=== PATIENT | female | born 1955 | race Caucasian/White ===

== ENCOUNTER → 2016-11-04 | Outpatient (CLI) | payer OTHER ==
[~2016-11-04] MED LIST: CYCL5TAB PO; FLV1 PO; GLC500 PO; HYDR-5688 PO; LEVO100T84 PO; LISI-461 PO; MTH25 PO; PRED-301 PO; PRM/625 PO; SPIR1TAB72 PO
[2016-11-04 08:42] LABS: INR 0.9 (0.9-1.1); PARTIAL THROMBOPLASTIN RATIO 0.8
[2016-11-04 08:58] LABS: BLOOD UREA NITROGEN 26 mg/dl (7-18); BUN/CREATININE RATIO 23.2 (10-20); CALCIUM 8.7 mg/dl (8.5-10.1); CARBON DIOXIDE 23 mmol/L (21-32); CHLORIDE 106 mmol/L (98-107); CHOLESTEROL 299 mg/dl (0-200); GLUCOSE 109 mg/dl (70-99); POTASSIUM 3.7 mmol/L (3.5-5.1); SODIUM 143 mmol/L (136-145)
[2016-11-04 09:08] LABS: HDL CHOLESTEROL 43 mg/dl; LDL CHOLESTEROL CALCULATED 192 mg/dl; TRIGLYCERIDES 322 mg/dl (0-150); VERY LOW DENSITY LIPOPROT CALC 64 mg/dl
== END | disposition home or self-care (01) ==
LOC: C.LAB 07:55
PROVIDERS: ATTEND Internal Medicine
DX: I10 Essential (primary) hypertension (principal); D64.9 Anemia, unspecified; R23.3 Spontaneous ecchymoses; E03.9 Hypothyroidism, unspecified; E11.9 Type 2 diabetes mellitus without complications; R60.0 Localized edema

== ENCOUNTER → 2017-07-10 | Outpatient (CLI) | payer OTHER ==
[~2017-07-10] MED LIST changes: +FLX10 PO; +GABA1CAP4 PO; -HYDR-5688 PO; +LEFL10TA PO; +LEVO100T7 PO; +LEVO1TAB35 PO; +LEVO88TA3 PO; +LSN20 PO; +MELO7.5T5 PO; +NRN600 PO; +SPR25 PO; +TPRSR/50 PO
[2017-07-10 14:30] LABS: HEMATOCRIT 40.3 % (37-47); MEAN CELL VOLUME 96.4 fL (80-100); MEAN CORPUSCULAR HEMOGLOBIN 31.3 pg (25-34); MEAN CORPUSCULAR HGB CONC 32.5 g/dl (32-36); MEAN PLATELET VOLUME 11.4 fL (7.4-10.4); PLATELET COUNT 276 K/uL (130-400); RED BLOOD COUNT 4.18 M/uL (4.2-5.4); WHITE BLOOD COUNT 16.68 K/uL (4.8-10.8)
[2017-07-10 15:00] LABS: BLOOD UREA NITROGEN 22 mg/dl (7-18); CALCIUM 8.9 mg/dl (8.5-10.1); CARBON DIOXIDE 24 mmol/L (21-32); CHLORIDE 106 mmol/L (98-107); CREATININE 0.92 mg/dl (0.60-1.20); GLUCOSE 125 mg/dl (70-99); POTASSIUM 3.5 mmol/L (3.5-5.1); SODIUM 140 mmol/L (136-145)
[2017-07-10 15:11] LABS: THYROID STIMULATING HORMONE 0.567 uIu/ml (0.300-4.500)
[2017-07-10 15:12] LABS: BASO % 0.2 %; BASO ABS # 0.04 K/uL (0-0.2); COMPLETE YES; EOS % 0.8 %; IG% 1.1 %; LYMPH % 11.7 %; LYMPH ABS # 1.95 K/uL (1.2-3.4); MONO % 3.8 %; NEUT % 82.4 %
== END | disposition home or self-care (01) ==
LOC: C.LAB1850 13:10
PROVIDERS: ATTEND Nurse Practitioner Adult Health
DX: D64.9 Anemia, unspecified (principal); R31.9 Hematuria, unspecified; R00.0 Tachycardia, unspecified; R30.0 Dysuria

== ENCOUNTER → 2017-07-15 | Outpatient (CLI) | payer OTHER ==
[2017-07-15 13:37] LABS: URINE APPEARANCE TURBID (CLEAR); URINE BILIRUBIN NEG (NEG); URINE COLOR YELLOW; URINE NITRITE POS (NEG); URINE PH 5.5 (4.5-7.5); URINE SPECIFIC GRAVITY 1.021 (1.000-1.030); UROBILINOGEN NEG (NEG)
[2017-07-15 13:39] LABS: MANUAL MICROSCOPIC REQUIRED? NO; REVIEW REQ? NO
[2017-07-15 15:11] LABS: ALB/GLOB RATIO 0.5 (0.9-2); ALKALINE PHOSPHATASE 111 U/L (45-117); ALT/SGPT 40 U/L (12-78); AST/SGOT 21 U/L (15-37); BLOOD UREA NITROGEN 29 mg/dl (7-18); BUN/CREATININE RATIO 15.5 (10-20); CALCIUM 9.2 mg/dl (8.5-10.1); CARBON DIOXIDE 20 mmol/L (21-32); CHLORIDE 103 mmol/L (98-107); GLUCOSE 363 mg/dl (70-99); POTASSIUM 3.7 mmol/L (3.5-5.1); SODIUM 135 mmol/L (136-145)
[2017-07-15 15:22] LABS: BETA-HYDROXYBUTYRATE 0.65 mg/dL (0.2-2.81)
== END | disposition home or self-care (01) ==
LOC: C.LABBC 12:04
PROVIDERS: ATTEND Internal Medicine
DX: Z51.81 Encounter for therapeutic drug level monitoring (principal); E11.9 Type 2 diabetes mellitus without complications; Z79.52 Long term (current) use of systemic steroids; R30.0 Dysuria

== ENCOUNTER 2017-07-16 19:10 | Inpatient (IN) | payer OTHER ==
[~2017-07-16] VITALS: Ht 170.2 cm; Wt 88.8 kg
[~2017-07-16 19:10] MED LIST changes: -FLX10 PO; -GABA1CAP4 PO; -LEFL10TA PO; -LEVO100T7 PO; -LEVO1TAB35 PO; -LEVO88TA3 PO; -LSN20 PO; -MELO7.5T5 PO; -NRN600 PO; -SPR25 PO; -TPRSR/50 PO
[2017-07-16] MEDS ORDERED: SODIUM CHLORIDE 0.9% 1000ML 1,000 ML IV STA ×3 (19:45→21:40)
[2017-07-16] MEDS ORDERED: PIPERACILLIN/TAZOBACTAM 3.375 GM/100ML D5W IV STA (19:49)
[2017-07-16] MEDS ORDERED: ACETAMINOPHEN 500 MG TAB PO STA (19:56)
[2017-07-16] MEDS ORDERED: PIPERACILL/TAZOBAC IV 3.375 GM in DEXTROSE 5% 100ML IV ONE (20:00)
--- NOTE | 2017-07-16 20:30 | DIAGNOSTIC IMAGING REPORT ---
CHEST ONE VIEW PORTABLE HISTORY: 62 years-old Female sepsis acute fever and sepsis COMPARISON: Chest radiograph 08/22/2015 TECHNIQUE: Portable upright AP view of the chest FINDINGS: Cardiac silhouette is within normal limits. There is no pneumothorax or pleural effusion. Subsegmental linear opacities of the left lung base appear unchanged. No lobar airspace consolidation. No overt pulmonary edema. The bones appear grossly intact. IMPRESSION: Subsegmental atelectasis or scarring of the left lung base is unchanged. No acute cardiopulmonary process. The above report was generated using voice recognition software. It may contain grammatical, syntax or spelling errors. Electronically signed by: Girish Cohen M.D. 07/16/2017 8:29 PM Dictated Date/Time: 07/16/2017 8:28 PM
[2017-07-16 20:45] LABS: HEMATOCRIT 33.9 % (37-47); MEAN CELL VOLUME 93.1 fL (80-100); MEAN CORPUSCULAR HEMOGLOBIN 29.4 pg (25-34); MEAN CORPUSCULAR HGB CONC 31.6 g/dl (32-36); MEAN PLATELET VOLUME 10.1 fL (7.4-10.4); PLATELET COUNT 143 K/uL (130-400); RED BLOOD COUNT 3.64 M/uL (4.2-5.4); WHITE BLOOD COUNT 11.11 K/uL (4.8-10.8)
[2017-07-16] MEDS ORDERED: LEVO88TA3 PO (20:53)
[2017-07-16] MEDS ORDERED: FLX10 PO (20:53)
[2017-07-16] MEDS ORDERED: LSN20 PO (20:53)
[2017-07-16] MEDS ORDERED: NRN600 PO (20:53)
[2017-07-16] MEDS ORDERED: SPR25 PO (20:53)
[2017-07-16] MEDS ORDERED: GABA1CAP4 PO (20:53)
[2017-07-16] MEDS ORDERED: LEVO100T7 PO (20:53)
[2017-07-16] MEDS ORDERED: MTH25 PO (20:53)
[2017-07-16] MEDS ORDERED: LEFL10TA PO (20:53)
[2017-07-16] MEDS ORDERED: MELO7.5T5 PO (20:53)
[2017-07-16] MEDS ORDERED: TPRSR/50 PO (20:53)
[2017-07-16] MEDS ORDERED: PRED-301 PO (20:53)
[2017-07-16 20:55] LABS: URINE APPEARANCE TURBID (CLEAR); URINE BILIRUBIN NEG (NEG); URINE COLOR YELLOW; URINE EPITHELIAL CELL AUTO 20-30 /lpf (0-5); URINE NITRITE POS (NEG); URINE PH 5.5 (4.5-7.5); URINE SPECIFIC GRAVITY 1.014 (1.000-1.030); UROBILINOGEN NEG (NEG)
[2017-07-16 21:00] LABS: PROTHROMBIN TIME (PATIENT) 10.6 SECONDS (9.0-12.0)
[2017-07-16 21:02] LABS: MANUAL MICROSCOPIC REQUIRED? NO; REVIEW REQ? NO
--- NOTE | 2017-07-16 21:06 | DIAGNOSTIC IMAGING REPORT ---
HEAD WITHOUT CONTRAST (CT) CLINICAL HISTORY: 62 years-old Female with headache. Acute headache. TECHNIQUE: Multiple axial CT images of the head were obtained without contrast. A dose lowering technique was utilized adhering to the principles of ALARA. CT DOSE: 537.48 mGy.cm COMPARISON: None. FINDINGS: No acute intracranial hemorrhage, midline shift, mass, large territorial ischemia or abnormal extra-axial collection. Senescent calcifications of the lentiform nuclei noted. The calvarium is intact. The mastoid air cells, and middle ear cavities are clear. Moderate mucoperiosteal thickening of the right maxillary sinus with mild ethmoid sinus disease is partially imaged. Soft tissues are unremarkable. IMPRESSION: 1. No acute intracranial abnormality identified. 2. Moderate mucoperiosteal thickening of the right maxillary sinus and mild ethmoid sinus disease. The above report was generated using voice recognition software. It may contain grammatical, syntax or spelling errors. Electronically signed by: Girish Cohen M.D. 07/16/2017 9:05 PM Dictated Date/Time: 07/16/2017 9:02 PM
[2017-07-16 21:09] LABS: ALT/SGPT 40 U/L (12-78); BLOOD UREA NITROGEN 30 mg/dl (7-18); BUN/CREATININE RATIO 14.8 (10-20); CALCIUM 8.7 mg/dl (8.5-10.1); CARBON DIOXIDE 22 mmol/L (21-32); CHLORIDE 104 mmol/L (98-107); GLUCOSE 213 mg/dl (70-99); POTASSIUM 3.7 mmol/L (3.5-5.1); SODIUM 135 mmol/L (136-145)
[2017-07-16 21:20] LABS: ALKALINE PHOSPHATASE 112 U/L (45-117); AST/SGOT 25 U/L (15-37)
--- NOTE | 2017-07-16 21:21 | DIAGNOSTIC IMAGING REPORT ---
ABD/PELVIS NO IV OR ORAL CONT HISTORY: 62 years-old Female recent uti, weakness acute weakness with recent urinary tract infection. COMPARISON: None available TECHNIQUE: Multiple axial CT images of the abdomen and pelvis were obtained without contrast. A dose lowering technique was used consistent with the principals of NICHOL. FINDINGS: Linear subsegmental bibasilar opacities suggest atelectasis/scarring. No pneumoperitoneum. Imaged inferior cardiac chambers are mildly enlarged with coronary arterial calcifications noted. Hepatomegaly with hepatic steatosis noted. The spleen, gallbladder and left adrenal gland are within normal limits. Punctate calcification of the lateral limb right adrenal gland suggests prior infection or hemorrhage. There is moderate diffuse pancreatic atrophy. Moderate nonspecific stranding surrounds the bilateral kidneys appears symmetric. Mild cortical thinning is seen to the left kidney. No renal calculi or hydronephrosis identified. There are phleboliths present within the pelvis. Urinary bladder is unremarkable. Prior hysterectomy. Moderate atherosclerotic plaquing of the abdominal aorta. No bulky retroperitoneal adenopathy. There is no bowel obstruction or focal bowel wall thickening. Colonic diverticulosis without diverticulitis. The appendix appears normal. Soft tissues are unremarkable. Severe multilevel facet arthropathy of the lower lumbar spine. The bones are osteopenic. IMPRESSION: 1. Moderate nonspecific perinephric inflammatory stranding without renal calculi or hydronephrosis. 2. No bowel obstruction or pneumoperitoneum. Normal appearance of the appendix. 3. Colonic diverticulosis without diverticulitis. 4. Hepatomegaly with hepatic steatosis. The above report was generated using voice recognition software. It may contain grammatical, syntax or spelling errors. Electronically signed by: Girish Cohen M.D. 07/16/2017 9:20 PM Dictated Date/Time: 07/16/2017 9:15 PM
[2017-07-16 21:53] LABS: BASO % 0.1 %; BASO ABS # 0.01 K/uL (0-0.2); COMPLETE YES; DOHLE BODIES 1+; EOS % 0.7 %; IG% 0.6 %; LYMPH % 5.4 %; MONO % 2.4 %; NEUT % 90.8 %; TOXIC GRANULATION 1+
--- NOTE | 2017-07-16 22:12 | EMERGENCY ROOM VISIT NOTE ---
History Report prepared by Stephany: Ulises Helm Under the Supervision of: Dr. Rosetta Kang D.O. First contact with patient: 19:21 Chief Complaint: OTHER COMPLAINT Stated Complaint: ILLNESS/POSS SEPSIS History of Present Illness The patient is a 62 year old female who presents to the Emergency Room by EMS with complaints of waxing and waning disorientation beginning six days ago. She was recently diagnosed with a UTI and was started on Macrobid six days ago. She states that she began feeling confused and weak a few days after starting the antibiotic. The patient states that she was seen by her PCP yesterday and was switched to Cipro. She states that her electrolytes were very abnormal yesterday , her blood sugar was in the 300's, and she was very hypertensive at this time. The patient's family notes that the patient was confused again when she saw her PCP yesterday. The patient notes that she has a history of rheumatoid arthritis for which she is chronically on Prednisone. She currently complains of headaches , chills and finger numbness. She states that her headaches began three days ago. The patient denies any nausea, abdominal pain, or back pain. Source of History: patient Onset: Six days ago Quality: other (disorientation) Timing: waxes/wanes Associated Symptoms: + chills, + headache, + numbness (fingers), No chest pain, No nausea, No abdominal pain Review of Systems See HPI for pertinent positives & negatives. A total of 10 systems reviewed and were otherwise negative. Past Medical & Surgical Medical Problems: (1) Left knee DJD (2) Rheumatoid arthritis Family History Cancer Hypertension Social History Smoking Status: Never Smoker Alcohol Use: none Drug Use: none Marital Status: Occupation Status: employed Current/Historical Medications Scheduled Cyclobenzaprine HCl (Cyclobenzaprine HCl), 1 TAB PO DAILY Folic Acid (Folic Acid), 1 MG PO 6XWK Gabapentin (Gabapentin), 1 CAP PO DAILY Gabapentin (Gabapentin), 1 TAB PO DAILY Leflunomide (Arava), 1 TAB PO DAILY Levothyroxine Sodium (Levothyroxine Sodium), 1 TAB PO Q2D Levothyroxine Sodium (Levothyroxine Sodium), 1 TAB PO Q2D Lisinopril (Lisinopril), 1 TAB PO DAILY Meloxicam (Mobic), 1 TAB PO DAILY Metformin HCl (Metformin HCl), 500 MG PO BID Methotrexate (Methotrexate), 1 DOSE PO UD Metoprolol Succinate (Metoprolol Succinate ER), 1 DOSE PO UD Prednisone (Prednisone), 1 TAB PO BID Spironolactone (Spironolactone), 1 TAB PO DAILY Allergies Coded Allergies: Tetracycline (Unverified Allergy, Severe, RASH ON FACE, 07/16/17) Statins (Verified Adverse Reaction, Intermediate, LE edema, 07/16/17) Physical Exam Vital Signs Date Time Temp Pulse Resp B/P (MAP) Pulse Ox O2 Delivery O2 Flow Rate FiO2 07/16/17 22:16 37.4 123 20 119/56 97 Room Air 07/16/17 21:18 38.4 126 20 136/73 Room Air 07/16/17 19:43 137 07/16/17 19:21 39.4 136 22 173/95 93 Room Air Physical Exam GENERAL: alert, ill-appearing, well nourished, no distress, non-toxic EYE EXAM: normal conjunctiva, PERRL and EOM's grossly intact OROPHARYNX: no exudate, no erythema, lips, buccal mucosa, and tongue normal and mucous membranes are dry. NECK: supple, no nuchal rigidity, no adenopathy, non-tender LUNGS: Clear to auscultation. Normal chest wall mechanics HEART: no murmurs, S1 normal and S2 normal ABDOMEN: abdomen soft, non-tender, normo-active bowel sounds, no masses, no rebound or guarding. BACK: Back is symmetrical on inspection and there is no deformity, no midline tenderness, no CVA tenderness. SKIN: no rashes and no bruising UPPER EXTREMITIES: upper extremities are grossly normal. LOWER EXTREMITIES: No pitting edema. NEURO EXAM: Normal sensorium, cranial nerves II-XII grossly intact, normal speech, no gross weakness of arms, no gross weakness of legs. Medical Decision & Procedures ER Provider Diagnostic Interpretation: Radiology results have been interpreted by the radiologist and reviewed by me. HEAD WITHOUT CONTRAST (CT) FINDINGS: No acute intracranial hemorrhage, midline shift, mass, large territorial ischemia or abnormal extra-axial collection. Senescent calcifications of the lentiform nuclei noted. The calvarium is intact. The mastoid air cells, and middle ear cavities are clear. Moderate mucoperiosteal thickening of the right maxillary sinus with mild ethmoid sinus disease is partially imaged. Soft tissues are unremarkable. IMPRESSION: 1. No acute intracranial abnormality identified. 2. Moderate mucoperiosteal thickening of the right maxillary sinus and mild ethmoid sinus disease. The above report was generated using voice recognition software. It may contain grammatical, syntax or spelling errors. Electronically signed by: Girish Cohen M.D. 07/16/2017 9:05 PM ABD/PELVIS NO IV OR ORAL CONT FINDINGS: Linear subsegmental bibasilar opacities suggest atelectasis/scarring. No pneumoperitoneum. Imaged inferior cardiac chambers are mildly enlarged with coronary arterial calcifications noted. Hepatomegaly with hepatic steatosis noted. The spleen, gallbladder and left adrenal gland are within normal limits. Punctate calcification of the lateral limb right adrenal gland suggests prior infection or hemorrhage. There is moderate diffuse pancreatic atrophy. Moderate nonspecific stranding surrounds the bilateral kidneys appears symmetric. Mild cortical thinning is seen to the left kidney. No renal calculi or hydronephrosis identified. There are phleboliths present within the pelvis. Urinary bladder is unremarkable. Prior hysterectomy. Moderate atherosclerotic plaquing of the abdominal aorta. No bulky retroperitoneal adenopathy. There is no bowel obstruction or focal bowel wall thickening. Colonic diverticulosis without diverticulitis. The appendix appears normal. Soft tissues are unremarkable. Severe multilevel facet arthropathy of the lower lumbar spine. The bones are osteopenic. IMPRESSION: 1. Moderate nonspecific perinephric inflammatory stranding without renal calculi or hydronephrosis. 2. No bowel obstruction or pneumoperitoneum. Normal appearance of the appendix. 3. Colonic diverticulosis without diverticulitis. 4. Hepatomegaly with hepatic steatosis. The above report was generated using voice recognition software. It may contain grammatical, syntax or spelling errors. Electronically signed by: Girish Cohen M.D. 07/16/2017 9:20 PM CHEST ONE VIEW PORTABLE FINDINGS: Cardiac silhouette is within normal limits. There is no pneumothorax or pleural effusion. Subsegmental linear opacities of the left lung base appear unchanged. No lobar airspace consolidation. No overt pulmonary edema. The bones appear grossly intact. IMPRESSION: Subsegmental atelectasis or scarring of the left lung base is unchanged. No acute cardiopulmonary process. The above report was generated using voice recognition software. It may contain grammatical, syntax or spelling errors. Electronically signed by: Girish Cohen M.D. 07/16/2017 8:29 PM Laboratory Results Test 07/16/17 20:11 07/16/17 20:34 07/16/17 20:35 Dohle Bodies 1+ Prothrombin Time 10.6 SECONDS (9.0-12.0) Prothromb Time International Ratio 1.0 (0.9-1.1) Total Bilirubin 0.5 mg/dl (0.2-1) Direct Bilirubin 0.3 mg/dl (0-0.2) Aspartate Amino Transf (AST/SGOT) 25 U/L (15-37) Alanine Aminotransferase (ALT/SGPT) 40 U/L (12-78) Alkaline Phosphatase 112 U/L (45-117) Troponin I < 0.015 ng/ml (0-0.045) Total Protein 6.6 gm/dl (6.4-8.2) Albumin 2.2 gm/dl (3.4-5.0) Thyroid Stimulating Hormone (TSH) 2.030 uIu/ml (0.300-4.500) Urine Color YELLOW Urine Appearance TURBID (CLEAR) Urine pH 5.5 (4.5-7.5) Urine Specific [place] 1.014 (1.000-1.030) Urine Protein 2+ (NEG) Urine Glucose (UA) NEG (NEG) Urine Ketones NEG (NEG) Urine Occult Blood 3+ (NEG) Urine Nitrite POS (NEG) Urine Bilirubin NEG (NEG) Urine Urobilinogen NEG (NEG) Urine Leukocyte Esterase LARGE (NEG) Urine WBC (Auto) >30 /hpf (0-5) Urine RBC (Auto) 10-30 /hpf (0-4) Urine Hyaline Casts (Auto) 0 /lpf (0-5) Urine Epithelial Cells (Auto) 20-30 /lpf (0-5) Urine Bacteria (Auto) 4+ (NEG) Bedside Lactic Acid Venous 1.56 mmol/L (0.90-1.70) Laboratory results per my review. Medications Administered Medications (Trade) Dose Ordered Sig/Melissa Route Start Time Stop Time Status Last Admin Dose Admin Sodium Chloride 1,000 ml @ 999 mls/hr Q1H1M STAT IV 07/16/17 19:45 07/16/17 20:45 DC 07/16/17 19:45 999 MLS/HR Sodium Chloride 1,000 ml @ 999 mls/hr Q1H1M STAT IV 07/16/17 19:49 07/16/17 20:49 DC 07/16/17 21:08 999 MLS/HR Piperacillin Sod/ Tazobactam Sod 3.375 gm/Dextrose 115 ml @ 230 mls/hr NOW ONCE IV 07/16/17 20:00 07/16/17 20:29 DC 07/16/17 21:08 230 MLS/HR Acetaminophen (Tylenol Tab) 1,000 mg NOW STAT PO 07/16/17 19:56 07/16/17 19:57 DC 07/16/17 20:42 1,000 MG Sodium Chloride 1,000 ml @ 999 mls/hr Q1H1M STAT IV 07/16/17 21:40 07/16/17 22:40 DC 07/16/17 21:40 999 MLS/HR ECG Indication: altered mental status Rate (beats per minute): 138 Rhythm: sinus tachycardia Findings: PAC (occasional), no acute ischemic change, no ectopy, other (Normal axis. Normal intervals. ) ED Course 1934: The patient was evaluated in room B7. A complete history and physical exam was performed. 1944: Ordered Sodium Chloride 1000 ml @ 999 mls/hr IV, Sodium Chloride 1000 ml @ 999 mls/hr IV. 1955: Ordered Tylenol Tab 1000 mg PO. 1999: Ordered Piperacillin Sod/Tazobactam Sod 3.375 gm/Dextrose 115 mL @ 230 mL/ hr IV. 2139: Ordered Sodium Chloride 1000 ml @ 999 mls/hr IV. 2205: Upon reevaluation, the patient is resting comfortably. I discussed the findings and the treatment plan with the patient. She expresses agreement and understanding. I spoke with Dr. Jane of the [facility] Hospitalist Service. The patient will be evaluated for further management. Medical Decision Differential diagnosis: Etiologies such as sepsis, UTI, pneumonia, metabolic, electrolyte abnormalities , cardiac sources, intracerebral event, toxicologic, neurologic, as well as others were entertained. Review of EMR shows urine culture from 07/15/2017 grew out E. Coli. No sensitivities yet. Pt likely with partially or inadequately treated outpt UTI which progressed leading to presentation of likely sepsis. Pt cultured and started on IV antibiotics. Lactate and WBC reassuring. Pt felt improved and HR improved with IVF. Pt not hypotensive. Hyperglycemia likely secondary to stress of infection, no DKA. ARF likely from UTI and sepsis, no evidence of obstructive process on CT. No evidence of fulminant pyelonephritis. Pt aware of all results. No other source of infection found on CXR and no other GI symptoms. Medication Reconcilliation Current Medication List: was personally reviewed by me Blood Pressure Screening Patient's blood pressure: Elevated blood pressure Blood pressure disposition: Referred to PCP Consults Time Called: 2204 Consulting Physician: Dr. Lucinda GRANADOS Returned Call: [phone] I reviewed the patient's case with Lucinda Holbrook. DWAYNE will evaluate the patient for further management. Impression Primary Impression: Sepsis Additional Impressions: UTI (urinary tract infection) Acute renal failure Hyperglycemia Critical Care I have personally spent 35 minutes of critical care time in the direct management of this patient. This includes bedside care, interpretation of diagnostic studies, and testing, discussion with consultants, patient, and family members, and other required patient management activities. This 35 minutes is in excess of all separately billable procedures. Scribe Attestation The scribe's documentation has been prepared under my direction and personally reviewed by me in its entirety. I confirm that the note above accurately reflects all work, treatment, procedures, and medical decision making performed by me. Departure Information Dispostion Being Evaluated By Hospitalist Referrals Corby Arzola M.D. (PCP) Patient Instructions My [facility] Problem Qualifiers Primary Impression: Sepsis Sepsis type: sepsis due to unspecified organism Qualified Codes: A41.9 - Sepsis, unspecified organism Additional Impressions: UTI (urinary tract infection) Urinary tract infection type: acute cystitis Hematuria presence: with hematuria Qualified Codes: N30.01 - Acute cystitis with hematuria Acute renal failure Acute renal failure type: unspecified Qualified Codes: N17.9 - Acute kidney failure, unspecified
[2017-07-16] MEDS ORDERED: POLYETHYLENE (MIRALAX) 17 GM PACK PO PRN (22:45)
[2017-07-16] MEDS ORDERED: ONDANSETRON INJ 2 MG/ML 2 ML VIAL IV PRN (22:45)
[2017-07-16] MEDS ORDERED: ALUMINUM/MAGNESIUM/SIMETH (MAALOX MAX) 30 ML UDC PO PRN (22:45)
[2017-07-16] MEDS ORDERED: MAGNESIUM HYDROXIDE SUSP 30 ML UDC PO PRN (22:45)
--- NOTE | 2017-07-16 22:54 | Family Medicine Progress Note ---
Progress Note Date of Service Jul 16, 2017.
--- NOTE | 2017-07-16 22:54 | History and Physical ---
History & Physical Date & Time of Service: Jul 16, 2017 at 22:54 Chief Complaint: Illness/Poss Sepsis Primary Care Physician: Corby Arzola M.D. History of Present Illness Source: patient The patient is a 62-year-old lady who has a previous history of rheumatoid arthritis, type 2 diabetes, hypertension, hypothyroidism and peripheral neuropathy who presents to the emergency department for worsening urinary symptoms. The patient states that she was diagnosed with urinary tract infection one week ago. She was prescribed Macrobid. However she states that she did not take it as directed because she states that she felt "loopy" and reported getting a headache with the Macrobid. She did go back to see her PCP 2 days for follow- up and had an alternative antibiotic prescribed, but she states that she never went to pick it up. Since then she's had increasing headaches, dizziness, lightheadedness. She does note urinary frequency and small flecks of blood in the urine, but denies any overt dysuria. She does report a very mild suprapubic pressure type sensation, that does not radiate to the back of the flanks. She denies any GI symptoms including nausea, vomiting, diarrhea or constipation. Her appetite has been significantly lower for the past 1-2 days. She does report chills and rigors, but has not measured a temperature. On arrival in the ED, she was found to be both tachycardic as well as febrile. She was given 2 L normal saline bolus, and has a third liter running currently. She was given a dose of IV Zosyn, with blood cultures being drawn prior to administration of the antibiotic. She states that this time that she is feeling slightly better. She is being admitted for evaluation management of sepsis secondary to urinary tract infection. Past Medical/Surgical History Rheumatoid arthritis Hypertension Diabetes Hypothyroidism Peripheral neuropathy Surgery History of left knee replacement Family History Cancer Hypertension Type 2 diabetes Lymphoma Social History Smoking Status: Never Smoker Smokeless Tobacco Use: No Alcohol Use: none Drug Use: none Marital Status: Housing status: lives with significant other Occupational Status: employed Immunizations History of Influenza Vaccine: Unknown History of Tetanus Vaccine?: Unknown History of Pneumococcal: Unknown History of Hepatitis B Vaccine: Unknown Multi-Drug Resistant Organisms History of MDRO: No Allergies Coded Allergies: Tetracycline (Unverified Allergy, Severe, RASH ON FACE, 07/16/17) Statins (Verified Adverse Reaction, Intermediate, LE edema, 07/16/17) Home Medications Scheduled Cyclobenzaprine HCl (Cyclobenzaprine HCl), 1 TAB PO DAILY Folic Acid (Folic Acid), 1 MG PO 6XWK Gabapentin (Gabapentin), 1 CAP PO DAILY Gabapentin (Gabapentin), 1 TAB PO DAILY Leflunomide (Arava), 1 TAB PO DAILY Levothyroxine Sodium (Levothyroxine Sodium), 1 TAB PO Q2D Levothyroxine Sodium (Levothyroxine Sodium), 1 TAB PO Q2D Lisinopril (Lisinopril), 1 TAB PO DAILY Meloxicam (Mobic), 1 TAB PO DAILY Metformin HCl (Metformin HCl), 500 MG PO BID Methotrexate (Methotrexate), 1 DOSE PO UD Metoprolol Succinate (Metoprolol Succinate ER), 1 DOSE PO UD Prednisone (Prednisone), 1 TAB PO BID Spironolactone (Spironolactone), 1 TAB PO DAILY Review of Systems A 10 point review of systems was negative unless stated above. Physical Exam Vital Signs Date Time Temp Pulse Resp B/P (MAP) Pulse Ox O2 Delivery O2 Flow Rate FiO2 07/16/17 22:16 37.4 123 20 119/56 97 Room Air 07/16/17 21:18 38.4 126 20 136/73 Room Air 07/16/17 19:43 137 07/16/17 19:21 39.4 136 22 173/95 93 Room Air General Appearance: WD/WN, no apparent distress, + mild distress Eyes: normal inspection, EOMI ENT: hearing grossly normal, pharynx normal Neck: supple, no adenopathy, no JVD Respiratory/Chest: lungs clear, no respiratory distress Cardiovascular: regular rate, rhythm, no gallop, no murmur Abdomen/GI: normal bowel sounds, non tender, soft, + pertinent finding (mild pressure to suprapubic palpation) Back: no CVA tenderness, no muscle spasm Extremities/Musculoskelatal: no calf tenderness, no pedal edema Neurologic/Psych: alert, normal mood/affect, oriented x 3 Skin: normal color, warm/dry, no rash Lymphatic: no adenopathy Diagnostics Laboratory Results Results Past 24 Hours Test 07/16/17 19:20 07/16/17 20:11 07/16/17 20:34 07/16/17 20:35 Range/Units Bedside Glucose 204 70-90 mg/dl White Blood Count 11.11 4.8-10.8 K/uL Red Blood Count 3.64 4.2-5.4 M/uL Hemoglobin 10.7 12.0-16.0 g/dL Hematocrit 33.9 37-47 % Mean Corpuscular Volume 93.1 80-100 fL Mean Corpuscular Hemoglobin 29.4 25-34 pg Mean Corpuscular Hemoglobin Concent 31.6 32-36 g/dl Platelet Count 143 130-400 K/uL Mean Platelet Volume 10.1 7.4-10.4 fL Neutrophils (%) (Auto) 90.8 % Lymphocytes (%) (Auto) 5.4 % Monocytes (%) (Auto) 2.4 % Eosinophils (%) (Auto) 0.7 % Basophils (%) (Auto) 0.1 % Neutrophils # (Auto) 10.08 1.4-6.5 K/uL Lymphocytes # (Auto) 0.60 1.2-3.4 K/uL Monocytes # (Auto) 0.27 0.11-0.59 K/uL Eosinophils # (Auto) 0.08 0-0.5 K/uL Basophils # (Auto) 0.01 0-0.2 K/uL RDW Standard Deviation 51.2 36.4-46.3 fL RDW Coefficient of Variation 15.2 11.5-14.5 % Immature Granulocyte % (Auto) 0.6 % Immature Granulocyte # (Auto) 0.07 0.00-0.02 K/uL Toxic Granulation 1+ Dohle Bodies 1+ Prothrombin Time 10.6 9.0-12.0 SECONDS Prothromb Time International Ratio 1.0 0.9-1.1 Sodium Level 135 136-145 mmol/L Potassium Level 3.7 3.5-5.1 mmol/L Chloride Level 104 98-107 mmol/L Carbon Dioxide Level 22 21-32 mmol/L Anion Gap 9.0 3-11 mmol/L Blood Urea Nitrogen 30 7-18 mg/dl Creatinine 2.00 0.60-1.20 mg/dl Est Creatinine Clear Calc Drug Dose 33.1 ml/min Estimated GFR () 30.2 Estimated GFR (Non- 26.1 BUN/Creatinine Ratio 14.8 10-20 Random Glucose 213 70-99 mg/dl Calcium Level 8.7 8.5-10.1 mg/dl Total Bilirubin 0.5 0.2-1 mg/dl Direct Bilirubin 0.3 0-0.2 mg/dl Aspartate Amino Transf (AST/SGOT) 25 15-37 U/L Alanine Aminotransferase (ALT/SGPT) 40 12-78 U/L Alkaline Phosphatase 112 45-117 U/L Troponin I < 0.015 0-0.045 ng/ml Total Protein 6.6 6.4-8.2 gm/dl Albumin 2.2 3.4-5.0 gm/dl Thyroid Stimulating Hormone (TSH) 2.030 0.300-4.500 uIu/ml Urine Color YELLOW Urine Appearance TURBID CLEAR Urine pH 5.5 4.5-7.5 Urine Specific [place] 1.014 1.000-1.030 Urine Protein 2+ NEG Urine Glucose (UA) NEG NEG Urine Ketones NEG NEG Urine Occult Blood 3+ NEG Urine Nitrite POS NEG Urine Bilirubin NEG NEG Urine Urobilinogen NEG NEG Urine Leukocyte Esterase LARGE NEG Urine WBC (Auto) >30 0-5 /hpf Urine RBC (Auto) 10-30 0-4 /hpf Urine Hyaline Casts (Auto) 0 0-5 /lpf Urine Epithelial Cells (Auto) 20-30 0-5 /lpf Urine Bacteria (Auto) 4+ NEG Bedside Lactic Acid Venous 1.56 0.90-1.70 mmol/L Microbiology Results 07/16/17 Blood Culture, Received Pending 07/16/17 Blood Culture, Received Pending 07/16/17 Urine Culture, Received Pending Diagnostic Radiology ABD/PELVIS NO IV OR ORAL CONT HISTORY: 62 years-old Female recent uti, weakness acute weakness with recent urinary tract infection. COMPARISON: None available TECHNIQUE: Multiple axial CT images of the abdomen and pelvis were obtained without contrast. A dose lowering technique was used consistent with the principals of ALARA. FINDINGS: Linear subsegmental bibasilar opacities suggest atelectasis/scarring. No pneumoperitoneum. Imaged inferior cardiac chambers are mildly enlarged with coronary arterial calcifications noted. Hepatomegaly with hepatic steatosis noted. The spleen, gallbladder and left adrenal gland are within normal limits. Punctate calcification of the lateral limb right adrenal gland suggests prior infection or hemorrhage. There is moderate diffuse pancreatic atrophy. Moderate nonspecific stranding surrounds the bilateral kidneys appears symmetric. Mild cortical thinning is seen to the left kidney. No renal calculi or hydronephrosis identified. There are phleboliths present within the pelvis. Urinary bladder is unremarkable. Prior hysterectomy. Moderate atherosclerotic plaquing of the abdominal aorta. No bulky retroperitoneal adenopathy. There is no bowel obstruction or focal bowel wall thickening. Colonic diverticulosis without diverticulitis. The appendix appears normal. Soft tissues are unremarkable. Severe multilevel facet arthropathy of the lower lumbar spine. The bones are osteopenic. IMPRESSION: 1. Moderate nonspecific perinephric inflammatory stranding without renal calculi or hydronephrosis. 2. No bowel obstruction or pneumoperitoneum. Normal appearance of the appendix. 3. Colonic diverticulosis without diverticulitis. 4. Hepatomegaly with hepatic steatosis. The above report was generated using voice recognition software. It may contain grammatical, syntax or spelling errors. Electronically signed by: Girish Cohen M.D. 07/16/2017 9:20 PM Dictated Date/Time: 07/16/2017 9:15 PM Impression Assessment and Plan 62-year-old female, with sepsis secondary to a UTI this failed outpatient therapy. In addition to that she has an AISHWARYA, for both urinary tract infection as well as dehydration. She'll be admitted for intravenous IV antibiotics, fluid resuscitation until blood cultures and urine cultures are available Sepsis 2/2 UTI with failed outpatient therapy. Our plan for her is as follows Sepsis in the setting of urinary tract infection - Lactate 1.5 on arrival; repeat in 6 hours - 3 L NSS given in the ED - Continue with NSS + 20 KCl at 150 ml/hr overnight - Blood and cultures pending - Vancomycin + Zosyn overnight, pending cultures Rheumatoid Arthritis - Continue Methotrexate q Saturdays - Continue Leflunomide - Prednisone 5 mg chronically: this has been held Stress dose steroids given: Hydrocortisone 50 mg TID x 3 days Hypertension - Patient apparently started on Toprol XL 50 mg daily 1 day ago for blood pressure; this was in 2 days ago at her PCPs office - Will hold in acute setting of sepsis and monitor BP overnight; can be added in as needed if blood pressure is not controlled - Hold Lisinopril due to AISHWARYA - Hold Spironolactone due to AISHWARYA Hypothyroidism - Continue Levothyroxine Type 2 Diabetes Mellitus - Hold Metformin - Insulin SSI with AC/HS checks - Type 2 diabetic diet DVT Prophylaxis - SCD Knee, SHANNON Hose - Heparin 5000 U s.c. TID Code Status - Level I Full Code Disposition - Telemetry Attending Addendum: I have physically seen and examined this patient, have directed the resident's medical activities, and agree with the H&P as noted above with the following exceptions as noted. The patient is awake, alert and oriented 3, well-developed and well-nourished , normocephalic and atraumatic, lying in bed and in no acute distress. HEENT--PERRL, EOMI, mucous membranes and oropharynx dry. Neck--supple, no JVD or bruits, thyroid normal, trachea midline, no adenopathy. Heart--normal S1 and S2, no extra beats, no murmurs, rubs or gallops. Lungs--clear bilaterally with good air movement, no respiratory distress, no accessory muscle use. Abdomen--normal bowel sounds and soft, mild suprapubic tenderness, nondistended , no hernias or masses, no organomegaly. Extremities--no cyanosis, clubbing or edema. There are good distal pulses b/l. Dermatologic--normal skin turgor, normal color, warm and dry, no abnormal lymph nodes, no rash. Neurologic--cranial nerves II through XII grossly intact. Rheumatologic--normal range of motion, nontender, muscles and joints. Psychiatric--normal affect. Assessment and Plan: Sepsis secondary to urinary tract infection-- Vancomycin IV and Zosyn IV. Follow urine culture and sensitivities. Received 3 L normal saline in the ED. NSS with KCl 20 mEq at 150 ML's per hour. Rheumatoid arthritis-- Patient is told to hold methotrexate which she is due for this Friday, and discuss with her board runner today to resume. Continue leflunomide. Hold prednisone. Hydrocortisone 50 mg IV 3 times a day for stress dose. Hypertension-- hold metoprolol succinate, lisinopril and spironolactone. Diabetes mellitus-- Hold metformin Place on Accu-Cheks before meals and at bedtime with NovoLog coverage per scale. Level of Care Telemetry Advanced Directives Existing Advance Directive: No Existing Living Will: No Existing Power of Mitering Machine Operator: No Resuscitation Status FULL RESUSCITATION VTE Prophylaxis VTE Risk Assessment Done? Y/N: Yes Risk Level: Moderate Given or contraindicated: Unfractionated heparin SQ Social Service Consult None Apply
[2017-07-17] VITALS (10 sets, daily range): BP systolic 133–169; BP diastolic 68–97; PULSE 88–102; TEMP 36.5–37.5; O2SAT 92–97; Ht 170.2 cm; Wt 88.8 kg
[2017-07-17] MEDS ORDERED: VANCOMYCIN INJ 2,000 MG in SODIUM CHLORIDE 0.9% 500ML 500 ML IV SCH ×2
[2017-07-17] MEDS: NSS + 20MEQ KCL 1000ML 1,000 ML IV SCH ×4 (00:07→20:09)
[2017-07-17] MEDS: HYDROCORTISONE IV 50 MG in SYRINGE 0 ML IV SCH ×2 (00:08→09:06)
[2017-07-17] MEDS ORDERED: VANCOMYCIN CONSULT ACTIVE PRN (01:15)
[2017-07-17] MEDS ORDERED: PIPERACILL/TAZOBAC CONSULT ACTIVE PRN (01:15)
[2017-07-17] MEDS ORDERED: PIPERACILL/TAZOBAC IV 3.375 GM in DEXTROSE 5% 100ML 100 ML IV SCH (02:00)
[2017-07-17] MEDS: HEPARIN SOD 5000 UNIT/0.5 ML CARP SQ SCH ×3 (06:00→20:13)
[2017-07-17] MEDS ORDERED: LEVOTHYROXINE 88 MCG TAB PO SCH (06:30)
[2017-07-17 07:36] LABS: HEMATOCRIT 31.1 % (37-47); MEAN CORPUSCULAR HEMOGLOBIN 30.2 pg (25-34); MEAN CORPUSCULAR HGB CONC 32.2 g/dl (32-36); MEAN PLATELET VOLUME 9.9 fL (7.4-10.4); PLATELET COUNT 105 K/uL (130-400); RED BLOOD COUNT 3.31 M/uL (4.2-5.4); WHITE BLOOD COUNT 11.05 K/uL (4.8-10.8)
[2017-07-17] MEDS: CYCLOBENZAPRINE HCL 10 MG TAB PO SCH (07:51)
[2017-07-17] MEDS: GABAPENTIN 300 MG CAP PO SCH ×2 (07:52→08:10)
[2017-07-17 08:11] LABS: BUN/CREATININE RATIO 14.6 (10-20); CREATININE 1.9 mg/dl (0.60-1.20); POTASSIUM 4.6 mmol/L (3.5-5.1)
[2017-07-17 08:22] LABS: BETA-HYDROXYBUTYRATE 4.74 mg/dL (0.2-2.81)
--- NOTE | 2017-07-17 08:28 | Family Medicine Progress Note ---
Progress Note Date of Service Jul 17, 2017. Subjective Pt evaluation today including: conversation w/ patient, physical exam, chart review, review of studies, review of inpatient medication list Pain: No pain reported PO Intake: Tolerating PO intake Voiding: no voiding problems Ms. Champagne reports that she is feeling well today. She denies any abdominal or flank pain, dysuria, or urgency. She stated that she had what she describes as abdominal pressure, blood in her urine, and chills at home, which is why she came in to the hospital. She states she does not have a history of UTIs. Constitutional: No fever, No chills, No sweats, No weight loss Respiratory: No cough, No sputum, No wheezing, No shortness of breath, No dyspnea on exertion Cardiovascular: No chest pain, No orthopnea, No PND, No claudication Abdomen: No pain, No nausea, No vomiting, No diarrhea Female : + hematuria, No dysuria, No urinary frequency All Other Systems: Reviewed and Negative Medications Current Inpatient Medications Medications (Trade) Dose Ordered Sig/Melissa Route Start Time Stop Time Status Last Admin Dose Admin Heparin Sodium (Porcine) (Heparin Sq 5000 Unit/0.5ml) 5,000 unit Q8H SQ 07/17/17 06:00 08/16/17 05:59 07/17/17 14:06 5,000 UNIT Acetaminophen (Tylenol Tab) 650 mg Q4H PRN PO 07/16/17 22:45 08/15/17 22:44 Al Hydrox/Mg Hydrox/Simethicone (Maalox Max Susp) 15 ml Q4H PRN PO 07/16/17 22:45 08/15/17 22:44 Magnesium Hydroxide (Milk Of Magnesia Susp) 30 ml Q6H PRN PO 07/16/17 22:45 08/15/17 22:44 Polyethylene (Miralax Powder Packet) 17 gm DAILY PRN PO 07/16/17 22:45 08/15/17 22:44 Ondansetron HCl (Zofran Inj) 4 mg Q6H PRN IV 07/16/17 22:45 08/15/17 22:44 Potassium Chloride/Sodium Chloride 1,000 ml @ 150 mls/hr Q6H40M IV 07/16/17 23:45 08/15/17 23:44 07/17/17 13:00 150 MLS/HR Cyclobenzaprine HCl (Flexeril Tab) 10 mg DAILY PO 07/17/17 09:00 08/16/17 08:59 07/17/17 07:51 10 MG Folic Acid (Folvite Tab) 1 mg DAILY PO 07/17/17 09:00 08/16/17 08:59 07/17/17 07:51 1 MG Levothyroxine Sodium (Synthroid Tab) 88 mcg Q2D@0630 PO 07/17/17 06:30 08/16/17 06:29 07/17/17 06:00 88 MCG Levothyroxine Sodium (Synthroid Tab) 100 mcg Q2D@0630 PO 07/18/17 06:30 08/17/17 06:29 Miscellaneous Information (Order Awaiting Action) 1 ea QS N/A 07/17/17 08:00 08/16/17 07:59 Miscellaneous Information (Order Awaiting Action) 1 ea QS N/A 07/17/17 08:00 08/16/17 07:59 Gabapentin (Neurontin Tab) 600 mg HS PO 07/17/17 21:00 08/16/17 08:59 Insulin Glargine (Lantus Solostar Pen) 10 units Q12 SC 07/17/17 09:00 08/16/17 08:59 07/17/17 09:23 10 UNITS Insulin Aspart (novoLOG ASPART) SLIDING SCALE If C... ACHS SC 07/17/17 11:00 08/16/17 10:59 07/17/17 12:32 7 UNITS Glucose (Glucose 40% Gel) 15-30 GRAMS 15 GRAMS... UD PRN PO 07/17/17 08:30 08/16/17 08:29 Glucose (Glucose Chew Tab) 4-8 Tablets 4 Tabl... UD PRN PO 07/17/17 08:30 08/16/17 08:29 Dextrose (Dextrose 50% 50ML Syringe) 25-50ML OF 50% DW IV FOR... UD PRN IV 07/17/17 08:30 08/16/17 08:29 Glucagon (Glucagon Inj) 1 mg UD PRN SQ 07/17/17 08:30 08/16/17 08:29 Ceftriaxone Sodium 1 gm/ Dextrose 50 ml @ 100 mls/hr Q24H IV 07/17/17 09:00 07/27/17 08:44 07/17/17 09:22 100 MLS/HR Prednisone (PredniSONE TAB) 5 mg BID PO 07/17/17 21:00 08/16/17 20:59 Metoprolol Succinate (Toprol Xl Tab) 25 mg QAM PO 07/18/17 09:00 08/17/17 08:59 Objective Vital Signs Date Time Temp Pulse Resp B/P (MAP) Pulse Ox O2 Delivery O2 Flow Rate FiO2 07/17/17 15:11 36.6 88 22 144/83 (103) 95 Room Air 07/17/17 12:00 96 Room Air 07/17/17 11:11 36.8 92 20 149/91 (110) 96 Room Air 07/17/17 09:49 95 Room Air 07/17/17 08:00 96 Room Air 07/17/17 07:23 Room Air 07/17/17 07:09 37.0 95 16 133/92 (106) 96 Nasal Cannula 07/17/17 04:00 36.5 99 20 138/86 (103) 95 2.0 07/17/17 04:00 Nasal Cannula 2.0 07/17/17 01:09 37.5 97 18 137/68 97 Nasal Cannula 2.0 07/16/17 22:16 37.4 123 20 119/56 97 Room Air 07/16/17 21:18 38.4 126 20 136/73 Room Air 07/16/17 19:43 137 07/16/17 19:21 39.4 136 22 173/95 93 Room Air Physical Exam General Appearance: WD/WN, no apparent distress Respiratory/Chest: chest non-tender, lungs clear, normal breath sounds, no respiratory distress, no accessory muscle use Cardiovascular: regular rate, rhythm, no edema, no gallop, no JVD, no murmur Abdomen: normal bowel sounds, non tender, soft, no organomegaly, no pulsatile mass, + pertinent finding (no flank tenderness) Laboratory Results Last 24 Hours Test 07/16/17 19:20 07/16/17 20:11 07/16/17 20:34 07/16/17 20:35 Bedside Glucose 204 mg/dl White Blood Count 11.11 K/uL Red Blood Count 3.64 M/uL Hemoglobin 10.7 g/dL Hematocrit 33.9 % Mean Corpuscular Volume 93.1 fL Mean Corpuscular Hemoglobin 29.4 pg Mean Corpuscular Hemoglobin Concent 31.6 g/dl Platelet Count 143 K/uL Mean Platelet Volume 10.1 fL Neutrophils (%) (Auto) 90.8 % Lymphocytes (%) (Auto) 5.4 % Monocytes (%) (Auto) 2.4 % Eosinophils (%) (Auto) 0.7 % Basophils (%) (Auto) 0.1 % Neutrophils # (Auto) 10.08 K/uL Lymphocytes # (Auto) 0.60 K/uL Monocytes # (Auto) 0.27 K/uL Eosinophils # (Auto) 0.08 K/uL Basophils # (Auto) 0.01 K/uL RDW Standard Deviation 51.2 fL RDW Coefficient of Variation 15.2 % Immature Granulocyte % (Auto) 0.6 % Immature Granulocyte # (Auto) 0.07 K/uL Toxic Granulation 1+ Dohle Bodies 1+ Prothrombin Time 10.6 SECONDS Prothromb Time International Ratio 1.0 Sodium Level 135 mmol/L Potassium Level 3.7 mmol/L Chloride Level 104 mmol/L Carbon Dioxide Level 22 mmol/L Anion Gap 9.0 mmol/L Blood Urea Nitrogen 30 mg/dl Creatinine 2.00 mg/dl Est Creatinine Clear Calc Drug Dose 33.1 ml/min Estimated GFR () 30.2 Estimated GFR (Non- 26.1 BUN/Creatinine Ratio 14.8 Random Glucose 213 mg/dl Calcium Level 8.7 mg/dl Total Bilirubin 0.5 mg/dl Direct Bilirubin 0.3 mg/dl Aspartate Amino Transf (AST/SGOT) 25 U/L Alanine Aminotransferase (ALT/SGPT) 40 U/L Alkaline Phosphatase 112 U/L Troponin I < 0.015 ng/ml Total Protein 6.6 gm/dl Albumin 2.2 gm/dl Thyroid Stimulating Hormone (TSH) 2.030 uIu/ml Urine Color YELLOW Urine Appearance TURBID Urine pH 5.5 Urine Specific [place] 1.014 Urine Protein 2+ Urine Glucose (UA) NEG Urine Ketones NEG Urine Occult Blood 3+ Urine Nitrite POS Urine Bilirubin NEG Urine Urobilinogen NEG Urine Leukocyte Esterase LARGE Urine WBC (Auto) >30 /hpf Urine RBC (Auto) 10-30 /hpf Urine Hyaline Casts (Auto) 0 /lpf Urine Epithelial Cells (Auto) 20-30 /lpf Urine Bacteria (Auto) 4+ Bedside Lactic Acid Venous 1.56 mmol/L Test 07/17/17 00:15 07/17/17 07:16 07/17/17 08:51 07/17/17 11:30 Lactic Acid Level 0.7 mmol/L White Blood Count 11.05 K/uL Red Blood Count 3.31 M/uL Hemoglobin 10.0 g/dL Hematocrit 31.1 % Mean Corpuscular Volume 94.0 fL Mean Corpuscular Hemoglobin 30.2 pg Mean Corpuscular Hemoglobin Concent 32.2 g/dl Platelet Count 105 K/uL Mean Platelet Volume 9.9 fL Neutrophils (%) (Auto) 92.6 % Lymphocytes (%) (Auto) 4.0 % Monocytes (%) (Auto) 2.1 % Eosinophils (%) (Auto) 0.1 % Basophils (%) (Auto) 0.2 % Neutrophils # (Auto) 10.24 K/uL Lymphocytes # (Auto) 0.44 K/uL Monocytes # (Auto) 0.23 K/uL Eosinophils # (Auto) 0.01 K/uL Basophils # (Auto) 0.02 K/uL RDW Standard Deviation 51.6 fL RDW Coefficient of Variation 15.1 % Immature Granulocyte % (Auto) 1.0 % Immature Granulocyte # (Auto) 0.11 K/uL Toxic Granulation 1+ Sodium Level 138 mmol/L Potassium Level 4.6 mmol/L Chloride Level 110 mmol/L Carbon Dioxide Level 17 mmol/L Anion Gap 11.0 mmol/L Blood Urea Nitrogen 28 mg/dl Creatinine 1.90 mg/dl Est Creatinine Clear Calc Drug Dose 34.8 ml/min Estimated GFR () 32.2 Estimated GFR (Non- 27.8 BUN/Creatinine Ratio 14.6 Random Glucose 331 mg/dl Calcium Level 8.0 mg/dl Beta-Hydroxybutyric Acid 4.74 mg/dL Bedside Glucose 288 mg/dl 234 mg/dl Assessment and Plan 62-year-old female, with sepsis secondary to a UTI this failed outpatient therapy. In addition to that she has an AISHWARYA, due to a combination of urinary tract infection as well as dehydration. Sepsis in the setting of urinary tract infection - Lactate 1.5 on arrival; now 0.7 - Continue with NSS + 20 KCl at 150 ml/hr - vitals have normalized - Blood cultures pending - d/c zosyn and vanc, start ceftriaxone 1g daily given cultures grew pansensitive e.coli AISHWARYA - creatinine 1.9 (baseline 0.9) - BUN 28 - likely due to sepsis causing prerenal azotemia - Hold Lisinopril due to AISHWARYA - Hold Spironolactone due to AISHWARYA Rheumatoid Arthritis - Continue Methotrexate q Saturdays - Continue Leflunomide - resume Prednisone 5 mg BID - her home dose - Stress dose steroids no longer needed - d/c Hypertension - Patient apparently started on Toprol XL 50 mg daily 1 day ago for blood pressure; this was in 2 days ago at her PCPs office - restarted 25mg toprol given her pressures were running high Hypothyroidism - Continue Levothyroxine Type 2 Diabetes Mellitus - Hold Metformin - Insulin SSI with AC/HS checks - Lantus 10 units q12h added to regimen given sugars were running high - Type 2 diabetic diet pt's daughter expressed concerns about how stressed the patient has been recently, and her and her father were concerned that Ms. Champagne may have taken medication from her 's medication cupboard which contain antidepressants and narcotics. Spoke with patient at length about her mood/stress - she reports she has been more stressed at work lately as her boss has a demeaning attitude towards her and her coworkers - she is currently interviewing for other jobs. She stated that she felt safe at home, and that she had no thoughts of self- harm or suicide. She states she took half a pill from her 's cupboard as she was experiencing a severe headache whilst septic and dehydrated from her uti , but did not take any other medication. She reports good support at home. Urine toxicology not warranted. DVT Prophylaxis - SCD Knee, SHANNON Hose - Heparin 5000 U s.c. TID Code Status - Level I Full Code Disposition - stepped down to med/surg, likely d/c tomorrow Resident Physician Supervision Note: I interviewed and examined the patient. Discussed with Dr. Robertson and agree with findings and plan as documented in the note. Any exceptions or clarifications are listed here: None Documented By: Jason Lopez feeling better discussed UTI/pyelo/sepsis vitals noted nad breathing unlabored no pallor or icterus UTI/pyelonephritis w sepsis on admission - abx, supportive care ARF - due to above, IVF Resident Tracking Resident Involvement: Resident Care Provided Care Provided: Adult [facility] Medicine
[2017-07-17] MEDS ORDERED: GLUCAGON FOR INJ 1 MG VIAL SQ PRN (08:30)
[2017-07-17] MEDS ORDERED: DEXTROSE 50% 50 ML SYR IV PRN (08:30)
[2017-07-17] MEDS ORDERED: INSULIN ASPART 100 UNITS/ML 3 ML PEN SC ONE (08:30)
[2017-07-17] MEDS ORDERED: GLUCOSE 10 TABS/TUBE PO PRN (08:30)
[2017-07-17] MEDS ORDERED: GLUCOSE 40% GEL 15 GM TUBE PO PRN (08:30)
[2017-07-17] MEDS ORDERED: GABAPENTIN 600 MG TAB PO SCH ×2 (09:00→21:00)
[2017-07-17] MEDS ORDERED: VANCOMYCIN INJ 1,000 MG in SODIUM CHLORIDE 0.9% 250ML 250 ML IV SCH (09:00)
[2017-07-17] MEDS: CEFTRIAXONE SOD INJ 1 GM in DEXTROSE 5% ADD-VANTAGE 50ML 50 ML IV SCH (09:22)
[2017-07-17] MEDS: INSULIN GLARGINE SOLOSTAR 100 UNITS/ML 3 ML PEN SC SCH ×2 (09:23→20:13)
[2017-07-17 09:45] LABS: BASO % 0.2 %; BASO ABS # 0.02 K/uL (0-0.2); COMPLETE YES; EOS % 0.1 %; LYMPH ABS # 0.44 K/uL (1.2-3.4); MONO % 2.1 %; NEUT % 92.6 %; TOXIC GRANULATION 1+
[2017-07-17] MEDS ORDERED: METOPROLOL SUCC 25MG EXT REL TAB PO ONE (12:00)
[2017-07-17] MEDS: INSULIN ASPART 100 UNITS/ML 3 ML PEN SC SCH ×3 (12:32→20:08)
[2017-07-17] MEDS: ACETAMINOPHEN 325 MG TAB PO PRN (18:44)
[2017-07-17] MEDS ORDERED: NURSING VERBAL MED ORDER ONE (20:30)
[2017-07-17] MEDS ORDERED: CYCLOBENZAPRINE HCL 10 MG TAB PO ONE (20:45)
[2017-07-18] VITALS (7 sets, daily range): BP systolic 138–194; BP diastolic 86–117; PULSE 87–105; TEMP 37.1–37.3; O2SAT 91–96
[2017-07-18] MEDS: NSS + 20MEQ KCL 1000ML 1,000 ML IV SCH ×2 (01:57→08:49)
[2017-07-18] MEDS: ACETAMINOPHEN 325 MG TAB PO PRN ×2 (01:57→10:59)
[2017-07-18] MEDS: HEPARIN SOD 5000 UNIT/0.5 ML CARP SQ SCH ×2 (05:47→13:48)
[2017-07-18] MEDS ORDERED: LEVOTHYROXINE 100 MCG TAB PO SCH (06:30)
[2017-07-18 07:05] LABS: HEMATOCRIT 28.9 % (37-47); MEAN CELL VOLUME 92.6 fL (80-100); MEAN CORPUSCULAR HEMOGLOBIN 30.8 pg (25-34); MEAN CORPUSCULAR HGB CONC 33.2 g/dl (32-36); RED BLOOD COUNT 3.12 M/uL (4.2-5.4); WHITE BLOOD COUNT 13.56 K/uL (4.8-10.8)
[2017-07-18 07:35] LABS: CALCIUM 8.2 mg/dl (8.5-10.1); CREATININE 1.7 mg/dl (0.60-1.20); POTASSIUM 4.2 mmol/L (3.5-5.1)
[2017-07-18 07:45] LABS: MEAN PLATELET VOLUME 9.8 fL (7.4-10.4); PLATELET COUNT 92 K/uL (130-400); PLT ESTIMATE DECREASED
[2017-07-18] MEDS: INSULIN GLARGINE SOLOSTAR 100 UNITS/ML 3 ML PEN SC SCH (08:15)
[2017-07-18] MEDS: INSULIN ASPART 100 UNITS/ML 3 ML PEN SC SCH ×3 (08:15→17:24)
--- NOTE | 2017-07-18 08:23 | Family Medicine Progress Note ---
Progress Note Date of Service Jul 18, 2017. Subjective Pt evaluation today including: conversation w/ patient, physical exam, chart review, lab review, review of inpatient medication list Pain: No pain reported PO Intake: Tolerating PO intake Voiding: no voiding problems Assessment and Plan 62-year-old female, with sepsis secondary to a UTI this failed outpatient therapy. In addition to that she has an AISHWARYA, due to a combination of urinary tract infection as well as dehydration. Sepsis in the setting of urinary tract infection - Continue with NSS + 20 KCl at 150 ml/hr - Blood cultures grew pansensitive e.coli - continue ceftriaxone 1g daily given cultures grew pansensitive e.coli - WCC increased to 13 from 11 - platelets dropped from 142 to 92 AISHWARYA - creatinine dropped from 1.9 to 1.7 (baseline 0.9) - BUN 29 - likely due to sepsis causing prerenal azotemia - Hold Lisinopril due to AISHWARYA - Hold Spironolactone due to AISHWARYA Rheumatoid Arthritis - Continue Methotrexate q Saturdays - Continue Leflunomide - resume Prednisone 5 mg BID - her home dose Hypertension - Patient apparently started on Toprol XL 50 mg daily 1 day ago for blood pressure; this was in 2 days ago at her PCPs office - restarted 25mg toprol given her pressures were running high Hypothyroidism - Continue Levothyroxine Type 2 Diabetes Mellitus - Hold Metformin - Insulin SSI with AC/HS checks - Lantus 10 units q12h added to regimen given sugars were running high - Type 2 diabetic diet DVT Prophylaxis - SCD Knee, SHANNON Hose - Heparin 5000 U s.c. TID Code Status - Level I Full Code Disposition - remains on med/surg Resident Tracking Resident Involvement: Resident Care Provided Care Provided: Adult Hospital Medicine
[2017-07-18] MEDS: CYCLOBENZAPRINE HCL 10 MG TAB PO SCH (08:49)
[2017-07-18] MEDS: CEFTRIAXONE SOD INJ 1 GM in DEXTROSE 5% ADD-VANTAGE 50ML 50 ML IV SCH (08:50)
[2017-07-18] MEDS ORDERED: METOPROLOL SUCC 25MG EXT REL TAB PO SCH (09:00)
[2017-07-18] MEDS ORDERED: METOPROLOL TARTRATE 25 MG TAB PO ONE (10:30)
--- NOTE | 2017-07-18 11:54 | Discharge Instructions ---
Discharge Instructions Date of Service Jul 18, 2017. Admission Reason for Admission: Sepsis, Uti Discharge Discharge Diagnosis / Problem: Sepsis secondary to urinary tract infection Discharge Goals Goal(s): Decrease discomfort Activity Recommendations Activity Limitations: resume your previous activity . Instructions / Follow-Up Instructions / Follow-Up You were admitted to [facility] due to a severe urinary tract infection that resulted in the bacteria travelling to your bloodstream and causing you to become septic. You were treated in the hospital with an IV antibiotic called Rocephin. There is no oral equivalent of this antibiotic, and so we are discharging you home on a 14 day course of an antibiotic called Levaquin. Because of the severity of your UTI, your kidney numbers increased slightly, and have decreased since your admission, but have not returned to baseline. Because of this, we would like for you to return to the hospital lab tomorrow so that we can do some bloodwork to recheck your white cell count and kidney numbers to ensure that they are improving. At this time, we will let you know if you need further follow up with the hospital, or if you can follow up with your primary care provider. We will also let you know whether you should take tomorrow's dose of levaquin or take it the next day. The reason for this is that we expect your kidney numbers to decrease, and therefore it would be fine to take the levaquin every day, but in case they do not, we would rather keep you on a dose that you took every other day. Lastly, we would like for you to hold your lisinopril, spironolactone, meloxicam and metformin until tomorrow until we see improvement in your kidney numbers. On your medication list, it will stay "stop" but this is just for tomorrow, as we would like you to continue these medications once we receive your blood results tomorrow. Given that your blood pressure was running high in the hospital, we also recommend that you take your increase home dose of the metoprolol, and follow up with your primary care provider about blood pressure control. Your sugar levels were also on the higher side, and we recommend increasing your home dose of metformin to 1000mg BID (once we give you the go-ahead that it is ok to restart it) as your HbA1c, which is a measure of your continuous churn buttermaker glucose control was 8.5 and we would prefer it to be below 7. You can take your other medications as prescribed. Current Hospital Diet Patient's current hospital diet: Diabetes Type 2 Diet Discharge Diet Recommended Diet: Diabetes Type 2 Diet Pending Studies Studies pending at discharge: no Laboratory Results Hemoglobin A1c Test 07/15/17 12:10 Range/Units Estimated Average Glucose 200 mg/dl Hemoglobin A1c 8.6 H 4.5-5.6 % Medical Emergencies . Who to Call and When: Medical Emergencies: If at any time you feel your situation is an emergency, please call 911 immediately. . Non-Emergent Contact Non-Emergency issues call your: Primary Care Provider . . "Provider Documentation" section prepared by Matthew Robertson. . VTE Core Measure Inpt VTE Proph given/why not?: Unfractionated heparin SQ
[2017-07-18] MEDS ORDERED: LEVOFLOXACIN 500 MG TAB PO ONE (12:00)
[2017-07-18] MEDS ORDERED: LEVOFLOXACIN 750 MG TAB PO ONE (12:00)
[2017-07-18] MEDS ORDERED: LEVO1TAB35 PO (12:06)
--- NOTE | 2017-07-18 13:21 | Discharge Summary ---
Discharge Summary Date of Service Jul 18, 2017. (Matthew Robertson M.D.) Discharge Summary Admission Date: Jul 16, 2017 at 22:40 Discharge Date: Jul 18, 2017 Discharge Disposition: Home Principal Diagnosis: Sepsis secondary to UTI Immunizations: Have You Had Influenza Vaccine: Unknown History of Tetanus Vaccine?: Unknown History of Pneumococcal: Unknown History of Hepatitis B Vaccine: Unknown (Matthew Robertson M.D.) Medication Reconciliation New Medications: Levofloxacin (Levaquin) 750 Mg Tab 750 MG PO DAILY for 14 Days, #14 TAB Continued Medications: Cyclobenzaprine HCl (Cyclobenzaprine HCl) 10 Mg Tab 1 TAB PO DAILY Folic Acid (Folic Acid) 1 Mg Tab 1 MG PO 6XWK Gabapentin (Gabapentin) 600 Mg Tab 1 TAB PO DAILY PT HAS NOT STARTED MEDICATION YET OF 07-16-17 Leflunomide (Arava) 10 Mg Tab 1 TAB PO DAILY Levothyroxine Sodium (Levothyroxine Sodium) 88 Mcg Tab 1 TAB PO Q2D ALTERNATING WITH 100MCG TAB Levothyroxine Sodium (Levothyroxine Sodium) 100 Mcg Tab 1 TAB PO Q2D ALTERNATING WITH 88MCG TAB Methotrexate (Methotrexate) 2.5 Mg Tab 1 DOSE PO UD Metoprolol Succinate (Metoprolol Succinate ER) 50 Mg Tabcr 1 DOSE PO UD PT HAD NOT STARTED MEDICATION YET OF 07-16-17 Prednisone (Prednisone) 5 Mg Tab 1 TAB PO BID Discontinued Medications: Gabapentin (Gabapentin) 300 Mg Cap 1 CAP PO DAILY Lisinopril (Lisinopril) 20 Mg Tab 1 TAB PO DAILY Meloxicam (Mobic) 7.5 Mg Tab 1 TAB PO DAILY Metformin HCl (Metformin HCl) 500 Mg Tab 500 MG PO BID Spironolactone (Spironolactone) 25 Mg Tab 1 TAB PO DAILY Discharge Exam Ms. Champagne reports that she feels well today. She denies abdominal pain, flank pain, n/v, shortness of breath. She is eager to be discharged home and states that she will follow up with blood work in the lab at [facility] tomorrow. Review of Systems: Constitutional: No fever, No chills, No sweats Respiratory: No cough, No sputum, No wheezing, No shortness of breath Abdomen: No pain, No nausea, No vomiting, No diarrhea Physical Exam: General Appearance: WD/WN, no apparent distress Respiratory/Chest: chest non-tender, lungs clear, normal breath sounds, no respiratory distress, no accessory muscle use Cardiovascular: regular rate, rhythm, no edema, no gallop, no JVD, no murmur Abdomen / GI: normal bowel sounds, non tender, soft, no organomegaly, no pulsatile mass (Matthew Robertson M.D.) Hospital Course Ms. Champagne was admitted to [facility] with sepsis secondary to a UTI. She was treated with IV Rocephin and will be discharged home on a 14 day course of Levaquin. Her creatinine increased from her baseline of 0.9. and came down slightly today to 1.7. Her WCC remains high at 13 and we are discharging her with the understanding that she will return tomorrow morning to have a repeat CBC and BMP done, so that we can ensure her kidney function is improving. We also told her to hold her lisinopril, metformin, meloxicam and spironolactone until we receive her BMP results, which will likely show a further decrease in her creatinine. She was given a dose of levaquin today, and was told to hold it tomorrow unless we call and tell her that her creatinine has improved. When she does restart her metformin, we have advised that she increase the dose to 1000mg BID, given that her HbA1c level was 8.6. We recommended she take her new increased home dose of metoprolol and follow up with her PCP regarding management of her sugar and blood pressure. Total Time Spent: Less than 30 minutes This includes examination of the patient, discharge planning, medication reconciliation, and communication with other providers. (Matthew Robertson M.D.) Resident Physician Supervision Note: I interviewed and examined the patient. Discussed with Dr. Robertson and agree with findings and plan as documented in the note. Any exceptions or clarifications are listed here: None Documented By: Jason Jessica feeling better and wants to go home outlined "loose ends" -- blood cultures likely to be same as urine but pending, creatinine improving but needs f/u, needs CBC, BMP tomorrow, and outlined possible changes that might need to be made (including return to hospital) if surprises were found - although d/w pt highly doubt this she expressed understanding and willingness for these f/u measures in order to be safe to go home today vitals noted nad breathing unlabored no pallor or icterus UTI/pyelonephritis w sepsis and bacteremia ARF present on admission - improving. levaquin x 14 days (d/w pt and she is going to have f/u labs in AM, we'll call to update) safe/stable for home -- otherwise as above (Jason Lopez D.O.) Discharge Instructions Please refer to the electronic Patient Visit Report (Discharge Instructions) for additional information. (Matthew Robertson M.D.) Additional Copies To Corby Arzola M.D.
[2017-07-19] MEDS ORDERED: METOPROLOL SUCC 50MG EXT REL TAB PO SCH (09:00)
== END 2017-07-18 17:37 | disposition home or self-care (01) | DRG 872 ==
LOC: EDBD 19:10 → C.EDB 19:11 → C.MED 22:40 → ENRESERV 23:03
PROVIDERS: ADMIT Student in an Organized Health Care Education/Training Program; ATTEND Family Medicine
DX: A41.9 Sepsis, unspecified organism (principal); N39.0 Urinary tract infection, site not specified; N17.9 Acute kidney failure, unspecified; M06.9 Rheumatoid arthritis, unspecified; I10 Essential (primary) hypertension; E11.65 Type 2 diabetes mellitus with hyperglycemia; E03.9 Hypothyroidism, unspecified; Z96.652 Presence of left artificial knee joint; Z80.9 Family history of malignant neoplasm, unspecified; Z82.49 Family history of ischemic heart disease and other diseases of the circulatory system

== ENCOUNTER → 2017-07-19 | Outpatient (CLI) | payer OTHER ==
[~2017-07-19] MED LIST changes: -CYCL5TAB PO; +FLX10 PO; -GLC500 PO; +LEFL10TA PO; +LEVO100T7 PO; -LEVO100T84 PO; +LEVO1TAB35 PO; +LEVO88TA3 PO; -LISI-461 PO; +NRN600 PO; -PRM/625 PO; -SPIR1TAB72 PO; +TPRSR/50 PO
[2017-07-19 10:56] LABS: BASO % 0.3 %; BASO ABS # 0.03 K/uL (0-0.2); COMPLETE YES; EOS % 2.9 %; HEMATOCRIT 34.8 % (37-47); IG% 0.6 %; LYMPH % 6.6 %; LYMPH ABS # 0.59 K/uL (1.2-3.4); MEAN CORPUSCULAR HEMOGLOBIN 30.7 pg (25-34); MEAN PLATELET VOLUME 10.4 fL (7.4-10.4); MONO % 3.7 %; NEUT % 85.9 %; PLATELET COUNT 108 K/uL (130-400); RED BLOOD COUNT 3.74 M/uL (4.2-5.4); WHITE BLOOD COUNT 8.89 K/uL (4.8-10.8)
[2017-07-19 11:22] LABS: BLOOD UREA NITROGEN 29 mg/dl (7-18); BUN/CREATININE RATIO 15.2 (10-20); CALCIUM 9.1 mg/dl (8.5-10.1); CARBON DIOXIDE 18 mmol/L (21-32); CHLORIDE 110 mmol/L (98-107); GLUCOSE 106 mg/dl (70-99); POTASSIUM 3.8 mmol/L (3.5-5.1); SODIUM 139 mmol/L (136-145)
== END | disposition home or self-care (01) ==
LOC: C.LAB 10:01
PROVIDERS: ATTEND Student in an Organized Health Care Education/Training Program
DX: N17.9 Acute kidney failure, unspecified (principal)

== ENCOUNTER 2017-07-20 20:11 | Emergency (ER) | payer OTHER ==
[~2017-07-20] VITALS: Ht 170.2 cm; Wt 86.3 kg
[2017-07-20 20:12] VITALS: TEMP 37.4; Ht 170.2 cm; Wt 86.3 kg
[2017-07-20] MEDS ORDERED: SODIUM CHLORIDE 0.9% 1000ML 1,000 ML IV STA ×2 (21:24)
[2017-07-20 21:41] VITALS: O2SAT 94
[2017-07-20] MEDS ORDERED: LEVO88TA3 PO (22:25)
--- NOTE | 2017-07-20 22:27 | DIAGNOSTIC IMAGING REPORT ---
CHEST ONE VIEW PORTABLE CLINICAL HISTORY: 62 years-old Female presenting with EVALUATE WEAKNESS. TECHNIQUE: Portable upright AP view of the chest was obtained. COMPARISON: 07/16/2017. FINDINGS: Cardiomediastinal silhouette normal. Interval decrease in left basilar bandlike opacity. No new focal infiltrate. No large effusion or pneumothorax. Osseous structures normal. Upper abdomen normal. IMPRESSION: 1. No acute cardiopulmonary disease. Electronically signed by: Corby Day M.D. 07/20/2017 10:25 PM Dictated Date/Time: 07/20/2017 10:24 PM
[2017-07-20 22:53] LABS: PARTIAL THROMBOPLASTIN RATIO 1.1; PROTHROMBIN TIME (PATIENT) 11.2 SECONDS (9.0-12.0)
[2017-07-20 23:05] LABS: ALT/SGPT 36 U/L (12-78); AST/SGOT 25 U/L (15-37); BLOOD UREA NITROGEN 24 mg/dl (7-18); BUN/CREATININE RATIO 14.1 (10-20); CALCIUM 8.4 mg/dl (8.5-10.1); CARBON DIOXIDE 21 mmol/L (21-32); CHLORIDE 107 mmol/L (98-107); GLUCOSE 181 mg/dl (70-99); MAGNESIUM 1.8 mg/dl (1.8-2.4); POTASSIUM 3.6 mmol/L (3.5-5.1); SODIUM 138 mmol/L (136-145)
[2017-07-20 23:12] LABS: BASO % 0.5 %; BASO ABS # 0.04 K/uL (0-0.2); COMPLETE YES; EOS % 2.5 %; IG% 0.7 %; LYMPH % 9.6 %; MEAN CELL VOLUME 92.6 fL (80-100); MEAN CORPUSCULAR HEMOGLOBIN 29.3 pg (25-34); MEAN CORPUSCULAR HGB CONC 31.7 g/dl (32-36); MEAN PLATELET VOLUME 10.1 fL (7.4-10.4); MONO % 7.1 %; NEUT % 79.6 %; PLATELET COUNT 162 K/uL (130-400); RED BLOOD COUNT 3.24 M/uL (4.2-5.4); WHITE BLOOD COUNT 7.28 K/uL (4.8-10.8)
[2017-07-20 23:16] LABS: ALKALINE PHOSPHATASE 117 U/L (45-117)
--- NOTE | 2017-07-20 23:32 | DIAGNOSTIC IMAGING REPORT ---
ABD/PELVIS NO IV OR ORAL CONT CLINICAL HISTORY: 62 years-old Female presenting with AISHWARYA, UTI, fever. TECHNIQUE: Multidetector CT of the abdomen and pelvis was performed without the use of intravenous contrast. IV contrast: None. A dose lowering technique was used consistent with the principles of ALARA (as low as reasonably achievable). COMPARISON: 07/16/2017. CT DOSE (mGy.cm): The estimated cumulative dose is 582.68 mGy.cm. 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 Lung bases: Increased dependent consolidation with new small bilateral pleural effusions, likely passive atelectasis. Top normal heart size. Mitral annular calcification. Liver: Normal morphology. Density consistent with hepatic steatosis. Biliary: No gross biliary ductal dilatation allowing for noncontrast technique. Normal gallbladder. Pancreas: Severe parenchymal atrophy. Spleen: Normal noncontrast appearance. Adrenal glands: Normal noncontrast appearance. Kidneys and ureters: Normal noncontrast appearance. No nephrolithiasis. No hydronephrosis. Nonspecific perinephric stranding. Mild urothelial thickening of the mid right ureter suggested. Mild right periureteral fat stranding may be present, although the appearance is not significantly changed from prior. No hydroureter. No ureteral calculi. Bladder: Normal. Pelvic organs: Uterus surgically absent. No adnexal masses. Bowel: Diverticulosis of the sigmoid colon. No bowel obstruction. Peritoneal cavity: No free fluid or intraperitoneal gas. Lymph nodes: No enlarged lymph nodes in the abdomen or pelvis. Vasculature: Atherosclerosis of the normal caliber abdominal aorta. Abdominal wall: Mild anasarca. Musculoskeletal: Degenerative changes of the spine. No paraspinal inflammatory changes. IMPRESSION: 1. Suggestion of mild urothelial thickening of the mid right ureter with mild periureteral fat stranding. This could suggest upper tract involvement of urinary tract infection. Correlate with urinalysis. The presence of perinephric stranding is nonspecific and does not imply pyelonephritis, which would better evaluated with intravenous contrast. 2. Increased basilar atelectasis and new small pleural effusions. Electronically signed by: Corby Day M.D. 07/20/2017 11:30 PM Dictated Date/Time: 07/20/2017 11:21 PM
[2017-07-20 23:51] LABS: URINE APPEARANCE CLOUDY (CLEAR); URINE BILIRUBIN NEG (NEG); URINE COLOR YELLOW; URINE NITRITE NEG (NEG); URINE PH 5.5 (4.5-7.5); URINE SPECIFIC GRAVITY 1.015 (1.000-1.030); UROBILINOGEN NEG (NEG)
[2017-07-21] LABS: MANUAL MICROSCOPIC REQUIRED? NO; REVIEW REQ? NO
[2017-07-21] MEDS ORDERED: SODIUM CHLORIDE 0.9% 500ML 500 ML IV STA (00:42)
[2017-07-21] MEDS ORDERED: CEFTRIAXONE SOD INJ 1 GM ADDVIAL IV STA (00:42)
[2017-07-21 01:55] VITALS: PULSE 98; O2SAT 93
[2017-07-21 02:05] VITALS: BP 154/58
--- NOTE | 2017-07-21 03:42 | EMERGENCY ROOM VISIT NOTE ---
History Report prepared by Stephany: Tae Anderson Under the Supervision of: Dr. Darrel Dodge M.D. First contact with patient: 21:24 Chief Complaint: REFERRED BY DOCTOR Stated Complaint: REFERRED BY DOCTOR, FEVER History of Present Illness The patient is a 62 year old female who presents to the Emergency Room with complaints of a fever starting earlier today. The patient states that she was recently here for a UTI and sepsis. She was discharged two days ago, and yesterday she had blood work done, and she was having an elevated kidney function. She states that she called her PCP, and they told her to come in for evaluation. She states that she is currently on 750mg of Levaquin for her UTI. The patient additionally is complaining of a headache. Pt denies flank pain, kidney pain, LOC, chills, diaphoresis, visual changes, neck pain, chest pain, breathing difficulties, nausea, vomiting, abdominal pain, back pain, melena, hematochezia, urinary symptoms, numbness, weakness, lymphadenopathy, rash, or other complaints. Source of History: patient Onset: earlier today Position: other (global) Quality: other (fever) Timing: constant Associated Symptoms: + headache Review of Systems See HPI for pertinent positives and negatives. A total of ten systems were reviewed and were otherwise negative. Past Medical & Surgical Medical Problems: (1) Left knee DJD (2) Rheumatoid arthritis Family History Cancer Hypertension Social History Smoking Status: Never Smoker Alcohol Use: none Drug Use: none Marital Status: Occupation Status: employed Current/Historical Medications Scheduled Cyclobenzaprine HCl (Cyclobenzaprine HCl), 1 TAB PO DAILY Folic Acid (Folic Acid), 1 MG PO 6XWK Gabapentin (Gabapentin), 1 TAB PO DAILY Leflunomide (Arava), 1 TAB PO DAILY Levofloxacin (Levaquin), 750 MG PO DAILY Levothyroxine Sodium (Levothyroxine Sodium), 1 TAB PO Q2D Levothyroxine Sodium (Levothyroxine Sodium), 1 TAB PO Q2D Methotrexate (Methotrexate), 1 DOSE PO UD Metoprolol Succinate (Metoprolol Succinate ER), 1 DOSE PO UD Prednisone (Prednisone), 1 TAB PO BID Allergies Coded Allergies: Tetracycline (Unverified Allergy, Severe, RASH ON FACE, 07/20/17) Statins (Verified Adverse Reaction, Intermediate, LE edema, 07/20/17) Physical Exam Vital Signs Date Time Temp Pulse Resp B/P (MAP) Pulse Ox O2 Delivery O2 Flow Rate FiO2 07/21/17 02:05 154/58 07/21/17 01:55 98 16 164/95 93 07/21/17 01:50 99 19 97 Room Air 07/21/17 01:20 98 14 95 Room Air 07/21/17 01:20 98 07/21/17 01:02 148/88 Room Air 07/21/17 00:50 102 14 94 Room Air 07/21/17 00:45 102 15 91 Room Air 07/21/17 00:02 140/61 07/20/17 23:45 97 17 90 Room Air 07/20/17 23:31 98 17 144/75 92 Room Air 07/20/17 22:30 163/108 07/20/17 22:11 106 19 07/20/17 21:59 103 07/20/17 21:50 109 20 161/84 96 Room Air 07/20/17 21:41 94 Room Air 07/20/17 20:14 161/84 07/20/17 20:12 37.4 117 161/84 94 Room Air Physical Exam GENERAL: Awake, alert, well-appearing, in no distress HENT: Normocephalic, atraumatic. Oropharynx unremarkable. EYES: Normal conjunctiva. Sclera non-icteric. NECK: Supple. No nuchal rigidity. FROM. No JVD. No meningeal signs. RESPIRATORY: Clear to auscultation. CARDIAC: Borderline Tachycardic rate, normal rhythm. Extremities warm and well perfused. Pulses equal. ABDOMEN: Soft, non-distended. No tenderness to palpation. No rebound or guarding. No masses. RECTAL: Deferred. MUSCULOSKELETAL: Chest examination reveals no tenderness. The back is symmetrical on inspection without obvious abnormality. There is no CVA tenderness to palpation. No joint edema. LOWER EXTREMITIES: Calves are equal size bilaterally and non-tender. No edema. No discoloration. NEURO: Normal sensorium. No sensory or motor deficits noted. SKIN: No rash or jaundice noted. Medical Decision & Procedures ER Provider Diagnostic Interpretation: Radiology results as stated below per my review and radiologist interpretation: CHEST ONE VIEW PORTABLE CLINICAL HISTORY: 62 years-old Female presenting with EVALUATE WEAKNESS. TECHNIQUE: Portable upright AP view of the chest was obtained. COMPARISON: 07/16/2017. FINDINGS: Cardiomediastinal silhouette normal. Interval decrease in left basilar bandlike opacity. No new focal infiltrate. No large effusion or pneumothorax. Osseous structures normal. Upper abdomen normal. IMPRESSION: 1. No acute cardiopulmonary disease. Electronically signed by: Corby Day M.D. 07/20/2017 10:25 PM Dictated Date/Time: 07/20/2017 10:24 PM ABD/PELVIS NO IV OR ORAL CONT CLINICAL HISTORY: 62 years-old Female presenting with AISHWARYA, UTI, fever. TECHNIQUE: Multidetector CT of the abdomen and pelvis was performed without the use of intravenous contrast. IV contrast: None. A dose lowering technique was used consistent with the principles of ALARA (as low as reasonably achievable). COMPARISON: 07/16/2017. CT DOSE (mGy.cm): The estimated cumulative dose is 582.68 mGy.cm. FINDINGS: Copy Clerk topogram: Unremarkable. Lung bases: Increased dependent consolidation with new small bilateral pleural effusions, likely passive atelectasis. Top normal heart size. Mitral annular calcification. Liver: Normal morphology. Density consistent with hepatic steatosis. Biliary: No gross biliary ductal dilatation allowing for noncontrast technique. Normal gallbladder. Pancreas: Severe parenchymal atrophy. Spleen: Normal noncontrast appearance. Adrenal glands: Normal noncontrast appearance. Kidneys and ureters: Normal noncontrast appearance. No nephrolithiasis. No hydronephrosis. Nonspecific perinephric stranding. Mild urothelial thickening of the mid right ureter suggested. Mild right periureteral fat stranding may be present, although the appearance is not significantly changed from prior. No hydroureter. No ureteral calculi. Bladder: Normal. Pelvic organs: Uterus surgically absent. No adnexal masses. Bowel: Diverticulosis of the sigmoid colon. No bowel obstruction. Peritoneal cavity: No free fluid or intraperitoneal gas. Lymph nodes: No enlarged lymph nodes in the abdomen or pelvis. Vasculature: Atherosclerosis of the normal caliber abdominal aorta. Abdominal wall: Mild anasarca. Musculoskeletal: Degenerative changes of the spine. No paraspinal inflammatory changes. IMPRESSION: 1. Suggestion of mild urothelial thickening of the mid right ureter with mild periureteral fat stranding. This could suggest upper tract involvement of urinary tract infection. Correlate with urinalysis. The presence of perinephric stranding is nonspecific and does not imply pyelonephritis, which would better evaluated with intravenous contrast. 2. Increased basilar atelectasis and new small pleural effusions. Electronically signed by: Corby Day M.D. 07/20/2017 11:30 PM Dictated Date/Time: 07/20/2017 11:21 PM Laboratory Results 07/20/17 22:29 Red Blood Count 3.24, Mean Corpuscular Volume 92.6, Mean Corpuscular Hemoglobin 29.3, Mean Corpuscular Hemoglobin Concent 31.7, Mean Platelet Volume 10.1, Neutrophils (%) (Auto) 79.6, Lymphocytes (%) (Auto) 9.6, Monocytes (%) (Auto) 7.1, Eosinophils (%) (Auto) 2.5, Basophils (%) (Auto) 0.5, Neutrophils # (Auto) 5.79, Lymphocytes # (Auto) 0.70, Monocytes # (Auto) 0.52, Eosinophils # (Auto) 0.18, Basophils # (Auto) 0.04 07/20/17 22:29 Test 07/20/17 20:56 07/20/17 22:29 07/20/17 23:30 Bedside Glucose 189 mg/dl (70-90) White Blood Count 7.28 K/uL (4.8-10.8) Red Blood Count 3.24 M/uL (4.2-5.4) Hemoglobin 9.5 g/dL (12.0-16.0) Hematocrit 30.0 % (37-47) Mean Corpuscular Volume 92.6 fL (80-100) Mean Corpuscular Hemoglobin 29.3 pg (25-34) Mean Corpuscular Hemoglobin Concent 31.7 g/dl (32-36) Platelet Count 162 K/uL (130-400) Mean Platelet Volume 10.1 fL (7.4-10.4) Neutrophils (%) (Auto) 79.6 % Lymphocytes (%) (Auto) 9.6 % Monocytes (%) (Auto) 7.1 % Eosinophils (%) (Auto) 2.5 % Basophils (%) (Auto) 0.5 % Neutrophils # (Auto) 5.79 K/uL (1.4-6.5) Lymphocytes # (Auto) 0.70 K/uL (1.2-3.4) Monocytes # (Auto) 0.52 K/uL (0.11-0.59) Eosinophils # (Auto) 0.18 K/uL (0-0.5) Basophils # (Auto) 0.04 K/uL (0-0.2) RDW Standard Deviation 52.0 fL (36.4-46.3) RDW Coefficient of Variation 15.4 % (11.5-14.5) Immature Granulocyte % (Auto) 0.7 % Immature Granulocyte # (Auto) 0.05 K/uL (0.00-0.02) Prothrombin Time 11.2 SECONDS (9.0-12.0) Prothromb Time International Ratio 1.0 (0.9-1.1) Activated Partial Thromboplast Time 27.3 SECONDS (21.0-31.0) Partial Thromboplastin Ratio 1.1 Anion Gap 10.0 mmol/L (3-11) Est Creatinine Clear Calc Drug Dose 38.7 ml/min Estimated GFR () 36.8 Estimated GFR (Non- 31.8 BUN/Creatinine Ratio 14.1 (10-20) Calcium Level 8.4 mg/dl (8.5-10.1) Magnesium Level 1.8 mg/dl (1.8-2.4) Total Bilirubin 0.4 mg/dl (0.2-1) Direct Bilirubin 0.1 mg/dl (0-0.2) Aspartate Amino Transf (AST/SGOT) 25 U/L (15-37) Alanine Aminotransferase (ALT/SGPT) 36 U/L (12-78) Alkaline Phosphatase 117 U/L (45-117) Troponin I < 0.015 ng/ml (0-0.045) Total Protein 5.6 gm/dl (6.4-8.2) Albumin 1.9 gm/dl (3.4-5.0) Lipase 365 U/L (73-393) Thyroid Stimulating Hormone (TSH) 6.780 uIu/ml (0.300-4.500) Urine Color YELLOW Urine Appearance CLOUDY (CLEAR) Urine pH 5.5 (4.5-7.5) Urine Specific [place] 1.015 (1.000-1.030) Urine Protein 1+ (NEG) Urine Glucose (UA) NEG (NEG) Urine Ketones NEG (NEG) Urine Occult Blood 2+ (NEG) Urine Nitrite NEG (NEG) Urine Bilirubin NEG (NEG) Urine Urobilinogen NEG (NEG) Urine Leukocyte Esterase MODERATE (NEG) Urine WBC (Auto) >30 /hpf (0-5) Urine RBC (Auto) 0-4 /hpf (0-4) Urine Hyaline Casts (Auto) 1-5 /lpf (0-5) Urine Epithelial Cells (Auto) 5-10 /lpf (0-5) Urine Bacteria (Auto) NEG (NEG) Laboratory results reviewed by me Medications Administered Medications (Trade) Dose Ordered Sig/Melissa Route Start Time Stop Time Status Last Admin Dose Admin Sodium Chloride 1,000 ml @ 125 mls/hr Q8H STAT IV 07/20/17 21:24 07/21/17 02:57 DC 07/20/17 23:42 125 MLS/HR Sodium Chloride 1,000 ml @ 999 mls/hr Q1H1M STAT IV 07/20/17 21:24 07/20/17 22:24 DC 07/20/17 22:31 999 MLS/HR Ceftriaxone Sodium (Rocephin Inj) 1 gm NOW STAT IV 07/21/17 00:42 07/21/17 00:43 DC 07/21/17 00:59 1 GM Sodium Chloride 500 ml @ 999 mls/hr Q31M STAT IV 07/21/17 00:42 07/21/17 01:12 DC 07/21/17 00:59 999 MLS/HR ECG Indication: other (fever) Rate (beats per minute): 108 Rhythm: sinus tachycardia Findings: PAC, no acute ischemic change ED Course 2124: Sodium Chloride 1000 ml @ 999 mls/hr IV, Sodium Chloride 1000 ml @ 125 mls /hr IV 2213: The patient was evaluated in room C1. A complete history and physical exam was performed. 2348: I reevaluated the patient, and she was doing well. 0042: Sodium Chloride 500 ml @ 999 mls/hr IV, Rocephin Inj 1gm IV 0149: I reevaluated the patient, and she was doing better. Discussed results and discharge instructions: She verbalized understanding and agreement. The patient is ready for discharge. Medical Decision Triage Nursing notes reviewed. The patient's presentation and history were concerning for recent UTI and impaired kidney function. Etiologies such as renal abscess, bacteremia, acute kidney injury, metabolic, infection, hypo/hyperglycemia, electrolyte abnormalities, cardiac sources, intracerebral event, toxicologic, neurologic, as well as others were entertained. The patient clinically looks well. Her physical examination was relatively benign. She had no CVA tenderness. She had no abdominal tenderness. She did have a slight tachycardia. She had blood work, urinalysis and imaging ordered. She had an unremarkable CBC except for mild anemia. The patient was found to have an improving creatinine. She was admitted with a creatinine of 2 and it dropped to 1.7. Her outpatient testing revealed 1.9. It is currently 1.7. She was hydrated. Her urinalysis shows some pyuria, but it looks much better than prior. Record review indicates that she had a pansensitive Escherichia coli. The patient was given a dose of IV Rocephin in case there is anything unusual with her repeat culture. She had hydration performed. She is doing relatively well at this point time. I discussed conservative management with close outpatient follow-up. She will call her primary office tomorrow. I believe that she will need a repeat creatinine check. Cultures are pending. If she worsens in any way she will come back to the emergency department and be reevaluated for consideration and likely admission. I gave my usual and customary discussion regarding this issue. The patient will continue her oral Levaquin. By the evaluation outlined above other emergent etiologies such as those listed in the differential, as well as others, were deemed relatively unlikely. The patient was educated about the findings as listed above. All questions were answered and the patient was pleased with the treatment. Return instructions were outlined and the patient was discharged in stable condition. The patient was referred to her PCP tomorrow for follow-up for a recheck of the current condition. Medication Reconcilliation Current Medication List: was personally reviewed by me Blood Pressure Screening Patient's blood pressure: Elevated blood pressure Blood pressure disposition: Referred to PCP Impression Primary Impression: UTI (urinary tract infection) Additional Impression: Renal insufficiency Scribe Attestation The scribe's documentation has been prepared under my direction and personally reviewed by me in its entirety. I confirm that the note above accurately reflects all work, treatment, procedures, and medical decision making performed by me. Departure Information Dispostion Home / Self-Care Referrals Corby Arzola M.D. (PCP) Forms HOME CARE DOCUMENTATION FORM, IMPORTANT VISIT INFORMATION, WORK / SCHOOL INSTRUCTIONS Patient Instructions My [facility] Additional Instructions Continue current medications especially the Levaquin. Tylenol: Take 1000 mg every 6 hours as needed for pain. Do not take more than 3000 mg in a 24 hour period. Rest and drink plenty of fluids. Follow-up with Dr. Arzola's office tomorrow. Return to the emergency department for fevers, worsening pains, vomiting, weakness, lightheadedness or passing out, or as needed. Problem Qualifiers
== END 2017-07-21 02:05 | disposition home or self-care (01) ==
LOC: EDBD 20:11 → C.EDC 20:12
DX: N39.0 Urinary tract infection, site not specified (principal); N28.9 Disorder of kidney and ureter, unspecified; M06.9 Rheumatoid arthritis, unspecified; Z80.9 Family history of malignant neoplasm, unspecified; Z82.49 Family history of ischemic heart disease and other diseases of the circulatory system; Z79.899 Other long term (current) drug therapy

== ENCOUNTER → 2017-07-22 | Outpatient (CLI) | payer OTHER ==
[2017-07-22 17:40] LABS: ALT/SGPT 31 U/L (12-78); AST/SGOT 20 U/L (15-37); BLOOD UREA NITROGEN 17 mg/dl (7-18); BUN/CREATININE RATIO 9.7 (10-20); CALCIUM 8.8 mg/dl (8.5-10.1); CARBON DIOXIDE 21 mmol/L (21-32); CHLORIDE 108 mmol/L (98-107); GLUCOSE 114 mg/dl (70-99); POTASSIUM 3.8 mmol/L (3.5-5.1); SODIUM 138 mmol/L (136-145)
[2017-07-22 17:43] LABS: ALB/GLOB RATIO 0.5 (0.9-2); ALKALINE PHOSPHATASE 120 U/L (45-117)
--- NOTE | 2017-07-23 11:11 | CODING QUERY NO DIAGNOSIS ---
TREATMENT RENDERED WITHOUT A DIAGNOSIS : 1955 To promote full compliance with coding requirements relating to patient care, physician participation is requested in all cases of pedodontist uncertainty. Please assist us with providing a diagnosis/symptom for the test(s) below: A diagnosis/symptom was not documented on your Order. A valid diagnosis/symptom is required to bill all insurances. Please remember that we are unable to code a diagnosis of rule out, probable, possible, questionable, or suspected. Tests that require a diagnosis: DOS: 07/22/17 * CDIFF TOXIN B GENE DIAGNOSIS: * COMPREHENSIVE METABO DIAGNOSIS: Provider Signature: Date: Thank you Nancie Briones Health Information Management Once completed, please kindly fax back to [phone] For questions please call [phone]
== END | disposition home or self-care (01) ==
LOC: C.LABBC 13:57
PROVIDERS: ATTEND Internal Medicine
DX: A41.9 Sepsis, unspecified organism (principal); R19.7 Diarrhea, unspecified

== ENCOUNTER → 2017-07-29 | Outpatient (CLI) | payer OTHER ==
[2017-07-29 16:59] LABS: URINE APPEARANCE CLEAR (CLEAR); URINE BILIRUBIN NEG (NEG); URINE COLOR YELLOW; URINE EPITHELIAL CELL AUTO >30 /lpf (0-5); URINE NITRITE NEG (NEG); URINE SPECIFIC GRAVITY 1.018 (1.000-1.030); UROBILINOGEN NEG (NEG)
[2017-07-29 17:01] LABS: BLOOD UREA NITROGEN 27 mg/dl (7-18); BUN/CREATININE RATIO 15.7 (10-20); CALCIUM 9.2 mg/dl (8.5-10.1); CARBON DIOXIDE 26 mmol/L (21-32); CHLORIDE 102 mmol/L (98-107); CREATININE 1.73 mg/dl (0.60-1.20); GLUCOSE 104 mg/dl (70-99); POTASSIUM 3.8 mmol/L (3.5-5.1); SODIUM 136 mmol/L (136-145)
[2017-07-29 17:13] LABS: MANUAL MICROSCOPIC REQUIRED? NO; REVIEW REQ? NO
== END | disposition home or self-care (01) ==
LOC: C.LABBC 13:59
PROVIDERS: ATTEND Internal Medicine Nephrology
DX: N17.9 Acute kidney failure, unspecified (principal)

== ENCOUNTER → 2017-10-24 | Outpatient (CLI) | payer OTHER ==
[~2017-10-24] MED LIST changes: -LEVO1TAB35 PO
--- NOTE | 2017-10-24 15:41 | DIAGNOSTIC IMAGING REPORT ---
CHEST 2 VIEWS ROUTINE CLINICAL HISTORY: COUGH dyspnea COMPARISON STUDY: 07/20/2017 FINDINGS: Chronic fibrotic scarring left base laterally. Lungs appear clear. Diaphragms smooth. No focal infiltrate. IMPRESSION: No acute process. The above report was generated using voice recognition software. It may contain grammatical, syntax or spelling errors. Electronically signed by: Cortez Rebolledo M.D. 10/24/2017 3:40 PM Dictated Date/Time: 10/24/2017 3:40 PM
[2017-10-24 16:54] LABS: BASO % 0.3 %; BASO ABS # 0.02 K/uL (0-0.2); EOS % 2.4 %; EOS ABS # 0.18 K/uL (0-0.5); HEMATOCRIT 31.7 % (37-47); HEMOGLOBIN 10.1 g/dL (12.0-16.0); IG# 0.08 K/uL (0.00-0.02); LYMPH % 20.8 %; LYMPH ABS # 1.55 K/uL (1.2-3.4); MEAN CELL VOLUME 96.4 fL (80-100); MEAN CORPUSCULAR HEMOGLOBIN 30.7 pg (25-34); MEAN CORPUSCULAR HGB CONC 31.9 g/dl (32-36); MEAN PLATELET VOLUME 9.2 fL (7.4-10.4); MONO % 1.6 %; MONO ABS # 0.12 K/uL (0.11-0.59); NEUT % 73.8 %; NUCLEATED RED BLOOD CELL ABS 0.02 K/uL (0-0); PLATELET COUNT 459 K/uL (130-400); RED CELL DISTRIBUTION WIDTH CV 18.6 % (11.5-14.5); RED CELL DISTRIBUTION WIDTH SD 65.3 fL (36.4-46.3); WHITE BLOOD COUNT 7.45 K/uL (4.8-10.8)
[2017-10-24 17:04] LABS: ALBUMIN 3.3 gm/dl (3.4-5.0); ALT/SGPT 24 U/L (12-78); BLOOD UREA NITROGEN 39 mg/dl (7-18); CALCIUM 10.8 mg/dl (8.5-10.1); CARBON DIOXIDE 26 mmol/L (21-32); CREATININE 1.58 mg/dl (0.60-1.20); GLUCOSE 109 mg/dl (70-99); POTASSIUM 3.7 mmol/L (3.5-5.1); SODIUM 135 mmol/L (136-145)
[2017-10-24 17:14] LABS: ALKALINE PHOSPHATASE 78 U/L (45-117); AST/SGOT 9 U/L (15-37); TOTAL PROTEIN 7.7 gm/dl (6.4-8.2)
== END | disposition home or self-care (01) ==
LOC: C.LABBC 15:06
PROVIDERS: ATTEND Physician Assistant Medical
DX: R05 Cough (principal); R10.13 Epigastric pain; N39.0 Urinary tract infection, site not specified; E11.9 Type 2 diabetes mellitus without complications; R53.83 Other fatigue; E55.9 Vitamin D deficiency, unspecified; R00.0 Tachycardia, unspecified

== ENCOUNTER → 2017-11-12 | Outpatient (CLI) | payer OTHER ==
[2017-11-12 13:35] LABS: HEMATOCRIT 31.8 % (37-47); HEMOGLOBIN 10.2 g/dL (12.0-16.0); MEAN CORPUSCULAR HEMOGLOBIN 32.4 pg (25-34); MEAN CORPUSCULAR HGB CONC 32.1 g/dl (32-36); MEAN PLATELET VOLUME 10.1 fL (7.4-10.4); PLATELET COUNT 549 K/uL (130-400); RED CELL DISTRIBUTION WIDTH CV 19.8 % (11.5-14.5); RED CELL DISTRIBUTION WIDTH SD 71.7 fL (36.4-46.3); WHITE BLOOD COUNT 7.11 K/uL (4.8-10.8)
[2017-11-12 14:01] LABS: BLOOD UREA NITROGEN 34 mg/dl (7-18); CALCIUM 8.8 mg/dl (8.5-10.1); CARBON DIOXIDE 24 mmol/L (21-32); CREATININE 1.45 mg/dl (0.60-1.20); GLUCOSE 95 mg/dl (70-99); POTASSIUM 4.2 mmol/L (3.5-5.1); SODIUM 134 mmol/L (136-145)
[2017-11-12 14:06] LABS: TRANSFERRIN 255 mg/dl (200-360)
== END | disposition home or self-care (01) ==
LOC: C.LABBC 10:45
PROVIDERS: ATTEND Physician Assistant Medical
DX: N39.0 Urinary tract infection, site not specified (principal); D64.9 Anemia, unspecified; N18.3 Chronic kidney disease, stage 3 (moderate); R31.9 Hematuria, unspecified

== ENCOUNTER → 2017-11-24 | Outpatient (CLI) | payer OTHER | END | disposition home or self-care (01) | LOC: C.LABSPEC 17:04 | PROVIDERS: ATTEND Physician Assistant Medical | DX: R30.0 Dysuria (principal) ==

== ENCOUNTER → 2017-12-12 | Outpatient (CLI) | payer OTHER | END | disposition home or self-care (01) | LOC: C.LABBC 09:27 | PROVIDERS: ATTEND Physician Assistant Medical | DX: N39.0 Urinary tract infection, site not specified (principal) ==

== ENCOUNTER → 2018-02-19 | Outpatient (CLI) | payer OTHER | END | disposition home or self-care (01) | LOC: C.LABBC 09:29 | PROVIDERS: ATTEND Internal Medicine | DX: E11.65 Type 2 diabetes mellitus with hyperglycemia (principal) ==

== ENCOUNTER 2018-12-24 07:42 | Inpatient (IN) ==
--- NOTE | 2018-12-08 08:58 | Anesthesiology Consultation ---
Date of Service December 08, 2018 Assessment & Plan (1) Encounter for pre-operative examination: Chart Review Chart Review: Acceptable Risk for Surgery and Patient seen in Pre Admission Testing Consults Requested none Teaching & Discussion Pre-Anesthesia Teaching/Discussion Notes: Instructed NPO after midnight before surgery, except medications with 15 cc of water. Medication instructions provided according to the PAT guidelines. History Surgery Operation Date: 12/24/18 07:30 Proposed Procedures p Laminectomy and Fusion L2-L5 - Darrel Mane DO Height/Weight Height: 5 ft 7 in Weight: 82.5 kg Allergies Allergy/AdvReac Type Severity Reaction Status Date / Time nitrofurantoin Allergy Severe HEADACHE Verified 12/01/18 15:11 tetracycline Allergy Severe RASH ON Verified 12/01/18 15:11 FACE [id number] Reductase AdvReac Intermediate LE edema Verified 12/01/18 15:11 Inhibitor Medications Home Medications Medication Instructions Recorded Confirmed Last Taken cholecalciferol (vitamin D3) 1,000 unit PO QAM 10/26/18 12/01/18 Unknown [Vitamin D3] cyclobenzaprine 10 mg PO DAILY PRN 10/26/18 12/01/18 Unknown ferrous sulfate [Feosol] 325 mg PO QAM 10/26/18 12/01/18 Unknown folic acid 1 mg PO QAM 10/26/18 12/01/18 Unknown gabapentin 100 mg PO BID 10/26/18 12/01/18 Unknown gabapentin 600 mg PO HS 10/26/18 12/01/18 Unknown insulin glargine 16 unit SUBCUT QPM 10/26/18 12/01/18 Unknown levothyroxine 100 mcg PO QAM 10/26/18 12/01/18 Unknown lisinopril 20 mg PO QAM 10/26/18 12/01/18 Unknown magnesium 250 mg PO QAM 10/26/18 12/01/18 Unknown metformin 500 mg PO BID 10/26/18 12/01/18 Unknown metoprolol succinate 100 mg PO QAM 10/26/18 12/01/18 Unknown omeprazole 20 mg PO QAM 10/26/18 12/01/18 Unknown prednisone 5 mg PO QAM 10/26/18 12/01/18 Unknown rosuvastatin 40 mg PO HS 10/26/18 12/01/18 Unknown trimethoprim 100 mg PO HS #1 tab 10/30/18 12/01/18 Unknown amlodipine 5 mg PO QAM 12/08/18 12/08/18 Unknown Past Medical History Medical History Rheumatoid arthritis Lumbar radiculopathy, acute (Acute) Chronic kidney disease, stage IV (severe) Diabetes mellitus History of pneumonia recent hospitalization october 2018 [facility] Hyperlipidemia Hypertension Hypothyroidism On prednisone therapy Past Surgical History Surgical History History of x2 History of hysterectomy total History of total left knee replacement Past Anesthesia History No Hx of Anesthesia Complications and No Family Hx of Anesthesia Complications History of PONV Yes (40+ years ago with hysterectomy) Motion Sickness Screening History of Motion Sickness: No Social History Smoking Status: Never smoker Do You Dip or Chew Tobacco: No Hx Alcohol Use: Yes Alcohol type: beer and wine alcohol intake frequency: holidays/special occasions only Hx Substance Use: No substance use type: does not use Exercise / Class Metabolic Activity II 4-5 Yardwork/Stairs/Walk up hill (For last 3 years, has had decreased mobility. Able to climb FOS. Denies CP or SOB. ) Review of Systems Patient denies chest pain, shortness of breath, dyspnea on exertion, cough, wheezing, palpitations. +joint pain (Hands, back) +acid reflux (controlled with medication) Physical Exam Vital Signs BP: 131/85 P: 92 R: 16 T: 98.0 SPO2: 96% on RA ENMT Thyromental Distance: < 3.5 Finger Breadths (3) Mallampati Class: I Neck normal visual inspection, trachea midline and + limited neck extension Respiratory normal respiratory effort Auscultation: lungs clear to auscultation bilaterally Cardiovascular Rate/Rhythm: regular rate and regular rhythm Heart Sounds: no murmur Vessels: no carotid bruit Neurologic moves all extremities Psychiatric Orientation: alert and oriented x 3 Testing Electrocardiogram Date: 12/08/18 Findings: + NSR @ (95) and + no change from (10/26/18) Chest X-Ray Date: 12/08/18 Findings: + NAD FINDINGS: The cardiomediastinal and hilar silhouettes are within normal limits. There is no pneumothorax, pleural effusion, lobar airspace consolidation or overt pulmonary edema. Minimal left lung base atelectasis/scarring. Mild degenerative changes about the spine and shoulders. IMPRESSION: No acute process. Echocardiogram Date: 10/31/17 EF: 60-65% LV Function: normal RWMA: + none Other Findings: + LVH (Moderate, concentric) and + diastolic dysfunction (Type I) Valvular Disease: + no significant valvular disease No significant change from prior study on 05/10/16. Cervical Spine Date: 12/08/18 XR cervical spine 2 or 3V HISTORY: 63 years-old Female PAT, Rheumatoid Arthritis preoperative exam in a patient with rheumatoid arthritis. COMPARISON: Cervical spine radiographs 08/22/2015 TECHNIQUE: 3 views of the cervical spine FINDINGS: Mild to moderate intervertebral disc space narrowing at C4-C5, C5-C6 and C6-C7. Mild to moderate multilevel spondylitic spurring and facet arthrosis. There is no acute fracture or subluxation. C1-C2 interval appears normal. No prevertebral soft tissue swelling. IMPRESSION: 1. Alignment is preserved with both flexion and extension. 2. Degenerative changes as above. Laboratory Results 12/08/18 09:43 12/08/18 09:43 Blood Type A Positive 12/08/18 09:43 Antibody Screen NEGATIVE 12/08/18 09:43 PT 10.0 Seconds (9.0-12.0) 12/08/18 09:43 INR 1.0 (0.9-1.1) 12/08/18 09:43 APTT 20.8 Seconds (21.0-31.0) L 12/08/18 09:43 Hemoglobin A1c 6.2 % (4.5-5.6) H 12/08/18 09:43 Patient has known CKD, stage IV. Per PCP note "She has anemia which is multifactorial including the acute pneumonia, chronic disease state (rheumatoid arthritis and CKD). We have been following this with routine laboratory work."
--- NOTE | 2018-12-08 09:23 | PAT Medication Instructions ---
Medication Instructions Date of Service December 08, 2018 Home Medications Medication Instructions Recorded trimethoprim 100 mg PO HS #1 tab 10/30/18 cholecalciferol (vitamin D3) 1,000 unit PO QAM cyclobenzaprine 10 mg PO DAILY NEEDED ferrous sulfate [Feosol] 325 mg PO QAM folic acid 1 mg PO QAM gabapentin 100 mg PO BID gabapentin 600 mg PO HS insulin glargine 16 unit SUBCUT QPM levothyroxine 100 mcg PO QAM lisinopril 20 mg PO QAM magnesium 250 mg PO QAM metformin 500 mg PO BID metoprolol succinate 100 mg PO QAM omeprazole 20 mg PO QAM prednisone 5 mg PO QAM rosuvastatin 40 mg PO HS trimethoprim 100 mg PO HS amlodipine 5 mg PO QAM DO NOT take the morning of surgery cholecalciferol (vitamin D3) 1,000 unit PO QAM cyclobenzaprine 10 mg PO DAILY NEEDED ferrous sulfate [Feosol] 325 mg PO QAM folic acid 1 mg PO QAM lisinopril 20 mg PO QAM magnesium 250 mg PO QAM metformin 500 mg PO BID Take morning of surgery With a small sip of water, OTHERWISE NOTHING TO EAT OR DRINK AFTER MIDNIGHT: gabapentin 100 mg PO BID levothyroxine 100 mcg PO QAM metoprolol succinate 100 mg PO QAM omeprazole 20 mg PO QAM prednisone 5 mg PO QAM amlodipine 5 mg PO QAM Take evening before surgery gabapentin 600 mg PO HS insulin glargine 16 unit SUBCUT QPM metformin 500 mg PO BID rosuvastatin 40 mg PO HS trimethoprim 100 mg PO HS Other Notes If you have any questions please call us at [phone] or [phone] or [phone] or [phone]
[2018-12-08 10:25] LABS: Basophils # (auto) 0.07 K/uL (0-0.2); Basophils % (auto) 0.9 %; Eosinophils # (auto) 0.33 K/uL (0-0.5); Eosinophils % (auto) 4.4 %; Hematocrit (blood only) 31.3 % (37-47); Hemoglobin 9.7 g/dL (12.0-16.0); Immature Granulocytes # (auto) 0.03 K/uL (0.00-0.02); Immature Granulocytes % (auto) 0.4 %; Lymphocytes # (auto) 2.45 K/uL (1.2-3.4); Lymphocytes % (auto) 32.7 %; Mean Corpuscular Volume 100.3 fL (80-100); Mean Platelet Volume 9.1 fL (7.4-10.4); Monocytes # (auto) 0.27 K/uL (0.11-0.59); Monocytes % (auto) 3.6 %; Neutrophils # (auto) 4.35 K/uL (1.4-6.5); Platelet Count 417 K/uL (130-400); RDW Coefficient of Variation 18.2 % (11.5-14.5); RDW Standard Deviation 65.3 fL (36.4-46.3); Red Blood Count 3.12 M/uL (4.2-5.4)
--- NOTE | 2018-12-08 10:28 | XRay Report ---
XR chest Pre-admission PA/Lat HISTORY: 63 years-old Female pat preoperative exam. No acute chest complaints COMPARISON: CTA of the chest and chest radiographs 10/29/2018 TECHNIQUE: PA and lateral views of the chest FINDINGS: The cardiomediastinal and hilar silhouettes are within normal limits. There is no pneumothorax, pleur al effusion, lobar airspace consolidation or overt pulmonary edema. Minimal left lung base atelectasi s/scarring. Mild degenerative changes about the spine and shoulders. IMPRESSION: No acute process. The above report was generated using voice recognition software. It may contain grammatical, syntax o r spelling errors. Electronically signed by: Girish Cohen M.D. 12/08/2018 10:27 AM
--- NOTE | 2018-12-08 10:31 | XRay Report ---
XR cervical spine 2 or 3V HISTORY: 63 years-old Female PAT, Rheumatoid Arthritis preoperative exam in a patient with rheumatoi d arthritis. COMPARISON: Cervical spine radiographs 08/22/2015 TECHNIQUE: 3 views of the cervical spine FINDINGS: Mild to moderate intervertebral disc space narrowing at C4-C5, C5-C6 and C6-C7. Mild to moderate mult ilevel spondylitic spurring and facet arthrosis. There is no acute fracture or subluxation. C1-C2 int erval appears normal. No prevertebral soft tissue swelling. IMPRESSION: 1. Alignment is preserved with both flexion and extension. 2. Degenerative changes as above. The above report was generated using voice recognition software. It may contain grammatical, syntax o r spelling errors. Electronically signed by: Girish Cohen M.D. 12/08/2018 10:30 AM
[2018-12-08 10:34] LABS: Alanine Aminotransferase 52 U/L (12-78); Albumin Level 3.5 gm/dl (3.4-5.0); Aspartate Aminotransferase 36 U/L (15-37); BUN Creatinine Ratio 16.6 (10-20); Bilirubin Direct < 0.1 mg/dl (0-0.2); Blood Urea Nitrogen 25 mg/dl (7-18); Calcium 8.8 mg/dl (8.5-10.1); Carbon Dioxide 25 mmol/L (21-32); Chloride 106 mmol/L (98-107); Creatinine Clr Calc Pharmacy 42.7 ml/min; Est GFR (African American) 42.9; Glucose 106 mg/dl (70-99); Potassium 4.1 mmol/L (3.5-5.1); Sodium 139 mmol/L (136-145)
[2018-12-08 10:36] LABS: Partial Thromboplastin Ratio 0.8; Partial Thromboplastin Time 20.8 Seconds (21.0-31.0)
[2018-12-08 10:37] LABS: Alkaline Phosphatase 50 U/L (45-117); Bilirubin,Total 0.2 mg/dl (0.2-1); Total Protein 6.9 gm/dl (6.4-8.2)
[2018-12-08 11:26] LABS: Estimated Average Glucose 131 mg/dl; Hemoglobin A1C 6.2 % (4.5-5.6)
--- NOTE | 2018-12-23 12:20 | History and Physical Report ---
DATE OF ADMISSION: 12/24/2018 CHIEF COMPLAINT: Back pain, lower extremity difficulty, paresthesias, numbness and tingling, progressive pain, progressive neurological deficit. HISTORY OF PRESENT ILLNESS: Daniela is delightful. She is compromised. She is 63. She has a progressive neurogenic claudication of her spine along with other medical issues. She has failed conservative care. PAST MEDICAL HISTORY: Positive for diabetes, rheumatoid, high cholesterol, hypertension. PAST SURGICAL HISTORY: , hysterectomy, knee replacement. ALLERGIES: Listed. MEDICATIONS: Vitamin D, folic acid, gabapentin, lisinopril, magnesium, metoprolol, prednisone, iron, insulin and metformin. FAMILY HISTORY: Diabetes, brain tumor, lung disease. SOCIAL HISTORY: She is , 2 children. REVIEW OF SYSTEMS: No fever, sweats, chills, weight loss, gain. Denies any chest pain, palpitations. Denies any asthma, wheezing. No nausea, vomiting. No urgency, frequency. She admits to numbness and tingling and immune deficiency because of her rheumatoid arthritis. PHYSICAL EXAMINATION: GENERAL: She is 5 feet 7 inches, 172 pounds. She is in no terrible distress. VITAL SIGNS: In the sitting position, blood pressure 130/40, pulse 80, respirations 16. HEENT: Pupils react to light and accommodation. Ear, nose and throat clear. ABDOMEN: Soft, nontender. NEUROLOGICAL: She has weakness of dorsiflexion, plantarflexion, slight gait abnormality. No signs of upper motor neuron issues, blunted knee jerk reflexes. Skin is intact. ASSESSMENT: Includes that of severe stenosis, lumbar spine. PLAN: Includes laminectomy and fusion, L2-L3, L3-L4 and L4-L5 lumbar spine.
[~2018-12-24 07:42] MED LIST changes: +CEFAZOLIN 2000MG 2,000 MG/15 ML SYR IV SCH; -FLV1 PO; -FLX10 PO; -LEFL10TA PO; -LEVO100T7 PO; -LEVO88TA3 PO; +LR 15ML/HR IV SCH; +LR 60ML/HR IV SCH; -MTH25 PO; -NRN600 PO; -PRED-301 PO; -TPRSR/50 PO
[2018-12-24] MEDS ORDERED: fentaNYL citrate 100 MCG/2 ML VIAL ONE (08:16)
[2018-12-24] MEDS ORDERED: PROPOFOL IV EMULSION 10 MG/ML 20 ML VIAL IV ONE (08:16)
[2018-12-24] MEDS ORDERED: ONDANSETRON INJ 2 MG/ML 2 ML VIAL ONE (08:16)
[2018-12-24] MEDS ORDERED: LIDOCAINE HCL 2% 2 ML VIAL/AMP(20MG/ML) INFIL ONE (08:16)
[2018-12-24] MEDS ORDERED: MIDAZOLAM HCL 1 MG/ML 2ML VIAL ONE (08:16)
[2018-12-24] MEDS ORDERED: ROCURONIUM BROMIDE 10 MG/ML 5 ML VIAL ONE (08:16)
[2018-12-24] MEDS: SODIUM CHLORIDE 0.9% 1,000 ML IV SCH ×2 (08:55→08:56)
[2018-12-24] MEDS ORDERED: GELATIN SPONGE SZ 100 ONE (09:42)
[2018-12-24] MEDS ORDERED: THROMBIN FOR SOLN 20000 UNIT KIT ONE (09:42)
[2018-12-24] MEDS ORDERED: VANCOMYCIN HCL 1000MG/20ML VIAL ONE (09:42)
[2018-12-24] MEDS ORDERED: BACITRACIN INJ 50,000 UNIT VIAL ONE (09:42)
[2018-12-24] MEDS ORDERED: BUPIVACAINE/EPINEPHRINE 0.5% MPF 1:200,000 30 ML VIAL ONE (09:42)
--- NOTE | 2018-12-24 09:43 | History & Physical Bridge Note ---
Date of Service December 24, 2018 History & Physical Bridge Note I have examined the patient, reviewed the History & Physical and in the interval since the performance of the History & Physical I have noted the following changes of clinical significance: no changes noted
[2018-12-24] MEDS ORDERED: ONDANSETRON INJ 2 MG/ML 2 ML VIAL IV PRN (10:07)
[2018-12-24] MEDS ORDERED: ATROPINE SULFATE 0.1 MG/ML 10ML SYR IV PRN (10:07)
[2018-12-24] MEDS ORDERED: MoRPHine SULFATE 10 MG/ML CARP/VIAL IV PRN (10:07)
[2018-12-24] MEDS ORDERED: ePHEDrine sulfate 50 MG/ML AMP IV PRN (10:07)
[2018-12-24] MEDS ORDERED: fentaNYL citrate 100 MCG/2 ML VIAL IV PRN (10:07)
[2018-12-24] MEDS ORDERED: PHENYLEPHRINE HCL 10 MG/ML VIAL ONE (11:55)
[2018-12-24] MEDS ORDERED: ePHEDrine sulfate 50 MG/ML SYR ONE (11:55)
[2018-12-24] MEDS ORDERED: NEOSTIGMINE METHYLSULFATE 5 MG/5 ML SYR ONE (12:33)
[2018-12-24] MEDS ORDERED: GLYCOPYRROLATE 0.2 MG/ML VIAL ONE (12:33)
--- NOTE | 2018-12-24 13:02 | Post Operative Brief Note ---
Immediate Post Op Note v1 Date of Surgery December 24, 2018 Pre & Post Diagnosis Operation Date: 12/24/18 09:50 Pre-Op Diagnosis: Disc Herniation Post-Op Diagnosis: Disc Herniation Procedure Operation Date: 12/24/18 09:50 Actual Procedures p L3-L4, L4-L5 Laminectomy and Fusion(Not Applicable) - Darrel Mane DO Surgeon Darrel Mane DO Mixer Machine Feeder milad Estimated Blood Loss 350 Findings Consistent with Post-Op Diagnosis Drains Zamorano Catheter and Hemovac Drain Complications none Overlapping Procedure I was immediately available: during the entire case.
--- NOTE | 2018-12-24 13:11 | Fluoroscopy Report ---
LUMBAR SPINE, INTRAOPERATIVE FLUOROSCOPY HISTORY: L3 L5 decompression and fusion. FLUOROSCOPY TIME: 10 seconds. FINDINGS: Intraoperative fluoroscopy was provided for the lumbar spine. A single fluoroscopic spot im age of the lower lumbar spine demonstrates posterior decompression and fusion from L3 through L5 with pedicle screws and rods. The hardware appears intact. IMPRESSION: Fluoroscopy provided for a L3-L5 posterior decompression and fusion. Electronically signed by: Sonny Moody M.D. 12/24/2018 1:10 PM
[2018-12-24] MEDS ORDERED: ICU PROTOCOL FOR HYPERGLYCEMIA PRN (13:18)
[2018-12-24] MEDS ORDERED: HYDROmorphone INJ 1 MG/ML SYRINGE IV PRN (13:31)
[2018-12-24] MEDS ORDERED: ACETAMINOPHEN 1,000 MG/100 ML VIAL IV STA (13:32)
[2018-12-24] MEDS ORDERED: ACETAMINOPHEN 1000 MG/100 ML IV IV ONE (13:35)
[2018-12-24] MEDS ORDERED: HYDROmorphone INJ 1 MG/ML SYRINGE ONE (13:36)
--- NOTE | 2018-12-24 13:52 | Operative Report ---
DATE OF OPERATION: 12/24/2018 PREOPERATIVE DIAGNOSIS: Severe spinal stenosis, L3, L4, L5. POSTOPERATIVE DIAGNOSIS: Severe spinal stenosis, L3, L4, L5. PROCEDURE: Included: 1. Decompression laminectomy at L3, L4 and L5, a 3-level laminectomy, decompression foraminotomy, partial facetectomy. 2. Pedicle screw instrumentation, L3, L4 and L5 lumbar spine. 3. Posterolateral fusion, L3, L4 and L5 SURGEON: Darrel Mane DO SMOG TECHNICIAN: Ki Byrd PA-C COMPLICATIONS: Zero. BLOOD LOSS: 350 mL. ANESTHETIC: General. Of note is the fact that the patient did have bradycardia a few little episodes during the surgical procedure, always responding appropriately and not prolonged bradycardia. DESCRIPTION OF PROCEDURE: The patient was taken to the operating room and placed prone, prepped and draped sterilely. We made a skin incision, fascial incision. We dissected down to the lamina, facet joints out over the transverse processes, put in deep self-retaining retractor. We had great visualization. I carefully and meticulously decompressed the lamina, L5, L4 and L3 lumbar spine. Foraminotomies, partial facetectomies. We then instrumented the spine and correcting slightly the flat back deformity, getting pedicle screws in at L3, L4, L5 lumbar spine. I made an attempt at an interbody fusion at L3-L4 on the left hand side, I felt that the foraminal opening in the disk level was too small, too tight. I was putting the patient in neurological danger. I then locked down the construct, irrigated thoroughly with a half liter of saline with bacitracin. We bone grafted out over the transverse processes at L3, L4, L5, lumbar spine. We closed fascia to fascia with 1 Vicryl suture over a Hemovac drain over vancomycin powder. 2-0 in the subcuticular layer, 3-0 nylon on the skin, sterile dressing applied. The patient returned to PACU stable. There were no apparent interoperative complications as stated. Sponge and needle count correct. IMPLANTS USED: By the [facility]. I attest to the content of the Intraoperative Record and any orders documented therein. Any exception s are noted below.
--- NOTE | 2018-12-24 14:30 | Anesthesiology Progress Note ---
Date of Service December 24, 2018 Anesthesia Post Procedure Vital Signs Vital Signs: Temp Pulse Pulse Resp BP BP Pulse Ox 12/24/18 14:20 85 22 93/57 L 97 12/24/18 14:10 86 18 100/53 L 99 12/24/18 14:00 85 20 100/59 L 99 12/24/18 13:50 87 17 84/52 L 98 12/24/18 13:40 80 21 88/56 L 100 12/24/18 13:30 80 16 94/59 L 100 12/24/18 13:20 81 15 105/60 100 12/24/18 13:11 97.5 F L 84 15 89/47 L 100 12/24/18 08:43 98.4 F 93 H 20 165/95 H 98 Pain Intensity Lower Back: Pain Intensity: 10 Notes Mental Status: alert / awake / arousable and participated in evaluation Patient Amnestic to Procedure: Yes Nausea / Vomiting: adequately controlled Pain: adequately controlled Airway Patency, RR, SpO2: stable & adequate BP & HR: stable & adequate Hydration State: stable & adequate Anesthetic Complications: no major complications apparent and Pt Satisfied with anesthetic care
[2018-12-24 15:22] LABS: Hematocrit (blood only) 28.3 % (37-47); Hemoglobin 8.5 g/dL (12.0-16.0)
[2018-12-24] MEDS ORDERED: GLUCOSE 10 TABS/TUBE PO PRN (16:00)
[2018-12-24] MEDS ORDERED: GLUCAGON FOR INJ 1 MG VIAL IM PRN (16:00)
[2018-12-24] MEDS ORDERED: DEXTROSE 50% 50 ML SYRINGE IV PRN (16:00)
[2018-12-24] MEDS ORDERED: GLUCOSE 40% GEL 15 GM TUBE PO PRN (16:00)
[2018-12-24] MEDS ORDERED: CARBOHYDRATES FOR HYPOGLYCEMIA PO PRN (16:00)
--- NOTE | 2018-12-24 16:43 | Critical Care Consultation ---
Date of Consultation December 24, 2018 Assessment & Plan (1) Spinal stenosis: Reason Critically Ill: 63-year-old female past medical history significant for spinal stenosis presents postop L 3 to L5 laminectomy. Transferred to ICU for hypotension. Not requiring pressors, will observe and likely transfer from ICU soon. Neuro - [facility] ICU: Negative Spinal stenosis/neuropathystatus post L3-L5 laminectomy today, EBL 350 -Patient became hypotensive postop, not requiring vasopressors at this time -We will cautiously give narcotics for pain due to soft pressures -We will monitor in ICU until pressure stabilizes -Neuro exam at baseline, monitor frequently -Continue gabapentin when appropriate Cardiac - Hypotensionpatient has history of hypertension but hypotensive postop, likely due to anesthesia -Holding home blood pressure medications for now -Caution with narcotics postprocedure -Not currently requiring vasopressors, blood pressures improving -Received 1200 LR intraprocedure, EBL 350, will recollect CBC Hyperlipidemiacontinue home statin Respiratory - Currently on room air GI - No nausea or vomiting, restart carb diet RENAL/LYTES CKDcreatinine and BUN stable -Monitor with routine BMPs Foleystrict I's and O's ENDO DM type IIholding metformin -ICU hyperglycemic protocol Rheumatoid arthritiscontinue methotrexate and prednisone Hypothyroidismcontinue Synthroid HEME - Chronic anemiacontinue ferrous sulfate -EBL 350, H&H stable -Monitor routine CBCs ID - No indication for antibiotic therapy at this time LINES/IV ACCESS - Peripheral IVs DVT PROPHYLAXIS - SCDs, anticoagulation be started by surgeon when appropriate (2) Hypertension: (3) Diabetes mellitus type II, controlled: (4) Neuropathy: (5) Chronic kidney disease, stage IV (severe): Supervising Physician Co-Signing Physician Notes I have personally evaluated and examined this patient. I agree with assessment and plan of Noemy DORSEY. Patient has anemia chronic disease at baseline. She is on fairly mental prednisone however with the relative hypotension I will give her a single dose of stress dose Solu-Cortef 50 mg IV x1. I discussed the case with Dr. Brito with regards to blood transfusion. We will hold blood products at this time. History of Present Illness Attending Physician: Darrel Mane DO History of Present Illness 63-year-old female with past medical history of CKD, hypertension, rheumatoid arthritis, DM type II, and severe spinal stenosis who presents postop for L3 to L5 laminectomy. Patient transferred to ICU from PACU due to hypotension. EBL 350 during procedure, patient received 1200 LR. Currently pressures are soft but within normal limits with systolics in 90s map greater than 65 without vasopressor. Patient is alert and oriented, only complains of back pain. Will give IV fentanyl and monitor closely for hemodynamic effects. Currently patient is alert X 3, she denies nausea, chest pain, syncope, shortness of breath, dizziness. She does have weakness in lower extremities bilaterally. She is able to wiggle toes and push and pull down with feet bilaterally, and displays full sensation bilaterally in the lower extremities. However she is unable to lift heels off of bed, but the patient states this is baseline for her. Will monitor in ICU for now, likely able to downgrade when pressures improve. Allergies Allergy/AdvReac Type Severity Reaction Status Date / Time nitrofurantoin Allergy Severe HEADACHE Verified 12/24/18 08:28 tetracycline Allergy Severe RASH ON Verified 12/24/18 08:28 FACE Kvppvxk-[id number]-Mon Reductase AdvReac Intermediate LE edema Verified 12/24/18 08:28 Inhibitor Home Medications Home Medications Medication Instructions Recorded Confirmed Type cholecalciferol (vitamin D3) 1,000 unit PO QAM 10/26/18 12/24/18 History [Vitamin D3] cyclobenzaprine 10 mg PO DAILY PRN 10/26/18 12/24/18 History ferrous sulfate [Feosol] 325 mg PO QAM 10/26/18 12/24/18 History folic acid 1 mg PO QAM 10/26/18 12/24/18 History gabapentin 100 mg PO BID 10/26/18 12/24/18 History gabapentin 600 mg PO HS 10/26/18 12/24/18 History insulin glargine 16 unit SUBCUT QPM 10/26/18 12/24/18 History levothyroxine 100 mcg PO QAM 10/26/18 12/24/18 History lisinopril 20 mg PO QAM 10/26/18 12/24/18 History magnesium 250 mg PO QAM 10/26/18 12/24/18 History metformin 500 mg PO BID 10/26/18 12/24/18 History metoprolol succinate 100 mg PO QAM 10/26/18 12/24/18 History omeprazole 20 mg PO QAM 10/26/18 12/24/18 History prednisone 5 mg PO QAM 10/26/18 12/24/18 History rosuvastatin 40 mg PO HS 10/26/18 12/24/18 History trimethoprim 100 mg PO HS #1 tab 10/30/18 12/24/18 Rx amlodipine 5 mg PO QAM 12/08/18 12/24/18 History acetaminophen [Tylenol Extra 1,000 mg PO Q6H PRN 12/24/18 12/24/18 History Strength] adalimumab [Humira] 40 units SUBCUT DIRECTED 12/24/18 12/24/18 History methotrexate sodium 20 mg PO WK 12/24/18 12/24/18 History Patient History Medical History Rheumatoid arthritis Lumbar radiculopathy, acute (Acute) Chronic kidney disease, stage IV (severe) Diabetes mellitus History of pneumonia recent hospitalization october 2018 [facility] Hyperlipidemia Hypertension Hypothyroidism On prednisone therapy Surgical History Hx of tonsillectomy (Acute) History of x2 History of hysterectomy total History of total left knee replacement Social History Preferred Language: Latvian Communication Ability: Effective Beliefs That Will Affect Care: None marital status: Current Living Situation: Spouse current occupational status: retired Other Information That Helps Us Care for You: No 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 Feels Safe at Home: Yes Safety Concerns: Feels Safe At This Time Smoking Status: Never smoker Hx Alcohol Use: Yes Hx Substance Use: No Review of Systems 12 system ROS reviewed and negative except for HPI. See above Physical Exam Vital Signs (Past 24 Hours): Last Vital Signs Temp 36.9 C 12/24/18 14:40 Pulse 85 12/24/18 15:10 Resp 14 12/24/18 15:10 BP 100/63 12/24/18 15:10 Pulse Ox 98 12/24/18 15:10
[2018-12-24] MEDS ORDERED: OXYCODONE HCL IR 5 MG TAB (IMMEDIATE RELEASE) PO PRN (16:46)
[2018-12-24] MEDS ORDERED: ACETAMINOPHEN 325 MG TAB PO PRN (16:46)
[2018-12-24] MEDS ORDERED: SODIUM CHLORIDE 0.9% 250 ML IV PRN (16:50)
[2018-12-24] MEDS: METFORMIN HCL 500 MG TAB PO SCH (17:13)
[2018-12-24] MEDS: OXYCODONE HCL IR 5 MG TAB (IMMEDIATE RELEASE) PO PRN ×2 (17:14→23:04)
[2018-12-24] MEDS ORDERED: HYDROCORTISONE SOD SUCCINATE 100 MG/2 ML VIAL IV STA (18:41)
[2018-12-24 19:15] LABS: Hematocrit (blood only) 27.9 % (37-47); Hemoglobin 8.6 g/dL (12.0-16.0)
[2018-12-24] MEDS: INSULIN GLARGINE SOLOSTAR 100 UNITS/ML 3 ML PEN SQ SCH (21:14)
[2018-12-24] MEDS: ROSUVASTATIN CALCIUM 20 MG TAB PO SCH (21:14)
[2018-12-24] MEDS: GABAPENTIN 600 MG TAB PO SCH (21:14)
[2018-12-25 04:58] LABS: Hemoglobin 8.8 g/dL (12.0-16.0)
[2018-12-25] MEDS: LEVOTHYROXINE SODIUM 100 MCG TABLET PO SCH (05:04)
[2018-12-25] MEDS: OXYCODONE HCL IR 5 MG TAB (IMMEDIATE RELEASE) PO PRN ×3 (05:04→16:57)
[2018-12-25 05:15] LABS: Creatinine Clr Calc Pharmacy 43.7 ml/min; Est GFR (African American) 44.7; Est GFR (Non-African American) 38.6; Potassium 4.4 mmol/L (3.5-5.1)
--- NOTE | 2018-12-25 06:49 | Critical Care Progress Note ---
Date of Service December 25, 2018 Physical Exam Vital Signs (Past 24 Hours): Last Vital Signs Temp 36.8 C 12/25/18 04:00 Pulse 92 H 12/25/18 06:00 Resp 18 12/25/18 06:00 BP 82/53 L 12/25/18 06:00 Pulse Ox 97 12/25/18 06:00
--- NOTE | 2018-12-25 06:57 | Critical Care Progress Note ---
Date of Service December 25, 2018 Assessment & Plan (1) Spinal stenosis: Reason Critically Ill: 63-year-old female past medical history significant for spinal stenosis presents postop L 3 to L5 laminectomy. Transferred to ICU for hypotension. Not requiring pressors, will observe and likely transfer from ICU soon. Neuro - [facility]: Negative Spinal stenosis/neuropathystatus post L3-L5 laminectomy today, EBL 350 -Tylenol and oxycodone as needed Cardiac - Hypotensionimproved Hypertension: Patient does have a history of chronic kidney disease which could contribute to renal vascular hypertension -I also believe the patient likely had a component of adrenergic drive secondary to pain response which is now resolved -Patient is on chronic steroid therapy she was given a single dose of 50 mg of Solu-Cortef as a stress dose -We will check EKG. -Holding amlodipine today -Will restart lisinopril for renal vascular protection -Will restart metoprolol Hyperlipidemiacontinue home statin Respiratory - Currently on room air GI - No nausea or vomiting, restart carb diet -Stool softener given iron and narcotic use RENAL/LYTES CKDcreatinine and BUN stable -Monitor with routine BMPs Discontinue Zamorano ENDO DM type II - Blood sugars within acceptable range Rheumatoid arthritiscontinue methotrexate and prednisone Hypothyroidismcontinue Synthroid HEME - Chronic anemiacontinue ferrous sulfate -EBL 350, H&H stable -H&H stable -Will start iron and vitamin C in the morning ID - No indication for antibiotic therapy at this time LINES/IV ACCESS - Peripheral IVs DVT PROPHYLAXIS - SCDs, anticoagulation be started by surgeon when appropriate Patient stable for downgrade out of ICU today. (2) Hypertension: (3) Diabetes mellitus type II, controlled: (4) Neuropathy: (5) Chronic kidney disease, stage IV (severe): Subjective Pain is significantly improved currently 5 out of 10 her baseline was normally 10 out of 10. She is obviously puzzled by her low blood pressure she admits that she was in significant pain for last several months and one possibility she proposed was that she was having so much pain that was the cause of her elevated blood pressure. Her primary doc was attempting to wean her steroids and she had decreased to 2.5 mg of prednisone daily she unfortunately suffered a episode of pneumonia and they increased her steroids to 5 daily and then have remained at that dose and were to continue that dose through surgery and will reattempt weaning later. Patient denies chest pain, dizziness, lightheadedness Physical Exam Vital Signs (Past 24 Hours): Last Vital Signs Temp 36.8 C 12/25/18 04:00 Pulse 92 H 12/25/18 06:00 Resp 18 12/25/18 06:00 BP 82/53 L 12/25/18 06:00 Pulse Ox 97 12/25/18 06:00 General: Alert. nontoxic. Skin: Warm, dry, Head: Atraumatic Ears, nose, mouth and throat: airway patent Cardiovascular: Normal peripheral perfusion Respiratory: no respiratory distress Gastrointestinal: Non distended Musculoskeletal: No deformity patient is able to dorsiflex and plantarflex without difficulty she is also able to bend the knee. Her paresthesias preoperatively have resolved. Results & Data Laboratory Results 12/25/18 12/25/18 12/25/18 Range/Units 04:18 04:18 03:45 Hgb 8.8 L (12.0-16.0) g/dL Hct 29.0 L (37-47) % Sodium 136 (136-145) mmol/L Potassium 4.4 (3.5-5.1) mmol/L Chloride 103 (98-107) mmol/L Carbon Dioxide 28 (21-32) mmol/L Anion Gap 5.0 (3-11) BUN 20 H (7-18) mg/dl Creatinine 1.44 H (0.6-1.2) mg/dl Est Cr Clr Drug Dosing 43.7 ml/min Est GFR ( Amer) 44.7 Est GFR (Non-Af Amer) 38.6 BUN/Creatinine Ratio 14.0 (10-20) Glucose 107 H (70-99) mg/dl POC Glucose 107 H (70-99) Calcium 8.0 L (8.5-10.1) mg/dl Ionized Calcium (1.12-1.32) mmol/L Nasal Screen MRSA (PCR) (Negative) Blood Type Antibody Screen Crossmatch 12/24/18 12/24/18 12/24/18 Range/Units 21:13 18:54 18:54 Hgb 8.6 L (12.0-16.0) g/dL Hct 27.9 L (37-47) % Sodium (136-145) mmol/L Potassium (3.5-5.1) mmol/L Chloride (98-107) mmol/L Carbon Dioxide (21-32) mmol/L Anion Gap (3-11) BUN (7-18) mg/dl Creatinine (0.6-1.2) mg/dl Est Cr Clr Drug Dosing ml/min Est GFR ( Amer) Est GFR (Non-Af Amer) BUN/Creatinine Ratio (10-20) Glucose (70-99) mg/dl POC Glucose 99 (70-99) Calcium (8.5-10.1) mg/dl Ionized Calcium 1.12 (1.12-1.32) mmol/L Nasal Screen MRSA (PCR) (Negative) Blood Type Antibody Screen Crossmatch 12/24/18 12/24/18 12/24/18 Range/Units 16:21 15:25 13:50 Hgb 8.5 L (12.0-16.0) g/dL Hct 28.3 L (37-47) % Sodium (136-145) mmol/L Potassium (3.5-5.1) mmol/L Chloride (98-107) mmol/L Carbon Dioxide (21-32) mmol/L Anion Gap (3-11) BUN (7-18) mg/dl Creatinine (0.6-1.2) mg/dl Est Cr Clr Drug Dosing ml/min Est GFR ( Amer) Est GFR (Non-Af Amer) BUN/Creatinine Ratio (10-20) Glucose (70-99) mg/dl POC Glucose 100 H (70-99) Calcium (8.5-10.1) mg/dl Ionized Calcium (1.12-1.32) mmol/L Nasal Screen MRSA (PCR) Positive A (Negative) Blood Type Antibody Screen Crossmatch 12/24/18 12/24/18 12/24/18 Range/Units 13:11 08:17 08:07 Hgb (12.0-16.0) g/dL Hct (37-47) % Sodium (136-145) mmol/L Potassium (3.5-5.1) mmol/L Chloride (98-107) mmol/L Carbon Dioxide (21-32) mmol/L Anion Gap (3-11) BUN (7-18) mg/dl Creatinine (0.6-1.2) mg/dl Est Cr Clr Drug Dosing ml/min Est GFR ( Amer) Est GFR (Non-Af Amer) BUN/Creatinine Ratio (10-20) Glucose (70-99) mg/dl POC Glucose 121 H 90 (70-99) Calcium (8.5-10.1) mg/dl Ionized Calcium (1.12-1.32) mmol/L Nasal Screen MRSA (PCR) (Negative) Blood Type A Positive Antibody Screen NEGATIVE Crossmatch See Detail
[2018-12-25] MEDS: FERROUS SULFATE 325 MG TAB PO SCH (07:43)
[2018-12-25] MEDS: predniSONE 5 MG TAB PO SCH (07:43)
[2018-12-25] MEDS: METOPROLOL SUCC 50MG EXT REL TAB PO SCH (07:43)
[2018-12-25] MEDS: METFORMIN HCL 500 MG TAB PO SCH ×2 (07:43→17:37)
[2018-12-25] MEDS: LISINOPRIL 20 MG TAB PO SCH (07:43)
[2018-12-25] MEDS: GABAPENTIN 100 MG CAP PO SCH ×2 (07:43→11:05)
[2018-12-25] MEDS: MAGNESIUM OXIDE 400 MG TAB PO SCH (07:43)
[2018-12-25] MEDS: FOLIC ACID 1 MG TAB PO SCH (07:44)
[2018-12-25] MEDS: CHOLECALCIFEROL 1,000 UNITS TAB PO SCH (07:44)
[2018-12-25] MEDS: ASCORBIC ACID 500 MG TAB PO SCH (07:44)
[2018-12-25] MEDS: PANTOprazole 40 MG TAB PO SCH (07:44)
[2018-12-25] MEDS ORDERED: ALBUMIN 5% 250 ML IV SCH (07:45)
[2018-12-25] MEDS: ALBUMIN 5% 250 ML IV SCH ×2 (08:25→08:52)
--- NOTE | 2018-12-25 10:30 | Progress Note ---
DATE: 12/25/2018 SUBJECTIVE: She is alert, oriented, pain control today. She had very extensive lumbar spine surgery performed yesterday. We sent her to the intensive care unit because of her low blood pressure, low pulse. She has responded nicely. Hemoglobin is stabilizing, still low. She is still anemic from blood loss and actually preop blood loss. She actually came into the hospital with hemoglobin of 9.7. OBJECTIVE: Moves all 4 extremities. Alert, oriented. No chest pain, shortness of breath. ASSESSMENT: 1. Status post lumbar spine reconstructive surgery. 2. Acute blood loss anemia, even though the EBL was only 350 mL. 3. Anemia of chronic disease. 4. Chronic kidney disease. 5. Hypertension. 6. Diabetes, controlled. PLAN: We will send her out to a regular floor today. I think she should be stabilized either on the regular med/surg floor or a monitored bed such on the second floor. I think we should keep continued all orders, get her up with physical therapy. Hopefully, we can get her discharged home, I would think by Friday, probably not by Friday.
[2018-12-25] MEDS: INSULIN GLARGINE SOLOSTAR 100 UNITS/ML 3 ML PEN SQ SCH (20:43)
[2018-12-25] MEDS: GABAPENTIN 600 MG TAB PO SCH (21:40)
[2018-12-25] MEDS: ROSUVASTATIN CALCIUM 20 MG TAB PO SCH (21:40)
[2018-12-26] MEDS: OXYCODONE HCL IR 5 MG TAB (IMMEDIATE RELEASE) PO PRN ×3 (00:03→12:30)
[2018-12-26] MEDS: LEVOTHYROXINE SODIUM 100 MCG TABLET PO SCH (05:54)
[2018-12-26] MEDS ORDERED: metHOTREXate sodium 2.5 MG TAB PO SCH (09:00)
[2018-12-26] MEDS: FERROUS SULFATE 325 MG TAB PO SCH (09:20)
[2018-12-26] MEDS: GABAPENTIN 100 MG CAP PO SCH ×2 (09:21→12:31)
[2018-12-26] MEDS: CHOLECALCIFEROL 1,000 UNITS TAB PO SCH (09:21)
[2018-12-26] MEDS: LISINOPRIL 20 MG TAB PO SCH (09:22)
[2018-12-26] MEDS: FOLIC ACID 1 MG TAB PO SCH (09:23)
[2018-12-26] MEDS: MAGNESIUM OXIDE 400 MG TAB PO SCH (09:23)
[2018-12-26] MEDS: METOPROLOL SUCC 50MG EXT REL TAB PO SCH (09:26)
--- NOTE | 2018-12-26 10:36 | Progress Note ---
DATE: 12/26/2018 SUBJECTIVE: She is alert, oriented this morning. Minimal complaints of pain. She has basically no pain in the sitting position. She has pain in the upright position. No neurological deficits. OBJECTIVE: Moves all extremities. Taking p.o. Hemoglobin 8.8, which is satisfactory. Hematocrit 29.0. Wound protected. ASSESSMENT: Status post major reconstructive spine surgery. Other comorbidities that are well documented. PLAN: Try to get up and ambulatory today and hopefully discharge to her own home tomorrow.
[2018-12-26] MEDS: ASCORBIC ACID 500 MG TAB PO SCH (10:59)
[2018-12-26] MEDS: predniSONE 5 MG TAB PO SCH (11:00)
[2018-12-26] MEDS: METFORMIN HCL 500 MG TAB PO SCH ×2 (11:00→18:16)
[2018-12-26] MEDS: PANTOprazole 40 MG TAB PO SCH (11:01)
[2018-12-26] MEDS: GABAPENTIN 600 MG TAB PO SCH (21:57)
[2018-12-26] MEDS: ROSUVASTATIN CALCIUM 20 MG TAB PO SCH (21:57)
[2018-12-26] MEDS: INSULIN GLARGINE SOLOSTAR 100 UNITS/ML 3 ML PEN SQ SCH (21:58)
[2018-12-27] MEDS: OXYCODONE HCL IR 5 MG TAB (IMMEDIATE RELEASE) PO PRN (05:40)
[2018-12-27] MEDS: LEVOTHYROXINE SODIUM 100 MCG TABLET PO SCH (05:40)
[2018-12-27] MEDS: predniSONE 5 MG TAB PO SCH (08:55)
[2018-12-27] MEDS: MAGNESIUM OXIDE 400 MG TAB PO SCH (08:55)
[2018-12-27] MEDS: METOPROLOL SUCC 50MG EXT REL TAB PO SCH (08:55)
[2018-12-27] MEDS: GABAPENTIN 100 MG CAP PO SCH ×2 (08:55→11:45)
[2018-12-27] MEDS: CHOLECALCIFEROL 1,000 UNITS TAB PO SCH (08:55)
[2018-12-27] MEDS: FOLIC ACID 1 MG TAB PO SCH (08:55)
[2018-12-27] MEDS: LISINOPRIL 20 MG TAB PO SCH (08:55)
[2018-12-27] MEDS: METFORMIN HCL 500 MG TAB PO SCH ×2 (08:55→18:52)
[2018-12-27] MEDS: FERROUS SULFATE 325 MG TAB PO SCH (08:55)
[2018-12-27] MEDS: PANTOprazole 40 MG TAB PO SCH (08:55)
[2018-12-27] MEDS: ASCORBIC ACID 500 MG TAB PO SCH (08:55)
--- NOTE | 2018-12-27 09:52 | Discharge Summary ---
SUBJECTIVE: She is alert, oriented. Minimal complaints of pain. Sleeping comfortably on rounds here this morning, easily arousable. OBJECTIVE: Blood pressure stable, pulse stable. Temperature afebrile. Wound clean. PLAN: We will discharge Daniela home later on today around lunchtime. She has a walker at home. She has a prescription on her chart. She has instructions and precautions and she has appropriate home environment.
[2018-12-27] MEDS ORDERED: CEFEPIME 1,000 MG in SYRINGE 0 ML IV STA (16:51)
[2018-12-27] MEDS ORDERED: VANCOMYCIN CONSULT ACTIVE PRN (16:51)
[2018-12-27] MEDS ORDERED: NALOXONE HCL 0.4 MG/1 ML VIAL/CARP IV STA (17:10)
--- NOTE | 2018-12-27 17:25 | Consultation ---
Date of Consultation December 27, 2018 Assessment & Plan (1) Lethargy: (2) Acute encephalopathy: - Transfer to tele for closer monitoring - Pt febrile with tmax = 38.8, tachycardic, other VSS. - Checking cbc, prp, mag, phos, as labs have not been followed since prior to surgery - Infectious workup with BCx x 2, urine culture, CXR, lactic acid. - Start empiric cefepime/vanco once cultures obtained. - Pt c/o chest pressure to nursing will trend troponins - pt denies chest pain and pressure during my visit. - check EKG - appears to be in sinus tach, PACs but no other acute findings, no ST wave inversions or signs of ischemia. - Check CXR portable now with increased lethargy and falling asleep during exam- Possible that this is narcotic induced, will administerd naloxone 0.2 mg now and see if this improves pt status. Hold further narcotics. (3) Diabetes mellitus type II, controlled: - Follow glucose with accuchecks achs - Continue insulin glargine 16 U subq QPM, metformin 500 mg BID (4) Neuropathy: - Continue gabapentin, pt has been taking this for years for lumbar stenosis and neuropathy with referred pain into her legs. (5) Anemia: - Follow cbc. Continue iron supplementation daily (6) Hyperlipidemia: - Cont rosuvastatin (7) Hypertension: - Continue amlodipine QAM, lisinopril 20 mg PO QAM, metoprolol succinate 100 mg QAM for now. - BP stable at 116/62 at beside. If worsening BP then will initiate fluid resuscitation in the event of possible sepsis and hold all antihypertensives. - (8) Hypothyroidism: - Continue levotyroxine 100 mcg QAM (9) Chronic kidney disease, stage IV (severe): (10) Rheumatoid arthritis: - Continue on methotrexate 20 mg per wk, prednisone 5 mg QAM, Humira. (11) Spinal stenosis: - S/p elective laminectomy by Dr. Mane - Holding narcotics with increased lethargy - Continue gabapentin (12) Lumbar radiculopathy, acute: - As above. Supervising Physician Co-Signing Physician Notes see my other PN today History of Present Illness Reason for Consultation: Increased lethargy, fever, tachycardia Requesting Physician: Dr. Mane Attending Physician: Darrel Mane, DO History of Present Illness This is a 63 yo F with PMhx of HTN, HLD, DM II, anemia, CKD stage IV, neuropathy, rheumatoid arthritis on methotrexate and Humira, lumbar radiculopathy, spinal stenosis who underwent elective L3-L4, L4-L5 laminectomy and fusion by Dr. Mane on 12/24/18. Pt was seen and examined for worsening lethergy, increased tachycardia and fever of 38.8 by request. Per nursing the patient had been awake and doing well with PT yesterday, however today she has been asleep and lethargic for the majority of the day. Pt ate some breakfast and slept the rest of the morning after working with PT/OT around 930 per her . She does answer some of my questions but is falling asleep in between q&a at bedside. She admits to feeling like she has a fever but denies chills. She denies any acute pain, chest pain, chest pressure, shortness of breath, abdominal pain, n/v/d. Pt denies any other acute complaints. Allergies Allergy/AdvReac Type Severity Reaction Status Date / Time nitrofurantoin Allergy Severe HEADACHE Verified 12/24/18 08:28 tetracycline Allergy Severe RASH ON Verified 12/24/18 08:28 FACE Wuygvuz-Bgh-Dxh Reductase AdvReac Intermediate LE edema Verified 12/24/18 08:28 Inhibitor Home Medications Home Medications Medication Instructions Recorded Confirmed Type cholecalciferol (vitamin D3) 1,000 unit PO QAM 10/26/18 12/24/18 History [Vitamin D3] cyclobenzaprine 10 mg PO DAILY PRN 10/26/18 12/24/18 History ferrous sulfate [Feosol] 325 mg PO QAM 10/26/18 12/24/18 History folic acid 1 mg PO QAM 10/26/18 12/24/18 History gabapentin 100 mg PO BID 10/26/18 12/24/18 History gabapentin 600 mg PO HS 10/26/18 12/24/18 History insulin glargine 16 unit SUBCUT QPM 10/26/18 12/24/18 History levothyroxine 100 mcg PO QAM 10/26/18 12/24/18 History lisinopril 20 mg PO QAM 10/26/18 12/24/18 History magnesium 250 mg PO QAM 10/26/18 12/24/18 History metformin 500 mg PO BID 10/26/18 12/24/18 History metoprolol succinate 100 mg PO QAM 10/26/18 12/24/18 History omeprazole 20 mg PO QAM 10/26/18 12/24/18 History prednisone 5 mg PO QAM 10/26/18 12/24/18 History rosuvastatin 40 mg PO HS 10/26/18 12/24/18 History trimethoprim 100 mg PO HS #1 tab 10/30/18 12/24/18 Rx amlodipine 5 mg PO QAM 12/08/18 12/24/18 History acetaminophen [Tylenol Extra 1,000 mg PO Q6H PRN 12/24/18 12/24/18 History Strength] adalimumab [Humira] 40 units SUBCUT DIRECTED 12/24/18 12/24/18 History methotrexate sodium 20 mg PO WK 12/24/18 12/24/18 History oxycodone 10 mg PO Q6H PRN #40 tab 12/26/18 Rx Patient History Medical History Rheumatoid arthritis Lumbar radiculopathy, acute (Acute) Chronic kidney disease, stage IV (severe) Diabetes mellitus History of pneumonia recent hospitalization october 2018 [facility] Hyperlipidemia Hypertension Hypothyroidism On prednisone therapy Surgical History Hx of tonsillectomy (Acute) History of x2 History of hysterectomy total History of total left knee replacement Social History Communication Ability: Effective Beliefs That Will Affect Care: None marital status: Current Living Situation: Spouse current occupational status: retired Other Information That Helps Us Care for You: No other: 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 Feels Safe at Home: Yes Safety Concerns: Feels Safe At This Time Smoking Status: Never smoker Hx Alcohol Use: Yes Hx Substance Use: No Review of Systems Constitutional: No fever, sweats or chills Eyes: No diplopia, no worsening or blurred vision ENT: normal hearing, no trouble swallowing Respiratory: No cough, sputum, dyspnea at rest or on exertion Cardiovascular: No chest pain, tightness or palpitations Abdomen: No pain, nausea, vomiting, diarrhea. Last BM prior to surgery Musculoskeletal: No joint pain, calf pain, swelling Neurologic: No weakness, numbness/tingling, or balance problems Psychiatric: No anxiety or depression Skin: No rash or itch Physical Exam Vital Signs (Past 24 Hours): Last Vital Signs Temp 38.8 C H 12/27/18 16:08 Pulse 101 H 12/27/18 16:08 Resp 14 12/27/18 16:08 BP 116/62 12/27/18 16:08 Pulse Ox 97 12/27/18 16:08 Physical Exam: General: awaken to verbal stimuli bu requires , alert, no apparent distress Head: Normocephalic, atraumatic ENT: PERRL, EOMI, no pharyngeal exudate, mucous membranes moist Chest: Clear to auscultation, on room air, no adventitious breath sounds Cardiac: +tachycardic, no murmur, no JVD, normal peripheral pulses, good capillary refill Abdominal: NABS x 4 quadrants, soft, nontender to palpation, no rebound, guarding or tenderness Extremities: Normal inspection, no peripheral edema or erythema, calfs nontender to palpation Back: dressing c/d/i. No surrounding erythema around surgical site. Psych: Normal mood and affect Neuro: AAO x 3, strength intact bilaterally and related 5/5, no motor deficits, speech is clear, no peripheral sensory deficits
[2018-12-27] MEDS ORDERED: CEFEPIME 1,000 MG in SYRINGE 0 ML IV ONE (17:30)
--- NOTE | 2018-12-27 17:30 | XRay Report ---
XR chest 2V routine CLINICAL HISTORY: Atypical chest pain COMPARISON STUDY: 12/08/2018 FINDINGS: The heart is normal in size. There is no lobar consolidation. There are linear opacities on the left, likely atelectatic. There is mild prominence of central vessels and mild pulmonary vascula r congestion is suspected.[ There are no large effusions. IMPRESSION: Mild central vascular prominence without evidence of overt edema. Left basilar atelectasi s. No evidence of lobar consolidation. Electronically signed by: Jose Miguel Kulkarni M.D. 12/27/2018 5:29 PM
--- NOTE | 2018-12-27 17:42 | Hospitalist Progress Note ---
Date of Service December 27, 2018 Assessment & Plan (1) Spinal stenosis: (2) Hypertension: (3) Diabetes mellitus type II, controlled: (4) Neuropathy: (5) Chronic kidney disease, stage IV (severe): Patient seen and examined, discussed with physician library technical assistant about patient condition and care plan, agree current care plan, 63-year-old white female admitted to orthopedic service had a recent procedure, develop spiking fever associated with lethargic, possible complaining about chest tight past medical history significant for spinal stenosis presents postop L 3 to L5 laminectomy on December 24, 2018, which was 4 days ago. she needed transferred to ICU on december 24 whcih was on the day of procedure because of hypotension. When I see her she was drowsy, but awake able, conversational, follow-up commands, Reporting burning feelings in the incision area otherwise no pain reported no chest pain, denies cough sputum, denies dysuria urgency and frequency's, denies facial droop or slurry speeches, EKG was already done, there was no ST-T phase changes, Objective: Temperature 38.1 pulse 101, nurse rate 14 blood pressure 116/62, pulse ox 97% on 2 L/min General Appearance: Mild pale and lethargic, WD/WN, no apparent distress, Eyes: normal inspection, PERRL, EOMI, sclerae normal ENT: normal ENT inspection, hearing grossly normal, pharynx normal Neck: supple, no adenopathy, thyroid normal, no JVD, no carotid bruits, trachea midline Respiratory/Chest: chest non-tender, normal breath sounds, no respiratory distress, no accessory muscle use, breath sounds, rales, wheezing Cardiovascular: regular rate, rhythm, no JVD, no murmur Abdomen: normal bowel sounds, non tender, soft, no organomegaly, Extremities: normal range of motion, non-tender, normal inspection, no pedal edema, no calf tenderness, normal capillary refill, pelvis stable, Neurologic/Psychiatric: 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 nml as tested, no motor/sensory deficits, alert, normal mood/affect, oriented x 3 Skin: normal color, warm/dry, no rash Lymphatic: no adenopathy Assessment and plan: 63-year-old white female postop day 3 spiking fever, lethargic , Spinal stenosis/neuropathystatus post L3-L5 laminectomy Spiking fever possible sepsis associated with mild mental status changes lethargic, mild tachycardic With history of rheumatoid arthritis on immunosuppressant,, start broad-spectrum antibiotic, after send blood culture Lane patient required narcotic pain medicine around the clock, she is mild lethargic, want to watch the respiratory rate and pulse ox, Narcan in bedside as needed I also transfer her to family consumer science fcs teacher and nocturnal pulse ox monitor If any sign of sepsis or blood pressure drop, which was started steroid IV Physical Exam Vital Signs (Past 24 Hours): Last Vital Signs Temp 38.8 C H 12/27/18 16:08 Pulse 101 H 12/27/18 16:08 Resp 14 12/27/18 16:08 BP 116/62 12/27/18 16:08 Pulse Ox 97 12/27/18 16:08
[2018-12-27] MEDS ORDERED: VANCOMYCIN HCL 1,750 MG in SODIUM CHLORIDE 0.9% 500 ML IV ONE (18:00)
[2018-12-27] MEDS ORDERED: CEFEPIME CONSULT ACTIVE PRN (18:11)
[2018-12-27 18:39] LABS: Appearance Urine Clear (Clear); Bacteria Urine Automated Negative (Negative); Bilirubin Urine Negative (Negative); Blood Urine Negative (Negative); Color Urine Yellow; Epithelial Cell Urine Auto >30 /lpf (0-5); Glucose Urine UA Negative (Negative); Ketones Urine Trace (Negative); Leukocyte Esterase Urine 1+ (Negative); Nitrite Urine Negative (Negative); Protein Urine 1+ (Negative); RBC Urine Automated 0-4 /hpf (0-4); Specific Gravity Urine 1.015 (1.000-1.030); Urobilinogen Urine Negative (Negative); pH Urine 5.5 (4.5-7.5)
[2018-12-27 18:39] LABS: Basophils # (auto) 0.07 K/uL (0-0.2); Basophils % (auto) 0.5 %; Eosinophils # (auto) 0.18 K/uL (0-0.5); Eosinophils % (auto) 1.2 %; Hemoglobin 7.9 g/dL (12.0-16.0); Immature Granulocytes % (auto) 0.7 %; Lymphocytes # (auto) 2.04 K/uL (1.2-3.4); Lymphocytes % (auto) 13.5 %; Mean Corpuscular Volume 100.8 fL (80-100); Mean Platelet Volume 9.4 fL (7.4-10.4); Monocytes # (auto) 1.98 K/uL (0.11-0.59); Monocytes % (auto) 13.1 %; Neutrophils # (auto) 10.75 K/uL (1.4-6.5); Platelet Count 281 K/uL (130-400); RDW Coefficient of Variation 17.2 % (11.5-14.5); Red Blood Count 2.58 M/uL (4.2-5.4); White Blood Count 15.12 K/uL (4.8-10.8)
[2018-12-27 18:41] LABS: Mean Corpuscular Hgb Conc 30.4 g/dL (32-36)
[2018-12-27 18:57] LABS: BUN Creatinine Ratio 13.5 (10-20); Blood Urea Nitrogen 22 mg/dl (7-18); Calcium 8.8 mg/dl (8.5-10.1); Carbon Dioxide 29 mmol/L (21-32); Chloride 95 mmol/L (98-107); Creatinine Clr Calc Pharmacy 38.3 ml/min; Est GFR (African American) 38.2; Est GFR (Non-African American) 32.9; Glucose 119 mg/dl (70-99); Magnesium 2.2 mg/dl (1.8-2.4); Phosphorus 3.3 mg/dl (2.5-4.9); Potassium 4.6 mmol/L (3.5-5.1); Sodium 132 mmol/L (136-145)
[2018-12-27 18:58] LABS: Renal Epithelial Cells Urine 0-5 /lpf (0-5)
[2018-12-27 18:59] LABS: Amorphous Sediment Urine Present (None Prsent)
[2018-12-27 19:02] LABS: NT Pro B Type Natriuretic Pept 642 pg/ml (0-900); Troponin I < 0.015 ng/ml (0-0.045)
[2018-12-27 19:09] LABS: Polychromasia 1+; Stomatocytes 2+
[2018-12-27] MEDS: SODIUM CHLORIDE 0.9% 1000ML 1,000 ML IV SCH (19:36)
[2018-12-27] MEDS: ACETAMINOPHEN 500 MG TAB PO SCH (20:58)
[2018-12-27] MEDS: ROSUVASTATIN CALCIUM 20 MG TAB PO SCH (20:59)
[2018-12-27] MEDS: GABAPENTIN 600 MG TAB PO SCH (21:00)
[2018-12-27] MEDS: INSULIN GLARGINE SOLOSTAR 100 UNITS/ML 3 ML PEN SQ SCH (21:00)
[2018-12-27] MEDS: CEFEPIME 2,000 MG in SYRINGE 7.5 ML IV SCH (23:47)
[2018-12-28] MEDS: ACETAMINOPHEN 500 MG TAB PO SCH ×3 (04:43→19:54)
[2018-12-28] MEDS: SODIUM CHLORIDE 0.9% 1000ML 1,000 ML IV SCH (04:45)
[2018-12-28] MEDS: LEVOTHYROXINE SODIUM 100 MCG TABLET PO SCH (05:43)
[2018-12-28] MEDS: AMLODIPINE BESYLATE 5 MG TAB PO SCH (08:00)
[2018-12-28] MEDS: PANTOprazole 40 MG TAB PO SCH (08:00)
[2018-12-28] MEDS: METOPROLOL SUCC 50MG EXT REL TAB PO SCH (08:00)
[2018-12-28] MEDS: LISINOPRIL 20 MG TAB PO SCH (08:00)
[2018-12-28] MEDS: METFORMIN HCL 500 MG TAB PO SCH ×2 (08:00→17:18)
[2018-12-28] MEDS: MAGNESIUM OXIDE 400 MG TAB PO SCH (08:01)
[2018-12-28] MEDS: FOLIC ACID 1 MG TAB PO SCH (08:01)
[2018-12-28] MEDS: ASCORBIC ACID 500 MG TAB PO SCH (08:01)
[2018-12-28] MEDS: predniSONE 5 MG TAB PO SCH (08:01)
[2018-12-28] MEDS: CHOLECALCIFEROL 1,000 UNITS TAB PO SCH (08:01)
[2018-12-28] MEDS: FERROUS SULFATE 325 MG TAB PO SCH (08:01)
[2018-12-28] MEDS: GABAPENTIN 100 MG CAP PO SCH ×2 (08:01→12:42)
--- NOTE | 2018-12-28 09:14 | Hospitalist Progress Note ---
Date of Service December 28, 2018 Assessment & Plan (1) Lethargy: spinal stenosis presents postop L 3 to L5 laminectomy on December 24, 2018, (2) Acute encephalopathy: fever and lehtargy post op, cutlured and started empiric cefepime/vanco - Pt c/o chest pressure to nursing will trend troponins, EKG - appears to be in sinus tach, . (3) Diabetes mellitus type II, controlled: - Follow glucose with accuchecks achs - Continue insulin glargine QPM, metformin 500 mg BID (4) Neuropathy: - Continue gabapentin, pt has been taking this for years for lumbar stenosis and neuropathy with referred pain into her legs. (5) Anemia: -No some acute blood loss anemia orthopedics has chosen to proceed with transfusions on 12/28 2 units packed cells (6) Hyperlipidemia: - Cont rosuvastatin (7) Hypertension: - Continue amlodipine QAM, lisinopril 20 mg PO QAM, metoprolol succinate 100 mg QAM - (8) Hypothyroidism: - Continue levotyroxine 100 mcg QAM (9) Chronic kidney disease, stage IV (severe): (10) Rheumatoid arthritis: - Continue on methotrexate 20 mg per wk, prednisone 5 mg QAM, Humira. Watch for signs of steroid withdrawal (11) Spinal stenosis: - S/p elective laminectomy by Dr. Mane - Holding narcotics with increased lethargy over the weekend - Continue gabapentin (12) Lumbar radiculopathy, acute: - As above. Subjective Patient states is much better than yesterday she still slightly lethargic her hemoglobin remains at 7.9 orthopedics has ordered 2 units packed red blood cells. Initial urine cultures unremarkable blood cultures are pending she said no recurrence of her fever Review of Systems ROS: She remains weak and tired no focal complaints No double vision blurry vision No problems with speech or swallowing No palpitations, chest pain or pressure No Wheezing or breathing issues No abdominal pain nausea vomiting diarrhea changes in appetite or weight No burning urine urine frequency or changes in color No focal joint pain or muscle pain No skin rashes or oral lesions No unusual bruising or bleeding She has surgical site back pain and improvement of the numbness of her feet over her prehospital condition No changes in memory or confusion Physical Exam Vital Signs (Past 24 Hours): Last Vital Signs Temp 36.5 C 12/28/18 07:07 Pulse 97 H 12/28/18 07:20 Resp 20 12/28/18 07:07 BP 115/75 12/28/18 07:07 Pulse Ox 95 12/28/18 07:07 ROS: well nourished well developed. The patient appeared well nourished and normally developed. Vital signs as documented. Head exam is unremarkable. normocephalic, atraumatic Neck is without jugular venous distension, thyromegaly, or lymphademopathy Lungs are clear to auscultation and percussion. Cardiac exam reveals Rhythm is regular. First and second heart sounds normal. Abdominal exam reveals normal bowel sounds, no masses, no organomegaly Extremities are nonedematous and both pedal pulses are present Neurologic exam is A&Ox3, she is gross sensation to her feet and can spontaneously dorsiflex plantarflex and lift her legs off the bed Psychologically seems neither anxious or depressed Skin is warm Dry without bruises or lesions
[2018-12-28 09:25] LABS: Creatinine Clr Calc Pharmacy 37.6 ml/min; Est GFR (African American) 42.9
[2018-12-28] MEDS ORDERED: VANCOMYCIN HCL 1,000 MG in SODIUM CHLORIDE 0.9% 250 ML IV STA (09:44)
--- NOTE | 2018-12-28 10:49 | Pharmacy Report ---
Pharmacy Abx Dose Short Note - Date of Service December 28, 2018 - Assessment & Plan Assessment * 63 year old F admitted 12/24 for lumbar laminectomy with brief ICU stay post-op for hypotension * Cefepime/vancomycin started 12/27 for fever spike, AMS. WBC elevated to 15.12 * SCr with slight improvement today, and nearing baseline Vancomycin * Goal vancomycin trough 15-20 mcg/mL * Random vancomycin level obtained 15 hours after 21 mg/kg load was therapeutic at 16.5 mcg/mL * OK to schedule vancomycin (despite renal dysfunction) as SCr is nearing baseline. * Will use maintenance dose of 15 mg/kg dosed near estimated vancomycin t1/2 of 19 hours * Trough prior to the 4th overall dose Plan * Vancomycin 1000 mg IV q18h * Trough 12/29 @ 2130 Pharmacy will continue to follow and will adjust dose/frequency as necessary. Thank you.
[2018-12-28] MEDS: CEFEPIME 2,000 MG in SYRINGE 7.5 ML IV SCH ×2 (12:42→23:23)
[2018-12-28] MEDS ORDERED: SODIUM CHLORIDE 0.9% 250 ML IV PRN ×2 (13:32→13:53)
--- NOTE | 2018-12-28 15:03 | Progress Note ---
DATE: 12/28/2018 SUBJECTIVE: She is alert, oriented today. Pain controlled. Does seem a little lethargic. OBJECTIVE: Vital signs stable. Pulse slightly elevated. Pressure slightly decreased. Afebrile. Wound not inspected. Hemoglobin from yesterday was 7.9. ASSESSMENT: Acute blood loss anemia, lethargy and excessive narcotics. PLAN: Includes hopefully prepared to get her discharged tomorrow. We will give her some blood today. Get her up and ambulate. We will see her, hopefully get her discharged again tomorrow.
[2018-12-28] MEDS: ONDANSETRON INJ 2 MG/ML 2 ML VIAL IV PRN (15:39)
[2018-12-28] MEDS ORDERED: FUROSEMIDE 20 MG in SYRINGE 0 ML IV ONE (17:27)
[2018-12-28] MEDS: INSULIN GLARGINE SOLOSTAR 100 UNITS/ML 3 ML PEN SQ SCH (20:45)
[2018-12-28] MEDS: ROSUVASTATIN CALCIUM 20 MG TAB PO SCH (20:45)
[2018-12-28] MEDS: GABAPENTIN 600 MG TAB PO SCH (21:16)
[2018-12-29] MEDS: ONDANSETRON INJ 2 MG/ML 2 ML VIAL IV PRN ×2 (01:16→11:00)
[2018-12-29] MEDS: ACETAMINOPHEN 500 MG TAB PO SCH ×3 (03:44→20:47)
[2018-12-29] MEDS: VANCOMYCIN HCL 1,000 MG in SODIUM CHLORIDE 0.9% 250 ML IV SCH ×2 (04:04→22:03)
[2018-12-29] MEDS: LEVOTHYROXINE SODIUM 100 MCG TABLET PO SCH (06:41)
[2018-12-29] MEDS ORDERED: BISACODYL 10 MG SUPP PR STA (08:09)
[2018-12-29] MEDS ORDERED: BISACODYL 5 MG TABEC PO ONE (08:36)
[2018-12-29] MEDS: METFORMIN HCL 500 MG TAB PO SCH ×2 (08:43→16:40)
[2018-12-29] MEDS: FOLIC ACID 1 MG TAB PO SCH (08:43)
[2018-12-29] MEDS: AMLODIPINE BESYLATE 5 MG TAB PO SCH (08:43)
[2018-12-29] MEDS: FERROUS SULFATE 325 MG TAB PO SCH (08:43)
[2018-12-29] MEDS: LISINOPRIL 20 MG TAB PO SCH (08:43)
[2018-12-29] MEDS: MAGNESIUM OXIDE 400 MG TAB PO SCH (08:43)
[2018-12-29] MEDS: ASCORBIC ACID 500 MG TAB PO SCH (08:43)
[2018-12-29] MEDS: GABAPENTIN 100 MG CAP PO SCH ×2 (08:43→12:03)
[2018-12-29] MEDS: CHOLECALCIFEROL 1,000 UNITS TAB PO SCH (08:43)
[2018-12-29] MEDS: predniSONE 5 MG TAB PO SCH (08:45)
[2018-12-29 08:58] LABS: Basophils # (auto) 0.07 K/uL (0-0.2); Basophils % (auto) 0.7 %; Eosinophils # (auto) 0.53 K/uL (0-0.5); Hematocrit (blood only) 33.2 % (37-47); Hemoglobin 10.8 g/dL (12.0-16.0); Immature Granulocytes # (auto) 0.07 K/uL (0.00-0.02); Immature Granulocytes % (auto) 0.7 %; Lymphocytes % (auto) 13.2 %; Mean Corpuscular Hgb Conc 32.5 g/dL (32-36); Mean Corpuscular Volume 96.2 fL (80-100); Mean Platelet Volume 9.1 fL (7.4-10.4); Monocytes # (auto) 1.27 K/uL (0.11-0.59); Neutrophils # (auto) 7.25 K/uL (1.4-6.5); Neutrophils % (auto) 68.4 %; Platelet Count 266 K/uL (130-400); RDW Coefficient of Variation 17.2 % (11.5-14.5); RDW Standard Deviation 60.4 fL (36.4-46.3); Red Blood Count 3.45 M/uL (4.2-5.4); White Blood Count 10.59 K/uL (4.8-10.8)
--- NOTE | 2018-12-29 09:00 | XRay Report ---
XR chest 1V portable CLINICAL HISTORY: eval for chf/pneumonia, pt is hypoxic dyspnea COMPARISON STUDY: 12/27/2018 FINDINGS: Lungs are considered clear. Minimal platelike atelectasis left base. Diaphragms are smooth. No focal infiltrate. IMPRESSION: Improved exam with minimal residual platelike atelectasis left base. The above report was generated using voice recognition software. It may contain grammatical, syntax or spelling errors. Electronically signed by: Cortez Rebolledo M.D. 12/29/2018 8:59 AM
[2018-12-29 09:26] LABS: Creatinine Clr Calc Pharmacy 45.1 ml/min; Est GFR (African American) 46.6; Est GFR (Non-African American) 40.2
[2018-12-29] MEDS: METOPROLOL SUCC 50MG EXT REL TAB PO SCH (09:31)
[2018-12-29] MEDS: PANTOprazole 40 MG TAB PO SCH (09:32)
--- NOTE | 2018-12-29 10:52 | Progress Note ---
DATE: 12/29/2018 SUBJECTIVE: Daniela is having difficulty this morning. She has significant difficulty with constipation, slight elevation in fever. Still has a feeling of malaise. She did get 2 units of packed RBCs last evening. ASSESSMENT: Status post reconstructive spine surgery, constipation, postop anemia. PLAN: Includes Dulcolax suppository, Dulcolax tablets. Hopefully, we can get her squared away today, up with physical therapy. Tentative discharge tomorrow.
[2018-12-29] MEDS ORDERED: KETOROLAC 30 MG/ML VIAL IV ONE (10:53)
[2018-12-29] MEDS ORDERED: KETOROLAC 30 MG/ML VIAL ONE (10:58)
[2018-12-29] MEDS: CEFEPIME 2,000 MG in SYRINGE 7.5 ML IV SCH (11:01)
[2018-12-29] MEDS: LACTOBACILLUS ACIDOPHILUS (FLORANEX) TAB PO SCH ×2 (12:03→16:40)
[2018-12-29] MEDS: DICLOFENAC SOD 1% GEL 100 GM TUBE EXT SCH ×2 (14:00→21:48)
--- NOTE | 2018-12-29 18:12 | Hospitalist Progress Note ---
Date of Service December 29, 2018 Assessment & Plan (1) Lethargy: spinal stenosis presents postop L 3 to L5 laminectomy on December 24, 2018, (2) Acute encephalopathy: fever and lethargy post op, cultured and started empiric cefepime/vanco cultures are negative to date - Pt c/o chest pressure not felt to be acute coronary syndrome . (3) Diabetes mellitus type II, controlled: - Diabetes control with insulin glargine QPM, metformin 500 mg BID (4) Neuropathy: - Continue gabapentin, pt has been taking this for years for lumbar stenosis and neuropathy with referred pain into her legs. Her head pain will use Toradol and Voltaren gel topically (5) Anemia: acute blood loss anemia orthopedics has chosen to proceed with t ransfusions on 12/28 2 units packed cells (6) Hyperlipidemia: - Cont rosuvastatin (7) Hypertension: - Continue amlodipine QAM, lisinopril 20 mg PO QAM, metoprolol succinate 100 mg QAM - (8) Hypothyroidism: - Continue levotyroxine 100 mcg QAM (9) Chronic kidney disease, stage IV (severe): (10) Rheumatoid arthritis: - Continue on methotrexate 20 mg per wk, prednisone 5 mg QAM, Humira. Watch for signs of steroid withdrawal (11) Spinal stenosis: - S/p elective laminectomy by Dr. Mane - Holding narcotics with increased lethargy - Continue gabapentin (12) Lumbar radiculopathy, acute: - As above. Subjective Patient feels slightly lethargic today she did receive 2 units of blood yester day her hemoglobin augmented appropriately if not slightly more so she does have some posterior neck pain and headache which are attempting to remedy with anti- inflammatories Review of Systems ROS: well nourished well developed. No double vision blurry vision planes of right posterior occipital headache which is reproducible by touch it is not positional headaches which would be expected with a spinal headache No problems with speech or swallowing No palpitations, chest pain or pressure No Wheezing or breathing issues No abdominal pain nausea vomiting diarrhea changes in appetite or weight No burning urine urine frequency or changes in color No focal joint pain or muscle pain No skin rashes or oral lesions No unusual bruising or bleeding She has improving lower back pain improving foot numbness and improving lower extremity strength No changes in memory or confusion Physical Exam Vital Signs (Past 24 Hours): Last Vital Signs Temp 36.6 C 12/29/18 15:06 Pulse 98 H 12/29/18 15:06 Resp 17 12/29/18 15:06 BP 138/88 12/29/18 15:06 Pulse Ox 91 12/29/18 15:06 The patient appeared well nourished and normally developed. Vital signs as documented. Head exam is unremarkable. normocephalic, atraumatic she has some tenderness to insertion of her cervical musculature on the occipital knob in the back of her skull is not red hot or tender and feels more like a inflammatory issue than an infectious issue Neck is without jugular venous distension, thyromegaly, or lymphademopathy Lungs are clear to auscultation and percussion. Cardiac exam reveals Rhythm is regular. First and second heart sounds normal. Abdominal exam reveals normal bowel sounds, no masses, no organomegaly Extremities are nonedematous and both pedal pulses are present Neurologic exam is A&Ox3, no focal deficits, strength is equal bilateral slightly diminished to the lower extremities Skin is warm Dry without bruises or lesions
[2018-12-29] MEDS: GABAPENTIN 600 MG TAB PO SCH (20:47)
[2018-12-29] MEDS: ROSUVASTATIN CALCIUM 20 MG TAB PO SCH (20:48)
[2018-12-29] MEDS: INSULIN GLARGINE SOLOSTAR 100 UNITS/ML 3 ML PEN SQ SCH (20:49)
[2018-12-29] MEDS ORDERED: VANCOMYCIN TROUGH ONE (21:30)
[2018-12-29] MEDS: BISACODYL 5 MG TABEC PO SCH (21:48)
[2018-12-30] MEDS: CEFEPIME 2,000 MG in SYRINGE 7.5 ML IV SCH (00:18)
[2018-12-30] MEDS: ACETAMINOPHEN 500 MG TAB PO SCH (02:43)
[2018-12-30] MEDS: LEVOTHYROXINE SODIUM 100 MCG TABLET PO SCH (05:56)
[2018-12-30 08:23] VITALS: TEMP 99; O2SAT 98
[2018-12-30] MEDS: LACTOBACILLUS ACIDOPHILUS (FLORANEX) TAB PO SCH (08:27)
[2018-12-30] MEDS: GABAPENTIN 100 MG CAP PO SCH (08:27)
[2018-12-30] MEDS: AMLODIPINE BESYLATE 5 MG TAB PO SCH (08:27)
[2018-12-30] MEDS: MAGNESIUM OXIDE 400 MG TAB PO SCH (08:27)
[2018-12-30] MEDS: FERROUS SULFATE 325 MG TAB PO SCH (08:27)
[2018-12-30] MEDS: FOLIC ACID 1 MG TAB PO SCH (08:27)
[2018-12-30] MEDS: METFORMIN HCL 500 MG TAB PO SCH (08:27)
[2018-12-30] MEDS: predniSONE 5 MG TAB PO SCH (08:28)
[2018-12-30] MEDS: PANTOprazole 40 MG TAB PO SCH (08:28)
[2018-12-30] MEDS: ASCORBIC ACID 500 MG TAB PO SCH (08:28)
[2018-12-30] MEDS: CHOLECALCIFEROL 1,000 UNITS TAB PO SCH (08:28)
[2018-12-30] MEDS: METOPROLOL SUCC 50MG EXT REL TAB PO SCH (08:28)
[2018-12-30] MEDS: DICLOFENAC SOD 1% GEL 100 GM TUBE EXT SCH (08:30)
[2018-12-30] MEDS: BISACODYL 5 MG TABEC PO SCH (08:30)
[2018-12-30] MEDS: LISINOPRIL 20 MG TAB PO SCH (08:30)
[2018-12-30 08:41] VITALS: BP 119/68; PULSE 100
[2018-12-30 09:00] LABS: Est GFR (African American) 34.3; Est GFR (Non-African American) 29.6
--- NOTE | 2018-12-31 00:33 | Discharge Summary ---
SUBJECTIVE: Daniela is doing well today. Alert, oriented, no chest pain, shortness of breath. No abdominal discomfort, moves all extremities. Afebrile. Wound clean. ASSESSMENT: Status post laminectomy and fusion. Postop anemia, postop ileus, hypertension. PLAN: We will discharge home later today with home care. She has oxycodone her chart. Brace is to be worn at all times. She needs to be in upright posture with the walker. We will see her back in the office in 10 days.
--- NOTE | 2019-01-03 17:24 | Coding Query ---
CODING QUERY To promote full compliance with coding requirements relating to patient care, provider participation is requested in all cases of sharepoint admin uncertainty. Please assist us with the question(s) below: Coding Question(s): Please specify below, the type of bone graft used in the procedure on 12/24/18. ( ) Autologous Tissue Substitute ( ) Nonautologous Tissue Substitute ( ) Synthetic Substitute ( ) Both Autologous and Nonautologous Tissue Substitute ( ) Other: Please Specify Physician's Response(s): Thank you Pat Conroy Principal Diagnosis: "that condition established after study, to be chiefly responsible for occasioning the admission of the patient to the hospital for care." Co-Existing Principal Diagnosis: "when two or more diagnoses equally meet the criteria for principal diagnosis as determined by the circumstances of admission, diagnostic work up, and/or therapy provided, and the Alphabetic Index, Tabular List, or another coding guideline does not provide sequencing direction, any one of the diagnoses may be sequenced first." "When the physician has documented what appears to be a current diagnosis in the body of the record, but has not included the diagnosis in the final diagnostic statement, the physician should be asked whether the diagnosis should be added." (Source [facility]oding [facility] 2 QTR90. p3-4) JAMI
--- NOTE | 2019-01-03 17:41 | Coding Query ---
Your help is needed for correct coding of this account; please clarify if the patients Post-operative Ileus (documented on Discharge Summary) was: ( ) expected out of the surgery ( ) unexpected complication from the surgery ( )other please specify Thank you Pat FARRELL
--- NOTE | 2019-01-03 18:04 | Coding Query ---
CODING QUERY To promote full compliance with coding requirements relating to patient care, provider participation is requested in all cases of company laundry worker uncertainty. Please assist us with the question(s) below: Coding Question(s): Please clarify below, in your clinical opinion, regarding the Acute Encephalopathy documented on the 12/27 Consultation with documentation of increased lethargy and falling asleep during exam - possible that this is narcotic induced, will administerd naloxone 0.2 mg now and see if this improves pt status. ( x ) Acute Encephalopathy likely narcotic induced ( ) Acute Encephalopathy likely due to other: Please specify ( ) Acute Encephalopathy with unknown likely source Physician's Response(s): Thank you Pat Conroy Principal Diagnosis: "that condition established after study, to be chiefly responsible for occasioning the admission of the patient to the hospital for care." Co-Existing Principal Diagnosis: "when two or more diagnoses equally meet the criteria for principal diagnosis as determined by the circumstances of admission, diagnostic work up, and/or therapy provided, and the Alphabetic Index, Tabular List, or another coding guideline does not provide sequencing direction, any one of the diagnoses may be sequenced first." "When the physician has documented what appears to be a current diagnosis in the body of the record, but has not included the diagnosis in the final diagnostic statement, the physician should be asked whether the diagnosis should be added." ([facility] 2 QTR90. p3-4) JAMI
--- NOTE | 2019-01-05 10:11 | Operative Report ---
DATE OF OPERATION: 12/24/2018 CODING QUERY First coding query was the bone graft used, we used a demineralized bone matrix called DBM, also some autograft from the patient. It was not structural autograft. The other question was on the ileus postoperatively. It is a potential expected complication from narcotics and the rigorous spinal surgery, so it is not completely unexpected, but not completely surprising. I do not know that completely answers the question, but that is my opinion. I attest to the content of the Intraoperative Record and any orders documented therein. Any exception s are noted below.
== END 2018-12-30 09:37 | disposition home health service (06) | DRG 459 ==
LOC: ASU 07:42 → 1E 13:18 → 3W 12-25 13:18 → 2W 12-27 17:29

== ENCOUNTER 2019-04-15 08:01 | Inpatient (IN) ==
[2019-04-15] MEDS ORDERED: SODIUM CHLORIDE 0.9% 1000ML 1,000 ML IV ONE (08:45)
[2019-04-15] MEDS ORDERED: SODIUM CHLORIDE 0.9% 1000ML 500 ML IV ONE (08:45)
[2019-04-15] MEDS ORDERED: ACETAMINOPHEN 1,000 MG/100 ML VIAL IV ONE (08:45)
--- NOTE | 2019-04-15 09:00 | XRay Report ---
XR chest 1V portable HISTORY: 64 years-old Female Fever acute fever with headache COMPARISON: Chest radiograph 12/29/2018 TECHNIQUE: Portable AP view of the chest FINDINGS: Cardiomediastinal and hilar silhouettes are within normal limits. No pneumothorax, pleural effusion, focal airspace consolidation or overt pulmonary edema. Degenerative changes of the shoulders and spin e. IMPRESSION: No acute process. The above report was generated using voice recognition software. It may contain grammatical, syntax o r spelling errors. Electronically signed by: Girish Cohen M.D. 04/15/2019 8:59 AM
--- NOTE | 2019-04-15 09:15 | Emergency Department Note ---
History of Present Illness General Chief complaint: Fever Stated complaint: FEVER,VOMITTING, Time Seen by Provider: 04/15/19 08:22 History of Present Illness Maximum Pain Intensity: 4 64-year-old female who presents the emergency department for evaluation of a headache, fever, nausea, vomiting and diarrhea. The patient reports that her symptoms started 4 days ago, and have progressively worsened. She is concerned that she may be developing sepsis as she has had prior history of sepsis in 2017 as a result of a urinary tract infection. The patient denies any recent urinary symptoms. She also has a persistent draining wound from her back after undergoing surgery with Dr. Mane on 12/24/2018. She reports that the wound never healed, and has had persistent clear drainage. The patient has followed closely with Dr. Mane, who does not feel that the patient has developed any in fection in the back. The patient has not noticed any pain in the upper back, but reports pain radiating across the top of her head to the neck. She denies any photophobia. She had an explosive episode of watery diarrhea this morning. She denies any recent antibiotic use or exposure to anyone with C. difficile colitis. She currently rates her headache a 4 out of 10. The patient did take Tylenol without any relief of her headache. Her fever last night was 102.7 F. Home Medications Home Medications Medication Instructions Recorded Confirmed Type cholecalciferol (vitamin D3) 1,000 unit PO QAM 10/26/18 04/15/19 History [Vitamin D3] cyclobenzaprine 10 mg PO DAILY PRN 10/26/18 04/15/19 History ferrous sulfate [Feosol] 325 mg PO QAM 10/26/18 04/15/19 History folic acid 1 mg PO QAM 10/26/18 04/15/19 History gabapentin 600 mg PO HS 10/26/18 04/15/19 History insulin glargine 16 unit SUBCUT QPM 10/26/18 04/15/19 History levothyroxine 100 mcg PO QAM 10/26/18 04/15/19 History lisinopril 40 mg PO QAM 10/26/18 04/15/19 History magnesium 250 mg PO QAM 10/26/18 04/15/19 History metformin 500 mg PO BID 10/26/18 04/15/19 History metoprolol succinate 100 mg PO QAM 10/26/18 04/15/19 History omeprazole 20 mg PO QAM 10/26/18 04/15/19 History rosuvastatin 40 mg PO HS 10/26/18 04/15/19 History trimethoprim 100 mg PO HS #1 tab 10/30/18 04/15/19 Rx Humira 40 units SUBCUT DIRECTED 12/24/18 04/15/19 History acetaminophen [Tylenol Extra 1,000 mg PO Q6H PRN 12/24/18 04/15/19 History Strength] methotrexate sodium 20 mg PO WK 12/24/18 04/15/19 History Allergies Allergy/AdvReac Type Severity Reaction Status Date / Time nitrofurantoin Allergy Severe HEADACHE Verified 04/15/19 10:26 tetracycline Allergy Severe RASH ON Verified 04/15/19 10:26 FACE Ixssboa-Gdq-[id number] Reductase AdvReac Intermediate LE edema Verified 04/15/19 10:26 Inhibitor oxycodone AdvReac Drowsy Verified 04/15/19 10:26 Past Med/Surg History Medical History Rheumatoid arthritis (Acute) Lumbar radiculopathy, acute (Acute) Chronic kidney disease, stage IV (severe) Diabetes mellitus History of pneumonia recent hospitalization october 2018 [facility] Hyperlipidemia Hypertension Hypothyroidism On prednisone therapy Surgical History History of back surgery Hx of tonsillectomy (Acute) History of x2 History of hysterectomy total History of total left knee replacement Family History Father Diabetes Lung cancer Mother Diabetes Brain tumor Social History Preferred Language: Lebanese Communication Ability: Effective Visual Impairment: No Limitations Hearing Ability: Normal Manager Non Profit Required: No Beliefs That Will Affect Care: None marital status: Current Living Situation: Spouse current occupational status: retired Other Information That Helps Us Care for You: No other: 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 Feels Safe at Home: Yes Safety Concerns: Feels Safe At This Time Smoking Status: Never smoker Second Hand Exposure: No Hx Alcohol Use: No Hx Substance Use: No Review of Systems HEENT: Denies dizziness, visual problems, hearing loss, tinnitus. Denies difficulty swallowing or oral lesions. PULMONARY: Denies cough, shortness of breath, sputum production or hemoptysis. CARDIOVASCULAR: Denies chest pain, palpitations, dyspnea on exertion, orthopnea or peripheral edema. GASTROINTESTINAL: Reports diarrhea, constipation, nausea and vomiting without any significant abdominal pain. GENITOURINARY: Denies dysuria, frequency, urgency or nocturia. NEUROLOGIC: Denies history of epilepsy, CVA, TIA or chronic headaches. MUSCULOSKELETAL: Denies history of joint tenderness/swelling. SKIN: Denies rashes or lesions. PSYCHIATRIC: Denies history of depression or mental illness. ENDOCRINE: History of diabetes. Physical Exam Vital Signs Vital Signs - 24 hr 04/15/19 08:09 04/15/19 08:26 04/15/19 09:19 Temperature 37.9 C H Temperature Source Oral Sepsis Recent Fever Within 48 Hours Yes Sepsis Action Taken by Nursing No Action Required Pulse Rate Pulse Rate [Apical] 117 H Pulse Rate from SpO2 Sensor Respiratory Rate 20 20 Respiratory Effort / Characteristics Non-Labored Spontaneous Respiratory Depth Blood Pressure 150/87 H Blood Pressure [Left Arm] 157/94 H Blood Pressure Mean 108 Blood Pressure Mean [Left Arm] 115 Blood Pressure Position Sitting Pulse Oximetry 98 94 93 Oxygen Delivery Method Room Air Room Air Room Air 04/15/19 09:33 04/15/19 10:34 04/15/19 11:37 Temperature 38.2 C H Temperature Source Oral Sepsis Recent Fever Within 48 Hours Sepsis Action Taken by Nursing Pulse Rate Pulse Rate [Apical] 118 H 111 H 110 H Pulse Rate from SpO2 Sensor Respiratory Rate 20 18 18 Respiratory Effort / Characteristics Non-Labored Spontaneous Respiratory Depth Normal Normal Blood Pressure Blood Pressure [Left Arm] 141/99 H 128/79 129/77 Blood Pressure Mean Blood Pressure Mean [Left Arm] 113 95 94 Blood Pressure Position Pulse Oximetry 95 94 93 Oxygen Delivery Method Room Air Room Air Room Air 04/15/19 12:44 04/15/19 13:39 04/15/19 13:40 Temperature 37.1 C Temperature Source Oral Sepsis Recent Fever Within 48 Hours Sepsis Action Taken by Nursing Pulse Rate 114 H Pulse Rate [Apical] 107 H Pulse Rate from SpO2 Sensor 115 H Respiratory Rate 18 20 Respiratory Effort / Characteristics Respiratory Depth Normal Blood Pressure 132/80 Blood Pressure [Left Arm] 120/76 Blood Pressure Mean 97 Blood Pressure Mean [Left Arm] 90 Blood Pressure Position Pulse Oximetry 96 94 Oxygen Delivery Method Room Air Room Air 04/15/19 14:00 04/15/19 14:30 04/15/19 15:00 Temperature Temperature Source Sepsis Recent Fever Within 48 Hours Sepsis Action Taken by Nursing Pulse Rate 104 H 107 H 104 H Pulse Rate [Apical] Pulse Rate from SpO2 Sensor Respiratory Rate 20 18 13 Respiratory Effort / Characteristics Respiratory Depth Blood Pressure 125/71 117/65 119/66 Blood Pressure [Left Arm] Blood Pressure Mean 89 82 83 Blood Pressure Mean [Left Arm] Blood Pressure Position Pulse Oximetry 95 95 Oxygen Delivery Method Room Air Room Air 04/15/19 15:01 04/15/19 15:30 Temperature Temperature Source Sepsis Recent Fever Within 48 Hours Sepsis Action Taken by Nursing Pulse Rate 105 H 105 H Pulse Rate [Apical] Pulse Rate from SpO2 Sensor Respiratory Rate 18 14 Respiratory Effort / Characteristics Respiratory Depth Blood Pressure 106/68 Blood Pressure [Left Arm] Blood Pressure Mean 80 Blood Pressure Mean [Left Arm] Blood Pressure Position Pulse Oximetry Oxygen Delivery Method CONSTITUTIONAL: Healthy and well nourished. Alert and oriented X 3. Patient appears in mild discomfort. HEENT: Normocephalic, atraumatic. Pupils equal, round and reactive. Patient is not photophobic. Ears and nares are clear. No rhinorrhea. No posterior p haryngeal erythema or tonsillar hypertrophy/exudates. NECK: Full active range of motion without discomfort. LYMPHATICS: No cervical chain adenopathy. RESPIRATORY: Clear to auscultation bilaterally with no wheezing, crackles, rhonchi or stridor. CARDIOVASCULAR: Regular rate and rhythm with no murmurs, rubs or gallops. GASTROINTESTINAL: Bowel sounds present in all quadrants. No significant or focal tenderness to palpation of the abdomen. Negative CVA tenderness. MUSCULOSKELETAL: Full range of motion of all joints without discomfort. INTEGUMENTARY: No rash or other significant dermatologic conditions noted. HEMATOLOGIC: No ecchymosis or petechiae. PSYCHIATRIC: Positive affect. NEUROLOGIC: Cranial nerves II-XII grossly intact. No focal neurologic deficits noted. Course Patient history and physical exam were performed. Nurse's notes were reviewed. Vital signs were reviewed, showing an oral temperature of 37.9 C. BP is elevat ed at 150/87. Pulse rate was not measured in triage, but was 117 bpm on exam. Because of concern for possible sepsis and wound in the back, I did recommend extensive lab work-up. IV access was established, and labs were drawn, including blood cultures x2. Review of labs shows a normal white count with left shift and 4% bands. Sed rate is elevated at 67, and CRP is 16.2. Creatinine is 1.69, which is mostly baseline for the patient. Influenza screen was negative. [id number] lactate was also normal. A portable chest x-ray did not show any consolidations or other concerning findings. Noncontrast CT of the head was performed with complaint of worsening headache, and did not show any intracranial bleed, midline shift or mass-effect. CT of the lumbar spine shows stranding with ill-defined fluid collection about the deep subcutaneous tissues at the area of the patient's prior surgery, and extending a total length of 12 cm within this distribution. Seroma versus abscess was suggested. CT of the abdomen and pelvis does show some wall thickening of the colon, consistent with a mild colitis. No diverticulitis or appendicitis was noted. At this point, the case was further discussed with Dr. Green, ED attending physician, who recommended IV antibiotics and hospitalist consultation. The case was also discussed with our ED pharmacist with recommendation for administration of IV Zosyn and vancomycin. Consultation was placed with Dr. Willard, [facility] hospitalist. In the interim, MRI of the lumbar spine with IV contrast was performed, further characterizing the fluid collection. I also contacted and spoke with Dr. Mane, the patient spine surge on, and advised him of the patient's visit and MRI findings. He will be consulted as well for further management. Administered Medications Discontinued Medications Gadobutrol (Gadavist 30ml) 7.5 ml IV ONCE PRN PRN Reason: Interaction Checking Stop: 04/19/19 13:16 Last Admin: 04/15/19 13:18 Dose: 7.5 ml Documented by: [id number] Sodium Chloride (Nss 1000ml) 1,000 mls @ 999 mls/hr IV .Q1H1M ONE Stop: 04/15/19 09:45 Last Infusion: 04/15/19 10:35 Dose: 0 mls/hr Documented by: [id number] Admin: 04/15/19 09:32 Dose: 999 mls/hr Documented by: [id number] Sodium Chloride (Nss 1000ml) 500 mls @ 999 mls/hr IV .Q31M ONE Stop: 04/15/19 09:15 Last Infusion: 04/15/19 10:13 Dose: 0 mls/hr Documented by: [id number] Admin: 04/15/19 09:32 Dose: 999 mls/hr Documented by: [id number] Acetaminophen (Ofirmev) 1,000 mg in 100 mls @ 400 mls/hr IV NOW ONE Stop: 04/15/19 08:59 Last Infusion: 04/15/19 09:50 Dose: 0 mls/hr Documented by: [id number] Admin: 04/15/19 09:29 Dose: 400 mls/hr Documented by: [id number] Piperacillin Sod/Tazobactam Sod (Zosyn) 4.5 gm in 120 mls @ 240 mls/hr IV NOW ONE Stop: 04/15/19 11:42 Last Infusion: 04/15/19 12:09 Dose: 0 mls/hr Documented by: [id number] Admin: 04/15/19 11:37 Dose: 240 mls/hr Documented by: [id number] Vancomycin HCl 2,000 mg/ (Sodium Chloride) 540 mls @ 200 mls/hr IV NOW STA Stop: 04/15/19 13:54 Last Infusion: 04/15/19 16:16 Dose: 0 mls/hr Documented by: [id number] Admin: 04/15/19 12:36 Dose: 200 mls/hr Documented by: [id number] Medical Decision Making Medical Records Attestation: I reviewed the patient's medical records. Home Medications Current Medication List: was personally reviewed by me Laboratory Data Attestation: I reviewed the patient's lab results. Result diagrams: 04/15/19 08:54 04/15/19 09:24 Lab Results 04/15/19 04/15/19 04/15/19 Range/Units 08:50 08:54 09:23 WBC 8.41 (4.8-10.8) K/uL RBC 3.05 L (4.2-5.4) M/uL Hgb 9.5 L (12.0-16.0) g/dL Hct 29.3 L (37-47) % MCV 96.1 (80-100) fL MCH 31.1 (25-34) pg MCHC 32.4 (32-36) g/dL RDW Std Deviation 55.0 H (36.4-46.3) fL RDW Coeff of Sumaya 16.2 H (11.5-14.5) % Plt Count 295 (130-400) K/uL MPV 9.3 (7.4-10.4) fL Immature Gran % (Auto) 0.5 % Neut % (Auto) 87.3 % Lymph % (Auto) 7.7 % [place] % (Auto) 3.8 % Eos % (Auto) 0.5 % Baso % (Auto) 0.2 % Immature Gran # (Auto) 0.04 H (0.00-0.02) K/uL Neut # (Auto) 7.34 H (1.4-6.5) K/uL Lymph # (Auto) 0.65 L (1.2-3.4) K/uL [place] # (Auto) 0.32 (0.11-0.59) K/uL Eos # (Auto) 0.04 (0-0.5) K/uL Baso # (Auto) 0.02 (0-0.2) K/uL ESR 67 H (0-21) mm/hr Sodium (136-145) mmol/L Potassium (3.5-5.1) mmol/L Chloride (98-107) mmol/L Carbon Dioxide (21-32) mmol/L Anion Gap (3-11) BUN (7-18) mg/dl Creatinine (0.6-1.2) mg/dl Est Cr Clr Drug Dosing ml/min Est GFR ( Amer) Est GFR (Non-Af Amer) BUN/Creatinine Ratio (10-20) Glucose (70-99) mg/dl POC Lactic Acid Dung (0.90-1.70) mmol/L Calcium (8.5-10.1) mg/dl Total Bilirubin (0.2-1) mg/dl AST (15-37) U/L ALT (12-78) U/L Alkaline Phosphatase (45-117) U/L C-Reactive Protein (0-0.29) mg/dl Total Protein (6.4-8.2) gm/dl Albumin (3.4-5.0) gm/dl Globulin (2.5-4.0) gm/dl Albumin/Globulin Ratio (0.9-2) Procalcitonin (0-0.5) ng/ml Influenza Type A (PCR) Neg for Influ A (Neg) Influenza Type B (PCR) Neg for Influ B (Neg) 04/15/19 04/15/19 04/15/19 Range/Units 09:23 09:24 09:25 WBC (4.8-10.8) K/uL RBC (4.2-5.4) M/uL Hgb (12.0-16.0) g/dL Hct (37-47) % MCV (80-100) fL MCH (25-34) pg MCHC (32-36) g/dL RDW Std Deviation (36.4-46.3) fL RDW Coeff of Sumaya (11.5-14.5) % Plt Count (130-400) K/uL MPV (7.4-10.4) fL Immature Gran % (Auto) % Neut % (Auto) % Lymph % (Auto) % [place] % (Auto) % Eos % (Auto) % Baso % (Auto) % Immature Gran # (Auto) (0.00-0.02) K/uL Neut # (Auto) (1.4-6.5) K/uL Lymph # (Auto) (1.2-3.4) K/uL [place] # (Auto) (0.11-0.59) K/uL Eos # (Auto) (0-0.5) K/uL Baso # (Auto) (0-0.2) K/uL ESR (0-21) mm/hr Sodium 135 L (136-145) mmol/L Potassium 3.8 (3.5-5.1) mmol/L Chloride 104 (98-107) mmol/L Carbon Dioxide 24 (21-32) mmol/L Anion Gap 7.0 (3-11) BUN 20 H (7-18) mg/dl Creatinine 1.69 H (0.6-1.2) mg/dl Est Cr Clr Drug Dosing 36.1 ml/min Est GFR ( Amer) 36.6 Est GFR (Non-Af Amer) 31.5 BUN/Creatinine Ratio 11.7 (10-20) Glucose 112 H (70-99) mg/dl POC Lactic Acid Dung 1.14 (0.90-1.70) mmol/L Calcium 9.1 (8.5-10.1) mg/dl Total Bilirubin 0.5 (0.2-1) mg/dl AST 26 (15-37) U/L ALT 49 (12-78) U/L Alkaline Phosphatase 87 (45-117) U/L C-Reactive Protein 16.20 H (0-0.29) mg/dl Total Protein 7.3 (6.4-8.2) gm/dl Albumin 3.1 L (3.4-5.0) gm/dl Globulin 4.2 H (2.5-4.0) gm/dl Albumin/Globulin Ratio 0.7 L (0.9-2) Procalcitonin 0.43 (0-0.5) ng/ml Influenza Type A (PCR) (Neg) Influenza Type B (PCR) (Neg) Imaging Data Attestation: I personally reviewed and interpreted this imaging study as follows: My Impression: My interpretation of a portable chest x-ray does not show any consolidations, pneumothorax or obvious cardiac prominence. Noncontrast CT of the head did not show any acute intracranial bleed, midline shift or mass-effect. CT of the lumbar spine with IV contrast shows a fluid collection concerning for seroma versus abscess formation. CT of the abdomen and pelvis with IV contrast showed possible mild colitis without evidence for obstruction, diverticulitis, free air or appendicitis. MRI of the lumbar spine with IV contrast was also performed to further charac terize the fluid collection. Radiologist's Impression: HISTORY: 64 years-old Female Fever acute fever with headache COMPARISON: Chest radiograph 12/29/2018 TECHNIQUE: Portable AP view of the chest FINDINGS: Cardiomediastinal and hilar silhouettes are within normal limits. No pneumothorax, pleural effusion, focal airspace consolidation or overt pulmonary edema. Degenerative changes of the shoulders and spine. IMPRESSION: No acute process. === CT head/brain wo con CLINICAL HISTORY: 64 years-old Female with RAMÍREZ, fever. Acute headache with fever TECHNIQUE: Multiple axial CT images of the head were obtained without contrast. A dose lowering technique was utilized adhering to the principles of ALARA. CT DOSE: 537.48 mGy.cm COMPARISON: Head CT 07/16/2017. FINDINGS: No acute intracranial hemorrhage, midline shift, intracranial mass, hydro cephalus, territorial ischemia or abnormal extra-axial collection. Mild degree of patchy ill-defined white matter hypodensities suggest chronic microvascular ischemic disease. Senescent calcifications noted about the lentiform nuclei. Cerebral vascular calcifications noted. The calvarium is intact. Mucoperiosteal thickening of the right maxillary sinus redemonstrated. Mastoid air cells are clear. The soft tissues and orbits are unremarkable IMPRESSION: No acute intracranial abnormality. === ABDOMEN AND PELVIS CT WITHOUT CONTRAST HISTORY: Acute fever with nausea, vomiting and diarrhea. Recent spine surgery Fever, N/V/D TECHNIQUE: Multiaxial CT images of the abdomen and pelvis were performed without contrast. A dose lowering technique was utilized adhering to the principles of ALARA. COMPARISON STUDY: Lumbar spine CT of same day, CT abdomen and pelvis 07/20/2017. FINDINGS: Mild subsegmental dependent bibasilar atelectasis. No pneumatosis or pneumoperitoneum. Imaged inferior cardiac chambers are upper limits of normal in size. Hepatomegaly with hepatic steatosis. No evidence of cirrhosis or ascites. No focal hepatic mass lesion or biliary ductal dilation. Gallbladder, spleen, and adrenal glands are unremarkable. Moderate generalized parenchymal atrophy of the pancreas. Nonspecific bilateral perinephric stranding. No renal or ureteral calculi or obstructive uropathy identified. Ureters and urinary bladder are within normal limits. Prior hysterectomy. No adnexal mass lesions. Calcification of the aorta without aneurysm. No adenopathy. There is no bowel obstruction. Colonic diverticulosis without acute diverticulitis. Mild wall thickening about the ascending, transverse and descending colon with mild inflammation surrounding the splenic flexure and descending colon. Noninflamed appendix. Please refer to separately dictated CT lumbar spine for discussion of the associated bony and soft tissue findings within this distribution. IMPRESSION: 1. No bowel obstruction or pneumoperitoneum. 2. Wall thickening of the colon involving ascending, transverse and descending components is noted with areas of mild associated inflammatory stranding. Correlate clinically to exclude a mild nonspecific colitis. 3. Normal appendix. 4. Hepatomegaly with hepatic steatosis. 5. Colonic diverticulosis without acute diverticulitis. 6. Please see separately dictated CT lumbar spine study of same day for discussion of the associated bony and soft tissue findings. CT lumbar spine wo con HISTORY: 64 years-old Female Draining post-op wound x 4 mo, fever acute fever with draining wound of the lower back for approximately 4 months. Status post laminectomy and fusion 12/24/2018 COMPARISON: Fluoroscopic images of the lumbar spine 12/24/2018 TECHNIQUE: Multiple axial CT images of the lumbar spine were obtained without the use of IV contrast. A dose lowering technique was used consistent with the principals of ALARA. FINDINGS: Laminectomy with posterior interbody bianca and screw fusion at L2-L5. The hardware appears to be intact and alignment is satisfactory. Streak artifact from the hardware limits evaluation of the adjacent tissues. There is stranding with ill- defined fluid collection about the subcutaneous tissues at the incision site which measures up to approximately 2.2 x 3.0 cm in AP and transverse dimension at the level of L2 and extends inferiorly to the level of L5, decreasing in size as it progresses to the lower lumbar levels. Overall this measures up to appro ximately 12 cm in length. Adjacent deep tissue air noted superficial to the collection on image 134 series 302. Additionally, there are least 3 radiodensities noted measuring up to 5 mm within the distribution of the incision at L3-L4 and also at the L2 level. Healing subacute fracture about the L2 spinous process with mild displacement. No acute vertebral body fracture. Severe multilevel disc space narrowing with spondylitic spurring redemonstrated. Severe multilevel facet arthrosis. Mild levoscoliosis. Epidural tissues are difficult to evaluate on this exam secondary to the streak artifact and lack of IV contrast. IMPRESSION: 1. Postoperative changes from laminectomy with posterior interbody bianca and screw fusion at L3-L5. Alignment is satisfactory and the hardware appears intact. 2. Healing subacute mildly displaced fracture about the L2 spinous process. 3. Stranding with ill-defined fluid collection about the deep subcutaneous tissues at the area of prior incision measures up to approximately 2.2 x 3.0 cm in AP and transverse dimension at the level of L3 where there is adjacent wound tract and two subcentimeter radiodense foreign bodies. Overall, the fluid collection extends for a length of 12 cm within this distribution. These findings would suggest a seroma or abscess. Correlate clinically. MR lumbar spine wo/w con CLINICAL HISTORY: 64 years-old Female with Eval spinal abscess. Subacute low back pain with recent spinal surgery obtained 3 months prior. COMPARISON: CT lumbar spine of same day, MRI lumbar spine 10/23/2018 TECHNIQUE: Multiplanar, multi sequence MRI of the lumbar spine was performed both with and without the use of 7.5 mL Gadavist FINDINGS: The in classroom tutor localizer images demonstrate no gross abnormality of the abdomen or pelvis. Postoperative changes from laminectomy with posterior interbody bianca and screw fusion at L3-L5. Satisfactory alignment. There is moderate bone marrow edema along the anteroinferior endplate of L2 which is likely on a degenerative basis. No acute fracture, subluxation or additional bone marrow edema. No definite evidence of acute discitis/osteomyelitis. Conus medullaris terminates at the L1 level. Posterior annular disc bulge with spondylitic spurring, mild facet arthrosis mild disc space narrowing at T10-T11 causes moderate central canal stenosis seen only on the sagittal images. There are 2 fluid collections noted about the incision site, the first of which involves the subcutaneous tissues extending to level the spinous processes and also extends superficially to the skin surface measuring up to approximately 2.6 x 2.0 cm in AP and transverse dimension for a craniocaudal length of 12 cm. This appears prominently unilocular with adjacent micrometallic artifact and peripheral enhancement. The second larger collection also demonstrates peripheral metallic artifact and enhancement and is noted within the deep tissues at the surgical bed abutting the posterior epidural distribution measuring approximately 1.9 x 3.2 x 7.1 cm in AP, transverse and craniocaudal dimensions. This appears to cause mild central canal stenosis at L3-L4 and L4- L5. No collection noted about the anterior epidural tissues. No additional abnormal enhancement identified. There is diffuse increased enhancement of the paraspinal musculature at L5-S1. T12-L1: No central canal or neural foraminal stenosis. L1-L2: Mild disc space narrowing with mild spondylitic spurring, mild facet arthrosis and small posterior annular disc bulge. No central canal or foraminal narrowing. L2-L3: Moderate disc space narrowing with spondylitic spurring, circumferential annular disc bulge with large central disc protrusion, ligamentum flavum thickening with severe facet arthrosis. Findings cause mild to moderate central canal stenosis with mild to moderate right and mild left foraminal narrowing. L3-L4: Postoperative changes as above. Severe disc space narrowing with spondylitic spurring and posterior annular disc bulge. Mild central canal stenosis with moderate bilateral foraminal narrowing. L4-L5: Postoperative changes as above. Moderate disc space narrowing with spondylitic spurring, posterior annular disc bulge with left paracentral disc protrusion. Mild central canal stenosis with moderate right and severe left foraminal narrowing. L5-S1: 5 mm anterolisthesis. Moderate disc space narrowing with mild spondylitic spurring and small posterior annular disc bulge with moderate facet arthrosis. Central canal is patent. Mild to moderate right with mild left foraminal narrowing. IMPRESSION: 1. Postoperative changes from laminectomy with posterior interbody bianca and screw fusion at L3-L5. There are two fluid collections noted about the operative bed, the more superficial and smaller collection extends to the skin surface while the larger collection is noted within the deep tissues within the posterior epidural distribution as above. Both of these collections demonstrate peripheral enhancement. Seroma versus abscess are the primary differential considerations. 2. Enhancement of the paraspinal musculature at L5-S1 may reflect associated myositis. 3. Multilevel disc space narrowing with central canal and foraminal stenosis as above. Blood Pressure Blood Pressure Findings: Elevated blood pressure MDM Narrative Exact source of infection at this time is uncertain. Worse case scenario would be an abscess from the postoperative site. Clinical exam, however, is more consistent with a seroma versus abscess. The patient has also complained of nausea, vomiting and diarrhea which is more consistent with colitis. The patient has other significant comorbidities, including diabetes and stage IV chronic kidney disease, therefore I do feel that admission for further antibiotic treatment until blood cultures and wound cultures can be completed. Impression & Plan Post-operative wound abscess, Colitis, Chronic kidney disease, stage IV (severe), Rheumatoid arthritis, Diabetes mellitus type II, controlled Discharge Plan Visit Data *Final* Discharge Date/Time: 04/15/19 16:19 Chief Complaint: Fever Stated Complaint: FEVER,VOMITTING, ED Provider: Naresh Green ED Midlevel Provider: Gordo Streeter Discharge Problem: Post-operative wound abscess, Colitis, Chronic kidney disease, stage IV (severe), Rheumatoid arthritis, Diabetes mellitus type II, controlled Patient Disposition: Admitted As Inpatient Discharge Instructions Interventions: ED Discharge Assessment Last Done: 04/15/19 16:19
[2019-04-15 09:34] LABS: Basophils # (auto) 0.02 K/uL (0-0.2); Basophils % (auto) 0.2 %; Eosinophils # (auto) 0.04 K/uL (0-0.5); Eosinophils % (auto) 0.5 %; Hematocrit (blood only) 29.3 % (37-47); Hemoglobin 9.5 g/dL (12.0-16.0); Immature Granulocytes # (auto) 0.04 K/uL (0.00-0.02); Immature Granulocytes % (auto) 0.5 %; Lymphocytes # (auto) 0.65 K/uL (1.2-3.4); Lymphocytes % (auto) 7.7 %; Mean Corpuscular Hgb Conc 32.4 g/dL (32-36); Mean Corpuscular Volume 96.1 fL (80-100); Mean Platelet Volume 9.3 fL (7.4-10.4); Monocytes # (auto) 0.32 K/uL (0.11-0.59); Monocytes % (auto) 3.8 %; Neutrophils # (auto) 7.34 K/uL (1.4-6.5); Neutrophils % (auto) 87.3 %; Platelet Count 295 K/uL (130-400); RDW Coefficient of Variation 16.2 % (11.5-14.5); Red Blood Count 3.05 M/uL (4.2-5.4); White Blood Count 8.41 K/uL (4.8-10.8)
[2019-04-15 09:40] LABS: Influenza A virus by PCR Neg for Influ A (Neg); Influenza B virus by PCR Neg for Influ B (Neg)
[2019-04-15 09:50] LABS: Albumin Level 3.1 gm/dl (3.4-5.0); BUN Creatinine Ratio 11.7 (10-20); C Reactive Protein 16.2 mg/dl (0-0.29); Calcium 9.1 mg/dl (8.5-10.1); Creatinine Clr Calc Pharmacy 36.1 ml/min; Est GFR (African American) 36.6; Est GFR (Non-African American) 31.5; Potassium 3.8 mmol/L (3.5-5.1)
[2019-04-15 09:53] LABS: Albumin Globulin Ratio 0.7 (0.9-2); Bilirubin,Total 0.5 mg/dl (0.2-1); Globulin 4.2 gm/dl (2.5-4.0); Total Protein 7.3 gm/dl (6.4-8.2)
--- NOTE | 2019-04-15 10:47 | CT Scan Report ---
CT head/brain wo con CLINICAL HISTORY: 64 years-old Female with RAMÍREZ, fever. Acute headache with fever TECHNIQUE: Multiple axial CT images of the head were obtained without contrast. A dose lowering tech nique was utilized adhering to the principles of ALARA. CT DOSE: 537.48 mGy.cm COMPARISON: Head CT 07/16/2017. FINDINGS: No acute intracranial hemorrhage, midline shift, intracranial mass, hydrocephalus, territorial ischem ia or abnormal extra-axial collection. Mild degree of patchy ill-defined white matter hypodensities s uggest chronic microvascular ischemic disease. Senescent calcifications noted about the lentiform nuc lei. Cerebral vascular calcifications noted. The calvarium is intact. Mucoperiosteal thickening of the right maxillary sinus redemonstrated. Mast oid air cells are clear. The soft tissues and orbits are unremarkable IMPRESSION: No acute intracranial abnormality. The above report was generated using voice recognition software. It may contain grammatical, syntax o r spelling errors. Electronically signed by: Girish Cohen M.D. 04/15/2019 10:46 AM
--- NOTE | 2019-04-15 11:09 | CT Scan Report ---
CT lumbar spine wo con HISTORY: 64 years-old Female Draining post-op wound x 4 mo, fever acute fever with draining wound of the lower back for approximately 4 months. Status post laminectomy and fusion 12/24/2018 COMPARISON: Fluoroscopic images of the lumbar spine 12/24/2018 TECHNIQUE: Multiple axial CT images of the lumbar spine were obtained without the use of IV contrast. A dose lowering technique was used consistent with the principals of ALARA. FINDINGS: Laminectomy with posterior interbody bianca and screw fusion at L2-L5. The hardware appears to be intact and alignment is satisfactory. Streak artifact from the hardware limits evaluation of the adjacent t issues. There is stranding with ill-defined fluid collection about the subcutaneous tissues at the in cision site which measures up to approximately 2.2 x 3.0 cm in AP and transverse dimension at the lev el of L2 and extends inferiorly to the level of L5, decreasing in size as it progresses to the lower lumbar levels. Overall this measures up to approximately 12 cm in length. Adjacent deep tissue air no cornelius superficial to the collection on image 134 series 302. Additionally, there are least 3 radiodensi ties noted measuring up to 5 mm within the distribution of the incision at L3-L4 and also at the L2 l evel. Healing subacute fracture about the L2 spinous process with mild displacement. No acute vertebr al body fracture. Severe multilevel disc space narrowing with spondylitic spurring redemonstrated. Se jacoby multilevel facet arthrosis. Mild levoscoliosis. Epidural tissues are difficult to evaluate on th is exam secondary to the streak artifact and lack of IV contrast. IMPRESSION: 1. Postoperative changes from laminectomy with posterior interbody bianca and screw fusion at L3-L5. Ali gnment is satisfactory and the hardware appears intact. 2. Healing subacute mildly displaced fracture about the L2 spinous process. 3. Stranding with ill-defined fluid collection about the deep subcutaneous tissues at the area of grace or incision measures up to approximately 2.2 x 3.0 cm in AP and transverse dimension at the level of L3 where there is adjacent wound tract and two subcentimeter radiodense foreign bodies. Overall, the fluid collection extends for a length of 12 cm within this distribution. These findings would suggest a seroma or abscess. Correlate clinically. The above report was generated using voice recognition software. It may contain grammatical, syntax o r spelling errors. Electronically signed by: Girish Cohen M.D. 04/15/2019 11:08 AM
[2019-04-15] MEDS ORDERED: VANCOMYCIN HCL 2,000 MG in SODIUM CHLORIDE 0.9% 500 ML IV STA (11:13)
[2019-04-15] MEDS ORDERED: VANCOMYCIN CONSULT ACTIVE PRN ×2 (11:13→16:38)
[2019-04-15] MEDS ORDERED: PIPERACILL/TAZOBAC CONSULT ACTIVE PRN ×2 (11:13→16:38)
[2019-04-15] MEDS ORDERED: PIPERACILLIN/TAZOBACTAM 4.5 GM/120 ML BAG IV ONE (11:13)
--- NOTE | 2019-04-15 11:23 | CT Scan Report ---
ABDOMEN AND PELVIS CT WITHOUT CONTRAST HISTORY: Acute fever with nausea, vomiting and diarrhea. Recent spine surgery Fever, N/V/D TECHNIQUE: Multiaxial CT images of the abdomen and pelvis were performed without contrast. A dose lo wering technique was utilized adhering to the principles of ALARA. COMPARISON STUDY: Lumbar spine CT of same day, CT abdomen and pelvis 07/20/2017. FINDINGS: Mild subsegmental dependent bibasilar atelectasis. No pneumatosis or pneumoperitoneum. Imaged inferio r cardiac chambers are upper limits of normal in size. Hepatomegaly with hepatic steatosis. No eviden ce of cirrhosis or ascites. No focal hepatic mass lesion or biliary ductal dilation. Gallbladder, spl een, and adrenal glands are unremarkable. Moderate generalized parenchymal atrophy of the pancreas. N onspecific bilateral perinephric stranding. No renal or ureteral calculi or obstructive uropathy iden tified. Ureters and urinary bladder are within normal limits. Prior hysterectomy. No adnexal mass les ions. Calcification of the aorta without aneurysm. No adenopathy. There is no bowel obstruction. Colonic diverticulosis without acute diverticulitis. Mild wall thicken ing about the ascending, transverse and descending colon with mild inflammation surrounding the splen ic flexure and descending colon. Noninflamed appendix. Please refer to separately dictated CT lumbar spine for discussion of the associated bony and soft tissue findings within this distribution. IMPRESSION: 1. No bowel obstruction or pneumoperitoneum. 2. Wall thickening of the colon involving ascending, transverse and descending components is noted wi th areas of mild associated inflammatory stranding. Correlate clinically to exclude a mild nonspecifi c colitis. 3. Normal appendix. 4. Hepatomegaly with hepatic steatosis. 5. Colonic diverticulosis without acute diverticulitis. 6. Please see separately dictated CT lumbar spine study of same day for discussion of the associated bony and soft tissue findings. Electronically signed by: Girish Cohen M.D. 04/15/2019 11:22 AM
[2019-04-15] MEDS ORDERED: GADOBUTROL 30ML VIAL IV PRN (13:17)
--- NOTE | 2019-04-15 14:14 | Magnetic Resonance Report ---
MR lumbar spine wo/w con CLINICAL HISTORY: 64 years-old Female with Eval spinal abscess. Subacute low back pain with recent s art surgery obtained 3 months prior. COMPARISON: CT lumbar spine of same day, MRI lumbar spine 10/23/2018 TECHNIQUE: Multiplanar, multi sequence MRI of the lumbar spine was performed both with and without th e use of 7.5 mL Gadavist FINDINGS: The ecological economist localizer images demonstrate no gross abnormality of the abdomen or pelvis. Postoperative c hanges from laminectomy with posterior interbody bianca and screw fusion at L3-L5. Satisfactory alignmen t. There is moderate bone marrow edema along the anteroinferior endplate of L2 which is likely on a d egenerative basis. No acute fracture, subluxation or additional bone marrow edema. No definite eviden ce of acute discitis/osteomyelitis. Conus medullaris terminates at the L1 level. Posterior annular di sc bulge with spondylitic spurring, mild facet arthrosis mild disc space narrowing at T10-T11 causes moderate central canal stenosis seen only on the sagittal images. There are 2 fluid collections noted about the incision site, the first of which involves the subcutan eous tissues extending to level the spinous processes and also extends superficially to the skin surf anna marie measuring up to approximately 2.6 x 2.0 cm in AP and transverse dimension for a craniocaudal shamar th of 12 cm. This appears prominently unilocular with adjacent micrometallic artifact and peripheral enhancement. The second larger collection also demonstrates peripheral metallic artifact and enhancem ent and is noted within the deep tissues at the surgical bed abutting the posterior epidural distribu tion measuring approximately 1.9 x 3.2 x 7.1 cm in AP, transverse and craniocaudal dimensions. This a ppears to cause mild central canal stenosis at L3-L4 and L4-L5. No collection noted about the anterio r epidural tissues. No additional abnormal enhancement identified. There is diffuse increased enhance ment of the paraspinal musculature at L5-S1. T12-L1: No central canal or neural foraminal stenosis. L1-L2: Mild disc space narrowing with mild spondylitic spurring, mild facet arthrosis and small post erior annular disc bulge. No central canal or foraminal narrowing. L2-L3: Moderate disc space narrowing with spondylitic spurring, circumferential annular disc bulge w ith large central disc protrusion, ligamentum flavum thickening with severe facet arthrosis. Findings cause mild to moderate central canal stenosis with mild to moderate right and mild left foraminal na rrowing. L3-L4: Postoperative changes as above. Severe disc space narrowing with spondylitic spurring and pos terior annular disc bulge. Mild central canal stenosis with moderate bilateral foraminal narrowing. L4-L5: Postoperative changes as above. Moderate disc space narrowing with spondylitic spurring, post erior annular disc bulge with left paracentral disc protrusion. Mild central canal stenosis with mode rate right and severe left foraminal narrowing. L5-S1: 5 mm anterolisthesis. Moderate disc space narrowing with mild spondylitic spurring and small posterior annular disc bulge with moderate facet arthrosis. Central canal is patent. Mild to moderate right with mild left foraminal narrowing. IMPRESSION: 1. Postoperative changes from laminectomy with posterior interbody bianca and screw fusion at L3-L5. The re are two fluid collections noted about the operative bed, the more superficial and smaller collecti on extends to the skin surface while the larger collection is noted within the deep tissues within th e posterior epidural distribution as above. Both of these collections demonstrate peripheral enhancem ent. Seroma versus abscess are the primary differential considerations. 2. Enhancement of the paraspinal musculature at L5-S1 may reflect associated myositis. 3. Multilevel disc space narrowing with central canal and foraminal stenosis as above. The above report was generated using voice recognition software. It may contain grammatical, syntax o r spelling errors. Electronically signed by: Girish Cohen M.D. 04/15/2019 2:12 PM
--- NOTE | 2019-04-15 15:17 | History & Physical Report ---
Date of Service April 15, 2019 Assessment & Plan (1) Post-operative wound abscess: 63 y/o F with Hx HTN, HLD, DM II, chronic anemia, hypothyroid, CKD IV, RA treated with Mtx and Humira, lumbar stenosis - had L2 - L5 laminectomy and fusion 12/24/18. She has a surgical wound in the area which has not fully healed and reports increasing drainage recently, although she denies any pain. Over the past two days, she has developed a headache, weakness, am episode of diarrhea and a fever of over 102. She thought this might be a viral illness and presented to the hospital when her fever persisted over the course of the last 2 days. An MRI of the lumbar spine was obtained and demonstrated two enhancing fluid collections representing either seromas or abscesses. Clinically, however, there is no pain to palpation of the wound area. 1) Persistent fever with headache, weakness. This may be viral and entirely unrelated to her lumbar wound. Considering the MRI result and her immunocompromised status, we will start her on Vanc/Cefepime pending culture results and an ortho eval. Fluid from the wound was cultured. 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 She has a surgical wound in the area which has not fully healed and reports increasing drainage recently, although she denies any pain. Over the past two days, she has developed a headache, weakness, am episode of diarrhea and a fever of over 102. She thought this might be a viral illness and presented to the hospital when her fever persisted over the course of the last 2 days. An MRI of the lumbar spine was obtained and demonstrated two enhancing fluid collections representing either seromas or abscesses. Clinically, however, there is no pain to palpation of the wound area. PMH: 1) RA - the pt is immunocompromised owing to treatment with Humira and Mtx 2) Lumbar stenosis 3) CKD III 4) Anemia of chronic disease 5) DM II 6) HTN 7) HLD 8) Hypothyroidism Surgical: 1) Lumbar fusion - 12/2018 2) TKA 3) C sxn 4) Hysterectomy Social: Does not drink or smoke Family: Both parents owing to brain cancer Allergies Allergy/AdvReac Type Severity Reaction Status Date / Time nitrofurantoin Allergy Severe HEADACHE Verified 04/15/19 10:26 tetracycline Allergy Severe RASH ON Verified 04/15/19 10:26 FACE Fzwufbo-Xwl-Xpi Reductase AdvReac Intermediate LE edema Verified 04/15/19 10:26 Inhibitor oxycodone AdvReac Drowsy Verified 04/15/19 10:26 Home Medications Home Medications Medication Instructions Recorded Confirmed Type cholecalciferol (vitamin D3) 1,000 unit PO QAM 10/26/18 04/15/19 History [Vitamin D3] cyclobenzaprine 10 mg PO DAILY PRN 10/26/18 04/15/19 History ferrous sulfate [Feosol] 325 mg PO QAM 10/26/18 04/15/19 History folic acid 1 mg PO QAM 10/26/18 04/15/19 History gabapentin 600 mg PO HS 10/26/18 04/15/19 History insulin glargine 16 unit SUBCUT QPM 10/26/18 04/15/19 History levothyroxine 100 mcg PO QAM 10/26/18 04/15/19 History lisinopril 40 mg PO QAM 10/26/18 04/15/19 History magnesium 250 mg PO QAM 10/26/18 04/15/19 History metformin 500 mg PO BID 10/26/18 04/15/19 History metoprolol succinate 100 mg PO QAM 10/26/18 04/15/19 History omeprazole 20 mg PO QAM 10/26/18 04/15/19 History rosuvastatin 40 mg PO HS 10/26/18 04/15/19 History trimethoprim 100 mg PO HS #1 tab 10/30/18 04/15/19 Rx Humira 40 units SUBCUT DIRECTED 12/24/18 04/15/19 History acetaminophen [Tylenol Extra 1,000 mg PO Q6H PRN 12/24/18 04/15/19 History Strength] methotrexate sodium 20 mg PO WK 12/24/18 04/15/19 History Past Med/Surg History Medical History Rheumatoid arthritis Lumbar radiculopathy, acute (Acute) Chronic kidney disease, stage IV (severe) Diabetes mellitus History of pneumonia recent hospitalization october 2018 [facility] Hyperlipidemia Hypertension Hypothyroidism On prednisone therapy Surgical History Hx of tonsillectomy (Acute) History of x2 History of hysterectomy total History of total left knee replacement Family History Father Diabetes Lung cancer Mother Diabetes Brain tumor Social History Preferred Language: Greenlandic Communication Ability: Effective Visual Impairment: No Limitations Hearing Ability: Normal Beliefs That Will Affect Care: None marital status: Current Living Situation: Spouse 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 Feels Safe at Home: Yes Smoking Status: Never smoker Second Hand Exposure: No Hx Alcohol Use: Yes Alcohol type: beer and wine Hx Substance Use: No Review of Systems Review of Systems: Gen: Denies fevers, night sweats, rigors, fatigue, malaise, weight loss/gain ENT: Denies congestion, throat pain, hearing loss Eyes: Denies acute visual changes CV: Denies CP, palpitations Pulmonary: Denies SOB, cough, wheezing GI: Denies N/V, diarrhea, constipation Neuro: Denies acute or unilateral weakness, acute gait impairment, headache or acute visual changes Musculoskeletal: Lower back pain Endocrine: Denies polydipsia, polyuria Skin: Denies acute rashes - wound on lumbar area which is not fully healed Physical Exam Physical Exam: General: Pleasant, middle-aged F, AAO x 3, no distress ENT: No erythema or exudates, no thrush Eyes: CECILIA, EOMI Head and neck: Normocephalic, atraumatic, No JVD, neck is supple. Chest/heart: Nontender, S1,2, RRR, no murmurs, no gallops Lungs: CTAB, no wheezing or crackles Abdomen: Nontender, nondistended, BS+ Neuro: AAO x 3, speech is clear, no unilateral weakness or loss of sensation, coordination intact Musculoskeletal: There is a small scabbed area over the lumbar sline with minimal erythema and no tenderness to firm palpation Extremities: No clubbing, cyanosis, edema Results & Data Vital Signs (Past 12 Hours) Vital Signs Temp Pulse Pulse Resp BP BP Pulse Ox 04/15/19 14:30 107 H 18 117/65 95 04/15/19 14:00 104 H 20 125/71 95 04/15/19 13:40 98.8 F 04/15/19 13:39 114 H 20 132/80 94 04/15/19 12:44 107 H 18 120/76 96 04/15/19 11:37 110 H 18 129/77 93 04/15/19 10:34 100.8 F H 111 H 18 128/79 94 04/15/19 09:33 118 H 20 141/99 H 95 04/15/19 09:19 117 H 20 157/94 H 93 04/15/19 08:26 94 04/15/19 08:09 100.2 F H 20 150/87 H 98 Diagnostic Findings MRI lumbar: 1. Postoperative changes from laminectomy with posterior interbody bianca and screw fusion at L3-L5. There are two fluid collections noted about the operative bed, the more superficial and smaller collection extends to the skin surface while the larger collection is noted within the deep tissues within the posterior epidural distribution as above. Both of these collections demonstrate peripheral enhancement. Seroma versus abscess are the primary differential considerations. 2. Enhancement of the paraspinal musculature at L5-S1 may reflect associated myositis. 3. Multilevel disc space narrowing with central canal and foraminal stenosis as above. PG Care Time/CCT Total # of Minutes Spent Total Time Spent with Patient: Total time spent is greater than 50% in coordination of care (as documented) at patient's floor/unit and/or counseling patient:
[2019-04-15] MEDS ORDERED: ALUMINUM/MAGNESIUM SUSP 30 ML UDC PO PRN (16:38)
[2019-04-15] MEDS ORDERED: CYCLOBENZAPRINE HCL 10 MG TAB PO PRN (16:38)
[2019-04-15] MEDS ORDERED: ACETAMINOPHEN 500 MG TAB PO PRN (16:38)
[2019-04-15] MEDS ORDERED: HYDROmorphone INJ 0.5 MG/0.5 ML SYR IV PRN (16:38)
[2019-04-15] MEDS ORDERED: POLYETHYLENE (MIRALAX) 17 GM PACK PO PRN (16:38)
[2019-04-15] MEDS ORDERED: ONDANSETRON INJ 2 MG/ML 2 ML VIAL IV PRN (16:38)
[2019-04-15] MEDS ORDERED: MAGNESIUM HYDROXIDE SUSP 30 ML UDC PO PRN (16:38)
[2019-04-15] MEDS ORDERED: DEXTROSE 50% 50 ML SYRINGE IV PRN (17:45)
[2019-04-15] MEDS ORDERED: GLUCAGON FOR INJ 1 MG VIAL IM PRN (17:45)
[2019-04-15] MEDS ORDERED: GLUCOSE 40% GEL 15 GM TUBE PO PRN (17:45)
[2019-04-15] MEDS ORDERED: GLUCOSE 10 TABS/TUBE PO PRN (17:45)
[2019-04-15] MEDS ORDERED: CARBOHYDRATES FOR HYPOGLYCEMIA PO PRN (17:45)
[2019-04-15] MEDS: LACTATED RINGER'S 1,000 ML IV SCH (18:37)
[2019-04-15] MEDS: PIPERACILLIN/TAZOBACTAM 3.375 GM in DEXTROSE 5% 100 ML IV SCH (18:37)
[2019-04-15] MEDS: INSULIN ASPART 100 UNITS/ML 3 ML PEN SC SCH (20:40)
[2019-04-15] MEDS ORDERED: INSULIN GLARGINE SOLOSTAR 100 UNITS/ML 3 ML PEN SQ SCH (21:00)
[2019-04-15] MEDS ORDERED: ROSUVASTATIN CALCIUM 20 MG TAB PO SCH (21:00)
[2019-04-15] MEDS ORDERED: GABAPENTIN 600 MG TAB PO SCH (21:00)
[2019-04-16] MEDS: PIPERACILLIN/TAZOBACTAM 3.375 GM in DEXTROSE 5% 100 ML IV SCH ×2 (00:21→09:38)
[2019-04-16 05:41] LABS: Basophils # (auto) 0.02 K/uL (0-0.2); Basophils % (auto) 0.4 %; Eosinophils # (auto) 0.17 K/uL (0-0.5); Eosinophils % (auto) 3.1 %; Hemoglobin 8.8 g/dL (12.0-16.0); Immature Granulocytes # (auto) 0.04 K/uL (0.00-0.02); Immature Granulocytes % (auto) 0.7 %; Lymphocytes # (auto) 1.16 K/uL (1.2-3.4); Lymphocytes % (auto) 20.9 %; Mean Corpuscular Hgb Conc 31.4 g/dL (32-36); Mean Corpuscular Volume 97.6 fL (80-100); Monocytes # (auto) 0.36 K/uL (0.11-0.59); Monocytes % (auto) 6.5 %; Neutrophils # (auto) 3.81 K/uL (1.4-6.5); Neutrophils % (auto) 68.4 %; Platelet Count 259 K/uL (130-400); RDW Coefficient of Variation 16.2 % (11.5-14.5); RDW Standard Deviation 56.2 fL (36.4-46.3); Red Blood Count 2.87 M/uL (4.2-5.4); White Blood Count 5.56 K/uL (4.8-10.8)
[2019-04-16 06:11] LABS: BUN Creatinine Ratio 9.8 (10-20); Calcium 8.6 mg/dl (8.5-10.1); Creatinine Clr Calc Pharmacy 42.1 ml/min; Magnesium 2.2 mg/dl (1.8-2.4); Potassium 3.3 mmol/L (3.5-5.1)
[2019-04-16] MEDS: LACTATED RINGER'S 1,000 ML IV SCH (06:23)
[2019-04-16] MEDS ORDERED: LEVOTHYROXINE SODIUM 100 MCG TABLET PO SCH (06:30)
[2019-04-16] MEDS: INSULIN ASPART 100 UNITS/ML 3 ML PEN SC SCH (08:25)
--- NOTE | 2019-04-16 08:35 | Pharmacy Report ---
Pharmacy Abx Initial Consult - Date of Service April 16, 2019 - Pharmacy Dosing Scope Date of Consult: [] Consultation requested by: [] Pharmacy is consulted to initiate [] IV/PO dosing therapy, order appropriate labs and adjust drug dose/frequency. - Subjective The patient is a 64 year old F admitted on 04/15/19 15:43. - Objective Height: 5 ft 7 in Weight: 77.7 kg Vital Signs (Past 12hrs): Vital Signs Temp Pulse Resp BP Pulse Ox 04/16/19 07:27 36.9 C 102 H 18 137/89 93 04/15/19 23:35 36.9 C 102 H 14 137/79 95 Lab Results (24hrs): Laboratory Tests (24 Hours) 04/16/19 04/16/19 04/15/19 05:08 05:08 09:24 WBC 5.56 Neut # (Auto) 3.81 ESR Creatinine 1.45 H 1.69 H Est Cr Clr Drug Dosing 42.1 36.1 C-Reactive Protein 16.20 H Procalcitonin 04/15/19 04/15/19 04/15/19 09:23 09:23 08:54 WBC 8.41 Neut # (Auto) 7.34 H ESR 67 H Creatinine Est Cr Clr Drug Dosing C-Reactive Protein Procalcitonin 0.43 Micro Results: 04/15/19 09:05 Gram Stain - Final Back 04/15/19 22:17 WBC Smear - Final Stool Shiga Toxin Test - Pending Stool Culture - Pending 04/15/19 09:26 Aerobic Blood Culture - Pending Blood Anaerobic Blood Culture - Pending - Risk Factors for Resistance * Immunocompromised (on methotrexate and Humira) - Assessment & Plan Assessment 64 year old F admitted for headache, fever and drainage from lumbar wound. Patient is s/p lumbar surgery in December 2018. Vancomycin and Zosyn were initiated yesterday for postop lumbar abscess. Back wound culture just resulted as S. aureus this AM - will await sensitivities to determine if antibiotics can be de-escalated SCr has improved, which warrants an adjustment to vancomycin dose. I do not anticipate much further improvement in SCr as this appears to be close to her baseline. Plan Vancomycin and Zosyn for treatment of lumbar abscess Vancomycin IV * Estimated PK Parameters: Vd 0.7 L/kg, Neal 0.039 hr-1, t1/2 17.7 hr * Change maintenance dose to 1250 mg IV (16 mg/kg) every 22 hours * Goal trough level : 15 to 20 mcg/mL * Trough level ordered for 04/18/19 prior to the 4th dose Piperacillin/tazobactam * Continue 3.375 g IV extended infusion every 8 hours for CrCl greater than 20 mL/min Await S. aureus sensitivities to determine if vancomycin is still warranted Pharmacy will continue to follow and will adjust dose/frequency as necessary. Thank you.
[2019-04-16] MEDS ORDERED: LISINOPRIL 40 MG TAB PO SCH (09:00)
[2019-04-16] MEDS ORDERED: FERROUS SULFATE 325 MG TAB PO SCH (09:00)
[2019-04-16] MEDS ORDERED: FOLIC ACID 1 MG TAB PO SCH (09:00)
[2019-04-16] MEDS ORDERED: MAGNESIUM OXIDE 400 MG TAB PO SCH (09:00)
[2019-04-16] MEDS ORDERED: PANTOprazole 40 MG TAB PO SCH (09:00)
[2019-04-16] MEDS ORDERED: METOPROLOL SUCC 50MG EXT REL TAB PO SCH (09:00)
--- NOTE | 2019-04-16 09:54 | Consultation Report ---
DATE OF CONSULTATION: 04/16/2019 HISTORY OF PRESENT ILLNESS: Daniela is delightful, I have known her for years, operated on lumbar spine December of this year. She has a nice recovery. She had one area of the superior aspect of her wound, it looked like either a stitch irritation, but did not quite heal and this area was truly 4 mm in length. Today, she looks fine. Minimal complaints of pain. I do not really think she has a surgical epidural abscess at all even that was reported, questionable on the MRI scan. I think the vancomycin antibiotics were appropriate pathway. PAST MEDICAL HISTORY: Significant for diabetes mellitus, severe anemia, hypertension, hypothyroid and I believe she has fairly significant kidney disease. PAST SURGICAL HISTORY: Listed. SOCIAL HISTORY: Nonsmoker, nonalcohol user. PHYSICAL EXAMINATION: GENERAL: She is alert, oriented, pleasant as she always is. Afebrile. MUSCULOSKELETAL: Her wound looks clean to me, it is dry. There is no warmth, erythema. No fullness, no pain with pressure. No evidence clinically of an epidural abscess or myositis or spinal infection. IMPRESSION: Actually, think possibly that the reason for her trip to the Emergency Room was other, maybe some GI distress, maybe some pulmonary issues. I do not think, it is from the spine. PLAN: I would discharge her home today, which is the 16 of April. I want to place her on some outpatient antibiotics for 7 days. She has an appointment to see me back in about 2 weeks and is to call if any problems.
[2019-04-16] MEDS ORDERED: VANCOMYCIN HCL 1,250 MG in SODIUM CHLORIDE 0.9% 250 ML IV SCH (10:00)
[2019-04-16] MEDS ORDERED: VANCOMYCIN HCL 1,000 MG in SODIUM CHLORIDE 0.9% 250 ML IV SCH (13:00)
--- NOTE | 2019-04-16 16:30 | Discharge Summary ---
Date of Service April 16, 2019 Admission HPI Per Admitting Provider 63 y/o F with Hx HTN, HLD, DM II, chronic anemia, hypothyroid, CKD IV, RA treated with Mtx and Humira, lumbar stenosis - had L2 - L5 laminectomy and fusion 12/24/18. She has a surgical wound in the area which has not fully healed and reports increasing drainage recently, although she denies any pain. Over the past two days, she has developed a headache, weakness, am episode of diarrhea and a fever of over 102. She thought this might be a viral illness and presented to the hospital when her fever persisted over the course of the last 2 days. An MRI of the lumbar spine was obtained and demonstrated two enhancing fluid collections representing either seromas or abscesses. Clinically, however, there is no pain to palpation of the wound area. PMH: 1) RA - the pt is immunocompromised owing to treatment with Humira and Mtx 2) Lumbar stenosis 3) CKD III 4) Anemia of chronic disease 5) DM II 6) HTN 7) HLD 8) Hypothyroidism Surgical: 1) Lumbar fusion - 12/2018 2) TKA 3) C sxn 4) Hysterectomy Social: Does not drink or smoke Family: Both parents owing to brain cancer Admission Exam Per Admitting Provider General: Pleasant, middle-aged F, AAO x 3, no distress ENT: No erythema or exudates, no thrush Eyes: CECILIA, EOMI Head and neck: Normocephalic, atraumatic, No JVD, neck is supple. Chest/heart: Nontender, S1,2, RRR, no murmurs, no gallops Lungs: CTAB, no wheezing or crackles Abdomen: Nontender, nondistended, BS+ Neuro: AAO x 3, speech is clear, no unilateral weakness or loss of sensation, coordination intact Musculoskeletal: There is a small scabbed area over the lumbar sline with minimal erythema and no tenderness to firm palpation Extremities: No clubbing, cyanosis, edema Principal Diagnosis Seroma, draining Discharge Exam Constitutional well developed, well nourished, cooperative and comfortable; no acute distress Respiratory normal respiratory effort, lungs clear to auscultation Cardiovascular RRR, no murmur, no edema Gastrointestinal (Abdomen) normal bowel sounds, soft, nontender, no hepatosplenomegaly Skin Small weaping wound on back, no tenderness over broader area to firm palpation Discharge Data Allergies Allergy/AdvReac Type Severity Reaction Status Date / Time nitrofurantoin Allergy Severe HEADACHE Verified 04/15/19 10:26 tetracycline Allergy Severe RASH ON Verified 04/15/19 10:26 FACE [id number]-Whp Reductase AdvReac Intermediate LE edema Verified 04/15/19 10:26 Inhibitor oxycodone AdvReac Drowsy Verified 04/15/19 10:26 Consultations 04/15/19 11:26 ED Decision to Admit Stat 04/15/19 19:00 Consult Orthopedic Surgery Routine Ordered Studies 04/15/19 08:45 CT head/brain wo con Stat 04/15/19 09:56 CT abd pelvis wo con Stat CT lumbar spine wo con Stat 04/15/19 11:13 MR lumbar spine wo/w con Stat Hospital Course (1) Post-operative wound abscess: Patient admitted due to concern for wound abscess due to fever and fluid collections visualized on CT scan. MRI confirmed two fluid collections likely seromas or abscesses. Patient admitted and started on vanc and cefepime on examination today patient did have a small non healing wound on her back but no evidence of abscess and patient no longer having fever or GI symptoms. Seen by Dr. Mane her surgeon who felt she could safely be followed up as an outpatient on the regularly scheduled appointment on the 04 of May. Antibiotics discontinued and patient discharged to home with self care. Total Time Total Time Spent Total Time Spent (In Minutes): 40 Discharge Plan Discharge Items Patient Disposition: Home - Self-Care Reason For Visit: NOHEALING LUMBAR WOUND Discharge Diagnosis: No abscess, draining seromas Condition: Good Discharge Goals: Specific goals Activity: Resume your previous activity Non-emergency contact: Primary Care Provider and Surgeon Call non-emergency contact if: you have any medication questions, your pain is concerning for you and your temperature is above 100.5 Follow-up/Referrals: Corby Arzola MD [Primary Care Provider] - Diet: Carb Consistent or DM2 Addtl Provider Instructions: It was a pleasure to evaluate you here at [facility] for your fever and fluid collection on your spine. After imaging, physical exam and monitoring it appears that you do not have any evidence of an abscess at this time. You most likely caught a viral illness which caused your fever and GI symptoms which have now passed. You can return to your normal activity and home medications on discharge. Prescriptions: Continued cyclobenzaprine 10 mg tablet 10 mg PO DAILY PRN (Reason: Muscle Spasm) RF: 0 metformin 500 mg Tablet 500 mg PO BID RF: 0 gabapentin 600 mg tablet 600 mg PO HS RF: 0 metoprolol succinate 50 mg Tablet Extended Release 24 Hr 100 mg PO QAM RF: 0 lisinopril 20 mg tablet 40 mg PO QAM RF: 0 levothyroxine 100 mcg Tablet 100 mcg PO QAM RF: 0 ferrous sulfate [Feosol] 325 mg (65 mg iron) Tablet 325 mg PO QAM RF: 0 omeprazole 20 mg Capsule,Delayed Release(Dr/Ec) 20 mg PO QAM RF: 0 folic acid 1 mg tablet 1 mg PO QAM RF: 0 magnesium 250 mg Tablet 250 mg PO QAM RF: 0 cholecalciferol (vitamin D3) [Vitamin D3] 1,000 unit Capsule 1,000 unit PO QAM RF: 0 rosuvastatin 40 mg tablet 40 mg PO HS RF: 0 insulin glargine 100 unit/mL (3 mL) insulin pen 16 unit subcut QPM RF: 0 trimethoprim 100 mg tablet 100 mg PO HS Qty: 1 RF: 0 acetaminophen [Tylenol Extra Strength] 500 mg Tablet 1,000 mg PO Q6H PRN (Reason: Pain) RF: 0 methotrexate sodium 2.5 mg Tablet 20 mg PO WK RF: 0 Humira 40 mg/0.8 mL Syringe Kit 40 units SUBCUT DIRECTED RF: 0 Stand-Alone Forms: [facility]/Other Patient Handouts: Infec MRSA Discharge Orders: Discharge Order (Routine); Ordered 04/16/19 Ordered By: Louis Cruz Admission Data Admit Date/Time: 04/15/19 15:43 Attending Provider: Yohana Garcia Admit Provider: Corky Willard Primary Care Provider: Corby Arzola Other Providers: Corky Willard ; Darrel Mane Service: Medical Other Interventions: Discharge Summary Assessment (RN) Last Done: 04/16/19 10:23 DC Date/Time DO NOT enter until pt leaves facility: 04/16/19 11:26 Supervising Physician Co-Signing Physician Notes Resident Physician Supervision Note: I independently interviewed and examined the patient and verified the geronimo history and physical, reviewed labs and image studies, discussed the case with the resident Dr. Cruz and agree with the findings and care plan. I was called the day after discharge with report of his wound culture growing MRSA and stool growing campylobacter. Stool tested for diarrhea. Called bactrim and cipro rx to pharmacy and patient notified. Advised to hold methotrexate while on antibiotics. Resident Activity Tracking Resident Involvement: Resident Care Provided Care Provided: Adult Hospital Medicine
[2019-04-17] MEDS ORDERED: METFORMIN HCL 500 MG TAB PO SCH (09:00)
--- NOTE | 2019-04-17 09:28 | Family Medicine Progress Note ---
Date of Service April 17, 2019 Subjective Got called from ER for wound culture results growing MRSA. Spoke to Dr. Mane - agrees with 10 days of Bactrim DS. Spoke to Daniela about treating with bactrim. Advised to hold trimethoprim she takes for UTI prevention while on bactrim. Called prescription to the [facility] [place] pharmacy.
[2019-04-18] MEDS ORDERED: VANCOMYCIN TROUGH ONE (05:30)
== END 2019-04-16 11:26 | disposition home or self-care (01) | DRG 863 ==
LOC: ED 08:01 → SUATTDRO 15:43 → 3E 15:43

== ENCOUNTER 2019-04-26 11:35 | Inpatient (IN) ==
[2019-04-26] MEDS ORDERED: SODIUM CHLORIDE 0.9% 1000ML 1,000 ML IV ONE ×2 (11:56→13:39)
--- NOTE | 2019-04-26 12:10 | XRay Report ---
XR chest 1V portable CLINICAL HISTORY: Sepsis COMPARISON STUDY: 04/15/2019 FINDINGS: The cardiac and mediastinal contours are normal. There is no evidence of focal pulmonary co nsolidation. There is no evidence of failure. No pleural effusions are visualized.[There is a stable linear band of subsegmental atelectasis/scarring at the left lung base. IMPRESSION: No active disease in the chest. Electronically signed by: Jose Miguel Kulkarni M.D. 04/26/2019 12:09 PM
--- NOTE | 2019-04-26 12:18 | XRay Report ---
XR KUB/Abdomen 1 view CLINICAL HISTORY: diarrhea bowel change COMPARISON STUDY: No previous studies for comparison. FINDINGS: The soft tissues, psoas shadows, renal outlines and intestinal gas pattern appear normal. T here is no evidence for bowel obstruction. No abnormal abdominal calcifications are seen. Unremarkabl e postoperative changes consistent with laminectomy and fusion of the low lumbar spine. IMPRESSION:: Normal study. The above report was generated using voice recognition software. It may contain grammatical, syntax or spelling errors. Electronically signed by: Cortez Rebolledo M.D. 04/26/2019 12:17 PM
[2019-04-26 12:38] LABS: Partial Thromboplastin Ratio 1.2; Partial Thromboplastin Time 31.3 Seconds (21.0-31.0); Prothrombin Time 10.3 Seconds (9.0-12.0)
[2019-04-26 12:40] LABS: Basophils # (auto) 0.04 K/uL (0-0.2); Basophils % (auto) 0.3 %; Eosinophils # (auto) 0.09 K/uL (0-0.5); Eosinophils % (auto) 0.7 %; Hematocrit (blood only) 29.9 % (37-47); Hemoglobin 9.5 g/dL (12.0-16.0); Immature Granulocytes # (auto) 0.03 K/uL (0.00-0.02); Immature Granulocytes % (auto) 0.2 %; Lymphocytes # (auto) 2.21 K/uL (1.2-3.4); Lymphocytes % (auto) 17.9 %; Mean Corpuscular Hgb Conc 31.8 g/dL (32-36); Mean Corpuscular Volume 95.8 fL (80-100); Mean Platelet Volume 9.6 fL (7.4-10.4); Monocytes # (auto) 0.19 K/uL (0.11-0.59); Monocytes % (auto) 1.5 %; Neutrophils # (auto) 9.81 K/uL (1.4-6.5); Neutrophils % (auto) 79.4 %; Platelet Count 480 K/uL (130-400); RDW Coefficient of Variation 16.4 % (11.5-14.5); RDW Standard Deviation 55.9 fL (36.4-46.3); Red Blood Count 3.12 M/uL (4.2-5.4); White Blood Count 12.37 K/uL (4.8-10.8)
[2019-04-26 12:49] LABS: iSTAT Creatinine 2.9 mg/dl (0.6-1.3); iSTAT Hemoglobin 9.9 g/dl (12.0-16.0); iSTAT Ionized Calcium 1.24 mmol/l (1.12-1.32); iSTAT Potassium 3.5 mEq/L (3.3-5.0)
[2019-04-26 12:58] LABS: Alanine Aminotransferase 24 U/L (12-78); Albumin Level 3.2 gm/dl (3.4-5.0); Aspartate Aminotransferase 20 U/L (15-37); BUN Creatinine Ratio 15.6 (10-20); Blood Urea Nitrogen 43 mg/dl (7-18); Carbon Dioxide 21 mmol/L (21-32); Chloride 102 mmol/L (98-107); Creatinine Clr Calc Pharmacy 20.1 ml/min; Est GFR (African American) 20.3; Est GFR (Non-African American) 17.5; Glucose 157 mg/dl (70-99); Potassium 3.5 mmol/L (3.5-5.1); Sodium 135 mmol/L (136-145)
[2019-04-26 13:02] LABS: Albumin Globulin Ratio 0.7 (0.9-2); Alkaline Phosphatase 78 U/L (45-117); Bilirubin,Total 0.4 mg/dl (0.2-1); Globulin 4.4 gm/dl (2.5-4.0); Total Protein 7.6 gm/dl (6.4-8.2); Troponin I < 0.015 ng/ml (0-0.045)
[2019-04-26] MEDS ORDERED: CIPROFLOXACIN 400 MG/200 ML BAG IV STA (13:39)
[2019-04-26 15:28] LABS: Appearance Urine Clear (Clear); Bilirubin Urine Negative (Negative); Blood Urine Negative (Negative); Color Urine Yellow; Glucose Urine UA Negative (Negative); Ketones Urine Negative (Negative); Leukocyte Esterase Urine Negative (Negative); Nitrite Urine Negative (Negative); Protein Urine Negative (Negative); Specific Gravity Urine 1.013 (1.000-1.030); Urobilinogen Urine Negative (Negative)
--- NOTE | 2019-04-26 16:54 | History & Physical Report ---
Date of Service April 26, 2019 Assessment & Plan (1) Lower GI bleed: Patient with acute onset of mucoid, bloody diarrhea. Most likely secondary to colitis, infection/inflammation. Recently diagnosed with Campylobacter jejuni which was treated with Cipro x 3 days. Patient reports resolution of symptoms after treatment. Uncertain if this represents recurrence of C. jejuni and treatment failure or a new infectious process, concern for c. diff given patient's immunocompromised status, recent hospital stay and exposure to multiple antibiotics -Admit to medical floor -Check stool cultures, giardia (patient states she was initially treated for this), stool FOBT and WBC -Check C. diff -Check CT abdomen with PO contrast -Consider GI consult Present on Admission?: Yes (2) Diabetes mellitus type II, controlled: Blood sugar presently 157 -Continue Lantus 16u qPM -ISS -CC diet as tolerated -Continue gabapentin qHS for neuropathy Present on Admission?: Yes (3) Fever: Patient with report of fever at home. Afebrile at present. Hemodynamically stable. CXR with NAD. UA with no infection. Most likely secondary to GI source, ?colitis -Follow culture results -Follow c. diff results -Will hold off on empiric antibiotics at this time (4) Hypothyroidism: Chronic/ TSH=2.06 in October -Continue Synthroid Present on Admission?: Yes (5) Hypertension: Blood pressure was low on arrival, presently 133/73 -Hold home antihypertensives, Metoprolol and Lisinopril in setting of AISHWARYA and borderline low BP -Continue to monitor Present on Admission?: Yes (6) Acute kidney injury: BUN=43, Cr=2.75 which is increased from prior 1.45. Most likely secondary to acute volume loss in setting of diarrhea -IVF as above -Monitor BUN,Cr, electrolytes and UOP daily (7) Rheumatoid arthritis: Hold MTX and Humira for now in setting of possible infection. Hold prophylactic Bactrim for now. F/E/N - NSS at 125mLhr 2 liters, monitor electrolytes and replete as needed, CC/AHA diet as tolerated Ppx - SCDs, continue home Protonix Code -Full Dispo - Med/Tele History of Present Illness Chief Complaint: bloody diarrhea Primary Care Provider: Corby Arzola MD Daniela Champagne is a 64yo C female with history of RA on Humira and MTX presenting with bloody diarrhea. Patient was first seen with this complaint on 04/15/19 - at that time she was complaining of multiple episodes of diarrhea as well as nausea and vomiting. She had a workup performed which came back positive for Campylobacter. Patient was prescribed Cipro 750mg po daily x 3 days She was advised to hold her MTX x 10 days while on antibiotics. No definitive source of the Campylobacter was identified. Patient has been in contact with the Dept of Health re: source of infection. Additionally patient with recent lumbar surgery and had an unhealed portion of her surgical incision with some drainage which cultured positive for MRSA. She was initially treated with Vancomycin and Ceftriaxone and was prescribed Bactrim DS x 10 days on discharge per Dr. Mane. She is to be reevaluated for possible surgical washout at the end of this month. She reports that her symptoms initially improved, however presents today with recurrence of diarrhea. Last evening she had 10 episodes of diarrhea - small volume, mucoid with dark red blood. She also had severe abdominal cramping which was relieved with BM. She has had poor appetite and decreased oral intake. Also with fever of 102.7 this AM and chills. Also had a brief episode of confusion yesterday. Last BM was this AM around 06:00. ER Course: Cipro, NSS Allergies Allergy/AdvReac Type Severity Reaction Status Date / Time nitrofurantoin Allergy Severe HEADACHE Verified 04/26/19 12:48 tetracycline Allergy Severe RASH ON Verified 04/26/19 12:48 FACE sulfamethoxazole Allergy Swelling Unverified 04/26/19 12:48 [From Bactrim] of Lip/Tongue/Throat trimethoprim [From Bactrim] Allergy Swelling Unverified 04/26/19 12:48 of Lip/Tongue/Throat Uujgfxg-Vry-Wle Reductase AdvReac Intermediate LE edema Verified 04/26/19 12:48 Inhibitor oxycodone AdvReac Drowsy Verified 04/26/19 12:48 Home Medications Home Medications Medication Instructions Recorded Confirmed Type cholecalciferol (vitamin D3) 1,000 unit PO QAM 10/26/18 04/26/19 History [Vitamin D3] cyclobenzaprine 10 mg PO DAILY PRN 10/26/18 04/26/19 History ferrous sulfate [Feosol] 325 mg PO QAM 10/26/18 04/26/19 History folic acid 1 mg PO QAM 10/26/18 04/26/19 History gabapentin 600 mg PO HS 10/26/18 04/26/19 History insulin glargine 16 unit SUBCUT QPM 10/26/18 04/26/19 History levothyroxine 100 mcg PO QAM 10/26/18 04/26/19 History lisinopril 40 mg PO QAM 10/26/18 04/26/19 History magnesium 250 mg PO QAM 10/26/18 04/26/19 History metformin 500 mg PO BID 10/26/18 04/26/19 History metoprolol succinate 100 mg PO QAM 10/26/18 04/26/19 History omeprazole 20 mg PO QAM 10/26/18 04/26/19 History rosuvastatin 40 mg PO HS 10/26/18 04/26/19 History trimethoprim 100 mg PO HS #1 tab 10/30/18 04/26/19 Rx Humira 40 units SUBCUT DIRECTED 12/24/18 04/26/19 History acetaminophen [Tylenol Extra 1,000 mg PO Q6H PRN 12/24/18 04/26/19 History Strength] methotrexate sodium 20 mg PO WK 12/24/18 04/26/19 History Past Med/Surg History Medical History Rheumatoid arthritis (Acute) Lumbar radiculopathy, acute (Acute) Chronic kidney disease, stage IV (severe) Diabetes mellitus History of pneumonia recent hospitalization october 2018 [facility] Hyperlipidemia Hypertension Hypothyroidism On prednisone therapy Surgical History Hx of tonsillectomy (Acute) History of x2 History of back surgery History of hysterectomy total History of total left knee replacement Family History Father Diabetes Lung cancer Cancer Hypertension Mother Diabetes Brain tumor Cancer Hypertension Malignant neoplasm of brain Aunt Breast cancer Social History Preferred Language: Azerbaijani Communication Ability: Effective Visual Impairment: No Limitations Hearing Ability: Normal 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 Feels Safe at Home: Yes Safety Concerns: Feels Safe At This Time Smoking Status: Never smoker Do You Dip or Chew Tobacco: No Second Hand Exposure: No Hx Alcohol Use: No Hx Substance Use: No Review of Systems Review of Systems: All systems reviewed & are unremarkable except as noted in HPI & below Physical Exam Physical Exam: General: patient resting comfortably, NAD, non-toxic in appearance, AA&O x 4 Skin: warm, dry, intact, no rashes or lesions HEENT: NC/AT, PERRL, EOMI, anicteric sclera, conjunctiva without injection, external ear normal to inspection and nontender, nares patent, moist mucus membranes, dentition intact, no oropharyngeal lesions, neck supple, trachea midline, no LAD, no thyromegaly, no JVD Heart: +S1/S2, regular, no m/r/g Lungs: equal air entry bilaterally, no rales/rhonchi/wheezes Abd: +BS, soft, NT/ND, no masses/organomegaly/ascites Ext: warm, 2+ pulses in UE/LE bilaterally, no clubbing/cyanosis or edema Neuro: nonfocal, patient AA&O x 4, speech intact, no facial droop, moving all extremities on command with equal strength 5/5 Results & Data Vital Signs (Past 12 Hours) Vital Signs Temp Pulse Pulse Resp BP BP Pulse Ox 04/26/19 16:01 92 H 15 93 04/26/19 16:00 95 H 14 105/65 94 04/26/19 15:50 94 H 14 94 04/26/19 15:45 93 H 16 118/70 93 04/26/19 15:40 92 H 16 94 04/26/19 15:31 92 H 19 04/26/19 15:30 93 H 15 125/77 04/26/19 15:20 104 H 17 04/26/19 15:15 94 H 19 103/74 04/26/19 15:10 93 H 15 04/26/19 15:01 93 H 20 98 04/26/19 15:00 93 H 19 133/73 98 04/26/19 14:50 94 H 16 04/26/19 14:45 91 H 18 110/76 04/26/19 14:40 90 17 04/26/19 14:31 92 H 18 04/26/19 14:30 92 H 17 102/74 04/26/19 14:20 92 H 18 04/26/19 14:15 92 H 16 95/69 L 04/26/19 14:10 92 H 19 04/26/19 14:01 91 H 16 04/26/19 14:00 92 H 18 103/65 04/26/19 13:50 93 H 17 99 04/26/19 13:48 92 H 19 113/62 97 04/26/19 13:47 92 H 19 113/62 93 04/26/19 13:40 94 H 19 04/26/19 13:30 94 H 16 04/26/19 13:20 93 H 16 04/26/19 13:10 94 H 15 04/26/19 13:03 93 H 21 109/60 97 04/26/19 13:01 93 H 13 04/26/19 13:00 92 H 14 109/60 04/26/19 12:50 94 H 17 04/26/19 12:45 94 H 16 110/59 L 04/26/19 12:40 95 H 14 04/26/19 12:31 94 H 21 04/26/19 12:30 95 H 17 95/58 L 04/26/19 12:20 97 H 16 04/26/19 12:15 99 H 15 101/65 04/26/19 12:12 98 H 16 04/26/19 12:00 103 H 19 109/64 04/26/19 11:43 36.9 C 108 H 20 76/47 L 95 Laboratory Results Lab Results 04/26/19 04/26/19 04/26/19 Range/Units 12:03 12:23 12:23 WBC (4.8-10.8) K/uL RBC (4.2-5.4) M/uL Hgb (12.0-16.0) g/dL POC Hgb (12.0-16.0) g/dl Hct (37-47) % POC Hct (37-47) % MCV (80-100) fL MCH (25-34) pg MCHC (32-36) g/dL RDW Std Deviation (36.4-46.3) fL RDW Coeff of Sumaya (11.5-14.5) % Plt Count (130-400) K/uL MPV (7.4-10.4) fL Immature Gran % (Auto) % Neut % (Auto) % Lymph % (Auto) % Donley % (Auto) % Eos % (Auto) % Baso % (Auto) % Immature Gran # (Auto) (0.00-0.02) K/uL Neut # (Auto) (1.4-6.5) K/uL Lymph # (Auto) (1.2-3.4) K/uL Donley # (Auto) (0.11-0.59) K/uL Eos # (Auto) (0-0.5) K/uL Baso # (Auto) (0-0.2) K/uL ESR (0-21) mm/hr PT 10.3 (9.0-12.0) Seconds INR 1.0 (0.9-1.1) APTT 31.3 H (21.0-31.0) Seconds PTT Ratio 1.2 POC Sodium (135-144) mEq/L Sodium (136-145) mmol/L POC Potassium (3.3-5.0) mEq/L Potassium (3.5-5.1) mmol/L POC Chloride (101-112) mEq/L Chloride (98-107) mmol/L Carbon Dioxide (21-32) mmol/L POC Total CO2 (24-31) mEq/l Anion Gap (3-11) POC Anion Gap (16-25) mmol/L POC BUN (7-18) mg/dl BUN (7-18) mg/dl Creatinine (0.6-1.2) mg/dl POC Creatinine (0.6-1.3) mg/dl Est Cr Clr Drug Dosing ml/min Est GFR ( Amer) Est GFR (Non-Af Amer) BUN/Creatinine Ratio (10-20) Glucose (70-99) mg/dl POC Glucose (70-99) POC Glucose (other) (70-99) mg/dl Lactate (0.4-2.0) mmol/L Calcium (8.5-10.1) mg/dl POC Ioniz Calcium Mor (1.12-1.32) mmol/l Total Bilirubin (0.2-1) mg/dl AST (15-37) U/L ALT (12-78) U/L Alkaline Phosphatase (45-117) U/L Total Creatine Kinase (26-192) U/L Troponin I (0-0.045) ng/ml C-Reactive Protein (0-0.29) mg/dl Total Protein (6.4-8.2) gm/dl Albumin (3.4-5.0) gm/dl Globulin (2.5-4.0) gm/dl Albumin/Globulin Ratio (0.9-2) Procalcitonin 0.49 (0-0.5) ng/ml Urine Color Urine Appearance (Clear) Urine pH (4.5-7.5) Ur Specific Crook (1.000-1.030) Urine Protein (Negative) Urine Glucose (UA) (Negative) Urine Ketones (Negative) Urine Blood (Negative) Urine Nitrite (Negative) Urine Bilirubin (Negative) Urine Urobilinogen (Negative) Ur Leukocyte Esterase (Negative) Ur Random Creatinine mg/dl Ur Random Sodium mmol/L Stool Occult Bld Scrn (Negative) Blood Type A Positive Antibody Screen NEGATIVE 04/26/19 04/26/19 04/26/19 Range/Units 12:23 12:23 12:23 WBC 12.37 H (4.8-10.8) K/uL RBC 3.12 L (4.2-5.4) M/uL Hgb 9.5 L (12.0-16.0) g/dL POC Hgb (12.0-16.0) g/dl Hct 29.9 L (37-47) % POC Hct (37-47) % MCV 95.8 (80-100) fL MCH 30.4 (25-34) pg MCHC 31.8 L (32-36) g/dL RDW Std Deviation 55.9 H (36.4-46.3) fL RDW Coeff of Sumaya 16.4 H (11.5-14.5) % Plt Count 480 H (130-400) K/uL MPV 9.6 (7.4-10.4) fL Immature Gran % (Auto) 0.2 % Neut % (Auto) 79.4 % Lymph % (Auto) 17.9 % Donley % (Auto) 1.5 % Eos % (Auto) 0.7 % Baso % (Auto) 0.3 % Immature Gran # (Auto) 0.03 H (0.00-0.02) K/uL Neut # (Auto) 9.81 H (1.4-6.5) K/uL Lymph # (Auto) 2.21 (1.2-3.4) K/uL Donley # (Auto) 0.19 (0.11-0.59) K/uL Eos # (Auto) 0.09 (0-0.5) K/uL Baso # (Auto) 0.04 (0-0.2) K/uL ESR 51 H (0-21) mm/hr PT (9.0-12.0) Seconds INR (0.9-1.1) APTT (21.0-31.0) Seconds PTT Ratio POC Sodium (135-144) mEq/L Sodium 135 L (136-145) mmol/L POC Potassium (3.3-5.0) mEq/L Potassium 3.5 (3.5-5.1) mmol/L POC Chloride (101-112) mEq/L Chloride 102 (98-107) mmol/L Carbon Dioxide 21 (21-32) mmol/L POC Total CO2 (24-31) mEq/l Anion Gap 12.0 H (3-11) POC Anion Gap (16-25) mmol/L POC BUN (7-18) mg/dl BUN 43 H (7-18) mg/dl Creatinine 2.75 H (0.6-1.2) mg/dl POC Creatinine (0.6-1.3) mg/dl Est Cr Clr Drug Dosing 20.1 ml/min Est GFR ( Amer) 20.3 Est GFR (Non-Af Amer) 17.5 BUN/Creatinine Ratio 15.6 (10-20) Glucose 157 H (70-99) mg/dl POC Glucose (70-99) POC Glucose (other) (70-99) mg/dl Lactate (0.4-2.0) mmol/L Calcium 9.0 (8.5-10.1) mg/dl POC Ioniz Calcium Mor (1.12-1.32) mmol/l Total Bilirubin 0.4 (0.2-1) mg/dl AST 20 (15-37) U/L ALT 24 (12-78) U/L Alkaline Phosphatase 78 (45-117) U/L Total Creatine Kinase (26-192) U/L Troponin I < 0.015 (0-0.045) ng/ml C-Reactive Protein 15.90 H (0-0.29) mg/dl Total Protein 7.6 (6.4-8.2) gm/dl Albumin 3.2 L (3.4-5.0) gm/dl Globulin 4.4 H (2.5-4.0) gm/dl Albumin/Globulin Ratio 0.7 L (0.9-2) Procalcitonin (0-0.5) ng/ml Urine Color Urine Appearance (Clear) Urine pH (4.5-7.5) Ur Specific Crook (1.000-1.030) Urine Protein (Negative) Urine Glucose (UA) (Negative) Urine Ketones (Negative) Urine Blood (Negative) Urine Nitrite (Negative) Urine Bilirubin (Negative) Urine Urobilinogen (Negative) Ur Leukocyte Esterase (Negative) Ur Random Creatinine mg/dl Ur Random Sodium mmol/L Stool Occult Bld Scrn (Negative) Blood Type Antibody Screen 04/26/19 04/26/19 04/26/19 Range/Units 12:23 12:23 12:36 WBC (4.8-10.8) K/uL RBC (4.2-5.4) M/uL Hgb (12.0-16.0) g/dL POC Hgb 9.9 L (12.0-16.0) g/dl Hct (37-47) % POC Hct 29 L (37-47) % MCV (80-100) fL MCH (25-34) pg MCHC (32-36) g/dL RDW Std Deviation (36.4-46.3) fL RDW Coeff of Sumaya (11.5-14.5) % Plt Count (130-400) K/uL MPV (7.4-10.4) fL Immature Gran % (Auto) % Neut % (Auto) % Lymph % (Auto) % Donley % (Auto) % Eos % (Auto) % Baso % (Auto) % Immature Gran # (Auto) (0.00-0.02) K/uL Neut # (Auto) (1.4-6.5) K/uL Lymph # (Auto) (1.2-3.4) K/uL Donley # (Auto) (0.11-0.59) K/uL Eos # (Auto) (0-0.5) K/uL Baso # (Auto) (0-0.2) K/uL ESR (0-21) mm/hr PT (9.0-12.0) Seconds INR (0.9-1.1) APTT (21.0-31.0) Seconds PTT Ratio POC Sodium 135 (135-144) mEq/L Sodium (136-145) mmol/L POC Potassium 3.5 (3.3-5.0) mEq/L Potassium (3.5-5.1) mmol/L POC Chloride 103 (101-112) mEq/L Chloride (98-107) mmol/L Carbon Dioxide (21-32) mmol/L POC Total CO2 21 L (24-31) mEq/l Anion Gap (3-11) POC Anion Gap 17.0 (16-25) mmol/L POC BUN 42 H (7-18) mg/dl BUN (7-18) mg/dl Creatinine (0.6-1.2) mg/dl POC Creatinine 2.9 H (0.6-1.3) mg/dl Est Cr Clr Drug Dosing ml/min Est GFR ( Amer) Est GFR (Non-Af Amer) BUN/Creatinine Ratio (10-20) Glucose (70-99) mg/dl POC Glucose (70-99) POC Glucose (other) 161 H (70-99) mg/dl Lactate 1.3 (0.4-2.0) mmol/L Calcium (8.5-10.1) mg/dl POC Ioniz Calcium Mor 1.24 (1.12-1.32) mmol/l Total Bilirubin (0.2-1) mg/dl AST (15-37) U/L ALT (12-78) U/L Alkaline Phosphatase (45-117) U/L Total Creatine Kinase 66 (26-192) U/L Troponin I (0-0.045) ng/ml C-Reactive Protein (0-0.29) mg/dl Total Protein (6.4-8.2) gm/dl Albumin (3.4-5.0) gm/dl Globulin (2.5-4.0) gm/dl Albumin/Globulin Ratio (0.9-2) Procalcitonin (0-0.5) ng/ml Urine Color Urine Appearance (Clear) Urine pH (4.5-7.5) Ur Specific Crook (1.000-1.030) Urine Protein (Negative) Urine Glucose (UA) (Negative) Urine Ketones (Negative) Urine Blood (Negative) Urine Nitrite (Negative) Urine Bilirubin (Negative) Urine Urobilinogen (Negative) Ur Leukocyte Esterase (Negative) Ur Random Creatinine mg/dl Ur Random Sodium mmol/L Stool Occult Bld Scrn (Negative) Blood Type Antibody Screen 04/26/19 04/26/19 04/26/19 Range/Units 15:00 18:00 18:44 WBC (4.8-10.8) K/uL RBC (4.2-5.4) M/uL Hgb (12.0-16.0) g/dL POC Hgb (12.0-16.0) g/dl Hct (37-47) % POC Hct (37-47) % MCV (80-100) fL MCH (25-34) pg MCHC (32-36) g/dL RDW Std Deviation (36.4-46.3) fL RDW Coeff of Sumaya (11.5-14.5) % Plt Count (130-400) K/uL MPV (7.4-10.4) fL Immature Gran % (Auto) % Neut % (Auto) % Lymph % (Auto) % Donley % (Auto) % Eos % (Auto) % Baso % (Auto) % Immature Gran # (Auto) (0.00-0.02) K/uL Neut # (Auto) (1.4-6.5) K/uL Lymph # (Auto) (1.2-3.4) K/uL Donley # (Auto) (0.11-0.59) K/uL Eos # (Auto) (0-0.5) K/uL Baso # (Auto) (0-0.2) K/uL ESR (0-21) mm/hr PT (9.0-12.0) Seconds INR (0.9-1.1) APTT (21.0-31.0) Seconds PTT Ratio POC Sodium (135-144) mEq/L Sodium (136-145) mmol/L POC Potassium (3.3-5.0) mEq/L Potassium (3.5-5.1) mmol/L POC Chloride (101-112) mEq/L Chloride (98-107) mmol/L Carbon Dioxide (21-32) mmol/L POC Total CO2 (24-31) mEq/l Anion Gap (3-11) POC Anion Gap (16-25) mmol/L POC BUN (7-18) mg/dl BUN (7-18) mg/dl Creatinine (0.6-1.2) mg/dl POC Creatinine (0.6-1.3) mg/dl Est Cr Clr Drug Dosing ml/min Est GFR ( Amer) Est GFR (Non-Af Amer) BUN/Creatinine Ratio (10-20) Glucose (70-99) mg/dl POC Glucose 103 H (70-99) POC Glucose (other) (70-99) mg/dl Lactate (0.4-2.0) mmol/L Calcium (8.5-10.1) mg/dl POC Ioniz Calcium Mor (1.12-1.32) mmol/l Total Bilirubin (0.2-1) mg/dl AST (15-37) U/L ALT (12-78) U/L Alkaline Phosphatase (45-117) U/L Total Creatine Kinase (26-192) U/L Troponin I (0-0.045) ng/ml C-Reactive Protein (0-0.29) mg/dl Total Protein (6.4-8.2) gm/dl Albumin (3.4-5.0) gm/dl Globulin (2.5-4.0) gm/dl Albumin/Globulin Ratio (0.9-2) Procalcitonin (0-0.5) ng/ml Urine Color Yellow Urine Appearance Clear (Clear) Urine pH 5.0 (4.5-7.5) Ur Specific Crook 1.013 (1.000-1.030) Urine Protein Negative (Negative) Urine Glucose (UA) Negative (Negative) Urine Ketones Negative (Negative) Urine Blood Negative (Negative) Urine Nitrite Negative (Negative) Urine Bilirubin Negative (Negative) Urine Urobilinogen Negative (Negative) Ur Leukocyte Esterase Negative (Negative) Ur Random Creatinine 22.3 mg/dl Ur Random Sodium mmol/L Stool Occult Bld Scrn (Negative) Blood Type Antibody Screen 04/26/19 04/26/19 Range/Units 21:00 21:00 WBC (4.8-10.8) K/uL RBC (4.2-5.4) M/uL Hgb (12.0-16.0) g/dL POC Hgb (12.0-16.0) g/dl Hct (37-47) % POC Hct (37-47) % MCV (80-100) fL MCH (25-34) pg MCHC (32-36) g/dL RDW Std Deviation (36.4-46.3) fL RDW Coeff of Sumaya (11.5-14.5) % Plt Count (130-400) K/uL MPV (7.4-10.4) fL Immature Gran % (Auto) % Neut % (Auto) % Lymph % (Auto) % Donley % (Auto) % Eos % (Auto) % Baso % (Auto) % Immature Gran # (Auto) (0.00-0.02) K/uL Neut # (Auto) (1.4-6.5) K/uL Lymph # (Auto) (1.2-3.4) K/uL Donley # (Auto) (0.11-0.59) K/uL Eos # (Auto) (0-0.5) K/uL Baso # (Auto) (0-0.2) K/uL ESR (0-21) mm/hr PT (9.0-12.0) Seconds INR (0.9-1.1) APTT (21.0-31.0) Seconds PTT Ratio POC Sodium (135-144) mEq/L Sodium (136-145) mmol/L POC Potassium (3.3-5.0) mEq/L Potassium (3.5-5.1) mmol/L POC Chloride (101-112) mEq/L Chloride (98-107) mmol/L Carbon Dioxide (21-32) mmol/L POC Total CO2 (24-31) mEq/l Anion Gap (3-11) POC Anion Gap (16-25) mmol/L POC BUN (7-18) mg/dl BUN (7-18) mg/dl Creatinine (0.6-1.2) mg/dl POC Creatinine (0.6-1.3) mg/dl Est Cr Clr Drug Dosing ml/min Est GFR ( Amer) Est GFR (Non-Af Amer) BUN/Creatinine Ratio (10-20) Glucose (70-99) mg/dl POC Glucose (70-99) POC Glucose (other) (70-99) mg/dl Lactate (0.4-2.0) mmol/L Calcium (8.5-10.1) mg/dl POC Ioniz Calcium Mor (1.12-1.32) mmol/l Total Bilirubin (0.2-1) mg/dl AST (15-37) U/L ALT (12-78) U/L Alkaline Phosphatase (45-117) U/L Total Creatine Kinase (26-192) U/L Troponin I (0-0.045) ng/ml C-Reactive Protein (0-0.29) mg/dl Total Protein (6.4-8.2) gm/dl Albumin (3.4-5.0) gm/dl Globulin (2.5-4.0) gm/dl Albumin/Globulin Ratio (0.9-2) Procalcitonin (0-0.5) ng/ml Urine Color Urine Appearance (Clear) Urine pH (4.5-7.5) Ur Specific Crook (1.000-1.030) Urine Protein (Negative) Urine Glucose (UA) (Negative) Urine Ketones (Negative) Urine Blood (Negative) Urine Nitrite (Negative) Urine Bilirubin (Negative) Urine Urobilinogen (Negative) Ur Leukocyte Esterase (Negative) Ur Random Creatinine mg/dl Ur Random Sodium 66 mmol/L Stool Occult Bld Scrn Positive A (Negative) Blood Type Antibody Screen Diagnostic Findings XR KUB/Abdomen 1 view CLINICAL HISTORY: diarrhea bowel change COMPARISON STUDY: No previous studies for comparison. FINDINGS: The soft tissues, psoas shadows, renal outlines and intestinal gas pattern appear normal. There is no evidence for bowel obstruction. No abnormal abdominal calcifications are seen. Unremarkable postoperative changes consistent with laminectomy and fusion of the low lumbar spine. IMPRESSION:: Normal study. The above report was generated using voice recognition software. It may contain grammatical, syntax or spelling errors. Electronically signed by: Cortez Rebolledo M.D. 04/26/2019 12:17 PM Dictated: 04/26/19 1216 Transcribed: 04/26/19 1216 XR chest 1V portable CLINICAL HISTORY: Sepsis COMPARISON STUDY: 04/15/2019 FINDINGS: The cardiac and mediastinal contours are normal. There is no evidence of focal pulmonary consolidation. There is no evidence of failure. No pleural effusions are visualized.[There is a stable linear band of subsegmental atelectasis/scarring at the left lung base. IMPRESSION: No active disease in the chest. Electronically signed by: Jose Miguel Kulkarni M.D. 04/26/2019 12:09 PM Dictated: 04/26/19 1209 Transcribed: 04/26/19 1209 ECG Additional Comments: ST at 107, normal axis, OQ=187, QRS=72, OLi=336, no acute ischemic changes present Code Status & VTE Plan Code Status full VTE Prophylaxis Plan VTE Prophylaxis will be ordered: Yes PG Care Time/CCT Total # of Minutes Spent Total Time Spent with Patient: Total time spent is greater than 50% in coordination of care (as documented) at patient's floor/unit and/or counseling patient: (1) Diabetes mellitus type II, controlled Diabetes mellitus intermediate insulin use: with intermediate use Diabetes mellitus complication status: without complication Qualified Code(s): E11.9 - Type 2 diabetes mellitus without complications; Z79.4 - roasterman (current) use of insulin (2) Hypothyroidism Hypothyroidism type: unspecified Qualified Code(s): E03.9 - Hypothyroidism, unspecified (3) Hypertension Hypertension type: essential hypertension Qualified Code(s): I10 - Essential (primary) hypertension (4) Rheumatoid arthritis Rheumatoid arthritis location: unspecified site Rheumatoid factor presence: unspecified presence Qualified Code(s): M06.9 - Rheumatoid arthritis, unspecified
--- NOTE | 2019-04-26 17:59 | Emergency Department Note ---
Entered by Jocelynn Burnett acting as a scribe for History of Present Illness General Chief complaint: Hypotension Stated complaint: BLOOD IN STOOL Source: patient History of Present Illness Provider complaint: blood in stool Onset (ago): day(s) 2 Location: buttocks Maximum Pain Intensity: 8 Quality: + other (blood in stool) Associated symptoms: + denies other symptoms (back pain), + fever/chills (febrile at 100.7) and + other (dizzy); no chest pain and no nausea/vomiting The patient is a 64 year old female who presents to the Emergency Department with complaints of bloody stools over the last 2 days. She also reports having severe abdominal cramps since last night. She denies having nausea, vomiting, chest pain, back pain, and shortness of breath. She states that she was febrile at 100.7 last night and also reports that she has been dizzy. The patient states that she was seen in the ED on April 15 for vomiting and was admitted and was told she had Campylobacter. She states that she went out to eat 3 days ago and was feeling fine. She denies alcohol and tobacco use and states that she is not on any blood thinners. The patient states that she has a history of a blood transfusion in December when she had her back surgery. Home Medications Home Medications Medication Instructions Recorded Confirmed Type cholecalciferol (vitamin D3) 1,000 unit PO QAM 10/26/18 04/26/19 History [Vitamin D3] cyclobenzaprine 10 mg PO DAILY PRN 10/26/18 04/26/19 History ferrous sulfate [Feosol] 325 mg PO QAM 10/26/18 04/26/19 History folic acid 1 mg PO QAM 10/26/18 04/26/19 History gabapentin 600 mg PO HS 10/26/18 04/26/19 History insulin glargine 16 unit SUBCUT QPM 10/26/18 04/26/19 History levothyroxine 100 mcg PO QAM 10/26/18 04/26/19 History lisinopril 40 mg PO QAM 10/26/18 04/26/19 History magnesium 250 mg PO QAM 10/26/18 04/26/19 History metformin 500 mg PO BID 10/26/18 04/26/19 History metoprolol succinate 100 mg PO QAM 10/26/18 04/26/19 History omeprazole 20 mg PO QAM 10/26/18 04/26/19 History rosuvastatin 40 mg PO HS 10/26/18 04/26/19 History trimethoprim 100 mg PO HS #1 tab 10/30/18 04/26/19 Rx Humira 40 units SUBCUT DIRECTED 12/24/18 04/26/19 History acetaminophen [Tylenol Extra 1,000 mg PO Q6H PRN 12/24/18 04/26/19 History Strength] methotrexate sodium 20 mg PO WK 12/24/18 04/26/19 History Allergies Allergy/AdvReac Type Severity Reaction Status Date / Time nitrofurantoin Allergy Severe HEADACHE Verified 04/26/19 12:48 tetracycline Allergy Severe RASH ON Verified 04/26/19 12:48 FACE sulfamethoxazole Allergy Swelling Unverified 04/26/19 12:48 [From Bactrim] of Lip/Tongue/Throat trimethoprim [From Bactrim] Allergy Swelling Unverified 04/26/19 12:48 of Lip/Tongue/Throat Ohnyxqu-Eao-Rgw Reductase AdvReac Intermediate LE edema Verified 04/26/19 12:48 Inhibitor oxycodone AdvReac Drowsy Verified 04/26/19 12:48 Past Med/Surg History Medical History Rheumatoid arthritis (Acute) Lumbar radiculopathy, acute (Acute) Chronic kidney disease, stage IV (severe) Diabetes mellitus History of pneumonia recent hospitalization october 2018 [facility] Hyperlipidemia Hypertension Hypothyroidism On prednisone therapy Surgical History Hx of tonsillectomy (Acute) History of x2 History of back surgery History of hysterectomy total History of total left knee replacement Family History Father Diabetes Lung cancer Cancer Hypertension Mother Diabetes Brain tumor Cancer Hypertension Malignant neoplasm of brain Aunt Breast cancer Social History Preferred Language: Lithuanian Communication Ability: Effective Visual Impairment: No Limitations Hearing Ability: Normal Beliefs That Will Affect Care: None marital status: Current Living Situation: Spouse current occupational status: 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 Feels Safe at Home: Yes Smoking Status: Never smoker Second Hand Exposure: No Hx Alcohol Use: No Hx Substance Use: No Review of Systems See HPI for pertinent positives & negatives. and A total of 10 systems reviewed and were otherwise negative Physical Exam Vital Signs Vital Signs - 24 hr 04/26/19 11:43 04/26/19 11:52 04/26/19 12:00 Temperature 36.9 C Temperature Source Oral Sepsis Recent Fever Within 48 Hours No Sepsis New/Unexplained Change in Mental Status No Sepsis Action Taken by Nursing No Action Required Pulse Rate 108 H 103 H Pulse Rate [Finger] Pulse Rate from SpO2 Sensor Respiratory Rate 20 19 Respiratory Effort / Characteristics Non-Labored Spontaneous Respiratory Depth Normal Respiratory Pattern Regular Blood Pressure 76/47 L 109/64 Blood Pressure [Right Arm] Blood Pressure Mean 56 79 Blood Pressure Mean [Right Arm] Blood Pressure Position Sitting Pulse Oximetry 95 Oxygen Delivery Method Room Air Nasal Cannula Room Air 04/26/19 12:12 04/26/19 12:15 04/26/19 12:20 Temperature Temperature Source Sepsis Recent Fever Within 48 Hours Sepsis New/Unexplained Change in Mental Status Sepsis Action Taken by Nursing Pulse Rate 98 H 99 H 97 H Pulse Rate [Finger] Pulse Rate from SpO2 Sensor Respiratory Rate 16 15 16 Respiratory Effort / Characteristics Respiratory Depth Respiratory Pattern Blood Pressure 101/65 Blood Pressure [Right Arm] Blood Pressure Mean 77 Blood Pressure Mean [Right Arm] Blood Pressure Position Pulse Oximetry Oxygen Delivery Method Room Air Room Air Room Air 04/26/19 12:30 04/26/19 12:31 04/26/19 12:40 Temperature Temperature Source Sepsis Recent Fever Within 48 Hours Sepsis New/Unexplained Change in Mental Status Sepsis Action Taken by Nursing Pulse Rate 95 H 94 H 95 H Pulse Rate [Finger] Pulse Rate from SpO2 Sensor Respiratory Rate 17 21 14 Respiratory Effort / Characteristics Respiratory Depth Respiratory Pattern Blood Pressure 95/58 L Blood Pressure [Right Arm] Blood Pressure Mean 70 Blood Pressure Mean [Right Arm] Blood Pressure Position Pulse Oximetry Oxygen Delivery Method Room Air Room Air Room Air 04/26/19 12:45 04/26/19 12:50 04/26/19 13:00 Temperature Temperature Source Sepsis Recent Fever Within 48 Hours Sepsis New/Unexplained Change in Mental Status Sepsis Action Taken by Nursing Pulse Rate 94 H 94 H 92 H Pulse Rate [Finger] Pulse Rate from SpO2 Sensor Respiratory Rate 16 17 14 Respiratory Effort / Characteristics Respiratory Depth Respiratory Pattern Blood Pressure 110/59 L 109/60 Blood Pressure [Right Arm] Blood Pressure Mean 76 76 Blood Pressure Mean [Right Arm] Blood Pressure Position Pulse Oximetry Oxygen Delivery Method Room Air Room Air Room Air 04/26/19 13:01 04/26/19 13:03 04/26/19 13:10 Temperature Temperature Source Sepsis Recent Fever Within 48 Hours Sepsis New/Unexplained Change in Mental Status Sepsis Action Taken by Nursing Pulse Rate 93 H 94 H Pulse Rate [Finger] 93 H Pulse Rate from SpO2 Sensor Respiratory Rate 13 21 15 Respiratory Effort / Characteristics Respiratory Depth Respiratory Pattern Blood Pressure Blood Pressure [Right Arm] 109/60 Blood Pressure Mean Blood Pressure Mean [Right Arm] 76 Blood Pressure Position Pulse Oximetry 97 Oxygen Delivery Method Room Air Room Air Room Air 04/26/19 13:20 04/26/19 13:30 04/26/19 13:40 Temperature Temperature Source Sepsis Recent Fever Within 48 Hours Sepsis New/Unexplained Change in Mental Status Sepsis Action Taken by Nursing Pulse Rate 93 H 94 H 94 H Pulse Rate [Finger] Pulse Rate from SpO2 Sensor Respiratory Rate 16 16 19 Respiratory Effort / Characteristics Respiratory Depth Respiratory Pattern Blood Pressure Blood Pressure [Right Arm] Blood Pressure Mean Blood Pressure Mean [Right Arm] Blood Pressure Position Pulse Oximetry Oxygen Delivery Method Room Air Room Air Room Air 04/26/19 13:47 04/26/19 13:48 04/26/19 13:50 Temperature Temperature Source Sepsis Recent Fever Within 48 Hours Sepsis New/Unexplained Change in Mental Status Sepsis Action Taken by Nursing Pulse Rate 92 H 93 H Pulse Rate [Finger] 92 H Pulse Rate from SpO2 Sensor 91 H 92 H Respiratory Rate 19 19 17 Respiratory Effort / Characteristics Respiratory Depth Respiratory Pattern Blood Pressure 113/62 Blood Pressure [Right Arm] 113/62 Blood Pressure Mean 79 Blood Pressure Mean [Right Arm] 79 Blood Pressure Position Pulse Oximetry 93 97 99 Oxygen Delivery Method Room Air Room Air Room Air 04/26/19 14:00 04/26/19 14:01 04/26/19 14:10 Temperature Temperature Source Sepsis Recent Fever Within 48 Hours Sepsis New/Unexplained Change in Mental Status Sepsis Action Taken by Nursing Pulse Rate 92 H 91 H 92 H Pulse Rate [Finger] Pulse Rate from SpO2 Sensor Respiratory Rate 18 16 19 Respiratory Effort / Characteristics Respiratory Depth Respiratory Pattern Blood Pressure 103/65 Blood Pressure [Right Arm] Blood Pressure Mean 77 Blood Pressure Mean [Right Arm] Blood Pressure Position Pulse Oximetry Oxygen Delivery Method Room Air Room Air Room Air 04/26/19 14:15 04/26/19 14:20 04/26/19 14:30 Temperature Temperature Source Sepsis Recent Fever Within 48 Hours Sepsis New/Unexplained Change in Mental Status Sepsis Action Taken by Nursing Pulse Rate 92 H 92 H 92 H Pulse Rate [Finger] Pulse Rate from SpO2 Sensor Respiratory Rate 16 18 17 Respiratory Effort / Characteristics Respiratory Depth Respiratory Pattern Blood Pressure 95/69 L 102/74 Blood Pressure [Right Arm] Blood Pressure Mean 77 83 Blood Pressure Mean [Right Arm] Blood Pressure Position Pulse Oximetry Oxygen Delivery Method Room Air Room Air Room Air 04/26/19 14:31 04/26/19 14:40 04/26/19 14:45 Temperature Temperature Source Sepsis Recent Fever Within 48 Hours Sepsis New/Unexplained Change in Mental Status Sepsis Action Taken by Nursing Pulse Rate 92 H 90 91 H Pulse Rate [Finger] Pulse Rate from SpO2 Sensor Respiratory Rate 18 17 18 Respiratory Effort / Characteristics Respiratory Depth Respiratory Pattern Blood Pressure 110/76 Blood Pressure [Right Arm] Blood Pressure Mean 87 Blood Pressure Mean [Right Arm] Blood Pressure Position Pulse Oximetry Oxygen Delivery Method Room Air Room Air Room Air 04/26/19 14:50 04/26/19 15:00 04/26/19 15:01 Temperature Temperature Source Sepsis Recent Fever Within 48 Hours Sepsis New/Unexplained Change in Mental Status Sepsis Action Taken by Nursing Pulse Rate 94 H 93 H 93 H Pulse Rate [Finger] Pulse Rate from SpO2 Sensor 95 H 94 H Respiratory Rate 16 19 20 Respiratory Effort / Characteristics Respiratory Depth Respiratory Pattern Blood Pressure 133/73 Blood Pressure [Right Arm] Blood Pressure Mean 93 Blood Pressure Mean [Right Arm] Blood Pressure Position Pulse Oximetry 98 98 Oxygen Delivery Method Room Air Room Air Room Air 04/26/19 15:10 04/26/19 15:15 04/26/19 15:20 Temperature Temperature Source Sepsis Recent Fever Within 48 Hours Sepsis New/Unexplained Change in Mental Status Sepsis Action Taken by Nursing Pulse Rate 93 H 94 H 104 H Pulse Rate [Finger] Pulse Rate from SpO2 Sensor 87 Respiratory Rate 15 19 17 Respiratory Effort / Characteristics Respiratory Depth Respiratory Pattern Blood Pressure 103/74 Blood Pressure [Right Arm] Blood Pressure Mean 83 Blood Pressure Mean [Right Arm] Blood Pressure Position Pulse Oximetry Oxygen Delivery Method Room Air Room Air Room Air 04/26/19 15:30 04/26/19 15:31 04/26/19 15:40 Temperature Temperature Source Sepsis Recent Fever Within 48 Hours Sepsis New/Unexplained Change in Mental Status Sepsis Action Taken by Nursing Pulse Rate 93 H 92 H 92 H Pulse Rate [Finger] Pulse Rate from SpO2 Sensor 92 H Respiratory Rate 15 19 16 Respiratory Effort / Characteristics Respiratory Depth Respiratory Pattern Blood Pressure 125/77 Blood Pressure [Right Arm] Blood Pressure Mean 93 Blood Pressure Mean [Right Arm] Blood Pressure Position Pulse Oximetry 94 Oxygen Delivery Method Room Air Room Air Room Air 04/26/19 15:45 04/26/19 15:50 04/26/19 16:00 Temperature Temperature Source Sepsis Recent Fever Within 48 Hours Sepsis New/Unexplained Change in Mental Status Sepsis Action Taken by Nursing Pulse Rate 93 H 94 H 95 H Pulse Rate [Finger] Pulse Rate from SpO2 Sensor 92 H 93 H 92 H Respiratory Rate 16 14 14 Respiratory Effort / Characteristics Respiratory Depth Respiratory Pattern Blood Pressure 118/70 105/65 Blood Pressure [Right Arm] Blood Pressure Mean 86 78 Blood Pressure Mean [Right Arm] Blood Pressure Position Pulse Oximetry 93 94 94 Oxygen Delivery Method Room Air Room Air Room Air 04/26/19 16:01 Temperature Temperature Source Sepsis Recent Fever Within 48 Hours Sepsis New/Unexplained Change in Mental Status Sepsis Action Taken by Nursing Pulse Rate 92 H Pulse Rate [Finger] Pulse Rate from SpO2 Sensor 93 H Respiratory Rate 15 Respiratory Effort / Characteristics Respiratory Depth Respiratory Pattern Blood Pressure Blood Pressure [Right Arm] Blood Pressure Mean Blood Pressure Mean [Right Arm] Blood Pressure Position Pulse Oximetry 93 Oxygen Delivery Method Room Air GENERAL: Patient is awake, alert, and in no acute distress.Patient is resting comfortably and showing no signs of anxiety EYES: The conjunctivae are clear. The pupils are round and reactive. EARS, NOSE, MOUTH AND THROAT: The nose is without any evidence of any deformity. Mucous membranes are dry.Tongue is midline NECK: The neck is nontender and supple. RESPIRATORY: Normal respiratory effort is noted. There is no evidence of wheezing rhonchi or rales to auscultation. CARDIOVASCULAR: Tachycardic rate and regular rhythm noted. There no murmurs rubs or gallops normal S1 normal S2 GASTROINTESTINAL: The abdomen is soft. Bowel sounds are present in all quadrants. Abdomen is nontender. MUSCULOSKELETAL/EXTREMITIES: There is no evidence of gross deformity. Full range of motion is noted in the hips and shoulders. SKIN: There is no obvious evidence of any rash. There are no petechiae, pallor or cyanosis noted. Pedal edema bilaterally. NEUROLOGIC: Patient is awake alert and oriented x3. Course 1154: The patient was evaluated in room C4. A history and physical were performed. 1423: I updated the patient who verbalized agreement and understanding of the treatment plan. 1424: I discussed the patient's case with Dr. Ginette Polk who will evaluate the patient for further management. Consultations Consultation #1: Dr. Ginette Polk Time: 14:24 Administered Medications Discontinued Medications Sodium Chloride (Nss 1000ml) 1,000 mls @ 999 mls/hr IV .Q1H1M ONE Stop: 04/26/19 12:56 Last Infusion: 04/26/19 13:13 Dose: 0 mls/hr Documented by: [id number] Admin: 04/26/19 12:08 Dose: 999 mls/hr Documented by: [id number] Sodium Chloride (Nss 1000ml) 1,000 mls @ 999 mls/hr IV .Q1H1M ONE Stop: 04/26/19 14:39 Last Infusion: 04/26/19 15:07 Dose: 0 mls/hr Documented by: [id number] Admin: 04/26/19 13:45 Dose: 999 mls/hr Documented by: [id number] Ciprofloxacin (Cipro) 400 mg in 200 mls @ 200 mls/hr IV NOW STA Stop: 04/26/19 14:38 Last Infusion: 04/26/19 15:07 Dose: 0 mls/hr Documented by: [id number] Admin: 04/26/19 13:45 Dose: 200 mls/hr Documented by: [id number] Medical Decision Making Differential Diagnosis Differential diagnosis: Etiologies such as esophagitis, variceal bleed, [place], [place] tear, gastritis, peptic ulcer disease, AVM, inflammatory bowel disease, ischemia, diverticulosis, colitis, malignancy, coagulopathy, thrombocytopenia, fissure, hemorrhoid, epistaxis , as well as others were entertained. Medical Records Attestation: I reviewed the patient's medical records. Home Medications Current Medication List: was personally reviewed by me Laboratory Data Attestation: I reviewed the patient's lab results. Result diagrams: 04/26/19 12:23 04/26/19 12:23 Lab Results 04/26/19 04/26/19 04/26/19 Range/Units 12:03 12:23 12:23 WBC (4.8-10.8) K/uL RBC (4.2-5.4) M/uL Hgb (12.0-16.0) g/dL POC Hgb (12.0-16.0) g/dl Hct (37-47) % POC Hct (37-47) % MCV (80-100) fL MCH (25-34) pg MCHC (32-36) g/dL RDW Std Deviation (36.4-46.3) fL RDW Coeff of [place] (11.5-14.5) % Plt Count (130-400) K/uL MPV (7.4-10.4) fL Immature Gran % (Auto) % Neut % (Auto) % Lymph % (Auto) % [place] % (Auto) % Eos % (Auto) % Baso % (Auto) % Immature Gran # (Auto) (0.00-0.02) K/uL Neut # (Auto) (1.4-6.5) K/uL Lymph # (Auto) (1.2-3.4) K/uL [place] # (Auto) (0.11-0.59) K/uL Eos # (Auto) (0-0.5) K/uL Baso # (Auto) (0-0.2) K/uL ESR (0-21) mm/hr PT 10.3 (9.0-12.0) Seconds INR 1.0 (0.9-1.1) APTT 31.3 H (21.0-31.0) Seconds PTT Ratio 1.2 POC Sodium (135-144) mEq/L Sodium (136-145) mmol/L POC Potassium (3.3-5.0) mEq/L Potassium (3.5-5.1) mmol/L POC Chloride (101-112) mEq/L Chloride (98-107) mmol/L Carbon Dioxide (21-32) mmol/L POC Total CO2 (24-31) mEq/l Anion Gap (3-11) POC Anion Gap (16-25) mmol/L POC BUN (7-18) mg/dl BUN (7-18) mg/dl Creatinine (0.6-1.2) mg/dl POC Creatinine (0.6-1.3) mg/dl Est Cr Clr Drug Dosing ml/min Est GFR ( Amer) Est GFR (Non-Af Amer) BUN/Creatinine Ratio (10-20) Glucose (70-99) mg/dl POC Glucose (other) (70-99) mg/dl Lactate (0.4-2.0) mmol/L Calcium (8.5-10.1) mg/dl POC Ioniz Calcium Mor (1.12-1.32) mmol/l Total Bilirubin (0.2-1) mg/dl AST (15-37) U/L ALT (12-78) U/L Alkaline Phosphatase (45-117) U/L Troponin I (0-0.045) ng/ml C-Reactive Protein (0-0.29) mg/dl Total Protein (6.4-8.2) gm/dl Albumin (3.4-5.0) gm/dl Globulin (2.5-4.0) gm/dl Albumin/Globulin Ratio (0.9-2) Procalcitonin 0.49 (0-0.5) ng/ml Urine Color Urine Appearance (Clear) Urine pH (4.5-7.5) Ur Specific [place] (1.000-1.030) Urine Protein (Negative) Urine Glucose (UA) (Negative) Urine Ketones (Negative) Urine Blood (Negative) Urine Nitrite (Negative) Urine Bilirubin (Negative) Urine Urobilinogen (Negative) Ur Leukocyte Esterase (Negative) Blood Type A Positive Antibody Screen NEGATIVE 04/26/19 04/26/19 04/26/19 Range/Units 12:23 12:23 12:23 WBC 12.37 H (4.8-10.8) K/uL RBC 3.12 L (4.2-5.4) M/uL Hgb 9.5 L (12.0-16.0) g/dL POC Hgb (12.0-16.0) g/dl Hct 29.9 L (37-47) % POC Hct (37-47) % MCV 95.8 (80-100) fL MCH 30.4 (25-34) pg MCHC 31.8 L (32-36) g/dL RDW Std Deviation 55.9 H (36.4-46.3) fL RDW Coeff of [place] 16.4 H (11.5-14.5) % Plt Count 480 H (130-400) K/uL MPV 9.6 (7.4-10.4) fL Immature Gran % (Auto) 0.2 % Neut % (Auto) 79.4 % Lymph % (Auto) 17.9 % [place] % (Auto) 1.5 % Eos % (Auto) 0.7 % Baso % (Auto) 0.3 % Immature Gran # (Auto) 0.03 H (0.00-0.02) K/uL Neut # (Auto) 9.81 H (1.4-6.5) K/uL Lymph # (Auto) 2.21 (1.2-3.4) K/uL [place] # (Auto) 0.19 (0.11-0.59) K/uL Eos # (Auto) 0.09 (0-0.5) K/uL Baso # (Auto) 0.04 (0-0.2) K/uL ESR 51 H (0-21) mm/hr PT (9.0-12.0) Seconds INR (0.9-1.1) APTT (21.0-31.0) Seconds PTT Ratio POC Sodium (135-144) mEq/L Sodium 135 L (136-145) mmol/L POC Potassium (3.3-5.0) mEq/L Potassium 3.5 (3.5-5.1) mmol/L POC Chloride (101-112) mEq/L Chloride 102 (98-107) mmol/L Carbon Dioxide 21 (21-32) mmol/L POC Total CO2 (24-31) mEq/l Anion Gap 12.0 H (3-11) POC Anion Gap (16-25) mmol/L POC BUN (7-18) mg/dl BUN 43 H (7-18) mg/dl Creatinine 2.75 H (0.6-1.2) mg/dl POC Creatinine (0.6-1.3) mg/dl Est Cr Clr Drug Dosing 20.1 ml/min Est GFR ( Amer) 20.3 Est GFR (Non-Af Amer) 17.5 BUN/Creatinine Ratio 15.6 (10-20) Glucose 157 H (70-99) mg/dl POC Glucose (other) (70-99) mg/dl Lactate (0.4-2.0) mmol/L Calcium 9.0 (8.5-10.1) mg/dl POC Ioniz Calcium Mor (1.12-1.32) mmol/l Total Bilirubin 0.4 (0.2-1) mg/dl AST 20 (15-37) U/L ALT 24 (12-78) U/L Alkaline Phosphatase 78 (45-117) U/L Troponin I < 0.015 (0-0.045) ng/ml C-Reactive Protein 15.90 H (0-0.29) mg/dl Total Protein 7.6 (6.4-8.2) gm/dl Albumin 3.2 L (3.4-5.0) gm/dl Globulin 4.4 H (2.5-4.0) gm/dl Albumin/Globulin Ratio 0.7 L (0.9-2) Procalcitonin (0-0.5) ng/ml Urine Color Urine Appearance (Clear) Urine pH (4.5-7.5) Ur Specific [place] (1.000-1.030) Urine Protein (Negative) Urine Glucose (UA) (Negative) Urine Ketones (Negative) Urine Blood (Negative) Urine Nitrite (Negative) Urine Bilirubin (Negative) Urine Urobilinogen (Negative) Ur Leukocyte Esterase (Negative) Blood Type Antibody Screen 04/26/19 04/26/19 04/26/19 Range/Units 12:23 12:36 15:00 WBC (4.8-10.8) K/uL RBC (4.2-5.4) M/uL Hgb (12.0-16.0) g/dL POC Hgb 9.9 L (12.0-16.0) g/dl Hct (37-47) % POC Hct 29 L (37-47) % MCV (80-100) fL MCH (25-34) pg MCHC (32-36) g/dL RDW Std Deviation (36.4-46.3) fL RDW Coeff of [place] (11.5-14.5) % Plt Count (130-400) K/uL MPV (7.4-10.4) fL Immature Gran % (Auto) % Neut % (Auto) % Lymph % (Auto) % [place] % (Auto) % Eos % (Auto) % Baso % (Auto) % Immature Gran # (Auto) (0.00-0.02) K/uL Neut # (Auto) (1.4-6.5) K/uL Lymph # (Auto) (1.2-3.4) K/uL [place] # (Auto) (0.11-0.59) K/uL Eos # (Auto) (0-0.5) K/uL Baso # (Auto) (0-0.2) K/uL ESR (0-21) mm/hr PT (9.0-12.0) Seconds INR (0.9-1.1) APTT (21.0-31.0) Seconds PTT Ratio POC Sodium 135 (135-144) mEq/L Sodium (136-145) mmol/L POC Potassium 3.5 (3.3-5.0) mEq/L Potassium (3.5-5.1) mmol/L POC Chloride 103 (101-112) mEq/L Chloride (98-107) mmol/L Carbon Dioxide (21-32) mmol/L POC Total CO2 21 L (24-31) mEq/l Anion Gap (3-11) POC Anion Gap 17.0 (16-25) mmol/L POC BUN 42 H (7-18) mg/dl BUN (7-18) mg/dl Creatinine (0.6-1.2) mg/dl POC Creatinine 2.9 H (0.6-1.3) mg/dl Est Cr Clr Drug Dosing ml/min Est GFR ( Amer) Est GFR (Non-Af Amer) BUN/Creatinine Ratio (10-20) Glucose (70-99) mg/dl POC Glucose (other) 161 H (70-99) mg/dl Lactate 1.3 (0.4-2.0) mmol/L Calcium (8.5-10.1) mg/dl POC Ioniz Calcium Mor 1.24 (1.12-1.32) mmol/l Total Bilirubin (0.2-1) mg/dl AST (15-37) U/L ALT (12-78) U/L Alkaline Phosphatase (45-117) U/L Troponin I (0-0.045) ng/ml C-Reactive Protein (0-0.29) mg/dl Total Protein (6.4-8.2) gm/dl Albumin (3.4-5.0) gm/dl Globulin (2.5-4.0) gm/dl Albumin/Globulin Ratio (0.9-2) Procalcitonin (0-0.5) ng/ml Urine Color Yellow Urine Appearance Clear (Clear) Urine pH 5.0 (4.5-7.5) Ur Specific [place] 1.013 (1.000-1.030) Urine Protein Negative (Negative) Urine Glucose (UA) Negative (Negative) Urine Ketones Negative (Negative) Urine Blood Negative (Negative) Urine Nitrite Negative (Negative) Urine Bilirubin Negative (Negative) Urine Urobilinogen Negative (Negative) Ur Leukocyte Esterase Negative (Negative) Blood Type Antibody Screen Imaging Data Radiologist's Impression: Radiology results as stated below per my review and the radiologist's interpretation: XR KUB/Abdomen 1 view CLINICAL HISTORY: diarrhea bowel change COMPARISON STUDY: No previous studies for comparison. FINDINGS: The soft tissues, psoas shadows, renal outlines and intestinal gas pattern appear normal. There is no evidence for bowel obstruction. No abnormal abdominal calcifications are seen. Unremarkable postoperative changes consistent with laminectomy and fusion of the low lumbar spine. IMPRESSION:: Normal study. The above report was generated using voice recognition software. It may contain grammatical, syntax or spelling errors. Electronically signed by: Cortez Rebolledo M.D. 04/26/2019 12:17 PM XR chest 1V portable CLINICAL HISTORY: Sepsis COMPARISON STUDY: 04/15/2019 FINDINGS: The cardiac and mediastinal contours are normal. There is no evidence of focal pulmonary consolidation. There is no evidence of failure. No pleural effusions are visualized.[There is a stable linear band of subsegmental atelectasis/scarring at the left lung base. IMPRESSION: No active disease in the chest. Electronically signed by: Jose Miguel Kulkarni M.D. 04/26/2019 12:09 PM ECG Data Attestation: I personally reviewed and interpreted this ECG as follows: Indication: tachycardia Rate (beats per minute): 107 Rhythm: sinus tachycardia Findings: no PAC, no PVC, no ST depression, no ST elevation, no acute ischemic change and no ectopy Comparison ECG Date: from (12/27/18) Change: no significant change Blood Pressure Blood Pressure Findings: Low blood pressure Blood Pressure Disposition: further management by hospitalist [facility] Narrative The patient is a 64-year-old female who presented to the emergency department for an evaluation of rectal bleeding and dizziness. The patient was found to have hypotension. She was treated with IV fluids in the emergency department. She was also treated with IV antibiotics. The patient recently had a stool specimen which was positive for Campylobacter. Given her elevated creatinine as well as her GI bleeding she was started on Cipro. I discussed patient's laboratory and radiographic studies with her. I also discussed her case with the on-call [facility] hospitalist group. They have agreed to evaluate the patient in the emergency department for further management and disposition. The patient was feeling much better on subsequent reevaluation. Impression & Plan Dysentery, Hypotension, Lower GI bleed Discharge Plan Visit Data Chief Complaint: Hypotension Stated Complaint: BLOOD IN STOOL Other Complaint: Diarrhea ED Provider: Lance Sheldon Discharge Problem: Dysentery, Hypotension, Lower GI bleed Patient Disposition: Being Evaluated by Hospitalist Forms Stand Alone Forms: My [facility] Prescriptions Prescriptions: No Action cyclobenzaprine 10 mg tablet 10 mg PO DAILY PRN (Reason: Muscle Spasm) RF: 0 metformin 500 mg Tablet 500 mg PO BID RF: 0 gabapentin 600 mg tablet 600 mg PO HS RF: 0 metoprolol succinate 50 mg Tablet Extended Release 24 Hr 100 mg PO QAM RF: 0 lisinopril 20 mg tablet 40 mg PO QAM RF: 0 levothyroxine 100 mcg Tablet 100 mcg PO QAM RF: 0 ferrous sulfate [Feosol] 325 mg (65 mg iron) Tablet 325 mg PO QAM RF: 0 omeprazole 20 mg Capsule,Delayed Release(Dr/Ec) 20 mg PO QAM RF: 0 folic acid 1 mg tablet 1 mg PO QAM RF: 0 magnesium 250 mg Tablet 250 mg PO QAM RF: 0 cholecalciferol (vitamin D3) [Vitamin D3] 1,000 unit Capsule 1,000 unit PO QAM RF: 0 rosuvastatin 40 mg tablet 40 mg PO HS RF: 0 insulin glargine 100 unit/mL (3 mL) insulin pen 16 unit subcut QPM RF: 0 trimethoprim 100 mg tablet 100 mg PO HS Qty: 1 RF: 0 acetaminophen [Tylenol Extra Strength] 500 mg Tablet 1,000 mg PO Q6H PRN (Reason: Pain) RF: 0 methotrexate sodium 2.5 mg Tablet 20 mg PO WK RF: 0 Humira 40 mg/0.8 mL Syringe Kit 40 units SUBCUT DIRECTED RF: 0 Referrals Referrals: Corby Arzola MD [Primary Care Provider] - Discharge Problem: Hypotension Qualifiers: Hypotension type: unspecified hypotension type Qualified Code(s): I95.9 - Hypotension, unspecified The scribe's documentation has been prepared under my direction and personally reviewed by me in its entirety. I confirm that the note above accurately reflects all work, treatment, procedures, and medical decision making performed by me.
[2019-04-26] MEDS ORDERED: CARBOHYDRATES FOR HYPOGLYCEMIA PO PRN (18:48)
[2019-04-26] MEDS ORDERED: GLUCAGON FOR INJ 1 MG VIAL SQ PRN (18:48)
[2019-04-26] MEDS ORDERED: GLUCOSE 40% GEL 15 GM TUBE PO PRN (18:48)
[2019-04-26] MEDS ORDERED: DEXTROSE 50% 50 ML SYRINGE IV PRN (18:48)
[2019-04-26] MEDS ORDERED: ACETAMINOPHEN 500 MG TAB PO PRN (18:48)
[2019-04-26] MEDS ORDERED: GLUCOSE 10 TABS/TUBE PO PRN (18:48)
[2019-04-26] MEDS: SODIUM CHLORIDE 0.9% 1000ML 1,000 ML IV SCH (19:40)
[2019-04-26] MEDS: INSULIN ASPART 100 UNITS/ML 3 ML PEN SC SCH (19:49)
[2019-04-26] MEDS: GABAPENTIN 300 MG CAP PO SCH (19:50)
[2019-04-26] MEDS: INSULIN GLARGINE SOLOSTAR 100 UNITS/ML 3 ML PEN SQ SCH (19:51)
[2019-04-27] MEDS: SODIUM CHLORIDE 0.9% 1000ML 1,000 ML IV SCH (02:39)
[2019-04-27] MEDS: ACETAMINOPHEN 325 MG TAB PO PRN ×2 (03:47→17:09)
[2019-04-27] MEDS: LEVOTHYROXINE SODIUM 100 MCG TABLET PO SCH (06:07)
[2019-04-27 07:08] LABS: Basophils # (auto) 0.04 K/uL (0-0.2); Basophils % (auto) 0.4 %; Eosinophils # (auto) 0.15 K/uL (0-0.5); Eosinophils % (auto) 1.6 %; Hematocrit (blood only) 25.7 % (37-47); Hemoglobin 8.1 g/dL (12.0-16.0); Immature Granulocytes # (auto) 0.04 K/uL (0.00-0.02); Immature Granulocytes % (auto) 0.4 %; Lymphocytes # (auto) 1.93 K/uL (1.2-3.4); Mean Corpuscular Hgb Conc 31.5 g/dL (32-36); Mean Corpuscular Volume 97.7 fL (80-100); Mean Platelet Volume 9.2 fL (7.4-10.4); Monocytes % (auto) 1.1 %; Neutrophils # (auto) 6.91 K/uL (1.4-6.5); Neutrophils % (auto) 75.5 %; Platelet Count 365 K/uL (130-400); RDW Coefficient of Variation 15.9 % (11.5-14.5); RDW Standard Deviation 56.4 fL (36.4-46.3); Red Blood Count 2.63 M/uL (4.2-5.4); White Blood Count 9.17 K/uL (4.8-10.8)
[2019-04-27 07:41] LABS: BUN Creatinine Ratio 16.8 (10-20); Calcium 8.7 mg/dl (8.5-10.1); Est GFR (African American) 29.3; Est GFR (Non-African American) 25.3; Potassium 3.6 mmol/L (3.5-5.1)
[2019-04-27] MEDS: MAGNESIUM OXIDE 400 MG TAB PO SCH (08:40)
[2019-04-27] MEDS: FOLIC ACID 1 MG TAB PO SCH (08:41)
[2019-04-27] MEDS: PANTOprazole 40 MG TAB PO SCH (08:41)
[2019-04-27] MEDS: FERROUS SULFATE 325 MG TAB PO SCH (08:41)
[2019-04-27] MEDS: INSULIN ASPART 100 UNITS/ML 3 ML PEN SC SCH ×4 (08:44→21:47)
[2019-04-27] MEDS ORDERED: CIPROFLOXACIN 400 MG/200 ML BAG IV SCH (09:00)
--- NOTE | 2019-04-27 10:10 | Hospitalist Progress Note ---
Date of Service April 27, 2019 Assessment & Plan (1) Lower GI bleed: Patient with acute onset of mucoid, bloody diarrhea. Most likely secondary to colitis, infection/inflammation. Recently diagnosed with Campylobacter jejuni which was treated with Cipro x 3 days. Patient reports resolution of symptoms after treatment. Uncertain if this represents recurrence of C. jejuni and treatment failure or a new infectious process, concern for c. diff given patient's immunocompromised status, recent hospital stay and exposure to multiple antibiotics -Admit to medical floor It appears this is a recurrence of her C. jejuni. Patient is on treatment for rheumatoid arthritis and likely will need 7 day course of medication. Given that she has improved with antibiotics, will hold off further imaging. (2) Acute blood loss anemia: will monitor CBC and hemoglobin q4-6h. If hemoglobin is below 7, will then transfuse. will monitor. (3) Diabetes mellitus type II, controlled: Will continue to monitor. -CC diet as tolerated -Continue gabapentin qHS for neuropathy (4) Fever: Temps have been controlled. (5) Hypothyroidism: Chronic/ TSH=2.06 in October -Continue Synthroid (6) Hypertension: Blood pressure was low on arrival, presently 133/73 -Hold home antihypertensives, Metoprolol and Lisinopril in setting of AISHWARYA and borderline low BP -Continue to monitor (7) Acute kidney injury: Creatinine has improved. will monitor. (8) Rheumatoid arthritis: Hold MTX and Humira for now in setting of possible infection. Hold prophylactic Bactrim for now. F/E/N - NSS at 125mLhr 2 liters, monitor electrolytes and replete as needed, CC/AHA diet as tolerated Ppx - SCDs, continue home Protonix Code -Full Spent 35 minutes in management of patient. Subjective Patient reports having mucous discharge from rectum on day of admission. She had 5 BM with blood since Friday evening accompanied by abdominal cramps. No fever chills. Last bm was last night. Feels better today, patient denies any new complaints today. Review of Systems Review of Systems: All systems reviewed & are unremarkable except as noted in HPI & below Physical Exam Physical Exam: General: patient resting comfortably, NAD, non-toxic in appearance, AA&O x 4 Skin: warm, dry, intact, no rashes or lesions HEENT: NC/AT, PERRL, EOMI, anicteric sclera, conjunctiva without injection, external ear normal to inspection and nontender, nares patent, moist mucus membranes, dentition intact, no oropharyngeal lesions, neck supple, trachea midline, no LAD, no thyromegaly, no JVD Heart: +S1/S2, regular, no m/r/g Lungs: equal air entry bilaterally, no rales/rhonchi/wheezes Abd: +BS, soft, NT/ND, no masses/organomegaly/ascites Ext: warm, 2+ pulses in UE/LE bilaterally, no clubbing/cyanosis or edema Neuro: nonfocal, patient AA&O x 4, speech intact, no facial droop, moving all extremities on command with equal strength 5/5 Results & Data Vital Signs (Past 12 Hours) Vital Signs Temp Pulse Resp BP Pulse Ox 04/27/19 07:32 36.8 C 107 H 18 106/66 95 04/26/19 23:45 37.1 C 101 H 20 106/66 94 PG Care Time/CCT Total # of Minutes Spent Total Time Spent with Patient: Total time spent is greater than 50% in coordination of care (as documented) at patient's floor/unit and/or counseling patient: (1) Rheumatoid arthritis Rheumatoid arthritis location: unspecified site Rheumatoid factor presence: unspecified presence Qualified Code(s): M06.9 - Rheumatoid arthritis, unspecified (2) Hypothyroidism Hypothyroidism type: unspecified Qualified Code(s): E03.9 - Hypothyroidism, unspecified (3) Diabetes mellitus type II, controlled Diabetes mellitus complication status: without complication Diabetes mellitus correction insulin use: with correction use Qualified Code(s): E11.9 - Type 2 diabetes mellitus without complications; Z79.4 - terminal clerk (current) use of insulin (4) Hypertension Hypertension type: essential hypertension Qualified Code(s): I10 - Essential (primary) hypertension
[2019-04-27 11:14] LABS: Hematocrit (blood only) 24.7 % (37-47); Hemoglobin 7.8 g/dL (12.0-16.0)
[2019-04-27 15:16] LABS: Hematocrit (blood only) 24.1 % (37-47); Hemoglobin 7.7 g/dL (12.0-16.0)
[2019-04-27 15:51] LABS: BUN Creatinine Ratio 15.2 (10-20); Calcium 8.8 mg/dl (8.5-10.1); Creatinine Clr Calc Pharmacy 36.1 ml/min; Est GFR (African American) 36.6; Est GFR (Non-African American) 31.5; Potassium 3.4 mmol/L (3.5-5.1)
[2019-04-27] MEDS ORDERED: POTASSIUM CHLORIDE 20 MEQ TABCR PO STA (17:31)
[2019-04-27] MEDS: CIPROFLOXACIN 400 MG/200 ML BAG IV SCH (21:49)
[2019-04-27] MEDS: INSULIN GLARGINE SOLOSTAR 100 UNITS/ML 3 ML PEN SQ SCH (21:50)
[2019-04-27] MEDS: GABAPENTIN 300 MG CAP PO SCH (21:51)
[2019-04-27 23:05] LABS: Hematocrit (blood only) 24.2 % (37-47); Hemoglobin 7.7 g/dL (12.0-16.0)
[2019-04-28] MEDS: ACETAMINOPHEN 325 MG TAB PO PRN (04:22)
[2019-04-28] MEDS: LEVOTHYROXINE SODIUM 100 MCG TABLET PO SCH (06:10)
[2019-04-28] MEDS: FERROUS SULFATE 325 MG TAB PO SCH (08:30)
[2019-04-28] MEDS: MAGNESIUM OXIDE 400 MG TAB PO SCH (08:30)
[2019-04-28] MEDS: FOLIC ACID 1 MG TAB PO SCH (08:30)
[2019-04-28] MEDS: PANTOprazole 40 MG TAB PO SCH (08:30)
[2019-04-28] MEDS: INSULIN ASPART 100 UNITS/ML 3 ML PEN SC SCH ×2 (08:32→12:48)
[2019-04-28] MEDS: CIPROFLOXACIN 400 MG/200 ML BAG IV SCH (08:35)
[2019-04-28 09:34] LABS: Hematocrit (blood only) 28.2 % (37-47); Mean Corpuscular Hgb Conc 31.9 g/dL (32-36); Mean Corpuscular Volume 96.6 fL (80-100); Platelet Count 322 K/uL (130-400); RDW Coefficient of Variation 15.5 % (11.5-14.5); RDW Standard Deviation 53.8 fL (36.4-46.3); Red Blood Count 2.92 M/uL (4.2-5.4); White Blood Count 5.63 K/uL (4.8-10.8)
[2019-04-28 10:11] LABS: BUN Creatinine Ratio 10.8 (10-20); Creatinine Clr Calc Pharmacy 43.8 ml/min; Est GFR (African American) 46.3; Potassium 3.6 mmol/L (3.5-5.1)
[2019-04-28] MEDS: METOPROLOL SUCC 50MG EXT REL TAB PO SCH ×2 (13:29→13:32)
--- NOTE | 2019-05-06 11:58 | Discharge Summary ---
Date of Service April 28, 2019 Admission HPI Per Admitting Provider Daniela Champagne is a 64yo C female with history of RA on Humira and MTX presenting with bloody diarrhea. Patient was first seen with this complaint on 04/15/19 - at that time she was complaining of multiple episodes of diarrhea as well as nausea and vomiting. She had a workup performed which came back positive for Campylobacter. Patient was prescribed Cipro 750mg po daily x 3 days She was advised to hold her MTX x 10 days while on antibiotics. No definitive source of the Campylobacter was identified. Patient has been in contact with the Dept of Health re: source of infection. Additionally patient with recent lumbar surgery and had an unhealed portion of her surgical incision with some drainage which cultured positive for MRSA. She was initially treated with Vancomycin and Ceftriaxone and was prescribed Bactrim DS x 10 days on discharge per Dr. Mane. She is to be reevaluated for possible surgical washout at the end of this month. She reports that her symptoms initially improved, however presents today with recurrence of diarrhea. Last evening she had 10 episodes of diarrhea - small volume, mucoid with dark red blood. She also had severe abdominal cramping which was relieved with BM. She has had poor appetite and decreased oral intake. Also with fever of 102.7 this AM and chills. Also had a brief episode of confusion yesterday. Last BM was this AM around 06:00. ER Course: ROMY Alvarez Principal Diagnosis Infectious diarrhea by C. jejuni Discharge Exam General: patient resting comfortably, NAD, non-toxic in appearance, AA&O x 4 Skin: warm, dry, intact, no rashes or lesions HEENT: NC/AT, PERRL, EOMI, anicteric sclera, conjunctiva without injection, external ear normal to inspection and nontender, nares patent, moist mucus membranes, dentition intact, no oropharyngeal lesions, neck supple, trachea midline, no LAD, no thyromegaly, no JVD Heart: +S1/S2, regular, no m/r/g Lungs: equal air entry bilaterally, no rales/rhonchi/wheezes Abd: +BS, soft, NT/ND, no masses/organomegaly/ascites Ext: warm, 2+ pulses in UE/LE bilaterally, no clubbing/cyanosis or edema Neuro: nonfocal, patient AA&O x 4, speech intact, no facial droop, moving all extremities on command with equal strength 5/5 Discharge Data Allergies Allergy/AdvReac Type Severity Reaction Status Date / Time nitrofurantoin Allergy Severe HEADACHE Verified 04/26/19 12:48 tetracycline Allergy Severe RASH ON Verified 04/26/19 12:48 FACE sulfamethoxazole Allergy Swelling Unverified 04/26/19 12:48 [From Bactrim] of Lip/Tongue/Throat trimethoprim [From Bactrim] Allergy Swelling Unverified 04/26/19 12:48 of Lip/Tongue/Throat Rllnnsc-Hbp-Rls Reductase AdvReac Intermediate LE edema Verified 04/26/19 12:48 Inhibitor oxycodone AdvReac Drowsy Verified 04/26/19 12:48 Consultations 04/26/19 14:29 ED Decision to Admit Stat Hospital Course (1) Lower GI bleed: Patient with acute onset of mucoid, bloody diarrhea. Most likely secondary to colitis, infection/inflammation. Recently diagnosed with Campylobacter jejuni which was treated with Cipro x 3 days. Patient reports resolution of symptoms after treatment. Uncertain if this represents recurrence of C. jejuni and treatment failure or a new infectious process, concern for c. diff given patient's immunocompromised status, recent hospital stay and exposure to multiple antibiotics -Admit to medical floor It appears this is a recurrence of her C. jejuni. Patient is on treatment for rheumatoid arthritis and likely will need 7 day course of medication. Given that she has improved with antibiotics, will hold off further imaging. On day of discharge, patient continued to improve. Will continue antibiotics for 7 days total. (2) Acute blood loss anemia: Patient did not require transfusion, during hospital stay (3) Diabetes mellitus type II, controlled: Will continue to monitor. -CC diet as tolerated -Continue gabapentin qHS for neuropathy (4) Fever: Temps have been controlled. (5) Hypothyroidism: Chronic/ TSH=2.06 in October -Continue Synthroid (6) Hypertension: Blood pressure was low on arrival, presently 133/73 -Hold home antihypertensives, Metoprolol and Lisinopril in setting of AISHWARYA and borderline low BP -Continue to monitor (7) Acute kidney injury: Creatinine has improved. will monitor. (8) Rheumatoid arthritis: Hold MTX and Humira for now in setting of possible infection. Hold prophylactic Bactrim for now. F/E/N - NSS at 125mLhr 2 liters, monitor electrolytes and replete as needed, CC/AHA diet as tolerated Ppx - SCDs, continue home Protonix Code -Full Total Time Total Time Spent Total Time Spent (In Minutes): 32 Total Time Includes: Examination of the Patient, Discharge Planning and Medication Reconciliation Discharge Plan Discharge Items Patient Disposition: Home - Self-Care Reason For Visit: BLOODY DIARRHEA Discharge Diagnosis: Bloody diarrhea Discharge Goals: Decrease discomfort Activity: Resume your previous activity Non-emergency contact: Primary Care Provider Call non-emergency contact if: you have any medication questions Follow-up/Referrals: Corby Arzola MD [Primary Care Provider] - 05/03/19 3:00 pm (Please, follow up at Dr.Paul Arzola's office with his associate, Dr. Mcdaniels, on FridayMay 03 at 3:00 pm. *If you need to hange this appointment, call the office at [phone].) Diet: Carb Consistent or DM2 and Low Fiber Addtl Provider Instructions: Followup with PCP in 1-2 weeks Prescriptions: Continued cyclobenzaprine 10 mg tablet 10 mg PO DAILY PRN (Reason: Muscle Spasm) RF: 0 metformin 500 mg Tablet 500 mg PO BID RF: 0 gabapentin 600 mg tablet 600 mg PO HS RF: 0 metoprolol succinate 50 mg Tablet Extended Release 24 Hr 100 mg PO QAM RF: 0 lisinopril 20 mg tablet 40 mg PO QAM RF: 0 levothyroxine 100 mcg Tablet 100 mcg PO QAM RF: 0 ferrous sulfate [Feosol] 325 mg (65 mg iron) Tablet 325 mg PO QAM RF: 0 omeprazole 20 mg Capsule,Delayed Release(Dr/Ec) 20 mg PO QAM RF: 0 folic acid 1 mg tablet 1 mg PO QAM RF: 0 magnesium 250 mg Tablet 250 mg PO QAM RF: 0 cholecalciferol (vitamin D3) [Vitamin D3] 1,000 unit Capsule 1,000 unit PO QAM RF: 0 rosuvastatin 40 mg tablet 40 mg PO HS RF: 0 insulin glargine 100 unit/mL (3 mL) insulin pen 16 unit subcut QPM RF: 0 trimethoprim 100 mg tablet 100 mg PO HS Qty: 1 RF: 0 acetaminophen [Tylenol Extra Strength] 500 mg Tablet 1,000 mg PO Q6H PRN (Reason: Pain) RF: 0 methotrexate sodium 2.5 mg Tablet 20 mg PO WK RF: 0 Humira 40 mg/0.8 mL Syringe Kit 40 units SUBCUT DIRECTED RF: 0 Stand-Alone Forms: [facility] Discharge Orders: Discharge Order (Routine); Ordered 04/28/19 Ordered By: Gilberto Hernadez Admission Data Admit Date/Time: 04/26/19 16:53 Attending Provider: Gilberto Hernadez Admit Provider: Ghada Reina Primary Care Provider: Corby Arzola Other Providers: Ghada Reina Service: Medical Other Interventions: Discharge Summary Assessment (RN) Last Done: 04/28/19 14:35 DC Date/Time DO NOT enter until pt leaves facility: 04/28/19 16:59
== END 2019-04-28 16:59 | disposition home or self-care (01) | DRG 378 ==
LOC: ED 11:35 → 4W 16:53 → SUATTDRO 16:53 → 4W 18:06
DX: N18.4 Chronic kidney disease, stage 4 (severe); Z88.2 Allergy status to sulfonamides; Z88.5 Allergy status to narcotic agent; I12.9 Hypertensive chronic kidney disease with stage 1 through stage 4 chronic kidney disease, or unspecified chronic kidney disease; N17.9 Acute kidney failure, unspecified; I95.9 Hypotension, unspecified; Z87.01 Personal history of pneumonia (recurrent); K92.2 Gastrointestinal hemorrhage, unspecified; M06.9 Rheumatoid arthritis, unspecified; E03.9 Hypothyroidism, unspecified; Z83.3 Family history of diabetes mellitus; Z96.653 Presence of artificial knee joint, bilateral; E78.5 Hyperlipidemia, unspecified; Z79.84 Long term (current) use of oral hypoglycemic drugs; D62 Acute posthemorrhagic anemia; E11.9 Type 2 diabetes mellitus without complications; Z90.710 Acquired absence of both cervix and uterus

== ENCOUNTER 2019-05-27 09:45 | Observation (INO) ==
--- NOTE | 2019-05-14 09:21 | Anesthesiology Consultation ---
Date of Service May 14, 2019 Assessment & Plan (1) Encounter for pre-operative examination: Chart Review Chart Review: Acceptable Risk for Surgery (pending evaluation of clinical status AM DOS) and Patient NOT seen in Pre Admission Testing History Surgery Operation Date: 05/27/19 11:40 Proposed Procedures p Wound Revision Lumbar Spine - Darrel Mane DO Height/Weight Height: 5 ft 7 in Weight: 73.482 kg Allergies Allergy/AdvReac Type Severity Reaction Status Date / Time nitrofurantoin Allergy Severe HEADACHE Verified 05/13/19 15:31 tetracycline Allergy Severe RASH ON Verified 05/13/19 15:31 FACE sulfamethoxazole Allergy Swelling Unverified 05/13/19 15:31 [From Bactrim] of Lip/Tongue/Throat trimethoprim [From Bactrim] Allergy Swelling Unverified 05/13/19 15:31 of Lip/Tongue/Throat Iekubng-Tcj-Yih Reductase AdvReac Intermediate LE edema Verified 05/13/19 15:31 Inhibitor oxycodone AdvReac Drowsy Verified 05/13/19 15:31 Medications Home Medications Medication Instructions Recorded Confirmed Last Taken cholecalciferol (vitamin D3) 1,000 unit PO QAM 10/26/18 05/13/19 12/23/18 18:00 [Vitamin D3] cyclobenzaprine 10 mg PO DAILY PRN 10/26/18 05/13/19 12/23/18 08:00 ferrous sulfate [Feosol] 325 mg PO QAM 10/26/18 05/13/19 12/23/18 08:00 folic acid 1 mg PO QAM 10/26/18 05/13/19 12/23/18 08:00 gabapentin 600 mg PO HS 10/26/18 05/13/19 12/23/18 21:00 insulin glargine 16 unit SUBCUT QPM 10/26/18 05/13/19 12/23/18 21:00 levothyroxine 100 mcg PO QAM 10/26/18 05/13/19 12/24/18 06:30 lisinopril 40 mg PO QAM 10/26/18 05/13/19 12/23/18 08:30 magnesium 250 mg PO QAM 10/26/18 05/13/19 12/23/18 08:00 metformin 500 mg PO BID 10/26/18 05/13/19 12/23/18 18:00 metoprolol succinate 100 mg PO QAM 10/26/18 05/13/19 12/24/18 06:30 omeprazole 20 mg PO QAM 10/26/18 05/13/19 12/24/18 06:30 rosuvastatin 40 mg PO HS 10/26/18 05/13/19 12/23/18 21:00 trimethoprim 100 mg PO HS #1 tab 10/30/18 05/13/19 12/23/18 21:00 Humira 40 units SUBCUT DIRECTED 12/24/18 05/13/19 12/12/18 08:00 acetaminophen [Tylenol Extra 1,000 mg PO Q6H PRN 12/24/18 05/13/19 12/23/18 21:00 Strength] methotrexate sodium 20 mg PO WK 12/24/18 05/13/19 12/12/18 08:00 furosemide 20 mg tablet 20 mg PO DAILY #30 tab 05/13/19 05/13/19 Unknown Past Medical History Medical History Anemia acute on chronic; patient s/p recent c. jejuni infection with bloody diarrhea (s/p antibiotics) with hgb now stable in the 9 range per most recent labs (no blood transfusion required during recent hospitalization) Rheumatoid arthritis CKD (chronic kidney disease) Diabetes mellitus IDDM History of MRSA infection lumbar surgical incision s/p vanco/ceftriaxone/bactrim per 04/2019 [facility] discharge summary History of campylobacteriosis 04/2019 ([facility]) s/p antibiotics treatment Hyperlipidemia Hypertension Hypothyroidism Lumbar radiculopathy Past Family History Family History Father Diabetes Lung cancer Cancer Hypertension Mother Diabetes Brain tumor Cancer Hypertension Malignant neoplasm of brain Aunt Breast cancer Past Surgical History Surgical History History of x2 History of back surgery History of hysterectomy total History of total left knee replacement Hx of tonsillectomy Status post laminectomy with spinal fusion L2-L5 laminectomy/fusion: 12/24/18: Grade view 1, MAC#3, ETT 7.0 Social History Smoking Status: Never smoker Hx Alcohol Use: No Alcohol type: beer and wine alcohol intake frequency: holidays/special occasions only Hx Substance Use: No substance use type: does not use Testing Laboratory Results 05/11/19 WBC 6.60 H/H 9.3/29.8 PLATELETS 639 SODIUM 132 POTASSIUM 4.3 CHLORIDE 99 CO2 24 BUN 13 CREATININE 1.44 (significantly improved s/p recent AISHWARYA 04/2019*) GLUCOSE 96 PT 10.3 PTT 31.3 INR 1.0 UA negative bacteria Electrocardiogram Date: 04/26/19 ST at 107bpm. Otherwise "normal" EKG. Chest X-Ray Date: 04/26/19 Findings: + NAD Echocardiogram Date: 10/31/17 EF: 60-65% LV Function: normal RWMA: + none Other Findings: + LVH (Moderate, concentric) and + diastolic dysfunction (Type I) Valvular Disease: + no significant valvular disease No significant change from prior study on 05/10/16. Cervical Spine Date: 12/08/18 Mild to moderate intervertebral disc space narrowing at C4-C5, C5-C6 and C6-C7. Mild to moderate multilevel spondylitic spurring and facet arthrosis. There is no acute fracture or subluxation. C1-C2 interval appears normal. No prevertebral soft tissue swelling. Alignment is preserved with both flexion and extension.
--- NOTE | 2019-05-26 12:51 | History and Physical Report ---
DATE OF ADMISSION: 05/27/2019 CHIEF COMPLAINT: Incisional pain. HISTORY OF PRESENT ILLNESS: Daniela is delightful. She is 64, slightly compromised with some medical problems. She has a small wound dehiscence. Dehiscence and ulceration would not quite heal for her. It is more granulation tissue. We are taking here for elective surgery for revision of her spinal wound, at least about 1 inch of it. PAST MEDICAL HISTORY: Positive for diabetes, rheumatoid arthritis, high cholesterol, hypertension. PAST SURGICAL HISTORY: Knee replacement, hysterectomy, . ALLERGIES: MULTIPLE. SOCIAL HISTORY: . No alcohol or tobacco. Active lifestyle, surgery several months ago. REVIEW OF SYSTEMS: Denies any fevers, sweats, chills. Ear, nose and throat negative. Denies chest pain, palpitations. No asthma or wheezing. No nausea or vomiting. She has musculoskeletal pain, although minimal and really has no significant complaints. She does have immune deficiency. MEDICATIONS: Listed. PHYSICAL EXAMINATION: GENERAL: She is alert and oriented. She is 5 feet 7 inches. She is 160 pounds. She is in no terrible distress. VITAL SIGNS: Blood pressure 130/80, pulse 80, respiratory rate 16. HEENT: Pupils react to light and accommodation. Ear, nose, and throat clear. ABDOMEN: Soft, nontender, bowel sounds present. ASSESSMENT: Her incision demonstrates slight dehiscence, a small ulceration, it is about 1 cm in size. PLAN: Includes wound revision, lumbar spine, under general anesthetic.
[~2019-05-27 09:45] MED LIST changes: -LR 60ML/HR IV SCH; +SODIUM CHLORIDE 0.9% 1000ML IV SCH
[2019-05-27] MEDS ORDERED: fentaNYL citrate 100 MCG/2 ML VIAL ONE ×2 (11:34)
[2019-05-27] MEDS ORDERED: MIDAZOLAM HCL 1 MG/ML 2ML VIAL ONE (11:34)
[2019-05-27] MEDS ORDERED: VANCOMYCIN HCL 1000MG/20ML VIAL ONE (12:23)
[2019-05-27] MEDS ORDERED: THROMBIN FOR SOLN 20000 UNIT KIT ONE (12:24)
[2019-05-27] MEDS ORDERED: BUPIVACAINE/EPINEPHRINE 0.5% MPF 1:200,000 30 ML VIAL ONE (12:24)
[2019-05-27] MEDS ORDERED: GELATIN SPONGE SZ 100 ONE (12:24)
[2019-05-27] MEDS ORDERED: BACITRACIN INJ 50,000 UNIT VIAL ONE (12:24)
--- NOTE | 2019-05-27 12:40 | History & Physical Bridge Note ---
Date of Service May 27, 2019 History & Physical Bridge Note I have examined the patient, reviewed the History & Physical and in the interval since the performance of the History & Physical I have noted the following changes of clinical significance: no changes noted
[2019-05-27] MEDS ORDERED: LIDOCAINE HCL 2% 2 ML VIAL/AMP(20MG/ML) INFIL ONE (13:13)
[2019-05-27] MEDS ORDERED: PROPOFOL IV EMULSION 10 MG/ML 20 ML VIAL IV ONE (13:13)
[2019-05-27] MEDS ORDERED: SUCCINYLCHOLINE CHLORIDE 20 MG/ML 10 ML VIAL ONE (13:13)
[2019-05-27] MEDS ORDERED: ONDANSETRON INJ 2 MG/ML 2 ML VIAL ONE (13:13)
--- NOTE | 2019-05-27 13:32 | Post Operative Brief Note ---
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
[2019-05-27] MEDS ORDERED: fentaNYL citrate 100 MCG/2 ML VIAL IV PRN (13:51)
[2019-05-27] MEDS ORDERED: PROMETHAZINE HCL 12.5 MG in SODIUM CHLORIDE 0.9% 50 ML IV PRN (13:51)
[2019-05-27] MEDS ORDERED: NALOXONE HCL 0.4 MG/1 ML VIAL/CARP IV PRN (13:51)
[2019-05-27] MEDS ORDERED: LABETALOL HCL IV 5 MG/ML 20ML IV PRN (13:51)
[2019-05-27] MEDS ORDERED: ATROPINE SULFATE 0.1 MG/ML 10ML SYR IV PRN (13:51)
[2019-05-27] MEDS ORDERED: FLUMAZENIL 0.1 MG/1 ML 10 ML VIAL IV PRN (13:51)
[2019-05-27] MEDS ORDERED: ONDANSETRON INJ 2 MG/ML 2 ML VIAL IV PRN ×2 (13:51→14:37)
[2019-05-27] MEDS ORDERED: ePHEDrine sulfate 50 MG/ML AMP IV PRN (13:51)
--- NOTE | 2019-05-27 14:27 | Anesthesiology Progress Note ---
Date of Service May 27, 2019 Anesthesia Post Procedure Vital Signs Vital Signs: Temp Pulse Pulse Resp BP Pulse Ox 05/27/19 14:20 96 H 12 136/65 100 05/27/19 14:10 36.7 C 98 H 15 148/77 H 100 05/27/19 14:00 98 H 12 154/79 H 100 05/27/19 13:50 101 H 12 149/83 H 97 05/27/19 13:40 36.7 C 104 H 16 158/81 H 99 05/27/19 10:24 36.7 C 82 20 150/89 H 99 Transfer of Care Handoff Completed per policy Notes Mental Status: alert / awake / arousable Patient Amnestic to Procedure: Yes Nausea / Vomiting: adequately controlled Pain: adequately controlled Airway Patency, RR, SpO2: stable & adequate BP & HR: stable & adequate Hydration State: stable & adequate Anesthetic Complications: no major complications apparent
[2019-05-27] MEDS ORDERED: SODIUM CHLORIDE 0.9% 1000ML 1,000 ML IV SCH (14:37)
[2019-05-27] MEDS ORDERED: OXYCODONE/ACETAMINOPHEN 5mg/325mg TAB PO PRN (14:37)
[2019-05-27] MEDS ORDERED: MAGNESIUM HYDROXIDE SUSP 30 ML UDC PO PRN (14:37)
[2019-05-27] MEDS ORDERED: PHARMACY GLYCEMIC MGMT CONSULT SCH (14:56)
--- NOTE | 2019-05-27 15:11 | Pharmacy Report ---
Glycemic Control Consultation - Date of Service May 27, 2019 - Scope Scope: Glycemic Pharmacist consulted by Ki Byrd PA-C on 05/27/19 for glycemic control and to write orders per [facility] inpatient glycemic control protocol - Objective Weight: 73 kg Accuchecks BSG (last 24hrs): 05/27/19 05/27/19 10:21 13:43 POC Glucose 83 94 - Recent Pertinent Medications Outpatient Anti-diabetic Regimen: * Lantus 16 units HS * Metformin 500mg PO BID * A1c = 6.2 % 12/08/18 Risk Factors for Insulin Resistance: * Steroids: Prednisone 10mg PO daily- home medication * Infection: ancef pre and postop * Recent Surgery: s/p wound revision, lumbar spine * Diet: Type 2 DM - Assessment & Plan Assessment & Plan: ASSESSMENT: * 64 year old female s/p wound revision of lumbar spine. Type 2 diabetic well controlled per A1c in November, updated A1c ordered. * Euglycemic at this time, will give patient's home dose of Lantus, and place on scale to give lower dose for lower blood sugar to prevent hypoglycemia. * Pt is also maintained on oral antidiabetic agents as an outpatient * Oral agents are not recommended for inpatient use d/t drug interactions, changing PO intake, and difficulty titrating for acute hyper/hypoglycemia. ADA recommends re-initiating outpatient oral agents 1-2 days prior to discharge if/when appropriate if they were held on admission. Will wait to start Metformin until tomorrow with dinner. * Use bolus insulin to cover carbohydrates and any correctional insulin needed at this time. * ADA & AACE recommend a goal blood sugar range 140-180 mg/dl for the majority of critically ill & non-critically ill patients. However, more stringent targets may be selected in individual cases. Will utilize more stringent goal of 110-140mg/dl based on patient age & comorbidities. Additionally, tighter glycemic control is warranted to facilitate wound/infection healing. PLAN FOR INPATIENT GLYCEMIC CONTROL: * Holding outpatient oral diabetes medications * Metformin 500mg PO BID with meals starting with dinner tomorrow evening * Basal insulin * Lantus SQ HS * 10 units for BSG < 140mg/dl * 16 units for BSG 140mg/dl or greater * Bolus insulin * NovoLog per scale ACHS or Q6hrs while NPO * Goal Range: Low 110 mg/dL - High 140 mg/dL * Correction Factor: 40 mg/dL/unit * Nutritional / Prandial insulin per carb ratio of 1 unit per 15 grams CHO consumed * Please note that the plan above was derived based on current level of insulin resistance and hospital stress. These recommendations are appropriate for inpatient admission only. Plan of care upon discharge will need to be reassessed to avoid potential outpatient hypo/hyperglycemia. Thank you.
[2019-05-27] MEDS ORDERED: GLUCAGON FOR INJ 1 MG VIAL IM PRN (15:15)
[2019-05-27] MEDS ORDERED: GLUCOSE 10 TABS/TUBE PO PRN (15:15)
[2019-05-27] MEDS ORDERED: GLUCOSE 40% GEL 15 GM TUBE PO PRN (15:15)
[2019-05-27] MEDS ORDERED: CARBOHYDRATES FOR HYPOGLYCEMIA PO PRN (15:15)
[2019-05-27] MEDS ORDERED: DEXTROSE 50% 50 ML SYRINGE IV PRN (15:15)
[2019-05-27] MEDS: INSULIN ASPART 100 UNITS/ML 3 ML PEN SC SCH ×2 (18:36→21:23)
[2019-05-27] MEDS: ACETAMINOPHEN 1,000 MG/100 ML VIAL IV PRN (19:48)
--- NOTE | 2019-05-27 20:58 | Operative Report ---
DATE OF OPERATION: 05/27/2019 PREOPERATIVE DIAGNOSIS: Wound ulceration of lumbar spine wound. POSTOPERATIVE DIAGNOSES: Wound ulceration and small soft tissue abscess. SURGEON: Darrel Mane DO. DIRECTOR OF RELIGIOUS ACTIVITIES: Ki Byrd PA-C. COMPLICATIONS: Zero. PROCEDURE: I and D wound revision and evacuation of the walled off abscess. ESTIMATED BLOOD LOSS: 40 mL. COMPLICATIONS: Zero. DESCRIPTION OF PROCEDURE: The patient was marked in the preop holding area. A bridge note obtained, brought back to the operating room. A formal timeout taken. She was placed prone, prepped and draped sterile. We made a skin incision. She had a small ulceration, quickly we were able to evacuate some walled off abscess. I went up down and it was all really in the subcuticular area relatively superficial. It was not deep. We cleaned out any of the pus, we irrigated with about half liter of fluid. We also debrided the area. I placed a drain deep to the wound. I placed vancomycin powder as well, closed with 2-0 Vicryl and 3-0 nylon, activated the drain. Sterile dressings applied. The patient returned to PACU stable. No apparent complications. Sponge and needle count correct. I attest to the content of the Intraoperative Record and any orders documented therein. Any exception s are noted below.
[2019-05-27] MEDS ORDERED: GABAPENTIN 600 MG TAB PO SCH (21:00)
[2019-05-27] MEDS ORDERED: INSULIN GLARGINE SOLOSTAR 100 UNITS/ML 3 ML PEN SC SCH (21:00)
[2019-05-27] MEDS: CEFAZOLIN 2000MG 2,000 MG/15 ML SYR IV SCH (21:24)
[2019-05-27] MEDS: DOCUSATE SODIUM 100 MG CAP PO SCH (21:25)
[2019-05-28] MEDS: CEFAZOLIN 2000MG 2,000 MG/15 ML SYR IV SCH (04:04)
[2019-05-28] MEDS: ACETAMINOPHEN 1,000 MG/100 ML VIAL IV PRN (04:10)
[2019-05-28] MEDS ORDERED: LEVOTHYROXINE SODIUM 100 MCG TABLET PO SCH (06:30)
[2019-05-28 07:24] LABS: Estimated Average Glucose 146 mg/dl; Hemoglobin A1C 6.7 % (4.5-5.6)
[2019-05-28] MEDS: DOCUSATE SODIUM 100 MG CAP PO SCH (08:31)
[2019-05-28] MEDS: INSULIN ASPART 100 UNITS/ML 3 ML PEN SC SCH (08:36)
[2019-05-28] MEDS ORDERED: CHOLECALCIFEROL 1,000 UNITS TAB PO SCH (09:00)
[2019-05-28] MEDS ORDERED: MAGNESIUM OXIDE 400 MG TAB PO SCH (09:00)
[2019-05-28] MEDS ORDERED: FERROUS SULFATE 325 MG TAB PO SCH (09:00)
[2019-05-28] MEDS ORDERED: PANTOprazole 40 MG TAB PO SCH (09:00)
[2019-05-28] MEDS ORDERED: predniSONE 10 MG TABLET PO SCH (09:00)
[2019-05-28] MEDS ORDERED: LISINOPRIL 40 MG TAB PO SCH (09:00)
[2019-05-28] MEDS ORDERED: FOLIC ACID 1 MG TAB PO SCH (09:00)
[2019-05-28] MEDS ORDERED: METOPROLOL SUCC 50MG EXT REL TAB PO SCH (09:00)
[2019-05-28] MEDS ORDERED: FUROSEMIDE 20 MG TAB PO SCH (09:00)
--- NOTE | 2019-05-28 10:57 | Anesthesiology Progress Note ---
Date of Service May 28, 2019 Anesthesia Post Procedure Vital Signs Vital Signs: Temp Pulse Pulse Resp BP Pulse Ox 05/28/19 09:54 36.4 C L 96 H 16 173/91 H 97 05/28/19 07:56 36.4 C L 96 H 16 173/91 H 97 05/28/19 04:00 37.0 C 93 H 16 159/89 H 95 05/27/19 22:24 36.8 C 83 16 152/81 H 95 05/27/19 19:49 36.6 C 81 16 156/80 H 97 05/27/19 17:30 36.4 C L 81 16 141/89 H 99 05/27/19 16:30 36.8 C 85 16 130/76 96 05/27/19 15:30 36.4 C L 90 16 142/80 H 98 05/27/19 15:00 36.3 C L 89 16 133/76 100 05/27/19 14:30 36.5 C 95 H 16 145/78 H 98 05/27/19 14:20 96 H 12 136/65 100 05/27/19 14:10 36.7 C 98 H 15 148/77 H 100 05/27/19 14:00 98 H 12 154/79 H 100 05/27/19 13:50 101 H 12 149/83 H 97 05/27/19 13:40 36.7 C 104 H 16 158/81 H 99 Notes Mental Status: alert / awake / arousable and participated in evaluation Patient Amnestic to Procedure: Yes Pain: adequately controlled Airway Patency, RR, SpO2: stable & adequate BP & HR: stable & adequate Anesthetic Complications: no major complications apparent
--- NOTE | 2019-05-28 12:28 | Anesthesiology Progress Note ---
Date of Service May 28, 2019 Anesthesia Post Procedure Vital Signs Vital Signs: Temp Pulse Pulse Resp BP Pulse Ox 05/28/19 09:54 36.4 C L 96 H 16 173/91 H 97 05/28/19 07:56 36.4 C L 96 H 16 173/91 H 97 05/28/19 04:00 37.0 C 93 H 16 159/89 H 95 05/27/19 22:24 36.8 C 83 16 152/81 H 95 05/27/19 19:49 36.6 C 81 16 156/80 H 97 05/27/19 17:30 36.4 C L 81 16 141/89 H 99 05/27/19 16:30 36.8 C 85 16 130/76 96 05/27/19 15:30 36.4 C L 90 16 142/80 H 98 05/27/19 15:00 36.3 C L 89 16 133/76 100 05/27/19 14:30 36.5 C 95 H 16 145/78 H 98 05/27/19 14:20 96 H 12 136/65 100 05/27/19 14:10 36.7 C 98 H 15 148/77 H 100 05/27/19 14:00 98 H 12 154/79 H 100 05/27/19 13:50 101 H 12 149/83 H 97 05/27/19 13:40 36.7 C 104 H 16 158/81 H 99 Notes Mental Status: alert / awake / arousable Patient Amnestic to Procedure: Yes Nausea / Vomiting: adequately controlled Pain: adequately controlled Airway Patency, RR, SpO2: stable & adequate BP & HR: stable & adequate Hydration State: stable & adequate Anesthetic Complications: no major complications apparent and Pt Satisfied with anesthetic care
[2019-05-28] MEDS ORDERED: METFORMIN HCL 500 MG TAB PO SCH (17:00)
[2019-05-29] MEDS ORDERED: BISACODYL 5 MG TABEC PO PRN (06:00)
--- NOTE | 2019-06-03 12:52 | Coding Query ---
CODING CLARIFICATION Please provide further clarification regarding the abscess evacuation and debridement performed on this patient: ABSCESS: ( ) Incision was made for abscess evacuation ( ) Incision was not made for abscess evacuation ( ) Other, please clarify: DEBRIDEMENT: Instrument Used: ( ) Scissors ( ) Scalpel ( ) Curette ( ) Other (please specify): Depth of Debridement: ( ) Skin ( ) Skin and Subcutaneous Tissue ( ) Skin, Subcutaneous Tissue and Muscle ( ) Skin, Subcutaneous Tissue, Muscle and Bone ( ) Other (please specify): Please Specify the Size of Debridement in cm2: Thank you for your assistance, Merissa Johnson - Geographic Information Systems Analyst [facility]ij[facility]
--- NOTE | 2019-06-04 10:12 | Discharge Summary ---
Daniela was admitted to my service 24-hour observation, discharged home the next day. She had an uneventful 23-hour course. The wound was clean, dry, drain pulled and discharged home in improved stable condition.
--- NOTE | 2019-06-04 10:42 | Operative Report ---
DATE OF OPERATION: 05/27/2019 CODING QUERY The incision was not made for an abscess evacuation. It was actually made for a wound and incision scar revision. She had a little area of her skin that would not heal. Without draining, we did not know there was an abscess. The instruments used were scalpel, scissors primarily. It was skin and subcutaneous tissue. There was no muscle used, no bone used and as far as centimeters are concerned approximately 10 cm. I attest to the content of the Intraoperative Record and any orders documented therein. Any exception s are noted below.
== END 2019-05-28 10:29 | disposition home or self-care (01) ==
LOC: ASU 09:45 → 3E 09:45

== ENCOUNTER 2021-04-21 12:31 | Inpatient (IN) ==
[2021-04-21] MEDS ORDERED: OPTIRAY 320 125ml IV ONE (12:43)
[2021-04-21 13:01] LABS: Basophils # (auto) 0.05 K/uL (0-0.2); Basophils % (auto) 0.4 %; Eosinophils # (auto) 0.14 K/uL (0-0.5); Hematocrit (blood only) 39.2 % (37-47); Hemoglobin 12.4 g/dL (12.0-16.0); Immature Granulocytes # (auto) 0.13 K/uL (0.00-0.02); Lymphocytes # (auto) 1.11 K/uL (1.2-3.4); Lymphocytes % (auto) 8.3 %; Mean Corpuscular Hemoglobin 29.5 pg (25-34); Mean Corpuscular Hgb Conc 31.6 g/dL (32-36); Mean Corpuscular Volume 93.3 fL (80-100); Mean Platelet Volume 10.5 fL (7.4-10.4); Monocytes # (auto) 0.82 K/uL (0.11-0.59); Monocytes % (auto) 6.1 %; Neutrophils # (auto) 11.12 K/uL (1.4-6.5); Neutrophils % (auto) 83.2 %; Platelet Count 269 K/uL (130-400); RDW Coefficient of Variation 14.2 % (11.5-14.5); RDW Standard Deviation 48.3 fL (36.4-46.3); White Blood Count 13.37 K/uL (4.8-10.8)
--- NOTE | 2021-04-21 13:08 | CT Scan Report ---
CT head/brain wo con CLINICAL HISTORY: Stroke Like Symptoms COMPARISON STUDY: April 15, 2019. TECHNIQUE: Axial CT of the brain is performed from the vertex to the skull base. IV contrast was not administered for this examination. A dose lowering technique was utilized adhering to the principles of ALARA. CT DOSE: FINDINGS: No intra or extra-axial mass lesions are visualized. There is no CT evidence of acute cortical infarc tion. There is no evidence of midline shift. There is no acute hemorrhage. No acute depressed calvar ial fractures are visualized. There are patchy white matter hypodensities likely on a small vessel basis. Mild diffuse atrophic changes of brain parenchyma are seen and associated with ex vacuo dilatation of ventricles. There is no evidence of acute sinusitis IMPRESSION: No acute intracranial hemorrhage, no midline shift or space occupying lesions. ACT 112: Negative or not required by law. The above report was generated using voice recognition software. It may contain grammatical, syntax o r spelling errors. Electronically signed by: Mini Lynne DO 04/21/2021 1:07 PM
[2021-04-21 13:12] LABS: INR 0.9 (0.9-1.1); Partial Thromboplastin Ratio 0.8; Partial Thromboplastin Time 21.4 Seconds (21.0-31.0); Prothrombin Time 9.4 Seconds (9.0-12.0)
[2021-04-21 13:21] LABS: Alanine Aminotransferase 43 U/L (12-78); Albumin Level 4.2 gm/dl (3.4-5.0); Aspartate Aminotransferase 19 U/L (15-37); BUN Creatinine Ratio 18.9 (10-20); Blood Urea Nitrogen 26 mg/dl (7-18); Calcium 9.4 mg/dl (8.5-10.1); Carbon Dioxide 30 mmol/L (21-32); Chloride 102 mmol/L (98-107); Creatinine Clr Calc Pharmacy 40.9 ml/min; Est GFR (African American) 45.3 ml/min; Est GFR (Non-African American) 39.1 ml/min; Glucose 189 mg/dl (70-99); Magnesium 2.3 mg/dl (1.8-2.4); Potassium 3.6 mmol/L (3.5-5.1); Sodium 137 mmol/L (136-145)
[2021-04-21 13:26] LABS: Alkaline Phosphatase 79 U/L (45-117); Bilirubin,Total 0.3 mg/dl (0.2-1); Globulin 4.3 gm/dl (2.5-4.0); Total Protein 8.5 gm/dl (6.4-8.2); Troponin I < 0.015 ng/ml (0-0.045)
[2021-04-21] MEDS ORDERED: LABETALOL HCL IV 5 MG/ML 20ML IV ONE ×2 (13:30)
[2021-04-21] MEDS ORDERED: TPA for Stroke IV STA (13:31)
[2021-04-21] MEDS ORDERED: LABETALOL HCL IV 5 MG/ML 20ML IV STA ×2 (13:32→15:26)
[2021-04-21 13:42] LABS: iSTAT Creatinine 1.4 mg/dl (0.6-1.3); iSTAT Hemoglobin 13.6 g/dl (12.0-16.0); iSTAT Ionized Calcium 1.19 mmol/l (1.12-1.32); iSTAT Potassium 3.8 mmol/L (3.3-5.0)
[2021-04-21] MEDS ORDERED: Alteplase Bolus 7.4 MG in SYRINGE 0 ML IV ONE (13:42)
[2021-04-21] MEDS ORDERED: PRIMARY PLUMSET, PE LINED TUBING, 113 IN, NON-DEHP (2260-0500) IV ONE (13:43)
[2021-04-21] MEDS ORDERED: ALTEPLASE, RECOMBINANT 66 MG in EMPTY BAG 0 ML IV ONE (13:43)
--- NOTE | 2021-04-21 13:44 | CT Scan Report ---
CT angio neck with con CLINICAL HISTORY: Stroke Like Symptoms COMPARISON STUDY: No previous studies for comparison. TECHNIQUE: CT angiography was performed from the aortic arch to the skull base. MIP imaging was perfo rmed. The patient was scanned in a dynamic helical fashion during intravenous administration of 118 c c of Optiray. A dose lowering technique was utilized adhering to the principles of ALARA. CT DOSE: 1085.54 mGy.cm Technique: CT angiogram of the carotid and vertebral arteries was obtained using intravenous contrast and 3-D reconstruction. NASCET criteria was utilized. Findings: Mild atherosclerotic involvement of bilateral carotid involvement. Heavily calcified plaque s are seen within proximal aspect of the left internal carotid artery and associated with 50-69% sten osis (6/239). Right ICA is patent throughout its course. Distal aspect of the left ICA is patent. Proximal and midportion of the right and left vertebral arteries are normally opacified and patent. E ccentric calcified plaque is seen within V4 segment of the right vertebral artery and shows no eviden ce of hemodynamically significant stenosis. Heavily calcified plaque is seen within V4 segment of the left vertebral artery associated with appro ximately 90% stenosis however evaluation is limited due to blooming artifact from heavily calcified p laque (6/303) There is no evidence of vertebral dissection. Partial opacification of the right maxillary sinus with osseous remodeling of its wall is seen and mo st likely represent chronic sinusitis. IMPRESSION: 1. Atherosclerotic involvement of bilateral carotid and vertebral arteries. Approximately 90% stenos is within V4 segment of the left vertebral artery. Results will be called to emergency Department. 2. 50-69% stenosis within proximal aspect of the left internal carotid artery. 3. Sinusitis. ACT 112: Negative or not required by law. The above report was generated using voice recognition software. It may contain grammatical, syntax o r spelling errors. Electronically signed by: Mini Lynne DO 04/21/2021 1:43 PM
[2021-04-21] MEDS ORDERED: No Aspirin within 24 hrs of TPA for Stroke PO SCH (13:45)
--- NOTE | 2021-04-21 13:49 | CT Scan Report ---
CT angio head w con CLINICAL HISTORY: Stroke Like Symptoms TECHNIQUE: CT angiography of the head was performed in a dynamic helical fashion during intravenous a dministration of 118 cc of Optiray. MIP imaging was performed. A dose lowering technique was utilized adhering to the principles of ALARA. CT DOSE: COMPARISON STUDY: No previous studies for comparison. FINDINGS: Minimal atherosclerotic involvement of distal portion of bilateral ICA seen without hemodynamically s ignificant stenosis. Bilateral MCA and RU are patent as well as right and left anterior communicating arteries. Basilar artery is normal in caliber and patent. Right posterior cerebral artery is normally opacified throughout its course. There is partial origin of the left posterior cerebral artery which is normally opacified thro ughout its course. IMPRESSION: No evidence of focal occlusion, significant stenosis or aneurysmal dilatation of intracranial arterie s as detailed above. ACT 112: Negative or not required by law. The above report was generated using voice recognition software. It may contain grammatical, syntax o r spelling errors. Electronically signed by: Mini Lynne DO 04/21/2021 1:48 PM
--- NOTE | 2021-04-21 13:49 | Emergency Department Note ---
History of Present Illness General Chief complaint: Weakness Stated complaint: R SIDED WEAKNESS Time Seen by Provider: 04/21/21 12:39 History of Present Illness Provider complaint: Difficulties walking face numbness changes in vision Onset (ago): minute(s) (99; symptoms began at 1100) Location: eyes Current Pain Intensity: 0 Associated symptoms: + weakness; no confusion, no chest pain, no cough, no diaphoresis, no fever/chills, no headaches, no nausea/vomiting, no rash, no seizure and no shortness of breath 66-year-old female presents emergency department for numbness in the face, changes in vision and difficulties walking. Patient reports her symptoms began at 1100 when she was cleaning her bathroom. She also reports some difficulty speaking. Patient reports she is having difficulty seeing things out of her eyes. She denies any recent falls or traumas. She denies any exposure to any toxic chemicals or fumes. Patient denies any fevers. No blood thinners. Home Medications Medication Instructions Recorded Confirmed Type cholecalciferol (vitamin D3) 1,000 unit PO QAM 10/26/18 03/28/21 History [Vitamin D3] ferrous sulfate [Feosol] 325 mg PO QAM 10/26/18 03/28/21 History magnesium 250 mg PO QAM 10/26/18 03/28/21 History acetaminophen [Tylenol Extra 1,000 mg PO Q6H PRN 12/24/18 03/28/21 History Strength] blood-glucose meter #1 ea 12/03/19 03/28/21 Rx blood sugar diagnostic #200 ea 12/08/19 03/28/21 Rx lisinopril 40 mg tablet 40 mg PO QAM #90 tab 05/16/20 04/21/21 Rx omeprazole 20 mg capsule,delayed 20 mg PO QAM #90 cap 06/08/20 04/21/21 Rx release levothyroxine 100 mcg tablet 100 mcg PO QAM #90 tab 08/23/20 04/21/21 Rx metoprolol succinate 50 mg 100 mg PO QAM #60 tab 11/15/20 04/21/21 Rx tablet,extended release 24 hr cyclobenzaprine 10 mg PO DAILY 04/21/21 04/21/21 History prednisone 5 mg PO DAILY 04/21/21 04/21/21 History Allergies Allergy/AdvReac Type Severity Reaction Status Date / Time nitrofurantoin Allergy Severe HEADACHE Verified 04/21/21 13:00 tetracycline Allergy Severe RASH ON Verified 04/21/21 13:00 FACE Xzegfue-Jqi-Btm Reductase AdvReac Intermediate LE edema Verified 04/21/21 13:00 Inhibitor oxycodone AdvReac Drowsy Verified 04/21/21 13:00 Past Med/Surg History Medical History (Updated 04/21/21 @ 17:36 by Jenni Henry MD) Bilateral leg edema Colitis History of campylobacteriosis 04/2019 ([facility]) s/p antibiotics treatment History of MRSA infection lumbar surgical incision s/p vanco/ceftriaxone/bactrim per 04/2019 [facility] discharge summary Lower GI bleed Lumbar radiculopathy Nonhealing surgical wound Spinal stenosis Stage 3b chronic kidney disease Tachycardia Surgical History History of back surgery History of x2 History of hysterectomy total History of total left knee replacement Hx of tonsillectomy Status post laminectomy with spinal fusion L2-L5 laminectomy/fusion: 12/24/18: Grade view 1, MAC#3, ETT 7.0 Family History Father Diabetes Lung cancer Cancer Hypertension Mother Diabetes Brain tumor Cancer Hypertension Malignant neoplasm of brain Aunt Breast cancer Denies family history of Ovarian cancer Prostate cancer Myocardial infarction Colorectal cancer Social History Smoking Status: Never smoker Second Hand Exposure: No; Hx Alcohol Use: Yes Alcohol type: beer and wine Alcohol Intake Frequency: 2-4 x/Month Hx Substance Use: No Preferred Language: Danish Communication Ability: Effective Visual Impairment: Limited Hearing Ability: Normal Electrical Electronics Technician Required: No Beliefs That Will Affect Care: None marital status: Current Living Situation: Spouse current occupational status: retired How many Children do You have: 2 other: 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 Feels Safe at Home: Yes Childhood Exposure to Second-Hand Smoke: Yes caffeine: Yes Dental Care, Regularly: Yes Physical Activity Frequency: 5-6 Times per Week Physical Activity Frequency Comment: gym Seatbelt Use: always Sunscreen Use: Yes Do you think of yourself as: straight/heterosexual Assistive Devices: Glasses Review of Systems A total of 10 systems reviewed and were otherwise negative Physical Exam Vital Signs Vital Signs - 24 hr 04/21/21 12:33 04/21/21 12:45 04/21/21 13:07 Temperature 36.4 C L Temperature Source Oral Pulse Rate 80 81 96 H Pulse Rate [Apical] Pulse Rate from SpO2 Sensor 94 H Respiratory Rate 14 17 Respiratory Effort / Characteristics Non-Labored Spontaneous Respiratory Depth Normal Blood Pressure 176/100 H Blood Pressure [Right Arm] Blood Pressure Mean 125 Blood Pressure Mean [Right Arm] Pulse Oximetry 98 95 Oxygen Delivery Method Room Air Sepsis New/Unexplained Change in Mental Status No Sepsis Action Taken by Nursing No Action Required 04/21/21 13:30 04/21/21 13:47 04/21/21 13:53 Temperature Temperature Source Pulse Rate 87 81 Pulse Rate [Apical] 83 Pulse Rate from SpO2 Sensor 82 Respiratory Rate 18 Respiratory Effort / Characteristics Respiratory Depth Blood Pressure 180/103 H Blood Pressure [Right Arm] 158/91 H Blood Pressure Mean 128 Blood Pressure Mean [Right Arm] 113 Pulse Oximetry 95 98 Oxygen Delivery Method Room Air Sepsis New/Unexplained Change in Mental Status Sepsis Action Taken by Nursing 04/21/21 14:08 04/21/21 14:24 04/21/21 14:39 Temperature 36.9 C Temperature Source Oral Pulse Rate Pulse Rate [Apical] 90 86 80 Pulse Rate from SpO2 Sensor Respiratory Rate 18 18 18 Respiratory Effort / Characteristics Respiratory Depth Blood Pressure Blood Pressure [Right Arm] 168/97 H 174/96 H 152/83 H Blood Pressure Mean Blood Pressure Mean [Right Arm] 120 122 106 Pulse Oximetry 98 99 99 Oxygen Delivery Method Room Air Room Air Room Air Sepsis New/Unexplained Change in Mental Status Sepsis Action Taken by Nursing Physical Exam GENERAL: She is oriented to person, place, and time. She appears well-developed and well-nourished. She does not appear distressed. HENT: Exam performed. -Head: Normocephalic and atraumatic. -Right Ear: External ear normal. No mastoid tenderness. -Left Ear: External ear normal. No mastoid tenderness. -Mouth/Throat: The oropharynx is clear and moist. No trismus in the jaw. No dental abscesses or uvula swelling. No oropharyngeal exudate or tonsillar abscesses. EYES: Patient's right eye is deviated to the right. Patient is unable to move her eyes horizontally. Pupils are 2 mm and reactive. NECK: Normal range of motion. Neck supple. No JVD present. No spinous process tenderness present. No carotid bruit present. No rigidity. No tracheal deviation and normal range of motion present. No Brudzinski's sign and no Kernig's sign noted. CV: Normal rate, regular rhythm, normal heart sounds and intact distal pulses. There is no peripheral edema. Palpable radial pulses bue. PULM/CHEST: Effort normal and breath sounds normal. No respiratory distress. No stridor. She has no wheezes. She has no rales. -Chest Wall: She exhibits no tenderness. ABD: The abdomen is soft. Bowel sounds are normal. She has no distension. No mass is present. There is no tenderness. There is no rebound, no guarding, no Caraballo's sign and no tenderness at McBurney's point. Rovsig negative MUSC/SKEL: Normal range of motion. There is no peripheral edema, tenderness or deformity. LYMPH: No cervical adenopathy. NEURO: NIHSS: 5 (2:2, 3:3, 10:1) SKIN: Skin is warm and dry. She is not diaphoretic. Course Course 1239: The patient was evaluated in room B7. A complete history and physical exam was performed Cardiac monitoring: An order was placed for continuous cardiac monitoring. The monitor shows a rate of 80 with sinus rhythm Code stroke was called. Patient will be moved to the resuscitation bay in B1. 1254: Discussed case with Dr. Linares on-call [facility] who states that she will evaluate the patient. Patient's fcgab-wy-brdy creatinine is 1.4. Dr. Linares states it is okay to get the CT angios. 1338: There was some delay in administration due to the telestroke cart video capabilities. We were able to obtain the not working and the neurologist unable to visualize the patient's eyes back up telestroke cart and the neurologist was able to evaluate the patient with video and audio. She did recommend giving TPA. Risks and benefits were discussed about TPA with the patient and at bedside by myself and the neurologist. tPA bolus was given. [facility]: Discussed the angios with Dr. Zachary Mathew teleneurologjadiel. She states there is no intervention needed. 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 Discussed with Dr. Lucy viera any hospitalist will admit the patient to the ICU. 1420:Dr. Henry ICU notified of the patient. Administered Medications Potassium Chloride/Sodium Chloride (Normal Saline W/20 Meq Kcl) 20 meq in 1,000 mls @ 60 mls/hr IV .[id number] NASRA Stop: 05/21/21 17:29 Last Admin: 04/21/21 17:56 Dose: 60 mls/hr Documented by: [id number] Discontinued Medications Alteplase, Recombinant (Tpa For Stroke) 1 ea IV NOW STA; Protocol Stop: 04/21/21 13:32 Last Admin: 04/21/21 13:44 Dose: 1 ea Documented by: [id number] Alteplase, Recombinant 7.4 mg/ (Syringe) 7.4 mls @ 7.4 mls/min IV ONCE ONE Stop: 04/21/21 13:43 Last Admin: 04/21/21 13:37 Dose: 7.4 mls/min Documented by: [id number] Cosigned by: [id number] Alteplase, Recombinant 66 mg/ (EMPTY BAG) 66 mls @ 66 mls/hr IV ONCE ONE Stop: 04/21/21 13:44 Last Infusion: 04/21/21 14:42 Dose: 0 mls/hr Documented by: [id number] Cosigned by: [id number] Admin: 04/21/21 13:42 Dose: 66 mls/hr Documented by: [id number] Cosigned by: [id number] Ioversol (Optiray 320 125ml) 118 ml IV ONCE ONE Stop: 04/21/21 12:44 Last Admin: 04/21/21 12:43 Dose: 118 ml Documented by: [id number] Labetalol HCl (Labetalol Hcl Iv 5 Mg/Ml 20ml) Confirm Administered Dose 5 mg IV .STK-MED ONE Stop: 04/21/21 13:31 Last Admin: 04/21/21 13:44 Dose: Not Given Documented by: [id number] Labetalol HCl (Labetalol Hcl Iv 5 Mg/Ml 20ml) Confirm Administered Dose 5 mg IV .STK-MED ONE Stop: 04/21/21 13:31 Last Admin: 04/21/21 13:44 Dose: Not Given Documented by: [id number] Labetalol HCl (Labetalol Hcl Iv 5 Mg/Ml 20ml) 10 mg IV NOW STA Stop: 04/21/21 13:33 Last Admin: 04/21/21 13:42 Dose: 10 mg Documented by: [id number] Cosigned by: [id number] Labetalol HCl (Labetalol Hcl Iv 5 Mg/Ml 20ml) 10 mg IV NOW STA Stop: 04/21/21 15:27 Last Admin: 04/21/21 15:41 Dose: 10 mg Documented by: [id number] Cosigned by: [id number] Critical Care Time Critical Care Time: Yes Total Critical Care Time: 86 I have personally spent greater than 86 minutes of critical care time in the direct management of this patient. This includes bedside care, interpretation of diagnostic studies, and testing, discussion with consultants, patient, and family members, and other required patient management activities. This 86 minutes is in excess of all separately billable procedures. Medical Decision Making Laboratory Data Result diagrams: 04/21/21 11:46 04/21/21 17:35 Lab Results 04/21/21 04/21/21 04/21/21 Range/Units 11:46 11:46 11:46 WBC 13.37 H (4.8-10.8) K/uL RBC 4.20 (4.2-5.4) M/uL Hgb 12.4 (12.0-16.0) g/dL POC Hgb (12.0-16.0) g/dl Hct 39.2 (37-47) % POC Hct (37-47) % MCV 93.3 (80-100) fL MCH 29.5 (25-34) pg MCHC 31.6 L (32-36) g/dL RDW Std Deviation 48.3 H (36.4-46.3) fL RDW Coeff of [place]aya 14.2 (11.5-14.5) % Plt Count 269 (130-400) K/uL MPV 10.5 H (7.4-10.4) fL Immature Gran % (Auto) 1.0 % Neut % (Auto) 83.2 % Lymph % (Auto) 8.3 % [place] % (Auto) 6.1 % Eos % (Auto) 1.0 % Baso % (Auto) 0.4 % Neut # (Auto) 11.12 H (1.4-6.5) K/uL Lymph # (Auto) 1.11 L (1.2-3.4) K/uL [place] # (Auto) 0.82 H (0.11-0.59) K/uL Eos # (Auto) 0.14 (0-0.5) K/uL Baso # (Auto) 0.05 (0-0.2) K/uL Immature Gran # (Auto) 0.13 H (0.00-0.02) K/uL PT 9.4 (9.0-12.0) Seconds INR 0.9 (0.9-1.1) APTT 21.4 (21.0-31.0) Seconds PTT Ratio 0.8 POC Sodium (135-144) mmol/L Sodium 137 (136-145) mmol/L POC Potassium (3.3-5.0) mmol/L Potassium 3.6 (3.5-5.1) mmol/L POC Chloride (101-112) mmol/L Chloride 102 (98-107) mmol/L Carbon Dioxide 30 (21-32) mmol/L POC Total CO2 (24-31) mmol/L Anion Gap 5.0 (3-11) POC Anion Gap (16-25) mmol/L POC BUN (7-18) mg/dl BUN 26 H (7-18) mg/dl Creatinine 1.40 H (0.6-1.2) mg/dl POC Creatinine (0.6-1.3) mg/dl Est Cr Clr Drug Dosing 40.9 ml/min Est GFR ( Amer) 45.3 ml/min Est GFR (Non-Af Amer) 39.1 ml/min BUN/Creatinine Ratio 18.9 (10-20) Glucose 189 H (70-99) mg/dl POC Glucose (70-99) mg/dl POC Glucose (other) (70-99) mg/dl Calcium 9.4 (8.5-10.1) mg/dl POC Ioniz Calcium Mor (1.12-1.32) mmol/l Magnesium 2.3 (1.8-2.4) mg/dl Total Bilirubin 0.3 (0.2-1) mg/dl AST 19 (15-37) U/L ALT 43 (12-78) U/L Alkaline Phosphatase 79 (45-117) U/L Troponin I < 0.015 (0-0.045) ng/ml Total Protein 8.5 H (6.4-8.2) gm/dl Albumin 4.2 (3.4-5.0) gm/dl Globulin 4.3 H (2.5-4.0) gm/dl Albumin/Globulin Ratio 1.0 (0.9-2) COVID-19 Eval Order SARS-CoV-2 (PCR) (Negative) Blood Type Antibody Screen 04/21/21 04/21/21 04/21/21 Range/Units 12:52 12:54 12:54 WBC (4.8-10.8) K/uL RBC (4.2-5.4) M/uL Hgb (12.0-16.0) g/dL POC Hgb 13.6 (12.0-16.0) g/dl Hct (37-47) % POC Hct 40 (37-47) % MCV (80-100) fL MCH (25-34) pg MCHC (32-36) g/dL RDW Std Deviation (36.4-46.3) fL RDW Coeff of [place]aya (11.5-14.5) % Plt Count (130-400) K/uL MPV (7.4-10.4) fL Immature Gran % (Auto) % Neut % (Auto) % Lymph % (Auto) % [place] % (Auto) % Eos % (Auto) % Baso % (Auto) % Neut # (Auto) (1.4-6.5) K/uL Lymph # (Auto) (1.2-3.4) K/uL [place] # (Auto) (0.11-0.59) K/uL Eos # (Auto) (0-0.5) K/uL Baso # (Auto) (0-0.2) K/uL Immature Gran # (Auto) (0.00-0.02) K/uL PT (9.0-12.0) Seconds INR (0.9-1.1) APTT (21.0-31.0) Seconds PTT Ratio POC Sodium 139 (135-144) mmol/L Sodium (136-145) mmol/L POC Potassium 3.8 (3.3-5.0) mmol/L Potassium (3.5-5.1) mmol/L POC Chloride 99 L (101-112) mmol/L Chloride (98-107) mmol/L Carbon Dioxide (21-32) mmol/L POC Total CO2 26 (24-31) mmol/L Anion Gap (3-11) POC Anion Gap 19.0 (16-25) mmol/L POC BUN 28 H (7-18) mg/dl BUN (7-18) mg/dl Creatinine (0.6-1.2) mg/dl POC Creatinine 1.4 H (0.6-1.3) mg/dl Est Cr Clr Drug Dosing ml/min Est GFR ( Amer) ml/min Est GFR (Non-Af Amer) ml/min BUN/Creatinine Ratio (10-20) Glucose (70-99) mg/dl POC Glucose 221 H (70-99) mg/dl POC Glucose (other) 197 H (70-99) mg/dl Calcium (8.5-10.1) mg/dl POC Ioniz Calcium Mor 1.19 (1.12-1.32) mmol/l Magnesium (1.8-2.4) mg/dl Total Bilirubin (0.2-1) mg/dl AST (15-37) U/L ALT (12-78) U/L Alkaline Phosphatase (45-117) U/L Troponin I (0-0.045) ng/ml Total Protein (6.4-8.2) gm/dl Albumin (3.4-5.0) gm/dl Globulin (2.5-4.0) gm/dl Albumin/Globulin Ratio (0.9-2) COVID-19 Eval Order SARS-CoV-2 (PCR) (Negative) Blood Type A Positive Antibody Screen NEGATIVE 04/21/21 04/21/21 Range/Units 14:20 14:20 WBC (4.8-10.8) K/uL RBC (4.2-5.4) M/uL Hgb (12.0-16.0) g/dL POC Hgb (12.0-16.0) g/dl Hct (37-47) % POC Hct (37-47) % MCV (80-100) fL MCH (25-34) pg MCHC (32-36) g/dL RDW Std Deviation (36.4-46.3) fL RDW Coeff of [place]aya (11.5-14.5) % Plt Count (130-400) K/uL MPV (7.4-10.4) fL Immature Gran % (Auto) % Neut % (Auto) % Lymph % (Auto) % [place] % (Auto) % Eos % (Auto) % Baso % (Auto) % Neut # (Auto) (1.4-6.5) K/uL Lymph # (Auto) (1.2-3.4) K/uL [place] # (Auto) (0.11-0.59) K/uL Eos # (Auto) (0-0.5) K/uL Baso # (Auto) (0-0.2) K/uL Immature Gran # (Auto) (0.00-0.02) K/uL PT (9.0-12.0) Seconds INR (0.9-1.1) APTT (21.0-31.0) Seconds PTT Ratio POC Sodium (135-144) mmol/L Sodium (136-145) mmol/L POC Potassium (3.3-5.0) mmol/L Potassium (3.5-5.1) mmol/L POC Chloride (101-112) mmol/L Chloride (98-107) mmol/L Carbon Dioxide (21-32) mmol/L POC Total CO2 (24-31) mmol/L Anion Gap (3-11) POC Anion Gap (16-25) mmol/L POC BUN (7-18) mg/dl BUN (7-18) mg/dl Creatinine (0.6-1.2) mg/dl POC Creatinine (0.6-1.3) mg/dl Est Cr Clr Drug Dosing ml/min Est GFR ( Amer) ml/min Est GFR (Non-Af Amer) ml/min BUN/Creatinine Ratio (10-20) Glucose (70-99) mg/dl POC Glucose (70-99) mg/dl POC Glucose (other) (70-99) mg/dl Calcium (8.5-10.1) mg/dl POC Ioniz Calcium Mor (1.12-1.32) mmol/l Magnesium (1.8-2.4) mg/dl Total Bilirubin (0.2-1) mg/dl AST (15-37) U/L ALT (12-78) U/L Alkaline Phosphatase (45-117) U/L Troponin I (0-0.045) ng/ml Total Protein (6.4-8.2) gm/dl Albumin (3.4-5.0) gm/dl Globulin (2.5-4.0) gm/dl Albumin/Globulin Ratio (0.9-2) COVID-19 Eval Order Covid19 at [facility] SARS-CoV-2 (PCR) NEGATIVE (Negative) Blood Type Antibody Screen Imaging Data Radiologist's Impression: Head CT 04/21/21 12:39 CT head/brain wo con CLINICAL HISTORY: Stroke Like Symptoms COMPARISON STUDY: April 15, 2019. TECHNIQUE: Axial CT of the brain is performed from the vertex to the skull base. IV contrast was not administered for this examination. A dose lowering technique was utilized adhering to the principles of ALARA. CT DOSE: FINDINGS: No intra or extra-axial mass lesions are visualized. There is no CT evidence of acute cortical infarction. There is no evidence of midline shift. There is no acute hemorrhage. No acute depressed calvarial fractures are visualized. There are patchy white matter hypodensities likely on a small vessel basis. Mild diffuse atrophic changes of brain parenchyma are seen and associated with ex vacuo dilatation of ventricles. There is no evidence of acute sinusitis IMPRESSION: No acute intracranial hemorrhage, no midline shift or space occupying lesions. ACT 112: Negative or not required by law. The above report was generated using voice recognition software. It may contain grammatical, syntax or spelling errors. Electronically signed by: Mini Lynne DO 04/21/2021 1:07 PM Head CTA 04/21/21 12:39 CT angio head w con CLINICAL HISTORY: Stroke Like Symptoms TECHNIQUE: CT angiography of the head was performed in a dynamic helical fashion during intravenous administration of 118 cc of Optiray. MIP imaging was performed. A dose lowering technique was utilized adhering to the principles of ALARA. CT DOSE: COMPARISON STUDY: No previous studies for comparison. FINDINGS: Minimal atherosclerotic involvement of distal portion of bilateral ICA seen without hemodynamically significant stenosis. Bilateral MCA and RU are patent as well as right and left anterior communicating arteries. Basilar artery is normal in caliber and patent. Right posterior cerebral artery is normally opacified throughout its course. There is partial origin of the left posterior cerebral artery which is normally opacified throughout its course. IMPRESSION: No evidence of focal occlusion, significant stenosis or aneurysmal dilatation of intracranial arteries as detailed above. ACT 112: Negative or not required by law. The above report was generated using voice recognition software. It may contain grammatical, syntax or spelling errors. Electronically signed by: Mini Lynne DO 04/21/2021 1:48 PM Neck CTA 04/21/21 12:39 CT angio neck with con CLINICAL HISTORY: Stroke Like Symptoms COMPARISON STUDY: No previous studies for comparison. TECHNIQUE: CT angiography was performed from the aortic arch to the skull base. MIP imaging was performed. The patient was scanned in a dynamic helical fashion during intravenous administration of 118 cc of Optiray. A dose lowering technique was utilized adhering to the principles of ALARA. CT DOSE: 1085.54 mGy.cm Technique: CT angiogram of the carotid and vertebral arteries was obtained using intravenous contrast and 3-D reconstruction. NASCET criteria was utilized. Findings: Mild atherosclerotic involvement of bilateral carotid involvement. Heavily calcified plaques are seen within proximal aspect of the left internal carotid artery and associated with 50-69% stenosis (6/239). Right ICA is patent throughout its course. Distal aspect of the left ICA is patent. Proximal and midportion of the right and left vertebral arteries are normally opacified and patent. Eccentric calcified plaque is seen within V4 segment of the right vertebral artery and shows no evidence of hemodynamically significant stenosis. Heavily calcified plaque is seen within V4 segment of the left vertebral artery associated with approximately 90% stenosis however evaluation is limited due to blooming artifact from heavily calcified plaque (6/303) There is no evidence of vertebral dissection. Partial opacification of the right maxillary sinus with osseous remodeling of its wall is seen and most likely represent chronic sinusitis. IMPRESSION: 1. Atherosclerotic involvement of bilateral carotid and vertebral arteries. Approximately 90% stenosis within V4 segment of the left vertebral artery. Results will be called to emergency Department. 2. 50-69% stenosis within proximal aspect of the left internal carotid artery. 3. Sinusitis. ACT 112: Negative or not required by law. The above report was generated using voice recognition software. It may contain grammatical, syntax or spelling errors. Electronically signed by: Mini Lynne DO 04/21/2021 1:43 PM Brain MRI 04/21/21 14:12 MRI OF THE BRAIN WITHOUT CONTRAST CLINICAL HISTORY: cva COMPARISON STUDY: August 07, 2009 FINDINGS: Sagittal T1, axial diffusion, proton density and T2 weighted axial, coronal F LAIR, and axial T1-weighted images were acquired. No intra or extra-axial mass lesions are visualized Punctate area of high signal on DWI sequence (series 4 image 5) shows mild drop signal on ACD map and slight increase signal on T2 FLAIR coronal sequence, represent punctate focus or restricted diffusion/ischemia. No other areas of restricted diffusion are seen. Mild diffuse atrophic changes of brain parenchyma associated with slight ventricular dilatation of ventricles. Proton density T2-weighted and FLAIR images reveal patchy areas of increase signal within periventricular and subcortical white matter likely representing chronic small vessel ischemia. There are no abnormal flow voids. Fluid signal is seen within the right maxillary sinus likely representing sinusitis. IMPRESSION: 1. Questionable punctate focus of restricted diffusion within left cerebellar lobe which also shows slightly high T2 FLAIR signal might represent developing lacunar infarct or artifact. Findings will be called to emergency Department. 2. Sinusitis. 3. Chronic small vessel ischemia. 4. Atrophic changes of brain parenchyma associated with ex vacuo dilatation of ventricles. ACT 112: Negative or not required by law. The above report was generated using voice recognition software. It may contain grammatical, syntax or spelling errors. Electronically signed by: Mini Lynne DO 04/21/2021 4:36 PM ECG Data Indication: + weakness Rate (beats per minute): 92 Rhythm: + normal sinus ECG Intervals/blocks: + Normal RI and + Normal QT-c ECG ST segments: + Normal ST segments Additional Comments: QRS 70 MDM Narrative 1239: The patient was evaluated in room B7. A complete history and physical exam was performed Cardiac monitoring: An order was placed for continuous cardiac monitoring. The monitor shows a rate of 80 with sinus rhythm Code stroke was called. Patient will be moved to the resuscitation bay in B1. 1254: Discussed case with Dr. Linares on-call [place] [facility] who states that she will evaluate the patient. Patient's cfpgd-vg-[id number] creatinine is 1.4. Dr. Linares states it is okay to get the CT angios. 1338: There was some delay in administration due to the telestroke cart video capabilities. We were able to obtain the not working and the neurologist unable to visualize the patient's eyes back up telestroke cart and the neurologist was able to evaluate the patient with video and audio. She did recommend giving TPA. Risks and benefits were discussed about TPA with the patient and at bedside by myself and the neurologist. tPA bolus was given. [facility]6: Discussed the angios with Dr. Zachary Mathew teleneurology. She states there is no intervention needed. 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 D[facility] with Dr[facility] hospitalist will admit the patient to the ICU. 1420:Dr. Henry ICU notified of the patient. Impression & Plan Acute CVA (cerebrovascular accident) Discharge Plan Visit Data Chief Complaint: Weakness Stated Complaint: R SIDED WEAKNESS ED Provider: Reyes Arguello Discharge Problem: Acute CVA (cerebrovascular accident) Patient Disposition: Admitted As Inpatient Discharge Instructions Interventions: ED Discharge Assessment Last Done: 04/21/21 16:14
--- NOTE | 2021-04-21 14:45 | History & Physical Report ---
Date of Service April 21, 2021 Assessment & Plan (1) Acute CVA (cerebrovascular accident): Acute CVA/90 percent stenosis of V4 segment of left vertebral artery/50 to 69% proximal LICA stenosis/status post TPA in ED- Admit to intensive care unit NPO, including medications, until passes dysphagia screen, and then will resume all oral medications as needed Stroke with TPA [facility] 24-hour protocol order set Consult PT/OT/speech therapy/neurology Consult kitchen assistant Dr. Henry Present on Admission?: Yes (2) Stenosis of left vertebral artery: See above Present on Admission?: Yes (3) Stenosis of left internal carotid artery: See above Present on Admission?: Yes (4) Received intravenous tissue plasminogen activator (tPA) in emergency department: See above Present on Admission?: Yes (5) Stage 3b chronic kidney disease: Creatinine 1.4 upon admission, with usual range 1.39-1.69 Present on Admission?: Yes (6) Immunosuppression due to drug therapy: Hold oral prednisone 5 mg daily. Placed on stress dose hydrocortisone 100 mg IV every 8 hours Present on Admission?: Yes (7) Hypertension: Permissive hypertension, with IV labetalol as needed per protocol Present on Admission?: Yes (8) Hypothyroidism: Resume levothyroxine 100 mcg daily once clears dysphagia screen Present on Admission?: Yes (9) Hyperlipidemia: We will start high-dose statin atorvastatin 80 mg daily once clears dysphagia screen Present on Admission?: Yes (10) Diabetes mellitus type II, controlled: ICU hyperglycemic protocol Present on Admission?: Yes (11) Rheumatoid arthritis: Holding oral prednisone. Stress dose hydrocortisone as noted Present on Admission?: Yes (12) Admitted to intensive care unit: History of Present Illness Chief Complaint: The patient presents to the emergency department with complaint of difficulty walking, facial numbness, and blurred vision symptoms that began around 11:00 AM, 99 minutes prior to ED assessment Primary Care Provider: Corby Arzola MD The patient is a 66-year-old female with a past medical history including MRSA infection, traumatic open wound of left lower leg, stage IIIb CKD, chronic anemia, immunosuppression due to drug therapy, hypertension, hypothyroidism, hyperlipidemia, diabetes mellitus type 2, peripheral neuropathy, vitamin D deficiency, recurrent UTI, polymorphic light eruption, microscopic hematuria and rheumatoid arthritis. She presents with symptoms as noted above. Patient was initially assessed as a stroke alert by the ED, and after negative CT of head was obtained, stroke alert consult with [facility] advised TPA, which was administered in the ED Allergies Allergy/AdvReac Type Severity Reaction Status Date / Time nitrofurantoin Allergy Severe HEADACHE Verified 04/21/21 13:00 tetracycline Allergy Severe RASH ON Verified 04/21/21 13:00 FACE [id number] Reductase AdvReac Intermediate LE edema Verified 04/21/21 13:00 Inhibitor oxycodone AdvReac Drowsy Verified 04/21/21 13:00 Home Medications Medication Instructions Recorded Confirmed Type cholecalciferol (vitamin D3) 1,000 unit PO QAM 10/26/18 03/28/21 History [Vitamin D3] ferrous sulfate [Feosol] 325 mg PO QAM 10/26/18 03/28/21 History magnesium 250 mg PO QAM 10/26/18 03/28/21 History acetaminophen [Tylenol Extra 1,000 mg PO Q6H PRN 12/24/18 03/28/21 History Strength] blood-glucose meter #1 ea 12/03/19 03/28/21 Rx blood sugar diagnostic #200 ea 12/08/19 03/28/21 Rx lisinopril 40 mg tablet 40 mg PO QAM #90 tab 05/16/20 04/21/21 Rx omeprazole 20 mg capsule,delayed 20 mg PO QAM #90 cap 06/08/20 04/21/21 Rx release levothyroxine 100 mcg tablet 100 mcg PO QAM #90 tab 08/23/20 04/21/21 Rx metoprolol succinate 50 mg 100 mg PO QAM #60 tab 11/15/20 04/21/21 Rx tablet,extended release 24 hr cyclobenzaprine 10 mg PO DAILY 04/21/21 04/21/21 History prednisone 5 mg PO DAILY 04/21/21 04/21/21 History Past Med/Surg History Medical History (Updated 04/21/21 @ 16:13 by Delta Linares MD) Bilateral leg edema Colitis History of campylobacteriosis 04/2019 ([facility]) s/p antibiotics treatment History of MRSA infection lumbar surgical incision s/p vanco/ceftriaxone/bactrim per 04/2019 [facility] discharge summary Lower GI bleed Lumbar radiculopathy Nonhealing surgical wound Spinal stenosis Stage 3b chronic kidney disease Tachycardia Surgical History History of back surgery History of x2 History of hysterectomy total History of total left knee replacement Hx of tonsillectomy Status post laminectomy with spinal fusion L2-L5 laminectomy/fusion: 12/24/18: Grade view 1, MAC#3, ETT 7.0 Family History Father Diabetes Lung cancer Cancer Hypertension Mother Diabetes Brain tumor Cancer Hypertension Malignant neoplasm of brain Aunt Breast cancer Denies family history of Ovarian cancer Prostate cancer Myocardial infarction Colorectal cancer Social History Smoking Status: Never smoker Second Hand Exposure: No; Hx Alcohol Use: Yes Alcohol type: beer and wine Alcohol Intake Frequency: 2-4 x/Month Hx Substance Use: No Preferred Language: Slovenian Communication Ability: Effective Visual Impairment: Limited Hearing Ability: Normal Compliance Advisor Required: No Beliefs That Will Affect Care: None marital status: Current Living Situation: Spouse current occupational status: retired How many Children do You have: 2 other: Previous medical staff director. Feels Safe at Home: Yes Childhood Exposure to Second-Hand Smoke: Yes caffeine: Yes Dental Care, Regularly: Yes Physical Activity Frequency: 5-6 Times per Week Physical Activity Frequency Comment: gym Seatbelt Use: always Sunscreen Use: Yes Do you think of yourself as: straight/heterosexual Assistive Devices: None Review of Systems Review of Systems: The patient denies chest pain, palpitations, shortness of breath, dyspnea on exertion, cough, lower extremity swelling, sore throat, fevers, chills, sweats, nausea, vomiting, diarrhea , constipation, abdominal pain, pelvic pain, blood in urine or stool, dysuria, urinary frequency or urgency, memory loss, loss of consciousness, rash, abnormal bruising or bleeding, generalized weakness, numbness or tingling in arms , generalized arthralgias or myalgias, back or neck pain, or night sweats. The review of systems is otherwise negative other than for that already noted above, and at least 10 systems have been reviewed. Physical Exam Physical Exam: The patient is awake, alert and oriented 3, well developed and well nourished, normocephalic and atraumatic, lying in bed and in no acute distress. HEENT--PERRL. Right exotropia. mucous membranes and oropharynx normal. Neck--supple. No JVD. No bruits. Thyroid normal, trachea midline, no adenopathy. Heart--normal S1 and S2. No murmurs, rubs or gallops. Lungs--clear bilaterally, no respiratory distress, no accessory muscle use. Abdomen--normal bowel sounds and soft. Nontender. Nondistended. Obese Extremities--no cyanosis or clubbing. No edema. There are good distal pulses b/l. Dermatologic--normal skin turgor, normal color, no abnormal lymph nodes, no rash. Neurologic--right exotropia. Decreased range of motion in all directions Rheumatologic--normal range of motion. Psychiatric--normal affect. Results & Data Results & Data ([facility]) Vital Signs (Past 12 Hours) Vital Signs Temp Pulse Pulse Resp BP BP Pulse Ox 04/21/21 14:39 80 18 152/83 H 99 04/21/21 14:24 98.4 F 86 18 174/96 H 99 04/21/21 14:08 90 18 168/97 H 98 04/21/21 13:53 83 18 158/91 H 98 04/21/21 13:47 81 95 04/21/21 13:30 87 180/103 H 04/21/21 13:07 96 H 95 04/21/21 12:45 81 17 04/21/21 12:33 97.5 F L 80 14 176/100 H 98 Laboratory Results Laboratory Results WBC 13.37 K/uL (4.8-10.8) H 04/21/21 11:46 RBC 4.20 M/uL (4.2-5.4) 04/21/21 11:46 Hgb 12.4 g/dL (12.0-16.0) 04/21/21 11:46 POC Hgb 13.6 g/dl (12.0-16.0) 04/21/21 12:54 Hct 39.2 % (37-47) 04/21/21 11:46 POC Hct 40 % (37-47) 04/21/21 12:54 MCV 93.3 fL (80-100) 04/21/21 11:46 MCH 29.5 pg (25-34) 04/21/21 11:46 MCHC 31.6 g/dL (32-36) L 04/21/21 11:46 RDW Std Deviation 48.3 fL (36.4-46.3) H 04/21/21 11:46 RDW Coeff of Sumaya 14.2 % (11.5-14.5) 04/21/21 11:46 Plt Count 269 K/uL (130-400) 04/21/21 11:46 MPV 10.5 fL (7.4-10.4) H 04/21/21 11:46 Immature Gran % (Auto) 1.0 % 04/21/21 11:46 Neut % (Auto) 83.2 % 04/21/21 11:46 Lymph % (Auto) 8.3 % 04/21/21 11:46 Coos % (Auto) 6.1 % 04/21/21 11:46 Eos % (Auto) 1.0 % 04/21/21 11:46 Baso % (Auto) 0.4 % 04/21/21 11:46 Neut # (Auto) 11.12 K/uL (1.4-6.5) H 04/21/21 11:46 Lymph # (Auto) 1.11 K/uL (1.2-3.4) L 04/21/21 11:46 Coos # (Auto) 0.82 K/uL (0.11-0.59) H 04/21/21 11:46 Eos # (Auto) 0.14 K/uL (0-0.5) 04/21/21 11:46 Baso # (Auto) 0.05 K/uL (0-0.2) 04/21/21 11:46 Immature Gran # (Auto) 0.13 K/uL (0.00-0.02) H 04/21/21 11:46 PT 9.4 Seconds (9.0-12.0) 04/21/21 11:46 INR 0.9 (0.9-1.1) 04/21/21 11:46 APTT 21.4 Seconds (21.0-31.0) 04/21/21 11:46 PTT Ratio 0.8 04/21/21 11:46 POC Sodium 139 mmol/L (135-144) 04/21/21 12:54 Sodium 137 mmol/L (136-145) 04/21/21 11:46 POC Potassium 3.8 mmol/L (3.3-5.0) 04/21/21 12:54 Potassium 3.6 mmol/L (3.5-5.1) 04/21/21 11:46 POC Chloride 99 mmol/L (101-112) L 04/21/21 12:54 Chloride 102 mmol/L (98-107) 04/21/21 11:46 Carbon Dioxide 30 mmol/L (21-32) 04/21/21 11:46 POC Total CO2 26 mmol/L (24-31) 04/21/21 12:54 Anion Gap 5.0 (3-11) 04/21/21 11:46 POC Anion Gap 19.0 mmol/L (16-25) 04/21/21 12:54 POC BUN 28 mg/dl (7-18) H 04/21/21 12:54 BUN 26 mg/dl (7-18) H 04/21/21 11:46 Creatinine 1.40 mg/dl (0.6-1.2) H 04/21/21 11:46 POC Creatinine 1.4 mg/dl (0.6-1.3) H 04/21/21 12:54 Est Cr Clr Drug Dosing 40.9 ml/min 04/21/21 11:46 Est GFR ( Amer) 45.3 ml/min 04/21/21 11:46 Est GFR (Non-Af Amer) 39.1 ml/min 04/21/21 11:46 BUN/Creatinine Ratio 18.9 (10-20) 04/21/21 11:46 Glucose 189 mg/dl (70-99) H 04/21/21 11:46 POC Glucose 221 mg/dl (70-99) H 04/21/21 12:54 POC Glucose (other) 197 mg/dl (70-99) H 04/21/21 12:54 Calcium 9.4 mg/dl (8.5-10.1) 04/21/21 11:46 POC Ioniz Calcium Mor 1.19 mmol/l (1.12-1.32) 04/21/21 12:54 Magnesium 2.3 mg/dl (1.8-2.4) 04/21/21 11:46 Total Bilirubin 0.3 mg/dl (0.2-1) 04/21/21 11:46 AST 19 U/L (15-37) 04/21/21 11:46 ALT 43 U/L (12-78) 04/21/21 11:46 Alkaline Phosphatase 79 U/L (45-117) 04/21/21 11:46 Troponin I < 0.015 ng/ml (0-0.045) 04/21/21 11:46 Total Protein 8.5 gm/dl (6.4-8.2) H 04/21/21 11:46 Albumin 4.2 gm/dl (3.4-5.0) 04/21/21 11:46 Globulin 4.3 gm/dl (2.5-4.0) H 04/21/21 11:46 Albumin/Globulin Ratio 1.0 (0.9-2) 04/21/21 11:46 COVID-19 Eval Order Covid19 at [facility] 04/21/21 14:20 SARS-CoV-2 (PCR) NEGATIVE (Negative) 04/21/21 14:20 Blood Type A Positive 04/21/21 12:52 Antibody Screen NEGATIVE 04/21/21 12:[address] 04/21/21 12:39 CT head/brain wo con CLINICAL HISTORY: Stroke Like Symptoms COMPARISON STUDY: April 15, 2019. TECHNIQUE: Axial CT of the brain is performed from the vertex to the skull base. IV contrast was not administered for this examination. A dose lowering technique was utilized adhering to the principles of ALARA. CT DOSE: FINDINGS: No intra or extra-axial mass lesions are visualized. There is no CT evidence of acute cortical infarction. There is no evidence of midline shift. There is no acute hemorrhage. No acute depressed calvarial fractures are visualized. There are patchy white matter hypodensities likely on a small vessel basis. Mild diffuse atrophic changes of brain parenchyma are seen and associated with ex vacuo dilatation of ventricles. There is no evidence of acute sinusitis IMPRESSION: No acute intracranial hemorrhage, no midline shift or space occupying lesions. ACT 112: Negative or not required by law. The above report was generated using voice recognition software. It may contain grammatical, syntax or spelling errors. Electronically signed by: Mini Lynne DO 04/21/2021 1:07 PM Head CTA 04/21/21 12:39 CT angio head w con CLINICAL HISTORY: Stroke Like Symptoms TECHNIQUE: CT angiography of the head was performed in a dynamic helical fashion during intravenous administration of 118 cc of Optiray. MIP imaging was performed. A dose lowering technique was utilized adhering to the principles of ALARA. CT DOSE: COMPARISON STUDY: No previous studies for comparison. FINDINGS: Minimal atherosclerotic involvement of distal portion of bilateral ICA seen without hemodynamically significant stenosis. Bilateral MCA and RU are patent as well as right and left anterior communicating arteries. Basilar artery is normal in caliber and patent. Right posterior cerebral artery is normally opacified throughout its course. There is partial origin of the left posterior cerebral artery which is normally opacified throughout its course. IMPRESSION: No evidence of focal occlusion, significant stenosis or aneurysmal dilatation of intracranial arteries as detailed above. ACT 112: Negative or not required by law. The above report was generated using voice recognition software. It may contain grammatical, syntax or spelling errors. Electronically signed by: Mini Lynne DO 04/21/2021 1:48 PM Neck CTA 04/21/21 12:39 CT angio neck with con CLINICAL HISTORY: Stroke Like Symptoms COMPARISON STUDY: No previous studies for comparison. TECHNIQUE: CT angiography was performed from the aortic arch to the skull base. MIP imaging was performed. The patient was scanned in a dynamic helical fashion during intravenous administration of 118 cc of Optiray. A dose lowering technique was utilized adhering to the principles of ALARA. CT DOSE: 1085.54 mGy.cm Technique: CT angiogram of the carotid and vertebral arteries was obtained using intravenous contrast and 3-D reconstruction. NASCET criteria was utilized. Findings: Mild atherosclerotic involvement of bilateral carotid involvement. Heavily calcified plaques are seen within proximal aspect of the left internal carotid artery and associated with 50-69% stenosis (6/239). Right ICA is patent throughout its course. Distal aspect of the left ICA is patent. Proximal and midportion of the right and left vertebral arteries are normally opacified and patent. Eccentric calcified plaque is seen within V4 segment of the right vertebral artery and shows no evidence of hemodynamically significant stenosis. Heavily calcified plaque is seen within V4 segment of the left vertebral artery associated with approximately 90% stenosis however evaluation is limited due to blooming artifact from heavily calcified plaque (6/303) There is no evidence of vertebral dissection. Partial opacification of the right maxillary sinus with osseous remodeling of its wall is seen and most likely represent chronic sinusitis. IMPRESSION: 1. Atherosclerotic involvement of bilateral carotid and vertebral arteries. Approximately 90% stenosis within V4 segment of the left vertebral artery. Results will be called to emergency Department. 2. 50-69% stenosis within proximal aspect of the left internal carotid artery. 3. Sinusitis. ACT 112: Negative or not required by law. The above report was generated using voice recognition software. It may contain grammatical, syntax or spelling errors. Electronically signed by: Mini Lynne DO 04/21/2021 1:43 PM Code Status & VTE Plan Code Status Full code VTE Prophylaxis Plan VTE Prophylaxis will be ordered: Yes Critical Care Time Critical Care Time: Yes Total Critical Care Time: 45 PG Care Time/CCT Total # of Minutes Spent Total Time Spent with Patient: Total time spent is greater than 50% in coordination of care (as documented) at patient's floor/unit and/or counseling patient: Critical Care Time: Yes Total Critical Care Time: 45 Coding Level of Care Code 04163 Initial Inpt Care Lvl 3 Diagnoses Acute CVA (cerebrovascular accident) I63.9 Stenosis of left vertebral artery I65.02 Stenosis of left internal carotid artery I65.22 Received intravenous tissue plasminogen activator (tPA) in emergency department Z92.82 Stage 3b chronic kidney disease N18.3 Immunosuppression due to drug therapy Z79.899 Hypertension I10 Hypertension type: essential hypertension Hypothyroidism E03.9 Hypothyroidism type: unspecified Hyperlipidemia E78.5 Diabetes mellitus type II, controlled E11.9; Z79.4 Diabetes mellitus complication status: without complication Diabetes mellitus terminologist insulin use: with terminologist use Rheumatoid arthritis M06.9 Rheumatoid arthritis location: multiple sites Rheumatoid factor presence: unspecified presence Admitted to intensive care unit Z78.9 Additional Codes Critical Care Time - Critical Care Time: Yes ([id number]) Time Spent (min) 45 (1) Hypertension Hypertension type: essential hypertension Qualified Code(s): I10 - Essential (primary) hypertension (2) Hypothyroidism Hypothyroidism type: unspecified Qualified Code(s): E03.9 - Hypothyroidism, unspecified (3) Diabetes mellitus type II, controlled Diabetes mellitus complication status: without complication Diabetes mellitus terminologist insulin use: with terminologist use Qualified Code(s): E11.9 - Type 2 diabetes mellitus without complications; 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
[2021-04-21] MEDS ORDERED: HYDROCORTISONE SOD SUCCINATE 100 MG/2 ML VIAL IV SCH (16:15)
--- NOTE | 2021-04-21 16:38 | Magnetic Resonance Report ---
MRI OF THE BRAIN WITHOUT CONTRAST CLINICAL HISTORY: cva COMPARISON STUDY: August 07, 2009 FINDINGS: Sagittal T1, axial diffusion, proton density and T2 weighted axial, coronal FLAIR, and axial T1-weigh cornelius images were acquired. No intra or extra-axial mass lesions are visualized Punctate area of high signal on DWI sequence (series 4 image 5) shows mild drop signal on ACD map and slight increase signal on T2 FLAIR coronal sequence, represent punctate focus or restricted diffusio n/ischemia. No other areas of restricted diffusion are seen. Mild diffuse atrophic changes of brain parenchyma associated with slight ventricular dilatation of ve ntricles. Proton density T2-weighted and FLAIR images reveal patchy areas of increase signal within periventric ular and subcortical white matter likely representing chronic small vessel ischemia. There are no abnormal flow voids. Fluid signal is seen within the right maxillary sinus likely representing sinusitis. IMPRESSION: 1. Questionable punctate focus of restricted diffusion within left cerebellar lobe which also shows slightly high T2 FLAIR signal might represent developing lacunar infarct or artifact. Findings will b e called to emergency Department. 2. Sinusitis. 3. Chronic small vessel ischemia. 4. Atrophic changes of brain parenchyma associated with ex vacuo dilatation of ventricles. ACT 112: Negative or not required by law. The above report was generated using voice recognition software. It may contain grammatical, syntax o r spelling errors. Electronically signed by: Mini Lynne DO 04/21/2021 4:36 PM
[2021-04-21] MEDS ORDERED: LABETALOL HCL IV 5 MG/ML 20ML IV PRN (17:07)
[2021-04-21] MEDS ORDERED: ICU PROTOCOL FOR HYPERGLYCEMIA PRN (17:07)
[2021-04-21] MEDS ORDERED: ALBUT/IPRATROP 3MG/0.5MG NEB 3 ML VIAL INH PRN (17:07)
[2021-04-21] MEDS ORDERED: PHARMACIST DISCHARGE MED REC CONSULT PRN (17:07)
[2021-04-21] MEDS ORDERED: HYDROCORTISONE SOD 100 MG in SYRINGE 0 ML IV SCH (17:30)
--- NOTE | 2021-04-21 17:47 | Critical Care Consultation ---
Date of Consultation April 21, 2021 Assessment & Plan (1) Stenosis of left internal carotid artery: (2) Stenosis of left vertebral artery: (3) Admitted to intensive care unit: (4) Stroke: --Acute strokelike symptoms Patient does have lateral deviation of the right eye and blurry vision No weakness on either extremities CT head negative for bleed CTA: Atherosclerotic involvement of bilateral carotid and vertebral arteries. Approximately 90% stenosis within V4 segment of the left vertebral artery. 50-69% stenosis within proximal aspect of the left internal carotid artery. S/p TPA Keep blood pressure less than 180/105 mmHg Aspiration precautions Continue with neurochecks --History of rheumatoid arthritis On chronic 5 mg prednisone --Atherosclerosis of the carotid artery Continue with high-dose statin --CKD Monitor BUNs/creatinine Avoid nephrotoxic medications --Leukocytosis Likely reactive to chronic prednisone plus acute stroke --Hypothyroidism On levothyroxine at home Currently on hold till swallow eval is done --Prophylaxis VTE: IPC's GI: Pepcid Lines: Peripheral Diet: N.p.o. Plan: Continue with neurochecks Keep blood pressure less than 180/105 Aspiration precautions Start aspirin and statin [address] head is negative For CT head tomorrow in the afternoon DC IV hydrocortisone Once the patient is swallow eval then tomorrow can resume 5 mg of prednisone. I have personally spent 40 minutes of critical care time in the direct manageme nt of this patient. This is a life/limb threatening event. This includes time spent evaluating erika ent, direct bedside care, chart review, placing orders, interpretation of diagnostic studies, discussion with consultants, patient, and family members, as well as other required patient management activities. This time is exclusive of all separately billable procedures, and teaching time and separate from and in addition to any other critical care service time. Please note the above document was generated using voice recognition software. It may contain grammatical, syntax or spelling errors. History of Present Illness Attending Physician: Delta Linares MD History of Present Illness 66-year-old female past medical history of hypertension, rheumatoid arthritis currently on prednisone 5 mg on a daily basis, used to be on methotrexate before, CKD, hypothyroidism, dyslipidemia, diabetes type 2 Presented to the ED with complaints of dizziness, numbness on the right side of the face as well as blurry vision. In the ED code stroke was called and teleneurologist were consulted who recommended TPA. Patient got TPA She is coming to the ICU for further management of her blood pressure post TPA At the time of examination patient denies any headache, she says she still has some blurry vision but is better compared to before Denies any weakness. Her speech is clear and smooth. She states she feels no numbness anymore on the right side of the face. Denies any nausea or vomiting. Patient denies any fever or chills. No dysuria no diarrhea. No fever or chills. Denies any shortness of breath. Patient's was in the room during examination. Social history: Non-smoker, no illicit drug use, no alcohol use. Allergies Allergy/AdvReac Type Severity Reaction Status Date / Time nitrofurantoin Allergy Severe HEADACHE Verified 04/21/21 13:00 tetracycline Allergy Severe RASH ON Verified 04/21/21 13:00 FACE Qcdimgi-Cbq-Uqr Reductase AdvReac Intermediate LE edema Verified 04/21/21 13:00 Inhibitor oxycodone AdvReac Drowsy Verified 04/21/21 13:00 Home Medications Medication Instructions Recorded Confirmed Type cholecalciferol (vitamin D3) 1,000 unit PO QAM 10/26/18 03/28/21 History [Vitamin D3] ferrous sulfate [Feosol] 325 mg PO QAM 10/26/18 03/28/21 History magnesium 250 mg PO QAM 10/26/18 03/28/21 History acetaminophen [Tylenol Extra 1,000 mg PO Q6H PRN 12/24/18 03/28/21 History Strength] blood-glucose meter #1 ea 12/03/19 03/28/21 Rx blood sugar diagnostic #200 ea 12/08/19 03/28/21 Rx lisinopril 40 mg tablet 40 mg PO QAM #90 tab 05/16/20 04/21/21 Rx omeprazole 20 mg capsule,delayed 20 mg PO QAM #90 cap 06/08/20 04/21/21 Rx release levothyroxine 100 mcg tablet 100 mcg PO QAM #90 tab 08/23/20 04/21/21 Rx metoprolol succinate 50 mg 100 mg PO QAM #60 tab 11/15/20 04/21/21 Rx tablet,extended release 24 hr cyclobenzaprine 10 mg PO DAILY 04/21/21 04/21/21 History prednisone 5 mg PO DAILY 04/21/21 04/21/21 History Patient History Medical History (Updated 04/21/21 @ 17:36 by Jenni Henry MD) Bilateral leg edema Colitis History of campylobacteriosis 04/2019 ([facility]) s/p antibiotics treatment History of MRSA infection lumbar surgical incision s/p vanco/ceftriaxone/bactrim per 04/2019 [facility] discharge summary Lower GI bleed Lumbar radiculopathy Nonhealing surgical wound Spinal stenosis Stage 3b chronic kidney disease Tachycardia Surgical History History of back surgery History of x2 History of hysterectomy total History of total left knee replacement Hx of tonsillectomy Status post laminectomy with spinal fusion L2-L5 laminectomy/fusion: 12/24/18: Grade view 1, MAC#3, ETT 7.0 Family History Father Diabetes Lung cancer Cancer Hypertension Mother Diabetes Brain tumor Cancer Hypertension Malignant neoplasm of brain Aunt Breast cancer Denies family history of Ovarian cancer Prostate cancer Myocardial infarction Colorectal cancer Social History Smoking Status: Never smoker Second Hand Exposure: No; Hx Alcohol Use: Yes Alcohol type: beer and wine Alcohol Intake Frequency: 2-4 x/Month Hx Substance Use: No Preferred Language: Japanese Communication Ability: Effective Visual Impairment: Limited Hearing Ability: Normal 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 Feels Safe at Home: Yes Childhood Exposure to Second-Hand Smoke: Yes caffeine: Yes Dental Care, Regularly: Yes Physical Activity Frequency: 5-6 Times per Week Physical Activity Frequency Comment: gym Seatbelt Use: always Sunscreen Use: Yes Do you think of yourself as: straight/heterosexual Assistive Devices: Glasses Review of Systems Review of Systems: All systems reviewed & are unremarkable except as noted in HPI & below Physical Exam Physical Exam: Constitutional: No acute distress HEENT: PERRLA, right eye deviated laterally but is able to move on following finger. Patient is not able to move the left eye. Does complain of blurry vision, no facial droop Respiratory system: Good air entry bilaterally, no wheeze, no rhonchi, no crackles CVS: S1-S2 positive, no murmurs or gallops Abdomen: Soft, nontender, nondistended, positive bowel sounds x4 Extremities: +2 pulses bilaterally radialis/ dorsalis pedis, no cyanosis, no edema, strength 5 out of 5 bilateral upper extremity and lower extremity Neuro: Awake alert oriented x3 Psych: Normal mood and affect G/U: No Zamorano Skin: no rashes, warm and dry Lymphatic: no cervical or axillary lymphadenopathy Results & Data Results & Data ([facility]) Vital Signs (Past 12 Hours) Vital Signs Temp Pulse Pulse Resp BP BP Pulse Ox 04/21/21 17:06 87 17 154/94 H 95 04/21/21 16:42 36.5 C 86 29 H 152/100 H 94 04/21/21 15:58 90 18 157/94 H 98 04/21/21 15:47 79 18 123/92 99 04/21/21 15:39 81 18 185/105 H 99 04/21/21 15:24 80 18 157/102 H 99 04/21/21 15:09 87 16 153/105 H 98 04/21/21 14:54 84 18 142/87 H 99 04/21/21 14:39 80 18 152/83 H 99 04/21/21 14:24 36.9 C 86 18 174/96 H 99 04/21/21 14:08 90 18 168/97 H 98 04/21/21 13:53 83 18 158/91 H 98 04/21/21 13:47 81 95 04/21/21 13:30 87 180/103 H 04/21/21 13:07 96 H 95 04/21/21 12:45 81 17 04/21/21 12:33 36.4 C L 80 14 176/100 H 98 04/21/21 11:46 04/21/21 11:46 Coding Level of Care Code Critical Care 1st 30-74 mins Diagnoses Stenosis of left internal carotid artery I65.22 Stenosis of left vertebral artery I65.02 Admitted to intensive care unit Z78.9 Stroke I63.9 Time Spent (min) 40
[2021-04-21 17:56] LABS: Glucose 167 mg/dl (70-99)
[2021-04-21] MEDS: NSS + 20MEQ KCL 20 MEQ/1,000 ML BAG IV SCH (17:56)
[2021-04-21 18:04] LABS: Troponin I < 0.015 ng/ml (0-0.045)
--- NOTE | 2021-04-21 21:04 | Electrocardiogram Report ---
Test Reason : Blood Pressure : / mmHG Vent. Rate : 092 BPM Atrial Rate : 092 BPM P-R Int : 158 ms QRS Dur : 070 ms QT Int : 348 ms P-R-T Axes : 046 039 035 degrees QTc Int : 430 ms Poor data quality, interpretation may be adversely affected Normal sinus rhythm with sinus arrhythmia Normal ECG When compared with ECG of 26-APR-2019 11:53, No significant change was found Confirmed by Gold Davis ([id number]) on 04/21/2021 9:04:07 PM Referred By: REFERRED SELF Confirmed By:Harry Davis
[2021-04-21] MEDS: FAMOTIDINE 20 MG in SYRINGE 3 ML IV SCH (21:22)
--- NOTE | 2021-04-22 09:27 | Hospitalist Progress Note ---
Date of Service April 22, 2021 Assessment & Plan (1) Acute CVA (cerebrovascular accident): Acute CVA/90 percent stenosis of V4 segment of left vertebral artery/50 to 69% proximal LICA stenosis/status post TPA in ED- Admit to intensive care unit sp tPA Appreciate input from Neuro: Patient has multiple risk factors for this patient include diabetes mellitus, hypertension, and hyperlipidemia. She was not taking any antiplatelet medication or a statin as an outpatient. Will obtain repeat CT scan of her head today 24 hours after tPA (14:00 today) May start daily aspirin therapy 24 hours after administration of TPA if no evidence of interval hemorrhage on follow-up CT of the head. will start statin. Continue medical management of hypertension. Systolic blood pressure goal 140 to 160 mmHg. (2) Stenosis of left vertebral artery: See above (3) Stenosis of left internal carotid artery: See above (4) Received intravenous tissue plasminogen activator (tPA) in emergency department: See above (5) Stage 3b chronic kidney disease: Creatinine 1.4 upon admission, with usual range 1.39-1.69 (6) Immunosuppression due to drug therapy: Hold oral prednisone 5 mg daily. Placed on stress dose hydrocortisone 100 mg IV every 8 hours. will taper down to q12h (7) Hypertension: Permissive hypertension, with IV labetalol as needed per protocol (8) Hypothyroidism: will resume levothyroxine today. (9) Hyperlipidemia: will start high dose atorvastatin 80 mg PO hs (10) Diabetes mellitus type II, controlled: ICU hyperglycemic protocol (11) Rheumatoid arthritis: Holding oral prednisone. Stress dose hydrocortisone as noted (12) Admitted to intensive care unit: Admission and Anticipated Discharge Date Admission Date: April 21, 2021 Subjective Patient reports feeling improved. She feels that her vision in her right eye has improved and the only issue is now that she feels she is unable to turn her left eye laterally. Review of Systems Review of Systems: All systems reviewed & are unremarkable except as noted in HPI & below Physical Exam Physical Exam: The patient is awake, alert and oriented 3, well developed and well nourished, normocephalic and atraumatic, lying in bed and in no acute distress. HEENT--PERRL. NO LONGER HAVING Right exotropia. mucous membranes and oropharynx normal. Neck--supple. Heart--normal S1 and S2. No murmurs, rubs or gallops. Lungs--clear bilaterally, no respiratory distress, no accessory muscle use. Abdomen--normal bowel sounds and soft. NT/ND Extremities--no cyanosis or clubbing. No edema. There are good distal pulses b/l. Dermatologic--normal skin turgor, normal color Neurologic--decreased range of motion of her left eye to the lateral side. No longer having right exotropia. Normal strength in all extremities. Rheumatologic--normal range of motion. Psychiatric--normal affect. Results & Data Results & Data ([facility]) Vital Signs (Past 12 Hours) Vital Signs Temp Pulse Pulse Resp BP BP Pulse Ox 04/22/21 06:39 36.7 C 81 16 180/90 H 95 04/22/21 05:39 36.7 C 81 16 160/82 H 94 04/22/21 04:39 36.9 C 81 16 148/72 H 95 04/22/21 02:39 37 C 83 16 149/77 H 95 04/22/21 01:39 36.9 C 71 18 129/86 95 04/22/21 00:39 36.7 C 81 16 134/92 95 04/21/21 23:39 36.9 C 84 16 135/67 95 04/21/21 22:39 36.6 C 80 18 123/77 95 04/21/21 21:39 36.9 C 91 H 18 153/92 H 95 04/21/21 21:36 82 24 153/92 H 98 PG Care Time/CCT Total # of Minutes Spent Total Time Spent with Patient: Total time spent is greater than 50% in coordination of care (as documented) at patient's floor/unit and/or counseling patient: Coding Level of Care Code 76899 Subseq Hosp Care Lvl 3 Diagnoses Acute CVA (cerebrovascular accident) I63.9 Stenosis of left vertebral artery I65.02 Stenosis of left internal carotid artery I65.22 Received intravenous tissue plasminogen activator (tPA) in emergency department Z92.82 Stage 3b chronic kidney disease N18.3 Immunosuppression due to drug therapy Z79.899 Hypertension I10 Hypertension type: essential hypertension Hypothyroidism E03.9 Hypothyroidism type: unspecified Hyperlipidemia E78.5 Diabetes mellitus type II, controlled E11.9; Z79.4 Diabetes mellitus complication status: without complication Diabetes mellitus predatory animal exterminator insulin use: with predatory animal exterminator use Rheumatoid arthritis M06.9 Rheumatoid arthritis location: multiple sites Rheumatoid factor presence: unspecified presence Admitted to intensive care unit Z78.9 Time Spent (min) 35 (1) Rheumatoid arthritis Rheumatoid arthritis location: multiple sites Rheumatoid factor presence: unspecified presence Qualified Code(s): M06.9 - Rheumatoid arthritis, unspecified (2) Hypothyroidism Hypothyroidism type: unspecified Qualified Code(s): E03.9 - Hypothyroidism, unspecified (3) Diabetes mellitus type II, controlled Diabetes mellitus complication status: without complication Diabetes mellitus care home insulin use: with predatory animal exterminator use Qualified Code(s): E11.9 - Type 2 diabetes mellitus without complications; Z79.4 - MCC (current) use of insulin (4) Hypertension Hypertension type: essential hypertension Qualified Code(s): I10 - Essential (primary) hypertension
--- NOTE | 2021-04-22 10:00 | Neurology Consultation ---
Date of Consultation April 22, 2021 Assessment & Plan (1) Acute ischemic vertebrobasilar artery brainstem stroke: Acute vertebrobasilar artery distribution infarcts with evidence of acute ischemic infarct within the left hemipons extending to the left pontine tegmentum as well as a punctate infarct within the left cerebellar hemisphere. Patient had presented with diplopia likely due to a fascicular left 6th nerve palsy (stroke within the left pontine tegmentum), this issue is persistent. She had also presented with right sided motor and sensory deficits which have resolved following administration of TPA yesterday. She is clinically stable this morning but again, has residual diplopia, worse at a distance and with left gaze. Stroke risk factors for this patient include diabetes mellitus, hypertension, and hyperlipidemia. She was not taking any antiplatelet medication or a statin as an outpatient. Follow-up CT of the head 24 hours after administration of TPA. May start daily aspirin therapy 24 hours after administration of TPA if no evidence of interval hemorrhage on follow-up CT of the head. Would recommend starting a statin as well. Patient can follow-up with her PCP regarding any difficulty with statin intolerance going forward. Continue medical management of hypertension. Systolic blood pressure goal 140 to 160 mmHg. Patient will need to follow-up with ophthalmology as an outpatient to monitor her diplopia. She may require prisms. May follow-up in neurology clinic in 3 to 4 weeks. History of Present Illness Reason for Consultation: Stroke, status post TPA Requesting Physician: Delta Linares MD Attending Physician: Gilberto Hernadez History of Present Illness The patient is a 66-year-old female with a chief complaint of diplopia that began acutely late yesterday morning. The double vision has persisted and is worse when looking at objects at a distance and to the left. She also complains of associated right sided numbness, tingling, and weakness. These motor and sensory symptoms resolved after administration of TPA in the emergency department yesterday. She does admit to feeling significantly improved other than the double vision as above. No headache or other neurologic symptoms at this time. A CT of the head was negative for hemorrhage or acute process. A CTA of the neck revealed atherosclerosis within the bilateral carotid and vertebral arteries with a 90% stenosis within the left V4 segment of the vertebral artery. There is a 50 to 69% stenosis within the proximal aspect of the left internal carotid artery. CTA of the head was unremarkable. A brain MRI reveals a possible punctate focus of restricted diffusion within the left cerebellar hemisphere potentially consistent with an acute infarct. Per my review of the MRI images, I do appreciate an additional area of potential acute infarct within the left hemipons extending into the left pontine tegmentum. Past medical history notable for type 2 diabetes mellitus, hypertension, and hyperlipidemia. She does not take a statin or an antiplatelet medication. She does take lisinopril and metoprolol as an outpatient. Allergies Allergy/AdvReac Type Severity Reaction Status Date / Time nitrofurantoin Allergy Severe HEADACHE Verified 04/21/21 13:00 tetracycline Allergy Severe RASH ON Verified 04/21/21 13:00 FACE Whaalkt-Nuo-Coy Reductase AdvReac Intermediate LE edema Verified 04/21/21 13:00 Inhibitor oxycodone AdvReac Drowsy Verified 04/21/21 13:00 Home Medications Medication Instructions Recorded Confirmed Type cholecalciferol (vitamin D3) 1,000 unit PO QAM 10/26/18 03/28/21 History [Vitamin D3] ferrous sulfate [Feosol] 325 mg PO QAM 10/26/18 03/28/21 History magnesium 250 mg PO QAM 10/26/18 03/28/21 History acetaminophen [Tylenol Extra 1,000 mg PO Q6H PRN 12/24/18 03/28/21 History Strength] blood-glucose meter #1 ea 12/03/19 03/28/21 Rx blood sugar diagnostic #200 ea 12/08/19 03/28/21 Rx lisinopril 40 mg tablet 40 mg PO QAM #90 tab 05/16/20 04/21/21 Rx omeprazole 20 mg capsule,delayed 20 mg PO QAM #90 cap 06/08/20 04/21/21 Rx release levothyroxine 100 mcg tablet 100 mcg PO QAM #90 tab 08/23/20 04/21/21 Rx metoprolol succinate 50 mg 100 mg PO QAM #60 tab 11/15/20 04/21/21 Rx tablet,extended release 24 hr cyclobenzaprine 10 mg PO DAILY 04/21/21 04/21/21 History prednisone 5 mg PO DAILY 04/21/21 04/21/21 History Patient History Medical History (Updated 04/22/21 @ 09:49 by Ki Rodriguez MD) Bilateral leg edema Colitis History of campylobacteriosis 04/2019 ([facility]) s/p antibiotics treatment History of MRSA infection lumbar surgical incision s/p vanco/ceftriaxone/bactrim per 04/2019 [facility] discharge summary Lower GI bleed Lumbar radiculopathy Nonhealing surgical wound Spinal stenosis Stage 3b chronic kidney disease Tachycardia Surgical History History of back surgery History of x2 History of hysterectomy total History of total left knee replacement Hx of tonsillectomy Status post laminectomy with spinal fusion L2-L5 laminectomy/fusion: 12/24/18: Grade view 1, MAC#3, ETT 7.0 Family History Father Diabetes Lung cancer Cancer Hypertension Mother Diabetes Brain tumor Cancer Hypertension Malignant neoplasm of brain Aunt Breast cancer Denies family history of Ovarian cancer Prostate cancer Myocardial infarction Colorectal cancer Social History Smoking Status: Never smoker Second Hand Exposure: No; Hx Alcohol Use: No Hx Substance Use: No Preferred Language: Pashto Communication Ability: Effective Visual Impairment: Limited Hearing Ability: Normal Market Research Interviewer Required: No Beliefs That Will Affect Care: None marital status: Current Living Situation: Spouse current occupational status: retired How many Children do You have: 2 other: 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 Feels Safe at Home: Yes Childhood Exposure to Second-Hand Smoke: Yes caffeine: Yes Dental Care, Regularly: Yes Physical Activity Frequency: 5-6 Times per Week Physical Activity Frequency Comment: gym Seatbelt Use: always Sunscreen Use: Yes Do you think of yourself as: straight/heterosexual Assistive Devices: Glasses Review of Systems Constitutional: no fever and no chills Eyes: as per Subjective / HPI and + diplopia; no blind spots Ear, Nose, Mouth, Throat: no ear pain and no hearing loss Respiratory: no cough and no dyspnea Cardiovascular: no chest pain and no palpitations Gastrointestinal: no nausea and no vomiting Genitourinary: no dysuria Musculoskeletal: no myalgia Integumentary: no rash and no lesions Neurologic: as per Subjective / HPI; no seizure-like activity, no syncope and no headache(s) Psychiatric: no depression and no anxiety Hematologic / Lymphatic: no easy bleeding and no easy bruising Exam (Neuro) Constitutional: well developed and well nourished; no acute distress Eyes: normal visual mitchell by confrontation, PERRL, normal accommodation and EOM intact bilaterally; no fundoscopic abnormality, no nystagmus and no papilledema Cardiovascular: Vessels: normal carotid upstroke; no carotid bruit Neurologic: Oriented to:: Person, Place and Time Memory: Short Term Intact and Remote Intact Attention: Span Intact and Concentration Intact Language: Naming Objects and Repeating Phrases Speech Fluency: negative Dysarthria Speech Aphasia: negative Aphasia Fund of Knowledge: Current Events, Past History and Vocabulary Cranial Nerves: Normal II (Visual mitchell full to confrontation, visual acuity normal), III, IV, (Pupils equal round reactive to light and accommodation, eye movements normal), V (Facial sensation intact), VII (There is no facial droop or weakness), VIII (Hearing intact), IX, X (Palate elevates to midline), XI (Shoulder shrug intact) and XII (Tongue protrudes to midline) Motor Strength: Normal Lower Extremities and Normal Upper Extremities; negative Pronator Drift Motor Tone: Normal Lower Extremities and Normal Upper Extremities Muscle Bulk/Involuntary Movements: No Involuntary Movements; negative Muscle Atrophy Sensation: Light Touch Intact, Pain/Temperature Intact, Vibration Intact and Proprioception Intact Coordination: Normal; negative Limited Balance, Dysdiadochokinesia, Finger-Nose Abnormal and Heel-Gray Abnormal Deep Tendon Reflexes: Rt Triceps: 2+, Lt Triceps: 2+, Rt Biceps: 2+, Lt Biceps: 2+, Rt Brachioradialis: 2+, Lt Brachioradialis: 2+, Rt Patellar: 2+, Lt Patellar: 2+, Rt Ankle: 1+ and Lt Ankle: 1+ Special Tests: Babinski Present (Equivocal plantar response on the right) Details: Gait not tested in the context of patient's current neurological status. Patient does complain of diplopia when looking at objects at a distance at bedside. Diplopia increases when gazing to the left. She does not have obvious ophthalmoplegia. Results & Data ([facility]) Vital Signs (Past 12 Hours) Vital Signs Temp Pulse Resp BP Pulse Ox 04/22/21 06:39 36.7 C 81 16 180/90 H 95 04/22/21 05:39 36.7 C 81 16 160/82 H 94 04/22/21 04:39 36.9 C 81 16 148/72 H 95 04/22/21 02:39 37 C 83 16 149/77 H 95 04/22/21 01:39 36.9 C 71 18 129/86 95 04/22/21 00:39 36.7 C 81 16 134/92 95 04/21/21 23:39 36.9 C 84 16 135/67 95 04/21/21 22:39 36.6 C 80 18 123/77 95 04/21/21 21:39 36.9 C 91 H 18 153/92 H 95 Laboratory Results WBC 13.37, hemoglobin 12.4, hematocrit 39.2, platelet count 269, sodium 139, potassium 3.8, BUN 28, creatinine 1.4, glucose 167, hemoglobin A1c 7.5, troponin less than 0.015, triglycerides 372, cholesterol 316, LDL 205, VLDL 74, HDL [address] of the head, CT angiography of the head and neck, and brain MRI are as desc ribed in the history of present illness. I reviewed the images as well as the radiologist interpretation of these tests. As above, the diffusion-weighted imaging on patient's brain MRI does reveal some additional areas of restricted diffusion within the left hemipons extending to the pontine tegmentum as well as the mentioned area within the left cerebellar hemisphere. These findings are suggestive of probable acute infarcts in these areas. Coding Level of Care Code 17822 Initial In Care Lvl 3 Diagnoses Acute ischemic vertebrobasilar artery brainstem stroke I63.219; I63.22
[2021-04-22] MEDS: FAMOTIDINE 20 MG in SYRINGE 3 ML IV SCH ×2 (10:22→21:04)
[2021-04-22] MEDS: NSS + 20MEQ KCL 20 MEQ/1,000 ML BAG IV SCH (10:23)
--- NOTE | 2021-04-22 10:37 | XCELERA ---
[id number]
[2021-04-22] MEDS: ACETAMINOPHEN 325 MG TAB PO PRN ×2 (12:31→21:03)
--- NOTE | 2021-04-22 14:11 | Critical Care Progress Note ---
Date of Service April 22, 2021 Assessment & Plan (1) Stenosis of left internal carotid artery: (2) Stenosis of left vertebral artery: (3) Admitted to intensive care unit: (4) Stroke: --Acute stroke Acute vertebrobasilar artery distribution infarcts with evidence of acute ischemic infarct within the left hemipons extending to the left pontine tegmentum as well as a punctate infarct within the left cerebellar hemisphere. CT head negative for bleed CTA: Atherosclerotic involvement of bilateral carotid and vertebral arteries. Approximately 90% stenosis within V4 segment of the left vertebral artery. 50-69% stenosis within proximal aspect of the left internal carotid artery. S/p TPA Keep blood pressure less than 180/105 mmHg Continue with neurochecks --History of rheumatoid arthritis On chronic 5 mg prednisone --Atherosclerosis of the carotid artery Continue with high-dose statin --CKD Monitor BUNs/creatinine Avoid nephrotoxic medications --Leukocytosis Likely reactive to chronic prednisone plus acute stroke --Hypothyroidism On levothyroxine at home Currently on hold till swallow eval is done --Prophylaxis VTE: IPC's GI: Pepcid Lines: Peripheral Diet: Cardiac diet Plan: In/out: Negative 894, urine output 1500 mL Continue with neurochecks Keep blood pressure less than 180/105 Start aspirin and statin [address] head is negative Continue with statin Patient should be able to be downgraded if the repeat CT head is negative Please note the above document was generated using voice recognition software. It may contain grammatical, syntax or spelling errors.Any formal questions or concerns about the content, text or information contained within the body of this dictation should be directly addressed to the provider for clarification. Admission and Anticipated Discharge Date Admission Date: April 21, 2021 Subjective Patient seen and examined at bedside. No acute distress, no adverse events overnight. Patient states she is feeling better compared to when she came to the hospital. No numbness, no weakness. She still complains of blurry vision but it is better than before. Had an episode of vomiting yesterday. Denies any nausea or vomiting today. No headache. Fair appetite. Review of Systems Review of Systems: All systems reviewed & are unremarkable except as noted in Subjective Physical Exam Physical Exam: Constitutional: No acute distress HEENT: PERRLA, right eye is back to the central position, patient is not able to move the left eye, Does complain of blurry vision, no facial droop Respiratory system: Good air entry bilaterally, no wheeze, no rhonchi, minimal crackles bilateral lower lobes CVS: S1-S2 positive, no murmurs or gallops Abdomen: Soft, nontender, nondistended, positive bowel sounds x4 Extremities: +2 pulses bilaterally radialis/ dorsalis pedis, no cyanosis, no edema, strength 5 out of 5 bilateral upper extremity and lower extremity Neuro: Awake alert oriented x3 Psych: Normal mood and affect G/U: No Zamorano Skin: no rashes, warm and dry Lymphatic: no cervical or axillary lymphadenopathy Results & Data Results & Data ([facility]) Vital Signs (Past 12 Hours) Vital Signs Temp Pulse Resp BP Pulse Ox 04/22/21 13:39 36.7 C 90 12 162/94 H 95 04/22/21 12:39 36.8 C 98 H 16 164/81 H 97 04/22/21 11:39 36.7 C 92 H 19 154/102 H 96 04/22/21 10:39 36.7 C 95 H 18 149/87 H 95 04/22/21 09:39 36.6 C 93 H 12 158/100 H 95 04/22/21 08:39 36.8 C 103 H 12 176/85 H 94 04/22/21 07:39 36.8 C 84 13 151/104 H 95 04/22/21 06:39 36.7 C 81 16 180/90 H 95 04/22/21 05:39 36.7 C 81 16 160/82 H 94 04/22/21 04:39 36.9 C 81 16 148/72 H 95 04/22/21 02:39 37 C 83 16 149/77 H 95 04/21/21 11:46 04/21/21 17:35 Coding Level of Care Code 26949 Subseq Hosp Care Lvl 3 Diagnoses Stenosis of left internal carotid artery I65.22 Stenosis of left vertebral artery I65.02 Admitted to intensive care unit Z78.9 Stroke I63.9
--- NOTE | 2021-04-22 14:45 | CT Scan Report ---
CT head/brain wo con CLINICAL HISTORY: 66 years-old Female with 24 HOURS AFTER tPA. Follow-up study in a patient with acu te strokelike symptoms TECHNIQUE: Multiple axial CT images of the head were obtained without contrast. A dose lowering tech nique was utilized adhering to the principles of ALARA. CT DOSE: 537.48 mGy.cm COMPARISON: Brain MRI and head CT 04/21/2021 FINDINGS: No acute intracranial hemorrhage, midline shift, intracranial mass, hydrocephalus, territorial ischem ia or abnormal extra-axial collection. Mild involutional changes. Mild white matter hypodensities sug gestive of chronic microvascular ischemic disease. Posterior fossa structures are not well visualized secondary to streak artifact. Senescent calcifications of the basal ganglia. The calvarium is intact. Mucoperiosteal thickening of the right maxillary sinus is partially imaged. The mastoid air cells are clear. Unremarkable soft tissues and orbits. IMPRESSION: No acute intracranial abnormality. ACT 112: Negative or not required by law. The above report was generated using voice recognition software. It may contain grammatical, syntax o r spelling errors. Electronically signed by: Darwin Cohen M.D. 04/22/2021 2:44 PM
[2021-04-22] MEDS ORDERED: LEVOTHYROXINE SODIUM 100 MCG TABLET PO ONE (16:15)
[2021-04-22] MEDS ORDERED: PHARMACY GLYCEMIC MGMT CONSULT PRN (17:30)
[2021-04-22] MEDS ORDERED: CARBOHYDRATES FOR HYPOGLYCEMIA PO PRN (17:45)
[2021-04-22] MEDS ORDERED: GLUCOSE 10 TABS/TUBE PO PRN (17:45)
[2021-04-22] MEDS ORDERED: GLUCAGON FOR INJ 1 MG VIAL IM PRN (17:45)
[2021-04-22] MEDS ORDERED: GLUCOSE 40% GEL 15 GM TUBE PO PRN (17:45)
[2021-04-22] MEDS ORDERED: DEXTROSE 50% 50 ML SYRINGE IV PRN (17:45)
[2021-04-22] MEDS: INSULIN ASPART 100 UNITS/ML 3 ML PEN SC SCH ×2 (17:48→21:05)
--- NOTE | 2021-04-22 19:37 | Pharmacy Report ---
Pharmacy Glycemic Short Note 2 - Date of Service April 22, 2021 - Glycemic Short BSG Results (Last 24 hours): 04/22/21 11:26 POC Glucose 131 H OUTPATIENT ANTIDIABETIC REGIMEN: * N/a * HbA1c = 7.5% (04/18/21) ASSESSMENT: * 66 yo F admitted last evening secondary to an acute CVA. She was in ICU post- tPA administration. Now transferred to MICU. She is ordered a T2DM diet. Pharmacy was consulted this evening to assist with inpatient glycemic management. * Patient is not on any anti-diabetic medications at home but her most recent HbA1c dose confirm a diagnosis of T2DM. * BSGs yesterday post-tPA were 221 and 167 mg/dL. Only one BSG taken today and it was 131 mg/dL at lunchtime. * Starting just Novolog at this point based on a weight/stress of 2. * Hold off on basal for now. * Likely can be discharged on Metformin as long as there are no contraindications PLAN FOR INPATIENT GLYCEMIC CONTROL: * Basal insulin * Holding * Bolus insulin * NovoLog per scale ACHS or Q6hrs while NPO * Goal Range: Low 110 mg/dL - High 140 mg/dL * Correction Factor: 30 mg/dL/unit * Nutritional / Prandial insulin per carb ratio of 1 unit per 10 grams CHO consumed PLAN FOR DISCHARGE: * To be determined
[2021-04-22] MEDS ORDERED: METOPROLOL SUCC 50MG EXT REL TAB PO SCH (21:00)
[2021-04-22] MEDS: METOPROLOL SUCC 50MG EXT REL TAB PO SCH (21:04)
[2021-04-22] MEDS: lisinopril 20 MG TAB PO SCH (21:04)
[2021-04-22] MEDS: ATORVASTATIN 40 MG TAB PO SCH (21:05)
[2021-04-23] MEDS: LEVOTHYROXINE SODIUM 100 MCG TABLET PO SCH (06:42)
[2021-04-23 06:49] LABS: Basophils # (auto) 0.07 K/uL (0-0.2); Basophils % (auto) 0.8 %; Eosinophils # (auto) 0.22 K/uL (0-0.5); Eosinophils % (auto) 2.6 %; Hematocrit (blood only) 38.3 % (37-47); Hemoglobin 12.1 g/dL (12.0-16.0); Immature Granulocytes # (auto) 0.05 K/uL (0.00-0.02); Immature Granulocytes % (auto) 0.6 %; Lymphocytes # (auto) 1.76 K/uL (1.2-3.4); Lymphocytes % (auto) 21.2 %; Mean Corpuscular Hemoglobin 29.7 pg (25-34); Mean Corpuscular Hgb Conc 31.6 g/dL (32-36); Mean Corpuscular Volume 94.1 fL (80-100); Mean Platelet Volume 10.4 fL (7.4-10.4); Monocytes # (auto) 0.92 K/uL (0.11-0.59); Monocytes % (auto) 11.1 %; Neutrophils # (auto) 5.29 K/uL (1.4-6.5); Neutrophils % (auto) 63.7 %; Platelet Count 281 K/uL (130-400); RDW Coefficient of Variation 14.4 % (11.5-14.5); RDW Standard Deviation 49.4 fL (36.4-46.3); Red Blood Count 4.07 M/uL (4.2-5.4); White Blood Count 8.31 K/uL (4.8-10.8)
[2021-04-23 06:58] LABS: Partial Thromboplastin Ratio 0.9; Partial Thromboplastin Time 22.4 Seconds (21.0-31.0)
[2021-04-23 07:21] LABS: Alanine Aminotransferase 33 U/L (12-78); Albumin Level 3.3 gm/dl (3.4-5.0); Aspartate Aminotransferase 20 U/L (15-37); BUN Creatinine Ratio 18.5 (10-20); Bilirubin Direct < 0.1 mg/dl (0-0.2); Blood Urea Nitrogen 25 mg/dl (7-18); Carbon Dioxide 29 mmol/L (21-32); Chloride 103 mmol/L (98-107); Creatinine Clr Calc Pharmacy 42.3 ml/min; Est GFR (African American) 46.9 ml/min; Est GFR (Non-African American) 40.4 ml/min; Glucose 136 mg/dl (70-99); Magnesium 2.3 mg/dl (1.8-2.4); Potassium 3.7 mmol/L (3.5-5.1); Sodium 137 mmol/L (136-145)
[2021-04-23 07:41] LABS: Alkaline Phosphatase 65 U/L (45-117); Bilirubin,Total 0.4 mg/dl (0.2-1); Phosphorus 3.7 mg/dl (2.5-4.9); Total Protein 6.6 gm/dl (6.4-8.2)
[2021-04-23] MEDS: predniSONE 5 MG TAB PO SCH (08:33)
[2021-04-23] MEDS: INSULIN ASPART 100 UNITS/ML 3 ML PEN SC SCH ×4 (08:34→21:00)
[2021-04-23] MEDS: FAMOTIDINE 20 MG in SYRINGE 3 ML IV SCH (09:11)
[2021-04-23] MEDS ORDERED: lisinopril 10 MG TAB PO ONE (11:53)
[2021-04-23] MEDS: ASPIRIN 81 MG ECTAB PO SCH (12:06)
[2021-04-23] MEDS: ACETAMINOPHEN 325 MG TAB PO PRN (12:17)
--- NOTE | 2021-04-23 12:58 | Pharmacy Report ---
Pharmacy Glycemic Short Note 2 - Date of Service April 23, 2021 - Glycemic Short BSG Results (Last 24 hours): 04/22/21 04/23/21 04/23/21 20:21 06:05 07:31 Glucose 136 H POC Glucose 155 H 140 H 04/23/21 11:38 Glucose POC Glucose 159 H OUTPATIENT ANTIDIABETIC REGIMEN: * N/a * HbA1c = 7.5% (04/18/21) ASSESSMENT: 04/23 * BSGs well controlled over last 24 hrs. * No basal insulin on board yet fasting BSG at goal (FBS 136) - no change * Post-prandial BSGs have been controlled with current CF and CR doses - no change 04/22 * 66 yo F admitted last evening secondary to an acute CVA. She was in ICU post- tPA administration. Now transferred to MICU. She is ordered a T2DM diet. Pharmacy was consulted this evening to assist with inpatient glycemic management. * Patient is not on any anti-diabetic medications at home but her most recent HbA1c dose confirm a diagnosis of T2DM. * BSGs yesterday post-tPA were 221 and 167 mg/dL. Only one BSG taken today and it was 131 mg/dL at lunchtime. * Starting just Novolog at this point based on a weight/stress of 2. * Hold off on basal for now. * Likely can be discharged on Metformin as long as there are no contraindications PLAN FOR INPATIENT GLYCEMIC CONTROL: * Basal insulin * Holding * Bolus insulin * NovoLog per scale ACHS or Q6hrs while NPO * Goal Range: Low 110 mg/dL - High 140 mg/dL * Correction Factor: 30 mg/dL/unit * Nutritional / Prandial insulin per carb ratio of 1 unit per 10 grams CHO consumed PLAN FOR DISCHARGE: * Could consider initiating metformin on discharge given A1c of 7.5%, if no contraindications present.
[2021-04-23] MEDS ORDERED: busPIRone 5 MG TAB PO ONE (17:23)
[2021-04-23] MEDS: METOPROLOL SUCC 50MG EXT REL TAB PO SCH (21:00)
[2021-04-23] MEDS: FAMOTIDINE 20 MG TAB PO SCH (21:03)
[2021-04-23] MEDS: lisinopril 20 MG TAB PO SCH (21:04)
[2021-04-23] MEDS: ATORVASTATIN 40 MG TAB PO SCH (21:04)
--- NOTE | 2021-04-23 22:14 | Hospitalist Progress Note ---
Date of Service April 23, 2021 Assessment & Plan (1) Acute CVA (cerebrovascular accident): Acute ischemic vertebrobasilar artery brainstem CVA 2nd to 90% stenosis of left vertebral artery. s/p TPA HD #1. Diplopia, ataxia, etc all resolved. Patient has multiple risk factors for CVA including diabetes mellitus, hypertension, and hyperlipidemia. Repeat CT head at 24 hours post-TPA w/o hemorrhagic conversion. Aspirin 81mg daily initiated for secondary CVA prevention. Lipitor 80mg daily also initiated for cholesterol control and secondary prevention. Continue medical management of hypertension. Systolic blood pressure goal 140 to 160 mmHg while hospitalize. Would use split dosing of BP meds for optimal control. Of note - echo w/o source of thrombus. No PAF seen on tele. Appreciate neurology assistance. Appreciate PT, OT, speech evals; rehab not needed. Cont BP control and can d/c home if BPs are consistently improved tomorrow. (2) Stenosis of left vertebral artery: See above (3) Stenosis of left internal carotid artery: 50-69% left ICA stenosis. Will need outpatient surveillance of this. Cont statin. Cont asa. (4) Received intravenous tissue plasminogen activator (tPA) in emergency department: for acute stroke as above (5) Stage 3b chronic kidney disease: Creatinine stable BMP am (6) Immunosuppression due to drug therapy: Cont oral prednisone 5 mg daily for RA. s/p stress doses of IV steroid earlier this admission. (7) Hypertension: Cont BB Increase lisinopril to 10mg qam, 20mg HS titrate for SBPs of 140-150 prior to d/c (8) Hypothyroidism: cont levothyroxine TSH wnl (9) Hyperlipidemia: cont high dose atorvastatin 80 mg PO hs may need coenzyme q10 for prevention of myalgias (10) Diabetes mellitus type II, controlled: a1c 7.5% consider metformin after d/c (11) Rheumatoid arthritis: cont prednisone controlled (12) Anxiety: trial of buspar 5mg x 1 if effective can d/c home w/ small supply updated pt's at bedside, daughter via zoom (while in room) hopefully home tomorrow Admission and Anticipated Discharge Date Admission Date: April 21, 2021 Subjective double vision resolved. walking steady; no ataxia. denies sensory or motor loss. no dysphagia. eating well. admits to feeling very anxious about current stroke and "why did it happen?". patient and (at bedside) with numerous questions about stroke. also, at end of visit, patient's daughter was zoomed in via iPad. she, too, with numerous questions. spent nearly 30 min at bedside. Review of Systems Respiratory: no cough, no dyspnea and no dyspnea on exertion Cardiovascular: no chest pain Gastrointestinal: no abdominal pain, no nausea and no vomiting Neurologic: no gait abnormality, no localized weakness and no loss of sensation Physical Exam Constitutional: well developed and well nourished; no acute distress and no altered mental status Eyes: extraocular movements full except minimal amount of left lateral rectus palsy ENMT: external ear and nose normal, oropharynx normal Respiratory: normal respiratory effort, lungs clear to auscultation Cardiovascular: RRR, no murmur, no edema Heart Sounds: normal S1 and normal S2 Vessels: posterior tibial pulses present and dorsalis pedis pulses present; no JVD Gastrointestinal (Abdomen): normal bowel sounds, soft, nontender, no he patosplenomegaly Neurologic: moves all extremities; no focal motor deficits Speech / Cognition: normal speech Coordination: normal [id number] test Psychiatric: Orientation: alert and oriented x 3 Affect: + anxious affect Results & Data Results & Data ([facility]) Vital Signs (Past 12 Hours) Vital Signs Temp Pulse Pulse Resp BP BP Pulse Ox 04/23/21 20:00 36.8 C 83 16 144/93 H 95 04/23/21 16:00 93 H 04/23/21 15:28 36.8 C 89 18 171/115 H 98 04/23/21 12:10 36.8 C 89 18 166/105 H 96 Laboratory Results Laboratory Results - last 24 hr 04/23/21 04/23/21 04/23/21 06:05 06:05 06:05 WBC 8.31 RBC 4.07 L Hgb 12.1 Hct 38.3 MCV 94.1 MCH 29.7 MCHC 31.6 L RDW Std Deviation 49.4 H RDW Coeff of Sumaya 14.4 Plt Count 281 MPV 10.4 Immature Gran % (Auto) 0.6 Neut % (Auto) 63.7 Lymph % (Auto) 21.2 [place]berry % (Auto) 11.1 Eos % (Auto) 2.6 Baso % (Auto) 0.8 Neut # (Auto) 5.29 Lymph # (Auto) 1.76 [place] # (Auto) 0.92 H Eos # (Auto) 0.22 Baso # (Auto) 0.07 Immature Gran # (Auto) 0.05 H PT 10.0 INR 1.0 APTT 22.4 PTT Ratio 0.9 Sodium 137 Potassium 3.7 Chloride 103 Carbon Dioxide 29 Anion Gap 5.0 BUN 25 H Creatinine 1.36 H Est Cr Clr Drug Dosing 42.3 Est GFR ( Amer) 46.9 Est GFR (Non-Af Amer) 40.4 BUN/Creatinine Ratio 18.5 Glucose 136 H POC Glucose Calcium 9.0 Phosphorus 3.7 Magnesium 2.3 Total Bilirubin 0.4 Direct Bilirubin < 0.1 AST 20 ALT 33 Alkaline Phosphatase 65 Total Protein 6.6 D Albumin 3.3 L 04/23/21 04/23/21 04/23/21 07:31 11:38 16:45 WBC RBC Hgb Hct MCV MCH MCHC RDW Std Deviation RDW Coeff of Sumaya Plt Count MPV Immature Gran % (Auto) Neut % (Auto) Lymph % (Auto) [place]berry % (Auto) Eos % (Auto) Baso % (Auto) Neut # (Auto) Lymph # (Auto) Newberry # (Auto) Eos # (Auto) Baso # (Auto) Immature Gran # (Auto) PT INR APTT PTT Ratio Sodium Potassium Chloride Carbon Dioxide Anion Gap BUN Creatinine Est Cr Clr Drug Dosing Est GFR ( Amer) Est GFR (Non-Af Amer) BUN/Creatinine Ratio Glucose POC Glucose 140 H 159 H 144 H Calcium Phosphorus Magnesium Total Bilirubin Direct Bilirubin AST ALT Alkaline Phosphatase Total Protein Albumin 04/23/21 20:57 WBC RBC Hgb Hct MCV MCH MCHC RDW Std Deviation RDW Coeff of Sumaya Plt Count MPV Immature Gran % (Auto) Neut % (Auto) Lymph % (Auto) [place]berry % (Auto) Eos % (Auto) Baso % (Auto) Neut # (Auto) Lymph # (Auto) [place] # (Auto) Eos # (Auto) Baso # (Auto) Immature Gran # (Auto) PT INR APTT PTT Ratio Sodium Potassium Chloride Carbon Dioxide Anion Gap BUN Creatinine Est Cr Clr Drug Dosing Est GFR ( Amer) Est GFR (Non-Af Amer) BUN/Creatinine Ratio Glucose POC Glucose 104 H Calcium Phosphorus Magnesium Total Bilirubin Direct Bilirubin AST ALT Alkaline Phosphatase Total Protein Albumin PG Care Time/CCT Total # of Minutes Spent Total Time Spent with Patient: Total time spent is greater than 50% in coordination of care (as documented) at patient's floor/unit and/or counseling patient: Coding Level of Care Code 18749 Subseq Hosp Care Lvl 3 Diagnoses Acute CVA (cerebrovascular accident) I63.9 Stenosis of left vertebral artery I65.02 Stenosis of left internal carotid artery I65.22 Received intravenous tissue plasminogen activator (tPA) in emergency department Z92.82 Stage 3b chronic kidney disease N18.3 Immunosuppression due to drug therapy Z79.899 Hypertension I10 Hypertension type: essential hypertension Hypothyroidism E03.9 Hypothyroidism type: unspecified Hyperlipidemia E78.5 Diabetes mellitus type II, controlled E11.9; Z79.4 Diabetes mellitus complication status: without complication Diabetes mellitus halfway insulin use: with adjunct faculty for medical terminology use Rheumatoid arthritis M06.9 Rheumatoid arthritis location: multiple sites Rheumatoid factor presence: unspecified presence Anxiety F41.9 (1) Rheumatoid arthritis Rheumatoid arthritis location: multiple sites Rheumatoid factor presence: unspecified presence Qualified Code(s): M06.9 - Rheumatoid arthritis, unspecified (2) Hypothyroidism Hypothyroidism type: unspecified Qualified Code(s): E03.9 - Hypothyroidism, unspecified (3) Diabetes mellitus type II, controlled Diabetes mellitus complication status: without complication Diabetes mellitus halfway insulin use: with halfway use Qualified Code(s): E11.9 - Type 2 diabetes mellitus without complications; Z79.4 - manager terminal (current) use of insulin (4) Hypertension Hypertension type: essential hypertension Qualified Code(s): I10 - Essential (primary) hypertension
[2021-04-24] MEDS: LEVOTHYROXINE SODIUM 100 MCG TABLET PO SCH (05:38)
[2021-04-24 07:06] LABS: Basophils # (auto) 0.04 K/uL (0-0.2); Basophils % (auto) 0.4 %; Eosinophils # (auto) 0.21 K/uL (0-0.5); Eosinophils % (auto) 2.3 %; Hematocrit (blood only) 40.5 % (37-47); Hemoglobin 12.7 g/dL (12.0-16.0); Immature Granulocytes # (auto) 0.07 K/uL (0.00-0.02); Immature Granulocytes % (auto) 0.8 %; Lymphocytes % (auto) 18.9 %; Mean Corpuscular Hemoglobin 29.2 pg (25-34); Mean Corpuscular Hgb Conc 31.4 g/dL (32-36); Mean Corpuscular Volume 93.1 fL (80-100); Mean Platelet Volume 10.2 fL (7.4-10.4); Neutrophils # (auto) 6.09 K/uL (1.4-6.5); Neutrophils % (auto) 67.6 %; Platelet Count 287 K/uL (130-400); RDW Coefficient of Variation 14.1 % (11.5-14.5); RDW Standard Deviation 48.4 fL (36.4-46.3); Red Blood Count 4.35 M/uL (4.2-5.4); White Blood Count 9.01 K/uL (4.8-10.8)
[2021-04-24 07:20] LABS: Partial Thromboplastin Ratio 0.8; Partial Thromboplastin Time 21.9 Seconds (21.0-31.0); Prothrombin Time 9.9 Seconds (9.0-12.0)
[2021-04-24 07:43] LABS: Alanine Aminotransferase 34 U/L (12-78); Albumin Level 3.2 gm/dl (3.4-5.0); Aspartate Aminotransferase 19 U/L (15-37); BUN Creatinine Ratio 18.2 (10-20); Blood Urea Nitrogen 23 mg/dl (7-18); Calcium 9.2 mg/dl (8.5-10.1); Carbon Dioxide 28 mmol/L (21-32); Chloride 104 mmol/L (98-107); Creatinine Clr Calc Pharmacy 45.2 ml/min; Est GFR (African American) 50.4 ml/min; Est GFR (Non-African American) 43.5 ml/min; Glucose 146 mg/dl (70-99); Magnesium 2.2 mg/dl (1.8-2.4); Potassium 3.7 mmol/L (3.5-5.1); Sodium 138 mmol/L (136-145)
[2021-04-24 07:49] LABS: Alkaline Phosphatase 64 U/L (45-117); Bilirubin Direct < 0.1 mg/dl (0-0.2); Bilirubin,Total 0.7 mg/dl (0.2-1); Phosphorus 4.1 mg/dl (2.5-4.9)
[2021-04-24] MEDS: INSULIN ASPART 100 UNITS/ML 3 ML PEN SC SCH ×2 (08:39→13:07)
[2021-04-24] MEDS: predniSONE 5 MG TAB PO SCH (08:41)
[2021-04-24] MEDS: ASPIRIN 81 MG ECTAB PO SCH (08:41)
[2021-04-24] MEDS: FAMOTIDINE 20 MG TAB PO SCH (08:41)
[2021-04-24] MEDS ORDERED: lisinopril 10 MG TAB PO SCH (09:00)
[2021-04-24] MEDS ORDERED: busPIRone 5 MG TAB PO PRN (09:33)
[2021-04-24] MEDS ORDERED: STROKE PATIENT DISCHARGE STA (13:44)
--- NOTE | 2021-04-24 13:56 | Discharge Summary ---
Date of Service date of admission - April 21, 2021 date of discharge - April 24, 2021 Admission HPI Per Admitting Provider The patient is a 66-year-old female with a past medical history including MRSA infection, traumatic open wound of left lower leg, stage IIIb CKD, chronic anemia, immunosuppression due to drug therapy for rheumatoid arthritis, hypertension, hypothyroidism, hyperlipidemia, diabetes mellitus type 2, peripheral neuropathy, vitamin D deficiency, and recurrent UTI who presents with complaints of difficulty walking, facial numbness, and blurred vision. Symptoms began around 11:00 AM - 99 minutes prior to ED assessment. Patient was initially assessed as a stroke alert by the ED, and after negative CT of head was obtained, stroke alert consult with [facility] advised TPA, which was administered in the ED. She was subsequently admitted to the ICU. Principal Diagnosis acute thrombotic stroke s/p TPA Discharge Exam Constitutional well developed and well nourished; no acute distress and no altered mental status ENMT external ear and nose normal, oropharynx normal Respiratory normal respiratory effort, lungs clear to auscultation Cardiovascular RRR, no murmur, no edema Heart Sounds: normal S1 and normal S2 Vessels: posterior tibial pulses present and dorsalis pedis pulses present; no JVD Gastrointestinal (Abdomen) normal bowel sounds, soft, nontender, no hepatosplenomegaly Neurologic moves all extremities; no focal motor deficits Speech / Cognition: normal speech Gait: no ataxic gait Coordination: normal [id number] test Psychiatric Orientation: alert and oriented x 3 Affect: + anxious affect Discharge Data Allergies Allergy/AdvReac Type Severity Reaction Status Date / Time nitrofurantoin Allergy Severe HEADACHE Verified 05/01/21 13:52 tetracycline Allergy Severe RASH ON Verified 05/01/21 13:52 FACE Tfqoxva-Yxd-Lfr Reductase AdvReac Intermediate LE edema Verified 05/01/21 13:52 Inhibitor oxycodone AdvReac Drowsy Verified 05/01/21 13:52 Consultations [facility] PT, OT Speech therapy Procedures Performed Echocardiogram: * EF 60-65% * grade 1 diastolic dysfunction * moderate LVH * no valvular disease * no inter-atrial shunt Ordered Studies Head CT 04/21/21 12:39 CT head/brain wo con CLINICAL HISTORY: Stroke Like Symptoms COMPARISON STUDY: April 15, 2019. TECHNIQUE: Axial CT of the brain is performed from the vertex to the skull base. IV contrast was not administered for this examination. A dose lowering technique was utilized adhering to the principles of ALARA. CT DOSE: FINDINGS: No intra or extra-axial mass lesions are visualized. There is no CT evidence of acute cortical infarction. There is no evidence of midline shift. There is no acute hemorrhage. No acute depressed calvarial fractures are visualized. There are patchy white matter hypodensities likely on a small vessel basis. Mild diffuse atrophic changes of brain parenchyma are seen and associated with ex vacuo dilatation of ventricles. There is no evidence of acute sinusitis IMPRESSION: No acute intracranial hemorrhage, no midline shift or space occupying lesions. ACT 112: Negative or not required by law. The above report was generated using voice recognition software. It may contain grammatical, syntax or spelling errors. Electronically signed by: Mini Lynne DO 04/21/2021 1:07 PM Head CTA 04/21/21 12:39 CT angio head w con CLINICAL HISTORY: Stroke Like Symptoms TECHNIQUE: CT angiography of the head was performed in a dynamic helical fashion during intravenous administration of 118 cc of Optiray. MIP imaging was performed. A dose lowering technique was utilized adhering to the principles of ALARA. CT DOSE: COMPARISON STUDY: No previous studies for comparison. FINDINGS: Minimal atherosclerotic involvement of distal portion of bilateral ICA seen without hemodynamically significant stenosis. Bilateral MCA and RU are patent as well as right and left anterior communicating arteries. Basilar artery is normal in caliber and patent. Right posterior cerebral artery is normally opacified throughout its course. There is partial origin of the left posterior cerebral artery which is normally opacified throughout its course. IMPRESSION: No evidence of focal occlusion, significant stenosis or aneurysmal dilatation of intracranial arteries as detailed above. ACT 112: Negative or not required by law. The above report was generated using voice recognition software. It may contain grammatical, syntax or spelling errors. Electronically signed by: Mini Lynne DO 04/21/2021 1:48 PM Neck CTA 04/21/21 12:39 CT angio neck with con CLINICAL HISTORY: Stroke Like Symptoms COMPARISON STUDY: No previous studies for comparison. TECHNIQUE: CT angiography was performed from the aortic arch to the skull base. MIP imaging was performed. The patient was scanned in a dynamic helical fashion during intravenous administration of 118 cc of Optiray. A dose lowering technique was utilized adhering to the principles of ALARA. CT DOSE: 1085.54 mGy.cm Technique: CT angiogram of the carotid and vertebral arteries was obtained using intravenous contrast and 3-D reconstruction. NASCET criteria was utilized. Findings: Mild atherosclerotic involvement of bilateral carotid involvement. Heavily calcified plaques are seen within proximal aspect of the left internal carotid artery and associated with 50-69% stenosis (6/239). Right ICA is patent throughout its course. Distal aspect of the left ICA is patent. Proximal and midportion of the right and left vertebral arteries are normally opacified and patent. Eccentric calcified plaque is seen within V4 segment of the right vertebral artery and shows no evidence of hemodynamically significant stenosis. Heavily calcified plaque is seen within V4 segment of the left vertebral artery associated with approximately 90% stenosis however evaluation is limited due to blooming artifact from heavily calcified plaque (6/303) There is no evidence of vertebral dissection. Partial opacification of the right maxillary sinus with osseous remodeling of its wall is seen and most likely represent chronic sinusitis. IMPRESSION: 1. Atherosclerotic involvement of bilateral carotid and vertebral arteries. Approximately 90% stenosis within V4 segment of the left vertebral artery. Results will be called to emergency Department. 2. 50-69% stenosis within proximal aspect of the left internal carotid artery. 3. Sinusitis. ACT 112: Negative or not required by law. The above report was generated using voice recognition software. It may contain grammatical, syntax or spelling errors. Electronically signed by: Mini Lynne DO 04/21/2021 1:43 PM Brain MRI 04/21/21 14:12 MRI OF THE BRAIN WITHOUT CONTRAST CLINICAL HISTORY: cva COMPARISON STUDY: August 07, 2009 FINDINGS: Sagittal T1, axial diffusion, proton density and T2 weighted axial, coronal FLAIR, and axial T1-weighted images were acquired. No intra or extra-axial mass lesions are visualized Punctate area of high signal on DWI sequence (series 4 image 5) shows mild drop signal on ACD map and slight increase signal on T2 FLAIR coronal sequence, represent punctate focus or restricted diffusion/ischemia. No other areas of restricted diffusion are seen. Mild diffuse atrophic changes of brain parenchyma associated with slight ventricular dilatation of ventricles. Proton density T2-weighted and FLAIR images reveal patchy areas of increase signal within periventricular and subcortical white matter likely representing chronic small vessel ischemia. There are no abnormal flow voids. Fluid signal is seen within the right maxillary sinus likely representing sinusitis. IMPRESSION: 1. Questionable punctate focus of restricted diffusion within left cerebellar lobe which also shows slightly high T2 FLAIR signal might represent developing lacunar infarct or artifact. Findings will be called to emergency Department. 2. Sinusitis. 3. Chronic small vessel ischemia. 4. Atrophic changes of brain parenchyma associated with ex vacuo dilatation of ventricles. ACT 112: Negative or not required by law. The above report was generated using voice recognition software. It may contain grammatical, syntax or spelling errors. Electronically signed by: Mini Lynne DO 04/21/2021 4:[address] 04/22/21 14:22 CT head/brain wo con CLINICAL HISTORY: 66 years-old Female with 24 HOURS AFTER tPA. Follow-up study in a patient with acute strokelike symptoms TECHNIQUE: Multiple axial CT images of the head were obtained without contrast. A dose lowering technique was utilized adhering to the principles of ALARA. CT DOSE: 537.48 mGy.cm COMPARISON: Brain MRI and head CT 04/21/2021 FINDINGS: No acute intracranial hemorrhage, midline shift, intracranial mass, hydrocephalus, territorial ischemia or abnormal extra-axial collection. Mild involutional changes. Mild white matter hypodensities suggestive of chronic microvascular ischemic disease. Posterior fossa structures are not well visualized secondary to streak artifact. Senescent calcifications of the basal ganglia. The calvarium is intact. Mucoperiosteal thickening of the right maxillary sinus is partially imaged. The mastoid air cells are clear. Unremarkable soft tissues and orbits. IMPRESSION: No acute intracranial abnormality. ACT 112: Negative or not required by law. The above report was generated using voice recognition software. It may contain grammatical, syntax or spelling errors. Electronically signed by: Darwin Cohen M.D. 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 s/p TPA at time of ER presentation. During her stay her diplopia, ataxia, etc all resolved. Patient has multiple risk factors for CVA including diabetes mellitus, hypertension, and hyperlipidemia. Repeat CT head at 24 hours post-TPA did not show hemorrhagic conversion. Peguero recommendations were made by [facility] Neurology while here. Aspirin 81mg daily initiated for secondary CVA prevention as advised by neurology. Lipitor 80mg daily also initiated for cholesterol control and secondary prevention. LDL was 205 on lipid profile. Echo w/o source of thrombus. No PAF seen on telemetry while hospitalized. Patient was evaluated by PT, OT, and speech therapy - rehab was not advised given relatively few deficits, if any, at time of discharge. Finally, the patient had uncontrolled HTN and BP medication adjustments were made during her stay. Further, she was advised to resume metformin for type 2 diabetes. Additional recommendations - * f/u with [facility] Neurology 3-4 weeks post-discharge * f/u with penology teacher for full eye exam given her recent diplopia * f/u with neuro-vascular for her vertebral artery disease (2) Stenosis of left vertebral artery: See above Advise neuro-vascular evaluation on nonurgent basis at [facility] [address] or [facility] following discharge (3) Stenosis of left internal carotid artery: 50-69% left ICA stenosis. Will need outpatient surveillance of this on regular basis. Cont statin. Cont asa. (4) Received intravenous tissue plasminogen activator (tPA) in emergency department: for acute stroke as above (5) Stage 3b chronic kidney disease: Creatinine stable; Cr 1.2 to 1.4 while here (baseline). Baseline CrCl 30s/40s. (6) Immunosuppression due to drug therapy: Continue oral prednisone 5 mg daily for RA. She is s/p stress doses of IV steroid this admission. (7) Hypertension: Cont metoprolol succinate 50mg BID. Cont lisinopril 20mg BID. Patient asked to check BPs on regular basis at home. (8) Hypothyroidism: cont levothyroxine TSH wnl (9) Hyperlipidemia: Continue high dose atorvastatin 80 mg PO hs. LDL >200 on lipid profile. Recommend coenzyme q10 supplement for prevention of myalgias. (10) Diabetes mellitus type II, controlled: Hba1c 7.5%. Given her stroke and need for risk factor reduction I advised initiation of metformin 500mg BID w/ meals after d/c. (11) Rheumatoid arthritis: cont prednisone controlled and w/o recent flare of note - because of chronic prednisone and now initiation of aspirin I recommended omeprazole 40mg daily for GI prophylaxis. (12) Anxiety: Significant anxiety observed during her stay which likely worsened her BPs at time. Given a trial of buspar 5mg and she did not have any side effects. Prescription for same given at discharge. Total Time Total Time Spent Total Time Spent (In Minutes): 50 Discharge Plan Discharge Items Patient Disposition: Home - Self-Care Reason For Visit: Double vision, difficulty walking Discharge Diagnosis: 1. stroke - improved following TPA ("clot-busting medication") 2. left vertebral artery stenosis - this was the likely culprit for your stroke 3. severely elevated cholesterol 4. type 2 diabetes - mild 5. internal carotid artery stenosis on left - 50-69% blockage Activity: As commented below Activity Comment: light activities for about 2 weeks; no strenuous activity Bathing: No limitations Sexual Activity: Wait until after follow-up appointment Exercise/Sports: Wait until after follow-up appointment Driving/Machine Use: no driving until seen by Dr Arzola's office Non-emergency contact: Primary Care Provider and Neurologist Call non-emergency contact if: you have any medication questions and your symptoms worsen Follow-up/Referrals: Corby Arzola MD [Primary Care Provider] - 05/01/21 1:45 pm (within 1 week) Ki Rodriguez MD [Physician] - 08/09/21 2:00 pm (3-4 weeks; dx - stroke ) Diet: Carb Consistent or DM2 and Heart Healthy Addtl Attending Provider Instructions: Mrs Champagne, Crow were admitted to [facility] after suffering a stroke. You were deemed a good candidate for TPA and you received this shortly after your arrival. It appears that this clot-busting medication worked well as your symptoms have improved nicely while hospitalized. You underwent a stroke work-up which revealed a blocked "vertebral artery" on the left side of the back of the neck. This likely caused your stroke. Atherosclerosis/plaque build-up caused the blocked artery. We also found a partial blockage in the left internal carotid artery. Controlling your high cholesterol will be vital to preventing any progression of the found blockages and atherosclerosis in general. You were seen by [facility] who recommended cholesterol medication and aspirin every day to protect against a future stroke. Your echocardiogram as done as part of your stroke work-up was normal. Pt, Ot, and speech therapy saw you and you do not need any therapy following discharge. We are recommending a full eye exam with Dr Miller for the recent double vision and the location of the stroke. Recommendations - 1. aspirin 81mg once daily every day. 2. atorvastatin 80mg once daily every day for cholesterol. 3. restart metformin 500mg twice daily with meals for diabetes. Your hemo globin a1c was 7.5%. 4. increase your omeprazole to 40mg once daily now that you are taking aspirin. This will help prevent stomach ulcers. 5. blood pressure meds - * use split dosing of both lisinopril and metoprolol * take 20mg twice daily of lisinopril * take 50mg twice daily of metoprolol 6. check your blood sugars once a day at different times day-to-day. 7. check your blood pressure once or twice a day. Remember to be comfortable & sitting for 20 min prior to checking it. 8. Ideally your systolic BP (top number) is about 140-150 over the next several days with gradual reduction to <140 over the next 1-[address] Miller - first available appointment 10. see Dr Rodriguez and Dr Arzola (3-[address] Rodriguez, within a week for Dr Arzola) 11. take aold-nbm-qyigflr coenzyme q10 200mg once a day; if you can't find 200mg simply take 100mg; this may help reduce muscle cramps, etc from the cholesterol medication Return to any hospital if -- * you are having any symptoms of a new stroke as listed below * you are having chest pains or shortness of breath * any other concerns Best wishes for a speedy recovery, Dr Jannette Lin Bit Sander Provider Instructions: STROKE INSTRUCTIONS - Risk Factors for Stroke: You can reduce your chances of stroke by working with your medical provider to adopt a healthy lifestyle. Some specific ways to lower your chance of stroke are: * If you are a smoker, now is the time to stop smoking cigarettes * If you are diabetic, improve the control of your blood sugars * Avoid excessive amounts of alcohol * Control high blood pressure * Lose weight if you are overweight * Be sure to lead an active lifestyle * Eat a healthy diet low in salt, cholesterol and fat You should know about other risk factors for stroke that you are unable to control. These include: * Age 55 years or older * Male gender * Certain racial groups: , or / * Family History of Stroke, Mini stroke or Heart Attack * Sickle Cell Disease Follow Up: It is important for you to keep your follow up appointments with your medical provider. Who to Call and When: Medical Emergencies: Call 911 immediately if you experience any of the following warning signs and symptoms of Stroke: * Sudden numbness or weakness of the face, arm or leg, especially on one side of the body * Sudden confusion, trouble speaking or understanding * Sudden trouble seeing in one or both eyes * Sudden trouble walking, dizziness, loss of balance or coordination * Sudden severe headache with no cause Do not delay calling 911 if you experience any warning signs or symptoms of a stroke. Delay in seeking medical attention may affect what treatments can be given to you. . Pending Studies at Discharge: No Stand-Alone Forms: Medications to Prevent Stroke, [facility] [employer], Smoking Cessation Medications and DC Order Prescriptions: New aspirin 81 mg Tablet,Delayed Release (Dr/Ec) 81 mg PO DAILY Qty: 90 RF: 0 metformin 500 mg tablet 500 mg PO BID Qty: 60 RF: 5 atorvastatin [Lipitor] 80 mg tablet 80 mg PO DAILY Qty: 30 RF: 5 coenzyme Q10 200 mg capsule 200 mg PO DAILY Qty: 30 RF: 1 omeprazole 40 mg capsule,delayed release(DR/EC) 40 mg PO DAILY Qty: 30 RF: 5 Continued (DME) Accu-Chek Ida Plus test strp Strip See Rx Instructions .ROUTE .MEDSUPPLY Qty: 200 RF: 2 levothyroxine 100 mcg tablet 100 mcg PO QAM Qty: 90 RF: 3 (DME) blood-glucose meter [Accu-Chek Ida Plus Meter] Misc See Rx Instructions .ROUTE .MEDSUPPLY Qty: 1 RF: 0 magnesium 250 mg Tablet 250 mg PO QAM RF: 0 cholecalciferol (vitamin D3) [Vitamin D3] 1,000 unit Capsule 1,000 unit PO QAM RF: 0 acetaminophen [Tylenol Extra Strength] 500 mg Tablet 1,000 mg PO Q6H PRN (Reason: Pain) RF: 0 cyclobenzaprine 10 mg tablet 10 mg PO DAILY RF: 0 prednisone 5 mg tablet 5 mg PO DAILY RF: 0 Changed metoprolol succinate 50 mg tablet extended release 24 hr 50 mg PO BID Qty: 60 RF: 5 lisinopril 40 mg tablet 20 mg PO BID Qty: 90 RF: 3 Discontinued ferrous sulfate [Feosol] 325 mg (65 mg iron) Tablet 325 mg PO QAM RF: 0 No Action gabapentin [Neurontin] 100 mg capsule 100 mg PO .at bedtime Qty: 30 RF: 2 Discharge Orders: Discharge Order (Routine); Ordered 04/24/21 Ordered By: Adam Leon/Other Patient Handouts: Controlling High Blood Pressure, Cholesterol Lifestyle Changes, ED High Cholesterol, Carotid Artery Disease Admission Data Admit Date/Time: 04/21/21 14:44 Attending Provider: Adam Bhatia Admit Provider: Delta Linares Primary Care Provider: Corby Arzola Other Providers: Jenni Henry ; Ki Rodriguez ; Delta Linares Other Interventions: Discharge Summary Assessment (RN) Last Done: 04/24/21 14:10 Coding Level of Care Code D/C DAY MANAGEMENT >30 MINS Diagnoses Acute CVA (cerebrovascular accident) I63.9 Stenosis of left vertebral artery I65.02 Stenosis of left internal carotid artery I65.22 Received intravenous tissue plasminogen activator (tPA) in emergency department Z92.82 Stage 3b chronic kidney disease N18.3 Immunosuppression due to drug therapy Z79.899 Hypertension I10 Hypertension type: essential hypertension Hypothyroidism E03.9 Hypothyroidism type: unspecified Hyperlipidemia E78.5 Diabetes mellitus type II, controlled E11.9; Z79.4 Diabetes mellitus complication status: without complication Diabetes mellitus nursing home insulin use: with nursing home use Rheumatoid arthritis M06.9 Rheumatoid arthritis location: multiple sites Rheumatoid factor presence: unspecified presence Anxiety F41.9
--- NOTE | 2021-04-24 15:13 | Pharmacy Report ---
Pharmacist Stroke Counseling - Date of Service April 24, 2021 - Scope: Pharmacy has been consulted to provide medication discharge counseling for this patient admitted with ischemic stroke as per the Pharmacist Discharge Counseling for Stroke Patients Protocol. - Medications on Discharge: Home Medications Medication Instructions Recorded Confirmed cholecalciferol (vitamin D3) 1,000 unit PO QAM 10/26/18 03/28/21 [Vitamin D3] magnesium 250 mg PO QAM 10/26/18 03/28/21 acetaminophen [Tylenol Extra 1,000 mg PO Q6H PRN 12/24/18 03/28/21 Strength] cyclobenzaprine 10 mg PO DAILY 04/21/21 04/21/21 prednisone 5 mg PO DAILY 04/21/21 04/21/21 New Rx's Medication Instructions Recorded blood-glucose meter #1 ea 12/03/19 blood sugar diagnostic #200 ea 12/08/19 levothyroxine 100 mcg tablet 100 mcg PO QAM #90 tab 08/23/20 aspirin 81 mg PO DAILY #90 tab 04/24/21 atorvastatin [Lipitor] 80 mg PO DAILY #30 tab 04/24/21 buspirone 5 mg PO Q12H PRN #20 tab 04/24/21 coenzyme Q10 200 mg PO DAILY #30 cap 04/24/21 lisinopril 20 mg PO BID #90 tab 04/24/21 metformin 500 mg PO BID #60 tab 04/24/21 metoprolol succinate 50 mg PO BID #60 tab 04/24/21 omeprazole 40 mg PO DAILY #30 cap 04/24/21 - Action: The above medications, specifically ones for stroke treatment/prophylaxis, have been reviewed in detail with the patient and/or patient mortician supplies sales representative(s) prior to discharge. This includes indication, common adverse reactions, drug interactions, and medication administration. Medication counseling has been employed using the teach-back method to ensure understanding. - Outcome: The patient and/or patient mortician supplies sales representative(s) have demonstrated understanding of the medications. Additional comments: - Patient has previously taken aspirin and it was stopped due to GI ulcer - patient is agreeable to new aspirin prescription, especially with increased dose of omeprazole. - Patient also previously took metformin, but it was stopped due to well- controlled HbA1c. Agreeable to taking metformin again now that HbA1c is above 7%. No side effects reported from prior experience. - Patient also previously took a statin, but stopped it due to muscle weakness in her legs. Agreeable to taking new atorvastatin prescription with CoQ-10. Reinforced the importance of this medication given her cholesterol levels and recent stroke. - Patient is understanding of medication changes. - No obvious barriers to medication compliance observed. Thank you for allowing pharmacy to be involved in the care of this patient. Please call [phone] with any additional questions
== END 2021-04-24 16:39 | disposition home or self-care (01) | DRG 62 ==
LOC: ED 12:31 → SUATTDRO 14:44 → 1E 14:44 → 2E 04-22 18:54

== ENCOUNTER 2021-10-04 10:18 | Inpatient (IN) ==
[2021-10-04] MEDS ORDERED: FAMOTIDINE 20MG IV PUSH 20 MG/5 ML SYR IV STA (11:17)
[2021-10-04] MEDS ORDERED: SODIUM CHLORIDE 0.9% 1000ML 2,000 ML IV ONE (11:17)
[2021-10-04] MEDS ORDERED: ACETAMINOPHEN 1,000 MG/100 ML VIAL IV STA (11:17)
[2021-10-04] MEDS ORDERED: ONDANSETRON INJ 2 MG/ML 2 ML VIAL IV STA (11:17)
[2021-10-04] MEDS ORDERED: VANCOMYCIN HCL 2,000 MG in SODIUM CHLORIDE 0.9% 500 ML IV ONE (11:30)
[2021-10-04] MEDS ORDERED: VANCOMYCIN CONSULT ACTIVE PRN ×2 (11:30→20:10)
[2021-10-04] MEDS ORDERED: CEFEPIME 2,000 MG/20 ML VIAL IV STA (11:30)
[2021-10-04 12:07] LABS: Basophils # (auto) 0.01 K/uL (0-0.2); Basophils % (auto) 0.1 %; Hemoglobin 11.8 g/dL (12.0-16.0); Immature Granulocytes # (auto) 0.09 K/uL (0.00-0.02); Immature Granulocytes % (auto) 0.8 %; Lymphocytes # (auto) 1.12 K/uL (1.2-3.4); Lymphocytes % (auto) 9.4 %; Mean Corpuscular Hemoglobin 28.9 pg (25-34); Mean Corpuscular Hgb Conc 31.9 g/dL (32-36); Mean Corpuscular Volume 90.7 fL (80-100); Mean Platelet Volume 9.9 fL (7.4-10.4); Monocytes # (auto) 0.69 K/uL (0.11-0.59); Monocytes % (auto) 5.8 %; Neutrophils % (auto) 83.9 %; Platelet Count 257 K/uL (130-400); RDW Coefficient of Variation 15.4 % (11.5-14.5); RDW Standard Deviation 51.4 fL (36.4-46.3); Red Blood Count 4.08 M/uL (4.2-5.4); White Blood Count 11.91 K/uL (4.8-10.8)
[2021-10-04 12:18] LABS: Base Excess VBG -3.3 mEq/L; HCO3 VBG 23 mmol/L; PCO2 VBG 45 mmHg (38-50); PO2 VBG 23 mmHg; pH VBG 7.33 (7.36-7.41)
[2021-10-04 12:19] LABS: Oxygen Saturation VBG < 60.0 %
[2021-10-04 12:20] LABS: Partial Thromboplastin Time 27.3 Seconds (21.0-31.0); Prothrombin Time 9.8 Seconds (9.0-12.0)
--- NOTE | 2021-10-04 12:29 | Emergency Department Note ---
Impression & Plan Pneumonia due to COVID-19 virus, Urinary tract infection, Hypoxia, CKD (chronic kidney disease) ED Provider Note NAME: MAGY LILLY AGE: 66 SEX: F ARRIVES VIA: Ambulance INFORMANT: Patient ED PROVIDER(S): Robert Figueroa MD CHIEF COMPLAINT: Feverish, urinary symptoms. PLAN: Disposition: Admit MEDICAL DECISION MAKING: The patient is a pleasant 66-year-old woman with a past medical history of recurring UTIs and urosepsis who presents to the emergency department coming by her for feverishness, body aches and urinary burning. The patient reports initially feeling flulike symptoms starting a week ago following her COVID-19 booster where she had some mild congestion as did her who also had the booster. While her symptoms resolved her symptoms persisted and then a couple of days ago she began to have urinary burning and increased body aches. She denies objective fevers. She reports feeling some nausea but denies vomiting. She denies diarrhea. She has blood in her urine. She denies any known COVID-19 exposures. On arrival the patient is uncomfortable, ill-appearing, febrile to 39.0 with heart rate in the 140s, and blood pressure stable. The patient's O2 saturation was in the low 80s on room air. She was placed on 2 L nasal cannula and improved to the mid 90s. She has rhonchi of bilateral lower lung mitchell and was clear apically. Her abdomen is benign. EKG without overt acute ischemia. CXR c/w multifocal pna. WBC 11.9K, nonspecific. H/H 11.8/37, similar to prior. Platelets within normal limits. VBG is unremarkable. Chemistry without significant metabolic acidosis. Bicarb is 19 with BUN of 39 consistent with the patient's clinically dry appearance. Creatinine 1.9 on the higher end of the patient's prior range of values in the setting of CKD. BUN/creatinine> 20. Lactic acid 1.6, within normal limits. AST is mildly elevated, nonspecific. LFTs otherwise unremarkable. Troponin negative/undetectable. Procalcitonin is elevated at 1.8 but in the setting of the patient CKD. UA is suspicious for infection with positive nitrites, leukoesterase and WBCs with 2+ bacteria. Empiric ABX given with Cefepime and Vancomycin given h/o Pseudomonas wound culture and MRSA carrier. Patient's COVID-19 PCR was positive. Given Decadron. Thus, given the patient's hypoxia in the setting of COVID-19 pneumonia as well as suspicion for underlying sepsis possibly related to UTI the patient agrees with plan for admission. HR improving. Case was d/w DWAYNE Gaitan PAC with [facility] hospitalist who will evaluate the patient for admission. Triage Nursing notes reviewed and agree them. Prior medical records reviewed Vital Signs: reviewed and remarkable for tachycardia. Differential diagnosis: Sepsis, UTI, pneumonia, metabolic, electrolyte abnormalities, cardiac sources, intracerebral event, toxicologic, neurologic, as well as other pathologies. ER treatment provided: See below. Diagnostics interpreted by me: ECG: Sinus tachycardia, 128 bpm, no ectopy, no overt ST elevation or depression, QTC 417, QRS 66. Cardiac Monitoring: An order for continuous cardiac monitoring was placed and demonstrated Sinus tachycardia, 128 bpm, no ectopy. Laboratory studies: See below Imaging studies: See below Consultation(s): Case was d/w DWAYNE Gaitan PAC with [facility] hospitalist who will evaluate the patient for admission. HPI: The patient is a pleasant 66-year-old woman with a past medical history of recurring UTIs and urosepsis who presents to the emergency department coming by her for feverishness, body aches and urinary burning. The patient reports initially feeling flulike symptoms starting a week ago following her COVID-19 booster where she had some mild congestion as did her who also had the booster. While her symptoms resolved her symptoms persisted and then a couple of days ago she began to have urinary burning and increased body aches. She denies objective fevers. She reports feeling some nausea but denies vomiting. She denies diarrhea. She has blood in her urine. She denies any known COVID-19 exposures. ROS: See above HPI for pertinent positives & negatives. A total of 10 systems reviewed and were otherwise negative. PAST MEDICAL HISTORY:See Below PAST SURGICAL HISTORY:See Below FAMILY HISTORY:See Below SOCIAL HISTORY:See Below HOME MEDICATIONS:See Below ALLERGIES:See Below VITALS:See Below PHYSICAL EXAMINATION: GENERAL: Awake, alert, ill-appearing, in no distress HENT: Normocephalic, atraumatic. Oropharynx with dry/cracked mucous membranes and otherwise unremarkable. EYES: Normal conjunctiva. Sclera non-icteric. NECK: Supple. No nuchal rigidity. FROM. No JVD. RESPIRATORY: Rhonchi of bilateral lower lung mitchell and clear apically. CARDIAC: Tachycardic rate, normal rhythm. Extremities cool, Mild mottling with delayed capillary refill. Pulses equal. ABDOMEN: Soft, non-distended. No tenderness to palpation. No rebound or guarding. No masses. RECTAL: Deferred. MUSCULOSKELETAL: Chest examination reveals no tenderness. The back is symmetrical on inspection without obvious abnormality. There is no CVA tenderness to palpation. No joint edema. LOWER EXTREMITIES: Calves are equal size bilaterally and non-tender. No edema. No discoloration. NEURO: Normal sensorium. No sensory or motor deficits noted. SKIN: No rash or jaundice noted. ED COURSE: Critical Care: I have personally spent greater than 95 minutes of critical care time in the direct management of this patient. This includes bedside care, interpretation of diagnostic studies, and testing, discussion with consultants, patient, and family members, and other required patient management activities. This 95 minutes is in excess of all separately billable procedures. Robert Figueroa MD Past Med/Surg History Medical History Bilateral leg edema Colitis Diabetes mellitus type II, controlled History of campylobacteriosis 04/2019 ([facility]) s/p antibiotics treatment History of MRSA infection lumbar surgical incision s/p vanco/ceftriaxone/bactrim per 04/2019 [facility] discharge summary Hyperlipidemia Hypertension Hypothyroidism Immunosuppression due to drug therapy Lower GI bleed Lumbar radiculopathy Nonhealing surgical wound Rheumatoid arthritis Spinal stenosis Tachycardia Surgical History History of back surgery History of x2 History of hysterectomy total History of total left knee replacement Hx of tonsillectomy Status post laminectomy with spinal fusion L2-L5 laminectomy/fusion: 12/24/18: Grade view 1, MAC#3, ETT 7.0 Family History Father Diabetes Lung cancer Cancer Hypertension Mother Diabetes Brain tumor Cancer Hypertension Malignant neoplasm of brain Aunt Breast cancer Denies family history of Ovarian cancer Prostate cancer Myocardial infarction Colorectal cancer Social History Smoking Status: Never smoker Second Hand Exposure: No; Hx Alcohol Use: No Hx Substance Use: No Preferred Language: Georgian Communication Ability: Effective Visual Impairment: Limited Hearing Ability: Normal Commercial Artist Required: No Beliefs That Will Affect Care: None marital status: Current Living Situation: Spouse current occupational status: retired How many Children do You have: 2 Other Information That Helps Us Care for You: No 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 Feels Safe at Home: Yes Safety Concerns: Feels Safe At This Time Childhood Exposure to Second-Hand Smoke: Yes caffeine: Yes Dental Care, Regularly: Yes Physical Activity Frequency: 5-6 Times per Week Physical Activity Frequency Comment: gym Seatbelt Use: always Sunscreen Use: Yes Do you think of yourself as: straight/heterosexual Assistive Devices: Oxygen - Continuous Allergies Allergies Allergy/AdvReac Type Severity Reaction Status Date / Time nitrofurantoin Allergy Severe HEADACHE Verified 10/04/21 13:41 tetracycline Allergy Severe RASH ON Verified 10/04/21 13:41 FACE [id number] Reductase AdvReac Intermediate LE edema Verified 10/04/21 13:41 Inhibitor [Ygdincx-Xjj-Sic Reductase Inhibitor] oxycodone AdvReac Drowsy Verified 10/04/21 13:41 Home Meds Home Medications Medication Instructions Recorded Confirmed cholecalciferol (vitamin D3) 25 1,000 unit PO QAM 10/26/18 10/04/21 mcg (1,000 unit) capsule (Vitamin D3) magnesium 250 mg tablet 250 mg PO QAM 10/26/18 10/04/21 acetaminophen 500 mg tablet 1,000 mg PO Q6H PRN 12/24/18 10/04/21 (Tylenol Extra Strength) cyclobenzaprine 10 mg tablet 10 mg PO DAILY 04/21/21 10/04/21 prednisone 5 mg tablet 5 mg PO DAILY 04/21/21 10/04/21 Previous Rx's Medication Instructions Recorded blood-glucose meter (Accu-Chek #1 ea 12/03/19 Ida Plus Meter) blood sugar diagnostic (Accu-Chek #200 ea 12/08/19 Ida Plus test strp) aspirin 81 mg tablet,delayed 81 mg PO DAILY #90 tab 04/24/21 release coenzyme Q10 200 mg capsule 200 mg PO DAILY #30 cap 04/24/21 metformin 500 mg tablet 500 mg PO BID #60 tab 04/24/21 omeprazole 40 mg capsule,delayed 40 mg PO DAILY #30 cap 04/24/21 release lisinopril 40 mg tablet 40 mg PO DAILY #90 tab 05/24/21 alirocumab 75 mg/mL subcutaneous 75 mg SUBCUT Q14D #2 ml 05/28/21 pen injector (Praluent Pen) metoprolol succinate 50 mg 125 mg PO DAILY #75 tab 07/16/21 tablet,extended release 24 hr trimethoprim 100 mg tablet 100 mg PO DAILY 30 Days #30 tab 08/21/21 gabapentin 100 mg capsule 100 mg PO BID #60 cap 08/30/21 levothyroxine 100 mcg tablet 100 mcg PO QAM #90 tab 09/03/21 sulfamethoxazole 800 1 tab PO BID 2 Days #4 tab 09/24/21 mg-trimethoprim 160 mg tablet (Bactrim DS) Results & Data (ED) Vital Signs Vital Signs - 24 hr 10/04/21 10:45 10/04/21 11:26 10/04/21 11:33 Temperature 37.8 C H Temperature Source Oral Pulse Rate 140 H 134 H 138 H Pulse Rate [Left Finger] Pulse Rhythm Regular Regular Regular Pulse Rhythm [Left Finger] Pulse Strength [Left Finger] Respiratory Rate 24 28 H 28 H Respiratory Effort / Characteristics Non-Labored Respiratory Depth Normal Blood Pressure [Left Arm] Blood Pressure Mean [Left Arm] Blood Pressure Position Sitting Blood Pressure Position [Left Arm] Pulse Oximetry 88 L 95 Oxygen Delivery Method Room Air Nasal Cannula Oxygen Flow Rate 4 Sepsis Recent Fever Within 48 Hours No Sepsis New/Unexplained Change in Mental Status No Sepsis Action Taken by Nursing No Action Required 10/04/21 12:00 10/04/21 12:04 10/04/21 13:06 Temperature 39.0 C H 37.8 C H Temperature Source Oral Oral Pulse Rate Pulse Rate [Left Finger] 132 H Pulse Rhythm Pulse Rhythm [Left Finger] Regular Pulse Strength [Left Finger] Normal Respiratory Rate 18 16 Respiratory Effort / Characteristics Non-Labored Spontaneous Non-Labored Spontaneous Non-Labored Spontaneous Respiratory Depth Normal Normal Blood Pressure [Left Arm] 127/72 118/75 Blood Pressure Mean [Left Arm] 90 89 Blood Pressure Position Blood Pressure Position [Left Arm] Lying Pulse Oximetry 95 94 95 Oxygen Delivery Method Nasal Cannula Nasal Cannula Nasal Cannula Oxygen Flow Rate 2 2 2 Sepsis Recent Fever Within 48 Hours Sepsis New/Unexplained Change in Mental Status Sepsis Action Taken by Nursing Laboratory Data Attestation: I reviewed the patient's lab results. Result diagrams: 10/04/21 11:53 10/04/21 11:53 Lab Results 10/04/21 10/04/21 10/04/21 Range/Units 11:45 11:53 11:53 WBC 11.91 H (4.8-10.8) K/uL RBC 4.08 L (4.2-5.4) M/uL Hgb 11.8 L (12.0-16.0) g/dL Hct 37.0 (37-47) % MCV 90.7 (80-100) fL MCH 28.9 (25-34) pg MCHC 31.9 L (32-36) g/dL RDW Std Deviation 51.4 H (36.4-46.3) fL RDW Coeff of [place] 15.4 H (11.5-14.5) % Plt Count 257 (130-400) K/uL MPV 9.9 (7.4-10.4) fL Immature Gran % (Auto) 0.8 % Neut % (Auto) 83.9 % Lymph % (Auto) 9.4 % Preston % (Auto) 5.8 % Eos % (Auto) 0.0 % Baso % (Auto) 0.1 % Neut # (Auto) 10.00 H (1.4-6.5) K/uL Lymph # (Auto) 1.12 L (1.2-3.4) K/uL Preston # (Auto) 0.69 H (0.11-0.59) K/uL Eos # (Auto) 0.00 (0-0.5) K/uL Baso # (Auto) 0.01 (0-0.2) K/uL Immature Gran # (Auto) 0.09 H (0.00-0.02) K/uL PT 9.8 (9.0-12.0) Seconds INR 1.0 (0.9-1.1) APTT 27.3 (21.0-31.0) Seconds PTT Ratio 1.0 VBG pH (7.36-7.41) VBG pCO2 (38-50) mmHg VBG pO2 mmHg VBG HCO3 mmol/L VBG O2 Saturation % VBG Base Excess mEq/L Barometric Pressure mm/Hg Sodium (136-145) mmol/L Potassium (3.5-5.1) mmol/L Chloride (98-107) mmol/L Carbon Dioxide (21-32) mmol/L Anion Gap (3-11) BUN (7-18) mg/dl Creatinine (0.6-1.2) mg/dl Est Cr Clr Drug Dosing ml/min Est GFR ( Amer) ml/min Est GFR (Non-Af Amer) ml/min BUN/Creatinine Ratio (10-20) Glucose (70-99) mg/dl POC Glucose 128 H (70-99) mg/dl Lactate (0.4-2.0) mmol/L Calcium (8.5-10.1) mg/dl Magnesium (1.8-2.4) mg/dl Total Bilirubin (0.2-1) mg/dl AST (15-37) U/L ALT (12-78) Alkaline Phosphatase (45-117) U/L Total Creatine Kinase (26-192) U/L Troponin I (0-0.045) ng/ml C-Reactive Protein (0-0.29) mg/dl Total Protein (6.4-8.2) gm/dl Albumin (3.4-5.0) gm/dl Globulin (2.5-4.0) gm/dl Albumin/Globulin Ratio (0.9-2) Procalcitonin (0-0.5) ng/ml Specimen Hemolysis Urine Color Urine Appearance (Clear) Urine pH (4.5-7.5) Ur Specific [place] (1.000-1.030) Urine Protein (Negative) Urine Glucose (UA) (Negative) Urine Ketones (Negative) Urine Blood (Negative) Urine Nitrite (Negative) Urine Bilirubin (Negative) Urine Urobilinogen (Negative) Ur Leukocyte Esterase (Negative) Urine WBC (Auto) (0-5) /hpf Urine RBC (Auto) (0-4) /hpf U Hyaline Cast (Auto) (0-5) /lpf U Epithel Cells (Auto) (0-5) /lpf Urine Bacteria (Auto) (Negative) SARS-CoV-2 (PCR) (Negative) Influenza Type A (PCR) (Neg) Influenza Type B (PCR) (Neg) RSV (RT-PCR) (Neg) 10/04/21 10/04/21 10/04/21 Range/Units 11:53 11:53 11:53 WBC (4.8-10.8) K/uL RBC (4.2-5.4) M/uL Hgb (12.0-16.0) g/dL Hct (37-47) % MCV (80-100) fL MCH (25-34) pg MCHC (32-36) g/dL RDW Std Deviation (36.4-46.3) fL RDW Coeff of Sumaya (11.5-14.5) % Plt Count (130-400) K/uL MPV (7.4-10.4) fL Immature Gran % (Auto) % Neut % (Auto) % Lymph % (Auto) % Preston % (Auto) % Eos % (Auto) % Baso % (Auto) % Neut # (Auto) (1.4-6.5) K/uL Lymph # (Auto) (1.2-3.4) K/uL [place] # (Auto) (0.11-0.59) K/uL Eos # (Auto) (0-0.5) K/uL Baso # (Auto) (0-0.2) K/uL Immature Gran # (Auto) (0.00-0.02) K/uL PT (9.0-12.0) Seconds INR (0.9-1.1) APTT (21.0-31.0) Seconds PTT Ratio VBG pH (7.36-7.41) VBG pCO2 (38-50) mmHg VBG pO2 mmHg VBG HCO3 mmol/L VBG O2 Saturation % VBG Base Excess mEq/L Barometric Pressure mm/Hg Sodium 134 L (136-145) mmol/L Potassium 4.6 (3.5-5.1) mmol/L Chloride 105 (98-107) mmol/L Carbon Dioxide 19 L (21-32) mmol/L Anion Gap 10.0 (3-11) BUN 39 H (7-18) mg/dl Creatinine 1.90 H (0.6-1.2) mg/dl Est Cr Clr Drug Dosing 32.0 ml/min Est GFR ( Amer) 31.3 ml/min Est GFR (Non-Af Amer) 27.0 ml/min BUN/Creatinine Ratio 20.5 H (10-20) Glucose 124 H (70-99) mg/dl POC Glucose (70-99) mg/dl Lactate 1.6 (0.4-2.0) mmol/L Calcium 9.1 (8.5-10.1) mg/dl Magnesium 2.2 (1.8-2.4) mg/dl Total Bilirubin 0.3 (0.2-1) mg/dl AST 56 H (15-37) U/L ALT 42 (12-78) Alkaline Phosphatase 62 (45-117) U/L Total Creatine Kinase 171 (26-192) U/L Troponin I < 0.015 (0-0.045) ng/ml C-Reactive Protein (0-0.29) mg/dl Total Protein 7.5 (6.4-8.2) gm/dl Albumin 2.7 L (3.4-5.0) gm/dl Globulin 4.8 H (2.5-4.0) gm/dl Albumin/Globulin Ratio 0.6 L (0.9-2) Procalcitonin 1.87 H (0-0.5) ng/ml Specimen Hemolysis Urine Color Urine Appearance (Clear) Urine pH (4.5-7.5) Ur Specific [place] (1.000-1.030) Urine Protein (Negative) Urine Glucose (UA) (Negative) Urine Ketones (Negative) Urine Blood (Negative) Urine Nitrite (Negative) Urine Bilirubin (Negative) Urine Urobilinogen (Negative) Ur Leukocyte Esterase (Negative) Urine WBC (Auto) (0-5) /hpf Urine RBC (Auto) (0-4) /hpf U Hyaline Cast (Auto) (0-5) /lpf U Epithel Cells (Auto) (0-5) /lpf Urine Bacteria (Auto) (Negative) SARS-CoV-2 (PCR) (Negative) Influenza Type A (PCR) (Neg) Influenza Type B (PCR) (Neg) RSV (RT-PCR) (Neg) 10/04/21 10/04/21 10/04/21 Range/Units 11:53 11:53 12:05 WBC (4.8-10.8) K/uL RBC (4.2-5.4) M/uL Hgb (12.0-16.0) g/dL Hct (37-47) % MCV (80-100) fL MCH (25-34) pg MCHC (32-36) g/dL RDW Std Deviation (36.4-46.3) fL RDW Coeff of Sumaya (11.5-14.5) % Plt Count (130-400) K/uL MPV (7.4-10.4) fL Immature Gran % (Auto) % Neut % (Auto) % Lymph % (Auto) % [place] % (Auto) % Eos % (Auto) % Baso % (Auto) % Neut # (Auto) (1.4-6.5) K/uL Lymph # (Auto) (1.2-3.4) K/uL [place] # (Auto) (0.11-0.59) K/uL Eos # (Auto) (0-0.5) K/uL Baso # (Auto) (0-0.2) K/uL Immature Gran # (Auto) (0.00-0.02) K/uL PT (9.0-12.0) Seconds INR (0.9-1.1) APTT (21.0-31.0) Seconds PTT Ratio VBG pH 7.33 L (7.36-7.41) VBG pCO2 45 (38-50) mmHg VBG pO2 23 mmHg VBG HCO3 23 mmol/L VBG O2 Saturation < 60.0 % VBG Base Excess -3.3 mEq/L Barometric Pressure 736.2 mm/Hg Sodium (136-145) mmol/L Potassium (3.5-5.1) mmol/L Chloride (98-107) mmol/L Carbon Dioxide (21-32) mmol/L Anion Gap (3-11) BUN (7-18) mg/dl Creatinine (0.6-1.2) mg/dl Est Cr Clr Drug Dosing ml/min Est GFR ( Amer) ml/min Est GFR (Non-Af Amer) ml/min BUN/Creatinine Ratio (10-20) Glucose (70-99) mg/dl POC Glucose (70-99) mg/dl Lactate (0.4-2.0) mmol/L Calcium (8.5-10.1) mg/dl Magnesium (1.8-2.4) mg/dl Total Bilirubin (0.2-1) mg/dl AST (15-37) U/L ALT (12-78) Alkaline Phosphatase (45-117) U/L Total Creatine Kinase (26-192) U/L Troponin I (0-0.045) ng/ml C-Reactive Protein 18.40 H (0-0.29) mg/dl Total Protein (6.4-8.2) gm/dl Albumin (3.4-5.0) gm/dl Globulin (2.5-4.0) gm/dl Albumin/Globulin Ratio (0.9-2) Procalcitonin (0-0.5) ng/ml Specimen Hemolysis Urine Color Urine Appearance (Clear) Urine pH (4.5-7.5) Ur Specific [place] (1.000-1.030) Urine Protein (Negative) Urine Glucose (UA) (Negative) Urine Ketones (Negative) Urine Blood (Negative) Urine Nitrite (Negative) Urine Bilirubin (Negative) Urine Urobilinogen (Negative) Ur Leukocyte Esterase (Negative) Urine WBC (Auto) (0-5) /hpf Urine RBC (Auto) (0-4) /hpf U Hyaline Cast (Auto) (0-5) /lpf U Epithel Cells (Auto) (0-5) /lpf Urine Bacteria (Auto) (Negative) SARS-CoV-2 (PCR) POSITIVE A* (Negative) Influenza Type A (PCR) Negative (Neg) Influenza Type B (PCR) Negative (Neg) RSV (RT-PCR) Negative (Neg) 10/04/21 Range/Units 15:22 WBC (4.8-10.8) K/uL RBC (4.2-5.4) M/uL Hgb (12.0-16.0) g/dL Hct (37-47) % MCV (80-100) fL MCH (25-34) pg MCHC (32-36) g/dL RDW Std Deviation (36.4-46.3) fL RDW Coeff of [place]aya (11.5-14.5) % Plt Count (130-400) K/uL MPV (7.4-10.4) fL Immature Gran % (Auto) % Neut % (Auto) % Lymph % (Auto) % [place] % (Auto) % Eos % (Auto) % Baso % (Auto) % Neut # (Auto) (1.4-6.5) K/uL Lymph # (Auto) (1.2-3.4) K/uL [place] # (Auto) (0.11-0.59) K/uL Eos # (Auto) (0-0.5) K/uL Baso # (Auto) (0-0.2) K/uL Immature Gran # (Auto) (0.00-0.02) K/uL PT (9.0-12.0) Seconds INR (0.9-1.1) APTT (21.0-31.0) Seconds PTT Ratio VBG pH (7.36-7.41) VBG pCO2 (38-50) mmHg VBG pO2 mmHg VBG HCO3 mmol/L VBG O2 Saturation % VBG Base Excess mEq/L Barometric Pressure mm/Hg Sodium (136-145) mmol/L Potassium (3.5-5.1) mmol/L Chloride (98-107) mmol/L Carbon Dioxide (21-32) mmol/L Anion Gap (3-11) BUN (7-18) mg/dl Creatinine (0.6-1.2) mg/dl Est Cr Clr Drug Dosing ml/min Est GFR ( Amer) ml/min Est GFR (Non-Af Amer) ml/min BUN/Creatinine Ratio (10-20) Glucose (70-99) mg/dl POC Glucose (70-99) mg/dl Lactate (0.4-2.0) mmol/L Calcium (8.5-10.1) mg/dl Magnesium (1.8-2.4) mg/dl Total Bilirubin (0.2-1) mg/dl AST (15-37) U/L ALT (12-78) Alkaline Phosphatase (45-117) U/L Total Creatine Kinase (26-192) U/L Troponin I (0-0.045) ng/ml C-Reactive Protein (0-0.29) mg/dl Total Protein (6.4-8.2) gm/dl Albumin (3.4-5.0) gm/dl Globulin (2.5-4.0) gm/dl Albumin/Globulin Ratio (0.9-2) Procalcitonin (0-0.5) ng/ml Specimen Hemolysis Urine Color Yellow Urine Appearance Cloudy A (Clear) Urine pH 5.0 (4.5-7.5) Ur Specific [place] 1.018 (1.000-1.030) Urine Protein 2+ H (Negative) Urine Glucose (UA) Negative (Negative) Urine Ketones Negative (Negative) Urine Blood 1+ H (Negative) Urine Nitrite Positive A (Negative) Urine Bilirubin Negative (Negative) Urine Urobilinogen Negative (Negative) Ur Leukocyte Esterase 2+ H (Negative) Urine WBC (Auto) >30 H (0-5) /hpf Urine RBC (Auto) 5-10 H (0-4) /hpf U Hyaline Cast (Auto) 5-10 H (0-5) /lpf U Epithel Cells (Auto) 10-20 H (0-5) /lpf Urine Bacteria (Auto) 2+ H (Negative) SARS-CoV-2 (PCR) (Negative) Influenza Type A (PCR) (Neg) Influenza Type B (PCR) (Neg) RSV (RT-PCR) (Neg) Administered Medications Enoxaparin Sodium (Enoxaparin Inj 30 Mg/0.3 Ml Syr) 30 mg SQ Q24H [facility] Stop: 11/03/21 17:59 Last Admin: 10/04/21 19:29 Dose: 30 mg Documented by: [id number] Gabapentin (Gabapentin 100 Mg Cap) 100 mg PO BID [facility] Stop: 11/03/21 20:59 Last Admin: 10/04/21 22:59 Dose: 100 mg Documented by: [id number] Cefepime HCl 2,000 mg/ Syringe 20 mls @ 5.5 mls/min IV Q12H [facility]; Protocol Stop: 10/11/21 20:59 Last Admin: 10/04/21 22:58 Dose: 5.5 mls/min Documented by: [id number] Insulin Aspart (Insulin Aspart Per Unit) 0 units SC ACHS [facility] Stop: 11/03/21 16:59 Last Admin: 10/04/21 22:56 Dose: 5 units Documented by: [id number] Cosigned by: [id number] Admin: 10/04/21 18:11 Dose: 5 units Documented by: [id number] Cosigned by: [id number] Miscellaneous (Praluent: Order Awaiting Action) 1 ea N/A QS [facility] Stop: 11/04/21 00:00 Last Admin: 10/04/21 23:08 Dose: Not Given Documented by: [id number] Miscellaneous (*Trimethoprim*Order Awaiting Action) 1 ea N/A QS [facility] Stop: 11/04/21 00:00 Last Admin: 10/04/21 23:08 Dose: Not Given Documented by: [id number] Discontinued Medications Albuterol (Ipratropium [place]/Albuterol Respimat Inh) 2 puffs INH NOW STA Stop: 10/04/21 13:50 Last Admin: 10/04/21 15:23 Dose: 2 puffs Documented by: [id number] Dexamethasone Sodium Phosphate (DexamethasonePf 10 Mg/Ml Vial) 10 mg IV NOW ONE Stop: 10/04/21 13:50 Last Admin: 10/04/21 15:23 Dose: 10 mg Documented by: [id number] Acetaminophen (Ofirmev) 1,000 mg in 100 mls @ 400 mls/hr IV NOW STA Stop: 10/04/21 11:31 Last Infusion: 10/04/21 12:41 Dose: 0 mls/hr Documented by: [id number] Admin: 10/04/21 12:01 Dose: 400 mls/hr Documented by: [id number] Sodium Chloride (Nss 1000ml) 2,000 mls @ 999 mls/hr IV .Q2H1M ONE Stop: 10/04/21 13:17 Last Infusion: 10/04/21 16:59 Dose: 0 mls/hr Documented by: [id number] Admin: 10/04/21 12:01 Dose: 999 mls/hr Documented by: [id number] Famotidine (Pepcid 20mg Iv Push) 20 mg in 5 mls @ 2.5 mls/min IV NOW STA Stop: 10/04/21 11:18 Last Admin: 10/04/21 12:01 Dose: 2.5 mls/min Documented by: [id number] Cefepime HCl (Maxipime) 2,000 mg in 20 mls @ 5 mls/min IV NOW STA; Protocol Stop: 10/04/21 11:33 Last Admin: 10/04/21 12:59 Dose: 5 mls/min Documented by: [id number] Vancomycin HCl 2,000 mg/ (Sodium Chloride) 540 mls @ 200 mls/hr IV NOW ONE Stop: 10/04/21 14:11 Last Infusion: 10/04/21 17:00 Dose: 0 mls/hr Documented by: [id number] Admin: 10/04/21 13:34 Dose: 200 mls/hr Documented by: [id number] Insulin Glargine (Lantus Per Unit Charge) 15 units SQ ONE ONE Stop: 10/04/21 19:01 Last Admin: 10/04/21 19:36 Dose: 15 units Documented by: [id number] Cosigned by: [id number] Ondansetron HCl (Ondansetron Inj 2 Mg/Ml 2 Ml Vial) 4 mg IV NOW STA Stop: 10/04/21 11:18 Last Admin: 10/04/21 12:02 Dose: 4 mg Documented by: [id number] Imaging Data Radiologist's Impression: Abdomen/Pelvis CT 10/04/21 13:44 CT abd pelvis wo con CLINICAL HISTORY: sepsis, ?UTI, +Covid TECHNIQUE: Helical axial images of the abdomen and pelvis were obtained. Automated dose lowering techniques and/or adjustment according to patient size were utilized for this exam. This exam was performed without intravenous cont rast. COMPARISON: Comparison is made to CT abdomen pelvis 04/15/2019 FINDINGS: Lower chest: Bilateral groundglass and consolidative opacities are compatible with history of viral pneumonia. Mild cardiomegaly is seen. Liver: Hepatic steatosis is noted. Gallbladder and biliary tree: Cholelithiasis is seen without evidence of cholecystitis. No intra- or extrahepatic biliary ductal dilation. Pancreas: Unremarkable, no focal lesions. Spleen: Unremarkable. Adrenals: Unremarkable. Kidneys and ureters: Unremarkable. Bladder: Unremarkable. Reproductive organs: Patient is status post hysterectomy. Bowel: A hiatal hernia is seen. Diverticulosis is seen without evidence of diverticulitis. Lymph nodes Retroperitoneal: Unremarkable. Mesenteric: Unremarkable. Pelvic: Unremarkable. Peritoneum: There is a tiny soft tissue nodule near the splenic flexure, nonspecific. Vessels: Unremarkable. Abdominal wall: Bilateral fat-containing inguinal hernias are seen. Bones: Posterior fixation hardware is seen spanning L3-L5. There are bilateral pars defects at L5-S1 with resulting grade 1 anterolisthesis. Degenerative changes are seen throughout the rest of the spine. IMPRESSION: 1. No evidence of acute abnormality. No severe bladder wall thickening is noted. Of note, noncontrast CT is not sensitive for pyelonephritis. 2. Diverticulosis without evidence of diverticulitis. ACT 112: Negative or not required by law. Electronically signed by: Oli Chinchilla M.D. 10/04/2021 2:32 PM Discharge Plan Visit Data Chief Complaint: Urinary Symptoms Stated Complaint: URINARY SX, LOWER AB PAIN, WEAKNESS Discharge Problem: Pneumonia due to COVID-19 virus, Urinary tract infection, Hypoxia, CKD (chronic kidney disease) Patient Disposition: Admitted As Inpatient Discharge Instructions Interventions: ED Discharge Assessment Last Done: 10/04/21 20:53
[2021-10-04 12:56] LABS: Alanine Aminotransferase 42 (12-78); Albumin Globulin Ratio 0.6 (0.9-2); Albumin Level 2.7 gm/dl (3.4-5.0); Alkaline Phosphatase 62 U/L (45-117); Aspartate Aminotransferase 56 U/L (15-37); BUN Creatinine Ratio 20.5 (10-20); Bilirubin,Total 0.3 mg/dl (0.2-1); Blood Urea Nitrogen 39 mg/dl (7-18); Calcium 9.1 mg/dl (8.5-10.1); Carbon Dioxide 19 mmol/L (21-32); Chloride 105 mmol/L (98-107); Creatine Kinase 171 U/L (26-192); Est GFR (African American) 31.3 ml/min; Globulin 4.8 gm/dl (2.5-4.0); Glucose 124 mg/dl (70-99); Magnesium 2.2 mg/dl (1.8-2.4); Potassium 4.6 mmol/L (3.5-5.1); Sodium 134 mmol/L (136-145); Total Protein 7.5 gm/dl (6.4-8.2); Troponin I < 0.015 ng/ml (0-0.045)
[2021-10-04 12:57] LABS: Influenza A virus by PCR Negative (Neg); Influenza B virus by PCR Negative (Neg); RSV by PCR Negative (Neg)
--- NOTE | 2021-10-04 12:58 | XRay Report ---
XR chest 1V portable HISTORY: 66 years-old Female SEPSIS acute sepsis COMPARISON: Chest radiograph 04/26/2019 TECHNIQUE: AP view of the chest FINDINGS: Cardiac silhouette is upper limits of normal in size. Bilateral hilar prominence. Interstitial coarse shawanda with patchy bilateral airspace opacities. No pneumothorax or large pleural effusion. Degenerativ e changes of the shoulders and spine. IMPRESSION: Findings compatible with multifocal pneumonia. ACT 112: Negative or not required by law. The above report was generated using voice recognition software. It may contain grammatical, syntax o r spelling errors. Electronically signed by: Darwin Cohen M.D. 10/04/2021 12:56 PM
[2021-10-04 13:12] LABS: SARS CoV2 RNA(COVID-19) InHosp POSITIVE (Negative)
[2021-10-04] MEDS ORDERED: dexAMETHasone**PF** 10 MG/ML VIAL IV ONE (13:49)
[2021-10-04] MEDS ORDERED: IPRATROPIUM BROMIDE/ALBUTEROL respimat INH INH STA (13:49)
--- NOTE | 2021-10-04 14:30 | History & Physical Report ---
Date of Service October 04, 2021 Assessment & Plan (1) Pneumonia due to severe acute respiratory syndrome coronavirus 2 ( RS-CoV-2): Plan: Mrs. Champagne is a 66 year old female with a history of Rheumatoid Arthritis, Type 2 Diabetes Mellitus, Diabetic Neuropathy, Arthritis, Hypertension, Stage 3 CKD, Chronic Anemia, CVA s/p TPA, Vertebral Artery Stenosis, Carotid Artery Stenosis, Frequent PAC's, Sinus Tachycardia, and Recurrent UTI's who presented acutely to [facility] ER today with SARS CoV-2 Pneumonia, Probable UTI, and Possible Sepsis. Patient complains of malaise, generalized weakness, KRISHNA, headache, dysuria, urinary frequency, urinary urgency, and abdominal discomfort. Patient has been dealing with recurrent UTI symptoms since June 2021 and has been on 4 different courses of antibiotics since then. Additionally she takes Trimethoprim 100 mg daily for suppression therapy. Urinary symptoms usually clear up relatively quickly -- but within 7 to 10 days of stopping the antibiotic her urinary symptoms return. Last Friday09/26/21, patient received her COVID booster shot and felt poorly the following day, and since then her symptoms have only worsened. She has the above mentioned symptoms since the day after getting the COVID booster but y and today her generalized weakness seems worse -- she states that she could barely get out of bed. Patient has had a mild cough but no sputum production. She denies any fevers (although she is febrile in the ER), chills, stiff neck, pleuritic chest pain, chest pain, hemoptysis, nausea, vomiting, or diarrhea. Patient was febrile, tachycardic, and hypoxic on presentation with an SpO2 of 88% on room air (patient states she is chronically tachycardic). Supplemental O2 given at 4 L/min via NC and O2 saturations are in the mid to upper 90's. Further evaluation in the ER shows an elevated WBC count of 11.91 with a leftward shift, hemoglobin 11.8, hematocrit 37%, she has a hyponatremia at 134 mmol/L, normal potassium 4.6 mmol/L, BUN is elevated at 39 mg/dL and creatinine is elevated at 1.90 mg/dL. Random glucose is 124 mg/dL. Lactate is normal at 1.6 mmol/L. Serum magnesium level normal at 2.2 mg/dL. C reactive protein is elevated at 18.40 mg/dL, procalcitonin is elevated at 1.87 ng/mL. Troponin I is undetectable at < 0.015 ng/mL. Urinalysis has not been done yet. Blood cultures x 2 have been drawn. CXR is compatible with a multi-focal pneumonia. Recommend the followin. Admit to Med-Surg with telemetry. 2. Continue supplemental O2 to maintain SpO2 = or > 94%. 3. Hold home dose of Prednisone. 4. IV Dexamethasone 6 mg daily. 5. IV Cefepime 1 g q 12 hours (CrCl = 37.7 mL/min). 6. Duoneb nebulizers as needed. 7. COVID isolation. 8. Monitor daily labs. 9. Continuous SpO2 monitoring. (2) Diabetes mellitus type II, controlled: Plan: -- Hold Metformin. -- Glycemic Pharmacy Consult. -- BSG QAC and QHS. -- Diabetic diet. -- Sliding scale insulin will likely be necessary as she is receiving IV steroids. (3) Recurrent UTI: Plan: Followed by Dr. Ruiz. -- On chronic Trimethoprim for suppression therapy. -- UA, C&S ordered. -- IV antibiotic as outlined above. -- Blood cultures x 2 have been drawn. (4) Hypertension: Plan: Blood pressure is stable. -- Continue Toprol XL 125 mg daily. -- Continue Lisinopril 40 mg daily. (5) Stage 3 chronic kidney disease: Plan: Serum Creatinine is 1.90 mg/dL with a CrCl of 37.7 mL/min. Her baseline Creatinine appears to be 1.2 to 1.4 mg/dL. -- Medications will be renally dosed. -- Monitor daily labs. (6) Sinus tachycardia: Plan: Patient states that she is chronically tachycardic and she has frequent PAC's. -- Continue Toprol XL 125 mg daily, can consider increasing dose if tachycardia persists after treating her acute illness. -- Echocardiogram 04/22/21 shows normal LV systolic function, moderate concentric LVH, mildly dilated left atrium, and grade I LV diastolic dysfunction. Admission and Anticipated Discharge Date Admission Date: October 04, 2021 History of Present Illness Chief Complaint: -- SARS Co-V 2 Pneumonia. -- UTI. -- Possible Sepsis. Primary Care Provider: Corby Arzola MD Mrs. Champagne is a 66 year old female with a history of Rheumatoid Arthritis, Type 2 Diabetes Mellitus, Diabetic Neuropathy, Arthritis, Hypertension, Stage 3 CKD, Chronic Anemia, CVA s/p TPA, Vertebral Artery Stenosis, Carotid Artery Stenosis, and Recurrent UTI's who presented acutely to [facility] ER today complaining of malaise, generalized weakness, KRISHNA, headache, dysuria, urinary frequency, urinary urgency, and abdominal discomfort. Patient has been dealing with recurrent UTI symptoms since June and has been on 4 different courses of antibiotics since then. Urinary symptoms usually clear up relatively quickly -- but within 7 to 10 days of stopping the antibiotic her urinary symptoms return. Last Friday09/26/21, patient received her COVID booster shot and felt poorly the following day, and since then her symptoms have only worsened. She has the above mentioned symptoms since the day after getting the COVID booster but yesterday and today her generalized weakness seems worse -- she states that she could barely get out of bed. Patient has had a mild cough but no sputum production. She denies any fevers (although she is febrile in the ER), chills, stiff neck, pleuritic chest pain, chest pain, hemoptysis, nausea, vomiting, or diarrhea. Patient is compliant with her medications and has not had any adverse side e ffects. Her blood sugars are running at baseline. Allergies Allergy/AdvReac Type Severity Reaction Status Date / Time nitrofurantoin Allergy Severe HEADACHE Verified 10/04/21 13:41 tetracycline Allergy Severe RASH ON Verified 10/04/21 13:41 FACE [id number] Reductase AdvReac Intermediate LE edema Verified 10/04/21 13:41 Inhibitor [Yoexcwv-Qwh-Vxk Reductase Inhibitor] oxycodone AdvReac Drowsy Verified 10/04/21 13:41 Home Medications Medication Instructions Recorded Confirmed Type cholecalciferol (vitamin D3) 25 1,000 unit PO QAM 10/26/18 10/04/21 History mcg (1,000 unit) capsule (Vitamin D3) magnesium 250 mg tablet 250 mg PO QAM 10/26/18 10/04/21 History acetaminophen 500 mg tablet 1,000 mg PO Q6H PRN 12/24/18 10/04/21 History (Tylenol Extra Strength) blood-glucose meter (Accu-Chek #1 ea 12/03/19 08/21/21 Rx Ida Plus Meter) blood sugar diagnostic (Accu-Chek #200 ea 12/08/19 08/21/21 Rx Ida Plus test strp) cyclobenzaprine 10 mg tablet 10 mg PO DAILY 04/21/21 10/04/21 History prednisone 5 mg tablet 5 mg PO DAILY 04/21/21 10/04/21 History aspirin 81 mg tablet,delayed 81 mg PO DAILY #90 tab 04/24/21 10/04/21 Rx release coenzyme Q10 200 mg capsule 200 mg PO DAILY #30 cap 04/24/21 10/04/21 Rx metformin 500 mg tablet 500 mg PO BID #60 tab 04/24/21 10/04/21 Rx omeprazole 40 mg capsule,delayed 40 mg PO DAILY #30 cap 04/24/21 10/04/21 Rx release lisinopril 40 mg tablet 40 mg PO DAILY #90 tab 05/24/21 10/04/21 Rx alirocumab 75 mg/mL subcutaneous 75 mg SUBCUT Q14D #2 ml 05/28/21 10/04/21 Rx pen injector (Praluent Pen) metoprolol succinate 50 mg 125 mg PO DAILY #75 tab 07/16/21 10/04/21 Rx tablet,extended release 24 hr trimethoprim 100 mg tablet 100 mg PO DAILY 30 Days #30 tab 08/21/21 10/04/21 Rx gabapentin 100 mg capsule 100 mg PO BID #60 cap 08/30/21 10/04/21 Rx levothyroxine 100 mcg tablet 100 mcg PO QAM #90 tab 09/03/21 10/04/21 Rx sulfamethoxazole 800 1 tab PO BID 2 Days #4 tab 09/24/21 10/04/21 Rx mg-trimethoprim 160 mg tablet (Bactrim DS) Past Med/Surg History Medical History Bilateral leg edema Colitis Diabetes mellitus type II, controlled History of campylobacteriosis 04/2019 ([facility]) s/p antibiotics treatment History of MRSA infection lumbar surgical incision s/p vanco/ceftriaxone/bactrim per 04/2019 [facility] discharge summary Hyperlipidemia Hypertension Hypothyroidism Immunosuppression due to drug therapy Lower GI bleed Lumbar radiculopathy Nonhealing surgical wound Rheumatoid arthritis Spinal stenosis Tachycardia Surgical History History of back surgery History of x2 History of hysterectomy total History of total left knee replacement Hx of tonsillectomy Status post laminectomy with spinal fusion L2-L5 laminectomy/fusion: 12/24/18: Grade view 1, MAC#3, ETT 7.0 Family History Father Diabetes Lung cancer Cancer Hypertension Mother Diabetes Brain tumor Cancer Hypertension Malignant neoplasm of brain Aunt Breast cancer Denies family history of Ovarian cancer Prostate cancer Myocardial infarction Colorectal cancer Social History Smoking Status: Never smoker Second Hand Exposure: No; Hx Alcohol Use: No Hx Substance Use: No Preferred Language: Trinidadian Communication Ability: Effective Visual Impairment: Limited Hearing Ability: Normal Science Teacher Required: No Beliefs That Will Affect Care: None marital status: Current Living Situation: Spouse current occupational status: retired How many Children do You have: 2 Other Information That Helps Us Care for You: No other: 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 Feels Safe at Home: Yes Safety Concerns: Feels Safe At This Time Childhood Exposure to Second-Hand Smoke: Yes caffeine: Yes Dental Care, Regularly: Yes Physical Activity Frequency: 5-6 Times per Week Physical Activity Frequency Comment: gym Seatbelt Use: always Sunscreen Use: Yes Do you think of yourself as: straight/heterosexual Assistive Devices: Oxygen - Continuous Review of Systems Review of Systems: Ten point ROS was completed and is negative with the exception of what is mentioned in the HPI. Physical Exam Physical Exam: GENERAL: Patient in no acute distress. HEENT: Head is atraumatic, normocephalic. Sclerae anicteric. EOM's intact. Facies symmetric. No perioral cyanosis. NECK: No JVD. JVP is not elevated. Carotid upstrokes are + 2 bilaterally without obvious bruits. CHEST/LUNGS: Diffuse crackles throughout all lung mitchell, no wheezes appreciated. CVS: S1 and S2 are tachycardic at 115 bpm with frequent ectopy. No obvious murmurs, gallops, or rubs. PMI is nonpalpable. No lifts, heaves, or thrills. No abdominal aortic or renal bruits. ABDOMINAL EXAM: Bowel sounds are present. No masses, organomegaly, or tenderness. EXTREMITIES: No clubbing or cyanosis. No edema. Intact radial pulses bilaterally. NEUROLOGIC EXAM: Patient is awake, alert, and oriented. Pleasant and cooperative. Answers questions appropriately. Speech is clear. Normal movement in all 4 extremities. Gait pattern was not assessed. Clinical Lab Assistant: -- Sinus tachycardia with PAC's, atrial couplets. EKG 10/03/21: -- Sinus tachycardia with frequent PAC's, atrial couplets. Results & Data Results & Data ([facility]) Vital Signs (Past 12 Hours) Vital Signs Temp Pulse Pulse Resp BP Pulse Ox 10/04/21 13:06 37.8 C H 132 H 16 118/75 95 10/04/21 12:04 39.0 C H 18 127/72 94 10/04/21 12:00 95 10/04/21 11:33 138 H 28 H 95 10/04/21 11:26 134 H 28 H 88 L 10/04/21 10:45 37.8 C H 140 H 24 Laboratory Results Laboratory Results - last 24 hr 10/04/21 10/04/21 10/04/21 11:45 11:53 11:53 WBC 11.91 H RBC 4.08 L Hgb 11.8 L Hct 37.0 MCV 90.7 MCH 28.9 MCHC 31.9 L RDW Std Deviation 51.4 H RDW Coeff of Smuaya 15.4 H Plt Count 257 MPV 9.9 Immature Gran % (Auto) 0.8 Neut % (Auto) 83.9 Lymph % (Auto) 9.4 Woodruff % (Auto) 5.8 Eos % (Auto) 0.0 Baso % (Auto) 0.1 Neut # (Auto) 10.00 H Lymph # (Auto) 1.12 L Woodruff # (Auto) 0.69 H Eos # (Auto) 0.00 Baso # (Auto) 0.01 Immature Gran # (Auto) 0.09 H PT 9.8 INR 1.0 APTT 27.3 PTT Ratio 1.0 VBG pH VBG pCO2 VBG pO2 VBG HCO3 VBG O2 Saturation VBG Base Excess Barometric Pressure Sodium Potassium Chloride Carbon Dioxide Anion Gap BUN Creatinine Est Cr Clr Drug Dosing Est GFR ( Amer) Est GFR (Non-Af Amer) BUN/Creatinine Ratio Glucose POC Glucose 128 H Lactate Calcium Magnesium Total Bilirubin AST ALT Alkaline Phosphatase Total Creatine Kinase Troponin I C-Reactive Protein Total Protein Albumin Globulin Albumin/Globulin Ratio Procalcitonin Specimen Hemolysis SARS-CoV-2 (PCR) Influenza Type A (PCR) Influenza Type B (PCR) RSV (RT-PCR) 10/04/21 10/04/21 10/04/21 11:53 11:53 11:53 WBC RBC Hgb Hct MCV MCH MCHC RDW Std Deviation RDW Coeff of Sumaya Plt Count MPV Immature Gran % (Auto) Neut % (Auto) Lymph % (Auto) Woodruff % (Auto) Eos % (Auto) Baso % (Auto) Neut # (Auto) Lymph # (Auto) Woodruff # (Auto) Eos # (Auto) Baso # (Auto) Immature Gran # (Auto) PT INR APTT PTT Ratio VBG pH VBG pCO2 VBG pO2 VBG HCO3 VBG O2 Saturation VBG Base Excess Barometric Pressure Sodium 134 L Potassium 4.6 Chloride 105 Carbon Dioxide 19 L Anion Gap 10.0 BUN 39 H Creatinine 1.90 H Est Cr Clr Drug Dosing 32.0 Est GFR ( Amer) 31.3 Est GFR (Non-Af Amer) 27.0 BUN/Creatinine Ratio 20.5 H Glucose 124 H POC Glucose Lactate 1.6 Calcium 9.1 Magnesium 2.2 Total Bilirubin 0.3 AST 56 H ALT 42 Alkaline Phosphatase 62 Total Creatine Kinase 171 Troponin I < 0.015 C-Reactive Protein Total Protein 7.5 Albumin 2.7 L Globulin 4.8 H Albumin/Globulin Ratio 0.6 L Procalcitonin 1.87 H Specimen Hemolysis SARS-CoV-2 (PCR) Influenza Type A (PCR) Influenza Type B (PCR) RSV (RT-PCR) 10/04/21 10/04/21 10/04/21 11:53 11:53 12:05 WBC RBC Hgb Hct MCV MCH MCHC RDW Std Deviation RDW Coeff of Sumaya Plt Count MPV Immature Gran % (Auto) Neut % (Auto) Lymph % (Auto) Woodruff % (Auto) Eos % (Auto) Baso % (Auto) Neut # (Auto) Lymph # (Auto) Woodruff # (Auto) Eos # (Auto) Baso # (Auto) Immature Gran # (Auto) PT INR APTT PTT Ratio VBG pH 7.33 L VBG pCO2 45 VBG pO2 23 VBG HCO3 23 VBG O2 Saturation < 60.0 VBG Base Excess -3.3 Barometric Pressure 736.2 Sodium Potassium Chloride Carbon Dioxide Anion Gap BUN Creatinine Est Cr Clr Drug Dosing Est GFR ( Amer) Est GFR (Non-Af Amer) BUN/Creatinine Ratio Glucose POC Glucose Lactate Calcium Magnesium Total Bilirubin AST ALT Alkaline Phosphatase Total Creatine Kinase Troponin I C-Reactive Protein 18.40 H Total Protein Albumin Globulin Albumin/Globulin Ratio Procalcitonin Specimen Hemolysis SARS-CoV-2 (PCR) POSITIVE A* Influenza Type A (PCR) Negative Influenza Type B (PCR) Negative RSV (RT-PCR) Negative Diagnostic Findings CXR 10/03/21: Cardiac silhouette is upper limits of normal in size. Bilateral hilar prominence. Interstitial coarsening with patchy bilateral airspace opacities. No pneumothorax or large pleural effusion. Degenerative changes of the shoulders and spine. IMPRESSION: -- Findings compatible with multifocal pneumonia. CT SCAN ABD/PELVIS 10/03/21: 1. No evidence of acute abnormality. No severe bladder wall thickening is noted. Of note, noncontrast CT is not sensitive for pyelonephritis. 2. Diverticulosis without evidence of diverticulitis. Medications Administered Medications cholecalciferol (vitamin D3) 25 mcg (1,000 unit) capsule (Vitamin D3) 1,000 unit PO QAM 10/26/18 [History Confirmed 10/04/21] magnesium 250 mg tablet 250 mg PO QAM 10/26/18 [History Confirmed 10/04/21] acetaminophen 500 mg tablet (Tylenol Extra Strength) 1,000 mg PO Q6H PRN 12/24/18 [History Confirmed 10/04/21] blood-glucose meter (Accu-Chek Ida Plus Meter) #1 ea 12/03/19 [Rx Confirmed 08/21/21] blood sugar diagnostic (Accu-Chek Ida Plus test strp) #200 ea 12/08/19 [Rx Confirmed 08/21/21] cyclobenzaprine 10 mg tablet 10 mg PO DAILY 04/21/21 [History Confirmed 10/04/21] prednisone 5 mg tablet 5 mg PO DAILY 04/21/21 [History Confirmed 10/04/21] aspirin 81 mg tablet,delayed release 81 mg PO DAILY #90 tab 04/24/21 [Rx Confirmed 10/04/21] coenzyme Q10 200 mg capsule 200 mg PO DAILY #30 cap 04/24/21 [Rx Confirmed 10/04/21] metformin 500 mg tablet 500 mg PO BID #60 tab 04/24/21 [Rx Confirmed 10/04/21] omeprazole 40 mg capsule,delayed release 40 mg PO DAILY #30 cap 04/24/21 [Rx Confirmed 10/04/21] lisinopril 40 mg tablet 40 mg PO DAILY #90 tab 05/24/21 [Rx Confirmed 10/04/21] alirocumab 75 mg/mL subcutaneous pen injector (Praluent Pen) 75 mg SUBCUT Q14D #2 ml 05/28/21 [Rx Confirmed 10/04/21] metoprolol succinate 50 mg tablet,extended release 24 hr 125 mg PO DAILY #75 tab 07/16/21 [Rx Confirmed 10/04/21] trimethoprim 100 mg tablet 100 mg PO DAILY 30 Days #30 tab 08/21/21 [Rx Confirmed 10/04/21] gabapentin 100 mg capsule 100 mg PO BID #60 cap 08/30/21 [Rx Confirmed 10/04/21] levothyroxine 100 mcg tablet 100 mcg PO QAM #90 tab 09/03/21 [Rx Confirmed 10/04/21] sulfamethoxazole 800 mg-trimethoprim 160 mg tablet (Bactrim DS) 1 tab PO BID 2 Days #4 tab 09/24/21 [Rx Confirmed 10/04/21] Home Medications Miscellaneous Information (Vancomycin Consult Active) 1 ea N/A UD PRN PRN Reason: Consult Stop: 11/03/21 11:29 Code Status & VTE Plan Code Status Full Code VTE Prophylaxis Plan VTE Prophylaxis will be ordered: Yes Supervising Physician Co-Signing Physician Notes I personally saw and examined the patient. I verified all geronimo points and agree with Jean Carrillo PA-C with the following exceptions and/or additions: 66 year old with frequent UTIs presents with COVID-19 symptoms and fever. She is vaccinated and received the booster 1 week ago and shortly after started become sick. She reports possible exposure 2 weeks ago but tested negative Last Friday. Sick for 2 days after the booster mainly with fatigue. Dysuria ongoing for 2 months, only goes away when she is on Bactrim. She finished her last course of Bactrim last Friday. She has been on multiple courses of Bactrim since July (growing pansensitive e. Coli in urine). O/E using accessory muscles but able to speak in complete sentences, coarse crackles diffusely, HS 1+2, tachycardia, regular rhythm, no murmurs, no pedal edema, abdomen SNT. A/P COVID-19 pneumonia - Vaccinated although booster was just 1 week ago. Dexamethasone 6mg IV. Limited effectiveness, concurrent UTI, unknown onset of symptoms but CXR, possible exposure suggests over 7 days and most patients present around day 10 of illness therefore remdesivir not given. Does not meet criteria for baricitinib/tocilizumab. Acute respiratory failure with hypoxia - Aim O2 sats > 90%, secondary to COVID pneumonia as above. Sepsis with acute UTI - Fever and tachycardia. Follow up blood and urine cultures. Broad spectrum coverage with vancomycin and cefepime on admission. No CVA tenderness to suggest pyelonephritis, I suspect her fever is secondary to this rather than COVID but if persistent beyond 24 hours of antibiotics perhaps she is in the more acute stages of COVID. Otherwise management as above PG Care Time/CCT Total # of Minutes Spent Total Time Spent with Patient: Total time spent is greater than 50% in coordination of care (as documented) at patient's floor/unit and/or counseling patient:40 Coding Level of Care Code 00950 Initial Inpt Care Lvl 3 Diagnoses Pneumonia due to severe acute respiratory syndrome coronavirus 2 (SARS-CoV-2) U07.1; J12.82 Diabetes mellitus type II, controlled E11.9; Z79.4 Diabetes mellitus complication status: without complication Diabetes mellitus watermelon inspector insulin use: with longterm use Recurrent UTI N39.0 Hypertension I10 Stage 3 chronic kidney disease N18.30 Sinus tachycardia R00.0 Time Spent (min) 68 (1) Diabetes mellitus type II, controlled Diabetes mellitus complication status: without complication Diabetes mellitus watermelon inspector insulin use: with watermelon inspector use Qualified Code(s): E11.9 - Type 2 diabetes mellitus without complications; Z79.4 - [facility] (current) use of insulin
--- NOTE | 2021-10-04 14:33 | CT Scan Report ---
CT abd pelvis wo con CLINICAL HISTORY: sepsis, ?UTI, +Covid TECHNIQUE: Helical axial images of the abdomen and pelvis were obtained. Automated dose lowering tech niques and/or adjustment according to patient size were utilized for this exam. This exam was perfor med without intravenous contrast. COMPARISON: Comparison is made to CT abdomen pelvis 04/15/2019 FINDINGS: Lower chest: Bilateral groundglass and consolidative opacities are compatible with history of viral pneumonia. Mild cardiomegaly is seen. Liver: Hepatic steatosis is noted. Gallbladder and biliary tree: Cholelithiasis is seen without evidence of cholecystitis. No intra- or extrahepatic biliary ductal dilation. Pancreas: Unremarkable, no focal lesions. Spleen: Unremarkable. Adrenals: Unremarkable. Kidneys and ureters: Unremarkable. Bladder: Unremarkable. Reproductive organs: Patient is status post hysterectomy. Bowel: A hiatal hernia is seen. Diverticulosis is seen without evidence of diverticulitis. Lymph nodes Retroperitoneal: Unremarkable. Mesenteric: Unremarkable. Pelvic: Unremarkable. Peritoneum: There is a tiny soft tissue nodule near the splenic flexure, nonspecific. Vessels: Unremarkable. Abdominal wall: Bilateral fat-containing inguinal hernias are seen. Bones: Posterior fixation hardware is seen spanning L3-L5. There are bilateral pars defects at L5-S1 with resulting grade 1 anterolisthesis. Degenerative changes are seen throughout the rest of the spin e. IMPRESSION: 1. No evidence of acute abnormality. No severe bladder wall thickening is noted. Of note, noncontras t CT is not sensitive for pyelonephritis. 2. Diverticulosis without evidence of diverticulitis. ACT 112: Negative or not required by law. Electronically signed by: Oli Chinchilla M.D. 10/04/2021 2:32 PM
[2021-10-04 16:28] LABS: Appearance Urine Cloudy (Clear); Bacteria Urine Automated 2+ (Negative); Bilirubin Urine Negative (Negative); Blood Urine 1+ (Negative); Color Urine Yellow; Glucose Urine UA Negative (Negative); Ketones Urine Negative (Negative); Leukocyte Esterase Urine 2+ (Negative); Nitrite Urine Positive (Negative); Protein Urine 2+ (Negative); Specific Gravity Urine 1.018 (1.000-1.030); Urobilinogen Urine Negative (Negative); WBC Urine Automated >30 /hpf (0-5)
[2021-10-04] MEDS ORDERED: MAGNESIUM HYDROXIDE SUSP 30 ML UDC PO PRN (16:32)
[2021-10-04] MEDS ORDERED: NITROGLYCERIN SL 0.4 MG/TAB TAB SL PRN (16:32)
[2021-10-04] MEDS ORDERED: ONDANSETRON INJ 2 MG/ML 2 ML VIAL IV PRN (16:32)
[2021-10-04] MEDS ORDERED: ACETAMINOPHEN HOME PACK 500 MG TABLET PO PRN (16:32)
[2021-10-04] MEDS ORDERED: MoRPHine SULFATE 2 MG/ML CARP IV PRN (16:32)
[2021-10-04] MEDS ORDERED: ALUMINUM/MAGNESIUM SUSP 30 ML UDC PO PRN (16:32)
[2021-10-04] MEDS ORDERED: PHARMACY GLYCEMIC MGMT CONSULT PRN (16:32)
[2021-10-04] MEDS ORDERED: POLYETHYLENE (MIRALAX) 17 GM PACK PO PRN (16:32)
[2021-10-04] MEDS ORDERED: ZOLPIDEM TARTRATE 5 MG TAB PO PRN (16:32)
[2021-10-04] MEDS: INSULIN ASPART PER UNIT SC SCH ×2 (18:11→22:56)
[2021-10-04] MEDS ORDERED: LANTUS PER UNIT CHARGE SQ ONE (19:00)
[2021-10-04] MEDS ORDERED: INSULIN GLARGINE SOLOSTAR 100 UNITS/ML 3 ML PEN SC ONE (19:00)
[2021-10-04] MEDS: ENOXAPARIN INJ 30 MG/0.3 ML SYR SQ SCH (19:29)
[2021-10-04] MEDS: CEFEPIME 2,000 MG in SYRINGE 0 ML IV SCH (22:58)
[2021-10-04] MEDS: GABAPENTIN 100 MG CAP PO SCH (22:59)
[2021-10-05] MEDS: ACETAMINOPHEN 325 MG TAB PO PRN ×2 (05:30→21:58)
[2021-10-05] MEDS: LEVOTHYROXINE SODIUM 100 MCG TABLET PO SCH (05:30)
[2021-10-05] MEDS ORDERED: VANCOMYCIN HCL 1,000 MG in SODIUM CHLORIDE 0.9% 250 ML IV SCH (06:00)
[2021-10-05 06:53] LABS: Basophils # (auto) 0.01 K/uL (0-0.2); Basophils % (auto) 0.1 %; Hematocrit (blood only) 32.5 % (37-47); Immature Granulocytes # (auto) 0.11 K/uL (0.00-0.02); Lymphocytes # (auto) 0.75 K/uL (1.2-3.4); Lymphocytes % (auto) 6.8 %; Mean Corpuscular Hemoglobin 27.8 pg (25-34); Mean Corpuscular Hgb Conc 30.8 g/dL (32-36); Mean Corpuscular Volume 90.3 fL (80-100); Mean Platelet Volume 9.8 fL (7.4-10.4); Monocytes # (auto) 0.71 K/uL (0.11-0.59); Monocytes % (auto) 6.5 %; Neutrophils # (auto) 9.42 K/uL (1.4-6.5); Neutrophils % (auto) 85.6 %; Platelet Count 255 K/uL (130-400); RDW Coefficient of Variation 15.5 % (11.5-14.5); RDW Standard Deviation 51.6 fL (36.4-46.3)
[2021-10-05 07:22] LABS: BUN Creatinine Ratio 20.6 (10-20); Calcium 8.4 mg/dl (8.5-10.1); Creatinine Clr Calc Pharmacy 38.7 ml/min; Est GFR (Non-African American) 34.5 ml/min; Potassium 4.5 mmol/L (3.5-5.1)
[2021-10-05 07:25] LABS: Albumin Globulin Ratio 0.5 (0.9-2); Bilirubin,Total 0.2 mg/dl (0.2-1); Globulin 4.3 gm/dl (2.5-4.0); Total Protein 6.3 gm/dl (6.4-8.2)
[2021-10-05 07:54] LABS: Estimated Average Glucose 169 mg/dl; Hemoglobin A1C 7.5 % (4.5-5.6)
[2021-10-05] MEDS: METOPROLOL SUCC 25MG EXT REL TAB PO SCH (08:08)
[2021-10-05] MEDS: GABAPENTIN 100 MG CAP PO SCH ×2 (08:09→20:49)
[2021-10-05] MEDS: ASPIRIN 81 MG ECTAB PO SCH (08:09)
[2021-10-05] MEDS: PANTOprazole 40 MG TAB PO SCH (08:09)
[2021-10-05] MEDS: CYCLOBENZAPRINE HCL 10 MG TAB PO SCH (08:09)
[2021-10-05] MEDS: lisinopril 40 MG TAB PO SCH (08:10)
[2021-10-05] MEDS: MAGNESIUM OXIDE 400 MG TAB PO SCH (08:10)
[2021-10-05] MEDS: CHOLECALCIFEROL 1,000 UNITS 25 MCG TAB PO SCH (08:10)
[2021-10-05] MEDS ORDERED: ASPIRIN 81 MG ECTAB PO SCH (09:00)
[2021-10-05] MEDS ORDERED: NON-FORMULARY MEDICATION (Coenzyme Q10 200 mg capsule) PO SCH (09:00)
[2021-10-05] MEDS: INSULIN HUMAN NPH SC SCH (09:52)
[2021-10-05] MEDS: INSULIN ASPART PER UNIT SC SCH ×4 (09:52→22:35)
[2021-10-05] MEDS: CEFEPIME 2,000 MG in SYRINGE 0 ML IV SCH ×3 (09:59→21:58)
[2021-10-05] MEDS ORDERED: REMDESIVIR 200 MG in SODIUM CHLORIDE 0.9% 210 ML IV ONE (10:00)
[2021-10-05] MEDS: dexAMETHasone 6 MG in SYRINGE 0 ML IV SCH (11:01)
--- NOTE | 2021-10-05 15:02 | Pharmacy Report ---
Pharmacy Glycemic Short Note 2 - Date of Service October 05, 2021 - Glycemic Short BSG Results (Last 24 hours): 10/04/21 10/04/21 10/05/21 17:54 22:55 06:10 Glucose 176 H POC Glucose 158 H 259 H 10/05/21 10/05/21 07:33 11:27 Glucose POC Glucose 159 H 211 H OUTPATIENT ANTIDIABETIC REGIMEN: * metformin * A1c 75% ASSESSMENT: * 66 year old female admitted with COVID pneumonia. Type 2 diabetic managed on metformin at home. Steroid started last evening * Patient given 15 units of Lantus last night - fasting BSG 176 mg/dL. Anticipate blood sugars to continue to trend upward with continuation of dexamethasone, therefore will add once daily NPH to cover steroids * Will start at 0.3 units/kg of NPH for this AM, stress of 3 for novolog PLAN FOR INPATIENT GLYCEMIC CONTROL: * Hold outpatient oral diabetes medications * Basal insulin * NPH 25 units daily - with Dex * Bolus insulin * NovoLog per scale ACHS or Q6hrs while NPO * Goal Range: Low 110 mg/dL - High 140 mg/dL * Correction Factor: 20 mg/dL/unit * Nutritional / Prandial insulin per carb ratio of 1 unit per 7 grams CHO consumed PLAN FOR DISCHARGE: * A1c 7.5% - goal ~7%, reasonable to continue home regimen as long as no contraindications present
[2021-10-05] MEDS: SODIUM CHLORIDE 0.9% 10ML FLUSH IV SCH (15:34)
[2021-10-05] MEDS: ALBUT/IPRATROP 3MG/0.5MG NEB 3 ML VIAL NEB PRN (16:18)
[2021-10-05] MEDS ORDERED: FUROSEMIDE INJ 20 MG/2 ML VIAL IV STA (16:56)
--- NOTE | 2021-10-05 16:59 | Hospitalist Progress Note ---
Date of Service October 05, 2021 Assessment & Plan (1) Pneumonia due to COVID-19 virus: Plan: worsening. is at risk of severe disease given her immunocompromised state at baseline (on chronic prednisone, etc for RA). start Remdesivir day #1 today. CrCl is >30 today. day #2 of dexamethasone 6mg daily. changed to HFNC today due to worsening hypoxia. keep sats 92% or greater. pulmo toilet discussed with patient - side positioning (can't prone due to back issues); flutter; IS. nebs prn. (2) Acute respiratory failure with hypoxia: Plan: 2nd to #1 can't rule out acute diastolic CHF lasix 20mg IV X 1 now repeat cxr in am other Rx per #1 (3) Urinary tract infection: Plan: recurrent UTIs no nidus for infection (stone, etc) on CT a/p at admission cont cefepime narrow based on cultures (4) Hypothyroidism: Plan: TSH 04/2021 wnl cont synthroid (5) Acute congestive heart failure: Plan: suspected acute diastolic lasix x 1 repeat in am if needed (6) Stage 3 chronic kidney disease: Plan: CrCl low 30s bmp am (7) Hypertension: Plan: controlled (8) DVT prophylaxis: Plan: lovenox, renal-adjusted (9) Diabetes mellitus type II, controlled: Plan: pharmacy consult & recs appreciated basal-bolus SC regimen Plan: daughter updated by phone this evening Admission and Anticipated Discharge Date Admission Date: October 04, 2021 Subjective patient has had increasing O2 requirements over the last 24 hours just prior to my bedside visit she was on an oxymask and this had to be increased to 15 L for refractory hypoxia when I was at bedside she was only satting 85% on the 15 liters she denied feeling dyspneic at rest - but endorses KRISHNA coughing does not think she can prone but will lay on her side she was very upset about coming down with COVID - she reported compliance with social distancing, mask wearing, and getting her recent vaccine booster sick at home w/ COVID right after my bedside visit I asked respiratory to apply HFNC Review of Systems Review of Systems: gen - no fever, weakness/ fatigue, appetite fair cv - no pain pulm - coughing, dyspneic GI - no pain, vomiting or nausea Physical Exam Physical Exam: gen - no distress, a/o x 3 mouth - no thrush neck - mild JVD? heart - RRR, s1 s2 lungs - extensive b/l rales heard posteriorly (up much of back) and anteriorly abd - soft NT BS+ ext - 1+ edema b/l, pulses 2+ b/l Results & Data Results & Data ([facility]) Vital Signs (Past 12 Hours) Vital Signs Temp Pulse Pulse Resp BP Pulse Ox 10/05/21 16:18 98 H 22 90 10/05/21 14:32 90 10/05/21 11:48 36.9 C 94 H 22 137/80 92 10/05/21 08:15 113 H 10/05/21 08:04 36.9 C 105 H 20 138/85 91 Laboratory Results Laboratory Results - last 24 hr 10/04/21 10/05/21 10/05/21 23:30 06:10 06:10 WBC 11.00 H RBC 3.60 L Hgb 10.0 L Hct 32.5 L MCV 90.3 MCH 27.8 MCHC 30.8 L RDW Std Deviation 51.6 H RDW Coeff of Sumaya 15.5 H Plt Count 255 MPV 9.8 Immature Gran % (Auto) 1.0 Neut % (Auto) 85.6 Lymph % (Auto) 6.8 Moore % (Auto) 6.5 Eos % (Auto) 0.0 Baso % (Auto) 0.1 Neut # (Auto) 9.42 H Lymph # (Auto) 0.75 L Moore # (Auto) 0.71 H Eos # (Auto) 0.00 Baso # (Auto) 0.01 Immature Gran # (Auto) 0.11 H Sodium Potassium Chloride Carbon Dioxide Anion Gap BUN Creatinine Est Cr Clr Drug Dosing Est GFR ( Amer) Est GFR (Non-Af Amer) BUN/Creatinine Ratio Glucose POC Glucose Estimat Average Glucose 169 Hemoglobin A1c 7.5 H Calcium Total Bilirubin AST ALT Alkaline Phosphatase Total Protein Albumin Globulin Albumin/Globulin Ratio Nasal Screen MRSA (PCR) Negative 10/05/21 10/05/21 10/05/21 06:10 07:33 11:27 WBC RBC Hgb Hct MCV MCH MCHC RDW Std Deviation RDW Coeff of Sumaya Plt Count MPV Immature Gran % (Auto) Neut % (Auto) Lymph % (Auto) Moore % (Auto) Eos % (Auto) Baso % (Auto) Neut # (Auto) Lymph # (Auto) Moore # (Auto) Eos # (Auto) Baso # (Auto) Immature Gran # (Auto) Sodium 139 Potassium 4.5 Chloride 113 H Carbon Dioxide 19 L Anion Gap 7.0 BUN 32 H Creatinine 1.55 H D Est Cr Clr Drug Dosing 38.7 Est GFR ( Amer) 40.0 Est GFR (Non-Af Amer) 34.5 BUN/Creatinine Ratio 20.6 H Glucose 176 H POC Glucose 159 H 211 H Estimat Average Glucose Hemoglobin A1c Calcium 8.4 L Total Bilirubin 0.2 AST 36 ALT 28 Alkaline Phosphatase 50 Total Protein 6.3 L Albumin 2.0 L Globulin 4.3 H Albumin/Globulin Ratio 0.5 L Nasal Screen MRSA (PCR) 10/05/21 10/05/21 16:57 20:47 WBC RBC Hgb Hct MCV MCH MCHC RDW Std Deviation RDW Coeff of Sumaya Plt Count MPV Immature Gran % (Auto) Neut % (Auto) Lymph % (Auto) Moore % (Auto) Eos % (Auto) Baso % (Auto) Neut # (Auto) Lymph # (Auto) Moore # (Auto) Eos # (Auto) Baso # (Auto) Immature Gran # (Auto) Sodium Potassium Chloride Carbon Dioxide Anion Gap BUN Creatinine Est Cr Clr Drug Dosing Est GFR ( Amer) Est GFR (Non-Af Amer) BUN/Creatinine Ratio Glucose POC Glucose 174 H 121 H Estimat Average Glucose Hemoglobin A1c Calcium Total Bilirubin AST ALT Alkaline Phosphatase Total Protein Albumin Globulin Albumin/Globulin Ratio Nasal Screen MRSA (PCR) PG Care Time/CCT Total # of Minutes Spent Total Time Spent with Patient: Total time spent is greater than 50% in coordination of care (as documented) at patient's floor/unit and/or counseling patient: Coding Level of Care Code 33020 Subseq Hosp Care Lvl 3 Diagnoses Pneumonia due to COVID-19 virus U07.1; J12.82 Acute respiratory failure with hypoxia J96.01 Urinary tract infection N39.0 Hematuria presence: without hematuria Urinary tract infection type: site unspecified Stage 3 chronic kidney disease N18.30 Hypertension I10 DVT prophylaxis Z29.9 Acute congestive heart failure I50.9 Hypothyroidism E03.9 Hypothyroidism type: unspecified Diabetes mellitus type II, controlled E11.9; Z79.4 Diabetes mellitus complication status: without complication Diabetes mellitus detention insulin use: with detention use (1) Urinary tract infection Hematuria presence: without hematuria Urinary tract infection type: site unspecified Qualified Code(s): N39.0 - Urinary tract infection, site not specified (2) Hypothyroidism Hypothyroidism type: unspecified Qualified Code(s): E03.9 - Hypothyroidism, unspecified (3) Diabetes mellitus type II, controlled Diabetes mellitus complication status: without complication Diabetes mellitus detention insulin use: with meterman use Qualified Code(s): E11.9 - Type 2 diabetes mellitus without complications; Z79.4 - FDC (current) use of insulin
[2021-10-05] MEDS: ENOXAPARIN INJ 30 MG/0.3 ML SYR SQ SCH (17:41)
[2021-10-06] MEDS ORDERED: SODIUM CHLORIDE 0.9% 10ML FLUSH IV SCH (00:15)
[2021-10-06] MEDS: ACETAMINOPHEN 325 MG TAB PO PRN ×3 (02:57→21:20)
[2021-10-06] MEDS: LEVOTHYROXINE SODIUM 100 MCG TABLET PO SCH (06:13)
[2021-10-06] MEDS: dexAMETHasone 6 MG in SYRINGE 0 ML IV SCH (08:01)
[2021-10-06] MEDS: CEFEPIME 2,000 MG in SYRINGE 0 ML IV SCH ×2 (08:01→21:20)
[2021-10-06] MEDS: ASPIRIN 81 MG ECTAB PO SCH (08:02)
[2021-10-06] MEDS: CYCLOBENZAPRINE HCL 10 MG TAB PO SCH (08:02)
[2021-10-06] MEDS: PANTOprazole 40 MG TAB PO SCH (08:02)
[2021-10-06] MEDS: GABAPENTIN 100 MG CAP PO SCH ×2 (08:02→21:16)
[2021-10-06] MEDS: MAGNESIUM OXIDE 400 MG TAB PO SCH (08:02)
[2021-10-06] MEDS: lisinopril 40 MG TAB PO SCH (08:02)
[2021-10-06] MEDS: METOPROLOL SUCC 25MG EXT REL TAB PO SCH (08:02)
[2021-10-06] MEDS: CHOLECALCIFEROL 1,000 UNITS 25 MCG TAB PO SCH (08:02)
[2021-10-06] MEDS: ALBUT/IPRATROP 3MG/0.5MG NEB 3 ML VIAL NEB PRN (08:24)
[2021-10-06 09:02] LABS: Basophils # (auto) 0.01 K/uL (0-0.2); Basophils % (auto) 0.1 %; Hematocrit (blood only) 32.8 % (37-47); Hemoglobin 10.1 g/dL (12.0-16.0); Immature Granulocytes # (auto) 0.24 K/uL (0.00-0.02); Immature Granulocytes % (auto) 1.4 %; Lymphocytes # (auto) 0.98 K/uL (1.2-3.4); Lymphocytes % (auto) 5.7 %; Mean Corpuscular Hemoglobin 27.6 pg (25-34); Mean Corpuscular Hgb Conc 30.8 g/dL (32-36); Mean Corpuscular Volume 89.6 fL (80-100); Mean Platelet Volume 9.9 fL (7.4-10.4); Monocytes # (auto) 1.28 K/uL (0.11-0.59); Monocytes % (auto) 7.5 %; Neutrophils # (auto) 14.67 K/uL (1.4-6.5); Neutrophils % (auto) 85.3 %; Platelet Count 319 K/uL (130-400); RDW Coefficient of Variation 15.3 % (11.5-14.5); RDW Standard Deviation 50.4 fL (36.4-46.3); Red Blood Count 3.66 M/uL (4.2-5.4); White Blood Count 17.18 K/uL (4.8-10.8)
[2021-10-06] MEDS: INSULIN HUMAN NPH SC SCH (09:03)
[2021-10-06] MEDS: INSULIN ASPART PER UNIT SC SCH ×3 (09:03→18:08)
[2021-10-06 09:20] LABS: BUN Creatinine Ratio 26.6 (10-20); C Reactive Protein 13.2 mg/dl (0-0.29); Calcium 8.3 mg/dl (8.5-10.1); Creatinine Clr Calc Pharmacy 33.1 ml/min; Est GFR (African American) 33.4 ml/min; Est GFR (Non-African American) 28.8 ml/min; Potassium 4.3 mmol/L (3.5-5.1)
[2021-10-06] MEDS: REMDESIVIR 100 MG in SODIUM CHLORIDE 0.9% 230 ML IV SCH (11:00)
--- NOTE | 2021-10-06 11:22 | XRay Report ---
XR chest 1V portable CLINICAL HISTORY: worsening covid TECHNIQUE: Single frontal radiograph of the chest was obtained. Comparison: Comparison is made to chest one view 10/04/2021 FINDINGS: No lines and tubes are seen. Cardiomegaly is noted. Multifocal airspace opacities are seen. No eviden ce of pleural effusion or pneumothorax. IMPRESSION: Multifocal airspace opacities may represent atelectasis, pneumonia, and/or aspiration, increased from the prior exam. Cardiomegaly is seen. ACT 112: Negative or not required by law. Electronically signed by: Oli Chinchilla M.D. 10/06/2021 11:20 AM
[2021-10-06] MEDS: SODIUM CHLORIDE 0.9% 10ML FLUSH IV SCH (12:02)
[2021-10-06] MEDS: ENOXAPARIN INJ 30 MG/0.3 ML SYR SQ SCH (18:33)
--- NOTE | 2021-10-06 20:10 | Hospitalist Progress Note ---
Date of Service October 06, 2021 Assessment & Plan (1) Pneumonia due to COVID-19 virus: Plan: severe disease - unchanged from yesterday. her immunocompromised state at baseline (on chronic prednisone, etc for RA) set her up for severe disease. Remdesivir day #2; CrCl remains >30. day #3 of dexamethasone 6mg daily. cont HFNC; keep sats 92% or greater. cont pulm toilet, side positioning (can't prone due to back issues), nebs prn, etc. recheck CRP and procal in am. unfortunately is not a candidate for baricitinib due to outpatient use of alirocumab (used for RA). cxr today with notable worsening of infiltrates c/w increasing O2 requirements yesterday. (2) Acute respiratory failure with hypoxia: Plan: 2nd to #1 can't rule out acute diastolic CHF lasix 20mg IV X 1 yesterday - Cr miesha mildly with such hold on additional lasix today (3) Urinary tract infection: Plan: recurrent UTIs no nidus for infection (stone, etc) on CT a/p at admission cont cefepime GNR growing on urine cx- low colony count- but would Rx as she was symptomatic (4) Hypothyroidism: Plan: TSH 04/2021 wnl cont synthroid (5) Acute congestive heart failure: Plan: suspected acute diastolic lasix x 1 yesterday hold on lasix today; repeat labs am; consider re-dosing tomorrow (6) Stage 3 chronic kidney disease: Plan: CrCl low 30s at baseline; remains such today bmp am (7) Hypertension: Plan: controlled (8) DVT prophylaxis: Plan: lovenox, renal-adjusted (9) Diabetes mellitus type II, controlled: Plan: pharmacy consult & recs appreciated basal-bolus SC regimen Plan: daughter updated by phone this evening and yesterday Admission and Anticipated Discharge Date Admission Date: October 04, 2021 Subjective pt states that overall she feels "better" today breathing is more comfortable nebs help still w/ cough and KRISHNA but no worse than previous eating well no fevers tele overnight wnl doesn't recall producing much urine s/p lasix yesterday Review of Systems Review of Systems: gen - no fevers, no chills, fatigue/weakness similar to yesterday CV - no orthopnea, no chest pain pulm - no significant sputum GI - no N/V; some diarrhea psych - slept poorly last night Physical Exam 2 Physical Exam: gen - no distress, a/o x 3, looks tired but overall better than yesterday mouth - no thrush neck - no JVD heart - RRR, s1 s2, no murmur lungs - b/l basilar rales heard posteriorly; some rales left anterior chest; no wheeze abd - soft NT BS+ ND ext - trace edema b/l, pulses 2+ b/l psych - good spirits Results & Data Results & Data ([facility]) Vital Signs (Past 12 Hours) Vital Signs Temp Pulse Resp BP Pulse Ox 10/06/21 15:40 85 22 95 10/06/21 15:22 36.7 C 78 18 144/81 H 93 10/06/21 11:00 37.2 C 83 155/84 H 94 10/06/21 10:47 85 24 95 10/06/21 08:25 94 H 18 90 10/06/21 08:21 94 H 18 90 Laboratory Results Laboratory Results - last 24 hr 10/05/21 10/06/21 10/06/21 20:47 07:31 07:47 WBC 17.18 H RBC 3.66 L Hgb 10.1 L Hct 32.8 L MCV 89.6 MCH 27.6 MCHC 30.8 L RDW Std Deviation 50.4 H RDW Coeff of Sumaya 15.3 H Plt Count 319 MPV 9.9 Immature Gran % (Auto) 1.4 Neut % (Auto) 85.3 Lymph % (Auto) 5.7 [place] % (Auto) 7.5 Eos % (Auto) 0.0 Baso % (Auto) 0.1 Neut # (Auto) 14.67 H Lymph # (Auto) 0.98 L [place] # (Auto) 1.28 H Eos # (Auto) 0.00 Baso # (Auto) 0.01 Immature Gran # (Auto) 0.24 H Sodium Potassium Chloride Carbon Dioxide Anion Gap BUN Creatinine Est Cr Clr Drug Dosing Est GFR ( Amer) Est GFR (Non-Af Amer) BUN/Creatinine Ratio Glucose POC Glucose 121 H 128 H Calcium AST ALT C-Reactive Protein 10/06/21 10/06/21 10/06/21 07:47 11:41 16:22 WBC RBC Hgb Hct MCV MCH MCHC RDW Std Deviation RDW Coeff of Usmaya Plt Count MPV Immature Gran % (Auto) Neut % (Auto) Lymph % (Auto) [place] % (Auto) Eos % (Auto) Baso % (Auto) Neut # (Auto) Lymph # (Auto) [place] # (Auto) Eos # (Auto) Baso # (Auto) Immature Gran # (Auto) Sodium 138 Potassium 4.3 Chloride 108 H Carbon Dioxide 21 Anion Gap 9.0 BUN 48 H Creatinine 1.80 H Est Cr Clr Drug Dosing 33.1 Est GFR ( Amer) 33.4 Est GFR (Non-Af Amer) 28.8 BUN/Creatinine Ratio 26.6 H Glucose 125 H POC Glucose 211 H 121 H Calcium 8.3 L AST 37 ALT 33 C-Reactive Protein 13.20 H Diagnostic Findings Urine cx - GNR, 90207 CFU blood cultures negative PG Care Time/CCT Total # of Minutes Spent Total Time Spent with Patient: Total time spent is greater than 50% in coordination of care (as documented) at patient's floor/unit and/or counseling patient: Coding Level of Care Code 90707 Subseq Hosp Care Lvl 3 Diagnoses Pneumonia due to COVID-19 virus U07.1; J12.82 Acute respiratory failure with hypoxia J96.01 Urinary tract infection N39.0 Hematuria presence: without hematuria Urinary tract infection type: site unspecified Hypothyroidism E03.9 Hypothyroidism type: unspecified Acute congestive heart failure I50.9 Stage 3 chronic kidney disease N18.30 Hypertension I10 DVT prophylaxis Z29.9 Diabetes mellitus type II, controlled E11.9; Z79.4 Diabetes mellitus complication status: without complication Diabetes mellitus longterm insulin use: with medical terminologist use (1) Urinary tract infection Hematuria presence: without hematuria Urinary tract infection type: site unspecified Qualified Code(s): N39.0 - Urinary tract infection, site not sp ecified (2) Hypothyroidism Hypothyroidism type: unspecified Qualified Code(s): E03.9 - Hypothyroidism, unspecified (3) Diabetes mellitus type II, controlled Diabetes mellitus complication status: without complication Diabetes mellitus longterm insulin use: with longterm use Qualified Code(s): E11.9 - Type 2 diabetes mellitus without complications; Z79.4 - 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
[2021-10-06] MEDS ORDERED: MELATONIN 3 MG TAB PO SCH (21:00)
[2021-10-06] MEDS ORDERED: INSULIN ASPART PER UNIT SC SCH (21:00)
[2021-10-07] MEDS: LEVOTHYROXINE SODIUM 100 MCG TABLET PO SCH (06:00)
[2021-10-07] MEDS: ACETAMINOPHEN 325 MG TAB PO PRN ×2 (08:29→20:02)
[2021-10-07] MEDS: GABAPENTIN 100 MG CAP PO SCH ×2 (08:31→20:02)
[2021-10-07] MEDS: CHOLECALCIFEROL 1,000 UNITS 25 MCG TAB PO SCH (08:32)
[2021-10-07] MEDS: METOPROLOL SUCC 25MG EXT REL TAB PO SCH (08:32)
[2021-10-07] MEDS: MAGNESIUM OXIDE 400 MG TAB PO SCH (08:32)
[2021-10-07] MEDS: lisinopril 40 MG TAB PO SCH (08:32)
[2021-10-07] MEDS: PANTOprazole 40 MG TAB PO SCH (08:32)
[2021-10-07] MEDS: ASPIRIN 81 MG ECTAB PO SCH (08:32)
[2021-10-07] MEDS: dexAMETHasone 6 MG in SYRINGE 0 ML IV SCH (08:33)
[2021-10-07] MEDS: INSULIN ASPART PER UNIT SC SCH ×4 (08:39→20:50)
[2021-10-07] MEDS: INSULIN HUMAN NPH SC SCH (08:43)
[2021-10-07] MEDS: CYCLOBENZAPRINE HCL 10 MG TAB PO SCH (08:47)
[2021-10-07] MEDS: ADVANCED PROBIOTIC 1250 MG CAPSULE PO SCH (09:11)
[2021-10-07 10:17] LABS: Basophils # (auto) 0.02 K/uL (0-0.2); Basophils % (auto) 0.1 %; Hematocrit (blood only) 34.4 % (37-47); Hemoglobin 10.6 g/dL (12.0-16.0); Immature Granulocytes # (auto) 0.29 K/uL (0.00-0.02); Immature Granulocytes % (auto) 1.6 %; Lymphocytes # (auto) 0.76 K/uL (1.2-3.4); Lymphocytes % (auto) 4.3 %; Mean Corpuscular Hgb Conc 30.8 g/dL (32-36); Mean Corpuscular Volume 90.8 fL (80-100); Mean Platelet Volume 9.4 fL (7.4-10.4); Monocytes # (auto) 1.35 K/uL (0.11-0.59); Monocytes % (auto) 7.6 %; Neutrophils # (auto) 15.34 K/uL (1.4-6.5); Neutrophils % (auto) 86.4 %; Platelet Count 357 K/uL (130-400); RDW Coefficient of Variation 15.2 % (11.5-14.5); Red Blood Count 3.79 M/uL (4.2-5.4); White Blood Count 17.76 K/uL (4.8-10.8)
[2021-10-07 10:43] LABS: BUN Creatinine Ratio 28.1 (10-20); Calcium 8.9 mg/dl (8.5-10.1); Creatinine Clr Calc Pharmacy 34.7 ml/min; Est GFR (African American) 35.3 ml/min; Est GFR (Non-African American) 30.5 ml/min; Potassium 3.9 mmol/L (3.5-5.1)
[2021-10-07 10:51] LABS: C Reactive Protein 9.27 mg/dl (0-0.29)
--- NOTE | 2021-10-07 11:09 | Pharmacy Report ---
Pharmacy Glycemic Short Note 2 - Date of Service October 07, 2021 - Glycemic Short BSG Results (Last 24 hours): 10/06/21 10/06/21 10/06/21 11:41 16:22 20:23 Glucose POC Glucose 211 H 121 H 68 L* 10/06/21 10/06/21 10/07/21 20:24 20:58 07:48 Glucose POC Glucose 69 L* 119 H 80 10/07/21 09:56 Glucose 121 H POC Glucose OUTPATIENT ANTIDIABETIC REGIMEN: * metformin * A1c 75% ASSESSMENT: 10/07/21 * Pt has received 50 units of insulin over the past 24hrs * 25 units of basal with NPH for steroid induced hyperglycemia from dexamethasone for COVID PNA * 25 units of bolus with NovoLog * Pt with LOW BSG last evening at bedtime. Will loosen CF/CR * Pre-lunch BSG tends to be the highest of the day. Will tighten CR only for breakfast and then continue with loosened parameters for the rest of the day. * No changes needed to NPH 10/05/21 * 66 year old female admitted with COVID pneumonia. Type 2 diabetic managed on metformin at home. Steroid started last evening * Patient given 15 units of Lantus last night - fasting BSG 176 mg/dL. Anticipate blood sugars to continue to trend upward with continuation of dexamethasone, therefore will add once daily NPH to cover steroids * Will start at 0.3 units/kg of NPH for this AM, stress of 3 for novolog PLAN FOR INPATIENT GLYCEMIC CONTROL: * Hold outpatient oral diabetes medications * Basal insulin * NPH 25 units SQ daily - with Dex * Bolus insulin: loosen CF/CR for lunch, dinner, HS. Continue with tightened parameters for breakfast only * NovoLog per scale ACHS or Q6hrs while NPO * Goal Range: Low 110 mg/dL - High 140 mg/dL * Correction Factor: 20 mg/dL/unit with breakfast 30 for all other times * Nutritional / Prandial insulin per carb ratio of 1 unit per 5.5 grams CHO consumed with breakfast and 6.5 for all other times (none needed at HS) PLAN FOR DISCHARGE: * A1c 7.5% - goal ~7%, reasonable to continue home regimen as long as no contraindications present
[2021-10-07] MEDS: FUROSEMIDE 20 MG TAB PO SCH (12:04)
[2021-10-07] MEDS: levoFLOXacin 750 MG TAB PO SCH (12:04)
[2021-10-07] MEDS: REMDESIVIR 100 MG in SODIUM CHLORIDE 0.9% 230 ML IV SCH (12:05)
[2021-10-07] MEDS: SODIUM CHLORIDE 0.9% 10ML FLUSH IV SCH (13:24)
[2021-10-07] MEDS: ENOXAPARIN INJ 30 MG/0.3 ML SYR SQ SCH (17:44)
--- NOTE | 2021-10-07 18:46 | Hospitalist Progress Note ---
Date of Service October 07, 2021 Assessment & Plan (1) Pneumonia due to COVID-19 virus: Plan: stable/modestly improved today. severe disease - her immunocompromised state at baseline (on chronic prednisone, etc for RA) set her up for severe disease. Remdesivir day #3; CrCl remains >30. day #4 of dexamethasone 6mg daily. cont HFNC; keep sats 92% or greater. wean as tolerated. cont pulm toilet, side positioning (can't prone due to back issues), nebs prn, etc. CRP improving. procal negative. unfortunately was not a candidate for baricitinib due to outpatient use of alirocumab (used for RA). (2) Acute respiratory failure with hypoxia: Plan: 2nd to #1 can't rule out acute diastolic CHF thus, place on lasix 20mg po daily to keep I/O balance negative bmp in am (3) Urinary tract infection: Plan: recurrent UTIs no nidus for infection (stone, etc) on CT a/p at admission small colony count of pansensitive e.coli - this is the 4th time she has grown such from her urine in the last couple of months d/c cefepime - change to levaquin - this will cover the lungs for any superimposed bacterial process of lungs once 7-day run of IV cefepime/PO levaquin is complete consider low-dose amox or keflex for another week then repeat u/a and urine cx to ensure complete clearance (4) Hypothyroidism: Plan: TSH 04/2021 wnl cont synthroid (5) Acute congestive heart failure: Plan: suspected acute diastolic lasix 20mg po daily (6) Stage 3 chronic kidney disease: Plan: CrCl low 30s at baseline; remains such today bmp am (7) Hypertension: Plan: controlled (8) DVT prophylaxis: Plan: lovenox, renal-adjusted (9) Diabetes mellitus type II, controlled: Plan: pharmacy consult & recs appreciated basal-bolus SC regimen hypoglycemia noted - pharmacy to adjust insulins Plan: daughter updated by phone this evening once again and yesterday Admission and Anticipated Discharge Date Admission Date: October 04, 2021 Subjective tele overnight wnl patient slept MUCH better w/ melatonin overnight she feels more rested today appetite remains good spirits remain high - facetiming with her family frequently cough is improved no dyspnea or distress at rest staff note significant drop in O2 sats with any activity outside of the bed hypoglycemia from overnight noted Review of Systems Review of Systems: gen - no fevers or chills CV - no chest pain, no orthopnea pulm - no sputum GI - no N/V or pain - voiding fine Physical Exam Physical Exam: gen - no distress, a/o x 3, looks very good today and better rested mouth - no thrush, MMM neck - no JVD heart - RRR, s1 s2, no murmur lungs - b/l basilar rales - dry - slightly improved today; no increased work of breathing; no wheezes abd - soft NT BS+ ND ext - no edema b/l, pulses 2+ b/l psych - good spirits; a/o x 3 Results & Data Results & Data ([facility]) Vital Signs (Past 12 Hours) Vital Signs Temp Pulse Pulse Resp BP BP Pulse Ox 10/07/21 15:40 36.9 C 66 18 129/80 94 10/07/21 15:36 78 20 94 10/07/21 14:23 78 10/07/21 12:02 36.6 C 79 20 150/81 H 10/07/21 11:39 81 20 97 10/07/21 08:29 85 20 95 Laboratory Results Laboratory Results - last 24 hr 10/06/21 10/06/21 10/06/21 20:23 20:24 20:58 WBC RBC Hgb Hct MCV MCH MCHC RDW Std Deviation RDW Coeff of Sumaya Plt Count MPV Immature Gran % (Auto) Neut % (Auto) Lymph % (Auto) [place] % (Auto) Eos % (Auto) Baso % (Auto) Neut # (Auto) Lymph # (Auto) [place] # (Auto) Eos # (Auto) Baso # (Auto) Immature Gran # (Auto) Sodium Potassium Chloride Carbon Dioxide Anion Gap BUN Creatinine Est Cr Clr Drug Dosing Est GFR ( Amer) Est GFR (Non-Af Amer) BUN/Creatinine Ratio Glucose POC Glucose 68 L* 69 L* 119 H Calcium AST ALT C-Reactive Protein 10/07/21 10/07/21 10/07/21 07:48 09:56 09:56 WBC 17.76 H RBC 3.79 L Hgb 10.6 L Hct 34.4 L MCV 90.8 MCH 28.0 MCHC 30.8 L RDW Std Deviation 51.0 H RDW Coeff of Sumaya 15.2 H Plt Count 357 MPV 9.4 Immature Gran % (Auto) 1.6 Neut % (Auto) 86.4 Lymph % (Auto) 4.3 [place] % (Auto) 7.6 Eos % (Auto) 0.0 Baso % (Auto) 0.1 Neut # (Auto) 15.34 H Lymph # (Auto) 0.76 L [place] # (Auto) 1.35 H Eos # (Auto) 0.00 Baso # (Auto) 0.02 Immature Gran # (Auto) 0.29 H Sodium 138 Potassium 3.9 Chloride 107 Carbon Dioxide 23 Anion Gap 8.0 BUN 48 H Creatinine 1.72 H Est Cr Clr Drug Dosing 34.7 Est GFR ( Amer) 35.3 Est GFR (Non-Af Amer) 30.5 BUN/Creatinine Ratio 28.1 H Glucose 121 H POC Glucose 80 Calcium 8.9 AST 28 ALT 26 C-Reactive Protein 9.27 H 10/07/21 10/07/21 11:49 16:16 WBC RBC Hgb Hct MCV MCH MCHC RDW Std Deviation RDW Coeff of Sumaya Plt Count MPV Immature Gran % (Auto) Neut % (Auto) Lymph % (Auto) [place] % (Auto) Eos % (Auto) Baso % (Auto) Neut # (Auto) Lymph # (Auto) [place] # (Auto) Eos # (Auto) Baso # (Auto) Immature Gran # (Auto) Sodium Potassium Chloride Carbon Dioxide Anion Gap BUN Creatinine Est Cr Clr Drug Dosing Est GFR ( Amer) Est GFR (Non-Af Amer) BUN/Creatinine Ratio Glucose POC Glucose 109 H 124 H Calcium AST ALT C-Reactive Protein PG Care Time/CCT Total # of Minutes Spent Total Time Spent with Patient: Total time spent is greater than 50% in coordination of care (as documented) at patient's floor/unit and/or counseling patient: Coding Level of Care Code 98794 Subseq Hosp Care Lvl 3 Diagnoses Pneumonia due to COVID-19 virus U07.1; J12.82 Acute respiratory failure with hypoxia J96.01 Urinary tract infection N39.0 Hematuria presence: without hematuria Urinary tract infection type: site unspecified Hypothyroidism E03.9 Hypothyroidism type: unspecified Acute congestive heart failure I50.9 Stage 3 chronic kidney disease N18.30 Hypertension I10 DVT prophylaxis Z29.9 Diabetes mellitus type II, controlled E11.9; Z79.4 Diabetes mellitus complication status: without complication Diabetes mellitus manager long term care insulin use: with prison use (1) Urinary tract infection Hematuria presence: without hematuria Urinary tract infection type: site unspecified Qualified Code(s): N39.0 - Urinary tract infection, site not specified (2) Hypothyroidism Hypothyroidism type: unspecified Qualified Code(s): E03.9 - Hypothyroidism, unspecified (3) Diabetes mellitus type II, controlled Diabetes mellitus complication status: without complication Diabetes mellitus prison insulin use: with manager long term care use Qualified Code(s): E11.9 - Type 2 diabetes mellitus without complications; Z79.4 - 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
[2021-10-07] MEDS: MELATONIN 3 MG TAB PO SCH (20:02)
[2021-10-08] MEDS: LEVOTHYROXINE SODIUM 100 MCG TABLET PO SCH (05:36)
[2021-10-08] MEDS: ACETAMINOPHEN 325 MG TAB PO PRN ×2 (08:15→20:27)
[2021-10-08] MEDS: dexAMETHasone 6 MG in SYRINGE 0 ML IV SCH (08:15)
[2021-10-08] MEDS: ASPIRIN 81 MG ECTAB PO SCH (08:16)
[2021-10-08] MEDS: CHOLECALCIFEROL 1,000 UNITS 25 MCG TAB PO SCH (08:16)
[2021-10-08] MEDS: METOPROLOL SUCC 25MG EXT REL TAB PO SCH (08:16)
[2021-10-08] MEDS: PANTOprazole 40 MG TAB PO SCH (08:16)
[2021-10-08] MEDS: MAGNESIUM OXIDE 400 MG TAB PO SCH (08:16)
[2021-10-08] MEDS: GABAPENTIN 100 MG CAP PO SCH ×2 (08:17→20:28)
[2021-10-08] MEDS: FUROSEMIDE 20 MG TAB PO SCH (08:17)
[2021-10-08] MEDS: lisinopril 40 MG TAB PO SCH (08:17)
[2021-10-08] MEDS: ADVANCED PROBIOTIC 1250 MG CAPSULE PO SCH (08:17)
[2021-10-08] MEDS: INSULIN HUMAN NPH SC SCH (08:19)
[2021-10-08 08:22] LABS: BUN Creatinine Ratio 31.4 (10-20); Calcium 8.5 mg/dl (8.5-10.1); Creatinine Clr Calc Pharmacy 42.3 ml/min; Est GFR (African American) 44.9 ml/min; Est GFR (Non-African American) 38.7 ml/min; Magnesium 2.3 mg/dl (1.8-2.4); Potassium 3.8 mmol/L (3.5-5.1)
[2021-10-08] MEDS: INSULIN ASPART PER UNIT SC SCH ×4 (08:29→20:31)
[2021-10-08] MEDS: CYCLOBENZAPRINE HCL 10 MG TAB PO SCH (08:30)
[2021-10-08] MEDS ORDERED: guaiFENesin/CODEINE 100MG/10MG 5ML UDC PO PRN (08:53)
[2021-10-08] MEDS: BENZONATATE 100 MG CAPSULE PO SCH ×3 (10:32→20:27)
[2021-10-08] MEDS: REMDESIVIR 100 MG in SODIUM CHLORIDE 0.9% 230 ML IV SCH (12:30)
[2021-10-08] MEDS: SODIUM CHLORIDE 0.9% 10ML FLUSH IV SCH (13:41)
[2021-10-08] MEDS: ENOXAPARIN INJ 30 MG/0.3 ML SYR SQ SCH (17:52)
--- NOTE | 2021-10-08 19:47 | Hospitalist Progress Note ---
Date of Service October 08, 2021 Assessment & Plan (1) Pneumonia due to COVID-19 virus: Plan: again improved today. respiratory able to wean her high-flow settings. severe disease - her immunocompromised state at baseline (on chronic prednisone, etc for RA) set her up for severe disease. Remdesivir day #4; CrCl remains >30. day #5 of dexamethasone 6mg daily. cont HFNC; keep sats 92% or greater. cont to wean as tolerated. cont pulm toilet, side positioning (can't prone due to back issues), nebs prn, etc. CRP improving. procal negative. unfortunately was not a candidate for baricitinib due to outpatient use of alirocumab (used for RA). (2) Acute respiratory failure with hypoxia: Plan: 2nd to #1 can't rule out acute diastolic CHF steroids, diuretics, HFNC, supportive care slowly improving (3) Urinary tract infection: Plan: recurrent UTIs no nidus for infection (stone, etc) on CT a/p at admission small colony count of pansensitive e.coli - this is the 4th time she has grown such from her urine in the last couple of months initially was on cefepime - changed to levaquin levaquin will cover the lungs for any superimposed bacterial process of lungs once 7-day run of IV cefepime/PO levaquin is complete consider low-dose amox or keflex for another week then repeat u/a and urine cx to ensure complete clearance (4) Hypothyroidism: Plan: TSH 04/2021 wnl cont synthroid (5) Acute congestive heart failure: Plan: suspected acute diastolic CHF cont lasix 20mg po daily BMP am (6) Stage 3 chronic kidney disease: Plan: CrCl low 30s at baseline CrCl 40s today bmp am (7) Hypertension: Plan: controlled (8) DVT prophylaxis: Plan: lovenox, renal-adjusted (9) Diabetes mellitus type II, controlled: Plan: pharmacy consult & recs appreciated basal-bolus SC regimen no further hypoglycemia Plan: daughter updated by phone this evening order PT/OT dago Admission and Anticipated Discharge Date Admission Date: October 04, 2021 Subjective no events overnight tele - brief runs of PAT, no afib or aflutter patient feels good today eating well denies dyspnea main complaint is cough - improved, however, with tessalon + robitussin AC respiratory able to wean HFNC settings today - she is encouraged by this Review of Systems Review of Systems: gen - no fevers/chills cv - no orthopnea, PND, or chest pain pulm - no dyspnea at rest GI - no vomiting or nausea; no abd pain Physical Exam Physical Exam: gen - no distress, a/o x 3, looks comfortable mouth - no thrush, MMM neck - no JVD heart - RRR, s1 s2, no murmur lungs - b/l basilar rales - dry - again improved today; no increased work of breathing; no wheezes abd - soft NT BS+ ND ext - no edema b/l, pulses 2+ b/l psych - good spirits; a/o x 3 Results & Data Results & Data ([facility]) Vital Signs (Past 12 Hours) Vital Signs Temp Pulse Pulse Resp BP Pulse Ox 10/08/21 15:35 75 10/08/21 15:32 37.0 C 74 20 121/74 93 10/08/21 14:23 82 18 90 10/08/21 11:39 36.8 C 76 20 134/73 92 10/08/21 10:02 92 H 22 91 Laboratory Results Laboratory Results - last 24 hr 10/07/21 10/08/21 10/08/21 20:15 06:57 07:43 Sodium 138 Potassium 3.8 Chloride 105 Carbon Dioxide 25 Anion Gap 8.0 BUN 44 H Creatinine 1.41 H D Est Cr Clr Drug Dosing 42.3 Est GFR ( Amer) 44.9 Est GFR (Non-Af Amer) 38.7 BUN/Creatinine Ratio 31.4 H Glucose 80 POC Glucose 101 H 80 Calcium 8.5 Magnesium 2.3 AST 23 ALT 28 10/08/21 10/08/21 11:37 16:43 Sodium Potassium Chloride Carbon Dioxide Anion Gap BUN Creatinine Est Cr Clr Drug Dosing Est GFR ( Amer) Est GFR (Non-Af Amer) BUN/Creatinine Ratio Glucose POC Glucose 114 H 234 H Calcium Magnesium AST ALT PG Care Time/CCT Total # of Minutes Spent Total Time Spent with Patient: Total time spent is greater than 50% in coordination of care (as documented) at patient's floor/unit and/or counseling patient: Coding Level of Care Code 85808 Subseq Hosp Care Lvl 2 Diagnoses Pneumonia due to COVID-19 virus U07.1; J12.82 Acute respiratory failure with hypoxia J96.01 Urinary tract infection N39.0 Hematuria presence: without hematuria Urinary tract infection type: site unspecified Hypothyroidism E03.9 Hypothyroidism type: unspecified Acute congestive heart failure I50.9 Stage 3 chronic kidney disease N18.30 Hypertension I10 DVT prophylaxis Z29.9 Diabetes mellitus type II, controlled E11.9; Z79.4 Diabetes mellitus complication status: without complication Diabetes mellitus joint terminal attack controller insulin use: with joint terminal attack controller use (1) Urinary tract infection Hematuria presence: without hematuria Urinary tract infection type: site unsp ecified Qualified Code(s): N39.0 - Urinary tract infection, site not specified (2) Hypothyroidism Hypothyroidism type: unspecified Qualified Code(s): E03.9 - Hypothyroidism, unspecified (3) Diabetes mellitus type II, controlled Diabetes mellitus complication status: without complication Diabetes mellitus joint terminal attack controller insulin use: with senior care use Qualified Code(s): E11.9 - Type 2 diabetes mellitus without complications; Z79.4 - group home (current) use of insulin
[2021-10-08] MEDS: MELATONIN 3 MG TAB PO SCH (20:28)
[2021-10-09] MEDS: LEVOTHYROXINE SODIUM 100 MCG TABLET PO SCH (06:19)
[2021-10-09] MEDS: MAGNESIUM OXIDE 400 MG TAB PO SCH (08:18)
[2021-10-09] MEDS: CHOLECALCIFEROL 1,000 UNITS 25 MCG TAB PO SCH (08:18)
[2021-10-09] MEDS: BENZONATATE 100 MG CAPSULE PO SCH ×3 (08:18→19:54)
[2021-10-09] MEDS: PANTOprazole 40 MG TAB PO SCH (08:18)
[2021-10-09] MEDS: ADVANCED PROBIOTIC 1250 MG CAPSULE PO SCH (08:18)
[2021-10-09] MEDS: dexAMETHasone 6 MG in SYRINGE 0 ML IV SCH (08:18)
[2021-10-09] MEDS: METOPROLOL SUCC 25MG EXT REL TAB PO SCH (08:19)
[2021-10-09] MEDS: lisinopril 40 MG TAB PO SCH (08:19)
[2021-10-09] MEDS: FUROSEMIDE 20 MG TAB PO SCH (08:19)
[2021-10-09] MEDS: GABAPENTIN 100 MG CAP PO SCH ×2 (08:19→19:53)
[2021-10-09] MEDS: INSULIN ASPART PER UNIT SC SCH ×4 (08:22→20:24)
[2021-10-09] MEDS: ACETAMINOPHEN 325 MG TAB PO PRN (08:34)
[2021-10-09] MEDS: CYCLOBENZAPRINE HCL 10 MG TAB PO SCH (08:34)
[2021-10-09] MEDS: INSULIN HUMAN NPH SC SCH (08:35)
[2021-10-09 08:52] LABS: Hematocrit (blood only) 37.6 % (37-47); Hemoglobin 11.5 g/dL (12.0-16.0); Mean Corpuscular Hemoglobin 27.6 pg (25-34); Mean Corpuscular Hgb Conc 30.6 g/dL (32-36); Mean Corpuscular Volume 90.2 fL (80-100); Mean Platelet Volume 10.1 fL (7.4-10.4); Platelet Count 460 K/uL (130-400); RDW Coefficient of Variation 14.8 % (11.5-14.5); RDW Standard Deviation 49.1 fL (36.4-46.3); Red Blood Count 4.17 M/uL (4.2-5.4); White Blood Count 14.86 K/uL (4.8-10.8)
[2021-10-09] MEDS: ASPIRIN 81 MG ECTAB PO SCH (09:09)
[2021-10-09 09:13] LABS: BUN Creatinine Ratio 37.1 (10-20); C Reactive Protein 13.5 mg/dl (0-0.29); Calcium 8.6 mg/dl (8.5-10.1); Creatinine Clr Calc Pharmacy 40.8 ml/min; Est GFR (Non-African American) 37.1 ml/min; Potassium 4.2 mmol/L (3.5-5.1)
[2021-10-09] MEDS: levoFLOXacin 750 MG TAB PO SCH (11:38)
[2021-10-09] MEDS: REMDESIVIR 100 MG in SODIUM CHLORIDE 0.9% 230 ML IV SCH (11:38)
--- NOTE | 2021-10-09 12:39 | Pharmacy Report ---
Pharmacy Glycemic Short Note 2 - Date of Service October 09, 2021 - Glycemic Short BSG Results (Last 24 hours): 10/08/21 10/08/21 10/09/21 16:43 20:29 07:31 Glucose POC Glucose 234 H 211 H 98 10/09/21 10/09/21 08:05 12:03 Glucose 97 POC Glucose 162 H OUTPATIENT ANTIDIABETIC REGIMEN: * metformin * A1c 75% ASSESSMENT: 10/08/21: * Patient well controlled for fasting and lunchtime BSGs over the past 48 hours have been satisfactory. BSGs did trend up for dinner and HS last evening. Will tighten CR slightly for 1130 and 1630 doses. * Patient remains on IV dex and is tolerating a diet. 10/07/21 * Pt has received 50 units of insulin over the past 24hrs * 25 units of basal with NPH for steroid induced hyperglycemia from dexamethasone for COVID PNA * 25 units of bolus with NovoLog * Pt with LOW BSG last evening at bedtime. Will loosen CF/CR * Pre-lunch BSG tends to be the highest of the day. Will tighten CR only for breakfast and then continue with loosened parameters for the rest of the day. * No changes needed to NPH 10/05/21 * 66 year old female admitted with COVID pneumonia. Type 2 diabetic managed on metformin at home. Steroid started last evening * Patient given 15 units of Lantus last night - fasting BSG 176 mg/dL. Anticipate blood sugars to continue to trend upward with continuation of dexamethasone, therefore will add once daily NPH to cover steroids * Will start at 0.3 units/kg of NPH for this AM, stress of 3 for novolog PLAN FOR INPATIENT GLYCEMIC CONTROL: * Hold outpatient oral diabetes medications * Basal insulin * NPH 25 units SQ daily - with Dex * Bolus insulin: loosen CF/CR for lunch, dinner, HS. Continue with tightened parameters for breakfast only * NovoLog per scale ACHS or Q6hrs while NPO * Goal Range: Low 110 mg/dL - High 140 mg/dL * Correction Factor: 20 mg/dL/unit with breakfast 30 for 1130 and 1630 (50 at HS) * Nutritional / Prandial insulin per carb ratio of 1 unit per 5.5 grams CHO consumed with breakfast and 6 for all other times (none needed at HS) PLAN FOR DISCHARGE: * A1c 7.5% - goal ~7%, reasonable to continue home regimen as long as no cont raindications present
[2021-10-09] MEDS: SODIUM CHLORIDE 0.9% 10ML FLUSH IV SCH (13:10)
[2021-10-09] MEDS: ENOXAPARIN INJ 30 MG/0.3 ML SYR SQ SCH (17:32)
--- NOTE | 2021-10-09 18:10 | Hospitalist Progress Note ---
Date of Service October 09, 2021 Assessment & Plan (1) Pneumonia due to COVID-19 virus: Plan: Severe disease - her immunocompromised state at baseline (on chronic prednisone, etc for RA) set her up for severe disease. Remdesivir day #4; CrCl remains >30. day #5 of dexamethasone 6mg daily. - Improving today. Down to 6L while I was in the room with O2 sat stable ~92- 93%. (2) Acute respiratory failure with hypoxia: Plan: 2nd to #1 can't rule out acute diastolic CHF steroids, diuretics, HFNC, supportive care slowly improving (3) Urinary tract infection: Plan: Recurrent UTIs. No nidus for infection (stone, etc) on CT a/p at admission small colony count of pansensitive e.coli - this is the 4th time she has grown such from her urine in the last couple of months initially was on cefepime - changed to levaquin levaquin will cover the lungs for any superimposed bacterial process of lungs once 7-day run of IV cefepime/PO levaquin is complete consider low-dose amox or keflex for another week then repeat u/a and urine cx to ensure complete clearance (4) Hypothyroidism: Plan: TSH 04/2021 wnl cont synthroid (5) Acute congestive heart failure: Plan: Suspected. Acute diastolic CHF. - Cont lasix 20mg po daily - BMP am (6) Stage 3 chronic kidney disease: Plan: CrCl low 30s at baseline CrCl 40s today bmp am (7) Hypertension: Plan: BP was 120/75 today. - Continue home lisinopril and metoprolol. (8) DVT prophylaxis: Plan: Lovenox 30 mg SQ QAM (9) Diabetes mellitus type II, controlled: Plan: pharmacy consult & recs appreciated. A1c was 7.5% this admission. - basal-bolus SC regimen Admission and Anticipated Discharge Date Admission Date: October 04, 2021 Subjective Feeling better today. Able to get up and move around. Reports no fevers/chills, chest pain, shortness of breath, abdominal pain, nausea, or vomiting. Physical Exam Constitutional: WD/WN, vitals as above Eyes: EOM intact bilaterally; no conjunctival abnormality ENMT: external ear and nose normal, oropharynx normal Neck: trachea midline, no thyromegaly normal visual inspection Respiratory: normal respiratory effort, lungs clear to auscultation no respiratory distress Cardiovascular: RRR, no murmur, no edema Gastrointestinal (Abdomen): Inspection/Auscultation: abdomen normal to inspection; abdomen not distended Musculoskeletal: no cyanosis or clubbing, extremities motor strength 5/5 Skin: no rashes, warm and dry Neurologic: moves all extremities and awake Psychiatric: Orientation: alert, oriented to person and cooperative Results & Data Results & Data ([facility]) Vital Signs (Past 12 Hours) Vital Signs Temp Pulse Pulse Resp BP Pulse Ox Pulse Ox 10/09/21 15:54 36.9 C 76 18 121/77 92 10/09/21 15:41 83 10/09/21 13:21 90 10/09/21 13:11 90 10/09/21 13:05 93 10/09/21 12:06 36.7 C 78 18 121/71 92 10/09/21 07:34 36.7 C 64 18 153/87 H 94 10/09/21 07:21 76 Pulse Ox Pulse Ox 10/09/21 15:54 10/09/21 15:41 10/09/21 13:21 92 88 L 10/09/21 13:11 10/09/21 13:05 10/09/21 12:06 10/09/21 07:34 10/09/21 07:21 PG Care Time/CCT Total # of Minutes Spent Total Time Spent with Patient: Total time spent is greater than 50% in coordination of care (as documented) at patient's floor/unit and/or counseling patient: Coding Level of Care Code 86252 Subseq Hosp Care Lvl 2 Diagnoses Pneumonia due to COVID-19 virus U07.1; J12.82 Acute respiratory failure with hypoxia J96.01 Urinary tract infection N39.0 Hematuria presence: without hematuria Urinary tract infection type: site unspecified Hypothyroidism E03.9 Hypothyroidism type: unspecified Acute congestive heart failure I50.9 Stage 3 chronic kidney disease N18.30 Hypertension I10 DVT prophylaxis Z29.9 Diabetes mellitus type II, controlled E11.9; Z79.4 Diabetes mellitus complication status: without complication Diabetes mellitus ict account manager insulin use: with [facility] use (1) Urinary tract infection Hematuria presence: without hematuria Urinary tract infection type: site unsp ecified Qualified Code(s): N39.0 - Urinary tract infection, site not specified (2) Hypothyroidism Hypothyroidism type: unspecified Qualified Code(s): E03.9 - Hypothyroidism, unspecified (3) Diabetes mellitus type II, controlled Diabetes mellitus complication status: without complication Diabetes mellitus [facility] insulin use: with ict account manager use Qualified Code(s): E11.9 - Type 2 diabetes mellitus without complications; Z79.4 - speech language specialist (current) use of insulin
[2021-10-09] MEDS: MELATONIN 3 MG TAB PO SCH (19:54)
[2021-10-10] MEDS: LEVOTHYROXINE SODIUM 100 MCG TABLET PO SCH (06:19)
[2021-10-10 06:57] LABS: Hemoglobin 10.5 g/dL (12.0-16.0); Mean Corpuscular Hemoglobin 27.9 pg (25-34); Mean Corpuscular Hgb Conc 30.9 g/dL (32-36); Mean Corpuscular Volume 90.4 fL (80-100); Mean Platelet Volume 9.8 fL (7.4-10.4); Platelet Count 449 K/uL (130-400); RDW Coefficient of Variation 14.8 % (11.5-14.5); RDW Standard Deviation 48.8 fL (36.4-46.3); Red Blood Count 3.76 M/uL (4.2-5.4); White Blood Count 15.61 K/uL (4.8-10.8)
[2021-10-10 07:24] LABS: BUN Creatinine Ratio 39.1 (10-20); Calcium 8.8 mg/dl (8.5-10.1); Creatinine Clr Calc Pharmacy 37.9 ml/min; Est GFR (African American) 44.5 ml/min; Est GFR (Non-African American) 38.4 ml/min; Magnesium 2.6 mg/dl (1.8-2.4); Potassium 4.4 mmol/L (3.5-5.1)
--- NOTE | 2021-10-10 09:02 | Pharmacy Report ---
Pharmacy Glycemic Short Note 2 - Date of Service October 10, 2021 - Glycemic Short BSG Results (Last 24 hours): 10/09/21 10/09/21 10/09/21 08:05 12:03 16:22 Glucose 97 POC Glucose 162 H 313 H* 10/09/21 10/09/21 10/10/21 16:26 20:09 06:16 Glucose 90 POC Glucose 291 H 199 H 10/10/21 07:37 Glucose POC Glucose 98 OUTPATIENT ANTIDIABETIC REGIMEN: * Metformin 500 mg PO BIDM * A1c 7.5% (10/05/21) ASSESSMENT: 10/10 * BSGs increased throughout the day yesterday, 98, 162, 313, and 199 mg/dL * Received 25 units of NPH and 34 units of prandial/correctional Novolog (59 units total) * Given BSG trend, will increase NPH today to full 0.4 unit/kg dosing to be given with IV dexamethasone 10/09/21: * Patient well controlled for fasting and lunchtime BSGs over the past 48 hours have been satisfactory. BSGs did trend up for dinner and HS last evening. Will tighten CR slightly for 1130 and 1630 doses. * Patient remains on IV dex and is tolerating a diet. 10/07/21 * Pt has received 50 units of insulin over the past 24hrs * 25 units of basal with NPH for steroid induced hyperglycemia from dexamethasone for COVID PNA * 25 units of bolus with NovoLog * Pt with LOW BSG last evening at bedtime. Will loosen CF/CR * Pre-lunch BSG tends to be the highest of the day. Will tighten CR only for breakfast and then continue with loosened parameters for the rest of the day. * No changes needed to NPH 10/05/21 * 66 year old female admitted with COVID pneumonia. Type 2 diabetic managed on metformin at home. Steroid started last evening * Patient given 15 units of Lantus last night - fasting BSG 176 mg/dL. Anticipate blood sugars to continue to trend upward with continuation of dexamethasone, therefore will add once daily NPH to cover steroids * Will start at 0.3 units/kg of NPH for this AM, stress of 3 for novolog PLAN FOR INPATIENT GLYCEMIC CONTROL: * Hold outpatient oral diabetes medications * Basal insulin - increase to 0.4 unit/kg * NPH 30 units SQ daily with IV dexamethasone * Bolus insulin: continue * NovoLog per scale ACHS or Q6hrs while NPO * Goal Range: Low 110 mg/dL - High 140 mg/dL * Correction Factor: 20 mg/dL/unit with breakfast 30 for 1130 and 1630 (50 at HS) * Nutritional / Prandial insulin per carb ratio of 1 unit per 5.5 grams CHO consumed with breakfast and 6 for all other times (none needed at HS) PLAN FOR DISCHARGE: * A1c 7.5% - goal ~7%, reasonable to continue home regimen as long as no contraindications present * Current metformin dose of 500 mg PO BIDM is maximum recommended dose based on patient's estimated GFR
[2021-10-10] MEDS: ADVANCED PROBIOTIC 1250 MG CAPSULE PO SCH (09:13)
[2021-10-10] MEDS: INSULIN ASPART PER UNIT SC SCH ×4 (09:13→21:31)
[2021-10-10] MEDS: lisinopril 40 MG TAB PO SCH (09:13)
[2021-10-10] MEDS: ASPIRIN 81 MG ECTAB PO SCH (09:15)
[2021-10-10] MEDS: MAGNESIUM OXIDE 400 MG TAB PO SCH (09:15)
[2021-10-10] MEDS: CHOLECALCIFEROL 1,000 UNITS 25 MCG TAB PO SCH (09:15)
[2021-10-10] MEDS: METOPROLOL SUCC 25MG EXT REL TAB PO SCH (09:16)
[2021-10-10] MEDS: PANTOprazole 40 MG TAB PO SCH (09:16)
[2021-10-10] MEDS: BENZONATATE 100 MG CAPSULE PO SCH ×3 (09:17→21:21)
[2021-10-10] MEDS: FUROSEMIDE 20 MG TAB PO SCH (09:17)
[2021-10-10] MEDS: GABAPENTIN 100 MG CAP PO SCH ×2 (09:17→21:21)
[2021-10-10] MEDS: dexAMETHasone 6 MG in SYRINGE 0 ML IV SCH (09:18)
[2021-10-10] MEDS: INSULIN HUMAN NPH SC SCH (09:19)
[2021-10-10] MEDS: CYCLOBENZAPRINE HCL 10 MG TAB PO SCH (09:25)
--- NOTE | 2021-10-10 16:11 | Hospitalist Progress Note ---
Date of Service October 10, 2021 Assessment & Plan (1) Pneumonia due to COVID-19 virus: Plan: Severe disease - her immunocompromised state at baseline (on chronic prednisone, etc for RA) set her up for severe disease. Finished remdesivir. - Continue dexamethasone 6mg daily; end date: 10/13/2020. - Improving today. Down to 6L while I was in the room with O2 sat stable ~92- 93%. (2) Acute respiratory failure with hypoxia: Plan: 2nd to #1 - Slowly improving (3) Urinary tract infection: Plan: Recurrent UTIs. No nidus for infection (stone, etc) on CT a/p at admission. Small colony count of pansensitive e.coli - this is the 4th time she has grown such from her urine in the last couple of months. initially was on cefepime - changed to Levaquin Levaquin will cover the lungs for any superimposed bacterial process of lungs. once 7-day run of IV cefepime/PO Levaquin is complete consider low-dose amox or Keflex for another week then repeat u/a and urine cx to ensure complete clearance (4) Diabetes mellitus type II, controlled: Plan: pharmacy consult & recs appreciated. A1c was 7.5% this admission. - basal-bolus SC regimen - Sugars have been 100-200 in last 24 hours. (5) Hypothyroidism: Plan: TSH 04/2021 wnl cont synthroid (6) Acute congestive heart failure: Plan: Suspected. Acute diastolic CHF. - Cont lasix 20mg po daily - BMP am (7) Stage 3 chronic kidney disease: Plan: Baseline Cr ~1.4 - 1.6. CrCl low 30s at baseline. - Presently at baseline. - Monitor (8) Hypertension: Plan: BP was 105/75 today. - Continue home lisinopril and metoprolol. (9) DVT prophylaxis: Plan: Lovenox 30 mg SQ QAM Admission and Anticipated Discharge Date Admission Date: October 04, 2021 Subjective Feeling well today. Able to get up and move around. Reports no fevers/chills, chest pain, shortness of breath, abdominal pain, nausea, or vomiting. Physical Exam Constitutional: WD/WN, vitals as above Eyes: EOM intact bilaterally; no conjunctival abnormality ENMT: external ear and nose normal, oropharynx normal Neck: trachea midline, no thyromegaly normal visual inspection Respiratory: normal respiratory effort, lungs clear to auscultation no respiratory distress Cardiovascular: RRR, no murmur, no edema Gastrointestinal (Abdomen): Inspection/Auscultation: abdomen normal to inspection; abdomen not distended Musculoskeletal: no cyanosis or clubbing, extremities motor strength 5/5 Skin: no rashes, warm and dry Neurologic: moves all extremities and awake Psychiatric: Orientation: alert, oriented to person and cooperative Results & Data Results & Data ([facility]) Vital Signs (Past 12 Hours) Vital Signs Temp Pulse Pulse Resp BP Pulse Ox 10/10/21 15:44 37.2 C 63 20 106/68 95 10/10/21 15:00 69 10/10/21 12:39 36.9 C 74 20 139/84 95 10/10/21 09:45 36.9 C 93 H 19 90 10/10/21 07:30 75 PG Care Time/CCT Total # of Minutes Spent Total Time Spent with Patient: Total time spent is greater than 50% in coordination of care (as documented) at patient's floor/unit and/or counseling patient: Coding Level of Care Code 67511 Subseq Hosp Care Lvl 2 Diagnoses Pneumonia due to COVID-19 virus U07.1; J12.82 Acute respiratory failure with hypoxia J96.01 Urinary tract infection N39.0 Hematuria presence: without hematuria Urinary tract infection type: site unspecified Hypothyroidism E03.9 Hypothyroidism type: unspecified Acute congestive heart failure I50.9 Stage 3 chronic kidney disease N18.30 Hypertension I10 DVT prophylaxis Z29.9 Diabetes mellitus type II, controlled E11.9; Z79.4 Diabetes mellitus complication status: without complication Diabetes mellitus snf insulin use: with intermodal customer service use (1) Urinary tract infection Hematuria presence: without hematuria Urinary tract infection type: site unspecified Qualified Code(s): N39.0 - Urinary tract infection, site not specified (2) Hypothyroidism Hypothyroidism type: unspecified Qualified Code(s): E03.9 - Hypothyroidism, unspecified (3) Diabetes mellitus type II, controlled Diabetes mellitus complication status: without complication Diabetes mellitus snf insulin use: with intermodal customer service use Qualified Code(s): E11.9 - Type 2 diabetes mellitus without complications; Z79.4 - terminal press operator (current) use of insulin
[2021-10-10] MEDS: ENOXAPARIN INJ 30 MG/0.3 ML SYR SQ SCH (17:47)
[2021-10-10] MEDS: MELATONIN 3 MG TAB PO SCH (21:22)
[2021-10-11] MEDS: LEVOTHYROXINE SODIUM 100 MCG TABLET PO SCH (06:27)
[2021-10-11 06:49] LABS: Hematocrit (blood only) 34.2 % (37-47); Hemoglobin 10.6 g/dL (12.0-16.0); Mean Corpuscular Hemoglobin 28.4 pg (25-34); Mean Corpuscular Volume 91.7 fL (80-100); Platelet Count 464 K/uL (130-400); RDW Coefficient of Variation 15.1 % (11.5-14.5); RDW Standard Deviation 51.1 fL (36.4-46.3); Red Blood Count 3.73 M/uL (4.2-5.4); White Blood Count 15.69 K/uL (4.8-10.8)
[2021-10-11 07:19] LABS: BUN Creatinine Ratio 41.6 (10-20); Calcium 8.6 mg/dl (8.5-10.1); Creatinine Clr Calc Pharmacy 38.3 ml/min; Est GFR (Non-African American) 35.4 ml/min; Magnesium 2.4 mg/dl (1.8-2.4); Potassium 4.3 mmol/L (3.5-5.1)
[2021-10-11] MEDS: MAGNESIUM OXIDE 400 MG TAB PO SCH (07:50)
[2021-10-11] MEDS: METOPROLOL SUCC 25MG EXT REL TAB PO SCH (07:50)
[2021-10-11] MEDS: PANTOprazole 40 MG TAB PO SCH (07:50)
[2021-10-11] MEDS: CYCLOBENZAPRINE HCL 10 MG TAB PO SCH (07:50)
[2021-10-11] MEDS: GABAPENTIN 100 MG CAP PO SCH ×2 (07:51→20:49)
[2021-10-11] MEDS: FUROSEMIDE 20 MG TAB PO SCH (07:51)
[2021-10-11] MEDS: ADVANCED PROBIOTIC 1250 MG CAPSULE PO SCH (07:51)
[2021-10-11] MEDS: ASPIRIN 81 MG ECTAB PO SCH (07:51)
[2021-10-11] MEDS: CHOLECALCIFEROL 1,000 UNITS 25 MCG TAB PO SCH (07:51)
[2021-10-11] MEDS: BENZONATATE 100 MG CAPSULE PO SCH ×3 (07:51→20:49)
[2021-10-11] MEDS: lisinopril 40 MG TAB PO SCH (07:51)
[2021-10-11] MEDS: dexAMETHasone 6 MG in SYRINGE 0 ML IV SCH (07:51)
[2021-10-11] MEDS: INSULIN HUMAN NPH SC SCH (07:56)
[2021-10-11] MEDS: INSULIN ASPART PER UNIT SC SCH ×4 (07:57→20:46)
[2021-10-11] MEDS: levoFLOXacin 750 MG TAB PO SCH (10:57)
--- NOTE | 2021-10-11 11:14 | Pharmacy Report ---
Pharmacy Glycemic Short Note 2 - Date of Service October 11, 2021 - Glycemic Short BSG Results (Last 24 hours): 10/10/21 10/10/21 10/10/21 11:52 17:05 20:24 Glucose POC Glucose 127 H 99 82 10/11/21 10/11/21 10/11/21 06:02 07:31 11:02 Glucose 89 POC Glucose 85 147 H OUTPATIENT ANTIDIABETIC REGIMEN: * Metformin 500 mg PO BIDM * A1c 7.5% (10/05/21) ASSESSMENT: 10/11: * BSGs very well controlled yesterday; 98, 127, 99, 82 mg/dL * Will decrease carb coverage with lunch and dinner to avoid hypoglycemia later in the day * If fasting BSG decreases further on 10/12, may need to resume 25 units of NPH 10/10 * BSGs increased throughout the day yesterday, 98, 162, 313, and 199 mg/dL * Received 25 units of NPH and 34 units of prandial/correctional Novolog (59 units total) * Given BSG trend, will increase NPH today to full 0.4 unit/kg dosing to be given with IV dexamethasone 10/09/21: * Patient well controlled for fasting and lunchtime BSGs over the past 48 hours have been satisfactory. BSGs did trend up for dinner and HS last evening. Will tighten CR slightly for 1130 and 1630 doses. * Patient remains on IV dex and is tolerating a diet. 10/07/21 * Pt has received 50 units of insulin over the past 24hrs * 25 units of basal with NPH for steroid induced hyperglycemia from dexamethasone for COVID PNA * 25 units of bolus with NovoLog * Pt with LOW BSG last evening at bedtime. Will loosen CF/CR * Pre-lunch BSG tends to be the highest of the day. Will tighten CR only for breakfast and then continue with loosened parameters for the rest of the day. * No changes needed to NPH 10/05/21 * 66 year old female admitted with COVID pneumonia. Type 2 diabetic managed on metformin at home. Steroid started last evening * Patient given 15 units of Lantus last night - fasting BSG 176 mg/dL. Anticipate blood sugars to continue to trend upward with continuation of dexamethasone, therefore will add once daily NPH to cover steroids * Will start at 0.3 units/kg of NPH for this AM, stress of 3 for novolog PLAN FOR INPATIENT GLYCEMIC CONTROL: * Hold outpatient oral diabetes medications * Basal insulin - increase to 0.4 unit/kg * NPH 30 units SQ daily with IV dexamethasone * Bolus insulin: loosen carb coverage with lunch and dinner * NovoLog per scale ACHS or Q6hrs while NPO * Goal Range: Low 110 mg/dL - High 140 mg/dL * Correction Factor: 20 mg/dL/unit with breakfast, 30 for 1130 and 1630, 50 at HS * Nutritional / Prandial insulin per carb ratio of 1 unit per 5.5 grams CHO consumed with breakfast and 7 for lunch & dinner (none needed at HS) PLAN FOR DISCHARGE: * A1c 7.5% - goal ~7%, reasonable to continue home regimen as long as no contraindications present * Current metformin dose of 500 mg PO BIDM is maximum recommended dose based on patient's estimated GFR
--- NOTE | 2021-10-11 15:29 | Hospitalist Progress Note ---
Date of Service October 11, 2021 Assessment & Plan (1) Pneumonia due to COVID-19 virus: Plan: Severe disease - her immunocompromised state at baseline (on chronic prednisone, etc for RA) set her up for severe disease. Finished remdesivir. - Continue dexamethasone 6mg daily; end date: 10/13/2020. - Improving today. Down to 2L at rest and 4L with ambulation. Home O2 being arranged. (2) Acute respiratory failure with hypoxia: Plan: 2nd to #1 - Slowly improving (3) Urinary tract infection: Plan: Recurrent UTIs. No nidus for infection (stone, etc) on CT a/p at admission. Small colony count of pansensitive e.coli - this is the 4th time she has grown such from her urine in the last couple of months. initially was on cefepime - changed to Levaquin Levaquin will cover the lungs for any superimposed bacterial process of lungs. Finished levofloxacin in the hospital. Can return to home trimethoprim on discharge. (4) Diabetes mellitus type II, controlled: Plan: pharmacy consult & recs appreciated. A1c was 7.5% this admission. - basal-bolus SC regimen - Sugars have been 100-200 in last 24 hours. (5) Hypothyroidism: Plan: TSH 04/2021 wnl cont synthroid (6) Acute congestive heart failure: Plan: Suspected. Acute diastolic CHF. - Finish Lasix while in the hospital. - BMP am (7) Stage 3 chronic kidney disease: Plan: Baseline Cr ~1.4 - 1.6. CrCl low 30s at baseline. - Presently at baseline. - Monitor (8) Hypertension: Plan: BP was 135/75 today. - Continue home lisinopril and metoprolol. (9) DVT prophylaxis: Plan: Lovenox 30 mg SQ QAM Admission and Anticipated Discharge Date Admission Date: October 04, 2021 Subjective Feeling well today. Able to get up and move around. Reports no fevers/chills, chest pain, shortness of breath, abdominal pain, nausea, or vomiting. Physical Exam Constitutional: WD/WN, vitals as above Eyes: EOM intact bilaterally; no conjunctival abnormality ENMT: external ear and nose normal, oropharynx normal Neck: trachea midline, no thyromegaly normal visual inspection Respiratory: normal respiratory effort, lungs clear to auscultation no respiratory distress Cardiovascular: RRR, no murmur, no edema Gastrointestinal (Abdomen): Inspection/Auscultation: abdomen normal to inspection; abdomen not distended Musculoskeletal: no cyanosis or clubbing, extremities motor strength 5/5 Skin: no rashes, warm and dry Neurologic: moves all extremities and awake Psychiatric: Orientation: alert, oriented to person and cooperative Results & Data Results & Data ([facility]) Vital Signs (Past 12 Hours) Vital Signs Temp Pulse Pulse Pulse Pulse Pulse Pulse 10/11/21 14:12 64 71 74 68 66 10/11/21 13:52 10/11/21 11:27 36.4 C L 78 10/11/21 08:43 36.8 C 68 10/11/21 04:00 36.7 C 67 Resp Resp Resp Resp Resp Resp BP 10/11/21 14:12 18 18 18 18 18 10/11/21 13:52 10/11/21 11:27 19 10/11/21 08:43 20 10/11/21 04:00 18 113/69 BP Pulse Ox Pulse Ox Pulse Ox Pulse Ox Pulse Ox Pulse Ox 10/11/21 14:12 91 90 85 L 91 85 L 10/11/21 13:52 92 10/11/21 11:27 132/80 91 10/11/21 08:43 110/71 93 10/11/21 04:00 90 PG Care Time/CCT Total # of Minutes Spent Total Time Spent with Patient: Total time spent is greater than 50% in coordination of care (as documented) at patient's floor/unit and/or counseling patient: Coding Level of Care Code 66929 Subseq Hosp Care Lvl 2 Diagnoses Pneumonia due to COVID-19 virus U07.1; J12.82 Acute respiratory failure with hypoxia J96.01 Urinary tract infection N39.0 Hematuria presence: without hematuria Urinary tract infection type: site unspecified Diabetes mellitus type II, controlled E11.9; Z79.4 Diabetes mellitus complication status: without complication Diabetes mellitus [facility] insulin use: with technician terminal and repeater use Hypothyroidism E03.9 Hypothyroidism type: unspecified Acute congestive heart failure I50.9 Stage 3 chronic kidney disease N18.30 Hypertension I10 DVT prophylaxis Z29.9 (1) Urinary tract infection Hematuria presence: without hematuria Urinary tract infection type: site unspecified Qualified Code(s): N39.0 - Urinary tract infection, site not specified (2) Diabetes mellitus type II, controlled Diabetes mellitus complication status: without complication Diabetes mellitus [facility] insulin use: with technician terminal and repeater use Qualified Code(s): E11.9 - Type 2 diabetes mellitus without complications; 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
[2021-10-11] MEDS: ENOXAPARIN INJ 30 MG/0.3 ML SYR SQ SCH (17:46)
[2021-10-11] MEDS: MELATONIN 3 MG TAB PO SCH (20:49)
[2021-10-12] MEDS: LEVOTHYROXINE SODIUM 100 MCG TABLET PO SCH (06:14)
[2021-10-12] MEDS ORDERED: GLUCOSE 40% GEL 15 GM TUBE PO PRN (07:30)
[2021-10-12] MEDS ORDERED: GLUCOSE 10 TABS/TUBE PO PRN (07:30)
[2021-10-12] MEDS ORDERED: CARBOHYDRATES FOR HYPOGLYCEMIA PO PRN (07:30)
[2021-10-12] MEDS ORDERED: GLUCAGON FOR INJ 1 MG VIAL IM PRN (07:30)
[2021-10-12] MEDS ORDERED: DEXTROSE 50% 50 ML SYRINGE IV PRN (07:30)
[2021-10-12] MEDS: dexAMETHasone 6 MG in SYRINGE 0 ML IV SCH (08:30)
[2021-10-12] MEDS: GABAPENTIN 100 MG CAP PO SCH (08:30)
[2021-10-12] MEDS: BENZONATATE 100 MG CAPSULE PO SCH ×2 (08:30→14:08)
[2021-10-12] MEDS: MAGNESIUM OXIDE 400 MG TAB PO SCH (08:31)
[2021-10-12] MEDS: lisinopril 40 MG TAB PO SCH (08:31)
[2021-10-12] MEDS: ADVANCED PROBIOTIC 1250 MG CAPSULE PO SCH (08:31)
[2021-10-12] MEDS: CHOLECALCIFEROL 1,000 UNITS 25 MCG TAB PO SCH (08:32)
[2021-10-12] MEDS: ASPIRIN 81 MG ECTAB PO SCH (08:32)
[2021-10-12] MEDS: PANTOprazole 40 MG TAB PO SCH (08:33)
[2021-10-12] MEDS: METOPROLOL SUCC 25MG EXT REL TAB PO SCH (08:33)
[2021-10-12] MEDS: INSULIN HUMAN NPH SC SCH (08:38)
[2021-10-12] MEDS: CYCLOBENZAPRINE HCL 10 MG TAB PO SCH (08:46)
[2021-10-12] MEDS: INSULIN ASPART PER UNIT SC SCH ×2 (08:46→12:19)
--- NOTE | 2021-10-12 17:21 | Discharge Summary ---
Date of Service October 12, 2021 Admission HPI Per Admitting Provider Mrs. Champagne is a 66 year old female with a history of Rheumatoid Arthritis, Type 2 Diabetes Mellitus, Diabetic Neuropathy, Arthritis, Hypertension, Stage 3 CKD, Chronic Anemia, CVA s/p TPA, Vertebral Artery Stenosis, Carotid Artery Stenosis, and Recurrent UTI's who presented acutely to [facility] ER today complaining of malaise, generalized weakness, KRISHNA, headache, dysuria, urinary frequency, urinary urgency, and abdominal discomfort. Patient has been dealing with recurrent UTI symptoms since June and has been on 4 different courses of antibiotics since then. Urinary symptoms usually clear up relatively quickly -- but within 7 to 10 days of stopping the antibiotic her urinary symptoms return. Last Friday09/26/21, patient received her COVID booster shot and felt poorly the following day, and since then her symptoms have only worsened. She has the above mentioned symptoms since the day after getting the COVID booster but yesterday and today her generalized weakness seems worse -- she states that she could barely get out of bed. Patient has had a mild cough but no sputum production. She denies any fevers (although she is febrile in the ER), chills, stiff neck, pleuritic chest pain, chest pain, hemoptysis, nausea, vomiting, or diarrhea. Patient is compliant with her medications and has not had any adverse side effects. Her blood sugars are running at baseline. Principal Diagnosis Covid-19 pneumonia Discharge Exam Constitutional WD/WN, vitals as above Eyes EOM intact bilaterally; no conjunctival abnormality ENMT external ear and nose normal, oropharynx normal Neck trachea midline, no thyromegaly normal visual inspection Respiratory normal respiratory effort, lungs clear to auscultation no respiratory distress Cardiovascular RRR, no murmur, no edema Gastrointestinal (Abdomen) Inspection/Auscultation: abdomen normal to inspection; abdomen not distended Musculoskeletal no cyanosis or clubbing, extremities motor strength 5/5 Skin no rashes, warm and dry Neurologic moves all extremities and awake Psychiatric Orientation: alert, oriented to person and cooperative Discharge Data Allergies Allergy/AdvReac Type Severity Reaction Status Date / Time nitrofurantoin Allergy Severe HEADACHE Verified 10/04/21 13:41 tetracycline Allergy Severe RASH ON Verified 10/04/21 13:41 FACE Xzdbpmx-HZI-XrF Reductase AdvReac Intermediate LE edema Verified 10/04/21 13:41 Inhibitor [Xolvanu-Szg-Dcb Reductase Inhibitor] oxycodone AdvReac Drowsy Verified 10/04/21 13:41 Consultations 10/04/21 13:53 ED Decision to Admit Stat Ordered Studies 10/04/21 13:44 CT abd pelvis wo con Stat Hospital Course (1) Pneumonia due to COVID-19 virus: Severe disease - her immunocompromised state at baseline (on chronic prednisone, etc for RA) set her up for severe disease. Finished remdesivir. - Continue dexamethasone 6mg daily. - Improving today. Down to 2L at rest and 4L with ambulation. Home O2 being arranged. Return to home steroids on discharge for her RA. (2) Acute respiratory failure with hypoxia: 2nd to #1 - Slowly improving (3) Urinary tract infection: Recurrent UTIs. No nidus for infection (stone, etc) on CT a/p at admission. Small colony count of pansensitive e.coli - this is the 4th time she has grown such from her urine in the last couple of months. initially was on cefepime - changed to Levaquin Levaquin will cover the lungs for any superimposed bacterial process of lungs. Finished levofloxacin in the hospital. Can return to home trimethoprim on discharge. (4) Diabetes mellitus type II, controlled: pharmacy consult & recs appreciated. A1c was 7.5% this admission. - basal-bolus SC regimen - Sugars have been 100-200 in last 24 hours. (5) Hypothyroidism: TSH 04/2021 wnl cont synthroid (6) Acute congestive heart failure: Suspected. Acute diastolic CHF. - Finish Lasix while in the hospital. Not on previously, and no indication of volume overload on discharge. - BMP am (7) Stage 3 chronic kidney disease: Baseline Cr ~1.4 - 1.6. CrCl low 30s at baseline. - Presently at baseline. - Monitor (8) Hypertension: BP was 135/75 today. - Continue home lisinopril and metoprolol. (9) DVT prophylaxis: Lovenox 30 mg SQ QAM Total Time Total Time Spent Total Time Spent (In Minutes): 35 Discharge Plan Discharge Items Patient Disposition: Home - Self-Care Reason For Visit: URINARY SX, LOWER AB PAIN, WEAKNESS Discharge Diagnosis: Covid-19 pneumonia Activity: Resume your previous activity Non-emergency contact: Primary Care Provider Call non-emergency contact if: your symptoms worsen and your rectal temperature is above 100.4 Follow-up/Referrals: Corby Arzola MD [Primary Care Provider] - 10/30/21 11:00 am Diet: Carb Consistent or DM2 and Heart Healthy Addtl Attending Provider Instructions: Ms. Champagne, You were admitted to the hospital with Covid-19 pneumonia. We treated you with steroids and oxygen to help your lungs heal. We also provided antibiotics in case you had any bacteria in the lungs. Luckily, you got better over the course of about 7 days. Now you are on stable (and improving!) oxygen, and we are ready to get you home. Please see Dr. Arzola or a colleague in the office next week or so to check in on how you are doing. Pending Studies at Discharge: No Stand-Alone Forms: [facility] [employer], Smoking Cessation Medications and DC Order Prescriptions: Continued (DME) Accu-Chek Ida Plus test strp Strip See Rx Instructions .ROUTE .MEDSUPPLY Qty: 200 RF: 2 Praluent Pen 75 mg/mL pen injector 75 mg subcut Q14D Qty: 2 RF: 5 metoprolol succinate 50 mg tablet extended release 24 hr 125 mg PO DAILY Qty: 75 RF: 5 gabapentin 100 mg capsule 100 mg PO BID Qty: 60 RF: 1 levothyroxine 100 mcg tablet 100 mcg PO QAM Qty: 90 RF: 3 trimethoprim 100 mg tablet 100 mg PO DAILY 30 Days Qty: 30 RF: 2 (DME) blood-glucose meter [Accu-Chek Ida Plus Meter] Misc See Rx Instructions .ROUTE .MEDSUPPLY Qty: 1 RF: 0 lisinopril 40 mg tablet 40 mg PO DAILY Qty: 90 RF: 3 magnesium 250 mg Tablet 250 mg PO QAM RF: 0 cholecalciferol (vitamin D3) [Vitamin D3] 1,000 unit Capsule 1,000 unit PO QAM RF: 0 acetaminophen [Tylenol Extra Strength] 500 mg Tablet 1,000 mg PO Q6H PRN (Reason: Pain) RF: 0 cyclobenzaprine 10 mg tablet 10 mg PO DAILY RF: 0 prednisone 5 mg tablet 5 mg PO DAILY RF: 0 aspirin 81 mg Tablet,Delayed Release (Dr/Ec) 81 mg PO DAILY Qty: 90 RF: 0 metformin 500 mg tablet 500 mg PO BID Qty: 60 RF: 5 coenzyme Q10 200 mg capsule 200 mg PO DAILY Qty: 30 RF: 1 omeprazole 40 mg capsule,delayed release(DR/EC) 40 mg PO DAILY Qty: 30 RF: 5 Discontinued sulfamethoxazole-trimethoprim [Bactrim DS] 800-160 mg tablet 1 tab PO BID 2 Days Qty: 4 RF: 0 Discharge Orders: Discharge Order (Routine); Ordered 10/12/21 Ordered By: Cody Leon/Other Patient Handouts: COVID-19 Home Care, Managing Type 2 Diabetes Admission Data Admit Date/Time: 10/04/21 15:47 Attending Provider: Cody Palacios Admit Provider: Adam Keane Primary Care Provider: Corby Arzola Other Providers: Cody Palacios Other Interventions: Discharge Summary Assessment (RN) Last Done: 10/12/21 12:33 Coding Level of Care Code D/C DAY MANAGEMENT >30 MINS Diagnoses Pneumonia due to COVID-19 virus U07.1; J12.82 Acute respiratory failure with hypoxia J96.01 Urinary tract infection N39.0 Hematuria presence: without hematuria Urinary tract infection type: site unspecified Diabetes mellitus type II, controlled E11.9; Z79.4 Diabetes mellitus complication status: without complication 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
== END 2021-10-12 14:57 | disposition home or self-care (01) | DRG 177 ==
LOC: ED 10:18 → EDINP 15:47 → SUATTDRO 15:47 → 2W 20:53

== ENCOUNTER 2022-09-16 19:21 | Inpatient (IN) ==
[2022-09-16 21:35] LABS: Basophils # (auto) 0.06 K/uL (0-0.2); Basophils % (auto) 0.3 %; Eosinophils # (auto) 0.13 K/uL (0-0.50); Eosinophils % (auto) 0.7 %; Hematocrit (blood only) 30.6 % (34.1-44.9); Hemoglobin 9.1 g/dl (12.0-16.0); Immature Granulocytes # (auto) 0.29 K/uL (0.00-0.02); Immature Granulocytes % (auto) 1.5 %; Mean Corpuscular Hgb Conc 29.7 g/dL (32.0-36.0); Mean Corpuscular Volume 90.8 fL (80.0-100.0); Mean Platelet Volume 10.4 fL (9.4-12.3); Monocytes # (auto) 0.89 K/uL (0.24-0.82); Monocytes % (auto) 4.5 %; Neutrophils # (auto) 17.45 K/uL (1.4-6.5); Platelet Count 298 K/uL (130-400); RDW Coefficient of Variation 15.9 % (11.5-14.5); Red Blood Count 3.37 M/uL (3.93-5.22); White Blood Count 19.82 K/ul (4.8-10.8)
[2022-09-16 21:37] LABS: Alanine Aminotransferase 19 U/L (7-52); Albumin Globulin Ratio 1.2 (0.9-2); Albumin Level 3.6 gm/dl (3.4-5.0); Alkaline Phosphatase 71 U/L (34-104); Anion Gap 8 (3-11); Aspartate Aminotransferase 15 U/L (13-39); BUN Creatinine Ratio 16.4 (10-20); Bilirubin,Total 0.2 mg/dl (0.2-1.0); Blood Urea Nitrogen 44 mg/dl (6-23); Calcium 8.8 mg/dl (8.5-10.1); Carbon Dioxide 23 mmol/L (21-32); Chloride 105 mmol/L (98-107); Est GFR (African American) 20.4 ml/min; Est GFR (Non-African American) 17.6 ml/min; Glucose 159 mg/dl (70-99(Fasting)); Potassium 4.8 mmol/L (3.5-5.1); Sodium 136 mmol/L (136-145); Total Protein 6.6 gm/dl (6.0-8.3)
[2022-09-16 22:10] LABS: Appearance Urine Cloudy (Clear); Bacteria Urine Automated 1+ (Negative); Bilirubin Urine Negative (Negative); Blood Urine Negative (Negative); Color Urine Yellow; Epithelial Cell Urine Auto >30 /lpf (0-5); Glucose Urine UA Negative (Negative); Ketones Urine Trace (Negative); Leukocyte Esterase Urine 3+ (Negative); Nitrite Urine Negative (Negative); Protein Urine Trace (Negative); RBC Urine Automated 0-4 /hpf (0-4); Specific Gravity Urine 1.017 (1.000-1.030); Urobilinogen Urine Negative (Negative); WBC Urine Automated >30 /hpf (0-5)
[2022-09-17] MEDS ORDERED: SODIUM CHLORIDE 0.9% 1000ML 1,000 ML IV ONE ×2 (00:23→02:29)
--- NOTE | 2022-09-17 00:29 | Emergency Department Note ---
History of Present Illness General Chief complaint: Illness Stated complaint: WEAKNESS, DISORIENTED,UTI, HAD TIA SYMPTOMS Time Seen by Provider: 09/17/22 00:08 Source: patient Mode of arrival: ambulatory Limitations: no limitations History of Present Illness Provider complaint: Weakness, fatigue Maximum Pain Intensity: 4 This is a 67-year-old female presents emergency department due to increased weakness and fatigue. Patient states she was recently started on Bactrim for urinary tract infection. She states she follows with urology, Dr. Mayer done at [facility] due to a history of recurrent UTIs. She is also had prior cystoscopy although none recently. She states she just started the Bactrim within the week. Patient is a diabetic although states she is controlling it with her diet. States her blood sugar levels have been between 80 and 100 in the morning. She denies any recent illness including fevers, chills, URI symptoms. She denies any coming abdominal pain, dysuria, malodorous urine, back pain, change in stools, or leg swelling. She denies chest pain, palpitations, or trouble breathing. Patient states she has had a normal appetite and and feels she is staying well-hydrated. Home Medications Medication Instructions Recorded Confirmed Type cholecalciferol (vitamin D3) 25 1,000 unit PO QAM 10/26/18 09/17/22 History mcg (1,000 unit) capsule (Vitamin D3) magnesium 250 mg tablet 250 mg PO QAM 10/26/18 09/17/22 History acetaminophen 500 mg tablet 1,000 mg PO Q6H PRN Pain 12/24/18 09/17/22 History (Tylenol Extra Strength) blood-glucose meter (Accu-Chek #1 ea 12/03/19 09/17/22 Rx Ida Plus Meter) blood sugar diagnostic (Accu-Chek #200 ea 12/08/19 09/17/22 Rx Ida Plus test strips) cyclobenzaprine 10 mg tablet 10 mg PO HS 04/21/21 09/17/22 History prednisone 5 mg tablet 5 mg PO QPM 04/21/21 09/17/22 History albuterol sulfate 90 mcg/actuation 2 puff inhalation QID PRN 04/02/22 09/17/22 Rx aerosol inhaler (Ventolin HFA) shortness of breath or wheezing #8.5 grams levothyroxine 100 mcg tablet 100 mcg PO QAM #90 tabs 09/16/22 09/17/22 Rx aspirin 81 mg tablet,delayed 81 mg PO QAM 09/17/22 09/17/22 History release gabapentin 100 mg capsule 100 - 300 mg PO HS 09/17/22 09/17/22 History lisinopril 40 mg tablet 40 mg PO QAM 09/17/22 09/17/22 History metoprolol succinate 50 mg 125 mg PO UD 09/17/22 09/17/22 History tablet,extended release 24 hr omeprazole 40 mg capsule,delayed 40 mg PO DAILYBB 09/17/22 09/17/22 History release sulfamethoxazole 400 1 tab PO QPM 09/17/22 09/17/22 History mg-trimethoprim 80 mg tablet Allergies Allergy/AdvReac Type Severity Reaction Status Date / Time nitrofurantoin Allergy Severe HEADACHE Verified 04/02/22 13:36 tetracycline Allergy Severe RASH ON Verified 04/02/22 13:36 FACE Iclgntl-[id number]-TuM Reductase AdvReac Intermediate LE edema Verified 04/02/22 13:36 Inhibitor [Ujmkrqo-Rbj-Ofx Reductase Inhibitor] oxycodone AdvReac Drowsy Verified 04/02/22 13:36 Past Med/Surg History Medical History Bilateral leg edema Colitis Diabetes mellitus type II, controlled History of campylobacteriosis 04/2019 ([facility]) s/p antibiotics treatment History of MRSA infection lumbar surgical incision s/p vanco/ceftriaxone/bactrim per 04/2019 [facility] discharge summary Hyperlipidemia Hypertension Hypothyroidism Immunosuppression due to drug therapy Lower GI bleed Lumbar radiculopathy Nonhealing surgical wound Rheumatoid arthritis Spinal stenosis Tachycardia Surgical History History of back surgery History of x2 History of hysterectomy total History of total left knee replacement Hx of tonsillectomy Status post laminectomy with spinal fusion L2-L5 laminectomy/fusion: 12/24/18: Grade view 1, MAC#3, ETT 7.0 Family History Father Diabetes Lung cancer Cancer Hypertension Mother Diabetes Brain tumor Cancer Hypertension Malignant neoplasm of brain Aunt Breast cancer Denies family history of Ovarian cancer Prostate cancer Myocardial infarction Colorectal cancer Social History Smoking Status: Never smoker Second Hand Exposure: No; Hx Alcohol Use: No Hx Substance Use: No Preferred Language: Azeri Communication Ability: Effective Visual Impairment: Limited Hearing Ability: Normal Chocolate Refining Roller Required: No Beliefs That Will Affect Care: None marital status: Current Living Situation: Spouse Current Living Situation Comment: 1 level home current occupational status: retired How many Children do You have: 2 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 Feels Safe at Home: Yes Childhood Exposure to Second-Hand Smoke: Yes caffeine: Yes Dental Care, Regularly: Yes Physical Activity Frequency: 5-6 Times per Week Physical Activity Frequency Comment: gym Seatbelt Use: always Sunscreen Use: Yes Do you think of yourself as: straight/heterosexual Assistive Devices: Cane Review of Systems A total of 10 systems reviewed and were otherwise negative All systems reviewed & are unremarkable except as noted in HPI & below Physical Exam Vital Signs Vital Signs - 24 hr 09/17/22 02:49 Pulse Rate [Finger] 84 Respiratory Rate 16 Blood Pressure [Right Arm] 103/63 Blood Pressure Mean [Right Arm] 76 Pulse Oximetry 95 Oxygen Delivery Method Room Air GENERAL: alert, well appearing, well nourished, no distress, non-toxic EYE EXAM: normal conjunctiva, PERRL and EOM's grossly intact OROPHARYNX: no exudate, no erythema, lips, buccal mucosa, and tongue normal and mucous membranes are moist NECK: supple, no nuchal rigidity, no adenopathy, non-tender LUNGS: Clear to auscultation. Normal chest wall mechanics, no w/r/r HEART: no murmurs, S1 normal and S2 normal ABDOMEN: abdomen soft, non-tender, normo-active bowel sounds, no masses, no rebound or guarding. BACK: Back is symmetrical on inspection and there is no deformity, no midline tenderness, no CVA tenderness. SKIN: no rashes and no bruising UPPER EXTREMITIES: upper extremities are grossly normal. FROM, nml pulses b/l. LOWER EXTREMITIES: No pitting edema. FROM, nml pulses b/l. NEURO EXAM: Normal sensorium, cranial nerves II-XII grossly intact, normal speech, no gross weakness of arms, no gross weakness of legs. Gross sensation intact. Course Administered Medications Aspirin (Aspirin 81 Mg Ectab) 81 mg PO QAM [facility] Stop: 10/17/22 08:59 Last Admin: 09/17/22 09:05 Dose: 81 mg Documented By: LUIS ALBERTO Cyclobenzaprine HCl (Cyclobenzaprine Hcl 10 Mg Tab) 10 mg PO [facility] Stop: 10/17/22 20:59 Last Admin: 09/17/22 20:37 Dose: 10 mg Documented By: PAULINE Gabapentin (Gabapentin 100 Mg Cap) 100 mg PO [facility] Stop: 10/17/22 20:59 Last Admin: 09/17/22 20:37 Dose: 100 mg Documented By: PAULINE Heparin Sodium (Porcine) (Heparin Sod 5,000 Unit/0.5 Ml Vial) 5,000 units SQ Q12H [facility] Stop: 10/17/22 06:59 Last Admin: 09/17/22 18:03 Dose: 5,000 units Documented By: LUIS ALBERTO Admin: 09/17/22 09:05 Dose: 5,000 units Documented By: LUIS ALBERTO Cefepime HCl 1,000 mg/ Syringe 10 mls @ 5 mls/min IV Q24H [facility]; Protocol Stop: 09/28/22 00:59 Last Admin: 09/18/22 01:16 Dose: 5 mls/min Documented By: PAULINE Hydrocortisone Sodium (Succinate 50 mg/ Syringe) 1 mls @ 4 mls/min IV Q8H [facility] Stop: 10/17/22 09:59 Last Admin: 09/18/22 01:16 Dose: 4 mls/min Documented By: Admin: 09/17/22 18:04 Dose: 4 mls/min Documented By: LUIS ALBERTO Admin: 09/17/22 11:28 Dose: 4 mls/min Documented By: LUIS ALBERTO Lactated Ringer's (Lr) 1,000 mls @ 125 mls/hr IV .Q8H [facility] Stop: 10/17/22 09:44 Last Admin: 09/17/22 18:41 Dose: 125 mls/hr Documented By: LUIS ALBERTO Infusion: 09/17/22 18:41 Dose: 125 mls/hr Documented By: LUIS ALBERTO Admin: 09/17/22 10:53 Dose: 125 mls/hr Documented By: LUIS ALBERTO Insulin Aspart (Insulin Aspart Per Unit) 0 units SC ACHS [facility] Stop: 10/17/22 07:29 Last Admin: 09/17/22 20:49 Dose: 5 units Documented By: PAULINE Co-signed By: ERIC Admin: 09/17/22 18:03 Dose: 6 units Documented By: LUIS ALBERTO Co-signed By: CLAUDIA Admin: 09/17/22 13:12 Dose: 3 units Documented By: ABDOULAYEW Co-signed By: TAMIKA Admin: 09/17/22 09:06 Dose: 2 units Documented By: CAW Co-signed By: WES Levothyroxine Sodium (Levothyroxine Sodium 100 Mcg Tablet) 100 mcg PO DAILYBB [facility] Stop: 10/17/22 06:29 Last Admin: 09/17/22 07:23 Dose: 100 mcg Documented By: GISSELLE Metoprolol Succinate ([place]oprolol Succ 50mg Ext Rel Tab) [facility] [place]: 10/17/22 08:59 Last Admin: 09/17/22 09:06 Dose: Not Given Documented By: LUIS ALBERTO Metoprolol Succinate (Metoprolol Succ 50mg Ext Rel Tab) 50 mg PO QPM [facility] Stop: 10/17/22 20:59 Last Admin: 09/17/22 20:36 Dose: 50 mg Documented By: PAULINE Pantoprazole Sodium (Pantoprazole 40 Mg Tab) 40 mg PO DAILYBB [facility] Stop: 10/17/22 06:29 Last Admin: 09/17/22 09:05 Dose: 40 mg Documented By: LUIS ALBERTO Prednisone (Prednisone 5 Mg Tab) [facility] [place] [place]: 09/20/22 08:59 Last Admin: 09/17/22 09:05 Dose: 15 mg Documented By: LUIS ALBERTO Discontinued Medications Sodium Chloride (Nss 1000ml) 1,000 mls @ 999 mls/hr IV .Q1H1M ONE Stop: 09/17/22 01:23 Last Infusion: 09/17/22 02:35 Dose: 0 mls/hr Documented By: Admin: 09/17/22 01:02 Dose: 999 mls/hr Documented By: SARAH Cefepime HCl (Maxipime) 2,000 mg in 20 mls @ 5 mls/min IV NOW STA; Protocol Stop: 09/17/22 00:33 Last Admin: 09/17/22 01:02 Dose: 5 mls/min Documented By: SARAH Sodium Chloride (Nss 1000ml) 1,000 mls @ 999 mls/hr IV .Q1H1M ONE Stop: 09/17/22 03:29 Last Infusion: 09/17/22 03:53 Dose: 0 mls/hr Documented By: Admin: 09/17/22 02:40 Dose: 999 mls/hr Documented By: SARAH Sodium Chloride (Nss 1000ml) 1,000 mls @ 125 mls/hr IV .Q8H [facility] Stop: 09/17/22 20:58 Last Infusion: 09/17/22 10:52 Dose: 0 mls/hr Documented By: LUIS ALBERTO Admin: 09/17/22 06:43 Dose: 125 mls/hr Documented By: GISSELLE Miscellaneous (Patient's Height &/Or Weight Needed) 1 each N/A Q2H [facility] Stop: 10/17/22 03:59 Last Admin: 09/17/22 05:03 Dose: 1 each Documented By: GISSELLE Medical Decision Making Differential Diagnosis Differential Diagnosis includes but is not limited to dehydration, stroke, anemia, hypoglycemia, hyponatremia, hypernatremia, urinary tract infection, pneumonia, bronchitis, sepsis, gastroenteritis, additional abdominal pathology, metabolic abnormalities and infections. Medical Records Attestation: I reviewed the patient's medical records. Home Medications Current Medication List: was personally reviewed by me Laboratory Data Attestation: I reviewed the patient's lab results. Result diagrams: 09/17/22 05:58 09/17/22 05:58 Lab Results 09/16/22 09/16/22 09/16/22 Range/Units 21:00 21:00 21:00 WBC 19.82 H (4.8-10.8) K/ul RBC 3.37 L (3.93-5.22) M/uL Hgb 9.1 L (12.0-16.0) g/dl Hct 30.6 L (34.1-44.9) % MCV 90.8 (80.0-100.0) fL MCH 27.0 (25.0-34.0) pg MCHC 29.7 L (32.0-36.0) g/dL RDW Std Deviation 52.0 H (36.4-46.3) fL RDW Coeff of [place]aya 15.9 H (11.5-14.5) % Plt Count 298 (130-400) K/uL MPV 10.4 (9.4-12.3) fL Immature Gran % (Auto) 1.5 % Neut % (Auto) 88.0 % Lymph % (Auto) 5.0 % [place] % (Auto) 4.5 % Eos % (Auto) 0.7 % Baso % (Auto) 0.3 % Neut # (Auto) 17.45 H (1.4-6.5) K/uL Lymph # (Auto) 1.00 L (1.2-3.4) K/uL [place] # (Auto) 0.89 H (0.24-0.82) K/uL Eos # (Auto) 0.13 (0-0.50) K/uL Baso # (Auto) 0.06 (0-0.2) K/uL Immature Gran # (Auto) 0.29 H (0.00-0.02) K/uL Sodium 136 (136-145) mmol/L Potassium 4.8 (3.5-5.1) mmol/L Chloride 105 (98-107) mmol/L Carbon Dioxide 23 (21-32) mmol/L Anion Gap 8 (3-11) BUN 44 H (6-23) mg/dl Creatinine 2.69 H (0.6-1.2) mg/dl Est Cr Clr Drug Dosing Not Reportable Est GFR ( Amer) 20.4 ml/min Est GFR (Non-Af Amer) 17.6 ml/min BUN/Creatinine Ratio 16.4 (10-20) Glucose 159 H (70-99(Fasting)) mg/dl Lactate (0.4-2.0) mmol/L Calcium 8.8 (8.5-10.1) mg/dl Phosphorus (2.5-4.9) mg/dl Magnesium (1.7-2.4) mg/dl Total Bilirubin 0.2 (0.2-1.0) mg/dl AST 15 (13-39) U/L ALT 19 (7-52) U/L Alkaline Phosphatase 71 (34-104) U/L Total Protein 6.6 (6.0-8.3) gm/dl Albumin 3.6 (3.4-5.0) gm/dl Globulin 3.0 (2.5-4.0) gm/dl Albumin/Globulin Ratio 1.2 (0.9-2) Procalcitonin (0-0.5) ng/ml Urine Color Yellow Urine Appearance Cloudy A (Clear) Urine pH 5.0 (4.5-7.5) Ur Specific [place] 1.017 (1.000-1.030) Urine Protein Trace H (Negative) Urine Glucose (UA) Negative (Negative) Urine Ketones Trace H (Negative) Urine Blood Negative (Negative) Urine Nitrite Negative (Negative) Urine Bilirubin Negative (Negative) Urine Urobilinogen Negative (Negative) Ur Leukocyte Esterase 3+ H (Negative) Urine WBC (Auto) >30 H (0-5) /hpf Urine RBC (Auto) 0-4 (0-4) /hpf U Hyaline Cast (Auto) 10-30 H (0-5) /lpf U Epithel Cells (Auto) >30 H (0-5) /lpf Urine Bacteria (Auto) 1+ H (Negative) SARS-CoV-2 (PCR) (Negative) Influenza Type A (PCR) (Neg) Influenza Type B (PCR) (Neg) RSV (RT-PCR) (Neg) 09/16/22 09/16/22 09/17/22 Range/Units 21:00 21:00 01:14 WBC (4.8-10.8) K/ul RBC (3.93-5.22) M/uL Hgb (12.0-16.0) g/dl Hct (34.1-44.9) % MCV (80.0-100.0) fL MCH (25.0-34.0) pg MCHC (32.0-36.0) g/dL RDW Std Deviation (36.4-46.3) fL RDW Coeff of [place] (11.5-14.5) % Plt Count (130-400) K/uL MPV (9.4-12.3) fL Immature Gran % (Auto) % Neut % (Auto) % Lymph % (Auto) % [place] % (Auto) % Eos % (Auto) % Baso % (Auto) % Neut # (Auto) (1.4-6.5) K/uL Lymph # (Auto) (1.2-3.4) K/uL [place] # (Auto) (0.24-0.82) K/uL Eos # (Auto) (0-0.50) K/uL Baso # (Auto) (0-0.2) K/uL Immature Gran # (Auto) (0.00-0.02) K/uL Sodium (136-145) mmol/L Potassium (3.5-5.1) mmol/L Chloride (98-107) mmol/L Carbon Dioxide (21-32) mmol/L Anion Gap (3-11) BUN (6-23) mg/dl Creatinine (0.6-1.2) mg/dl Est Cr Clr Drug Dosing Est GFR ( Amer) ml/min Est GFR (Non-Af Amer) ml/min BUN/Creatinine Ratio (10-20) Glucose (70-99(Fasting)) mg/dl Lactate (0.4-2.0) mmol/L Calcium (8.5-10.1) mg/dl Phosphorus 4.2 (2.5-4.9) mg/dl Magnesium 2.3 (1.7-2.4) mg/dl Total Bilirubin (0.2-1.0) mg/dl AST (13-39) U/L ALT (7-52) U/L Alkaline Phosphatase (34-104) U/L Total Protein (6.0-8.3) gm/dl Albumin (3.4-5.0) gm/dl Globulin (2.5-4.0) gm/dl Albumin/Globulin Ratio (0.9-2) Procalcitonin 0.30 (0-0.5) ng/ml Urine Color Urine Appearance (Clear) Urine pH (4.5-7.5) Ur Specific Baker (1.000-1.030) Urine Protein (Negative) Urine Glucose (UA) (Negative) Urine Ketones (Negative) Urine Blood (Negative) Urine Nitrite (Negative) Urine Bilirubin (Negative) Urine Urobilinogen (Negative) Ur Leukocyte Esterase (Negative) Urine WBC (Auto) (0-5) /hpf Urine RBC (Auto) (0-4) /hpf U Hyaline Cast (Auto) (0-5) /lpf U Epithel Cells (Auto) (0-5) /lpf Urine Bacteria (Auto) (Negative) SARS-CoV-2 (PCR) NEGATIVE (Negative) Influenza Type A (PCR) Negative (Neg) Influenza Type B (PCR) Negative (Neg) RSV (RT-PCR) Negative (Neg) 09/17/22 Range/Units 02:01 WBC (4.8-10.8) K/ul RBC (3.93-5.22) M/uL Hgb (12.0-16.0) g/dl Hct (34.1-44.9) % MCV (80.0-100.0) fL MCH (25.0-34.0) pg MCHC (32.0-36.0) g/dL RDW Std Deviation (36.4-46.3) fL RDW Coeff of [place] (11.5-14.5) % Plt Count (130-400) K/uL MPV (9.4-12.3) fL Immature Gran % (Auto) % Neut % (Auto) % Lymph % (Auto) % [place] % (Auto) % Eos % (Auto) % Baso % (Auto) % Neut # (Auto) (1.4-6.5) K/uL Lymph # (Auto) (1.2-3.4) K/uL [place] # (Auto) (0.24-0.82) K/uL Eos # (Auto) (0-0.50) K/uL Baso # (Auto) (0-0.2) K/uL Immature Gran # (Auto) (0.00-0.02) K/uL Sodium (136-145) mmol/L Potassium (3.5-5.1) mmol/L Chloride (98-107) mmol/L Carbon Dioxide (21-32) mmol/L Anion Gap (3-11) BUN (6-23) mg/dl Creatinine (0.6-1.2) mg/dl Est Cr Clr Drug Dosing Est GFR ( Amer) ml/min Est GFR (Non-Af Amer) ml/min BUN/Creatinine Ratio (10-20) Glucose (70-99(Fasting)) mg/dl Lactate 1.2 (0.4-2.0) mmol/L Calcium (8.5-10.1) mg/dl Phosphorus (2.5-4.9) mg/dl Magnesium (1.7-2.4) mg/dl Total Bilirubin (0.2-1.0) mg/dl AST (13-39) U/L ALT (7-52) U/L Alkaline Phosphatase (34-104) U/L Total Protein (6.0-8.3) gm/dl Albumin (3.4-5.0) gm/dl Globulin (2.5-4.0) gm/dl Albumin/Globulin Ratio (0.9-2) Procalcitonin (0-0.5) ng/ml Urine Color Urine Appearance (Clear) Urine pH (4.5-7.5) Ur Specific [place] (1.000-1.030) Urine Protein (Negative) Urine Glucose (UA) (Negative) Urine Ketones (Negative) Urine Blood (Negative) Urine Nitrite (Negative) Urine Bilirubin (Negative) Urine Urobilinogen (Negative) Ur Leukocyte Esterase (Negative) Urine WBC (Auto) (0-5) /hpf Urine RBC (Auto) (0-4) /hpf U Hyaline Cast (Auto) (0-5) /lpf U Epithel Cells (Auto) (0-5) /lpf Urine Bacteria (Auto) (Negative) SARS-CoV-2 (PCR) (Negative) Influenza Type A (PCR) (Neg) Influenza Type B (PCR) (Neg) RSV (RT-PCR) (Neg) Imaging Data Radiologist's Impression: CT abdomen pelvis without contrast: There is a punctate nonobstructing right lower pole intrarenal calculus. No hydronephrosis is seen. There is bilateral renal atrophy. There are postsurgical changes of prior lumbar spine fixation. There is cholelithiasis within an otherwise normal gallbladder. 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 Radiologist: Anurag Agee MD ECG Data Attestation: I personally reviewed and interpreted this ECG as follows: Indication: + weakness Rate (beats per minute): 94 Rhythm: + normal sinus ECG Intervals/blocks: + Normal QRS and + Normal QT ECG [place]: + Normal ECG ST segments: + Normal ST segments MDM Narrative An order was placed for continuous cardiac monitoring. The monitor shows a rate of _98_ with _normal sinus__ rhythm. This is a 67-year-old female who presents due to concern for weakness and fatigue. Patient recently started on Bactrim for a urinary tract infection afte r failing therapy with Keflex. With assistance of case management, we were able to obtain urology records which did show urine culture that grew E. coli. This did appear to be pansensitive. Patient follows with urology down at [facility]. Patient states she has been taking the Bactrim and felt she was staying well- hydrated. She was afebrile and hemodynamically stable. Basic labs have been drawn and sent prior to my evaluation by nursing staff she presented on day of high volume and acuity. Additional labs and cultures were added after my evaluation and patient was sent for CT imaging to rule out other obstructive process given the new AISHWARYA. Patient with a leukocytosis despite being on Bactrim. She was given given additional IV antibiotics. She was given 30 mL/KG of IV fluids per sepsis guidelines. Patient's lactic acid and procalcitonin reassuring. Patient remained hemodynamically stable in the emergency room. She was updated on all results. Case discussed with hospitalist for additional evaluation and management. Impression & Plan Generalized weakness, Sepsis, AISHWARYA (acute kidney injury) Discharge Plan Visit Data Chief Complaint: Illness Stated Complaint: WEAKNESS, DISORIENTED,UTI, HAD TIA SYMPTOMS ED Provider: Rosetta Kang Discharge Problem: Generalized weakness, Sepsis, AISHWARYA (acute kidney injury) Patient Disposition: Admitted As Inpatient Discharge Instructions Interventions: ED Discharge Assessment Last Done: 09/17/22 05:01
[2022-09-17] MEDS ORDERED: CEFEPIME 2,000 MG/20 ML VIAL IV STA (00:30)
[2022-09-17 02:10] LABS: Magnesium 2.3 mg/dl (1.7-2.4); Phosphorus 4.2 mg/dl (2.5-4.9)
[2022-09-17 02:28] LABS: Influenza A virus by PCR Negative (Neg); Influenza B virus by PCR Negative (Neg); RSV by PCR Negative (Neg); SARS CoV2 RNA(COVID-19) Ceph NEGATIVE (Negative)
[2022-09-17] MEDS ORDERED: ACETAMINOPHEN 325 MG TAB PO PRN (03:44)
[2022-09-17] MEDS ORDERED: ENOXAPARIN INJ 40 MG/0.4 ML SYR SQ SCH (03:45)
--- NOTE | 2022-09-17 03:48 | History & Physical Report ---
Date of Service September 17, 2022 Assessment & Plan (1) Recurrent UTI: Plan: This 67-year-old female with a history of recurrent UTIs, CKD stage III, prior TIA, chronic anemia, type 2 diabetes, rheumatoid arthritis, hypothyroidism who presented to [facility] for evaluation of illness in the setting of two recent UTIs treated in the outpatient setting, subsequently found to have findings consistent with a refractory/recurrent UTI again on arrival. Sepsis - suspected secondary to Recurrent UTI Follows with Dr. Lidia Mayer with [facility] Urogynecology Patient presenting with symptoms of illness and recurrent urinary symptoms in the context of 2 recently treated UTIs in outpatient setting over the last 2 months Work-up as follows UCx from [facility] (Jul, Aug 2022) with cultures demonstrating Bactrim- resistant E. coli and Klebsiella /// [facility] UCX: Pansensitive E. coli UA on arrival: 3+ leuk esterase, over 30 WBCs, 1+ bacteria in the setting of >30 WBCs, but also epis CT-AP STAT Rad: " Punctate nonobstructing right lower pole infra renal calculus. No hydronephrosis seen. Bilateral renal atrophy." Leukocytosis to 19 with left shift on arrival, Pro-Sivakumar negative BCX, UCX pending Exam not revealing any obvious skin lesions, painful joints, respiratory findings, or h/o diarrheal illness Patient with extensive UTI history who meets sepsis criteria based on presenting HR and WBCs, suspected to be secondary to recurrent/refractory UTI based on UA, history, and suprapubic tenderness Continue cefepime for now (patient does not have history of pseudomonal UTI, but does have frequent healthcare contact and type 2 diabetesnarrow when appropriate) Given recurrent UTIs that have now required hospitalization, will consult urology - ?cystoscopy while here, daily PPX Diabetes control, as below (2) Weakness: Plan: Weakness/Fatigue Difficult to obtain history from patient at the time of H&P given the time of day and her somnolence ; she was reportedly more alert during her time in the E R, before she went to sleep Based on interprovider communication, patient has been reporting intermittent fatigue and disorientation over the last 2 weeks -- no appreciable neuro deficits reported Primarily suspect this is secondary to recurrent UTI and uremia based on the labs, history, and presenting vital signs; also possible that absence of her prednisone may be contributing as well (ran out 5 days prior to admission) Treat UTI as below Aggressive hydration Re-evaluate in AM performed med rec as best as possible at time of admission, but given her somnolence, will require confirmation again in the AM (3) Rheumatoid arthritis: Plan: Rheumatoid arthritis Follows with Dr. Padron Patient controlled with prednisone 5 mg nightly at home Patient reporting to me that she has not taken prednisone for the last 5 days because she ran out; given her daily dose amount, her vital signs, and admission labs, low suspicion for developing adrenal insufficiency In the setting of acute illness/sepsis and missed doses, will triple dose to 15 mg for 3 days and thereafter resume home dose (4) AISHWARYA (acute kidney injury): Plan: Acute Kidney Injury atop CKD3 (CKD3b, follows with [facility] Neph[facility]; baseline creatinine appears to be around 1.41.6) Chemistries on admission reveal BUN 44/creatinine 2.69 Likely mixed etiology between prerenal/dehydration in the setting of acute illness, as well as possible components from Bactrim and lisinopril Maintenance IV fluids to be provided [facility] (5) Type 2 diabetes mellitus: Plan: Type 2 Diabetes Mellitus Last A1c in 09/2021 at 7.5% -- not currently on medications Check A1c in the morning Initiate SSI with carb correctionadjust as needed, please note steroid adjustments as below in context of RA Counselling may be needed with regards to recurrent UTIs She is not on a statin at present and qualifies based on age and +DM. Check lipids. Also -- not a candidate for SGLT2i given recurrent UTIs, but GLP1 may be considered with CKD history, h/o TIA/known ASCVD risk factors (6) Hypothyroidism: Plan: Hypothyroidism Continue levothyroxine (7) Chronic anemia: Plan: Normocytic Anemia Chronic normocytic anemia with baseline hemoglobin between 10 and 11 reported since 2017, at ~9 on arrival Review of PCP notes suggest that this anemia is thought to be secondary to anemia of chronic disease We will check reticulocytes, iron studies, B12, folate in a.m. -- replete appropriately Unclear when the last colorectal cancer screening was performed -- will require further investigation Also likely contributory from her CKD 3B, may benefit from Epogen in outpatient settingwill require nephrology follow (8) Hypertension: Plan: Hypertension Continue metoprolol Hold lisinopril in setting of AISHWARYA (9) GERD (gastroesophageal reflux disease): Plan: GERD Continue omeprazole (10) (HFpEF) heart failure with preserved ejection fraction: Plan: History of HFpEF Patient with reported exacerbation of acute HFpEF during hospitalization in 2020, sepsis secondary to COVID-19 TTE from 04/2021 demonstrating moderate concentric LVH, mild dilation of the LA, normal left ventricular function Continue metoprolol, not currently on any diuresis Monitor volume status with ongoing fluid repletion Plan Code: Full code Diet: Carb consistent Prophylaxis: Lovenox Dispo: MedSurg History of Present Illness Primary Care Provider: Corby Arzola MD This 67-year-old female with a history of recurrent UTIs, CKD stage III, prior TIA, chronic anemia, type 2 diabetes, rheumatoid arthritis, hypothyroidism who presented to [facility] for evaluation of weakness and fatigue. While patient was able to provide some history, she was intermittently falling back asleep throughout our conversation. Most of the history is obtained through in provider communication. Over the past 2 weeks, patient reports that she has progressively become more fatigued and disoriented. She reports feeling tired. She endorses some mild suprapubic pain. She denies any urinary frequency urgency or dysuria. Denies any dysuria. Denies any back pa in. She does tell me that she has had swelling in her legs for the last several months, but is unable to provide much more detail than this. She denies any pain in her legs. She does tell me that she is chronically on prednisone 5 mg daily, and has been out of this for the last 5 days. Of note, patient follows with [facility] urogynecology and has been seen twice over the last 2 months for recurrent UTI symptoms. Initially, she was seen on 08/07 for UTI related symptoms, for which she was given Keflex for 7 days. Unfortunately, her symptoms recurred and on 08/27, she was prescribed Bactrim twice daily for 10 days. Review of her urine cultures demonstrates a culture from 1109 demonstrating pansensitive E. coli, however, cultures from July 2020 to demonstrate E. coli and Klebsiella resistant to Bactrim. Medications reviewed and include Tylenol, albuterol, aspirin, vitamin D, get cyclobenzaprine, gabapentin, levothyroxine, lisinopril, magnesium, metoprolol, omeprazole, prednisone 5 mg nightly. In the ED, patient was found to be with blood pressure 98/59 with heart rate 95. She was saturating well on room temperature. Afebrile upon arrival. Labs demonstrated white count 19.8 with left shift and normocytic anemia at 9.1 (baseline usually around 10-11). Chemistries reveal BUN 44/creatinine 2.69 (baseline creatinine appears to be around 1.41.6), lactate 1.2, Pro-Sivakumar 0.3. Urinalysis demonstrates a cloudy appearing urine with trace protein, 3+ leuk esterase, over 30 WBCs, 1+ bacteria in the setting of >30 WBCs. COVID, flu, and RSV negative. CT-AP STAT Rad: " Punctate nonobstructing right lower pole infra renal calculus. No hydronephrosis seen. Bilateral renal atrophy."Blood cultures and urine cultures pending. She was given cefepime and IVF. Allergies Allergy/AdvReac Type Severity Reaction Status Date / Time nitrofurantoin Allergy Severe HEADACHE Verified 04/02/22 13:36 tetracycline Allergy Severe RASH ON Verified 04/02/22 13:36 FACE Oyeietb-OIU-FlU Reductase AdvReac Intermediate LE edema Verified 04/02/22 13:36 Inhibitor [Cwvjfsu-Slq-Xre Reductase Inhibitor] oxycodone AdvReac Drowsy Verified 04/02/22 13:36 Home Medications Medication Instructions Recorded Confirmed Type cholecalciferol (vitamin D3) 25 1,000 unit PO QAM 10/26/18 09/17/22 History mcg (1,000 unit) capsule (Vitamin D3) magnesium 250 mg tablet 250 mg PO QAM 10/26/18 09/17/22 History acetaminophen 500 mg tablet 1,000 mg PO Q6H PRN Pain 12/24/18 09/17/22 History (Tylenol Extra Strength) blood-glucose meter (Accu-Chek #1 ea 12/03/19 09/17/22 Rx Ida Plus Meter) blood sugar diagnostic (Accu-Chek #200 ea 12/08/19 09/17/22 Rx Ida Plus test strips) cyclobenzaprine 10 mg tablet 10 mg PO HS 04/21/21 09/17/22 History prednisone 5 mg tablet 5 mg PO QPM 04/21/21 09/17/22 History albuterol sulfate 90 mcg/actuation 2 puff inhalation QID PRN 04/02/22 09/17/22 Rx aerosol inhaler (Ventolin HFA) shortness of breath or wheezing #8.5 grams levothyroxine 100 mcg tablet 100 mcg PO QAM #90 tabs 09/16/22 09/17/22 Rx aspirin 81 mg tablet,delayed 81 mg PO QAM 09/17/22 09/17/22 History release gabapentin 100 mg capsule 100 - 300 mg PO HS 09/17/22 09/17/22 History lisinopril 40 mg tablet 40 mg PO QAM 09/17/22 09/17/22 History metoprolol succinate 50 mg 125 mg PO UD 09/17/22 09/17/22 History tablet,extended release 24 hr omeprazole 40 mg capsule,delayed 40 mg PO DAILYBB 09/17/22 09/17/22 History release sulfamethoxazole 400 1 tab PO QPM 09/17/22 09/17/22 History mg-trimethoprim 80 mg tablet Past Med/Surg History Medical History Bilateral leg edema Colitis Diabetes mellitus type II, controlled History of campylobacteriosis 04/2019 ([facility]) s/p antibiotics treatment History of MRSA infection lumbar surgical incision s/p vanco/ceftriaxone/bactrim per 04/2019 [facility] discharge summary Hyperlipidemia Hypertension Hypothyroidism Immunosuppression due to drug therapy Lower GI bleed Lumbar radiculopathy Nonhealing surgical wound Rheumatoid arthritis Spinal stenosis Tachycardia Surgical History History of back surgery History of x2 History of hysterectomy total History of total left knee replacement Hx of tonsillectomy Status post laminectomy with spinal fusion L2-L5 laminectomy/fusion: 12/24/18: Grade view 1, MAC#3, ETT 7.0 Family History Father Diabetes Lung cancer Cancer Hypertension Mother Diabetes Brain tumor Cancer Hypertension Malignant neoplasm of brain Aunt Breast cancer Denies family history of Ovarian cancer Prostate cancer Myocardial infarction Colorectal cancer Social History Smoking Status: Never smoker Second Hand Exposure: No; Hx Alcohol Use: No Hx Substance Use: No Preferred Language: Mongolian Communication Ability: Effective Visual Impairment: Limited Hearing Ability: Normal Residential Energy Auditor Required: No Beliefs That Will Affect Care: None marital status: Current Living Situation: Spouse Current Living Situation Comment: 1 level home current occupational status: retired How many Children do You have: 2 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 Feels Safe at Home: Yes Childhood Exposure to Second-Hand Smoke: Yes caffeine: Yes Dental Care, Regularly: Yes Physical Activity Frequency: 5-6 Times per Week Physical Activity Frequency Comment: gym Seatbelt Use: always Sunscreen Use: Yes Do you think of yourself as: straight/heterosexual Assistive Devices: Cane Review of Systems Review of Systems: as per HPI Physical Exam Physical Exam: General: 67-year old female who is alert, oriented, and appears in no acute distress. HEENT: NCAT. - Eyes - Sclera are white, anicteric, and without injection. - Mouth - mucus membranes are dry appearing - Neck - supple, no appreciable JVD Cardiac: Normal rate and regular rhythm; S1 and S2 present with no murmurs, rubs, or gallops. Pulmonary: Good respiratory effort with symmetric expansion of the chest. No use of accessory muscles. Lungs were clear to auscultation bilaterally with no crackles or wheezes. Abdominal: Normoactive bowel sounds. Abdomen was soft, mildly distended, and mildly TTP in the suprapubic region Extremities: Upper and lower extremities are warm and well perfused. 1+ peripheral edema in the lower extremities bilaterally. + Bunion appreciated on the left foot. No rashes or ulcers. Neuro: CNII-XII grossly intact. UE, LE strength 5/5 bilaterally. Sensation to light-touch grossly intact. Psych: Well-developed, well-nourished, appropriately dressed for occasion. Behavior is cooperative and appropriate. Affect is WNL. Insight is appropriate. Results & Data Results & Data ([facility]) Vital Signs (Past 12 Hours) Vital Signs Temp Pulse Pulse Resp BP BP Pulse Ox 09/17/22 02:49 84 16 103/63 95 09/17/22 00:13 92 H 16 94/63 L 94 09/16/22 19:47 37.0 C 95 H 20 98/59 L 97 O2 Del Method 09/17/22 02:49 Room Air 09/17/22 00:13 Room Air 09/16/22 19:47 Room Air Supervising Physician Co-Signing Physician Notes Attending addendum: I have physically seen this patient, have supervised the medical residents activities, and agree with the H&P unless as otherwise noted. Assessment and Plan: Sepsis due to recurrent UTI- Recent cultures from [facility]: Bactrim resistant E. coli and Klebsiella Recent culture from [facility]: Pansensitive E. coli Follow urine culture and sensitivities Follow blood cultures and sensitivities Cefepime 2 g IV every 12 hours Consult urology Generalized weakness/fatigue/disorientation- Likely secondary to sepsis and UTI IV fluids for rehydration Treat above UTI with antibiotics as noted Reassess in a.m. Acute kidney injury on CKD- Creatinine 2.6 on admission, with base range 1.41-2.11 IV fluid rehydration Recheck laboratories in a.m. Remaining orders and notations as noted Resident Activity Tracking Resident Involvement: Resident Care Provided Care Provided: Adult Hospital Medicine (1) Rheumatoid arthritis Rheumatoid arthritis location: multiple sites Rheumatoid factor presence: unspecified presence Qualified Code(s): M06.9 - Rheumatoid arthritis, unspecified (2) Hypothyroidism Hypothyroidism type: unspecified Qualified Code(s): E03.9 - Hypothyroidism, unspecified
[2022-09-17] MEDS ORDERED: Patient's HEIGHT &/or WEIGHT Needed SCH (04:00)
[2022-09-17] MEDS ORDERED: CARBOHYDRATES FOR HYPOGLYCEMIA PO PRN (04:59)
[2022-09-17] MEDS ORDERED: SODIUM CHLORIDE 0.9% 1000ML 1,000 ML IV SCH (04:59)
[2022-09-17] MEDS ORDERED: GLUCAGON FOR INJ 1 MG VIAL SQ PRN (04:59)
[2022-09-17] MEDS ORDERED: ACETAMINOPHEN 500 MG TAB PO PRN (04:59)
[2022-09-17] MEDS ORDERED: GLUCOSE 40% GEL 15 GM TUBE PO PRN (04:59)
[2022-09-17] MEDS ORDERED: ALBUTEROL HFA 8 GM INHALER INH PRN (04:59)
[2022-09-17] MEDS ORDERED: GLUCOSE 10 TAB/TUBE PO PRN (04:59)
[2022-09-17] MEDS ORDERED: DEXTROSE 50% 50 ML SYRINGE IV PRN (04:59)
[2022-09-17 06:34] LABS: Hematocrit (blood only) 27.6 % (34.1-44.9); Hemoglobin 7.9 g/dl (12.0-16.0); Mean Corpuscular Hemoglobin 26.5 pg (25.0-34.0); Mean Corpuscular Hgb Conc 28.6 g/dL (32.0-36.0); Mean Corpuscular Volume 92.6 fL (80.0-100.0); Mean Platelet Volume 10.1 fL (9.4-12.3); Platelet Count 218 K/uL (130-400); RDW Coefficient of Variation 15.9 % (11.5-14.5); RDW Standard Deviation 53.7 fL (36.4-46.3); Red Blood Count 2.98 M/uL (3.93-5.22); White Blood Count 12.17 K/ul (4.8-10.8)
[2022-09-17 06:58] LABS: Basophils # (auto) 0.05 K/uL (0-0.2); Basophils % (auto) 0.4 %; Eosinophils # (auto) 0.08 K/uL (0-0.50); Eosinophils % (auto) 0.7 %; Immature Granulocytes # (auto) 0.24 K/uL (0.00-0.02); Lymphocytes # (auto) 0.93 K/uL (1.2-3.4); Lymphocytes % (auto) 7.6 %; Monocytes # (auto) 0.61 K/uL (0.24-0.82); Neutrophils # (auto) 10.26 K/uL (1.4-6.5); Neutrophils % (auto) 84.3 %; RBC Morphology Unremarkable; Reticulocyte % 2.2 % (0.5-2.0); Reticulocytes # 0.07 10^6/uL (0.02-0.10)
[2022-09-17 07:11] LABS: BUN Creatinine Ratio 17.3 (10-20); Calcium 7.8 mg/dl (8.5-10.1); Chol HDL Ratio 6.3 (0-5); Creatinine Clr Calc Pharmacy 21.4 ml/min; Est GFR (African American) 19.7 ml/min; Magnesium 2.3 mg/dl (1.7-2.4); Potassium 4.6 mmol/L (3.5-5.1)
[2022-09-17 07:15] LABS: Ferritin 61.2 ng/ml (8-388)
[2022-09-17 07:22] LABS: Vitamin B12 > 1500 pg/ml (180-914)
[2022-09-17] MEDS: LEVOTHYROXINE SODIUM 100 MCG TABLET PO SCH (07:23)
[2022-09-17 07:25] LABS: Estimated Average Glucose 171 mg/dl; Hemoglobin A1C 7.6 % (4.5-5.6)
--- NOTE | 2022-09-17 07:41 | XRay Report ---
XR chest 1V portable CLINICAL HISTORY: Shortness of breath. COMPARISON STUDY: Chest radiograph April 02, 2022. FINDINGS: Lung volumes are mildly diminished. There is no pneumothorax or pleural effusion. Mild card iomegaly is noted. Slight interstitial prominence is noted. No consolidation to suggest pneumonia. Mi nimal left basilar opacity favors atelectasis. This is similar to prior exams. IMPRESSION: No definite acute findings. Mild cardiomegaly with subtle interstitial thickening, likely chronic. ACT 112: Negative or not required by law. Electronically signed by: Gus Ojeda M.D. 09/17/2022 7:40 AM
--- NOTE | 2022-09-17 08:00 | CT Scan Report ---
CT OF THE ABDOMEN AND PELVIS WITHOUT CONTRAST CLINICAL HISTORY: Acute kidney injury. Urinary tract infection. COMPARISON STUDY: CT of the abdomen and pelvis October 04, 2021. TECHNIQUE: Axial images of the abdomen and pelvis were obtained without IV contrast. Images were revi ewed in the axial, sagittal, and coronal planes. Automated exposure control was utilized for the chuck dy. A dose lowering technique was utilized adhering to the principles of ALARA. FINDINGS: 4 mm calculus within lower pole of the right kidney is noted. There are no ureteral calculi . There is no hydronephrosis. Moderate right and mild left renal cortical thinning is noted. Evaluati on of the remainder of the abdomen and pelvis is suboptimal on this unenhanced exam. There are gallst ones within the gallbladder. There is no evidence for acute cholecystitis. Liver, spleen, adrenal gla nds and pancreas are unremarkable. There is no biliary or pancreatic ductal dilatation. There is no e vidence for a bowel obstruction. Colonic diverticulosis is present. No evidence for acute diverticuli tis. Mild sigmoid colon wall thickening may be due to circular muscular hypertrophy. No adjacent infl ammation is present. There is no lymphadenopathy. No ascites is present. L3-L5 discectomy, posterior decompression and bilateral pedicle screw fusion is noted. Anterolisthesis of L5 on S1 due to bilater al L5 pars defect is unchanged. Moderate compression fracture of the inferior endplate of T12 is new since CT of October 04, 2021. There is 4 mm of associated retropulsion. IMPRESSION: 1. 4 mm right renal calculus. No ureteral calculi or hydronephrosis. 2. Colonic diverticulosis. No evidence for acute diverticulitis. 3. Moderate compression fracture of the inferior endplate of T12 which is new since CT of September but likely subacute to chronic. Mild associated retropulsion. 4. Cholelithiasis. No evidence for acute cholecystitis. ACT 112: Negative or not required by law. Electronically signed by: Gus Ojeda M.D. 09/17/2022 7:59 AM
[2022-09-17] MEDS ORDERED: predniSONE 5 MG TAB PO SCH (09:00)
[2022-09-17] MEDS: PANTOprazole 40 MG TAB PO SCH (09:05)
[2022-09-17] MEDS: HEPARIN SOD 5,000 UNIT/0.5 ML VIAL SQ SCH ×2 (09:05→18:03)
[2022-09-17] MEDS: ASPIRIN 81 MG ECTAB PO SCH (09:05)
[2022-09-17] MEDS: INSULIN ASPART PER UNIT SC SCH ×4 (09:06→20:49)
[2022-09-17] MEDS: METOPROLOL SUCC 50MG EXT REL TAB PO SCH ×2 (09:06→20:36)
[2022-09-17] MEDS: LACTATED RINGER'S 1,000 ML IV SCH ×2 (10:53→18:41)
[2022-09-17] MEDS: HYDROCORTISONE SOD 50 MG in SYRINGE 0 ML IV SCH ×2 (11:28→18:04)
--- NOTE | 2022-09-17 12:03 | Urology Consultation ---
Date of Consultation September 17, 2022 Assessment & Plan (1) Urinary tract infection: Plan 67-year-old female with recurrent UTIs Do not recommend cystoscopy during hospitalization as this puts her at increased risk for worsening infection and possible bacteremia with sepsis Independently reviewed CT scan which shows no stones or hydronephrosis Continue broad-spectrum antibiotics and follow-up cultures. Recommend total treatment of 10-14 days. Patient is currently scheduled for cystoscopy in [place] in 09/25/2022. I recommended that she keep this appointment. Depending on what they find and their plan moving forward, if it is easier for her to follow locally with me I am happy to see her in follow-up. I advised her to call our office and let us know how she would like to proceed forth after her follow-up. Discussed the importance of her continuing probiotic, cranberry supplementation, topical estrogen and methenamine. No urologic intervention necessary. Urology to sign off. History of Present Illness Reason for Consultation: Recurrent UTIs Attending Physician: Adam Bhatia History of Present Illness 67-year-old female with recurrent UTIs. She was admitted to the hospital overnight for subjective symptoms of UTI. She has been nontachycardic and initially had some BPs in the systolic 90s. She has been afebrile. Initial leukocytosis was 19.8 and is 12.1 this morning. She does have CKD and creatinine on admission was 2.69 was 2.77 this morning. Previous value was 1.88 on 04/09/2022. Urinalysis was negative for nitrites, 3+ leukocyte esterase, greater than 30 WBCs, no RBCs and 1+ bacteria. She was started on cefepime. I independently reviewed the CT scan which did not show any stones or hydronephrosis. I last saw her in January and had recommended topical estrogen cream, methenamine, probiotic and cranberry supplementation. I also started her on trimethoprim 100 mg daily. For unclear reasons, her follow-up appoint was canceled with me and then she reports she had trouble getting back in the office and has subsequently been following with urogynecology of [facility] in [place]. She is scheduled for cystoscopy on 09/25/2022. There are notes report that she was not taking methenamine or topical estrogen. Allergies Allergy/AdvReac Type Severity Reaction Status Date / Time nitrofurantoin Allergy Severe HEADACHE Verified 04/02/22 13:36 tetracycline Allergy Severe RASH ON Verified 04/02/22 13:36 FACE Jihlsix-NWU-DlM Reductase AdvReac Intermediate LE edema Verified 04/02/22 13:36 Inhibitor [Aytizju-Qim-Mvb Reductase Inhibitor] oxycodone AdvReac Drowsy Verified 04/02/22 13:36 Home Medications Medication Instructions Recorded Confirmed Type cholecalciferol (vitamin D3) 25 1,000 unit PO QAM 10/26/18 09/17/22 History mcg (1,000 unit) capsule (Vitamin D3) magnesium 250 mg tablet 250 mg PO QAM 10/26/18 09/17/22 History acetaminophen 500 mg tablet 1,000 mg PO Q6H PRN Pain 12/24/18 09/17/22 History (Tylenol Extra Strength) blood-glucose meter (Accu-Chek #1 ea 12/03/19 09/17/22 Rx Ida Plus Meter) blood sugar diagnostic (Accu-Chek #200 ea 12/08/19 09/17/22 Rx Ida Plus test strips) cyclobenzaprine 10 mg tablet 10 mg PO HS 04/21/21 09/17/22 History prednisone 5 mg tablet 5 mg PO QPM 04/21/21 09/17/22 History albuterol sulfate 90 mcg/actuation 2 puff inhalation QID PRN 04/02/22 09/17/22 Rx aerosol inhaler (Ventolin HFA) shortness of breath or wheezing #8.5 grams levothyroxine 100 mcg tablet 100 mcg PO QAM #90 tabs 09/16/22 09/17/22 Rx aspirin 81 mg tablet,delayed 81 mg PO QAM 09/17/22 09/17/22 History release gabapentin 100 mg capsule 100 - 300 mg PO HS 09/17/22 09/17/22 History lisinopril 40 mg tablet 40 mg PO QAM 09/17/22 09/17/22 History metoprolol succinate 50 mg 125 mg PO UD 09/17/22 09/17/22 History tablet,extended release 24 hr omeprazole 40 mg capsule,delayed 40 mg PO DAILYBB 09/17/22 09/17/22 History release sulfamethoxazole 400 1 tab PO QPM 09/17/22 09/17/22 History mg-trimethoprim 80 mg tablet Patient History Medical History Bilateral leg edema Colitis Diabetes mellitus type II, controlled History of campylobacteriosis 04/2019 ([facility]) s/p antibiotics treatment History of MRSA infection lumbar surgical incision s/p vanco/ceftriaxone/bactrim per 04/2019 [facility] discharge summary Hyperlipidemia Hypertension Hypothyroidism Immunosuppression due to drug therapy Lower GI bleed Lumbar radiculopathy Nonhealing surgical wound Rheumatoid arthritis Spinal stenosis Tachycardia Surgical History History of back surgery History of x2 History of hysterectomy total History of total left knee replacement Hx of tonsillectomy Status post laminectomy with spinal fusion L2-L5 laminectomy/fusion: 12/24/18: Grade view 1, MAC#3, ETT 7.0 Family History Father Diabetes Lung cancer Cancer Hypertension Mother Diabetes Brain tumor Cancer Hypertension Malignant neoplasm of brain Aunt Breast cancer Denies family history of Ovarian cancer Prostate cancer Myocardial infarction Colorectal cancer Social History Smoking Status: Never smoker Second Hand Exposure: No; Hx Alcohol Use: No Hx Substance Use: No Preferred Language: Mongolian Communication Ability: Effective Visual Impairment: Limited Hearing Ability: Normal Incubator Machine Operator Required: No Beliefs That Will Affect Care: None marital status: Current Living Situation: Spouse Current Living Situation Comment: 1 level home current occupational status: retired How many Children do You have: 2 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 Feels Safe at Home: No Is there a partner from a previous relationship who is making you feel unsafe now?: No Any Concerns about Your Family Situation: No Would You Like to Speak to Someone About Your Situation: No Childhood Exposure to Second-Hand Smoke: Yes caffeine: Yes Dental Care, Regularly: Yes Physical Activity Frequency: 5-6 Times per Week Physical Activity Frequency Comment: gym Seatbelt Use: always Sunscreen Use: Yes Do you think of yourself as: straight/heterosexual Assistive Devices: None Review of Systems Review of Systems: 14 point review of systems negative outside of what is listed above in HPI Physical Exam Physical Exam: General: Alert and oriented, no acute distress HEENT: Normocephalic, mucous membranes moist Pulmonary: Nonlabored respirations Abdomen: Nondistended Extremities: Moves all 4 spontaneously Neuro: No gross deficits Skin: Warm, dry, no rashes noted Results & Data ([facility]) Vital Signs (Past 12 Hours) Vital Signs Temp Pulse Resp BP BP Pulse Ox O2 Del Method 09/17/22 08:05 Room Air 09/17/22 11:37 36.7 C 89 16 120/63 97 Room Air 09/17/22 08:59 36.5 C 90 16 99/67 L 94 Room Air 09/17/22 08:08 36.6 C 91 H 14 95/60 L 95 Room Air 09/17/22 06:27 86 18 103/63 95 Room Air 09/17/22 05:01 Room Air 09/17/22 05:04 36.5 C 83 16 102/55 L 95 Room Air 09/17/22 04:00 76 14 103/62 96 Room Air 09/17/22 02:49 84 16 103/63 95 Room Air 09/17/22 00:13 92 H 16 94/63 L 94 Room Air PG Care Time/CCT Total # of Minutes Spent Total Time Spent with Patient: Total time spent is greater than 50% in coordination of care (as documented) at patient's floor/unit and/or counseling patient: Coding Level of Care Code 34089 Initial Inpt Care Lvl 2 Diagnoses Urinary tract infection N39.0 Hematuria presence: without hematuria Urinary tract infection type: site unspecified (1) Urinary tract infection Hematuria presence: without hematuria Urinary tract infection type: site unspecified Qualified Code(s): N39.0 - Urinary tract infection, site not specified
--- NOTE | 2022-09-17 13:51 | Hospitalist Progress Note ---
Date of Service September 17, 2022 Assessment & Plan (1) Sepsis: Plan: 2nd #1 await cultures (2) UTI (urinary tract infection): Plan: await culture last 5+ cultures all w/ ecoli follows [facility] Urology and Urology in [facility] (3) AISHWARYA (acute kidney injury): Plan: sepsis-associated also addisonian crisis contributed (was off chronic prednisone x 5 days pre- hospital) (4) (HFpEF) heart failure with preserved ejection fraction: (5) Type 2 diabetes mellitus: (6) Hypothyroidism: (7) Rheumatoid arthritis: (8) Stage 3 chronic kidney disease: (9) Hypertension: Plan 1. cont broad-spectrum IV abx 2. stress dose steroids - hold prednisone, switch to hydrocortisone 50mg IV q8h 3. IV fluids 4. serial labs 5. hold CAMERON, cont BB as BP allows 6. PT, OT family updated at bedside Admission and Anticipated Discharge Date Admission Date: September 17, 2022 Subjective feels better today still weak- but a little better appetite a bit better, too recounts that she was recently on bactrim as outpatient for UTI - prescribed by her urologist via [facility] also admits she ran out of her prednisone x 5 days before admission /daughter at bedside Review of Systems Review of Systems: gen - still tired/fatigued cv - no orthopnea or cp pul - no dyspnea GI - no N/V Physical Exam Physical Exam: gen - cushingnoid in appearance, NAD, nontoxic mouth - MM dry; lips dry neck - no JVD heart - RRR, s1 s2 lungs - CTA b/l abd - mildly distended, BS+, NT ext - no edema, pulses 2+ b/l psych - a/o x 3 Results & Data Results & Data ([facility]) Vital Signs (Past 12 Hours) Vital Signs Temp Pulse Resp BP BP Pulse Ox O2 Del Method 09/17/22 08:05 Room Air 09/17/22 11:37 36.7 C 89 16 120/63 97 Room Air 09/17/22 08:59 36.5 C 90 16 99/67 L 94 Room Air 09/17/22 08:08 36.6 C 91 H 14 95/60 L 95 Room Air 09/17/22 06:27 86 18 103/63 95 Room Air 09/17/22 05:01 Room Air 09/17/22 05:04 36.5 C 83 16 102/55 L 95 Room Air 09/17/22 04:00 76 14 103/62 96 Room Air 09/17/22 02:49 84 16 103/63 95 Room Air Laboratory Results Laboratory Results - last 24 hr 09/16/22 09/16/22 09/16/22 21:00 21:00 21:00 WBC 19.82 H RBC 3.37 L Hgb 9.1 L Hct 30.6 L MCV 90.8 MCH 27.0 MCHC 29.7 L RDW Std Deviation 52.0 H RDW Coeff of Sumaya 15.9 H Plt Count 298 MPV 10.4 Immature Gran % (Auto) 1.5 Neut % (Auto) 88.0 Lymph % (Auto) 5.0 [place] % (Auto) 4.5 Eos % (Auto) 0.7 Baso % (Auto) 0.3 Reticulocyte % (Auto) Neut # (Auto) 17.45 H Lymph # (Auto) 1.00 L [place] # (Auto) 0.89 H Eos # (Auto) 0.13 Baso # (Auto) 0.06 Reticulocyte # Immature Gran # (Auto) 0.29 H RBC Morphology Sodium 136 Potassium 4.8 Chloride 105 Carbon Dioxide 23 Anion Gap 8 BUN 44 H Creatinine 2.69 H Est Cr Clr Drug Dosing Not Reportable Est GFR ( Amer) 20.4 Est GFR (Non-Af Amer) 17.6 BUN/Creatinine Ratio 16.4 Glucose 159 H POC Glucose Estimat Average Glucose Hemoglobin A1c Lactate Calcium 8.8 Phosphorus Magnesium Iron Unsaturated IBC Transferrin Ferritin Total Bilirubin 0.2 AST 15 ALT 19 Alkaline Phosphatase 71 Total Protein 6.6 Albumin 3.6 Globulin 3.0 Albumin/Globulin Ratio 1.2 Triglycerides Cholesterol LDL Cholesterol, Calc VLDL Cholesterol, Calc HDL Cholesterol Cholesterol/HDL Ratio Vitamin B12 Folate Procalcitonin Urine Color Yellow Urine Appearance Cloudy A Urine pH 5.0 Ur Specific [place] 1.017 Urine Protein Trace H Urine Glucose (UA) Negative Urine Ketones Trace H Urine Blood Negative Urine Nitrite Negative Urine Bilirubin Negative Urine Urobilinogen Negative Ur Leukocyte Esterase 3+ H Urine WBC (Auto) >30 H Urine RBC (Auto) 0-4 U Hyaline Cast (Auto) 10-30 H U Epithel Cells (Auto) >30 H Urine Bacteria (Auto) 1+ H SARS-CoV-2 (PCR) Influenza Type A (PCR) Influenza Type B (PCR) RSV (RT-PCR) 09/16/22 09/16/22 09/17/22 21:00 21:00 01:14 WBC RBC Hgb Hct MCV MCH MCHC RDW Std Deviation RDW Coeff of [place]aya Plt Count MPV Immature Gran % (Auto) Neut % (Auto) Lymph % (Auto) [place] % (Auto) Eos % (Auto) Baso % (Auto) Reticulocyte % (Auto) Neut # (Auto) Lymph # (Auto) [place] # (Auto) Eos # (Auto) Baso # (Auto) Reticulocyte # Immature Gran # (Auto) RBC Morphology Sodium Potassium Chloride Carbon Dioxide Anion Gap BUN Creatinine Est Cr Clr Drug Dosing Est GFR ( Amer) Est GFR (Non-Af Amer) BUN/Creatinine Ratio Glucose POC Glucose Estimat Average Glucose Hemoglobin A1c Lactate Calcium Phosphorus 4.2 Magnesium 2.3 Iron Unsaturated IBC Transferrin Ferritin Total Bilirubin AST ALT Alkaline Phosphatase Total Protein Albumin Globulin Albumin/Globulin Ratio Triglycerides Cholesterol LDL Cholesterol, Calc VLDL Cholesterol, Calc HDL Cholesterol Cholesterol/HDL Ratio Vitamin B12 Folate Procalcitonin 0.30 Urine Color Urine Appearance Urine pH Ur Specific [place] Urine Protein Urine Glucose (UA) Urine Ketones Urine Blood Urine Nitrite Urine Bilirubin Urine Urobilinogen Ur Leukocyte Esterase Urine WBC (Auto) Urine RBC (Auto) U Hyaline Cast (Auto) U Epithel Cells (Auto) Urine Bacteria (Auto) SARS-CoV-2 (PCR) NEGATIVE Influenza Type A (PCR) Negative Influenza Type B (PCR) Negative RSV (RT-PCR) Negative 09/17/22 09/17/22 09/17/22 02:01 05:58 05:58 WBC 12.17 H RBC 2.98 L Hgb 7.9 L Hct 27.6 L MCV 92.6 MCH 26.5 MCHC 28.6 L RDW Std Deviation 53.7 H RDW Coeff of [place] 15.9 H Plt Count 218 MPV 10.1 Immature Gran % (Auto) 2.0 Neut % (Auto) 84.3 Lymph % (Auto) 7.6 [place] % (Auto) 5.0 Eos % (Auto) 0.7 Baso % (Auto) 0.4 Reticulocyte % (Auto) 2.2 H Neut # (Auto) 10.26 H Lymph # (Auto) 0.93 L [place] # (Auto) 0.61 Eos # (Auto) 0.08 Baso # (Auto) 0.05 Reticulocyte # 0.07 Immature Gran # (Auto) 0.24 H RBC Morphology Unremarkable Sodium 138 Potassium 4.6 Chloride 110 H Carbon Dioxide 20 L Anion Gap 8 BUN 48 H Creatinine 2.77 H Est Cr Clr Drug Dosing 21.4 Est GFR ( Amer) 19.7 Est GFR (Non-Af Amer) 17.0 BUN/Creatinine Ratio 17.3 Glucose 142 H POC Glucose Estimat Average Glucose Hemoglobin A1c Lactate 1.2 Calcium 7.8 L Phosphorus Magnesium 2.3 Iron 11 L Unsaturated IBC 240 Transferrin 205 Ferritin 61.2 Total Bilirubin AST ALT Alkaline Phosphatase Total Protein Albumin Globulin Albumin/Globulin Ratio Triglycerides 318 H Cholesterol 234 H LDL Cholesterol, Calc 133 VLDL Cholesterol, Calc 64 H HDL Cholesterol 37 Cholesterol/HDL Ratio 6.3 H Vitamin B12 Folate Procalcitonin Urine Color Urine Appearance Urine pH Ur Specific [place] Urine Protein Urine Glucose (UA) Urine Ketones Urine Blood Urine Nitrite Urine Bilirubin Urine Urobilinogen Ur Leukocyte Esterase Urine WBC (Auto) Urine RBC (Auto) U Hyaline Cast (Auto) U Epithel Cells (Auto) Urine Bacteria (Auto) SARS-CoV-2 (PCR) Influenza Type A (PCR) Influenza Type B (PCR) RSV (RT-PCR) 09/17/22 09/17/22 09/17/22 05:58 05:58 08:22 WBC RBC Hgb Hct MCV MCH MCHC RDW Std Deviation RDW Coeff of [place]aya Plt Count MPV Immature Gran % (Auto) Neut % (Auto) Lymph % (Auto) [place] % (Auto) Eos % (Auto) Baso % (Auto) Reticulocyte % (Auto) Neut # (Auto) Lymph # (Auto) [place] # (Auto) Eos # (Auto) Baso # (Auto) Reticulocyte # Immature Gran # (Auto) RBC Morphology Sodium Potassium Chloride Carbon Dioxide Anion Gap BUN Creatinine Est Cr Clr Drug Dosing Est GFR ( Amer) Est GFR (Non-Af Amer) BUN/Creatinine Ratio Glucose POC Glucose 131 H Estimat Average Glucose 171 Hemoglobin A1c 7.6 H Lactate Calcium Phosphorus Magnesium Iron Unsaturated IBC Transferrin Ferritin Total Bilirubin AST ALT Alkaline Phosphatase Total Protein Albumin Globulin Albumin/Globulin Ratio Triglycerides Cholesterol LDL Cholesterol, Calc VLDL Cholesterol, Calc HDL Cholesterol Cholesterol/HDL Ratio Vitamin B12 > 1500 H Folate 9.02 Procalcitonin Urine Color Urine Appearance Urine pH Ur Specific [place] Urine Protein Urine Glucose (UA) Urine Ketones Urine Blood Urine Nitrite Urine Bilirubin Urine Urobilinogen Ur Leukocyte Esterase Urine WBC (Auto) Urine RBC (Auto) U Hyaline Cast (Auto) U Epithel Cells (Auto) Urine Bacteria (Auto) SARS-CoV-2 (PCR) Influenza Type A (PCR) Influenza Type B (PCR) RSV (RT-PCR) 09/17/22 12:14 WBC RBC Hgb Hct MCV MCH MCHC RDW Std Deviation RDW Coeff of [place]aya Plt Count MPV Immature Gran % (Auto) Neut % (Auto) Lymph % (Auto) [place] % (Auto) Eos % (Auto) Baso % (Auto) Reticulocyte % (Auto) Neut # (Auto) Lymph # (Auto) [place] # (Auto) Eos # (Auto) Baso # (Auto) Reticulocyte # Immature Gran # (Auto) RBC Morphology Sodium Potassium Chloride Carbon Dioxide Anion Gap BUN Creatinine Est Cr Clr Drug Dosing Est GFR ( Amer) Est GFR (Non-Af Amer) BUN/Creatinine Ratio Glucose POC Glucose 175 H Estimat Average Glucose Hemoglobin A1c Lactate Calcium Phosphorus Magnesium Iron Unsaturated IBC Transferrin Ferritin Total Bilirubin AST ALT Alkaline Phosphatase Total Protein Albumin Globulin Albumin/Globulin Ratio Triglycerides Cholesterol LDL Cholesterol, Calc VLDL Cholesterol, Calc HDL Cholesterol Cholesterol/HDL Ratio Vitamin B12 Folate Procalcitonin Urine Color Urine Appearance Urine pH Ur Specific [place] Urine Protein Urine Glucose (UA) Urine Ketones Urine Blood Urine Nitrite Urine Bilirubin Urine Urobilinogen Ur Leukocyte Esterase Urine WBC (Auto) Urine RBC (Auto) U Hyaline Cast (Auto) U Epithel Cells (Auto) Urine Bacteria (Auto) SARS-CoV-2 (PCR) Influenza Type A (PCR) Influenza Type B (PCR) RSV (RT-PCR) Diagnostic Findings blood/urine cx's neg PG Care Time/CCT Total # of Minutes Spent Total Time Spent with Patient: Total time spent is greater than 50% in coordination of care (as documented) at patient's floor/unit and/or counseling patient: Coding Level of Care Code 21187 Subseq Hosp Care Lvl 3 Diagnoses Sepsis A41.9 UTI (urinary tract infection) N39.0 AISHWARYA (acute kidney injury) N17.9 (HFpEF) heart failure with preserved ejection fraction I50.30 Type 2 diabetes mellitus E11.9 Hypothyroidism E03.9 Hypothyroidism type: unspecified Rheumatoid arthritis M06.9 Rheumatoid arthritis location: multiple sites Rheumatoid factor presence: unspecified presence Stage 3 chronic kidney disease N18.30 Hypertension I10 (1) Hypothyroidism Hypothyroidism type: unspecified Qualified Code(s): E03.9 - Hypothyroidism, unspecified (2) Rheumatoid arthritis Rheumatoid arthritis location: multiple sites Rheumatoid factor presence: unspecified presence Qualified Code(s): M06.9 - Rheumatoid arthritis, unspecified
--- NOTE | 2022-09-17 16:36 | Electrocardiogram Report ---
Test Reason : Blood Pressure : / mmHG Vent. Rate : 094 BPM Atrial Rate : 094 BPM P-R Int : 160 ms QRS Dur : 068 ms QT Int : 328 ms P-R-T Axes : 023 017 038 degrees QTc Int : 410 ms Normal sinus rhythm Normal ECG When compared with ECG of 04-OCT-2021 10:40, Premature atrial complexes are no longer Present Confirmed by Lance Walters [id number]) on 09/17/2022 4:36:24 PM Referred By: REFERRED SELF Confirmed By:Lance Walters
[2022-09-17] MEDS: GABAPENTIN 100 MG CAP PO SCH (20:37)
[2022-09-17] MEDS: CYCLOBENZAPRINE HCL 10 MG TAB PO SCH (20:37)
[2022-09-18] MEDS ORDERED: CEFEPIME 1,000 MG in SYRINGE 0 ML IV SCH (01:00)
[2022-09-18] MEDS: HYDROCORTISONE SOD 50 MG in SYRINGE 0 ML IV SCH ×2 (01:16→09:13)
[2022-09-18] MEDS: LACTATED RINGER'S 1,000 ML IV SCH ×2 (02:09→10:25)
[2022-09-18] MEDS: LEVOTHYROXINE SODIUM 100 MCG TABLET PO SCH (05:52)
[2022-09-18] MEDS: PANTOprazole 40 MG TAB PO SCH (05:52)
[2022-09-18] MEDS: HEPARIN SOD 5,000 UNIT/0.5 ML VIAL SQ SCH ×2 (05:52→18:35)
--- NOTE | 2022-09-18 06:30 | Billing Data ---
Date of Service September 18, 2022 Coding Level of Care Code 79871 Initial Inpt Care Lvl 3
[2022-09-18 08:21] LABS: Basophils # (auto) 0.02 K/uL (0-0.2); Basophils % (auto) 0.2 %; Hematocrit (blood only) 24.3 % (34.1-44.9); Hemoglobin 7.2 g/dl (12.0-16.0); Immature Granulocytes # (auto) 0.21 K/uL (0.00-0.02); Immature Granulocytes % (auto) 1.9 %; Lymphocytes # (auto) 0.51 K/uL (1.2-3.4); Lymphocytes % (auto) 4.6 %; Mean Corpuscular Hemoglobin 26.7 pg (25.0-34.0); Mean Corpuscular Hgb Conc 29.6 g/dL (32.0-36.0); Mean Platelet Volume 10.4 fL (9.4-12.3); Monocytes # (auto) 0.45 K/uL (0.24-0.82); Monocytes % (auto) 4.1 %; Neutrophils # (auto) 9.89 K/uL (1.4-6.5); Neutrophils % (auto) 89.2 %; Platelet Count 241 K/uL (130-400); RDW Coefficient of Variation 15.8 % (11.5-14.5); RDW Standard Deviation 51.6 fL (36.4-46.3); White Blood Count 11.08 K/ul (4.8-10.8)
[2022-09-18 08:42] LABS: BUN Creatinine Ratio 18.3 (10-20); Creatinine Clr Calc Pharmacy 26.5 ml/min; Est GFR (African American) 25.5 ml/min; Potassium 4.2 mmol/L (3.5-5.1)
[2022-09-18 08:48] LABS: Polychromasia 1+
[2022-09-18] MEDS: METOPROLOL SUCC 50MG EXT REL TAB PO SCH ×2 (09:13→20:36)
[2022-09-18] MEDS: INSULIN ASPART PER UNIT SC SCH ×4 (09:13→20:58)
[2022-09-18] MEDS: ASPIRIN 81 MG ECTAB PO SCH (09:13)
[2022-09-18] MEDS: LANTUS PER UNIT CHARGE SQ SCH (11:15)
[2022-09-18] MEDS ORDERED: SODIUM CHLORIDE 0.9% 250 ML IV PRN (12:47)
[2022-09-18] MEDS ORDERED: ACETAMINOPHEN 500 MG TAB PO ONE (12:48)
--- NOTE | 2022-09-18 12:49 | Hospitalist Progress Note ---
Date of Service September 18, 2022 Assessment & Plan (1) Sepsis: Plan: 2nd #2 sepsis resolved AISHWARYA nearly resolved blood cx's negative clinically improved with IV abx and supportive care (2) UTI (urinary tract infection): Plan: culture this admission with 3 or more organisms thus contaminated however, her u/a was suggestive of UTI at admission last 5+ cultures all w/ ecoli last urine cx at [facility] in August was pansens e.coli will assume this UTI was e.coli as well stop cefepime; change to IV ancef 1000mg BID can likely transition to PO keflex next 1-2 days repeat a u/a and urine cx to ensure things are clearing follows [facility] (3) AISHWARYA (acute kidney injury): Plan: sepsis-associated also addisonian crisis contributed (was off chronic prednisone x 5 days pre- hospital) IMPROVED creatinine down to low 2's can stop IV fluids repeat BMP am cont to hold CAMERON inhibitor 1 more day (4) (HFpEF) heart failure with preserved ejection fraction: Plan: mild LE edema but no pulm edema may need gentle diuresis post-PRBCs (5) Type 2 diabetes mellitus: Plan: cont basal-bolus insulin control satisfactory a1c 7.6% (6) Hypothyroidism: Plan: TSH 04/2021 was wnl should repeat a TSH while here cont synthroid in meantime (7) Rheumatoid arthritis: Plan: steroid dependent currently on stress doses of hydrocortisone IV lower to 25mg IV TID can likely then resume PO prednisone at home doses in next 1-2 days RA under control at this time (8) Stage 3 chronic kidney disease: Plan: baseline Cr about 1.8 bmp am AISHWARYA resolving (9) Hypertension: Plan: BPs had been low-normal in setting of #1 cont to hold CAMERON cont metoprolol BID resume CAMERON once AISHWARYA resolved (10) Anemia of chronic disease: Plan: baseline Hb about 8-9 7.2 today stool sent for fecal occult -- was negative drop in Hb likely from frequent blood draws and dilutional as she has had copious IV fluids plan Tx 1 unit PRBCs today consent obtained B12, folate, iron levels all acceptable Plan PT, OT needed progressing nicely Admission and Anticipated Discharge Date Admission Date: September 17, 2022 Subjective patient feeling better overall appetite improved energy improved making more urine ambulating denies dizziness denies dyspnea Review of Systems Review of Systems: gen - no fevers or chills cv - no cp; she notes mild edema today pulm - no coughing or wheezing abd - no vomiting Physical Exam Physical Exam: gen - cushingnoid in appearance, NAD; looks much better today mouth - MMM neck - no JVD heart - RRR, s1 s2 lungs - CTA b/l, scant rales bases abd - soft, ND, BS+, NT ext - 1+ edema b/l, pulses 2+ b/l psych - a/o x 3 skin - generalized pallor Results & Data Results & Data ([facility]) Vital Signs (Past 12 Hours) Vital Signs Temp Pulse Resp BP Pulse Ox O2 Del Method 09/18/22 07:35 Room Air 09/18/22 07:41 37 C 102 H 16 144/72 H 95 Room Air Laboratory Results Laboratory Results - last 24 hr 09/17/22 09/17/22 09/18/22 17:10 20:38 07:17 WBC 11.08 H RBC 2.70 L Hgb 7.2 L Hct 24.3 L MCV 90.0 MCH 26.7 MCHC 29.6 L RDW Std Deviation 51.6 H RDW Coeff of [place] 15.8 H Plt Count 241 MPV 10.4 Immature Gran % (Auto) 1.9 Neut % (Auto) 89.2 Lymph % (Auto) 4.6 [place] % (Auto) 4.1 Eos % (Auto) 0.0 Baso % (Auto) 0.2 Neut # (Auto) 9.89 H Lymph # (Auto) 0.51 L [place] # (Auto) 0.45 Eos # (Auto) 0.00 Baso # (Auto) 0.02 Immature Gran # (Auto) 0.21 H Polychromasia 1+ Sodium Potassium Chloride Carbon Dioxide Anion Gap BUN Creatinine Est Cr Clr Drug Dosing Est GFR ( Amer) Est GFR (Non-Af Amer) BUN/Creatinine Ratio Glucose POC Glucose 252 H 267 H Calcium Stool Occult Bld Scrn 09/18/22 09/18/22 09/18/22 07:17 08:17 11:30 WBC RBC Hgb Hct MCV MCH MCHC RDW Std Deviation RDW Coeff of [place]aya Plt Count MPV Immature Gran % (Auto) Neut % (Auto) Lymph % (Auto) [place] % (Auto) Eos % (Auto) Baso % (Auto) Neut # (Auto) Lymph # (Auto) [place] # (Auto) Eos # (Auto) Baso # (Auto) Immature Gran # (Auto) Polychromasia Sodium 138 Potassium 4.2 Chloride 111 H Carbon Dioxide 21 Anion Gap 6 BUN 41 H Creatinine 2.24 H D Est Cr Clr Drug Dosing 26.5 Est GFR ( Amer) 25.5 Est GFR (Non-Af Amer) 22.0 BUN/Creatinine Ratio 18.3 Glucose 183 H POC Glucose 233 H Calcium 8.0 L Stool Occult Bld Scrn Negative 09/18/22 12:12 WBC RBC Hgb Hct MCV MCH MCHC RDW Std Deviation RDW Coeff of [place]aya Plt Count MPV Immature Gran % (Auto) Neut % (Auto) Lymph % (Auto) [place] % (Auto) Eos % (Auto) Baso % (Auto) Neut # (Auto) Lymph # (Auto) [place] # (Auto) Eos # (Auto) Baso # (Auto) Immature Gran # (Auto) Polychromasia Sodium Potassium Chloride Carbon Dioxide Anion Gap BUN Creatinine Est Cr Clr Drug Dosing Est GFR ( Amer) Est GFR (Non-Af Amer) BUN/Creatinine Ratio Glucose POC Glucose 141 H Calcium Stool Occult Bld Scrn Diagnostic Findings urine cx from admission neg blood cx's from admission neg PG Care Time/CCT Total # of Minutes Spent Total Time Spent with Patient: Total time spent is greater than 50% in coordination of care (as documented) at patient's floor/unit and/or counseling patient: Coding Level of Care Code 92102 Subseq Hosp Care Lvl 3 Diagnoses Sepsis A41.9 UTI (urinary tract infection) N39.0 AISHWARYA (acute kidney injury) N17.9 (HFpEF) heart failure with preserved ejection fraction I50.30 Type 2 diabetes mellitus E11.9 Hypothyroidism E03.9 Hypothyroidism type: unspecified Rheumatoid arthritis M06.9 Rheumatoid arthritis location: multiple sites Rheumatoid factor presence: unspecified presence Stage 3 chronic kidney disease N18.30 Hypertension I10 Anemia of chronic disease D63.8 (1) Rheumatoid arthritis Rheumatoid arthritis location: multiple sites Rheumatoid factor presence: unspecified presence Qualified Code(s): M06.9 - Rheumatoid arthritis, unspecified (2) Hypothyroidism Hypothyroidism type: unspecified Qualified Code(s): E03.9 - Hypothyroidism, unspecified
[2022-09-18 14:33] LABS: Appearance Urine Clear (Clear); Bacteria Urine Automated Negative (Negative); Bilirubin Urine Negative (Negative); Blood Urine Negative (Negative); Color Urine Yellow; Glucose Urine UA Negative (Negative); Ketones Urine Negative (Negative); Leukocyte Esterase Urine Trace (Negative); Nitrite Urine Negative (Negative); Protein Urine Trace (Negative); RBC Urine Automated 0-4 /hpf (0-4); Specific Gravity Urine 1.016 (1.000-1.030); Urobilinogen Urine Negative (Negative); pH Urine 5.5 (4.5-7.5)
[2022-09-18] MEDS: HYDROCORTISONE SOD 25 MG in SYRINGE 0 ML IV SCH (18:35)
[2022-09-18] MEDS: GABAPENTIN 100 MG CAP PO SCH (20:35)
[2022-09-18] MEDS: CYCLOBENZAPRINE HCL 10 MG TAB PO SCH (20:35)
[2022-09-18] MEDS: ceFAZolin 1000MG 1,000 MG/7.5 ML SYR IV SCH (21:37)
[2022-09-19] MEDS: HYDROCORTISONE SOD 25 MG in SYRINGE 0 ML IV SCH ×2 (00:52→08:45)
[2022-09-19] MEDS: HEPARIN SOD 5,000 UNIT/0.5 ML VIAL SQ SCH ×2 (05:31→21:06)
[2022-09-19] MEDS: LEVOTHYROXINE SODIUM 100 MCG TABLET PO SCH (05:31)
[2022-09-19] MEDS: PANTOprazole 40 MG TAB PO SCH (05:31)
[2022-09-19 08:11] LABS: Basophils # (auto) 0.05 K/uL (0-0.2); Basophils % (auto) 0.6 %; Eosinophils # (auto) 0.07 K/uL (0-0.50); Eosinophils % (auto) 0.8 %; Hematocrit (blood only) 27.6 % (34.1-44.9); Hemoglobin 8.4 g/dl (12.0-16.0); Immature Granulocytes # (auto) 0.22 K/uL (0.00-0.02); Immature Granulocytes % (auto) 2.6 %; Lymphocytes # (auto) 1.13 K/uL (1.2-3.4); Lymphocytes % (auto) 13.2 %; Mean Corpuscular Hemoglobin 27.7 pg (25.0-34.0); Mean Corpuscular Hgb Conc 30.4 g/dL (32.0-36.0); Mean Corpuscular Volume 91.1 fL (80.0-100.0); Mean Platelet Volume 9.9 fL (9.4-12.3); Monocytes # (auto) 0.57 K/uL (0.24-0.82); Monocytes % (auto) 6.6 %; Neutrophils # (auto) 6.54 K/uL (1.4-6.5); Neutrophils % (auto) 76.2 %; Platelet Count 235 K/uL (130-400); RDW Coefficient of Variation 15.3 % (11.5-14.5); RDW Standard Deviation 50.7 fL (36.4-46.3); Red Blood Count 3.03 M/uL (3.93-5.22); White Blood Count 8.58 K/ul (4.8-10.8)
[2022-09-19 08:36] LABS: BUN Creatinine Ratio 22.6 (10-20); Calcium 8.3 mg/dl (8.5-10.1); Creatinine Clr Calc Pharmacy 31.9 ml/min; Est GFR (African American) 31.9 ml/min; Est GFR (Non-African American) 27.5 ml/min; Potassium 4.2 mmol/L (3.5-5.1)
[2022-09-19] MEDS: ASPIRIN 81 MG ECTAB PO SCH (08:45)
[2022-09-19] MEDS: LANTUS PER UNIT CHARGE SQ SCH (08:45)
[2022-09-19] MEDS: ceFAZolin 1000MG 1,000 MG/7.5 ML SYR IV SCH ×2 (08:45→21:07)
[2022-09-19] MEDS: ADVANCED PROBIOTIC 1250 MG CAPSULE PO SCH (08:46)
[2022-09-19] MEDS: METOPROLOL SUCC 50MG EXT REL TAB PO SCH ×2 (08:46→21:05)
[2022-09-19] MEDS: INSULIN ASPART PER UNIT SC SCH ×4 (09:27→22:20)
[2022-09-19] MEDS ORDERED: FUROSEMIDE 20 MG TAB PO ONE (18:15)
[2022-09-19] MEDS: GABAPENTIN 100 MG CAP PO SCH (21:05)
[2022-09-19] MEDS: CYCLOBENZAPRINE HCL 10 MG TAB PO SCH (21:20)
--- NOTE | 2022-09-19 21:32 | Hospitalist Progress Note ---
Date of Service September 19, 2022 Assessment & Plan (1) Sepsis: Plan: 2nd #2 - resolved AISHWARYA resolved blood cx's negative clinically improved with IV abx and supportive care (2) UTI (urinary tract infection): Plan: culture this admission with 3 or more organisms thus contaminated however, her u/a was suggestive of UTI at admission last 5+ cultures all w/ ecoli last urine cx at [facility] in August was pansens e.coli will assume this UTI was e.coli as well I repeated a u/a yesterday - the u/a looks better, and repeat urine cx negative cont IV ancef 1000mg BID today, then change to PO keflex tomorrow pt needs cystoscopy once UTI has cleared - will keep her on keflex until she sees urology as outpatient (3) AISHWARYA (acute kidney injury): Plan: sepsis-associated also addisonian crisis contributed (was off chronic prednisone x 5 days pre- hospital) resolved CR today 1.8 - baseline repeat BMP am cont to hold CAMERON inhibitor (4) (HFpEF) heart failure with preserved ejection fraction: Plan: mild LE edema but no pulm edema give lasix PO today, and again tomorrow, and consider for a few more days at d/c (5) Type 2 diabetes mellitus: Plan: cont basal-bolus insulin control satisfactory a1c 7.6% (6) Hypothyroidism: Plan: TSH 0.8 cont synthroid (7) Rheumatoid arthritis: Plan: steroid dependent currently on stress doses of steroid d/c IV change to prednisone 20mg in am then cut to 10mg then resume at usual dose of 5mg/day RA under control at this time follows with [facility] - Dr Ki Padron (8) Stage 3 chronic kidney disease: Plan: baseline Cr about 1.8 Cr today 1.8 AISHWARYA resolved (9) Hypertension: Plan: BPs mildly high today but acceptable likely resume CAMERON tomorrow if Cr stable (10) Anemia of chronic disease: Plan: baseline Hb about 8-9 7.2 today stool sent for fecal occult -- was negative drop in Hb likely from frequent blood draws and dilutional as she has had copious IV fluids s/p 1 unit PRBCs 09/18 tolerated well H/H stable today B12, folate, iron levels all acceptable Plan PT, OT needed if she passes PT/OT evals can d/c home tomorrow with o2 sats low-nl would consider 2-step before discharge Admission and Anticipated Discharge Date Admission Date: September 17, 2022 Subjective patient feels "great" energy back to normal eating well ambulating in room no dyspnea - slight wheeze at times but "it's been like that since I had COVID" (in 2020) LE edema continues tolerated PRBCs yesterday without issue no other new complaints Review of Systems Review of Systems: gen - no fevers cv - mild orthopnea pulm - mild KRISHNA/wheeze GI - no abd pain or nausea Physical Exam Physical Exam: gen - cushingnoid in appearance, NAD; looks great today mouth - MMM neck - no JVD heart - RRR, s1 s2 lungs - CTA b/l abd - soft, ND, BS+, NT ext - 1-2+ edema b/l, pulses 2+ b/l psych - a/o x 3 Results & Data Results & Data ([facility]) Vital Signs (Past 12 Hours) Vital Signs Temp Pulse Resp BP Pulse Ox O2 Del Method 09/19/22 21:09 36.9 C 89 16 152/89 H 91 Room Air 09/19/22 15:00 36.6 C 91 H 16 155/87 H 95 Room Air Laboratory Results Laboratory Results - last 24 hr 09/18/22 09/19/22 09/19/22 13:02 07:37 07:37 WBC 8.58 RBC 3.03 L Hgb 8.4 L Hct 27.6 L MCV 91.1 MCH 27.7 MCHC 30.4 L RDW Std Deviation 50.7 H RDW Coeff of [place] 15.3 H Plt Count 235 MPV 9.9 Immature Gran % (Auto) 2.6 Neut % (Auto) 76.2 Lymph % (Auto) 13.2 [place] % (Auto) 6.6 Eos % (Auto) 0.8 Baso % (Auto) 0.6 Neut # (Auto) 6.54 H Lymph # (Auto) 1.13 L [place] # (Auto) 0.57 Eos # (Auto) 0.07 Baso # (Auto) 0.05 Immature Gran # (Auto) 0.22 H Sodium 139 Potassium 4.2 Chloride 111 H Carbon Dioxide 23 Anion Gap 5 BUN 42 H Creatinine 1.86 H D Est Cr Clr Drug Dosing 31.9 Est GFR ( Amer) 31.9 Est GFR (Non-Af Amer) 27.5 BUN/Creatinine Ratio 22.6 H Glucose 114 H POC Glucose Calcium 8.3 L TSH Crossmatch See Detail 09/19/22 09/19/22 09/19/22 07:37 08:40 12:04 WBC RBC Hgb Hct MCV MCH MCHC RDW Std Deviation RDW Coeff of [place] Plt Count MPV Immature Gran % (Auto) Neut % (Auto) Lymph % (Auto) [place] % (Auto) Eos % (Auto) Baso % (Auto) Neut # (Auto) Lymph # (Auto) [place] # (Auto) Eos # (Auto) Baso # (Auto) Immature Gran # (Auto) Sodium Potassium Chloride Carbon Dioxide Anion Gap BUN Creatinine Est Cr Clr Drug Dosing Est GFR ( Amer) Est GFR (Non-Af Amer) BUN/Creatinine Ratio Glucose POC Glucose 97 97 Calcium TSH 0.805 Crossmatch 09/19/22 09/19/22 17:37 20:16 WBC RBC Hgb Hct MCV MCH MCHC RDW Std Deviation RDW Coeff of [place] Plt Count MPV Immature Gran % (Auto) Neut % (Auto) Lymph % (Auto) [place] % (Auto) Eos % (Auto) Baso % (Auto) Neut # (Auto) Lymph # (Auto) [place] # (Auto) Eos # (Auto) Baso # (Auto) Immature Gran # (Auto) Sodium Potassium Chloride Carbon Dioxide Anion Gap BUN Creatinine Est Cr Clr Drug Dosing Est GFR ( Amer) Est GFR (Non-Af Amer) BUN/Creatinine Ratio Glucose POC Glucose 92 124 H Calcium TSH Crossmatch Diagnostic Findings blood cx's negative PG Care Time/CCT Total # of Minutes Spent Total Time Spent with Patient: Total time spent is greater than 50% in coordination of care (as documented) at patient's floor/unit and/or counseling patient: Coding Level of Care Code 48128 Subseq Hosp Care Lvl 2 Diagnoses Sepsis A41.9 UTI (urinary tract infection) N39.0 AISHWARYA (acute kidney injury) N17.9 (HFpEF) heart failure with preserved ejection fraction I50.30 Type 2 diabetes mellitus E11.9 Hypothyroidism E03.9 Hypothyroidism type: unspecified Rheumatoid arthritis M06.9 Rheumatoid arthritis location: multiple sites Rheumatoid factor presence: unspecified presence Stage 3 chronic kidney disease N18.30 Hypertension I10 Anemia of chronic disease D63.8 (1) Rheumatoid arthritis Rheumatoid arthritis location: multiple sites Rheumatoid factor presence: unspecified presence Qualified Code(s): M06.9 - Rheumatoid arthritis, unspecified (2) Hypothyroidism Hypothyroidism type: unspecified Qualified Code(s): E03.9 - Hypothyroidism, unspecified
[2022-09-20] MEDS: LEVOTHYROXINE SODIUM 100 MCG TABLET PO SCH (05:33)
[2022-09-20] MEDS: PANTOprazole 40 MG TAB PO SCH (05:33)
[2022-09-20 06:11] LABS: Hematocrit (blood only) 28.9 % (34.1-44.9); Mean Corpuscular Hemoglobin 27.6 pg (25.0-34.0); Mean Corpuscular Hgb Conc 31.1 g/dL (32.0-36.0); Mean Corpuscular Volume 88.7 fL (80.0-100.0); Mean Platelet Volume 9.5 fL (9.4-12.3); Nucleated RBC # (auto) 0.03 K/uL (0-0); Nucleated RBC % (auto) 0.3 %; Platelet Count 248 K/uL (130-400); RDW Coefficient of Variation 15.4 % (11.5-14.5); RDW Standard Deviation 50.3 fL (36.4-46.3); Red Blood Count 3.26 M/uL (3.93-5.22); White Blood Count 9.98 K/ul (4.8-10.8)
[2022-09-20 06:52] LABS: BUN Creatinine Ratio 19.9 (10-20); Calcium 8.4 mg/dl (8.5-10.1); Creatinine Clr Calc Pharmacy 32.8 ml/min; Est GFR (African American) 32.9 ml/min; Est GFR (Non-African American) 28.4 ml/min; Potassium 3.7 mmol/L (3.5-5.1)
[2022-09-20] MEDS ORDERED: FUROSEMIDE 40 MG TAB PO ONE (07:25)
[2022-09-20] MEDS ORDERED: POTASSIUM CHLORIDE CRTAB 20 MEQ TABCR PO STA (07:25)
[2022-09-20] MEDS: HEPARIN SOD 5,000 UNIT/0.5 ML VIAL SQ SCH (08:19)
[2022-09-20] MEDS: ADVANCED PROBIOTIC 1250 MG CAPSULE PO SCH (08:20)
[2022-09-20] MEDS: ASPIRIN 81 MG ECTAB PO SCH (08:20)
[2022-09-20] MEDS: LANTUS PER UNIT CHARGE SQ SCH (08:52)
[2022-09-20] MEDS: INSULIN ASPART PER UNIT SC SCH ×2 (08:55→13:09)
[2022-09-20] MEDS ORDERED: predniSONE 20 MG TAB PO SCH (09:00)
[2022-09-20] MEDS ORDERED: predniSONE 5 MG TAB PO SCH (09:00)
[2022-09-20] MEDS ORDERED: cephALEXin 500 MG CAP PO SCH (09:00)
[2022-09-20] MEDS: METOPROLOL SUCC 50MG EXT REL TAB PO SCH (09:27)
--- NOTE | 2022-09-20 14:37 | Discharge Summary ---
Date of Service date of admission - September 17, 2022 date of discharge - September 20, 2022 Admission HPI Per Admitting Provider This 67-year-old female with a history of recurrent UTIs, CKD stage III, prior TIA, chronic anemia, type 2 diabetes, rheumatoid arthritis, hypothyroidism who presented to [facility] for evaluation of weakness and fatigue. While patient was able to provide some history, she was intermittently falling back asleep throughout our conversation. Most of the history is obtained through in provider communication. Over the past 2 weeks, patient reports that she has progressively become more fatigued and disoriented. She reports feeling tired. She endorses some mild suprapubic pain. She denies any urinary frequency urgency or dysuria. Denies any dysuria. Denies any back pain. She does tell me that she has had swelling in her legs for the last several months, but is unable to provide much more detail than this. She denies any pain in her legs. She does tell me that she is chronically on prednisone 5 mg daily, and has been out of this for the last 5 days. Of note, patient follows with [facility] urogynecology and has been seen twice over the last 2 months for recurrent UTI symptoms. Initially, she was seen on 08/07 for UTI related symptoms, for which she was given Keflex for 7 days. Unfortunately, her symptoms recurred and on 08/27, she was prescribed Bactrim twice daily for 10 days. Review of her urine cultures demonstrates a culture from 1109 demonstrating pansensitive E. coli, however, cultures from July 2020 to demonstrate E. coli and Klebsiella resistant to Bactrim. Medications reviewed and include Tylenol, albuterol, aspirin, vitamin D, get cyclobenzaprine, gabapentin, levothyroxine, lisinopril, magnesium, metoprolol, omeprazole, prednisone 5 mg nightly. In the ED, patient was found to be with blood pressure 98/59 with heart rate 95. She was saturating well on room temperature. Afebrile upon arrival. Labs demonstrated white count 19.8 with left shift and normocytic anemia at 9.1 (baseline usually around 10-11). Chemistries reveal BUN 44/creatinine 2.69 (baseline creatinine appears to be around 1.41.6), lactate 1.2, Pro-Sivakumar 0.3. Urinalysis demonstrates a cloudy appearing urine with trace protein, 3+ leuk esterase, over 30 WBCs, 1+ bacteria in the setting of >30 WBCs. COVID, flu, and RSV negative. CT-AP STAT Rad: " Punctate nonobstructing right lower pole infra renal calculus. No hydronephrosis seen. Bilateral renal atrophy."Blood cultures and urine cultures pending. She was given cefepime and IVF. Principal Diagnosis 1. sepsis due to likely UTI 2. acute kidney injury 3. addisonian crisis Discharge Exam gen - cushingnoid in appearance, NAD; looks great; pleasant mouth - MMM neck - no JVD heart - RRR, s1 s2 lungs - CTA b/l abd - soft, ND, BS+, NT ext - <1+ edema b/l, pulses 2+ b/l psych - a/o x 3 Discharge Data Allergies Allergy/AdvReac Type Severity Reaction Status Date / Time nitrofurantoin Allergy Severe HEADACHE Verified 09/23/22 10:48 tetracycline Allergy Severe RASH ON Verified 09/23/22 10:48 FACE Qtfarrk-AWZ-OxI Reductase AdvReac Intermediate LE edema Verified 09/23/22 10:48 Inhibitor [Ikfjufp-Nay-Kgt Reductase Inhibitor] oxycodone AdvReac Drowsy Verified 09/23/22 10:48 Consultations [facility] PT, OT Procedures Performed 1 unit PRBCs Ordered Studies Abdomen/Pelvis CT 09/17/22 00:24 CT OF THE ABDOMEN AND PELVIS WITHOUT CONTRAST CLINICAL HISTORY: Acute kidney injury. Urinary tract infection. COMPARISON STUDY: CT of the abdomen and pelvis October 04, 2021. TECHNIQUE: Axial images of the abdomen and pelvis were obtained without IV contr ast. Images were reviewed in the axial, sagittal, and coronal planes. Automated exposure control was utilized for the study. A dose lowering technique was utilized adhering to the principles of ALARA. FINDINGS: 4 mm calculus within lower pole of the right kidney is noted. There are no ureteral calculi. There is no hydronephrosis. Moderate right and mild left renal cortical thinning is noted. Evaluation of the remainder of the abdomen and pelvis is suboptimal on this unenhanced exam. There are gallstones within the gallbladder. There is no evidence for acute cholecystitis. Liver, spleen, adrenal glands and pancreas are unremarkable. There is no biliary or pancreatic ductal dilatation. There is no evidence for a bowel obstruction. Colonic diverticulosis is present. No evidence for acute diverticulitis. Mild sigmoid colon wall thickening may be due to circular muscular hypertrophy. No adjacent inflammation is present. There is no lymphadenopathy. No ascites is present. L3-L5 discectomy, posterior decompression and bilateral pedicle screw fusion is noted. Anterolisthesis of L5 on S1 due to bilateral L5 pars defect is unchanged. Moderate compression fracture of the inferior endplate of T12 is new since CT of October 04, 2021. There is 4 mm of associated retropulsion. IMPRESSION: 1. 4 mm right renal calculus. No ureteral calculi or hydronephrosis. 2. Colonic diverticulosis. No evidence for acute diverticulitis. 3. Moderate compression fracture of the inferior endplate of T12 which is new since CT of October 04, 2021 but likely subacute to chronic. Mild associated retropulsion. 4. Cholelithiasis. No evidence for acute cholecystitis. ACT 112: Negative or not required by law. Electronically signed by: Gus Ojeda M.D. 09/17/2022 7:59 AM Chest X-Ray 09/17/22 00:32 XR chest 1V portable CLINICAL HISTORY: Shortness of breath. COMPARISON STUDY: Chest radiograph April 02, 2022. FINDINGS: Lung volumes are mildly diminished. There is no pneumothorax or pleural effusion. Mild cardiomegaly is noted. Slight interstitial prominence is noted. No consolidation to suggest pneumonia. Minimal left basilar opacity favors atelectasis. This is similar to prior exams. IMPRESSION: No definite acute findings. Mild cardiomegaly with subtle interstitial thickening, likely chronic. ACT 112: Negative or not required by law. Electronically signed by: Gus Ojeda M.D. 09/17/2022 7:40 AM Hospital Course (1) Sepsis: 2nd #2 AISHWARYA resolved blood cx's negative clinically improved with IV abx and supportive care (2) UTI (urinary tract infection): Patient's admission urine culture showed 3 or more organisms - thus it was contaminated. However, her u/a was suggestive of UTI at admission. last 10+ urine cultures at [facility] have all grown e coli - pansensitive. last urine culture at [facility] in August was pansensitive e.coli as well. will assume this UTI was e.coli. The patient improved on IV antibiotic therapy, and was transitioned to PO keflex 500mg BID at discharge. Once her keflex course is complete, she will downgrade to keflex 250mg once daily for UTI prophylaxis while awaiting cystoscopy which is planned for sometime in October 2022. (3) AISHWARYA (acute kidney injury): sepsis-associated also addisonian crisis contributed (was off chronic prednisone x 5 days pre- hospital) resolved Peak Cr was 2.7, improving to 1.8 at discharge CAMERON inhibitor was held during the stay However, lisinopril was resumed upon discharge at 1/2 her previous dose; thus, she will take 20mg once daily at home (4) (HFpEF) heart failure with preserved ejection fraction: the patient had mild LE edema but no pulmonary edema during the visit she was given lasix while here, and was given a prescription for such at discharge I asked her to take 1 additional dose of lasix the day after discharge, then use PRN for weight gain/edema thereafter (5) Type 2 diabetes mellitus: patient required basal-bolus insulin during the visit Hba1c 7.6% she is not on any therapy for DM at home follow-up with PCP for this (6) Hypothyroidism: TSH 0.8 cont synthroid (7) Rheumatoid arthritis: steroid dependent, but had run out of her daily prednisone about 5 days prior to admission BPs were low or low-normal and thus stress dose IV steroids were employed while here after discharge she will continue to taper her prednisone and then ultimately land on her usual dose of 5mg/day RA is under control at this time follows with [facility] - Dr Ki Padron (8) Stage 3 chronic kidney disease: baseline Cr about 1.8 Cr at discharge 1.8 she will f/u with Dr Lady Croft post-discharge for her CKD (9) Hypertension: BPs were low or low-normal in the setting of sepsis and addisonian crisis lisinopril was held during the visit but metoprolol was continued per previous home dosing at discharge her lisinopril was resumed albeit at 1/2 her usual dose; again, she will only take 20mg/day upon discharge home (10) Anemia of chronic disease: baseline Hb about 8-9 lowest Hb while here was 7.2 stool sent for fecal occult -- was negative drop in Hb likely from frequent blood draws and dilutional as she has had copious IV fluids during the visit s/p 1 unit PRBCs tolerated well H/H stable today B12, folate, iron levels all acceptable discharge hemoglobin 9 (11) Thoracic compression fracture: seen incidentally on CT imaging but no symptoms referable to the compression fracture Plan seen by PT/OT and cleared for home with her family Total Time Total Time Spent Total Time Spent (In Minutes): 45 Discharge Plan Discharge Items Patient Disposition: Home - Self-Care Reason For Visit: Urinary Tract Infection Discharge Diagnosis: 1. Urinary tract infection - resolved at the present time 2. Sepsis due to #1 - resolved 3. Acute kidney injury due to sepsis - resolved 4. Chronic kidney disease - discharge creatinine 1.8 (baseline) 5. Anemia - 1 unit of blood given 6. Chronic prednisone use for rheumatoid arthritis Activity: Resume your previous activity Activity Comment: as tolerated Non-emergency contact: Primary Care Provider, Deputy Sheriff and Urologist Call non-emergency contact if: you have any medication questions, your symptoms worsen and you have a fever Follow-up/Referrals: Corby Arzola MD [Primary Care Provider] - 09/25/22 2:00 pm (1 week) Lady Croft MD [Physician] - 10/08/22 11:10 am (2 weeks) Jaxon Ramos MD [Physician] - 10/01/22 10:15 am (1-2 weeks) Diet: Carb Consistent or DM2 Addtl Attending Provider Instructions: Mrs Champagne, You were hospitalized due to weakness and fatigue from urinary tract infection (UTI). You had evidence of sepsis which is when the infection causes you to feel poorly from head to toe. With sepsis the kidney function can temporarily worsen, you can become confused, etc. Fortunately we did not find any evidence of blood stream infection -- your blood cultures were negative. The urinalysis you provided on your first day here was highly suspicious for urinary tract infection but the culture didn't grow a specific bacterium. It is likely, however, that the culprit bacterium was e.coli which you have had many times in the past including August. A 2nd urine culture and urinalysis were sent and both of these showed that the infection was resolving/resolved. Your kidney function improved with IV fluids, steroids, and time. Your creatinine level is 1.8 at time of discharge which is your "baseline" for you. You received 1 unit of blood while here. Your hemoglobin on 09/20/22 is 9. In 09/2021 your hemoglobin was approximately 10. It seems as if you have developed chronic anemia, perhaps due to your kidney disease. You will need close follow-up of your blood counts. We checked your stool for blood and this was negative. Recommendations - 1. For your current UTI take - * cephalexin 500mg twice daily x 5 more days, first dose TONIGHT 2. STOP the sulfa antibiotic that you were recently taking (the bottle likely says "sulfamethoxazole-trimethoprim"). 3. When the 5-day course of cephalexin 500mg twice daily is complete, please take - * cephalexin 250mg once daily for urinary tract infection prevention * I would stay on this until you have your cystoscopy OR your urologists tell you to stop it 4. For recent fluid build-up take - * furosemide 20mg x 1 on 09/21/22, in the morning * after that dose tomorrow you can take the furosemide on a periodic basis if your feet/ankles are swollen 5. Prednisone - * take 10mg x 1 on 09/21/22 * on 09/22/22, resume your CHRONIC DAILY DOSE OF PREDNISONE 5MG ONCE DAILY 6. LOWER your lisinopril to 1/2 tablet once daily. This equates to 20mg once daily. Dr Croft is aware of this dose adjustment. You can start this tomorrow. 7. take a probiotic supplement once daily as long as you are taking antibiotics. Be sure to have your outpatient doctors recheck a CBC and kidney function level within the next week to ensure stability of your labs Follow-up - see separate section; be sure to follow-up with Dr Coon at [facility] as well in the early portion of October 2022 Return to [facility] if - * you have fevers over 100 degrees * you develop severe diarrhea * you have worsening shortness of breath * you have extreme weakness or dizziness * any other concerns It was our pleasure to care for you at [facility]! Happy holidays, Dr Bhatia Pending Studies at Discharge: No Stand-Alone Forms: My [facility], Smoking Cessation Medications and DC Order Prescriptions: New Advanced Probiotic 625 mg (10 billion cell) Capsule 2 cap PO DAILY Qty: 60 0RF cephalexin 250 mg capsule 250 mg PO DAILY Qty: 30 0RF Rx Instructions: for urinary tract infection prevention; start when the 5-day course of cephalexin 500mg twice daily is complete. furosemide [Lasix] 20 mg tablet 20 mg PO DAILY PRN (Reason: edema of legs) Qty: 14 0RF Continued (DME) Accu-Chek Ida Plus test strp Strip See Rx Instructions .ROUTE .MEDSUPPLY Qty: 200 2RF Rx Instructions: Check Twice Daily levothyroxine 100 mcg tablet 100 mcg PO QAM Qty: 90 3RF albuterol sulfate [Ventolin HFA] 90 mcg/actuation HFA aerosol inhaler 2 puff inhalation QID PRN (Reason: shortness of breath or wheezing) Qty: 8.5 1RF (DME) blood-glucose meter [Accu-Chek Ida Plus Meter] Misc See Rx Instructions .ROUTE .MEDSUPPLY Qty: 1 0RF Rx Instructions: diabetes mellitus type 2- checks blood sugar twice daily magnesium 250 mg Tablet 250 mg PO QAM cholecalciferol (vitamin D3) [Vitamin D3] 1,000 unit Capsule 1,000 unit PO QAM acetaminophen [Tylenol Extra Strength] 500 mg Tablet 1,000 mg PO Q6H PRN (Reason: Pain) omeprazole 40 mg capsule,delayed release(DR/EC) 40 mg PO DAILYBB aspirin 81 mg tablet,delayed release (DR/EC) 81 mg PO QAM Rx Instructions: purchase [id number] cyclobenzaprine 10 mg tablet 10 mg PO HS prednisone 5 mg tablet 5 mg PO QPM Changed metoprolol succinate 50 mg tablet extended release 24 hr 125 mg PO UD Qty: 1 0RF Rx Instructions: takes 1 & 1/2 tablets in the morning (75mg) and 1 tablet at bedtime (50mg) gabapentin 100 mg capsule 100 mg PO HS Qty: 1 0RF lisinopril 40 mg tablet 20 mg PO QAM Qty: 1 0RF Discontinued sulfamethoxazole-trimethoprim 400-80 mg tablet 1 tab PO QPM Discharge Orders: Discharge Order (Routine); Ordered 09/20/22 Ordered By: Adam Leon/Other Patient Handouts: Managing Type 2 Diabetes Admission Data Admit Date/Time: 09/17/22 03:44 Attending Provider: Adam Bhatia Admit Provider: Jason Collier Primary Care Provider: Corby Arzola Other Interventions: Discharge Summary Assessment (RN) Last Done: 09/20/22 14:37 Coding Level of Care Code D/C DAY MANAGEMENT >30 MINS Diagnoses Sepsis A41.9 UTI (urinary tract infection) N39.0 AISHWARYA (acute kidney injury) N17.9 (HFpEF) heart failure with preserved ejection fraction I50.30 Type 2 diabetes mellitus E11.9 Hypothyroidism E03.9 Hypothyroidism type: unspecified Rheumatoid arthritis M06.9 Rheumatoid arthritis location: multiple sites Rheumatoid factor presence: unspecified presence Stage 3 chronic kidney disease N18.30 Hypertension I10 Anemia of chronic disease D63.8 Thoracic compression fracture S22.000A
== END 2022-09-20 16:10 | disposition home or self-care (01) | DRG 872 ==
LOC: ED 19:21 → 3N 09-17 03:44 → SUATTDRO 09-17 03:44 → 3N 09-17 05:01

== ENCOUNTER 2022-11-07 09:57 | Inpatient (IN) ==
--- NOTE | 2022-11-07 10:40 | Emergency Department Note ---
Impression & Plan Atrial fibrillation with rapid ventricular response, Dehydration, AISHWARYA (acute kidney injury), Weakness, Coronavirus infection ED Provider Note NAME: MAGY LILLY AGE: 67 SEX: F : 1955 ARRIVES VIA: Ambulance INFORMANT: Patient, ED PROVIDER(S): Enrique Bolton MD CHIEF COMPLAINT: Weakness, body aches MEDICAL DECISION MAKING: Patient did present with weakness and body aches. Blood works obtained the patient was ordered 2 L of IV fluids. Urinalysis also obtained along with viral panel. Patient's EKG did show the patient was in A. fib and the patient does not have prior history of this. I do think that this is somewhat secondary to volume depletion and the patient was continued on the IV fluids with the patient was ordered a one-time dose of Lopressor. Patient was ordered blood cultures as well as a dose of Rocephin given the patient's prior history of urosepsis per review of the chart from last September. Patient has no abdominal pain. I did speak with the on-call hospitalist service and the patient was admitted to the medicine service by Dr. Keane. Dr. Keane did want to defer any heparin at this time. The patient's white count was 12.5 the patient had mild anemia hemoglobin 11.8 with a normal platelet count. Kidney function was slightly worse compared to prior with a current creatinine 2.3 and the patient's baseline has been around 161 8. Patient does have mild elevation in troponin but this may be demand related as the patient has no chest pains or shortness of breath. The patient was positive for coronavirus [facility] 1. Chest x-ray is clear. Initial lactate of 3.3. The patient had been ordered the IV fluids. Urinalysis does not show obvious infection as the patient has whites with numerous epithelial cells no evidence of bacteria or nitrites but given the patient's mild leukocytosis as well as tachycardia the patient had been ordered the Rocephin. Critical Care: I have personally spent 35 minutes of critical care time in direct management of this patient. This includes bedside care, interpretation of diagnostic studies, and testing, discussion with consultants, patient, and family members, and other require inpatient management activities. This 35 minutes is in excess of all separately billable procedures. Prior /Outside records reviewed: Did review the patient's discharge summary from September 27, [address] Bhatia. Differential diagnosis: Infection, dehydration, metabolic abnormality, hypo/hyperglycemia, electrolyte disturbance, anemia, hypoxia, cardiac sources, intracerebral event, toxicologic, neurologic, as well as other pathologies. Diagnostics, as interpreted by me: ECG: Sarthak tamayo with RVR, rate 140, normal QRS normal axis no ST elevations. A. fib has replaced sinus from comparison EKG September 2022 Cardiac monitoring: An order was placed for continuous cardiac monitoring. The monitor shows a rate of 122 with irregularly irregular and tachycardic rhythm. Patient was placed on pulse oximetry Medical decision rules: None Imaging studies: See below HPI: Patient presents due to concern for weakness and fatigue. The patient s tates that she initially began having symptoms on Friday and states that she seemed to improve Friday but worsened on Friday. The patient does have some bilateral lower extremity aches with associated nausea and vomiting. This has been intermittent at home but the patient does feel weak and fatigued. Patient states that she does have some mild cough but this is chronic. Non-smoker. The patient denies any productive sputum. Patient has had the increasing weakness and fatigue and did present here for further evaluation and treatment. The patient denies any known sick contacts or recent travel. Patient did last eat some pizza last evening. The patient does not take anything for symptoms at home PAST MEDICAL HISTORY: See Below PAST SURGICAL HISTORY: See Below SOCIAL HISTORY: See Below HOME MEDICATIONS: See Below ALLERGIES: See Below VITALS: See Below PHYSICAL EXAMINATION: GENERAL: Wearing glasses, fatigued in appearance. EYE EXAM: Normal conjunctiva. PERRL, no anisocoria and EOM's grossly intact w/o pain. NECK: Supple, no nuchal rigidity, no adenopathy, non-tender. No signs of meningismus. FROM of the neck with good chin to chest and neck extension. No stridor. LUNGS: Clear to auscultation. Normal chest wall mechanics. HEART: Irregular irregular and tachycardic, no MRG. ABDOMEN: Abdomen soft, non-tender, normo-active bowel sounds, no masses, no rebound or guarding. BACK: No CVA TTP. SKIN: No rashes and no bruising. UPPER EXTREMITIES: Upper extremities are grossly normal. LOWER EXTREMITIES: Grossly normal, no edema. NEURO EXAM: A&O x3, cranial nerves II-XII grossly intact, normal speech, moves all 4 extremities. Past Med/Surg History Medical History (HFpEF) heart failure with preserved ejection fraction AISHWARYA (acute kidney injury) Anemia of chronic disease Bilateral leg edema Chronic anemia Colitis Diabetes mellitus type II, controlled GERD (gastroesophageal reflux disease) History of campylobacteriosis 04/2019 ([facility]) s/p antibiotics treatment History of MRSA infection lumbar surgical incision s/p vanco/ceftriaxone/bactrim per 04/2019 [facility] discharge summary Hyperlipidemia Hypertension Hypertension Hypothyroidism Immunosuppression due to drug therapy Lower GI bleed Lumbar radiculopathy Nonhealing surgical wound Recurrent UTI Rheumatoid arthritis Sepsis Spinal stenosis Stage 3 chronic kidney disease Tachycardia Type 2 diabetes mellitus Surgical History History of back surgery History of x2 History of hysterectomy total History of total left knee replacement Hx of tonsillectomy Status post laminectomy with spinal fusion L2-L5 laminectomy/fusion: 12/24/18: Grade view 1, MAC#3, ETT 7.0 Family History Father Diabetes Lung cancer Cancer Hypertension Mother Diabetes Brain tumor Cancer Hypertension Malignant neoplasm of brain Aunt Breast cancer Denies family history of Ovarian cancer Prostate cancer Myocardial infarction Colorectal cancer Social History Smoking Status: Never smoker Second Hand Exposure: No; Hx Alcohol Use: Yes Alcohol type: wine Alcohol Intake Frequency: 2-4 x/Month Hx Substance Use: No Preferred Language: Turkish Communication Ability: Effective Visual Impairment: Limited Hearing Ability: Normal Radiosonde Specialist Required: No Beliefs That Will Affect Care: None marital status: Current Living Situation: Spouse Current Living Situation Comment: 1 level home current occupational status: retired How many Children do You have: 2 Other Information That Helps Us Care for You: No 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 Feels Safe at Home: Yes Safety Concerns: Feels Safe At This Time Childhood Exposure to Second-Hand Smoke: Yes caffeine: Yes Dental Care, Regularly: Yes Physical Activity Frequency: 5-6 Times per Week Physical Activity Frequency Comment: gym Seatbelt Use: always Sunscreen Use: Yes Do you think of yourself as: straight/heterosexual Assistive Devices: Cane and Glasses Allergies Allergies Allergy/AdvReac Type Severity Reaction Status Date / Time tetracycline Allergy Severe RASH ON Verified 11/07/22 11:48 FACE Xjhcjjq-[id number]-VcT Reductase AdvReac Intermediate LE edema Verified 11/07/22 11:48 Inhibitor [Qprvxhn-Gur-Khj Reductase Inhibitor] oxycodone AdvReac Drowsy Verified 11/07/22 11:48 Home Meds Home Medications Medication Instructions Recorded Confirmed cholecalciferol (vitamin D3) 25 1,000 unit PO QAM 10/26/18 11/07/22 mcg (1,000 unit) capsule (Vitamin D3) magnesium 250 mg tablet 250 mg PO QAM 10/26/18 11/07/22 acetaminophen 500 mg tablet 1,000 mg PO Q6H PRN Pain 12/24/18 11/07/22 (Tylenol Extra Strength) cyclobenzaprine 10 mg tablet 10 mg PO HS 04/21/21 11/07/22 prednisone 5 mg tablet 5 mg PO QPM 04/21/21 11/07/22 aspirin 81 mg tablet,delayed 81 mg PO QAM 09/17/22 11/07/22 release lisinopril 40 mg tablet 40 mg PO QAM 09/30/22 11/07/22 nitrofurantoin 100 mg PO BID 11/07/22 11/07/22 monohydrate/macrocrystals 100 mg capsule Previous Rx's Medication Instructions Recorded albuterol sulfate 90 mcg/actuation 2 puff inhalation QID PRN 04/02/22 aerosol inhaler (Ventolin HFA) shortness of breath or wheezing #8.5 grams levothyroxine 100 mcg tablet 100 mcg PO QAM #90 tabs 09/16/22 L.acidop,casei,lactis,rham-B.lact,reyes 2 cap PO DAILY #60 caps 09/20/22 625 mg (10 billion cell) capsule (Advanced Probiotic) furosemide 20 mg tablet (Lasix) 20 mg PO DAILY PRN edema of legs 09/20/22 #14 tabs gabapentin 100 mg capsule 100 mg PO HS #1 cap 09/20/22 metoprolol succinate 50 mg 125 mg PO UD #1 tab 09/20/22 tablet,extended release 24 hr omeprazole 40 mg capsule,delayed See Rx Instructions .Route 10/24/22 release .COMPLEX #90 caps Results & Data (ED) Vital Signs Vital Signs - 24 hr 11/07/22 10:09 11/07/22 10:33 11/07/22 10:24 Temperature 36.8 C Temperature Source Oral Pulse Rate 143 H 140 H Pulse Rate from SpO2 Sensor Respiratory Rate 18 18 Respiratory Effort / Characteristics Non-Labored Spontaneous Respiratory Depth Normal Respiratory Pattern Regular Blood Pressure 157/64 H Blood Pressure Mean 95 Pulse Oximetry 98 80 L Oxygen Delivery Method Room Air Room Air Oxygen Flow Rate 96 Sepsis Recent Fever Within 48 Hours No Sepsis New/Unexplained Change in Mental Status No Sepsis Action Taken by Nursing No Action Required 11/07/22 10:30 11/07/22 11:07 11/07/22 11:07 Temperature Temperature Source Pulse Rate 133 H 134 H Pulse Rate from SpO2 Sensor Respiratory Rate 17 16 Respiratory Effort / Characteristics Respiratory Depth Respiratory Pattern Blood Pressure 124/95 126/71 Blood Pressure Mean 104 89 Pulse Oximetry Oxygen Delivery Method Oxygen Flow Rate Sepsis Recent Fever Within 48 Hours Sepsis New/Unexplained Change in Mental Status Sepsis Action Taken by Nursing 11/07/22 12:00 11/07/22 13:23 11/07/22 12:27 Temperature Temperature Source Pulse Rate 127 H 132 H Pulse Rate from SpO2 Sensor 114 H Respiratory Rate 16 Respiratory Effort / Characteristics Respiratory Depth Respiratory Pattern Blood Pressure 128/76 131/101 H 128/76 Blood Pressure Mean 93 93 Pulse Oximetry 93 Oxygen Delivery Method Oxygen Flow Rate Sepsis Recent Fever Within 48 Hours Sepsis New/Unexplained Change in Mental Status Sepsis Action Taken by Nursing 11/07/22 12:30 11/07/22 13:00 11/07/22 13:24 Temperature Temperature Source Pulse Rate 125 H 128 H Pulse Rate from SpO2 Sensor 117 H 127 H Respiratory Rate 13 21 Respiratory Effort / Characteristics Respiratory Depth Respiratory Pattern Blood Pressure 131/101 H Blood Pressure Mean 111 Pulse Oximetry 93 96 Oxygen Delivery Method Oxygen Flow Rate Sepsis Recent Fever Within 48 Hours Sepsis New/Unexplained Change in Mental Status Sepsis Action Taken by Nursing 11/07/22 13:24 11/07/22 13:30 11/07/22 14:00 Temperature Temperature Source Pulse Rate 126 H 129 H 126 H Pulse Rate from SpO2 Sensor 124 H 110 H Respiratory Rate 19 17 16 Respiratory Effort / Characteristics Respiratory Depth Respiratory Pattern Blood Pressure Blood Pressure Mean Pulse Oximetry 86 L 94 Oxygen Delivery Method Oxygen Flow Rate Sepsis Recent Fever Within 48 Hours Sepsis New/Unexplained Change in Mental Status Sepsis Action Taken by Jail Medications Current Medication List: was personally reviewed by me Laboratory Data Attestation: I reviewed the patient's lab results. 11/08/22 07:48 11/08/22 07:58 Lab Results 11/07/22 11/07/22 11/07/22 Range/Units 11:20 11:29 11:29 WBC 12.55 H (4.8-10.8) K/ul RBC 4.32 (4.20-5.40) M/uL Hgb 11.8 L (12.0-16.0) g/dl Hct 38.6 (37.0-47.0) % MCV 89.4 (80.0-100.0) fL MCH 27.3 (25.0-34.0) pg MCHC 30.6 L (32.0-36.0) g/dL RDW Std Deviation 51.2 H (36.4-46.3) fL RDW Coeff of [place] 15.7 H (11.5-14.5) % Plt Count 217 (130-400) K/uL MPV 11.2 (9.4-12.4) fL Immature Gran % (Auto) 2.1 % Neut % (Auto) 80.3 % Lymph % (Auto) 5.3 % Crane % (Auto) 5.2 % Eos % (Auto) 6.5 % Baso % (Auto) 0.6 % Neut # (Auto) 10.09 H (1.40-6.50) K/uL Lymph # (Auto) 0.66 L (1.2-3.4) K/uL Crane # (Auto) 0.65 H (0.11-0.59) K/uL Eos # (Auto) 0.81 H (0-0.50) K/uL Baso # (Auto) 0.08 (0-0.2) K/uL Immature Gran # (Auto) 0.26 H (0.01-0.20) K/uL Sodium 136 (136-145) mmol/L Potassium 4.5 (3.5-5.1) mmol/L Chloride 104 (98-107) mmol/L Carbon Dioxide 21 (21-32) mmol/L Anion Gap 11 (3-11) BUN 53 H (6-23) mg/dl Creatinine 2.33 H (0.6-1.2) mg/dl Est Cr Clr Drug Dosing 25.2 ml/min Est GFR ( Amer) 24.3 ml/min Est GFR (Non-Af Amer) 20.9 ml/min BUN/Creatinine Ratio 22.7 H (10-20) Glucose 364 H* (70-99(Fasting)) mg/dl Lactate (0.4-2.0) mmol/L Calcium 9.4 (8.5-10.1) mg/dl Magnesium 2.0 (1.7-2.4) mg/dl Total Bilirubin 0.4 (0.2-1.0) mg/dl AST 8 L (13-39) U/L ALT 29 (7-52) U/L Alkaline Phosphatase 113 H (34-104) U/L Troponin I High Sens 24.4 H (0-14) pg/ml Total Protein 6.2 (6.0-8.3) gm/dl Albumin 3.2 L (3.4-5.0) gm/dl Globulin 3.0 (2.5-4.0) gm/dl Albumin/Globulin Ratio 1.1 (0.9-2) TSH (0.300-4.500) uIu/ml Free T4 (0.61-1.60) ng/dl Urine Color Urine Appearance (Clear) Urine pH (4.5-7.5) Ur Specific [place] (1.000-1.030) Urine Protein (Negative) Urine Glucose (UA) (Negative) Urine Ketones (Negative) Urine Blood (Negative) Urine Nitrite (Negative) Urine Bilirubin (Negative) Urine Urobilinogen (Negative) Ur Leukocyte Esterase (Negative) Urine WBC (Auto) (0-5) /hpf Urine RBC (Auto) (0-4) /hpf U Hyaline Cast (Auto) (0-5) /lpf U Epithel Cells (Auto) (0-5) /lpf Urine Bacteria (Auto) (Negative) Adenovirus (PCR) Not Detected (NotDetected) B. pertussis DNA (PCR) Not Detected (NotDetected) B.parapertussis DNA PCR Not Detected (NotDetected) C. pneumoniae DNA (PCR) Not Detected (NotDetected) Coronavirus OC43 (PCR) Not Detected (NotDetected) Coronavirus HKU1 (PCR) DETECTED A* (NotDetected) Coronavirus 229E (PCR) Not Detected (NotDetected) SARS-CoV-2 (PCR) Not Detected (NotDetected) Coronavirus NL63 (PCR) Not Detected (NotDetected) Human Metapneumovir PCR Not Detected (NotDetected) Influenza Type A (PCR) Not Detected (NotDetected) Influenza Type B (PCR) Not Detected (NotDetected) M. pneumoniae (PCR) Not Detected (NotDetected) Parainfluenza 1 (PCR) Not Detected (NotDetected) Parainfluenza 2 (PCR) Not Detected (NotDetected) Parainfluenza 3 (PCR) Not Detected (NotDetected) Parainfluenza 4 (PCR) Not Detected (NotDetected) RSV (PCR) Not Detected (NotDetected) Entero/Rhino (PCR) Not Detected (NotDetected) 11/07/22 11/07/22 11/07/22 Range/Units 11:29 11:29 11:48 WBC (4.8-10.8) K/ul RBC (4.20-5.40) M/uL Hgb (12.0-16.0) g/dl Hct (37.0-47.0) % MCV (80.0-100.0) fL MCH (25.0-34.0) pg MCHC (32.0-36.0) g/dL RDW Std Deviation (36.4-46.3) fL RDW Coeff of [place]aya (11.5-14.5) % Plt Count (130-400) K/uL MPV (9.4-12.4) fL Immature Gran % (Auto) % Neut % (Auto) % Lymph % (Auto) % Crane % (Auto) % Eos % (Auto) % Baso % (Auto) % Neut # (Auto) (1.40-6.50) K/uL Lymph # (Auto) (1.2-3.4) K/uL Crane # (Auto) (0.11-0.59) K/uL Eos # (Auto) (0-0.50) K/uL Baso # (Auto) (0-0.2) K/uL Immature Gran # (Auto) (0.01-0.20) K/uL Sodium (136-145) mmol/L Potassium (3.5-5.1) mmol/L Chloride (98-107) mmol/L Carbon Dioxide (21-32) mmol/L Anion Gap (3-11) BUN (6-23) mg/dl Creatinine (0.6-1.2) mg/dl Est Cr Clr Drug Dosing ml/min Est GFR ( Amer) ml/min Est GFR (Non-Af Amer) ml/min BUN/Creatinine Ratio (10-20) Glucose (70-99(Fasting)) mg/dl Lactate 3.3 H* (0.4-2.0) mmol/L Calcium (8.5-10.1) mg/dl Magnesium (1.7-2.4) mg/dl Total Bilirubin (0.2-1.0) mg/dl AST (13-39) U/L ALT (7-52) U/L Alkaline Phosphatase (34-104) U/L Troponin I High Sens (0-14) pg/ml Total Protein (6.0-8.3) gm/dl Albumin (3.4-5.0) gm/dl Globulin (2.5-4.0) gm/dl Albumin/Globulin Ratio (0.9-2) TSH 7.104 H (0.300-4.500) uIu/ml Free T4 0.72 (0.61-1.60) ng/dl Urine Color Yellow Urine Appearance Cloudy A (Clear) Urine pH 5.0 (4.5-7.5) Ur Specific [place] 1.014 (1.000-1.030) Urine Protein 1+ H (Negative) Urine Glucose (UA) Trace H (Negative) Urine Ketones Negative (Negative) Urine Blood Negative (Negative) Urine Nitrite Negative (Negative) Urine Bilirubin Negative (Negative) Urine Urobilinogen Negative (Negative) Ur Leukocyte Esterase Trace H (Negative) Urine WBC (Auto) 5-10 H (0-5) /hpf Urine RBC (Auto) 5-10 H (0-4) /hpf U Hyaline Cast (Auto) 1-5 (0-5) /lpf U Epithel Cells (Auto) >30 H (0-5) /lpf Urine Bacteria (Auto) Negative (Negative) Adenovirus (PCR) (NotDetected) B. pertussis DNA (PCR) (NotDetected) B.parapertussis DNA PCR (NotDetected) C. pneumoniae DNA (PCR) (NotDetected) Coronavirus OC43 (PCR) (NotDetected) Coronavirus HKU1 (PCR) (NotDetected) Coronavirus 229E (PCR) (NotDetected) SARS-CoV-2 (PCR) (NotDetected) Coronavirus NL63 (PCR) (NotDetected) Human Metapneumovir PCR (NotDetected) Influenza Type A (PCR) (NotDetected) Influenza Type B (PCR) (NotDetected) M. pneumoniae (PCR) (NotDetected) Parainfluenza 1 (PCR) (NotDetected) Parainfluenza 2 (PCR) (NotDetected) Parainfluenza 3 (PCR) (NotDetected) Parainfluenza 4 (PCR) (NotDetected) RSV (PCR) (NotDetected) Entero/Rhino (PCR) (NotDetected) Administered Medications Acetaminophen (Acetaminophen 325 Mg Tab) 650 mg PO Q4H PRN PRN Reason: Pain or Fever Stop: 12/07/22 17:13 Last Admin: 11/08/22 01:00 Dose: 650 mg Documented By: Admin: 11/07/22 18:34 Dose: 650 mg Documented By: AM Cyclobenzaprine HCl (Cyclobenzaprine Hcl 10 Mg Tab) 10 mg PO HS [facility] Stop: 12/07/22 20:59 Last Admin: 11/07/22 22:00 Dose: 10 mg Documented By: SHANI Heparin Sodium/Dextrose (Heparin Sodium/Dextrose) 25,000 units in 500 mls @ 27 mls/hr IV .[id number] [facility]; Protocol Stop: 12/07/22 16:14 Last Titration: 11/08/22 07:20 Dose: 1,350 units/hr, 27 mls/hr Documented By: FARZANA Co-signed By: SHANI Titration: 11/08/22 01:55 Dose: 1,350 units/hr, 27 mls/hr Documented By: SHANI Co-signed By: NANCY Admin: 11/07/22 18:32 Dose: 1,200 units/hr, 24 mls/hr Documented By: AM Co-signed By: THIERRY Diltiazem HCl 125 mg/ Dextrose 125 mls @ 5 mls/hr IV .Q24H [facility]; Protocol Stop: 12/07/22 18:29 Last Titration: 11/08/22 07:20 Dose: 5 mg/hr, 5 mls/hr Documented By: FARZANA Co-signed By: SHANI Admin: 11/07/22 19:24 Dose: 5 mg/hr, 5 mls/hr Documented By: AM Co-signed By: SHANI Insulin Aspart (Insulin Aspart Per Unit) 0 units SC ACHS [facility] Stop: 12/07/22 17:13 Last Admin: 11/07/22 21:58 Dose: 1 units Documented By: SHANI Co-signed By: SHIN Admin: 11/07/22 19:30 Dose: 3 units Documented By: AM Co-signed By: SHANI Levothyroxine Sodium (Levothyroxine Sodium 100 Mcg Tablet) 100 mcg PO DAILYBB [facility] Stop: 12/08/22 06:29 Last Admin: 11/08/22 06:12 Dose: 100 mcg Documented By: SHANI Metoprolol Succinate (Metoprolol Succ 50mg Ext Rel Tab) 100 mg PO BID [facility] Stop: 12/07/22 20:59 Last Admin: 11/07/22 21:59 Dose: 100 mg Documented By: SHANI Prednisone (Prednisone 5 Mg Tab) 5 mg PO QPM [facility] Stop: 12/07/22 20:59 Last Admin: 11/07/22 21:59 Dose: 5 mg Documented By: SHANI Discontinued Medications Aspirin (Aspirin 81 Mg Chew) 324 mg PO NOW STA Stop: 11/07/22 13:45 Last Admin: 11/07/22 14:48 Dose: 324 mg Documented By: JI Diltiazem HCl (Diltiazem Hcl 5 Mg/Ml 5 Ml Vial) 20 mg IV NOW STA Stop: 11/07/22 18:28 Last Admin: 11/07/22 19:24 Dose: 20 mg Documented By: AM Co-signed By: SHANI Heparin Sodium (Porcine) (Heparin Sod (Porcine) 1000 Unit/Ml) 3,000 units IV NOW ONE Stop: 11/08/22 02:01 Last Admin: 11/08/22 02:06 Dose: 3,000 units Documented By: SHANI Co-signed By: AZAEL Heparin Sodium/Dextrose (Heparin Iv Adult Wt-Based Standard *No* Bolus Protocol) 1 each IV Q15M ONE; Protocol Stop: 11/07/22 15:57 Last Admin: 11/07/22 18:33 Dose: 1 each Documented By: AM Sodium Chloride (Nss 1000ml) 2,000 mls @ 999 mls/hr IV .Q2H1M [facility] Stop: 11/07/22 13:00 Last Infusion: 11/07/22 15:44 Dose: 0 mls/hr Documented By: Admin: 11/07/22 11:11 Dose: 999 mls/hr Documented By: JI Acetaminophen (Ofirmev) 1,000 mg in 100 mls @ 400 mls/hr IV NOW STA Stop: 11/07/22 11:09 Last Infusion: 11/07/22 11:37 Dose: 0 mls/hr Documented By: Admin: 11/07/22 11:11 Dose: 400 mls/hr Documented By: JI Ceftriaxone Sodium (Rocephin) 2,000 mg in 70 mls @ 140 mls/hr IV NOW STA Stop: 11/07/22 13:25 Last Infusion: 11/07/22 15:44 Dose: 0 mls/hr Documented By: Admin: 11/07/22 13:22 Dose: 140 mls/hr Documented By: JI Metoprolol Succinate (Metoprolol Succ 25mg Ext Rel Tab) 75 mg PO NOW STA Stop: 11/07/22 13:42 Last Admin: 11/07/22 14:48 Dose: 75 mg Documented By: JI Metoprolol Tartrate (Metoprolol Tartrate 1 Mg/Ml Vial) 5 mg IV NOW STA Stop: 11/07/22 12:57 Last Admin: 11/07/22 13:23 Dose: 5 mg Documented By: JI Ondansetron HCl (Ondansetron Inj 2 Mg/Ml 2 Ml Vial) 4 mg IV NOW STA Stop: 11/07/22 10:56 Last Admin: 11/07/22 11:11 Dose: 4 mg Documented By: JI Imaging Data Radiologist's Impression: Chest X-Ray 11/07/22 10:55 XR chest 1V portable CLINICAL HISTORY: weakness TECHNIQUE: Single frontal radiograph of the chest was obtained. Comparison: Comparison is made to chest radiograph 09/17/2022 FINDINGS: No lines and tubes are seen. Cardiomegaly is noted. The lungs are clear. No evidence of pleural effusion or pneumothorax. IMPRESSION: No acute chest disease. ACT 112: Negative or not required by law. Electronically signed by: Oli Chinchilla M.D. 11/07/2022 11:[address] 11/07/22 13:37 CT head/brain wo con CLINICAL HISTORY: 67 years-old Female with new onset vertigo. Acute vertigo TECHNIQUE: Multiple axial CT images of the head were obtained without contrast. A dose lowering technique was utilized adhering to the principles of ALARA. CT DOSE: 767.83 mGy.cm COMPARISON: Head CT 04/22/2021 FINDINGS: No acute intracranial hemorrhage, midline shift, intracranial mass, hydrocephalus, territorial ischemia or abnormal extra-axial collection. Involutional changes with chronic microvascular ischemic disease. 6 mm hypodense focus of the left lentiform nucleus on image 14 series 2, new from prior. Cerebral vascular calcifications. Mildly degraded exam. The calvarium is intact. Mastoid air cells are clear. Moderate mucoperiosteal thickening of the right maxillary sinus. IMPRESSION: 1. No acute intracranial hemorrhage, midline shift or acute territorial infarct. 2. Involutional changes with chronic microvascular ischemic disease. 3. Subcentimeter age-indeterminate lacunar infarct of the left lentiform nucleus is favored to be chronic however is new from the 04/22/2021 exam. ACT 112: Negative or not required by law. The above report was generated using voice recognition software. It may contain grammatical, syntax or spelling errors. Electronically signed by: Darwin Cohen M.D. 11/07/2022 2:49 PM Discharge Plan Visit Data Chief Complaint: Weakness Stated Complaint: FATIGUE, WEAKNESS ED Provider: Enrique Bolton Discharge Problem: Atrial fibrillation with rapid ventricular response, Dehydration, AISHWARYA (acute kidney injury), Weakness, Coronavirus infection Patient Disposition: Admitted As Inpatient Discharge Instructions Interventions: ED Discharge Assessment Last Done: 11/07/22 15:29
[2022-11-07] MEDS ORDERED: ACETAMINOPHEN 1,000 MG/100 ML VIAL IV STA (10:55)
[2022-11-07] MEDS ORDERED: ONDANSETRON INJ 2 MG/ML 2 ML VIAL IV STA (10:55)
[2022-11-07] MEDS ORDERED: SODIUM CHLORIDE 0.9% 1000ML 2,000 ML IV SCH (11:00)
--- NOTE | 2022-11-07 11:20 | XRay Report ---
XR chest 1V portable CLINICAL HISTORY: weakness TECHNIQUE: Single frontal radiograph of the chest was obtained. Comparison: Comparison is made to chest radiograph 09/17/2022 FINDINGS: No lines and tubes are seen. Cardiomegaly is noted. The lungs are clear. No evidence of pleural effus ion or pneumothorax. IMPRESSION: No acute chest disease. ACT 112: Negative or not required by law. Electronically signed by: Oli Chinchilla M.D. 11/07/2022 11:19 AM
[2022-11-07 12:08] LABS: Albumin Globulin Ratio 1.1 (0.9-2); Albumin Level 3.2 gm/dl (3.4-5.0); BUN Creatinine Ratio 22.7 (10-20); Bilirubin,Total 0.4 mg/dl (0.2-1.0); Calcium 9.4 mg/dl (8.5-10.1); Creatinine Clr Calc Pharmacy 25.2 ml/min; Est GFR (African American) 24.3 ml/min; Est GFR (Non-African American) 20.9 ml/min; Potassium 4.5 mmol/L (3.5-5.1); Total Protein 6.2 gm/dl (6.0-8.3)
[2022-11-07 12:16] LABS: Thyroid Stimulating Hormone 7.104 uIu/ml (0.300-4.500)
[2022-11-07 12:34] LABS: Appearance Urine Cloudy (Clear); Bacteria Urine Automated Negative (Negative); Bilirubin Urine Negative (Negative); Blood Urine Negative (Negative); Color Urine Yellow; Epithelial Cell Urine Auto >30 /lpf (0-5); Glucose Urine UA Trace (Negative); Ketones Urine Negative (Negative); Leukocyte Esterase Urine Trace (Negative); Nitrite Urine Negative (Negative); Protein Urine 1+ (Negative); Specific Gravity Urine 1.014 (1.000-1.030); Urobilinogen Urine Negative (Negative)
[2022-11-07 12:44] LABS: Adenovirus PCR Not Detected (NotDetected); Bordetella parapertussis PCR Not Detected (NotDetected); Bordetella pertussis PCR Not Detected (NotDetected); Chlamydia pneumoniae PCR Not Detected (NotDetected); Coronavirus 229E PCR Not Detected (NotDetected); Coronavirus CoV-2 (COVID19)PCR Not Detected (NotDetected); Coronavirus NL63 PCR Not Detected (NotDetected); Coronavirus OC43PCR Not Detected (NotDetected); Human Metapneumovirus PCR Not Detected (NotDetected); Influenza A PCR Not Detected (NotDetected); Influenza B PCR Not Detected (NotDetected); Mycoplasma pneumoniae PCR Not Detected (NotDetected); Parainfluenza Virus 1 PCR Not Detected (NotDetected); Parainfluenza Virus 2 PCR Not Detected (NotDetected); Parainfluenza Virus 3 PCR Not Detected (NotDetected); Parainfluenza Virus 4 PCR Not Detected (NotDetected); Respiratory Syncytial VirusPCR Not Detected (NotDetected); Rhinovirus/Enterovirus PCR Not Detected (NotDetected)
[2022-11-07 12:47] LABS: Basophils # (auto) 0.08 K/uL (0-0.2); Basophils % (auto) 0.6 %; Eosinophils # (auto) 0.81 K/uL (0-0.50); Eosinophils % (auto) 6.5 %; Hematocrit (blood only) 38.6 % (37.0-47.0); Hemoglobin 11.8 g/dl (12.0-16.0); Immature Granulocytes # (auto) 0.26 K/uL (0.01-0.20); Immature Granulocytes % (auto) 2.1 %; Lymphocytes # (auto) 0.66 K/uL (1.2-3.4); Lymphocytes % (auto) 5.3 %; Mean Corpuscular Hemoglobin 27.3 pg (25.0-34.0); Mean Corpuscular Hgb Conc 30.6 g/dL (32.0-36.0); Mean Corpuscular Volume 89.4 fL (80.0-100.0); Mean Platelet Volume 11.2 fL (9.4-12.4); Monocytes # (auto) 0.65 K/uL (0.11-0.59); Monocytes % (auto) 5.2 %; Neutrophils # (auto) 10.09 K/uL (1.40-6.50); Neutrophils % (auto) 80.3 %; Platelet Count 217 K/uL (130-400); RDW Coefficient of Variation 15.7 % (11.5-14.5); RDW Standard Deviation 51.2 fL (36.4-46.3); Red Blood Count 4.32 M/uL (4.20-5.40); White Blood Count 12.55 K/ul (4.8-10.8)
[2022-11-07 12:51] LABS: T4 Free Thyroxine 0.72 ng/dl (0.61-1.60)
[2022-11-07] MEDS ORDERED: METOPROLOL TARTRATE 1 MG/ML VIAL IV STA (12:56)
[2022-11-07] MEDS ORDERED: cefTRIAXone SODIUM 2,000 MG/70 ML BAG IV STA (12:56)
[2022-11-07 13:06] LABS: Coronavirus HKU1 PCR DETECTED (NotDetected)
--- NOTE | 2022-11-07 13:10 | History & Physical Report ---
Date of Service November 07, 2022 Assessment & Plan (1) New onset atrial fibrillation: Plan: TTE TSH 7.104, free T4 0.72. Recommend repeating in 4-6 weeks. Give her usual metoprolol succinate now, will add diltiazem drip if rate still elevated following this Start heparin IV as long as CT head negative (2) Exertional chest pain: Plan: Concerning symptoms of unstable angina vs. rate related demand-ischemia TTE Stat high sensitivity troponin, will serially trend Aspirin 324mg PO Bed rest Consult cardiology (3) Dizziness: Plan: Room spinning sensation with sudden onset in a. fib and associated nausea/dry heaves concerning for vertigo -> stroke - CT head, MRI brain However orthostatic and lightheaded component may just be related to her new onset atrial fibrillation Stop lisinopril in favor for rate controlling medications as above Hold gabapentin in case contributing towards dizziness (4) Diabetes mellitus type II, controlled: Plan: HbA1C 7.6 in September. Not on medication at home. Glucose 364mg/dL on admission. BSG ACHS Novolog: --Goal BSG Range: Low 110 mg/dL, High 140 mg/dL --Correction Factor: 45 mg/dL/unit --Carbohydrate ratio = 15 g/unit --BSGs ACHS if eating, q6h if npo (5) Acute on chronic kidney failure: Plan: Suspect pre-renal given nausea and dry heaving NSS 2L bolus given in ER. Will repeat with AM labs. Cr 2.33 from 1.54 Plan VTE Prophylaxis - deferred pending CT head Diet - heart healthy, T2DM Disposition - observation to PCU Admission and Anticipated Discharge Date Admission Date: November 07, 2022 History of Present Illness Chief Complaint: Generalized weakness Primary Care Provider: Corby Arzola MD Daniela Champagne is a 67 year old female who presents to the ER with dizziness, nausea, chest pain on exertion and shortness of breath. Symptoms started suddenly last Friday (6 days ago) and getting progressively worse. She describes her dizziness as both room spinning sensation but also lightheadedness, worse on standing up and on exertion. These symptoms have been very intermittent, presyncopal after coming out of the shower today and her reported she appeared very weak and pale therefore called EMS who brought her to the ER. She recently had a urine culture positive for pansensitive E. coli October 28. She was prescribed a 10 day course of nitrofurantoin and reports improvement in her suprapubic pain with this. The nausea is not usually a part of her urinary infection symptoms and this feels very different. No abdominal pain or diarrhea. While walking in the emergency room she reports chest pressure and shortness of breath on light exertion. She denies any one sided weakness, change in sensation, facial droop, change in speech, hearing or vision. No prior episodes of vertigo. She ate a cinnamon roll and pizza last night but no food since then. Nausea does not appear to be related to food. In the ER she was noted to be in atrial fibrillation with rapid ventricular rate and was given 5mg metoprolol tartrate IV. She did not take her usual medications this morning. Allergies Allergy/AdvReac Type Severity Reaction Status Date / Time tetracycline Allergy Severe RASH ON Verified 11/07/22 11:48 FACE Otouman-NYW-WzA Reductase AdvReac Intermediate LE edema Verified 11/07/22 11:48 Inhibitor [Crjhtut-Xyb-Pcb Reductase Inhibitor] oxycodone AdvReac Drowsy Verified 11/07/22 11:48 Home Medications Medication Instructions Recorded Confirmed Type cholecalciferol (vitamin D3) 25 1,000 unit PO QAM 10/26/18 11/07/22 History mcg (1,000 unit) capsule (Vitamin D3) magnesium 250 mg tablet 250 mg PO QAM 10/26/18 11/07/22 History acetaminophen 500 mg tablet 1,000 mg PO Q6H PRN Pain 12/24/18 11/07/22 History (Tylenol Extra Strength) cyclobenzaprine 10 mg tablet 10 mg PO HS 04/21/21 11/07/22 History prednisone 5 mg tablet 5 mg PO QPM 04/21/21 11/07/22 History albuterol sulfate 90 mcg/actuation 2 puff inhalation QID PRN 04/02/22 11/07/22 Rx aerosol inhaler (Ventolin HFA) shortness of breath or wheezing #8.5 grams levothyroxine 100 mcg tablet 100 mcg PO QAM #90 tabs 09/16/22 11/07/22 Rx aspirin 81 mg tablet,delayed 81 mg PO QAM 09/17/22 11/07/22 History release L.acidop,casei,lactis,rham-B.lact,reyes 2 cap PO DAILY #60 caps 12/09/22 01/26/23 Rx 625 mg (10 billion cell) capsule (Advanced Probiotic) furosemide 20 mg tablet (Lasix) 20 mg PO DAILY PRN edema of legs 09/20/22 11/07/22 Rx #14 tabs gabapentin 100 mg capsule 100 mg PO HS #1 cap 09/20/22 11/07/22 Rx metoprolol succinate 50 mg 125 mg PO UD #1 tab 09/20/22 11/07/22 Rx tablet,extended release 24 hr lisinopril 40 mg tablet 40 mg PO QAM 09/30/22 11/07/22 History omeprazole 40 mg capsule,delayed See Rx Instructions .Route 10/24/22 11/07/22 Rx release .COMPLEX #90 caps nitrofurantoin 100 mg PO BID 11/07/22 11/07/22 History monohydrate/macrocrystals 100 mg capsule Past Med/Surg History Medical History (HFpEF) heart failure with preserved ejection fraction AISHWARYA (acute kidney injury) Anemia of chronic disease Bilateral leg edema Chronic anemia Colitis Diabetes mellitus type II, controlled GERD (gastroesophageal reflux disease) History of campylobacteriosis 04/2019 ([facility]) s/p antibiotics treatment History of MRSA infection lumbar surgical incision s/p vanco/ceftriaxone/bactrim per 04/2019 [facility] discharge summary Hyperlipidemia Hypertension Hypertension Hypothyroidism Immunosuppression due to drug therapy Lower GI bleed Lumbar radiculopathy Nonhealing surgical wound Recurrent UTI Rheumatoid arthritis Sepsis Spinal stenosis Stage 3 chronic kidney disease Tachycardia Type 2 diabetes mellitus Surgical History History of back surgery History of x2 History of hysterectomy total History of total left knee replacement Hx of tonsillectomy Status post laminectomy with spinal fusion L2-L5 laminectomy/fusion: 12/24/18: Grade view 1, MAC#3, ETT 7.0 Family History Father Diabetes Lung cancer Cancer Hypertension Mother Diabetes Brain tumor Cancer Hypertension Malignant neoplasm of brain Aunt Breast cancer Denies family history of Ovarian cancer Prostate cancer Myocardial infarction Colorectal cancer Social History Smoking Status: Never smoker Second Hand Exposure: No; Hx Alcohol Use: Yes Alcohol type: wine Alcohol Intake Frequency: 2-4 x/Month Hx Substance Use: No Preferred Language: Danish Communication Ability: Effective Visual Impairment: Limited Hearing Ability: Normal Station Installation Supervisor Required: No Beliefs That Will Affect Care: None marital status: Current Living Situation: Spouse Current Living Situation Comment: 1 level home current occupational status: retired How many Children do You have: 2 Other Information That Helps Us Care for You: No 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 Feels Safe at Home: Yes Safety Concerns: Feels Safe At This Time Childhood Exposure to Second-Hand Smoke: Yes caffeine: Yes Dental Care, Regularly: Yes Physical Activity Frequency: 5-6 Times per Week Physical Activity Frequency Comment: gym Seatbelt Use: always Sunscreen Use: Yes Do you think of yourself as: straight/heterosexual Assistive Devices: Cane and Glasses Review of Systems Review of Systems: All systems reviewed & are unremarkable except as noted in HPI & below Physical Exam Constitutional: WD/WN, vitals as above Eyes: PERRL, conjunctivae normal, anicteric sclerae ENMT: external ear and nose normal, oropharynx normal Respiratory: normal respiratory effort, lungs clear to auscultation Cardiovascular: Rate/Rhythm: + tachycardic and + irregularly irregular Extremities: normal capillary refill and + pedal edema (1+ b/l pedal edema); no calf tenderness Gastrointestinal (Abdomen): normal bowel sounds, soft, nontender, no hepat osplenomegaly Musculoskeletal: no cyanosis or clubbing, extremities motor strength 5/5 Skin: no rashes, warm and dry Neurologic: moves all extremities and awake; no focal motor deficits and not confused Speech / Cognition: normal speech Motor/Sensory: no pronator drift Cranial Nerves: PERRL, EOM intact bilaterally, normal facial strength, tongue midline, able to rotate head bilaterally, able to elevate shoulders bilaterally, no nystagmus and symmetric palate elevation Coordination: normal invjdx-jz-olta test Psychiatric: A+Ox3, euthymic affect Genitourinary: no CVA tenderness Results & Data Results & Data ([facility]) Vital Signs (Past 12 Hours) Vital Signs Temp Pulse Resp BP Pulse Ox O2 Del Method O2 Flow Rate 11/07/22 12:00 127 H 16 128/76 93 11/07/22 11:07 126/71 11/07/22 11:07 134 H 16 11/07/22 10:30 133 H 17 124/95 11/07/22 10:24 140 H 18 80 L 11/07/22 10:33 Room Air 96 11/07/22 10:09 36.8 C 143 H 18 157/64 H 98 Room Air Laboratory Results Abnormal lab results 11/07/22 11/07/22 11/07/22 Range/Units 11:20 11:29 11:29 WBC 12.55 H (4.8-10.8) K/ul Hgb 11.8 L (12.0-16.0) g/dl MCHC 30.6 L (32.0-36.0) g/dL RDW Std Deviation 51.2 H (36.4-46.3) fL RDW Coeff of Sumaya 15.7 H (11.5-14.5) % Neut # (Auto) 10.09 H (1.40-6.50) K/uL Lymph # (Auto) 0.66 L (1.2-3.4) K/uL Bath # (Auto) 0.65 H (0.11-0.59) K/uL Eos # (Auto) 0.81 H (0-0.50) K/uL Immature Gran # (Auto) 0.26 H (0.01-0.20) K/uL BUN 53 H (6-23) mg/dl Creatinine 2.33 H (0.6-1.2) mg/dl BUN/Creatinine Ratio 22.7 H (10-20) Glucose 364 H* (70-99(Fasting)) mg/dl Lactate (0.4-2.0) mmol/L AST 8 L (13-39) U/L Alkaline Phosphatase 113 H (34-104) U/L Albumin 3.2 L (3.4-5.0) gm/dl TSH (0.300-4.500) uIu/ml Urine Appearance (Clear) Urine Protein (Negative) Urine Glucose (UA) (Negative) Ur Leukocyte Esterase (Negative) Urine WBC (Auto) (0-5) /hpf Urine RBC (Auto) (0-4) /hpf U Epithel Cells (Auto) (0-5) /lpf Coronavirus HKU1 (PCR) DETECTED A* (NotDetected) 11/07/22 11/07/22 11/07/22 Range/Units 11:29 11:29 11:48 WBC (4.8-10.8) K/ul Hgb (12.0-16.0) g/dl MCHC (32.0-36.0) g/dL RDW Std Deviation (36.4-46.3) fL RDW Coeff of [place]aya (11.5-14.5) % Neut # (Auto) (1.40-6.50) K/uL Lymph # (Auto) (1.2-3.4) K/uL Bath # (Auto) (0.11-0.59) K/uL Eos # (Auto) (0-0.50) K/uL Immature Gran # (Auto) (0.01-0.20) K/uL BUN (6-23) mg/dl Creatinine (0.6-1.2) mg/dl BUN/Creatinine Ratio (10-20) Glucose (70-99(Fasting)) mg/dl Lactate 3.3 H* (0.4-2.0) mmol/L AST (13-39) U/L Alkaline Phosphatase (34-104) U/L Albumin (3.4-5.0) gm/dl TSH 7.104 H (0.300-4.500) uIu/ml Urine Appearance Cloudy A (Clear) Urine Protein 1+ H (Negative) Urine Glucose (UA) Trace H (Negative) Ur Leukocyte Esterase Trace H (Negative) Urine WBC (Auto) 5-10 H (0-5) /hpf Urine RBC (Auto) 5-10 H (0-4) /hpf U Epithel Cells (Auto) >30 H (0-5) /lpf Coronavirus HKU1 (PCR) (NotDetected) Diagnostic Findings XR chest 1V portable CLINICAL HISTORY: weakness TECHNIQUE: Single frontal radiograph of the chest was obtained. Comparison: Comparison is made to chest radiograph 09/17/2022 FINDINGS: No lines and tubes are seen. Cardiomegaly is noted. The lungs are clear. No evidence of pleural effusion or pneumothorax. IMPRESSION: No acute chest disease. Medications Administered ER medications given: NSS 2L bolus Ondansetron 4 mg IV Acetaminophen 1 g IV Metoprolol 5 mg IV Ceftriaxone 2 g IV ECG Indication: tachycardia Rate (beats per minute): 140 Rhythm: atrial fibrillation Findings: no acute ischemic change Comparison ECG Date: from (September 16, 2022) Change: the following changes noted (Atrial fibrillation replaced sinus rhythm, nonspecific T wave abnormality now evident in lateral leads, ST no longer elevated in lateral leads) Code Status & VTE Plan Code Status Full VTE Prophylaxis Plan VTE Prophylaxis will be ordered: Yes PG Care Time/CCT Total # of Minutes Spent Total Time Spent with Patient: Total time spent is greater than 50% in coordination of care (as documented) at patient's floor/unit and/or counseling patient: Coding Level of Care Code 84760 INT INP/OBS CARE 375MIN Diagnoses New onset atrial fibrillation I48.91 Exertional chest pain R07.9 Dizziness R42 Diabetes mellitus type II, controlled E11.9; Z79.4 Diabetes mellitus complication status: without complication Diabetes mellitus snf insulin use: with middle or intermediate school principal use Acute on chronic kidney failure N17.9; N18.9 (1) Diabetes mellitus type II, controlled Diabetes mellitus complication status: without complication Diabetes mellitus middle or intermediate school principal insulin use: with middle or intermediate school principal use Qualified Code(s): E11.9 - Type 2 diabetes mellitus without complications; Z79.4 - oysterman (current) use of insulin
[2022-11-07] MEDS ORDERED: METOPROLOL SUCC 25MG EXT REL TAB PO STA (13:41)
[2022-11-07] MEDS ORDERED: ASPIRIN 81 MG CHEW PO STA (13:44)
--- NOTE | 2022-11-07 13:58 | Electrocardiogram Report ---
Test Reason : Blood Pressure : / mmHG Vent. Rate : 140 BPM Atrial Rate : 141 BPM P-R Int : 000 ms QRS Dur : 074 ms QT Int : 280 ms P-R-T Axes : 000 020 071 degrees QTc Int : 427 ms Atrial fibrillation with rapid ventricular response Abnormal ECG When compared with ECG of 16-SEP-2022 20:57, Atrial fibrillation has replaced Sinus rhythm Vent. rate has increased BY [address] no longer elevated in Lateral leads Nonspecific T wave abnormality now evident in Lateral leads Confirmed by Gold Davis ([id number]) on 11/07/2022 1:58:08 PM Referred By: REFERRED SELF Confirmed By:Harry Davis
--- NOTE | 2022-11-07 14:50 | CT Scan Report ---
CT head/brain wo con CLINICAL HISTORY: 67 years-old Female with new onset vertigo. Acute vertigo TECHNIQUE: Multiple axial CT images of the head were obtained without contrast. A dose lowering tech nique was utilized adhering to the principles of ALARA. CT DOSE: 767.83 mGy.cm COMPARISON: Head CT 04/22/2021 FINDINGS: No acute intracranial hemorrhage, midline shift, intracranial mass, hydrocephalus, territorial ischem ia or abnormal extra-axial collection. Involutional changes with chronic microvascular ischemic disea se. 6 mm hypodense focus of the left lentiform nucleus on image 14 series 2, new from prior. Cerebral vascular calcifications. Mildly degraded exam. The calvarium is intact. Mastoid air cells are clear. Moderate mucoperiosteal thickening of the righ t maxillary sinus. IMPRESSION: 1. No acute intracranial hemorrhage, midline shift or acute territorial infarct. 2. Involutional changes with chronic microvascular ischemic disease. 3. Subcentimeter age-indeterminate lacunar infarct of the left lentiform nucleus is favored to be chr onic however is new from the 04/22/2021 exam. ACT 112: Negative or not required by law. The above report was generated using voice recognition software. It may contain grammatical, syntax o r spelling errors. Electronically signed by: Darwin Cohen M.D. 11/07/2022 2:49 PM
--- NOTE | 2022-11-07 15:09 | XCELERA ---
[id number]
[2022-11-07 15:36] LABS: Troponin I High Sensitivity 24.4 pg/ml (0-14)
[2022-11-07 15:55] LABS: Partial Thromboplastin Ratio 0.9; Partial Thromboplastin Time 23.5 Seconds (21.0-31.0); Prothrombin Time 10.4 Seconds (9.0-12.0)
[2022-11-07] MEDS ORDERED: Heparin IV Adult Wt-Based Standard *NO* Bolus Protocol IV ONE (15:56)
[2022-11-07] MEDS ORDERED: Heparin IV Adult Wt-Based Standard *NO* Bolus Protocol IV SCH (16:30)
--- NOTE | 2022-11-07 16:39 | Magnetic Resonance Report ---
MR brain wo con HISTORY: 67 years-old Female new onset vertigo ?CVA acute strokelike symptoms COMPARISON: Head CT of same day, brain MRI 04/21/2021 TECHNIQUE: Multiplanar multisequence MRI of the brain was obtained without the use of IV contrast. FINDINGS: Midline structures are unremarkable. Partially empty sella. No acute intracranial hemorrhage, midline shift, abnormal extra-axial collection, hydrocephalus or intracranial mass. No pathologic blooming a rtifact on the T2 star series. Involutional changes with mild T2/FLAIR hyperintense foci noted throug hout the white matter. Chronic subcentimeter lacunar infarcts of the left lentiform nucleus and left cerebellum. Cerebral venous sinuses and major arterial flow voids appear patent. Mastoid air cells are clear. Mil d mucosal thickening of the paranasal sinuses. Skull, orbits and soft tissues are unremarkable. IMPRESSION: 1. No acute intracranial abnormality. No acute or subacute infarct. 2. Involutional changes with mild chronic microvascular ischemic disease. 3. Subcentimeter chronic lacunar infarcts of the left basal ganglia and cerebellum. ACT 112: Negative or not required by law. The above report was generated using voice recognition software. It may contain grammatical, syntax o r spelling errors. Electronically signed by: Darwin Cohen M.D. 11/07/2022 4:36 PM
[2022-11-07] MEDS ORDERED: GLUCAGON FOR INJ 1 MG VIAL SQ PRN (17:14)
[2022-11-07] MEDS ORDERED: METOPROLOL SUCC 25MG EXT REL TAB PO SCH (17:14)
[2022-11-07] MEDS ORDERED: CARBOHYDRATES FOR HYPOGLYCEMIA PO PRN (17:14)
[2022-11-07] MEDS ORDERED: GLUCOSE 10 TAB/TUBE PO PRN (17:14)
[2022-11-07] MEDS ORDERED: DEXTROSE 50% 50 ML SYRINGE IV PRN (17:14)
[2022-11-07] MEDS ORDERED: GLUCOSE 40% GEL 15 GM TUBE PO PRN (17:14)
[2022-11-07] MEDS ORDERED: ONDANSETRON INJ 2 MG/ML 2 ML VIAL IV PRN (17:14)
[2022-11-07] MEDS ORDERED: dilTIAZem HCl 5 MG/ML 5 ML VIAL IV STA (18:27)
[2022-11-07] MEDS ORDERED: STAT IV Infusion **Titration per Protocol STA (18:27)
[2022-11-07] MEDS: HEPARIN SODIUM/DEXTROSE 25,000 UNITS/500 ML BAG IV SCH (18:32)
[2022-11-07] MEDS: ACETAMINOPHEN 325 MG TAB PO PRN (18:34)
[2022-11-07] MEDS: dilTIAZem HCL 125 MG in DEXTROSE 5% 100 ML IV SCH (19:24)
[2022-11-07] MEDS: INSULIN ASPART PER UNIT SC SCH ×2 (19:30→21:58)
[2022-11-07] MEDS ORDERED: GABAPENTIN 100 MG CAP PO SCH (21:00)
[2022-11-07] MEDS: predniSONE 5 MG TAB PO SCH (21:59)
[2022-11-07] MEDS: METOPROLOL SUCC 50MG EXT REL TAB PO SCH (21:59)
[2022-11-07] MEDS: CYCLOBENZAPRINE HCL 10 MG TAB PO SCH (22:00)
[2022-11-08] MEDS: ACETAMINOPHEN 325 MG TAB PO PRN ×2 (01:00→21:43)
[2022-11-08 01:10] LABS: Partial Thromboplastin Ratio 1.3; Partial Thromboplastin Time 36.5 Seconds (21.0-31.0)
[2022-11-08] MEDS ORDERED: HEPARIN SOD (PORCINE) 1000 UNIT/ML IV ONE (02:00)
[2022-11-08] MEDS: LEVOTHYROXINE SODIUM 100 MCG TABLET PO SCH (06:12)
[2022-11-08 08:11] LABS: Basophils # (auto) 0.08 K/uL (0-0.2); Basophils % (auto) 0.7 %; Eosinophils # (auto) 0.64 K/uL (0-0.50); Eosinophils % (auto) 5.6 %; Hematocrit (blood only) 32.9 % (37.0-47.0); Hemoglobin 10.1 g/dl (12.0-16.0); Immature Granulocytes # (auto) 0.52 K/uL (0.01-0.20); Immature Granulocytes % (auto) 4.6 %; Lymphocytes # (auto) 1.17 K/uL (1.2-3.4); Lymphocytes % (auto) 10.3 %; Mean Corpuscular Hemoglobin 27.2 pg (25.0-34.0); Mean Corpuscular Hgb Conc 30.7 g/dL (32.0-36.0); Mean Corpuscular Volume 88.7 fL (80.0-100.0); Mean Platelet Volume 10.6 fL (9.4-12.4); Monocytes # (auto) 0.45 K/uL (0.11-0.59); Neutrophils # (auto) 8.49 K/uL (1.40-6.50); Neutrophils % (auto) 74.8 %; Platelet Count 211 K/uL (130-400); RDW Coefficient of Variation 15.6 % (11.5-14.5); RDW Standard Deviation 50.9 fL (36.4-46.3); Red Blood Count 3.71 M/uL (4.20-5.40); White Blood Count 11.35 K/ul (4.8-10.8)
[2022-11-08 08:32] LABS: Calcium 8.8 mg/dl (8.5-10.1); Potassium 4.8 mmol/L (3.5-5.1)
[2022-11-08 08:38] LABS: BUN Creatinine Ratio 20.6 (10-20); Creatinine Clr Calc Pharmacy 27.3 ml/min; Est GFR (African American) 26.9 ml/min; Est GFR (Non-African American) 23.2 ml/min
[2022-11-08 08:56] LABS: Partial Thromboplastin Ratio 1.7
[2022-11-08 09:00] LABS: Partial Thromboplastin Time 47.3 Seconds (21.0-31.0)
[2022-11-08] MEDS: CHOLECALCIFEROL 1,000 UNITS 25 MCG TAB PO SCH (09:11)
[2022-11-08] MEDS: ASPIRIN 81 MG ECTAB PO SCH (09:11)
[2022-11-08] MEDS: ADVANCED PROBIOTIC 1250 MG CAPSULE PO SCH (09:11)
[2022-11-08] MEDS: MAGNESIUM OXIDE 400 MG TAB PO SCH (09:11)
[2022-11-08] MEDS: PANTOprazole 40 MG TAB PO SCH (09:12)
[2022-11-08] MEDS: METOPROLOL SUCC 50MG EXT REL TAB PO SCH (09:12)
[2022-11-08] MEDS: INSULIN ASPART PER UNIT SC SCH ×4 (09:15→21:00)
--- NOTE | 2022-11-08 12:08 | Cardiology Consultation ---
Date of Consultation November 08, 2022 Assessment & Plan (1) Atrial fibrillation with rapid ventricular response: Plan 1. Atrial fibrillation: Unclear duration. While she does have an apple watch, she has not been wearing it over the past week. Occasionally she did note readings greater than 100 beats per minute at rest. On occasion her watch has given her a warning message but she cannot recall the exact message. 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 It is likely that this current episode started within the last several days. Unclear relation to her other symptoms. 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 This is a possible explanation for some of her dizziness, vertigo and nausea. She has some symptoms of exertional intolerance which are possibly related to a change in rhythm and rapid ventricular rate. I do not believe she has symptoms suggestive of angina or coronary insufficiency. It is very likely that she will transition to a sinus rhythm on her own in this atrial fibrillation is of recent onset. However, I would agree with a rate control strategy. Increasing her beta-danae dose would be favored over adding another medicati on. We can stop the diltiazem infusion later this afternoon and give her additional doses of metoprolol. In the absence of adequate control exclude reinstitute oral diltiazem as well. Her chads Vasc score is quite high and I did recommend systemic anticoagulation. Given her degree of renal dysfunction she will be best served by Eliquis 5 mg twice daily. When starting Eliquis I would favor discontinuing her aspirin. When her heart rate and symptoms improve, she could be discharged from a cardiac standpoint. Her daughter apparently sees Dr. Pedraza as an outpatient in she would prefer follow up with him once discharged. 2. Mitral stenosis: She appeared to have an element of mitral stenosis on her echocardiogram performed yesterday. This could have been related to the hyperd ynamic state. However, she does appear to have some mitral and aortic sclerosis. This can be followed over time. Do not believe this represents a contraindication to the use of a NOAC (only mild MS) History of Present Illness Reason for Consultation: Atrial fibrillation Requesting Physician: Diya Attending Physician: Gilberto Hernadez History of Present Illness the patient is a 67-year-old woman without a known history of cardiac disease who has been feeling poorly for several days. The patient states that 6 days ago she began experiencing gastrointestinal symptoms. This involved nausea and dry heaving. She also had an element of weakness that lasted couple of days. Her symptoms seemed to improve and then gradually she became nauseated again. She had an element weakness mild exercise intolerance and nighttime headaches. Yesterday when exiting the shower she became quite dizzy and presyncopal. She had a playing on her living room floor. She does not believe he lost consciousness. She called EMS and was brought to the hospital for evaluation. She denied any recent history of fevers or chills. She has not had symptoms of chest discomfort. She exercises regularly and has noticed some mild exertional dyspnea recently. Generally speaking she is not short of breath. She had some significant pain in the PACs of both legs recently and occasional swelling in the lower extremities. She was not aware of any palpitations. Occasionally she will get some warnings from a apple watch suggesting higher heart rates, but she has not been wearing the watch recently. At the time my interview she claims to be feeling well. She still feels somewhat breathless when she talks for a long time. She denies any history of chest pain. She has been ambulatory to the bathroom back using a walker today. She did not report limiting dyspnea or any chest pain associated with activity. Still no sense of palpitation. Nausea appears improved currently. Allergies Allergy/AdvReac Type Severity Reaction Status Date / Time tetracycline Allergy Severe RASH ON Verified 11/07/22 11:48 FACE Gfmsdzm-QSE-PgN Reductase AdvReac Intermediate LE edema Verified 11/07/22 11:48 Inhibitor [Hbsvklm-Aib-Alr Reductase Inhibitor] oxycodone AdvReac Drowsy Verified 11/07/22 11:48 Home Medications Medication Instructions Recorded Confirmed Type cholecalciferol (vitamin D3) 25 1,000 unit PO QAM 10/26/18 11/07/22 History mcg (1,000 unit) capsule (Vitamin D3) magnesium 250 mg tablet 250 mg PO QAM 10/26/18 11/07/22 History acetaminophen 500 mg tablet 1,000 mg PO Q6H PRN Pain 12/24/18 11/07/22 History (Tylenol Extra Strength) cyclobenzaprine 10 mg tablet 10 mg PO HS 04/21/21 11/07/22 History prednisone 5 mg tablet 5 mg PO QPM 04/21/21 11/07/22 History albuterol sulfate 90 mcg/actuation 2 puff inhalation QID PRN 04/02/22 11/07/22 Rx aerosol inhaler (Ventolin HFA) shortness of breath or wheezing #8.5 grams levothyroxine 100 mcg tablet 100 mcg PO QAM #90 tabs 09/16/22 11/07/22 Rx aspirin 81 mg tablet,delayed 81 mg PO QAM 09/17/22 11/07/22 History release L.acidop,casei,lactis,rham-B.lact,reyes 2 cap PO DAILY #60 caps 09/20/22 11/07/22 Rx 625 mg (10 billion cell) capsule (Advanced Probiotic) furosemide 20 mg tablet (Lasix) 20 mg PO DAILY PRN edema of legs 09/20/22 11/07/22 Rx #14 tabs gabapentin 100 mg capsule 100 mg PO HS #1 cap 09/20/22 11/07/22 Rx metoprolol succinate 50 mg 125 mg PO UD #1 tab 09/20/22 11/07/22 Rx tablet,extended release 24 hr lisinopril 40 mg tablet 40 mg PO QAM 09/30/22 11/07/22 History omeprazole 40 mg capsule,delayed See Rx Instructions .Route 10/24/22 11/07/22 Rx release .COMPLEX #90 caps nitrofurantoin 100 mg PO BID 11/07/22 11/07/22 History monohydrate/macrocrystals 100 mg capsule Patient History Medical History (HFpEF) heart failure with preserved ejection fraction AISHWARYA (acute kidney injury) Anemia of chronic disease Bilateral leg edema Chronic anemia Colitis Diabetes mellitus type II, controlled GERD (gastroesophageal reflux disease) History of campylobacteriosis 04/2019 ([facility]) s/p antibiotics treatment History of MRSA infection lumbar surgical incision s/p vanco/ceftriaxone/bactrim per 04/2019 [facility] discharge summary Hyperlipidemia Hypertension Hypertension Hypothyroidism Immunosuppression due to drug therapy Lower GI bleed Lumbar radiculopathy Nonhealing surgical wound Recurrent UTI Rheumatoid arthritis Sepsis Spinal stenosis Stage 3 chronic kidney disease Tachycardia Type 2 diabetes mellitus Surgical History History of back surgery History of x2 History of hysterectomy total History of total left knee replacement Hx of tonsillectomy Status post laminectomy with spinal fusion L2-L5 laminectomy/fusion: 12/24/18: Grade view 1, MAC#3, ETT 7.0 Family History Father Diabetes Lung cancer Cancer Hypertension Mother Diabetes Brain tumor Cancer Hypertension Malignant neoplasm of brain Aunt Breast cancer Denies family history of Ovarian cancer Prostate cancer Myocardial infarction Colorectal cancer Social History Smoking Status: Never smoker Second Hand Exposure: No; Hx Alcohol Use: Yes Alcohol type: wine Alcohol Intake Frequency: 2-4 x/Month Hx Substance Use: No Preferred Language: Honduran Communication Ability: Effective Visual Impairment: Limited Hearing Ability: Normal Line Patrolman Required: No Beliefs That Will Affect Care: None marital status: Current Living Situation: Spouse Current Living Situation Comment: 1 level home current occupational status: retired How many Children do You have: 2 Other Information That Helps Us Care for You: No 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 Feels Safe at Home: Yes Safety Concerns: Feels Safe At This Time Childhood Exposure to Second-Hand Smoke: Yes caffeine: Yes Dental Care, Regularly: Yes Physical Activity Frequency: 5-6 Times per Week Physical Activity Frequency Comment: gym Seatbelt Use: always Sunscreen Use: Yes Do you think of yourself as: straight/heterosexual Assistive Devices: Cane and Glasses Review of Systems Review of Systems: Per HPI. Physical Exam Physical Exam: She is alert and oriented x3. Mood affect appear normal. She answered all questions appropriately. HEENT: Sclerae are anicteric. mild exophthalmos Pupils are equal and reactive to light and accommodation. Extraocular movements were intact. Neuro: Cranial nerves intact Neck: Examination of the submandibular region did not reveal any significant lymphadenopathy. Carotids are palpable bilaterally and free of bruits on auscultation. There was no evidence of jugular venous distention. The thyroid was not enlarged. Lungs: Lungs are clear to auscultation bilaterally. There are no rales wheezes or rhonchi. She has normal respiratory effort without use of accessory muscles. There is normal pulmonary excursion. Cardiac: The rhythm was irregular. S1 and S2 were normal. There are no murmurs on examination. The PMI was not markedly displaced on palpation. Abdomen: The abdomen was soft and nontender. Extremities: Patient has bilateral radial pulses that are equal in intensity. There is no evidence cyanosis or clubbing. There was no evidence of significant peripheral edema bilaterally. Skin: There are no rashes noted on examination today. Results & Data ([facility]) Vital Signs (Past 12 Hours) Vital Signs Temp Pulse Resp BP Pulse Ox O2 Del Method 11/08/22 08:33 36.3 C L 102 H 19 116/70 94 Room Air 11/08/22 03:09 36.8 C 91 H 18 117/67 95 Room Air Laboratory Results Abnormal Lab Results 11/07/22 11/07/22 11/07/22 11:20 11:29 11:29 WBC 12.55 H RBC 4.32 Hgb 11.8 L Hct 38.6 MCV 89.4 MCH 27.3 MCHC 30.6 L RDW Std Deviation 51.2 H RDW Coeff of Sumaya 15.7 H Plt Count 217 MPV 11.2 Immature Gran % (Auto) 2.1 Neut % (Auto) 80.3 Lymph % (Auto) 5.3 Benzie % (Auto) 5.2 Eos % (Auto) 6.5 Baso % (Auto) 0.6 Neut # (Auto) 10.09 H Lymph # (Auto) 0.66 L Benzie # (Auto) 0.65 H Eos # (Auto) 0.81 H Baso # (Auto) 0.08 Immature Gran # (Auto) 0.26 H PT INR APTT PTT Ratio Sodium 136 Potassium 4.5 Chloride 104 Carbon Dioxide 21 Anion Gap 11 BUN 53 H Creatinine 2.33 H Est Cr Clr Drug Dosing 25.2 Est GFR ( Amer) 24.3 Est GFR (Non-Af Amer) 20.9 BUN/Creatinine Ratio 22.7 H Glucose 364 H* POC Glucose Lactate Calcium 9.4 Magnesium 2.0 Total Bilirubin 0.4 AST 8 L ALT 29 Alkaline Phosphatase 113 H Troponin I High Sens 24.4 H Total Protein 6.2 Albumin 3.2 L Globulin 3.0 Albumin/Globulin Ratio 1.1 Lipase Procalcitonin TSH Free T4 Urine Color Urine Appearance Urine pH Ur Specific Sidney Urine Protein Urine Glucose (UA) Urine Ketones Urine Blood Urine Nitrite Urine Bilirubin Urine Urobilinogen Ur Leukocyte Esterase Urine WBC (Auto) Urine RBC (Auto) U Hyaline Cast (Auto) U Epithel Cells (Auto) Urine Bacteria (Auto) Adenovirus (PCR) Not Detected B. pertussis DNA (PCR) Not Detected B.parapertussis DNA PCR Not Detected C. pneumoniae DNA (PCR) Not Detected Coronavirus OC43 (PCR) Not Detected Coronavirus HKU1 (PCR) DETECTED A* Coronavirus 229E (PCR) Not Detected SARS-CoV-2 (PCR) Not Detected Coronavirus NL63 (PCR) Not Detected Human Metapneumovir PCR Not Detected Influenza Type A (PCR) Not Detected Influenza Type B (PCR) Not Detected M. pneumoniae (PCR) Not Detected Parainfluenza 1 (PCR) Not Detected Parainfluenza 2 (PCR) Not Detected Parainfluenza 3 (PCR) Not Detected Parainfluenza 4 (PCR) Not Detected RSV (PCR) Not Detected Entero/Rhino (PCR) Not Detected 11/07/22 11/07/22 11/07/22 11:29 11:29 11:48 WBC RBC Hgb Hct MCV MCH MCHC RDW Std Deviation RDW Coeff of Sumaya Plt Count MPV Immature Gran % (Auto) Neut % (Auto) Lymph % (Auto) Benzie % (Auto) Eos % (Auto) Baso % (Auto) Neut # (Auto) Lymph # (Auto) Benzie # (Auto) Eos # (Auto) Baso # (Auto) Immature Gran # (Auto) PT INR APTT PTT Ratio Sodium Potassium Chloride Carbon Dioxide Anion Gap BUN Creatinine Est Cr Clr Drug Dosing Est GFR ( Amer) Est GFR (Non-Af Amer) BUN/Creatinine Ratio Glucose POC Glucose Lactate 3.3 H* Calcium Magnesium Total Bilirubin AST ALT Alkaline Phosphatase Troponin I High Sens Total Protein Albumin Globulin Albumin/Globulin Ratio Lipase Procalcitonin TSH 7.104 H Free T4 0.72 Urine Color Yellow Urine Appearance Cloudy A Urine pH 5.0 Ur Specific Sidney 1.014 Urine Protein 1+ H Urine Glucose (UA) Trace H Urine Ketones Negative Urine Blood Negative Urine Nitrite Negative Urine Bilirubin Negative Urine Urobilinogen Negative Ur Leukocyte Esterase Trace H Urine WBC (Auto) 5-10 H Urine RBC (Auto) 5-10 H U Hyaline Cast (Auto) 1-5 U Epithel Cells (Auto) >30 H Urine Bacteria (Auto) Negative Adenovirus (PCR) B. pertussis DNA (PCR) B.parapertussis DNA PCR C. pneumoniae DNA (PCR) Coronavirus OC43 (PCR) Coronavirus HKU1 (PCR) Coronavirus 229E (PCR) SARS-CoV-2 (PCR) Coronavirus NL63 (PCR) Human Metapneumovir PCR Influenza Type A (PCR) Influenza Type B (PCR) M. pneumoniae (PCR) Parainfluenza 1 (PCR) Parainfluenza 2 (PCR) Parainfluenza 3 (PCR) Parainfluenza 4 (PCR) RSV (PCR) Entero/Rhino (PCR) 11/07/22 11/07/22 11/07/22 14:55 14:55 14:55 WBC RBC Hgb Hct MCV MCH MCHC RDW Std Deviation RDW Coeff of Sumaya Plt Count MPV Immature Gran % (Auto) Neut % (Auto) Lymph % (Auto) Benzie % (Auto) Eos % (Auto) Baso % (Auto) Neut # (Auto) Lymph # (Auto) Benzie # (Auto) Eos # (Auto) Baso # (Auto) Immature Gran # (Auto) PT 10.4 INR 1.0 APTT 23.5 PTT Ratio 0.9 Sodium Potassium Chloride Carbon Dioxide Anion Gap BUN Creatinine Est Cr Clr Drug Dosing Est GFR ( Amer) Est GFR (Non-Af Amer) BUN/Creatinine Ratio Glucose POC Glucose Lactate 1.7 Calcium Magnesium Total Bilirubin AST ALT Alkaline Phosphatase Troponin I High Sens Total Protein Albumin Globulin Albumin/Globulin Ratio Lipase Procalcitonin 0.85 H TSH Free T4 Urine Color Urine Appearance Urine pH Ur Specific Sidney Urine Protein Urine Glucose (UA) Urine Ketones Urine Blood Urine Nitrite Urine Bilirubin Urine Urobilinogen Ur Leukocyte Esterase Urine WBC (Auto) Urine RBC (Auto) U Hyaline Cast (Auto) U Epithel Cells (Auto) Urine Bacteria (Auto) Adenovirus (PCR) B. pertussis DNA (PCR) B.parapertussis DNA PCR C. pneumoniae DNA (PCR) Coronavirus OC43 (PCR) Coronavirus HKU1 (PCR) Coronavirus 229E (PCR) SARS-CoV-2 (PCR) Coronavirus NL63 (PCR) Human Metapneumovir PCR Influenza Type A (PCR) Influenza Type B (PCR) M. pneumoniae (PCR) Parainfluenza 1 (PCR) Parainfluenza 2 (PCR) Parainfluenza 3 (PCR) Parainfluenza 4 (PCR) RSV (PCR) Entero/Rhino (PCR) 11/07/22 11/07/22 11/07/22 14:57 17:17 19:54 WBC RBC Hgb Hct MCV MCH MCHC RDW Std Deviation RDW Coeff of Sumaya Plt Count MPV Immature Gran % (Auto) Neut % (Auto) Lymph % (Auto) Benzie % (Auto) Eos % (Auto) Baso % (Auto) Neut # (Auto) Lymph # (Auto) Benzie # (Auto) Eos # (Auto) Baso # (Auto) Immature Gran # (Auto) PT INR APTT PTT Ratio Sodium Potassium Chloride Carbon Dioxide Anion Gap BUN Creatinine Est Cr Clr Drug Dosing Est GFR ( Amer) Est GFR (Non-Af Amer) BUN/Creatinine Ratio Glucose POC Glucose 202 H 185 H Lactate Calcium Magnesium Total Bilirubin AST ALT Alkaline Phosphatase Troponin I High Sens 18.5 H D Total Protein Albumin Globulin Albumin/Globulin Ratio Lipase Procalcitonin TSH Free T4 Urine Color Urine Appearance Urine pH Ur Specific Sidney Urine Protein Urine Glucose (UA) Urine Ketones Urine Blood Urine Nitrite Urine Bilirubin Urine Urobilinogen Ur Leukocyte Esterase Urine WBC (Auto) Urine RBC (Auto) U Hyaline Cast (Auto) U Epithel Cells (Auto) Urine Bacteria (Auto) Adenovirus (PCR) B. pertussis DNA (PCR) B.parapertussis DNA PCR C. pneumoniae DNA (PCR) Coronavirus OC43 (PCR) Coronavirus HKU1 (PCR) Coronavirus 229E (PCR) SARS-CoV-2 (PCR) Coronavirus NL63 (PCR) Human Metapneumovir PCR Influenza Type A (PCR) Influenza Type B (PCR) M. pneumoniae (PCR) Parainfluenza 1 (PCR) Parainfluenza 2 (PCR) Parainfluenza 3 (PCR) Parainfluenza 4 (PCR) RSV (PCR) Entero/Rhino (PCR) 11/08/22 11/08/22 11/08/22 00:31 00:31 07:46 WBC RBC Hgb Hct MCV MCH MCHC RDW Std Deviation RDW Coeff of Sumaya Plt Count MPV Immature Gran % (Auto) Neut % (Auto) Lymph % (Auto) Benzie % (Auto) Eos % (Auto) Baso % (Auto) Neut # (Auto) Lymph # (Auto) Benzie # (Auto) Eos # (Auto) Baso # (Auto) Immature Gran # (Auto) PT INR APTT 36.5 H PTT Ratio 1.3 Sodium Potassium Chloride Carbon Dioxide Anion Gap BUN Creatinine Est Cr Clr Drug Dosing Est GFR ( Amer) Est GFR (Non-Af Amer) BUN/Creatinine Ratio Glucose POC Glucose 223 H Lactate Calcium Magnesium Total Bilirubin AST ALT Alkaline Phosphatase Troponin I High Sens 24.9 H Total Protein Albumin Globulin Albumin/Globulin Ratio Lipase Procalcitonin TSH Free T4 Urine Color Urine Appearance Urine pH Ur Specific Sidney Urine Protein Urine Glucose (UA) Urine Ketones Urine Blood Urine Nitrite Urine Bilirubin Urine Urobilinogen Ur Leukocyte Esterase Urine WBC (Auto) Urine RBC (Auto) U Hyaline Cast (Auto) U Epithel Cells (Auto) Urine Bacteria (Auto) Adenovirus (PCR) B. pertussis DNA (PCR) B.parapertussis DNA PCR C. pneumoniae DNA (PCR) Coronavirus OC43 (PCR) Coronavirus HKU1 (PCR) Coronavirus 229E (PCR) SARS-CoV-2 (PCR) Coronavirus NL63 (PCR) Human Metapneumovir PCR Influenza Type A (PCR) Influenza Type B (PCR) M. pneumoniae (PCR) Parainfluenza 1 (PCR) Parainfluenza 2 (PCR) Parainfluenza 3 (PCR) Parainfluenza 4 (PCR) RSV (PCR) Entero/Rhino (PCR) 11/08/22 11/08/22 11/08/22 07:48 07:48 07:58 WBC 11.35 H RBC 3.71 L Hgb 10.1 L Hct 32.9 L MCV 88.7 MCH 27.2 MCHC 30.7 L RDW Std Deviation 50.9 H RDW Coeff of Sumaya 15.6 H Plt Count 211 MPV 10.6 Immature Gran % (Auto) 4.6 Neut % (Auto) 74.8 Lymph % (Auto) 10.3 Benzie % (Auto) 4.0 Eos % (Auto) 5.6 Baso % (Auto) 0.7 Neut # (Auto) 8.49 H Lymph # (Auto) 1.17 L Benzie # (Auto) 0.45 Eos # (Auto) 0.64 H Baso # (Auto) 0.08 Immature Gran # (Auto) 0.52 H PT INR APTT PTT Ratio Sodium 136 Potassium 4.8 Chloride 107 Carbon Dioxide 21 Anion Gap 8 BUN 44 H Creatinine 2.14 H Est Cr Clr Drug Dosing 27.3 Est GFR ( Amer) 26.9 Est GFR (Non-Af Amer) 23.2 BUN/Creatinine Ratio 20.6 H Glucose 209 H POC Glucose Lactate Calcium 8.8 Magnesium Total Bilirubin AST ALT Alkaline Phosphatase Troponin I High Sens 16.1 H D Total Protein Albumin Globulin Albumin/Globulin Ratio Lipase 99 H Procalcitonin TSH Free T4 Urine Color Urine Appearance Urine pH Ur Specific Sidney Urine Protein Urine Glucose (UA) Urine Ketones Urine Blood Urine Nitrite Urine Bilirubin Urine Urobilinogen Ur Leukocyte Esterase Urine WBC (Auto) Urine RBC (Auto) U Hyaline Cast (Auto) U Epithel Cells (Auto) Urine Bacteria (Auto) Adenovirus (PCR) B. pertussis DNA (PCR) B.parapertussis DNA PCR C. pneumoniae DNA (PCR) Coronavirus OC43 (PCR) Coronavirus HKU1 (PCR) Coronavirus 229E (PCR) SARS-CoV-2 (PCR) Coronavirus NL63 (PCR) Human Metapneumovir PCR Influenza Type A (PCR) Influenza Type B (PCR) M. pneumoniae (PCR) Parainfluenza 1 (PCR) Parainfluenza 2 (PCR) Parainfluenza 3 (PCR) Parainfluenza 4 (PCR) RSV (PCR) Entero/Rhino (PCR) 11/08/22 07:58 WBC RBC Hgb Hct MCV MCH MCHC RDW Std Deviation RDW Coeff of Sumaya Plt Count MPV Immature Gran % (Auto) Neut % (Auto) Lymph % (Auto) Benzie % (Auto) Eos % (Auto) Baso % (Auto) Neut # (Auto) Lymph # (Auto) Benzie # (Auto) Eos # (Auto) Baso # (Auto) Immature Gran # (Auto) PT INR APTT 47.3 H* PTT Ratio 1.7 Sodium Potassium Chloride Carbon Dioxide Anion Gap BUN Creatinine Est Cr Clr Drug Dosing Est GFR ( Amer) Est GFR (Non-Af Amer) BUN/Creatinine Ratio Glucose POC Glucose Lactate Calcium Magnesium Total Bilirubin AST ALT Alkaline Phosphatase Troponin I High Sens Total Protein Albumin Globulin Albumin/Globulin Ratio Lipase Procalcitonin TSH Free T4 Urine Color Urine Appearance Urine pH Ur Specific Sidney Urine Protein Urine Glucose (UA) Urine Ketones Urine Blood Urine Nitrite Urine Bilirubin Urine Urobilinogen Ur Leukocyte Esterase Urine WBC (Auto) Urine RBC (Auto) U Hyaline Cast (Auto) U Epithel Cells (Auto) Urine Bacteria (Auto) Adenovirus (PCR) B. pertussis DNA (PCR) B.parapertussis DNA PCR C. pneumoniae DNA (PCR) Coronavirus OC43 (PCR) Coronavirus HKU1 (PCR) Coronavirus 229E (PCR) SARS-CoV-2 (PCR) Coronavirus NL63 (PCR) Human Metapneumovir PCR Influenza Type A (PCR) Influenza Type B (PCR) M. pneumoniae (PCR) Parainfluenza 1 (PCR) Parainfluenza 2 (PCR) Parainfluenza 3 (PCR) Parainfluenza 4 (PCR) RSV (PCR) Entero/Rhino (PCR) Diagnostic Findings Echocardiogram performed 11/07/2022: Normal LV systolic function with ejection fraction 65-70%. Moderate LVH. Mild aortic valve sclerosis without stenosis. [id number] mitral annular calcification and mild mitral stenosis. MRI performed at the time admission revealed chronic lacunar infarcts. Chest x-ray did not demonstrate any acute process PG Care Time/CCT Total # of Minutes Spent Total Time Spent with Patient: Total time spent is greater than 50% in coordination of care (as documented) at patient's floor/unit and/or counseling patient: Coding Level of Care Code 59862 INT INP/OBS CARE MIN Diagnoses Atrial fibrillation with rapid ventricular response I48.91
[2022-11-08] MEDS: HEPARIN SODIUM/DEXTROSE 25,000 UNITS/500 ML BAG IV SCH (12:38)
[2022-11-08] MEDS: METOPROLOL TARTRATE 50 MG TAB PO SCH ×2 (14:41→21:45)
[2022-11-08 15:55] LABS: A calco-baum cmplx NotReported Not Detected (NotDetected); Bact fragilis Not Reported Not Detected (NotDetected); C auris Not Reported Not Detected (NotDetected); Calbicans Not Reported Not Detected (NotDetected); Candida glabrata Not Reported Not Detected (NotDetected); Candida krusei Not Reported Not Detected (NotDetected); Cneoformans/gatti Not Reported Not Detected (NotDetected); Cparapsilosis Not Reported Not Detected (NotDetected); Ctropicalis Not Reported Not Detected (NotDetected); E cloacae compx Not Reported Not Detected (NotDetected); Efaecalis Not Reported Not Detected (NotDetected); Efaecium Not Reported Not Detected (NotDetected); Enterobacterales Not Reported Not Detected (NotDetected); Escherichia coli Not Reported Not Detected (NotDetected); H influenzae Not Reported Not Detected (NotDetected); K aerogenes Not Reported Not Detected (NotDetected); Koxytoca Not Reported Not Detected (NotDetected); Kpneumoniae grp Not Reported Not Detected (NotDetected); Lmonocyt Not Reported Not Detected (NotDetected); N meningitidis Not Reported Not Detected (NotDetected); P aeruginosa Not Reported Not Detected (NotDetected); Proteus spp Not Reported Not Detected (NotDetected); Salmonella spp Not Reported Not Detected (NotDetected); Smarcescens Not Reported Not Detected (NotDetected); Staph lugdunensis Not Reported Not Detected (NotDetected); Staph spp. Not Reported DETECTED (NotDetected); Staphaureus Not Reported Not Detected (NotDetected); Staphepi Not Reported DETECTED (NotDetected); Staphylococcus spp. DETECTED (NotDetected); Stenmaltophilia Not Reported Not Detected (NotDetected); Strep agal(GrpB) Not Reported Not Detected (NotDetected); Strep pneum Not Reported Not Detected (NotDetected); Strep pyog (GrpA) Not Reported Not Detected (NotDetected); Strep spp Not Reported Not Detected (NotDetected); mecAC Resistant Gene DETECTED (NotDetected)
--- NOTE | 2022-11-08 16:02 | Hospitalist Progress Note ---
Date of Service November 08, 2022 Assessment & Plan (1) New onset atrial fibrillation: Plan: TTE TSH 7.104, free T4 0.72. Recommend repeating in 4-6 weeks. Give her usual metoprolol succinate now, will add diltiazem drip if rate still elevated following this Start heparin IV as long as CT head negative switched metoprolol to tatrate but at 50 mg PO TID. (2) Exertional chest pain: Plan: Concerning symptoms of unstable angina vs. rate related demand-ischemia TTE Stat high sensitivity troponin, will serially trend Aspirin 324mg PO Bed rest Consult cardiology (3) Dizziness: Plan: Room spinning sensation with sudden onset in a. fib and associated nausea/dry heaves concerning for vertigo -> stroke - CT head, MRI brain However orthostatic and lightheaded component may just be related to her new onset atrial fibrillation Stop lisinopril in favor for rate controlling medications as above Hold gabapentin in case contributing towards dizziness (4) Diabetes mellitus type II, controlled: Plan: HbA1C 7.6 in September. Not on medication at home. Glucose 364mg/dL on admission. BSG ACHS Novolog: --Goal BSG Range: Low 110 mg/dL, High 140 mg/dL --Correction Factor: 45 mg/dL/unit --Carbohydrate ratio = 15 g/unit --BSGs ACHS if eating, q6h if npo (5) Acute on chronic kidney failure: Plan: Suspect pre-renal given nausea and dry heaving NSS 2L bolus given in ER. Will repeat with AM labs. Cr 2.33 from 1.54 Plan VTE Prophylaxis - deferred pending CT head Diet - heart healthy, T2DM Disposition - WILL ADMIT as patient is now on dilatiazem drip and increasing doses of metoprolol Admission and Anticipated Discharge Date Admission Date: November 08, 2022 Subjective 67 yo female reports feeling better today. She reports less fatigue and SOB today. Review of Systems Review of Systems: All systems reviewed & are unremarkable except as noted in HPI & below Physical Exam Physical Exam: Constitutional: WD/WN, vitals as above Eyes: PERRL, conjunctivae normal, anicteric sclerae ENMT: external ear and nose normal, oropharynx normal Respiratory: normal respiratory effort, lungs clear to auscultation Cardiovascular: Rate/Rhythm: + tachycardic and + irregularly irregular Extremities: normal capillary refill and + pedal edema (1+ b/l pedal edema); no calf tenderness Gastrointestinal (Abdomen): normal bowel sounds, soft, nontender, no hepatosplenomegaly Musculoskeletal: no cyanosis or clubbing, extremities motor strength 5/5 Skin: no rashes, warm and dry Neurologic: moves all extremities and awake; no focal motor deficits and not confused Speech / Cognition: normal speech Motor/Sensory: no pronator drift Cranial Nerves: PERRL, EOM intact bilaterally, normal facial strength, tongue midline, able to rotate head bilaterally, able to elevate shoulders bilaterally, no nystagmus and symmetric palate elevation Coordination: normal [id number] test Psychiatric: A+Ox3, euthymic affect Genitourinary: no CVA tenderness Results & Data Results & Data ([facility]) Vital Signs (Past 12 Hours) Vital Signs Temp Pulse Pulse Resp BP Pulse Ox O2 Del Method 11/08/22 14:17 89 11/08/22 12:15 36.7 C 98 H 18 131/71 96 Room Air 11/08/22 08:33 36.3 C L 102 H 19 116/70 94 Room Air PG Care Time/CCT Total # of Minutes Spent Total Time Spent with Patient: Total time spent is greater than 50% in coordination of care (as documented) at patient's floor/unit and/or counseling patient: Coding Level of Care Code 44108 SUB INP/OBS CARE 2/35MIN Diagnoses New onset atrial fibrillation I48.91 Exertional chest pain R07.9 Dizziness R42 Diabetes mellitus type II, controlled E11.9; Z79.4 Diabetes mellitus complication status: without complication Diabetes mellitus usp insulin use: with usp use Acute on chronic kidney failure N17.9; N18.9 (1) Diabetes mellitus type II, controlled Diabetes mellitus complication status: without complication Diabetes mellitus termite control servicer insulin use: with usp use Qualified Code(s): E11.9 - Type 2 diabetes mellitus without complications; Z79.4 - terminal manager (current) use of insulin
[2022-11-08 16:31] LABS: Staphylococcus epidermidis DETECTED (NotDetected)
[2022-11-08] MEDS: CYCLOBENZAPRINE HCL 10 MG TAB PO SCH (21:43)
[2022-11-08] MEDS: predniSONE 5 MG TAB PO SCH (21:45)
[2022-11-08] MEDS: dilTIAZem HCL 125 MG in DEXTROSE 5% 100 ML IV SCH (22:08)
[2022-11-09] MEDS: AMPICILLIN/SULBACTAM SOD 1,500 MG in 0.9 % SODIUM CHLORIDE 100 ML IV SCH ×2 (05:09→16:31)
[2022-11-09] MEDS: LEVOTHYROXINE SODIUM 100 MCG TABLET PO SCH (05:09)
[2022-11-09 05:10] LABS: Hematocrit (blood only) 30.1 % (37.0-47.0); Hemoglobin 9.4 g/dl (12.0-16.0); Mean Corpuscular Hemoglobin 27.6 pg (25.0-34.0); Mean Corpuscular Hgb Conc 31.2 g/dL (32.0-36.0); Mean Corpuscular Volume 88.3 fL (80.0-100.0); Mean Platelet Volume 10.2 fL (9.4-12.4); Platelet Count 182 K/uL (130-400); RDW Coefficient of Variation 15.7 % (11.5-14.5); RDW Standard Deviation 50.6 fL (36.4-46.3); Red Blood Count 3.41 M/uL (4.20-5.40); White Blood Count 10.46 K/ul (4.8-10.8)
[2022-11-09 05:22] LABS: Partial Thromboplastin Ratio 0.8; Partial Thromboplastin Time 21.9 Seconds (21.0-31.0)
[2022-11-09 05:25] LABS: Calcium 9.1 mg/dl (8.5-10.1); Potassium 4.4 mmol/L (3.5-5.1)
[2022-11-09 05:31] LABS: BUN Creatinine Ratio 20.3 (10-20); C Reactive Protein 11.07 mg/dl (0-0.5); Creatinine Clr Calc Pharmacy 27.6 ml/min; Est GFR (African American) 27.2 ml/min; Est GFR (Non-African American) 23.5 ml/min
[2022-11-09] MEDS ORDERED: HEPARIN SOD (PORCINE) 1000 UNIT/ML IV ONE (05:35)
[2022-11-09] MEDS: HEPARIN SODIUM/DEXTROSE 25,000 UNITS/500 ML BAG IV SCH (06:36)
[2022-11-09] MEDS: INSULIN ASPART PER UNIT SC SCH ×4 (07:54→20:36)
[2022-11-09] MEDS: MAGNESIUM OXIDE 400 MG TAB PO SCH (08:14)
[2022-11-09] MEDS: METOPROLOL TARTRATE 50 MG TAB PO SCH ×4 (08:14→20:31)
[2022-11-09] MEDS: PANTOprazole 40 MG TAB PO SCH (08:14)
[2022-11-09] MEDS: ADVANCED PROBIOTIC 1250 MG CAPSULE PO SCH (08:14)
[2022-11-09] MEDS: CHOLECALCIFEROL 1,000 UNITS 25 MCG TAB PO SCH (08:14)
[2022-11-09] MEDS: ASPIRIN 81 MG ECTAB PO SCH (08:14)
--- NOTE | 2022-11-09 08:49 | Cardiology Progress Note ---
Date of Service November 09, 2022 Assessment & Plan (1) Atrial fibrillation with rapid ventricular response: Plan 1. Atrial fibrillation: Symptoms appear to have resolved. Granted, she has been less active in her rate control is been better. Diltiazem infusion restarted yesterday due to persistent higher ventricular rates. She is on an escalating dose of beta-blockade. I think we can stop her diltiazem infusion in a few hours and continue titration of metoprolol. Maximum dose of metoprolol succinate would be 400 mg daily. However, if she has poor control on her current dose of metoprolol a small dose of diltiazem could be added as the combined efficacy is likely greater. Also, she could be started on oral Eliquis 5 mg twice daily. It is unclear to me if there would be a need for procedures at this point given her new bacteremia (ie LP). If not, I would discontinue heparin infusion and start Eliquis. 2. Mitral stenosis: Mild Admission and Anticipated Discharge Date Admission Date: November 08, 2022 Subjective The patient claimed he feeling well this morning. She was ambulatory around her room. Her dyspnea peer to have resolved. No exertional chest discomfort. No dizziness. No sense of palpitation. Review of Systems Review of Systems: Per HPI Physical Exam Physical Exam: She is alert and oriented x3. Mood affect appear normal. She answered all questions appropriately. HEENT: Sclerae are anicteric. mild exophthalmos Pupils are equal and reactive to light and accommodation. Extraocular movements were intact. Neuro: Cranial nerves intact Lungs: Lungs are clear to auscultation bilaterally. There are no rales wheezes or rhonchi. She has normal respiratory effort without use of accessory muscles. There is normal pulmonary excursion. Cardiac: The rhythm was irregular. S1 and S2 were normal. There are no murmurs on examination. The PMI was not markedly displaced on palpation. Extremities: Patient has bilateral radial pulses that are equal in intensity. There is no evidence cyanosis or clubbing. Skin: There are no rashes noted on examination today. Results & Data ([facility]) Vital Signs (Past 12 Hours) Vital Signs Temp Pulse Pulse Resp BP BP Pulse Ox 11/09/22 07:54 36.6 C 107 H 18 151/79 H 96 11/09/22 07:15 86 11/09/22 03:01 36.4 C L 110 H 18 131/81 93 11/09/22 01:16 109 H 152/79 H 11/09/22 00:18 109 H 135/80 11/08/22 22:02 123 H 11/08/22 23:17 36.9 C 111 H 18 146/68 H 91 11/08/22 22:45 116 H 137/81 11/08/22 22:28 124 H 159/100 H O2 Del Method 11/09/22 07:54 Room Air 11/09/22 07:15 11/09/22 03:01 Room Air 11/09/22 01:16 11/09/22 00:18 11/08/22 22:02 11/08/22 23:17 Room Air 11/08/22 22:45 11/08/22 22:28 Laboratory Results Abnormal Lab Results 11/07/22 11/08/22 11/08/22 14:55 07:58 07:58 WBC RBC Hgb Hct MCV MCH MCHC RDW Std Deviation RDW Coeff of Sumaya Plt Count MPV ESR APTT 47.3 H* PTT Ratio 1.7 Sodium Potassium Chloride Carbon Dioxide Anion Gap BUN Creatinine Est Cr Clr Drug Dosing Est GFR ( Amer) Est GFR (Non-Af Amer) BUN/Creatinine Ratio Glucose POC Glucose Calcium Troponin I High Sens C-Reactive Protein Lipase 99 H Procalcitonin Nasal Screen MRSA (PCR) Staphylococcus sp PCR DETECTED A mecA/C-Methicil Resis Gene DETECTED A Staph epidermidis (PCR) DETECTED A Bld Cult ID Panel PCR See PCR Comment 11/08/22 11/08/22 11/08/22 12:07 12:25 16:25 WBC RBC Hgb Hct MCV MCH MCHC RDW Std Deviation RDW Coeff of Sumaya Plt Count MPV ESR APTT PTT Ratio Sodium Potassium Chloride Carbon Dioxide Anion Gap BUN Creatinine Est Cr Clr Drug Dosing Est GFR ( Amer) Est GFR (Non-Af Amer) BUN/Creatinine Ratio Glucose POC Glucose 207 H 122 H Calcium Troponin I High Sens 15.5 H C-Reactive Protein Lipase Procalcitonin Nasal Screen MRSA (PCR) Staphylococcus sp PCR mecA/C-Methicil Resis Gene Staph epidermidis (PCR) Bld Cult ID Panel PCR 11/08/22 11/08/22 11/09/22 18:42 20:02 04:20 WBC RBC Hgb Hct MCV MCH MCHC RDW Std Deviation RDW Coeff of Sumaya Plt Count MPV ESR APTT PTT Ratio Sodium Potassium Chloride Carbon Dioxide Anion Gap BUN Creatinine Est Cr Clr Drug Dosing Est GFR ( Amer) Est GFR (Non-Af Amer) BUN/Creatinine Ratio Glucose POC Glucose 140 H Calcium Troponin I High Sens 16.0 H C-Reactive Protein Lipase Procalcitonin Nasal Screen MRSA (PCR) Negative Staphylococcus sp PCR mecA/C-Methicil Resis Gene Staph epidermidis (PCR) Bld Cult ID Panel PCR 11/09/22 11/09/22 11/09/22 04:52 04:52 04:52 WBC 10.46 RBC 3.41 L Hgb 9.4 L Hct 30.1 L MCV 88.3 MCH 27.6 MCHC 31.2 L RDW Std Deviation 50.6 H RDW Coeff of Sumaya 15.7 H Plt Count 182 MPV 10.2 ESR 68 H APTT 21.9 PTT Ratio 0.8 Sodium Potassium Chloride Carbon Dioxide Anion Gap BUN Creatinine Est Cr Clr Drug Dosing Est GFR ( Amer) Est GFR (Non-Af Amer) BUN/Creatinine Ratio Glucose POC Glucose Calcium Troponin I High Sens C-Reactive Protein Lipase Procalcitonin Nasal Screen MRSA (PCR) Staphylococcus sp PCR mecA/C-Methicil Resis Gene Staph epidermidis (PCR) Bld Cult ID Panel PCR 11/09/22 11/09/22 11/09/22 04:52 05:00 07:28 WBC RBC Hgb Hct MCV MCH MCHC RDW Std Deviation RDW Coeff of Sumaya Plt Count MPV ESR APTT PTT Ratio Sodium 134 L Potassium 4.4 Chloride 103 Carbon Dioxide 24 Anion Gap 7 BUN 43 H Creatinine 2.12 H Est Cr Clr Drug Dosing 27.6 Est GFR ( Amer) 27.2 Est GFR (Non-Af Amer) 23.5 BUN/Creatinine Ratio 20.3 H Glucose 225 H POC Glucose 246 H Calcium 9.1 Troponin I High Sens C-Reactive Protein 11.07 H Lipase Procalcitonin 0.34 Nasal Screen MRSA (PCR) Staphylococcus sp PCR mecA/C-Methicil Resis Gene Staph epidermidis (PCR) Bld Cult ID Panel PCR PG Care Time/CCT Total # of Minutes Spent Total Time Spent with Patient: Total time spent is greater than 50% in coordination of care (as documented) at patient's floor/unit and/or counseling patient: Coding Level of Care Code 56154 SUB INP/OBS CARE 235MIN Diagnoses Atrial fibrillation with rapid ventricular response I48.91
[2022-11-09 12:36] LABS: Partial Thromboplastin Ratio 1.9
[2022-11-09] MEDS: predniSONE 5 MG TAB PO SCH (20:30)
[2022-11-09] MEDS: dilTIAZem HCL 125 MG in DEXTROSE 5% 100 ML IV SCH (20:30)
[2022-11-09] MEDS: CYCLOBENZAPRINE HCL 10 MG TAB PO SCH (20:30)
[2022-11-09] MEDS ORDERED: APIXABAN 5 MG TABLET PO SCH (21:00)
--- NOTE | 2022-11-09 21:07 | Hospitalist Progress Note ---
Date of Service November 09, 2022 Assessment & Plan (1) New onset atrial fibrillation: Plan: TTE TSH 7.104, free T4 0.72. Recommend repeating in 4-6 weeks. Give her usual metoprolol succinate now, will add diltiazem drip if rate still elevated following this Start heparin IV as long as CT head negative increased metoprolol tatrate to 50 mg PO QID. will monitor. (2) Exertional chest pain: Plan: Concerning symptoms of unstable angina vs. rate related demand-ischemia TTE Stat high sensitivity troponin, will serially trend Aspirin 324mg PO Bed rest Consult cardiology (3) Dizziness: Plan: Room spinning sensation with sudden onset in a. fib and associated nausea/dry heaves concerning for vertigo -> stroke - CT head, MRI brain However orthostatic and lightheaded component may just be related to her new onset atrial fibrillation Stop lisinopril in favor for rate controlling medications as above Hold gabapentin in case contributing towards dizziness (4) Diabetes mellitus type II, controlled: Plan: HbA1C 7.6 in September. Not on medication at home. Glucose 364mg/dL on admission. BSG ACHS Novolog: --Goal BSG Range: Low 110 mg/dL, High 140 mg/dL --Correction Factor: 45 mg/dL/unit --Carbohydrate ratio = 15 g/unit --BSGs ACHS if eating, q6h if npo (5) Acute on chronic kidney failure: Plan: Suspect pre-renal given nausea and dry heaving NSS 2L bolus given in ER. Will repeat with AM labs. Cr 2.33 from 1.54 Plan VTE Prophylaxis - deferred pending CT head Diet - heart healthy, T2DM Disposition - WILL ADMIT as patient is now on dilatiazem drip and increasing doses of metoprolol Admission and Anticipated Discharge Date Admission Date: November 08, 2022 Subjective 67 yo female reports doing well. She has no new complaints. Review of Systems Review of Systems: All systems reviewed & are unremarkable except as noted in HPI & below Physical Exam Physical Exam: Constitutional: WD/WN, vitals as above Eyes: PERRL, conjunctivae normal, anicteric sclerae ENMT: external ear and nose normal, oropharynx normal Respiratory: normal respiratory effort, lungs clear to auscultation Cardiovascular: Rate/Rhythm: + tachycardic and + irregularly irregular Extremities: normal capillary refill and + pedal edema (1+ b/l pedal edema); no calf tenderness Gastrointestinal (Abdomen): normal bowel sounds, soft, nontender, no hepatosplenomegaly Musculoskeletal: no cyanosis or clubbing, extremities motor strength 5/5 Skin: no rashes, warm and dry Neurologic: moves all extremities and awake; no focal motor deficits and not confused Speech / Cognition: normal speech Motor/Sensory: no pronator drift Cranial Nerves: PERRL, EOM intact bilaterally, normal facial strength, tongue midline, able to rotate head bilaterally, able to elevate shoulders bilaterally, no nystagmus and symmetric palate elevation Coordination: normal [id number] test Psychiatric: A+Ox3, euthymic affect Genitourinary: no CVA tenderness Results & Data Results & Data ([facility]) Vital Signs (Past 12 Hours) Vital Signs Temp Pulse Pulse Resp BP Pulse Ox O2 Del Method 11/09/22 19:28 36.8 C 91 H 18 135/77 95 Room Air 11/09/22 16:11 36.5 C 120 H 18 146/83 H 93 Room Air 11/09/22 15:44 97 H 11/09/22 11:14 36.6 C 84 18 128/78 97 Room Air PG Care Time/CCT Total # of Minutes Spent Total Time Spent with Patient: Total time spent is greater than 50% in coordination of care (as documented) at patient's floor/unit and/or counseling patient: Coding Level of Care Code 36186 SUB INP/OBS CARE 2/35MIN Diagnoses New onset atrial fibrillation I48.91 Exertional chest pain R07.9 Dizziness R42 Diabetes mellitus type II, controlled E11.9; Z79.4 Diabetes mellitus complication status: without complication Diabetes mellitus skilled nursing insulin use: with skilled nursing use Acute on chronic kidney failure N17.9; N18.9 (1) Diabetes mellitus type II, controlled Diabetes mellitus complication status: without complication Diabetes mellitus vermin exterminator insulin use: with vermin exterminator use Qualified Code(s): E11.9 - Type 2 diabetes mellitus without complications; Z79.4 - ferry terminal agent (current) use of insulin
[2022-11-09] MEDS: APIXABAN 5 MG TABLET PO SCH (22:34)
[2022-11-10] MEDS: HEPARIN SODIUM/DEXTROSE 25,000 UNITS/500 ML BAG IV SCH (00:38)
[2022-11-10] MEDS: LEVOTHYROXINE SODIUM 100 MCG TABLET PO SCH (06:02)
[2022-11-10] MEDS: AMPICILLIN/SULBACTAM SOD 1,500 MG in 0.9 % SODIUM CHLORIDE 100 ML IV SCH ×2 (06:02→15:59)
[2022-11-10] MEDS: INSULIN ASPART PER UNIT SC SCH ×4 (08:00→20:29)
[2022-11-10] MEDS: APIXABAN 5 MG TABLET PO SCH ×2 (08:27→21:05)
[2022-11-10] MEDS: METOPROLOL TARTRATE 50 MG TAB PO SCH ×4 (08:27→21:05)
[2022-11-10] MEDS: ASPIRIN 81 MG ECTAB PO SCH (08:28)
[2022-11-10] MEDS: PANTOprazole 40 MG TAB PO SCH (08:28)
[2022-11-10] MEDS: CHOLECALCIFEROL 1,000 UNITS 25 MCG TAB PO SCH (08:28)
[2022-11-10] MEDS: MAGNESIUM OXIDE 400 MG TAB PO SCH (08:28)
[2022-11-10] MEDS: ADVANCED PROBIOTIC 1250 MG CAPSULE PO SCH (08:28)
--- NOTE | 2022-11-10 10:03 | Cardiology Progress Note ---
Date of Service November 10, 2022 Assessment & Plan (1) Atrial fibrillation with rapid ventricular response: Plan 1. Atrial fibrillation: Symptoms appear to have resolved. While her heart rate appeared improved, I was not aware she was still on the diltiazem infusion. Apparently this was re-initiated last evening. As such, I think we will continue high-dose metoprolol and add low-dose diltiazem. She seems to have adequate blood pressure and has not been symptomatic in that regard. If she is tolerating low-dose diltiazem the rates are reasonable by late this afternoon I would be comfortable sending her home on metoprolol succinate 200 mg daily and long-acting diltiazem 120 mg daily. She was started on Eliquis 5 mg twice daily yesterday and this can be continued. 2. Mitral stenosis: Mild The patient will like to follow-up with Dr. Pedraza, family friend at the time of discharge. I will make this request. Admission and Anticipated Discharge Date Admission Date: November 08, 2022 Subjective The patient reports feeling well this morning. She is anxious for discharge. The symptoms of dyspnea and exercise intolerance noted the time admission have resolved entirely. She has been ambulatory around the room without dizziness, lightheadedness, palpitations or shortness of breath. Review of Systems Review of Systems: Per HPI Physical Exam Physical Exam: She is alert and oriented x3. Mood affect appear normal. She answered all questions appropriately. HEENT: Sclerae are anicteric. mild exophthalmos Pupils are equal and reactive to light and accommodation. Extraocular movements were intact. Neuro: Cranial nerves intact Lungs: Lungs are clear to auscultation bilaterally. There are no rales wheezes or rhonchi. She has normal respiratory effort without use of accessory muscles. There is normal pulmonary excursion. Cardiac: The rhythm was irregular. S1 and S2 were normal. There are no murmurs on examination. The PMI was not markedly displaced on palpation. Extremities: Patient has bilateral radial pulses that are equal in intensity. There is no evidence cyanosis or clubbing. Skin: There are no rashes noted on examination today. Results & Data ([facility]) Vital Signs (Past 12 Hours) Vital Signs Temp Pulse Pulse Resp BP BP Pulse Ox 11/10/22 07:36 36.7 C 113 H 16 147/88 H 93 11/10/22 07:11 116 H 11/10/22 03:24 36.6 C 100 H 18 131/77 94 11/09/22 23:17 37.2 C 90 18 137/82 93 O2 Del Method 11/10/22 07:36 Room Air 11/10/22 07:11 11/10/22 03:24 Room Air 11/09/22 23:17 Room Air Laboratory Results Abnormal Lab Results 11/09/22 11/09/22 11/09/22 11:13 11:52 16:10 APTT 53.0 H* PTT Ratio 1.9 POC Glucose 181 H 162 H 11/09/22 11/10/22 20:08 07:21 APTT PTT Ratio POC Glucose 168 H 198 H PG Care Time/CCT Total # of Minutes Spent Total Time Spent with Patient: Total time spent is greater than 50% in coordination of care (as documented) at patient's floor/unit and/or counseling patient: Coding Level of Care Code 70684 SUB INP/OBS CARE 2/35MIN Diagnoses Atrial fibrillation with rapid ventricular response I48.91
[2022-11-10] MEDS: dilTIAZem HCL 30 MG TAB PO SCH ×3 (10:42→21:05)
[2022-11-10] MEDS: ACETAMINOPHEN 325 MG TAB PO PRN (17:02)
[2022-11-10] MEDS: CYCLOBENZAPRINE HCL 10 MG TAB PO SCH (21:04)
[2022-11-10] MEDS: predniSONE 5 MG TAB PO SCH (21:05)
--- NOTE | 2022-11-10 23:21 | Hospitalist Progress Note ---
Date of Service November 10, 2022 Assessment & Plan (1) New onset atrial fibrillation: Plan: TTE TSH 7.104, free T4 0.72. Recommend repeating in 4-6 weeks. Give her usual metoprolol succinate now, will add diltiazem drip if rate still elevated following this Start heparin IV as long as CT head negative Added PO diltiazem and metorpolol PO. will monitor. concern this may be related to her bacteremia Interesting though that some set is an anaerobic bottle and the other is an aerobic bottle that was positive. Patient though did have some inflammatory markers that were elevated, ill consult ID (2) Exertional chest pain: Plan: Concerning symptoms of unstable angina vs. rate related demand-ischemia TTE Stat high sensitivity troponin, will serially trend Aspirin 324mg PO Bed rest Consult cardiology (3) Dizziness: Plan: Room spinning sensation with sudden onset in a. fib and associated nausea/dry heaves concerning for vertigo -> stroke - CT head, MRI brain However orthostatic and lightheaded component may just be related to her new onset atrial fibrillation Stop lisinopril in favor for rate controlling medications as above Hold gabapentin in case contributing towards dizziness (4) Diabetes mellitus type II, controlled: Plan: HbA1C 7.6 in September. Not on medication at home. Glucose 364mg/dL on admission. BSG ACHS Novolog: --Goal BSG Range: Low 110 mg/dL, High 140 mg/dL --Correction Factor: 45 mg/dL/unit --Carbohydrate ratio = 15 g/unit --BSGs ACHS if eating, q6h if npo (5) Acute on chronic kidney failure: Plan: Suspect pre-renal given nausea and dry heaving NSS 2L bolus given in ER. Will repeat with AM labs. Cr 2.33 from 1.54 Plan VTE Prophylaxis - deferred pending CT head Diet - heart healthy, T2DM Disposition - WILL ADMIT as patient is now on dilatiazem drip and increasing doses of metoprolol Admission and Anticipated Discharge Date Admission Date: November 08, 2022 Subjective Patient reports feeling better. Patient has no new complaints. Tele monitor: HR around 90-110 Review of Systems Review of Systems: All systems reviewed & are unremarkable except as noted in HPI & below Physical Exam Physical Exam: Constitutional: WD/WN, vitals as above Eyes: PERRL, conjunctivae normal, anicteric sclerae ENMT: external ear and nose normal, oropharynx normal Respiratory: normal respiratory effort, lungs clear to auscultation Cardiovascular: Rate/Rhythm: + tachycardic and + irregularly irregular Extremities: normal capillary refill and + pedal edema (1+ b/l pedal edema); no calf tenderness Gastrointestinal (Abdomen): normal bowel sounds, soft, nontender, no hepatosplenomegaly Musculoskeletal: no cyanosis or clubbing, extremities motor strength 5/5 Skin: no rashes, warm and dry Neurologic: moves all extremities and awake; no focal motor deficits and not confused Speech / Cognition: normal speech Motor/Sensory: no pronator drift Cranial Nerves: PERRL, EOM intact bilaterally, normal facial strength, tongue midline, able to rotate head bilaterally, able to elevate shoulders bilaterally, no nystagmus and symmetric palate elevation Coordination: normal ghzjao-wo-ijky test Psychiatric: A+Ox3, euthymic affect Genitourinary: no CVA tenderness Results & Data Results & Data ([facility]) Vital Signs (Past 12 Hours) Vital Signs Temp Pulse Pulse Resp BP BP Pulse Ox 11/10/22 22:56 36.7 C 100 H 20 143/85 H 95 11/10/22 21:08 108 H 149/91 H 11/10/22 19:06 36.9 C 95 H 18 124/87 96 11/10/22 15:32 36.8 C 95 H 16 145/86 H 95 11/10/22 13:35 116 H 11/10/22 11:35 36.5 C 95 H 19 111/71 96 O2 Del Method 11/10/22 22:56 Room Air 11/10/22 21:08 11/10/22 19:06 Room Air 11/10/22 15:32 Room Air 11/10/22 13:35 11/10/22 11:35 Room Air PG Care Time/CCT Total # of Minutes Spent Total Time Spent with Patient: Total time spent is greater than 50% in coordination of care (as documented) at patient's floor/unit and/or counseling patient: Coding Level of Care Code 78275 SUB INP/OBS CARE 2/35MIN Diagnoses New onset atrial fibrillation I48.91 Exertional chest pain R07.9 Dizziness R42 Diabetes mellitus type II, controlled E11.9; Z79.4 Diabetes mellitus complication status: without complication Diabetes mellitus fpc insulin use: with fpc use Acute on chronic kidney failure N17.9; N18.9 (1) Diabetes mellitus type II, controlled Diabetes mellitus complication status: without complication Diabetes mellitus fpc insulin use: with marine oil terminal superintendent use Qualified Code(s): E11.9 - Type 2 diabetes mellitus without complications; Z79.4 - senior living (current) use of insulin
[2022-11-11] MEDS: LEVOTHYROXINE SODIUM 100 MCG TABLET PO SCH (06:18)
[2022-11-11 07:39] LABS: Hematocrit (blood only) 35.6 % (37.0-47.0); Hemoglobin 11.2 g/dl (12.0-16.0); Mean Corpuscular Hemoglobin 27.7 pg (25.0-34.0); Mean Corpuscular Hgb Conc 31.5 g/dL (32.0-36.0); Mean Corpuscular Volume 87.9 fL (80.0-100.0); Mean Platelet Volume 11.2 fL (9.4-12.4); Platelet Count 298 K/uL (130-400); RDW Coefficient of Variation 15.6 % (11.5-14.5); RDW Standard Deviation 50.4 fL (36.4-46.3); Red Blood Count 4.05 M/uL (4.20-5.40); White Blood Count 13.04 K/ul (4.8-10.8)
[2022-11-11 08:17] LABS: Albumin Level 3.3 gm/dl (3.4-5.0); Bilirubin,Total 0.4 mg/dl (0.2-1.0); Carbon Dioxide 24 mmol/L (21-32); Chloride 102 mmol/L (98-107)
[2022-11-11] MEDS: APIXABAN 5 MG TABLET PO SCH ×2 (08:24→21:01)
[2022-11-11] MEDS: INSULIN ASPART PER UNIT SC SCH ×4 (08:24→21:12)
[2022-11-11] MEDS: ASPIRIN 81 MG ECTAB PO SCH (08:25)
[2022-11-11] MEDS: METOPROLOL TARTRATE 50 MG TAB PO SCH (08:25)
[2022-11-11] MEDS: ADVANCED PROBIOTIC 1250 MG CAPSULE PO SCH (08:25)
[2022-11-11] MEDS: dilTIAZem HCL 30 MG TAB PO SCH ×3 (08:25→21:01)
[2022-11-11] MEDS: PANTOprazole 40 MG TAB PO SCH (08:25)
[2022-11-11] MEDS: MAGNESIUM OXIDE 400 MG TAB PO SCH (08:25)
[2022-11-11] MEDS: CHOLECALCIFEROL 1,000 UNITS 25 MCG TAB PO SCH (08:25)
[2022-11-11 08:36] LABS: Alanine Aminotransferase 21 U/L (7-52); Alkaline Phosphatase 73 U/L (34-104); BUN Creatinine Ratio 23.7 (10-20); Blood Urea Nitrogen 40 mg/dl (6-23); C Reactive Protein 3.94 mg/dl (0-0.5); Creatinine Clr Calc Pharmacy 34.1 ml/min; Est GFR (African American) 35.8 ml/min; Est GFR (Non-African American) 30.9 ml/min; Globulin 3.3 gm/dl (2.5-4.0); Glucose 209 mg/dl (70-99(Fasting)); Total Protein 6.6 gm/dl (6.0-8.3)
[2022-11-11 08:46] LABS: Potassium 5.2 mmol/L (3.5-5.1)
[2022-11-11] MEDS: METOPROLOL SUCC 50MG EXT REL TAB PO SCH ×2 (09:57→21:01)
--- NOTE | 2022-11-11 14:32 | Infectious Disease Consult ---
Date of Consultation November 11, 2022 Assessment & Plan (1) Coronavirus infection: (2) Weakness: (3) Atrial fibrillation with rapid ventricular response: Plan 67 year old female with h/o L TKA, L2-L5 laminectomy with fusion (IBR and screws), DM A1C 7.6%,, CKD, HLD, HTN, rheumatoid arthritis on 5mg prednisone, UTIs in past, admission for urosepsis, most recently treated for urine culture panS Ecoli on 10/28 with Nitrofurantoin a/w dizziness, SOB, CP. Infectious diseases has been consulted for CoNS bacteremia. Patient recently admitted to [facility] in 09/2022 for weakness, fatigue. She was septic concerning for UTI. CT A/P Showed no stones at that time. Blood cultures were negative. Her UCx showed She was ultimately discharged on Keflex and has been following with Urology. Prior notable infections include 2019 lumbar surgery and had an unhealed portion of her surgical incision with some drainage which cultured positive for MRSA. She was initially treated with Vancomycin and Ceftriaxone and was prescribed Bactrim DS x 10 days. No ID care at that time and no issues since then related to surgical site. Patient admitted on 11/07, she was afebrile mildly tachycardic. Initial WBC 12.5, creatinine 2.3 mild elevation in troponin. She tested positive for coronavirus H KU 1. Chest x-ray is clear. Initial lactate of 3.3. The patient had been ordered the IV fluids. Urinalysis does not show obvious infection as the patient has whites with numerous epithelial cells no evidence of bacteria or nitrites but given the patient's mild leukocytosis as well as tachycardia the patient had been ordered the Rocephin. UA only with 5-10 wbcs, ucx not run.Admission Blood cultures now growing Coagulase negative staph (1/2, anaerobic and aerobic) 11/09 Blood cultures NGTD. In the ER she was noted to be in atrial fibrillation with rapid ventricular rate MRI brain negative. CT head negative, CXR no acute infection. Patient has remained afebrile, WBC slightly increased to 13 CRP 3.9 PROBLEM LIST 1. CoNS bacteria likely contaminant 11/07, repeat cx no growth 11/09 2. Leukocytosis, mild 3. RA 4. Atrial fibrillation MICRO Coagulase negative staph (1/2, anaerobic and aerobic) 1/28 Blood cultures NGTD. ABX Unasyn 11/09-11/11 DISCUSSION: Patient with RA on prednisone a/w CP/SOB. Slightly increased lactate, found to be in Afib with troponin elevation. Recently treated UTI. Patients initial Bcx grew CoNS. CoNS is not c/w clinical picture. She does have hardware in spine and L TKA notably She is currently off antibiotics. Her inflammatory markers may be secondary to RA or positive coronavirus. We should check CBC with diff. and monitor off antibiotics RECOMMENDATION: -Repeat CBC with diff -Monitor off antibiotics no obvious bacterial infection Will d/w primary team. Thank you for this consultation, ID will follow Gloria Flaherty MD Department of Infectious Diseases [facility], [facility] Consultation Information This patient recommendation is based on a telemedicine consult request which was completed asynchronously through chart review and information provided by the primary physician. The patient was not seen or examined today. The evaluation is consultative in nature and all patient care and treatment decisions can either be accepted or rejected by the patient's primary hospital-based treating physician using their own independent medical judgment for their patient. [employer] contact information: Please call [facility] Call Center . (Phone Number For Physician Use Only) Asynchronous visit, Total time 50 min reviewing chart, documentation, and discussing with primary team. Time Spent Reviewing Chart: 31+ minutes History of Present Illness Reason for Consultation: Bacteremia Requesting Physician: Dr. Gilberto Hernadez Attending Physician: Gilberto Hernadez History of Present Illness 67 year old female with h/o L TKA, L2-L5 laminectomy with fusion (IBR and screws), DM A1C 7.6%,, CKD, HLD, HTN, rheumatoid arthritis on 5mg prednisone, UTIs in past, admission for urosepsis, most recently treated for urine culture panS Ecoli on 10/28 with Nitrofurantoin a/w dizziness, SOB, CP. Infectious diseases has been consulted for CoNS bacteremia. Patient recently admitted to [facility] in 09/2022 for weakness, fatigue. She was septic concerning for UTI. CT A/P Showed no stones at that time. Blood cultures were negative. Her UCx showed She was ultimately discharged on Keflex and has been following with Urology. Prior notable infections include 2019 lumbar surgery and had an unhealed portion of her surgical incision with some drainage which cultured positive for MRSA. She was initially treated with Vancomycin and Ceftriaxone and was prescribed Bactrim DS x 10 days. No ID care at that time and no issues since then related to surgical site. Patient admitted on 11/07, she was afebrile mildly tachycardic. Initial WBC 12.5, creatinine 2.3 mild elevation in troponin. She tested positive for coronavirus H KU 1. Chest x-ray is clear. Initial lactate of 3.3. The patient had been ordered the IV fluids. Urinalysis does not show obvious infection as the patient has whites with numerous epithelial cells no evidence of bacteria or nitrites but given the patient's mild leukocytosis as well as tachycardia the patient had been ordered the Rocephin. UA only with 5-10 wbcs, ucx not run.Admission Blood cultures now growing Coagulase negative staph (10/14, anaerobic and aerobic) 11/09 Blood cultures NGTD. In the ER she was noted to be in atrial fibrillation with rapid ventricular rate MRI brain negative. CT head negative, CXR no acute infection. Patient has remained afebrile, WBC slightly increased to 13 CRP 3.9 ABX Unasyn 11/09-11/11 Allergies Allergy/AdvReac Type Severity Reaction Status Date / Time tetracycline Allergy Severe RASH ON Verified 11/07/22 11:48 FACE Kzpmerw-OCE-TnV Reductase AdvReac Intermediate LE edema Verified 11/07/22 11:48 Inhibitor [Fjeedtz-Yty-Qhd Reductase Inhibitor] oxycodone AdvReac Drowsy Verified 11/07/22 11:48 Home Medications Medication Instructions Recorded Confirmed Type cholecalciferol (vitamin D3) 25 1,000 unit PO QAM 10/26/18 11/07/22 History mcg (1,000 unit) capsule (Vitamin D3) magnesium 250 mg tablet 250 mg PO QAM 10/26/18 11/07/22 History acetaminophen 500 mg tablet 1,000 mg PO Q6H PRN Pain 12/24/18 11/07/22 History (Tylenol Extra Strength) cyclobenzaprine 10 mg tablet 10 mg PO HS 04/21/21 11/07/22 History prednisone 5 mg tablet 5 mg PO QPM 04/21/21 11/07/22 History albuterol sulfate 90 mcg/actuation 2 puff inhalation QID PRN 04/02/22 11/07/22 Rx aerosol inhaler (Ventolin HFA) shortness of breath or wheezing #8.5 grams levothyroxine 100 mcg tablet 100 mcg PO QAM #90 tabs 09/16/22 11/07/22 Rx aspirin 81 mg tablet,delayed 81 mg PO QAM 09/17/22 11/07/22 History release L.acidop,casei,lactis,rham-B.lact,reyes 2 cap PO DAILY #60 caps 09/20/22 11/07/22 Rx 625 mg (10 billion cell) capsule (Advanced Probiotic) furosemide 20 mg tablet (Lasix) 20 mg PO DAILY PRN edema of legs 09/20/22 11/07/22 Rx #14 tabs gabapentin 100 mg capsule 100 mg PO HS #1 cap 09/20/22 11/07/22 Rx metoprolol succinate 50 mg 125 mg PO UD #1 tab 09/20/22 11/07/22 Rx tablet,extended release 24 hr lisinopril 40 mg tablet 40 mg PO QAM 09/30/22 11/07/22 History omeprazole 40 mg capsule,delayed See Rx Instructions .Route 10/24/22 11/07/22 Rx release .COMPLEX #90 caps nitrofurantoin 100 mg PO BID 11/07/22 11/07/22 History monohydrate/macrocrystals 100 mg capsule Patient History Medical History (HFpEF) heart failure with preserved ejection fraction AISHWARYA (acute kidney injury) Anemia of chronic disease Bilateral leg edema Chronic anemia Colitis Diabetes mellitus type II, controlled GERD (gastroesophageal reflux disease) History of campylobacteriosis 04/2019 ([facility] [place]) s/p antibiotics treatment History of MRSA infection lumbar surgical incision s/p vanco/ceftriaxone/bactrim per 04/2019 [facility] [place] discharge summary Hyperlipidemia Hypertension Hypertension Hypothyroidism Immunosuppression due to drug therapy Lower GI bleed Lumbar radiculopathy Nonhealing surgical wound Recurrent UTI Rheumatoid arthritis Sepsis Spinal stenosis Stage 3 chronic kidney disease Tachycardia Type 2 diabetes mellitus Surgical History History of back surgery History of x2 History of hysterectomy total History of total left knee replacement Hx of tonsillectomy Status post laminectomy with spinal fusion L2-L5 laminectomy/fusion: 12/24/18: Grade view 1, MAC#3, ETT 7.0 Family History Father Diabetes Lung cancer Cancer Hypertension Mother Diabetes Brain tumor Cancer Hypertension Malignant neoplasm of brain Aunt Breast cancer Denies family history of Ovarian cancer Prostate cancer Myocardial infarction Colorectal cancer Social History Smoking Status: Never smoker Second Hand Exposure: No; Hx Alcohol Use: Yes Alcohol type: wine Alcohol Intake Frequency: 2-4 x/Month Hx Substance Use: No Preferred Language: [place] Irish Communication Ability: Effective Visual Impairment: Limited Hearing Ability: Normal Teaching Supervisor Required: No Beliefs That Will Affect Care: None marital status: Current Living Situation: Spouse Current Living Situation Comment: 1 level home current occupational status: retired How many Children do You have: 2 Other Information That Helps Us Care for You: No other: 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 Feels Safe at Home: Yes Safety Concerns: Feels Safe At This Time Childhood Exposure to Second-Hand Smoke: Yes caffeine: Yes Dental Care, Regularly: Yes Physical Activity Frequency: 5-6 Times per Week Physical Activity Frequency Comment: gym Seatbelt Use: always Sunscreen Use: Yes Do you think of yourself as: straight/heterosexual Assistive Devices: None Results & Data ([facility]) Vital Signs (Past 12 Hours) Vital Signs Temp Pulse Pulse Resp BP Pulse Ox O2 Del Method 11/11/22 11:30 36.6 C 84 17 112/72 96 Room Air 11/11/22 07:35 36.9 C 118 H 18 150/80 H 95 Room Air 11/11/22 07:00 91 H 11/11/22 03:37 36.7 C 80 18 135/83 93 Room Air Laboratory Results Laboratory Results - last 48 hr 11/09/22 11/09/22 11/10/22 16:10 20:08 07:21 WBC RBC Hgb Hct MCV MCH MCHC RDW Std Deviation RDW Coeff of [place] Plt Count MPV Sodium Potassium Chloride Carbon Dioxide Anion Gap BUN Creatinine Est Cr Clr Drug Dosing Est GFR ( Amer) Est GFR (Non-Af Amer) BUN/Creatinine Ratio Glucose POC Glucose 162 H 168 H 198 H Calcium Total Bilirubin AST ALT Alkaline Phosphatase C-Reactive Protein Total Protein Albumin Globulin Albumin/Globulin Ratio Procalcitonin 11/10/22 11/10/22 11/10/22 11:18 16:07 19:35 WBC RBC Hgb Hct MCV MCH MCHC RDW Std Deviation RDW Coeff of [place] Plt Count MPV Sodium Potassium Chloride Carbon Dioxide Anion Gap BUN Creatinine Est Cr Clr Drug Dosing Est GFR ( Amer) Est GFR (Non-Af Amer) BUN/Creatinine Ratio Glucose POC Glucose 195 H 111 H 122 H Calcium Total Bilirubin AST ALT Alkaline Phosphatase C-Reactive Protein Total Protein Albumin Globulin Albumin/Globulin Ratio Procalcitonin 11/11/22 11/11/22 11/11/22 07:10 07:10 07:10 WBC 13.04 H RBC 4.05 L Hgb 11.2 L Hct 35.6 L MCV 87.9 MCH 27.7 MCHC 31.5 L RDW Std Deviation 50.4 H RDW Coeff of [place] 15.6 H Plt Count 298 MPV 11.2 Sodium TNP Potassium TNP Chloride 102 Carbon Dioxide 24 Anion Gap TNP BUN 40 H Creatinine 1.69 H Est Cr Clr Drug Dosing 34.1 Est GFR ( Amer) 35.8 Est GFR (Non-Af Amer) 30.9 BUN/Creatinine Ratio 23.7 H Glucose 209 H POC Glucose Calcium 10.0 Total Bilirubin 0.4 AST TNP ALT 21 Alkaline Phosphatase 73 C-Reactive Protein 3.94 H Total Protein 6.6 Albumin 3.3 L Globulin 3.3 Albumin/Globulin Ratio 1.0 Procalcitonin 0.16 11/11/22 11/11/22 11/11/22 07:10 07:31 11:27 WBC RBC Hgb Hct MCV MCH MCHC RDW Std Deviation RDW Coeff of [place] Plt Count MPV Sodium 137 Potassium 5.2 H Chloride Carbon Dioxide Anion Gap BUN Creatinine Est Cr Clr Drug Dosing Est GFR ( Amer) Est GFR (Non-Af Amer) BUN/Creatinine Ratio Glucose POC Glucose 197 H 168 H Calcium Total Bilirubin AST 20 ALT Alkaline Phosphatase C-Reactive Protein Total Protein Albumin Globulin Albumin/Globulin Ratio Procalcitonin Microbiology 11/09/22 17:52 Blood Aerobic Blood Culture - Preliminary No growth in Aerobic bottle after 24 hours. 11/09/22 17:52 Blood Anaerobic Blood Culture - Preliminary No growth in Anaerobic bottle after 24 hours. 11/09/22 17:37 Blood Aerobic Blood Culture - Preliminary No growth in Aerobic bottle after 24 hours. 11/09/22 17:37 Blood Anaerobic Blood Culture - Preliminary No growth in Anaerobic bottle after 24 hours. 11/07/22 14:55 Blood Aerobic Blood Culture - Preliminary No growth in Aerobic bottle after 48 hours. 11/07/22 14:55 Blood Anaerobic Blood Culture - Preliminary Coag neg staph not lugdunensis 11/07/22 14:55 Blood Aerobic Blood Culture - Preliminary Coag neg staph not lugdunensis 11/07/22 14:55 Blood Anaerobic Blood Culture - Preliminary No growth in Anaerobic bottle after 48 hours. Medications Administered Current Inpatient Medications Acetaminophen (Acetaminophen 325 Mg Tab) 650 mg PO Q4H PRN PRN Reason: Pain or Fever Stop: 12/07/22 17:13 Last Admin: 11/10/22 17:02 Dose: 650 mg Apixaban (Apixaban 5 Mg Tablet) 5 mg PO BID [facility] Stop: 12/09/22 20:59 Last Admin: 11/11/22 08:24 Dose: 5 mg Aspirin (Aspirin 81 Mg Ectab) 81 mg PO QAM [facility] Stop: 12/08/22 08:59 Last Admin: 11/11/22 08:25 Dose: 81 mg Cyclobenzaprine HCl (Cyclobenzaprine Hcl 10 Mg Tab) 10 mg PO HS [facility] Stop: 12/07/22 20:59 Last Admin: 11/10/22 21:04 Dose: 10 mg Dextrose (Dextrose 50% 50 Ml Syringe) 25 - 50 ml IV UD PRN; Protocol PRN Reason: Hypoglycemia Protocol Stop: 12/07/22 17:13 Diltiazem HCl (Diltiazem Hcl 30 Mg Tab) 30 mg PO TID [facility] Stop: 12/10/22 09:59 Last Admin: 11/11/22 08:25 Dose: 30 mg Glucagon (Glucagon For Inj 1 Mg Vial) 1 mg SQ UD PRN; Protocol PRN Reason: Hypoglycemia Protocol Stop: 12/07/22 17:13 Glucose (Glucose 40% Gel 15 Gm Tube) 15 - 30 gm PO UD PRN; Protocol PRN Reason: Hypoglycemia Protocol Stop: 12/07/22 17:13 Glucose (Glucose 10 Tab/Tube) 4 - 8 tab PO UD PRN; Protocol PRN Reason: Hypoglycemia Treatment Stop: 12/07/22 17:13 Insulin Aspart (Insulin Aspart Per Unit) 0 units SC ACHS [facility] Stop: 12/07/22 17:13 Last Admin: 11/11/22 12:12 Dose: 4 units Lactobacillus Acidophilus (Advanced Probiotic 1250 Mg Capsule) 2 cap PO DAILY [facility] Stop: 12/08/22 08:59 Last Admin: 11/11/22 08:25 Dose: 2 cap Levothyroxine Sodium (Levothyroxine Sodium 100 Mcg Tablet) 100 mcg PO DAILYBB [facility] Stop: 12/08/22 06:29 Last Admin: 11/11/22 06:18 Dose: 100 mcg Magnesium Oxide (Magnesium Oxide 400 Mg Tab) 400 mg PO QAM [facility] Stop: 12/08/22 08:59 Last Admin: 11/11/22 08:25 Dose: 400 mg Metoprolol Succinate (Metoprolol Succ 50mg Ext Rel Tab) 100 mg PO BID [facility] Stop: 12/11/22 08:59 Last Admin: 11/11/22 09:57 Dose: 100 mg Miscellaneous (Carbohydrates For Hypoglycemia ) 15 - 30 gm PO UD PRN PRN Reason: Hypoglycemia Protocol Stop: 12/07/22 17:13 Ondansetron HCl (Ondansetron Inj 2 Mg/Ml 2 Ml Vial) 4 mg IV Q6H PRN PRN Reason: Nausea Stop: 12/07/22 17:13 Pantoprazole Sodium (Pantoprazole 40 Mg Tab) 40 mg PO DAILY [facility] Stop: 12/08/22 08:59 Last Admin: 11/11/22 08:25 Dose: 40 mg Prednisone (Prednisone 5 Mg Tab) 5 mg PO QPM [facility] Stop: 12/07/22 20:59 Last Admin: 11/10/22 21:05 Dose: 5 mg Vitamin D (Cholecalciferol 1,000 Units 25 Mcg Tab) 1,000 units PO QAM [facility] Stop: 12/08/22 08:59 Last Admin: 11/11/22 08:25 Dose: 1,000 units
[2022-11-11 19:31] LABS: BUN Creatinine Ratio 18.4 (10-20); Calcium 9.7 mg/dl (8.5-10.1); Creatinine Clr Calc Pharmacy 27.8 ml/min; Est GFR (Non-African American) 24.2 ml/min; Potassium 3.9 mmol/L (3.5-5.1)
[2022-11-11] MEDS: CYCLOBENZAPRINE HCL 10 MG TAB PO SCH (21:01)
[2022-11-11] MEDS: predniSONE 5 MG TAB PO SCH (21:01)
--- NOTE | 2022-11-11 22:30 | Hospitalist Progress Note ---
Date of Service November 11, 2022 Assessment & Plan (1) New onset atrial fibrillation: Plan: TTE TSH 7.104, free T4 0.72. Recommend repeating in 4-6 weeks. Give her usual metoprolol succinate now, will add diltiazem drip if rate still elevated following this Start heparin IV as long as CT head negative Added PO diltiazem and metorpolol PO. will monitor. concern this may be related to her bacteremia Interesting though that some set is an anaerobic bottle and the other is an aerobic bottle that was positive. Patient though did have some inflammatory markers that were elevated, consult ID antibiotics have been held since 11/10 will monitor. (2) Exertional chest pain: Plan: Concerning symptoms of unstable angina vs. rate related demand-ischemia TTE Stat high sensitivity troponin, will serially trend Aspirin 324mg PO Bed rest Consult cardiology (3) Dizziness: Plan: Room spinning sensation with sudden onset in a. fib and associated nausea/dry heaves concerning for vertigo -> stroke - CT head, MRI brain However orthostatic and lightheaded component may just be related to her new onset atrial fibrillation Stop lisinopril in favor for rate controlling medications as above Hold gabapentin in case contributing towards dizziness (4) Diabetes mellitus type II, controlled: Plan: HbA1C 7.6 in September. Not on medication at home. Glucose 364mg/dL on admission. BSG ACHS Novolog: --Goal BSG Range: Low 110 mg/dL, High 140 mg/dL --Correction Factor: 45 mg/dL/unit --Carbohydrate ratio = 15 g/unit --BSGs ACHS if eating, q6h if npo (5) Acute on chronic kidney failure: Plan: Suspect pre-renal given nausea and dry heaving NSS 2L bolus given in ER. Will repeat with AM labs. Cr 2.33 from 1.54 Plan VTE Prophylaxis - deferred pending CT head Diet - heart healthy, T2DM Disposition - WILL ADMIT as patient is now on dilatiazem drip and increasing doses of metoprolol Admission and Anticipated Discharge Date Admission Date: November 08, 2022 Subjective Patient reports feeling well. She has no new complaints. Review of Systems Review of Systems: All systems reviewed & are unremarkable except as noted in HPI & below Physical Exam Physical Exam: Constitutional: WD/WN, vitals as above Eyes: PERRL, conjunctivae normal, anicteric sclerae ENMT: external ear and nose normal, oropharynx normal Respiratory: normal respiratory effort, lungs clear to auscultation Cardiovascular: Rate/Rhythm: + tachycardic and + irregularly irregular Extr emities: normal capillary refill and + pedal edema (1+ b/l pedal edema); no calf tenderness Gastrointestinal (Abdomen): normal bowel sounds, soft, nontender, no hepatosplenomegaly Musculoskeletal: no cyanosis or clubbing, extremities motor strength 5/5 Skin: no rashes, warm and dry Neurologic: moves all extremities and awake; no focal motor deficits and not confused Speech / Cognition: normal speech Motor/Sensory: no pronator drift Cranial Nerves: PERRL, EOM intact bilaterally, normal facial strength, tongue midline, able to rotate head bilaterally, able to elevate shoulders bilaterally, no nystagmus and symmetric palate elevation Coordination: normal [id number] test Psychiatric: A+Ox3, euthymic affect Genitourinary: no CVA tenderness Results & Data Results & Data ([facility]) Vital Signs (Past 12 Hours) Vital Signs Temp Pulse Resp BP BP Pulse Ox Pulse Ox 11/11/22 19:04 36.5 C 103 H 18 162/87 H 96 11/11/22 17:00 95 11/11/22 15:41 36.7 C 91 H 18 159/95 H 94 11/11/22 11:30 36.6 C 84 17 112/72 96 O2 Del Method O2 Del Method 11/11/22 19:04 Room Air 11/11/22 17:00 Room Air 11/11/22 15:41 Room Air 11/11/22 11:30 Room Air PG Care Time/CCT Total # of Minutes Spent Total Time Spent with Patient: Total time spent is greater than 50% in coordination of care (as documented) at patient's floor/unit and/or counseling patient: Coding Level of Care Code 39773 SUB INP/OBS CARE 2/35MIN Diagnoses New onset atrial fibrillation I48.91 Exertional chest pain R07.9 Dizziness R42 Diabetes mellitus type II, controlled E11.9; Z79.4 Diabetes mellitus complication status: without complication Diabetes mellitus technician terminal and repeater insulin use: with shelter use Acute on chronic kidney failure N17.9; N18.9 (1) Diabetes mellitus type II, controlled Diabetes mellitus complication status: without complication Diabetes mellitus shelter insulin use: with shelter use Qualified Code(s): E11.9 - Type 2 diabetes mellitus without complications; Z79.4 - terminal makeup operator (current) use of insulin
[2022-11-12 06:11] LABS: Hematocrit (blood only) 35.7 % (37.0-47.0); Hemoglobin 11.1 g/dl (12.0-16.0); Mean Corpuscular Hgb Conc 31.1 g/dL (32.0-36.0); Mean Corpuscular Volume 86.9 fL (80.0-100.0); Mean Platelet Volume 9.9 fL (9.4-12.4); Platelet Count 403 K/uL (130-400); RDW Coefficient of Variation 15.7 % (11.5-14.5); Red Blood Count 4.11 M/uL (4.20-5.40); White Blood Count 15.94 K/ul (4.8-10.8)
[2022-11-12] MEDS: LEVOTHYROXINE SODIUM 100 MCG TABLET PO SCH (06:25)
[2022-11-12 06:26] LABS: BUN Creatinine Ratio 23.4 (10-20); C Reactive Protein 2.42 mg/dl (0-0.5); Creatinine Clr Calc Pharmacy 32.6 ml/min; Est GFR (African American) 34.3 ml/min; Est GFR (Non-African American) 29.6 ml/min; Potassium 4.7 mmol/L (3.5-5.1)
[2022-11-12] MEDS: APIXABAN 5 MG TABLET PO SCH (10:15)
[2022-11-12] MEDS: ASPIRIN 81 MG ECTAB PO SCH (10:18)
[2022-11-12] MEDS: dilTIAZem HCL 30 MG TAB PO SCH ×2 (10:20→14:28)
[2022-11-12] MEDS: CHOLECALCIFEROL 1,000 UNITS 25 MCG TAB PO SCH (10:20)
[2022-11-12] MEDS: ADVANCED PROBIOTIC 1250 MG CAPSULE PO SCH (10:22)
[2022-11-12] MEDS: MAGNESIUM OXIDE 400 MG TAB PO SCH (10:23)
[2022-11-12] MEDS: METOPROLOL SUCC 50MG EXT REL TAB PO SCH (10:25)
[2022-11-12] MEDS: PANTOprazole 40 MG TAB PO SCH (10:26)
[2022-11-12] MEDS: INSULIN ASPART PER UNIT SC SCH ×2 (10:44→12:10)
--- NOTE | 2022-11-12 13:13 | Discharge Summary ---
Date of Service November 12, 2022 Admission HPI Per Admitting Provider Daniela Champagne is a 67 year old female who presents to the ER with dizziness, nausea, chest pain on exertion and shortness of breath. Symptoms started suddenly last Friday (6 days ago) and getting progressively worse. She describes her dizziness as both room spinning sensation but also lightheadedness, worse on standing up and on exertion. These symptoms have been very intermittent, presyncopal after coming out of the shower today and her reported she appeared very weak and pale therefore called EMS who brought her to the ER. She recently had a urine culture positive for pansensitive E. coli October 28. She was prescribed a 10 day course of nitrofurantoin and reports improvement in her suprapubic pain with this. The nausea is not usually a part of her urinary infection symptoms and this feels very different. No abdominal pain or diarrhea. While walking in the emergency room she reports chest pressure and shortness of breath on light exertion. She denies any one sided weakness, change in sensation, facial droop, change in speech, hearing or vision. No prior episodes of vertigo. She ate a cinnamon roll and pizza last night but no food since then. Nausea does not appear to be related to food. In the ER she was noted to be in atrial fibrillation with rapid ventricular rate and was given 5mg metoprolol tartrate IV. She did not take her usual medications this morning. Principal Diagnosis New onset Atrial fibrillation. Discharge Exam Constitutional: WD/WN, vitals as above Eyes: PERRL, conjunctivae normal, anicteric sclerae ENMT: external ear and nose normal, oropharynx normal Respiratory: normal respiratory effort, lungs clear to auscultation Cardiovascular: Rate/Rhythm: + tachycardic and + irregularly irregular Extremities: normal capillary refill and + pedal edema (1+ b/l pedal edema); no calf tenderness Gastrointestinal (Abdomen): normal bowel sounds, soft, nontender, no hepatosplenomegaly Musculoskeletal: no cyanosis or clubbing, extremities motor strength 5/5 Skin: no rashes, warm and dry Neurologic: moves all extremities and awake; no focal motor deficits and not confused Speech / Cognition: normal speech Motor/Sensory: no pronator drift Cranial Nerves: PERRL, EOM intact bilaterally, normal facial strength, tongue midline, able to rotate head bilaterally, able to elevate shoulders bilaterally, no nystagmus and symmetric palate elevation Coordination: normal swfawv-[id number] test Psychiatric: A+Ox3, euthymic affect Genitourinary: no CVA tenderness Discharge Data Allergies Allergy/AdvReac Type Severity Reaction Status Date / Time tetracycline Allergy Severe RASH ON Verified 11/07/22 11:48 FACE Xyzynne-XSW-DtC Reductase AdvReac Intermediate LE edema Verified 11/07/22 11:48 Inhibitor [Lzzqznz-Azv-Zze Reductase Inhibitor] oxycodone AdvReac Drowsy Verified 11/07/22 11:48 Consultations 11/07/22 12:57 ED Decision to Admit Stat 11/08/22 01:58 Consult Cardiology Routine 11/11/22 09:53 Consult Infectious Diseases Routine Ordered Studies 11/07/22 13:37 CT head/brain wo con Stat 11/07/22 14:30 MRI Brain [MR brain wo con] Urgent Hospital Course (1) New onset atrial fibrillation: TTE TSH 7.104, free T4 0.72. Recommend repeating in 4-6 weeks. Give her usual metoprolol succinate now, will add diltiazem drip if rate still elevated following this Start heparin IV as long as CT head negative Added PO diltiazem and metorpolol PO. will monitor. concern this may be related to her bacteremia Interesting though that some set is an anaerobic bottle and the other is an aerobic bottle that was positive. Patient though did have some inflammatory markers that were elevated, Consult ID antibiotics have been held since 11/10 As patient has been fever free, and procal and inflammatory markers have been decreasing. Will discharge patient home. will repeat CBC on Friday, will discharge on metoprolol and diltiazem as stated below (2) Exertional chest pain: Concerning symptoms of unstable angina vs. rate related demand-ischemia TTE Stat high sensitivity troponin, will serially trend Aspirin 324mg PO Bed rest Consult cardiology (3) Dizziness: Room spinning sensation with sudden onset in a. fib and associated nausea/dry heaves concerning for vertigo -> stroke - CT head, MRI brain However orthostatic and lightheaded component may just be related to her new onset atrial fibrillation Stop lisinopril in favor for rate controlling medications as above Hold gabapentin in case contributing towards dizziness (4) Diabetes mellitus type II, controlled: HbA1C 7.6 in September. Not on medication at home. Glucose 364mg/dL on admission. BSG ACHS Novolog: --Goal BSG Range: Low 110 mg/dL, High 140 mg/dL --Correction Factor: 45 mg/dL/unit --Carbohydrate ratio = 15 g/unit --BSGs ACHS if eating, q6h if npo (5) Acute on chronic kidney failure: Suspect pre-renal given nausea and dry heaving NSS 2L bolus given in ER. Will repeat with AM labs. Cr 2.33 from 1.54 creat improved to 1.75 at discharge. Total Time Total Time Spent Total Time Spent (In Minutes): 32 Discharge Plan Discharge Items Patient Disposition: Home - Self-Care Reason For Visit: A FIB RVR, CHEST PAIN, DIZZINESS, NAUSEA, VOMITING Discharge Diagnosis: A Fib with RVR, chest pain, dizziness, nausea, vomting Activity: Resume your previous activity Non-emergency contact: Primary Care Provider Call non-emergency contact if: you have any medication questions Follow-up/Referrals: Corby Arzola MD [Primary Care Provider] - 11/15/22 3:00 pm (will be seen by CARLIE Pinto) Rusty Pedraza MD [Physician] - 11/18/22 1:00 pm (will see Sarthak Arango) Diet: Carb Consistent or DM2 and Heart Healthy Addtl Attending Provider Instructions: Good afternoon Mrs. Champagne, You were seen for a rapid heart rate which was diagnosed to be atrial fibrillation. You heart rate has been elevated and difficult to control which led to a longer hospital stya. Thankfully, it appears this has improved and we can discharged you on Metoprolol 100 mg Twice a day and diltiazem 120 mg once a day. You will also be on blood thinners: eliquis twice a day. I will recommend followup with your PCP in 1-2 weeks and Cardiology in 2 weeks. In regards to you possible infection, repeat blod cultures have been negative. Now you have been off antibiotics since 11/10 and you have not had fevers. Your white blood cell count is going up, this can occur with infection but also can occur with steroid use. However your inflammatory markers and procalcitonin which goes up with infection, are going down. ALso you are feeling well, and have not had a fever, I will recommend close followup with your PCP. If you develop a fever, or feel weakner, please come back because that could be a sign of an infection. Best regards, Gilberto Schwartzbasilia Pending Studies at Discharge: No Stand-Alone Forms: My [facility], Smoking Cessation Medications and DC Order Prescriptions: New metoprolol succinate 100 mg tablet extended release 24 hr 100 mg PO BID Qty: 60 0RF diltiazem HCl 120 mg capsule,extended release 24 hr 120 mg PO DAILY Qty: 30 0RF Eliquis 5 mg Tablet 5 mg PO BID Qty: 60 0RF Continued levothyroxine 100 mcg tablet 100 mcg PO QAM Qty: 90 3RF omeprazole 40 mg capsule,delayed release(DR/EC) See Rx Instructions .ROUTE .COMPLEX Qty: 90 3RF Dose Instruction: TAKE 1 CAPSULE BY MOUTH ONCE DAILY Rx Instructions: TAKE 1 CAPSULE BY MOUTH ONCE DAILY albuterol sulfate [Ventolin HFA] 90 mcg/actuation HFA aerosol inhaler 2 puff inhalation QID PRN (Reason: shortness of breath or wheezing) Qty: 8.5 1RF Fluzone HighDose Quad 22-23 PF 240 mcg/0.7 mL syringe 0.7 ml IM ONCE Qty: 0.7 0RF magnesium 250 mg Tablet 250 mg PO QAM cholecalciferol (vitamin D3) [Vitamin D3] 1,000 unit Capsule 1,000 unit PO QAM acetaminophen [Tylenol Extra Strength] 500 mg Tablet 1,000 mg PO Q6H PRN (Reason: Pain) aspirin 81 mg tablet,delayed release (DR/EC) 81 mg PO QAM Rx Instructions: purchase [id number]-lww-[id number] Advanced Probiotic 625 mg (10 billion cell) Capsule 2 cap PO DAILY Qty: 60 0RF gabapentin 100 mg capsule 100 mg PO HS Qty: 1 0RF furosemide [Lasix] 20 mg tablet 20 mg PO DAILY PRN (Reason: edema of legs) Qty: 14 0RF nitrofurantoin monohyd/m-cryst 100 mg capsule 100 mg PO BID cyclobenzaprine 10 mg tablet 10 mg PO HS prednisone 5 mg tablet 5 mg PO QPM Discontinued lisinopril 40 mg tablet 40 mg PO QAM metoprolol succinate 50 mg tablet extended release 24 hr 125 mg PO UD Qty: 1 0RF Rx Instructions: takes 1 & 1/2 tablets in the morning (75mg) and 1 tablet at bedtime (50mg) Discharge Orders: Discharge Order (Routine); Ordered 11/12/22 Ordered By: Gilberto Hernadez Admission Data Admit Date/Time: 11/08/22 10:53 Attending Provider: Gilberto Hernadez Admit Provider: Adam Keane Primary Care Provider: Corby Arzola Other Providers: Adam Keane ; Gold Davis ; Binta Gordon ; Michele Schwarz ; Joaquina Garcia ; Kelin Ball ; Heather Garcia ; Gloria Flaherty ; Christina Zamora ; Ruel Augustin ; Kathie Christy Other Interventions: Discharge Summary Assessment (RN) Last Done: 11/12/22 13:42 Coding Level of Care Code HOSP INP/OBS DISCH >30 MIN Diagnoses New onset atrial fibrillation I48.91 Exertional chest pain R07.9 Dizziness R42 Diabetes mellitus type II, controlled E11.9; Z79.4 Diabetes mellitus complication status: without complication 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
--- NOTE | 2022-11-12 14:29 | Infectious Disease Progress Nt ---
Date of Service November 12, 2022 Assessment & Plan (1) Coronavirus infection: (2) Weakness: (3) Atrial fibrillation with rapid ventricular response: Plan 67 year old female with h/o L TKA, L2-L5 laminectomy with fusion (IBR and screws), DM A1C 7.6%,, CKD, HLD, HTN, rheumatoid arthritis on 5mg prednisone, UTIs in past, admission for urosepsis, most recently treated for urine culture panS Ecoli on 10/28 with Nitrofurantoin a/w dizziness, SOB, CP. Infectious diseases has been consulted for CoNS bacteremia. Patient recently admitted to [facility] in 09/2022 for weakness, fatigue. She was septic concerning for UTI. CT A/P Showed no stones at that time. Blood cultures were negative. Her UCx showed She was ultimately discharged on Keflex and has been following with Urology. Prior notable infections include 2019 lumbar surgery and had an unhealed portion of her surgical incision with some drainage which cultured positive for MRSA. She was initially treated with Vancomycin and Ceftriaxone and was prescribed Bactrim DS x 10 days. No ID care at that time and no issues since then related to surgical site. Patient admitted on 11/07, she was afebrile mildly tachycardic. Initial WBC 12.5, creatinine 2.3 mild elevation in troponin. She tested positive for coronavirus H [facility] 1. Chest x-ray is clear. Initial lactate of 3.3. The patient had been ordered the IV fluids. Urinalysis does not show obvious infection as the patient has whites with numerous epithelial cells no evidence of bacteria or nitrites but given the patient's mild leukocytosis as well as tachycardia the patient had been ordered the Rocephin. UA only with 5-10 wbcs, ucx not run.Admission Blood cultures now growing Coagulase negative staph (1/2, anaerobic and aerobic) 11/09 Blood cultures NGTD. In the ER she was noted to be in atrial fibrillation with rapid ventricular rate MRI brain negative. CT head negative, CXR no acute infection. Patient has remained afebrile, WBC slightly increased to 13 CRP 3.9 PROBLEM LIST 1. CoNS bacteria likely contaminant 11/07, repeat cx no growth 11/09 2. Leukocytosis, mild 3. RA 4. Atrial fibrillation MICRO Coagulase negative staph (1/2, anaerobic and aerobic) 1/28 Blood cultures NGTD. ABX Unasyn 11/09-11/11 DISCUSSION: Patient with RA on prednisone a/w CP/SOB. Slightly increased lactate, found to be in Afib with troponin elevation. Recently treated UTI. Patients initial Bcx grew CoNS. CoNS is not c/w clinical picture. She does have hardware in spine and L TKA notably She is currently off antibiotics. Her inflammatory markers may be secondary to RA or positive coronavirus. We should check CBC with diff. and monitor off antibiotics. her WBC is elevated today to 16. However exam is unremarkable and patient feels quite well. RECOMMENDATION: -WBC possibly d/t inflammatory response. -Monitor off antibiotics no obvious bacterial infection - I would recommend a repeat WBC in 2-3 days as an outpatient -Counseled patient if fevers, chills, feeling malaise to RT to ED, otherwise she should follow up with her PMD within the week to follow CBC. Will d/w primary team. Discharge planning per Primary team Gloria Flaherty MD Department of Infectious Diseases [facility], [facility] Admission and Anticipated Discharge Date Admission Date: November 08, 2022 Subjective Subsequent visit was provided via telemedicine using two-way real-time interactive telecommunication between the patient and the telemedicine provider. For the duration of the visit, the provider was performing the assessment from a different facility than the patient. This includesuse of bluetooth stethoscope forauscultationperformed by the telepresenter that the telemedicine provider can hear if described in the physical exam. Fusing Machine Operator contact information: Please call [facility] Center [phone]. (Phone Number For Physician Use Only) After establishing a telemedicine visit, patient was: Patient was verified with two unique identifiers, Patient/authorized rep acknowledged consent and understanding and Gave permission to continue telehealth session Time Spent with Patient: Subsequent => 35 min patient feels well. No issues. Denies lung, gi, cv, gu symptoms. Ready to go home. Results & Data ([facility]) Vital Signs (Past 12 Hours) Vital Signs Temp Pulse Pulse Resp BP BP Pulse Ox 11/12/22 13:42 37.1 C 102 H 16 146/81 H 108/73 97 11/12/22 11:06 37.1 C 102 H 16 146/81 H 97 11/12/22 07:00 101 H 11/12/22 10:13 96 H 150/86 H 11/12/22 07:45 99 H 17 136/84 95 11/12/22 04:04 36.7 C 92 H 18 127/87 95 O2 Del Method 11/12/22 13:42 11/12/22 11:06 Room Air 11/12/22 07:00 11/12/22 10:13 11/12/22 07:45 Room Air 11/12/22 04:04 Room Air Laboratory Results Laboratory Results - last 48 hr 11/10/22 11/10/22 11/11/22 16:07 19:35 07:10 WBC 13.04 H RBC 4.05 L Hgb 11.2 L Hct 35.6 L MCV 87.9 MCH 27.7 MCHC 31.5 L RDW Std Deviation 50.4 H RDW Coeff of Sumaya 15.6 H Plt Count 298 MPV 11.2 Sodium Potassium Chloride Carbon Dioxide Anion Gap BUN Creatinine Est Cr Clr Drug Dosing Est GFR ( Amer) Est GFR (Non-Af Amer) BUN/Creatinine Ratio Glucose POC Glucose 111 H 122 H Calcium Total Bilirubin AST ALT Alkaline Phosphatase C-Reactive Protein Total Protein Albumin Globulin Albumin/Globulin Ratio Procalcitonin 11/11/22 11/11/22 11/11/22 07:10 07:10 07:10 WBC RBC Hgb Hct MCV MCH MCHC RDW Std Deviation RDW Coeff of [place] Plt Count MPV Sodium TNP 137 Potassium TNP 5.2 H Chloride 102 Carbon Dioxide 24 Anion Gap TNP BUN 40 H Creatinine 1.69 H Est Cr Clr Drug Dosing 34.1 Est GFR ( Amer) 35.8 Est GFR (Non-Af Amer) 30.9 BUN/Creatinine Ratio 23.7 H Glucose 209 H POC Glucose Calcium 10.0 Total Bilirubin 0.4 AST TNP 20 ALT 21 Alkaline Phosphatase 73 C-Reactive Protein 3.94 H Total Protein 6.6 Albumin 3.3 L Globulin 3.3 Albumin/Globulin Ratio 1.0 Procalcitonin 0.16 11/11/22 11/11/22 11/11/22 07:31 11:27 16:14 WBC RBC Hgb Hct MCV MCH MCHC RDW Std Deviation RDW Coeff of Sumaya Plt Count MPV Sodium Potassium Chloride Carbon Dioxide Anion Gap BUN Creatinine Est Cr Clr Drug Dosing Est GFR ( Amer) Est GFR (Non-Af Amer) BUN/Creatinine Ratio Glucose POC Glucose 197 H 168 H 105 H Calcium Total Bilirubin AST ALT Alkaline Phosphatase C-Reactive Protein Total Protein Albumin Globulin Albumin/Globulin Ratio Procalcitonin 11/11/22 11/11/22 11/12/22 18:00 20:03 05:48 WBC 15.94 H RBC 4.11 L Hgb 11.1 L Hct 35.7 L MCV 86.9 MCH 27.0 MCHC 31.1 L RDW Std Deviation 49.0 H RDW Coeff of Sumaya 15.7 H Plt Count 403 H MPV 9.9 Sodium 136 Potassium 3.9 D Chloride 101 Carbon Dioxide 25 Anion Gap 10 BUN 38 H Creatinine 2.07 H D Est Cr Clr Drug Dosing 27.8 Est GFR ( Amer) 28.0 Est GFR (Non-Af Amer) 24.2 BUN/Creatinine Ratio 18.4 Glucose 169 H POC Glucose 128 H Calcium 9.7 Total Bilirubin AST ALT Alkaline Phosphatase C-Reactive Protein Total Protein Albumin Globulin Albumin/Globulin Ratio Procalcitonin 11/12/22 11/12/22 11/12/22 05:48 05:48 07:39 WBC RBC Hgb Hct MCV MCH MCHC RDW Std Deviation RDW Coeff of Sumaya Plt Count MPV Sodium 136 Potassium 4.7 D Chloride 101 Carbon Dioxide 26 Anion Gap 9 BUN 41 H Creatinine 1.75 H D Est Cr Clr Drug Dosing 32.6 Est GFR ( Amer) 34.3 Est GFR (Non-Af Amer) 29.6 BUN/Creatinine Ratio 23.4 H Glucose 216 H POC Glucose 184 H Calcium 10.0 Total Bilirubin AST ALT Alkaline Phosphatase C-Reactive Protein 2.42 H Total Protein Albumin Globulin Albumin/Globulin Ratio Procalcitonin 0.11 11/12/22 11:37 WBC RBC Hgb Hct MCV MCH MCHC RDW Std Deviation RDW Coeff of Sumaya Plt Count MPV Sodium Potassium Chloride Carbon Dioxide Anion Gap BUN Creatinine Est Cr Clr Drug Dosing Est GFR ( Amer) Est GFR (Non-Af Amer) BUN/Creatinine Ratio Glucose POC Glucose 200 H Calcium Total Bilirubin AST ALT Alkaline Phosphatase C-Reactive Protein Total Protein Albumin Globulin Albumin/Globulin Ratio Procalcitonin Microbiology 11/09/22 17:52 Blood Aerobic Blood Culture - Preliminary No growth in Aerobic bottle after 48 hours. 11/09/22 17:52 Blood Anaerobic Blood Culture - Preliminary No growth in Anaerobic bottle after 48 hours. 11/09/22 17:37 Blood Aerobic Blood Culture - Preliminary No growth in Aerobic bottle after 48 hours. 11/09/22 17:37 Blood Anaerobic Blood Culture - Preliminary No growth in Anaerobic bottle after 48 hours. 11/07/22 14:55 Blood Aerobic Blood Culture - Preliminary No growth in Aerobic bottle after 48 hours. 11/07/22 14:55 Blood Anaerobic Blood Culture - Preliminary Coag neg staph not lugdunensis 11/07/22 14:55 Blood Aerobic Blood Culture - Preliminary Coag neg staph not lugdunensis 11/07/22 14:55 Blood Anaerobic Blood Culture - Preliminary No growth in Anaerobic bottle after 48 hours. Medications Administered Current Inpatient Medications Acetaminophen (Acetaminophen 325 Mg Tab) 650 mg PO Q4H PRN PRN Reason: Pain or Fever Stop: 12/07/22 17:13 Last Admin: 11/10/22 17:02 Dose: 650 mg Apixaban (Apixaban 5 Mg Tablet) 5 mg PO BID ON LICENSE OF [facility] Stop: 12/09/22 20:59 Last Admin: 11/12/22 10:15 Dose: 5 mg Aspirin (Aspirin 81 Mg Ectab) 81 mg PO QAM ON LICENSE OF [facility] Stop: 12/08/22 08:59 Last Admin: 11/12/22 10:18 Dose: 81 mg Cyclobenzaprine HCl (Cyclobenzaprine Hcl 10 Mg Tab) 10 mg PO HS ON LICENSE OF [facility] Stop: 12/07/22 20:59 Last Admin: 11/11/22 21:01 Dose: 10 mg Dextrose (Dextrose 50% 50 Ml Syringe) 25 - 50 ml IV UD PRN; Protocol PRN Reason: Hypoglycemia Protocol Stop: 12/07/22 17:13 Diltiazem HCl (Diltiazem Hcl 30 Mg Tab) 30 mg PO TID ON LICENSE OF [facility] Stop: 12/10/22 09:59 Last Admin: 11/12/22 10:20 Dose: 30 mg Glucagon (Glucagon For Inj 1 Mg Vial) 1 mg SQ UD PRN; Protocol PRN Reason: Hypoglycemia Protocol Stop: 12/07/22 17:13 Glucose (Glucose 40% Gel 15 Gm Tube) 15 - 30 gm PO UD PRN; Protocol PRN Reason: Hypoglycemia Protocol Stop: 12/07/22 17:13 Glucose (Glucose 10 Tab/Tube) 4 - 8 tab PO UD PRN; Protocol PRN Reason: Hypoglycemia Treatment Stop: 12/07/22 17:13 Insulin Aspart (Insulin Aspart Per Unit) 0 units SC ACHS ON LICENSE OF [facility] Stop: 12/07/22 17:13 Last Admin: 11/12/22 12:10 Dose: 3 units Lactobacillus Acidophilus (Advanced Probiotic 1250 Mg Capsule) 2 cap PO DAILY NASRA Stop: 12/08/22 08:59 Last Admin: 11/12/22 10:22 Dose: 2 cap Levothyroxine Sodium (Levothyroxine Sodium 100 Mcg Tablet) 100 mcg PO DAILYBB NASRA Stop: 12/08/22 06:29 Last Admin: 11/12/22 06:25 Dose: 100 mcg Magnesium Oxide (Magnesium Oxide 400 Mg Tab) 400 mg PO QAM ON LICENSE OF [facility] Stop: 12/08/22 08:59 Last Admin: 11/12/22 10:23 Dose: 400 mg Metoprolol Succinate (Metoprolol Succ 50mg Ext Rel Tab) 100 mg PO BID ON LICENSE OF [facility] Stop: 12/11/22 08:59 Last Admin: 11/12/22 10:25 Dose: 100 mg Miscellaneous (Carbohydrates For Hypoglycemia ) 15 - 30 gm PO UD PRN PRN Reason: Hypoglycemia Protocol Stop: 12/07/22 17:13 Ondansetron HCl (Ondansetron Inj 2 Mg/Ml 2 Ml Vial) 4 mg IV Q6H PRN PRN Reason: Nausea Stop: 12/07/22 17:13 Pantoprazole Sodium (Pantoprazole 40 Mg Tab) 40 mg PO DAILY ON LICENSE OF [facility] Stop: 12/08/22 08:59 Last Admin: 11/12/22 10:26 Dose: 40 mg Prednisone (Prednisone 5 Mg Tab) 5 mg PO QPM ON LICENSE OF [facility] Stop: 12/07/22 20:59 Last Admin: 11/11/22 21:01 Dose: 5 mg Vitamin D (Cholecalciferol 1,000 Units 25 Mcg Tab) 1,000 units PO QAM ON LICENSE OF [facility] Stop: 12/08/22 08:59 Last Admin: 11/12/22 10:20 Dose: 1,000 units
== END 2022-11-12 15:23 | disposition home or self-care (01) | DRG 309 ==
LOC: ED 09:57 → 4W 09:57 → SUATTDRO 14:03 → 4W 15:29 → 2S 11-08 15:52

== ENCOUNTER 2022-12-25 09:32 | Inpatient (IN) ==
[2022-12-25] MEDS ORDERED: SODIUM CHLORIDE 0.9% 500 ML IV ONE (09:40)
[2022-12-25] MEDS ORDERED: FAMOTIDINE 20MG IV PUSH 20 MG/5 ML SYR IV STA (10:14)
[2022-12-25] MEDS ORDERED: ONDANSETRON INJ 2 MG/ML 2 ML VIAL IV STA (10:14)
[2022-12-25] MEDS ORDERED: SODIUM CHLORIDE 0.9% 1000ML 1,000 ML IV ONE (10:14)
[2022-12-25] MEDS ORDERED: ACETAMINOPHEN 1,000 MG/100 ML VIAL IV STA (10:16)
--- NOTE | 2022-12-25 10:19 | XRay Report ---
XR chest 1V portable CLINICAL HISTORY: Chest pain, nonspecific COMPARISON STUDY: Chest radiograph November 07, 2022. FINDINGS: Lung volumes are normal. No consolidation to suggest pneumonia. Linear left basilar opacity reflects atelectasis. There is no pneumothorax or pleural effusion. Cardiomegaly is unchanged. Media stinal contours are normal. There is no evidence for pulmonary edema. IMPRESSION: No acute cardiopulmonary findings. ACT 112: Negative or not required by law. Electronically signed by: Gus Ojeda M.D. 12/25/2022 10:18 AM
[2022-12-25 10:27] LABS: Hematocrit (blood only) 38.8 % (37.0-47.0); Hemoglobin 11.6 g/dl (12.0-16.0); Mean Corpuscular Hemoglobin 27.1 pg (25.0-34.0); Mean Corpuscular Hgb Conc 29.9 g/dL (32.0-36.0); Mean Corpuscular Volume 90.7 fL (80.0-100.0); Mean Platelet Volume 9.8 fL (9.4-12.4); Platelet Count 295 K/uL (130-400); RDW Coefficient of Variation 15.3 % (11.5-14.5); RDW Standard Deviation 50.6 fL (36.4-46.3); Red Blood Count 4.28 M/uL (4.20-5.40); White Blood Count 7.15 K/ul (4.8-10.8)
--- NOTE | 2022-12-25 10:31 | Emergency Department Note ---
Impression & Plan Severe sepsis, Acute epigastric pain, Immunosuppression due to drug therapy, Choledocholithiasis with acute cholecystitis, Urinary tract infection, Elevated lactic acid level, Elevated troponin, Hypotension ED Provider Note NAME: MAGY LILLY AGE: 67 SEX: F ARRIVES VIA: Ambulance INFORMANT: Patient ED PROVIDER(S): Robert Figueroa MD CHIEF COMPLAINT: Chest/back pain, nausea/vomiting. PLAN: Disposition: Admit MEDICAL DECISION MAKING: The patient is a pleasant 67-year-old woman with a past medical history of rheumatoid arthritis, diabetes, diabetic neuropathy, history of CVA/TIA, CKD, hypertension, hyperlipidemia, atrial fibrillation status post cardioversion on Eliquis who presents to the emergency department via EMS for evaluation of symptoms of shoulder pain that began acutely at 5 AM lasting approximately an hour with associated tingling in her upper extremities and then had an hour of substernal pain lasting a similar duration which subsequently resolved with associated lightheadedness and nausea and vomiting. Patient also noticed her urine appeared dark and malodorous with burning with urination today which concerned her for urinary infection which she has had in the past. She denies any illness prior to today and reports yesterday she was feeling in her normal state of health. She denies any cough, congestion, diarrhea. On arrival the patient is fatigued and uncomfortable, afebrile with heart rate in the 110s and sinus tachycardia pressure 70s/50s, mentating normally but was fluid responsive. She appears clinically dry. She has mild epigastric tenderness without guarding or rebound. EKG without overt acute ischemia. CXR negative for acute cardiopulmonary process. WBC within normal limits. H/H similar to prior. Platelets within normal limits. Chemistry without metabolic acidosis. Creatinine 1.5 similar to prior range values in the setting of CKD. Electrolytes unremarkable. LFTs are normal including normal bilirubin. High-sensitivity troponin 18.7, nonspecific. Lipase is normal. UA is consistent with infection with positive nitrites,, leuk esterase, 4+ bacteria albeit with epithelial cells present. CT of the chest and abdomen pelvis were performed. Note is made of few small stones within the gallbladder with suspicion for minimal pericholecystic inflammatory change and punctate focus of gas within the gallbladder new from prior study and a 3 mm stone at the distal CBD and still concerning for cholecystitis. Question of mild pulm edema is also noted however the patient still appears clinically dry and has IVC demonstrates 100% respiratory variability even after IV fluid administration. While patient was initially fluid responsive upon returning from CT began to develop hypotension again with systolic blood pressure in the 80s. She is also beginning to report flare of epigastric pain to her back that was becoming more severe. She had return of nausea. Given CT findings with evolving symptoms concern is for evolving sepsis related to cholecystitis as well as possible urinary infection. Given the patient had received sufficient IV fluid hydration Levophed was ordered for additional blood pressure support. Additional boluses of lactated Ringer's provided with caution given CKD and mild pulmonary edema. Blood cultures ordered and IV antibiotics with Zosyn. Initial lactic acid 3.8 with repeat pending. Procalcitonin 30.5, consistent with suspected sepsis. Case was discussed with GI on-call, Dr. Weldon who recommends consultation with interventional GI for ERCP. Case discussed with Dr. Villasenor, GI, appreciate consultation/recommendations and agrees with plan for admission for further treatment for sepsis and stabilization. Since that the patient also did take her Eliquis this morning and so we will need to hold this before procedure is performed. Case discussed with Dr. Cesar, [facility] hospitalist who evaluate the patient for admission. Case discussed with Dr. Sanders, ICU material loader and [facility] ICU PAC, who will manage the patient in the ICU. Case discussed with Helena Larsen, general surgery PAC with Dr. Fish, general surgery, who will evaluate the patient for further management. Triage Nursing notes reviewed and agree them. Prior/outside medical records reviewed Vital Signs: reviewed Differential diagnosis: Cardiac ischemia, aortic dissection, pulmonary embolism, pneumothorax, pneumonia, pericarditis, myocarditis, esophageal rupture, GERD, cholecystitis, pancreatitis, musculoskeletal, as well as other pathologies. ER treatment provided: See below. Diagnostics interpreted by me: ECG: Sinus tachycardia, 109 bpm, PSVT's, nonspecific ST and T wave abnormality, no overt ST elevation or depression, QTc 420, QRS 62. Cardiac Monitoring: An order for continuous cardiac monitoring was placed and demonstrated Sinus tachycardia, 109 bpm, PSVT's Laboratory studies: See below Imaging studies: See below Consultation(s): Dr. Villasenor, GI. Dr. Cesar [facility] hospitalist. Dr. Sanders, ICU material loader and [facility] ICU PAC. Helena Larsen, general surgery PAC with Dr. Abe, general surgery. HPI: The patient is a pleasant 67-year-old woman with a past medical history of rheumatoid arthritis, diabetes, diabetic neuropathy, history of CVA/TIA, CKD, hypertension, hyperlipidemia, atrial fibrillation status post cardioversion on Eliquis who presents to the emergency department via EMS for evaluation of symptoms of shoulder pain that began acutely at 5 AM lasting approximately an hour with associated tingling in her upper extremities and then had an hour of substernal pain lasting a similar duration which subsequently resolved with associated lightheadedness and nausea and vomiting. Patient also noticed her urine appeared dark and malodorous with burning with urination today which concerned her for urinary infection which she has had in the past. She denies any illness prior to today and reports yesterday she was feeling in her normal state of health. She denies any cough, congestion, diarrhea. ROS: See above HPI for pertinent positives & negatives. A total of 10 systems reviewed and were otherwise negative. VITALS:See Below PHYSICAL EXAMINATION: GENERAL: Awake, alert, uncomfortable/ill-appearing, in no distress HENT: Normocephalic, atraumatic. Oropharynx with dry mucous membranes and otherwise unremarkable. EYES: Normal conjunctiva. Sclera non-icteric. NECK: Supple. No nuchal rigidity. FROM. No JVD. RESPIRATORY: Clear to auscultation. CARDIAC: Tachycardic rate, normal rhythm. Extremities warm and well perfused. Pulses equal. ABDOMEN: Soft, non-distended. Mild epigastric tenderness to palpation. No rebound or guarding. No masses. RECTAL: Deferred. MUSCULOSKELETAL: Chest examination reveals no tenderness. The back is symmetrical on inspection without obvious abnormality. There is no CVA tenderness to palpation. No joint edema. LOWER EXTREMITIES: Calves are equal size bilaterally and non-tender. No edema. No discoloration. NEURO: Normal sensorium. No sensory or motor deficits noted. SKIN: No rash or jaundice noted. ED COURSE: Critical Care: I have personally spent greater than 95 minutes of critical care time in the direct management of this patient. This includes bedside care, interpretation of diagnostic studies, and testing, discussion with consultants, patient, and family members, and other required patient management activities. This 95 minutes is in excess of all separately billable procedures. 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--per pt due to clot, cleared from neurology--follows with PCP--has slight weakness on left side Acute on chronic kidney failure Acute respiratory failure with hypoxia AISHWARYA (acute kidney injury) Anemia of chronic disease Anxiety Bilateral leg edema Chronic kidney disease, stage 3b Diabetes mellitus type II, controlled Exertional chest pain GERD (gastroesophageal reflux disease) History of COVID-19 10/04/21--hospitalized @ [facility] for 9 days--no issues now History of MRSA infection lumbar surgical incision s/p vanco/ceftriaxone/bactrim per 04/2019 [facility] discharge summary History of recent blood transfusion 09/18/22 @ [facility] Hospital discharge follow-up Hyperlipidemia Hypertension Hypothyroidism Immunosuppression due to drug therapy Lumbar radiculopathy Persistent atrial fibrillation follows with Dr. Pedraza Recurrent UTI Rheumatoid arthritis Sepsis recent hospitalization 09/17/22 @ [facility] due to UTI Spinal stenosis Stenosis of left internal carotid artery 50-69% stenosis of left ICA per 04/2021 neck CTA Stenosis of left vertebral artery Approximately 90% stenosis within V4 segment of left vertebral artery per 04/21/2021 neck CTA Surgical History History of x2 History of hysterectomy total History of lumbar surgery Lumbar Spine Wound Revision 05/2019 Dr. Mane @ [facility] History of total left knee replacement Hx of tonsillectomy Status post laminectomy with spinal fusion L2-L5 laminectomy/fusion: 12/24/18: Grade view 1, MAC#3, ETT 7.0 Family History Father Diabetes Lung cancer Cancer Hypertension Mother Malignant neoplasm of brain Diabetes Brain tumor Cancer Hypertension Aunt Breast cancer Sister Hypertension Other No family history of adverse response to anesthesia Denies family history of Ovarian cancer Prostate cancer Myocardial infarction Colorectal cancer Social History Smoking Status: Never smoker Second Hand Exposure: No; Hx Alcohol Use: Yes Alcohol type: wine Alcohol Intake Frequency: 2-4 x/Month Hx Substance Use: No Preferred Language: Tongan Communication Ability: Effective Visual Impairment: Limited Hearing Ability: Normal Medical Management Trainer Required: No Beliefs That Will Affect Care: None marital status: Current Living Situation: Spouse Current Living Situation Comment: 1 level home current occupational status: retired How many Children do You have: 2 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 Feels Safe at Home: Yes Childhood Exposure to Second-Hand Smoke: Yes caffeine: Yes Dental Care, Regularly: Yes Physical Activity Frequency: 5-6 Times per Week Physical Activity Frequency Comment: gym Seatbelt Use: always Sunscreen Use: Yes Do you think of yourself as: straight/heterosexual Assistive Devices: Cane and Glasses Allergies Allergies Allergy/AdvReac Type Severity Reaction Status Date / Time tetracycline Allergy Severe RASH ON Verified 12/25/22 14:59 FACE [id number]-[id number] Reductase AdvReac Intermediate LE edema Verified 12/25/22 14:59 Inhibitor [Ciawndd-Rgy-Bwy Reductase Inhibitor] oxycodone AdvReac Mild Drowsy Verified 12/25/22 14:59 Home Meds Home Medications Medication Instructions Recorded Confirmed cholecalciferol (vitamin D3) 25 1,000 unit PO QAM 10/26/18 12/25/22 mcg (1,000 unit) capsule (Vitamin D3) magnesium 250 mg tablet 250 mg PO QAM 10/26/18 12/25/22 acetaminophen 500 mg tablet 1,000 mg PO Q6H PRN Pain 12/24/18 12/25/22 (Tylenol Extra Strength) cyclobenzaprine 10 mg tablet 10 mg PO HS 04/21/21 12/25/22 prednisone 5 mg tablet 10 mg PO QPM 11/13/22 12/25/22 L.acidop,casei,lactis,rham-B.lact,reyes 1 cap PO HS 12/12/22 12/25/22 625 mg (10 billion cell) capsule (Advanced Probiotic) gabapentin 100 mg capsule 100 - 300 mg PO HS 12/12/22 12/25/22 omeprazole 40 mg capsule,delayed 40 mg PO QAM 12/12/22 12/25/22 release Previous Rx's Medication Instructions Recorded albuterol sulfate 90 mcg/actuation 2 puff inhalation QID PRN 04/02/22 aerosol inhaler (Ventolin HFA) shortness of breath or wheezing #8.5 grams levothyroxine 100 mcg tablet 100 mcg PO QAM #90 tabs 09/16/22 semaglutide 0.25 mg or 0.5 mg (2 0.25 mg (0.2 mL) subcut ONCE #1.5 11/25/22 mg/1.5 mL) subcutaneous pen mL injector (Ozempic) apixaban 5 mg tablet (Eliquis) 5 mg PO BID #180 tabs 12/02/22 metoprolol succinate 100 mg 100 mg PO BID #60 tabs 12/12/22 tablet,extended release 24 hr furosemide 20 mg tablet (Lasix) 20 mg PO DAILY PRN edema of legs 12/13/22 #30 tabs alirocumab 75 mg/mL subcutaneous 75 mg subcut Q14D #2 mL 12/23/22 pen injector (Praluent Pen) Results & Data (ED) Vital Signs Vital Signs - 24 hr 12/25/22 09:40 12/25/22 09:44 12/25/22 10:01 Temperature 36.4 C L Temperature Source Oral Pulse Rate 105 H 110 H 105 H Pulse Rate [Finger] Pulse Rate from SpO2 Sensor Respiratory Rate 18 20 Respiratory Effort / Characteristics Respiratory Depth Blood Pressure 75/56 L Blood Pressure [Left Arm] Blood Pressure Mean 62 Blood Pressure Mean [Left Arm] Blood Pressure Position Lying Blood Pressure Position [Left Arm] Pulse Oximetry 95 95 Oxygen Delivery Method Room Air Room Air Oxygen Flow Rate Sepsis Recent Fever Within 48 Hours No Sepsis New/Unexplained Change in Mental Status No Sepsis Action Taken by Nursing No Action Required Oxygen Flow Rate - Titration Pulse Oximetry Post Tiitration 12/25/22 10:02 12/25/22 09:43 12/25/22 09:51 Temperature Temperature Source Pulse Rate 110 H 109 H Pulse Rate [Finger] Pulse Rate from SpO2 Sensor 104 H Respiratory Rate 22 20 Respiratory Effort / Characteristics Respiratory Depth Blood Pressure 96/57 L Blood Pressure [Left Arm] Blood Pressure Mean 70 Blood Pressure Mean [Left Arm] Blood Pressure Position Blood Pressure Position [Left Arm] Pulse Oximetry 95 91 Oxygen Delivery Method Room Air Oxygen Flow Rate 0 Sepsis Recent Fever Within 48 Hours Sepsis New/Unexplained Change in Mental Status Sepsis Action Taken by Nursing Oxygen Flow Rate - Titration Pulse Oximetry Post Tiitration 12/25/22 10:12 12/25/22 10:18 12/25/22 10:00 Temperature Temperature Source Pulse Rate Pulse Rate [Finger] Pulse Rate from SpO2 Sensor Respiratory Rate Respiratory Effort / Characteristics Respiratory Depth Blood Pressure 89/56 L Blood Pressure [Left Arm] Blood Pressure Mean 67 Blood Pressure Mean [Left Arm] Blood Pressure Position Blood Pressure Position [Left Arm] Pulse Oximetry 89 L 91 Oxygen Delivery Method Nasal Cannula Nasal Cannula Oxygen Flow Rate 0 2 Sepsis Recent Fever Within 48 Hours Sepsis New/Unexplained Change in Mental Status Sepsis Action Taken by Nursing Oxygen Flow Rate - Titration 2 4 Pulse Oximetry Post Tiitration 93 93 12/25/22 10:10 12/25/22 10:11 12/25/22 10:17 Temperature Temperature Source Pulse Rate 103 H 109 H 109 H Pulse Rate [Finger] Pulse Rate from SpO2 Sensor 104 H 100 H 106 H Respiratory Rate 17 16 20 Respiratory Effort / Characteristics Respiratory Depth Blood Pressure 103/63 87/54 L Blood Pressure [Left Arm] Blood Pressure Mean 76 65 Blood Pressure Mean [Left Arm] Blood Pressure Position Blood Pressure Position [Left Arm] Pulse Oximetry 92 91 79 L Oxygen Delivery Method Oxygen Flow Rate Sepsis Recent Fever Within 48 Hours Sepsis New/Unexplained Change in Mental Status Sepsis Action Taken by Nursing Oxygen Flow Rate - Titration Pulse Oximetry Post Tiitration 12/25/22 10:30 12/25/22 11:00 12/25/22 11:30 Temperature Temperature Source Pulse Rate 103 H 102 H 100 H Pulse Rate [Finger] Pulse Rate from SpO2 Sensor 103 H 102 H Respiratory Rate 15 26 H 20 Respiratory Effort / Characteristics Respiratory Depth Blood Pressure 110/62 102/58 L 77/53 L Blood Pressure [Left Arm] Blood Pressure Mean 78 72 61 Blood Pressure Mean [Left Arm] Blood Pressure Position Blood Pressure Position [Left Arm] Pulse Oximetry 95 96 Oxygen Delivery Method Oxygen Flow Rate Sepsis Recent Fever Within 48 Hours Sepsis New/Unexplained Change in Mental Status Sepsis Action Taken by Nursing Oxygen Flow Rate - Titration Pulse Oximetry Post Tiitration 12/25/22 11:36 12/25/22 11:52 12/25/22 12:00 Temperature Temperature Source Pulse Rate 104 H 99 H 102 H Pulse Rate [Finger] Pulse Rate from SpO2 Sensor 97 H 96 H 100 H Respiratory Rate 16 18 16 Respiratory Effort / Characteristics Respiratory Depth Blood Pressure 91/44 L 99/55 L 86/59 L Blood Pressure [Left Arm] Blood Pressure Mean 59 69 68 Blood Pressure Mean [Left Arm] Blood Pressure Position Blood Pressure Position [Left Arm] Pulse Oximetry 98 93 96 Oxygen Delivery Method Oxygen Flow Rate Sepsis Recent Fever Within 48 Hours Sepsis New/Unexplained Change in Mental Status Sepsis Action Taken by Nursing Oxygen Flow Rate - Titration Pulse Oximetry Post Tiitration 12/25/22 12:14 12/25/22 12:14 12/25/22 12:23 Temperature Temperature Source Pulse Rate 104 H 105 H Pulse Rate [Finger] Pulse Rate from SpO2 Sensor 101 H 108 H Respiratory Rate 16 18 Respiratory Effort / Characteristics Respiratory Depth Blood Pressure 89/67 L 105/54 L Blood Pressure [Left Arm] Blood Pressure Mean 74 71 Blood Pressure Mean [Left Arm] Blood Pressure Position Blood Pressure Position [Left Arm] Pulse Oximetry 99 95 Oxygen Delivery Method Oxygen Flow Rate Sepsis Recent Fever Within 48 Hours Sepsis New/Unexplained Change in Mental Status Sepsis Action Taken by Nursing Oxygen Flow Rate - Titration Pulse Oximetry Post Tiitration 12/25/22 12:30 12/25/22 13:05 12/25/22 13:07 Temperature Temperature Source Pulse Rate 106 H 107 H Pulse Rate [Finger] Pulse Rate from SpO2 Sensor 94 H Respiratory Rate 21 22 Respiratory Effort / Characteristics Respiratory Depth Blood Pressure 97/49 L 73/37 L 84/43 L Blood Pressure [Left Arm] Blood Pressure Mean 65 49 56 Blood Pressure Mean [Left Arm] Blood Pressure Position Blood Pressure Position [Left Arm] Pulse Oximetry 94 Oxygen Delivery Method Oxygen Flow Rate Sepsis Recent Fever Within 48 Hours Sepsis New/Unexplained Change in Mental Status Sepsis Action Taken by Nursing Oxygen Flow Rate - Titration Pulse Oximetry Post Tiitration 12/25/22 13:27 12/25/22 13:44 12/25/22 13:10 Temperature 36.7 C Temperature Source Pulse Rate 98 H 105 H 105 H Pulse Rate [Finger] Pulse Rate from SpO2 Sensor 105 H Respiratory Rate 15 20 Respiratory Effort / Characteristics Respiratory Depth Blood Pressure 89/36 L Blood Pressure [Left Arm] Blood Pressure Mean 53 Blood Pressure Mean [Left Arm] Blood Pressure Position Blood Pressure Position [Left Arm] Pulse Oximetry 93 92 Oxygen Delivery Method Nasal Cannula Oxygen Flow Rate 4 Sepsis Recent Fever Within 48 Hours Sepsis New/Unexplained Change in Mental Status Sepsis Action Taken by Nursing Oxygen Flow Rate - Titration Pulse Oximetry Post Tiitration 12/25/22 13:29 12/25/22 13:30 12/25/22 13:54 Temperature Temperature Source Pulse Rate 104 H 108 H 103 H Pulse Rate [Finger] Pulse Rate from SpO2 Sensor 103 H 117 H Respiratory Rate 22 20 17 Respiratory Effort / Characteristics Respiratory Depth Blood Pressure 89/36 L 81/46 L 86/52 L Blood Pressure [Left Arm] Blood Pressure Mean 53 57 63 Blood Pressure Mean [Left Arm] Blood Pressure Position Blood Pressure Position [Left Arm] Pulse Oximetry 95 74 L Oxygen Delivery Method Oxygen Flow Rate Sepsis Recent Fever Within 48 Hours Sepsis New/Unexplained Change in Mental Status Sepsis Action Taken by Nursing Oxygen Flow Rate - Titration Pulse Oximetry Post Tiitration 12/25/22 14:00 12/25/22 14:03 12/25/22 14:05 Temperature Temperature Source Pulse Rate 103 H 101 H 102 H Pulse Rate [Finger] Pulse Rate from SpO2 Sensor 104 H 100 H 101 H Respiratory Rate 19 18 14 Respiratory Effort / Characteristics Respiratory Depth Blood Pressure 91/44 L 87/48 L 90/47 L Blood Pressure [Left Arm] Blood Pressure Mean 59 61 61 Blood Pressure Mean [Left Arm] Blood Pressure Position Blood Pressure Position [Left Arm] Pulse Oximetry 88 L 95 95 Oxygen Delivery Method Oxygen Flow Rate Sepsis Recent Fever Within 48 Hours Sepsis New/Unexplained Change in Mental Status Sepsis Action Taken by Nursing Oxygen Flow Rate - Titration Pulse Oximetry Post Tiitration 12/25/22 15:01 Temperature 36.5 C Temperature Source Oral Pulse Rate Pulse Rate [Finger] 106 H Pulse Rate from SpO2 Sensor Respiratory Rate 18 Respiratory Effort / Characteristics Non-Labored Respiratory Depth Normal Blood Pressure Blood Pressure [Left Arm] 99/59 L Blood Pressure Mean Blood Pressure Mean [Left Arm] 72 Blood Pressure Position Blood Pressure Position [Left Arm] Lying Pulse Oximetry 95 Oxygen Delivery Method Nasal Cannula Oxygen Flow Rate 4 Sepsis Recent Fever Within 48 Hours Sepsis New/Unexplained Change in Mental Status Sepsis Action Taken by Nursing Oxygen Flow Rate - Titration Pulse Oximetry Post Tiitration Laboratory Data Attestation: I reviewed the patient's lab results. 12/25/22 09:59 12/25/22 09:56 Lab Results 12/25/22 12/25/22 12/25/22 Range/Units 09:56 09:56 09:59 WBC 7.15 (4.8-10.8) K/ul RBC 4.28 (4.20-5.40) M/uL Hgb 11.6 L (12.0-16.0) g/dl Hct 38.8 (37.0-47.0) % MCV 90.7 (80.0-100.0) fL MCH 27.1 (25.0-34.0) pg MCHC 29.9 L (32.0-36.0) g/dL RDW Std Deviation 50.6 H (36.4-46.3) fL RDW Coeff of Sumaya 15.3 H (11.5-14.5) % Plt Count 295 (130-400) K/uL MPV 9.8 (9.4-12.4) fL Immature Gran % (Auto) 0.4 % Neut % (Auto) 96.3 % Lymph % (Auto) 2.7 % Hood % (Auto) 0.4 % Eos % (Auto) 0.1 % Baso % (Auto) 0.1 % Neut # (Auto) 6.88 H (1.40-6.50) K/uL Lymph # (Auto) 0.19 L (1.2-3.4) K/uL Hood # (Auto) 0.03 L (0.11-0.59) K/uL Eos # (Auto) 0.01 (0-0.50) K/uL Baso # (Auto) 0.01 (0-0.2) K/uL Immature Gran # (Auto) 0.03 (0.01-0.20) K/uL Toxic Vacuolation 1+ Sodium 144 (136-145) mmol/L Potassium 3.1 L (3.5-5.1) mmol/L Chloride 107 (98-107) mmol/L Carbon Dioxide 25 (21-32) mmol/L Anion Gap 12 H (3-11) BUN 35 H (6-23) mg/dl Creatinine 1.50 H (0.6-1.2) mg/dl Est Cr Clr Drug Dosing 33.8 ml/min Est GFR ( Amer) 41.4 ml/min Est GFR (Non-Af Amer) 35.7 ml/min BUN/Creatinine Ratio 23.3 H (10-20) Glucose 136 H (70-99(Fasting)) mg/dl Lactate (0.4-2.0) mmol/L Calcium 8.7 (8.5-10.1) mg/dl Phosphorus 3.4 (2.5-4.9) mg/dl Magnesium 1.8 (1.7-2.4) mg/dl Total Bilirubin 0.4 (0.2-1.0) mg/dl Direct Bilirubin 0.0 Cancelled (0-0.2) mg/dl AST 14 (13-39) U/L ALT 14 (7-52) U/L Alkaline Phosphatase 57 (34-104) U/L Total Creatine Kinase 38 (26-192) U/L Troponin I High Sens 18.7 H (0-14) pg/ml Total Protein 6.3 (6.0-8.3) gm/dl Albumin 3.8 (3.4-5.0) gm/dl Globulin 2.5 (2.5-4.0) gm/dl Albumin/Globulin Ratio 1.5 (0.9-2) Lipase 43 (11-82) U/L Procalcitonin (0-0.5) ng/ml Random Cortisol mcg/dl 12/25/22 12/25/22 12/25/22 Range/Units 14:25 14:25 14:25 WBC (4.8-10.8) K/ul RBC (4.20-5.40) M/uL Hgb (12.0-16.0) g/dl Hct (37.0-47.0) % MCV (80.0-100.0) fL MCH (25.0-34.0) pg MCHC (32.0-36.0) g/dL RDW Std Deviation (36.4-46.3) fL RDW Coeff of Sumaya (11.5-14.5) % Plt Count (130-400) K/uL MPV (9.4-12.4) fL Immature Gran % (Auto) % Neut % (Auto) % Lymph % (Auto) % Hood % (Auto) % Eos % (Auto) % Baso % (Auto) % Neut # (Auto) (1.40-6.50) K/uL Lymph # (Auto) (1.2-3.4) K/uL Hood # (Auto) (0.11-0.59) K/uL Eos # (Auto) (0-0.50) K/uL Baso # (Auto) (0-0.2) K/uL Immature Gran # (Auto) (0.01-0.20) K/uL Toxic Vacuolation Sodium (136-145) mmol/L Potassium (3.5-5.1) mmol/L Chloride (98-107) mmol/L Carbon Dioxide (21-32) mmol/L Anion Gap (3-11) BUN (6-23) mg/dl Creatinine (0.6-1.2) mg/dl Est Cr Clr Drug Dosing ml/min Est GFR ( Amer) ml/min Est GFR (Non-Af Amer) ml/min BUN/Creatinine Ratio (10-20) Glucose (70-99(Fasting)) mg/dl Lactate 3.8 H* (0.4-2.0) mmol/L Calcium (8.5-10.1) mg/dl Phosphorus (2.5-4.9) mg/dl Magnesium (1.7-2.4) mg/dl Total Bilirubin (0.2-1.0) mg/dl Direct Bilirubin (0-0.2) mg/dl AST (13-39) U/L ALT (7-52) U/L Alkaline Phosphatase (34-104) U/L Total Creatine Kinase (26-192) U/L Troponin I High Sens 25.9 H (0-14) pg/ml Total Protein (6.0-8.3) gm/dl Albumin (3.4-5.0) gm/dl Globulin (2.5-4.0) gm/dl Albumin/Globulin Ratio (0.9-2) Lipase (11-82) U/L Procalcitonin 30.54 H (0-0.5) ng/ml Random Cortisol mcg/dl 12/25/22 12/25/22 Range/Units 14:25 14:25 WBC (4.8-10.8) K/ul RBC (4.20-5.40) M/uL Hgb (12.0-16.0) g/dl Hct (37.0-47.0) % MCV (80.0-100.0) fL MCH (25.0-34.0) pg MCHC (32.0-36.0) g/dL RDW Std Deviation (36.4-46.3) fL RDW Coeff of Sumaya (11.5-14.5) % Plt Count (130-400) K/uL MPV (9.4-12.4) fL Immature Gran % (Auto) % Neut % (Auto) % Lymph % (Auto) % Hood % (Auto) % Eos % (Auto) % Baso % (Auto) % Neut # (Auto) (1.40-6.50) K/uL Lymph # (Auto) (1.2-3.4) K/uL Hood # (Auto) (0.11-0.59) K/uL Eos # (Auto) (0-0.50) K/uL Baso # (Auto) (0-0.2) K/uL Immature Gran # (Auto) (0.01-0.20) K/uL Toxic Vacuolation Sodium (136-145) mmol/L Potassium (3.5-5.1) mmol/L Chloride (98-107) mmol/L Carbon Dioxide (21-32) mmol/L Anion Gap (3-11) BUN (6-23) mg/dl Creatinine (0.6-1.2) mg/dl Est Cr Clr Drug Dosing ml/min Est GFR ( Amer) ml/min Est GFR (Non-Af Amer) ml/min BUN/Creatinine Ratio (10-20) Glucose (70-99(Fasting)) mg/dl Lactate (0.4-2.0) mmol/L Calcium (8.5-10.1) mg/dl Phosphorus (2.5-4.9) mg/dl Magnesium (1.7-2.4) mg/dl Total Bilirubin (0.2-1.0) mg/dl Direct Bilirubin (0-0.2) mg/dl AST (13-39) U/L ALT (7-52) U/L Alkaline Phosphatase (34-104) U/L Total Creatine Kinase (26-192) U/L Troponin I High Sens 23.1 H (0-14) pg/ml Total Protein (6.0-8.3) gm/dl Albumin (3.4-5.0) gm/dl Globulin (2.5-4.0) gm/dl Albumin/Globulin Ratio (0.9-2) Lipase (11-82) U/L Procalcitonin (0-0.5) ng/ml Random Cortisol 10.93 mcg/dl Administered Medications Norepinephrine Bitartrate (Levophed/D5w) 4 mg in 250 mls @ 12.019 mls/hr IV .[id number] [facility]; Protocol Stop: 01/24/23 13:29 Last Titration: 12/25/22 15:51 Dose: 0.1 mcg/kg/min, 24 mls/hr Documented By: Titration: 12/25/22 15:38 Dose: 0.12 mcg/kg/min, 28.8 mls/hr Documented By: Titration: 12/25/22 14:27 Dose: 0.13 mcg/kg/min, 31.2 mls/hr Documented By: Titration: 12/25/22 14:19 Dose: 0.11 mcg/kg/min, 26.4 mls/hr Documented By: Titration: 12/25/22 14:08 Dose: 0.09 mcg/kg/min, 21.6 mls/hr Documented By: Titration: 12/25/22 14:03 Dose: 0.07 mcg/kg/min, 16.8 mls/hr Documented By: Admin: 12/25/22 13:53 Dose: 0.05 mcg/kg/min, 12 mls/hr Documented By: CASSANDRA Co-signed By: ULISES Discontinued Medications Hydrocortisone Sodium Succinate (Hydrocortisone Sod Succinate 100 Mg/2 Ml Vial) 100 mg IV NOW STA Stop: 12/25/22 14:34 Last Admin: 12/25/22 14:37 Dose: 100 mg Documented By: ML Sodium Chloride (Nss) 500 mls @ 999 mls/hr IV .Q31M ONE Stop: 12/25/22 10:10 Last Infusion: 12/25/22 10:56 Dose: 0 mls/hr Documented By: Admin: 12/25/22 10:11 Dose: 999 mls/hr Documented By: MALLY Sodium Chloride (Nss 1000ml) 1,000 mls @ 999 mls/hr IV .Q1H1M ONE Stop: 12/25/22 11:14 Last Infusion: 12/25/22 11:57 Dose: 0 mls/hr Documented By: Admin: 12/25/22 10:56 Dose: 999 mls/hr Documented By: MALLY Famotidine (Pepcid 20mg Iv Push) 20 mg in 5 mls @ 2.5 mls/min IV NOW STA Stop: 12/25/22 10:15 Last Admin: 12/25/22 10:29 Dose: 2.5 mls/min Documented By: MALLY Acetaminophen (Ofirmev) 1,000 mg in 100 mls @ 400 mls/hr IV NOW STA Stop: 12/25/22 10:30 Last Infusion: 12/25/22 10:56 Dose: 0 mls/hr Documented By: Admin: 12/25/22 10:23 Dose: 400 mls/hr Documented By: MALLY Piperacillin Sod/Tazobactam Sod (Zosyn) 4.5 gm in 120 mls @ 240 mls/hr IV NOW ONE Stop: 12/25/22 13:59 Last Infusion: 12/25/22 14:16 Dose: 0 mls/hr Documented By: Admin: 12/25/22 13:46 Dose: 240 mls/hr Documented By: ML Lactated Ringer's (Lr) 500 mls @ 999 mls/hr IV .Q31M ONE Stop: 12/25/22 14:03 Last Infusion: 12/25/22 14:17 Dose: 0 mls/hr Documented By: Admin: 12/25/22 13:46 Dose: 999 mls/hr Documented By: ML Lactated Ringer's (Lr) 500 mls @ 999 mls/hr IV .Q31M ONE Stop: 12/25/22 15:04 Last Infusion: 12/25/22 15:40 Dose: 0 mls/hr Documented By: Admin: 12/25/22 14:59 Dose: 999 mls/hr Documented By: Miscellaneous (Stat Iv Infusion Titration Per Protocol) 1 each N/A NOW STA Stop: 12/25/22 13:31 Last Admin: 12/25/22 15:22 Dose: Not Given Documented By: FRED Morphine Sulfate (Morphine Sulfate 2 Mg/Ml Carp) 2 mg IV NOW STA Stop: 12/25/22 13:45 Last Admin: 12/25/22 13:48 Dose: 2 mg Documented By: CASSANDRA Ondansetron HCl (Ondansetron Inj 2 Mg/Ml 2 Ml Vial) 4 mg IV NOW STA Stop: 12/25/22 10:15 Last Admin: 12/25/22 10:28 Dose: 4 mg Documented By: MALLY Ondansetron HCl (Ondansetron Inj 2 Mg/Ml 2 Ml Vial) Confirm Administered Dose 4 mg .ROUTE .STK-MED ONE Stop: 12/25/22 13:20 Last Admin: 12/25/22 13:26 Dose: 4 mg Documented By: ML Imaging Data Radiologist's Impression: Chest X-Ray 12/25/22 09:39 XR chest 1V portable CLINICAL HISTORY: Chest pain, nonspecific COMPARISON STUDY: Chest radiograph November 07, 2022. FINDINGS: Lung volumes are normal. No consolidation to suggest pneumonia. Linear left basilar opacity reflects atelectasis. There is no pneumothorax or pleural effusion. Cardiomegaly is unchanged. Mediastinal contours are normal. There is no evidence for pulmonary edema. IMPRESSION: No acute cardiopulmonary findings. ACT 112: Negative or not required by law. Electronically signed by: Gus Ojeda M.D. 12/25/2022 10:18 AM Abdomen/Pelvis CT 12/25/22 10:[address] WITHOUT CONTRAST CT DOSE: HISTORY: chest/back/abd pain, near syncope TECHNIQUE: Multiaxial CT images of the abdomen and pelvis were performed without contrast. A dose lowering technique was utilized adhering to the principles of ALARA. COMPARISON STUDY: Abdomen and pelvis CT 09/17/2022. FINDINGS: The lung bases will be reported on the same day chest CT. Mild dependent changes and interlobular septal thickening seen at the lung bases. The heart is mildly enlarged. No pneumoperitoneum. No pneumatosis. There is an old moderate inferior endplate compression deformity at T12 with 4 mm of retropulsion, unchanged. This results in mild to moderate central canal narrowing. There is L3-L5 posterior decompression and fusion with pedicle screws and rods. The hardware appears intact. No acute fractures identified. Hepatic steatosis. There are few small stones within the gallbladder. No gallbladder wall thickening. Questionable minimal pericholecystic inflammatory change. There is a punctate focus of gas within the gallbladder which is new from the prior study. There is a 3 mm stone at the distal common bile duct on image 173. Therefore, these findings are concerning for an acute cholecystitis. The unenhanced spleen, adrenal glands, pancreas, and left kidney are unremarkable. Stable right-sided nephrolithiasis. No ureteral stones. No hydronephrosis. No retroperitoneal lymphadenopathy. Calcified plaque within the normal caliber abdominal aorta. No pelvic free fluid. The bladder is decompressed. Prior hysterectomy. No pelvic free fluid. Suboptimal evaluation for bowel pathology due to the lack of intravenous and oral contrast. However, there is no definite bowel wall thickening or obstruction. Normal appendix. Colonic diverticulosis. No evidence for acute diverticulitis. Mild thickening of the sigmoid colon is likely due to muscular hypertrophy from the diverticulosis. IMPRESSION: 1. There are few small stones within the gallbladder. Questionable minimal pericholecystic inflammatory change. There is a punctate focus of gas within the gallbladder which is new from the prior study. There is a 3 mm stone at the distal common bile duct. Therefore, these findings are concerning for an acute cholecystitis. Surgical or GI consultation recommended. 2. Mild interlobular septal thickening at the lung bases likely representing mild pulmonary edema. 3. Right-sided nephrolithiasis. No ureteral stones. No hydronephrosis. 4. Colonic diverticulosis. No evidence for acute diverticulitis. 5. No change in the moderate inferior endplate compression fracture at T12. 6. Additional findings as described above. ACT 112: Negative or not required by law. Electronically signed by: Sonny Moody M.D. 12/25/2022 1:[address] 12/25/22 10:50 CT OF THE CHEST WITHOUT IV CONTRAST CLINICAL HISTORY: chest/back/abd pain, near syncope COMPARISON STUDY: Chest CT October 29, 2018. Chest radiograph performed earlier today. CT DOSE: 1043.84 mGy.cm TECHNIQUE: Axial images of the chest were obtained without IV contrast. Images were reviewed in the axial, sagittal, and coronal planes. IV contrast was not administered for this examination. Automated exposure control was utilized for the study. A dose lowering technique was utilized adhering to the principles of ALARA. FINDINGS: Prominent mediastinal lymph nodes are unchanged. There is moderate cardiomegaly and coronary artery calcification. There is no pericardial effusion. There is a trace left pleural effusion. No pneumothorax is present. Interlobular septal thickening is noted. There are mild ground glass opacities within the lungs. There is no consolidation to suggest pneumonia. A T12 compression fracture is noted. This was shown on radiographs of April 02, 2022. There is no acute thoracic spine fracture. Central airways are patent. Lungs are suboptimally assessed due to respiratory motion. The abdomen and pelvis CT will be reported separately. IMPRESSION: 1. Findings consistent with pulmonary edema. Trace left pleural effusion. 2. Moderate cardiomegaly and coronary artery calcification. 3. Redemonstration of an old T12 compression fracture. No acute thoracic spine fractures. ACT 112: Negative or not required by law. Electronically signed by: Gus Ojeda M.D. 12/25/2022 1:40 PM Discharge Plan Visit Data Chief Complaint: Cardiac Assessment Stated Complaint: CHEST PAIN ED Provider: Robert Figueroa Discharge Problem: Severe sepsis, Acute epigastric pain, Immunosuppression due to drug therapy, Choledocholithiasis with acute cholecystitis, Urinary tract infection, Elevated lactic acid level, Elevated troponin, Hypotension Patient Disposition: Admitted As Inpatient Discharge Instructions Interventions: ED Discharge Assessment Last Done: 12/25/22 16:23
[2022-12-25 10:38] LABS: Bilirubin,Total 0.4 mg/dl (0.2-1.0); Creatinine Clr Calc Pharmacy 33.8 ml/min; Magnesium 1.8 mg/dl (1.7-2.4)
[2022-12-25 10:43] LABS: Troponin I High Sensitivity 18.7 pg/ml (0-14)
[2022-12-25 10:54] LABS: Basophils # (auto) 0.01 K/uL (0-0.2); Basophils % (auto) 0.1 %; Eosinophils # (auto) 0.01 K/uL (0-0.50); Eosinophils % (auto) 0.1 %; Immature Granulocytes # (auto) 0.03 K/uL (0.01-0.20); Immature Granulocytes % (auto) 0.4 %; Lymphocytes # (auto) 0.19 K/uL (1.2-3.4); Lymphocytes % (auto) 2.7 %; Monocytes # (auto) 0.03 K/uL (0.11-0.59); Monocytes % (auto) 0.4 %; Neutrophils # (auto) 6.88 K/uL (1.40-6.50); Neutrophils % (auto) 96.3 %; Toxic Vacuolation 1+
[2022-12-25 11:59] LABS: Albumin Level 3.8 gm/dl (3.4-5.0); Calcium 8.7 mg/dl (8.5-10.1); Potassium 3.1 mmol/L (3.5-5.1)
[2022-12-25 12:06] LABS: Albumin Globulin Ratio 1.5 (0.9-2); BUN Creatinine Ratio 23.3 (10-20); Est GFR (African American) 41.4 ml/min; Est GFR (Non-African American) 35.7 ml/min; Globulin 2.5 gm/dl (2.5-4.0); Phosphorus 3.4 mg/dl (2.5-4.9); Total Protein 6.3 gm/dl (6.0-8.3)
[2022-12-25 13:14] LABS: Appearance Urine Turbid (Clear); Bacteria Urine Automated 4+ (Negative); Bilirubin Urine Negative (Negative); Blood Urine 2+ (Negative); Color Urine Dark Yellow; Epithelial Cell Urine Auto >30 /lpf (0-5); Glucose Urine UA Negative (Negative); Ketones Urine Trace (Negative); Leukocyte Esterase Urine 3+ (Negative); Nitrite Urine Positive (Negative); Protein Urine 3+ (Negative); Specific Gravity Urine 1.019 (1.000-1.030); Urobilinogen Urine Negative (Negative); WBC Urine Automated >30 /hpf (0-5)
[2022-12-25] MEDS ORDERED: ONDANSETRON INJ 2 MG/ML 2 ML VIAL ONE (13:19)
--- NOTE | 2022-12-25 13:21 | CT Scan Report ---
ABDOMEN AND PELVIS CT WITHOUT CONTRAST CT DOSE: HISTORY: chest/back/abd pain, near syncope TECHNIQUE: Multiaxial CT images of the abdomen and pelvis were performed without contrast. A dose lo wering technique was utilized adhering to the principles of ALARA. COMPARISON STUDY: Abdomen and pelvis CT 09/17/2022. FINDINGS: The lung bases will be reported on the same day chest CT. Mild dependent changes and interl obular septal thickening seen at the lung bases. The heart is mildly enlarged. No pneumoperitoneum. N o pneumatosis. There is an old moderate inferior endplate compression deformity at T12 with 4 mm of r etropulsion, unchanged. This results in mild to moderate central canal narrowing. There is L3-L5 post erior decompression and fusion with pedicle screws and rods. The hardware appears intact. No acute fr actures identified. Hepatic steatosis. There are few small stones within the gallbladder. No gallblad kevin wall thickening. Questionable minimal pericholecystic inflammatory change. There is a punctate fo cus of gas within the gallbladder which is new from the prior study. There is a 3 mm stone at the dis mumtaz common bile duct on image 173. Therefore, these findings are concerning for an acute cholecystiti s. The unenhanced spleen, adrenal glands, pancreas, and left kidney are unremarkable. Stable right-si ded nephrolithiasis. No ureteral stones. No hydronephrosis. No retroperitoneal lymphadenopathy. Calci fied plaque within the normal caliber abdominal aorta. No pelvic free fluid. The bladder is decompres sed. Prior hysterectomy. No pelvic free fluid. Suboptimal evaluation for bowel pathology due to the l ack of intravenous and oral contrast. However, there is no definite bowel wall thickening or obstruct ion. Normal appendix. Colonic diverticulosis. No evidence for acute diverticulitis. Mild thickening o f the sigmoid colon is likely due to muscular hypertrophy from the diverticulosis. IMPRESSION: 1. There are few small stones within the gallbladder. Questionable minimal pericholecystic inflammato ry change. There is a punctate focus of gas within the gallbladder which is new from the prior study. There is a 3 mm stone at the distal common bile duct. Therefore, these findings are concerning for a n acute cholecystitis. Surgical or GI consultation recommended. 2. Mild interlobular septal thickening at the lung bases likely representing mild pulmonary edema. 3. Right-sided nephrolithiasis. No ureteral stones. No hydronephrosis. 4. Colonic diverticulosis. No evidence for acute diverticulitis. 5. No change in the moderate inferior endplate compression fracture at T12. 6. Additional findings as described above. ACT 112: Negative or not required by law. Electronically signed by: Sonny Moody M.D. 12/25/2022 1:20 PM
[2022-12-25] MEDS ORDERED: PIPERACILLIN/TAZOBACTAM 4.5 GM/120 ML BAG IV ONE (13:30)
[2022-12-25] MEDS ORDERED: STAT IV Infusion **Titration per Protocol STA (13:30)
[2022-12-25] MEDS ORDERED: LACTATED RINGER'S 500 ML IV ONE ×2 (13:33→14:34)
--- NOTE | 2022-12-25 13:42 | CT Scan Report ---
CT OF THE CHEST WITHOUT IV CONTRAST CLINICAL HISTORY: chest/back/abd pain, near syncope COMPARISON STUDY: Chest CT October 29, 2018. Chest radiograph performed earlier today. CT DOSE: 1043.84 mGy.cm TECHNIQUE: Axial images of the chest were obtained without IV contrast. Images were reviewed in the axial, sagittal, and coronal planes. IV contrast was not administered for this examination. Automat ed exposure control was utilized for the study. A dose lowering technique was utilized adhering to t he principles of ALARA. FINDINGS: Prominent mediastinal lymph nodes are unchanged. There is moderate cardiomegaly and salguero ry artery calcification. There is no pericardial effusion. There is a trace left pleural effusion. No pneumothorax is present. Interlobular septal thickening is noted. There are mild ground glass opacit ies within the lungs. There is no consolidation to suggest pneumonia. A T12 compression fracture is n oted. This was shown on radiographs of April 02, 2022. There is no acute thoracic spine fracture. Cent ral airways are patent. Lungs are suboptimally assessed due to respiratory motion. The abdomen and pe lvis CT will be reported separately. IMPRESSION: 1. Findings consistent with pulmonary edema. Trace left pleural effusion. 2. Moderate cardiomegaly and coronary artery calcification. 3. Redemonstration of an old T12 compression fracture. No acute thoracic spine fractures. ACT 112: Negative or not required by law. Electronically signed by: Gus Ojeda M.D. 12/25/2022 1:40 PM
[2022-12-25] MEDS ORDERED: MoRPHine SULFATE 2 MG/ML CARP IV STA (13:44)
[2022-12-25] MEDS: NOREPINEPHRINE/D5W 4 MG/250 ML PLCT IV SCH (13:53)
--- NOTE | 2022-12-25 14:29 | History & Physical Report ---
Date of Service December 25, 2022 Assessment & Plan (1) Sepsis: Plan: Sepsis 2/2 acute cholecystitis versus cystitis CTA/P: Pericholecystic minimal inflammatory change, small punctate of gas within the gallbladder, 3 mm stone at distal CBD suspicious for acute cholecy stitis - CT-C: 1. Findings consistent with pulmonary edema. Trace left pleural effusion. 2. Moderate cardiomegaly and coronary artery calcification. 3. Redemonstration of an old T12 compression fracture. No acute thoracic spine fractures. UA infected versus and contaminated appearing, patient with UTI symptoms for 2 days. Has not had any right upper quadrant pain, pain with meals, alexis colored stools Received 2 L crystalloid in ER, 30 cc/kg =1920cc Continue Zosyn. CTA with evidence of pulmonary edema, patient with history of diastolic failure. Remains hypotensive in the setting of sepsis. Norepinephrine started in ER Patient is at risk for adrenal suppression due to chronic prednisone use Random cortisol pending Hydrocortisone 100 mg ordered Cholecystitis management as noted below Lactate pending Procalcitonin pending GI/general surgery consulted for choledocho. Anticipate ERCP tomorrow morning Patient is increased surgical risk. Has a history of TIA with no deficits after thrombolytic, CKD, diabetes although is not on PERFUME MAKER insulin, history of heart failure with diastolic dysfunction. HFpEF -TTE 11/07/2022: EF 65-70% with normal LV wall motion. Moderate concentric LVH. Mild to moderate annular calcification. Mild mitral stenosis. RVSP 30-40 mmHg. Aortic valve sclerosis mild without significant stenosis. Patient reports she does have chronic lower extremity leg swelling for which she is on Lasix as needed. Feels the swelling in her legs is normal, neither warm nor less than average and symmetrical at assessment CTchest with pulmonary edema post volume resuscitation. Patient is on 4 L of nasal cannula Additional IV fluids deferred, patient started on Levophed drip and admitted to ICU for pressor support Titrate SPO2 to greater than 90% ?Acute cholecystitis - Clinically does not exam with RUQ pain. Pt has not had any alexis colored stools, right upper quadrant pain, or pain with meals. She did have nausea/vomiting nonbloody/nonbilious this morning. No longer feels nauseous at time of bedside assessment CTA/P with pericholecystic inflammatory change, small punctate of gas within the gallbladder, 3 mm stone at distal CBD No transaminitis GI consulted, general surgery consulted Hypokalemia 3.1, potassium repleted Magnesium 1.8 ? Cystitis Patient with UTI symptoms and UA infected versus contaminated appearing Covered with Zosyn for cholecystitis as otherwise noted. UCx pending, BC pending Elevated troponin Admitting troponin 18.7, prior low-grade troponin around 1625 Suspect demand in setting of sepsis Troponin trended Echo for wall motion pending A-fib history of RVR Underwent electrical cardioversion 12/13/2022 for A-fib with RVR, converted to sinus rhythm Converted to heparin drip while pending ERCP/jordy. Took Eliquis around 9 AM, next dose due around 9 PM. Hold 6 hours prior to any surgical intervention. BB held fo rhypotension Admitting EKG sinus tachycardia with nonspecific ST segment change, no territorial depressions Type 2 diabetes mellitus Semaglutide 0.25 mg weekly started 11/25/2022. DDx to include nausea/vomiting/diarrhea Neuropathy treatment with gabapentin 100-300 mg nightly titrated to severity of symptoms by patient SGLT2 inhibitor avoided due to recurrent UTIs with hospitalization ICU hyperglycemia protocol Hypothyroidism Synthroid 100 mcg daily, continue Variable TFTs as outpatient, but patient has been clinically stable on 100 mcg Synthroid dose defer repeat in the setting of acute illness Hyperlipidemia Last LDL 219. Continue PCSK9 as outpatient, patient has been intolerant of statins due to the recurrent severe myalgias Hypertension Hypotensive in the setting of sepsis Toprol held Lasix held CKD Baseline creatinine approximately 1.52.1 Admitting creatinine 1.5 BUN/creatinine ratio 23 Renally dose medications, trend. No AISHWARYA on admission DVT prophylaxis: Patient on Eliquis, converted to heparin due to start 2100 hrs mile while inpatient, hold 6 hours prior to any surgery. Diet: N.p.o. Additional fluids deferred due to pulmonary edema. Bolus as needed Disposition: ICU CODE STATUS: Full code (2) (HFpEF) heart failure with preserved ejection fraction: (3) Anemia of chronic disease: (4) Chronic kidney disease, stage 3b: (5) Diabetes mellitus with neuropathy: (6) Hyperlipidemia: (7) Hypertension: (8) Hypothyroidism: (9) Rheumatoid arthritis: (10) TIA involving vertebral artery: History of Present Illness Primary Care Provider: Corby Arzola MD Daniela Champagne is a 67-year-old female with a past medical history of rheumatoid arthritis on chronic prednisone, type II DM, TIA, hypothyroidism, chronic anemia, heart failure with preserved ejection fraction, CKD 3B, A-fib with RVR on apixaban, hyperlipidemia on praluent, Started to feel ill at 5am this morning Was feeling normal yesterday evening Woke up this morning and had tightness in her back and shoulders, was lightheaded and dizzy, and arms tingled with lightheaded. +Nausea and vomiting since this morning. Denies abdominal pain + Chills last night, no fever. Does not feel feverish Bowel movements have been 'good, normal.' No mckinney stools. No black or bloody BMs. No pain with meals No burnign with urination. No blood in her urine. 'I can tell by the color of my urine and it getting clouding and having to go more often I have a UTI.' Multiple UTIs in the past, feels current urine odor/concentration and increased low volume frequency has ercia there for ~2 days. Got 4x baby aspirin in ambulance. Pain in her chest had resolved prior to aspirin/EMS arrival. Lasted on 10-15 minutes. No problems with chest pain prior to this morning. Reports had been walking post cardioversion well with no shortness of breath or pain No hstory of SC No history of bleeding problems Takes ozempic, no insulin CKD at baseline Medical History: Reviewed Medications: Reviewed. Took eliquis this morning, took 4x baby aspirin in the ambulance Surgical History: Reviewed Family history: Reviewed Allergies: Reviewed Social History: No tobacco product use current or former. Rare social alcohol use. No med marijuana or rec drug use. Code Status: Full Code Allergies Allergy/AdvReac Type Severity Reaction Status Date / Time tetracycline Allergy Severe RASH ON Verified 12/25/22 14:59 FACE Argiywb-WCT-ZmL Reductase AdvReac Intermediate LE edema Verified 12/25/22 14:59 Inhibitor [Bppeyvn-Nkw-Suu Reductase Inhibitor] oxycodone AdvReac Mild Drowsy Verified 12/25/22 14:59 Home Medications Medication Instructions Recorded Confirmed Type cholecalciferol (vitamin D3) 25 1,000 unit PO QAM 10/26/18 12/25/22 History mcg (1,000 unit) capsule (Vitamin D3) magnesium 250 mg tablet 250 mg PO QAM 10/26/18 12/25/22 History acetaminophen 500 mg tablet 1,000 mg PO Q6H PRN Pain 12/24/18 12/25/22 History (Tylenol Extra Strength) cyclobenzaprine 10 mg tablet 10 mg PO HS 04/21/21 12/25/22 History albuterol sulfate 90 mcg/actuation 2 puff inhalation QID PRN 04/02/22 12/25/22 Rx aerosol inhaler (Ventolin HFA) shortness of breath or wheezing #8.5 grams levothyroxine 100 mcg tablet 100 mcg PO QAM #90 tabs 09/16/22 12/25/22 Rx prednisone 5 mg tablet 10 mg PO QPM 11/13/22 12/25/22 History semaglutide 0.25 mg or 0.5 mg (2 0.25 mg (0.2 mL) subcut ONCE #1.5 11/25/22 12/25/22 Rx mg/1.5 mL) subcutaneous pen mL injector (Ozempic) apixaban 5 mg tablet (Eliquis) 5 mg PO BID #180 tabs 12/02/22 12/25/22 Rx L.acidop,casei,lactis,rham-B.lact,reyes 1 cap PO HS 12/12/22 12/25/22 History 625 mg (10 billion cell) capsule (Advanced Probiotic) gabapentin 100 mg capsule 100 - 300 mg PO HS 12/12/22 12/25/22 History metoprolol succinate 100 mg 100 mg PO BID #60 tabs 12/12/22 12/25/22 Rx tablet,extended release 24 hr omeprazole 40 mg capsule,delayed 40 mg PO QAM 12/12/22 12/25/22 History release furosemide 20 mg tablet (Lasix) 20 mg PO DAILY PRN edema of legs 12/13/22 12/25/22 Rx #30 tabs alirocumab 75 mg/mL subcutaneous 75 mg subcut Q14D #2 mL 12/23/22 12/25/22 Rx pen injector (Praluent Pen) Past Med/Surg History Medical History (HFpEF) heart failure with preserved ejection fraction Acute congestive heart failure 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--per pt due to clot, cleared from neurology--follows with PCP--has slight weakness on left side Acute on chronic kidney failure Acute respiratory failure with hypoxia AISHWARYA (acute kidney injury) Anemia of chronic disease Anxiety Bilateral leg edema Chronic kidney disease, stage 3b Diabetes mellitus type II, controlled Exertional chest pain GERD (gastroesophageal reflux disease) History of COVID-19 10/04/21--hospitalized @ [facility] for 9 days--no issues now History of MRSA infection lumbar surgical incision s/p vanco/ceftriaxone/bactrim per 04/2019 [facility] discharge summary History of recent blood transfusion 09/18/22 @ [facility] Hospital discharge follow-up Hyperlipidemia Hypertension Hypothyroidism Immunosuppression due to drug therapy Lumbar radiculopathy Persistent atrial fibrillation follows with Dr. Pedraza Recurrent UTI Rheumatoid arthritis Sepsis recent hospitalization 09/17/22 @ [facility] due to UTI Spinal stenosis Stenosis of left internal carotid artery 50-69% stenosis of left ICA per 04/2021 neck CTA Stenosis of left vertebral artery Approximately 90% stenosis within V4 segment of left vertebral artery per 04/21/2021 neck CTA Surgical History History of x2 History of hysterectomy total History of lumbar surgery Lumbar Spine Wound Revision 05/2019 Dr. Mane @ [facility] History of total left knee replacement Hx of tonsillectomy Status post laminectomy with spinal fusion L2-L5 laminectomy/fusion: 12/24/18: Grade view 1, MAC#3, ETT 7.0 Family History Father Diabetes Lung cancer Cancer Hypertension Mother Malignant neoplasm of brain Diabetes Brain tumor Cancer Hypertension Aunt Breast cancer Sister Hypertension Other No family history of adverse response to anesthesia Denies family history of Ovarian cancer Prostate cancer Myocardial infarction Colorectal cancer Social History Smoking Status: Never smoker Second Hand Exposure: No; Hx Alcohol Use: Yes Alcohol type: wine Alcohol Intake Frequency: 2-4 x/Month Hx Substance Use: No Preferred Language: Welsh Communication Ability: Effective Visual Impairment: Limited Hearing Ability: Normal 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 Feels Safe at Home: Yes Childhood Exposure to Second-Hand Smoke: Yes caffeine: Yes Dental Care, Regularly: Yes Physical Activity Frequency: 5-6 Times per Week Physical Activity Frequency Comment: gym Seatbelt Use: always Sunscreen Use: Yes Do you think of yourself as: straight/heterosexual Assistive Devices: Cane and Glasses Review of Systems Review of Systems: All systems reviewed & are unremarkable except as noted in HPI & below Physical Exam Physical Exam: General: A&Ox3. Appears ill, cooperative, answers questions appropriately HEENT: Atraumatic, normocephalic. Vision/hearing grossly intact Pulm: CTAB A&P. -wheezes, -rales, -rhonchi. Symmetrical chest rise. No increased work of breathing. No respiratory distress. Cardiac: Regular, tachycardic. Radial pulses intact and symmetrical. Abdominal: Nontender, nondistended, soft. BS present. Caraballo sign is not present, there is no abdominal tenderness to palpation. No rebound. Extremities: Mild pitting edema of the lower extremities bilaterally with c ompression socks in place. No asymmetry. Baseline per patient. Sensation to soft touch on the plantar surface is diminished, sensation to soft touch in the ankles is intact bilaterally. Ankle dorsiflexion/plantarflexion 5/5. Cap refill is sluggish approximately 2 seconds at the hallux. User Experience Researcher strength is 5/5 bilaterally, radial pulse is intact and symmetrical. Results & Data Results & Data Vital Signs (Past 12 Hours) Vital Signs Temp Pulse Resp BP Pulse Ox O2 Del Method O2 Flow Rate 12/25/22 14:05 102 H 14 90/47 L 95 12/25/22 14:03 101 H 18 87/48 L 95 12/25/22 14:00 103 H 19 91/44 L 88 L 12/25/22 13:54 103 H 17 86/52 L 74 L 12/25/22 13:30 108 H 20 81/46 L 12/25/22 13:29 104 H 22 89/36 L 95 12/25/22 13:10 105 H 20 92 12/25/22 13:44 105 H 12/25/22 13:27 36.7 C 98 H 15 89/36 L 93 Nasal Cannula 4 12/25/22 13:07 107 H 22 84/43 L 94 12/25/22 13:05 106 H 21 73/37 L 12/25/22 12:30 97/49 L 12/25/22 12:23 105 H 18 105/54 L 95 12/25/22 12:14 104 H 16 99 12/25/22 12:14 89/67 L 12/25/22 12:00 102 H 16 86/59 L 96 12/25/22 11:52 99 H 18 99/55 L 93 12/25/22 11:36 104 H 16 91/44 L 98 12/25/22 11:30 100 H 20 77/53 L 12/25/22 11:00 102 H 26 H 102/58 L 96 12/25/22 10:30 103 H 15 110/62 95 12/25/22 10:17 109 H 20 87/54 L 79 L 12/25/22 10:11 109 H 16 103/63 91 12/25/22 10:10 103 H 17 92 12/25/22 10:00 89/56 L 12/25/22 10:18 91 Nasal Cannula 2 12/25/22 10:12 89 L Nasal Cannula 0 12/25/22 09:51 109 H 20 96/57 L 91 12/25/22 09:43 110 H 22 12/25/22 10:02 95 Room Air 0 12/25/22 10:01 105 H 20 95 Room Air 12/25/22 09:44 110 H 12/25/22 09:40 36.4 C L 105 H 18 75/56 L 95 Room Air PG Care Time/CCT Total # of Minutes Spent Total Time Spent with Patient: Total time spent is greater than 50% in coordination of care (as documented) at patient's floor/unit and/or counseling patient: Coding Level of Care Code 38384 INT INP/OBS CARE 375MIN Diagnoses Sepsis A41.9 (HFpEF) heart failure with preserved ejection fraction I50.30 Anemia of chronic disease D63.8 Chronic kidney disease, stage 3b N18.32 Diabetes mellitus with neuropathy E11.40 Hyperlipidemia E78.5 Hypertension I10 Hypertension type: essential hypertension Hypothyroidism E03.9 Hypothyroidism type: unspecified Rheumatoid arthritis M06.9 Rheumatoid arthritis location: multiple sites Rheumatoid factor presence: unspecified presence TIA involving vertebral artery G45.0 (7) Hypertension Hypertension type: essential hypertension Qualified Code(s): I10 - Essential (primary) hypertension (8) Hypothyroidism Hypothyroidism type: unspecified Qualified Code(s): E03.9 - Hypothyroidism, unspecified (9) Rheumatoid arthritis Rheumatoid arthritis location: multiple sites Rheumatoid factor presence: unspecified presence Qualified Code(s): M06.9 - Rheumatoid arthritis, unspecified
[2022-12-25] MEDS ORDERED: HYDROCORTISONE SOD SUCCINATE 100 MG/2 ML VIAL IV STA (14:33)
--- NOTE | 2022-12-25 16:09 | Surgery Consultation ---
Date of Consultation December 25, 2022 Assessment & Plan (1) Choledocholithiasis: CT images and results personally viewed by myself, no significant amount of inflammation around the gallbladder She has no abdominal pain at this point She does have choledocholithiasis, will get a right upper quadrant ultrasound to confirm gallstones and look at the duct size GI is tentatively planning an ERCP tomorrow She does take Eliquis which will need to be held for 2 days, we will tentatively plan for cholecystectomy on December 27 She is being admitted to the medical service and I do not think that her septic condition is related to her gallbladder History of Present Illness Reason for Consultation: Choledocholithiasis, questionable cholecystitis History of Present Illness This is a 67-year-old female who presented to the ER today with sharp back pain and chest pain radiating down her left arm. She states this started this morning. She denies any abdominal pain. She does have a history of A-fib and takes Eliquis. She underwent a cardioversion on December 13. She denies any jaundice, scleral icterus, acholic stools, tea colored urine. Prior abdominal surgeries include 2 C-sections and a hysterectomy. She has been hypotensive in the ER requiring pressor support. She also states she thinks she has a UTI for the last couple days. Allergies Allergy/AdvReac Type Severity Reaction Status Date / Time tetracycline Allergy Severe RASH ON Verified 12/25/22 14:59 FACE Kfyeoub-UYF-FrT Reductase AdvReac Intermediate LE edema Verified 12/25/22 14:59 Inhibitor [Cdnxgxd-Whl-Nxv Reductase Inhibitor] oxycodone AdvReac Mild Drowsy Verified 12/25/22 14:59 Home Medications Medication Instructions Recorded Confirmed Type cholecalciferol (vitamin D3) 25 1,000 unit PO QAM 10/26/18 12/25/22 History mcg (1,000 unit) capsule (Vitamin D3) magnesium 250 mg tablet 250 mg PO QAM 10/26/18 12/25/22 History acetaminophen 500 mg tablet 1,000 mg PO Q6H PRN Pain 12/24/18 12/25/22 History (Tylenol Extra Strength) cyclobenzaprine 10 mg tablet 10 mg PO HS 04/21/21 12/25/22 History albuterol sulfate 90 mcg/actuation 2 puff inhalation QID PRN 04/02/22 12/25/22 Rx aerosol inhaler (Ventolin HFA) shortness of breath or wheezing #8.5 grams levothyroxine 100 mcg tablet 100 mcg PO QAM #90 tabs 09/16/22 12/25/22 Rx prednisone 5 mg tablet 10 mg PO QPM 11/13/22 12/25/22 History semaglutide 0.25 mg or 0.5 mg (2 0.25 mg (0.2 mL) subcut ONCE #1.5 11/25/22 12/25/22 Rx mg/1.5 mL) subcutaneous pen mL injector (Ozempic) apixaban 5 mg tablet (Eliquis) 5 mg PO BID #180 tabs 12/02/22 12/25/22 Rx L.acidop,casei,lactis,rham-B.lact,reyes 1 cap PO HS 12/12/22 12/25/22 History 625 mg (10 billion cell) capsule (Advanced Probiotic) gabapentin 100 mg capsule 100 - 300 mg PO HS 12/12/22 12/25/22 History metoprolol succinate 100 mg 100 mg PO BID #60 tabs 12/12/22 12/25/22 Rx tablet,extended release 24 hr omeprazole 40 mg capsule,delayed 40 mg PO QAM 12/12/22 12/25/22 History release furosemide 20 mg tablet (Lasix) 20 mg PO DAILY PRN edema of legs 12/13/22 12/25/22 Rx #30 tabs alirocumab 75 mg/mL subcutaneous 75 mg subcut Q14D #2 mL 12/23/22 12/25/22 Rx pen injector (Praluent Pen) Patient History Medical History (Updated 12/25/22 @ 16:18 by Otto Fish, ) (HFpEF) heart failure with preserved ejection fraction Acute congestive heart failure 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--per pt due to clot, cleared from neurology--follows with PCP--has slight weakness on left side Acute on chronic kidney failure Acute respiratory failure with hypoxia AISHWARYA (acute kidney injury) Anemia of chronic disease Anxiety Bilateral leg edema Chronic kidney disease, stage 3b Diabetes mellitus type II, controlled Exertional chest pain GERD (gastroesophageal reflux disease) History of COVID-19 10/04/21--hospitalized @ [facility] for 9 days--no issues now History of MRSA infection lumbar surgical incision s/p vanco/ceftriaxone/bactrim per 04/2019 [facility] discharge summary History of recent blood transfusion 09/18/22 @ [facility] Hospital discharge follow-up Hyperlipidemia Hypertension Hypothyroidism Immunosuppression due to drug therapy Lumbar radiculopathy Persistent atrial fibrillation follows with Dr. Pedraza Recurrent UTI Rheumatoid arthritis Sepsis recent hospitalization 09/17/22 @ [facility] due to UTI Spinal stenosis Stenosis of left internal carotid artery 50-69% stenosis of left ICA per 04/2021 neck CTA Stenosis of left vertebral artery Approximately 90% stenosis within V4 segment of left vertebral artery per 04/21/2021 neck CTA Surgical History History of x2 History of hysterectomy total History of lumbar surgery Lumbar Spine Wound Revision 05/2019 Dr. Mane @ [facility] History of total left knee replacement Hx of tonsillectomy Status post laminectomy with spinal fusion L2-L5 laminectomy/fusion: 12/24/18: Grade view 1, MAC#3, ETT 7.0 Family History Father Diabetes Lung cancer Cancer Hypertension Mother Malignant neoplasm of brain Diabetes Brain tumor Cancer Hypertension Aunt Breast cancer Sister Hypertension Other No family history of adverse response to anesthesia Denies family history of Ovarian cancer Prostate cancer Myocardial infarction Colorectal cancer Social History Smoking Status: Never smoker Second Hand Exposure: No; Hx Alcohol Use: Yes Alcohol type: wine Alcohol Intake Frequency: 2-4 x/Month Hx Substance Use: No Preferred Language: Maori Communication Ability: Effective Visual Impairment: Limited Hearing Ability: Normal Data Report Analyst Required: No Beliefs That Will Affect Care: None marital status: Current Living Situation: Spouse Current Living Situation Comment: 1 level home current occupational status: retired How many Children do You have: 2 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 Feels Safe at Home: Yes Childhood Exposure to Second-Hand Smoke: Yes caffeine: Yes Dental Care, Regularly: Yes Physical Activity Frequency: 5-6 Times per Week Physical Activity Frequency Comment: gym Seatbelt Use: always Sunscreen Use: Yes Do you think of yourself as: straight/heterosexual Assistive Devices: Cane and Glasses Review of Systems Constitutional: no fever and no chills Eyes: no worsening vision Ear, Nose, Mouth, Throat: no ear pain and no hearing loss Respiratory: no cough and no dyspnea Cardiovascular: no chest pain and no dyspnea on exertion Gastrointestinal: no abdominal pain, no nausea and no vomiting Genitourinary: + urinary frequency; no dysuria and no urinary incontinence Musculoskeletal: no back pain and no neck pain Integumentary: no acne and no rash Neurologic: no headache(s) Psychiatric: no behavioral changes and no depression Hematologic / Lymphatic: no easy bleeding and no easy bruising Physical Exam Constitutional: WD/WN, vitals as above Eyes: PERRL, conjunctivae normal, anicteric sclerae ENMT: external ear and nose normal, oropharynx normal Neck: trachea midline, no thyromegaly Respiratory: normal respiratory effort, lungs clear to auscultation Cardiovascular: Rate/Rhythm: + tachycardic and + irregularly irregular Gastrointestinal (Abdomen): Inspection/Auscultation: abdomen normal to inspection; abdomen not distended Percussion/Palpation: abdomen soft; abdomen nontender, no guarding, abdomen not rigid and no hernia Musculoskeletal: no cyanosis or clubbing, extremities motor strength 5/5 Skin: no rashes, warm and dry Neurologic: PERRL, EOMI, accommodation nl, no face palsy, no dysarthria Psychiatric: A+Ox3, euthymic affect Results & Data Vital Signs (Past 12 Hours) Vital Signs Temp Pulse Pulse Resp BP BP Pulse Ox 12/25/22 15:50 12/25/22 15:01 36.5 C 106 H 18 99/59 L 95 12/25/22 14:05 102 H 14 90/47 L 95 12/25/22 14:03 101 H 18 87/48 L 95 12/25/22 14:00 103 H 19 91/44 L 88 L 12/25/22 13:54 103 H 17 86/52 L 74 L 12/25/22 13:30 108 H 20 81/46 L 12/25/22 13:29 104 H 22 89/36 L 95 12/25/22 13:10 105 H 20 92 12/25/22 13:44 105 H 12/25/22 13:27 36.7 C 98 H 15 89/36 L 93 12/25/22 13:07 107 H 22 84/43 L 94 12/25/22 13:05 106 H 21 73/37 L 12/25/22 12:30 97/49 L 12/25/22 12:23 105 H 18 105/54 L 95 12/25/22 12:14 104 H 16 99 12/25/22 12:14 89/67 L 12/25/22 12:00 102 H 16 86/59 L 96 12/25/22 11:52 99 H 18 99/55 L 93 12/25/22 11:36 104 H 16 91/44 L 98 12/25/22 11:30 100 H 20 77/53 L 12/25/22 11:00 102 H 26 H 102/58 L 96 12/25/22 10:30 103 H 15 110/62 95 12/25/22 10:17 109 H 20 87/54 L 79 L 12/25/22 10:11 109 H 16 103/63 91 12/25/22 10:10 103 H 17 92 12/25/22 10:00 89/56 L 12/25/22 10:18 91 12/25/22 10:12 89 L 12/25/22 09:51 109 H 20 96/57 L 91 12/25/22 09:43 110 H 22 12/25/22 10:02 95 12/25/22 10:01 105 H 20 95 12/25/22 09:44 110 H 12/25/22 09:40 36.4 C L 105 H 18 75/56 L 95 O2 Del Method O2 Flow Rate 12/25/22 15:50 Nasal Cannula 2.5 12/25/22 15:01 Nasal Cannula 4 12/25/22 14:05 12/25/22 14:03 12/25/22 14:00 12/25/22 13:54 12/25/22 13:30 12/25/22 13:29 12/25/22 13:10 12/25/22 13:44 12/25/22 13:27 Nasal Cannula 4 12/25/22 13:07 12/25/22 13:05 12/25/22 12:30 12/25/22 12:23 12/25/22 12:14 12/25/22 12:14 12/25/22 12:00 12/25/22 11:52 12/25/22 11:36 12/25/22 11:30 12/25/22 11:00 12/25/22 10:30 12/25/22 10:17 12/25/22 10:11 12/25/22 10:10 12/25/22 10:00 12/25/22 10:18 Nasal Cannula 2 12/25/22 10:12 Nasal Cannula 0 12/25/22 09:51 12/25/22 09:43 12/25/22 10:02 Room Air 0 12/25/22 10:01 Room Air 12/25/22 09:44 12/25/22 09:40 Room Air Diagnostic Findings ABDOMEN AND PELVIS CT WITHOUT CONTRAST CT DOSE: HISTORY: chest/back/abd pain, near syncope TECHNIQUE: Multiaxial CT images of the abdomen and pelvis were performed without contrast. A dose lowering technique was utilized adhering to the principles of ALARA. COMPARISON STUDY: Abdomen and pelvis CT 09/17/2022. FINDINGS: The lung bases will be reported on the same day chest CT. Mild dependent changes and interlobular septal thickening seen at the lung bases. The heart is mildly enlarged. No pneumoperitoneum. No pneumatosis. There is an old moderate inferior endplate compression deformity at T12 with 4 mm of retropulsion, unchanged. This results in mild to moderate central canal narrowing. There is L3-L5 posterior decompression and fusion with pedicle screws and rods. The hardware appears intact. No acute fractures identified. Hepatic steatosis. There are few small stones within the gallbladder. No gallbladder wall thickening. Questionable minimal pericholecystic inflammatory change. There is a punctate focus of gas within the gallbladder which is new from the prior study. There is a 3 mm stone at the distal common bile duct on image 173. Therefore, these findings are concerning for an acute cholecystitis. The unenhanced spleen, adrenal glands, pancreas, and left kidney are unremarkable. Stable right-sided nephrolithiasis. No ureteral stones. No hydronephrosis. No retroperitoneal lymphadenopathy. Calcified plaque within the normal caliber abdominal aorta. No pelvic free fluid. The bladder is decompressed. Prior hysterectomy. No pelvic free fluid. Suboptimal evaluation for bowel pathology due to the lack of intravenous and oral contrast. However, there is no definite bowel wall thickening or obstruction. Normal appendix. Colonic diverticulosis. No evidence for acute diverticulitis. Mild thickening of the sigmoid colon is likely due to muscular hypertrophy from the diverticulosis. IMPRESSION: 1. There are few small stones within the gallbladder. Questionable minimal pericholecystic inflammatory change. There is a punctate focus of gas within the gallbladder which is new from the prior study. There is a 3 mm stone at the distal common bile duct. Therefore, these findings are concerning for an acute cholecystitis. Surgical or GI consultation recommended. 2. Mild interlobular septal thickening at the lung bases likely representing mild pulmonary edema. 3. Right-sided nephrolithiasis. No ureteral stones. No hydronephrosis. 4. Colonic diverticulosis. No evidence for acute diverticulitis. 5. No change in the moderate inferior endplate compression fracture at T12. 6. Additional findings as described above. PG Care Time/CCT Total # of Minutes Spent Total Time Spent with Patient: Total time spent is greater than 50% in coordination of care (as documented) at patient's floor/unit and/or counseling patient: Coding Level of Care Code 38923 OFFICE CONSULT LVL M Diagnoses Choledocholithiasis K80.50
--- NOTE | 2022-12-25 16:34 | Critical Care Consultation ---
Date of Consultation December 25, 2022 Assessment & Plan (1) Severe sepsis: (2) Hypotension: (3) Choledocholithiasis: (4) UTI (urinary tract infection): (5) Stage 3 chronic kidney disease: (6) Hypertension: (7) Atrial fibrillation with rapid ventricular response: (8) (HFpEF) heart failure with preserved ejection fraction: (9) TIA involving vertebral artery: Plan Reason Critically Ill: 67-year-old female with significant past medical history for rheumatoid arthritis who is chronically immunosuppressed on steroids presenting with severe sepsis with septic shock in the setting of infection from ? GI versus urinary sources requiring ongoing evaluation and management given need for pressor support after aggressive fluid resuscitation. NEURO - * CAM ICU: NEGATIVE * Prior history of TIA: * No residual symptoms. CARDIAC/VASCULAR - * Hypotension: * Likely in the setting of sepsis syndrome with associated renal insufficiency. * Received appropriate crystalloid resuscitation. * Currently requiring Levophed to maintain MAPs. * Titrate down Levophed as tolerated. Consider changing to phenylephrine if HR becomes an issue in the patient with A. fib. * Stress dose steroids as the patient does take 10 mg of prednisone daily. Her random cortisol was 10. * Elevated troponin: * Likely representing demand ischemia in the critically ill patient. * Trend troponins. * EKG without significant findings. * Consider echocardiogram to evaluate for any structural changes * A-fib with RVR: * Recently cardioverted by Dr. Pedraza on 12/13/2022. * Remains on metoprolol and Eliquis. * Last dose of Eliquis was this morning. * Will hold Eliquis in anticipation of ERCP and surgical intervention on Friday * Hypertension: * Hold on home medications at this time. * Restart home antihypertensive medications when clinically appropriate. * EKG: Sinus tachycardia at [address] elevations noted. No T wave inversions. QTc 463 ms * Monitor on telemetry. RESPIRATORY - * Hypoxia: * Patient requiring supplemental oxygen emergency department. * CT findings with pulmonary edema. * Likely multifactorial in the patient with underlying A-fib and poor forward flow as well as in the patient with a history of heart failure. * In no distress at this time. Saturating well on 2.5 L. * Encourage incentive spirometry and continue to monitor pulse oximetry, especially while continue to fluid resuscitate. GI/NUTRITION - * Choledocholithiasis: * Findings noted on CT with large stone in the common bile duct. * Abdomen soft and nontender to palpation. * General surgery evaluated and recommends cholecystectomy on Friday at the earliest. * Tentative plan for ERCP tomorrow by GI. RENAL/LYTES - * Hypokalemia: * Would recommend patient's potassium be replaced to remain closer to 4 and the patient with known history of A-fib with RVR * CKD 3: * Zamorano catheter placed for strict I&O in the critically ill patient requiring aggressive fluid resuscitation and pressors - * UTI: * Patient with recurrent UTIs. * Urinalysis suggestive of such. * Continue with broad-spectrum antibiotics. * Zamorano in place - Strict I&Os. ENDO - * DMII: * BSGs per unit protocol. ISS --> gtt per unit policy. * Hypothyroidism: * Continue home dosing of levothyroxine. HEME - * Anticoagulated on Eliquis. * Will hold for now in anticipation of EGD/Cholecystectomy ID - * Severe Sepsis with Septic Shock: * Concerning in the patient with presenting symptoms of upper abdominal pain/nausea/vomiting and CT findings of choledocholithiasis. * Patient to be evaluated for ERCP tomorrow which may provide more information and possible source of infection. * Thankfully, her abdominal exam is benign at this point. * Unfortunately, she has urinalysis findings consistent with UTI. * Will await her urine and blood cultures. * Currently covered with Zosyn. Would continue with anaerobic coverage while we continue to evaluate for possible GI sources of infection as well. * Lactate elevated at 3.8. Will trend to monitor with current treatment. * Procalcitonin greater than 30. LINES/IV ACCESS - * PIVs x3 * Zamorano catheter DVT PROPHYLAXIS - * Previously anticoagulated on Eliquis. Will hold in the setting of need for surgical intervention. * SCDs I have personally spent 45 minutes of critical care time in the direct man agement of this patient. This is a life/limb threatening event. This includes time spent evaluating patient, direct bedside care, chart review, placing orders, interpretation of diagnostic studies, discussion with consultants, patient, and family members, as well as other required patient management activities. This time is exclusive of all separately billable procedures, and teaching time and separate from and in addition to any other critical care service time. Thank you for allowing us to participate in the care of this patient. Please refer to my attending physician's documentation for any further recommendations. Supervising Physician Co-Signing Physician Notes Patient seen and examined. EMR reviewed. Images were independently reviewed. Discussed with critical care JUSTO and agree with his assessment and plan as noted above. Suspected cholecystitis with impacted stone. Plan for antibiotics and resusci tation overnight with ERCP and stone removal/stent placement tomorrow to follow with cholecystectomy. N.p.o. for now. Continue current antibiotics. At risk for relative adrenal insufficiency given low cortisol and on steroids in the outpatient setting so steroids for relative adrenal insufficiency have been initiated. Glycemic control. We will follow-up labs. Wean pressors as tolerated. Trend lactate. Discussed with bedside critical care nurse. History of Present Illness Reason for Consultation: Severe Sepsis Requesting Physician: Dr. Cesar Attending Physician: Dr. 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 Patient reports that approximately 5 AM this morning she developed a tightness in her back and across her shoulders. She reports that she felt lightheaded and nauseous. She states that the symptoms improved a bit, and then returned. She developed some dry heaving with associated vomiting then. She noticed numbness to the bilateral hands as this was going on. She was concerned as she does have a prior history of TIA which prompted her visit to the emergency department. Upon evaluation, the patient was noted to initially present with soft blood pressures which did respond to crystalloid administration. Unfortunately, the patient has escalated the point of requiring vasopressors in the form of Levophed for blood pressure support. Patient received Zosyn. During evaluation with CT scan, the patient was noted to have common bile duct obstruction with biliary stone. GI was contacted. They tentatively plan on performing ERCP t omorrow. Additionally, general surgery was consulted. It should be noted that the patient also had developed symptoms of suprapubic pain and dysuria this morning as well. The patient has longstanding history of recurrent UTIs. She reports that her symptoms feel similar. Patient is resting comfortably at this time. She reports feeling hungry, but otherwise denies any complaints of chest pain, palpitations, pleuritic pain, hemoptysis, headaches, dizziness, abdominal discomfort, hematuria, or dysuria. Allergies Allergy/AdvReac Type Severity Reaction Status Date / Time tetracycline Allergy Severe RASH ON Verified 12/25/22 14:59 FACE Aulrlxh-UJE-DdE Reductase AdvReac Intermediate LE edema Verified 12/25/22 14:59 Inhibitor [Rmftxki-Ndl-Nhb Reductase Inhibitor] oxycodone AdvReac Mild Drowsy Verified 12/25/22 14:59 Home Medications Medication Instructions Recorded Confirmed Type cholecalciferol (vitamin D3) 25 1,000 unit PO QAM 10/26/18 12/25/22 History mcg (1,000 unit) capsule (Vitamin D3) magnesium 250 mg tablet 250 mg PO QAM 10/26/18 12/25/22 History acetaminophen 500 mg tablet 1,000 mg PO Q6H PRN Pain 12/24/18 12/25/22 History (Tylenol Extra Strength) cyclobenzaprine 10 mg tablet 10 mg PO HS 04/21/21 12/25/22 History albuterol sulfate 90 mcg/actuation 2 puff inhalation QID PRN 04/02/22 12/25/22 Rx aerosol inhaler (Ventolin HFA) shortness of breath or wheezing #8.5 grams levothyroxine 100 mcg tablet 100 mcg PO QAM #90 tabs 09/16/22 12/25/22 Rx prednisone 5 mg tablet 10 mg PO QPM 11/13/22 12/25/22 History semaglutide 0.25 mg or 0.5 mg (2 0.25 mg (0.2 mL) subcut ONCE #1.5 11/25/22 12/25/22 Rx mg/1.5 mL) subcutaneous pen mL injector (Ozempic) apixaban 5 mg tablet (Eliquis) 5 mg PO BID #180 tabs 12/02/22 12/25/22 Rx L.acidop,casei,lactis,rham-B.lact,reyes 1 cap PO HS 12/12/22 12/25/22 History 625 mg (10 billion cell) capsule (Advanced Probiotic) gabapentin 100 mg capsule 100 - 300 mg PO HS 12/12/22 12/25/22 History metoprolol succinate 100 mg 100 mg PO BID #60 tabs 12/12/22 12/25/22 Rx tablet,extended release 24 hr omeprazole 40 mg capsule,delayed 40 mg PO QAM 12/12/22 12/25/22 History release furosemide 20 mg tablet (Lasix) 20 mg PO DAILY PRN edema of legs 12/13/22 12/25/22 Rx #30 tabs alirocumab 75 mg/mL subcutaneous 75 mg subcut Q14D #2 mL 12/23/22 12/25/22 Rx pen injector (Praluent Pen) Patient History Medical History (HFpEF) heart failure with preserved ejection fraction Acute congestive heart failure 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--per pt due to clot, cleared from neurology--follows with PCP--has slight weakness on left side Acute on chronic kidney failure Acute respiratory failure with hypoxia AISHWARYA (acute kidney injury) Anemia of chronic disease Anxiety Bilateral leg edema Chronic kidney disease, stage 3b Diabetes mellitus type II, controlled Exertional chest pain GERD (gastroesophageal reflux disease) History of COVID-19 10/04/21--hospitalized @ [facility] for 9 days--no issues now History of MRSA infection lumbar surgical incision s/p vanco/ceftriaxone/bactrim per 04/2019 [facility] discharge summary History of recent blood transfusion 09/18/22 @ [facility] Hospital discharge follow-up Hyperlipidemia Hypertension Hypothyroidism Immunosuppression due to drug therapy Lumbar radiculopathy Persistent atrial fibrillation follows with Dr. Pedraza Recurrent UTI Rheumatoid arthritis Sepsis recent hospitalization 09/17/22 @ [facility] due to UTI Spinal stenosis Stenosis of left internal carotid artery 50-69% stenosis of left ICA per 04/2021 neck CTA Stenosis of left vertebral artery Approximately 90% stenosis within V4 segment of left vertebral artery per 04/21/2021 neck CTA Surgical History History of x2 History of hysterectomy total History of lumbar surgery Lumbar Spine Wound Revision 05/2019 Dr. Mane @ [facility] History of total left knee replacement Hx of tonsillectomy Status post laminectomy with spinal fusion L2-L5 laminectomy/fusion: 12/24/18: Grade view 1, MAC#3, ETT 7.0 Family History Father Diabetes Lung cancer Cancer Hypertension Mother Malignant neoplasm of brain Diabetes Brain tumor Cancer Hypertension Aunt Breast cancer Sister Hypertension Other No family history of adverse response to anesthesia Denies family history of Ovarian cancer Prostate cancer Myocardial infarction Colorectal cancer Social History Smoking Status: Never smoker Second Hand Exposure: No; Hx Alcohol Use: Yes Alcohol type: wine Alcohol Intake Frequency: 2-4 x/Month Hx Substance Use: No Preferred Language: Moroccan Communication Ability: Effective Visual Impairment: Limited Hearing Ability: Normal Public Health Specialist Required: No Beliefs That Will Affect Care: None marital status: Current Living Situation: Spouse Current Living Situation Comment: 1 level home current occupational status: retired How many Children do You have: 2 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 Feels Safe at Home: Yes Childhood Exposure to Second-Hand Smoke: Yes caffeine: Yes Dental Care, Regularly: Yes Physical Activity Frequency: 5-6 Times per Week Physical Activity Frequency Comment: gym Seatbelt Use: always Sunscreen Use: Yes Do you think of yourself as: straight/heterosexual Assistive Devices: Cane and Glasses Review of Systems Review of Systems: A complete 10 point review of systems was reviewed with the patient with pertinent positives and negatives as per history of present illness. All else were negative. Physical Exam Physical Exam: VITAL SIGNS - Vital signs and nursing notes were reviewed. GENERAL - 67-year-old female appearing her stated age who is in no acute distress. Communicates well with provider and answers questions appropriately. HEAD - NC/AT. EYES - PERRL with EOMI bilaterally. Sclera anicteric. MOUTH/OROPHARYNX - Without perioral cyanosis. NECK - Neck with FROM. LUNGS - Chest wall symmetric without accessory muscle use, intercostals retractions, or central cyanosis. Normal vesicular breath sounds CTA B/L. No wheezes, rales, or rhonchi appreciated. CARDIAC - RRR with S1/S2. No murmur, rubs, or gallops appreciated. ABDOMEN - Abdominal contour obese without pulsations or visible masses. BS normoactive all four quadrants. No tenderness to palpation appreciated throughout. No guarding. No Rebound Tenderness. Negative Vovsing's. Negative Caraballo's. No palpable masses, hepatosplenomegaly, or ascites noted. EXTREMITIES - No clubbing or peripheral cyanosis. No pretibial edema present. +3/5 radial and dorsalis pedis pulses palpated throughout. +5/5 strength noted in UE/LE bilaterally. NEUROLOGIC - Cranial nerves II through XII grossly intact. PSYCH - A&Ox3 and cooperates fully with examiner. Pt is very pleasant and interacts well with examiner. Results & Data Results & Data Vital Signs (Past 12 Hours) Vital Signs Temp Pulse Pulse Resp BP BP Pulse Ox 12/25/22 15:50 12/25/22 15:01 36.5 C 106 H 18 99/59 L 95 12/25/22 14:05 102 H 14 90/47 L 95 12/25/22 14:03 101 H 18 87/48 L 95 12/25/22 14:00 103 H 19 91/44 L 88 L 12/25/22 13:54 103 H 17 86/52 L 74 L 12/25/22 13:30 108 H 20 81/46 L 12/25/22 13:29 104 H 22 89/36 L 95 12/25/22 13:10 105 H 20 92 12/25/22 13:44 105 H 12/25/22 13:27 36.7 C 98 H 15 89/36 L 93 12/25/22 13:07 107 H 22 84/43 L 94 12/25/22 13:05 106 H 21 73/37 L 12/25/22 12:30 97/49 L 12/25/22 12:23 105 H 18 105/54 L 95 12/25/22 12:14 104 H 16 99 12/25/22 12:14 89/67 L 12/25/22 12:00 102 H 16 86/59 L 96 12/25/22 11:52 99 H 18 99/55 L 93 12/25/22 11:36 104 H 16 91/44 L 98 12/25/22 11:30 100 H 20 77/53 L 12/25/22 11:00 102 H 26 H 102/58 L 96 12/25/22 10:30 103 H 15 110/62 95 12/25/22 10:17 109 H 20 87/54 L 79 L 12/25/22 10:11 109 H 16 103/63 91 12/25/22 10:10 103 H 17 92 12/25/22 10:00 89/56 L 12/25/22 10:18 91 12/25/22 10:12 89 L 12/25/22 09:51 109 H 20 96/57 L 91 12/25/22 09:43 110 H 22 12/25/22 10:02 95 12/25/22 10:01 105 H 20 95 12/25/22 09:44 110 H 12/25/22 09:40 36.4 C L 105 H 18 75/56 L 95 O2 Del Method O2 Flow Rate 12/25/22 15:50 Nasal Cannula 2.5 12/25/22 15:01 Nasal Cannula 4 12/25/22 14:05 12/25/22 14:03 12/25/22 14:00 12/25/22 13:54 12/25/22 13:30 12/25/22 13:29 12/25/22 13:10 12/25/22 13:44 12/25/22 13:27 Nasal Cannula 4 12/25/22 13:07 12/25/22 13:05 12/25/22 12:30 12/25/22 12:23 12/25/22 12:14 12/25/22 12:14 12/25/22 12:00 12/25/22 11:52 12/25/22 11:36 12/25/22 11:30 12/25/22 11:00 12/25/22 10:30 12/25/22 10:17 12/25/22 10:11 12/25/22 10:10 12/25/22 10:00 12/25/22 10:18 Nasal Cannula 2 12/25/22 10:12 Nasal Cannula 0 12/25/22 09:51 12/25/22 09:43 12/25/22 10:02 Room Air 0 12/25/22 10:01 Room Air 12/25/22 09:44 12/25/22 09:40 Room Air Coding Level of Care Code 91459 CRITICAL CARE 1ST 30-74M Diagnoses Severe sepsis A41.9; R65.20 Hypotension I95.9 Hypotension type: unspecified hypotension type Choledocholithiasis K80.50 UTI (urinary tract infection) N39.0 Stage 3 chronic kidney disease N18.30 Hypertension I10 Atrial fibrillation with rapid ventricular response I48.91 (HFpEF) heart failure with preserved ejection fraction I50.30 TIA involving vertebral artery G45.0 Time Spent (min) 45 (2) Hypotension Hypotension type: unspecified hypotension type Qualified Code(s): I95.9 - Hypotension, unspecified
[2022-12-25] MEDS ORDERED: HEPARIN SODIUM/DEXTROSE 25,000 UNITS/500 ML BAG IV SCH (16:53)
[2022-12-25] MEDS ORDERED: Heparin IV Adult Wt-Based Low-Dose *NO* Bolus Protocol IV STA (17:10)
[2022-12-25] MEDS: POTASSIUM CHLORIDE / WTR 10 MEQ/100 ML PLCT IV SCH ×3 (17:55→21:22)
[2022-12-25] MEDS: PIPERACILLIN/TAZOBACTAM 3.375 GM in DEXTROSE 5% 100 ML IV SCH (17:56)
[2022-12-25] MEDS: ICU Protocol for HYPERglycemia SCH ×2 (17:56→21:03)
[2022-12-25] MEDS: NORMOSOL-R 1,000 ML IV SCH (17:56)
[2022-12-25 19:04] LABS: Partial Thromboplastin Ratio 0.7; Partial Thromboplastin Time 20.5 Seconds (21.0-31.0); Prothrombin Time 10.6 Seconds (9.0-12.0)
[2022-12-25] MEDS: FLUDROCORTISONE ACETATE 0.1 MG TAB PO SCH (19:06)
[2022-12-25] MEDS ORDERED: NORMOSOL-R 1,000 ML IV ONE (19:22)
[2022-12-25] MEDS: FAMOTIDINE 20 MG in SYRINGE 3 ML IV SCH (20:33)
[2022-12-25] MEDS: HYDROCORTISONE SOD 50 MG in SYRINGE 0 ML IV SCH (20:33)
[2022-12-25 21:05] LABS: Partial Thromboplastin Ratio 0.9; Partial Thromboplastin Time 25.7 Seconds (21.0-31.0)
--- NOTE | 2022-12-25 21:37 | Ultrasound Report ---
ULTRASOUND RIGHT UPPER QUADRANT ABDOMEN CLINICAL HISTORY: Cholelithiasis. COMPARISON STUDY: Abdominal CT dated 12/25/2022 TECHNIQUE: Real-time, grayscale, and color flow sonography of the right upper quadrant of the abdomen was performed. Images are reviewed in the transverse and longitudinal planes. FINDINGS: Liver: The liver is top normal in size and demonstrates heterogeneous increased echotexture indicatin g steatosis. Fatty sparing is seen adjacent to the gallbladder fossa. There is no intrahepatic biliar y ductal dilatation. The main portal vein is patent. Gallbladder: There are numerous calcified shadowing gallstones. The gallbladder wall is top normal in thickness. No pericholecystic fluid is seen. A sonographic Caraballo's sign is reportedly absent. The c ommon bile duct measures up to 0.4 cm in diameter. Pancreas: Visualized portions of the pancreatic head and body are normal in appearance. Right kidney: Survey images of the right kidney demonstrate cortical atrophy. Echotexture is normal. There is no hydronephrosis. Ascites: None. IMPRESSION: 1. Cholelithiasis without definitive sonographic evidence of acute cholecystitis. The CT findings rem ain concerning, and if there is clinical concern for acute cholecystitis a nuclear hepatobiliary scan should be obtained. 2. No intra or extrahepatic biliary ductal dilatation is seen. 3. Hepatic steatosis. ACT 112: Negative or not required by law. Electronically signed by: Yrn Gomez M.D. 12/25/2022 9:34 PM
[2022-12-25 23:42] LABS: BUN Creatinine Ratio 20.5 (10-20); Bilirubin Direct 0.1 mg/dl (0-0.2); Bilirubin,Total 0.5 mg/dl (0.2-1.0); Calcium 7.5 mg/dl (8.5-10.1); Creatinine Clr Calc Pharmacy 31.8 ml/min; Est GFR (African American) 32.1 ml/min; Est GFR (Non-African American) 27.7 ml/min; Magnesium 1.7 mg/dl (1.7-2.4); Phosphorus 5.3 mg/dl (2.5-4.9); Potassium 5.6 mmol/L (3.5-5.1); Total Protein 5.4 gm/dl (6.0-8.3)
[2022-12-25] MEDS ORDERED: SODIUM BICARB 8.4% INJ 50 MEQ/50 ML SYR IV STA (23:45)
[2022-12-25] MEDS ORDERED: DEXTROSE 50% 50 ML SYRINGE IV ONE (23:45)
[2022-12-26] MEDS ORDERED: INSULIN HUMAN REGULAR PER UNIT 10 UNITS in SYRINGE 9.9 ML IV STA (00:07)
[2022-12-26] MEDS: PIPERACILLIN/TAZOBACTAM 3.375 GM in DEXTROSE 5% 100 ML IV SCH ×3 (02:25→18:16)
[2022-12-26] MEDS: HYDROCORTISONE SOD 50 MG in SYRINGE 0 ML IV SCH ×3 (03:21→20:16)
[2022-12-26 05:17] LABS: Albumin Level 2.9 gm/dl (3.4-5.0); BUN Creatinine Ratio 21.4 (10-20); Bilirubin Direct 0.1 mg/dl (0-0.2); Bilirubin,Total 0.4 mg/dl (0.2-1.0); Calcium 7.4 mg/dl (8.5-10.1); Creatinine Clr Calc Pharmacy 31.5 ml/min; Est GFR (African American) 31.7 ml/min; Est GFR (Non-African American) 27.3 ml/min; Magnesium 1.8 mg/dl (1.7-2.4); Phosphorus 4.5 mg/dl (2.5-4.9); Potassium 4.5 mmol/L (3.5-5.1); Total Protein 5.2 gm/dl (6.0-8.3)
[2022-12-26 05:24] LABS: Partial Thromboplastin Ratio 1.5; Partial Thromboplastin Time 40.6 Seconds (21.0-31.0)
[2022-12-26 05:27] LABS: Basophils # (auto) 0.05 K/uL (0-0.2); Basophils % (auto) 0.2 %; Eosinophils # (auto) 0.02 K/uL (0-0.50); Eosinophils % (auto) 0.1 %; Hematocrit (blood only) 29.2 % (37.0-47.0); Hemoglobin 9.1 g/dl (12.0-16.0); Mean Corpuscular Hemoglobin 28.1 pg (25.0-34.0); Mean Corpuscular Hgb Conc 31.2 g/dL (32.0-36.0); Mean Corpuscular Volume 90.1 fL (80.0-100.0); Mean Platelet Volume 10.3 fL (9.4-12.4); Monocytes # (auto) 0.53 K/uL (0.11-0.59); Monocytes % (auto) 2.6 %; Neutrophils # (auto) 19.47 K/uL (1.40-6.50); Neutrophils % (auto) 95.1 %; Platelet Count 249 K/uL (130-400); RDW Coefficient of Variation 15.4 % (11.5-14.5); Red Blood Count 3.24 M/uL (4.20-5.40); White Blood Count 20.47 K/ul (4.8-10.8)
[2022-12-26] MEDS: NORMOSOL-R 1,000 ML IV SCH ×2 (05:43→14:35)
[2022-12-26] MEDS: MAGNESIUM SULFATE / D5W 1 GM/100 ML BAG IV SCH ×2 (06:37→08:24)
[2022-12-26] MEDS: ICU Protocol for HYPERglycemia SCH ×4 (07:41→20:21)
[2022-12-26] MEDS: FAMOTIDINE 20 MG in SYRINGE 3 ML IV SCH ×2 (07:45→20:16)
[2022-12-26] MEDS: FLUDROCORTISONE ACETATE 0.1 MG TAB PO SCH (07:45)
--- NOTE | 2022-12-26 08:43 | Gastrointestinal Consultation ---
Date of Consultation December 26, 2022 Assessment & Plan (1) Choledocholithiasis: 3mm distal CBD stone. Sepsis secondary to UTI vs this. Plan 1. Plan for ERCP this afternoon w sphincterotomy and stone extraction by Dr. Villasenor. This procedure was described in detail to the pt, showing her illustrations of the CBD and description of the procedure as well as risks of bleeding, pancreatitis, tearing of the common bile duct. 2. Troponin are elevated and she carries hx of CHF. Consider cardiac eval. 3. Please keep NPO. 4. Continue antibiotics (on Zosyn). 5. Anticoagulants: Last dose of Eliquis yesterday AM. Heparin was held at 0730 (on heparin for A-fib - also has hx of CVA). Supervising Physician Co-Signing Physician Notes I have seen and examined the patient with WILLIAN Velasquez whose note reflects our findings and plan. Patient admitted with UTI symptoms (urine growing gram negatives)and sepsis noted to have a 3mm stone in the CBD on CT scan. Hemodynamics improved with IVF and abx. Troponin is elevated and cardiology to see her given recent AF and cardioversion. ERCP planned for stone removal. History of Present Illness Reason for Consultation: Choledocholithiasis Requesting Physician: Dr. Cesar Attending Physician: Yaritza Hunter MD History of Present Illness Ms. Daniela Champagne is a 67 yr old female pt of Dr. Arzola w a hx of Rh Arthritis, carotid artery stenosis, CHF/preserved EF, DM-2, HTN, hypothyroid, CVA 2020, A fib ablated a month ago (on Eliquis, most recent dose 12/25 AM). She awakened w chest/shoulder pressure late on night/early Fri and was brought to [facility] where she had significant leukocytosis, weakness and US suggested gallstones and CT suggested a 2mm distal CBD stone. Pt denies hx of post prandial pain, yellow skin/eyes or fevers. She has recurrent UTIs urine cx on admission is growing gram (-) cocci. She had a bump in her transaminases: AST 93 yest->118 today, ALT 66 yest->97 today. bili, Alk Phos and lipase remain normal. Her troponin was normal on arrival but now elevated x 2, most recent = 172. The pt is seen/examined while she is resting in bed, is AAO, w mild tachy at 96, was hypotensive on arrival but now hemodynamically stable, BP 116/65, saturating well on 1L O2via NC. Allergies Allergy/AdvReac Type Severity Reaction Status Date / Time tetracycline Allergy Severe RASH ON Verified 12/25/22 14:59 FACE Gjqvdyq-YRM-OmR Reductase AdvReac Intermediate LE edema Verified 12/25/22 14:59 Inhibitor [Bikqned-Jfh-Qgq Reductase Inhibitor] oxycodone AdvReac Mild Drowsy Verified 12/26/22 07:36 Home Medications Medication Instructions Recorded Confirmed Type cholecalciferol (vitamin D3) 25 1,000 unit PO QAM 10/26/18 12/25/22 History mcg (1,000 unit) capsule (Vitamin D3) magnesium 250 mg tablet 250 mg PO QAM 10/26/18 12/25/22 History acetaminophen 500 mg tablet 1,000 mg PO Q6H PRN Pain 12/24/18 12/25/22 History (Tylenol Extra Strength) cyclobenzaprine 10 mg tablet 10 mg PO HS 04/21/21 12/25/22 History albuterol sulfate 90 mcg/actuation 2 puff inhalation QID PRN 04/02/22 12/25/22 Rx aerosol inhaler (Ventolin HFA) shortness of breath or wheezing #8.5 grams levothyroxine 100 mcg tablet 100 mcg PO QAM #90 tabs 09/16/22 12/25/22 Rx prednisone 5 mg tablet 10 mg PO QPM 11/13/22 12/25/22 History semaglutide 0.25 mg or 0.5 mg (2 0.25 mg (0.2 mL) subcut ONCE #1.5 11/25/22 12/25/22 Rx mg/1.5 mL) subcutaneous pen mL injector (Ozempic) apixaban 5 mg tablet (Eliquis) 5 mg PO BID #180 tabs 12/02/22 12/25/22 Rx L.acidop,casei,lactis,rham-B.lact,reyes 1 cap PO HS 12/12/22 12/25/22 History 625 mg (10 billion cell) capsule (Advanced Probiotic) gabapentin 100 mg capsule 100 - 300 mg PO HS 12/12/22 12/25/22 History metoprolol succinate 100 mg 100 mg PO BID #60 tabs 12/12/22 12/25/22 Rx tablet,extended release 24 hr omeprazole 40 mg capsule,delayed 40 mg PO QAM 12/12/22 12/25/22 History release furosemide 20 mg tablet (Lasix) 20 mg PO DAILY PRN edema of legs 12/13/22 12/25/22 Rx #30 tabs alirocumab 75 mg/mL subcutaneous 75 mg subcut Q14D #2 mL 12/23/22 12/25/22 Rx pen injector (Praluent Pen) Patient History Medical History (HFpEF) heart failure with preserved ejection fraction Acute congestive heart failure 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--per pt due to clot, cleared from neurology--follows with PCP--has slight weakness on left side Acute on chronic kidney failure Acute respiratory failure with hypoxia AISHWARYA (acute kidney injury) Anemia of chronic disease Anxiety Bilateral leg edema Chronic kidney disease, stage 3b Diabetes mellitus type II, controlled Exertional chest pain GERD (gastroesophageal reflux disease) History of COVID-19 10/04/21--hospitalized @ [facility] for 9 days--no issues now History of MRSA infection lumbar surgical incision s/p vanco/ceftriaxone/bactrim per 04/2019 [facility] discharge summary History of recent blood transfusion 09/18/22 @ [facility] Hospital discharge follow-up Hyperlipidemia Hypertension Hypothyroidism Immunosuppression due to drug therapy Lumbar radiculopathy Persistent atrial fibrillation follows with Dr. Pedraza Recurrent UTI Rheumatoid arthritis Sepsis recent hospitalization 09/17/22 @ [facility] due to UTI Spinal stenosis Stenosis of left internal carotid artery 50-69% stenosis of left ICA per 04/2021 neck CTA Stenosis of left vertebral artery Approximately 90% stenosis within V4 segment of left vertebral artery per neck CTA Surgical History History of x2 History of hysterectomy total History of lumbar surgery Lumbar Spine Wound Revision 05/2019 Dr. Mane @ [facility] History of total left knee replacement Hx of tonsillectomy Status post laminectomy with spinal fusion L2-L5 laminectomy/fusion: 12/24/18: Grade view 1, MAC#3, ETT 7.0 Family History Father Diabetes Lung cancer Cancer Hypertension Mother Malignant neoplasm of brain Diabetes Brain tumor Cancer Hypertension Aunt Breast cancer Sister Hypertension Other No family history of adverse response to anesthesia Denies family history of Ovarian cancer Prostate cancer Myocardial infarction Colorectal cancer Social History Smoking Status: Never smoker Second Hand Exposure: No; Hx Alcohol Use: Yes Alcohol type: wine Alcohol Intake Frequency: 2-4 x/Month Hx Substance Use: No Preferred Language: Niuean Communication Ability: Effective Visual Impairment: Limited Hearing Ability: Normal Property Inspector Required: No Beliefs That Will Affect Care: None marital status: Current Living Situation: Spouse Current Living Situation Comment: 1 level home current occupational status: retired How many Children do You have: 2 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 Feels Safe at Home: Yes Childhood Exposure to Second-Hand Smoke: Yes caffeine: Yes Dental Care, Regularly: Yes Physical Activity Frequency: 5-6 Times per Week Physical Activity Frequency Comment: gym Seatbelt Use: always Sunscreen Use: Yes Do you think of yourself as: straight/heterosexual Assistive Devices: Cane and Glasses Review of Systems Review of Systems: ROS: Gen: + weakness, reports mild confusion prior to arrival. Denies fevers or weight loss Eyes: No eye redness, or pain, no recent vision changes Resp: No SOB, no cough Cardio: No palpitations/irregular beats, no chest pain GI: No abdominal pain, no nausea/vomiting; did have "pressure across the shoulders" : Denies pain on urination Skin: No jaundice, itching or new rashes Physical Exam Constitutional: well developed, well nourished, + ill appearing (chronically), well groomed, comfortable and + overweight Eyes: PERRL, conjunctivae normal, anicteric sclerae ENMT: external ear and nose normal, oropharynx normal Neck: trachea midline, no thyromegaly Respiratory: normal respiratory effort, lungs clear to auscultation Cardiovascular: RRR, no murmur, no edema Gastrointestinal (Abdomen): normal bowel sounds, soft, nontender, no hepatosplenomegaly Musculoskeletal: no cyanosis or clubbing, extremities motor strength 5/5 Skin: no rashes, warm and dry no jaundice Neurologic: PERRL, EOMI, accommodation nl, no face palsy, no dysarthria Psychiatric: A+Ox3, euthymic affect Lymphatic: no cervical or axillary lymphadenopathy Results & Data Vital Signs (Past 12 Hours) Vital Signs Temp Pulse Pulse Resp BP BP Pulse Ox 12/26/22 08:00 12/26/22 08:00 36.3 C L 99 H 20 118/83 96 12/26/22 08:00 102 H 12/26/22 04:00 102 H 28 H 12/26/22 04:00 112/53 L 12/26/22 03:00 107 H 16 12/26/22 03:00 118/76 12/26/22 02:21 103 H 17 98 12/26/22 02:21 98/58 L 12/26/22 02:16 101 H 26 H 98 12/26/22 02:00 102 H 21 97 12/26/22 01:45 116/63 12/26/22 01:45 102 H 26 H 12/26/22 01:30 114/60 12/26/22 01:30 102 H 29 H 98 12/26/22 01:15 102 H 27 H 12/26/22 01:15 113/61 12/26/22 01:00 102 H 16 12/26/22 01:00 133/66 12/26/22 00:45 131/68 12/26/22 00:45 101 H 17 12/26/22 00:30 132/65 12/26/22 00:30 102 H 17 100 12/26/22 04:00 36.7 C 12/26/22 00:00 100 H 12/26/22 00:15 112/62 12/26/22 00:15 100 H 16 12/26/22 00:00 100 H 22 100 12/26/22 00:00 108/68 12/25/22 23:45 101/56 L 12/25/22 23:45 99 H 17 100 12/25/22 23:30 99 H 20 12/25/22 23:30 99/63 L 12/25/22 23:15 119/71 12/25/22 23:15 99 H 15 12/25/22 23:00 99 H 23 12/25/22 23:00 117/63 12/25/22 22:47 102 H 14 88 L 12/25/22 22:47 124/65 12/25/22 22:30 93/61 L 12/25/22 22:30 102 H 19 91 12/25/22 22:15 98 H 20 99 12/25/22 22:15 112/59 L 12/25/22 22:01 21 98 12/25/22 22:01 104/60 12/25/22 22:00 99 H 18 97 12/26/22 00:30 36.7 C 12/25/22 21:45 99 H 14 98 12/25/22 21:45 105/55 L 12/25/22 21:30 99 H 16 99 12/25/22 21:30 98/57 L 12/25/22 21:15 98 H 16 99 12/25/22 21:15 110/67 12/25/22 21:00 99 H 22 99 12/25/22 21:00 121/70 12/25/22 20:45 98 H 20 96 12/25/22 20:45 105/65 O2 Del Method O2 Flow Rate 12/26/22 08:00 Room Air 12/26/22 08:00 Room Air 1 12/26/22 08:00 12/26/22 04:00 12/26/22 04:00 12/26/22 03:00 12/26/22 03:00 12/26/22 02:21 12/26/22 02:21 12/26/22 02:16 12/26/22 02:00 12/26/22 01:45 12/26/22 01:45 12/26/22 01:30 12/26/22 01:30 12/26/22 01:15 12/26/22 01:15 12/26/22 01:00 12/26/22 01:00 12/26/22 00:45 12/26/22 00:45 12/26/22 00:30 12/26/22 00:30 12/26/22 04:00 12/26/22 00:00 12/26/22 00:15 12/26/22 00:15 12/26/22 00:00 12/26/22 00:00 12/25/22 23:45 12/25/22 23:45 12/25/22 23:30 12/25/22 23:30 12/25/22 23:15 12/25/22 23:15 12/25/22 23:00 12/25/22 23:00 12/25/22 22:47 12/25/22 22:47 12/25/22 22:30 12/25/22 22:30 12/25/22 22:15 12/25/22 22:15 12/25/22 22:01 12/25/22 22:01 12/25/22 22:00 12/26/22 00:30 12/25/22 21:45 12/25/22 21:45 12/25/22 21:30 12/25/22 21:30 12/25/22 21:15 12/25/22 21:15 12/25/22 21:00 Nasal Cannula 2 12/25/22 21:00 12/25/22 20:45 12/25/22 20:45 Laboratory Results LFTs/lipase - see HPI WBC 20, Hb 9.1, Hct 29.2, plts 249, PT 40, INR 1.5, Na 138, K 4.5, Cl 108, Co2 21, BUN 40, Cr 1.87 glucose 175. Diagnostic Findings Liver US 12/25/22: 1. Cholelithiasis without definitive sonographic evidence of acute cholecystitis. The CT findings remain concerning, and if there is clinical concern for acute cholecystitis a nuclear hepatobiliary scan should be obtained. 2. No intra or extrahepatic biliary ductal dilatation is seen. 3. Hepatic steatosis. Non contrast CTAP 12/25/22: 1. There are few small stones within the gallbladder. Questionable minimal pericholecystic inflammatory change. There is a punctate focus of gas within the gallbladder which is new from the prior study. There is a 3 mm stone at the distal common bile duct. Therefore, these findings are concerning for an acute cholecystitis. Surgical or GI consultation recommended. 2. Mild interlobular septal thickening at the lung bases likely representing mild pulmonary edema. 3. Right-sided nephrolithiasis. No ureteral stones. No hydronephrosis. 4. Colonic diverticulosis. No evidence for acute diverticulitis. 5. No change in the moderate inferior endplate compression fracture at T12. 6. Additional findings as described above.
--- NOTE | 2022-12-26 09:17 | Critical Care Progress Note ---
Date of Service December 26, 2022 Assessment & Plan (1) Sepsis: (2) (HFpEF) heart failure with preserved ejection fraction: (3) Anemia of chronic disease: (4) Chronic kidney disease, stage 3b: (5) Diabetes mellitus with neuropathy: (6) Hyperlipidemia: (7) Hypertension: (8) Hypothyroidism: (9) Rheumatoid arthritis: (10) TIA involving vertebral artery: Plan Reason Critically Ill: 67 F with hx of hypothyroidism, A Fib on Eliquis (s/p Cardioversion 12/13), HFpEF, RA (on chronic prednisone), HLD, HTN, CKD3, hx of TIA, and DM who presented in severe sepsis w/ associated septic shock with undifferentiated source of infection (GI vs ). She was admitted for ICU management with pressor support and aggressive fluid resuscitation. NEURO - * CAM ICU: NEGATIVE * Prior history of TIA, w/o residual sx CARDIAC/VASCULAR - * Hypotension: Improving * Likely in the setting of sepsis syndrome with associated renal insufficiency. * Received appropriate crystalloid resuscitation, Normosol ongoing at 100 mls/hr * Required Levophed to maintain MAPs, last dose 12/25 @ 2100 * Consider changing to phenylephrine if HR becomes an issue in the patient with A. fib. * Stress dose steroids (Fludrocortisone/Hydrocortisone) as the patient does take 10 mg of prednisone daily at baseline. Her random cortisol was 10. * Taper down stress dose steroids * Elevated troponin: * Likely representing demand ischemia in the critically ill patient. * Troponin uptrending w/o chest pain/back pain/arm pain (23 to 133 to 172) * Echocardiogram not indicated at this time * Echo 11/07/22 showing moderate LVH, mild aortic sclerosis w/o stenosis, mild mitral stenosis, increased RVSP, and EF 65-70% * A-fib with RVR: * Recently cardioverted by Dr. Pedraza on 12/13/2022. * Remained on metoprolol and Eliquis at presentation * Eliquis held, last dose AM of 12/25 * Will hold Eliquis in anticipation of ERCP and surgical intervention on Friday * Hypertension: * Hold on home medications at this time. * Restart home antihypertensive medications when clinically appropriate. * EKG: Sinus tachycardia at [address] elevations noted. No T wave inversions. QTc 463 ms * Monitor on telemetry. RESPIRATORY - * Hypoxia * Patient requiring supplemental oxygen emergency department. * CT findings with pulmonary edema * Likely multifactorial in the patient with underlying A-fib and poor forward flow as well as in the patient with a history of heart failure. * In no distress at this time, currently at 96% on 1L, continue to wean off * Encourage incentive spirometry and continue to monitor pulse oximetry, especially while continue to fluid resuscitate. GI/NUTRITION - * Choledocholithiasis: * Findings noted on CT with large stone in the common bile duct. * Abdomen soft and nontender to palpation, Caraballo sign negative * General surgery evaluated and recommends cholecystectomy on Friday at the earliest. * Tentative plan for ERCP today (3-4PM), heparin held RENAL/LYTES * Hypokalemia * Recommend K repletion to 4 in setting of known A Fib w/ RVR * Currently K 4.5 * CKD 3: * Zamorano catheter placed for strict I&O in the critically ill patient requiring aggressive fluid resuscitation and pressors * BUN 40 H, Cr 1.87 H, GFR 27.3 L * UTI: * Patient with recurrent UTIs, required 10 day admission for sepsis in October * Urinalysis suggestive of UTI, culture growing Gram Negative Bacilli * Notes that prior UTIs were all E. Coli * Continue with broad-spectrum antibiotics (Zosyn) * Zamorano in place - Strict I&Os. ENDO * DMII: * BSGs per unit protocol. ISS --> gtt per unit policy. * Hypothyroidism: * Continue home dosing of levothyroxine HEME * Hgb 9.1/Hct 29.2 * Anticoagulated on Eliquis. * Held in anticipation of EGD/Cholecystectomy ID * Severe Sepsis with Septic Shock: * Concerning in the patient with presenting symptoms of upper abdominal pain/nausea/vomiting and CT findings of choledocholithiasis. * Patient to be evaluated for ERCP today, currently NPO for testing * Abdominal exam remains unremarkable * Urinalysis/culture findings consistent with UTI, growing Gram Negative Bacilli * Patient afebrile and w/o back pain at this time, no evidence of pyelonephritis on CT * Continue coverage with Zosyn d/t possible GI vs origin * Lactate elevated at 3.8H to 4.5H to 1.9N * Procalcitonin greater than 30 on admission LINES/IV ACCESS * PIVs x3 * Zamorano catheter DVT PROPHYLAXIS * Eliquis held for surgical intervention * Heparin stopped for ERCP today, restart afterwards * SCDs Thank you for allowing us to participate in the care of this patient. Please refer to my attending physician's documentation for any further recommendations. Admission and Anticipated Discharge Date Admission Date: December 25, 2022 Supervising Physician Co-Signing Physician Notes Patient seen and examined. EMR reviewed. Discussed on multidisciplinary rounds and with family practice resident as well as bedside critical care nurse. The patient is clinically improved this morning. She is off pressors. Her lactate is cleared. She is afebrile. Her laboratory studies are stable with the exception of an increasing white blood cell count and mild elevation in her transaminases. She is on heparin which is currently on hold with plans to go for ERCP/duct stone extraction/stent placement later this afternoon. Tentative plans for semielective cholecystectomy tomorrow. Keep the patient NPO. We will continue Zosyn for now. We will follow-up speciation of the gram-negative bianca in her urine. Zosyn will be adequate to cover both biliary sources as well as the UTI for now. Duration of therapy will be determined based on clinical response, surgical findings, ERCP findings etc.. The patient is fluid positive. May be able to initiate diuresis within the next 12 to 24 hours if her hemodynamics hold. Can also likely restart her metoprolol if her blood pressure remained stable. We will continue to monitor in the ICU post ERCP in the event she should clinically worsen associated with the procedure. Subjective 67 F with hx of hypothyroidism, A Fib on Eliquis (s/p Cardioversion 12/13), HFpEF, RA (on chronic prednisone), HLD, HTN, CKD3, hx of TIA, and DM who presented in severe sepsis w/ associated septic shock with undifferentiated source of infection (GI vs ). She was admitted for ICU management with pressor support and aggressive fluid resuscitation. Patient notes that she is feeling much improved today. She denies any chest pain, dyspnea, abdominal pain, suprapubic pressure, fevers, chills, nausea, or headaches. Patient expressed concern over her recurrent UTIs, stating that she was just admitted for one in October and she felt the same prior to coming in here, she notes that her urine has been cloudy and she has had some episodes of incontinence a/w increased urinary pressure. Patient denies any recent RUQ pain, bowel changes, or abdominal discomfort with meals. Medications: Reviewed Allergies: Reviewed Review of Systems Review of Systems: As per HPI Physical Exam Physical Exam: Gen: NAD, alert, interactive HEENT: Supple, no LAD, no thyromegaly, no JVD Resp:Non-labored, no wheezing/rhonchi/rales, CTAB CV:RRR, normal S1/S2, no M/R/G Abd: Soft, non-distended, no TTP, normoactive bowels, no masses, Caraballo sign negative, no flank TTP, no rebound or guarding Extr: 2+ dp bilaterally, 1+ pitting edema in bilateral LE (chronic) Skin: No rashes lesions or erythema Results & Data Results & Data Vital Signs (Past 12 Hours) Vital Signs Temp Pulse Pulse Resp BP BP Pulse Ox 12/26/22 08:00 12/26/22 08:00 36.3 C L 99 H 20 118/83 96 12/26/22 08:00 102 H 12/26/22 04:00 102 H 28 H 12/26/22 04:00 112/53 L 12/26/22 03:00 107 H 16 12/26/22 03:00 118/76 12/26/22 02:21 103 H 17 98 12/26/22 02:21 98/58 L 12/26/22 02:16 101 H 26 H 98 12/26/22 02:00 102 H 21 97 12/26/22 01:45 116/63 12/26/22 01:45 102 H 26 H 12/26/22 01:30 114/60 12/26/22 01:30 102 H 29 H 98 12/26/22 01:15 102 H 27 H 12/26/22 01:15 113/61 12/26/22 01:00 102 H 16 12/26/22 01:00 133/66 12/26/22 00:45 131/68 12/26/22 00:45 101 H 17 12/26/22 00:30 132/65 12/26/22 00:30 102 H 17 100 12/26/22 04:00 36.7 C 12/26/22 00:00 100 H 12/26/22 00:15 112/62 12/26/22 00:15 100 H 16 12/26/22 00:00 100 H 22 100 12/26/22 00:00 108/68 12/25/22 23:45 101/56 L 12/25/22 23:45 99 H 17 100 12/25/22 23:30 99 H 20 12/25/22 23:30 99/63 L 12/25/22 23:15 119/71 12/25/22 23:15 99 H 15 12/25/22 23:00 99 H 23 12/25/22 23:00 117/63 12/25/22 22:47 102 H 14 88 L 12/25/22 22:47 124/65 12/25/22 22:30 93/61 L 12/25/22 22:30 102 H 19 91 12/25/22 22:15 98 H 20 99 12/25/22 22:15 112/59 L 12/25/22 22:01 21 98 12/25/22 22:01 104/60 12/25/22 22:00 99 H 18 97 12/26/22 00:30 36.7 C 12/25/22 21:45 99 H 14 98 12/25/22 21:45 105/55 L 12/25/22 21:30 99 H 16 99 12/25/22 21:30 98/57 L 12/25/22 21:15 98 H 16 99 12/25/22 21:15 110/67 O2 Del Method O2 Flow Rate 12/26/22 08:00 Room Air 12/26/22 08:00 Room Air 1 12/26/22 08:00 12/26/22 04:00 12/26/22 04:00 12/26/22 03:00 12/26/22 03:00 12/26/22 02:21 12/26/22 02:21 12/26/22 02:16 12/26/22 02:00 12/26/22 01:45 12/26/22 01:45 12/26/22 01:30 12/26/22 01:30 12/26/22 01:15 12/26/22 01:15 12/26/22 01:00 12/26/22 01:00 12/26/22 00:45 12/26/22 00:45 12/26/22 00:30 12/26/22 00:30 12/26/22 04:00 12/26/22 00:00 12/26/22 00:15 12/26/22 00:15 12/26/22 00:00 12/26/22 00:00 12/25/22 23:45 12/25/22 23:45 12/25/22 23:30 12/25/22 23:30 12/25/22 23:15 12/25/22 23:15 12/25/22 23:00 12/25/22 23:00 12/25/22 22:47 12/25/22 22:47 12/25/22 22:30 12/25/22 22:30 12/25/22 22:15 12/25/22 22:15 12/25/22 22:01 12/25/22 22:01 12/25/22 22:00 12/26/22 00:30 12/25/22 21:45 12/25/22 21:45 12/25/22 21:30 12/25/22 21:30 12/25/22 21:15 12/25/22 21:15 (7) Hypertension Hypertension type: essential hypertension Qualified Code(s): I10 - Essential (primary) hypertension (8) Hypothyroidism Hypothyroidism type: unspecified Qualified Code(s): E03.9 - Hypothyroidism, unspecified (9) Rheumatoid arthritis Rheumatoid arthritis location: multiple sites Rheumatoid factor presence: unspecified presence Qualified Code(s): M06.9 - Rheumatoid arthritis, unspecified
--- NOTE | 2022-12-26 09:42 | Hospitalist Progress Note ---
Date of Service December 26, 2022 Assessment & Plan (1) Sepsis: Plan: Severe sepsis 2/2 acute pyelonephritis versus acute cholecystitis Immunocompromised patient, on chronic steroids CTA/P: Pericholecystic minimal inflammatory change, small punctate of gas within the gallbladder, 3 mm stone at distal CBD suspicious for acute cholecystitis Urine culture growing gram-negative bianca, awaiting further ID and sensitivities Continue Zosyn Was initially hypotensive. Was aggressively fluid resuscitated. Received stress dose of steroids. Received pressors. Now hemodynamically stable, off of pressors. 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 Patient is feeling better with less urinary symptoms (3) Choledocholithiasis with acute cholecystitis: Plan: - Clinically does not exam with RUQ pain. Pt has not had any alexis colored stools, right upper quadrant pain, or pain with meals. She did have nausea/vomiting nonbloody/nonbilious this morning. No longer feels nauseous at time of bedside assessment CTA/P with pericholecystic inflammatory change, small punctate of gas within the gallbladder, 3 mm stone at distal CBD No transaminitis Right upper quadrant ultrasound shows no evidence of acute cholecystitis. Cholelithiasis seen. GI consulted, general surgery consulted Plan for ERCP today and laparoscopic cholecystectomy after that, earliest Friday I was just informed that GI requested cardiology clearance. Cardiology consulted. (4) Myocardial injury: Plan: Admitting troponin 18.7, went up to 171 Suspect demand in setting of sepsis Echo ordered for wall motion, pending Cardiology consulted for cardiac clearance prior to ERCP (5) (HFpEF) heart failure with preserved ejection fraction: Plan: TTE 11/07/2022: EF 65-70% with normal LV wall motion. Moderate concentric LVH. Mild to moderate annular calcification. Mild mitral stenosis. RVSP 30-40 mmHg. Aortic valve sclerosis mild without significant stenosis. Patient reports she does have chronic lower extremity leg swelling for which she is on Lasix as needed. Feels the swelling in her legs is normal, neither warm nor less than average and symmetrical at assessment CTchest with pulmonary edema post volume resuscitation. Patient is on 4 L of nasal cannula Additional IV fluids deferred, patient started on Levophed drip and admitted to ICU for pressor support Titrate SPO2 to greater than 90% (6) Atrial fibrillation with rapid ventricular response: Plan: Underwent electrical cardioversion 12/13/2022 for A-fib with RVR, converted to sinus rhythm Converted to heparin drip while pending ERCP/jordy. Took Eliquis around 9 AM on the day of admission. Hold 6 hours prior to any surgical intervention. BB held fo hypotension Admitting EKG sinus tachycardia with nonspecific ST segment change, no territorial depressions (7) Anemia of chronic disease: (8) Chronic kidney disease, stage 3b: Plan: Baseline creatinine approximately 1.52.1 Admitting creatinine 1.5 Today creatinine is 1.8 Monitor BMP closely Avoid nephrotoxic medications Renally dose medications, trend (9) Diabetes mellitus with neuropathy: Plan: Semaglutide 0.25 mg weekly started 11/25/2022. DDx to include nausea/vomiting/diarrhea Neuropathy treatment with gabapentin 100-300 mg nightly titrated to severity of symptoms by patient SGLT2 inhibitor avoided due to recurrent UTIs with hospitalization ICU hyperglycemia protocol (10) Hyperlipidemia: Plan: Last LDL 219. Continue PCSK9 as outpatient, patient has been intolerant of statins due to the recurrent severe myalgias (11) Hypertension: Plan: Hypotensive in the setting of sepsis and chronic steroid use Toprol held Lasix held (12) Hypothyroidism: Plan: Synthroid 100 mcg daily, continue Variable TFTs as outpatient, but patient has been clinically stable on 100 mcg Synthroid dose defer repeat in the setting of acute illness (13) Rheumatoid arthritis: (14) TIA involving vertebral artery: Plan DVT prophylaxis: Patient on Eliquis, converted to heparin due to start 2100 hrs mile while inpatient, hold 6 hours prior to any surgery. Diet: N.p.o. Additional fluids deferred due to pulmonary edema. Bolus as needed Disposition: ICU CODE STATUS: Full code Admission and Anticipated Discharge Date Admission Date: December 25, 2022 Subjective Patient says that she feels better overall. Her lower abdominal pain is improved. She does not have any pain in her right upper quadrant. Review of Systems Review of Systems: All systems reviewed & are unremarkable except as noted in Subjective Physical Exam Physical Exam: General: Awake, conversant Heart: S1, S2/regular rate and rhythm, no murmur rubs or gallops Lungs: Clear to auscultation bilaterally. Normal effort Abdomen: Soft/nontender/nondistended. No hepatosplenomegaly Extremities: No clubbing/cyanosis. No edema Behavior: Appropriate, cooperative Results & Data Results & Data Vital Signs (Past 12 Hours) Vital Signs Temp Pulse Pulse Resp BP BP Pulse Ox 12/26/22 09:00 96 H 16 97 12/26/22 09:00 116/65 12/26/22 08:00 98 H 19 86 L 12/26/22 08:00 119/65 12/26/22 07:00 98 H 14 96 12/26/22 07:00 118/83 12/26/22 08:00 12/26/22 08:00 36.3 C L 99 H 20 118/83 96 12/26/22 08:00 102 H 12/26/22 04:00 102 H 28 H 12/26/22 04:00 112/53 L 12/26/22 03:00 107 H 16 12/26/22 03:00 118/76 12/26/22 02:21 103 H 17 98 12/26/22 02:21 98/58 L 12/26/22 02:16 101 H 26 H 98 12/26/22 02:00 102 H 21 97 12/26/22 01:45 116/63 12/26/22 01:45 102 H 26 H 12/26/22 01:30 114/60 12/26/22 01:30 102 H 29 H 98 12/26/22 01:15 102 H 27 H 12/26/22 01:15 113/61 12/26/22 01:00 102 H 16 12/26/22 01:00 133/66 12/26/22 00:45 131/68 12/26/22 00:45 101 H 17 12/26/22 00:30 132/65 12/26/22 00:30 102 H 17 100 12/26/22 04:00 36.7 C 12/26/22 00:00 100 H 12/26/22 00:15 112/62 12/26/22 00:15 100 H 16 12/26/22 00:00 100 H 22 100 12/26/22 00:00 108/68 03/15/23 23:45 101/56 L 12/25/22 23:45 99 H 17 100 12/25/22 23:30 99 H 20 12/25/22 23:30 99/63 L 12/25/22 23:15 119/71 12/25/22 23:15 99 H 15 12/25/22 23:00 99 H 23 12/25/22 23:00 117/63 12/25/22 22:47 102 H 14 88 L 12/25/22 22:47 124/65 12/25/22 22:30 93/61 L 12/25/22 22:30 102 H 19 91 12/25/22 22:15 98 H 20 99 12/25/22 22:15 112/59 L 12/25/22 22:01 21 98 12/25/22 22:01 104/60 12/25/22 22:00 99 H 18 97 12/26/22 00:30 36.7 C 12/25/22 21:45 99 H 14 98 12/25/22 21:45 105/55 L O2 Del Method O2 Flow Rate 12/26/22 09:00 12/26/22 09:00 12/26/22 08:00 12/26/22 08:00 12/26/22 07:00 12/26/22 07:00 12/26/22 08:00 Room Air 12/26/22 08:00 Room Air 1 12/26/22 08:00 12/26/22 04:00 12/26/22 04:00 12/26/22 03:00 12/26/22 03:00 12/26/22 02:21 12/26/22 02:21 12/26/22 02:16 12/26/22 02:00 12/26/22 01:45 12/26/22 01:45 12/26/22 01:30 12/26/22 01:30 12/26/22 01:15 12/26/22 01:15 12/26/22 01:00 12/26/22 01:00 12/26/22 00:45 12/26/22 00:45 12/26/22 00:30 12/26/22 00:30 12/26/22 04:00 12/26/22 00:00 12/26/22 00:15 12/26/22 00:15 12/26/22 00:00 12/26/22 00:00 12/25/22 23:45 12/25/22 23:45 12/25/22 23:30 12/25/22 23:30 12/25/22 23:15 12/25/22 23:15 12/25/22 23:00 12/25/22 23:00 12/25/22 22:47 12/25/22 22:47 12/25/22 22:30 12/25/22 22:30 12/25/22 22:15 12/25/22 22:15 12/25/22 22:01 12/25/22 22:01 12/25/22 22:00 12/26/22 00:30 12/25/22 21:45 12/25/22 21:45 Laboratory Results Abnormal lab results 12/25/22 12/25/22 12/25/22 Range/Units 10:10 14:25 14:25 WBC (4.8-10.8) K/ul RBC (4.20-5.40) M/uL Hgb (12.0-16.0) g/dl Hct (37.0-47.0) % MCHC (32.0-36.0) g/dL RDW Std Deviation (36.4-46.3) fL RDW Coeff of [employer] (11.5-14.5) % Neut # (Auto) (1.40-6.50) K/uL Lymph # (Auto) (1.2-3.4) K/uL APTT 20.5 L (21.0-31.0) Seconds Potassium (3.5-5.1) mmol/L Chloride (98-107) mmol/L Carbon Dioxide (21-32) mmol/L BUN (6-23) mg/dl Creatinine (0.6-1.2) mg/dl BUN/Creatinine Ratio (10-20) Glucose (70-99(Fasting)) mg/dl POC Glucose (70-99) mg/dl Lactate 3.8 H* (0.4-2.0) mmol/L Calcium (8.5-10.1) mg/dl Phosphorus (2.5-4.9) mg/dl AST (13-39) U/L ALT (7-52) U/L Troponin I High Sens (0-14) pg/ml Total Protein (6.0-8.3) gm/dl Albumin (3.4-5.0) gm/dl Procalcitonin 30.54 H (0-0.5) ng/ml Urine Appearance (Clear) Urine Protein (Negative) Urine Ketones (Negative) Urine Blood (Negative) Urine Nitrite (Negative) Ur Leukocyte Esterase (Negative) Urine WBC (Auto) (0-5) /hpf Urine RBC (Auto) (0-4) /hpf U Epithel Cells (Auto) (0-5) /lpf Urine Bacteria (Auto) (Negative) 12/25/22 12/25/22 12/25/22 Range/Units 14:25 14:25 16:55 WBC (4.8-10.8) K/ul RBC (4.20-5.40) M/uL Hgb (12.0-16.0) g/dl Hct (37.0-47.0) % MCHC (32.0-36.0) g/dL RDW Std Deviation (36.4-46.3) fL RDW Coeff of [place] (11.5-14.5) % Neut # (Auto) (1.40-6.50) K/uL Lymph # (Auto) (1.2-3.4) K/uL APTT (21.0-31.0) Seconds Potassium (3.5-5.1) mmol/L Chloride (98-107) mmol/L Carbon Dioxide (21-32) mmol/L BUN (6-23) mg/dl Creatinine (0.6-1.2) mg/dl BUN/Creatinine Ratio (10-20) Glucose (70-99(Fasting)) mg/dl POC Glucose 124 H (70-99) mg/dl Lactate (0.4-2.0) mmol/L Calcium (8.5-10.1) mg/dl Phosphorus (2.5-4.9) mg/dl AST (13-39) U/L ALT (7-52) U/L Troponin I High Sens 25.9 H 23.1 H (0-14) pg/ml Total Protein (6.0-8.3) gm/dl Albumin (3.4-5.0) gm/dl Procalcitonin (0-0.5) ng/ml Urine Appearance (Clear) Urine Protein (Negative) Urine Ketones (Negative) Urine Blood (Negative) Urine Nitrite (Negative) Ur Leukocyte Esterase (Negative) Urine WBC (Auto) (0-5) /hpf Urine RBC (Auto) (0-4) /hpf U Epithel Cells (Auto) (0-5) /lpf Urine Bacteria (Auto) (Negative) 12/25/22 12/25/22 12/25/22 Range/Units 18:38 21:02 22:48 WBC (4.8-10.8) K/ul RBC (4.20-5.40) M/uL Hgb (12.0-16.0) g/dl Hct (37.0-47.0) % MCHC (32.0-36.0) g/dL RDW Std Deviation (36.4-46.3) fL RDW Coeff of [place] (11.5-14.5) % Neut # (Auto) (1.40-6.50) K/uL Lymph # (Auto) (1.2-3.4) K/uL APTT (21.0-31.0) Seconds Potassium (3.5-5.1) mmol/L Chloride (98-107) mmol/L Carbon Dioxide (21-32) mmol/L BUN (6-23) mg/dl Creatinine (0.6-1.2) mg/dl BUN/Creatinine Ratio (10-20) Glucose (70-99(Fasting)) mg/dl POC Glucose 121 H (70-99) mg/dl Lactate 4.5 H* (0.4-2.0) mmol/L Calcium (8.5-10.1) mg/dl Phosphorus (2.5-4.9) mg/dl AST (13-39) U/L ALT (7-52) U/L Troponin I High Sens 133.2 H* D (0-14) pg/ml Total Protein (6.0-8.3) gm/dl Albumin (3.4-5.0) gm/dl Procalcitonin (0-0.5) ng/ml Urine Appearance (Clear) Urine Protein (Negative) Urine Ketones (Negative) Urine Blood (Negative) Urine Nitrite (Negative) Ur Leukocyte Esterase (Negative) Urine WBC (Auto) (0-5) /hpf Urine RBC (Auto) (0-4) /hpf U Epithel Cells (Auto) (0-5) /lpf Urine Bacteria (Auto) (Negative) 12/25/22 12/25/22 12/26/22 Range/Units 22:48 Unknown 04:10 WBC 20.47 H D (4.8-10.8) K/ul RBC 3.24 L (4.20-5.40) M/uL Hgb 9.1 L (12.0-16.0) g/dl Hct 29.2 L (37.0-47.0) % MCHC 31.2 L (32.0-36.0) g/dL RDW Std Deviation 51.0 H (36.4-46.3) fL RDW Coeff of [place] 15.4 H (11.5-14.5) % Neut # (Auto) 19.47 H (1.40-6.50) K/uL Lymph # (Auto) 0.20 L (1.2-3.4) K/uL APTT (21.0-31.0) Seconds Potassium 5.6 H D (3.5-5.1) mmol/L Chloride 110 H (98-107) mmol/L Carbon Dioxide 20 L (21-32) mmol/L BUN 38 H (6-23) mg/dl Creatinine 1.85 H D (0.6-1.2) mg/dl BUN/Creatinine Ratio 20.5 H (10-20) Glucose 185 H (70-99(Fasting)) mg/dl POC Glucose (70-99) mg/dl Lactate (0.4-2.0) mmol/L Calcium 7.5 L (8.5-10.1) mg/dl Phosphorus 5.3 H D (2.5-4.9) mg/dl AST 93 H (13-39) U/L ALT 66 H (7-52) U/L Troponin I High Sens (0-14) pg/ml Total Protein 5.4 L (6.0-8.3) gm/dl Albumin 3.0 L (3.4-5.0) gm/dl Procalcitonin (0-0.5) ng/ml Urine Appearance Turbid A (Clear) Urine Protein 3+ H (Negative) Urine Ketones Trace H (Negative) Urine Blood 2+ H (Negative) Urine Nitrite Positive A (Negative) Ur Leukocyte Esterase 3+ H (Negative) Urine WBC (Auto) >30 H (0-5) /hpf Urine RBC (Auto) 10-30 H (0-4) /hpf U Epithel Cells (Auto) >30 H (0-5) /lpf Urine Bacteria (Auto) 4+ H (Negative) 12/26/22 12/26/22 12/26/22 Range/Units 04:10 04:10 04:10 WBC (4.8-10.8) K/ul RBC (4.20-5.40) M/uL Hgb (12.0-16.0) g/dl Hct (37.0-47.0) % MCHC (32.0-36.0) g/dL RDW Std Deviation (36.4-46.3) fL RDW Coeff of [employer] (11.5-14.5) % Neut # (Auto) (1.40-6.50) K/uL Lymph # (Auto) (1.2-3.4) K/uL APTT 40.6 H (21.0-31.0) Seconds Potassium (3.5-5.1) mmol/L Chloride 108 H (98-107) mmol/L Carbon Dioxide (21-32) mmol/L BUN 40 H (6-23) mg/dl Creatinine 1.87 H (0.6-1.2) mg/dl BUN/Creatinine Ratio 21.4 H (10-20) Glucose 173 H (70-99(Fasting)) mg/dl POC Glucose (70-99) mg/dl Lactate (0.4-2.0) mmol/L Calcium 7.4 L (8.5-10.1) mg/dl Phosphorus (2.5-4.9) mg/dl AST 118 H (13-39) U/L ALT 97 H (7-52) U/L Troponin I High Sens 172.2 H* D (0-14) pg/ml Total Protein 5.2 L (6.0-8.3) gm/dl Albumin 2.9 L (3.4-5.0) gm/dl Procalcitonin (0-0.5) ng/ml Urine Appearance (Clear) Urine Protein (Negative) Urine Ketones (Negative) Urine Blood (Negative) Urine Nitrite (Negative) Ur Leukocyte Esterase (Negative) Urine WBC (Auto) (0-5) /hpf Urine RBC (Auto) (0-4) /hpf U Epithel Cells (Auto) (0-5) /lpf Urine Bacteria (Auto) (Negative) 12/26/22 12/26/22 12/26/22 Range/Units 07:34 11:03 11:36 WBC (4.8-10.8) K/ul RBC (4.20-5.40) M/uL Hgb (12.0-16.0) g/dl Hct (37.0-47.0) % MCHC (32.0-36.0) g/dL RDW Std Deviation (36.4-46.3) fL RDW Coeff of [place] (11.5-14.5) % Neut # (Auto) (1.40-6.50) K/uL Lymph # (Auto) (1.2-3.4) K/uL APTT (21.0-31.0) Seconds Potassium (3.5-5.1) mmol/L Chloride (98-107) mmol/L Carbon Dioxide (21-32) mmol/L BUN (6-23) mg/dl Creatinine (0.6-1.2) mg/dl BUN/Creatinine Ratio (10-20) Glucose (70-99(Fasting)) mg/dl POC Glucose 175 H 169 H (70-99) mg/dl Lactate (0.4-2.0) mmol/L Calcium (8.5-10.1) mg/dl Phosphorus (2.5-4.9) mg/dl AST (13-39) U/L ALT (7-52) U/L Troponin I High Sens 171.1 H* (0-14) pg/ml Total Protein (6.0-8.3) gm/dl Albumin (3.4-5.0) gm/dl Procalcitonin (0-0.5) ng/ml Urine Appearance (Clear) Urine Protein (Negative) Urine Ketones (Negative) Urine Blood (Negative) Urine Nitrite (Negative) Ur Leukocyte Esterase (Negative) Urine WBC (Auto) (0-5) /hpf Urine RBC (Auto) (0-4) /hpf U Epithel Cells (Auto) (0-5) /lpf Urine Bacteria (Auto) (Negative) Diagnostic Findings Abdomen/Pelvis CT 12/25/22 10:[address] WITHOUT CONTRAST CT DOSE: HISTORY: chest/back/abd pain, near syncope TECHNIQUE: Multiaxial CT images of the abdomen and pelvis were performed without contrast. A dose lowering technique was utilized adhering to the principles of ALARA. COMPARISON STUDY: Abdomen and pelvis CT 09/17/2022. FINDINGS: The lung bases will be reported on the same day chest CT. Mild dependent changes and interlobular septal thickening seen at the lung bases. The heart is mildly enlarged. No pneumoperitoneum. No pneumatosis. There is an old moderate inferior endplate compression deformity at T12 with 4 mm of retropulsion, unchanged. This results in mild to moderate central canal narrowing. There is L3-L5 posterior decompression and fusion with pedicle screws and rods. The hardware appears intact. No acute fractures identified. Hepatic steatosis. There are few small stones within the gallbladder. No gallbladder wall thickening. Questionable minimal pericholecystic inflammatory change. There is a punctate focus of gas within the gallbladder which is new from the prior study. There is a 3 mm stone at the distal common bile duct on image 173. Therefore, these findings are concerning for an acute cholecystitis. The unenhanced spleen, adrenal glands, pancreas, and left kidney are unremarkable. Stable right-sided nephrolithiasis. No ureteral stones. No hydronephrosis. No retroperitoneal lymphadenopathy. Calcified plaque within the normal caliber abdominal aorta. No pelvic free fluid. The bladder is decompressed. Prior hysterectomy. No pelvic free fluid. Suboptimal evaluation for bowel pathology due to the lack of intravenous and oral contrast. However, there is no definite bowel wall thickening or obstruction. Normal appendix. Colonic diverticulosis. No evidence for acute diverticulitis. Mild thickening of the sigmoid colon is likely due to muscular hypertrophy from the diverticulosis. IMPRESSION: 1. There are few small stones within the gallbladder. Questionable minimal pericholecystic inflammatory change. There is a punctate focus of gas within the gallbladder which is new from the prior study. There is a 3 mm stone at the distal common bile duct. Therefore, these findings are concerning for an acute cholecystitis. Surgical or GI consultation recommended. 2. Mild interlobular septal thickening at the lung bases likely representing mild pulmonary edema. 3. Right-sided nephrolithiasis. No ureteral stones. No hydronephrosis. 4. Colonic diverticulosis. No evidence for acute diverticulitis. 5. No change in the moderate inferior endplate compression fracture at T12. 6. Additional findings as described above. ACT 112: Negative or not required by law. Electronically signed by: Sonny Moody M.D. 12/25/2022 1:[address] 12/25/22 10:50 CT OF THE CHEST WITHOUT IV CONTRAST CLINICAL HISTORY: chest/back/abd pain, near syncope COMPARISON STUDY: Chest CT October 29, 2018. Chest radiograph performed earlier today. CT DOSE: 1043.84 mGy.cm TECHNIQUE: Axial images of the chest were obtained without IV contrast. Images were reviewed in the axial, sagittal, and coronal planes. IV contrast was not administered for this examination. Automated exposure control was utilized for the study. A dose lowering technique was utilized adhering to the principles of ALARA. FINDINGS: Prominent mediastinal lymph nodes are unchanged. There is moderate cardiomegaly and coronary artery calcification. There is no pericardial effusion. There is a trace left pleural effusion. No pneumothorax is present. Interlobular septal thickening is noted. There are mild ground glass opacities within the lungs. There is no consolidation to suggest pneumonia. A T12 compression fracture is noted. This was shown on radiographs of April 02, 2022. There is no acute thoracic spine fracture. Central airways are patent. Lungs are suboptimally assessed due to respiratory motion. The abdomen and pelvis CT will be reported separately. IMPRESSION: 1. Findings consistent with pulmonary edema. Trace left pleural effusion. 2. Moderate cardiomegaly and coronary artery calcification. 3. Redemonstration of an old T12 compression fracture. No acute thoracic spine fractures. ACT 112: Negative or not required by law. Electronically signed by: Gus Ojeda M.D. 12/25/2022 1:40 PM Liver Ultrasound 12/25/22 20:09 ULTRASOUND RIGHT UPPER QUADRANT ABDOMEN CLINICAL HISTORY: Cholelithiasis. COMPARISON STUDY: Abdominal CT dated 12/25/2022 TECHNIQUE: Real-time, grayscale, and color flow sonography of the right upper quadrant of the abdomen was performed. Images are reviewed in the transverse and longitudinal planes. FINDINGS: Liver: The liver is top normal in size and demonstrates heterogeneous increased echotexture indicating steatosis. Fatty sparing is seen adjacent to the gallbladder fossa. There is no intrahepatic biliary ductal dilatation. The main portal vein is patent. Gallbladder: There are numerous calcified shadowing gallstones. The gallbladder wall is top normal in thickness. No pericholecystic fluid is seen. A sonographic Caraballo's sign is reportedly absent. The common bile duct measures up to 0.4 cm in diameter. Pancreas: Visualized portions of the pancreatic head and body are normal in appearance. Right kidney: Survey images of the right kidney demonstrate cortical atrophy. Echotexture is normal. There is no hydronephrosis. Ascites: None. IMPRESSION: 1. Cholelithiasis without definitive sonographic evidence of acute cholecystitis. The CT findings remain concerning, and if there is clinical concern for acute cholecystitis a nuclear hepatobiliary scan should be obtained. 2. No intra or extrahepatic biliary ductal dilatation is seen. 3. Hepatic steatosis. ACT 112: Negative or not required by law. Electronically signed by: Yrn Gomez M.D. 12/25/2022 9:34 PM PG Care Time/CCT Total # of Minutes Spent Total Time Spent: 35 Total Time Spent with Patient: I spent 35 minutes in the care of this patient. The time was spent in talking to the patient, nurse, care management team, reviewing the chart, formulating plan and placing the orders accordingly. Coding Level of Care Code 53765 SUB INP/OBS CARE 350MIN Diagnoses Sepsis A41.9 Acute pyelonephritis due to bacteria N10; B96.89 Choledocholithiasis with acute cholecystitis K80.42 Myocardial injury I5A (HFpEF) heart failure with preserved ejection fraction I50.30 Atrial fibrillation with rapid ventricular response I48.91 Anemia of chronic disease D63.8 Chronic kidney disease, stage 3b N18.32 Diabetes mellitus with neuropathy E11.40 Hyperlipidemia E78.5 Hypertension I10 Hypertension type: essential hypertension Hypothyroidism E03.9 Hypothyroidism type: unspecified Rheumatoid arthritis M06.9 Rheumatoid arthritis location: multiple sites Rheumatoid factor presence: unspecified presence TIA involving vertebral artery G45.0 (11) Hypertension Hypertension type: essential hypertension Qualified Code(s): I10 - Essential (primary) hypertension (12) Hypothyroidism Hypothyroidism type: unspecified Qualified Code(s): E03.9 - Hypothyroidism, unspecified (13) Rheumatoid arthritis Rheumatoid arthritis location: multiple sites Rheumatoid factor presence: un specified presence Qualified Code(s): M06.9 - Rheumatoid arthritis, unspecified
--- NOTE | 2022-12-26 10:18 | Billing Data ---
Date of Service December 26, 2022 Coding Level of Care Code 59317 SUB INP/OBS CARE MIN
--- NOTE | 2022-12-26 11:57 | Surgery Progress Note ---
Date of Service December 26, 2022 Assessment & Plan (1) Choledocholithiasis: Plan: Patient still without abdominal pain, she is scheduled for an ERCP today due to her choledocholithiasis We will tentatively plan on cholecystectomy tomorrow pending the ERCP results If ERCP reveals a patent cystic duct, would ideally like to delay cholecystectomy until the patient is recovered from her gram-negative sepsis due to UTI as well as her cardiac issues have been sorted out We will continue to follow Admission and Anticipated Discharge Date Admission Date: December 25, 2022 Subjective Patient seen and examined. She is off pressors. She still is without abdominal pain. She denies nausea or vomiting. Review of Systems Constitutional: no fever and no chills Gastrointestinal: no abdominal pain, no nausea and no vomiting Physical Exam Constitutional: WD/WN, vitals as above Gastrointestinal (Abdomen): Inspection/Auscultation: abdomen normal to inspection; abdomen not distended Percussion/Palpation: abdomen soft; abdomen nontender, no guarding and abdomen not rigid Negative Caraballo's Results & Data Vital Signs (Past 12 Hours) Vital Signs Temp Pulse Pulse Resp BP BP Pulse Ox 12/26/22 11:32 36.8 C 12/26/22 11:00 99 H 23 97 12/26/22 11:00 118/70 12/26/22 10:30 95 H 14 99 12/26/22 10:00 97 H 23 90 12/26/22 10:00 113/88 12/26/22 09:30 96 H 16 98 12/26/22 09:00 96 H 16 97 12/26/22 09:00 116/65 12/26/22 08:00 98 H 19 86 L 12/26/22 08:00 119/65 12/26/22 07:00 98 H 14 96 12/26/22 07:00 118/83 12/26/22 08:00 12/26/22 08:00 36.3 C L 99 H 20 118/83 96 12/26/22 08:00 102 H 12/26/22 04:00 102 H 28 H 12/26/22 04:00 112/53 L 12/26/22 03:00 107 H 16 12/26/22 03:00 118/76 12/26/22 02:21 103 H 17 98 12/26/22 02:21 98/58 L 12/26/22 02:16 101 H 26 H 98 12/26/22 02:00 102 H 21 97 12/26/22 01:45 116/63 12/26/22 01:45 102 H 26 H 12/26/22 01:30 114/60 12/26/22 01:30 102 H 29 H 98 12/26/22 01:15 102 H 27 H 12/26/22 01:15 113/61 12/26/22 01:00 102 H 16 12/26/22 01:00 133/66 12/26/22 00:45 131/68 12/26/22 00:45 101 H 17 12/26/22 00:30 132/65 12/26/22 00:30 102 H 17 100 12/26/22 04:00 36.7 C 12/26/22 00:00 100 H 12/26/22 00:15 112/62 12/26/22 00:15 100 H 16 12/26/22 00:00 100 H 22 100 12/26/22 00:00 108/68 12/26/22 00:30 36.7 C O2 Del Method O2 Flow Rate 12/26/22 11:32 12/26/22 11:00 12/26/22 11:00 12/26/22 10:30 12/26/22 10:00 12/26/22 10:00 12/26/22 09:30 12/26/22 09:00 12/26/22 09:00 12/26/22 08:00 12/26/22 08:00 12/26/22 07:00 12/26/22 07:00 12/26/22 08:00 Room Air 12/26/22 08:00 Room Air 1 12/26/22 08:00 12/26/22 04:00 12/26/22 04:00 12/26/22 03:00 12/26/22 03:00 12/26/22 02:21 12/26/22 02:21 12/26/22 02:16 12/26/22 02:00 12/26/22 01:45 12/26/22 01:45 12/26/22 01:30 12/26/22 01:30 12/26/22 01:15 12/26/22 01:15 12/26/22 01:00 12/26/22 01:00 12/26/22 00:45 12/26/22 00:45 12/26/22 00:30 12/26/22 00:30 12/26/22 04:00 12/26/22 00:00 12/26/22 00:15 12/26/22 00:15 12/26/22 00:00 12/26/22 00:00 12/26/22 00:30 PG Care Time/CCT Total # of Minutes Spent Total Time Spent with Patient: Total time spent is greater than 50% in coordination of care (as documented) at patient's floor/unit and/or counseling patient: Coding Level of Care Code 92905 SUB INP/OBS CARE 11/06MIN Diagnoses Choledocholithiasis K80.50
[2022-12-26] MEDS: NOREPINEPHRINE/D5W 4 MG/250 ML PLCT IV SCH (14:35)
--- NOTE | 2022-12-26 14:48 | History & Physical Bridge Note ---
Date of Service December 26, 2022 History & Physical Bridge Note I have examined the patient, reviewed the History & Physical and in the interval since the performance of the History & Physical I have noted the following changes of clinical significance: no changes noted EUS/ERCP Patient was explained in detail regarding risks, benefits, limitations and alternatives of the above endoscopic procedure. Risks of intravenous sedation used for procedure were also explained. Risks include, but not limited to perforation, bleeding, infection, respiratory distress, cardiac arrest and . Patient is also aware about the possibility of missed lesion. Patient's questions were answered. The patient verbalized understanding the information and agreed to undergo the procedure.
[2022-12-26] MEDS ORDERED: PROPOFOL IV EMULSION 10 MG/ML 20 ML VIAL IV ONE (14:57)
[2022-12-26] MEDS ORDERED: DEXAMETHASONE SOD INJ 4 MG/ML VIAL ONE (14:57)
[2022-12-26] MEDS ORDERED: ONDANSETRON INJ 2 MG/ML 2 ML VIAL ONE (14:57)
[2022-12-26] MEDS ORDERED: MIDAZOLAM HCL 1 MG/ML 2ML VIAL ONE (14:58)
[2022-12-26] MEDS ORDERED: LIDOCAINE 2% MPF LOCAL 5 ML VIAL INFIL ONE (14:58)
[2022-12-26] MEDS ORDERED: fentaNYL citrate PF 100 MCG/2 ML VIAL ONE (14:58)
[2022-12-26] MEDS ORDERED: ROCURONIUM BROMIDE 10 MG/ML 5 ML VIAL IV ONE (14:58)
--- NOTE | 2022-12-26 15:09 | Cardiology Consultation ---
Date of Consultation December 26, 2022 Assessment & Plan (1) Elevated troponin: (2) Hyperlipidemia: (3) Chronic heart failure with preserved ejection fraction: (4) Severe sepsis: (5) Preop cardiovascular exam: (6) Paroxysmal atrial fibrillation: Plan ASSESSMENT/PLAN: 1. Preoperative cardiac assessment: No angina. Elevated troponins likely secondary to sepsis, requiring pressor support. Ischemic evaluation is not necessary at this time. No further cardiac studies warranted prior to upcoming procedures. 2. Paroxysmal atrial fibrillation: Remains in sinus rhythm. Would not be surprised if she develops atrial fibrillation in the setting of sepsis. Recommend resuming beta-danae when able from a sepsis standpoint. Can start at lower dose and titrate up to her home dose as appropriate. Ideally, would like to avoid significant holding of her anticoagulation therapy as she is within 4 weeks of cardioversion. When safe from a surgical standpoint, please resume anticoagulation therapy. Can use IV heparin until clear that she does not require further interventions. 3. Sepsis: As per critical care team and other providers. 4. Chronic heart failure with preserved EF: She does not appear to be significantly hypervolemic. Can use diuretic as needed. Low-sodium diet when taking p.o. 5. Elevated troponin: Likely due to sepsis requiring pressors. She did not present with acute coronary syndrome. She had very brief chest discomfort that she describes as originating from shoulder pain. Ischemic evaluation not warranted at this time. Recommend appropriate treatment for her presenting illness, sepsis. 6. Dyslipidemia: She is on PCSK9 inhibitor as an outpatient. 7. Disposition: Patient care communicated with Shawn Mckeon of the critical care team. Please call with any further questions or concerns. Thank you for allowing me to participate in the care of your patient. Please call for any other questions or concerns. Sincerely, Michele Pedraza M.D. History of Present Illness Reason for Consultation: pre-op assessment Requesting Physician: Shawn Mckeon PA-C Attending Physician: Yaritza Hunter MD History of Present Illness Mrs. Champagne is a very pleasant 67-year-old female with a history significant for atrial fibrillation s/p DC cardioversion, stroke s/p tPA (April of 2021-right sided weakness), mitral stenosis, heart failure with preserved EF, anemia s/p prbc, hypertension, dyslipidemia, rheumatoid arthritis, CKD, and type 2 diabetes. She was seen in consultation on 11/08/[address] Davis at [facility] for atrial fibrillation with rapid ventricular response. She was treated with rate- controlling medications (metoprolol and diltiazem), and placed on Eliquis for anticoagulation/stroke risk reduction. She was hospitalized in Sep for sepsis (likely from UTI) with acute kidney injury and addisonian crisis. Hospitalized in Sep with Covid 19 pneumonia with acute respiratory failure with hypoxia. She has had the following studies/procedures: 1. Echo 11/07/2022 [facility]: Normal LV systolic function and wall motion. EF 65- 70%. Moderate LVH. Sclerotic aortic valve. Mild to moderate MAC. Mild MS, RVSP 30-40. 2. Cardioversion 12/13/2022: A-fib converted to sinus rhythm with 200 J. She was hospitalized on 12/25/2022 with sepsis with concerns of acute cholecystitis versus cystitis. She was found to have choledocholithiasis and has been seen by surgery and GI. She has received Levophed for pressor support. Despite acute illness, she remains in sinus rhythm since her cardioversion. Overall, she had felt much better in sinus rhythm and was walking 1 mile per day without chest pain, shortness of breath, or palpitations. She has chronic and stable lower ex remedy edema. She denies syncope or near syncope. She denies melena, hematochezia, or hematuria. Prior to presentation, she had bilateral shoulder pain with arm tingling. She then had less than 10 seconds of chest pressure across her chest which spontaneously resolved. The chest pressure occurred while sitting and did not have associated shortness of breath or diaphoresis. While here, she had high- sensitivity troponin checked 6 times. Troponin was initially 18, trended upward to 25 and then overnight as high as 172 as a peak. She has not had any further chest discomfort. She feels much better today than yesterday. She is planned for ERCP today. Review of systems: As above. Review of systems otherwise negative/unremarkable. Family history: No known premature CAD. Social history: She denies tobacco, alcohol, or drug abuse. She lives at home with her . She has a daughter (Jordyn) and a son. She has grandchildren. She lives in [place] (cousin is Jean Carrillo). She was unaccompanied in ICU room. Allergies Allergy/AdvReac Type Severity Reaction Status Date / Time tetracycline Allergy Severe RASH ON Verified 12/25/22 14:59 FACE Ewlmrma-JLO-QlW Reductase AdvReac Intermediate LE edema Verified 12/25/22 14:59 Inhibitor [Aptegmc-Tha-Txk Reductase Inhibitor] oxycodone AdvReac Mild Drowsy Verified 12/26/22 07:36 Home Medications Medication Instructions Recorded Confirmed Type cholecalciferol (vitamin D3) 25 1,000 unit PO QAM 10/26/18 12/25/22 History mcg (1,000 unit) capsule (Vitamin D3) magnesium 250 mg tablet 250 mg PO QAM 10/26/18 12/25/22 History acetaminophen 500 mg tablet 1,000 mg PO Q6H PRN Pain 12/24/18 12/25/22 History (Tylenol Extra Strength) cyclobenzaprine 10 mg tablet 10 mg PO HS 04/21/21 12/25/22 History albuterol sulfate 90 mcg/actuation 2 puff inhalation QID PRN 04/02/22 12/25/22 Rx aerosol inhaler (Ventolin HFA) shortness of breath or wheezing #8.5 grams levothyroxine 100 mcg tablet 100 mcg PO QAM #90 tabs 09/16/22 12/25/22 Rx prednisone 5 mg tablet 10 mg PO QPM 11/13/22 12/25/22 History semaglutide 0.25 mg or 0.5 mg (2 0.25 mg (0.2 mL) subcut ONCE #1.5 11/25/22 12/25/22 Rx mg/1.5 mL) subcutaneous pen mL injector (Ozempic) apixaban 5 mg tablet (Eliquis) 5 mg PO BID #180 tabs 12/02/22 12/25/22 Rx L.acidop,casei,lactis,rham-B.lact,reyes 1 cap PO HS 12/12/22 12/25/22 History 625 mg (10 billion cell) capsule (Advanced Probiotic) gabapentin 100 mg capsule 100 - 300 mg PO HS 12/12/22 12/25/22 History metoprolol succinate 100 mg 100 mg PO BID #60 tabs 12/12/22 12/25/22 Rx tablet,extended release 24 hr omeprazole 40 mg capsule,delayed 40 mg PO QAM 12/12/22 12/25/22 History release furosemide 20 mg tablet (Lasix) 20 mg PO DAILY PRN edema of legs 12/13/22 12/25/22 Rx #30 tabs alirocumab 75 mg/mL subcutaneous 75 mg subcut Q14D #2 mL 12/23/22 12/25/22 Rx pen injector (Praluent Pen) Patient History Medical History (Updated 12/26/22 @ 16:47 by Rusty Pedraza MD) (HFpEF) heart failure with preserved ejection fraction Acute congestive heart failure 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--per pt due to clot, cleared from neurology--follows with PCP--has slight weakness on left side Acute on chronic kidney failure Acute respiratory failure with hypoxia AISHWARYA (acute kidney injury) Anemia of chronic disease Anxiety Bilateral leg edema Chronic kidney disease, stage 3b Diabetes mellitus type II, controlled Exertional chest pain GERD (gastroesophageal reflux disease) History of COVID-19 10/04/21--hospitalized @ [facility] for 9 days--no issues now History of MRSA infection lumbar surgical incision s/p vanco/ceftriaxone/bactrim per 04/2019 [facility] discharge summary History of recent blood transfusion 09/18/22 @ [facility] Hospital discharge follow-up Hyperlipidemia Hypertension Hypothyroidism Immunosuppression due to drug therapy Lumbar radiculopathy Paroxysmal atrial fibrillation Recurrent UTI Rheumatoid arthritis Sepsis recent hospitalization 09/17/22 @ [facility] due to UTI Spinal stenosis Stenosis of left internal carotid artery 50-69% stenosis of left ICA per 04/2021 neck CTA Stenosis of left vertebral artery Approximately 90% stenosis within V4 segment of left vertebral artery per 04/21/2021 neck CTA Surgical History History of x2 History of hysterectomy total History of lumbar surgery Lumbar Spine Wound Revision 05/2019 Dr. Mane @ [facility] History of total left knee replacement Hx of tonsillectomy Status post laminectomy with spinal fusion L2-L5 laminectomy/fusion: 12/24/18: Grade view 1, MAC#3, ETT 7.0 Family History Father Diabetes Lung cancer Cancer Hypertension Mother Malignant neoplasm of brain Diabetes Brain tumor Cancer Hypertension Aunt Breast cancer Sister Hypertension Other No family history of adverse response to anesthesia Denies family history of Ovarian cancer Prostate cancer Myocardial infarction Colorectal cancer Social History Smoking Status: Never smoker Second Hand Exposure: No; Hx Alcohol Use: Yes Alcohol type: wine Alcohol Intake Frequency: 2-4 x/Month Hx Substance Use: No Preferred Language: Japanese Communication Ability: Effective Visual Impairment: Limited Hearing Ability: Normal Handicrafts Teacher Required: No Beliefs That Will Affect Care: None marital status: Current Living Situation: Spouse Current Living Situation Comment: 1 level home current occupational status: retired How many Children do You have: 2 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 Feels Safe at Home: Yes Childhood Exposure to Second-Hand Smoke: Yes caffeine: Yes Dental Care, Regularly: Yes Physical Activity Frequency: 5-6 Times per Week Physical Activity Frequency Comment: gym Seatbelt Use: always Sunscreen Use: Yes Do you think of yourself as: straight/heterosexual Assistive Devices: Cane and Walker Physical Exam Physical Exam: Gen.: No acute distress. Alert. HEENT: Anicteric sclera. Neck: Thick neck. No bruits. Normal carotid upstrokes bilaterally. Cardiac: No ventricular heave. Regular and mildly tachycardic with occasional ectopy. Normal S1-S2. No murmurs, rubs, or gallops. Pulmonary: Clear to auscultation bilaterally without wheezes, rales, or rhonchi. Abdomen: Soft, nontender, nondistended, with normoactive bowel sounds. No bruits noted. Extremities: 2+ radial pulses bilaterally. 2+ posterior tibialis pulses b ilaterally. Trace bilateral lower extremity edema. Trace bilateral upper extremity edema. No cyanosis. Results & Data Vital Signs (Past 12 Hours) Vital Signs Temp Pulse Pulse Resp BP BP Pulse Ox 12/26/22 14:45 36.9 C 117 H 18 128/69 93 12/26/22 14:00 100 H 18 94 12/26/22 14:00 128/68 12/26/22 13:00 97 H 14 99 12/26/22 12:00 98 H 18 96 12/26/22 12:00 121/69 12/26/22 13:01 96 12/26/22 11:32 36.8 C 12/26/22 11:00 99 H 23 97 12/26/22 11:00 118/70 12/26/22 10:30 95 H 14 99 12/26/22 10:00 97 H 23 90 12/26/22 10:00 113/88 12/26/22 09:30 96 H 16 98 12/26/22 09:00 96 H 16 97 12/26/22 09:00 116/65 12/26/22 08:00 98 H 19 86 L 12/26/22 08:00 119/65 12/26/22 07:00 98 H 14 96 12/26/22 07:00 118/83 12/26/22 08:00 12/26/22 08:00 36.3 C L 99 H 20 118/83 96 12/26/22 08:00 102 H 12/26/22 04:00 102 H 28 H 12/26/22 04:00 112/53 L 12/26/22 04:00 36.7 C O2 Del Method O2 Flow Rate 12/26/22 14:45 Room Air 12/26/22 14:00 12/26/22 14:00 12/26/22 13:00 12/26/22 12:00 12/26/22 12:00 12/26/22 13:01 Nasal Cannula 1 12/26/22 11:32 12/26/22 11:00 12/26/22 11:00 12/26/22 10:30 12/26/22 10:00 12/26/22 10:00 12/26/22 09:30 12/26/22 09:00 12/26/22 09:00 12/26/22 08:00 12/26/22 08:00 12/26/22 07:00 12/26/22 07:00 12/26/22 08:00 Room Air 12/26/22 08:00 Room Air 1 12/26/22 08:00 12/26/22 04:00 12/26/22 04:00 12/26/22 04:00 Laboratory Results Laboratory Results - last 24 hr 12/25/22 12/25/22 12/25/22 10:10 14:25 15:30 WBC RBC Hgb Hct MCV MCH MCHC RDW Std Deviation RDW Coeff of [employer] Plt Count MPV Immature Gran % (Auto) Neut % (Auto) Lymph % (Auto) Parker % (Auto) Eos % (Auto) Baso % (Auto) Neut # (Auto) Lymph # (Auto) Parker # (Auto) Eos # (Auto) Baso # (Auto) Immature Gran # (Auto) PT 10.6 INR 1.0 APTT 20.5 L PTT Ratio 0.7 Sodium Potassium Chloride Carbon Dioxide Anion Gap BUN Creatinine Est Cr Clr Drug Dosing Est GFR ( Amer) Est GFR (Non-Af Amer) BUN/Creatinine Ratio Glucose POC Glucose Lactate Calcium Phosphorus Magnesium Total Bilirubin Direct Bilirubin AST ALT Alkaline Phosphatase Troponin I High Sens Total Protein Albumin Procalcitonin 30.54 H Nasal Screen MRSA (PCR) SARS-CoV-2, RNA, NAAT NEGATIVE 12/25/22 12/25/22 12/25/22 16:45 16:55 18:38 WBC RBC Hgb Hct MCV MCH MCHC RDW Std Deviation RDW Coeff of [employer] Plt Count MPV Immature Gran % (Auto) Neut % (Auto) Lymph % (Auto) Parker % (Auto) Eos % (Auto) Baso % (Auto) Neut # (Auto) Lymph # (Auto) Parker # (Auto) Eos # (Auto) Baso # (Auto) Immature Gran # (Auto) PT INR APTT PTT Ratio Sodium Potassium Chloride Carbon Dioxide Anion Gap BUN Creatinine Est Cr Clr Drug Dosing Est GFR ( Amer) Est GFR (Non-Af Amer) BUN/Creatinine Ratio Glucose POC Glucose 124 H Lactate 4.5 H* Calcium Phosphorus Magnesium Total Bilirubin Direct Bilirubin AST ALT Alkaline Phosphatase Troponin I High Sens Total Protein Albumin Procalcitonin Nasal Screen MRSA (PCR) Negative SARS-CoV-2, RNA, NAAT 12/25/22 12/25/22 12/25/22 20:20 21:02 22:48 WBC RBC Hgb Hct MCV MCH MCHC RDW Std Deviation RDW Coeff of [employer] Plt Count MPV Immature Gran % (Auto) Neut % (Auto) Lymph % (Auto) Parker % (Auto) Eos % (Auto) Baso % (Auto) Neut # (Auto) Lymph # (Auto) Parker # (Auto) Eos # (Auto) Baso # (Auto) Immature Gran # (Auto) PT INR APTT 25.7 PTT Ratio 0.9 Sodium Potassium Chloride Carbon Dioxide Anion Gap BUN Creatinine Est Cr Clr Drug Dosing Est GFR ( Amer) Est GFR (Non-Af Amer) BUN/Creatinine Ratio Glucose POC Glucose 121 H Lactate Calcium Phosphorus Magnesium Total Bilirubin Direct Bilirubin AST ALT Alkaline Phosphatase Troponin I High Sens 133.2 H* D Total Protein Albumin Procalcitonin Nasal Screen MRSA (PCR) SARS-CoV-2, RNA, NAAT 12/25/22 12/25/22 12/26/22 22:48 22:48 04:10 WBC 20.47 H D RBC 3.24 L Hgb 9.1 L Hct 29.2 L MCV 90.1 MCH 28.1 MCHC 31.2 L RDW Std Deviation 51.0 H RDW Coeff of [employer]aya 15.4 H Plt Count 249 MPV 10.3 Immature Gran % (Auto) 1.0 Neut % (Auto) 95.1 Lymph % (Auto) 1.0 Parker % (Auto) 2.6 Eos % (Auto) 0.1 Baso % (Auto) 0.2 Neut # (Auto) 19.47 H Lymph # (Auto) 0.20 L Parker # (Auto) 0.53 Eos # (Auto) 0.02 Baso # (Auto) 0.05 Immature Gran # (Auto) 0.20 PT INR APTT PTT Ratio Sodium 138 Potassium 5.6 H D Chloride 110 H Carbon Dioxide 20 L Anion Gap 8 BUN 38 H Creatinine 1.85 H D Est Cr Clr Drug Dosing 31.8 Est GFR ( Amer) 32.1 Est GFR (Non-Af Amer) 27.7 BUN/Creatinine Ratio 20.5 H Glucose 185 H POC Glucose Lactate 1.9 Calcium 7.5 L Phosphorus 5.3 H D Magnesium 1.7 Total Bilirubin 0.5 Direct Bilirubin 0.1 AST 93 H ALT 66 H Alkaline Phosphatase 60 Troponin I High Sens Total Protein 5.4 L Albumin 3.0 L Procalcitonin Nasal Screen MRSA (PCR) SARS-CoV-2, RNA, NAAT 12/26/22 12/26/22 12/26/22 04:10 04:10 04:10 WBC RBC Hgb Hct MCV MCH MCHC RDW Std Deviation RDW Coeff of [employer] Plt Count MPV Immature Gran % (Auto) Neut % (Auto) Lymph % (Auto) Parker % (Auto) Eos % (Auto) Baso % (Auto) Neut # (Auto) Lymph # (Auto) Parker # (Auto) Eos # (Auto) Baso # (Auto) Immature Gran # (Auto) PT INR APTT 40.6 H PTT Ratio 1.5 Sodium 138 Potassium 4.5 Chloride 108 H Carbon Dioxide 21 Anion Gap 9 BUN 40 H Creatinine 1.87 H Est Cr Clr Drug Dosing 31.5 Est GFR ( Amer) 31.7 Est GFR (Non-Af Amer) 27.3 BUN/Creatinine Ratio 21.4 H Glucose 173 H POC Glucose Lactate Calcium 7.4 L Phosphorus 4.5 Magnesium 1.8 Total Bilirubin 0.4 Direct Bilirubin 0.1 AST 118 H ALT 97 H Alkaline Phosphatase 70 Troponin I High Sens 172.2 H* D Total Protein 5.2 L Albumin 2.9 L Procalcitonin Nasal Screen MRSA (PCR) SARS-CoV-2, RNA, NAAT 12/26/22 12/26/22 12/26/22 07:34 11:03 11:36 WBC RBC Hgb Hct MCV MCH MCHC RDW Std Deviation RDW Coeff of [employer] Plt Count MPV Immature Gran % (Auto) Neut % (Auto) Lymph % (Auto) Parker % (Auto) Eos % (Auto) Baso % (Auto) Neut # (Auto) Lymph # (Auto) Parker # (Auto) Eos # (Auto) Baso # (Auto) Immature Gran # (Auto) PT INR APTT PTT Ratio Sodium Potassium Chloride Carbon Dioxide Anion Gap BUN Creatinine Est Cr Clr Drug Dosing Est GFR ( Amer) Est GFR (Non-Af Amer) BUN/Creatinine Ratio Glucose POC Glucose 175 H 169 H Lactate Calcium Phosphorus Magnesium Total Bilirubin Direct Bilirubin AST ALT Alkaline Phosphatase Troponin I High Sens 171.1 H* Total Protein Albumin Procalcitonin Nasal Screen MRSA (PCR) SARS-CoV-2, RNA, NAAT Diagnostic Findings Labs reviewed: Procalcitonin elevated. Troponins elevated and peaked at 172. Leukocytosis. Abnormal but stable renal function. Echo 12/26/2022 preliminary interpretation: Normal LV systolic function. Formal review to follow. Telemetry personally reviewed: Sinus rhythm with sinus tachycardia. No arrhythmia. ECGs personally reviewed. ECG 12/25/2022 at 9:37 AM: Sinus tachycardia with PACs 109 bpm. ECG 12/25/2022 at 1313: Sinus tachycardia 102 bpm. Critical care notes reviewed. Surgery notes reviewed. GI consultation reviewed. Urine culture 12/25/2022: Gram-negative bacilli. Blood cultures 12/25/2022 negative x2. Liver ultrasound 12/25/2022: Cholelithiasis without definitive sonographic evidence of acute cholecystitis. CT ab/pelvis 12/25/2022: Questionable minimal pericholecystic inflammatory change per radiology. 3 mm stone at distal common bile duct. Findings concerning for acute cholecystitis per radiology. Mild interlobular septal thickening at the lung bases. Medications Administered Current Inpatient Medications Fludrocortisone Acetate (Fludrocortisone Acetate 0.1 Mg Tab) 0.05 mg PO QAM [facility] Stop: 01/24/23 17:29 Norepinephrine Bitartrate (Levophed/D5w) 4 mg in 250 mls @ 12.019 mls/hr IV .[id number] [facility]; Protocol Stop: 01/24/23 13:29 Last Titration: 12/26/22 14:35 Dose: Infused Piperacillin Sod/Tazobactam (Sod 3.375 gm/ Dextrose) 115 mls @ 28.75 mls/hr IV Q8H [facility]; Protocol Stop: 01/04/23 17:59 Last Infusion: 12/26/22 14:36 Dose: Infused Heparin Sodium/Dextrose (Heparin Sodium/Dextrose) 25,000 units in 500 mls @ 0 mls/hr IV .Q0M [facility]; Protocol Stop: 01/24/23 16:52 Last Titration: 12/26/22 08:52 Dose: 0 units/hr, 0 mls/hr Parenteral Electrolytes (Normosol-R) 1,000 mls @ 100 mls/hr IV .Q10H [facility] Stop: 01/24/23 17:14 Last Admin: 12/26/22 14:35 Dose: 100 mls/hr Famotidine 20 mg/ Syringe 5 mls @ 2.5 mls/min IV Q12 [facility] Stop: 01/24/23 20:59 Last Admin: 12/26/22 07:45 Dose: 2.5 mls/min Hydrocortisone Sodium (Succinate 50 mg/ Syringe) 1 mls @ 4 mls/min IV Q12H [facility] Stop: 01/24/23 20:29 Miscellaneous (Icu Protocol For Hyperglycemia) 1 each N/A ACHS [facility] Stop: 12/27/22 16:52 Last Admin: 12/26/22 11:31 Dose: 1 each PG Care Time/CCT Total # of Minutes Spent Total Time Spent with Patient: Total time spent is greater than 50% in coordination of care (as documented) at patient's floor/unit and/or counseling patient: Coding Level of Care Code 24283 INT INP/OBS CARE MIN Diagnoses Elevated troponin R77.8 Hyperlipidemia E78.5 Chronic heart failure with preserved ejection fraction I50.32 Severe sepsis A41.9; R65.20 Preop cardiovascular exam Z01.810 Paroxysmal atrial fibrillation I48.0
[2022-12-26] MEDS ORDERED: INDOMETHACIN 50 MG SUPP PR ONE (15:21)
[2022-12-26] MEDS ORDERED: SUGAMMADEX SODIUM 200 MG/2 ML VIAL IV ONE (15:53)
[2022-12-26] MEDS ORDERED: ONDANSETRON INJ 2 MG/ML 2 ML VIAL IV PRN (16:13)
[2022-12-26] MEDS ORDERED: fentaNYL citrate PF 100 MCG/2 ML VIAL IV PRN (16:13)
[2022-12-26] MEDS ORDERED: ATROPINE SULFATE 0.1 MG/ML 10ML SYR IV PRN (16:13)
[2022-12-26] MEDS ORDERED: HYDROmorphone INJ 2 MG/ML SYR/VIAL IV PRN (16:13)
[2022-12-26] MEDS ORDERED: ePHEDrine sulfate 50 MG/ML AMP IV PRN (16:13)
--- NOTE | 2022-12-26 16:13 | Anesthesiology Consultation ---
Date of Service December 26, 2022 Assessment & Plan ASA ASA4 Proposed Anesthesia Anesthesia Type: General Risk / Benefits Reviewed With: PT / POA / Parent / Guardian, Accepts Plan and Informed Consent Obtained Additional Notes pt much improved over yesterday. pt seen and examined prior to anesthesia History Surgery Operation Date: 12/26/22 11:20 Proposed Procedures p Endoscopic Retrograde Cholangiopancreatogram - Rigoberto Villasenor MD Operation Date: 12/27/22 07:30 Proposed Procedures p Laparoscopic Cholecystectomy - Otto Fish DO Height/Weight Height: 5 ft 6 in Weight: 81.8 kg Allergies Allergy/AdvReac Type Severity Reaction Status Date / Time tetracycline Allergy Severe RASH ON Verified 12/25/22 14:59 FACE Cvbdhfl-MOL-KgP Reductase AdvReac Intermediate LE edema Verified 12/25/22 14:59 Inhibitor [Ppoofxx-Duc-Qyi Reductase Inhibitor] oxycodone AdvReac Mild Drowsy Verified 12/26/22 07:36 Medications Home Medications Medication Instructions Recorded Confirmed Last Taken cholecalciferol (vitamin D3) 25 1,000 unit PO QAM 10/26/18 12/25/22 12/12/22 mcg (1,000 unit) capsule (Vitamin D3) magnesium 250 mg tablet 250 mg PO QAM 10/26/18 12/25/22 12/12/22 acetaminophen 500 mg tablet 1,000 mg PO Q6H PRN Pain 12/24/18 12/25/22 11/06/22 (Tylenol Extra Strength) cyclobenzaprine 10 mg tablet 10 mg PO HS 04/21/21 12/25/22 11/06/22 albuterol sulfate 90 mcg/actuation 2 puff inhalation QID PRN 04/02/22 12/25/22 12/12/22 aerosol inhaler (Ventolin HFA) shortness of breath or wheezing #8.5 grams levothyroxine 100 mcg tablet 100 mcg PO QAM #90 tabs 09/16/22 12/25/22 12/12/22 prednisone 5 mg tablet 10 mg PO QPM 11/13/22 12/25/22 12/12/22 semaglutide 0.25 mg or 0.5 mg (2 0.25 mg (0.2 mL) subcut ONCE #1.5 11/25/22 12/25/22 Unknown mg/1.5 mL) subcutaneous pen mL injector (Ozempic) apixaban 5 mg tablet (Eliquis) 5 mg PO BID #180 tabs 12/02/22 12/25/22 12/13/22 L.acidop,casei,lactis,rham-B.lact,reyes 1 cap PO HS 12/12/22 12/25/22 12/12/22 625 mg (10 billion cell) capsule (Advanced Probiotic) gabapentin 100 mg capsule 100 - 300 mg PO HS 12/12/22 12/25/22 12/12/22 metoprolol succinate 100 mg 100 mg PO BID #60 tabs 12/12/22 12/25/22 12/13/22 tablet,extended release 24 hr omeprazole 40 mg capsule,delayed 40 mg PO QAM 12/12/22 12/25/22 12/12/22 release furosemide 20 mg tablet (Lasix) 20 mg PO DAILY PRN edema of legs 12/13/22 12/25/22 Unknown #30 tabs alirocumab 75 mg/mL subcutaneous 75 mg subcut Q14D #2 mL 12/23/22 12/25/22 Unknown pen injector (Praluent Pen) Active Medications Generic Name Dose Route Start Last Admin Trade Name Freq PRN Reason Stop Dose Admin Norepinephrine Bitartrate 4 mg in 250 mls @ 12.019 mls/hr 12/25/22 13:30 12/26/22 14:35 Levophed/D5w IV 01/24/23 13:29 Infused .[id number] NASRA Titration Protocol 0.05 MCG/KG/MIN Piperacillin Sod/Tazobactam 115 mls @ 28.75 mls/hr 12/25/22 18:00 12/26/22 14:36 Sod 3.375 gm/ Dextrose IV 01/04/23 17:59 Infused Q8H NASRA Infusion Protocol Heparin Sodium/Dextrose 25,000 units in 500 mls @ 0 mls/hr 12/25/22 16:53 12/26/22 08:52 Heparin Sodium/Dextrose IV 01/24/23 16:52 0 units/hr .Q0M NASRA 0 mls/hr Titration Protocol 0 UNITS/HR Parenteral Electrolytes 1,000 mls @ 100 mls/hr 12/25/22 17:15 12/26/22 14:35 Normosol-R IV 01/24/23 17:14 100 mls/hr .Q10H NASRA Administration Famotidine 20 mg/ Syringe 5 mls @ 2.5 mls/min 12/25/22 21:00 12/26/22 07:45 IV 01/24/23 20:59 2.5 mls/min Q12 NASRA Administration Miscellaneous 1 each 12/25/22 16:53 12/26/22 11:31 Icu Protocol For Hyperglycemia N/A 12/27/22 16:52 1 each ACHS NASRA Administration NPO Date Last Intake of Fluids: 12/25/22 Time Last Intake of Fluids: 07:30 Date Last Intake of Solids: 12/25/22 Time Last Intake of Solids: 07:30 Past Medical History Medical History (HFpEF) heart failure with preserved ejection fraction Acute congestive heart failure 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--per pt due to clot, cleared from neurology--follows with PCP--has slight weakness on left side Acute on chronic kidney failure Acute respiratory failure with hypoxia AISHWARYA (acute kidney injury) Anemia of chronic disease Anxiety Bilateral leg edema Chronic kidney disease, stage 3b Diabetes mellitus type II, controlled Exertional chest pain GERD (gastroesophageal reflux disease) History of COVID-19 10/04/21--hospitalized @ [facility] for 9 days--no issues now History of MRSA infection lumbar surgical incision s/p vanco/ceftriaxone/bactrim per 04/2019 [facility] discharge summary History of recent blood transfusion 09/18/22 @ [facility] Hospital discharge follow-up Hyperlipidemia Hypertension Hypothyroidism Immunosuppression due to drug therapy Lumbar radiculopathy Persistent atrial fibrillation follows with Dr. Pedraza Recurrent UTI Rheumatoid arthritis Sepsis recent hospitalization 09/17/22 @ [facility] due to UTI Spinal stenosis Stenosis of left internal carotid artery 50-69% stenosis of left ICA per 04/2021 neck CTA Stenosis of left vertebral artery Approximately 90% stenosis within V4 segment of left vertebral artery per 04/21/2021 neck CTA Exercise / Class Metabolic Activity II 4-5 Yardwork/Stairs/Walk up hill Past Family History Family History Father Diabetes Lung cancer Cancer Hypertension Mother Malignant neoplasm of brain Diabetes Brain tumor Cancer Hypertension Aunt Breast cancer Sister Hypertension Other No family history of adverse response to anesthesia Denies family history of Ovarian cancer Prostate cancer Myocardial infarction Colorectal cancer Past Surgical History Surgical History History of x2 History of hysterectomy total History of lumbar surgery Lumbar Spine Wound Revision 05/2019 Dr. Mane @ [facility] History of total left knee replacement Hx of tonsillectomy Status post laminectomy with spinal fusion L2-L5 laminectomy/fusion: 12/24/18: Grade view 1, MAC#3, ETT 7.0 Past Anesthesia History No Hx of Anesthesia Complications and No Family Hx of Anesthesia Complications History of PONV No Hx of PONV and No Hx of Motion Sickness Social History Smoking Status: Never smoker Hx Alcohol Use: Yes Alcohol type: wine alcohol intake frequency: holidays/special occasions only Hx Substance Use: No substance use type: does not use Review of Systems denies fever/cough/ colds/ chest pain/ SOB/ LORI denies LORI Physical Exam Vital Signs Last Vital Signs Temp 36.9 C 12/26/22 14:45 Pulse 117 H 12/26/22 14:45 Resp 18 12/26/22 14:45 BP 128/69 12/26/22 14:45 Pulse Ox 93 12/26/22 14:45 O2 Del Method Room Air 12/26/22 14:45 O2 Flow Rate 1 12/26/22 13:01 ENMT Mouth: + poor dentition; no TMJ abnormality and no dentition abnormality Thyromental Distance: > or= 3.5 Finger Breadths Mallampati Class: I Neck neck extension not limited Respiratory normal respiratory effort; no respiratory distress Auscultation: lungs clear to auscultation bilaterally Cardiovascular Rate/Rhythm: regular rate and regular rhythm Neurologic moves all extremities Psychiatric Orientation: alert and oriented x 3 Testing Laboratory Results 12/26/22 04:10 12/26/22 04:10 PT 10.6 Seconds (9.0-12.0) 12/25/22 10:10 INR 1.0 (0.9-1.1) 12/25/22 10:10 APTT 40.6 Seconds (21.0-31.0) H 12/26/22 04:10 Urine Color Dark Yellow 12/25/22 Unknown Urine Appearance Turbid (Clear) A 12/25/22 Unknown Urine pH 7.0 (4.5-7.5) 12/25/22 Unknown Ur Specific Bieber 1.019 (1.000-1.030) 12/25/22 Unknown Urine Protein 3+ (Negative) H 12/25/22 Unknown Urine Glucose (UA) Negative (Negative) 12/25/22 Unknown Urine Ketones Trace (Negative) H 12/25/22 Unknown Urine Nitrite Positive (Negative) A 12/25/22 Unknown Ur Leukocyte Esterase 3+ (Negative) H 12/25/22 Unknown Urine WBC (Auto) >30 /hpf (0-5) H 12/25/22 Unknown Urine RBC (Auto) 10-30 /hpf (0-4) H 12/25/22 Unknown U Hyaline Cast (Auto) 1-5 /lpf (0-5) 12/25/22 Unknown U Epithel Cells (Auto) >30 /lpf (0-5) H 12/25/22 Unknown Urine Bacteria (Auto) 4+ (Negative) H 12/25/22 Unknown 12/25/22 14:25 Aerobic Blood Culture - Preliminary Blood No growth in Aerobic bottle after 24 hours. 12/25/22 10:10 Aerobic Blood Culture - Preliminary Blood No growth in Aerobic bottle after 24 hours. Anaerobic Blood Culture - Preliminary No growth in Anaerobic bottle after 24 hours. 12/25/22 Unknown Urine Culture - Preliminary Urine,Clean Catch Gram negative bacilli 12/26/22 12/26/22 11:03 07:34 POC Glucose 169 H 175 H
--- NOTE | 2022-12-26 17:00 | Operative Report ---
Post Operative Report Pre & Post Diagnosis Operation Date: 12/27/22 07:30 <No data on this case meets the specified criteria> I identified the patient and participated in the time-out.: Yes Procedure Operation Date: 12/27/22 07:30 <No data on this case meets the specified criteria> Surgeon Rigoberto Villasenor MD Auto Travel Counselor None Estimated Blood Loss 0 Findings See Below (Choledocholithiasis/ cystic duct stone in a nondilated CBD, removed and stent placed) Specimens None Description of Procedure ERCP I attest to the content of the Intraoperative Record and any orders documented therein. Any exceptions are noted below.
--- NOTE | 2022-12-26 17:12 | GI REPORT ---
Patient Name: Daniela Champagne Procedure Date: 12/26/2022 3:26 PM Date of : 1955 Admit Type: Inpatient Age: 67 Gender: Female Attending MD: Rigoberto Villasenor MD, Procedure: Upper GI endoscopy Providers: Rigoberto Villasenor MD Referring MD: Yaritza Hunter Md Indications: Abnormal CT of the GI tract Medicines: General Anesthesia Complications: No immediate complications. Estimated Blood Loss: Estimated blood loss: none. Procedure: Pre-Anesthesia Assessment: - Prior to the procedure, a History and Physical was performed, and patient medications, allergies and sensitivities were reviewed. The patient's tolerance of previous anesthesia was reviewed. - The risks and benefits of the procedure and the sedation options and risks were discussed with the patient. All questions were answered and informed consent was obtained. - Patient identification and proposed procedure were verified prior to the procedure by the physician and the nurse. The procedure was verified in the procedure room. - Pre-procedure physical examination revealed no contraindications to sedation. After obtaining informed consent, the endoscope was passed under direct vision. Throughout the procedure, the patient's blood pressure, pulse, and oxygen saturations were monitored continuously. The Endoscope was introduced through the mouth, and advanced to the second part of duodenum. The upper GI endoscopy was accomplished without difficulty. The patient tolerated the procedure well. Findings: The examined esophagus was normal. The entire examined stomach was normal. The duodenal bulb and second portion of the duodenum were normal. Impression: - Normal esophagus. - Normal stomach. - Normal duodenal bulb and second portion of the duodenum. - No specimens collected. Recommendation: - Perform an upper endoscopic ultrasound (UEUS) today. Rigoberto Villasenor MD 12/26/2022 5:12:13 PM This report has been signed electronically. Note Initiated On: 12/26/2022 3:26 PM Number of Addenda: 0 I attest to the content of the Intraoperative Record and orders documented therein, exceptions below {[id number]}
--- NOTE | 2022-12-26 17:15 | GI REPORT ---
Patient Name: Daniela Champagne Procedure Date: 12/26/2022 3:25 PM Date of : 1955 Admit Type: Inpatient Age: 67 Gender: Female Attending MD: Rigoberto Villasenor MD, Procedure: Upper EUS Providers: Rigoberto Villasenor MD Referring MD: Yaritza Hunter Md Indications: Abnormal abdominal/pelvic CT scan, Suspected choledocholithiasis Medicines: General Anesthesia Complications: No immediate complications. Estimated Blood Loss: Estimated blood loss: none. Procedure: Pre-Anesthesia Assessment: - Prior to the procedure, a History and Physical was performed, and patient medications, allergies and sensitivities were reviewed. The patient's tolerance of previous anesthesia was reviewed. - The risks and benefits of the procedure and the sedation options and risks were discussed with the patient. All questions were answered and informed consent was obtained. - Patient identification and proposed procedure were verified prior to the procedure by the physician and the nurse. The procedure was verified in the procedure room. - Pre-procedure physical examination revealed no contraindications to sedation. After obtaining informed consent, the endoscope was passed under direct vision. Throughout the procedure, the patient's blood pressure, pulse, and oxygen saturations were monitored continuously. The scope was introduced through the mouth, and advanced to the second part of duodenum. The upper EUS was accomplished without difficulty. The patient tolerated the procedure well. Findings: ENDOSONOGRAPHIC FINDING: : There was no sign of significant endosonographic abnormality in the ampulla. No masses were identified. There was no sign of significant endosonographic abnormality in the common bile duct. The maximum diameter of the duct was 4 mm. One stone was visualized endosonographically in the common bile duct. It was hyperechoic and characterized by shadowing. Multiple stones were visualized endosonographically in the gallbladder. They were hyperechoic and characterized by shadowing. There was no sign of significant endosonographic abnormality in the entire pancreas. The pancreatic duct measured up to 2 mm in diameter. There was no sign of significant endosonographic abnormality in the visualized portion of the liver. Homogeneous parenchyma was identified. There was no sign of significant endosonographic abnormality in the visualized portion of the left adrenal gland. There was no sign of significant endosonographic abnormality involving the celiac trunk. Impression: - There was no sign of significant pathology in the ampulla. - Tthe common bile duct was not dilated with normal [place]. - One stone was visualized endosonographically in the common bile duct. - Multiple stones were visualized endosonographically in the gallbladder. - There was no sign of significant pathology in the entire pancreas. - There was no evidence of significant pathology in the visualized portion of the liver. - Endosonographic images of the left adrenal gland were unremarkable. - The celiac trunk was endosonographically normal. Recommendation: - Perform an ERCP today. Rigoberto Villasenor MD 12/26/2022 5:15:10 PM This report has been signed electronically. Note Initiated On: 12/26/2022 3:25 PM Number of Addenda: 0 I attest to the content of the Intraoperative Record and orders documented therein, exceptions below {[id number]}
--- NOTE | 2022-12-26 17:27 | GI REPORT ---
Patient Name: Daniela Champagne Procedure Date: 12/26/2022 3:22 PM Date of : 1955 Admit Type: Inpatient Age: 67 Gender: Female Attending MD: Rigoberto Villasenor MD, Procedure: ERCP Providers: Rigoberto Villasenor MD Referring MD: Yaritza Hunter Md Indications: For therapy of bile duct stone(s) Medicines: General Anesthesia Complications: No immediate complications. Estimated Blood Loss: Estimated blood loss: none. Procedure: Pre-Anesthesia Assessment: - Prior to the procedure, a History and Physical was performed, and patient medications, allergies and sensitivities were reviewed. The patient's tolerance of previous anesthesia was reviewed. - The risks and benefits of the procedure and the sedation options and risks were discussed with the patient. All questions were answered and informed consent was obtained. - Patient identification and proposed procedure were verified prior to the procedure by the physician and the nurse. The procedure was verified in the procedure room. - Pre-procedure physical examination revealed no contraindications to sedation. After obtaining informed consent, the scope was passed under direct vision. Throughout the procedure, the patient's blood pressure, pulse, and oxygen saturations were monitored continuously. The Duodenoscope was introduced through the mouth, and advanced to the duodenum and used to inject contrast into the bile duct. The ERCP was accomplished without difficulty. The patient tolerated the procedure well. Findings: The family law specialist film was normal. The esophagus was successfully intubated under direct vision. The scope was advanced to a normal major papilla in the descending duodenum without detailed examination of the pharynx, larynx and associated structures, and upper GI tract. The upper GI tract was grossly normal. The major papilla was on the rim of a diverticulum. The ventral pancreatic duct was inadvertently cannulated with the short-nosed traction sphincterotome. A biliary pre-cut sphincterotomy was made with a monofilament needle knife using a freehand technique using ERBE electrocautery. There was no post-sphincterotomy bleeding. One 5 Fr by 9 cm plastic pancreatic stent with a single external pigtail and no internal flaps was placed into the ventral pancreatic duct. Clear fluid flowed through the stent. The stent was in good position. A 0.025 inch x 270 cm angled Visiglide wire was passed into the biliary tree. The short-nosed traction sphincterotome was passed over the guidewire and the bile duct was then deeply cannulated. Contrast was injected. I personally interpreted the bile duct images. Ductal flow of contrast was adequate. Image quality was adequate. Contrast extended to the main bile duct. Opacification of the entire biliary tree was successful. The maximum diameter of the ducts was 6 mm. The biliary sphincterotomy was extended with a monofilament traction (standard) sphincterotome using ERBE electrocautery. There was no post-sphincterotomy bleeding. The biliary tree was swept with an 11.5 mm balloon starting at the bifurcation. One stone was removed. No stones remained. One 10 Fr by 8 cm plastic biliary stent with a single external flap and a single internal flap was placed into the common bile duct. Bile flowed through the stent. The stent was in good position. Indomethacin 100 mg was given via suppository to decrease the risk of post-ERCP pancreatitis (PEP). Impression: - Choledocholithiasis in a non-dilated CBD was found. No pus or signs of cholangitis seen. Complete removal was accomplished by biliary sphincterotomy and balloon extraction. - One plastic pancreatic stent was placed into the ventral pancreatic duct. - One plastic biliary stent was placed into the common bile duct. Recommendation: - [facility]. - Follow up with Surgery for cholecystectomy. - Can resume Heparin drip without bolus dose in 24 hrs. - Can resume Eliquis after 4 days. - Repeat ERCP in 2 months to remove the stents. Rigoberto Villasenor MD 12/26/2022 5:27:02 PM This report has been signed electronically. Note Initiated On: 12/26/2022 3:22 PM Number of Addenda: 0 I attest to the content of the Intraoperative Record and orders documented therein, exceptions below {[id number]}
--- NOTE | 2022-12-26 17:34 | Anesthesiology Progress Note ---
Date of Service December 26, 2022 Anesthesia Post Procedure Vital Signs Vital Signs: Temp Pulse Pulse Resp BP BP Pulse Ox 12/26/22 14:45 36.9 C 117 H 18 128/69 93 12/26/22 14:00 100 H 18 94 12/26/22 14:00 128/68 12/26/22 13:00 97 H 14 99 12/26/22 12:00 98 H 18 96 12/26/22 12:00 121/69 12/26/22 13:01 96 12/26/22 11:32 36.8 C 12/26/22 11:00 99 H 23 97 12/26/22 11:00 118/70 12/26/22 10:30 95 H 14 99 12/26/22 10:00 97 H 23 90 12/26/22 10:00 113/88 12/26/22 09:30 96 H 16 98 12/26/22 09:00 96 H 16 97 12/26/22 09:00 116/65 12/26/22 08:00 98 H 19 86 L 12/26/22 08:00 119/65 12/26/22 07:00 98 H 14 96 12/26/22 07:00 118/83 12/26/22 08:00 12/26/22 08:00 36.3 C L 99 H 20 118/83 96 12/26/22 08:00 102 H 12/26/22 04:00 102 H 28 H 12/26/22 04:00 112/53 L 12/26/22 03:00 107 H 16 12/26/22 03:00 118/76 12/26/22 02:21 103 H 17 98 12/26/22 02:21 98/58 L 12/26/22 02:16 101 H 26 H 98 12/26/22 02:00 102 H 21 97 12/26/22 01:45 116/63 12/26/22 01:45 102 H 26 H 12/26/22 01:30 114/60 12/26/22 01:30 102 H 29 H 98 12/26/22 01:15 102 H 27 H 12/26/22 01:15 113/61 12/26/22 01:00 102 H 16 12/26/22 01:00 133/66 12/26/22 00:45 131/68 12/26/22 00:45 101 H 17 12/26/22 00:30 132/65 12/26/22 00:30 102 H 17 100 12/26/22 04:00 36.7 C 12/26/22 00:00 100 H 12/26/22 00:15 112/62 12/26/22 00:15 100 H 16 12/26/22 00:00 100 H 22 100 12/26/22 00:00 108/68 12/25/22 23:45 101/56 L 12/25/22 23:45 99 H 17 100 12/25/22 23:30 99 H 20 12/25/22 23:30 99/63 L 12/25/22 23:15 119/71 12/25/22 23:15 99 H 15 12/25/22 23:00 99 H 23 12/25/22 23:00 117/63 12/25/22 22:47 102 H 14 88 L 12/25/22 22:47 124/65 12/25/22 22:30 93/61 L 12/25/22 22:30 102 H 19 91 12/25/22 22:15 98 H 20 99 12/25/22 22:15 112/59 L 12/25/22 22:01 21 98 12/25/22 22:01 104/60 12/25/22 22:00 99 H 18 97 12/26/22 00:30 36.7 C 12/25/22 21:45 99 H 14 98 12/25/22 21:45 105/55 L 12/25/22 21:30 99 H 16 99 12/25/22 21:30 98/57 L 12/25/22 21:15 98 H 16 99 12/25/22 21:15 110/67 12/25/22 21:00 99 H 22 99 12/25/22 21:00 121/70 12/25/22 20:45 98 H 20 96 12/25/22 20:45 105/65 12/25/22 20:30 95 H 17 99 12/25/22 20:30 121/71 12/25/22 20:26 118/74 12/25/22 20:26 95 H 21 12/25/22 20:15 100 H 15 100 12/25/22 20:00 99 H 14 12/25/22 20:00 117/77 12/25/22 19:45 101 H 15 100 12/25/22 19:45 115/68 12/25/22 19:30 101 H 16 98 12/25/22 19:30 123/101 H 12/25/22 19:15 102 H 21 97 12/25/22 19:15 90/74 L 12/25/22 19:00 101 H 14 100 12/25/22 19:00 113/64 12/25/22 18:45 102 H 15 99 12/25/22 18:45 117/67 12/25/22 18:30 103 H 15 97 12/25/22 20:00 12/25/22 19:00 36.7 C 12/25/22 18:15 101 H 13 96 12/25/22 18:15 102/69 12/25/22 18:00 102 H 15 95 12/25/22 18:00 100/68 12/25/22 17:49 104 H 18 96 12/25/22 17:49 122/58 L 12/25/22 17:46 105 H 30 H 94 12/25/22 17:45 106 H 19 93 12/25/22 18:00 37.0 C O2 Del Method O2 Flow Rate 12/26/22 14:45 Room Air 12/26/22 14:00 12/26/22 14:00 12/26/22 13:00 12/26/22 12:00 12/26/22 12:00 12/26/22 13:01 Nasal Cannula 1 12/26/22 11:32 12/26/22 11:00 12/26/22 11:00 12/26/22 10:30 12/26/22 10:00 12/26/22 10:00 12/26/22 09:30 12/26/22 09:00 12/26/22 09:00 12/26/22 08:00 12/26/22 08:00 12/26/22 07:00 12/26/22 07:00 12/26/22 08:00 Room Air 12/26/22 08:00 Room Air 1 12/26/22 08:00 12/26/22 04:00 12/26/22 04:00 12/26/22 03:00 12/26/22 03:00 12/26/22 02:21 12/26/22 02:21 12/26/22 02:16 12/26/22 02:00 12/26/22 01:45 12/26/22 01:45 12/26/22 01:30 12/26/22 01:30 12/26/22 01:15 12/26/22 01:15 12/26/22 01:00 12/26/22 01:00 12/26/22 00:45 12/26/22 00:45 12/26/22 00:30 12/26/22 00:30 12/26/22 04:00 12/26/22 00:00 12/26/22 00:15 12/26/22 00:15 12/26/22 00:00 12/26/22 00:00 12/25/22 23:45 12/25/22 23:45 12/25/22 23:30 12/25/22 23:30 12/25/22 23:15 12/25/22 23:15 12/25/22 23:00 12/25/22 23:00 12/25/22 22:47 12/25/22 22:47 12/25/22 22:30 12/25/22 22:30 12/25/22 22:15 12/25/22 22:15 12/25/22 22:01 12/25/22 22:01 12/25/22 22:00 12/26/22 00:30 12/25/22 21:45 12/25/22 21:45 12/25/22 21:30 12/25/22 21:30 12/25/22 21:15 12/25/22 21:15 12/25/22 21:00 Nasal Cannula 2 12/25/22 21:00 12/25/22 20:45 12/25/22 20:45 12/25/22 20:30 12/25/22 20:30 12/25/22 20:26 12/25/22 20:26 12/25/22 20:15 12/25/22 20:00 12/25/22 20:00 12/25/22 19:45 12/25/22 19:45 12/25/22 19:30 12/25/22 19:30 12/25/22 19:15 12/25/22 19:15 12/25/22 19:00 12/25/22 19:00 12/25/22 18:45 12/25/22 18:45 12/25/22 18:30 12/25/22 20:00 Nasal Cannula 2 12/25/22 19:00 12/25/22 18:15 12/25/22 18:15 12/25/22 18:00 12/25/22 18:00 12/25/22 17:49 12/25/22 17:49 12/25/22 17:46 12/25/22 17:45 12/25/22 18:00 Pain Intensity Lower Back: Pain Intensity: 0 Transfer of Care Handoff Completed per policy Notes Mental Status: alert / awake / arousable and participated in evaluation Patient Amnestic to Procedure: Yes Nausea / Vomiting: adequately controlled Pain: adequately controlled Airway Patency, RR, SpO2: stable & adequate BP & HR: stable & adequate Hydration State: stable & adequate Anesthetic Complications: no major complications apparent and Pt Satisfied with anesthetic care
--- NOTE | 2022-12-26 17:52 | Fluoroscopy Report ---
[place] ERCP biliary ductal CLINICAL HISTORY: EXPLORE DUCTS COMPARISON STUDY: CT of the abdomen and pelvis and right upper quadrant ultrasound December 25, 2022. FLUOROSCOPY TIME: 41 seconds. EXPOSURE DOSE: 27.3 mGy FLUOROSCOPIC IMAGES: 7 FINDINGS: Fluoroscopy was provided during ERCP. The common bile duct was cannulated. Filling defect w ithin the distal common bile duct suggests a common bile duct calculus. Balloon sweep through the com mon bile duct was performed. Gallbladder is opacified. There is no biliary ductal dilatation. A commo n bile duct stent was placed. IMPRESSION: Fluoroscopy provided during ERCP with placement of a common bile duct stent. ACT 112: Negative or not required by law. Electronically signed by: Gus Ojeda M.D. 12/26/2022 5:51 PM
[2022-12-26] MEDS ORDERED: GLUCAGON FOR INJ 1 MG VIAL ONE (17:55)
--- NOTE | 2022-12-26 22:53 | XCELERA ---
[id number]
[2022-12-27] MEDS: NORMOSOL-R 1,000 ML IV SCH (00:44)
[2022-12-27] MEDS: PIPERACILLIN/TAZOBACTAM 3.375 GM in DEXTROSE 5% 100 ML IV SCH ×3 (00:47→18:24)
[2022-12-27] MEDS ORDERED: METOPROLOL TARTRATE 1 MG/ML VIAL IV STA ×4 (02:46→22:28)
[2022-12-27] MEDS: NOREPINEPHRINE/D5W 4 MG/250 ML PLCT IV SCH (04:07)
[2022-12-27 05:11] LABS: Hematocrit (blood only) 29.1 % (37.0-47.0); Hemoglobin 8.8 g/dl (12.0-16.0); Mean Corpuscular Hemoglobin 27.3 pg (25.0-34.0); Mean Corpuscular Hgb Conc 30.2 g/dL (32.0-36.0); Mean Corpuscular Volume 90.4 fL (80.0-100.0); Mean Platelet Volume 9.9 fL (9.4-12.4); Platelet Count 202 K/uL (130-400); RDW Coefficient of Variation 15.3 % (11.5-14.5); RDW Standard Deviation 51.2 fL (36.4-46.3); Red Blood Count 3.22 M/uL (4.20-5.40); White Blood Count 13.66 K/ul (4.8-10.8)
[2022-12-27] MEDS ORDERED: ACETAMINOPHEN 1,000 MG/100 ML VIAL IV PRN (05:20)
[2022-12-27 05:28] LABS: BUN Creatinine Ratio 21.9 (10-20); Bilirubin Direct 0.1 mg/dl (0-0.2); Bilirubin,Total 0.3 mg/dl (0.2-1.0); Calcium 7.4 mg/dl (8.5-10.1); Creatinine Clr Calc Pharmacy 38.5 ml/min; Est GFR (African American) 39.7 ml/min; Est GFR (Non-African American) 34.3 ml/min; Magnesium 2.7 mg/dl (1.7-2.4); Phosphorus 4.2 mg/dl (2.5-4.9); Potassium 3.9 mmol/L (3.5-5.1); Total Protein 5.3 gm/dl (6.0-8.3)
[2022-12-27] MEDS ORDERED: ACETAMINOPHEN 1000 MG/100 ML IV IV ONE (05:31)
[2022-12-27 05:39] LABS: Basophils # (auto) 0.02 K/uL (0-0.2); Basophils % (auto) 0.1 %; Dohle Bodies 1+; Eosinophils # (auto) 0.05 K/uL (0-0.50); Eosinophils % (auto) 0.4 %; Immature Granulocytes % (auto) 0.7 %; Lymphocytes # (auto) 0.38 K/uL (1.2-3.4); Lymphocytes % (auto) 2.8 %; Monocytes # (auto) 0.34 K/uL (0.11-0.59); Monocytes % (auto) 2.5 %; Neutrophils # (auto) 12.77 K/uL (1.40-6.50); Neutrophils % (auto) 93.5 %
[2022-12-27] MEDS ORDERED: LIDOCAINE 2% MPF LOCAL 5 ML VIAL INFIL ONE (06:46)
[2022-12-27] MEDS ORDERED: DEXAMETHASONE SOD INJ 4 MG/ML VIAL ONE (06:46)
[2022-12-27] MEDS ORDERED: PROPOFOL IV EMULSION 10 MG/ML 20 ML VIAL IV ONE (06:46)
[2022-12-27] MEDS ORDERED: fentaNYL citrate PF 100 MCG/2 ML VIAL ONE (06:46)
[2022-12-27] MEDS ORDERED: ROCURONIUM BROMIDE 10 MG/ML 5 ML VIAL IV ONE (06:46)
[2022-12-27] MEDS ORDERED: ONDANSETRON INJ 2 MG/ML 2 ML VIAL ONE (06:46)
[2022-12-27] MEDS ORDERED: MIDAZOLAM HCL 1 MG/ML 2ML VIAL ONE (06:50)
[2022-12-27] MEDS ORDERED: METOPROLOL TARTRATE 1 MG/ML VIAL IV SCH (08:00)
[2022-12-27] MEDS: FAMOTIDINE 20 MG in SYRINGE 3 ML IV SCH (08:03)
[2022-12-27] MEDS: HYDROCORTISONE SOD 50 MG in SYRINGE 0 ML IV SCH (08:03)
[2022-12-27] MEDS: ICU Protocol for HYPERglycemia SCH ×2 (08:04→12:59)
[2022-12-27] MEDS ORDERED: FLUDROCORTISONE ACETATE 0.1 MG TAB PO SCH (09:00)
--- NOTE | 2022-12-27 09:03 | Critical Care Progress Note ---
Date of Service December 27, 2022 Assessment & Plan (1) Sepsis: (2) (HFpEF) heart failure with preserved ejection fraction: (3) Anemia of chronic disease: (4) Chronic kidney disease, stage 3b: (5) Diabetes mellitus with neuropathy: (6) Hyperlipidemia: (7) Hypertension: (8) Hypothyroidism: (9) Rheumatoid arthritis: (10) TIA involving vertebral artery: Plan Impression: 67 F with hx of hypothyroidism, A Fib on Eliquis (s/p C ardioversion 12/13), HFpEF, RA (on chronic prednisone), HLD, HTN, CKD3, hx of TIA, and DM who presented in severe sepsis w/ associated septic shock with undifferentiated source of infection (GI vs ). She was admitted for ICU management with pressor support and aggressive fluid resuscitation. 24-hour events: Patient was taken to the OR for upper endoscopy ERCP by GI. Sphincterotomy performed. Duct was swept with retrieval of stone. She was extubated and returned to the ICU and is hemodynamically stable overnight. She did have a few episodes of tachyarrhythmia which responded to IV beta-blockers. Her surgery has been put on hold. Recommendations: NEURO -no current issues. Continue to follow clinically. CARDIAC/VASCULAR -atrial fibrillation. Will resume p.o. beta-danae as the patient's surgery has been canceled. Heparin can be resumed without a bolus later this afternoon per GI. Can restart DOAC in 4 days. Off pressors. Adequately volume resuscitated. Continue IV fluids. RESPIRATORY -no current issues. Weaning oxygen as tolerated. Out of bed to chair as tolerated. Incentive spirometry. GI/NUTRITION -choledocholithiasis without cholangitis. Stents in place. Will need follow-up outpatient ERCP for stent removal. LFTs improving. Plan for stabilization and then consideration of outpatient cholecystectomy with general surgery. Okay to advance diet as tolerated. Discontinue H2 danae. RENAL/LYTES -patient presented with acute kidney injury. Improving but not yet back to baseline. Continue to follow daily labs. Electrolyte replacement as needed. -discontinue Zamorano catheter. ENDO -glycemic control per protocol. Continue home Synthroid. On stress dose steroids. Continue to wean over the next several days. May be able to resume the patient's outpatient steroid dose. Recommend following up with her psych rn to see if she can get off steroids chronically. HEME -stable anemia. No evidence of acute blood loss. No indication for transfusion currently. Continue to follow ID -urinary tract infection versus cholecystitis. White count is improving and hemodynamically better. Lactate is cleared. Day number 3 Zosyn. Urine culture growing Proteus which is pansensitive. Zosyn would be adequate coverage for biliary sepsis as well as the UTI so would anticipate completing a 5 to 7-day course. Continue to trend white blood cell count. LINES/IV ACCESS * PIVs x3 * Zamorano catheter DVT PROPHYLAXIS * Okay to restart heparin this afternoon without a bolus. DOAC can be resumed in 4 days. Patient's critical care issues appear resolved currently. She can transfer to the floor on telemetry to the care of the hospitalist. Critical care will sign off. Feel free to contact us if we can be of additional assistance Admission and Anticipated Discharge Date Admission Date: December 25, 2022 Subjective Patient seen and examined. EMR reviewed. The patient is doing well. She did have some tachyarrhythmias overnight which responded appropriately to IV beta- blockers. She has been n.p.o. for surgery admitted to posterior surgery is on hold until she is more stabilized. They plan on doing her cholecystectomy as an outpatient. She had an ERCP performed yesterday with sphincterotomy and stone extraction and has done well clinically. She denies any abdominal pain. No fevers chills or night sweats. She is not having any nausea or vomiting. No melena hematochezia or hematemesis. She has not had any significant lower ex tremity edema. No shortness of breath with exertion. No orthopnea. She appears to be doing well currently and without significant complaint Review of Systems Review of Systems: All systems reviewed & are unremarkable except as noted in Subjective Physical Exam Constitutional: WD/WN, vitals as above Neck: trachea midline, no thyromegaly Respiratory: normal respiratory effort, lungs clear to auscultation Cardiovascular: RRR, no murmur, no edema Gastrointestinal (Abdomen): normal bowel sounds, soft, nontender, no hepatosp lenomegaly Musculoskeletal: Extremities: extremities normal to inspection Skin: no rashes, warm and dry Neurologic: Nonfocal exam Lymphatic: no cervical lymphadenopathy Results & Data Results & Data Vital Signs (Past 12 Hours) Vital Signs Temp Pulse Resp BP Pulse Ox 12/27/22 08:07 102 H 145/92 H 12/27/22 07:40 109 H 151/89 H 12/27/22 05:40 103 H 23 95 12/27/22 05:30 103 H 20 93 12/27/22 05:20 102 H 16 97 12/27/22 05:10 102 H 18 94 12/27/22 05:00 101 H 18 97 12/27/22 05:00 122/80 12/27/22 04:50 104 H 19 92 12/27/22 04:40 104 H 16 93 12/27/22 04:30 98 H 19 99 12/27/22 04:20 119 H 15 95 12/27/22 04:10 102 H 16 97 12/27/22 04:00 119 H 17 99 12/27/22 04:00 132/88 12/27/22 03:50 95 H 14 98 12/27/22 03:40 96 H 15 99 12/27/22 03:30 99 H 14 99 12/27/22 03:20 99 H 16 98 12/27/22 03:10 100 H 17 98 12/27/22 03:00 100 H 17 97 12/27/22 03:00 157/86 H 12/27/22 02:50 102 H 16 97 12/27/22 04:11 37.1 C 12/27/22 03:06 100 H 157/86 H 12/27/22 02:40 109 H 15 97 12/27/22 02:30 99 H 16 98 12/27/22 02:20 103 H 13 99 12/27/22 02:10 97 H 13 99 12/27/22 02:00 99 H 13 99 12/27/22 01:50 120 H 13 99 12/27/22 01:40 96 H 13 99 12/27/22 01:30 98 H 13 97 12/27/22 01:20 97 H 13 94 12/27/22 01:10 105 H 15 98 12/27/22 01:00 99 H 18 98 12/27/22 01:00 152/77 H 12/27/22 00:50 101 H 17 12/27/22 00:40 100 H 14 12/27/22 00:30 101 H 16 91 12/27/22 00:20 98 H 18 12/27/22 00:10 92 H 11 L 94 03/17/23 00:00 94 H 12 96 03/17/23 00:00 128/71 12/26/22 23:50 93 H 12 96 12/26/22 23:40 94 H 12 96 12/26/22 23:30 117 H 13 96 12/26/22 23:20 92 H 13 96 12/26/22 23:10 96 H 13 96 12/26/22 23:00 94 H 12 97 12/26/22 23:00 138/69 12/26/22 22:50 94 H 13 96 12/26/22 22:40 92 H 11 L 97 12/26/22 22:30 91 H 11 L 98 12/26/22 22:20 92 H 13 96 12/26/22 22:10 93 H 12 97 12/26/22 22:00 93 H 13 98 12/26/22 22:00 142/76 H 12/26/22 21:50 91 H 14 98 12/26/22 21:40 93 H 14 97 12/26/22 21:30 91 H 12 87 L 12/26/22 21:20 92 H 12 90 12/26/22 21:10 89 12 91 12/26/22 21:00 91 H 12 92 12/26/22 21:00 117/61 12/26/22 20:50 91 H 12 94 12/27/22 01:33 96 H 12/27/22 00:38 37 C Diagnostic Findings ERCP reviewed. Stent placed. Sphincterotomy done. Stone extracted. Transthoracic echocardiogram showed EF of 60 to 65% without wall motion abnormalities. Moderate concentric LVH with left atrial dilatation. Right ventricular systolic pressure was normal. Not significantly changed compared to October. Critical Care Results & Data Vital Signs (Past 12 Hours) Vital Signs Temp Pulse Resp BP Pulse Ox 12/27/22 08:07 102 H 145/92 H 12/27/22 07:40 109 H 151/89 H 12/27/22 05:40 103 H 23 95 12/27/22 05:30 103 H 20 93 12/27/22 05:20 102 H 16 97 12/27/22 05:10 102 H 18 94 12/27/22 05:00 101 H 18 97 12/27/22 05:00 122/80 12/27/22 04:50 104 H 19 92 12/27/22 04:40 104 H 16 93 12/27/22 04:30 98 H 19 99 12/27/22 04:20 119 H 15 95 12/27/22 04:10 102 H 16 97 12/27/22 04:00 119 H 17 99 12/27/22 04:00 132/88 12/27/22 03:50 95 H 14 98 12/27/22 03:40 96 H 15 99 12/27/22 03:30 99 H 14 99 12/27/22 03:20 99 H 16 98 12/27/22 03:10 100 H 17 98 12/27/22 03:00 100 H 17 97 12/27/22 03:00 157/86 H 12/27/22 02:50 102 H 16 97 12/27/22 04:11 37.1 C 12/27/22 03:06 100 H 157/86 H 12/27/22 02:40 109 H 15 97 12/27/22 02:30 99 H 16 98 12/27/22 02:20 103 H 13 99 12/27/22 02:10 97 H 13 99 12/27/22 02:00 99 H 13 99 12/27/22 01:50 120 H 13 99 12/27/22 01:40 96 H 13 99 12/27/22 01:30 98 H 13 97 12/27/22 01:20 97 H 13 94 12/27/22 01:10 105 H 15 98 12/27/22 01:00 99 H 18 98 12/27/22 01:00 152/77 H 12/27/22 00:50 101 H 17 12/27/22 00:40 100 H 14 12/27/22 00:30 101 H 16 91 12/27/22 00:20 98 H 18 12/27/22 00:10 92 H 11 L 94 12/27/22 00:00 94 H 12 96 12/27/22 00:00 128/71 12/26/22 23:50 93 H 12 96 12/26/22 23:40 94 H 12 96 12/26/22 23:30 117 H 13 96 12/26/22 23:20 92 H 13 96 12/26/22 23:10 96 H 13 96 12/26/22 23:00 94 H 12 97 12/26/22 23:00 138/69 12/26/22 22:50 94 H 13 96 12/26/22 22:40 92 H 11 L 97 12/26/22 22:30 91 H 11 L 98 12/26/22 22:20 92 H 13 96 12/26/22 22:10 93 H 12 97 12/26/22 22:00 93 H 13 98 12/26/22 22:00 142/76 H 12/26/22 21:50 91 H 14 98 12/26/22 21:40 93 H 14 97 12/26/22 21:30 91 H 12 87 L 12/26/22 21:20 92 H 12 90 12/26/22 21:10 89 12 91 12/26/22 21:00 91 H 12 92 12/26/22 21:00 117/61 12/27/22 01:33 96 H 12/27/22 00:38 37 C Lab & Micro Results (Past 24 Hours) RBC 3.22 M/uL (4.20-5.40) L 12/27/22 WBC 13.66 K/ul (4.8-10.8) H 12/27/22 Hgb 8.8 g/dl (12.0-16.0) L 12/27/22 Hct 29.1 % (37.0-47.0) L 12/27/22 MCV 90.4 fL (80.0-100.0) 12/27/22 MCH 27.3 pg (25.0-34.0) 12/27/22 MCHC 30.2 g/dL (32.0-36.0) L 12/27/22 RDW Standard Deviation 51.2 fL (36.4-46.3) H 12/27/22 RDW Coefficient of Variation 15.3 % (11.5-14.5) H 12/27/22 Plt Count 202 K/uL (130-400) 12/27/22 MPV 9.9 fL (9.4-12.4) 12/27/22 Neutrophils (%) (Auto) 93.5 % 12/27/22 Lymphocytes (%) (Auto) 2.8 % 12/27/22 Monocytes # (Auto) 0.34 K/uL (0.11-0.59) 12/27/22 Eosinophils # (Auto) 0.05 K/uL (0-0.50) 12/27/22 Immature Granulocyte % (Auto) 0.7 % 12/27/22 Neutrophils # (Auto) 12.77 K/uL (1.40-6.50) H 12/27/22 Lymphocytes # (Auto) 0.38 K/uL (1.2-3.4) L 12/27/22 Monocytes # (Auto) 0.34 K/uL (0.11-0.59) 12/27/22 Eosinophils # (Auto) 0.05 K/uL (0-0.50) 12/27/22 Basophils # (Auto) 0.02 K/uL (0-0.2) 12/27/22 Immature Granulocyte # (Auto) 0.10 K/uL (0.01-0.20) 3 Dohle Bodies 1+ 12/27/22 Na 141 mmol/L (136-145) 12/27/22 K 3.9 mmol/L (3.5-5.1) 12/27/22 Cl 108 mmol/L (98-107) H 12/27/22 CO2 26 mmol/L (21-32) 12/27/22 Anion Gap 7 (3-11) 12/27/22 BUN 34 mg/dl (6-23) H 12/27/22 Creatinine 1.55 mg/dl (0.6-1.2) H 12/27/22 Estimated GFR ( Amer) 39.7 ml/min 12/27/22 Estimated GFR (Non-Af Amer) 34.3 ml/min 12/27/22 BUN/Creatinine Ratio 21.9 (10-20) H 12/27/22 Glu 162 mg/dl (70-99(Fasting)) H 12/27/22 Ca 7.4 mg/dl (8.5-10.1) L 12/27/22 Phosphorus Level 4.2 mg/dl (2.5-4.9) 12/27/22 Total Bilirubin 0.3 mg/dl (0.2-1.0) 12/27/22 Direct Bilirubin 0.1 mg/dl (0-0.2) 12/27/22 AST 39 U/L (13-39) 12/27/22 ALT 66 U/L (7-52) H 12/27/22 Alkaline Phosphatase 71 U/L (34-104) 12/27/22 TP 5.3 gm/dl (6.0-8.3) L 12/27/22 Albumin 3.0 gm/dl (3.4-5.0) L 12/27/22 Mg 2.7 mg/dl (1.7-2.4) H 12/27/22 04:43 Calcium Level 7.4 mg/dl (8.5-10.1) L 12/27/22 04:43 Microbiology 12/25/22 Unknown Urine Culture - Preliminary Urine,Clean Catch Proteus mirabilis 12/25/22 14:25 Aerobic Blood Culture - Preliminary Blood No growth in Aerobic bottle after 24 hours. Anaerobic Blood Culture - Final 12/25/22 10:10 Aerobic Blood Culture - Preliminary Blood No growth in Aerobic bottle after 24 hours. Anaerobic Blood Culture - Preliminary No growth in Anaerobic bottle after 24 hours. Diagnostic Findings (Past 24 Hours) Endo Retro Cholangiopancreatogram 12/26/22 00:00 [place] ERCP biliary ductal CLINICAL HISTORY: EXPLORE DUCTS COMPARISON STUDY: CT of the abdomen and pelvis and right upper quadrant ultrasound December 25, 2022. FLUOROSCOPY TIME: 41 seconds. EXPOSURE DOSE: 27.3 mGy FLUOROSCOPIC IMAGES: 7 FINDINGS: Fluoroscopy was provided during ERCP. The common bile duct was cannulated. Filling defect within the distal common bile duct suggests a common bile duct calculus. Balloon sweep through the common bile duct was performed. Gallbladder is opacified. There is no biliary ductal dilatation. A common bile duct stent was placed. IMPRESSION: Fluoroscopy provided during ERCP with placement of a common bile duct stent. ACT 112: Negative or not required by law. Electronically signed by: Gus Ojeda M.D. 12/26/2022 5:51 PM I & O Totals 24 Hours 12/26/22 12/27/22 12/28/22 06:59 06:59 06:59 Intake Total 5533.613 / 5533.613 3186.167 / 3186.167 Output Total 600 / 600 1800 / 1800 Balance 4933.613 / 4933.613 1386.167 / 1386.167 Cumulative 12/25/22 09:20 thru 12/27/22 05:18 Intake Total 8719.780 Output Total 2400 Balance 6319.780 RT Ventilator Mngmt (Last Documented) Ventilator Ordered Settings Respiratory Rate 23 12/27/22 05:40 Ventilator - PT Measurements Respiratory Rate 23 Coding Level of Care Code 87700 SUB INP/OBS CARE 3/50MIN Diagnoses Sepsis A41.9 (HFpEF) heart failure with preserved ejection fraction I50.30 Anemia of chronic disease D63.8 Chronic kidney disease, stage 3b N18.32 Diabetes mellitus with neuropathy E11.40 Hyperlipidemia E78.5 Hypertension I10 Hypertension type: essential hypertension Hypothyroidism E03.9 Hypothyroidism type: unspecified Rheumatoid arthritis M06.9 Rheumatoid arthritis location: multiple sites Rheumatoid factor presence: unspecified presence TIA involving vertebral artery G45.0 (7) Hypertension Hypertension type: essential hypertension Qualified Code(s): I10 - Essential (primary) hypertension (8) Hypothyroidism Hypothyroidism type: unspecified Qualified Code(s): E03.9 - Hypothyroidism, unspecified (9) Rheumatoid arthritis Rheumatoid arthritis location: multiple sites Rheumatoid factor presence: unspecified presence Qualified Code(s): M06.9 - Rheumatoid arthritis, unspecified
[2022-12-27] MEDS ORDERED: predniSONE 10 MG TABLET PO SCH (09:15)
[2022-12-27] MEDS ORDERED: METOPROLOL SUCC 50MG EXT REL TAB PO SCH (09:15)
[2022-12-27] MEDS ORDERED: FUROSEMIDE 20 MG TAB PO ONE (10:19)
--- NOTE | 2022-12-27 11:03 | Surgery Progress Note ---
Date of Service December 27, 2022 Assessment & Plan (1) Choledocholithiasis: Plan: ERCP images and results personally viewed by myself, patent cystic duct with choledocholithiasis seen No plans for cholecystectomy this admission due to her gram-negative sepsis from her UTI She can restart her Eliquis from my standpoint She can see me in the clinic next week as we can discuss elective cholecystectomy Ideally cholecystectomy should be performed within 6 weeks as her sphincterotomy should limit any biliary blockages in the meantime Surgery will sign off at this time, please call with any questions or concerns Admission and Anticipated Discharge Date Admission Date: December 25, 2022 Subjective Patient seen and examined. No abdominal pain. No nausea or vomiting. Afebrile. Review of Systems Constitutional: no fever and no chills Gastrointestinal: no abdominal pain, no nausea and no vomiting Physical Exam Constitutional: WD/WN, vitals as above Gastrointestinal (Abdomen): Inspection/Auscultation: abdomen normal to inspection; abdomen not distended Percussion/Palpation: abdomen soft; abdomen nontender, no guarding and abdomen not rigid Results & Data Vital Signs (Past 12 Hours) Vital Signs Temp Pulse Resp BP Pulse Ox O2 Del Method O2 Flow Rate 12/27/22 10:00 97 H 17 159/97 H 94 12/27/22 09:00 93 H 15 154/107 H 94 12/27/22 08:00 94 H 19 145/92 H 94 12/27/22 07:00 115 H 18 151/89 H 99 Nasal Cannula 2 12/27/22 08:00 Nasal Cannula 2 12/27/22 08:07 102 H 145/92 H 12/27/22 07:40 109 H 151/89 H 12/27/22 05:40 103 H 23 95 12/27/22 05:30 103 H 20 93 12/27/22 05:20 102 H 16 97 12/27/22 05:10 102 H 18 94 12/27/22 05:00 101 H 18 97 12/27/22 05:00 122/80 12/27/22 04:50 104 H 19 92 12/27/22 04:40 104 H 16 93 12/27/22 04:30 98 H 19 99 12/27/22 04:20 119 H 15 95 12/27/22 04:10 102 H 16 97 12/27/22 04:00 119 H 17 99 03/17/23 04:00 132/88 12/27/22 03:50 95 H 14 98 12/27/22 03:40 96 H 15 99 12/27/22 03:30 99 H 14 99 12/27/22 03:20 99 H 16 98 12/27/22 03:10 100 H 17 98 12/27/22 03:00 100 H 17 97 12/27/22 03:00 157/86 H 12/27/22 02:50 102 H 16 97 12/27/22 04:11 37.1 C 12/27/22 03:06 100 H 157/86 H 12/27/22 02:40 109 H 15 97 12/27/22 02:30 99 H 16 98 12/27/22 02:20 103 H 13 99 12/27/22 02:10 97 H 13 99 12/27/22 02:00 99 H 13 99 12/27/22 01:50 120 H 13 99 12/27/22 01:40 96 H 13 99 12/27/22 01:30 98 H 13 97 12/27/22 01:20 97 H 13 94 12/27/22 01:10 105 H 15 98 12/27/22 01:00 99 H 18 98 12/27/22 01:00 152/77 H 12/27/22 00:50 101 H 17 12/27/22 00:40 100 H 14 12/27/22 00:30 101 H 16 91 12/27/22 00:20 98 H 18 12/27/22 00:10 92 H 11 L 94 12/27/22 00:00 94 H 12 96 12/27/22 00:00 128/71 12/26/22 23:50 93 H 12 96 12/26/22 23:40 94 H 12 96 12/26/22 23:30 117 H 13 96 12/26/22 23:20 92 H 13 96 12/26/22 23:10 96 H 13 96 12/27/22 01:33 96 H 12/27/22 00:38 37 C PG Care Time/CCT Total # of Minutes Spent Total Time Spent with Patient: Total time spent is greater than 50% in coordination of care (as documented) at patient's floor/unit and/or counseling patient: Coding Level of Care Code 11707 SUB INP/OBS CARE 1/25MIN Diagnoses Choledocholithiasis K80.50
--- NOTE | 2022-12-27 11:52 | Gastroenterology Progress Note ---
Date of Service December 27, 2022 Assessment & Plan (1) Choledocholithiasis: Plan: resolved w ERCP yesterday Plan 1. Advance diet 2. No clear GI indication for antibiotics at this time. 3. Needs repeat ERCP in 2 months for removal of stent, our office will contact her to arrange. 4. GI will sign off. Please notify us if new GI issues. Admission and Anticipated Discharge Date Admission Date: December 25, 2022 Supervising Physician Co-Signing Physician Notes I performed a history and physical examination of the patient today, including specifically on physical exam - soft abdomen. I have discussed the patient's management with the advanced practitioner. Please refer to the nurse practitioner's note for the documented findings and plan of care. Doing well today. Surgery for cholecystectomy. Recall GI if needed. Subjective 67-year-old female underwent ERCP yesterday for choledocholithiasis, with sphincterotomy and sweeping of the bile duct for stones. Patient much more alert awake "feels better," today. Leukocytosis much improved. LFTs improved as well with ALT 66 being the only abnormality. Review of Systems Review of Systems: ROS: Gen: + weakness, reports mild confusion prior to arrival. Denies fevers or weight loss Eyes: No eye redness, or pain, no recent vision changes Resp: No SOB, no cough Cardio: No palpitations/irregular beats, no chest pain GI: No abdominal pain, no nausea/vomiting; did have "pressure across the shoulders" : Denies pain on urination Skin: No jaundice, itching or new rashes Physical Exam Constitutional: WD/WN, vitals as above Eyes: PERRL, conjunctivae normal, anicteric sclerae ENMT: external ear and nose normal, oropharynx normal Neck: trachea midline, no thyromegaly Respiratory: normal respiratory effort, lungs clear to auscultation Cardiovascular: RRR, no murmur, no edema Gastrointestinal (Abdomen): normal bowel sounds, soft, nontender, no hepatosplenomegaly Musculoskeletal: no cyanosis or clubbing, extremities motor strength 5/5 Skin: no rashes, warm and dry Neurologic: PERRL, EOMI, accommodation nl, no face palsy, no dysarthria Psychiatric: A+Ox3, euthymic affect Lymphatic: no cervical or axillary lymphadenopathy Results & Data Vital Signs (Past 12 Hours) Vital Signs Temp Pulse Resp BP Pulse Ox O2 Del Method O2 Flow Rate 12/27/22 10:00 97 H 17 159/97 H 94 12/27/22 09:00 93 H 15 154/107 H 94 12/27/22 08:00 94 H 19 145/92 H 94 12/27/22 07:00 115 H 18 151/89 H 99 Nasal Cannula 2 12/27/22 08:00 Nasal Cannula 2 12/27/22 08:07 102 H 145/92 H 12/27/22 07:40 109 H 151/89 H 12/27/22 05:40 103 H 23 95 12/27/22 05:30 103 H 20 93 12/27/22 05:20 102 H 16 97 12/27/22 05:10 102 H 18 94 12/27/22 05:00 101 H 18 97 12/27/22 05:00 122/80 12/27/22 04:50 104 H 19 92 12/27/22 04:40 104 H 16 93 12/27/22 04:30 98 H 19 99 12/27/22 04:20 119 H 15 95 12/27/22 04:10 102 H 16 97 12/27/22 04:00 119 H 17 99 12/27/22 04:00 132/88 12/27/22 03:50 95 H 14 98 12/27/22 03:40 96 H 15 99 12/27/22 03:30 99 H 14 99 12/27/22 03:20 99 H 16 98 12/27/22 03:10 100 H 17 98 12/27/22 03:00 100 H 17 97 12/27/22 03:00 157/86 H 12/27/22 02:50 102 H 16 97 12/27/22 04:11 37.1 C 12/27/22 03:06 100 H 157/86 H 12/27/22 02:40 109 H 15 97 12/27/22 02:30 99 H 16 98 12/27/22 02:20 103 H 13 99 12/27/22 02:10 97 H 13 99 12/27/22 02:00 99 H 13 99 12/27/22 01:50 120 H 13 99 12/27/22 01:40 96 H 13 99 12/27/22 01:30 98 H 13 97 12/27/22 01:20 97 H 13 94 12/27/22 01:10 105 H 15 98 12/27/22 01:00 99 H 18 98 12/27/22 01:00 152/77 H 12/27/22 00:50 101 H 17 12/27/22 00:40 100 H 14 12/27/22 00:30 101 H 16 91 12/27/22 00:20 98 H 18 12/27/22 00:10 92 H 11 L 94 12/27/22 00:00 94 H 12 96 12/27/22 00:00 128/71 12/26/22 23:50 93 H 12 96 12/27/22 01:33 96 H 12/27/22 00:38 37 C Laboratory Results T. bili 0.3, D bili 0.1, AST 39, ALT 66, alk phos 71 WBC 13.6, Hb 8.8, HCT 29, PLT S202, NA 141, K3.9, CL 108, CO2 26, BUN 34, CR 1.5, glucose 162 Diagnostic Findings EUS 12/26/2022: - One stone was visualized endosonographically in the common bile duct. - Multiple stones were visualized endosonographically in the gallbladder. ERCP 12/26/2022: - Choledocholithiasis in a non-dilated CBD was found. No pus or signs of cholangitis seen. Complete removal was accomplished by biliary sphincterotomy and balloon extraction. - One plastic pancreatic stent was placed into the ventral pancreatic duct. - One plastic biliary stent was placed into the common bile duct.
[2022-12-27] MEDS ORDERED: predniSONE 5 MG TAB PO ONE (12:48)
[2022-12-27] MEDS ORDERED: FUROSEMIDE 40 MG/4 ML VIAL IV ONE (12:56)
--- NOTE | 2022-12-27 14:14 | Cardiology Progress Note ---
Date of Service December 27, 2022 Assessment & Plan (1) Chronic heart failure with preserved ejection fraction: (2) Elevated troponin: (3) Hyperlipidemia: (4) Severe sepsis: (5) Preop cardiovascular exam: (6) Paroxysmal atrial fibrillation: Plan ASSESSMENT/PLAN: 1. Chronic heart failure with preserved EF: She is hypervolemic. She is nearly 7 L net positive with treatment of her sepsis. Agree with intravenous Lasix, which she is pending. Recommend 1 to 2 L negative today. Will likely need further Lasix tomorrow. Monitor renal function and electrolytes. Low-sodium diet. Strict I's and O's. Daily weights. 2. Paroxysmal atrial fibrillation: Remains in sinus rhythm. Would not be surprised if she develops atrial fibrillation in the setting of sepsis. Beta- danae resumed today. GI has stated that heparin drip can be resumed 24 hours after ERCP. Please initiate heparin drip at that time. Ideally, would like to avoid significant holding of her anticoagulation therapy as she is within 4 weeks of cardioversion. 3. Sepsis: As per critical care team and other providers. 4. Elevated troponin: Likely due to sepsis requiring pressors. She did not present with acute coronary syndrome. She had very brief chest discomfort that she describes as originating from shoulder pain. Ischemic evaluation not warranted at this time. Recommend appropriate treatment for her presenting illness, sepsis. 5. Dyslipidemia: She is on PCSK9 inhibitor as an outpatient. 6. Anemia: As per primary service. 7. Disposition: Patient care communicated with Dr. Hunter of the primary hospitalist service. Please call on-call [facility] laborer hoisting with any further questions or concerns. Will sign her out to Dr. Davis for the weekend. Admission and Anticipated Discharge Date Admission Date: December 25, 2022 Subjective Patient underwent ERCP yesterday. She has noted increased shortness of breath today and some orthopnea. Net fluid balance this hospital stay is +6.7 L. She was given Lasix 20 mg p.o. this morning. 40 mg of IV Lasix has been ordered but not yet given. She denies chest pain, syncope, near syncope, palpitations. She has noted increased edema since yesterday. She was alone in her hospital room. Physical Exam Physical Exam: Gen.: No acute distress. Alert. HEENT: Anicteric sclera. Neck: Thick neck. Cardiac: No ventricular heave. Regular. Normal S1-S2. No murmurs, rubs, or gallops. Pulmonary: Bilateral wheezing. No rales. Abdomen: Soft, nontender, nondistended, with normoactive bowel sounds. No bruits noted. Extremities: 2+ radial pulses bilaterally. 2+ posterior tibialis pulses bilaterally. Trace-1+ bilateral lower extremity edema. Trace bilateral upper extremity edema. No cyanosis. Results & Data Vital Signs (Past 12 Hours) Vital Signs Temp Pulse Resp BP Pulse Ox O2 Del Method O2 Flow Rate 12/27/22 12:00 99 H 28 H 171/95 H 94 12/27/22 11:00 99 H 17 168/99 H 95 12/27/22 08:00 114 H 12/27/22 10:00 97 H 17 159/97 H 94 12/27/22 09:00 93 H 15 154/107 H 94 12/27/22 08:00 94 H 19 145/92 H 94 12/27/22 07:00 115 H 18 151/89 H 99 Nasal Cannula 2 12/27/22 08:00 Nasal Cannula 2 12/27/22 08:07 102 H 145/92 H 12/27/22 07:40 109 H 151/89 H 12/27/22 05:40 103 H 23 95 12/27/22 05:30 103 H 20 93 12/27/22 05:20 102 H 16 97 12/27/22 05:10 102 H 18 94 12/27/22 05:00 101 H 18 97 12/27/22 05:00 122/80 12/27/22 04:50 104 H 19 92 12/27/22 04:40 104 H 16 93 12/27/22 04:30 98 H 19 99 12/27/22 04:20 119 H 15 95 12/27/22 04:10 102 H 16 97 12/27/22 04:00 119 H 17 99 12/27/22 04:00 132/88 12/27/22 03:50 95 H 14 98 12/27/22 03:40 96 H 15 99 12/27/22 03:30 99 H 14 99 12/27/22 03:20 99 H 16 98 12/27/22 03:10 100 H 17 98 12/27/22 03:00 100 H 17 97 12/27/22 03:00 157/86 H 12/27/22 02:50 102 H 16 97 12/27/22 04:11 37.1 C 12/27/22 03:06 100 H 157/86 H 12/27/22 02:40 109 H 15 97 12/27/22 02:30 99 H 16 98 12/27/22 02:20 103 H 13 99 12/27/22 02:10 97 H 13 99 Intake & Output 12/25/22 12/26/22 12/27/22 12/28/22 06:59 06:59 06:59 06:59 Intake Total 5533.613 / 5533.613 3186.167 / 3186.167 776.666 / 776.666 Output Total 600 / 600 1800 / 1800 351 / 351 Balance 4933.613 / 4933.613 1386.167 / 1386.167 425.666 / 425.666 Weight 180 lb 5.41 oz 185 lb 6.54 oz Laboratory Results Laboratory Results - last 24 hr 12/26/22 12/26/22 12/27/22 17:37 20:15 04:43 WBC 13.66 H RBC 3.22 L Hgb 8.8 L Hct 29.1 L MCV 90.4 MCH 27.3 MCHC 30.2 L RDW Std Deviation 51.2 H RDW Coeff of [place] 15.3 H Plt Count 202 MPV 9.9 Immature Gran % (Auto) 0.7 Neut % (Auto) 93.5 Lymph % (Auto) 2.8 [place] % (Auto) 2.5 Eos % (Auto) 0.4 Baso % (Auto) 0.1 Neut # (Auto) 12.77 H Lymph # (Auto) 0.38 L [place] # (Auto) 0.34 Eos # (Auto) 0.05 Baso # (Auto) 0.02 Immature Gran # (Auto) 0.10 Dohle Bodies 1+ Sodium Potassium Chloride Carbon Dioxide Anion Gap BUN Creatinine Est Cr Clr Drug Dosing Est GFR ( Amer) Est GFR (Non-Af Amer) BUN/Creatinine Ratio Glucose POC Glucose 147 H 154 H Calcium Phosphorus Magnesium Total Bilirubin Direct Bilirubin AST ALT Alkaline Phosphatase Total Protein Albumin 12/27/22 12/27/22 04:43 13:06 WBC RBC Hgb Hct MCV MCH MCHC RDW Std Deviation RDW Coeff of [place] Plt Count MPV Immature Gran % (Auto) Neut % (Auto) Lymph % (Auto) [place] % (Auto) Eos % (Auto) Baso % (Auto) Neut # (Auto) Lymph # (Auto) [place] # (Auto) Eos # (Auto) Baso # (Auto) Immature Gran # (Auto) Dohle Bodies Sodium 141 Potassium 3.9 Chloride 108 H Carbon Dioxide 26 Anion Gap 7 BUN 34 H Creatinine 1.55 H D Est Cr Clr Drug Dosing 38.5 Est GFR ( Amer) 39.7 Est GFR (Non-Af Amer) 34.3 BUN/Creatinine Ratio 21.9 H Glucose 162 H POC Glucose 184 H Calcium 7.4 L Phosphorus 4.2 Magnesium 2.7 H Total Bilirubin 0.3 Direct Bilirubin 0.1 AST 39 ALT 66 H Alkaline Phosphatase 71 Total Protein 5.3 L Albumin 3.0 L Diagnostic Findings Telemetry noted: Sinus rhythm. Chart reviewed including GI progress note, ERCP procedure note, and critical care note. Labs reviewed and notable for anemia, stable renal function. Medications Administered Current Inpatient Medications Piperacillin Sod/Tazobactam (Sod 3.375 gm/ Dextrose) 115 mls @ 28.75 mls/hr IV Q8H [facility]; Protocol Stop: 01/04/23 17:59 Last Admin: 12/27/22 10:24 Dose: 28 mls/hr Insulin Aspart (Insulin Aspart Per Unit) 0 units SC ACHS [facility] Stop: 01/26/23 16:29 Levothyroxine Sodium (Levothyroxine Sodium 100 Mcg Tablet) 100 mcg PO DAILYBB [facility] Stop: 01/27/23 06:29 Metoprolol Succinate (Metoprolol Succ 50mg Ext Rel Tab) 100 mg PO BID [facility] Stop: 01/26/23 20:59 PG Care Time/CCT Total # of Minutes Spent Total Time Spent with Patient: Total time spent is greater than 50% in coordination of care (as documented) at patient's floor/unit and/or counseling patient: Coding Level of Care Code 80233 SUB INP/OBS CARE 3/50MIN Diagnoses Chronic heart failure with preserved ejection fraction I50.32 Elevated troponin R77.8 Hyperlipidemia E78.5 Severe sepsis A41.9; R65.20 Preop cardiovascular exam Z01.810 Paroxysmal atrial fibrillation I48.0
--- NOTE | 2022-12-27 14:15 | Hospitalist Progress Note ---
Date of Service December 27, 2022 Assessment & Plan (1) Sepsis: Plan: Severe sepsis 2/2 acute pyelonephritis versus acute cholecystitis Immunocompromised patient, on chronic steroids CTA/P: Pericholecystic minimal inflammatory change, small punctate of gas within the gallbladder, 3 mm stone at distal CBD suspicious for acute cholecystitis ERCP completed on 12/26. Choledocholithiasis found. No pus or signs of cholangitis seen. Biliary stent placed. Patient will need stent removal in 2 months. Can resume heparin drip today. Can resume Eliquis on 12/30. Urine culture growing Proteus. Reviewed sensitivities. Continue Zosyn for now. Will de-escalate soon. Was initially hypotensive. Was aggressively fluid resuscitated. Received stress dose of steroids. Received pressors. Now hemodynamically stable, off of pressors. Transfer out of the ICU Patient is clinically improved (2) Acute pyelonephritis due to bacteria: Plan: Patient with UTI symptoms and UA infected versus contaminated appearing Urine culture Proteus Blood culture pending Covered with Zosyn for cholecystitis as otherwise noted. Patient is feeling better with less urinary symptoms (3) Choledocholithiasis with acute cholecystitis: Plan: - Clinically does not exam with RUQ pain. Pt has not had any alexis colored stools, right upper quadrant pain, or pain with meals. She did have nausea/vomiting nonbloody/nonbilious this morning. No longer feels nauseous at time of bedside assessment CTA/P with pericholecystic inflammatory change, small punctate of gas within the gallbladder, 3 mm stone at distal CBD Right upper quadrant ultrasound shows no evidence of acute cholecystitis. Cholelithiasis seen. ERCP completed 12/26 with removal of stones. Stents placed in CBD and pancreatic duct. Will need to be removed in 2 months. Can be started back on heparin drip soon. Can be started back on Eliquis on 12/30. Surgery does not plan on laparoscopic cholecystectomy this admission due to her gram-negative sepsis from UTI. Follow-up with surgery in 1 week for elective cholecystectomy. (4) Myocardial injury: Plan: Admitting troponin 18.7, went up to 171 Suspect demand in setting of sepsis Echo showed no wall motion abnormalities Cardiology had cleared the patient for ERCP (5) (HFpEF) heart failure with preserved ejection fraction: Plan: TTE 11/07/2022: EF 65-70% with normal LV wall motion. Moderate concentric LVH. Mild to moderate annular calcification. Mild mitral stenosis. RVSP 30-40 mmHg. Aortic valve sclerosis mild without significant stenosis. Repeat TTE on 12/26 showed normal EF 60 to 65%. No regional wall motion abnormalities. Moderate concentric LVH. On admission, the patient was in severe sepsis. Lasix was held and the patient was given IV fluids. We will resume Lasix as sepsis has resolved and the patient is hemodynamically stable. She is starting to fill up with fluids with bibasilar crackles noted. She was resumed on her usual home dose of Lasix 20 mg p.o. every morning I wish to give her an extra dose of 40 mg IV Lasix now. (6) Atrial fibrillation with rapid ventricular response: Plan: Underwent electrical cardioversion 12/13/2022 for A-fib with RVR, converted to sinus rhythm Converted to heparin drip while pending ERCP/jordy. Took Eliquis around 9 AM on the day of admission. BB was initially held fo hypotension Patient can be started back on heparin drip now that 24 hours has passed since the ERCP. Eliquis can be resumed on 12/30 Beta-danae was resumed this morning Her heart rate is starting to go up. Will monitor now that she is back on beta-danae. (7) Anemia of chronic disease: (8) Chronic kidney disease, stage 3b: Plan: Baseline creatinine approximately 1.52.1 Admitting creatinine 1.5 Today creatinine is 1.5 Monitor BMP closely Avoid nephrotoxic medications Renally dose medications, trend (9) Diabetes mellitus with neuropathy: Plan: Semaglutide 0.25 mg weekly started 11/25/2022. DDx to include nausea/vomiting/diarrhea Neuropathy treatment with gabapentin 100-300 mg nightly titrated to severity of symptoms by patient SGLT2 inhibitor avoided due to recurrent UTIs with hospitalization Sliding scale insulin ordered (10) Hyperlipidemia: Plan: Last LDL 219. Continue PCSK9 as outpatient, patient has been intolerant of statins due to the recurrent severe myalgias (11) Hypertension: Plan: Blood pressure is creeping up now that sepsis is improving Resume Lasix, metoprolol Given extra dose of Lasix IV today (12) Hypothyroidism: Plan: Synthroid 100 mcg daily, continue Variable TFTs as outpatient, but patient has been clinically stable on 100 mcg Synthroid dose defer repeat in the setting of acute illness (13) Rheumatoid arthritis: (14) TIA involving vertebral artery: Plan DVT prophylaxis: Patient on Eliquis, converted to heparin due to start 2100 hrs mile while inpatient Diet: N.p.o. Additional fluids deferred due to pulmonary edema. Bolus as needed Disposition: ICU CODE STATUS: Full code Admission and Anticipated Discharge Date Admission Date: December 25, 2022 Subjective Patient is feeling slightly short of breath. She is now on oxygen. She does not use oxygen at home. Review of Systems Review of Systems: All systems reviewed & are unremarkable except as noted in Subjective Physical Exam Physical Exam: General: Awake, conversant Heart: S1, S2/regular rate and rhythm, no murmur rubs or gallops Lungs: Bibasilar crackles noted. Normal effort Abdomen: Soft/nontender/nondistended. No hepatosplenomegaly Extremities: No clubbing/cyanosis. No edema Behavior: Appropriate, cooperative Results & Data Results & Data Vital Signs (Past 12 Hours) Vital Signs Temp Pulse Resp BP Pulse Ox O2 Del Method O2 Flow Rate 12/27/22 12:00 99 H 28 H 171/95 H 94 12/27/22 11:00 99 H 17 168/99 H 95 12/27/22 08:00 114 H 12/27/22 10:00 97 H 17 159/97 H 94 12/27/22 09:00 93 H 15 154/107 H 94 12/27/22 08:00 94 H 19 145/92 H 94 12/27/22 07:00 115 H 18 151/89 H 99 Nasal Cannula 2 12/27/22 08:00 Nasal Cannula 2 12/27/22 08:07 102 H 145/92 H 12/27/22 07:40 109 H 151/89 H 12/27/22 05:40 103 H 23 95 12/27/22 05:30 103 H 20 93 12/27/22 05:20 102 H 16 97 12/27/22 05:10 102 H 18 94 12/27/22 05:00 101 H 18 97 12/27/22 05:00 122/80 12/27/22 04:50 104 H 19 92 12/27/22 04:40 104 H 16 93 12/27/22 04:30 98 H 19 99 12/27/22 04:20 119 H 15 95 12/27/22 04:10 102 H 16 97 12/27/22 04:00 119 H 17 99 12/27/22 04:00 132/88 12/27/22 03:50 95 H 14 98 12/27/22 03:40 96 H 15 99 12/27/22 03:30 99 H 14 99 12/27/22 03:20 99 H 16 98 12/27/22 03:10 100 H 17 98 12/27/22 03:00 100 H 17 97 12/27/22 03:00 157/86 H 12/27/22 02:50 102 H 16 97 12/27/22 04:11 37.1 C 12/27/22 03:06 100 H 157/86 H 12/27/22 02:40 109 H 15 97 12/27/22 02:30 99 H 16 98 12/27/22 02:20 103 H 13 99 12/27/22 02:10 97 H 13 99 Laboratory Results Abnormal lab results 12/26/22 12/26/22 12/27/22 Range/Units 17:37 20:15 04:43 WBC 13.66 H (4.8-10.8) K/ul RBC 3.22 L (4.20-5.40) M/uL Hgb 8.8 L (12.0-16.0) g/dl Hct 29.1 L (37.0-47.0) % MCHC 30.2 L (32.0-36.0) g/dL RDW Std Deviation 51.2 H (36.4-46.3) fL RDW Coeff of [place] 15.3 H (11.5-14.5) % Neut # (Auto) 12.77 H (1.40-6.50) K/uL Lymph # (Auto) 0.38 L (1.2-3.4) K/uL Chloride (98-107) mmol/L BUN (6-23) mg/dl Creatinine (0.6-1.2) mg/dl BUN/Creatinine Ratio (10-20) Glucose (70-99(Fasting)) mg/dl POC Glucose 147 H 154 H (70-99) mg/dl Calcium (8.5-10.1) mg/dl Magnesium (1.7-2.4) mg/dl ALT (7-52) U/L Total Protein (6.0-8.3) gm/dl Albumin (3.4-5.0) gm/dl 12/27/22 12/27/22 Range/Units 04:43 13:06 WBC (4.8-10.8) K/ul RBC (4.20-5.40) M/uL Hgb (12.0-16.0) g/dl Hct (37.0-47.0) % MCHC (32.0-36.0) g/dL RDW Std Deviation (36.4-46.3) fL RDW Coeff of [place] (11.5-14.5) % Neut # (Auto) (1.40-6.50) K/uL Lymph # (Auto) (1.2-3.4) K/uL Chloride 108 H (98-107) mmol/L BUN 34 H (6-23) mg/dl Creatinine 1.55 H D (0.6-1.2) mg/dl BUN/Creatinine Ratio 21.9 H (10-20) Glucose 162 H (70-99(Fasting)) mg/dl POC Glucose 184 H (70-99) mg/dl Calcium 7.4 L (8.5-10.1) mg/dl Magnesium 2.7 H (1.7-2.4) mg/dl ALT 66 H (7-52) U/L Total Protein 5.3 L (6.0-8.3) gm/dl Albumin 3.0 L (3.4-5.0) gm/dl Diagnostic Findings Endo Retro Cholangiopancreatogram 12/26/22 00:00 [place] ERCP biliary ductal CLINICAL HISTORY: EXPLORE DUCTS COMPARISON STUDY: CT of the abdomen and pelvis and right upper quadrant ultras ound December 25, 2022. FLUOROSCOPY TIME: 41 seconds. EXPOSURE DOSE: 27.3 mGy FLUOROSCOPIC IMAGES: 7 FINDINGS: Fluoroscopy was provided during ERCP. The common bile duct was cannulated. Filling defect within the distal common bile duct suggests a common bile duct calculus. Balloon sweep through the common bile duct was performed. Gallbladder is opacified. There is no biliary ductal dilatation. A common bile duct stent was placed. IMPRESSION: Fluoroscopy provided during ERCP with placement of a common bile duct stent. ACT 112: Negative or not required by law. Electronically signed by: Gus Ojeda M.D. 12/26/2022 5:51 PM PG Care Time/CCT Total # of Minutes Spent Total Time Spent: 55 Total Time Spent with Patient: I spent 55 minutes in the care of this patient. The time was spent in talking to the patient, nurse, consultants: Environmental Professional and radiology services manager, care management team, reviewing the chart, formulating plan and placing the orders accordingly. Coding Level of Care Code 74961 SUB INP/OBS CARE 3/50MIN Diagnoses Sepsis A41.9 Acute pyelonephritis due to bacteria N10; B96.89 Choledocholithiasis with acute cholecystitis K80.42 Myocardial injury I5A (HFpEF) heart failure with preserved ejection fraction I50.30 Atrial fibrillation with rapid ventricular response I48.91 Anemia of chronic disease D63.8 Chronic kidney disease, stage 3b N18.32 Diabetes mellitus with neuropathy E11.40 Hyperlipidemia E78.5 Hypertension I10 Hypertension type: essential hypertension Hypothyroidism E03.9 Hypothyroidism type: unspecified Rheumatoid arthritis M06.9 Rheumatoid arthritis location: multiple sites Rheumatoid factor presence: unspecified presence TIA involving vertebral artery G45.0 (11) Hypertension Hypertension type: essential hypertension Qualified Code(s): I10 - Essential (primary) hypertension (12) Hypothyroidism Hypothyroidism type: unspecified Qualified Code(s): E03.9 - Hypothyroidism, unspecified (13) Rheumatoid arthritis Rheumatoid arthritis location: multiple sites Rheumatoid factor presence: unspecified presence Qualified Code(s): M06.9 - Rheumatoid arthritis, unspecified
[2022-12-27] MEDS ORDERED: Heparin IV Adult Wt-Based Standard *NO* Bolus Protocol IV STA (14:19)
[2022-12-27] MEDS: HEPARIN SODIUM/DEXTROSE 25,000 UNITS/500 ML BAG IV SCH (15:01)
[2022-12-27 15:42] LABS: Partial Thromboplastin Time 27.1 Seconds (21.0-31.0)
[2022-12-27] MEDS: INSULIN ASPART PER UNIT CHARGE SC SCH ×2 (17:21→20:20)
[2022-12-27] MEDS ORDERED: dilTIAZem HCl 5 MG/ML 5 ML VIAL IV STA ×2 (18:17→18:46)
[2022-12-27] MEDS: METOPROLOL SUCC 50MG EXT REL TAB PO SCH (19:47)
[2022-12-27 22:08] LABS: Partial Thromboplastin Ratio 1.6
--- NOTE | 2022-12-27 23:27 | Electrocardiogram Report ---
Test Reason : Blood Pressure : / mmHG Vent. Rate : 109 BPM Atrial Rate : 109 BPM P-R Int : 154 ms QRS Dur : 062 ms QT Int : 312 ms P-R-T Axes : 036 046 086 degrees QTc Int : 420 ms Poor data quality, interpretation may be adversely affected Sinus tachycardia with Premature supraventricular complexes When compared with ECG of 13-DEC-2022 07:33, No significant change Confirmed by Rusty Pedraza ([id number]) on 12/27/2022 11:26:58 PM Referred By: Confirmed By:Rusty Pedraza
--- NOTE | 2022-12-27 23:39 | Electrocardiogram Report ---
Test Reason : Blood Pressure : / mmHG Vent. Rate : 102 BPM Atrial Rate : 102 BPM P-R Int : 164 ms QRS Dur : 070 ms QT Int : 356 ms P-R-T Axes : -01 040 001 degrees QTc Int : 463 ms Sinus tachycardia Otherwise normal ECG When compared with ECG of 25-DEC-2022 09:37, Premature supraventricular complexes are no longer Present Confirmed by Rusty Pedraza ([id number]) on 12/27/2022 11:39:19 PM Referred By: REFERRED SELF Confirmed By:Rusty Pedraza
[2022-12-28] MEDS ORDERED: ONDANSETRON INJ 2 MG/ML 2 ML VIAL IV ONE (00:16)
--- NOTE | 2022-12-28 00:18 | Hospitalist Consultation ---
Date of Consultation December 28, 2022 Assessment & Plan (1) Radiating chest pain: History of Present Illness Attending Physician: Yaritza Hunter MD Allergies Allergy/AdvReac Type Severity Reaction Status Date / Time tetracycline Allergy Severe RASH ON Verified 12/25/22 14:59 FACE Zmlgqwy-RJD-KuP Reductase AdvReac Intermediate LE edema Verified 12/25/22 14:59 Inhibitor [Ddbsvpm-Yjc-Cuq Reductase Inhibitor] oxycodone AdvReac Mild Drowsy Verified 12/26/22 07:36 Home Medications Medication Instructions Recorded Confirmed Type cholecalciferol (vitamin D3) 25 1,000 unit PO QAM 10/26/18 12/25/22 History mcg (1,000 unit) capsule (Vitamin D3) magnesium 250 mg tablet 250 mg PO QAM 10/26/18 12/25/22 History acetaminophen 500 mg tablet 1,000 mg PO Q6H PRN Pain 12/24/18 12/25/22 History (Tylenol Extra Strength) cyclobenzaprine 10 mg tablet 10 mg PO HS 04/21/21 12/25/22 History albuterol sulfate 90 mcg/actuation 2 puff inhalation QID PRN 04/02/22 12/25/22 Rx aerosol inhaler (Ventolin HFA) shortness of breath or wheezing #8.5 grams levothyroxine 100 mcg tablet 100 mcg PO QAM #90 tabs 09/16/22 12/25/22 Rx prednisone 5 mg tablet 10 mg PO QPM 11/13/22 12/25/22 History semaglutide 0.25 mg or 0.5 mg (2 0.25 mg (0.2 mL) subcut ONCE #1.5 11/25/22 12/25/22 Rx mg/1.5 mL) subcutaneous pen mL injector (Ozempic) apixaban 5 mg tablet (Eliquis) 5 mg PO BID #180 tabs 12/02/22 12/25/22 Rx L.acidop,casei,lactis,rham-B.lact,reyes 1 cap PO HS 12/12/22 12/25/22 History 625 mg (10 billion cell) capsule (Advanced Probiotic) gabapentin 100 mg capsule 100 - 300 mg PO HS 12/12/22 12/25/22 History metoprolol succinate 100 mg 100 mg PO BID #60 tabs 12/12/22 12/25/22 Rx tablet,extended release 24 hr omeprazole 40 mg capsule,delayed 40 mg PO QAM 12/12/22 12/25/22 History release furosemide 20 mg tablet (Lasix) 20 mg PO DAILY PRN edema of legs 12/13/22 12/25/22 Rx #30 tabs alirocumab 75 mg/mL subcutaneous 75 mg subcut Q14D #2 mL 12/23/22 12/25/22 Rx pen injector (Praluent Pen) Patient History Medical History (Updated 12/28/22 @ 00:17 by Drew Welch MD) (HFpEF) heart failure with preserved ejection fraction Acute congestive heart failure 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--per pt due to clot, cleared from neurology--follows with PCP--has slight weakness on left side Acute on chronic kidney failure Acute respiratory failure with hypoxia AISHWARYA (acute kidney injury) Anemia of chronic disease Anxiety Bilateral leg edema Chronic kidney disease, stage 3b Diabetes mellitus type II, controlled Exertional chest pain GERD (gastroesophageal reflux disease) History of COVID-19 10/04/21--hospitalized @ [facility] for 9 days--no issues now History of MRSA infection lumbar surgical incision s/p vanco/ceftriaxone/bactrim per 04/2019 [facility] discharge summary History of recent blood transfusion 09/18/22 @ [facility] Hospital discharge follow-up Hyperlipidemia Hypertension Hypothyroidism Immunosuppression due to drug therapy Lumbar radiculopathy Paroxysmal atrial fibrillation Recurrent UTI Rheumatoid arthritis Sepsis recent hospitalization 09/17/22 @ [facility] due to UTI Spinal stenosis Stenosis of left internal carotid artery 50-69% stenosis of left ICA per 04/2021 neck CTA Stenosis of left vertebral artery Approximately 90% stenosis within V4 segment of left vertebral artery per 04/21/2021 neck CTA Surgical History History of x2 History of hysterectomy total History of lumbar surgery Lumbar Spine Wound Revision 05/2019 Dr. Mane @ [facility] History of total left knee replacement Hx of tonsillectomy Status post laminectomy with spinal fusion L2-L5 laminectomy/fusion: 12/24/18: Grade view 1, MAC#3, ETT 7.0 Family History Father Diabetes Lung cancer Cancer Hypertension Mother Malignant neoplasm of brain Diabetes Brain tumor Cancer Hypertension Aunt Breast cancer Sister Hypertension Other No family history of adverse response to anesthesia Denies family history of Ovarian cancer Prostate cancer Myocardial infarction Colorectal cancer Social History Smoking Status: Never smoker Second Hand Exposure: No; Hx Alcohol Use: Yes Alcohol type: wine Alcohol Intake Frequency: 2-4 x/Month Hx Substance Use: No Preferred Language: Nauruan Communication Ability: Effective Visual Impairment: Limited Hearing Ability: Normal 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 Feels Safe at Home: Yes Childhood Exposure to Second-Hand Smoke: Yes caffeine: Yes Dental Care, Regularly: Yes Physical Activity Frequency: 5-6 Times per Week Physical Activity Frequency Comment: gym Seatbelt Use: always Sunscreen Use: Yes Do you think of yourself as: straight/heterosexual Assistive Devices: Cane and Walker Review of Systems Review of Systems: All systems reviewed & are unremarkable except as noted in HPI & below Physical Exam Physical Exam: General: No acute distress HEENT: PERRLA. Normal conjunctiva, anicteric sclera. Oropharynx normal. Respiratory: Normal respiratory effort, CTABL. Cardiovascular: RRR without murmurs, gallops, or rubs. No edema. GI: Soft abdomen with normal bowel sounds heard on auscultation. Nontender x4 quadrants Neuro: Alert and oriented x3. Results & Data Results & Data Vital Signs (Past 12 Hours) Vital Signs Temp Pulse Resp BP Pulse Ox O2 Del Method O2 Flow Rate 12/27/22 23:10 112 H 42 H 94 12/27/22 23:00 116 H 22 95 12/27/22 23:00 128/83 12/27/22 22:50 114 H 27 H 96 12/27/22 22:40 122 H 21 95 12/27/22 22:30 120 H 38 H 95 12/27/22 22:20 115 H 28 H 95 12/27/22 22:10 121 H 34 H 95 12/27/22 22:00 122 H 24 94 12/27/22 22:00 141/108 H 12/27/22 21:50 140 H 19 92 03 21:40 115 H 22 95 12/27/22 21:30 126 H 22 94 03 21:20 133 H 19 94 12/27/22 21:10 130 H 15 93 12/27/22 22:56 112 H 141/108 H 12/27/22 22:20 Nasal Cannula 2 12/27/22 21:00 134 H 21 95 12/27/22 21:00 156/112 H 12/27/22 20:50 147 H 26 H 94 12/27/22 20:40 140 H 21 94 12/27/22 20:30 121 H 22 92 12/27/22 20:20 121 H 23 94 12/27/22 20:10 125 H 22 94 12/27/22 20:01 194/124 H 12/27/22 20:01 108 H 21 94 12/27/22 20:00 117 H 20 94 12/27/22 19:52 107 H 19 93 12/27/22 19:52 177/111 H 12/27/22 19:50 121 H 24 93 12/27/22 19:40 110 H 24 93 12/27/22 19:34 202/111 H 12/27/22 19:34 115 H 24 92 12/27/22 19:33 110 H 19 93 12/27/22 19:20 90 24 92 12/27/22 19:10 125 H 27 H 92 12/27/22 19:00 127 H 29 H 92 12/27/22 18:54 142/119 H 12/27/22 18:54 121 H 26 H 90 12/27/22 18:50 129 H 23 92 12/27/22 18:40 129 H 26 H 93 12/27/22 18:39 139 H 23 94 03 18:39 140/103 H 12/27/22 18:30 135 H 21 90 12/27/22 18:20 140 H 20 95 12/27/22 18:10 139 H 23 93 12/27/22 18:00 123 H 19 12/27/22 17:50 122 H 20 12/27/22 17:40 107 H 21 12/27/22 17:30 156 H 20 12/27/22 17:23 114 H 14 12/27/22 17:10 102 H 20 12/27/22 17:02 101 H 25 H 12/27/22 17:00 105 H 20 12/27/22 16:51 103 H 22 12/27/22 19:52 36.9 C 12/27/22 16:40 107 H 28 H 12/27/22 16:20 97 H 22 95 12/27/22 16:10 98 H 14 94 12/27/22 16:00 107 H 18 94 12/27/22 15:50 98 H 23 94 12/27/22 15:40 111 H 21 94 12/27/22 15:30 97 H 19 94 12/27/22 15:20 98 H 17 93 12/27/22 15:10 97 H 21 136/72 94 12/27/22 16:47 Nasal Cannula 2 12/27/22 14:00 100 H 21 179/111 H 94 12/27/22 13:00 95 H 19 171/115 H 94
[2022-12-28] MEDS: PIPERACILLIN/TAZOBACTAM 3.375 GM in DEXTROSE 5% 100 ML IV SCH ×3 (01:29→17:31)
[2022-12-28] MEDS ORDERED: guaiFENesin/DEXTROM SYRUP 100MG/10MG 5ML UDC PO PRN (01:43)
[2022-12-28] MEDS: METOPROLOL TARTRATE 1 MG/ML VIAL IV PRN ×3 (02:09→02:30)
[2022-12-28] MEDS ORDERED: METOPROLOL TARTRATE 25 MG TAB PO STA (02:44)
[2022-12-28] MEDS: LEVOTHYROXINE SODIUM 100 MCG TABLET PO SCH (05:36)
[2022-12-28] MEDS ORDERED: LEVOTHYROXINE SODIUM 100 MCG TABLET PO SCH (06:30)
[2022-12-28 06:49] LABS: Partial Thromboplastin Ratio 2.2
[2022-12-28 07:02] LABS: Partial Thromboplastin Time 59.2 Seconds (21.0-31.0)
[2022-12-28] MEDS ORDERED: dilTIAZem HCl 5 MG/ML 5 ML VIAL IV STA (07:15)
[2022-12-28] MEDS ORDERED: STAT IV Infusion **Titration per Protocol STA (07:15)
[2022-12-28] MEDS: dilTIAZem HCL 125 MG in DEXTROSE 5% 100 ML IV SCH ×2 (07:48→17:38)
[2022-12-28] MEDS: INSULIN ASPART PER UNIT CHARGE SC SCH ×4 (08:01→19:54)
[2022-12-28] MEDS ORDERED: FUROSEMIDE 40 MG/4 ML VIAL IV ONE (09:56)
[2022-12-28] MEDS: HEPARIN SODIUM/DEXTROSE 25,000 UNITS/500 ML BAG IV SCH (10:00)
[2022-12-28] MEDS: METOPROLOL SUCC 50MG EXT REL TAB PO SCH ×2 (10:01→19:54)
--- NOTE | 2022-12-28 10:02 | Cardiology Progress Note ---
Date of Service December 28, 2022 Assessment & Plan (1) Chronic heart failure with preserved ejection fraction: (2) Elevated troponin: (3) Hyperlipidemia: (4) Severe sepsis: (5) Preop cardiovascular exam: (6) Paroxysmal atrial fibrillation: Plan ASSESSMENT/PLAN: 1. Chronic heart failure with preserved EF: She is hypervolemic. She has some expiratory wheezing. I think we should try more aggressive diuresis today. No BMP this morning but will order 1 to monitor her renal function and electrolytes. She may require some potassium supplementation. 2. Paroxysmal atrial fibrillation: She returned to atrial fibrillation yesterday. She had some rapid ventricular rates. Currently on diltiazem infusion. I think we can discontinue her heparin infusion no additional invasive procedures are planned. She could return to her usual dose Eliquis. Will see if she converts on her own if not, we can try flecainide and an additional cardioversion if necessary. 3. Sepsis: As per critical care team and other providers. 4. Elevated troponin: Likely due to sepsis requiring pressors. 5. Dyslipidemia: She is on PCSK9 inhibitor as an outpatient. 6. Anemia: As per primary service. Admission and Anticipated Discharge Date Admission Date: December 25, 2022 Subjective This morning the patient claimed to be tired. She did not sleep well last night. She is aware of some palpitations and has some breathing difficulty. She also notices expiratory wheezing. No significant abdominal pain. Review of Systems Review of Systems: Per HPI Physical Exam Physical Exam: Gen.: No acute distress. Alert. HEENT: Anicteric sclera. Neck: Thick neck. Cardiac: No ventricular heave. irregular. Normal S1-S2. No murmurs, rubs, or gallops. Pulmonary: Bilateral wheezing. No rales. Abdomen: Soft Extremities: Mild lower extremity edema No cyanosis. Results & Data Vital Signs (Past 12 Hours) Vital Signs Temp Pulse Resp BP Pulse Ox O2 Del Method O2 Flow Rate 12/28/22 08:01 151/110 H 12/28/22 08:01 93 H 25 H 90 Nasal Cannula 3 12/28/22 08:00 107 H 25 H 89 L 12/28/22 07:54 117/75 12/28/22 07:54 97 H 27 H 89 L 12/28/22 07:16 127/89 12/28/22 07:16 130 H 26 H 94 12/28/22 07:01 126 H 26 H 95 12/28/22 07:01 146/113 H 12/28/22 07:00 135 H 25 H 90 12/28/22 08:00 37.3 C 12/28/22 08:00 Nasal Cannula 3 12/28/22 06:20 120 H 27 H 87 L 12/28/22 06:10 126 H 25 H 95 12/28/22 06:00 119 H 26 H 91 12/28/22 06:00 174/112 H 12/28/22 05:50 150 H 28 H 85 L 12/28/22 05:40 130 H 25 H 90 12/28/22 05:30 114 H 23 94 12/28/22 05:20 120 H 24 94 12/28/22 05:10 130 H 26 H 92 12/28/22 05:00 121 H 24 92 12/28/22 05:00 146/105 H 12/28/22 04:50 132 H 22 91 12/28/22 04:40 128 H 25 H 93 12/28/22 04:30 127 H 22 91 12/28/22 04:20 122 H 25 H 87 L 12/28/22 04:10 112 H 24 92 12/28/22 04:00 116 H 24 92 12/28/22 04:00 146/80 H 12/28/22 03:50 128 H 25 H 91 12/28/22 03:40 121 H 27 H 86 L 12/28/22 03:30 142 H 24 89 L 12/28/22 03:20 117 H 22 90 12/28/22 03:10 155 H 23 90 12/28/22 03:00 126 H 22 93 12/28/22 03:00 146/103 H 12/28/22 02:50 120 H 21 91 12/28/22 02:40 118 H 24 91 12/28/22 02:38 141/94 H 12/28/22 02:38 123 H 18 87 L 12/28/22 02:30 107 H 31 H 92 12/28/22 02:26 138/106 H 12/28/22 02:26 120 H 23 86 L 12/28/22 02:20 127 H 23 87 L 12/28/22 02:20 143/85 H 12/28/22 02:10 120 H 22 87 L 12/28/22 02:00 114 H 22 85 L 12/28/22 02:00 131/102 H 12/28/22 03:04 37 C 12/28/22 02:30 124 H 138/106 H 12/28/22 02:23 130 H 143/85 H 12/28/22 02:09 125 H 133/92 12/28/22 01:50 122 H 21 87 L 12/28/22 01:40 117 H 23 94 12/28/22 01:30 127 H 22 94 12/28/22 01:20 118 H 20 90 12/28/22 01:10 112 H 21 93 12/28/22 01:00 125 H 22 90 12/28/22 01:00 133/92 12/28/22 00:50 118 H 23 90 12/28/22 00:40 115 H 22 91 12/28/22 00:30 132 H 20 87 L 12/28/22 00:20 121 H 21 96 12/28/22 00:10 123 H 21 95 12/28/22 00:00 117 H 24 91 12/28/22 00:00 139/87 12/27/22 23:50 119 H 22 96 12/27/22 23:40 115 H 23 96 12/27/22 23:30 108 H 21 95 12/27/22 23:23 136 H 18 92 12/28/22 01:30 124 H 12/27/22 23:10 112 H 42 H 94 12/27/22 23:00 116 H 22 95 12/27/22 23:00 128/83 12/27/22 22:50 114 H 27 H 96 12/27/22 22:40 122 H 21 95 12/27/22 22:30 120 H 38 H 95 12/27/22 22:20 115 H 28 H 95 12/27/22 22:10 121 H 34 H 95 12/27/22 22:00 122 H 24 94 12/27/22 22:00 141/108 H 12/27/22 22:56 112 H 141/108 H 12/27/22 22:20 Nasal Cannula 2 Diagnostic Findings Abnormal Lab Results 12/27/22 12/27/22 12/27/22 13:06 14:49 16:32 APTT 27.1 PTT Ratio 1.0 POC Glucose 184 H 244 H 12/27/22 12/27/22 12/28/22 20:14 21:13 05:25 APTT 45.0 H 59.2 H* PTT Ratio 1.6 2.2 POC Glucose 254 H 12/28/22 07:56 APTT PTT Ratio POC Glucose 134 H PG Care Time/CCT Total # of Minutes Spent Total Time Spent with Patient: Total time spent is greater than 50% in coordination of care (as documented) at patient's floor/unit and/or counseling patient: Coding Level of Care Code 34902 SUB INP/OBS CARE 2/35MIN Diagnoses Chronic heart failure with preserved ejection fraction I50.32 Elevated troponin R77.8 Hyperlipidemia E78.5 Severe sepsis A41.9; R65.20 Preop cardiovascular exam Z01.810 Paroxysmal atrial fibrillation I48.0
[2022-12-28 10:49] LABS: Calcium 8.3 mg/dl (8.5-10.1); Potassium 3.3 mmol/L (3.5-5.1)
[2022-12-28 10:55] LABS: BUN Creatinine Ratio 20.9 (10-20); Creatinine Clr Calc Pharmacy 38.2 ml/min; Est GFR (African American) 40.4 ml/min; Est GFR (Non-African American) 34.8 ml/min
--- NOTE | 2022-12-28 12:35 | Hospitalist Progress Note ---
Date of Service December 28, 2022 Assessment & Plan (1) Sepsis: Plan: Severe sepsis 2/2 acute pyelonephritis versus acute cholecystitis Immunocompromised patient, on chronic steroids CTA/P: Pericholecystic minimal inflammatory change, small punctate of gas within the gallbladder, 3 mm stone at distal CBD suspicious for acute cholecystitis ERCP completed on 12/26. Choledocholithiasis found. No pus or signs of cholangitis seen. Biliary stent placed. Patient will need stent removal in 2 months. Back on heparin drip. Can resume Eliquis on 12/30 per GI. Urine culture growing Proteus. Reviewed sensitivities. Continue Zosyn for now as it covers both GI and source. Will de-escalate soon. Was initially hypotensive. Was aggressively fluid resuscitated. Received stress dose of steroids. Received pressors. Now hemodynamically stable, off of pressors. Patient is clinically improved (2) Acute pyelonephritis due to bacteria: Plan: Patient with UTI symptoms Urine culture Proteus Blood culture negative Covered with Zosyn for cholecystitis as otherwise noted. Patient is feeling better with less urinary symptoms (3) Choledocholithiasis with acute cholecystitis: Plan: - Clinically does not exam with RUQ pain. Pt has not had any alexis colored stools, right upper quadrant pain, or pain with meals. She did have nausea/vomiting nonbloody/nonbilious this morning. No longer feels nauseous at time of bedside assessment CTA/P with pericholecystic inflammatory change, small punctate of gas within the gallbladder, 3 mm stone at distal CBD Right upper quadrant ultrasound shows no evidence of acute cholecystitis. Cholelithiasis seen. ERCP completed 12/26 with removal of stones. Stents placed in CBD and pancreatic duct. Will need to be removed in 2 months. Back on heparin drip.. Can be started back on Eliquis on 12/30. Surgery does not plan on laparoscopic cholecystectomy this admission due to her gram-negative sepsis from UTI. Follow-up with surgery in 1 week for elective cholecystectomy. (4) Myocardial injury: Plan: Admitting troponin 18.7, went up to 171 Suspect demand in setting of sepsis Echo showed no wall motion abnormalities Cardiology had cleared the patient for ERCP (5) (HFpEF) heart failure with preserved ejection fraction: Plan: TTE 11/07/2022: EF 65-70% with normal LV wall motion. Moderate concentric LVH. Mild to moderate annular calcification. Mild mitral stenosis. RVSP 30-40 mmHg. Aortic valve sclerosis mild without significant stenosis. Repeat TTE on 12/26 showed normal EF 60 to 65%. No regional wall motion abnormalities. Moderate concentric LVH. On admission, the patient was in severe sepsis. Lasix was held and the patient was given IV fluids. Lasix has been resumed as sepsis has resolved and the patient is hemodynamically stable. She appears to be slightly volume overloaded She was given IV 40 mg of Lasix today She is also on her p.o. 20 mg daily (6) Atrial fibrillation with rapid ventricular response: Plan: Underwent electrical cardioversion 12/13/2022 for A-fib with RVR, converted to sinus rhythm BB was initially held fo hypotension. Now back on beta-danae Patient can be started back on heparin drip after ERCP. Eliquis can be resumed on 12/30, per GI Patient has had uncontrolled A-fib overnight. On Cardizem drip currently. Cardiology on board, planning on starting flecainide (7) Anemia of chronic disease: (8) Chronic kidney disease, stage 3b: Plan: Baseline creatinine approximately 1.52.1 Admitting creatinine 1.5 Today creatinine is 1.5 Monitor BMP closely Avoid nephrotoxic medications Renally dose medications, trend (9) Diabetes mellitus with neuropathy: Plan: Semaglutide 0.25 mg weekly started 11/25/2022. DDx to include nausea/vomiting/diarrhea Neuropathy treatment with gabapentin 100-300 mg nightly titrated to severity of symptoms by patient SGLT2 inhibitor avoided due to recurrent UTIs with hospitalization Sliding scale insulin ordered (10) Hyperlipidemia: Plan: Last LDL 219. Continue PCSK9 as outpatient, patient has been intolerant of statins due to th e recurrent severe myalgias (11) Hypertension: Plan: Blood pressure is creeping up now that sepsis is improving Resumed Lasix, metoprolol Given extra dose of Lasix IV today (12) Hypothyroidism: Plan: Synthroid 100 mcg daily, continue Variable TFTs as outpatient, but patient has been clinically stable on 100 mcg Synthroid dose defer repeat in the setting of acute illness (13) Rheumatoid arthritis: (14) TIA involving vertebral artery: Plan DVT prophylaxis: Now on heparin drip CODE STATUS: Full code Admission and Anticipated Discharge Date Admission Date: December 25, 2022 Subjective Patient does not have any complaints today. She denies any shortness of breath or palpitations. However per nurse, she has been in rapid A-fib throughout the night requiring multiple doses of Cardizem and metoprolol. No chest pain. No nausea or vomiting. Review of Systems Review of Systems: All systems reviewed & are unremarkable except as noted in Subjective Physical Exam Physical Exam: General: Awake, conversant Heart: S1, S2/regular rate and rhythm, no murmur rubs or gallops Lungs: Bibasilar crackles noted. Normal effort Abdomen: Soft/nontender/nondistended. No hepatosplenomegaly Extremities: No clubbing/cyanosis. Trace bilateral edema Behavior: Appropriate, cooperative Results & Data Results & Data Vital Signs (Past 12 Hours) Vital Signs Temp Pulse Resp BP Pulse Ox O2 Del Method O2 Flow Rate 12/28/22 08:01 151/110 H 12/28/22 08:01 93 H 25 H 90 Nasal Cannula 3 12/28/22 08:00 107 H 25 H 89 L 12/28/22 07:54 117/75 12/28/22 07:54 97 H 27 H 89 L 12/28/22 07:16 127/89 12/28/22 07:16 130 H 26 H 94 12/28/22 07:01 126 H 26 H 95 12/28/22 07:01 146/113 H 12/28/22 07:00 135 H 25 H 90 12/28/22 08:00 37.3 C 12/28/22 08:00 Nasal Cannula 3 12/28/22 06:20 120 H 27 H 87 L 12/28/22 06:10 126 H 25 H 95 12/28/22 06:00 119 H 26 H 91 12/28/22 06:00 174/112 H 12/28/22 05:50 150 H 28 H 85 L 12/28/22 05:40 130 H 25 H 90 12/28/22 05:30 114 H 23 94 12/28/22 05:20 120 H 24 94 12/28/22 05:10 130 H 26 H 92 12/28/22 05:00 121 H 24 92 12/28/22 05:00 146/105 H 12/28/22 04:50 132 H 22 91 12/28/22 04:40 128 H 25 H 93 12/28/22 04:30 127 H 22 91 12/28/22 04:20 122 H 25 H 87 L 12/28/22 04:10 112 H 24 92 12/28/22 04:00 116 H 24 92 12/28/22 04:00 146/80 H 12/28/22 03:50 128 H 25 H 91 12/28/22 03:40 121 H 27 H 86 L 12/28/22 03:30 142 H 24 89 L 12/28/22 03:20 117 H 22 90 12/28/22 03:10 155 H 23 90 12/28/22 03:00 126 H 22 93 12/28/22 03:00 146/103 H 12/28/22 02:50 120 H 21 91 12/28/22 02:40 118 H 24 91 12/28/22 02:38 141/94 H 12/28/22 02:38 123 H 18 87 L 12/28/22 02:30 107 H 31 H 92 12/28/22 02:26 138/106 H 12/28/22 02:26 120 H 23 86 L 12/28/22 02:20 127 H 23 87 L 12/28/22 02:20 143/85 H 12/28/22 02:10 120 H 22 87 L 12/28/22 02:00 114 H 22 85 L 12/28/22 02:00 131/102 H 12/28/22 03:04 37 C 12/28/22 02:30 124 H 138/106 H 12/28/22 02:23 130 H 143/85 H 12/28/22 02:09 125 H 133/92 12/28/22 01:50 122 H 21 87 L 12/28/22 01:40 117 H 23 94 12/28/22 01:30 127 H 22 94 12/28/22 01:20 118 H 20 90 12/28/22 01:10 112 H 21 93 12/28/22 01:00 125 H 22 90 12/28/22 01:00 133/92 12/28/22 00:50 118 H 23 90 12/28/22 00:40 115 H 22 91 12/28/22 00:30 132 H 20 87 L 12/28/22 01:30 124 H PG Care Time/CCT Total # of Minutes Spent Total Time Spent with Patient: Total time spent is greater than 50% in coordination of care (as documented) at patient's floor/unit and/or counseling patient: Coding Level of Care Code 89425 SUB INP/OBS CARE MIN Diagnoses Sepsis A41.9 Acute pyelonephritis due to bacteria N10; B96.89 Choledocholithiasis with acute cholecystitis K80.42 Myocardial injury I5A (HFpEF) heart failure with preserved ejection fraction I50.30 Atrial fibrillation with rapid ventricular response I48.91 Anemia of chronic disease D63.8 Chronic kidney disease, stage 3b N18.32 Diabetes mellitus with neuropathy E11.40 Hyperlipidemia E78.5 Hypertension I10 Hypertension type: essential hypertension Hypothyroidism E03.9 Hypothyroidism type: unspecified Rheumatoid arthritis M06.9 Rheumatoid arthritis location: multiple sites Rheumatoid factor presence: unspecified presence TIA involving vertebral artery G45.0 (11) Hypertension Hypertension type: essential hypertension Qualified Code(s): I10 - Essential (primary) hypertension (12) Hypothyroidism Hypothyroidism type: unspecified Qualified Code(s): E03.9 - Hypothyroidism, unspecified (13) Rheumatoid arthritis Rheumatoid arthritis location: multiple sites Rheumatoid factor presence: unspecified presence Qualified Code(s): M06.9 - Rheumatoid arthritis, unspecified
[2022-12-29] MEDS: PIPERACILLIN/TAZOBACTAM 3.375 GM in DEXTROSE 5% 100 ML IV SCH ×3 (02:03→17:45)
[2022-12-29] MEDS: dilTIAZem HCL 125 MG in DEXTROSE 5% 100 ML IV SCH ×2 (02:03→17:59)
[2022-12-29] MEDS: LEVOTHYROXINE SODIUM 100 MCG TABLET PO SCH (05:28)
[2022-12-29] MEDS: HEPARIN SODIUM/DEXTROSE 25,000 UNITS/500 ML BAG IV SCH (05:28)
[2022-12-29 06:50] LABS: Hematocrit (blood only) 26.9 % (37.0-47.0); Hemoglobin 8.1 g/dl (12.0-16.0); Mean Corpuscular Hemoglobin 27.6 pg (25.0-34.0); Mean Corpuscular Hgb Conc 30.1 g/dL (32.0-36.0); Mean Corpuscular Volume 91.5 fL (80.0-100.0); Mean Platelet Volume 10.3 fL (9.4-12.4); Platelet Count 176 K/uL (130-400); RDW Coefficient of Variation 15.4 % (11.5-14.5); RDW Standard Deviation 51.6 fL (36.4-46.3); Red Blood Count 2.94 M/uL (4.20-5.40)
[2022-12-29 07:06] LABS: BUN Creatinine Ratio 21.6 (10-20); Calcium 8.1 mg/dl (8.5-10.1); Creatinine Clr Calc Pharmacy 43.1 ml/min; Est GFR (African American) 47.4 ml/min; Est GFR (Non-African American) 40.9 ml/min; Potassium 2.9 mmol/L (3.5-5.1)
[2022-12-29 07:21] LABS: Partial Thromboplastin Ratio 2.5
[2022-12-29] MEDS: METOPROLOL SUCC 50MG EXT REL TAB PO SCH ×2 (08:00→20:08)
[2022-12-29] MEDS: INSULIN ASPART PER UNIT CHARGE SC SCH ×4 (08:04→20:07)
--- NOTE | 2022-12-29 09:21 | Cardiology Progress Note ---
Date of Service December 29, 2022 Assessment & Plan (1) Chronic heart failure with preserved ejection fraction: (2) Elevated troponin: (3) Hyperlipidemia: (4) Severe sepsis: (5) Preop cardiovascular exam: (6) Paroxysmal atrial fibrillation: Plan ASSESSMENT/PLAN: 1. Chronic heart failure with preserved EF: She seems to be approaching euvolemia. She did not describe significant breathing difficulty. Edema has improved. Think we can try 1 more dose of intravenous Lasix today based on a poor response yesterday. I will wait to order the Lasix until potassium has been repleted. 2. Paroxysmal atrial fibrillation: She has persistent atrial fibrillation. Minimal symptoms currently. She was discharged from the hospital last time she was on diltiazem and reported symptoms and higher heart rates at home. Unfortunately, she did not maintain sinus rhythm after cardioversion. She has several additional procedures required for her gallbladder in the near future. I think she is certainly at high risk for recurrent atrial fibrillation even if we were to cardiovert her again. I think a good option in the short term would be amiodarone. Flecainide would be a good option but she seems to have an element of left ventricular hypertrophy which places her at greater risk of proarrhythmia with a class 1 C agent. Will start amiodarone once her electrolytes have been repleted. Can slowly wean the diltiazem. If she does not return to sinus rhythm spontaneously we can consider cardioversion prior to discharge. Continue systemic heparinization. Consider return to oral apixaban on 12/30/2022 (recommendation of GI) 3. Sepsis: Resolved 4. Elevated troponin: Likely due to sepsis requiring pressors. No evidence of acute coronary syndrome. 5. Dyslipidemia: She is on PCSK9 inhibitor as an outpatient. 6. Anemia: Slowly trending downward. No symptoms at rest. Admission and Anticipated Discharge Date Admission Date: December 25, 2022 Subjective This morning patient is feeling well. She is anxious for discharge. No abdominal complaints. She claims to have been ambulatory around the room to some degree without dizziness or significant dyspnea. Wheezing from yesterday peers to have improved. Review of Systems Review of Systems: Per HPI Physical Exam Physical Exam: Gen.: No acute distress. Alert. HEENT: Anicteric sclera. Neck: Thick neck. Cardiac: No ventricular heave. irregular. Normal S1-S2. No murmurs, rubs, or gallops. Pulmonary: Bilateral expiratory wheezing. No rales. Extremities: No edema, No cyanosis. Results & Data Vital Signs (Past 12 Hours) Vital Signs Temp Pulse Pulse Resp BP BP Pulse Ox 12/29/22 07:00 78 15 12/29/22 07:00 119/69 12/29/22 06:45 83 14 12/29/22 06:45 105/86 12/29/22 06:30 75 17 12/29/22 06:30 121/66 12/29/22 06:15 75 15 12/29/22 06:15 122/72 12/29/22 06:00 73 12 12/29/22 06:00 138/64 12/29/22 05:45 77 15 12/29/22 05:45 126/90 12/29/22 05:31 101/77 12/29/22 05:31 87 14 12/29/22 05:30 98 H 16 12/29/22 05:15 78 18 12/29/22 05:15 114/64 12/29/22 05:00 81 15 12/29/22 05:00 121/87 12/29/22 04:45 72 15 12/29/22 04:45 108/65 12/29/22 04:31 111/60 12/29/22 04:31 71 21 12/29/22 04:30 78 18 12/29/22 04:15 76 16 12/29/22 04:15 127/78 12/29/22 04:00 81 14 12/29/22 04:00 126/83 12/29/22 03:45 78 16 12/29/22 03:45 126/63 12/29/22 03:30 80 19 12/29/22 03:30 108/81 12/29/22 03:15 76 16 12/29/22 03:15 108/68 12/29/22 03:00 73 13 12/29/22 03:00 124/70 12/29/22 02:59 124/71 12/29/22 02:59 75 15 12/29/22 02:45 51 L 15 12/29/22 02:45 98/69 L 12/29/22 02:30 72 15 12/29/22 02:30 107/67 12/29/22 02:15 77 15 12/29/22 02:15 98/59 L 12/29/22 02:01 92 H 20 12/29/22 02:01 115/69 12/29/22 02:00 69 15 12/29/22 01:45 66 17 12/29/22 07:01 36.4 C L 76 18 119/69 97 12/29/22 03:00 37.0 C 72 18 124/71 96 12/29/22 01:30 79 18 12/29/22 01:15 73 36 H 12/29/22 01:00 105 H 22 12/29/22 00:45 66 19 12/29/22 00:45 123/64 12/29/22 00:30 77 21 12/29/22 00:30 116/63 12/29/22 00:15 85 21 12/29/22 00:15 116/61 12/28/22 22:55 12/29/22 01:36 74 12/29/22 00:00 65 20 12/29/22 00:00 110/71 12/28/22 23:45 75 18 12/28/22 23:45 114/58 L 12/28/22 23:30 88 23 12/28/22 23:30 106/69 12/28/22 23:17 105/68 12/28/22 23:17 80 30 H 12/28/22 23:15 87 32 H 12/28/22 23:15 109/70 12/28/22 23:00 70 25 H 12/28/22 23:00 100/59 L 12/28/22 22:45 76 18 12/28/22 22:45 117/75 12/28/22 22:30 81 25 H 12/28/22 22:30 117/69 12/28/22 22:15 80 18 12/28/22 22:15 128/60 12/28/22 22:00 90 18 12/28/22 22:00 94/66 L 12/28/22 21:45 83 22 12/28/22 21:45 100/74 12/28/22 21:30 87 21 12/28/22 21:30 105/60 12/28/22 23:00 36.5 C 69 17 105/68 97 O2 Del Method O2 Flow Rate 12/29/22 07:00 12/29/22 07:00 12/29/22 06:45 03/19/23 06:45 12/29/22 06:30 12/29/22 06:30 12/29/22 06:15 12/29/22 06:15 12/29/22 06:00 12/29/22 06:00 12/29/22 05:45 12/29/22 05:45 12/29/22 05:31 12/29/22 05:31 12/29/22 05:30 12/29/22 05:15 12/29/22 05:15 12/29/22 05:00 12/29/22 05:00 12/29/22 04:45 12/29/22 04:45 12/29/22 04:31 12/29/22 04:31 12/29/22 04:30 12/29/22 04:15 12/29/22 04:15 12/29/22 04:00 12/29/22 04:00 12/29/22 03:45 12/29/22 03:45 12/29/22 03:30 12/29/22 03:30 12/29/22 03:15 12/29/22 03:15 12/29/22 03:00 12/29/22 03:00 12/29/22 02:59 12/29/22 02:59 12/29/22 02:45 12/29/22 02:45 12/29/22 02:30 12/29/22 02:30 12/29/22 02:15 12/29/22 02:15 12/29/22 02:01 12/29/22 02:01 12/29/22 02:00 12/29/22 01:45 12/29/22 07:01 Room Air 12/29/22 03:00 Nasal Cannula 12/29/22 01:30 12/29/22 01:15 12/29/22 01:00 12/29/22 00:45 12/29/22 00:45 12/29/22 00:30 12/29/22 00:30 12/29/22 00:15 12/29/22 00:15 12/28/22 22:55 Nasal Cannula 3 12/29/22 01:36 12/29/22 00:00 12/29/22 00:00 12/28/22 23:45 12/28/22 23:45 12/28/22 23:30 12/28/22 23:30 12/28/22 23:17 12/28/22 23:17 12/28/22 23:15 12/28/22 23:15 12/28/22 23:00 12/28/22 23:00 12/28/22 22:45 12/28/22 22:45 12/28/22 22:30 12/28/22 22:30 12/28/22 22:15 12/28/22 22:15 12/28/22 22:00 12/28/22 22:00 12/28/22 21:45 12/28/22 21:45 12/28/22 21:30 12/28/22 21:30 12/28/22 23:00 Nasal Cannula Laboratory Results Abnormal Lab Results 12/28/22 12/28/22 12/28/22 10:12 11:40 16:21 WBC RBC Hgb Hct MCV MCH MCHC RDW Std Deviation RDW Coeff of Sumaya Plt Count MPV APTT PTT Ratio Sodium 140 Potassium 3.3 L Chloride 101 Carbon Dioxide 32 Anion Gap 7 BUN 32 H Creatinine 1.53 H Est Cr Clr Drug Dosing 38.2 Est GFR ( Amer) 40.4 Est GFR (Non-Af Amer) 34.8 BUN/Creatinine Ratio 20.9 H Glucose 152 H POC Glucose 176 H 226 H Calcium 8.3 L 12/28/22 12/29/22 12/29/22 19:18 05:26 05:26 WBC 6.60 RBC 2.94 L Hgb 8.1 L Hct 26.9 L MCV 91.5 MCH 27.6 MCHC 30.1 L RDW Std Deviation 51.6 H RDW Coeff of Sumaya 15.4 H Plt Count 176 MPV 10.3 APTT 68.0 H* PTT Ratio 2.5 Sodium Potassium Chloride Carbon Dioxide Anion Gap BUN Creatinine Est Cr Clr Drug Dosing Est GFR ( Amer) Est GFR (Non-Af Amer) BUN/Creatinine Ratio Glucose POC Glucose 188 H Calcium 12/29/22 12/29/22 05:26 07:29 WBC RBC Hgb Hct MCV MCH MCHC RDW Std Deviation RDW Coeff of [place]aya Plt Count MPV APTT PTT Ratio Sodium 139 Potassium 2.9 L Chloride 97 L Carbon Dioxide 36 H Anion Gap 6 BUN 29 H Creatinine 1.34 H Est Cr Clr Drug Dosing 43.1 Est GFR ( Amer) 47.4 Est GFR (Non-Af Amer) 40.9 BUN/Creatinine Ratio 21.6 H Glucose 148 H POC Glucose 148 H Calcium 8.1 L PG Care Time/CCT Total # of Minutes Spent Total Time Spent with Patient: Total time spent is greater than 50% in coordination of care (as documented) at patient's floor/unit and/or counseling patient: Coding Level of Care Code 38336 SUB INP/OBS CARE 2/35MIN Diagnoses Chronic heart failure with preserved ejection fraction I50.32 Elevated troponin R77.8 Hyperlipidemia E78.5 Severe sepsis A41.9; R65.20 Preop cardiovascular exam Z01.810 Paroxysmal atrial fibrillation I48.0
[2022-12-29] MEDS ORDERED: POTASSIUM CHLORIDE CRTAB 20 MEQ TABCR PO ONE (09:29)
--- NOTE | 2022-12-29 12:00 | Hospitalist Progress Note ---
Date of Service December 29, 2022 Assessment & Plan (1) Sepsis: Plan: Severe sepsis 2/2 acute pyelonephritis versus acute cholecystitis Immunocompromised patient, on chronic steroids CTA/P: Pericholecystic minimal inflammatory change, small punctate of gas within the gallbladder, 3 mm stone at distal CBD suspicious for acute cholecystitis ERCP completed on 12/26. Choledocholithiasis found. No pus or signs of cholangitis seen. Biliary stent placed. Patient will need stent removal in 2 months. Back on heparin drip. Can resume Eliquis on 12/30 per GI. Urine culture growing Proteus. Reviewed sensitivities. Continue Zosyn for now as it covers both GI and source. We will switch to Augmentin at the time of discharge Was initially hypotensive. Was aggressively fluid resuscitated. Received stress dose of steroids. Received pressors. Now hemodynamically stable, off of pressors. Patient is clinically improved (2) Acute pyelonephritis due to bacteria: Plan: Patient with UTI symptoms Urine culture Proteus Blood culture negative Covered with Zosyn for cholecystitis as otherwise noted. Patient is feeling better with no urinary symptoms We will switch to Augmentin at time of discharge (3) Choledocholithiasis with acute cholecystitis: Plan: - Clinically does not exam with RUQ pain. Pt has not had any alexis colored stools, right upper quadrant pain, or pain with meals. She did have nausea/vomiting nonbloody/nonbilious this morning. No longer feels nauseous at time of bedside assessment CTA/P with pericholecystic inflammatory change, small punctate of gas within the gallbladder, 3 mm stone at distal CBD Right upper quadrant ultrasound shows no evidence of acute cholecystitis. Cholelithiasis seen. ERCP completed 12/26 with removal of stones. Stents placed in CBD and pancreatic duct. Will need to be removed in 2 months. Back on heparin drip.. Can be started back on Eliquis on 12/30. Surgery does not plan on laparoscopic cholecystectomy this admission due to her gram-negative sepsis from UTI. Follow-up with surgery in 1 week for elective cholecystectomy. (4) Atrial fibrillation with rapid ventricular response: Plan: Underwent electrical cardioversion 12/13/2022 for A-fib with RVR, converted to sinus rhythm BB was initially held fo hypotension. Now back on beta-danae Patient can be started back on heparin drip after ERCP. Eliquis can be resumed on 12/30, per GI Patient has had uncontrolled A-fib during this hospitalization. On Cardizem drip currently. Cardiology managing. Replete potassium Cardiology plans on starting amiodarone (5) (HFpEF) heart failure with preserved ejection fraction: Plan: TTE 11/07/2022: EF 65-70% with normal LV wall motion. Moderate concentric LVH. Mild to moderate annular calcification. Mild mitral stenosis. RVSP 30-40 mmHg. Aortic valve sclerosis mild without significant stenosis. Repeat TTE on 12/26 showed normal EF 60 to 65%. No regional wall motion abnormalities. Moderate concentric LVH. On admission, the patient was in severe sepsis. Lasix was held and the patient was given IV fluids. Lasix has been resumed as sepsis has resolved and the patient is hemodynami alie stable. She appears to be euvolemic today. Continue home dose of Lasix at 20 mg daily Replete potassium (6) Myocardial injury: Plan: Admitting troponin 18.7, went up to 171 Suspect demand in setting of sepsis Echo showed no wall motion abnormalities Cardiology had cleared the patient for ERCP (7) Anemia of chronic disease: (8) Chronic kidney disease, stage 3b: Plan: Baseline creatinine approximately 1.52.1 Admitting creatinine 1.5 Today creatinine is 1.3 Monitor BMP closely Avoid nephrotoxic medications Renally dose medications, trend (9) Diabetes mellitus with neuropathy: Plan: Semaglutide 0.25 mg weekly started 11/25/2022. DDx to include nausea/vomiting/diarrhea Neuropathy treatment with gabapentin 100-300 mg nightly titrated to severity of symptoms by patient SGLT2 inhibitor avoided due to recurrent UTIs with hospitalization Sliding scale insulin ordered (10) Hyperlipidemia: Plan: Last LDL 219. Continue PCSK9 as outpatient, patient has been intolerant of statins due to the recurrent severe myalgias (11) Hypertension: Plan: Blood pressure is creeping up now that sepsis is improving Resumed Lasix, metoprolol (12) Hypothyroidism: Plan: Synthroid 100 mcg daily, continue Variable TFTs as outpatient, but patient has been clinically stable on 100 mcg Synthroid dose defer repeat in the setting of acute illness (13) Rheumatoid arthritis: Plan: Will resume p.o. prednisone close to discharge P.o. prednisone held in the face of sepsis (14) TIA involving vertebral artery: Plan DVT prophylaxis: Now on heparin drip CODE STATUS: Full code Admission and Anticipated Discharge Date Admission Date: December 25, 2022 Subjective Patient complains of no chest pain or shortness of breath. She has no palpitations either. She remains in A-fib, better rate controlled on Cardizem drip at 5. She does not have any abdominal pain. Review of Systems Review of Systems: All systems reviewed & are unremarkable except as noted in Subjective Physical Exam Physical Exam: General: Awake, conversant Heart: S1, S2/irregular rhythm, no murmur rubs or gallops Lungs: Bibasilar crackles noted. Normal effort Abdomen: Soft/nontender/nondistended. No hepatosplenomegaly Extremities: No clubbing/cyanosis. Trace bilateral edema Behavior: Appropriate, cooperative Results & Data Results & Data Vital Signs (Past 12 Hours) Vital Signs Temp Pulse Pulse Resp BP BP Pulse Ox 12/29/22 11:39 36.3 C L 80 18 136/85 97 12/29/22 09:52 12/29/22 07:00 78 15 12/29/22 07:00 119/69 12/29/22 06:45 83 14 12/29/22 06:45 105/86 12/29/22 06:30 75 17 12/29/22 06:30 121/66 12/29/22 06:15 75 15 12/29/22 06:15 122/72 12/29/22 06:00 73 12 12/29/22 06:00 138/64 12/29/22 05:45 77 15 12/29/22 05:45 126/90 12/29/22 05:31 101/77 12/29/22 05:31 87 14 12/29/22 05:30 98 H 16 12/29/22 05:15 78 18 12/29/22 05:15 114/64 12/29/22 05:00 81 15 12/29/22 05:00 121/87 12/29/22 04:45 72 15 12/29/22 04:45 108/65 12/29/22 04:31 111/60 12/29/22 04:31 71 21 12/29/22 04:30 78 18 12/29/22 04:15 76 16 12/29/22 04:15 127/78 12/29/22 04:00 81 14 03/19/23 04:00 126/83 12/29/22 03:45 78 16 12/29/22 03:45 126/63 12/29/22 03:30 80 19 12/29/22 03:30 108/81 12/29/22 03:15 76 16 12/29/22 03:15 108/68 12/29/22 03:00 73 13 12/29/22 03:00 124/70 12/29/22 02:59 124/71 12/29/22 02:59 75 15 12/29/22 02:45 51 L 15 12/29/22 02:45 98/69 L 12/29/22 02:30 72 15 12/29/22 02:30 107/67 12/29/22 02:15 77 15 12/29/22 02:15 98/59 L 12/29/22 02:01 92 H 20 12/29/22 02:01 115/69 12/29/22 02:00 69 15 12/29/22 01:45 66 17 12/29/22 07:01 36.4 C L 76 18 119/69 97 12/29/22 03:00 37.0 C 72 18 124/71 96 12/29/22 01:30 79 18 12/29/22 01:15 73 36 H 12/29/22 01:00 105 H 22 12/29/22 00:45 66 19 12/29/22 00:45 123/64 12/29/22 00:30 77 21 12/29/22 00:30 116/63 12/29/22 00:15 85 21 12/29/22 00:15 116/61 12/29/22 01:36 74 12/29/22 00:00 65 20 12/29/22 00:00 110/71 O2 Del Method O2 Flow Rate 12/29/22 11:39 Nasal Cannula 3 12/29/22 09:52 Nasal Cannula 3 12/29/22 07:00 12/29/22 07:00 12/29/22 06:45 12/29/22 06:45 12/29/22 06:30 12/29/22 06:30 12/29/22 06:15 12/29/22 06:15 12/29/22 06:00 12/29/22 06:00 12/29/22 05:45 12/29/22 05:45 12/29/22 05:31 12/29/22 05:31 12/29/22 05:30 12/29/22 05:15 12/29/22 05:15 12/29/22 05:00 12/29/22 05:00 12/29/22 04:45 12/29/22 04:45 12/29/22 04:31 12/29/22 04:31 12/29/22 04:30 12/29/22 04:15 12/29/22 04:15 12/29/22 04:00 12/29/22 04:00 12/29/22 03:45 12/29/22 03:45 12/29/22 03:30 12/29/22 03:30 12/29/22 03:15 12/29/22 03:15 12/29/22 03:00 12/29/22 03:00 12/29/22 02:59 12/29/22 02:59 12/29/22 02:45 12/29/22 02:45 12/29/22 02:30 12/29/22 02:30 12/29/22 02:15 12/29/22 02:15 12/29/22 02:01 12/29/22 02:01 12/29/22 02:00 12/29/22 01:45 12/29/22 07:01 Room Air 12/29/22 03:00 Nasal Cannula 12/29/22 01:30 12/29/22 01:15 12/29/22 01:00 12/29/22 00:45 12/29/22 00:45 12/29/22 00:30 12/29/22 00:30 12/29/22 00:15 12/29/22 00:15 12/29/22 01:36 12/29/22 00:00 12/29/22 00:00 Laboratory Results Abnormal lab results 12/28/22 12/28/22 12/29/22 Range/Units 16:21 19:18 05:26 RBC (4.20-5.40) M/uL Hgb (12.0-16.0) g/dl Hct (37.0-47.0) % MCHC (32.0-36.0) g/dL RDW Std Deviation (36.4-46.3) fL RDW Coeff of Sumaya (11.5-14.5) % APTT 68.0 H* (21.0-31.0) Seconds Potassium (3.5-5.1) mmol/L Chloride (98-107) mmol/L Carbon Dioxide (21-32) mmol/L BUN (6-23) mg/dl Creatinine (0.6-1.2) mg/dl BUN/Creatinine Ratio (10-20) Glucose (70-99(Fasting)) mg/dl POC Glucose 226 H 188 H (70-99) mg/dl Calcium (8.5-10.1) mg/dl 12/29/22 12/29/22 12/29/22 Range/Units 05:26 05:26 07:29 RBC 2.94 L (4.20-5.40) M/uL Hgb 8.1 L (12.0-16.0) g/dl Hct 26.9 L (37.0-47.0) % MCHC 30.1 L (32.0-36.0) g/dL RDW Std Deviation 51.6 H (36.4-46.3) fL RDW Coeff of Usmaya 15.4 H (11.5-14.5) % APTT (21.0-31.0) Seconds Potassium 2.9 L (3.5-5.1) mmol/L Chloride 97 L (98-107) mmol/L Carbon Dioxide 36 H (21-32) mmol/L BUN 29 H (6-23) mg/dl Creatinine 1.34 H (0.6-1.2) mg/dl BUN/Creatinine Ratio 21.6 H (10-20) Glucose 148 H (70-99(Fasting)) mg/dl POC Glucose 148 H (70-99) mg/dl Calcium 8.1 L (8.5-10.1) mg/dl 12/29/22 Range/Units 11:27 RBC (4.20-5.40) M/uL Hgb (12.0-16.0) g/dl Hct (37.0-47.0) % MCHC (32.0-36.0) g/dL RDW Std Deviation (36.4-46.3) fL RDW Coeff of Sumaya (11.5-14.5) % APTT (21.0-31.0) Seconds Potassium (3.5-5.1) mmol/L Chloride (98-107) mmol/L Carbon Dioxide (21-32) mmol/L BUN (6-23) mg/dl Creatinine (0.6-1.2) mg/dl BUN/Creatinine Ratio (10-20) Glucose (70-99(Fasting)) mg/dl POC Glucose 190 H (70-99) mg/dl Calcium (8.5-10.1) mg/dl PG Care Time/CCT Total # of Minutes Spent Total Time Spent with Patient: Total time spent is greater than 50% in coordination of care (as documented) at patient's floor/unit and/or counseling patient: Coding Level of Care Code 48848 SUB INP/OBS CARE 2MIN Diagnoses Sepsis A41.9 Acute pyelonephritis due to bacteria N10; B96.89 Choledocholithiasis with acute cholecystitis K80.42 Atrial fibrillation with rapid ventricular response I48.91 (HFpEF) heart failure with preserved ejection fraction I50.30 Myocardial injury I5A Anemia of chronic disease D63.8 Chronic kidney disease, stage 3b N18.32 Diabetes mellitus with neuropathy E11.40 Hyperlipidemia E78.5 Hypertension I10 Hypertension type: essential hypertension Hypothyroidism E03.9 Hypothyroidism type: unspecified Rheumatoid arthritis M06.9 Rheumatoid arthritis location: multiple sites Rheumatoid factor presence: unspecified presence TIA involving vertebral artery G45.0 (11) Hypertension Hypertension type: essential hypertension Qualified Code(s): I10 - Essential (primary) hypertension (12) Hypothyroidism Hypothyroidism type: unspecified Qualified Code(s): E03.9 - Hypothyroidism, unspecified (13) Rheumatoid arthritis Rheumatoid arthritis location: multiple sites Rheumatoid factor presence: unspecified presence Qualified Code(s): M06.9 - Rheumatoid arthritis, unspecified
[2022-12-29] MEDS: POTASSIUM CHLORIDE / WTR 10 MEQ/100 ML PLCT IV SCH ×2 (12:45→13:51)
[2022-12-29 15:46] LABS: Partial Thromboplastin Ratio 1.9
[2022-12-29 15:50] LABS: Partial Thromboplastin Time 51.8 Seconds (21.0-31.0)
[2022-12-29] MEDS ORDERED: STAT IV Infusion **Titration per Protocol STA (17:06)
[2022-12-29] MEDS ORDERED: 0.2 MICRON FILTER SET 1 EACH IV STA (17:06)
[2022-12-29] MEDS ORDERED: AMIODARONE IV BOLUS & DRIP IV STA (17:06)
[2022-12-29] MEDS ORDERED: AMIODARONE / D5W 150 MG/100 ML BAG IV STA (17:06)
[2022-12-29] MEDS ORDERED: AMIODARONE / D5W 360 MG/200 ML BAG IV ONE (17:17)
[2022-12-29] MEDS: AMIODARONE / D5W 360 MG/200 ML BAG IV SCH (23:47)
[2022-12-30] MEDS: PIPERACILLIN/TAZOBACTAM 3.375 GM in DEXTROSE 5% 100 ML IV SCH ×3 (00:09→17:24)
[2022-12-30] MEDS: HEPARIN SODIUM/DEXTROSE 25,000 UNITS/500 ML BAG IV SCH ×3 (01:28→19:38)
[2022-12-30] MEDS: LEVOTHYROXINE SODIUM 100 MCG TABLET PO SCH (06:10)
[2022-12-30 07:02] LABS: Hematocrit (blood only) 28.6 % (37.0-47.0); Hemoglobin 8.5 g/dl (12.0-16.0); Mean Corpuscular Hemoglobin 27.2 pg (25.0-34.0); Mean Corpuscular Hgb Conc 29.7 g/dL (32.0-36.0); Mean Corpuscular Volume 91.7 fL (80.0-100.0); Mean Platelet Volume 10.1 fL (9.4-12.4); Platelet Count 179 K/uL (130-400); RDW Coefficient of Variation 15.5 % (11.5-14.5); RDW Standard Deviation 51.4 fL (36.4-46.3); Red Blood Count 3.12 M/uL (4.20-5.40); White Blood Count 6.82 K/ul (4.8-10.8)
[2022-12-30 07:26] LABS: BUN Creatinine Ratio 16.9 (10-20); Calcium 8.4 mg/dl (8.5-10.1); Creatinine Clr Calc Pharmacy 45.7 ml/min; Est GFR (African American) 49.2 ml/min; Est GFR (Non-African American) 42.4 ml/min; Potassium 3.3 mmol/L (3.5-5.1)
[2022-12-30 07:42] LABS: Partial Thromboplastin Ratio 1.6
[2022-12-30 07:45] LABS: Partial Thromboplastin Time 45.3 Seconds (21.0-31.0)
[2022-12-30] MEDS: INSULIN ASPART PER UNIT CHARGE SC SCH ×4 (07:58→20:41)
[2022-12-30] MEDS: POTASSIUM CHLORIDE / WTR 10 MEQ/100 ML PLCT IV SCH ×4 (08:34→11:36)
[2022-12-30] MEDS: METOPROLOL SUCC 50MG EXT REL TAB PO SCH ×2 (08:45→20:20)
--- NOTE | 2022-12-30 11:16 | Hospitalist Progress Note ---
Date of Service December 30, 2022 Assessment & Plan (1) Sepsis: Plan: Severe sepsis 2/2 acute pyelonephritis versus acute cholecystitis Immunocompromised patient, on chronic steroids CTA/P: Pericholecystic minimal inflammatory change, small punctate of gas within the gallbladder, 3 mm stone at distal CBD suspicious for acute cholecystitis ERCP completed on 12/26. Choledocholithiasis found. No pus or signs of cholangitis seen. Biliary stent placed. Patient will need stent removal in 2 months. Can resume Eliquis today 12/30 per GI. Discontinue heparin drip Urine culture growing Proteus. Reviewed sensitivities. Continue Zosyn for now as it covers both GI and source. We will switch to Augmentin at the time of discharge Was initially hypotensive. Was aggressively fluid resuscitated. Received stress dose of steroids. Received pressors. Now hemodynamically stable, off of pressors. Patient is clinically improved (2) Acute pyelonephritis due to bacteria: Plan: Patient with UTI symptoms Urine culture Proteus Blood culture negative Covered with Zosyn for cholecystitis as otherwise noted. Patient is feeling better with no urinary symptoms We will switch to Augmentin at time of discharge (3) Choledocholithiasis with acute cholecystitis: Plan: - Clinically does not exam with RUQ pain. Pt has not had any alexis colored stools, right upper quadrant pain, or pain with meals. She did have nausea/vomiting nonbloody/nonbilious this morning. No longer feels nauseous at time of bedside assessment CTA/P with pericholecystic inflammatory change, small punctate of gas within the gallbladder, 3 mm stone at distal CBD Right upper quadrant ultrasound shows no evidence of acute cholecystitis. Cholelithiasis seen. ERCP completed 12/26 with removal of stones. Stents placed in CBD and pancreatic duct. Will need to be removed in 2 months. Can resume Eliquis today 01/07 per GI. Discontinue heparin drip. Surgery does not plan on laparoscopic cholecystectomy this admission due to her gram-negative sepsis from UTI. Follow-up with surgery in 1 week for elective cholecystectomy. (4) Atrial fibrillation with rapid ventricular response: Plan: Underwent electrical cardioversion 12/13/2022 for A-fib with RVR, converted to sinus rhythm BB was initially held fo hypotension. Now back on beta-danae Eliquis resumed. Heparin drip discontinued Patient has had uncontrolled A-fib during this hospitalization. Cardiology managing. Currently on amiodarone. Replete potassium (5) (HFpEF) heart failure with preserved ejection fraction: Plan: TTE 11/07/2022: EF 65-70% with normal LV wall motion. Moderate concentric LVH. Mild to moderate annular calcification. Mild mitral stenosis. RVSP 30-40 mmHg. Aortic valve sclerosis mild without significant stenosis. Repeat TTE on 12/26 showed normal EF 60 to 65%. No regional wall motion abnormalities. Moderate concentric LVH. On admission, the patient was in severe sepsis. Lasix was held and the patient was given IV fluids. Lasix has been resumed as sepsis has resolved and the patient is hemodynamically stable. Continue home dose of Lasix at 20 mg daily Patient appears to be slightly overloaded today. I heard a few bibasilar crackles. She is still using 2 L of oxygen and at baseline she does not use any oxygen. We will give her a small dose of 20 mg IV Lasix today. Replete potassium (6) Anemia of chronic disease: (7) Chronic kidney disease, stage 3b: Plan: Baseline creatinine approximately 1.52.1 Admitting creatinine 1.5 Today creatinine is 1.3 Monitor BMP closely Avoid nephrotoxic medications Renally dose medications, trend (8) Diabetes mellitus with neuropathy: Plan: Semaglutide 0.25 mg weekly started 11/25/2022. DDx to include nausea/vomiting/diarrhea Neuropathy treatment with gabapentin 100-300 mg nightly titrated to severity of symptoms by patient SGLT2 inhibitor avoided due to recurrent UTIs with hospitalization Sliding scale insulin ordered (9) Hyperlipidemia: Plan: Last LDL 219. Continue PCSK9 as outpatient, patient has been intolerant of statins due to the recurrent severe myalgias (10) Hypertension: Plan: Blood pressure is creeping up now that sepsis is improving Resumed Lasix, metoprolol Given extra dose of IV Lasix today (11) Hypothyroidism: Plan: Synthroid 100 mcg daily, continue Variable TFTs as outpatient, but patient has been clinically stable on 100 mcg Synthroid dose defer repeat in the setting of acute illness (12) Rheumatoid arthritis: Plan: Will resume p.o. prednisone close to discharge P.o. prednisone held in the face of sepsis (13) TIA involving vertebral artery: (14) Myocardial injury: Plan: Admitting troponin 18.7, went up to 171 Suspect demand in setting of sepsis Echo showed no wall motion abnormalities Cardiology had cleared the patient for ERCP Plan DVT prophylaxis: Now on heparin drip CODE STATUS: Full code Admission and Anticipated Discharge Date Admission Date: December 25, 2022 Subjective Patient feels well overall. She denies feeling short of breath. Noted that she is on 2 L of oxygen. She does not use oxygen at home. Review of Systems Review of Systems: All systems reviewed & are unremarkable except as noted in Subjective Physical Exam Physical Exam: General: Awake, conversant Heart: S1, S2/irregular rhythm, no murmur rubs or gallops Lungs: Few bibasilar crackles noted. Normal effort Abdomen: Soft/nontender/nondistended. No hepatosplenomegaly Extremities: No clubbing/cyanosis. Trace bilateral edema Behavior: Appropriate, cooperative Results & Data Results & Data Vital Signs (Past 12 Hours) Vital Signs Temp Pulse Pulse Resp BP BP Pulse Ox 12/30/22 08:00 12/30/22 08:00 91 H 12/30/22 08:40 96 H 152/114 H 12/30/22 07:30 36.7 C 106 H 16 134/98 98 12/30/22 03:23 36.4 C L 100 H 18 96/65 L 97 12/29/22 23:37 99 H 12/29/22 23:25 36.8 C 102 H 19 155/90 H 100 O2 Del Method O2 Flow Rate 12/30/22 08:00 Nasal Cannula 2 12/30/22 08:00 12/30/22 08:40 12/30/22 07:30 Nasal Cannula 3 12/30/22 03:23 Nasal Cannula 3 12/29/22 23:37 12/29/22 23:25 Nasal Cannula 3 Laboratory Results Abnormal lab results 12/29/22 12/29/22 12/29/22 Range/Units 11:27 14:08 16:14 RBC (4.20-5.40) M/uL Hgb (12.0-16.0) g/dl Hct (37.0-47.0) % MCHC (32.0-36.0) g/dL RDW Std Deviation (36.4-46.3) fL RDW Coeff of Sumaya (11.5-14.5) % APTT 51.8 H* (21.0-31.0) Seconds Potassium (3.5-5.1) mmol/L Carbon Dioxide (21-32) mmol/L Creatinine (0.6-1.2) mg/dl Glucose (70-99(Fasting)) mg/dl POC Glucose 190 H 137 H (70-99) mg/dl Calcium (8.5-10.1) mg/dl 12/29/22 12/30/22 12/30/22 Range/Units 19:19 06:23 06:23 RBC 3.12 L (4.20-5.40) M/uL Hgb 8.5 L (12.0-16.0) g/dl Hct 28.6 L (37.0-47.0) % MCHC 29.7 L (32.0-36.0) g/dL RDW Std Deviation 51.4 H (36.4-46.3) fL RDW Coeff of [place]aya 15.5 H (11.5-14.5) % APTT (21.0-31.0) Seconds Potassium 3.3 L (3.5-5.1) mmol/L Carbon Dioxide 35 H (21-32) mmol/L Creatinine 1.30 H (0.6-1.2) mg/dl Glucose 154 H (70-99(Fasting)) mg/dl POC Glucose 190 H (70-99) mg/dl Calcium 8.4 L (8.5-10.1) mg/dl 12/30/22 12/30/22 Range/Units 06:23 07:19 RBC (4.20-5.40) M/uL Hgb (12.0-16.0) g/dl Hct (37.0-47.0) % MCHC (32.0-36.0) g/dL RDW Std Deviation (36.4-46.3) fL RDW Coeff of [place]aya (11.5-14.5) % APTT 45.3 H* (21.0-31.0) Seconds Potassium (3.5-5.1) mmol/L Carbon Dioxide (21-32) mmol/L Creatinine (0.6-1.2) mg/dl Glucose (70-99(Fasting)) mg/dl POC Glucose 158 H (70-99) mg/dl Calcium (8.5-10.1) mg/dl PG Care Time/CCT Total # of Minutes Spent Total Time Spent with Patient: Total time spent is greater than 50% in coordination of care (as documented) at patient's floor/unit and/or counseling patient: Coding Level of Care Code 33964 SUB INP/OBS CARE 2/35MIN Diagnoses Sepsis A41.9 Acute pyelonephritis due to bacteria N10; B96.89 Choledocholithiasis with acute cholecystitis K80.42 Atrial fibrillation with rapid ventricular response I48.91 (HFpEF) heart failure with preserved ejection fraction I50.30 Anemia of chronic disease D63.8 Chronic kidney disease, stage 3b N18.32 Diabetes mellitus with neuropathy E11.40 Hyperlipidemia E78.5 Hypertension I10 Hypertension type: essential hypertension Hypothyroidism E03.9 Hypothyroidism type: unspecified Rheumatoid arthritis M06.9 Rheumatoid arthritis location: multiple sites Rheumatoid factor presence: unspecified presence TIA involving vertebral artery G45.0 Myocardial injury I5A (10) Hypertension Hypertension type: essential hypertension Qualified Code(s): I10 - Essential (primary) hypertension (11) Hypothyroidism Hypothyroidism type: unspecified Qualified Code(s): E03.9 - Hypothyroidism, unspecified (12) Rheumatoid arthritis Rheumatoid arthritis location: multiple sites Rheumatoid factor presence: unspecified presence Qualified Code(s): M06.9 - Rheumatoid arthritis, unspecified
[2022-12-30] MEDS ORDERED: POTASSIUM CHLORIDE CRTAB 20 MEQ TABCR PO STA (11:32)
[2022-12-30] MEDS ORDERED: FUROSEMIDE INJ 20 MG/2 ML VIAL IV ONE (11:35)
[2022-12-30] MEDS: AMIODARONE / D5W 360 MG/200 ML BAG IV SCH (12:07)
[2022-12-30] MEDS: APIXABAN 5 MG TABLET PO SCH ×2 (12:27→20:21)
--- NOTE | 2022-12-30 13:40 | Cardiology Progress Note ---
Date of Service December 30, 2022 Assessment & Plan (1) Chronic heart failure with preserved ejection fraction: (2) Elevated troponin: (3) Hyperlipidemia: (4) Severe sepsis: (5) Preop cardiovascular exam: (6) Paroxysmal atrial fibrillation: Plan ASSESSMENT/PLAN: 1. Chronic heart failure with preserved EF: She seems comfortable today. She would likely benefit from 1 additional dose of IV Lasix. She did receive some supplemental potassium earlier today. We could consider another dose of Lasix this afternoon. 2. Paroxysmal atrial fibrillation: Still in atrial fibrillation. Suboptimal rate control. I will switch her to oral amiodarone this evening. She can likely restart her Eliquis today as well. We will plan for cardioversion tomorrow morning. 3. Sepsis: Resolved 4. Elevated troponin: Likely due to sepsis requiring pressors. No evidence of acute coronary syndrome. 5. Dyslipidemia: She is on PCSK9 inhibitor as an outpatient. 6. Anemia: Stable. No symptoms at rest. Admission and Anticipated Discharge Date Admission Date: December 25, 2022 Subjective This afternoon the patient claimed he feeling well. Little appetite but no abdominal discomfort. Generally not aware of palpitations. No chest pain. She has some expiratory wheezing but she did not describe breathing difficulty. Review of Systems Review of Systems: Per HPI Physical Exam Physical Exam: Gen.: No acute distress. Alert. HEENT: Anicteric sclera. Neck: Thick neck. Cardiac: No ventricular heave. irregular. Normal S1-S2. No murmurs, rubs, or gallops. Pulmonary: Bilateral expiratory wheezing. No rales. Extremities: No edema, No cyanosis. Results & Data Vital Signs (Past 12 Hours) Vital Signs Temp Pulse Pulse Resp BP BP Pulse Ox 12/30/22 11:30 36.8 C 107 H 18 161/109 H 91 12/30/22 08:00 12/30/22 08:00 91 H 12/30/22 08:40 96 H 152/114 H 12/30/22 07:30 36.7 C 106 H 16 134/98 98 12/30/22 03:23 36.4 C L 100 H 18 96/65 L 97 O2 Del Method O2 Flow Rate 12/30/22 11:30 Room Air 12/30/22 08:00 Nasal Cannula 2 12/30/22 08:00 12/30/22 08:40 12/30/22 07:30 Nasal Cannula 3 12/30/22 03:23 Nasal Cannula 3 Laboratory Results Abnormal Lab Results 12/29/22 12/29/22 12/29/22 14:08 16:14 19:19 WBC RBC Hgb Hct MCV MCH MCHC RDW Std Deviation RDW Coeff of Sumaya Plt Count MPV APTT 51.8 H* PTT Ratio 1.9 Sodium Potassium Chloride Carbon Dioxide Anion Gap BUN Creatinine Est Cr Clr Drug Dosing Est GFR ( Amer) Est GFR (Non-Af Amer) BUN/Creatinine Ratio Glucose POC Glucose 137 H 190 H Calcium 12/30/22 12/30/22 12/30/22 06:23 06:23 06:23 WBC 6.82 RBC 3.12 L Hgb 8.5 L Hct 28.6 L MCV 91.7 MCH 27.2 MCHC 29.7 L RDW Std Deviation 51.4 H RDW Coeff of Sumaya 15.5 H Plt Count 179 MPV 10.1 APTT 45.3 H* PTT Ratio 1.6 Sodium 140 Potassium 3.3 L Chloride 99 Carbon Dioxide 35 H Anion Gap 6 BUN 22 Creatinine 1.30 H Est Cr Clr Drug Dosing 45.7 Est GFR ( Amer) 49.2 Est GFR (Non-Af Amer) 42.4 BUN/Creatinine Ratio 16.9 Glucose 154 H POC Glucose Calcium 8.4 L 12/30/22 12/30/22 07:19 11:35 WBC RBC Hgb Hct MCV MCH MCHC RDW Std Deviation RDW Coeff of [place] Plt Count MPV APTT PTT Ratio Sodium Potassium Chloride Carbon Dioxide Anion Gap BUN Creatinine Est Cr Clr Drug Dosing Est GFR ( Amer) Est GFR (Non-Af Amer) BUN/Creatinine Ratio Glucose POC Glucose 158 H 196 H Calcium PG Care Time/CCT Total # of Minutes Spent Total Time Spent with Patient: Total time spent is greater than 50% in coordination of care (as documented) at patient's floor/unit and/or counseling patient: Coding Level of Care Code 00404 SUB INP/OBS CARE 2/35MIN Diagnoses Chronic heart failure with preserved ejection fraction I50.32 Elevated troponin R77.8 Hyperlipidemia E78.5 Severe sepsis A41.9; R65.20 Preop cardiovascular exam Z01.810 Paroxysmal atrial fibrillation I48.0
[2022-12-30 15:01] LABS: Partial Thromboplastin Ratio 1.4; Partial Thromboplastin Time 37.3 Seconds (21.0-31.0)
[2022-12-30] MEDS: AMIODARONE 200 MG TAB PO SCH (17:24)
[2022-12-31] MEDS: PIPERACILLIN/TAZOBACTAM 3.375 GM in DEXTROSE 5% 100 ML IV SCH ×3 (02:49→17:04)
[2022-12-31] MEDS: LEVOTHYROXINE SODIUM 100 MCG TABLET PO SCH (06:22)
[2022-12-31 06:52] LABS: Hematocrit (blood only) 30.3 % (37.0-47.0); Hemoglobin 9.1 g/dl (12.0-16.0); Mean Corpuscular Hemoglobin 27.2 pg (25.0-34.0); Mean Corpuscular Volume 90.4 fL (80.0-100.0); Mean Platelet Volume 9.7 fL (9.4-12.4); Nucleated RBC # (auto) 0.03 K/uL (0-0.12); Nucleated RBC % (auto) 0.4 %; Platelet Count 236 K/uL (130-400); RDW Coefficient of Variation 15.3 % (11.5-14.5); RDW Standard Deviation 50.5 fL (36.4-46.3); Red Blood Count 3.35 M/uL (4.20-5.40)
[2022-12-31 07:14] LABS: BUN Creatinine Ratio 15.1 (10-20); Creatinine Clr Calc Pharmacy 45.1 ml/min; Est GFR (African American) 51.1 ml/min; Potassium 3.7 mmol/L (3.5-5.1)
--- NOTE | 2022-12-31 07:41 | Anesthesiology Consultation ---
Date of Service December 31, 2022 Assessment & Plan Chart Review Chart Review: Acceptable Risk for Surgery and Patient NOT seen in Pre Admission Testing Consults Requested none ASA ASA4 Proposed Anesthesia Anesthesia Type: General Risk / Benefits Reviewed With: PT / POA / Parent / Guardian, Accepts Plan and Informed Consent Obtained History Surgery Operation Date: 12/26/22 11:20 Proposed Procedures p Endoscopic Retrograde Cholangiopancreatogram - Rigoberto Villasenor MD Operation Date: 12/27/22 07:30 Proposed Procedures p Laparoscopic Cholecystectomy - Otto Fish DO Operation Date: 12/31/22 07:30 Proposed Procedures p Cardioversion - Gold Davis MD Height/Weight Height: 5 ft 6 in Weight: 75.9 kg Allergies Allergy/AdvReac Type Severity Reaction Status Date / Time tetracycline Allergy Severe RASH ON Verified 12/25/22 14:59 FACE Azifuvs-CZB-YzW Reductase AdvReac Intermediate LE edema Verified 12/25/22 14:59 Inhibitor [Jxuskfx-Yix-Rwr Reductase Inhibitor] oxycodone AdvReac Mild Drowsy Verified 12/26/22 07:36 Medications Home Medications Medication Instructions Recorded Confirmed Last Taken cholecalciferol (vitamin D3) 25 1,000 unit PO QAM 10/26/18 12/25/22 12/12/22 mcg (1,000 unit) capsule (Vitamin D3) magnesium 250 mg tablet 250 mg PO QAM 10/26/18 12/25/22 12/12/22 acetaminophen 500 mg tablet 1,000 mg PO Q6H PRN Pain 12/24/18 12/25/22 11/06/22 (Tylenol Extra Strength) cyclobenzaprine 10 mg tablet 10 mg PO HS 04/21/21 12/25/22 11/06/22 albuterol sulfate 90 mcg/actuation 2 puff inhalation QID PRN 04/02/22 12/25/22 12/12/22 aerosol inhaler (Ventolin HFA) shortness of breath or wheezing #8.5 grams levothyroxine 100 mcg tablet 100 mcg PO QAM #90 tabs 09/16/22 12/25/22 12/12/22 prednisone 5 mg tablet 10 mg PO QPM 11/13/22 12/25/22 12/12/22 semaglutide 0.25 mg or 0.5 mg (2 0.25 mg (0.2 mL) subcut ONCE #1.5 11/25/22 12/25/22 Unknown mg/1.5 mL) subcutaneous pen mL injector (Ozempic) apixaban 5 mg tablet (Eliquis) 5 mg PO BID #180 tabs 12/02/22 12/25/22 12/13/22 L.acidop,casei,lactis,rham-B.lact,reyes 1 cap PO HS 12/12/22 12/25/22 12/12/22 625 mg (10 billion cell) capsule (Advanced Probiotic) gabapentin 100 mg capsule 100 - 300 mg PO HS 12/12/22 12/25/22 12/12/22 metoprolol succinate 100 mg 100 mg PO BID #60 tabs 12/12/22 12/25/22 12/13/22 tablet,extended release 24 hr omeprazole 40 mg capsule,delayed 40 mg PO QAM 12/12/22 12/25/22 12/12/22 release furosemide 20 mg tablet (Lasix) 20 mg PO DAILY PRN edema of legs 12/13/22 12/25/22 Unknown #30 tabs alirocumab 75 mg/mL subcutaneous 75 mg subcut Q14D #2 mL 12/23/22 12/25/22 Unknown pen injector (Praluent Pen) Active Medications Generic Name Dose Route Start Last Admin Trade Name Freq PRN Reason Stop Dose Admin Amiodarone HCl 400 mg 12/30/22 17:00 12/30/22 17:24 Amiodarone 200 Mg Tab PO 01/29/23 16:59 400 mg BIDM NASRA Administration Apixaban 5 mg 12/30/22 11:30 12/30/22 20:21 Apixaban 5 Mg Tablet PO 01/29/23 11:29 5 mg BID NASRA Administration Guaifenesin/Dextromethorphan 5 ml 12/28/22 01:43 12/28/22 02:03 Guaifenesin/Dextrom Syrup 100mg/10mg 5ml Udc PO 01/27/23 01:42 5 ml Q6H PRN Administration Cough Piperacillin Sod/Tazobactam 115 mls @ 28.75 mls/hr 12/25/22 18:00 12/31/22 06:24 Sod 3.375 gm/ Dextrose IV 01/04/23 17:59 Infused Q8H NASRA Infusion Protocol Insulin Aspart 0 units 12/27/22 16:30 12/30/22 20:41 Insulin Aspart Per Unit SC 01/26/23 16:29 Not Given ACHS NASRA Levothyroxine Sodium 100 mcg 12/28/22 06:30 12/31/22 06:22 Levothyroxine Sodium 100 Mcg Tablet PO 01/27/23 06:29 100 mcg DAILYBB NASRA Administration Metoprolol Succinate 100 mg 12/27/22 21:00 12/30/22 20:20 Metoprolol Succ 50mg Ext Rel Tab PO 01/26/23 20:59 100 mg BID NASRA Administration Metoprolol Tartrate 5 mg 12/28/22 01:58 12/28/22 02:30 Metoprolol Tartrate 1 Mg/Ml Vial IV 01/27/23 01:57 5 mg Q5M PRN Administration Tachycardia NPO Date Last Intake of Fluids: 12/31/22 Time Last Intake of Fluids: 05:30 Last Intake of Fluids Comment: med w/ sip water Date Last Intake of Solids: 12/30/22 Time Last Intake of Solids: 17:00 Past Medical History Medical History (HFpEF) heart failure with preserved ejection fraction Acute congestive heart failure 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--per pt due to clot, cleared from neurology--follows with PCP--has slight weakness on left side Acute on chronic kidney failure Acute respiratory failure with hypoxia AISHWARYA (acute kidney injury) Anemia of chronic disease Anxiety Bilateral leg edema Chronic kidney disease, stage 3b Diabetes mellitus type II, controlled Exertional chest pain GERD (gastroesophageal reflux disease) History of COVID-19 10/04/21--hospitalized @ [facility] for 9 days--no issues now History of MRSA infection lumbar surgical incision s/p vanco/ceftriaxone/bactrim per 04/2019 [facility] discharge summary History of recent blood transfusion 09/18/22 @ [facility] Hospital discharge follow-up Hyperlipidemia Hypertension Hypothyroidism Immunosuppression due to drug therapy Lumbar radiculopathy Paroxysmal atrial fibrillation Recurrent UTI Rheumatoid arthritis Sepsis recent hospitalization 09/17/22 @ [facility] due to UTI Spinal stenosis Stenosis of left internal carotid artery 50-69% stenosis of left ICA per 04/2021 neck CTA Stenosis of left vertebral artery Approximately 90% stenosis within V4 segment of left vertebral artery per 04/21/2021 neck CTA Exercise / Class Metabolic Activity III < 4 Walking/Shop/Light housework Past Family History Family History Father Diabetes Lung cancer Cancer Hypertension Mother Malignant neoplasm of brain Diabetes Brain tumor Cancer Hypertension Aunt Breast cancer Sister Hypertension Other No family history of adverse response to anesthesia Denies family history of Ovarian cancer Prostate cancer Myocardial infarction Colorectal cancer Past Surgical History Surgical History History of x2 History of hysterectomy total History of lumbar surgery Lumbar Spine Wound Revision 05/2019 Dr. Mane @ [facility] History of total left knee replacement Hx of tonsillectomy Status post laminectomy with spinal fusion L2-L5 laminectomy/fusion: 12/24/18: Grade view 1, MAC#3, ETT 7.0 Past Anesthesia History No Hx of Anesthesia Complications and No Family Hx of Anesthesia Complications History of PONV No Hx of PONV and No Hx of Motion Sickness Social History Smoking Status: Never smoker Hx Alcohol Use: Yes Alcohol type: wine alcohol intake frequency: holidays/special occasions only Hx Substance Use: No substance use type: does not use Physical Exam Vital Signs Last Vital Signs Temp 36.8 C 12/31/22 03:27 Pulse 115 H 12/31/22 07:27 Resp 16 12/31/22 07:27 BP 130/85 12/31/22 07:27 Pulse Ox 98 12/31/22 07:27 O2 Del Method Room Air 12/31/22 07:27 O2 Flow Rate 2 12/30/22 08:00 Constitutional no acute distress and not obese ENMT Mouth: no dentition abnormality Thyromental Distance: < 3.5 Finger Breadths Mallampati Class: II Neck normal visual inspection and trachea midline; neck extension not limited Respiratory normal respiratory effort Auscultation: + diminished lung sounds Cardiovascular Rate/Rhythm: + abnormal rate (afib) and + abnormal rhythm (afib) Heart Sounds: no murmur Extremities: + edema Musculoskeletal Spine: normal cervical ROM and no pain with cervical ROM Extremities: full ROM of extremities Neurologic moves all extremities Motor/Sensory: no sensory deficit Psychiatric Orientation: alert and oriented x 3 Testing Laboratory Results 12/31/22 05:45 12/31/22 05:45 PT 10.6 Seconds (9.0-12.0) 12/25/22 10:10 INR 1.0 (0.9-1.1) 12/25/22 10:10 APTT 37.3 Seconds (21.0-31.0) H 12/30/22 14:10 Urine Color Dark Yellow 12/25/22 Unknown Urine Appearance Turbid (Clear) A 12/25/22 Unknown Urine pH 7.0 (4.5-7.5) 12/25/22 Unknown Ur Specific [place] 1.019 (1.000-1.030) 12/25/22 Unknown Urine Protein 3+ (Negative) H 12/25/22 Unknown Urine Glucose (UA) Negative (Negative) 12/25/22 Unknown Urine Ketones Trace (Negative) H 12/25/22 Unknown Urine Nitrite Positive (Negative) A 12/25/22 Unknown Ur Leukocyte Esterase 3+ (Negative) H 12/25/22 Unknown Urine WBC (Auto) >30 /hpf (0-5) H 12/25/22 Unknown Urine RBC (Auto) 10-30 /hpf (0-4) H 12/25/22 Unknown U Hyaline Cast (Auto) 1-5 /lpf (0-5) 12/25/22 Unknown U Epithel Cells (Auto) >30 /lpf (0-5) H 12/25/22 Unknown Urine Bacteria (Auto) 4+ (Negative) H 12/25/22 Unknown 12/25/22 14:25 Aerobic Blood Culture - Final Blood No growth in Aerobic bottle after 5 days. Anaerobic Blood Culture - Final 12/25/22 10:10 Aerobic Blood Culture - Final Blood No growth in Aerobic bottle after 5 days. Anaerobic Blood Culture - Final No growth in Anaerobic bottle after 5 days. 12/25/22 Unknown Urine Culture - Final Urine,Clean Catch Proteus mirabilis 12/31/22 12/31/22 12/30/22 07:05 06:03 20:31 POC Glucose 141 H 143 H 173 H
[2022-12-31] MEDS ORDERED: ATROPINE SULFATE 0.1 MG/ML 10ML SYR IV PRN (07:42)
[2022-12-31] MEDS ORDERED: ePHEDrine sulfate 50 MG/ML AMP IV PRN (07:42)
[2022-12-31] MEDS ORDERED: PROPOFOL IV EMULSION 10 MG/ML 20 ML VIAL IV ONE (07:53)
--- NOTE | 2022-12-31 08:09 | Cardioversion ---
Date of Service December 31, 2022 PG Electrical Cardioversion Rp Electrical Cardioversion Report Procedure performed: Cardioversion Indication: Atrial fibrillation Staff soda dialyzer: Gold Davis MD Procedure in detail: The patient was informed of the risks benefits and alternatives to the intended procedure. He understood such which proceed. He was taken to the cardiac catheterization suite holding area. A general anesthetic was administered by the Anesthesiology Service. Once appropriately anesthetized, the patient was cardioverted using 200 joules delivered in a biphasic fashion. This returned the patient to sinus rhythm. The patient tolerated procedure well, there were no immediate complications. Patient was neurologically intact subsequent to the procedure. Impression: Successful cardioversion from atrial fibrillation to normal sinus rhythm Coding Level of Care Code 50215 CARDIOVERSION, ELECTIVE Additional Codes Electrical Cardioversion Report ([id number])
--- NOTE | 2022-12-31 08:11 | Anesthesiology Progress Note ---
Date of Service December 31, 2022 Anesthesia Post Procedure Vital Signs Vital Signs: Temp Pulse Pulse Resp BP BP Pulse Ox 12/31/22 07:00 124 H 12/31/22 08:02 90 14 150/86 H 99 12/31/22 07:47 80 16 141/85 H 98 12/31/22 07:27 115 H 16 130/85 98 12/31/22 03:27 36.8 C 123 H 18 131/90 96 12/30/22 23:45 36.9 C 115 H 18 139/75 92 12/30/22 23:31 117 H 12/30/22 22:04 12/30/22 19:15 36.7 C 118 H 18 119/90 95 12/30/22 16:30 71 12/30/22 16:15 37.0 C 110 H 18 145/86 H 95 12/30/22 11:30 36.8 C 107 H 18 161/109 H 91 12/30/22 08:40 96 H 152/114 H O2 Del Method 12/31/22 07:00 12/31/22 08:02 Room Air 12/31/22 07:47 Room Air 12/31/22 07:27 Room Air 12/31/22 03:27 Room Air 12/30/22 23:45 Room Air 12/30/22 23:31 12/30/22 22:04 Room Air 12/30/22 19:15 Room Air 12/30/22 16:30 12/30/22 16:15 Room Air 12/30/22 11:30 Room Air 12/30/22 08:40 Pain Intensity Lower Back: Pain Intensity: 0 Transfer of Care Handoff Completed per policy Notes Mental Status: alert / awake / arousable Patient Amnestic to Procedure: Yes Nausea / Vomiting: adequately controlled Pain: adequately controlled Airway Patency, RR, SpO2: stable & adequate BP & HR: stable & adequate Hydration State: stable & adequate Anesthetic Complications: no major complications apparent
[2022-12-31] MEDS: INSULIN ASPART PER UNIT CHARGE SC SCH ×4 (08:57→20:26)
[2022-12-31] MEDS: AMIODARONE 200 MG TAB PO SCH ×2 (09:03→17:00)
[2022-12-31] MEDS: APIXABAN 5 MG TABLET PO SCH ×2 (09:04→20:13)
[2022-12-31] MEDS: METOPROLOL SUCC 50MG EXT REL TAB PO SCH ×2 (09:05→20:13)
--- NOTE | 2022-12-31 10:38 | Cardiology Progress Note ---
Date of Service December 31, 2022 Assessment & Plan (1) Chronic heart failure with preserved ejection fraction: (2) Elevated troponin: (3) Hyperlipidemia: (4) Severe sepsis: (5) Preop cardiovascular exam: (6) Paroxysmal atrial fibrillation: Plan ASSESSMENT/PLAN: 1. Chronic heart failure with preserved EF: She seems to be euvolemic or least approaching euvolemia. 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 I think if she is ambulatory and not short of breath she can be discharged with careful attention to her weight and edema at home. She has p.r.n. Lasix for use. 2. Paroxysmal atrial fibrillation: She underwent cardioversion today. Recommend continuing amiodarone 400 mg twice daily for 1 week and then reducing the dose to 200 mg daily. She should have follow-up previously arranged in our clinic. She should continue her apixaban. 3. Sepsis: Resolved 4. Elevated troponin: Likely due to sepsis requiring pressors. No evidence of acute coronary syndrome. 5. Dyslipidemia: She is on PCSK9 inhibitor as an outpatient. 6. Anemia: Stable. No symptoms at rest. I think if she is ambulatory and feeling well if she would be stable for discharge. Will need to pay close attention to her volume status at home. Any evidence of breathing difficulty or edema should prompt use of her diuretic. Admission and Anticipated Discharge Date Admission Date: December 25, 2022 Subjective This morning patient claims to be feeling well. She denies breathing difficulty. She seems to feel better since her cardioversion but had difficulty being more specific. Some ambulation around the room yesterday without dizziness or lightheadedness. Review of Systems Review of Systems: Per HPI Physical Exam Physical Exam: Gen.: No acute distress. Alert. HEENT: Anicteric sclera. Neck: Thick neck. Cardiac: No ventricular heave. irregular. Normal S1-S2. No murmurs, rubs, or gallops. Pulmonary: Normal respiratory effort No rales. Extremities: No edema, No cyanosis. Results & Data Vital Signs (Past 12 Hours) Vital Signs Temp Pulse Pulse Resp BP Pulse Ox O2 Del Method 12/31/22 08:30 Room Air 12/31/22 08:59 89 12/31/22 08:00 36.8 C 88 16 161/93 H 94 Room Air 12/31/22 07:15 36.6 C 99 H 18 182/99 H 94 Room Air 12/31/22 07:00 36.6 C 99 H 18 182/99 H 94 Room Air 12/31/22 07:00 124 H 12/31/22 08:02 90 14 150/86 H 99 Room Air 12/31/22 07:47 80 16 141/85 H 98 Room Air 12/31/22 07:27 115 H 16 130/85 98 Room Air 12/31/22 03:27 36.8 C 123 H 18 131/90 96 Room Air 12/30/22 23:45 36.9 C 115 H 18 139/75 92 Room Air 12/30/22 23:31 117 H Laboratory Results Abnormal Lab Results 12/30/22 12/30/22 12/30/22 11:35 14:10 16:20 WBC RBC Hgb Hct MCV MCH MCHC RDW Std Deviation RDW Coeff of Sumaya Plt Count MPV Absolute Nucleated RBC Nucleated RBC % (auto) APTT 37.3 H PTT Ratio 1.4 Sodium Potassium Chloride Carbon Dioxide Anion Gap BUN Creatinine Est Cr Clr Drug Dosing Est GFR ( Amer) Est GFR (Non-Af Amer) BUN/Creatinine Ratio Glucose POC Glucose 196 H 165 H Calcium 12/30/22 12/31/22 12/31/22 20:31 05:45 05:45 WBC 8.20 RBC 3.35 L Hgb 9.1 L Hct 30.3 L MCV 90.4 MCH 27.2 MCHC 30.0 L RDW Std Deviation 50.5 H RDW Coeff of Sumaya 15.3 H Plt Count 236 MPV 9.7 Absolute Nucleated RBC 0.03 Nucleated RBC % (auto) 0.4 APTT PTT Ratio Sodium 140 Potassium 3.7 Chloride 98 Carbon Dioxide 35 H Anion Gap 7 BUN 19 Creatinine 1.26 H Est Cr Clr Drug Dosing 45.1 Est GFR ( Amer) 51.1 Est GFR (Non-Af Amer) 44.0 BUN/Creatinine Ratio 15.1 Glucose 147 H POC Glucose 173 H Calcium 9.0 12/31/22 12/31/22 06:03 07:05 WBC RBC Hgb Hct MCV MCH MCHC RDW Std Deviation RDW Coeff of Sumaya Plt Count MPV Absolute Nucleated RBC Nucleated RBC % (auto) APTT PTT Ratio Sodium Potassium Chloride Carbon Dioxide Anion Gap BUN Creatinine Est Cr Clr Drug Dosing Est GFR ( Amer) Est GFR (Non-Af Amer) BUN/Creatinine Ratio Glucose POC Glucose 143 H 141 H Calcium PG Care Time/CCT Total # of Minutes Spent Total Time Spent with Patient: Total time spent is greater than 50% in coordination of care (as documented) at patient's floor/unit and/or counseling patient: Coding Level of Care Code 45343 SUB INP/OBS CARE 2/35MIN Diagnoses Chronic heart failure with preserved ejection fraction I50.32 Elevated troponin R77.8 Hyperlipidemia E78.5 Severe sepsis A41.9; R65.20 Preop cardiovascular exam Z01.810 Paroxysmal atrial fibrillation I48.0
--- NOTE | 2022-12-31 11:00 | Electrocardiogram Report ---
Test Reason : Blood Pressure : / mmHG Vent. Rate : 087 BPM Atrial Rate : 087 BPM P-R Int : 152 ms QRS Dur : 070 ms QT Int : 372 ms P-R-T Axes : 023 032 056 degrees QTc Int : 447 ms Sinus rhythm with Premature atrial complexes Otherwise normal ECG When compared with ECG of 25-DEC-2022 13:13, Premature atrial complexes are now Present Nonspecific T wave abnormality no longer evident in Inferior leads Confirmed by Gold Davis [id number] on 12/31/2022 10:59:47 AM Referred By: REFERRED SELF Confirmed By:Harry Davis
--- NOTE | 2022-12-31 14:35 | Hospitalist Progress Note ---
Date of Service December 31, 2022 Assessment & Plan (1) Sepsis: Plan: Severe sepsis most likely 2/2 acute pyelonephritis rather than acute cholecystitis Immunocompromised patient, on chronic steroids CTA/P: Pericholecystic minimal inflammatory change, small punctate of gas within the gallbladder, 3 mm stone at distal CBD suspicious for acute cholecystitis ERCP completed on 12/26. Choledocholithiasis found. No pus or signs of cholangitis seen. Biliary stent placed. Patient will need stent removal in 2 months. Can resume Eliquis today 12/30 per GI. Discontinue heparin drip Urine culture growing Proteus. Reviewed sensitivities. Continue Zosyn for now as it covers both GI and source. She will have completed 7 days of IV Zosyn tomorrow. No more antibiotics to go home with. Was initially hypotensive. Was aggressively fluid resuscitated. Received stress dose of steroids. Received pressors. Now hemodynamically stable, off of pressors. Patient is clinically improved (2) Acute pyelonephritis due to bacteria: Plan: Patient with UTI symptoms Urine culture Proteus Blood culture negative Covered with Zosyn for cholecystitis as otherwise noted. Will have finished 7 days of IV Zosyn tomorrow. No more antibiotics to go home with. Patient is feeling better with no urinary symptoms She has had recurrent UTI in the past 1 year. She has a follow-up appointment with urology coming up soon. She has been advised to keep that follow-up appointment. (3) Choledocholithiasis with acute cholecystitis: Plan: - Clinically does not exam with RUQ pain. Pt has not had any alexis colored stools, right upper quadrant pain, or pain with meals. She did have nausea/vomiting nonbloody/nonbilious this morning. No longer feels nauseous at time of bedside assessment CTA/P with pericholecystic inflammatory change, small punctate of gas within the gallbladder, 3 mm stone at distal CBD Right upper quadrant ultrasound shows no evidence of acute cholecystitis. Cholelithiasis seen. ERCP completed 12/26 with removal of stones. Stents placed in CBD and pancreatic duct. Will need to be removed in 2 months. Resumed Eliquis Surgery does not plan on laparoscopic cholecystectomy this admission due to her gram-negative sepsis from UTI. Follow-up with surgery in 1 week for elective cholecystectomy. (4) Atrial fibrillation with rapid ventricular response: Plan: Underwent electrical cardioversion 12/13/2022 for A-fib with RVR, converted to sinus rhythm BB was initially held fo hypotension. Now back on beta-danae Eliquis resumed. Patient has had uncontrolled A-fib during this hospitalization. Cardiology managing. Currently on amiodarone. Status post electrocardioversion today 12/31 Likely discharge tomorrow on Eliquis, metoprolol, amiodarone (newly started) (5) (HFpEF) heart failure with preserved ejection fraction: Plan: TTE 11/07/2022: EF 65-70% with normal LV wall motion. Moderate concentric LVH. Mild to moderate annular calcification. Mild mitral stenosis. RVSP 30-40 mmHg. Aortic valve sclerosis mild without significant stenosis. Repeat TTE on 12/26 showed normal EF 60 to 65%. No regional wall motion abnormalities. Moderate concentric LVH. On admission, the patient was in severe sepsis. Lasix was held and the patient was given IV fluids. Lasix has been resumed as sepsis has resolved and the patient is hemodyna mically stable. Continue home dose of Lasix at 20 mg daily Patient appears euvolemic. No more extra doses of Lasix. (6) Anemia of chronic disease: (7) Chronic kidney disease, stage 3b: Plan: Baseline creatinine approximately 1.52.1 Admitting creatinine 1.5 Today creatinine is 1.3 Monitor BMP closely Avoid nephrotoxic medications Renally dose medications, trend (8) Diabetes mellitus with neuropathy: Plan: Semaglutide 0.25 mg weekly started 11/25/2022. DDx to include nausea/vomiting/diarrhea Neuropathy treatment with gabapentin 100-300 mg nightly titrated to severity of symptoms by patient SGLT2 inhibitor avoided due to recurrent UTIs with hospitalization Sliding scale insulin ordered (9) Hyperlipidemia: Plan: Last LDL 219. Continue PCSK9 as outpatient, patient has been intolerant of statins due to the recurrent severe myalgias (10) Hypertension: Plan: Blood pressure is creeping up now that sepsis is improving Resumed Lasix, metoprolol Given extra dose of IV Lasix today (11) Hypothyroidism: Plan: Synthroid 100 mcg daily, continue Variable TFTs as outpatient, but patient has been clinically stable on 100 mcg Synthroid dose defer repeat in the setting of acute illness (12) Rheumatoid arthritis: Plan: Will resume p.o. prednisone close to discharge P.o. prednisone held in the face of sepsis (13) TIA involving vertebral artery: (14) Myocardial injury: Plan: Admitting troponin 18.7, went up to 171 Suspect demand in setting of sepsis Echo showed no wall motion abnormalities Cardiology had cleared the patient for ERCP Plan DVT prophylaxis: Now on heparin drip CODE STATUS: Full code Admission and Anticipated Discharge Date Admission Date: December 25, 2022 Subjective Patient feels well. She denies any chest pain or shortness of breath. She was cardioverted already this morning. Review of Systems Review of Systems: All systems reviewed & are unremarkable except as noted in Subjective Physical Exam Physical Exam: General: Awake, conversant Heart: S1, S2/regular rate and rhythm, no murmur rubs or gallops Lungs: Few bibasilar crackles noted. Normal effort Abdomen: Soft/nontender/nondistended. No hepatosplenomegaly Extremities: No clubbing/cyanosis. Trace bilateral edema Behavior: Appropriate, cooperative Results & Data Results & Data Vital Signs (Past 12 Hours) Vital Signs Temp Pulse Pulse Resp BP Pulse Ox O2 Del Method 12/31/22 11:37 36.9 C 87 16 162/93 H 94 Room Air 12/31/22 08:30 Room Air 12/31/22 08:59 89 12/31/22 08:00 36.8 C 88 16 161/93 H 94 Room Air 12/31/22 07:15 36.6 C 99 H 18 182/99 H 94 Room Air 12/31/22 07:00 36.6 C 99 H 18 182/99 H 94 Room Air 12/31/22 07:00 124 H 12/31/22 08:02 90 14 150/86 H 99 Room Air 12/31/22 07:47 80 16 141/85 H 98 Room Air 12/31/22 07:27 115 H 16 130/85 98 Room Air 12/31/22 03:27 36.8 C 123 H 18 131/90 96 Room Air Laboratory Results Abnormal lab results 12/30/22 12/30/22 12/30/22 Range/Units 14:10 16:20 20:31 RBC (4.20-5.40) M/uL Hgb (12.0-16.0) g/dl Hct (37.0-47.0) % MCHC (32.0-36.0) g/dL RDW Std Deviation (36.4-46.3) fL RDW Coeff of Sumaya (11.5-14.5) % APTT 37.3 H (21.0-31.0) Seconds Carbon Dioxide (21-32) mmol/L Creatinine (0.6-1.2) mg/dl Glucose (70-99(Fasting)) mg/dl POC Glucose 165 H 173 H (70-99) mg/dl 12/31/22 12/31/22 12/31/22 Range/Units 05:45 05:45 06:03 RBC 3.35 L (4.20-5.40) M/uL Hgb 9.1 L (12.0-16.0) g/dl Hct 30.3 L (37.0-47.0) % MCHC 30.0 L (32.0-36.0) g/dL RDW Std Deviation 50.5 H (36.4-46.3) fL RDW Coeff of Sumaya 15.3 H (11.5-14.5) % APTT (21.0-31.0) Seconds Carbon Dioxide 35 H (21-32) mmol/L Creatinine 1.26 H (0.6-1.2) mg/dl Glucose 147 H (70-99(Fasting)) mg/dl POC Glucose 143 H (70-99) mg/dl 12/31/22 12/31/22 Range/Units 07:05 11:30 RBC (4.20-5.40) M/uL Hgb (12.0-16.0) g/dl Hct (37.0-47.0) % MCHC (32.0-36.0) g/dL RDW Std Deviation (36.4-46.3) fL RDW Coeff of [employer]aya (11.5-14.5) % APTT (21.0-31.0) Seconds Carbon Dioxide (21-32) mmol/L Creatinine (0.6-1.2) mg/dl Glucose (70-99(Fasting)) mg/dl POC Glucose 141 H 154 H (70-99) mg/dl PG Care Time/CCT Total # of Minutes Spent Total Time Spent with Patient: Total time spent is greater than 50% in coordination of care (as documented) at patient's floor/unit and/or counseling patient: Coding Level of Care Code 88929 SUB INP/OBS CARE MIN Diagnoses Sepsis A41.9 Acute pyelonephritis due to bacteria N10; B96.89 Choledocholithiasis with acute cholecystitis K80.42 Atrial fibrillation with rapid ventricular response I48.91 (HFpEF) heart failure with preserved ejection fraction I50.30 Anemia of chronic disease D63.8 Chronic kidney disease, stage 3b N18.32 Diabetes mellitus with neuropathy E11.40 Hyperlipidemia E78.5 Hypertension I10 Hypertension type: essential hypertension Hypothyroidism E03.9 Hypothyroidism type: unspecified Rheumatoid arthritis M06.9 Rheumatoid arthritis location: multiple sites Rheumatoid factor presence: unspecified presence TIA involving vertebral artery G45.0 Myocardial injury I5A (10) Hypertension Hypertension type: essential hypertension Qualified Code(s): I10 - Essential (primary) hypertension (11) Hypothyroidism Hypothyroidism type: unspecified Qualified Code(s): E03.9 - Hypothyroidism, unspecified (12) Rheumatoid arthritis Rheumatoid arthritis location: multiple sites Rheumatoid factor presence: unspecified presence Qualified Code(s): M06.9 - Rheumatoid arthritis, unspecified
[2023-01-01] MEDS: PIPERACILLIN/TAZOBACTAM 3.375 GM in DEXTROSE 5% 100 ML IV SCH (02:19)
[2023-01-01 06:11] LABS: Hematocrit (blood only) 29.1 % (37.0-47.0); Mean Corpuscular Hemoglobin 27.7 pg (25.0-34.0); Mean Corpuscular Hgb Conc 30.9 g/dL (32.0-36.0); Mean Corpuscular Volume 89.5 fL (80.0-100.0); Mean Platelet Volume 9.6 fL (9.4-12.4); Nucleated RBC # (auto) 0.04 K/uL (0-0.12); Nucleated RBC % (auto) 0.5 %; Platelet Count 240 K/uL (130-400); RDW Coefficient of Variation 15.6 % (11.5-14.5); RDW Standard Deviation 49.8 fL (36.4-46.3); Red Blood Count 3.25 M/uL (4.20-5.40); White Blood Count 8.45 K/ul (4.8-10.8)
[2023-01-01] MEDS: LEVOTHYROXINE SODIUM 100 MCG TABLET PO SCH (06:13)
[2023-01-01 06:26] LABS: Calcium 8.8 mg/dl (8.5-10.1); Creatinine Clr Calc Pharmacy 37.9 ml/min; Est GFR (African American) 41.4 ml/min; Est GFR (Non-African American) 35.7 ml/min; Potassium 3.4 mmol/L (3.5-5.1)
[2023-01-01] MEDS: INSULIN ASPART PER UNIT CHARGE SC SCH (08:13)
[2023-01-01] MEDS: AMIODARONE 200 MG TAB PO SCH (08:22)
[2023-01-01] MEDS: APIXABAN 5 MG TABLET PO SCH (08:22)
[2023-01-01] MEDS: METOPROLOL SUCC 50MG EXT REL TAB PO SCH (08:22)
--- NOTE | 2023-01-01 10:18 | Discharge Summary ---
Date of Service January 01, 2023 Admission HPI Per Admitting Provider Daniela Champagne is a 67-year-old female with a past medical history of rheumatoid arthritis on chronic prednisone, type II DM, TIA, hypothyroidism, chronic anemia, heart failure with preserved ejection fraction, CKD 3B, A-fib with RVR on apixaban, hyperlipidemia on praluent, Started to feel ill at 5am this morning Was feeling normal yesterday evening Woke up this morning and had tightness in her back and shoulders, was lightheaded and dizzy, and arms tingled with lightheaded. +Nausea and vomiting since this morning. Denies abdominal pain + Chills last night, no fever. Does not feel feverish Bowel movements have been 'good, normal.' No mckinney stools. No black or bloody BMs. No pain with meals No burnign with urination. No blood in her urine. 'I can tell by the color of my urine and it getting clouding and having to go more often I have a UTI.' Multiple UTIs in the past, feels current urine odor/concentration and increased low volume frequency has erica there for ~2 days. Got 4x baby aspirin in ambulance. Pain in her chest had resolved prior to aspirin/EMS arrival. Lasted on 10-15 minutes. No problems with chest pain prior to this morning. Reports had been walking post cardioversion well with no shortness of breath or pain No hstory of [place] No history of bleeding problems Takes ozempic, no insulin CKD at baseline Medical History: Reviewed Medications: Reviewed. Took eliquis this morning, took 4x baby aspirin in the ambulance Surgical History: Reviewed Family history: Reviewed Allergies: Reviewed Social History: No tobacco product use current or former. Rare social alcohol use. No med marijuana or rec drug use. Code Status: Full Code Admission Exam Per Admitting Provider General: A&Ox3. Appears ill, cooperative, answers questions appropriately HEENT: Atraumatic, normocephalic. Vision/hearing grossly intact Pulm: CTAB A&P. -wheezes, -rales, -rhonchi. Symmetrical chest rise. No increased work of breathing. No respiratory distress. Cardiac: Regular, tachycardic. Radial pulses intact and symmetrical. Abdominal: Nontender, nondistended, soft. BS present. Caraballo sign is not present, there is no abdominal tenderness to palpation. No rebound. Extremities: Mild pitting edema of the lower extremities bilaterally with compression socks in place. No asymmetry. Baseline per patient. Sensation to soft touch on the plantar surface is diminished, sensation to soft touch in the ankles is intact bilaterally. Ankle dorsiflexion/plantarflexion 5/5. Cap refill is sluggish approximately 2 seconds at the hallux. Belt Notcher strength is 5/5 bilaterally, radial pulse is intact and symmetrical. Principal Diagnosis Sepsis due to acute Proteus pyelonephritis, A-fib with rapid ventricular response, choledocholithiasis Discharge Exam General: Awake, conversant Heart: S1, S2/regular rate and rhythm, no murmur rubs or gallops Lungs: Few bibasilar crackles noted. Normal effort Abdomen: Soft/nontender/nondistended. No hepatosplenomegaly Extremities: No clubbing/cyanosis. Trace bilateral edema Behavior: Appropriate, cooperative Discharge Data Allergies Allergy/AdvReac Type Severity Reaction Status Date / Time tetracycline Allergy Severe RASH ON Verified 12/25/22 14:59 FACE Llpyabz-OKU-TdD Reductase AdvReac Intermediate LE edema Verified 12/25/22 14:59 Inhibitor [Ntevtpa-Tch-Bvk Reductase Inhibitor] oxycodone AdvReac Mild Drowsy Verified 12/26/22 07:36 Consultations 12/25/22 14:08 ED Decision to Admit Stat 12/25/22 15:08 Consult Gastroenterology Routine Consult General Surgery Routine 12/25/22 16:53 Consult Skilled Nursing Facility Counselor Routine 12/26/22 11:09 Consult Cardiology Routine Procedures Performed Operation Date: 12/31/22 07:30 Actual Procedures p Cardioversion - Gold Davis MD Ordered Studies 12/25/22 10:50 CT abd pelvis wo con Stat CT chest diagnostic wo con Stat 12/25/22 20:09 US RUQ [US liver] Routine 12/26/22 [place] ERCP biliary ductal Routine 12/26/22 11:55 US upper EUS PACS images Routine Hospital Course (1) Sepsis: Severe sepsis most likely 2/2 acute pyelonephritis rather than acute cholecystitis Immunocompromised patient, on chronic steroids CTA/P: Pericholecystic minimal inflammatory change, small punctate of gas within the gallbladder, 3 mm stone at distal CBD suspicious for acute cho lecystitis ERCP completed on 12/26. Choledocholithiasis found. No pus or signs of cholangitis seen. Biliary stent placed. Patient will need stent removal in 2 months. Can resume Eliquis today 12/30 per GI. Discontinue heparin drip Urine culture growing Proteus. Got treated with Zosyn, completed 7 days. Was initially hypotensive. Was aggressively fluid resuscitated. Received stress dose of steroids. Received pressors. Now hemodynamically stable, off of pressors. Patient is clinically improved (2) Acute pyelonephritis due to bacteria: Patient with UTI symptoms Urine culture Proteus Blood culture negative Covered with Zosyn for cholecystitis as otherwise noted. Finished 7 days of IV Zosyn. No more antibiotics to go home with. Patient is feeling better with no urinary symptoms She has had recurrent UTI in the past 1 year. She has a follow-up appointment with urology coming up soon. She has been advised to keep that follow-up appointment. (3) Choledocholithiasis with acute cholecystitis: - Clinically does not exam with RUQ pain. Pt has not had any alexis colored stools, right upper quadrant pain, or pain with meals. She did have nausea/vomiting nonbloody/nonbilious this morning. No longer feels nauseous at time of bedside assessment CTA/P with pericholecystic inflammatory change, small punctate of gas within the gallbladder, 3 mm stone at distal CBD Right upper quadrant ultrasound shows no evidence of acute cholecystitis. Cholelithiasis seen. ERCP completed 12/26 with removal of stones. Stents placed in CBD and pancreatic duct. Will need to be removed in 2 months. Resumed Eliquis Surgery does not plan on laparoscopic cholecystectomy this admission due to her gram-negative sepsis from UTI. Follow-up with surgery in 1 week for elective cholecystectomy. (4) Atrial fibrillation with rapid ventricular response: Underwent electrical cardioversion 12/13/2022 for A-fib with RVR, converted to sinus rhythm BB was initially held fo hypotension. Now back on beta-danae Eliquis resumed. Patient has had uncontrolled A-fib during this hospitalization. Cardiology decided on electrocardioversion. Underwent 12/31 Currently on amiodarone being discharged on 400 twice daily for 1 week followed by 200 once daily thereafter. Discharge on Eliquis, metoprolol, amiodarone (newly started) (5) (HFpEF) heart failure with preserved ejection fraction: TTE 11/07/2022: EF 65-70% with normal LV wall motion. Moderate concentric LVH. Mild to moderate annular calcification. Mild mitral stenosis. RVSP 30-40 mmHg. Aortic valve sclerosis mild without significant stenosis. Repeat TTE on 12/26 showed normal EF 60 to 65%. No regional wall motion abnormalities. Moderate concentric LVH. On admission, the patient was in severe sepsis. Lasix was held and the patient was given IV fluids. Lasix has been resumed as sepsis has resolved and the patient is hemodynamically stable. Continue home dose of Lasix at 20 mg daily Patient appears euvolemic. No more extra doses of Lasix. During the hospital stay, patient has received few doses of IV Lasix for respiratory comfort and volume overload. (6) Anemia of chronic disease: (7) Chronic kidney disease, stage 3b: Baseline creatinine approximately 1.52.1 Admitting creatinine 1.5 Today creatinine is 1.5 Monitor BMP closely Avoid nephrotoxic medications Renally dose medications, trend (8) Diabetes mellitus with neuropathy: Semaglutide 0.25 mg weekly started 11/25/2022. DDx to include nausea/vomiting/diarrhea Neuropathy treatment with gabapentin 100-300 mg nightly titrated to severity of symptoms by patient SGLT2 inhibitor avoided due to recurrent UTIs with hospitalization Sliding scale insulin ordered (9) Hyperlipidemia: Last LDL 219. Continue PCSK9 as outpatient, patient has been intolerant of statins due to the recurrent severe myalgias (10) Hypertension: Blood pressure is creeping up now that sepsis is improving Resumed Lasix, metoprolol (11) Hypothyroidism: Synthroid 100 mcg daily, continue Variable TFTs as outpatient, but patient has been clinically stable on 100 mcg Synthroid dose defer repeat in the setting of acute illness (12) Rheumatoid arthritis: Will resume p.o. prednisone close to discharge P.o. prednisone held in the face of sepsis (13) TIA involving vertebral artery: (14) Myocardial injury: Admitting troponin 18.7, went up to 171 Suspect demand in setting of sepsis Echo showed no wall motion abnormalities Cardiology had cleared the patient for ERCP Plan CODE STATUS: Full code Total Time Total Time Spent Total Time Spent (In Minutes): 35 Discharge Plan Discharge Items Patient Disposition: Home - Self-Care Reason For Visit: sepsis, ?cholecystitis, uti Discharge Diagnosis: Sepsis from urinary tract infection, rapid atrial fibrillation Activity: Resume your previous activity Non-emergency contact: Primary Care Provider Call non-emergency contact if: your symptoms worsen Follow-up/Referrals: Lillie López CRNP [Nurse Practitioner] - (repeat ERCP in 2 months for removal of stent, our office will reach out to arrange.) Corby Arzola MD [Primary Care Provider] - 01/07/23 3:45 pm (Hospital follow up- will be after your Endocrinology appointment ) Rusty Pedraza MD [Physician] - 01/17/23 9:15 am () Enmanuel Foster PA-C [Physician Retail Marketing Coordinator] - 01/07/23 3:00 pm Otto Fish DO [Physician] - 01/08/23 9:30 am (Follow up in clinic within 1 week of discharge to discuss the possibility of removing your gallbladder as an outpatient) Jaxon Ramos MD [Physician] - 01/06/23 10:40 am Diet: Carb Consistent or DM2 and Heart Healthy Addtl Attending Provider Instructions: Advised to follow-up with PCP in 1 week Advised to follow-up with general surgery in 1 week for laparoscopic cholecystectomy plan Advised to follow-up with GI in 2 months for removal of biliary stent. GI office will call you to schedule appointment Advised to keep your urology appointment on 01/06 Advised to follow-up with cardiology in 2 weeks Pending Studies at Discharge: No Stand-Alone Forms: My [facility] Medications and DC Order Prescriptions: New amiodarone 200 mg Tablet 400 mg PO BIDM Qty: 45 0RF Rx Instructions: Take 2 tablets by mouth twice daily for 1 week, followed by 1 tablet by mouth once daily thereafter Continued levothyroxine 100 mcg tablet 100 mcg PO QAM Qty: 90 3RF prednisone 5 mg tablet 10 mg PO QPM Rx Instructions: CONFIRMED W/ PATIENT Eliquis 5 mg tablet 5 mg PO BID Qty: 180 3RF metoprolol succinate 100 mg tablet extended release 24 hr 100 mg PO BID Qty: 60 0RF albuterol sulfate [Ventolin HFA] 90 mcg/actuation HFA aerosol inhaler 2 puff inhalation QID PRN (Reason: shortness of breath or wheezing) Qty: 8.5 1RF Ozempic 0.25 mg or 0.5 mg(2 mg/1.5 mL) pen injector 0.25 mg subcut ONCE Qty: 1.5 3RF Rx Instructions: Take this med every Friday by way of injection of 0.25 mg in the abdomen. Praluent Pen 75 mg/mL pen injector 75 mg subcut Q14D Qty: 2 2RF Rx Instructions: Inject 75 mg into the abdomen once every 2 weeks. magnesium 250 mg Tablet 250 mg PO QAM cholecalciferol (vitamin D3) [Vitamin D3] 1,000 unit Capsule 1,000 unit PO QAM acetaminophen [Tylenol Extra Strength] 500 mg Tablet 1,000 mg PO Q6H PRN (Reason: Pain) cyclobenzaprine 10 mg tablet 10 mg PO HS omeprazole 40 mg capsule,delayed release(DR/EC) 40 mg PO QAM gabapentin 100 mg capsule 100 - 300 mg PO HS Rx Instructions: TAKE ONE TO THREE CAPSULES BY MOUTH DAILY Advanced Probiotic 625 mg (10 billion cell) capsule 1 cap PO HS furosemide [Lasix] 20 mg tablet 20 mg PO DAILY PRN (Reason: edema of legs) Qty: 30 5RF Discharge Orders: Discharge Order (Routine); Ordered 01/01/23 Ordered By: Yaritza Leon/Other Patient Handouts: Heart Failure: Tracking Your Weight, Sepsis, Heart Failure: Know Your Baselines, AFib Admission Data Admit Date/Time: 12/25/22 15:08 Attending Provider: Yaritza Hunter Admit Provider: Corby Cesar Primary Care Provider: Corby Arzola Other Providers: Corby Cesar ; Rigoberto Villasenor ; Otto Fish ; Raymond Sanders ; Rusty Pedraza Other Interventions: Discharge Summary Assessment (RN) Last Done: 01/01/23 10:35 Coding Level of Care Code 60984 INP/OBS DISCH >30 MIN Diagnoses Sepsis A41.9 Acute pyelonephritis due to bacteria N10; B96.89 Choledocholithiasis with acute cholecystitis K80.42 Atrial fibrillation with rapid ventricular response I48.91 (HFpEF) heart failure with preserved ejection fraction I50.30 Anemia of chronic disease D63.8 Chronic kidney disease, stage 3b N18.32 Diabetes mellitus with neuropathy E11.40 Hyperlipidemia E78.5 Hypertension I10 Hypertension type: essential hypertension Hypothyroidism E03.9 Hypothyroidism type: unspecified Rheumatoid arthritis M06.9 Rheumatoid arthritis location: multiple sites Rheumatoid factor presence: unspecified presence TIA involving vertebral artery G45.0 Myocardial injury I5A
== END 2023-01-01 11:19 | disposition home or self-care (01) | DRG 871 ==
LOC: ED 09:32 → 1E 15:08 → SUATTDRO 15:08 → 1E 16:23 → 2E 12-28 10:58

== ENCOUNTER 2023-01-19 14:24 | Observation (INO) ==
[2023-01-19] MEDS ORDERED: SODIUM CHLORIDE 0.9% 1000ML 1,000 ML IV ONE ×2 (14:34→15:41)
--- NOTE | 2023-01-19 14:41 | Emergency Department Note ---
History of Present Illness General Chief Complaint: GI Assessment Time Seen by Provider: 01/19/23 14:29 History of Present Illness Provider Complaint: abdominal pain Onset (ago): 1 day(s) Pain Consistency: constant Location: epigastric Severity: moderate Maximum Pain Intensity: 7 Current Pain Intensity: 7 Quality: + stabbing, + aching, + sharp, + dull and + burning Relieved By: + nothing Exacerbated By: + nothing Context: + history of similar episodes; no foreign travel, no possible food poisoning, no sick contacts, no recent antibiotic use, no recent juliana mari/procedure or no recent injury Associated Symptoms: + nausea and + chills; no vomiting, no diarrhea, no constipation, no dysuria, no hematemesis, no hematochezia, no melena, no hematuria, no headache and no chest pain Home Medications Medication Instructions Recorded Confirmed Type cholecalciferol (vitamin D3) 25 1,000 unit PO QAM 10/26/18 01/19/23 History mcg (1,000 unit) capsule (Vitamin D3) magnesium 250 mg tablet 250 mg PO HS 10/26/18 01/19/23 History acetaminophen 500 mg tablet 1,000 mg PO Q6H PRN Pain 12/24/18 01/19/23 History (Tylenol Extra Strength) cyclobenzaprine 10 mg tablet 10 mg PO HS 04/21/21 01/19/23 History albuterol sulfate 90 mcg/actuation 2 puff inhalation QID PRN 04/02/22 01/19/23 Rx aerosol inhaler (Ventolin HFA) shortness of breath or wheezing #8.5 grams levothyroxine 100 mcg tablet 100 mcg PO QAM #90 tabs 09/16/22 01/19/23 Rx prednisone 5 mg tablet 10 mg PO QPM 11/13/22 01/19/23 History semaglutide 0.25 mg or 0.5 mg (2 0.25 mg (0.2 mL) subcut ONCE #1.5 11/25/22 01/19/23 Rx mg/1.5 mL) subcutaneous pen mL injector (Ozempic) apixaban 5 mg tablet (Eliquis) 5 mg PO BID #180 tabs 12/02/22 01/19/23 Rx L.acidop,casei,lactis,rham-B.lact,reyes 1 cap PO HS 12/12/22 01/19/23 History 625 mg (10 billion cell) capsule (Advanced Probiotic) gabapentin 100 mg capsule 100 - 300 mg PO HS 12/12/22 01/19/23 History omeprazole 40 mg capsule,delayed 40 mg PO QAM 12/12/22 01/19/23 History release furosemide 20 mg tablet (Lasix) 20 mg PO DAILY PRN edema of legs 12/13/22 01/19/23 Rx #30 tabs alirocumab 75 mg/mL subcutaneous 75 mg subcut Q14D #2 mL 12/23/22 01/19/23 Rx pen injector (Praluent Pen) sulfamethoxazole 400 1 tab PO DAILY #90 tabs 01/06/23 01/19/23 Rx mg-trimethoprim 80 mg tablet (Bactrim) insulin glargine 100 unit/mL (3 5 unit (0.05 mL) subcut DAILY #15 01/07/23 01/19/23 Rx mL) subcutaneous pen (Lantus mL Solostar U-100 Insulin) pen needle, diabetic 31 gauge x #100 ea 01/07/23 01/08/23 Rx 1/4" metoprolol succinate 100 mg 100 mg PO BID #180 tabs 01/13/23 01/19/23 Rx tablet,extended release 24 hr amiodarone 200 mg tablet 200 mg PO HS 01/19/23 01/19/23 History Allergies Allergy/AdvReac Type Severity Reaction Status Date / Time tetracycline Allergy Severe RASH ON Verified 01/16/23 13:30 FACE methenamine Allergy Intermediate Swelling Verified 01/16/23 13:30 of Lip/Tongue/Throat Szfvvpm-QIH-QhB Reductase AdvReac Intermediate LE edema Verified 01/16/23 13:30 Inhibitor [Mrvaazq-Myi-Bei Reductase Inhibitor] oxycodone AdvReac Mild Drowsy Verified 01/16/23 13:30 Past Med/Surg History Medical History (HFpEF) heart failure with preserved ejection fraction Acute congestive heart failure Acute epigastric pain 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--per pt due to clot, cleared from neurology--follows with PCP--has slight weakness on left side Acute on chronic kidney failure Acute respiratory failure with hypoxia AISHWARYA (acute kidney injury) Anemia of chronic disease Anxiety Bilateral leg edema Chronic kidney disease, stage 3b Diabetes mellitus type II, controlled Elevated lactic acid level Elevated troponin Exertional chest pain GERD (gastroesophageal reflux disease) History of COVID-19 10/04/21--hospitalized @ [facility] for 9 days--no issues now History of MRSA infection lumbar surgical incision s/p vanco/ceftriaxone/bactrim per 04/2019 [facility] discharge summary History of recent blood transfusion 09/18/22 @ [facility] Hospital discharge follow-up Hyperlipidemia Hypertension Hypotension Hypothyroidism Immunosuppression due to drug therapy Lumbar radiculopathy Myocardial injury Paroxysmal atrial fibrillation Recurrent UTI Rheumatoid arthritis Sepsis recent hospitalization 09/17/22 @ [facility] due to UTI Spinal stenosis Stenosis of left internal carotid artery 50-69% stenosis of left ICA per 04/2021 neck CTA Stenosis of left vertebral artery Approximately 90% stenosis within V4 segment of left vertebral artery per 04/21/2021 neck CTA TIA involving vertebral artery Given TPA on 04/21/2021 with resolution of symptoms. Surgical History History of x2 History of hysterectomy total History of lumbar surgery Lumbar Spine Wound Revision 05/2019 Dr. Mane @ [facility] History of total left knee replacement Hx of tonsillectomy Status post laminectomy with spinal fusion L2-L5 laminectomy/fusion: 12/24/18: Grade view 1, MAC#3, ETT 7.0 Family History Father Diabetes Lung cancer Cancer Hypertension Mother Malignant neoplasm of brain Diabetes Brain tumor Cancer Hypertension Aunt Breast cancer Sister Hypertension Other No family history of adverse response to anesthesia Denies family history of Ovarian cancer Prostate cancer Myocardial infarction Colorectal cancer Social History Smoking Status: Never smoker Second Hand Exposure: No; Hx Alcohol Use: Yes Alcohol type: wine Alcohol Intake Frequency: 2-4 x/Month Hx Substance Use: No Preferred Language: Kiswahili Communication Ability: Effective Visual Impairment: No Limitations Hearing Ability: Normal Novelty Dipper Required: No Beliefs That Will Affect Care: None marital status: Current Living Situation: Spouse Current Living Situation Comment: 1 level home current occupational status: retired How many Children do You have: 2 other: 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 Feels Safe at Home: Yes Childhood Exposure to Second-Hand Smoke: Yes caffeine: Yes Dental Care, Regularly: Yes Physical Activity Frequency: 5-6 Times per Week Physical Activity Frequency Comment: gym Seatbelt Use: always Sunscreen Use: Yes Do you think of yourself as: straight/heterosexual Assistive Devices: Cane and Walker Physical Exam Vital Signs: Vital Signs - 24 hr 01/19/23 14:34 01/19/23 14:37 01/19/23 14:36 Temperature 36.4 C L Temperature Source Oral Pulse Rate 89 85 88 Pulse Rate [Apical ] Pulse Rate from Sp O2 Sensor 83 Pulse Rhythm Irregular Pulse Strength Normal Respiratory Rate 16 15 Respiratory Effort / Characteristics Non-Labored Respiratory Depth Normal Respiratory Patter n Regular Blood Pressure 116/54 L Blood Pressure [Le ft Arm] Blood Pressure Rebecca n 74 Blood Pressure Rebecca n [Left Arm] Blood Pressure Pos ition Lying Blood Pressure Pos ition [Left Arm] Pulse Oximetry 94 96 Oxygen Delivery Me thod Room Air Sepsis Recent Feve r Within 48 Hours No Sepsis New/Unexpla ined Change in Men mumtaz Status N/A Sepsis Action Take n by Nursing No Action Required 01/19/23 14:40 01/19/23 14:50 01/19/23 15:00 Temperature Temperature Source Pulse Rate 84 83 81 Pulse Rate [Apical ] Pulse Rate from Sp O2 Sensor 84 Pulse Rhythm Pulse Strength Respiratory Rate 14 17 15 Respiratory Effort / Characteristics Respiratory Depth Respiratory Patter n Blood Pressure Blood Pressure [Le ft Arm] Blood Pressure Rebecca n Blood Pressure Rebecca n [Left Arm] Blood Pressure Pos ition Blood Pressure Pos ition [Left Arm] Pulse Oximetry 95 Oxygen Delivery Me thod Sepsis Recent Feve r Within 48 Hours Sepsis New/Unexpla ined Change in Men mumtaz Status Sepsis Action Take n by Nursing 01/19/23 15:10 01/19/23 15:20 01/19/23 15:30 Temperature Temperature Source Pulse Rate 82 82 79 Pulse Rate [Apical ] Pulse Rate from Sp O2 Sensor Pulse Rhythm Pulse Strength Respiratory Rate 14 17 17 Respiratory Effort / Characteristics Respiratory Depth Respiratory Patter n Blood Pressure Blood Pressure [Le ft Arm] Blood Pressure Rebecca n Blood Pressure Rebecca n [Left Arm] Blood Pressure Pos ition Blood Pressure Pos ition [Left Arm] Pulse Oximetry Oxygen Delivery Me thod Sepsis Recent Feve r Within 48 Hours Sepsis New/Unexpla ined Change in Men mumtaz Status Sepsis Action Take n by Nursing 01/19/23 15:40 01/19/23 16:00 01/19/23 16:16 Temperature Temperature Source Pulse Rate 80 83 Pulse Rate [Apical ] 83 Pulse Rate from Sp O2 Sensor Pulse Rhythm Pulse Strength Respiratory Rate 15 16 18 Respiratory Effort / Characteristics Non-Labored Respiratory Depth Normal Respiratory Patter n Regular Blood Pressure Blood Pressure [Le ft Arm] 118/75 Blood Pressure Rebecca n Blood Pressure Rebecca n [Left Arm] 89 Blood Pressure Pos ition Blood Pressure Pos ition [Left Arm] Lying Pulse Oximetry 96 96 Oxygen Delivery Me thod Room Air Sepsis Recent Feve r Within 48 Hours Sepsis New/Unexpla ined Change in Men mumtaz Status Sepsis Action Take n by Nursing 01/19/23 16:08 01/19/23 16:08 01/19/23 16:10 Temperature Temperature Source Pulse Rate 81 84 Pulse Rate [Apical ] Pulse Rate from Sp O2 Sensor 83 Pulse Rhythm Pulse Strength Respiratory Rate 14 17 Respiratory Effort / Characteristics Respiratory Depth Respiratory Patter n Blood Pressure 100/66 Blood Pressure [Le ft Arm] Blood Pressure Rebecca n 77 Blood Pressure Rebecca n [Left Arm] Blood Pressure Pos ition Blood Pressure Pos ition [Left Arm] Pulse Oximetry 94 Oxygen Delivery Me thod Sepsis Recent Feve r Within 48 Hours Sepsis New/Unexpla ined Change in Men mumtaz Status Sepsis Action Take n by Nursing 01/19/23 16:15 01/19/23 16:15 01/19/23 16:20 Temperature Temperature Source Pulse Rate 82 82 Pulse Rate [Apical ] Pulse Rate from Sp O2 Sensor 82 83 Pulse Rhythm Pulse Strength Respiratory Rate 16 16 Respiratory Effort / Characteristics Respiratory Depth Respiratory Patter n Blood Pressure 118/75 Blood Pressure [Le ft Arm] Blood Pressure Rebecca n 89 Blood Pressure Rebecca n [Left Arm] Blood Pressure Pos ition Blood Pressure Pos ition [Left Arm] Pulse Oximetry 96 96 Oxygen Delivery Me thod Sepsis Recent Feve r Within 48 Hours Sepsis New/Unexpla ined Change in Men mumtaz Status Sepsis Action Take n by Nursing 01/19/23 16:30 01/19/23 16:30 01/19/23 16:40 Temperature Temperature Source Pulse Rate 80 83 Pulse Rate [Apical ] Pulse Rate from Sp O2 Sensor 80 83 Pulse Rhythm Pulse Strength Respiratory Rate 15 17 Respiratory Effort / Characteristics Respiratory Depth Respiratory Patter n Blood Pressure 103/58 L Blood Pressure [Le ft Arm] Blood Pressure Rebecca n 73 Blood Pressure Rebecca n [Left Arm] Blood Pressure Pos ition Blood Pressure Pos ition [Left Arm] Pulse Oximetry 96 Oxygen Delivery Me thod Sepsis Recent Feve r Within 48 Hours Sepsis New/Unexpla ined Change in Men mumtaz Status Sepsis Action Take n by Nursing 01/19/23 17:00 01/19/23 17:00 01/19/23 17:09 Temperature Temperature Source Pulse Rate 81 82 Pulse Rate [Apical ] Pulse Rate from Sp O2 Sensor Pulse Rhythm Pulse Strength Respiratory Rate 13 15 Respiratory Effort / Characteristics Respiratory Depth Respiratory Patter n Blood Pressure 103/73 Blood Pressure [Le ft Arm] Blood Pressure Rebecca n 83 Blood Pressure Rebecca n [Left Arm] Blood Pressure Pos ition Blood Pressure Pos ition [Left Arm] Pulse Oximetry Oxygen Delivery Me thod Sepsis Recent Feve r Within 48 Hours Sepsis New/Unexpla ined Change in Men mumtaz Status Sepsis Action Take n by Nursing 01/19/23 17:09 01/19/23 17:10 01/19/23 17:20 Temperature Temperature Source Pulse Rate 82 80 Pulse Rate [Apical ] Pulse Rate from Sp O2 Sensor 80 Pulse Rhythm Pulse Strength Respiratory Rate 14 13 Respiratory Effort / Characteristics Respiratory Depth Respiratory Patter n Blood Pressure 95/66 L Blood Pressure [Le ft Arm] Blood Pressure Rebecca n 75 Blood Pressure Rebecca n [Left Arm] Blood Pressure Pos ition Blood Pressure Pos ition [Left Arm] Pulse Oximetry 95 Oxygen Delivery Me thod Sepsis Recent Feve r Within 48 Hours Sepsis New/Unexpla ined Change in Men mumtaz Status Sepsis Action Take n by Nursing 01/19/23 17:30 01/19/23 17:30 01/19/23 17:40 Temperature Temperature Source Pulse Rate 81 81 Pulse Rate [Apical ] Pulse Rate from Sp O2 Sensor 81 83 Pulse Rhythm Pulse Strength Respiratory Rate 15 13 Respiratory Effort / Characteristics Respiratory Depth Respiratory Patter n Blood Pressure 98/73 L Blood Pressure [Le ft Arm] Blood Pressure Rebecca n 81 Blood Pressure Rebecca n [Left Arm] Blood Pressure Pos ition Blood Pressure Pos ition [Left Arm] Pulse Oximetry Oxygen Delivery Me thod Sepsis Recent Feve r Within 48 Hours Sepsis New/Unexpla ined Change in Men mumtaz Status Sepsis Action Take n by Nursing 01/19/23 17:50 Temperature Temperature Source Pulse Rate 79 Pulse Rate [Apical ] Pulse Rate from Sp O2 Sensor 80 Pulse Rhythm Pulse Strength Respiratory Rate 12 Respiratory Effort / Characteristics Respiratory Depth Respiratory Patter n Blood Pressure Blood Pressure [Le ft Arm] Blood Pressure Rebecca n Blood Pressure Rebecca n [Left Arm] Blood Pressure Pos ition Blood Pressure Pos ition [Left Arm] Pulse Oximetry 93 Oxygen Delivery Me thod Sepsis Recent Feve r Within 48 Hours Sepsis New/Unexpla ined Change in Men mumtaz Status Sepsis Action Take n by Nursing Physical Exam: Physical Exam GENERAL: She is oriented to person, place, and time. She appears well-developed and well-nourished. She does not appear distressed. HENT: Exam performed. -Head: Normocephalic and atraumatic. -Right Ear: External ear normal. No mastoid erythema -Left Ear: External ear normal. No mastoid erythema -Mouth/Throat: The oropharynx is clear and moist. No trismus in the jaw. No dental abscesses or uvula swelling. No oropharyngeal exudate or tonsillar absces ses. EYES: Conjunctivae and EOM are normal. Pupils are equal, round, and reactive to light. Right eye exhibits no discharge. Left eye exhibits no discharge. No scleral icterus. NECK: Normal range of motion. Neck supple. No JVD present. No spinous process tenderness present No tracheal deviation and normal range of motion present. CV: Normal rate, regular rhythm, normal heart sounds and intact distal pulses. There is no peripheral edema. Palpable radial pulses bue. PULM/CHEST: Effort normal and breath sounds normal. No respiratory distress. No stridor. She has no wheezes. She has no rales. -Chest Wall: She exhibits no tenderness. ABD: The abdomen is soft. She has no distension. There is tenderness to palpation of the epigastric area. There is no rebound, no guarding, no Caraballo's sign and no tenderness at McBurney's point. MUSC/SKEL: Normal range of motion. There is no peripheral edema, tenderness or deformity. LYMPH: No cervical adenopathy. NEURO: Motor and sensation grossly intact. SKIN: Skin is warm and dry. She is not diaphoretic. PSYCH: She has a normal mood and affect. Behavior is normal. Judgment and thought content normal. Course Course 1429: The patient was evaluated in room A10. A complete history and physical exam was performed Cardiac monitoring: An order was placed for continuous cardiac monitoring. The monitor shows a rate of 80 with sinus rhythm interpreted by me 1549: Vital signs stable. Patient has a lactic acid of 3.6 notified by laboratory. External medical records reviewed and the patient was treated with Zosyn for 7 days when she was admitted to the hospital in December. The patient's urine culture did grow out Proteus which was pansensitive. Patient be treated with Rocephin in the emergency department good sensitivities to Rocephin from previous urine cultures. Blood cultures from previous admission were negative. 1700: Vital signs stable. White blood cell count 10.37 creatinine 1.83 urinalysis is pending. Patient was treated with Rocephin. Imaging showed that the common bile duct stent is in place with pneumobilia as expected no biliary ductal dilatation no CT evidence for pancreatitis cholelithiasis but no gallbladder distention no suggestive of acute cholecystitis diverticulitis without diverticulitis. Patient will be admitted to the [facility] team for sepsis given her previous histories. 1850: Vital signs stable. Urine does appear to be the source of the patient's infection. 1914: Vital signs stable. Lactic acid has not improved much despite adequate fluid resuscitation 3.7-3.6 despite 2 L of IV fluids. Blood pressure stable no need for vasopressors at this time. Patient admitted for sepsis. Administered Medications Sodium Chloride (Nss 1000ml) 1,000 mls @ 125 mls/hr IV .Q8H NASRA Stop: 02/18/23 16:59 Last Admin: 01/19/23 19:08 Dose: 125 mls/hr Documented By: LAURA Discontinued Medications Sodium Chloride (Nss 1000ml) 1,000 mls @ 999 mls/hr IV .Q1H1M ONE Stop: 01/19/23 15:34 Last Infusion: 01/19/23 15:56 Dose: 0 mls/hr Documented By: Admin: 01/19/23 14:41 Dose: 999 mls/hr Documented By: LAURA Sodium Chloride (Nss 1000ml) 1,000 mls @ 999 mls/hr IV .Q1H1M ONE Stop: 01/19/23 16:41 Last Infusion: 01/19/23 20:05 Dose: 0 mls/hr Documented By: Admin: 01/19/23 15:30 Dose: 999 mls/hr Documented By: LAURA Ceftriaxone Sodium 1,000 mg/ (Dextrose) 50 mls @ 100 mls/hr IV NOW STA Stop: 01/19/23 16:16 Last Infusion: 01/19/23 17:03 Dose: 0 mls/hr Documented By: Admin: 01/19/23 16:33 Dose: 100 mls/hr Documented By: LAURA Metronidazole (Metronidazole 500 Mg/100 Ml Bag) Confirm Administered Dose 500 mg IV .STK-MED ONE Stop: 01/19/23 17:57 Last Admin: 01/19/23 19:08 Dose: 500 mg Documented By: LAURA Morphine Sulfate (Morphine Sulfate 4 Mg/Ml 1 Ml Carp\\Vial) 4 mg IV NOW STA Stop: 01/19/23 16:56 Last Admin: 01/19/23 17:11 Dose: 4 mg Documented By: LAURA Medical Decision Making Medical Records Attestation: I reviewed the patient's medical records. External medical records were reviewed. Patient was admitted to the hospital from December 25 to January 01, 2023. On December 25 the patient presented to the emergency department and was found to have sepsis secondary to an evolving cholecystitis and possible urinary tract infection. Patient was given fluid resuscitation in the emergency department and started on Levophed. The patient was admitted to the ICU and during her stay she was seen by GI Dr. Villasenor. He performed an endoscopy which was negative he then performed an ERCP on December 26, 2022 where he did a sphincterotomy and placed a 5 Malay by 9 cm plastic pancreatic stent in the ventral pancreatic duct. Patient is to have stent removed in 2 months. The patient was also treated for pyelonephritis which was thought to be contributing to her sepsis. The patient's baseline creatinine is approximately 1.5-2.1. Laboratory Data Attestation: I reviewed the patient's lab results. 01/19/23 15:02 01/19/23 15:02 Lab Results 01/19/23 01/19/23 01/19/23 Range/Units 15:02 15:02 15:02 WBC 10.37 (4.8-10.8) K/ul RBC 3.42 L (4.20-5.40) M/uL Hgb 9.0 L (12.0-16.0) g/dl Hct 30.9 L (37.0-47.0) % MCV 90.4 (80.0-100.0) fL MCH 26.3 (25.0-34.0) pg MCHC 29.1 L (32.0-36.0) g/dL RDW Std Deviation 51.7 H (36.4-46.3) fL RDW Coeff of Sumaya 15.8 H (11.5-14.5) % Plt Count 253 (130-400) K/uL MPV 10.3 (9.4-12.4) fL Immature Gran % (Auto) 1.4 % Neut % (Auto) 95.9 % Lymph % (Auto) 1.4 % Runnels % (Auto) 0.5 % Eos % (Auto) 0.6 % Baso % (Auto) 0.2 % Neut # (Auto) 9.96 H (1.40-6.50) K/uL Lymph # (Auto) 0.14 L (1.2-3.4) K/uL Runnels # (Auto) 0.05 L (0.11-0.59) K/uL Eos # (Auto) 0.06 (0-0.50) K/uL Baso # (Auto) 0.02 (0-0.2) K/uL Immature Gran # (Auto) 0.14 (0.01-0.20) K/uL Toxic Vacuolation 2+ Polychromasia 1+ PT 10.9 (9.0-12.0) Seconds INR 1.0 (0.9-1.1) APTT < 20.0 L (21.0-31.0) Seconds PTT Ratio 0.7 Sodium (136-145) mmol/L Potassium (3.5-5.1) mmol/L Chloride (98-107) mmol/L Carbon Dioxide (21-32) mmol/L Anion Gap (3-11) BUN (6-23) mg/dl Creatinine (0.6-1.2) mg/dl Est Cr Clr Drug Dosing ml/min Est GFR ( Amer) ml/min Est GFR (Non-Af Amer) ml/min BUN/Creatinine Ratio (10-20) Glucose (70-99(Fasting)) mg/dl Lactate 3.6 H* (0.4-2.0) mmol/L Calcium (8.6-10.3) mg/dl Total Bilirubin (0.2-1.0) mg/dl Direct Bilirubin (0-0.2) mg/dl AST (13-39) U/L ALT (7-52) U/L Alkaline Phosphatase (34-104) U/L Total Protein (6.0-8.3) gm/dl Albumin (3.4-5.0) gm/dl Lipase (11-82) U/L Procalcitonin (0-0.5) ng/ml Random Cortisol mcg/dl Urine Color Urine Appearance (Clear) Urine pH (4.5-7.5) Ur Specific Spearfish (1.000-1.030) Urine Protein (Negative) Urine Glucose (UA) (Negative) Urine Ketones (Negative) Urine Blood (Negative) Urine Nitrite (Negative) Urine Bilirubin (Negative) Urine Urobilinogen (Negative) Ur Leukocyte Esterase (Negative) Urine RBC (0-4) /hpf Urine WBC (0-5) /hpf Ur Epithelial Cells (0-5) /lpf Urine Bacteria (Negative) 01/19/23 01/19/23 01/19/23 Range/Units 15:02 15:10 15:10 WBC (4.8-10.8) K/ul RBC (4.20-5.40) M/uL Hgb (12.0-16.0) g/dl Hct (37.0-47.0) % MCV (80.0-100.0) fL MCH (25.0-34.0) pg MCHC (32.0-36.0) g/dL RDW Std Deviation (36.4-46.3) fL RDW Coeff of Sumaya (11.5-14.5) % Plt Count (130-400) K/uL MPV (9.4-12.4) fL Immature Gran % (Auto) % Neut % (Auto) % Lymph % (Auto) % Runnels % (Auto) % Eos % (Auto) % Baso % (Auto) % Neut # (Auto) (1.40-6.50) K/uL Lymph # (Auto) (1.2-3.4) K/uL Runnels # (Auto) (0.11-0.59) K/uL Eos # (Auto) (0-0.50) K/uL Baso # (Auto) (0-0.2) K/uL Immature Gran # (Auto) (0.01-0.20) K/uL Toxic Vacuolation Polychromasia PT (9.0-12.0) Seconds INR (0.9-1.1) APTT (21.0-31.0) Seconds PTT Ratio Sodium 140 (136-145) mmol/L Potassium 3.6 (3.5-5.1) mmol/L Chloride 107 (98-107) mmol/L Carbon Dioxide 23 (21-32) mmol/L Anion Gap 10 (3-11) BUN 35 H (6-23) mg/dl Creatinine 1.83 H (0.6-1.2) mg/dl Est Cr Clr Drug Dosing 31.6 ml/min Est GFR ( Amer) 32.3 ml/min Est GFR (Non-Af Amer) 27.9 ml/min BUN/Creatinine Ratio 19.1 (10-20) Glucose 124 H (70-99(Fasting)) mg/dl Lactate (0.4-2.0) mmol/L Calcium 8.0 L (8.6-10.3) mg/dl Total Bilirubin 0.3 (0.2-1.0) mg/dl Direct Bilirubin 0.0 (0-0.2) mg/dl AST 16 (13-39) U/L ALT 14 (7-52) U/L Alkaline Phosphatase 51 (34-104) U/L Total Protein 5.8 L (6.0-8.3) gm/dl Albumin 3.6 (3.4-5.0) gm/dl Lipase 68 (11-82) U/L Procalcitonin 11.37 H (0-0.5) ng/ml Random Cortisol 9.13 mcg/dl Urine Color Urine Appearance (Clear) Urine pH (4.5-7.5) Ur Specific Spearfish (1.000-1.030) Urine Protein (Negative) Urine Glucose (UA) (Negative) Urine Ketones (Negative) Urine Blood (Negative) Urine Nitrite (Negative) Urine Bilirubin (Negative) Urine Urobilinogen (Negative) Ur Leukocyte Esterase (Negative) Urine RBC (0-4) /hpf Urine WBC (0-5) /hpf Ur Epithelial Cells (0-5) /lpf Urine Bacteria (Negative) 01/19/23 01/19/23 Range/Units 17:00 17:10 WBC (4.8-10.8) K/ul RBC (4.20-5.40) M/uL Hgb (12.0-16.0) g/dl Hct (37.0-47.0) % MCV (80.0-100.0) fL MCH (25.0-34.0) pg MCHC (32.0-36.0) g/dL RDW Std Deviation (36.4-46.3) fL RDW Coeff of Sumaya (11.5-14.5) % Plt Count (130-400) K/uL MPV (9.4-12.4) fL Immature Gran % (Auto) % Neut % (Auto) % Lymph % (Auto) % Runnels % (Auto) % Eos % (Auto) % Baso % (Auto) % Neut # (Auto) (1.40-6.50) K/uL Lymph # (Auto) (1.2-3.4) K/uL Runnels # (Auto) (0.11-0.59) K/uL Eos # (Auto) (0-0.50) K/uL Baso # (Auto) (0-0.2) K/uL Immature Gran # (Auto) (0.01-0.20) K/uL Toxic Vacuolation Polychromasia PT (9.0-12.0) Seconds INR (0.9-1.1) APTT (21.0-31.0) Seconds PTT Ratio Sodium (136-145) mmol/L Potassium (3.5-5.1) mmol/L Chloride (98-107) mmol/L Carbon Dioxide (21-32) mmol/L Anion Gap (3-11) BUN (6-23) mg/dl Creatinine (0.6-1.2) mg/dl Est Cr Clr Drug Dosing ml/min Est GFR ( Amer) ml/min Est GFR (Non-Af Amer) ml/min BUN/Creatinine Ratio (10-20) Glucose (70-99(Fasting)) mg/dl Lactate 3.7 H* (0.4-2.0) mmol/L Calcium (8.6-10.3) mg/dl Total Bilirubin (0.2-1.0) mg/dl Direct Bilirubin (0-0.2) mg/dl AST (13-39) U/L ALT (7-52) U/L Alkaline Phosphatase (34-104) U/L Total Protein (6.0-8.3) gm/dl Albumin (3.4-5.0) gm/dl Lipase (11-82) U/L Procalcitonin (0-0.5) ng/ml Random Cortisol mcg/dl Urine Color Yellow Urine Appearance Slightly Cloudy (Clear) Urine pH 6.5 (4.5-7.5) Ur Specific Spearfish 1.015 (1.000-1.030) Urine Protein 2+ H (Negative) Urine Glucose (UA) Negative (Negative) Urine Ketones Trace H (Negative) Urine Blood Trace-intact H (Negative) Urine Nitrite Positive A (Negative) Urine Bilirubin Negative (Negative) Urine Urobilinogen Negative (Negative) Ur Leukocyte Esterase 3+ H (Negative) Urine RBC 0-4 (0-4) /hpf Urine WBC >30 H (0-5) /hpf Ur Epithelial Cells 0-5 (0-5) /lpf Urine Bacteria 2+ H (Negative) Imaging Data Attestation: I personally reviewed and interpreted this imaging study as foll ows: My Impression: Chest x-ray negative. Airway clear. No pneumothorax. No consolidation. No cardiomegaly or cephalization.. No free air under the diaphragm. No fractures of the skeletal structures. Radiologist's Impression: Chest X-Ray 01/19/23 14:35 XR chest 1V portable CLINICAL HISTORY: Sepsis. COMPARISON STUDY: Chest radiograph and chest CT December 25, 2022. FINDINGS: There is no pneumothorax or pleural effusion. No consolidation is identified to suggest pneumonia. Minimal left basilar opacity favors atelectasis. Cardiomegaly is unchanged. There is no evidence for pulmonary edema. IMPRESSION: No acute cardiopulmonary findings. ACT 112: Negative or not required by law. Electronically signed by: Gus Ojeda M.D. 01/19/2023 3:27 PM Abdomen/Pelvis CT 01/19/23 14:56 CT OF THE ABDOMEN AND PELVIS WITHOUT CONTRAST CLINICAL HISTORY: Epigastric pain. COMPARISON STUDY: CT of the abdomen and pelvis and right upper quadrant ultrasound December 25, 2022. TECHNIQUE: Axial images of the abdomen and pelvis were obtained without IV contrast. Images were reviewed in the axial, sagittal, and coronal planes. Automated exposure control was utilized for the study. A dose lowering technique was utilized adhering to the principles of ALARA. FINDINGS: No significant abnormality is identified within the lung bases. No pneumatosis, free air or portal venous gas is present. Several gallstones within the gallbladder noted. Minimal stranding adjacent to the gallbladder is unchanged. The gallbladder is not significantly distended. There is a small amount of gas within the gallbladder. In addition, there is a small amount of pneumobilia following sphincterotomy with placement of a common bile duct stent. There is no biliary ductal dilatation. The pancreatic stent has likely passed spontaneously. There is no peripancreatic stranding. No peripancreatic fluid collections are present. Probable hepatic steatosis. Evaluation of the abdomen and pelvis is suboptimal on this unenhanced exam. Spleen, adrenal glands and left kidney are unremarkable. There are numerous small right renal calculi. There are no ureteral calculi. No hydronephrosis. There is no evidence for a bowel obstruction. Extensive sigmoid diverticulosis is present without evidence for acute diverticulitis. The appendix is normal. T12 compression fracture is unchanged. Postoperative findings within the spine are again noted. There is no lymphadenopathy. There is no abscess within the abdomen or pelvis. IMPRESSION: 1. Common bile duct stent in place. Pneumobilia, as expected. No biliary ductal dilatation. No CT evidence for acute pancreatitis. Pancreatic stent likely passed spontaneously. 2. Cholelithiasis. No gallbladder distention. No change in appearance minimal stranding adjacent to the gallbladder. Given stability, the findings are not strongly suggestive of acute cholecystitis although a hepatobiliary scan could be obtained as indicated. 3. Sigmoid diverticulosis. No evidence for acute diverticulitis. No bowel obst ruction. 4. Right-sided nephrolithiasis. ACT 112: Negative or not required by law. Electronically signed by: Gus Ojeda M.D. 01/19/2023 4:40 PM ECG Data Attestation: I personally reviewed and interpreted this ECG as follows: Indication: abdominal pain Rate (beats per minute): 84 Rhythm: normal sinus Findings: no ST depression, no ST elevation or no prolonged QT MDM Narrative 1429: The patient was evaluated in room A10. A complete history and physical exam was performed Cardiac monitoring: An order was placed for continuous cardiac monitoring. The monitor shows a rate of 80 with sinus rhythm interpreted by me 1549: Vital signs stable. Patient has a lactic acid of 3.6 notified by laboratory. External medical records reviewed and the patient was treated with Zosyn for 7 days when she was admitted to the hospital in December. The patient's urine culture did grow out Proteus which was pansensitive. Patient be treated with Rocephin in the emergency department good sensitivities to Rocephin from previous urine cultures. Blood cultures from previous admission were negative. 1700: Vital signs stable. White blood cell count 10.37 creatinine 1.83 urinalysis is pending. Patient was treated with Rocephin. Imaging showed that the common bile duct stent is in place with pneumobilia as expected no biliary ductal dilatation no CT evidence for pancreatitis cholelithiasis but no gallbladder distention no suggestive of acute cholecystitis diverticulitis without diverticulitis. Patient will be admitted to the [facility] team for sepsis given her previous histories. 1850: Vital signs stable. Urine does appear to be the source of the patient's i nfection. 1914: Vital signs stable. Lactic acid has not improved much despite adequate fluid resuscitation 3.7-3.6 despite 2 L of IV fluids. Blood pressure stable no need for vasopressors at this time. Patient admitted for sepsis. Impression & Plan Sepsis, Acute UTI Critical Care Time Critical Care Time: Yes Total Critical Care Time: 45 I have personally spent greater than 45 minutes of critical care time in the direct management of this patient. This includes bedside care, interpretation of diagnostic studies, and testing, discussion with consultants, patient, and family members, and other required patient management activities. This 45 minutes is in excess of all separately billable procedures. Discharge Plan Visit Data Chief Complaint: GI Assessment ED Provider: Reyes Arguello Discharge Problem: Sepsis, Acute UTI Patient Disposition: Admitted As Inpatient
--- NOTE | 2023-01-19 15:28 | XRay Report ---
XR chest 1V portable CLINICAL HISTORY: Sepsis. COMPARISON STUDY: Chest radiograph and chest CT December 25, 2022. FINDINGS: There is no pneumothorax or pleural effusion. No consolidation is identified to suggest pne umonia. Minimal left basilar opacity favors atelectasis. Cardiomegaly is unchanged. There is no evide nce for pulmonary edema. IMPRESSION: No acute cardiopulmonary findings. ACT 112: Negative or not required by law. Electronically signed by: Gus Ojeda M.D. 01/19/2023 3:27 PM
[2023-01-19 15:33] LABS: Hematocrit (blood only) 30.9 % (37.0-47.0); Mean Corpuscular Hemoglobin 26.3 pg (25.0-34.0); Mean Corpuscular Hgb Conc 29.1 g/dL (32.0-36.0); Mean Corpuscular Volume 90.4 fL (80.0-100.0); Mean Platelet Volume 10.3 fL (9.4-12.4); Platelet Count 253 K/uL (130-400); RDW Coefficient of Variation 15.8 % (11.5-14.5); RDW Standard Deviation 51.7 fL (36.4-46.3); Red Blood Count 3.42 M/uL (4.20-5.40); White Blood Count 10.37 K/ul (4.8-10.8)
[2023-01-19] MEDS ORDERED: cefTRIAXone SODIUM 1,000 MG in DEXTROSE 5% AD-VAN 50 ML IV STA (15:47)
[2023-01-19 16:03] LABS: Partial Thromboplastin Ratio 0.7; Prothrombin Time 10.9 Seconds (9.0-12.0)
[2023-01-19 16:06] LABS: Albumin Level 3.6 gm/dl (3.4-5.0); BUN Creatinine Ratio 19.1 (10-20); Basophils # (auto) 0.02 K/uL (0-0.2); Basophils % (auto) 0.2 %; Bilirubin,Total 0.3 mg/dl (0.2-1.0); Creatinine Clr Calc Pharmacy 31.6 ml/min; Eosinophils # (auto) 0.06 K/uL (0-0.50); Eosinophils % (auto) 0.6 %; Est GFR (African American) 32.3 ml/min; Est GFR (Non-African American) 27.9 ml/min; Immature Granulocytes # (auto) 0.14 K/uL (0.01-0.20); Immature Granulocytes % (auto) 1.4 %; Lymphocytes # (auto) 0.14 K/uL (1.2-3.4); Lymphocytes % (auto) 1.4 %; Monocytes # (auto) 0.05 K/uL (0.11-0.59); Monocytes % (auto) 0.5 %; Neutrophils # (auto) 9.96 K/uL (1.40-6.50); Neutrophils % (auto) 95.9 %; Polychromasia 1+; Potassium 3.6 mmol/L (3.5-5.1); Total Protein 5.8 gm/dl (6.0-8.3); Toxic Vacuolation 2+
[2023-01-19 16:28] LABS: Partial Thromboplastin Time < 20.0 Seconds (21.0-31.0)
--- NOTE | 2023-01-19 16:42 | CT Scan Report ---
CT OF THE ABDOMEN AND PELVIS WITHOUT CONTRAST CLINICAL HISTORY: Epigastric pain. COMPARISON STUDY: CT of the abdomen and pelvis and right upper quadrant ultrasound December 25, 2022. TECHNIQUE: Axial images of the abdomen and pelvis were obtained without IV contrast. Images were revi ewed in the axial, sagittal, and coronal planes. Automated exposure control was utilized for the chuck dy. A dose lowering technique was utilized adhering to the principles of ALARA. FINDINGS: No significant abnormality is identified within the lung bases. No pneumatosis, free air or portal venous gas is present. Several gallstones within the gallbladder noted. Minimal stranding adj acent to the gallbladder is unchanged. The gallbladder is not significantly distended. There is a sma ll amount of gas within the gallbladder. In addition, there is a small amount of pneumobilia followin g sphincterotomy with placement of a common bile duct stent. There is no biliary ductal dilatation. T he pancreatic stent has likely passed spontaneously. There is no peripancreatic stranding. No peripan creatic fluid collections are present. Probable hepatic steatosis. Evaluation of the abdomen and pelv is is suboptimal on this unenhanced exam. Spleen, adrenal glands and left kidney are unremarkable. Th ere are numerous small right renal calculi. There are no ureteral calculi. No hydronephrosis. There i s no evidence for a bowel obstruction. Extensive sigmoid diverticulosis is present without evidence f or acute diverticulitis. The appendix is normal. T12 compression fracture is unchanged. Postoperative findings within the spine are again noted. There is no lymphadenopathy. There is no abscess within t he abdomen or pelvis. IMPRESSION: 1. Common bile duct stent in place. Pneumobilia, as expected. No biliary ductal dilatation. No CT roly dence for acute pancreatitis. Pancreatic stent likely passed spontaneously. 2. Cholelithiasis. No gallbladder distention. No change in appearance minimal stranding adjacent to t he gallbladder. Given stability, the findings are not strongly suggestive of acute cholecystitis alth ough a hepatobiliary scan could be obtained as indicated. 3. Sigmoid diverticulosis. No evidence for acute diverticulitis. No bowel obstruction. 4. Right-sided nephrolithiasis. ACT 112: Negative or not required by law. Electronically signed by: Gus Ojeda M.D. 01/19/2023 4:40 PM
[2023-01-19] MEDS ORDERED: MoRPHine SULFATE 4 MG/ML 1 ML CARP\\VIAL IV STA (16:55)
[2023-01-19] MEDS ORDERED: SODIUM CHLORIDE 0.9% 1000ML 1,000 ML IV SCH (17:00)
[2023-01-19 17:13] LABS: Appearance Urine Slightly Cloudy (Clear); Bilirubin Urine Negative (Negative); Blood Urine Trace-intact (Negative); Color Urine Yellow; Glucose Urine UA Negative (Negative); Ketones Urine Trace (Negative); Leukocyte Esterase Urine 3+ (Negative); Nitrite Urine Positive (Negative); Protein Urine 2+ (Negative); Specific Gravity Urine 1.015 (1.000-1.030); Urobilinogen Urine Negative (Negative); pH Urine 6.5 (4.5-7.5)
--- NOTE | 2023-01-19 17:18 | Electrocardiogram Report ---
Test Reason : Blood Pressure : / mmHG Vent. Rate : 084 BPM Atrial Rate : 084 BPM P-R Int : 160 ms QRS Dur : 074 ms QT Int : 394 ms P-R-T Axes : 101 028 034 degrees QTc Int : 465 ms Poor data quality, interpretation may be adversely affected Normal sinus rhythm Normal ECG When compared with ECG of 16-JAN-2023 13:26, No significant change Confirmed by Vicente Sanchez ([id number]) on 01/19/2023 5:18:21 PM Referred By: REFERRED SELF Confirmed By:Vicente Sanchez
[2023-01-19 17:22] LABS: Bacteria Urine 2+ (Negative); Epithelial Cell Urine 0-5 /lpf (0-5); RBC Urine 0-4 /hpf (0-4); WBC Urine >30 /hpf (0-5)
[2023-01-19] MEDS ORDERED: metroNIDAZOLE 500 MG/100 ML BAG IV STA (17:39)
[2023-01-19] MEDS ORDERED: metroNIDAZOLE 500 MG/100 ML BAG IV ONE (17:56)
--- NOTE | 2023-01-19 17:57 | History & Physical Report ---
Date of Service January 19, 2023 Assessment & Plan (1) Abdominal pain: Plan: -Admit to the PCU on tele and pulse oximetry -The patient is currently afebrile, hemodynamically stable, and stable on RA -At this time the etiology of her abdominal pain in unclear. She had the recent biliary stent placement during her last admission for possible cholecystitis but was found to be without infectious findings during her ERCP. She has been on multiple antibiotics lately with recent admission and recurrent UTI's. Now having multiple episodes of foul-smelling diarrhea, will obtain stool studies and c. diff PCR. -The patient was seen Urology office on 01/06 for follow up and repeat UA with culture was obtained due to ongoing cloudy/dark urine. At that time she was started on daily bactrim for prophylactic therapy. -Review of her urine culture from 01/06 shows recurrence of Proteus, resistant to Bactrim -CT of the abd/pelvis WO con showed her biliary duct stent to be in place, without biliary duct dilation, and recurrent cholelithiasis without gallbladder distention. She was also without CT findings to suggest bowel obstruction and was noted to have right-sided nephrolithiasis -Will keep NPO and obtain RUQ US for further evaluation, will consult Gen Surgery with an y abnormal findings -Procal noted to be 11.37, random cortisol ordered on admission 9.13 -Will start stress dosed steroids with 100 mg IV Solu-Cortef followed by 50 mg IV q6h for a total of 6 doses for now -S/P 1 gm Ceftriaxone in the ED. Will continue 2 gm Ceftriaxone q24h which will cover the Proteus; will give another 1gm on admission for 2gm total. >Will also add Flagyl for now to cover any possible infection from an anaerobic source -Lactate has increased from 3.6 --->3.7 after her initial 2L NSS. Received another 1L NSS prior to admission, will hold additional IV fluids at this time -Will repeat another lactate STAT -Currently hemodynamically stable at 113/80 at the time of admission -BL SCD's and Eliquis for DVT PPX -AM CBC, CMP, (2) Lactate blood increase: Plan: -See abd pain (3) Hypertension: Plan: -Soft BP's on arrival to the ED, currently low-normal S/P 3L NSS -Starting Stress dosed steroids (4) Rheumatoid arthritis: Plan: -Hold Prednisone for now while on Stress dosed steroids (5) (HFpEF) heart failure with preserved ejection fraction: Plan: -Currently Euvolemic S/P 3L NSS in the ED -Hold prn lasix for now -Monitor for volume overload (6) Type 2 diabetes mellitus: Plan: -Monitor BSG q4h while NPO, goal is 110-140 -Continue home lantus of 5 units HS -Correction factor of 50 with CR of 15 when able to eat -Will likely need to adjust regimen with stress dose steroids (7) Paroxysmal atrial fibrillation: Plan: -Currently in NSR -Continue amiodarone, metoprolol, and eliquis (8) Hypothyroidism: Plan: -Continue levothyroxine (9) Acute cholecystitis: (10) Acute UTI: Plan The patient was discussed with Dr. Keane at the time of the admission History of Present Illness Chief Complaint: abd pain Primary Care Provider: Corby Arzola MD Daniela is a 68 year old female with a PMH significant for rheumatoid ar thritis on chronic prednisone, type II DM, TIA, hypothyroidism, chronic anemia, heart failure with preserved ejection fraction, CKD 3B, A-fib with RVR on apixaban, hyperlipidemia on Praluent who presented to the [facility] ED on 01/19/23 with chief complaints of abdominal pain. Vitals were stable in the ED. Labs were significant for a lactate of 3.7, LFT's WNL, WBC WNL, UA suggestive of UTI. Chest xray was read as "No acute cardiopulmonary findings.". CT of the abd/pelvis WO con was read as "1. Common bile duct stent in place. Pneumobilia, as expected. No biliary ductal dilatation. No CT evidence for acute pancreatitis. Pancreatic stent likely passed spontaneously. 2. Cholelithiasis. No gallbladder distention. No change in appearance minimal stranding adjacent to the gallbladder. Given stability, the findings are not strongly suggestive of acute cholecystitis although a hepatobiliary scan could be obtained as indicated. 3. Sigmoid diverticulosis. No evidence for acute diverticulitis. No bowel obstruction. 4. Right-sided nephrolithiasis.". Prior to admission the patient was given a dose of ceftriaxone, 2L NSS, and 4 mg IV morphine. AT the time of the exam the patient was lying in bed in no acute distress with her sitting bedside. She states that she woke up this am and felt fine. She had breakfast and was relaxing outside. She then had some RUQ abd discomfort/pain and felt as though she needed to have a bowel movement. She went to the bathroom and had a large, foul smelling bowel movement. While having the bowel movement she got lightheaded and diaphoretic. She checked her BP and her systolic BP was in the 70's, which is why she came to the ED. She denies recent fevers or chills, has been eating and drinking well, denies chest pain, SOB, cough, increased LE swelling and recent trauma. She does state that after discharge she noticed that her urine was still dark and cloudy. She states that she has a history of recurrent UTI's and her only warning signs are when her urine becomes dark abd cloudy. She was seen by Dr. Ramos in the Urology clinic on 01/06. Due to her symptoms he obtained another UA with culture and started her on Prophylactic Bactrim, one daily. She states that this morning she urinated after waking and noticed that her urine was very dark and cloudy; she has been taking the Bactrim as prescribed by Urology. Currently she states that she is experiencing RUQ pain and the sensation of abdominal fullness/distention. She has no other complaints at this time. Per chart review, the patient was admitted to [facility] from 12/25-01/01 for septic shock thought to be due to Pyelonephritis from Proteus infection. During her admission she was evaluated by GI due to CT findings showing possible cholecystitis. She underwent ERCP completed on 12/26. Choledocholithiasis found. No pus or signs of cholangitis seen. Biliary stent placed at that time. She initially required vasopressors in the ICU, she was given a stress dose of steroids and was able to be weaned off pressors. Her admission was complicated by afib RVR. Cardiology was consulted and the patient underwent electrocardioversion on 01/01. She was discharged on amiodarone on top of her typical metoprolol and Eliquis. She completed a 7 day course of Zosyn during her admission and blood cultures were negative prior to discharge. Please refer to Dr. Keane's attestation for any changes to the treatment plan Allergies Allergy/AdvReac Type Severity Reaction Status Date / Time tetracycline Allergy Severe RASH ON Verified 01/16/23 13:30 FACE methenamine Allergy Intermediate Swelling Verified 01/16/23 13:30 of Lip/Tongue/Throat Hfwlcnj-OYR-WvA Reductase AdvReac Intermediate LE edema Verified 01/16/23 13:30 Inhibitor [Flqtczv-Jcy-Lww Reductase Inhibitor] oxycodone AdvReac Mild Drowsy Verified 01/16/23 13:30 Home Medications Medication Instructions Recorded Confirmed Type cholecalciferol (vitamin D3) 25 1,000 unit PO QAM 10/26/18 01/19/23 History mcg (1,000 unit) capsule (Vitamin D3) magnesium 250 mg tablet 250 mg PO HS 10/26/18 01/19/23 History acetaminophen 500 mg tablet 1,000 mg PO Q6H PRN Pain 12/24/18 01/19/23 History (Tylenol Extra Strength) cyclobenzaprine 10 mg tablet 10 mg PO HS 04/21/21 01/19/23 History albuterol sulfate 90 mcg/actuation 2 puff inhalation QID PRN 04/02/22 01/19/23 Rx aerosol inhaler (Ventolin HFA) shortness of breath or wheezing #8.5 grams levothyroxine 100 mcg tablet 100 mcg PO QAM #90 tabs 09/16/22 01/19/23 Rx prednisone 5 mg tablet 10 mg PO QPM 11/13/22 01/19/23 History semaglutide 0.25 mg or 0.5 mg (2 0.25 mg (0.2 mL) subcut ONCE #1.5 11/25/22 01/19/23 Rx mg/1.5 mL) subcutaneous pen mL injector (Ozempic) apixaban 5 mg tablet (Eliquis) 5 mg PO BID #180 tabs 12/02/22 01/19/23 Rx L.acidop,casei,lactis,rham-B.lact,reyes 1 cap PO HS 12/12/22 01/19/23 History 625 mg (10 billion cell) capsule (Advanced Probiotic) gabapentin 100 mg capsule 100 - 300 mg PO HS 12/12/22 01/19/23 History omeprazole 40 mg capsule,delayed 40 mg PO QAM 12/12/22 01/19/23 History release furosemide 20 mg tablet (Lasix) 20 mg PO DAILY PRN edema of legs 12/13/22 01/19/23 Rx #30 tabs alirocumab 75 mg/mL subcutaneous 75 mg subcut Q14D #2 mL 12/23/22 01/19/23 Rx pen injector (Praluent Pen) sulfamethoxazole 400 1 tab PO DAILY #90 tabs 01/06/23 01/19/23 Rx mg-trimethoprim 80 mg tablet (Bactrim) insulin glargine 100 unit/mL (3 5 unit (0.05 mL) subcut DAILY #15 01/07/23 01/19/23 Rx mL) subcutaneous pen (Lantus mL Solostar U-100 Insulin) pen needle, diabetic 31 gauge x #100 ea 01/07/23 01/08/23 Rx 1/" metoprolol succinate 100 mg 100 mg PO BID #180 tabs 01/13/23 01/19/23 Rx tablet,extended release 24 hr amiodarone 200 mg tablet 200 mg PO HS 01/19/23 01/19/23 History Past Med/Surg History Medical History (HFpEF) heart failure with preserved ejection fraction Acute congestive heart failure Acute epigastric pain 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--per pt due to clot, cleared from neurology--follows with PCP--has slight weakness on left side Acute on chronic kidney failure Acute respiratory failure with hypoxia AISHWARYA (acute kidney injury) Anemia of chronic disease Anxiety Bilateral leg edema Chronic kidney disease, stage 3b Diabetes mellitus type II, controlled Elevated lactic acid level Elevated troponin Exertional chest pain GERD (gastroesophageal reflux disease) History of COVID-19 10/04/21--hospitalized @ [facility] for 9 days--no issues now History of MRSA infection lumbar surgical incision s/p vanco/ceftriaxone/bactrim per 04/2019 [facility] discharge summary History of recent blood transfusion 09/18/22 @ [facility] Hospital discharge follow-up Hyperlipidemia Hypertension Hypotension Hypothyroidism Immunosuppression due to drug therapy Lumbar radiculopathy Myocardial injury Paroxysmal atrial fibrillation Recurrent UTI Rheumatoid arthritis Sepsis recent hospitalization 09/17/22 @ [facility] due to UTI Spinal stenosis Stenosis of left internal carotid artery 50-69% stenosis of left ICA per 04/2021 neck CTA Stenosis of left vertebral artery Approximately 90% stenosis within V4 segment of left vertebral artery per 04/21/2021 neck CTA TIA involving vertebral artery Given TPA on 04/21/2021 with resolution of symptoms. Surgical History History of x2 History of hysterectomy total History of lumbar surgery Lumbar Spine Wound Revision 05/2019 Dr. Mane @ [facility] History of total left knee replacement Hx of tonsillectomy Status post laminectomy with spinal fusion L2-L5 laminectomy/fusion: 12/24/18: Grade view 1, MAC#3, ETT 7.0 Family History Father Diabetes Lung cancer Cancer Hypertension Mother Malignant neoplasm of brain Diabetes Brain tumor Cancer Hypertension Aunt Breast cancer Sister Hypertension Other No family history of adverse response to anesthesia Denies family history of Ovarian cancer Prostate cancer Myocardial infarction Colorectal cancer Social History Smoking Status: Never smoker Second Hand Exposure: No; Do You Dip or Chew Tobacco: No; Tobacco Cessation Education Requested by Patient: No Hx Alcohol Use: Yes Alcohol type: wine Alcohol Intake Frequency: 2-4 x/Month Hx Substance Use: No Preferred Language: Ukrainian Communication Ability: Effective Visual Impairment: No Limitations Hearing Ability: Normal 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 Feels Safe at Home: Yes Safety Concerns: Feels Safe At This Time Childhood Exposure to Second-Hand Smoke: Yes caffeine: Yes Dental Care, Regularly: Yes Physical Activity Frequency: 5-6 Times per Week Physical Activity Frequency Comment: gym Seatbelt Use: always Sunscreen Use: Yes Do you think of yourself as: straight/heterosexual Assistive Devices: Cane and Glasses Physical Exam Physical Exam: Physical Exam: General: In no acute distress, stated age, well-nourished, good hygiene HEENT: Normocephalic, atraumatic, no scleral icterus, pupils around round, symmetrical, and reactive to light, dry mucus membranes, trachea midline, no thyromegaly Chest/Pulm: No respiratory distress, symmetrical chest expansion, clear breath sounds throughout Cardiac: RRR, no murmurs noted Abdomen: Negative for ascites and bruising, normoactive bowel sounds, soft, mildly tender to palpation in the RUQ, no rebound tenderness : Negative CVA tenderness BL Musculoskeletal: Symmetrical and without signs of acute trauma, upper and lower extremities with full ROM, no atrophy, spasticity, or flaccidity Extremities: Radial, dorsalis pedis, and posterior tibial pulses are intact and symmetrical, +1 edema noted in the BL LE's Skin: Warm, dry, no rashes , lesions, or scars noted Neuro: Alert and oriented to person, place, month, year, and president, no focal defects, CN II-XII tested and intact, finger to nose test negative, no tremors noted Psych: No acute distress, calm and cooperative during the exam Results & Data Results & Data Vital Signs (Past 12 Hours) Vital Signs Temp Pulse Pulse Resp BP BP Pulse Ox 01/19/23 16:40 83 17 01/19/23 16:30 80 15 96 01/19/23 16:30 103/58 L 01/19/23 16:20 82 16 96 01/19/23 16:15 118/75 01/19/23 16:15 82 16 96 01/19/23 16:10 84 17 01/19/23 16:08 100/66 01/19/23 16:08 81 14 94 01/19/23 16:16 83 18 118/75 96 01/19/23 16:00 83 16 96 01/19/23 15:40 80 15 01/19/23 15:30 79 17 01/19/23 15:20 82 17 01/19/23 15:10 82 14 01/19/23 15:00 81 15 01/19/23 14:50 83 17 01/19/23 14:40 84 14 95 01/19/23 14:36 88 15 96 01/19/23 14:37 85 01/19/23 14:34 36.4 C L 89 16 116/54 L 94 O2 Del Method 01/19/23 16:40 01/19/23 16:30 01/19/23 16:30 01/19/23 16:20 01/19/23 16:15 01/19/23 16:15 01/19/23 16:10 01/19/23 16:08 01/19/23 16:08 01/19/23 16:16 Room Air 01/19/23 16:00 01/19/23 15:40 01/19/23 15:30 01/19/23 15:20 01/19/23 15:10 01/19/23 15:00 01/19/23 14:50 01/19/23 14:40 01/19/23 14:36 01/19/23 14:37 01/19/23 14:34 Room Air Laboratory Results Abnormal lab results 01/19/23 01/19/23 01/19/23 Range/Units 15:02 15:02 15:02 RBC 3.42 L (4.20-5.40) M/uL Hgb 9.0 L (12.0-16.0) g/dl Hct 30.9 L (37.0-47.0) % MCHC 29.1 L (32.0-36.0) g/dL RDW Std Deviation 51.7 H (36.4-46.3) fL RDW Coeff of Sumaya 15.8 H (11.5-14.5) % Neut # (Auto) 9.96 H (1.40-6.50) K/uL Lymph # (Auto) 0.14 L (1.2-3.4) K/uL Luce # (Auto) 0.05 L (0.11-0.59) K/uL APTT < 20.0 L (21.0-31.0) Seconds BUN (6-23) mg/dl Creatinine (0.6-1.2) mg/dl Glucose (70-99(Fasting)) mg/dl POC Glucose (70-99) mg/dl Lactate 3.6 H* (0.4-2.0) mmol/L Calcium (8.6-10.3) mg/dl Total Protein (6.0-8.3) gm/dl Procalcitonin (0-0.5) ng/ml Urine Protein (Negative) Urine Ketones (Negative) Urine Blood (Negative) Urine Nitrite (Negative) Ur Leukocyte Esterase (Negative) Urine WBC (0-5) /hpf Urine Bacteria (Negative) 01/19/23 01/19/23 01/19/23 Range/Units 15:02 15:10 17:00 RBC (4.20-5.40) M/uL Hgb (12.0-16.0) g/dl Hct (37.0-47.0) % MCHC (32.0-36.0) g/dL RDW Std Deviation (36.4-46.3) fL RDW Coeff of Sumaya (11.5-14.5) % Neut # (Auto) (1.40-6.50) K/uL Lymph # (Auto) (1.2-3.4) K/uL Luce # (Auto) (0.11-0.59) K/uL APTT (21.0-31.0) Seconds BUN 35 H (6-23) mg/dl Creatinine 1.83 H (0.6-1.2) mg/dl Glucose 124 H (70-99(Fasting)) mg/dl POC Glucose (70-99) mg/dl Lactate (0.4-2.0) mmol/L Calcium 8.0 L (8.6-10.3) mg/dl Total Protein 5.8 L (6.0-8.3) gm/dl Procalcitonin 11.37 H (0-0.5) ng/ml Urine Protein 2+ H (Negative) Urine Ketones Trace H (Negative) Urine Blood Trace-intact H (Negative) Urine Nitrite Positive A (Negative) Ur Leukocyte Esterase 3+ H (Negative) Urine WBC >30 H (0-5) /hpf Urine Bacteria 2+ H (Negative) 01/19/23 01/19/23 Range/Units 17:10 18:59 RBC (4.20-5.40) M/uL Hgb (12.0-16.0) g/dl Hct (37.0-47.0) % MCHC (32.0-36.0) g/dL RDW Std Deviation (36.4-46.3) fL RDW Coeff of Sumaya (11.5-14.5) % Neut # (Auto) (1.40-6.50) K/uL Lymph # (Auto) (1.2-3.4) K/uL Luce # (Auto) (0.11-0.59) K/uL APTT (21.0-31.0) Seconds BUN (6-23) mg/dl Creatinine (0.6-1.2) mg/dl Glucose (70-99(Fasting)) mg/dl POC Glucose 127 H (70-99) mg/dl Lactate 3.7 H* (0.4-2.0) mmol/L Calcium (8.6-10.3) mg/dl Total Protein (6.0-8.3) gm/dl Procalcitonin (0-0.5) ng/ml Urine Protein (Negative) Urine Ketones (Negative) Urine Blood (Negative) Urine Nitrite (Negative) Ur Leukocyte Esterase (Negative) Urine WBC (0-5) /hpf Urine Bacteria (Negative) Diagnostic Findings Chest X-Ray 01/19/23 14:35 XR chest 1V portable CLINICAL HISTORY: Sepsis. COMPARISON STUDY: Chest radiograph and chest CT December 25, 2022. FINDINGS: There is no pneumothorax or pleural effusion. No consolidation is identified to suggest pneumonia. Minimal left basilar opacity favors atelectasis. Cardiomegaly is unchanged. There is no evidence for pulmonary edema. IMPRESSION: No acute cardiopulmonary findings. ACT 112: Negative or not required by law. Electronically signed by: Gus Ojeda M.D. 01/19/2023 3:27 PM Abdomen/Pelvis CT 01/19/23 14:56 CT OF THE ABDOMEN AND PELVIS WITHOUT CONTRAST CLINICAL HISTORY: Epigastric pain. COMPARISON STUDY: CT of the abdomen and pelvis and right upper quadrant ultrasound December 25, 2022. TECHNIQUE: Axial images of the abdomen and pelvis were obtained without IV contrast. Images were reviewed in the axial, sagittal, and coronal planes. Automated exposure control was utilized for the study. A dose lowering technique was utilized adhering to the principles of ALARA. FINDINGS: No significant abnormality is identified within the lung bases. No pneumatosis, free air or portal venous gas is present. Several gallstones within the gallbladder noted. Minimal stranding adjacent to the gallbladder is unchanged. The gallbladder is not significantly distended. There is a small amount of gas within the gallbladder. In addition, there is a small amount of pneumobilia following sphincterotomy with placement of a common bile duct stent. There is no biliary ductal dilatation. The pancreatic stent has likely passed spontaneously. There is no peripancreatic stranding. No peripancreatic fluid collections are present. Probable hepatic steatosis. Evaluation of the abdomen and pelvis is suboptimal on this unenhanced exam. Spleen, adrenal glands and left kidney are unremarkable. There are numerous small right renal calculi. There are no ureteral calculi. No hydronephrosis. There is no evidence for a bowel obstruction. Extensive sigmoid diverticulosis is present without evidence for acute diverticulitis. The appendix is normal. T12 compression fracture is unchanged. Postoperative findings within the spine are again noted. There is no lymphadenopathy. There is no abscess within the abdomen or pelvis. IMPRESSION: 1. Common bile duct stent in place. Pneumobilia, as expected. No biliary ductal dilatation. No CT evidence for acute pancreatitis. Pancreatic stent likely passed spontaneously. 2. Cholelithiasis. No gallbladder distention. No change in appearance minimal stranding adjacent to the gallbladder. Given stability, the findings are not strongly suggestive of acute cholecystitis although a hepatobiliary scan could be obtained as indicated. 3. Sigmoid diverticulosis. No evidence for acute diverticulitis. No bowel o bstruction. 4. Right-sided nephrolithiasis. ACT 112: Negative or not required by law. Electronically signed by: Gus Ojeda M.D. 01/19/2023 4:40 PM ECG Additional Comments: Poor data quality, interpretation may be adversely affected Normal sinus rhythm Normal ECG When compared with ECG of 16-JAN-2023 13:26, No significant change Confirmed by Vicente Sanchez ([id number]) on 01/19/2023 5:18:21 PM Code Status & VTE Plan Code Status Full code VTE Prophylaxis Plan VTE Prophylaxis will be ordered: Yes Supervising Physician Co-Signing Physician Notes I personally saw and examined the patient. I verified all geronimo points and agree with Naresh Prieto PA-C with the following exceptions and/or additions: 68 year old female presents to the ER with abdominal pain and worsening urinary symptoms. Recent ICU admission in December with sepsis due to acute proteus pyelonephritis, a. fib RVR and choledocholithiasis (not suspected to be cause of sepsis). Currently has biliary stent placement following this. O/E A&Ox3, non septic appearing, HS RRR, no murmurs, Chest CTAB, Abdo RUQ tenderness without guarding or rebound, no CVA tenderness A/P Possible acute cholecystitis - exam very consistent with this. Will get HIDA scan and consult surgery. Ceftriaxone (increase to 2g IV) + metronidazole. Monitor LFTs Acute UTI - worsening urinary symptoms after 7 day course of Augmentin for proteus mirabilis persistently positive on culture. This was suspected to have caused her sepsis and ICU stay last admission despite negative blood cultures. Ceftriaxone. Paroxysmal atrial fibrillation - will continue metoprolol and amiodarone given holding the metoprolol last admission lead to a. fib RVR episode. Despite low normal BP I believe the risk of discontinuing outweighs the benefit. Eliquis on hold pending surgical evaluation - restart as soon as possible due to recent cardioversion in December although it has been more than 4 weeks. PG Care Time/CCT Total # of Minutes Spent Total Time Spent with Patient: Total time spent is greater than 50% in coordination of care (as documented) at patient's floor/unit and/or counseling patient: C[place] [address] INT INP/OBS CARE 3/75MIN Patient Type Established Medical Decision Making High Complexity Diagnoses Abdominal pain R10.9 Lactate blood increase R79.89 Hypertension I10 Hypertension type: essential hypertension Rheumatoid arthritis M06.9 Rheumatoid arthritis location: multiple sites Rheumatoid factor presence: unspecified presence (HFpEF) heart failure with preserved ejection fraction I50.30 Type 2 diabetes mellitus E11.9 Paroxysmal atrial fibrillation I48.0 Hypothyroidism E03.9 Hypothyroidism type: unspecified Acute cholecystitis K81.0 Acute UTI N39.0 (3) Hypertension Hypertension type: essential hypertension Qualified Code(s): I10 - Essential (primary) hypertension (4) Rheumatoid arthritis Rheumatoid arthritis location: multiple sites Rheumatoid factor presence: unspecified presence Qualified Code(s): M06.9 - Rheumatoid arthritis, unspecified (8) Hypothyroidism Hypothyroidism type: unspecified Qualified Code(s): E03.9 - Hypothyroidism, unspecified
[2023-01-19] MEDS ORDERED: GLUCOSE 40% GEL 15 GM TUBE PO PRN (18:00)
[2023-01-19] MEDS ORDERED: DEXTROSE 50% 50 ML SYRINGE IV PRN (18:00)
[2023-01-19] MEDS ORDERED: GLUCAGON FOR INJ 1 MG VIAL SQ PRN (18:00)
[2023-01-19] MEDS ORDERED: GLUCOSE 10 TAB/TUBE PO PRN (18:00)
[2023-01-19] MEDS ORDERED: CARBOHYDRATES FOR HYPOGLYCEMIA PO PRN (18:00)
[2023-01-19] MEDS ORDERED: HYDROCORTISONE SOD SUCCINATE 100 MG/2 ML VIAL IV STA (19:26)
--- NOTE | 2023-01-19 19:55 | Ultrasound Report ---
US gallbladder CLINICAL HISTORY: Abdominal pain, recent billary stent placement. COMPARISON STUDY: CT of the abdomen and pelvis performed earlier today. Right upper quadrant ultraso und December 25, 2022. FINDINGS: Hepatic echogenicity is increased. No hepatic lesions are identified. There is no biliary d uctal dilatation. The biliary stent shown on CT is not well visualized by sonography. Several small g allstones are noted. There is no gallbladder wall thickening. Sonographic Caraballo sign could not be as sessed for in this patient. The pancreas is obscured. There is no right hydronephrosis. IMPRESSION: 1. Cholelithiasis. No convincing evidence for acute cholecystitis. If indicated, a hepatobiliary scan could be obtained. 2. No biliary ductal dilatation. 3. Hepatic steatosis. ACT 112: Negative or not required by law. Electronically signed by: Gus Ojeda M.D. 01/19/2023 7:53 PM
[2023-01-19] MEDS ORDERED: cefTRIAXone SODIUM 1,000 MG in DEXTROSE 5% AD-VAN 50 ML IV ONE (21:00)
[2023-01-19] MEDS ORDERED: ALBUTEROL HFA 8 GM INHALER INH PRN (21:48)
[2023-01-19] MEDS ORDERED: ACETAMINOPHEN 325 MG TAB PO PRN (21:48)
[2023-01-19] MEDS ORDERED: HYDROCORTISONE SOD 100 MG in SYRINGE 0 ML IV ONE (22:00)
[2023-01-19] MEDS: INSULIN ASPART PER UNIT CHARGE SC SCH ×2 (22:22→22:44)
[2023-01-19] MEDS: LANTUS PER UNIT CHARGE SQ SCH (22:29)
[2023-01-19] MEDS: AMIODARONE 200 MG TAB PO SCH (22:30)
[2023-01-19] MEDS: GABAPENTIN 300 MG CAP PO SCH (22:30)
[2023-01-19] MEDS: ADVANCED PROBIOTIC 1250 MG CAPSULE PO SCH (22:30)
[2023-01-19] MEDS: METOPROLOL SUCC 50MG EXT REL TAB PO SCH (22:31)
[2023-01-19] MEDS: MAGNESIUM OXIDE 400 MG TAB PO SCH (22:32)
[2023-01-19] MEDS ORDERED: ONDANSETRON INJ 2 MG/ML 2 ML VIAL IV PRN (22:51)
[2023-01-19] MEDS: MoRPHine SULFATE 2 MG/ML CARP IV PRN (22:56)
[2023-01-19] MEDS ORDERED: PHARMACY GLYCEMIC MGMT CONSULT PRN (23:38)
[2023-01-20] MEDS ORDERED: HYDROCORTISONE SOD SUCCINATE 100 MG/2 ML VIAL IV SCH (01:00)
[2023-01-20] MEDS: INSULIN ASPART PER UNIT CHARGE SC SCH ×6 (01:30→20:26)
[2023-01-20] MEDS: MoRPHine SULFATE 2 MG/ML CARP IV PRN (03:35)
[2023-01-20] MEDS: metroNIDAZOLE 500 MG/100 ML BAG IV SCH ×3 (03:47→20:29)
[2023-01-20] MEDS: HYDROCORTISONE SOD 50 MG in SYRINGE 0 ML IV SCH ×4 (03:55→21:24)
[2023-01-20] MEDS: LEVOTHYROXINE SODIUM 100 MCG TABLET PO SCH (05:35)
[2023-01-20 06:34] LABS: Hematocrit (blood only) 26.6 % (37.0-47.0); Hemoglobin 7.9 g/dl (12.0-16.0); Mean Corpuscular Hemoglobin 26.7 pg (25.0-34.0); Mean Corpuscular Hgb Conc 29.7 g/dL (32.0-36.0); Mean Corpuscular Volume 89.9 fL (80.0-100.0); Mean Platelet Volume 10.5 fL (9.4-12.4); Platelet Count 243 K/uL (130-400); RDW Coefficient of Variation 15.9 % (11.5-14.5); RDW Standard Deviation 51.7 fL (36.4-46.3); Red Blood Count 2.96 M/uL (4.20-5.40); White Blood Count 29.56 K/ul (4.8-10.8)
[2023-01-20 06:50] LABS: Basophils # (auto) 0.05 K/uL (0-0.2); Basophils % (auto) 0.2 %; Eosinophils # (auto) 0.02 K/uL (0-0.50); Eosinophils % (auto) 0.1 %; Immature Granulocytes # (auto) 0.67 K/uL (0.01-0.20); Immature Granulocytes % (auto) 2.3 %; Lymphocytes # (auto) 0.17 K/uL (1.2-3.4); Lymphocytes % (auto) 0.6 %; Monocytes # (auto) 0.57 K/uL (0.11-0.59); Monocytes % (auto) 1.9 %; Neutrophils # (auto) 28.08 K/uL (1.40-6.50); Neutrophils % (auto) 94.9 %; Polychromasia 1+
[2023-01-20 06:55] LABS: Prothrombin Time 11.1 Seconds (9.0-12.0)
[2023-01-20 07:32] LABS: Albumin Globulin Ratio 1.6 (0.9-2); Albumin Level 3.3 gm/dl (3.4-5.0); BUN Creatinine Ratio 18.9 (10-20); Bilirubin,Total 0.2 mg/dl (0.2-1.0); Calcium 7.3 mg/dl (8.6-10.3); Est GFR (Non-African American) 24.1 ml/min; Globulin 2.1 gm/dl (2.5-4.0); Magnesium 1.9 mg/dl (1.7-2.4); Potassium 6.2 mmol/L (3.5-5.1); Total Protein 5.4 gm/dl (6.0-8.3)
[2023-01-20] MEDS ORDERED: INSULIN HUMAN REGULAR SC ONE (08:51)
[2023-01-20] MEDS ORDERED: INSULIN HUMAN REGULAR PER UNIT 10 UNITS in SYRINGE 9.9 ML IV ONE (09:15)
[2023-01-20] MEDS ORDERED: DEXTROSE 50% 50 ML SYRINGE IV ONE (09:15)
[2023-01-20] MEDS: METOPROLOL SUCC 50MG EXT REL TAB PO SCH ×2 (09:24→20:29)
[2023-01-20] MEDS: PANTOprazole 40 MG TAB PO SCH (09:24)
[2023-01-20] MEDS: POLYETHYLENE (MIRALAX) 17 GM PACK PO SCH (09:24)
--- NOTE | 2023-01-20 10:38 | Surgery Consultation ---
Date of Consultation January 20, 2023 Assessment & Plan (1) Acute UTI: (2) Abdominal pain: Plan 68-year-old woman with prior history of choledocholithiasis now with biliary stent presents to the hospital with what appears to be a recurrent UTI. She is being treated for this with antibiotics. Both the CT scan and the ultrasound demonstrate no evidence of acute cholecystitis. The stent is in good position. There is no need for further evaluation of the gallbladder at this time. She has seen Dr. Fish as an outpatient, and can follow-up with him as previously scheduled. Please call with any questions or concerns. History of Present Illness Reason for Consultation: Question acute cholecystitis Requesting Physician: Adam Keane MD Attending Physician: Jason Lopez DO History of Present Illness 86-year-old woman presents with what appears to be a UTI. She has a history of sepsis from UTIs in the past. The last time she was in the hospital she was noted to have choledocholithiasis, and an EUS/ERCP was done with a stent placement. She saw Dr. Fish as an outpatient 2 weeks ago to discuss possible removal of the gallbladder at the same time of stent removal. She has extensive past medical history. She had recurrence of her abdominal pain with dark dirty urine. She is found to have a Proteus species growing that is resistant to Bactrim, which she is on daily. She was found to have a high lactate. CT scan and ultrasound demonstrate the biliary stent in good position, cholelithiasis with no evidence of acute cholecystitis. She denies nausea or vomiting. She is feeling better today. Allergies Allergy/AdvReac Type Severity Reaction Status Date / Time tetracycline Allergy Severe RASH ON Verified 01/16/23 13:30 FACE methenamine Allergy Intermediate Swelling Verified 01/16/23 13:30 of Lip/Tongue/Throat Qvxqxpb-YPV-UrA Reductase AdvReac Intermediate LE edema Verified 01/16/23 13:30 Inhibitor [Hohglgc-Efx-Inj Reductase Inhibitor] oxycodone AdvReac Mild Drowsy Verified 01/16/23 13:30 Home Medications Medication Instructions Recorded Confirmed Type cholecalciferol (vitamin D3) 25 1,000 unit PO QAM 10/26/18 01/19/23 History mcg (1,000 unit) capsule (Vitamin D3) magnesium 250 mg tablet 250 mg PO HS 10/26/18 01/19/23 History acetaminophen 500 mg tablet 1,000 mg PO Q6H PRN Pain 12/24/18 01/19/23 History (Tylenol Extra Strength) cyclobenzaprine 10 mg tablet 10 mg PO HS 04/21/21 01/19/23 History albuterol sulfate 90 mcg/actuation 2 puff inhalation QID PRN 04/02/22 01/19/23 Rx aerosol inhaler (Ventolin HFA) shortness of breath or wheezing #8.5 grams levothyroxine 100 mcg tablet 100 mcg PO QAM #90 tabs 09/16/22 01/19/23 Rx prednisone 5 mg tablet 10 mg PO QPM 11/13/22 01/19/23 History semaglutide 0.25 mg or 0.5 mg (2 0.25 mg (0.2 mL) subcut ONCE #1.5 11/25/22 01/19/23 Rx mg/1.5 mL) subcutaneous pen mL injector (Ozempic) apixaban 5 mg tablet (Eliquis) 5 mg PO BID #180 tabs 12/02/22 01/19/23 Rx L.acidop,casei,lactis,rham-B.lact,ryees 1 cap PO HS 12/12/22 01/19/23 History 625 mg (10 billion cell) capsule (Advanced Probiotic) gabapentin 100 mg capsule 100 - 300 mg PO HS 12/12/22 01/19/23 History omeprazole 40 mg capsule,delayed 40 mg PO QAM 12/12/22 01/19/23 History release furosemide 20 mg tablet (Lasix) 20 mg PO DAILY PRN edema of legs 12/13/22 01/19/23 Rx #30 tabs alirocumab 75 mg/mL subcutaneous 75 mg subcut Q14D #2 mL 12/23/22 01/19/23 Rx pen injector (Praluent Pen) sulfamethoxazole 400 1 tab PO DAILY #90 tabs 01/06/23 01/19/23 Rx mg-trimethoprim 80 mg tablet (Bactrim) insulin glargine 100 unit/mL (3 5 unit (0.05 mL) subcut DAILY #15 01/07/23 01/19/23 Rx mL) subcutaneous pen (Lantus mL Solostar U-100 Insulin) pen needle, diabetic 31 gauge x #100 ea 01/07/23 01/08/23 Rx 1/4" metoprolol succinate 100 mg 100 mg PO BID #180 tabs 01/13/23 01/19/23 Rx tablet,extended release 24 hr amiodarone 200 mg tablet 200 mg PO HS 01/19/23 01/19/23 History Patient History Medical History (HFpEF) heart failure with preserved ejection fraction Acute congestive heart failure Acute epigastric pain 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--per pt due to clot, cleared from neurology--follows with PCP--has slight weakness on left side Acute on chronic kidney failure Acute respiratory failure with hypoxia AISHWARYA (acute kidney injury) Anemia of chronic disease Anxiety Bilateral leg edema Chronic kidney disease, stage 3b Diabetes mellitus type II, controlled Elevated lactic acid level Elevated troponin Exertional chest pain GERD (gastroesophageal reflux disease) History of COVID-19 10/04/21--hospitalized @ [facility] for 9 days--no issues now History of MRSA infection lumbar surgical incision s/p vanco/ceftriaxone/bactrim per 04/2019 [facility] discharge summary History of recent blood transfusion 09/18/22 @ [facility] Hospital discharge follow-up Hyperlipidemia Hypertension Hypotension Hypothyroidism Immunosuppression due to drug therapy Lumbar radiculopathy Myocardial injury Paroxysmal atrial fibrillation Recurrent UTI Rheumatoid arthritis Sepsis recent hospitalization 09/17/22 @ [facility] due to UTI Spinal stenosis Stenosis of left internal carotid artery 50-69% stenosis of left ICA per 04/2021 neck CTA Stenosis of left vertebral artery Approximately 90% stenosis within V4 segment of left vertebral artery per 04/21/2021 neck CTA TIA involving vertebral artery Given TPA on 04/21/2021 with resolution of symptoms. Surgical History History of x2 History of hysterectomy total History of lumbar surgery Lumbar Spine Wound Revision 05/2019 Dr. Mane @ [facility] History of total left knee replacement Hx of tonsillectomy Status post laminectomy with spinal fusion L2-L5 laminectomy/fusion: 12/24/18: Grade view 1, MAC#3, ETT 7.0 Family History Father Diabetes Lung cancer Cancer Hypertension Mother Malignant neoplasm of brain Diabetes Brain tumor Cancer Hypertension Aunt Breast cancer Sister Hypertension Other No family history of adverse response to anesthesia Denies family history of Ovarian cancer Prostate cancer Myocardial infarction Colorectal cancer Social History Smoking Status: Never smoker Second Hand Exposure: No; Do You Dip or Chew Tobacco: No; Tobacco Cessation Education Requested by Patient: No Hx Alcohol Use: Yes Alcohol type: wine Alcohol Intake Frequency: 2-4 x/Month Hx Substance Use: No Preferred Language: Amharic Communication Ability: Effective Visual Impairment: No Limitations Hearing Ability: Normal 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 Feels Safe at Home: Yes Safety Concerns: Feels Safe At This Time Childhood Exposure to Second-Hand Smoke: Yes caffeine: Yes Dental Care, Regularly: Yes Physical Activity Frequency: 5-6 Times per Week Physical Activity Frequency Comment: gym Seatbelt Use: always Sunscreen Use: Yes Do you think of yourself as: straight/heterosexual Assistive Devices: Cane and Glasses Review of Systems Review of Systems: All systems reviewed & are unremarkable except as noted in HPI & below Physical Exam Constitutional: WD/WN, vitals as above Eyes: PERRL, conjunctivae normal, anicteric sclerae Neck: trachea midline, no thyromegaly Respiratory: normal respiratory effort; no respiratory distress and no labored breathing Cardiovascular: Rate/Rhythm: regular rate and regular rhythm Gastrointestinal (Abdomen): Inspection/Auscultation: abdomen normal to inspection; abdomen not distended Percussion/Palpation: + abdomen tender (Lower abdomen) and abdomen soft; no guarding and abdomen not rigid Skin: no rashes, warm and dry Psychiatric: A+Ox3, euthymic affect Results & Data Vital Signs (Past 12 Hours) Vital Signs Temp Pulse Pulse Resp BP Pulse Ox O2 Del Method 01/20/23 09:44 68 01/20/23 08:03 36.8 C 71 17 100/65 94 Room Air 01/20/23 03:43 36.5 C 76 21 110/69 95 Room Air 01/19/23 23:00 36.5 C 76 19 102/66 92 Room Air Laboratory Results 01/20/23 01/20/23 01/20/23 Range/Units 10:17 09:59 09:59 WBC (4.8-10.8) K/ul RBC (4.20-5.40) M/uL Hgb (12.0-16.0) g/dl Hct (37.0-47.0) % MCV (80.0-100.0) fL MCH (25.0-34.0) pg MCHC (32.0-36.0) g/dL RDW Std Deviation (36.4-46.3) fL RDW Coeff of [place]aya (11.5-14.5) % Plt Count (130-400) K/uL MPV (9.4-12.4) fL Immature Gran % (Auto) % Neut % (Auto) % Lymph % (Auto) % Gibson % (Auto) % Eos % (Auto) % Baso % (Auto) % Neut # (Auto) (1.40-6.50) K/uL Lymph # (Auto) (1.2-3.4) K/uL Gibson # (Auto) (0.11-0.59) K/uL Eos # (Auto) (0-0.50) K/uL Baso # (Auto) (0-0.2) K/uL Immature Gran # (Auto) (0.01-0.20) K/uL Toxic Vacuolation Polychromasia PT (9.0-12.0) Seconds INR (0.9-1.1) APTT (21.0-31.0) Seconds PTT Ratio Sodium Pending (136-145) mmol/L Potassium Pending (3.5-5.1) mmol/L Chloride Pending (98-107) mmol/L Carbon Dioxide Pending (21-32) mmol/L Anion Gap Pending (3-11) BUN Pending (6-23) mg/dl Creatinine Pending (0.6-1.2) mg/dl Est Cr Clr Drug Dosing Pending ml/min Est GFR ( Amer) Pending ml/min Est GFR (Non-Af Amer) Pending ml/min BUN/Creatinine Ratio Pending (10-20) Glucose Pending (70-99(Fasting)) mg/dl POC Glucose 128 H (70-99) mg/dl Lactate 4.2 H* (0.4-2.0) mmol/L Calcium Pending (8.6-10.3) mg/dl Magnesium (1.7-2.4) mg/dl Total Bilirubin (0.2-1.0) mg/dl Direct Bilirubin (0-0.2) mg/dl AST (13-39) U/L ALT (7-52) U/L Alkaline Phosphatase (34-104) U/L Total Protein (6.0-8.3) gm/dl Albumin (3.4-5.0) gm/dl Globulin (2.5-4.0) gm/dl Albumin/Globulin Ratio (0.9-2) Amylase Pending Lipase Pending (11-82) U/L Procalcitonin (0-0.5) ng/ml Random Cortisol mcg/dl Urine Color Urine Appearance (Clear) Urine pH (4.5-7.5) Ur Specific [place] (1.000-1.030) Urine Protein (Negative) Urine Glucose (UA) (Negative) Urine Ketones (Negative) Urine Blood (Negative) Urine Nitrite (Negative) Urine Bilirubin (Negative) Urine Urobilinogen (Negative) Ur Leukocyte Esterase (Negative) Urine RBC (0-4) /hpf Urine WBC (0-5) /hpf Ur Epithelial Cells (0-5) /lpf Urine Bacteria (Negative) SARS-CoV-2, RNA, NAAT (NEGATIVE) 01/20/23 01/20/23 01/20/23 Range/Units 07:39 05:30 05:30 WBC (4.8-10.8) K/ul RBC (4.20-5.40) M/uL Hgb (12.0-16.0) g/dl Hct (37.0-47.0) % MCV (80.0-100.0) fL MCH (25.0-34.0) pg MCHC (32.0-36.0) g/dL RDW Std Deviation (36.4-46.3) fL RDW Coeff of Sumaya (11.5-14.5) % Plt Count (130-400) K/uL MPV (9.4-12.4) fL Immature Gran % (Auto) % Neut % (Auto) % Lymph % (Auto) % Gibson % (Auto) % Eos % (Auto) % Baso % (Auto) % Neut # (Auto) (1.40-6.50) K/uL Lymph # (Auto) (1.2-3.4) K/uL Gibson # (Auto) (0.11-0.59) K/uL Eos # (Auto) (0-0.50) K/uL Baso # (Auto) (0-0.2) K/uL Immature Gran # (Auto) (0.01-0.20) K/uL Toxic Vacuolation Polychromasia PT 11.1 (9.0-12.0) Seconds INR 1.0 (0.9-1.1) APTT (21.0-31.0) Seconds PTT Ratio Sodium 136 (136-145) mmol/L Potassium 6.2 H* D (3.5-5.1) mmol/L Chloride 107 (98-107) mmol/L Carbon Dioxide 20 L (21-32) mmol/L Anion Gap 9 (3-11) BUN 39 H (6-23) mg/dl Creatinine 2.06 H (0.6-1.2) mg/dl Est Cr Clr Drug Dosing 28.0 ml/min Est GFR ( Amer) 28.0 ml/min Est GFR (Non-Af Amer) 24.1 ml/min BUN/Creatinine Ratio 18.9 (10-20) Glucose 124 H (70-99(Fasting)) mg/dl POC Glucose 122 H (70-99) mg/dl Lactate (0.4-2.0) mmol/L Calcium 7.3 L (8.6-10.3) mg/dl Magnesium 1.9 (1.7-2.4) mg/dl Total Bilirubin 0.2 (0.2-1.0) mg/dl Direct Bilirubin (0-0.2) mg/dl AST 31 (13-39) U/L ALT 25 (7-52) U/L Alkaline Phosphatase 44 (34-104) U/L Total Protein 5.4 L (6.0-8.3) gm/dl Albumin 3.3 L (3.4-5.0) gm/dl Globulin 2.1 L (2.5-4.0) gm/dl Albumin/Globulin Ratio 1.6 (0.9-2) Amylase Lipase (11-82) U/L Procalcitonin (0-0.5) ng/ml Random Cortisol mcg/dl Urine Color Urine Appearance (Clear) Urine pH (4.5-7.5) Ur Specific [place] (1.000-1.030) Urine Protein (Negative) Urine Glucose (UA) (Negative) Urine Ketones (Negative) Urine Blood (Negative) Urine Nitrite (Negative) Urine Bilirubin (Negative) Urine Urobilinogen (Negative) Ur Leukocyte Esterase (Negative) Urine RBC (0-4) /hpf Urine WBC (0-5) /hpf Ur Epithelial Cells (0-5) /lpf Urine Bacteria (Negative) SARS-CoV-2, RNA, NAAT (NEGATIVE) 01/20/23 01/20/23 01/20/23 Range/Units 05:30 03:31 00:20 WBC 29.56 H D (4.8-10.8) K/ul RBC 2.96 L (4.20-5.40) M/uL Hgb 7.9 L (12.0-16.0) g/dl Hct 26.6 L (37.0-47.0) % MCV 89.9 (80.0-100.0) fL MCH 26.7 (25.0-34.0) pg MCHC 29.7 L (32.0-36.0) g/dL RDW Std Deviation 51.7 H (36.4-46.3) fL RDW Coeff of [place]aya 15.9 H (11.5-14.5) % Plt Count 243 (130-400) K/uL MPV 10.5 (9.4-12.4) fL Immature Gran % (Auto) 2.3 % Neut % (Auto) 94.9 % Lymph % (Auto) 0.6 % Gibson % (Auto) 1.9 % Eos % (Auto) 0.1 % Baso % (Auto) 0.2 % Neut # (Auto) 28.08 H (1.40-6.50) K/uL Lymph # (Auto) 0.17 L (1.2-3.4) K/uL Gibson # (Auto) 0.57 (0.11-0.59) K/uL Eos # (Auto) 0.02 (0-0.50) K/uL Baso # (Auto) 0.05 (0-0.2) K/uL Immature Gran # (Auto) 0.67 H (0.01-0.20) K/uL Toxic Vacuolation Polychromasia 1+ PT (9.0-12.0) Seconds INR (0.9-1.1) APTT (21.0-31.0) Seconds PTT Ratio Sodium (136-145) mmol/L Potassium (3.5-5.1) mmol/L Chloride (98-107) mmol/L Carbon Dioxide (21-32) mmol/L Anion Gap (3-11) BUN (6-23) mg/dl Creatinine (0.6-1.2) mg/dl Est Cr Clr Drug Dosing ml/min Est GFR ( Amer) ml/min Est GFR (Non-Af Amer) ml/min BUN/Creatinine Ratio (10-20) Glucose (70-99(Fasting)) mg/dl POC Glucose 122 H 75 (70-99) mg/dl Lactate (0.4-2.0) mmol/L Calcium (8.6-10.3) mg/dl Magnesium (1.7-2.4) mg/dl Total Bilirubin (0.2-1.0) mg/dl Direct Bilirubin (0-0.2) mg/dl AST (13-39) U/L ALT (7-52) U/L Alkaline Phosphatase (34-104) U/L Total Protein (6.0-8.3) gm/dl Albumin (3.4-5.0) gm/dl Globulin (2.5-4.0) gm/dl Albumin/Globulin Ratio (0.9-2) Amylase Lipase (11-82) U/L Procalcitonin (0-0.5) ng/ml Random Cortisol mcg/dl Urine Color Urine Appearance (Clear) Urine pH (4.5-7.5) Ur Specific [place] (1.000-1.030) Urine Protein (Negative) Urine Glucose (UA) (Negative) Urine Ketones (Negative) Urine Blood (Negative) Urine Nitrite (Negative) Urine Bilirubin (Negative) Urine Urobilinogen (Negative) Ur Leukocyte Esterase (Negative) Urine RBC (0-4) /hpf Urine WBC (0-5) /hpf Ur Epithelial Cells (0-5) /lpf Urine Bacteria (Negative) SARS-CoV-2, RNA, NAAT (NEGATIVE) 01/19/23 01/19/23 01/19/23 Range/Units 22:00 21:21 19:09 WBC (4.8-10.8) K/ul RBC (4.20-5.40) M/uL Hgb (12.0-16.0) g/dl Hct (37.0-47.0) % MCV (80.0-100.0) fL MCH (25.0-34.0) pg MCHC (32.0-36.0) g/dL RDW Std Deviation (36.4-46.3) fL RDW Coeff of [place]aya (11.5-14.5) % Plt Count (130-400) K/uL MPV (9.4-12.4) fL Immature Gran % (Auto) % Neut % (Auto) % Lymph % (Auto) % Gibson % (Auto) % Eos % (Auto) % Baso % (Auto) % Neut # (Auto) (1.40-6.50) K/uL Lymph # (Auto) (1.2-3.4) K/uL Gibson # (Auto) (0.11-0.59) K/uL Eos # (Auto) (0-0.50) K/uL Baso # (Auto) (0-0.2) K/uL Immature Gran # (Auto) (0.01-0.20) K/uL Toxic Vacuolation Polychromasia PT (9.0-12.0) Seconds INR (0.9-1.1) APTT (21.0-31.0) Seconds PTT Ratio Sodium (136-145) mmol/L Potassium (3.5-5.1) mmol/L Chloride (98-107) mmol/L Carbon Dioxide (21-32) mmol/L Anion Gap (3-11) BUN (6-23) mg/dl Creatinine (0.6-1.2) mg/dl Est Cr Clr Drug Dosing ml/min Est GFR ( Amer) ml/min Est GFR (Non-Af Amer) ml/min BUN/Creatinine Ratio (10-20) Glucose (70-99(Fasting)) mg/dl POC Glucose 94 (70-99) mg/dl Lactate 4.1 H* 3.6 H* (0.4-2.0) mmol/L Calcium (8.6-10.3) mg/dl Magnesium (1.7-2.4) mg/dl Total Bilirubin (0.2-1.0) mg/dl Direct Bilirubin (0-0.2) mg/dl AST (13-39) U/L ALT (7-52) U/L Alkaline Phosphatase (34-104) U/L Total Protein (6.0-8.3) gm/dl Albumin (3.4-5.0) gm/dl Globulin (2.5-4.0) gm/dl Albumin/Globulin Ratio (0.9-2) Amylase Lipase (11-82) U/L Procalcitonin (0-0.5) ng/ml Random Cortisol mcg/dl Urine Color Urine Appearance (Clear) Urine pH (4.5-7.5) Ur Specific [place] (1.000-1.030) Urine Protein (Negative) Urine Glucose (UA) (Negative) Urine Ketones (Negative) Urine Blood (Negative) Urine Nitrite (Negative) Urine Bilirubin (Negative) Urine Urobilinogen (Negative) Ur Leukocyte Esterase (Negative) Urine RBC (0-4) /hpf Urine WBC (0-5) /hpf Ur Epithelial Cells (0-5) /lpf Urine Bacteria (Negative) SARS-CoV-2, RNA, NAAT (NEGATIVE) 01/19/23 01/19/23 01/19/23 Range/Units 19:06 18:59 17:10 WBC (4.8-10.8) K/ul RBC (4.20-5.40) M/uL Hgb (12.0-16.0) g/dl Hct (37.0-47.0) % MCV (80.0-100.0) fL MCH (25.0-34.0) pg MCHC (32.0-36.0) g/dL RDW Std Deviation (36.4-46.3) fL RDW Coeff of [place]aya (11.5-14.5) % Plt Count (130-400) K/uL MPV (9.4-12.4) fL Immature Gran % (Auto) % Neut % (Auto) % Lymph % (Auto) % Gibson % (Auto) % Eos % (Auto) % Baso % (Auto) % Neut # (Auto) (1.40-6.50) K/uL Lymph # (Auto) (1.2-3.4) K/uL Gibson # (Auto) (0.11-0.59) K/uL Eos # (Auto) (0-0.50) K/uL Baso # (Auto) (0-0.2) K/uL Immature Gran # (Auto) (0.01-0.20) K/uL Toxic Vacuolation Polychromasia PT (9.0-12.0) Seconds INR (0.9-1.1) APTT (21.0-31.0) Seconds PTT Ratio Sodium (136-145) mmol/L Potassium (3.5-5.1) mmol/L Chloride (98-107) mmol/L Carbon Dioxide (21-32) mmol/L Anion Gap (3-11) BUN (6-23) mg/dl Creatinine (0.6-1.2) mg/dl Est Cr Clr Drug Dosing ml/min Est GFR ( Amer) ml/min Est GFR (Non-Af Amer) ml/min BUN/Creatinine Ratio (10-20) Glucose (70-99(Fasting)) mg/dl POC Glucose 127 H (70-99) mg/dl Lactate 3.7 H* (0.4-2.0) mmol/L Calcium (8.6-10.3) mg/dl Magnesium (1.7-2.4) mg/dl Total Bilirubin (0.2-1.0) mg/dl Direct Bilirubin (0-0.2) mg/dl AST (13-39) U/L ALT (7-52) U/L Alkaline Phosphatase (34-104) U/L Total Protein (6.0-8.3) gm/dl Albumin (3.4-5.0) gm/dl Globulin (2.5-4.0) gm/dl Albumin/Globulin Ratio (0.9-2) Amylase Lipase (11-82) U/L Procalcitonin (0-0.5) ng/ml Random Cortisol mcg/dl Urine Color Urine Appearance (Clear) Urine pH (4.5-7.5) Ur Specific [place] (1.000-1.030) Urine Protein (Negative) Urine Glucose (UA) (Negative) Urine Ketones (Negative) Urine Blood (Negative) Urine Nitrite (Negative) Urine Bilirubin (Negative) Urine Urobilinogen (Negative) Ur Leukocyte Esterase (Negative) Urine RBC (0-4) /hpf Urine WBC (0-5) /hpf Ur Epithelial Cells (0-5) /lpf Urine Bacteria (Negative) SARS-CoV-2, RNA, NAAT NEGATIVE (NEGATIVE) 01/19/23 01/19/23 01/19/23 Range/Units 17:00 15:10 15:10 WBC (4.8-10.8) K/ul RBC (4.20-5.40) M/uL Hgb (12.0-16.0) g/dl Hct (37.0-47.0) % MCV (80.0-100.0) fL MCH (25.0-34.0) pg MCHC (32.0-36.0) g/dL RDW Std Deviation (36.4-46.3) fL RDW Coeff of [place] (11.5-14.5) % Plt Count (130-400) K/uL MPV (9.4-12.4) fL Immature Gran % (Auto) % Neut % (Auto) % Lymph % (Auto) % [place] % (Auto) % Eos % (Auto) % Baso % (Auto) % Neut # (Auto) (1.40-6.50) K/uL Lymph # (Auto) (1.2-3.4) K/uL [place] # (Auto) (0.11-0.59) K/uL Eos # (Auto) (0-0.50) K/uL Baso # (Auto) (0-0.2) K/uL Immature Gran # (Auto) (0.01-0.20) K/uL Toxic Vacuolation Polychromasia PT (9.0-12.0) Seconds INR (0.9-1.1) APTT (21.0-31.0) Seconds PTT Ratio Sodium (136-145) mmol/L Potassium (3.5-5.1) mmol/L Chloride (98-107) mmol/L Carbon Dioxide (21-32) mmol/L Anion Gap (3-11) BUN (6-23) mg/dl Creatinine (0.6-1.2) mg/dl Est Cr Clr Drug Dosing ml/min Est GFR ( Amer) ml/min Est GFR (Non-Af Amer) ml/min BUN/Creatinine Ratio (10-20) Glucose (70-99(Fasting)) mg/dl POC Glucose (70-99) mg/dl Lactate (0.4-2.0) mmol/L Calcium (8.6-10.3) mg/dl Magnesium (1.7-2.4) mg/dl Total Bilirubin (0.2-1.0) mg/dl Direct Bilirubin (0-0.2) mg/dl AST (13-39) U/L ALT (7-52) U/L Alkaline Phosphatase (34-104) U/L Total Protein (6.0-8.3) gm/dl Albumin (3.4-5.0) gm/dl Globulin (2.5-4.0) gm/dl Albumin/Globulin Ratio (0.9-2) Amylase Lipase (11-82) U/L Procalcitonin 11.37 H (0-0.5) ng/ml Random Cortisol 9.13 mcg/dl Urine Color Yellow Urine Appearance Slightly Cloudy (Clear) Urine pH 6.5 (4.5-7.5) Ur Specific [place] 1.015 (1.000-1.030) Urine Protein 2+ H (Negative) Urine Glucose (UA) Negative (Negative) Urine Ketones Trace H (Negative) Urine Blood Trace-intact H (Negative) Urine Nitrite Positive A (Negative) Urine Bilirubin Negative (Negative) Urine Urobilinogen Negative (Negative) Ur Leukocyte Esterase 3+ H (Negative) Urine RBC 0-4 (0-4) /hpf Urine WBC >30 H (0-5) /hpf Ur Epithelial Cells 0-5 (0-5) /lpf Urine Bacteria 2+ H (Negative) SARS-CoV-2, RNA, NAAT (NEGATIVE) 01/19/23 01/19/23 01/19/23 Range/Units 15:02 15:02 15:02 WBC 10.37 (4.8-10.8) K/ul RBC 3.42 L (4.20-5.40) M/uL Hgb 9.0 L (12.0-16.0) g/dl Hct 30.9 L (37.0-47.0) % MCV 90.4 (80.0-100.0) fL MCH 26.3 (25.0-34.0) pg MCHC 29.1 L (32.0-36.0) g/dL RDW Std Deviation 51.7 H (36.4-46.3) fL RDW Coeff of [place] 15.8 H (11.5-14.5) % Plt Count 253 (130-400) K/uL MPV 10.3 (9.4-12.4) fL Immature Gran % (Auto) 1.4 % Neut % (Auto) 95.9 % Lymph % (Auto) 1.4 % [place] % (Auto) 0.5 % Eos % (Auto) 0.6 % Baso % (Auto) 0.2 % Neut # (Auto) 9.96 H (1.40-6.50) K/uL Lymph # (Auto) 0.14 L (1.2-3.4) K/uL [place] # (Auto) 0.05 L (0.11-0.59) K/uL Eos # (Auto) 0.06 (0-0.50) K/uL Baso # (Auto) 0.02 (0-0.2) K/uL Immature Gran # (Auto) 0.14 (0.01-0.20) K/uL Toxic Vacuolation 2+ Polychromasia 1+ PT 10.9 (9.0-12.0) Seconds INR 1.0 (0.9-1.1) APTT < 20.0 L (21.0-31.0) Seconds PTT Ratio 0.7 Sodium 140 (136-145) mmol/L Potassium 3.6 (3.5-5.1) mmol/L Chloride 107 (98-107) mmol/L Carbon Dioxide 23 (21-32) mmol/L Anion Gap 10 (3-11) BUN 35 H (6-23) mg/dl Creatinine 1.83 H (0.6-1.2) mg/dl Est Cr Clr Drug Dosing 31.6 ml/min Est GFR ( Amer) 32.3 ml/min Est GFR (Non-Af Amer) 27.9 ml/min BUN/Creatinine Ratio 19.1 (10-20) Glucose 124 H (70-99(Fasting)) mg/dl POC Glucose (70-99) mg/dl Lactate (0.4-2.0) mmol/L Calcium 8.0 L (8.6-10.3) mg/dl Magnesium (1.7-2.4) mg/dl Total Bilirubin 0.3 (0.2-1.0) mg/dl Direct Bilirubin 0.0 (0-0.2) mg/dl AST 16 (13-39) U/L ALT 14 (7-52) U/L Alkaline Phosphatase 51 (34-104) U/L Total Protein 5.8 L (6.0-8.3) gm/dl Albumin 3.6 (3.4-5.0) gm/dl Globulin (2.5-4.0) gm/dl Albumin/Globulin Ratio (0.9-2) Amylase Lipase 68 (11-82) U/L Procalcitonin (0-0.5) ng/ml Random Cortisol mcg/dl Urine Color Urine Appearance (Clear) Urine pH (4.5-7.5) Ur Specific [place] (1.000-1.030) Urine Protein (Negative) Urine Glucose (UA) (Negative) Urine Ketones (Negative) Urine Blood (Negative) Urine Nitrite (Negative) Urine Bilirubin (Negative) Urine Urobilinogen (Negative) Ur Leukocyte Esterase (Negative) Urine RBC (0-4) /hpf Urine WBC (0-5) /hpf Ur Epithelial Cells (0-5) /lpf Urine Bacteria (Negative) SARS-CoV-2, RNA, NAAT (NEGATIVE) 01/19/23 Range/Units 15:02 WBC (4.8-10.8) K/ul RBC (4.20-5.40) M/uL Hgb (12.0-16.0) g/dl Hct (37.0-47.0) % MCV (80.0-100.0) fL MCH (25.0-34.0) pg MCHC (32.0-36.0) g/dL RDW Std Deviation (36.4-46.3) fL RDW Coeff of [place] (11.5-14.5) % Plt Count (130-400) K/uL MPV (9.4-12.4) fL Immature Gran % (Auto) % Neut % (Auto) % Lymph % (Auto) % Gibson % (Auto) % Eos % (Auto) % Baso % (Auto) % Neut # (Auto) (1.40-6.50) K/uL Lymph # (Auto) (1.2-3.4) K/uL [place] # (Auto) (0.11-0.59) K/uL Eos # (Auto) (0-0.50) K/uL Baso # (Auto) (0-0.2) K/uL Immature Gran # (Auto) (0.01-0.20) K/uL Toxic Vacuolation Polychromasia PT (9.0-12.0) Seconds INR (0.9-1.1) APTT (21.0-31.0) Seconds PTT Ratio Sodium (136-145) mmol/L Potassium (3.5-5.1) mmol/L Chloride (98-107) mmol/L Carbon Dioxide (21-32) mmol/L Anion Gap (3-11) BUN (6-23) mg/dl Creatinine (0.6-1.2) mg/dl Est Cr Clr Drug Dosing ml/min Est GFR ( Amer) ml/min Est GFR (Non-Af Amer) ml/min BUN/Creatinine Ratio (10-20) Glucose (70-99(Fasting)) mg/dl POC Glucose (70-99) mg/dl Lactate 3.6 H* (0.4-2.0) mmol/L Calcium (8.6-10.3) mg/dl Magnesium (1.7-2.4) mg/dl Total Bilirubin (0.2-1.0) mg/dl Direct Bilirubin (0-0.2) mg/dl AST (13-39) U/L ALT (7-52) U/L Alkaline Phosphatase (34-104) U/L Total Protein (6.0-8.3) gm/dl Albumin (3.4-5.0) gm/dl Globulin (2.5-4.0) gm/dl Albumin/Globulin Ratio (0.9-2) Amylase Lipase (11-82) U/L Procalcitonin (0-0.5) ng/ml Random Cortisol mcg/dl Urine Color Urine Appearance (Clear) Urine pH (4.5-7.5) Ur Specific [place] (1.000-1.030) Urine Protein (Negative) Urine Glucose (UA) (Negative) Urine Ketones (Negative) Urine Blood (Negative) Urine Nitrite (Negative) Urine Bilirubin (Negative) Urine Urobilinogen (Negative) Ur Leukocyte Esterase (Negative) Urine RBC (0-4) /hpf Urine WBC (0-5) /hpf Ur Epithelial Cells (0-5) /lpf Urine Bacteria (Negative) SARS-CoV-2, RNA, NAAT (NEGATIVE) Diagnostic Findings US gallbladder CLINICAL HISTORY: Abdominal pain, recent billary stent placement. COMPARISON STUDY: CT of the abdomen and pelvis performed earlier today. Right upper quadrant ultrasound December 25, 2022. FINDINGS: Hepatic echogenicity is increased. No hepatic lesions are identified. There is no biliary ductal dilatation. The biliary stent shown on CT is not well visualized by sonography. Several small gallstones are noted. There is no gallbladder wall thickening. Sonographic Caraballo sign could not be assessed for in this patient. The pancreas is obscured. There is no right hydronephrosis. IMPRESSION: 1. Cholelithiasis. No convincing evidence for acute cholecystitis. If indicated, a hepatobiliary scan could be obtained. 2. No biliary ductal dilatation. 3. Hepatic steatosis.
[2023-01-20 10:55] LABS: BUN Creatinine Ratio 20.2 (10-20); Calcium 7.5 mg/dl (8.6-10.3); Creatinine Clr Calc Pharmacy 26.5 ml/min; Est GFR (African American) 26.1 ml/min; Est GFR (Non-African American) 22.5 ml/min; Potassium 4.7 mmol/L (3.5-5.1)
--- NOTE | 2023-01-20 11:46 | Nuclear Medicine Report ---
NM hepatobiliary CLINICAL HISTORY: 68 years-old Female with RUQ pain ?acute jordy. Acute right upper quadrant abdomin al pain TECHNIQUE: Sequential anterior abdominal images were obtained through 60 minutes following the intra venous administration of 5.0 mCi of technetium-99m Choletec. COMPARISON: CT abdomen and pelvis of same day FINDINGS: There is prompt, uniform accumulation of the tracer by the liver. There is normal filling of the int rahepatic ducts, common bile duct and normal excretion of the tracer into the duodenum. The gallblad kevin fills normally. Moderate enterogastric reflux. IMPRESSION: Moderate enterogastric reflux with otherwise unremarkable hepatobiliary study. No scint igraphic evidence for acute cholecystitis or common bile duct obstruction. ACT 112: Negative or not required by law. The above report was generated using voice recognition software. It may contain grammatical, syntax o r spelling errors. Electronically signed by: Darwin Cohen M.D. 01/20/2023 11:45 AM
--- NOTE | 2023-01-20 13:48 | Pharmacy Report ---
Pharmacy Glycemic Short Note 2 - Date of Service January 20, 2023 - Glycemic Short BSG Results (Last 24 hours): 01/19/23 01/19/23 01/19/23 15:02 18:59 22:00 Glucose 124 H POC Glucose 127 H 94 01/20/23 01/20/23 01/20/23 00:20 03:31 05:30 Glucose 124 H POC Glucose 75 122 H 01/20/23 01/20/23 01/20/23 07:39 09:59 10:17 Glucose 141 H POC Glucose 122 H 128 H 01/20/23 11:43 Glucose POC Glucose 97 OUTPATIENT ANTIDIABETIC REGIMEN: * Lantus 5 units HS; ozempic 0.25-0.5 sq Friday * A1c 7.8% 11/15/22 ASSESSMENT: * Patient admitted with abdominal pain/recurrent UTI. Ordered diet with lunch * BSGs have been within goal range- continue current Basal * Will have conservative novolog ordered- weight based stress 1- monitor PLAN FOR INPATIENT GLYCEMIC CONTROL: * Hold outpatient oral diabetes medications * Basal insulin * Lantus 5 units HS * Bolus insulin * NovoLog per scale ACHS or Q6hrs while NPO * Goal Range: Low 110 mg/dL - High 140 mg/dL * Correction Factor: 50 mg/dL/unit * Nutritional / Prandial insulin per carb ratio of 1 unit per 18 grams CHO consumed
--- NOTE | 2023-01-20 17:11 | Hospitalist Progress Note ---
Date of Service January 20, 2023 Assessment & Plan (1) Abdominal pain: Plan: -Admit to the PCU on tele and pulse oximetry -Continues to be afebrile, hemodynamically stable on on room air -Etiology of the abdominal pain is still unclear, however, suspect some sort of biliary cause of pain given that she has right upper quadrant pain that may have improved with still evident with palpation. Suspect that she may have passed a biliary stone as she is known to have cholelithiasis. -Right upper quadrant ultrasound and HIDA scan negative for cholecystitis or choledocholithiasis. -General surgery has no indication for surgical intervention at this time. -Continue Rocephin and metronidazole in case of urinary source, awaiting culture results -Lactate remains elevated at 4.0, continue to trend -Advance diet to carb consistent due to tolerance of diet. -Stool studies pending, have low suspicion for infectious etiology for colitis (2) Lactate blood increase: Plan: -See abd pain (3) Hypertension: Plan: -Soft BP's on arrival to the ED, currently low-normal S/P 3L NSS -Continue Stress dosed steroids (4) Rheumatoid arthritis: Plan: -Hold Prednisone for now while on Stress dosed steroids (5) (HFpEF) heart failure with preserved ejection fraction: Plan: -Currently Euvolemic S/P 3L NSS in the ED -Hold prn lasix for now -Monitor for volume overload (6) Type 2 diabetes mellitus: Plan: -Change sugar checks to ACHS now that patient is eating -Continue home lantus of 5 units HS -Correction factor of 50 with CR of 15 when able to eat -Will likely need to adjust regimen with stress dose steroids (7) Paroxysmal atrial fibrillation: Plan: -Currently in NSR -Continue amiodarone, metoprolol, and eliquis (8) Hypothyroidism: Plan: -Continue levothyroxine (9) Bacteria in urine: Plan: -Suspect colonization. -Does not seem to have any current symptoms of UTI except for urgency, and no dysuria, polyuria, fever, or nausea/vomiting. -Continue Rocephin and Flagyl Plan Diet: Carb Consistent DVT Prophylaxis: Eliquis Dispo: Tele Code Status: Full Code Admission and Anticipated Discharge Date Admission Date: January 19, 2023 Supervising Physician Co-Signing Physician Notes I personally examined the patient and verified all geronimo points of history and exam, discussed case, and agree with decision making with Dr Simental Feels good now. Worries about what might happen again. Notes that normally her blood pressures run high, whenever she was in with gallbladder/gallstone issues a few weeks ago her blood pressure was low, notes that yesterday what got her attention making her feel like she should even check her blood pressure was simply being lightheaded. Was about 70/30, EMS got a similar blood pressure. She actually feels fine now. Vitals noted, in general she is awake and alert pleasant no distress. HEENT normocephalic atraumatic mucous membranes moist. Breathing is unlabored no accessory muscle use good effort. Abdomen is soft mildly distended epigastric and right upper quadrant tenderness without guarding rebound or rigidity. The rest of her abdomen is benign. CBC noted, most notably marked leukocytosis, hemoglobin 7.9. Basic metabolic panel noted with creatinine up to about 2 and potassium 6.2rechecks showing improvement. CRP 26.5 Sepsisor at least SIRSbut with hypotension and mild AISHWARYA, 1 could certainly raise concern about even septic shock in the field/present on admissionfortunately she is now hemodynamically stable and looks clinically well. Source is not entirely clear, but given her recent issues with gallstones, as well as her lipase jumping up, I do wonder if she did not pass a small stone. Her inflammatory markers are consistent with an infection, but her picture is otherwise not entirely consistent with cholangitisshe does not have a fever, she does have some right upper quadrant pain but really only on exam, and her bilirubin is lowcontinue empiric antibiotics and follow closely. I doubt UTI given that she does not have symptomsit seems like she probably has a decent amount of asymptomatic bacteriuria, but also a decent amount of true UTIs manifest by urgency, but empiric antibiotics for a biliary process should cover urinary pathogens as well. Hyperkalemia resolved fairly quicklyI wonder if some of it was spurious/hemolysis in the lab, but I suppose a degree of Bactrim plus poor perfusion plus if her stress dose steroids had a bit of a mineralocorticoid effect that could also have raised her potassiumat any rate now back to normal persistently. Continue current care, follow closely, serial exams/serial labs. Otherwise as above Subjective Patient seen at bedside this morning. No acute events reported overnight. Patient reports that the majority of the pain that she had yesterday is actually resolved. No bowel movements today. Overall appears well, however, patient is rightfully concerned about a blood pressure she had yesterday in the 70s over 30s which was confirmed by EMS. Today, patient reports that she feels overall pretty well and is very hungry. Denies any new complaints at this time. Review of Systems Review of Systems: All systems reviewed & are unremarkable except as noted in HPI & below Physical Exam Constitutional: WD/WN, vitals as above Eyes: + anicteric sclerae Neck: trachea midline, no thyromegaly Respiratory: normal respiratory effort, lungs clear to auscultation Cardiovascular: RRR, no murmur, no edema Gastrointestinal (Abdomen): Inspection/Auscultation: abdomen normal to inspection and normal bowel sounds Percussion/Palpation: + abdomen tender (RUQ) and abdomen soft Musculoskeletal: Head/Neck/Chest: normocephalic and head atraumatic Skin: no rashes, warm and dry Neurologic: moves all extremities Psychiatric: A+Ox3, euthymic affect Results & Data Results & Data Vital Signs (Past 12 Hours) Vital Signs Temp Pulse Pulse Resp BP Pulse Ox O2 Del Method 01/20/23 16:38 36.8 C 75 17 120/70 94 Room Air 01/20/23 11:52 36.6 C 78 17 130/76 94 Room Air 01/20/23 09:44 68 01/20/23 08:03 36.8 C 71 17 100/65 94 Room Air (3) Hypertension Hypertension type: essential hypertension Qualified Code(s): I10 - Essential (primary) hypertension (4) Rheumatoid arthritis Rheumatoid arthritis location: multiple sites Rheumatoid factor presence: unspecified presence Qualified Code(s): M06.9 - Rheumatoid arthritis, unspecified (8) Hypothyroidism Hypothyroidism type: unspecified Qualified Code(s): E03.9 - Hypothyroidism, unspecified
[2023-01-20 17:23] LABS: BUN Creatinine Ratio 21.2 (10-20); C Reactive Protein 26.45 mg/dl (0-0.5); Calcium 7.6 mg/dl (8.6-10.3); Creatinine Clr Calc Pharmacy 30.5 ml/min; Est GFR (African American) 31.1 ml/min; Est GFR (Non-African American) 26.8 ml/min; Potassium 4.8 mmol/L (3.5-5.1)
[2023-01-20] MEDS ORDERED: cefTRIAXone SODIUM 2,000 MG in DEXTROSE 5% 50 ML IV SCH (18:00)
--- NOTE | 2023-01-20 18:56 | Billing Data ---
Date of Service January 20, 2023 Coding Level of Care Code 22265 SUB INP/OBS CARE MIN
[2023-01-20] MEDS: GABAPENTIN 300 MG CAP PO SCH (20:29)
[2023-01-20] MEDS: ADVANCED PROBIOTIC 1250 MG CAPSULE PO SCH (20:29)
[2023-01-20] MEDS: MAGNESIUM OXIDE 400 MG TAB PO SCH (20:29)
[2023-01-20] MEDS: AMIODARONE 200 MG TAB PO SCH (20:29)
[2023-01-20] MEDS: LANTUS PER UNIT CHARGE SQ SCH (20:34)
[2023-01-21] MEDS: metroNIDAZOLE 500 MG/100 ML BAG IV SCH ×2 (04:25→11:38)
[2023-01-21] MEDS: HYDROCORTISONE SOD 50 MG in SYRINGE 0 ML IV SCH ×2 (04:25→09:22)
[2023-01-21] MEDS: LEVOTHYROXINE SODIUM 100 MCG TABLET PO SCH (05:41)
[2023-01-21 07:23] LABS: Hematocrit (blood only) 24.2 % (37.0-47.0); Hemoglobin 7.1 g/dl (12.0-16.0); Mean Corpuscular Hemoglobin 26.5 pg (25.0-34.0); Mean Corpuscular Hgb Conc 29.3 g/dL (32.0-36.0); Mean Corpuscular Volume 90.3 fL (80.0-100.0); Mean Platelet Volume 10.5 fL (9.4-12.4); Platelet Count 176 K/uL (130-400); RDW Standard Deviation 52.1 fL (36.4-46.3); Red Blood Count 2.68 M/uL (4.20-5.40); White Blood Count 18.86 K/ul (4.8-10.8)
[2023-01-21 07:34] LABS: Albumin Globulin Ratio 1.5 (0.9-2); Albumin Level 3.2 gm/dl (3.4-5.0); BUN Creatinine Ratio 22.7 (10-20); Bilirubin,Total 0.2 mg/dl (0.2-1.0); Calcium 7.8 mg/dl (8.6-10.3); Creatinine Clr Calc Pharmacy 35.4 ml/min; Est GFR (African American) 37.1 ml/min; Globulin 2.2 gm/dl (2.5-4.0); Magnesium 2.3 mg/dl (1.7-2.4); Potassium 4.5 mmol/L (3.5-5.1); Total Protein 5.4 gm/dl (6.0-8.3)
[2023-01-21 07:44] LABS: Prothrombin Time 10.5 Seconds (9.0-12.0)
[2023-01-21] MEDS: INSULIN ASPART PER UNIT CHARGE SC SCH ×2 (07:46→11:44)
[2023-01-21] MEDS: METOPROLOL SUCC 50MG EXT REL TAB PO SCH (07:51)
[2023-01-21] MEDS: PANTOprazole 40 MG TAB PO SCH (07:51)
[2023-01-21] MEDS: POLYETHYLENE (MIRALAX) 17 GM PACK PO SCH (07:51)
[2023-01-21 08:05] LABS: Basophils # (auto) 0.02 K/uL (0-0.2); Basophils % (auto) 0.1 %; Eosinophils # (auto) 0.01 K/uL (0-0.50); Eosinophils % (auto) 0.1 %; Hypochromasia Present; Immature Granulocytes # (auto) 0.24 K/uL (0.01-0.20); Immature Granulocytes % (auto) 1.3 %; Lymphocytes # (auto) 0.57 K/uL (1.2-3.4); Monocytes # (auto) 0.72 K/uL (0.11-0.59); Monocytes % (auto) 3.8 %; Neutrophils % (auto) 91.7 %
--- NOTE | 2023-01-21 16:55 | Discharge Summary ---
Date of Service January 21, 2023 Admission HPI Per Admitting Provider Daniela is a 68 year old female with a PMH significant for rheumatoid arthritis on chronic prednisone, type II DM, TIA, hypothyroidism, chronic anemia, heart failure with preserved ejection fraction, CKD 3B, A-fib with RVR on apixaban, hyperlipidemia on Praluent who presented to the [facility] ED on 01/19/23 with chief complaints of abdominal pain. Vitals were stable in the ED. Labs were significant for a lactate of 3.7, LFT's WNL, WBC WNL, UA suggestive of UTI. Chest xray was read as "No acute cardiopulmonary findings.". CT of the abd/pelvis WO con was read as "1. Common bile duct stent in place. Pneumobilia, as expected. No biliary ductal dilatation. No CT evidence for acute pancreatitis. Pancreatic stent likely passed spontaneously. 2. Cholelithiasis. No gallbladder distention. No change in appearance minimal stranding adjacent to the gallbladder. Given stability, the findings are not strongly suggestive of acute cholecystitis although a hepatobiliary scan could be obtained as indicated. 3. Sigmoid diverticulosis. No evidence for acute diverticulitis. No bowel obstruction. 4. Right-sided nephrolithiasis.". Prior to admission the patient was given a dose of ceftriaxone, 2L NSS, and 4 mg IV morphine. AT the time of the exam the patient was lying in bed in no acute distress with her sitting bedside. She states that she woke up this am and felt fine. She had breakfast and was relaxing outside. She then had some RUQ abd discomfort/pain and felt as though she needed to have a bowel movement. She went to the bathroom and had a large, foul smelling bowel movement. While having the bowel movement she got lightheaded and diaphoretic. She checked her BP and her systolic BP was in the 70's, which is why she came to the ED. She denies recent fevers or chills, has been eating and drinking well, denies chest pain, SOB, cough, increased LE swelling and recent trauma. She does state that after discharge she noticed that her urine was still dark and cloudy. She states that she has a history of recurrent UTI's and her only warning signs are when her urine becomes dark abd cloudy. She was seen by Dr. Ramos in the Urology clinic on 01/06. Due to her symptoms he obtained another UA with culture and started her on Prophylactic Bactrim, one daily. She states that this morning she urinated after waking and noticed that her urine was very dark and cloudy; she has been taking the Bactrim as prescribed by Urology. Currently she states that she is experiencing RUQ pain and the sensation of abdominal fullness/distention. She has no other complaints at this time. Per chart review, the patient was admitted to [facility] from 12/25-01/01 for septic shock thought to be due to Pyelonephritis from Proteus infection. During her admission she was evaluated by GI due to CT findings showing possible cholecyst itis. She underwent ERCP completed on 12/26. Choledocholithiasis found. No pus or signs of cholangitis seen. Biliary stent placed at that time. She initially required vasopressors in the ICU, she was given a stress dose of steroids and was able to be weaned off pressors. Her admission was complicated by afib RVR. Cardiology was consulted and the patient underwent electrocardioversion on 01/01. She was discharged on amiodarone on top of her typical metoprolol and Eliquis. She completed a 7 day course of Zosyn during her admission and blood cultures were negative prior to discharge. Please refer to Dr. Keane's attestation for any changes to the treatment plan Principal Diagnosis Sepsispresumed SIRS from passage of gallstone and transient pancreatitis, having to treat as though there may have been a degree of cholangitis given her leukocytosis. Improving nicely. Discharge Exam In general she is awake and alert pleasant no distress. HEENT normocephalic atraumatic mucous membranes moist. Cardio is regular rate. Breathing is unlabored no accessory muscle use good effort. Abdomen is soft nondistended nontender no masses organomegalymost notably her right upper quadrant tenderness that was moderate and present yesterday is gone, her epigastric tenderness is gone from moderate to extremely mild. She has no guarding rebound or rigidity. Skin shows no rashes, no pallor or icterus. Discharge Data Allergies Allergy/AdvReac Type Severity Reaction Status Date / Time tetracycline Allergy Severe RASH ON Verified 01/16/23 13:30 FACE methenamine Allergy Intermediate Swelling Verified 01/16/23 13:30 of Lip/Tongue/Throat Zzxiopg-[id number] Reductase AdvReac Intermediate LE edema Verified 01/16/23 13:30 Inhibitor [Gbefhkj-Ohs-Slh Reductase Inhibitor] oxycodone AdvReac Mild Drowsy Verified 01/16/23 13:30 Consultations 01/19/23 16:56 ED Decision to Admit Stat 01/19/23 21:27 Consult General Surgery Routine Ordered Studies 01/19/23 14:56 CT abd pelvis wo con Stat 01/19/23 18:39 US gallbladder Stat Hospital Course (1) Abdominal pain: - Initially with appearance of sepsisuncertain source. No urinary symptoms of note, she does have a questionable history of recurrent UTIs versus some UTIs and some asymptomatic bacteriuriaurine culture is showing gram-negative rods, she is getting better on ceftriaxone and her most recent urine culture was P roteus resistant only to Bactrimso sending home on cefdinir should cover. That said, I am far more suspicious of a biliary sourcegiven that she had upper abdominal pain and abrupt increase in lipase, as well as the fact that she has recently had biliary issues/stones/stenting. She is improved nicely on ceftriaxone and Jake good/eating well/improved exam and would like to go homewe will send home on cefdinir and Landy nurse navigator is working on setting up expedited surgical follow-upshe was getting set up for an elective cholecystectomy, she and I both agree that elective should happen sooner rather than later given her recurrent issues. Anemia notedno signs or symptoms of blood loss, she notes that she gets outpatient IV ironand is actually set up to get some on Friday. We discussed giving her her iron prior to discharge and saving her trip back, but she was very anxious to get home and noted that she would rather simply come back Friday for her previously scheduled appointment. (2) Lactate blood increase: Due to above (3) Hypertension: Actually hypotension on admissionconcern about septic shockfortunately very short-lived, fluid resuscitation and stress dose steroids helped. (4) Rheumatoid arthritis: Was on stress dose hydrocortisone, home on home prednisone. (5) (HFpEF) heart failure with preserved ejection fraction: Euvolemic (6) Type 2 diabetes mellitus: Outpatient follow-up (7) Paroxysmal atrial fibrillation: -Currently in NSR -Continue amiodarone, metoprolol, and eliquis (8) Hypothyroidism: -Continue levothyroxine (9) Bacteria in urine: -Suspect colonization. -See above, but I suspect cefdinir will cover it anyway. Plan Home, close surgical follow-up, PCP follow-up Total Time Total Time Spent Total Time Spent (In Minutes): Less than 30 Discharge Plan Discharge Items Patient Disposition: Home - Self-Care Reason For Visit: ABD PAIN Discharge Diagnosis: Abdominal Pain Activity: Per Instructions section Non-emergency contact: Primary Care Provider and Surgeon Call non-emergency contact if: you have any medication questions and your pain is not controlled Follow-up/Referrals: Corby Arzola MD [Primary Care Provider] - 01/28/23 10:20 am (will be seen by Loraine Jackson PA-C ) Diet: Regular Ambulatory Orders: Complete Blood Count no Diff (Routine) Timeframe: 2 Days Location: Determined by Patient Ordered By: Eugenio Lin Attending Provider Instructions: You were seen in the hospital for concern of abdominal pain and generally unwell feeling. While you are here, seem that your symptoms progressively had gotten better on their own without much intervention. He only required minimal amounts of pain medication. Over the course of 24 hours, your symptoms and almost entirely resolved and you had gone back to eating a regular diet without complication. We generally feel that your symptoms are related to your recent gallbladder stent placement and surgery. There is a possibility that a gallst one had become lodged in your bile duct which had eventually made its way through which had caused the abdominal pain and possibly the drop in blood pressure as well. For this reason and with your bacterial growth in your urine, we will treat you with a 2-week course of cefdinir and metronidazole which we will treat any possible infection that be associated with your gallbladder as well as urinary tract infection. Do not take your prophylactic Bactrim while you are taking these antibiotics. Please follow-up with your general surgeon as soon as possible to help evaluate care and treatment. Otherwise we have no other changes in your medications at this time. Lastly I would like to check a CBC (blood levels) 2 days after discharge. This order has been placed and you can get this done at any [facility] lab. It has been a pleasure to be part of your care and we wish you the best in both your health and your recovery. Pending Studies at Discharge: No Stand-Alone Forms: My [facility] Warm Health, Smoking Cessation Medications and DC Order Prescriptions: New metronidazole 500 mg tablet 500 mg PO Q8H 14 Days Qty: 42 0RF cefdinir 300 mg capsule 300 mg PO BID 21 Days Qty: 42 0RF Continued levothyroxine 100 mcg tablet 100 mcg PO QAM Qty: 90 3RF prednisone 5 mg tablet 10 mg PO QPM Rx Instructions: CONFIRMED W/ PATIENT Eliquis 5 mg tablet 5 mg PO BID Qty: 180 3RF metoprolol succinate 100 mg tablet extended release 24 hr 100 mg PO BID Qty: 180 3RF albuterol sulfate [Ventolin HFA] 90 mcg/actuation HFA aerosol inhaler 2 puff inhalation QID PRN (Reason: shortness of breath or wheezing) Qty: 8.5 1RF insulin glargine [Lantus Solostar U-100 Insulin] 100 unit/mL (3 mL) insulin pen 5 unit subcut DAILY Qty: 15 6RF Rx Instructions: Inject 5 units into the abdomen once daily. (DME) pen needle, diabetic 31 gauge x 1/4" needle See Rx Instructions .Route Qty: 100 10RF Rx Instructions: As directed sulfamethoxazole-trimethoprim [Bactrim] 400-80 mg tablet 1 tab PO DAILY Qty: 90 3RF Ozempic 0.25 mg or 0.5 mg(2 mg/1.5 mL) pen injector 0.25 mg subcut ONCE Qty: 1.5 3RF Rx Instructions: Take this med every Friday by way of injection of 0.25 mg in the abdomen. Praluent Pen 75 mg/mL pen injector 75 mg subcut Q14D Qty: 2 2RF Rx Instructions: Inject 75 mg into the abdomen once every 2 weeks. magnesium 250 mg Tablet 250 mg PO HS cholecalciferol (vitamin D3) [Vitamin D3] 1,000 unit Capsule 1,000 unit PO QAM acetaminophen [Tylenol Extra Strength] 500 mg Tablet 1,000 mg PO Q6H PRN (Reason: Pain) amiodarone 200 mg tablet 200 mg PO HS cyclobenzaprine 10 mg tablet 10 mg PO HS omeprazole 40 mg capsule,delayed release(DR/EC) 40 mg PO QAM gabapentin 100 mg capsule 100 - 300 mg PO HS Rx Instructions: TAKE ONE TO THREE CAPSULES BY MOUTH DAILY Advanced Probiotic 625 mg (10 billion cell) capsule 1 cap PO HS furosemide [Lasix] 20 mg tablet 20 mg PO DAILY PRN (Reason: edema of legs) Qty: 30 5RF Discharge Orders: Discharge Order (Routine); Ordered 01/21/23 Ordered By: Eugenio Leon/Other Patient Handouts: Managing Type 2 Diabetes, Special Foot [facility] for Diabetes Admission Data Admit Date/Time: 01/19/23 18:00 Attending Provider: Jason Lopez Admit Provider: Adam Keane Primary Care Provider: Corby Arzola Other Providers: Adam Keane ; Yakov Palacios Other Interventions: Discharge Summary Assessment (RN) Last Done: 01/21/23 12:43 Coding Level of Care Code 43328 IN/OBS DISCH 30 MIN/LESS Diagnoses Abdominal pain R10.9 Lactate blood increase R79.89 Hypertension I10 Hypertension type: essential hypertension Rheumatoid arthritis M06.9 Rheumatoid arthritis location: multiple sites Rheumatoid factor presence: unspecified presence (HFpEF) heart failure with preserved ejection fraction I50.30 Type 2 diabetes mellitus E11.9 Paroxysmal atrial fibrillation I48.0 Hypothyroidism E03.9 Hypothyroidism type: unspecified Bacteria in urine R82.71
== END 2023-01-21 13:35 | disposition home or self-care (01) ==
LOC: 2S 14:24 → ED 14:24 → SUATTDRO 18:00 → 2S 20:56

== ENCOUNTER 2023-02-27 19:39 | Inpatient (IN) ==
[2023-02-27] MEDS ORDERED: SODIUM CHLORIDE 0.9% 1000ML 1,000 ML IV ONE ×2 (19:55→21:12)
[2023-02-27] MEDS ORDERED: ACETAMINOPHEN 1,000 MG/100 ML VIAL IV STA (19:55)
--- NOTE | 2023-02-27 20:00 | Emergency Department Note ---
Impression & Plan Septic shock, Acute UTI (urinary tract infection), Leukocytosis, Elevated procalcitonin, Elevated lipase ED Provider Note HISTORY OF PRESENT ILLNESS: Patient is a 68-year-old female presenting with nausea, lower abdominal pain and hypotension. Patient reports that earlier this evening she "felt off" and took her blood pressure and it was 70s/40s. Reports she felt diaphoretic and generally unwell. She then went to the bathroom and was in there for 30 minutes with lower abdominal cramping and multiple episodes of passage of soft stool. Denies any chest pain or shortness of breath. Denies any fevers. Denies any dysuria or hematuria. Reports that she often has episodes in which her blood pressure goes low when she comes to the hospital because "things go south quickly." Patient is currently complaining of a generalized headache. ROS: as above PHYSICAL EXAM: Constitutional: Patient appears in no acute distress. HENT: Head: Normocephalic and atraumatic. Eyes: EOMI, PERRL Mouth/Throat: Mucous membranes moist. Neck: Trachea midline. Neck supple. Cardiovascular: RRR, No murmurs, rubs or gallops. Intact distal pulses. Pulmonary/Chest: No respiratory distress. Breath sounds clear and equal bilaterally. No wheezes or rales. Abdominal: BS +. Abdomen soft, no rebound or guarding. Generalized tenderness to palpation. Musculoskeletal: No edema, tenderness or deformity noted. Skin: Warm and dry. No rash, erythema, pallor or cyanosis Psychiatric: Appropriate mood and affect for situation. Neurological: Alert and keenly responsive. CN II-XII grossly intact, moving all extremities equally and fully. MDM: - Vitals signs showed hypotension and borderline tachycardia. - History obtained via patient. Patient presents with lower abdominal pain, nausea and hypotension. Patient reports she was not feeling well today and took her blood pressure it was hypotensive. She felt generally unwell. Has had lower abdominal pain and nausea. Denies any notable fevers at home. Denies any chest pain or shortness of breath. - Chronic conditions affecting care: HFpEF; CKD; HTN; HLD; DM-2 - Differential diagnoses include, but are not limited to: UTI; pneumonia; ACS; diverticulitis; appendicitis; pyelonephritis - Order placed for continuous cardiac monitoring. At this time, monitor showed rate of 85 bpm with normal sinus rhythm per my interpretation. - External medical records reviewed. - EKG reviewed by myself showed normal sinus rhythm. Rate tachycardic at 103 bpm. Very poor baseline. QTc 453. No acute ischemic changes, but again the ECG has significant background artifact. - Laboratory workup interpreted by myself showed leukocytosis (WBC 16.82); elevated lactate (3.3); hypomagnesemia (Mg 1.6); elevated procalcitonin (12.88); elevated troponin (14.6); CKD (Cr 1.45); elevated lipase (260); elevated BNP (147) - UA shows evidence of possible infection, with positive nitrites, leukocyte esterase and WBC. But no bacteria noted. - Blood cultures obtained. - Patient given a total of 2L NS in ER. - Empirically started on IV vancomycin and cefepime. - CT abdomen/pelvis wo contrast showed normal appendix. Noted to have a non obstructing right lower pole renal calculus. No obvious source of infection. Noted to have a common bile duct stent with pneumobilia - No further fluid resuscitation, given patient's heart failure history. She also had episodes of hypoxia in the emergency department and was started on a new 2 L nasal cannula. She was subsequently started on peripheral Levophed for blood pressure management. - Right IJ central line was placed by myself, as patient only have one peripheral IV and patient had no useful peripheral veins found with the IV team. Please see procedure note - CXR showed appropriate placement of the patient's IJ and no obvious pulmonary edema or pneumonia, per my interpretation. - Discussed case with sr. social media & mobile manager about patient's case and need for admission - Discussed case with ICU JUSTO, Dean. - Discussed case with hospitalist, Dr. Irene. - Patient admitted to [facility] Hospitalist service for further evaluation and management. I provided 45 minutes of critical care time to this patient's care outside of billable procedures. PROCEDURE: Central Venous Catheter Indication: Vasopressor support; no peripheral IV Catheter type: Triple venous catheter Location: Right internal jugular vein Verbal consent was obtained after the risks and benefits were explained, including but not limited to pneumothorax, hemothorax, vessel injury, bleeding, scarring, infection, pain, and bone/joint/nerve damage. At this time, the risks of the procedure are less than the risks of NOT performing the procedure. A time out was taken and the correct patient and site identified. The patient was placed in the Trendelenburg position and the skin was prepped in the standard fashion with chlorhexidine and full sterile drapes applied. The proper landmarks were identified with ultrasound, anesthetized with 1% lidocaine without epi nephrine, and the needle was inserted through the skin in the standard fashion. The needle was carefully advanced into blood vessel lumen under ultrasound guidance. The guidewire was placed uneventfully. The vessel is dilated and the catheter was placed. It was sutured into position. There was good blood return from all ports. The patient tolerated the procedure well and there were no complications. Post procedure x-ray was ordered and showed appropriate placement. ASSESSMENT AND PLAN: Diagnosis: septic shock; hypotension; UTI; leukocytosis; elevated procalcitonin Plan: admit Past Med/Surg History Medical History (HFpEF) heart failure with preserved ejection fraction Anemia of chronic disease Hx iron infusions (most recent 01/31/23, [facility]) Anxiety Chronic kidney disease, stage 3b Diabetes mellitus type II, controlled GERD (gastroesophageal reflux disease) History of COVID-19 2020- hospitalized at [facility] for 9 days, no issues now History of MRSA infection lumbar surgical incision s/p vanco/ceftriaxone/bactrim per 04/2019 [facility] discharge summary History of recent blood transfusion 09/18/22 @ [facility] History of stroke Vertebrobasilar artery brainstem stroke 2020, slight residual left sided weakness Given TPA on 04/21/2021 with resolution of symptoms Hyperlipidemia Hypertension Hypothyroidism Immunosuppression due to drug therapy *Prednisone daily* Lumbar radiculopathy Neuropathy Paroxysmal atrial fibrillation x2 ablations, 12/2022 Recurrent UTI Rheumatoid arthritis Sepsis UTI (09/2022) Spinal stenosis Stenosis of left internal carotid artery 50-69% stenosis of left ICA per 04/2021 neck CTA Stenosis of left vertebral artery Approximately 90% stenosis within V4 segment of left vertebral artery per 04/21/2021 neck CTA Surgical History History of x2 History of cardiac radiofrequency ablation 12/13/22 and 12/31/22 ([facility]) History of ERCP W/STENT PLACEMENT History of esophagogastroduodenoscopy (EGD) History of hysterectomy total History of lumbar surgery Lumbar Spine Wound Revision 2018 History of total left knee replacement Hx laparoscopic cholecystectomy (02/12/23) Robotic Assisted Laparoscopic Cholecystectomy (Not Applicable) - Otto Fish, DO Hx of colonoscopy Hx of tonsillectomy Status post laminectomy with spinal fusion L2-L5 laminectomy/fusion (12/24/18): Grade view 1, MAC#3, ETT 7.0 Family History Father Diabetes Lung cancer Cancer Hypertension Mother Malignant neoplasm of brain Diabetes Brain tumor Cancer Hypertension Aunt Breast cancer Sister Hypertension Other No family history of adverse response to anesthesia Denies family history of Ovarian cancer Prostate cancer Myocardial infarction Colorectal cancer Social History Smoking Status: Never smoker Second Hand Exposure: Yes (HX); Do You Dip or Chew Tobacco: No; Hx Alcohol Use: No Hx Substance Use: No Preferred Language: Citizen Of [place] Communication Ability: Effective Visual Impairment: No Limitations Hearing Ability: Normal Tube Teller Required: No Beliefs That Will Affect Care: None marital status: Current Living Situation: Spouse Current Living Situation Comment: 1 level home current occupational status: retired How many Children do You have: 2 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 Feels Safe at Home: Yes Childhood Exposure to Second-Hand Smoke: Yes Diet: gluten free caffeine: Yes Dental Care, Regularly: Yes Physical Activity Frequency: 5-6 Times per Week Physical Activity Frequency Comment: gym Seatbelt Use: always Sunscreen Use: Yes Do you think of yourself as: straight/heterosexual Assistive Devices: Glasses Allergies Allergies Allergy/AdvReac Type Severity Reaction Status Date / Time tetracycline Allergy Severe Facial rash Verified 02/27/23 22:09 methenamine Allergy Intermediate Swelling Verified 02/27/23 22:09 of Lip/Tongue/Throat Qwrcxcv-ROB-XeR Reductase AdvReac Intermediate LE edema Verified 02/27/23 22:09 Inhibitor [Umobrcw-Bip-Pxh Reductase Inhibitor] oxycodone AdvReac Mild Drowsy Verified 02/27/23 22:09 Home Meds Home Medications Medication Instructions Recorded Confirmed cholecalciferol (vitamin D3) 25 1,000 unit PO QAM 10/26/18 02/27/23 mcg (1,000 unit) capsule (Vitamin D3) magnesium 250 mg tablet 250 mg PO HS 10/26/18 02/27/23 acetaminophen 500 mg tablet 1,000 mg PO Q6H PRN Pain 12/24/18 02/27/23 (Tylenol Extra Strength) cyclobenzaprine 10 mg tablet 10 mg PO HS 04/21/21 02/27/23 L.acidop,casei,lactis,rham-B.lact,reyes 1 cap PO HS 12/12/22 02/27/23 625 mg (10 billion cell) capsule (Advanced Probiotic) gabapentin 100 mg capsule 100 - 300 mg PO HS 12/12/22 02/27/23 omeprazole 40 mg capsule,delayed 40 mg PO QAM 12/12/22 02/27/23 release amiodarone 200 mg tablet 200 mg PO HS 01/19/23 02/27/23 amlodipine 5 mg tablet 5 mg PO QAM 02/27/23 02/27/23 insulin glargine 100 unit/mL (3 5 unit subcut HS 02/27/23 02/27/23 mL) subcutaneous pen (Lantus Solostar U-100 Insulin) semaglutide 0.25 mg or 0.5 mg (2 0.5 mg subcut Q7D 02/27/23 02/27/23 mg/1.5 mL) subcutaneous pen injector (Ozempic) Previous Rx's Medication Instructions Recorded levothyroxine 100 mcg tablet 100 mcg PO QAM #90 tabs 09/16/22 apixaban 5 mg tablet (Eliquis) 5 mg PO BID #180 tabs 12/02/22 furosemide 20 mg tablet (Lasix) 20 mg PO DAILY PRN edema of legs 12/13/22 #30 tabs alirocumab 75 mg/mL subcutaneous 75 mg subcut Q14D #2 mL 12/23/22 pen injector (Praluent Pen) pen needle, diabetic 31 gauge x #100 ea 01/07/2310/16" metoprolol succinate 100 mg 100 mg PO BID #180 tabs 01/13/23 tablet,extended release 24 hr amoxicillin 500 mg-potassium 1 tab PO Q12H 7 days #14 tabs 02/27/23 clavulanate 125 mg tablet Results & Data (ED) Vital Signs Vital Signs - 24 hr 02/27/23 19:43 02/27/23 19:55 02/27/23 19:56 Temperature 36.7 C Temperature Source Temporal Artery Scan Pulse Rate 114 H 98 H Pulse Rate [Apical] Pulse Rate from SpO2 Sensor Respiratory Rate 18 Respiratory Effort / Characteristics Non-Labored Spontaneous Respiratory Depth Normal Blood Pressure 98/56 L Blood Pressure [Left Arm] Blood Pressure Mean 70 Blood Pressure Mean [Left Arm] Blood Pressure Position Sitting Pulse Oximetry 99 96 Oxygen Delivery Method Room Air Oxygen Flow Rate Sepsis Recent Fever Within 48 Hours No Sepsis New/Unexplained Change in Mental Status No Sepsis Action Taken by Nursing No Action Required Oxygen Flow Rate - Titration Pulse Oximetry Post Tiitration 02/27/23 20:00 02/27/23 21:05 02/27/23 21:15 Temperature Temperature Source Pulse Rate Pulse Rate [Apical] 94 H 92 H 90 Pulse Rate from SpO2 Sensor Respiratory Rate 18 16 16 Respiratory Effort / Characteristics Non-Labored Respiratory Depth Blood Pressure Blood Pressure [Left Arm] 121/69 92/66 L 93/70 L Blood Pressure Mean Blood Pressure Mean [Left Arm] 86 74 77 Blood Pressure Position Pulse Oximetry 97 94 92 Oxygen Delivery Method Room Air Room Air Room Air Oxygen Flow Rate Sepsis Recent Fever Within 48 Hours Sepsis New/Unexplained Change in Mental Status Sepsis Action Taken by Nursing Oxygen Flow Rate - Titration Pulse Oximetry Post Tiitration 02/27/23 21:30 02/27/23 22:19 02/27/23 23:00 Temperature Temperature Source Pulse Rate 83 Pulse Rate [Apical] 88 88 Pulse Rate from SpO2 Sensor 83 Respiratory Rate 16 16 Respiratory Effort / Characteristics Non-Labored Respiratory Depth Blood Pressure Blood Pressure [Left Arm] 101/61 102/69 Blood Pressure Mean Blood Pressure Mean [Left Arm] 74 80 Blood Pressure Position Pulse Oximetry 90 91 89 L Oxygen Delivery Method Room Air Room Air Oxygen Flow Rate Sepsis Recent Fever Within 48 Hours Sepsis New/Unexplained Change in Mental Status Sepsis Action Taken by Nursing Oxygen Flow Rate - Titration Pulse Oximetry Post Tiitration 02/27/23 23:02 02/27/23 23:15 02/27/23 23:07 Temperature Temperature Source Pulse Rate 84 85 Pulse Rate [Apical] Pulse Rate from SpO2 Sensor 84 86 Respiratory Rate 15 20 Respiratory Effort / Characteristics Respiratory Depth Blood Pressure 89/57 L 82/54 L Blood Pressure [Left Arm] 82/50 L Blood Pressure Mean 67 63 Blood Pressure Mean [Left Arm] 60 Blood Pressure Position Pulse Oximetry 92 98 Oxygen Delivery Method Nasal Cannula Oxygen Flow Rate 2 Sepsis Recent Fever Within 48 Hours Sepsis New/Unexplained Change in Mental Status Sepsis Action Taken by Nursing Oxygen Flow Rate - Titration Pulse Oximetry Post Tiitration 02/27/23 23:10 02/27/23 23:15 02/27/23 23:20 Temperature Temperature Source Pulse Rate 85 85 86 Pulse Rate [Apical] Pulse Rate from SpO2 Sensor 85 85 86 Respiratory Rate 15 15 16 Respiratory Effort / Characteristics Respiratory Depth Blood Pressure 84/59 L 77/50 L Blood Pressure [Left Arm] Blood Pressure Mean 67 59 Blood Pressure Mean [Left Arm] Blood Pressure Position Pulse Oximetry 96 97 96 Oxygen Delivery Method Oxygen Flow Rate Sepsis Recent Fever Within 48 Hours Sepsis New/Unexplained Change in Mental Status Sepsis Action Taken by Nursing Oxygen Flow Rate - Titration Pulse Oximetry Post Tiitration 02/27/23 23:25 02/27/23 23:25 02/27/23 23:32 Temperature Temperature Source Pulse Rate 86 Pulse Rate [Apical] Pulse Rate from SpO2 Sensor 86 Respiratory Rate 16 Respiratory Effort / Characteristics Respiratory Depth Blood Pressure 73/39 L 84/47 L Blood Pressure [Left Arm] Blood Pressure Mean 50 59 Blood Pressure Mean [Left Arm] Blood Pressure Position Pulse Oximetry 96 88 L Oxygen Delivery Method Room Air Nasal Cannula Oxygen Flow Rate 0 Sepsis Recent Fever Within 48 Hours Sepsis New/Unexplained Change in Mental Status Sepsis Action Taken by Nursing Oxygen Flow Rate - Titration 2 Pulse Oximetry Post Tiitration 97 02/27/23 23:30 02/27/23 23:35 02/27/23 23:40 Temperature Temperature Source Pulse Rate 84 84 85 Pulse Rate [Apical] Pulse Rate from SpO2 Sensor 85 84 85 Respiratory Rate 16 15 15 Respiratory Effort / Characteristics Respiratory Depth Blood Pressure 81/53 L 81/54 L 99/69 L Blood Pressure [Left Arm] Blood Pressure Mean 62 63 79 Blood Pressure Mean [Left Arm] Blood Pressure Position Pulse Oximetry 97 99 98 Oxygen Delivery Method Oxygen Flow Rate Sepsis Recent Fever Within 48 Hours Sepsis New/Unexplained Change in Mental Status Sepsis Action Taken by Nursing Oxygen Flow Rate - Titration Pulse Oximetry Post Tiitration 02/27/23 23:45 02/27/23 23:50 02/27/23 23:51 Temperature Temperature Source Pulse Rate 87 88 88 Pulse Rate [Apical] Pulse Rate from SpO2 Sensor 87 88 Respiratory Rate 22 24 Respiratory Effort / Characteristics Respiratory Depth Blood Pressure 120/55 L 90/73 L Blood Pressure [Left Arm] Blood Pressure Mean 76 78 Blood Pressure Mean [Left Arm] Blood Pressure Position Pulse Oximetry 99 97 Oxygen Delivery Method Oxygen Flow Rate Sepsis Recent Fever Within 48 Hours Sepsis New/Unexplained Change in Mental Status Sepsis Action Taken by Nursing Oxygen Flow Rate - Titration Pulse Oximetry Post Tiitration Laboratory Data 02/27/23 19:55 02/27/23 19:55 Lab Results 02/27/23 02/27/23 02/27/23 Range/Units 19:55 19:55 19:55 WBC 16.82 H (4.8-10.8) K/ul RBC 4.31 (4.20-5.40) M/uL Hgb 12.3 (12.0-16.0) g/dl POC Hgb (12.0-16.0) g/dl Hct 40.5 (37.0-47.0) % POC Hct (37-47) % MCV 94.0 (80.0-100.0) fL MCH 28.5 (25.0-34.0) pg MCHC 30.4 L (32.0-36.0) g/dL RDW Std Deviation 60.2 H (36.4-46.3) fL RDW Coeff of Sumaya 17.2 H (11.5-14.5) % Plt Count 344 (130-400) K/uL MPV 9.8 (9.4-12.4) fL Immature Gran % (Auto) 0.6 % Neut % (Auto) 97.7 % Lymph % (Auto) 0.7 % Garrard % (Auto) 0.7 % Eos % (Auto) 0.2 % Baso % (Auto) 0.1 % Neut # (Auto) 16.44 H (1.40-6.50) K/uL Lymph # (Auto) 0.11 L (1.2-3.4) K/uL Garrard # (Auto) 0.12 (0.11-0.59) K/uL Eos # (Auto) 0.03 (0-0.50) K/uL Baso # (Auto) 0.02 (0-0.2) K/uL Immature Gran # (Auto) 0.10 (0.01-0.20) K/uL Toxic Vacuolation 1+ Polychromasia 1+ POC Sodium (135-144) mmol/L Sodium 138 (136-145) mmol/L POC Potassium (3.3-5.0) mmol/L Potassium 4.1 (3.5-5.1) mmol/L POC Chloride (101-112) mmol/L Chloride 102 (98-107) mmol/L Carbon Dioxide 24 (21-32) mmol/L POC Total CO2 (24-31) mmol/L Anion Gap 12 H (3-11) POC Anion Gap (16-25) mmol/L POC BUN (7-18) mg/dl BUN 28 H (6-23) mg/dl Creatinine 1.45 H (0.6-1.2) mg/dl POC Creatinine (0.6-1.3) mg/dl Est Cr Clr Drug Dosing 39.6 ml/min Est GFR ( Amer) 42.8 ml/min Est GFR (Non-Af Amer) 36.9 ml/min BUN/Creatinine Ratio 19.3 (10-20) Glucose 136 H (70-99(Fasting)) mg/dl POC Glucose (other) (70-99) mg/dl Lactate (0.4-2.0) mmol/L Calcium 9.2 (8.6-10.3) mg/dl POC Ioniz Calcium Mor (1.12-1.32) mmol/l Magnesium (1.7-2.4) mg/dl Total Bilirubin 0.3 (0.2-1.0) mg/dl AST 24 (13-39) U/L ALT 22 (7-52) U/L Alkaline Phosphatase 59 (34-104) U/L Troponin I High Sens 14.6 H (0-14) pg/ml B-Natriuretic Peptide 147 H (0-100) pg/ml Total Protein 6.9 (6.0-8.3) gm/dl Albumin 4.0 (3.4-5.0) gm/dl Globulin 2.9 (2.5-4.0) gm/dl Albumin/Globulin Ratio 1.4 (0.9-2) Lipase 260 H (11-82) U/L Procalcitonin (0-0.5) ng/ml Urine Color Urine Appearance (Clear) Urine pH (4.5-7.5) Ur Specific Eleva (1.000-1.030) Urine Protein (Negative) Urine Glucose (UA) (Negative) Urine Ketones (Negative) Urine Blood (Negative) Urine Nitrite (Negative) Urine Bilirubin (Negative) Urine Urobilinogen (Negative) Ur Leukocyte Esterase (Negative) Urine WBC (Auto) (0-5) /hpf Urine RBC (Auto) (0-4) /hpf U Hyaline Cast (Auto) (0-5) /lpf U Epithel Cells (Auto) (0-5) /lpf Urine Bacteria (Auto) (Negative) SARS-CoV-2, RNA, NAAT (NEGATIVE) 02/27/23 02/27/23 02/27/23 Range/Units 21:43 21:43 21:43 WBC (4.8-10.8) K/ul RBC (4.20-5.40) M/uL Hgb (12.0-16.0) g/dl POC Hgb (12.0-16.0) g/dl Hct (37.0-47.0) % POC Hct (37-47) % MCV (80.0-100.0) fL MCH (25.0-34.0) pg MCHC (32.0-36.0) g/dL RDW Std Deviation (36.4-46.3) fL RDW Coeff of Sumaya (11.5-14.5) % Plt Count (130-400) K/uL MPV (9.4-12.4) fL Immature Gran % (Auto) % Neut % (Auto) % Lymph % (Auto) % Garrard % (Auto) % Eos % (Auto) % Baso % (Auto) % Neut # (Auto) (1.40-6.50) K/uL Lymph # (Auto) (1.2-3.4) K/uL Garrard # (Auto) (0.11-0.59) K/uL Eos # (Auto) (0-0.50) K/uL Baso # (Auto) (0-0.2) K/uL Immature Gran # (Auto) (0.01-0.20) K/uL Toxic Vacuolation Polychromasia POC Sodium (135-144) mmol/L Sodium (136-145) mmol/L POC Potassium (3.3-5.0) mmol/L Potassium (3.5-5.1) mmol/L POC Chloride (101-112) mmol/L Chloride (98-107) mmol/L Carbon Dioxide (21-32) mmol/L POC Total CO2 (24-31) mmol/L Anion Gap (3-11) POC Anion Gap (16-25) mmol/L POC BUN (7-18) mg/dl BUN (6-23) mg/dl Creatinine (0.6-1.2) mg/dl POC Creatinine (0.6-1.3) mg/dl Est Cr Clr Drug Dosing ml/min Est GFR ( Amer) ml/min Est GFR (Non-Af Amer) ml/min BUN/Creatinine Ratio (10-20) Glucose (70-99(Fasting)) mg/dl POC Glucose (other) (70-99) mg/dl Lactate 3.3 H* (0.4-2.0) mmol/L Calcium (8.6-10.3) mg/dl POC Ioniz Calcium Mor (1.12-1.32) mmol/l Magnesium 1.6 L (1.7-2.4) mg/dl Total Bilirubin (0.2-1.0) mg/dl AST (13-39) U/L ALT (7-52) U/L Alkaline Phosphatase (34-104) U/L Troponin I High Sens (0-14) pg/ml B-Natriuretic Peptide (0-100) pg/ml Total Protein (6.0-8.3) gm/dl Albumin (3.4-5.0) gm/dl Globulin (2.5-4.0) gm/dl Albumin/Globulin Ratio (0.9-2) Lipase (11-82) U/L Procalcitonin 12.88 H (0-0.5) ng/ml Urine Color Urine Appearance (Clear) Urine pH (4.5-7.5) Ur Specific Eleva (1.000-1.030) Urine Protein (Negative) Urine Glucose (UA) (Negative) Urine Ketones (Negative) Urine Blood (Negative) Urine Nitrite (Negative) Urine Bilirubin (Negative) Urine Urobilinogen (Negative) Ur Leukocyte Esterase (Negative) Urine WBC (Auto) (0-5) /hpf Urine RBC (Auto) (0-4) /hpf U Hyaline Cast (Auto) (0-5) /lpf U Epithel Cells (Auto) (0-5) /lpf Urine Bacteria (Auto) (Negative) SARS-CoV-2, RNA, NAAT (NEGATIVE) 02/27/23 02/27/23 02/27/23 Range/Units 22:26 22:37 23:44 WBC (4.8-10.8) K/ul RBC (4.20-5.40) M/uL Hgb (12.0-16.0) g/dl POC Hgb 13.9 (12.0-16.0) g/dl Hct (37.0-47.0) % POC Hct 41 (37-47) % MCV (80.0-100.0) fL MCH (25.0-34.0) pg MCHC (32.0-36.0) g/dL RDW Std Deviation (36.4-46.3) fL RDW Coeff of Sumaya (11.5-14.5) % Plt Count (130-400) K/uL MPV (9.4-12.4) fL Immature Gran % (Auto) % Neut % (Auto) % Lymph % (Auto) % Garrard % (Auto) % Eos % (Auto) % Baso % (Auto) % Neut # (Auto) (1.40-6.50) K/uL Lymph # (Auto) (1.2-3.4) K/uL Garrard # (Auto) (0.11-0.59) K/uL Eos # (Auto) (0-0.50) K/uL Baso # (Auto) (0-0.2) K/uL Immature Gran # (Auto) (0.01-0.20) K/uL Toxic Vacuolation Polychromasia POC Sodium 145 H (135-144) mmol/L Sodium (136-145) mmol/L POC Potassium 3.0 L (3.3-5.0) mmol/L Potassium (3.5-5.1) mmol/L POC Chloride 108 (101-112) mmol/L Chloride (98-107) mmol/L Carbon Dioxide (21-32) mmol/L POC Total CO2 24 (24-31) mmol/L Anion Gap (3-11) POC Anion Gap 18.0 (16-25) mmol/L POC BUN 20 H (7-18) mg/dl BUN (6-23) mg/dl Creatinine (0.6-1.2) mg/dl POC Creatinine 0.6 (0.6-1.3) mg/dl Est Cr Clr Drug Dosing ml/min Est GFR ( Amer) ml/min Est GFR (Non-Af Amer) ml/min BUN/Creatinine Ratio (10-20) Glucose (70-99(Fasting)) mg/dl POC Glucose (other) 77 (70-99) mg/dl Lactate (0.4-2.0) mmol/L Calcium (8.6-10.3) mg/dl POC Ioniz Calcium Mor 0.82 L (1.12-1.32) mmol/l Magnesium (1.7-2.4) mg/dl Total Bilirubin (0.2-1.0) mg/dl AST (13-39) U/L ALT (7-52) U/L Alkaline Phosphatase (34-104) U/L Troponin I High Sens (0-14) pg/ml B-Natriuretic Peptide (0-100) pg/ml Total Protein (6.0-8.3) gm/dl Albumin (3.4-5.0) gm/dl Globulin (2.5-4.0) gm/dl Albumin/Globulin Ratio (0.9-2) Lipase (11-82) U/L Procalcitonin (0-0.5) ng/ml Urine Color Dark Yellow Urine Appearance Turbid A (Clear) Urine pH 5.5 (4.5-7.5) Ur Specific Eleva 1.021 (1.000-1.030) Urine Protein 2+ H (Negative) Urine Glucose (UA) Negative (Negative) Urine Ketones Trace H (Negative) Urine Blood 1+ H (Negative) Urine Nitrite Positive A (Negative) Urine Bilirubin 1+ H (Negative) Urine Urobilinogen Negative (Negative) Ur Leukocyte Esterase 3+ H (Negative) Urine WBC (Auto) >30 H (0-5) /hpf Urine RBC (Auto) 0-4 (0-4) /hpf U Hyaline Cast (Auto) 1-5 (0-5) /lpf U Epithel Cells (Auto) >30 H (0-5) /lpf Urine Bacteria (Auto) Negative (Negative) SARS-CoV-2, RNA, NAAT NEGATIVE (NEGATIVE) Administered Medications Norepinephrine Bitartrate (Levophed/D5w) 4 mg in 250 mls @ 15 mls/hr IV .[id number] NASRA; Protocol Stop: 03/29/23 23:29 Last Titration: 02/27/23 23:48 Dose: 0.05 mcg/kg/min, 15 mls/hr Documented By: Titration: 02/27/23 23:37 Dose: 0.07 mcg/kg/min, 21 mls/hr Documented By: Admin: 02/27/23 23:24 Dose: 0.05 mcg/kg/min, 15 mls/hr Documented By: DUSTY Co-signed By: CC Discontinued Medications Sodium Chloride (Nss 1000ml) 1,000 mls @ 999 mls/hr IV .Q1H1M ONE Stop: 02/27/23 20:55 Last Infusion: 02/27/23 21:56 Dose: 0 mls/hr Documented By: Admin: 02/27/23 20:45 Dose: 999 mls/hr Documented By: ML Acetaminophen (Ofirmev) 1,000 mg in 100 mls @ 400 mls/hr IV NOW STA Stop: 02/27/23 20:09 Last Infusion: 02/27/23 21:00 Dose: 0 mls/hr Documented By: Admin: 02/27/23 20:45 Dose: 400 mls/hr Documented By: ML Sodium Chloride (Nss 1000ml) 1,000 mls @ 999 mls/hr IV .Q1H1M ONE Stop: 02/27/23 22:12 Last Admin: 02/27/23 21:58 Dose: Not Given Documented By: ML Cefepime HCl (Maxipime) 2,000 mg in 20 mls @ 5 mls/min IV NOW STA; Protocol Stop: 02/27/23 23:21 Last Admin: 02/28/23 00:40 Dose: 5 mls/min Documented By: NRB Ondansetron HCl (Ondansetron Inj 2 Mg/Ml 2 Ml Vial) 4 mg IV NOW STA Stop: 02/27/23 20:50 Last Admin: 02/27/23 21:10 Dose: 4 mg Documented By: ML Imaging Data Radiologist's Impression: Abdomen/Pelvis CT 02/27/23 19:55 Exam(s): CT ABDOMEN + PELVIS Without Contrast EXAM: CT Abdomen and Pelvis Without Intravenous Contrast CLINICAL HISTORY: Reason for exam: lower abdominal pain; nausea; hypotension. TECHNIQUE: Axial computed tomography images of the abdomen and pelvis without intravenous contrast. Automated exposure control was utilized for the study. A dose lowering technique was utilized adhering to the principles of ALARA. COMPARISON: No relevant prior studies available. FINDINGS: Lung bases: Unremarkable. No mass. No consolidation. ABDOMEN: Liver: Unremarkable. Gallbladder and bile ducts: Common bile duct stent. Pneumobilia. No calcified stones. Pancreas: Unremarkable. No ductal dilation. Spleen: Unremarkable. No splenomegaly. Adrenals: Unremarkable. No mass. Kidneys and ureters: Unremarkable. No obstructing stones. No hydronephrosis. Stomach and bowel: Diverticulosis, without acute diverticulitis. No small bowel obstruction. No free intraperitoneal air. PELVIS: Appendix: Normal appendix. Bladder: Unremarkable. No stones. Reproductive: Nonobstructing 6 mm RIGHT lower pole renal calculus. Hysterectomy. ABDOMEN and PELVIS: Intraperitoneal space: Unremarkable. No free air. No significant fluid collection. Bones/joints: Posterior lumbar fusion L3-L5. Grade 1 anterolisthesis of L5 on S1 measures 8 mm. Degenerative changes of the spine. No acute fracture. No dislocation. Soft tissues: Unremarkable. Vasculature: Atherosclerotic changes of the aorta. No abdominal aortic aneurysm. Lymph nodes: Unremarkable. No enlarged lymph nodes. IMPRESSION: 1. Normal appendix. 2. Nonobstructing 6 mm RIGHT lower pole renal calculus. Hysterectomy. 3. Common bile duct stent. Pneumobilia. 4. Diverticulosis, without acute diverticulitis. No small bowel obstruction. No free intraperitoneal air. Electronically signed by: Jed Lagunas MD 02/27/23 22:59 PM Discharge Plan Visit Data Chief Complaint: Hypotension Stated Complaint: BLOOD PRESSURE BOTTOMED OUT, NAUSEA ED Provider: Rosetta Vergara Discharge Problem: Septic shock, Acute UTI (urinary tract infection), Leukocytosis, Elevated procalcitonin, Elevated lipase Forms Stand Alone Forms: My [facility] Prescriptions Prescriptions: No Action levothyroxine 100 mcg tablet 100 mcg PO QAM Qty: 90 3RF Eliquis 5 mg tablet 5 mg PO BID Qty: 180 3RF metoprolol succinate 100 mg tablet extended release 24 hr 100 mg PO BID Qty: 180 3RF amoxicillin-pot clavulanate 500-125 mg tablet 1 tab PO Q12H 7 Days Qty: 14 0RF Rx Instructions: ORDERED 02/27/23 FOR POSSIBLE UTI, WAITING TO HEAR FROM DOCTOR OFFICE IF NEEDS TO START MED. (DME) pen needle, diabetic 31 gauge x 1/4" needle See Rx Instructions .Route Qty: 100 10RF Rx Instructions: As directed Praluent Pen 75 mg/mL pen injector 75 mg subcut Q14D Qty: 2 2RF Rx Instructions: MONDAYS. Inject 75 mg into the abdomen once every 2 weeks. magnesium 250 mg Tablet 250 mg PO HS cholecalciferol (vitamin D3) [Vitamin D3] 1,000 unit Capsule 1,000 unit PO QAM acetaminophen [Tylenol Extra Strength] 500 mg Tablet 1,000 mg PO Q6H PRN (Reason: Pain) amiodarone 200 mg tablet 200 mg PO HS cyclobenzaprine 10 mg tablet 10 mg PO HS omeprazole 40 mg capsule,delayed release(DR/EC) 40 mg PO QAM gabapentin 100 mg capsule 100 - 300 mg PO HS Rx Instructions: TAKE ONE TO THREE CAPSULES BY MOUTH DAILY Advanced Probiotic 625 mg (10 billion cell) capsule 1 cap PO HS furosemide [Lasix] 20 mg tablet 20 mg PO DAILY PRN (Reason: edema of legs) Qty: 30 5RF amlodipine 5 mg tablet 5 mg PO QAM insulin glargine [Lantus Solostar U-100 Insulin] 100 unit/mL (3 mL) insulin pen 5 unit subcut HS Rx Instructions: Inject 5 units into the abdomen once daily. Ozempic 0.25 mg or 0.5 mg(2 mg/1.5 mL) pen injector 0.5 mg subcut Q7D Rx Instructions: MONDAYS Referrals Referrals: Corby Arzola MD [Primary Care Provider] -
[2023-02-27] MEDS ORDERED: ONDANSETRON INJ 2 MG/ML 2 ML VIAL IV STA (20:49)
[2023-02-27 21:17] LABS: Hematocrit (blood only) 40.5 % (37.0-47.0); Hemoglobin 12.3 g/dl (12.0-16.0); Mean Corpuscular Hemoglobin 28.5 pg (25.0-34.0); Mean Corpuscular Hgb Conc 30.4 g/dL (32.0-36.0); Mean Platelet Volume 9.8 fL (9.4-12.4); Platelet Count 344 K/uL (130-400); RDW Coefficient of Variation 17.2 % (11.5-14.5); RDW Standard Deviation 60.2 fL (36.4-46.3); Red Blood Count 4.31 M/uL (4.20-5.40); White Blood Count 16.82 K/ul (4.8-10.8)
[2023-02-27 21:19] LABS: Albumin Globulin Ratio 1.4 (0.9-2); BUN Creatinine Ratio 19.3 (10-20); Bilirubin,Total 0.3 mg/dl (0.2-1.0); Calcium 9.2 mg/dl (8.6-10.3); Creatinine Clr Calc Pharmacy 39.6 ml/min; Est GFR (African American) 42.8 ml/min; Est GFR (Non-African American) 36.9 ml/min; Globulin 2.9 gm/dl (2.5-4.0); Potassium 4.1 mmol/L (3.5-5.1); Total Protein 6.9 gm/dl (6.0-8.3)
[2023-02-27 21:26] LABS: Troponin I High Sensitivity 14.6 pg/ml (0-14)
[2023-02-27 21:44] LABS: Basophils # (auto) 0.02 K/uL (0-0.2); Basophils % (auto) 0.1 %; Eosinophils # (auto) 0.03 K/uL (0-0.50); Eosinophils % (auto) 0.2 %; Immature Granulocytes % (auto) 0.6 %; Lymphocytes # (auto) 0.11 K/uL (1.2-3.4); Lymphocytes % (auto) 0.7 %; Monocytes # (auto) 0.12 K/uL (0.11-0.59); Monocytes % (auto) 0.7 %; Neutrophils # (auto) 16.44 K/uL (1.40-6.50); Neutrophils % (auto) 97.7 %; Polychromasia 1+; Toxic Vacuolation 1+
[2023-02-27 22:49] LABS: Appearance Urine Turbid (Clear); Bacteria Urine Automated Negative (Negative); Blood Urine 1+ (Negative); Color Urine Dark Yellow; Epithelial Cell Urine Auto >30 /lpf (0-5); Glucose Urine UA Negative (Negative); Ketones Urine Trace (Negative); Leukocyte Esterase Urine 3+ (Negative); Nitrite Urine Positive (Negative); Protein Urine 2+ (Negative); RBC Urine Automated 0-4 /hpf (0-4); Specific Gravity Urine 1.021 (1.000-1.030); Urobilinogen Urine Negative (Negative); WBC Urine Automated >30 /hpf (0-5); pH Urine 5.5 (4.5-7.5)
[2023-02-27 22:51] LABS: Bilirubin Urine 1+ (Negative)
--- NOTE | 2023-02-27 23:00 | CT Scan Report ---
Exam(s): CT ABDOMEN + PELVIS Without Contrast EXAM: CT Abdomen and Pelvis Without Intravenous Contrast CLINICAL HISTORY: Reason for exam: lower abdominal pain; nausea; hypotension. TECHNIQUE: Axial computed tomography images of the abdomen and pelvis without intravenous contrast. Automated exposure control was utilized for the study. A dose lowering technique was utilized adhering to the principles of ALARA. COMPARISON: No relevant prior studies available. FINDINGS: Lung bases: Unremarkable. No mass. No consolidation. ABDOMEN: Liver: Unremarkable. Gallbladder and bile ducts: Common bile duct stent. Pneumobilia. No calcified stones. Pancreas: Unremarkable. No ductal dilation. Spleen: Unremarkable. No splenomegaly. Adrenals: Unremarkable. No mass. Kidneys and ureters: Unremarkable. No obstructing stones. No hydronephrosis. Stomach and bowel: Diverticulosis, without acute diverticulitis. No small bowel obstruction. No free intraperitoneal air. PELVIS: Appendix: Normal appendix. Bladder: Unremarkable. No stones. Reproductive: Nonobstructing 6 mm RIGHT lower pole renal calculus. Hysterectomy. ABDOMEN and PELVIS: Intraperitoneal space: Unremarkable. No free air. No significant fluid collection. Bones/joints: Posterior lumbar fusion L3-L5. Grade 1 anterolisthesis of L5 on S1 measures 8 mm. Degenerative changes of the spine. No acute fracture. No dislocation. Soft tissues: Unremarkable. Vasculature: Atherosclerotic changes of the aorta. No abdominal aortic aneurysm. Lymph nodes: Unremarkable. No enlarged lymph nodes. IMPRESSION: 1. Normal appendix. 2. Nonobstructing 6 mm RIGHT lower pole renal calculus. Hysterectomy. 3. Common bile duct stent. Pneumobilia. 4. Diverticulosis, without acute diverticulitis. No small bowel obstruction. No free intraperitoneal air. Electronically signed by: Jed Lagunas MD 02/27/23 22:59 PM
[2023-02-27] MEDS ORDERED: CEFEPIME 2,000 MG/20 ML VIAL IV STA (23:18)
[2023-02-27] MEDS ORDERED: STAT IV Infusion **Titration per Protocol STA (23:20)
[2023-02-27] MEDS ORDERED: VANCOMYCIN CONSULT ACTIVE PRN (23:21)
[2023-02-27] MEDS ORDERED: VANCOMYCIN HCL 1,500 MG in SODIUM CHLORIDE 0.9% 500 ML IV ONE (23:21)
[2023-02-27] MEDS ORDERED: NOREPINEPHRINE/D5W 4 MG/250 ML PLCT IV SCH (23:30)
[2023-02-28] MEDS ORDERED: MoRPHine SULFATE 2 MG/ML CARP IV STA (00:53)
[2023-02-28] MEDS: MAGNESIUM SULFATE / D5W 1 GM/100 ML BAG IV SCH ×3 (01:10→05:11)
[2023-02-28 01:43] LABS: Troponin I High Sensitivity 30.3 pg/ml (0-14)
[2023-02-28] MEDS ORDERED: ACETAMINOPHEN 500 MG TAB PO PRN (02:23)
[2023-02-28] MEDS ORDERED: FUROSEMIDE 20 MG TAB PO PRN (02:23)
[2023-02-28] MEDS ORDERED: ALUMINUM/MAGNESIUM SUSP 30 ML UDC PO PRN (02:23)
[2023-02-28 02:26] LABS: Albumin Level 3.3 gm/dl (3.4-5.0); BUN Creatinine Ratio 17.1 (10-20); Bilirubin,Total 0.3 mg/dl (0.2-1.0); Calcium 8.3 mg/dl (8.6-10.3); Creatinine Clr Calc Pharmacy 32.8 ml/min; Est GFR (African American) 34.1 ml/min; Est GFR (Non-African American) 29.4 ml/min; Magnesium 1.7 mg/dl (1.7-2.4); Potassium 4.2 mmol/L (3.5-5.1); Total Protein 5.5 gm/dl (6.0-8.3)
[2023-02-28] MEDS ORDERED: ONDANSETRON INJ 2 MG/ML 2 ML VIAL ONE (02:55)
[2023-02-28 03:09] LABS: Hematocrit (blood only) 32.2 % (37.0-47.0); Hemoglobin 9.8 g/dl (12.0-16.0); Mean Corpuscular Hemoglobin 29.3 pg (25.0-34.0); Mean Corpuscular Hgb Conc 30.4 g/dL (32.0-36.0); Mean Corpuscular Volume 96.1 fL (80.0-100.0); Mean Platelet Volume 9.4 fL (9.4-12.4); Platelet Count 317 K/uL (130-400); RDW Coefficient of Variation 17.6 % (11.5-14.5); RDW Standard Deviation 62.4 fL (36.4-46.3); Red Blood Count 3.35 M/uL (4.20-5.40)
[2023-02-28] MEDS ORDERED: SODIUM CHLORIDE 0.9% 1000ML 1,000 ML IV ONE (03:16)
[2023-02-28] MEDS ORDERED: GLUCOSE 40% GEL 15 GM TUBE PO PRN (03:19)
[2023-02-28] MEDS ORDERED: GLUCOSE 10 TAB/TUBE PO PRN (03:19)
[2023-02-28] MEDS ORDERED: PHARMACY GLYCEMIC MGMT CONSULT PRN (03:19)
[2023-02-28] MEDS ORDERED: CARBOHYDRATES FOR HYPOGLYCEMIA PO PRN (03:19)
[2023-02-28] MEDS ORDERED: DEXTROSE 50% 50 ML SYRINGE IV PRN (03:19)
[2023-02-28] MEDS ORDERED: GLUCAGON FOR INJ 1 MG VIAL SQ PRN (03:19)
[2023-02-28 03:22] LABS: Basophils # (auto) 0.11 K/uL (0-0.2); Basophils % (auto) 0.4 %; Eosinophils # (auto) 0.11 K/uL (0-0.50); Eosinophils % (auto) 0.4 %; Immature Granulocytes # (auto) 0.27 K/uL (0.01-0.20); Lymphocytes # (auto) 0.14 K/uL (1.2-3.4); Lymphocytes % (auto) 0.5 %; Monocytes # (auto) 0.41 K/uL (0.11-0.59); Monocytes % (auto) 1.5 %; Neutrophils # (auto) 26.86 K/uL (1.40-6.50); Neutrophils % (auto) 96.2 %
[2023-02-28] MEDS: HYDROCORTISONE SOD 50 MG in SYRINGE 0 ML IV SCH ×3 (03:33→20:38)
--- NOTE | 2023-02-28 03:33 | Critical Care Consultation ---
Date of Consultation February 28, 2023 Assessment & Plan (1) Septic shock: Reason Critically Ill: 68-year-old female presents to the ICU with hypotension secondary to septic shock, likely from urinary source. Patient now requiring vasopressor support and central line inserted in the ED. Neuro - [facility] ICU: Negative Neuropathycontinue gabapentin Cardiac - Shock Suspect this is most likely septic however cannot rule Out possible adrenal insufficiency as patient is on chronic prednisone. Started on hydrocor tisone IV 50 mg every 8 hours for stress dose. She is currently requiring Levophed to maintain maps greater than 65 and weaning as tolerated. EKG in sinus rhythm without ST elevation, mild elevated troponin we will trend for now but suspect this is demand ischemia. Last TTE in December with normal EF 60 to 65%. See ID for management of sepsis below. HTNhold antihypertensives Diastolic heart failure Last TTE from 12/26/2022 with EF 60 to 65%, mild left atrial dilation, type II diastolic dysfunction. Moderate concentric left ventricular hypertrophy. We will hold Lasix for the time being as she is currently hypotensive. Monitor Paroxysmal A-fib Patient underwent cardioversion x2. She continues to have episodes of atrial fibrillation and is currently controlled with amiodarone , MTP and anticoagulated on apixaban. Now sinus rhythm on monitor. Hold MTP for now as patient is hypotensive. Continuous monitoring on telemetry Respiratory - Hypoxia Suspect this is likely related to underlying heart failure as patient was receiving IV fluid bolus when she became hypoxic and required supplemental oxygen. We will hold Lasix as patient is currently hypotensive. May consider BiPAP if hypoxia worsens however she appears comfortable for the time being on nasal cannula. Chest x-ray without evidence of pneumonia and appears to be more in line with cardiopulmonary congestion. PE unlikely as she is currently anticoagulated on apixaban. We will continue monitoring on pulse ox and wean oxygen as tolerated. GI - Diabetic diet GERDPPI Recent laparoscopic cholecystectomy on 02/12. No issues or complications related to surgery. RENAL/LYTES - AISHWARYA Suspect this is likely ATN in the setting of hypotension. Continue to monitor BMPs and electrolytes routinely. Continue with Gentle fluid resuscitation and maintain maps greater than 65. Avoid nephrotoxins and renally adjust medications. Monitor - Recurrent UTI Patient with history of recurrent complicated UTIs. Urinalysis suspicious for UTI and urine culture pending. See ID treatment below ENDO - DM type II Uncontrolled, last hemoglobin A1c 7.6. Currently euglycemic. Started on sliding scale, ICU hyperglycemic protocol. HypothyroidismContinue Synthroid Rheumatoid arthritis Holding prednisone as patient is currently stress test with hydrocortisone HEME - H&H stable, monitor routine CBC ID - Sepsis Most likely urinary source as the patient does have recurrent UTIs and urinalysis suspicious for acute UTI. Urine culture and blood cultures are pending. She did have a significantly elevated procalcitonin of 12, leukocytosis, and elevated lactate. Continue with cefepime and vancomycin for now. LINES/IV ACCESS - Right IJ CVL DVT PROPHYLAXIS - SCDs, anticoagulated on apixaban I have personally spent 65 minutes of critical care time in the direct management of this patient. This is a life/limb threatening event. This includes time spent evaluating patient, direct bedside care, chart review, placing orders, interpretation of diagnostic studies, discussion with consultants, patient, and family members, as well as other required patient management activities. This time is exclusive of all separately billable procedures, and teaching time and separate from and in addition to any other critical care service time. Thank you for allowing us to participate in the care of this patient. Please refer to my attending physician's documentation for any further recommendations. (2) Acute UTI (urinary tract infection): (3) Persistent atrial fibrillation: (4) Diabetes mellitus with nephropathy: (5) Rheumatoid arthritis: (6) Hypertension: (7) Hyperlipidemia: (8) Immunosuppression due to drug therapy: (9) (HFpEF) heart failure with preserved ejection fraction: (10) Chronic kidney disease, stage 3b: (11) Hypothyroidism: History of Present Illness Attending Physician: Corby Cesar MD History of Present Illness Patient is a 68-year-old female with past medical history of recurrent UTIs, sepsis, diastolic heart failure, rheumatoid arthritis (on prednisone), CKD, paroxysmal A-fib (anticoagulated on apixaban), hypothyroidism, neuropathy, who presented to the emergency department after feeling weak throughout the day and patient took her blood pressure at home and was found to be hypotensive with systolic in the 70s. Patient does report that she has had dark and foul- smelling urine since Friday. Patient had seen her primary care physician for urinary symptoms and urine culture was collected, and patient was supposed to start Augmentin today. In the emergency department she was given 2 L crystalloid bolus but became hypoxic and required nasal cannula for supplemental oxygen. She was found to have elevated lactate, Leukocytosis, and Pro-Sivakumar of 12. Blood cultures and urine cultures were collected and she was started on broad-spectrum antibiotics with vancomycin and cefepime. Patient remained hypotensive and was started on Levophed drip and a central line was placed in the ED. She is now being transferred to ICU for further management at this time. On arrival to the ICU the patient is alert and oriented without acute distress or pain. She reports an episode of abdominal cramping earlier today, and does confirm reports of foul-smelling urine. Patient states that she does not usually have burning with urination when she has UTIs, and she has had recurrent episodes of sepsis related to UTIs. CT abdomen and pelvis was unremarkable for acute intra-abdominal findings and only showed diverticulosis without diverticulitis. She denies headache, dizziness, recent fevers or congestion, cough, abdominal pain, chest pain or palpitations, shortness of breath. Patient does report some swelling in her feet which she states is chronic and she takes a diuretic. She does report 2 episodes of nausea with dry heaving since she r eceived morphine in the emergency department. Allergies Allergy/AdvReac Type Severity Reaction Status Date / Time tetracycline Allergy Severe Facial rash Verified 02/27/23 22:09 methenamine Allergy Intermediate Swelling Verified 02/27/23 22:09 of Lip/Tongue/Throat Zzmsbsv-WHQ-EsW Reductase AdvReac Intermediate LE edema Verified 02/27/23 22:09 Inhibitor [Wogvpvt-Fwm-Uot Reductase Inhibitor] morphine AdvReac Mild Nausea Verified 02/28/23 03:22 oxycodone AdvReac Mild Drowsy Verified 02/27/23 22:09 Home Medications Medication Instructions Recorded Confirmed Type cholecalciferol (vitamin D3) 25 1,000 unit PO QAM 10/26/18 02/27/23 History mcg (1,000 unit) capsule (Vitamin D3) magnesium 250 mg tablet 250 mg PO HS 10/26/18 02/27/23 History acetaminophen 500 mg tablet 1,000 mg PO Q6H PRN Pain 12/24/18 02/27/23 History (Tylenol Extra Strength) cyclobenzaprine 10 mg tablet 10 mg PO HS 04/21/21 02/27/23 History levothyroxine 100 mcg tablet 100 mcg PO QAM #90 tabs 09/16/22 02/27/23 Rx apixaban 5 mg tablet (Eliquis) 5 mg PO BID #180 tabs 12/02/22 02/27/23 Rx L.acidop,casei,lactis,rham-B.lact,reyes 1 cap PO HS 12/12/22 02/27/23 History 625 mg (10 billion cell) capsule (Advanced Probiotic) gabapentin 100 mg capsule 100 - 300 mg PO HS 12/12/22 02/27/23 History omeprazole 40 mg capsule,delayed 40 mg PO QAM 12/12/22 02/27/23 History release furosemide 20 mg tablet (Lasix) 20 mg PO DAILY PRN edema of legs 12/13/22 02/27/23 Rx #30 tabs alirocumab 75 mg/mL subcutaneous 75 mg subcut Q14D #2 mL 12/23/22 02/27/23 Rx pen injector (Praluent Pen) pen needle, diabetic 31 gauge x #100 ea 01/07/23 02/27/23 Rx 1/4" metoprolol succinate 100 mg 100 mg PO BID #180 tabs 01/13/23 02/27/23 Rx tablet,extended release 24 hr amiodarone 200 mg tablet 200 mg PO HS 01/19/23 02/27/23 History amlodipine 5 mg tablet 5 mg PO QAM 02/27/23 02/27/23 History amoxicillin 500 mg-potassium 1 tab PO Q12H 7 days #14 tabs 02/27/23 02/27/23 Rx clavulanate 125 mg tablet insulin glargine 100 unit/mL (3 5 unit subcut HS 02/27/23 02/27/23 History mL) subcutaneous pen (Lantus Solostar U-100 Insulin) semaglutide 0.25 mg or 0.5 mg (2 0.5 mg subcut Q7D 02/27/23 02/27/23 History mg/1.5 mL) subcutaneous pen injector (Ozempic) Patient History Medical History (HFpEF) heart failure with preserved ejection fraction Anemia of chronic disease Hx iron infusions (most recent 01/31/23, [facility]) Anxiety Chronic kidney disease, stage 3b Diabetes mellitus type II, controlled GERD (gastroesophageal reflux disease) History of COVID-19 2020- hospitalized at [facility] for 9 days, no issues now History of MRSA infection lumbar surgical incision s/p vanco/ceftriaxone/bactrim per 04/2019 [facility] discharge summary History of recent blood transfusion 09/18/22 @ [facility] History of stroke Vertebrobasilar artery brainstem stroke 2020, slight residual left sided weakness Given TPA on 04/21/2021 with resolution of symptoms Hyperlipidemia Hypertension Hypothyroidism Immunosuppression due to drug therapy *Prednisone daily* Lumbar radiculopathy Neuropathy Paroxysmal atrial fibrillation x2 ablations, 12/2022 Recurrent UTI Rheumatoid arthritis Sepsis UTI (09/2022) Spinal stenosis Stenosis of left internal carotid artery 50-69% stenosis of left ICA per 04/2021 neck CTA Stenosis of left vertebral artery Approximately 90% stenosis within V4 segment of left vertebral artery per 04/21/2021 neck CTA Surgical History History of x2 History of cardiac radiofrequency ablation 12/13/22 and 12/31/22 ([facility]) History of ERCP W/STENT PLACEMENT History of esophagogastroduodenoscopy (EGD) History of hysterectomy total History of lumbar surgery Lumbar Spine Wound Revision 2018 History of total left knee replacement Hx laparoscopic cholecystectomy (02/12/23) Robotic Assisted Laparoscopic Cholecystectomy (Not Applicable) - Otto Fish, DO Hx of colonoscopy Hx of tonsillectomy Status post laminectomy with spinal fusion L2-L5 laminectomy/fusion (12/24/18): Grade view 1, MAC#3, ETT 7.0 Family History Father Diabetes Lung cancer Cancer Hypertension Mother Malignant neoplasm of brain Diabetes Brain tumor Cancer Hypertension Aunt Breast cancer Sister Hypertension Other No family history of adverse response to anesthesia Denies family history of Ovarian cancer Prostate cancer Myocardial infarction Colorectal cancer Social History Smoking Status: Never smoker Second Hand Exposure: Yes (HX); Do You Dip or Chew Tobacco: No; Hx Alcohol Use: No Hx Substance Use: No Preferred Language: Iraqi Communication Ability: Effective Visual Impairment: No Limitations Hearing Ability: Normal Supervisor Tree Trimming Required: No Beliefs That Will Affect Care: None marital status: Current Living Situation: Spouse Current Living Situation Comment: 1 level home current occupational status: retired How many Children do You have: 2 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 Feels Safe at Home: Yes Childhood Exposure to Second-Hand Smoke: Yes Diet: gluten free caffeine: Yes Dental Care, Regularly: Yes Physical Activity Frequency: 5-6 Times per Week Physical Activity Frequency Comment: gym Seatbelt Use: always Sunscreen Use: Yes Do you think of yourself as: straight/heterosexual Assistive Devices: Glasses Review of Systems Review of Systems: All systems reviewed & are unremarkable except as noted in HPI & below Physical Exam Constitutional: cooperative and comfortable; no acute distress Eyes: PERRL, conjunctivae normal, anicteric sclerae ENMT: external ear and nose normal, oropharynx normal Neck: trachea midline, no thyromegaly Respiratory: normal respiratory effort, lungs clear to auscultation Cardiovascular: RRR, no murmur, no edema Heart Sounds: normal S1 and normal S2; no murmur Extremities: normal capillary refill; no edema Gastrointestinal (Abdomen): normal bowel sounds, soft, nontender, no hepatosplenomegaly Musculoskeletal: no cyanosis or clubbing, extremities motor strength 5/5 Skin: no rashes, warm and dry Neurologic: PERRL, EOMI, accommodation nl, no face palsy, no dysarthria Psychiatric: A+Ox3, euthymic affect Results & Data Results & Data Vital Signs (Past 12 Hours) Vital Signs Temp Pulse Pulse Resp BP BP Pulse Ox 02/28/23 03:06 02/28/23 02:10 86 13 93/65 L 98 02/28/23 02:05 85 15 80/56 L 98 02/28/23 02:00 86 14 87/59 L 97 02/28/23 01:55 86 13 101/73 97 02/28/23 01:50 85 14 91/58 L 97 02/28/23 01:45 85 13 97/61 L 97 02/28/23 01:40 85 14 86/63 L 97 02/28/23 01:35 86 15 86/61 L 96 02/28/23 01:30 86 16 96/60 L 97 02/28/23 01:25 85 15 87/58 L 96 02/28/23 01:20 85 15 89/54 L 96 02/28/23 01:15 86 14 98/57 L 97 02/28/23 01:10 86 16 97/60 L 97 02/28/23 01:05 87 15 94/55 L 97 02/28/23 01:00 88 16 96/61 L 97 02/28/23 00:55 88 16 99/59 L 97 02/28/23 00:50 89 16 110/61 97 02/28/23 00:45 87 19 107/57 L 98 02/28/23 00:40 88 16 91/57 L 99 02/28/23 00:35 89 16 99/57 L 98 02/28/23 00:30 88 18 90/64 L 99 02/28/23 00:25 89 17 98/59 L 99 02/28/23 00:20 89 17 94/62 L 100 02/28/23 00:15 89 16 94/58 L 99 02/28/23 00:10 89 16 100/65 99 02/28/23 00:07 88 15 82/55 L 97 02/28/23 00:00 88 19 97 02/27/23 23:55 87 17 105/31 L 97 02/27/23 23:51 88 02/27/23 23:50 88 24 90/73 L 97 02/27/23 23:45 87 22 120/55 L 99 02/27/23 23:40 85 15 99/69 L 98 02/27/23 23:35 84 15 81/54 L 99 02/27/23 23:30 84 16 81/53 L 97 02/27/23 23:32 88 L 02/27/23 23:25 84/47 L 02/27/23 23:25 86 16 73/39 L 96 02/27/23 23:20 86 16 77/50 L 96 02/27/23 23:15 85 15 84/59 L 97 02/27/23 23:10 85 15 96 02/27/23 23:07 85 20 82/54 L 98 02/27/23 23:15 82/50 L 02/27/23 23:02 84 15 89/57 L 92 02/27/23 23:00 83 16 89 L 02/27/23 22:19 88 16 102/69 91 02/27/23 21:30 88 101/61 90 02/27/23 21:15 90 16 93/70 L 92 02/27/23 21:05 92 H 16 92/66 L 94 02/27/23 20:00 94 H 18 121/69 97 02/27/23 19:56 96 02/27/23 19:55 98 H 02/27/23 19:43 36.7 C 114 H 18 98/56 L 99 O2 Del Method O2 Flow Rate 02/28/23 03:06 Room Air 02/28/23 02:10 02/28/23 02:05 02/28/23 02:00 02/28/23 01:55 02/28/23 01:50 02/28/23 01:45 02/28/23 01:40 02/28/23 01:35 02/28/23 01:30 02/28/23 01:25 02/28/23 01:20 02/28/23 01:15 02/28/23 01:10 02/28/23 01:05 02/28/23 01:00 02/28/23 00:55 02/28/23 00:50 02/28/23 00:45 02/28/23 00:40 02/28/23 00:35 02/28/23 00:30 02/28/23 00:25 02/28/23 00:20 02/28/23 00:15 02/28/23 00:10 02/28/23 00:07 02/28/23 00:00 02/27/23 23:55 02/27/23 23:51 02/27/23 23:50 02/27/23 23:45 02/27/23 23:40 02/27/23 23:35 02/27/23 23:30 02/27/23 23:32 Room Air, Nasal Cannula 0 02/27/23 23:25 02/27/23 23:25 02/27/23 23:20 02/27/23 23:15 02/27/23 23:10 02/27/23 23:07 02/27/23 23:15 02/27/23 23:02 Nasal Cannula 2 02/27/23 23:00 02/27/23 22:19 Room Air 02/27/23 21:30 Room Air 02/27/23 21:15 Room Air 02/27/23 21:05 Room Air 02/27/23 20:00 Room Air 02/27/23 19:56 Room Air 05/18/23 19:55 02/27/23 19:43 Coding Level of Care Code 11531 CRITICAL CARE 1ST 30-74M Diagnoses Septic shock A41.9; R65.21 Acute UTI (urinary tract infection) N39.0 Persistent atrial fibrillation I48.19 Diabetes mellitus with nephropathy E11.21 Rheumatoid arthritis M06.9 Rheumatoid arthritis location: multiple sites Rheumatoid factor presence: unspecified presence Hypertension I10 Hypertension type: essential hypertension Hyperlipidemia E78.5 Immunosuppression due to drug therapy Z79.899 (HFpEF) heart failure with preserved ejection fraction I50.30 Chronic kidney disease, stage 3b N18.32 Hypothyroidism E03.9 Hypothyroidism type: unspecified (5) Rheumatoid arthritis Rheumatoid arthritis location: multiple sites Rheumatoid factor presence: unspecified presence Qualified Code(s): M06.9 - Rheumatoid arthritis, unspecified (6) Hypertension Hypertension type: essential hypertension Qualified Code(s): I10 - Essential (primary) hypertension (11) Hypothyroidism Hypothyroidism type: unspecified Qualified Code(s): E03.9 - Hypothyroidism, unspecified
[2023-02-28] MEDS: INSULIN ASPART PER UNIT CHARGE SC SCH ×6 (04:02→23:19)
[2023-02-28] MEDS ORDERED: ONDANSETRON INJ 2 MG/ML 2 ML VIAL IV STA (04:09)
--- NOTE | 2023-02-28 05:21 | History & Physical Report ---
Date of Service February 28, 2023 Assessment & Plan (1) Septic shock: Plan: Patient presents to ED with complaints of generalized weakness with abdominal pain and low blood pressure Patient found to be in septic shock likely secondary to urinary source Started on IV pressor support with Levophed as systolic pressure was in 70s upon initial arrival Patient's white count was elevated over 16,000 along with elevated lactate level Follow sepsis protocol with IV fluid boluses Close monitoring of hemodynamics in ICU with blasting entryman consultation Broad-spectrum antibiotic coverage with IV vancomycin and cefepime started in ED Started on IV hydrocortisone on stress dose to rule out possible adrenal insufficiency Obtain serial lactate levels (2) Acute UTI (urinary tract infection): Plan: Started on broad-spectrum IV antibiotics with IV cefepime and vancomycin (3) Type 2 diabetes mellitus: Plan: Patient will be started on sliding scale coverage with short acting insulins based on fingerstick monitoring (4) Leukocytosis: Plan: Secondary to UTI and sepsis (5) Hyperlipidemia: Plan: Continue statin therapy (6) Hypothyroidism: Plan: Continue levothyroxine check TSH level (7) Paroxysmal atrial fibrillation: Plan: Patient is status post cardioversion x2 and continues to have A-fib episodes controlled on amiodarone presently Already anticoagulated with Eliquis Admission and Anticipated Discharge Date Admission Date: February 28, 2023 History of Present Illness Chief Complaint: Patient presents to ED with complaints of nausea with abdominal pain with generalized weakness and hypotension Primary Care Provider: Corby Arzola MD This is a 68-year-old female with past medical history significant history of rheumatoid arthritis, recurrent UTIs, CKD, paroxysmal A-fib on anticoagulation with Eliquis, hypothyroidism, who presents to the emergency department with complaints of generalized weakness associated with lower abdominal discomfort. Patient reports that she felt weak during the course of the day and checked her blood pressure at home and found her systolic blood pressure was in the 70s. Patient also has been having complaints of intermittent urinary symptoms and has been passing foul-smelling urine over the past few days. Patient became concerned of the symptoms associate with generalized weakness and is presents to ED for further evaluation. Upon evaluation in ED patient found to have systolic blood pressure in the 70s and was given IV fluid bolus along with supplemental oxygen for hypoxia. Patient found to have elevated lactate level along with elevated white count and elevated procalcitonin . Given patient's sustained hypotension patient was started on Levophed for vasopressor support and is being admitted to ICU for further management of sepsis .l Allergies Allergy/AdvReac Type Severity Reaction Status Date / Time tetracycline Allergy Severe Facial rash Verified 02/27/23 22:09 methenamine Allergy Intermediate Swelling Verified 02/27/23 22:09 of Lip/Tongue/Throat Gtmmdde-QXN-FwC Reductase AdvReac Intermediate LE edema Verified 02/27/23 22:09 Inhibitor [Vzfjfmx-Dwb-Wdd Reductase Inhibitor] morphine AdvReac Mild Nausea Verified 02/28/23 03:22 oxycodone AdvReac Mild Drowsy Verified 02/27/23 22:09 Home Medications Medication Instructions Recorded Confirmed Type cholecalciferol (vitamin D3) 25 1,000 unit PO QAM 10/26/18 02/27/23 History mcg (1,000 unit) capsule (Vitamin D3) magnesium 250 mg tablet 250 mg PO HS 10/26/18 02/27/23 History acetaminophen 500 mg tablet 1,000 mg PO Q6H PRN Pain 12/24/18 02/27/23 History (Tylenol Extra Strength) cyclobenzaprine 10 mg tablet 10 mg PO HS 04/21/21 02/27/23 History levothyroxine 100 mcg tablet 100 mcg PO QAM #90 tabs 09/16/22 02/27/23 Rx apixaban 5 mg tablet (Eliquis) 5 mg PO BID #180 tabs 12/02/22 02/27/23 Rx L.acidop,casei,lactis,rham-B.lact,reyes 1 cap PO HS 12/12/22 02/27/23 History 625 mg (10 billion cell) capsule (Advanced Probiotic) gabapentin 100 mg capsule 100 - 300 mg PO HS 12/12/22 02/27/23 History omeprazole 40 mg capsule,delayed 40 mg PO QAM 12/12/22 02/27/23 History release furosemide 20 mg tablet (Lasix) 20 mg PO DAILY PRN edema of legs 12/13/22 02/27/23 Rx #30 tabs alirocumab 75 mg/mL subcutaneous 75 mg subcut Q14D #2 mL 12/23/22 02/27/23 Rx pen injector (Praluent Pen) pen needle, diabetic 31 gauge x #100 ea 01/07/23 02/27/23 Rx 1/4" metoprolol succinate 100 mg 100 mg PO BID #180 tabs 01/13/23 02/27/23 Rx tablet,extended release 24 hr amiodarone 200 mg tablet 200 mg PO HS 01/19/23 02/27/23 History amlodipine 5 mg tablet 5 mg PO QAM 02/27/23 02/27/23 History amoxicillin 500 mg-potassium 1 tab PO Q12H 7 days #14 tabs 02/27/23 02/27/23 Rx clavulanate 125 mg tablet insulin glargine 100 unit/mL (3 5 unit subcut HS 02/27/23 02/27/23 History mL) subcutaneous pen (Lantus Solostar U-100 Insulin) semaglutide 0.25 mg or 0.5 mg (2 0.5 mg subcut Q7D 02/27/23 02/27/23 History mg/1.5 mL) subcutaneous pen injector (Ozempic) Past Med/Surg History Medical History (HFpEF) heart failure with preserved ejection fraction Anemia of chronic disease Hx iron infusions (most recent 01/31/23, [facility]) Anxiety Chronic kidney disease, stage 3b Diabetes mellitus type II, controlled GERD (gastroesophageal reflux disease) History of COVID-19 2020- hospitalized at [facility] for 9 days, no issues now History of MRSA infection lumbar surgical incision s/p vanco/ceftriaxone/bactrim per 04/2019 [facility] discharge summary History of recent blood transfusion 09/18/22 @ [facility] History of stroke Vertebrobasilar artery brainstem stroke 2020, slight residual left sided weakness Given TPA on 04/21/2021 with resolution of symptoms Hyperlipidemia Hypertension Hypothyroidism Immunosuppression due to drug therapy *Prednisone daily* Lumbar radiculopathy Neuropathy Paroxysmal atrial fibrillation x2 ablations, 12/2022 Recurrent UTI Rheumatoid arthritis Sepsis UTI (09/2022) Spinal stenosis Stenosis of left internal carotid artery 50-69% stenosis of left ICA per 04/2021 neck CTA Stenosis of left vertebral artery Approximately 90% stenosis within V4 segment of left vertebral artery per 04/21/2021 neck CTA Surgical History History of x2 History of cardiac radiofrequency ablation 12/13/22 and 12/31/22 ([facility]) History of ERCP W/STENT PLACEMENT History of esophagogastroduodenoscopy (EGD) History of hysterectomy total History of lumbar surgery Lumbar Spine Wound Revision 2019 History of total left knee replacement Hx laparoscopic cholecystectomy (02/12/23) Robotic Assisted Laparoscopic Cholecystectomy (Not Applicable) - Otto Fish, DO Hx of colonoscopy Hx of tonsillectomy Status post laminectomy with spinal fusion L2-L5 laminectomy/fusion (12/24/18): Grade view 1, MAC#3, ETT 7.0 Family History Father Diabetes Lung cancer Cancer Hypertension Mother Malignant neoplasm of brain Diabetes Brain tumor Cancer Hypertension Aunt Breast cancer Sister Hypertension Other No family history of adverse response to anesthesia Denies family history of Ovarian cancer Prostate cancer Myocardial infarction Colorectal cancer Social History Smoking Status: Never smoker Second Hand Exposure: Yes (HX); Do You Dip or Chew Tobacco: No; Hx Alcohol Use: Yes Alcohol type: wine Alcohol Intake Frequency: 2-4 x/Month Hx Substance Use: No Preferred Language: Chinese Communication Ability: Effective Visual Impairment: No Limitations Hearing Ability: Normal Retail Stocker Required: No Beliefs That Will Affect Care: None marital status: Current Living Situation: Spouse Current Living Situation Comment: 1 level home current occupational status: retired How many Children do You have: 2 other: 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 Feels Safe at Home: Yes Safety Concerns: Feels Safe At This Time Childhood Exposure to Second-Hand Smoke: Yes Diet: gluten free caffeine: Yes Dental Care, Regularly: Yes Physical Activity Frequency: 5-6 Times per Week Physical Activity Frequency Comment: gym Seatbelt Use: always Sunscreen Use: Yes Do you think of yourself as: straight/heterosexual Assistive Devices: Cane and Glasses Review of Systems Review of Systems: Constitutional-subjective chills ENT- no epistaxis, no sore throat Respiratory- no shortness of breath Cardiac-no palpitations, no chest pain, subjective dizziness GI-poor p.o. intake with intermittent nausea -passing dark foul-smelling urine Musculoskeletal-reports muscle weakness Skin-no bruising, no rashes, no pruritus Neuro-generalized weakness no focal weakness Physical Exam Physical Exam: Head and ENT no thyroid enlargement trachea midline Oral mucosa dry Cardiovascular S1-S2 are normal no S3 Lungs bilateral air entry decreased at bases scattered rhonchi Abdomen soft nondistended no rebound tenderness Extremity shows trace edema Neurologically no focal deficits Skin shows no rash no cyanosis Results & Data Results & Data Vital Signs (Past 12 Hours) Vital Signs Temp Pulse Pulse Resp BP BP Pulse Ox 02/28/23 03:45 111/56 L 02/28/23 03:45 84 16 97 02/28/23 03:30 85 14 02/28/23 03:30 95/57 L 02/28/23 03:15 116/62 02/28/23 03:15 87 15 93 02/28/23 03:00 89 16 97 02/28/23 03:00 114/62 02/28/23 02:45 98/61 L 02/28/23 02:45 86 22 100 02/28/23 02:40 84 23 02/28/23 02:40 113/69 02/28/23 02:39 86 17 02/28/23 02:20 111/52 L 02/28/23 02:20 86 16 97 02/28/23 02:15 90/62 L 02/28/23 02:15 85 12 97 02/28/23 03:40 02/28/23 03:40 84 16 97 02/28/23 01:28 36.7 C 02/28/23 03:06 02/28/23 02:10 86 13 93/65 L 98 02/28/23 02:05 85 15 80/56 L 98 02/28/23 02:00 86 14 87/59 L 97 02/28/23 01:55 86 13 101/73 97 02/28/23 01:50 85 14 91/58 L 97 02/28/23 01:45 85 13 97/61 L 97 02/28/23 01:40 85 14 86/63 L 97 02/28/23 01:35 86 15 86/61 L 96 02/28/23 01:30 86 16 96/60 L 97 02/28/23 01:25 85 15 87/58 L 96 02/28/23 01:20 85 15 89/54 L 96 02/28/23 01:15 86 14 98/57 L 97 02/28/23 01:10 86 16 97/60 L 97 02/28/23 01:05 87 15 94/55 L 97 02/28/23 01:00 88 16 96/61 L 97 02/28/23 00:55 88 16 99/59 L 97 02/28/23 00:50 89 16 110/61 97 02/28/23 00:45 87 19 107/57 L 98 02/28/23 00:40 88 16 91/57 L 99 02/28/23 00:35 89 16 99/57 L 98 02/28/23 00:30 88 18 90/64 L 99 02/28/23 00:25 89 17 98/59 L 99 02/28/23 00:20 89 17 94/62 L 100 02/28/23 00:15 89 16 94/58 L 99 02/28/23 00:10 89 16 100/65 99 02/28/23 00:07 88 15 82/55 L 97 02/28/23 00:00 88 19 97 02/27/23 23:55 87 17 105/31 L 97 02/27/23 23:51 88 02/27/23 23:50 88 24 90/73 L 97 02/27/23 23:45 87 22 120/55 L 99 02/27/23 23:40 85 15 99/69 L 98 02/27/23 23:35 84 15 81/54 L 99 02/27/23 23:30 84 16 81/53 L 97 02/27/23 23:32 88 L 02/27/23 23:25 84/47 L 02/27/23 23:25 86 16 73/39 L 96 02/27/23 23:20 86 16 77/50 L 96 02/27/23 23:15 85 15 84/59 L 97 02/27/23 23:10 85 15 96 02/27/23 23:07 85 20 82/54 L 98 02/27/23 23:15 82/50 L 02/27/23 23:02 84 15 89/57 L 92 02/27/23 23:00 83 16 89 L 02/27/23 22:19 88 16 102/69 91 02/27/23 21:30 88 101/61 90 02/27/23 21:15 90 16 93/70 L 92 02/27/23 21:05 92 H 16 92/66 L 94 02/27/23 20:00 94 H 18 121/69 97 02/27/23 19:56 96 02/27/23 19:55 98 H 02/27/23 19:43 36.7 C 114 H 18 98/56 L 99 O2 Del Method O2 Flow Rate 02/28/23 03:45 02/28/23 03:45 02/28/23 03:30 02/28/23 03:30 02/28/23 03:15 02/28/23 03:15 02/28/23 03:00 02/28/23 03:00 02/28/23 02:45 02/28/23 02:45 02/28/23 02:40 02/28/23 02:40 02/28/23 02:39 02/28/23 02:20 02/28/23 02:20 02/28/23 02:15 02/28/23 02:15 02/28/23 03:40 Nasal Cannula 2 02/28/23 03:40 Nasal Cannula 2 02/28/23 01:28 02/28/23 03:06 Room Air 02/28/23 02:10 02/28/23 02:05 02/28/23 02:00 02/28/23 01:55 02/28/23 01:50 02/28/23 01:45 02/28/23 01:40 02/28/23 01:35 02/28/23 01:30 02/28/23 01:25 02/28/23 01:20 02/28/23 01:15 02/28/23 01:10 02/28/23 01:05 02/28/23 01:00 02/28/23 00:55 02/28/23 00:50 02/28/23 00:45 02/28/23 00:40 02/28/23 00:35 02/28/23 00:30 02/28/23 00:25 02/28/23 00:20 02/28/23 00:15 02/28/23 00:10 02/28/23 00:07 02/28/23 00:00 02/27/23 23:55 02/27/23 23:51 02/27/23 23:50 02/27/23 23:45 02/27/23 23:40 02/27/23 23:35 02/27/23 23:30 02/27/23 23:32 Room Air, Nasal Cannula 0 02/27/23 23:25 02/27/23 23:25 02/27/23 23:20 02/27/23 23:15 02/27/23 23:10 02/27/23 23:07 02/27/23 23:15 02/27/23 23:02 Nasal Cannula 2 02/27/23 23:00 02/27/23 22:19 Room Air 02/27/23 21:30 Room Air 02/27/23 21:15 Room Air 02/27/23 21:05 Room Air 02/27/23 20:00 Room Air 02/27/23 19:56 Room Air 02/27/23 19:55 02/27/23 19:43 Laboratory Results Short CBC 02/27/23 02/28/23 02/28/23 Range/Units 19:55 02:43 04:59 WBC 16.82 H 27.90 H D 28.69 H (4.8-10.8) K/ul Hgb 12.3 9.8 L 9.5 L (12.0-16.0) g/dl Hct 40.5 32.2 L 31.2 L (37.0-47.0) % Plt Count 344 317 323 (130-400) K/uL BMP 02/27/23 02/28/23 02/28/23 19:55 01:07 04:59 Sodium 138 137 137 Potassium 4.1 4.2 4.6 Chloride 102 104 106 Carbon Dioxide 24 22 23 BUN 28 H 30 H 31 H Creatinine 1.45 H 1.75 H D 1.65 H Glucose 136 H 153 H 144 H Calcium 9.2 8.3 L 7.7 L Liver Function 02/27/23 02/28/23 02/28/23 Range/Units 19:55 01:07 04:59 Total Bilirubin 0.3 0.3 0.3 (0.2-1.0) mg/dl Direct Bilirubin 0.0 (0-0.2) mg/dl AST 24 23 20 (13-39) U/L ALT 22 20 21 (7-52) U/L Alkaline Phosphatase 59 50 46 (34-104) U/L Albumin 4.0 3.3 L 3.0 L (3.4-5.0) gm/dl Urine 02/27/23 02/28/23 Range/Units 22:26 Unknown Urine Color Dark Yellow Yellow Urine Appearance Turbid A Cloudy A (Clear) Urine pH 5.5 5.5 (4.5-7.5) Ur Specific [place] Switch 1.021 1.017 (1.000-1.030) Urine Protein 2+ H 1+ H (Negative) Urine Glucose (UA) Negative Negative (Negative) Diagnostic Findings Abdomen/Pelvis CT 02/27/23 19:55 Exam(s): CT ABDOMEN + PELVIS Without Contrast EXAM: CT Abdomen and Pelvis Without Intravenous Contrast CLINICAL HISTORY: Reason for exam: lower abdominal pain; nausea; hypotension. TECHNIQUE: Axial computed tomography images of the abdomen and pelvis without intravenous contrast. Automated exposure control was utilized for the study. A dose lowering technique was utilized adhering to the principles of ALARA. COMPARISON: No relevant prior studies available. FINDINGS: Lung bases: Unremarkable. No mass. No consolidation. ABDOMEN: Liver: Unremarkable. Gallbladder and bile ducts: Common bile duct stent. Pneumobilia. No calcified stones. Pancreas: Unremarkable. No ductal dilation. Spleen: Unremarkable. No splenomegaly. Adrenals: Unremarkable. No mass. Kidneys and ureters: Unremarkable. No obstructing stones. No hydronephrosis. Stomach and bowel: Diverticulosis, without acute diverticulitis. No small bowel obstruction. No free intraperitoneal air. PELVIS: Appendix: Normal appendix. Bladder: Unremarkable. No stones. Reproductive: Nonobstructing 6 mm RIGHT lower pole renal calculus. Hysterectomy. ABDOMEN and PELVIS: Intraperitoneal space: Unremarkable. No free air. No significant fluid collection. Bones/joints: Posterior lumbar fusion L3-L5. Grade 1 anterolisthesis of L5 on S1 measures 8 mm. Degenerative changes of the spine. No acute fracture. No dislocation. Soft tissues: Unremarkable. Vasculature: Atherosclerotic changes of the aorta. No abdominal aortic aneurysm. Lymph nodes: Unremarkable. No enlarged lymph nodes. IMPRESSION: 1. Normal appendix. 2. Nonobstructing 6 mm RIGHT lower pole renal calculus. Hysterectomy. 3. Common bile duct stent. Pneumobilia. 4. Diverticulosis, without acute diverticulitis. No small bowel obstruction. No free intraperitoneal air. Electronically signed by: Jed Lagunas MD 02/27/23 22:59 PM Chest X-Ray 02/27/23 23:25 XR chest 1V portable CLINICAL HISTORY: post IJ placement COMPARISON STUDY: Chest CT December 25, 2022. Chest radiograph January 19, 2023. FINDINGS: There is no pneumothorax following placement of a right internal jugular central line. Catheter tip projects over the right atrium. Cardiomediastinal silhouette is stable. Blunting of left costophrenic angle is likely chronic. No evidence for pulmonary edema or pneumonia. IMPRESSION: 1. No pneumothorax following placement of a right internal jugular central line. 2. No acute cardiopulmonary findings. ACT 112: Negative or not required by law. Electronically signed by: Gus Ojeda M.D. 02/28/2023 7:22 AM PG Care Time/CCT Total # of Minutes Spent Total Time Spent with Patient: Total time spent is greater than 50% in coordination of care (as documented) at patient's floor/unit and/or counseling patient: Coding Level of Care Code 31592 INT INP/OBS CARE 2/55MIN Diagnoses Septic shock A41.9; R65.21 Acute UTI (urinary tract infection) N39.0 Type 2 diabetes mellitus E11.9 Leukocytosis D72.829 Hyperlipidemia E78.5 Hypothyroidism E03.9 Hypothyroidism type: unspecified Paroxysmal atrial fibrillation I48.0 (6) Hypothyroidism Hypothyroidism type: unspecified Qualified Code(s): E03.9 - Hypothyroidism, unspecified
[2023-02-28 05:29] LABS: Hematocrit (blood only) 31.2 % (37.0-47.0); Hemoglobin 9.5 g/dl (12.0-16.0); Mean Corpuscular Hemoglobin 29.1 pg (25.0-34.0); Mean Corpuscular Hgb Conc 30.4 g/dL (32.0-36.0); Mean Corpuscular Volume 95.7 fL (80.0-100.0); Mean Platelet Volume 9.4 fL (9.4-12.4); Platelet Count 323 K/uL (130-400); RDW Coefficient of Variation 17.7 % (11.5-14.5); RDW Standard Deviation 62.2 fL (36.4-46.3); Red Blood Count 3.26 M/uL (4.20-5.40); White Blood Count 28.69 K/ul (4.8-10.8)
[2023-02-28 05:33] LABS: Albumin Globulin Ratio 1.4 (0.9-2); BUN Creatinine Ratio 18.8 (10-20); Bilirubin,Total 0.3 mg/dl (0.2-1.0); Calcium 7.7 mg/dl (8.6-10.3); Creatinine Clr Calc Pharmacy 34.8 ml/min; Est GFR (African American) 36.6 ml/min; Est GFR (Non-African American) 31.6 ml/min; Globulin 2.2 gm/dl (2.5-4.0); Magnesium 2.5 mg/dl (1.7-2.4); Phosphorus 5.1 mg/dl (2.5-4.9); Potassium 4.6 mmol/L (3.5-5.1); Total Protein 5.2 gm/dl (6.0-8.3)
[2023-02-28 05:40] LABS: Prothrombin Time 11.2 Seconds (9.0-12.0)
[2023-02-28] MEDS: LEVOTHYROXINE SODIUM 100 MCG TABLET PO SCH (05:45)
[2023-02-28 05:49] LABS: Basophils # (auto) 0.09 K/uL (0-0.2); Basophils % (auto) 0.3 %; Eosinophils # (auto) 0.12 K/uL (0-0.50); Eosinophils % (auto) 0.4 %; Immature Granulocytes % (auto) 1.4 %; Lymphocytes # (auto) 0.13 K/uL (1.2-3.4); Lymphocytes % (auto) 0.5 %; Monocytes # (auto) 0.64 K/uL (0.11-0.59); Monocytes % (auto) 2.2 %; Neutrophils # (auto) 27.31 K/uL (1.40-6.50); Neutrophils % (auto) 95.2 %; Polychromasia 1+
[2023-02-28 05:57] LABS: Appearance Urine Cloudy (Clear); Bacteria Urine Automated Negative (Negative); Bilirubin Urine Negative (Negative); Blood Urine Trace (Negative); Color Urine Yellow; Glucose Urine UA Negative (Negative); Ketones Urine Negative (Negative); Leukocyte Esterase Urine 2+ (Negative); Nitrite Urine Positive (Negative); Protein Urine 1+ (Negative); RBC Urine Automated 0-4 /hpf (0-4); Specific Gravity Urine 1.017 (1.000-1.030); Urobilinogen Urine Negative (Negative); WBC Urine Automated >30 /hpf (0-5); pH Urine 5.5 (4.5-7.5)
--- NOTE | 2023-02-28 07:23 | XRay Report ---
XR chest 1V portable CLINICAL HISTORY: post IJ placement COMPARISON STUDY: Chest CT December 25, 2022. Chest radiograph January 19, 2023. FINDINGS: There is no pneumothorax following placement of a right internal jugular central line. Cath eter tip projects over the right atrium. Cardiomediastinal silhouette is stable. Blunting of left cos tophrenic angle is likely chronic. No evidence for pulmonary edema or pneumonia. IMPRESSION: 1. No pneumothorax following placement of a right internal jugular central line. 2. No acute cardiopulmonary findings. ACT 112: Negative or not required by law. Electronically signed by: Gus Ojeda M.D. 02/28/2023 7:22 AM
[2023-02-28 08:19] LABS: Estimated Average Glucose 137 mg/dl; Hemoglobin A1C 6.4 % (4.5-5.6)
[2023-02-28] MEDS: PANTOprazole 40 MG TAB PO SCH (08:25)
[2023-02-28] MEDS: APIXABAN 5 MG TABLET PO SCH ×2 (08:25→20:39)
[2023-02-28] MEDS ORDERED: amLODIPine BESYLATE 5 MG TAB PO SCH (09:00)
[2023-02-28] MEDS ORDERED: METOPROLOL SUCC 50MG EXT REL TAB PO SCH (09:00)
[2023-02-28] MEDS: VANCOMYCIN HCL 1,000 MG in SODIUM CHLORIDE 0.9% 250 ML IV SCH (09:17)
[2023-02-28] MEDS ORDERED: LACTATED RINGER'S 500 ML IV ONE (09:26)
--- NOTE | 2023-02-28 10:34 | Pharmacy Report ---
Pharmacy PK ABX Note - Date of Service February 28, 2023 - Assessment and Plan Assessment 68 year old F receiving cefepime and vancomycin for treatment of septic shock due to likely urinary source. Urine and blood cultures pending. MRSA nasal (+). Patient with CKD, SCr-1.65mg/dL ~ baseline. Day # 1 of antimicrobial therapy. Plan Vancomycin * Loading dose: 1500 mg IV x 1 * Maintenance dose: 1000 mg IV every 24 hours * Regimen is predicted to achieve target AUC/RAFFI of 400-600 mg/L.hr * Will obtain a level around steady state if vancomycin continued Pharmacy will continue to follow and will adjust dose/frequency as necessary. Thank you. Pharmacy has transitioned to AUC monitoring for vancomycin. AUC/RAFFI is the preferred PK/PD target and is associated with decreased risk of nephrotoxicity compared to traditional trough targets.
--- NOTE | 2023-02-28 10:45 | Pharmacy Report ---
Pharmacy Glycemic Short Note 2 - Date of Service February 28, 2023 - Glycemic Short BSG Results (Last 24 hours): 02/27/23 02/27/23 02/28/23 19:55 22:37 01:07 Glucose 136 H 153 H POC Glucose POC Glucose (other) Cancelled 02/28/23 02/28/23 04:01 04:59 Glucose 144 H POC Glucose 130 H POC Glucose (other) OUTPATIENT ANTIDIABETIC REGIMEN: * Lantus 5 unit SQ HS * Semaglutide 0.5mg SQ weekly HbA1C: 6.4% ASSESSMENT: * Pt is a 68 year old female admitted to ICU with septic shock due to suspected urinary source. History of DM2 on Lantus and Ozempic at home. Pharmacy consulted to assist with glycemic management while inpatient. * Initially requiring vasopressor support, receiving hydrocortisone 50mg IV q8h (on chronic steroids at home), and IV antibiotics. Diet ordered. * BSGs [phone]/dL since admission. * Will continue Novolog monotherapy (~moderate stress) at this time given BSGs within goal range and A1C indicative of good control outpatient on minimal anti-hyperglycemic agents. Patient has required minimal insulin during previous visits even when on steroids. Adjusted to ACHS given diet ordered, and modified target BSG to 110-140mg/dL. Will adjust based upon BSG trend accordingly. PLAN FOR INPATIENT GLYCEMIC CONTROL: * Hold outpatient oral diabetes medications * Basal insulin * hold * Bolus insulin * NovoLog per scale ACHS or Q6hrs while NPO * Goal Range: Low 110 mg/dL - High 140 mg/dL * Correction Factor: 35 mg/dL/unit * Nutritional / Prandial insulin per carb ratio of 1 unit per 12 grams CHO consumed
[2023-02-28] MEDS: CEFEPIME 2,000 MG in SYRINGE 0 ML IV SCH ×2 (11:32→23:12)
[2023-02-28] MEDS ORDERED: GABAPENTIN 100 MG CAP PO PRN ×2 (12:45→16:52)
--- NOTE | 2023-02-28 15:26 | Electrocardiogram Report ---
Test Reason : Blood Pressure : / mmHG Vent. Rate : 103 BPM Atrial Rate : 103 BPM P-R Int : 166 ms QRS Dur : 074 ms QT Int : 346 ms P-R-T Axes : 057 023 050 degrees QTc Int : 453 ms Poor data quality, interpretation may be adversely affected Sinus tachycardia with occasional Premature ventricular complexes Otherwise normal ECG When compared with ECG of 19-JAN-2023 14:34, Premature ventricular complexes are now Present Confirmed by Gold Davis ([id number]) on 02/28/2023 3:25:50 PM Referred By: REFERRED SELF Confirmed By:Harry Davis
--- NOTE | 2023-02-28 15:29 | Electrocardiogram Report ---
Test Reason : Blood Pressure : / mmHG Vent. Rate : 088 BPM Atrial Rate : 088 BPM P-R Int : 208 ms QRS Dur : 074 ms QT Int : 354 ms P-R-T Axes : 063 016 033 degrees QTc Int : 428 ms Normal sinus rhythm Normal ECG When compared with ECG of 27-FEB-2023 19:56, (unconfirmed) Premature ventricular complexes are no longer Present Confirmed by Gold Davis ([id number] on 02/28/2023 3:29:08 PM Referred By: REFERRED SELF Confirmed By:Harry Davis
[2023-02-28] MEDS ORDERED: HYDROCODONE/ACETAMOPHEN 5/325MG TAB PO PRN (16:51)
--- NOTE | 2023-02-28 16:52 | Hospitalist Progress Note ---
Date of Service February 28, 2023 Assessment & Plan (1) Septic shock: Plan: presents with complaints of generalized weakness with abdominal pain and low blood pressure Patient found to be in septic shock likely secondary to urinary source, but suspect will become bacteremic given significantly elevated Procalcitonin Started on IV pressor support with Levophed as systolic pressure was in 70s upon initial arrival Patient's white count was elevated at 28k along with elevated lactate level which has improved Was also given IV fluid boluses and stress dose steroids with IV hydrocortisone Broad-spectrum antibiotic coverage with IV vancomycin and cefepime was started Ur cx and BCxs pending CT abd/pel without obstructing stone but does have right sided nephrolithiasis, biliary stent in place, no evidence of infection, LFTs normal CXR negative Has not had cystoscopy in over 5 years but has had numerous UTIs, follows with Urology BPs improved, weaned off Levophed, will transfer out of ICU Follow cxs Continue Cefepime and Vanco as she has a h/o numerous E. coli and Proteus UTIs and also is MRSA positive on nasal swab Follow CBC, CMP, Procal, Mag, Phos in AM Continue IV hydrocortisone and wean back to usual prednisone in 3 days (2) Acute UTI (urinary tract infection): Plan: as above Consult Urology regarding recurrent UTIs Should potentially have cystoscopy as outpt once infection clears given recurrent Proteus infections (3) Type 2 diabetes mellitus: Plan: pharmacy consulted A1C only 6.4% but is also anemic which may affect this insulin SSI (4) Neck pain: Plan: suspect muscle spasm due to holding head to left for prolonged period of time for IJ placement +TTP over right paraspinous muscles pt requests hydrocodone prn no need for imaging at this time (5) Demand ischemia of myocardium: Plan: trop mildly elevated at /16 initial ECG w/ artifact but no definite ischemic changes no chest pain repeat ECG today normal (6) Hypothyroidism: Plan: Continue levothyroxine TSH 4.5 last month f/u as outpt (7) Paroxysmal atrial fibrillation: Plan: Patient is status post cardioversion x2 last admissions Is in NSR here continue home amiodarone continue Eliquis tele monitoring Restart home metoprolol (8) (HFpEF) heart failure with preserved ejection fraction: Plan: was volume depleted from sepsis hold home lasix (9) Anemia of chronic disease: Plan: Hemoglobin 9.5, normocytic Has longstanding anemia of CKD and iron deficiency B12 and folate recently were normal Check iron studies in the morning-last transferrin saturation was 6% in 12/2022 Follow CBC (10) History of biliary stent insertion: Plan: CBD stent in place, now s/p cholecystectomy 3 weeks ago Follow-up with GI for stent removal (11) Chronic kidney disease, stage 3b: Plan: Creatinine around baseline at 1.6 -Avoid nephrotoxins -renally dose meds when appropriate -follow BMP (12) Vitamin D deficiency: Plan: Holding home vitamin D (13) Rheumatoid arthritis: Plan: Giving stress dose steroids, on chronic prednisone Also on alirocumab injections every 2 weeks Takes gabapentin at bedtime for pain (14) Hypertension: Plan: Recently started on amlodipine for hypertension Holding amlodipine for hypotension Holding metoprolol but can restart this evening Plan DVT prophylaxis-Eliquis Disposition-continued stay but downgrade from ICU to PCU Admission and Anticipated Discharge Date Admission Date: February 28, 2023 Subjective Pt feeling much better than when she came in. She is having a lot of pain in the muscles of her neck, moreso on the right side since she had to hold her head off to the left for a while during IJ placement. Denies SOB, CP. No abd pain or nausea, is eating dinner. She is frustrated about her recurrent UTIs. Physical Exam Constitutional: WD/WN, vitals as above Neck: trachea midline and + neck tender (over right paraspinous muscles,no ttp over spinous processes) Right neck with IJ CVC in place Respiratory: normal respiratory effort, lungs clear to auscultation Cardiovascular: Rate/Rhythm: regular rate and regular rhythm Heart Sounds: no murmur Extremities: + edema (trace pitting edema legs bilat) Gastrointestinal (Abdomen): normal bowel sounds, soft, nontender, no hepatosplenomegaly Musculoskeletal: Extremities: extremities normal to inspection; no cyanosis and no clubbing Skin: no rashes, warm and dry Neurologic: moves all extremities and awake; no focal motor deficits Psychiatric: A+Ox3, euthymic affect Results & Data Results & Data Vital Signs (Past 12 Hours) Vital Signs Pulse Resp BP Pulse Ox O2 Del Method O2 Flow Rate 02/28/23 12:00 89 28 H 90 Nasal Cannula 2 02/28/23 12:00 129/59 L 02/28/23 11:45 87 19 02/28/23 11:45 115/63 02/28/23 11:30 89 17 91 Nasal Cannula 2 02/28/23 11:30 117/91 02/28/23 11:15 84 14 98 Nasal Cannula 2 02/28/23 11:15 118/61 02/28/23 11:00 84 14 93 Nasal Cannula 2 02/28/23 11:00 116/58 L 02/28/23 10:45 112/59 L 02/28/23 10:45 84 14 94 Nasal Cannula 2 02/28/23 10:30 82 14 95 Nasal Cannula 2 02/28/23 10:30 106/62 02/28/23 10:15 103/58 L 02/28/23 10:15 82 20 92 Nasal Cannula 2 02/28/23 10:00 82 14 100 Nasal Cannula 2 02/28/23 10:00 102/55 L 02/28/23 09:45 83 17 100 Nasal Cannula 2 02/28/23 09:45 109/57 L 02/28/23 09:30 82 13 100 Nasal Cannula 2 02/28/23 09:30 98/55 L 02/28/23 09:19 89/60 L 02/28/23 09:19 83 23 99 Nasal Cannula 2 02/28/23 09:15 93/51 L 02/28/23 09:15 83 21 02/28/23 09:00 85 20 97 Nasal Cannula 2 02/28/23 09:00 91/54 L 02/28/23 08:45 81/60 L 02/28/23 08:45 86 23 94 Nasal Cannula 2 02/28/23 08:39 90 17 90 Nasal Cannula 2 02/28/23 08:39 112/56 L 02/28/23 08:30 85 16 02/28/23 08:30 97/55 L 02/28/23 08:15 86 15 02/28/23 08:15 103/59 L 02/28/23 08:02 90 24 94 Nasal Cannula 2 02/28/23 08:02 123/66 02/28/23 08:00 89 13 93 Nasal Cannula 2 02/28/23 08:00 114/66 02/28/23 07:45 106/64 02/28/23 07:45 91 H 23 92 Nasal Cannula 2 02/28/23 07:30 91 H 18 02/28/23 07:30 112/61 02/28/23 07:15 88 02/28/23 07:15 119/64 02/28/23 07:00 86 19 Nasal Cannula 2 02/28/23 07:00 127/65 02/28/23 07:33 85 02/28/23 06:15 115/63 02/28/23 06:15 84 12 02/28/23 06:00 83 22 02/28/23 06:00 112/63 02/28/23 05:45 133/78 02/28/23 05:45 85 14 98 02/28/23 05:30 83 17 02/28/23 05:30 123/66 02/28/23 05:15 85 15 98 02/28/23 05:15 118/63 02/28/23 05:00 84 15 98 02/28/23 05:00 109/60 Laboratory Results CBC, CMP, troponin,cortisol level, lactate, A1C reviewed PG Care Time/CCT Total # of Minutes Spent Total Time Spent with Patient: Total time spent is greater than 50% in coordination of care (as documented) at patient's floor/unit and/or counseling patient: Coding Level of Care Code 81055 SUB INP/OBS CARE 3/50MIN Diagnoses Septic shock A41.9; R65.21 Acute UTI (urinary tract infection) N39.0 Type 2 diabetes mellitus E11.9 Neck pain M54.2 Demand ischemia of myocardium I24.8 Hypothyroidism E03.9 Hypothyroidism type: unspecified Paroxysmal atrial fibrillation I48.0 (HFpEF) heart failure with preserved ejection fraction I50.30 Anemia of chronic disease D63.8 History of biliary stent insertion Z98.890 Chronic kidney disease, stage 3b N18.32 Vitamin D deficiency E55.9 Rheumatoid arthritis M06.9 Rheumatoid arthritis location: multiple sites Rheumatoid factor presence: unspecified presence Hypertension I10 Hypertension type: essential hypertension (6) Hypothyroidism Hypothyroidism type: unspecified Qualified Code(s): E03.9 - Hypothyroidism, unspecified (13) Rheumatoid arthritis Rheumatoid arthritis location: multiple sites Rheumatoid factor presence: unspecified presence Qualified Code(s): M06.9 - Rheumatoid arthritis, uns pecified (14) Hypertension Hypertension type: essential hypertension Qualified Code(s): I10 - Essential (primary) hypertension
[2023-02-28] MEDS: AMIODARONE 200 MG TAB PO SCH (20:39)
[2023-02-28] MEDS: MAGNESIUM OXIDE 400 MG TAB PO SCH (20:39)
--- NOTE | 2023-02-28 22:00 | Urology Consultation ---
Date of Consultation February 28, 2023 Assessment & Plan (1) Severe sepsis: Plan 68-year-old female with a history of recurrent UTIs who is currently admitted to the ICU due to hypotension and suspected sepsis from UTI. Patient is clinically improving. Agree with broad-spectrum antibiotics and tailor based on sensitivities No acute urologic invention necessary Discussed patient's complicated situation. She was already on essentially maximal UTI prevention prophylaxis. We can discuss as an outpatient whether or not treating her right kidney stone will make any difference She has an appointment with me on March 24 and we will keep that. Can discuss further options at that time. Recommend a total of 14 days of antibiotics. Urology to sign off History of Present Illness Reason for Consultation: Recurrent UTIs Attending Physician: Marisela Payne MD History of Present Illness 68-year-old female currently admitted to the ICU due to hypotension and suspected UTI. She was admitted She was admitted to the hospital earlier this morning. She was transferred to the ICU due to hypotension. She was started on hydrocortisone as she is on chronic prednisone and the could not rule out adrenal insufficiency. Labs showed initial leukocytosis of 16.8 which then increased to 28.6. Creatinine was 1.45 which then increased to 1.75 and has downtrended to 1.65. Urinalysis was positive for nitrites, 3+ leukocyte Estrace, greater than 30 WBCs but was negative for bacteria. Blood and urine c ultures are pending. She is currently on cefepime. CT scan of the abdomen and pelvis was performed which did not show any hydronephrosis d there is a 6 mm nonobstructing right lower pole stone. The bladder was noted to be otherwise normal. She reports feeling better now. She reports her only symptom was hypotension. She denied any dysuria or other urinary symptoms. She had previously completed 2 long courses of antibiotics. She is known to our office and I last saw her on 01/06/2023 for recurrent UTIs. She has been on probiotic, cranberry supplementation and topical estrogen therapy. She is allergic to methenamine. We started her on a low-dose Bactrim prophylaxis at her last visit. Allergies Allergy/AdvReac Type Severity Reaction Status Date / Time tetracycline Allergy Severe Facial rash Verified 02/27/23 22:09 methenamine Allergy Intermediate Swelling Verified 02/27/23 22:09 of Lip/Tongue/Throat Ixiwiom-KSR-RlF Reductase AdvReac Intermediate LE edema Verified 02/27/23 22:09 Inhibitor [Bxlmiei-Kug-Qtz Reductase Inhibitor] morphine AdvReac Mild Nausea Verified 02/28/23 03:22 oxycodone AdvReac Mild Drowsy Verified 02/27/23 22:09 Home Medications Medication Instructions Recorded Confirmed Type cholecalciferol (vitamin D3) 25 1,000 unit PO QAM 10/26/18 02/27/23 History mcg (1,000 unit) capsule (Vitamin D3) magnesium 250 mg tablet 250 mg PO HS 10/26/18 02/27/23 History acetaminophen 500 mg tablet 1,000 mg PO Q6H PRN Pain 12/24/18 02/27/23 History (Tylenol Extra Strength) cyclobenzaprine 10 mg tablet 10 mg PO HS 04/21/21 02/27/23 History levothyroxine 100 mcg tablet 100 mcg PO QAM #90 tabs 09/16/22 02/27/23 Rx apixaban 5 mg tablet (Eliquis) 5 mg PO BID #180 tabs 12/02/22 02/27/23 Rx L.acidop,casei,lactis,rham-B.lact,reyes 1 cap PO HS 12/12/22 02/27/23 History 625 mg (10 billion cell) capsule (Advanced Probiotic) gabapentin 100 mg capsule 100 - 300 mg PO HS 12/12/22 02/27/23 History omeprazole 40 mg capsule,delayed 40 mg PO QAM 12/12/22 02/27/23 History release furosemide 20 mg tablet (Lasix) 20 mg PO DAILY PRN edema of legs 12/13/22 02/27/23 Rx #30 tabs alirocumab 75 mg/mL subcutaneous 75 mg subcut Q14D #2 mL 12/23/22 02/27/23 Rx pen injector (Praluent Pen) pen needle, diabetic 31 gauge x #100 ea 01/07/23 02/27/23 Rx 1/4" metoprolol succinate 100 mg 100 mg PO BID #180 tabs 01/13/23 02/27/23 Rx tablet,extended release 24 hr amiodarone 200 mg tablet 200 mg PO HS 01/19/23 02/27/23 History amlodipine 5 mg tablet 5 mg PO QAM 02/27/23 02/27/23 History amoxicillin 500 mg-potassium 1 tab PO Q12H 7 days #14 tabs 02/27/23 02/27/23 Rx clavulanate 125 mg tablet insulin glargine 100 unit/mL (3 5 unit subcut HS 02/27/23 02/27/23 History mL) subcutaneous pen (Lantus Solostar U-100 Insulin) semaglutide 0.25 mg or 0.5 mg (2 0.5 mg subcut Q7D 02/27/23 02/27/23 History mg/1.5 mL) subcutaneous pen injector (Ozempic) Patient History Medical History (HFpEF) heart failure with preserved ejection fraction Anemia of chronic disease Hx iron infusions (most recent 01/31/23, [facility]) Anxiety Chronic kidney disease, stage 3b Diabetes mellitus type II, controlled GERD (gastroesophageal reflux disease) History of COVID-2020- hospitalized at [facility] for 9 days, no issues now History of MRSA infection lumbar surgical incision s/p vanco/ceftriaxone/bactrim per 04/2019 [facility] discharge summary History of recent blood transfusion 09/18/22 @ [facility] History of stroke Vertebrobasilar artery brainstem stroke 2020, slight residual left sided weakness Given TPA on 04/21/2021 with resolution of symptoms Hyperlipidemia Hypertension Hypothyroidism Immunosuppression due to drug therapy *Prednisone daily* Lumbar radiculopathy Neuropathy Paroxysmal atrial fibrillation x2 ablations, 12/2022 Recurrent UTI Rheumatoid arthritis Sepsis UTI (09/2022) Spinal stenosis Stenosis of left internal carotid artery 50-69% stenosis of left ICA per 04/2021 neck CTA Stenosis of left vertebral artery Approximately 90% stenosis within V4 segment of left vertebral artery per 04/21/2021 neck CTA Surgical History History of x2 History of cardiac radiofrequency ablation 12/13/22 and 12/31/22 ([facility]) History of ERCP W/STENT PLACEMENT History of esophagogastroduodenoscopy (EGD) History of hysterectomy total History of lumbar surgery Lumbar Spine Wound Revision 2018 History of total left knee replacement Hx laparoscopic cholecystectomy (02/12/23) Robotic Assisted Laparoscopic Cholecystectomy (Not Applicable) - Otto Fish DO Hx of colonoscopy Hx of tonsillectomy Status post laminectomy with spinal fusion L2-L5 laminectomy/fusion (12/24/18): Grade view 1, MAC#3, ETT 7.0 Family History Father Diabetes Lung cancer Cancer Hypertension Mother Malignant neoplasm of brain Diabetes Brain tumor Cancer Hypertension Aunt Breast cancer Sister Hypertension Other No family history of adverse response to anesthesia Denies family history of Ovarian cancer Prostate cancer Myocardial infarction Colorectal cancer Social History Smoking Status: Never smoker Second Hand Exposure: Yes (HX); Do You Dip or Chew Tobacco: No; Hx Alcohol Use: Yes Alcohol type: wine Alcohol Intake Frequency: 2-4 x/Month Hx Substance Use: No Preferred Language: Faroese Communication Ability: Effective Visual Impairment: No Limitations Hearing Ability: Normal Assistant Executive Housekeeper Required: No Beliefs That Will Affect Care: None marital status: Current Living Situation: Spouse Current Living Situation Comment: 1 level home current occupational status: retired How many Children do You have: 2 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 Feels Safe at Home: Yes Safety Concerns: Feels Safe At This Time Childhood Exposure to Second-Hand Smoke: Yes Diet: gluten free caffeine: Yes Dental Care, Regularly: Yes Physical Activity Frequency: 5-6 Times per Week Physical Activity Frequency Comment: gym Seatbelt Use: always Sunscreen Use: Yes Do you think of yourself as: straight/heterosexual Assistive Devices: None Review of Systems Review of Systems: 14 point review of systems negative outside of what is listed above in HPI Physical Exam Physical Exam: General: Alert and oriented, no acute distress HEENT: Normocephalic, mucous membranes moist Pulmonary: Nonlabored respirations Abdomen: Nondistended Extremities: Moves all 4 spontaneously Neuro: No gross deficits Skin: Warm, dry, no rashes noted Results & Data Vital Signs (Past 12 Hours) Vital Signs Pulse Resp BP Pulse Ox O2 Del Method O2 Flow Rate 02/28/23 18:00 90 14 92 Nasal Cannula 2 02/28/23 17:45 121/56 L 02/28/23 17:45 89 16 92 Nasal Cannula 2 02/28/23 17:30 89 14 91 Nasal Cannula 2 02/28/23 17:30 118/58 L 02/28/23 17:15 109/57 L 02/28/23 17:15 86 16 92 Nasal Cannula 2 02/28/23 17:00 88 15 02/28/23 17:00 125/60 02/28/23 16:45 90 17 92 Nasal Cannula 2 02/28/23 16:45 130/61 02/28/23 16:30 124/64 02/28/23 16:30 92 H 17 93 Nasal Cannula 2 02/28/23 16:15 116/62 02/28/23 16:15 86 14 02/28/23 16:00 86 13 02/28/23 16:00 110/63 02/28/23 15:45 125/63 02/28/23 15:45 86 15 93 Nasal Cannula 2 02/28/23 15:30 125/61 02/28/23 15:30 86 15 92 Nasal Cannula 2 02/28/23 15:15 128/63 02/28/23 15:15 87 18 92 Nasal Cannula 2 02/28/23 15:15 128/63 02/28/23 15:00 92 H 14 Nasal Cannula 2 02/28/23 15:00 104/86 02/28/23 14:45 112/65 02/28/23 14:45 85 30 H 93 Nasal Cannula 2 02/28/23 14:30 86 17 98 Nasal Cannula 2 02/28/23 14:30 124/61 02/28/23 14:30 124/61 02/28/23 14:15 84 19 02/28/23 14:15 119/61 02/28/23 14:00 85 24 99 Nasal Cannula 2 02/28/23 14:00 124/60 02/28/23 13:45 120/60 02/28/23 13:45 84 15 96 Nasal Cannula 2 02/28/23 13:45 120/60 02/28/23 13:30 114/59 L 02/28/23 13:30 85 20 100 Nasal Cannula 2 02/28/23 13:15 86 23 99 Nasal Cannula 2 02/28/23 13:15 122/59 L 02/28/23 13:00 86 24 99 Nasal Cannula 2 02/28/23 13:00 113/58 L 02/28/23 12:45 118/59 L 02/28/23 12:45 85 13 02/28/23 12:30 114/64 02/28/23 12:30 85 98 Nasal Cannula 2 02/28/23 12:15 105/58 L 02/28/23 12:15 86 23 96 Nasal Cannula 2 02/28/23 12:00 89 28 H 90 Nasal Cannula 2 02/28/23 12:00 129/59 L 02/28/23 11:45 87 19 02/28/23 11:45 115/63 02/28/23 11:30 89 17 91 Nasal Cannula 2 02/28/23 11:30 117/91 02/28/23 11:15 84 14 98 Nasal Cannula 2 02/28/23 11:15 118/61 02/28/23 11:00 84 14 93 Nasal Cannula 2 02/28/23 11:00 116/58 L 02/28/23 10:45 112/59 L 02/28/23 10:45 84 14 94 Nasal Cannula 2 02/28/23 10:30 82 14 95 Nasal Cannula 2 02/28/23 10:30 106/62 02/28/23 10:15 103/58 L 02/28/23 10:15 82 20 92 Nasal Cannula 2 02/28/23 10:00 82 14 100 Nasal Cannula 2 02/28/23 10:00 102/55 L PG Care Time/CCT Total # of Minutes Spent Total Time Spent with Patient: Total time spent is greater than 50% in coordination of care (as documented) at patient's floor/unit and/or counseling patient: Coding Level of Care Code 92971 INT INP/OBS CARE 2/55MIN Diagnoses Severe sepsis A41.9; R65.20
[2023-02-28] MEDS: METOPROLOL SUCC 50MG EXT REL TAB PO SCH (22:02)
[2023-02-28] MEDS: ACETAMINOPHEN 325 MG TAB PO PRN (23:24)
[2023-03-01] MEDS: HYDROCORTISONE SOD 50 MG in SYRINGE 0 ML IV SCH ×3 (04:30→20:12)
[2023-03-01] MEDS: INSULIN ASPART PER UNIT CHARGE SC SCH ×5 (04:50→20:12)
[2023-03-01 05:28] LABS: Basophils # (auto) 0.04 K/uL (0-0.2); Basophils % (auto) 0.3 %; Eosinophils # (auto) 0.08 K/uL (0-0.50); Eosinophils % (auto) 0.5 %; Hematocrit (blood only) 27.2 % (37.0-47.0); Hemoglobin 8.3 g/dl (12.0-16.0); Immature Granulocytes # (auto) 0.16 K/uL (0.01-0.20); Lymphocytes # (auto) 0.76 K/uL (1.2-3.4); Lymphocytes % (auto) 4.9 %; Mean Corpuscular Hemoglobin 29.1 pg (25.0-34.0); Mean Corpuscular Hgb Conc 30.5 g/dL (32.0-36.0); Mean Corpuscular Volume 95.4 fL (80.0-100.0); Mean Platelet Volume 9.9 fL (9.4-12.4); Monocytes # (auto) 0.91 K/uL (0.11-0.59); Monocytes % (auto) 5.8 %; Neutrophils # (auto) 13.64 K/uL (1.40-6.50); Neutrophils % (auto) 87.5 %; Platelet Count 207 K/uL (130-400); RDW Standard Deviation 63.7 fL (36.4-46.3); Red Blood Count 2.85 M/uL (4.20-5.40); White Blood Count 15.59 K/ul (4.8-10.8)
[2023-03-01 05:29] LABS: Albumin Globulin Ratio 1.2 (0.9-2); Albumin Level 2.8 gm/dl (3.4-5.0); BUN Creatinine Ratio 20.9 (10-20); Bilirubin,Total 0.2 mg/dl (0.2-1.0); Creatinine Clr Calc Pharmacy 36.4 ml/min; Est GFR (African American) 38.6 ml/min; Est GFR (Non-African American) 33.3 ml/min; Globulin 2.3 gm/dl (2.5-4.0); Magnesium 2.5 mg/dl (1.7-2.4); Phosphorus 3.7 mg/dl (2.5-4.9); Potassium 4.4 mmol/L (3.5-5.1); Total Protein 5.1 gm/dl (6.0-8.3)
[2023-03-01 05:50] LABS: Ferritin 322.8 ng/ml (8-388)
[2023-03-01] MEDS: LEVOTHYROXINE SODIUM 100 MCG TABLET PO SCH (06:08)
[2023-03-01] MEDS: PANTOprazole 40 MG TAB PO SCH (07:39)
[2023-03-01] MEDS: METOPROLOL SUCC 50MG EXT REL TAB PO SCH ×2 (07:39→20:14)
[2023-03-01] MEDS: VANCOMYCIN HCL 1,000 MG in SODIUM CHLORIDE 0.9% 250 ML IV SCH (10:13)
[2023-03-01] MEDS: APIXABAN 5 MG TABLET PO SCH ×2 (10:13→20:10)
[2023-03-01] MEDS: CEFEPIME 2,000 MG in SYRINGE 0 ML IV SCH ×2 (12:03→22:36)
--- NOTE | 2023-03-01 15:50 | Hospitalist Progress Note ---
Date of Service March 01, 2023 Assessment & Plan (1) Septic shock: Plan: presents with complaints of generalized weakness with abdominal pain and low blood pressure Patient found to be in septic shock likely secondary to urinary source, but suspect will become bacteremic given significantly elevated Procalcitonin--> unfortunately, Ur cx mixed emil and repeat negative; BCxs remain NGTD at 36 hours Started on IV pressor support with Levophed as systolic pressure was in 70s upon initial arrival Patient's white count was elevated at 28k along with elevated lactate level, both of which now have improved Was given IV fluid boluses and stress dose steroids with IV hydrocortisone Broad-spectrum antibiotic coverage with IV vancomycin and cefepime was started Blood pressures remain normalized Ur cx from 02/27 unfortunately with mixed emil and repeat urine culture 02/28-no growth BCxs no growth to date CT abd/pel without obstructing stone but does have right sided nephrolithiasis, biliary stent in place, no evidence of infection, LFTs normal CXR negative Has not had cystoscopy in over 5 years but has had numerous UTIs, follows with Urology -Follow blood cultures -Continue Cefepime and Vanco as she has a h/o numerous E. coli and Proteus UTIs and also is MRSA positive on nasal swab-since cultures negative thus far, plan to discharge to home with Cipro to finish out a 14-day course on discharge -Follow CBC, CMP, Procal, Mag, Phos in AM -Continue IV hydrocortisone and wean-to twice daily today, then back to usual prednisone 10 Mg daily in 3 days (2) Acute UTI (urinary tract infection): Plan: as above Consult Urology regarding recurrent Proteus UTIs appreciated Should potentially have cystoscopy as outpt once infection clears given recurrent Proteus infections-May need nephrolithiasis treated as per urology (3) Type 2 diabetes mellitus: Plan: pharmacy consulted A1C only 6.4% but is also anemic which may affect this insulin SSI (4) Neck pain: Plan: suspect muscle spasm due to holding head to left for prolonged period of time for IJ placement +TTP over right paraspinous muscles pt requests hydrocodone prn-has not used no need for imaging at this time Improved (5) Demand ischemia of myocardium: Plan: trop mildly elevated at 16 initial ECG w/ artifact but no definite ischemic changes no chest pain repeat ECG normal (6) Hypothyroidism: Plan: Continue levothyroxine TSH 4.5 last month f/u as outpt (7) Paroxysmal atrial fibrillation: Plan: Patient is status post cardioversion x2 last admissions Remains in NSR here continue home amiodarone continue Eliquis tele monitoring Continue home metoprolol (8) (HFpEF) heart failure with preserved ejection fraction: Plan: was volume depleted from sepsis holding home lasix (9) Anemia of chronic disease: Plan: Hemoglobin 9.5, normocytic, now down further to 8.3-likely hemodilutional. No evidence of bleeding from anywhere Has longstanding anemia of CKD and iron deficiency B12 and folate recently were normal -last transferrin saturation was 6% in 12/2022 and now slightly improved to 10% Follow CBC -We will give IV Venofer here prior to discharge if blood cultures remain negative Needs GI follow-up if has not had EGD or colonoscopy (10) History of biliary stent insertion: Plan: CBD stent in place, now s/p cholecystectomy 3 weeks ago Follow-up with GI for stent removal planned for next Friday (11) Chronic kidney disease, stage 3b: Plan: Creatinine around baseline at 1.6 -Avoid nephrotoxins -renally dose meds when appropriate -follow BMP (12) Vitamin D deficiency: Plan: Holding home vitamin D (13) Rheumatoid arthritis: Plan: Giving stress dose steroids, on chronic prednisone Follows with Dr. Ayala of rheumatology Takes gabapentin at bedtime for pain Patient would like to wean off prednisone-she will follow-up with Dr. Ayala for this (14) Hypertension: Plan: Recently started on amlodipine for hypertension-tends to have whitecoat hypertension Holding amlodipine for hypotension and may not need to restart this until as an outpatient Continue metoprolol Previously had side effects with diltiazem and was told not to take lisinopril due to her renal issues Plan DVT prophylaxis-Eliquis Disposition-continued stay on PCU Discontinue right IJ central venous catheter and hold pressure as per IV team I spent 52 minutes in total in the care of this patient including lengthy discussions with patient and her at the bedside about her care, diagnosis and prognosis. Admission and Anticipated Discharge Date Admission Date: February 28, 2023 Subjective Feeling much better. Denies abd pain, no BM. No further urinary symptoms. BPs stable. Has been OOB and ambulated with a walker on her own in room and out to a chair x 4 hours. Has no other complaints. Tele with NSR, normal rates. Physical Exam Constitutional: WD/WN, vitals as above Neck: trachea midline Respiratory: normal respiratory effort, lungs clear to auscultation Cardiovascular: Rate/Rhythm: regular rate and regular rhythm Heart Sounds: no murmur Extremities: + edema (trace pitting edema legs bilat) Gastrointestinal (Abdomen): normal bowel sounds, soft, nontender, no hepatosplenomegaly Musculoskeletal: Extremities: extremities normal to inspection; no cyanosis and no clubbing Skin: no rashes, warm and dry Neurologic: moves all extremities and awake; no focal motor deficits Psychiatric: A+Ox3, euthymic affect Results & Data Results & Data Vital Signs (Past 12 Hours) Vital Signs Temp Pulse Resp BP Pulse Ox O2 Del Method 03/01/23 15:36 83 03/01/23 11:34 83 16 123/71 96 Room Air 03/01/23 11:32 82 03/01/23 08:00 82 22 03/01/23 07:01 78 12 100 Room Air 03/01/23 07:01 154/86 H 03/01/23 07:01 154/86 H 03/01/23 06:45 77 12 98 03/01/23 08:00 77 03/01/23 04:01 153/89 H 03/01/23 04:01 77 14 100 03/01/23 04:00 36.4 C L 77 19 100 Laboratory Results CBC, BMP, Mag, Phos, Fe studies reviewed PG Care Time/CCT Total # of Minutes Spent Total Time Spent with Patient: Total time spent is greater than 50% in coordination of care (as documented) at patient's floor/unit and/or counseling patient: Coding Level of Care Code 03092 SUB INP/OBS CARE 3/50MIN Diagnoses Septic shock A41.9; R65.21 Acute UTI (urinary tract infection) N39.0 Type 2 diabetes mellitus E11.9 Neck pain M54.2 Demand ischemia of myocardium I24.8 Hypothyroidism E03.9 Hypothyroidism type: unspecified Paroxysmal atrial fibrillation I48.0 (HFpEF) heart failure with preserved ejection fraction I50.30 Anemia of chronic disease D63.8 History of biliary stent insertion Z98.890 Chronic kidney disease, stage 3b N18.32 Vitamin D deficiency E55.9 Rheumatoid arthritis M06.9 Rheumatoid arthritis location: multiple sites Rheumatoid factor presence: unspecified presence Hypertension I10 Hypertension type: essential hypertension (6) Hypothyroidism Hypothyroidism type: unspecified Qualified Code(s): E03.9 - Hypothyroidism, unspecified (13) Rheumatoid arthritis Rheumatoid arthritis location: multiple sites Rheumatoid factor presence: unspecified presence Qualified Code(s): M06.9 - Rheumatoid arthritis, unspecified (14) Hypertension Hypertension type: essential hypertension Qualified Code(s): I10 - Essential (primary) hypertension
[2023-03-01] MEDS: AMIODARONE 200 MG TAB PO SCH (20:10)
[2023-03-01] MEDS: MAGNESIUM OXIDE 400 MG TAB PO SCH (20:13)
[2023-03-01] MEDS ORDERED: LANTUS PER UNIT CHARGE SC SCH (21:00)
[2023-03-01] MEDS: ACETAMINOPHEN 325 MG TAB PO PRN (22:35)
[2023-03-02 05:30] LABS: Basophils # (auto) 0.04 K/uL (0-0.2); Basophils % (auto) 0.4 %; Eosinophils # (auto) 0.07 K/uL (0-0.50); Eosinophils % (auto) 0.6 %; Hematocrit (blood only) 27.4 % (37.0-47.0); Hemoglobin 8.4 g/dl (12.0-16.0); Immature Granulocytes # (auto) 0.17 K/uL (0.01-0.20); Immature Granulocytes % (auto) 1.6 %; Lymphocytes # (auto) 0.95 K/uL (1.2-3.4); Lymphocytes % (auto) 8.7 %; Mean Corpuscular Hgb Conc 30.7 g/dL (32.0-36.0); Mean Corpuscular Volume 94.5 fL (80.0-100.0); Mean Platelet Volume 9.8 fL (9.4-12.4); Monocytes # (auto) 0.57 K/uL (0.11-0.59); Monocytes % (auto) 5.2 %; Neutrophils # (auto) 9.09 K/uL (1.40-6.50); Neutrophils % (auto) 83.5 %; Platelet Count 221 K/uL (130-400); RDW Coefficient of Variation 17.6 % (11.5-14.5); RDW Standard Deviation 61.4 fL (36.4-46.3); White Blood Count 10.89 K/ul (4.8-10.8)
[2023-03-02 05:45] LABS: Albumin Globulin Ratio 1.2 (0.9-2); BUN Creatinine Ratio 21.9 (10-20); Bilirubin,Total 0.2 mg/dl (0.2-1.0); Calcium 8.1 mg/dl (8.6-10.3); Creatinine Clr Calc Pharmacy 44.6 ml/min; Est GFR (African American) 49.7 ml/min; Est GFR (Non-African American) 42.9 ml/min; Globulin 2.5 gm/dl (2.5-4.0); Magnesium 2.2 mg/dl (1.7-2.4); Phosphorus 2.7 mg/dl (2.5-4.9); Potassium 3.9 mmol/L (3.5-5.1); Total Protein 5.5 gm/dl (6.0-8.3)
[2023-03-02] MEDS: LEVOTHYROXINE SODIUM 100 MCG TABLET PO SCH (06:11)
[2023-03-02] MEDS: APIXABAN 5 MG TABLET PO SCH (07:48)
[2023-03-02] MEDS: METOPROLOL SUCC 50MG EXT REL TAB PO SCH (07:48)
[2023-03-02] MEDS: HYDROCORTISONE SOD 50 MG in SYRINGE 0 ML IV SCH (07:48)
[2023-03-02] MEDS: PANTOprazole 40 MG TAB PO SCH (07:48)
[2023-03-02] MEDS: INSULIN ASPART PER UNIT CHARGE SC SCH (07:49)
--- NOTE | 2023-03-02 10:50 | Discharge Summary ---
Discharge Summary Date of Service March 02, 2023 Notes For Next Care Provider Finish out 12 more days of Augmentin for UTI and suspected bacteremia Follow up with Urology for possible treatment of right sided nephrolithiasis in case stone harboring Proteus/other bacteria Holding amlodipine for hypotension but can likely restart as outpatient in 2 days Finishing taper of stress dose steroids-considering tapering off prednisone permanently but will follow up with Rheum Admission HPI Per Admitting Provider This is a 68-year-old female with past medical history significant history of rheumatoid arthritis, recurrent UTIs, CKD, paroxysmal A-fib on anticoagulation with Eliquis, hypothyroidism, who presents to the emergency department with complaints of generalized weakness associated with lower abdominal discomfort. Patient reports that she felt weak during the course of the day and checked her blood pressure at home and found her systolic blood pressure was in the 70s. Patient also has been having complaints of intermittent urinary symptoms and has been passing foul-smelling urine over the past few days. Patient became concerned of the symptoms associate with generalized weakness and is presents to ED for further evaluation. Upon evaluation in ED patient found to have systolic blood pressure in the 70s and was given IV fluid bolus along with supplemental oxygen for hypoxia. Patient found to have elevated lactate level along with elevated white count and elevated procalcitonin . Given patient's sustained hypotension patient was started on Levophed for vasopressor support and is being admitted to ICU for further management of sepsis .l Principal Dx & Hospital Course #1 = Principal Diagnosis (1) Septic shock: presents with complaints of generalized weakness with abdominal pain and low blood pressure after having cloudy urine for 1 day Patient found to be in septic shock likely secondary to urinary source. Unfortunately 1st Ur cx with mixed flra from contaminated sample and repeat Ur cx here negative as she received antibiotics prior to collection of culture. Highly suspect bacteremia given significantly elevated procalcitonin consistent with Gram neg septicemia with shock, however blood cultures remained no growth (again, were drawn 3.5 hours after antibiotics given IV in ER) Initially started on IV pressor support with Levophed as systolic pressure was in 70s upon initial arrival Patient's white count was elevated at 28k along with elevated lactate level, both of which now have improved Was given IV fluid boluses and stress dose steroids with IV hydrocortisone Broad-spectrum antibiotic coverage with IV vancomycin and cefepime was given Blood pressures normalized Ur cx from 02/27 unfortunately with mixed emil and repeat urine culture 02/28-no growth BCxs no growth to date CT abd/pel without obstructing stone but does have right sided nephrolithiasis, biliary stent in place, no evidence of infection, LFTs normal, no abd pain CXR negative Has not had cystoscopy in over 5 years but has had numerous UTIs, follows with Urology -Follow blood cultures after discharge but suspect will remain normal given antibiotic use prior to being drawn - she has a h/o numerous E. coli and Proteus UTIs and also is MRSA positive on nasal swab-since cultures negative thus far, plan to discharge to home with Augmentin to finish out a 14-day course on discharge(Cipro would be ideal but interacts with amiodarone due to possibility of QT prolongation) -procal decreased with treatment, remains afebrile, doing well -f/u with Urology after discharge for possible stone management -finish out stress dose steroid taper after discharge (2) Acute UTI (urinary tract infection): as above Consult Urology regarding recurrent Proteus UTIs appreciated Should potentially have cystoscopy as outpt once infection clears given recurrent Proteus infections-May need nephrolithiasis treated as per urology (3) Type 2 diabetes mellitus: pharmacy consulted A1C only 6.4% but is also anemic which may affect this restart home insulin and Ozempic after discharge (4) Neck pain: suspect muscle spasm due to holding head to left for prolonged period of time for IJ placement +TTP over right paraspinous muscles pt requests hydrocodone prn-has not used no need for imaging at this time now resolved (5) Demand ischemia of myocardium: trop mildly elevated at initial ECG w/ artifact but no definite ischemic changes no chest pain repeat ECG normal (6) Hypothyroidism: Continue levothyroxine TSH 4.5 last month f/u as outpt (7) Paroxysmal atrial fibrillation: Patient is status post cardioversion x2 last admissions Remains in NSR here throughout entire hospitalization continue home amiodarone continue Eliquis Continue home metoprolol (8) (HFpEF) heart failure with preserved ejection fraction: was volume depleted from sepsis holding home lasix but can use prn at home (9) Anemia of chronic disease: Hemoglobin 9.5, normocytic, now down further to 8.4-likely hemodilutional. No evidence of bleeding from anywhere Has longstanding anemia of CKD and iron deficiency B12 and folate recently were normal -last transferrin saturation was 6% in 12/2022 and now slightly improved to 10% Follow CBC with Heme as planned as outpt, receives IV iron as outpt Would wait until antibiotics completed to give IV iron as outpt Needs GI follow-up if has not had EGD or colonoscopy in her anemia workup (10) History of biliary stent insertion: CBD stent in place, now s/p cholecystectomy 3 weeks ago Follow-up with GI for stent removal planned for next Friday (11) Chronic kidney disease, stage 3b: Creatinine baseline at 1.6, now down to 1.2 -Avoid nephrotoxins -renally dose meds when appropriate -follow BMP as outpt (12) Vitamin D deficiency: Holding home vitamin D but can restart on discharge (13) Rheumatoid arthritis: Giving stress dose steroids, on chronic prednisone--> take prednisone 20mg daily x 1 day, then 15mg daily x 1 day, then back to 10mg daily after discharge Follows with Dr. Ayala of rheumatology Takes gabapentin at bedtime for pain Patient would like to wean off prednisone-she will follow-up with Dr. Ayala for this (14) Hypertension: Recently started on amlodipine for hypertension-tends to have whitecoat hypertension Holding amlodipine for hypotension and can start this until as an outpatient in 2 days after discharge follow BPs at home Continue metoprolol Previously had side effects with diltiazem and was told not to take lisinopril due to her renal issues Plan DVT prophylaxis-Eliquis Disposition-dc to home Discharge Exam Constitutional WD/WN, vitals as above Neck trachea midline Respiratory normal respiratory effort, lungs clear to auscultation Cardiovascular Rate/Rhythm: regular rate and regular rhythm Heart Sounds: no murmur Extremities: + edema (trace pitting edema legs bilat) Gastrointestinal (Abdomen) normal bowel sounds, soft, nontender, no hepatosplenomegaly Musculoskeletal Extremities: extremities normal to inspection; no cyanosis and no clubbing Skin no rashes, warm and dry Neurologic moves all extremities and awake; no focal motor deficits Psychiatric A+Ox3, euthymic affect Updated Medication List Medication Instructions Recorded Confirmed Type cholecalciferol (vitamin D3) 25 1,000 unit PO QAM 10/26/18 02/27/23 History mcg (1,000 unit) capsule (Vitamin D3) magnesium 250 mg tablet 250 mg PO HS 10/26/18 02/27/23 History acetaminophen 500 mg tablet 1,000 mg PO Q6H PRN Pain 12/24/18 02/27/23 History (Tylenol Extra Strength) cyclobenzaprine 10 mg tablet 10 mg PO HS 04/21/21 02/27/23 History levothyroxine 100 mcg tablet 100 mcg PO QAM #90 tabs 09/16/22 02/27/23 Rx apixaban 5 mg tablet (Eliquis) 5 mg PO BID #180 tabs 12/02/22 02/27/23 Rx L.acidop,casei,lactis,rham-B.lact,reyes 1 cap PO HS 12/12/22 02/27/23 History 625 mg (10 billion cell) capsule (Advanced Probiotic) gabapentin 100 mg capsule 100 - 300 mg PO HS 12/12/22 02/27/23 History omeprazole 40 mg capsule,delayed 40 mg PO QAM 12/12/22 02/27/23 History release furosemide 20 mg tablet (Lasix) 20 mg PO DAILY PRN edema of legs 12/13/22 02/27/23 Rx #30 tabs alirocumab 75 mg/mL subcutaneous 75 mg subcut Q14D #2 mL 12/23/22 02/27/23 Rx pen injector (Praluent Pen) pen needle, diabetic 31 gauge x #100 ea 01/07/23 02/27/23 Rx 1/4" metoprolol succinate 100 mg 100 mg PO BID #180 tabs 01/13/23 02/27/23 Rx tablet,extended release 24 hr amiodarone 200 mg tablet 200 mg PO HS 01/19/23 02/27/23 History amlodipine 5 mg tablet 5 mg PO QAM 02/27/23 02/27/23 History insulin glargine 100 unit/mL (3 5 unit subcut HS 02/27/23 02/27/23 History mL) subcutaneous pen (Lantus Solostar U-100 Insulin) semaglutide 0.25 mg or 0.5 mg (2 0.5 mg subcut Q7D 02/27/23 02/27/23 History mg/1.5 mL) subcutaneous pen injector (Ozempic) amoxicillin 875 mg-potassium 1 tab PO BID #24 tabs 03/02/23 Rx clavulanate 125 mg tablet prednisone 10 mg tablet 10 mg PO DAILY 03/02/23 03/02/23 History Hospital Stay Data Consultations 02/27/23 23:37 ED Decision to Admit Stat 02/28/23 01:28 Consult [employer] Routine 02/28/23 17:21 Consult Urology Routine Procedures Performed Right IJ central venous catheter insertion and removal Diagnostic Imagining Performed 02/27/23 19:55 CT Abd and Pelvis [CT abd pelvis wo con] Stat Pending Results Patient Have Any Pending Studies at Discharge: Yes (Final blood culture result- no growth to date) Discharge Instructions Given to Patient (Per Discharging Provider) Please finish out 12 more days of the antibiotic called Augmentin twice a day for your urinary and suspected blood stream infection. You will need to take extra prednisone for a few more days as we discussed. This will be prednisone 20mg daily on 03/03, 15mg daily on 03/04, then back to our usual dose of prednisone 10mg daily after that starting 03/05. You remain anemic and should keep your follow up appointment with Hematology to see if you need more IV iron. It is best to wait on getting an IV iron infusion until your infection is completely treated with antibiotics. Your amlodipine was HELD here for low blood pressures, but can be restarted at home in 2 days if your blood pressure is over 140/90. Please discuss this with Dr. Arzola. Total Time Total Time Spent Total Time Spent (In Minutes): 45 min Coding Level of Care Code 57699 INP/OBS DISCH >30 MIN Diagnoses Septic shock A41.9; R65.21 Acute UTI (urinary tract infection) N39.0 Type 2 diabetes mellitus E11.9 Neck pain M54.2 Demand ischemia of myocardium I24.8 Hypothyroidism E03.9 Hypothyroidism type: unspecified Paroxysmal atrial fibrillation I48.0 (HFpEF) heart failure with preserved ejection fraction I50.30 Anemia of chronic disease D63.8 History of biliary stent insertion Z98.890 Chronic kidney disease, stage 3b N18.32 Vitamin D deficiency E55.9 Rheumatoid arthritis M06.9 Rheumatoid arthritis location: multiple sites Rheumatoid factor presence: unspecified presence Hypertension I10 Hypertension type: essential hypertension
== END 2023-03-02 11:48 | disposition home or self-care (01) | DRG 871 ==
LOC: ED 19:39 → SUATTDRO 02-28 01:28 → 1E 02-28 01:28

== ENCOUNTER 2024-01-30 06:05 | Inpatient (IN) ==
--- NOTE | 2024-01-14 10:54 | Anesthesiology Consultation ---
Date of Service January 14, 2024 Assessment & Plan (1) Encounter for pre-operative examination: Chart Review Chart Review: Acceptable Risk for Surgery and Patient NOT seen in Pre Admission Testing Consults Requested none History Surgery Operation Date: 01/30/24 12:35 Proposed Procedures p L5-S1 Decompression and Fusion, Hardware Removal L3-L5, Spinal Cord Monitoring - Raymond Clark DO Height/Weight Height: 5 ft 6 in Weight: 77.111 kg Allergies Allergy/AdvReac Type Severity Reaction Status Date / Time tetracycline Allergy Severe Facial rash Verified 01/14/24 09:15 methenamine Allergy Intermediate Swelling Verified 01/14/24 09:15 of Lip/Tongue/Throat Hsofrzm-YSV-WwO Reductase AdvReac Intermediate LE edema Verified 01/14/24 09:15 Inhibitor [Iugdgag-Lor-Bpv Reductase Inhibitor] morphine AdvReac Mild Nausea Verified 01/14/24 09:15 oxycodone AdvReac Mild Drowsy Verified 01/14/24 09:15 Medications Home Medications Medication Instructions Recorded Confirmed Last Taken cholecalciferol (vitamin D3) 25 1,000 unit PO QAM 10/26/18 01/14/24 03/26/23 08:00 mcg (1,000 unit) capsule (Vitamin D3) magnesium 250 mg tablet 250 mg PO HS 10/26/18 01/14/24 03/26/23 19:00 acetaminophen 500 mg tablet 1,000 mg PO Q6H PRN Pain 12/24/18 01/14/24 03/25/23 (Tylenol Extra Strength) L.acidop,casei,lactis,rham-B.lact,reyes 1 cap PO HS 12/12/22 01/14/24 03/26/23 19:00 625 mg (10 billion cell) capsule (Advanced Probiotic) omeprazole 40 mg capsule,delayed 40 mg PO QAM 12/12/22 01/14/24 03/27/23 06:30 release furosemide 20 mg tablet (Lasix) 20 mg PO DAILY PRN edema of legs 12/13/22 01/14/24 Unknown #30 tabs metoprolol succinate 100 mg 100 mg PO BID #180 tabs 01/13/23 01/14/24 03/27/23 06:30 tablet,extended release 24 hr amlodipine 5 mg tablet 5 mg PO QAM 02/27/23 01/14/24 03/27/23 06:30 cyclobenzaprine 10 mg tablet 10 mg PO HS PRN muscle spasm #30 03/02/23 01/14/24 03/26/23 19:00 tabs prednisone 10 mg tablet 10 mg PO QAM 03/02/23 01/14/24 03/27/23 06:30 OneTouch Delica Plus Lancet 33 #100 ea 05/21/23 11/24/23 Unknown gauge (lancets) OneTouch Verio Reflect Meter #1 ea 05/21/23 11/24/23 Unknown (blood-glucose meter) OneTouch Verio test strips (blood #100 ea 05/21/23 11/24/23 Unknown sugar diagnostic) pen needle, diabetic 31 gauge x #100 ea 09/18/23 11/24/23 Unknown 10/16" amiodarone 200 mg tablet 200 mg PO HS #90 tabs 09/21/23 01/14/24 Unknown apixaban 5 mg tablet (Eliquis) 5 mg PO BID #180 tabs 09/21/23 01/14/24 Unknown levothyroxine 100 mcg tablet 125 mcg PO QAM 11/03/23 01/14/24 Unknown evolocumab 420 mg/3.5 mL 420 mg (3.5 mL) subcut .once 11/04/23 01/14/24 Unknown subcutaneous wearable injector monthly #10.5 mL (Repatha Pushtronex) insulin glargine 100 unit/mL (3 5 unit (0.05 mL) subcut HS #15 mL 11/05/23 01/14/24 Unknown mL) subcutaneous pen (Lantus Solostar U-100 Insulin) gabapentin 300 mg capsule 600 mg PO HS 01/14/24 01/14/24 Unknown semaglutide 0.25 mg or 0.5 mg (2 0.25 mg subcut Q7D 01/14/24 01/14/24 01/12/24 mg/3 mL) subcutaneous pen injector (Ozempic) sulfamethoxazole 800 1 tab PO QAM preventative 01/14/24 01/14/24 Unknown mg-trimethoprim 160 mg tablet (Bactrim DS) Past Medical History Medical History Chronic steroid use On anticoagulant therapy History of cardioversion 12/13/22 and 12/31/22 ([facility]) History of stroke Vertebrobasilar artery brainstem stroke 2020, slight residual right sided weakness Given TPA on 04/21/2021 with resolution of symptoms Paroxysmal atrial fibrillation x2 cardioversion 12/2022 History of recent blood transfusion 09/18/22 @ [facility] History of COVID-19 2020- hospitalized at [facility] for 9 days, no issues now Chronic kidney disease, stage 3b Anemia of chronic disease Hx iron infusions (most recent 01/31/23, [facility]) (HFpEF) heart failure with preserved ejection fraction EF 60-65%, type 2 diastolic dysfunction on 12/2022 echo GERD (gastroesophageal reflux disease) Anxiety Stenosis of left internal carotid artery 50-69% stenosis of left ICA per 04/2021 neck CTA Stenosis of left vertebral artery Approximately 90% stenosis within V4 segment of left vertebral artery per 04/21/2021 neck CTA Immunosuppression due to drug therapy *Prednisone daily* History of MRSA infection lumbar surgical incision s/p vanco/ceftriaxone/bactrim per 04/2019 [facility] discharge summary 2022 - positive nasal swab Lumbar radiculopathy Recurrent UTI Spinal stenosis Neuropathy Diabetes mellitus type II, controlled Hyperlipidemia Hypothyroidism Hypertension Rheumatoid arthritis Past Family History Family History Father Diabetes Lung cancer Cancer Hypertension Mother Malignant neoplasm of brain Diabetes Brain tumor Cancer Hypertension Aunt Breast cancer Sister Hypertension Other No family history of adverse response to anesthesia Denies family history of Ovarian cancer Prostate cancer Myocardial infarction Colorectal cancer Past Surgical History Surgical History History of lithotripsy 03/2023 at [facility] --> right kidney stone History of esophagogastroduodenoscopy (EGD) Hx of colonoscopy Hx laparoscopic cholecystectomy (02/12/23) Robotic Assisted Laparoscopic Cholecystectomy (Not Applicable) - Otto Fish DO History of ERCP w/stent placement; s/p stent removal also History of lumbar surgery Lumbar Spine Wound Revision 2019 Status post laminectomy with spinal fusion L2-L5 laminectomy/fusion (12/24/18): Grade view 1, MAC#3, ETT 7.0 Hx of tonsillectomy History of x2 History of total left knee replacement History of hysterectomy total Social History Smoking Status: Never smoker Do You Dip or Chew Tobacco: No Hx Alcohol Use: Yes Alcohol type: wine alcohol intake frequency: holidays/special occasions only Hx Substance Use: No substance use type: does not use Testing Electrocardiogram Date: 01/13/24 Findings: + NSR @ lateral/inferior infarct, age indeterminate Echocardiogram Date: 12/26/22 EF: 60-65
[~2024-01-30 06:05] MED LIST changes: -CEFAZOLIN 2000MG 2,000 MG/15 ML SYR IV SCH; +CeleBREX 200 MG CAP PO SCH; -LR 15ML/HR IV SCH; -SODIUM CHLORIDE 0.9% 1000ML IV SCH
[2024-01-30] MEDS: ACETAMINOPHEN 500 MG TAB PO SCH (07:04)
[2024-01-30] MEDS: GABAPENTIN 600 MG DOSE PO SCH (07:05)
[2024-01-30] MEDS: LR 60ML/HR IV SCH (07:05)
[2024-01-30] MEDS: SODIUM CHLORIDE 0.9% 1,000 ML IV SCH ×2 (07:05→13:33)
[2024-01-30] MEDS ORDERED: fentaNYL citrate PF 100 MCG/2 ML VIAL ONE (07:08)
[2024-01-30] MEDS ORDERED: MIDAZOLAM HCL 1 MG/ML 2ML VIAL ONE (07:08)
[2024-01-30] MEDS ORDERED: ONDANSETRON INJ 2 MG/ML 2 ML VIAL ONE (07:10)
[2024-01-30] MEDS ORDERED: LIDOCAINE 2% 2 ML VIAL/AMP(20MG/ML) INFIL ONE (07:10)
[2024-01-30] MEDS ORDERED: PROPOFOL IV EMULSION 10 MG/ML 20 ML VIAL IV ONE (07:10)
[2024-01-30] MEDS ORDERED: ROCURONIUM BROMIDE 10 MG/ML 5 ML VIAL IV ONE ×2 (07:10→08:41)
[2024-01-30] MEDS ORDERED: DEXAMETHASONE SOD INJ 4 MG/ML VIAL ONE ×3 (07:13→09:24)
[2024-01-30] MEDS ORDERED: HYDROmorphone INJ 1 MG/ML SYRINGE IV PRN ×2 (07:29→12:02)
[2024-01-30] MEDS ORDERED: ATROPINE SULFATE 0.1 MG/ML 10ML SYR IV PRN (07:29)
[2024-01-30] MEDS ORDERED: FLUMAZENIL 0.1 MG/1 ML 10 ML VIAL IV PRN (07:29)
[2024-01-30] MEDS ORDERED: ONDANSETRON INJ 2 MG/ML 2 ML VIAL IV PRN ×2 (07:29→12:02)
[2024-01-30] MEDS ORDERED: ePHEDrine sulfate 50 MG/ML AMP IV PRN (07:29)
[2024-01-30] MEDS ORDERED: PROMETHAZINE HCL 6.25 MG in SODIUM CHLORIDE 0.9% 50 ML IV PRN (07:29)
[2024-01-30] MEDS ORDERED: NALOXONE HCL 0.4 MG/1 ML VIAL/CARP IV PRN ×2 (07:29→12:02)
[2024-01-30] MEDS ORDERED: ALBUMIN HUMAN 5% 12.5 GM/250 ML VIAL IV ONE (07:49)
--- NOTE | 2024-01-30 08:15 | History & Physical Bridge Note ---
Date of Service January 30, 2024 History & Physical Bridge Note I have examined the patient, reviewed the History & Physical and in the interval since the performance of the History & Physical I have noted the following changes of clinical significance: no changes noted
--- NOTE | 2024-01-30 08:16 | History & Physical Report ---
Date of Service January 30, 2024 Assessment & Plan (1) Neurogenic claudication due to lumbar spinal stenosis: Plan: Lumbar decompression and fusion L5-S1, right hardware removal L3-L5 History of Present Illness Chief Complaint: Back and leg pain Primary Care Provider: Vladislav Brice MD This is a 69-year-old female who presents with chronic persistent back and leg pain after failing course of nonoperative care is here for surgical invention Allergies Allergy/AdvReac Type Severity Reaction Status Date / Time tetracycline Allergy Severe Facial rash Verified 01/30/24 06:32 methenamine Allergy Intermediate Swelling Verified 01/30/24 06:32 of Lip/Tongue/Throat Eurjaxe-ZSM-EvI Reductase AdvReac Intermediate LE edema Verified 01/30/24 06:32 Inhibitor [Ydcwvii-Hck-Bwb Reductase Inhibitor] morphine AdvReac Mild Nausea Verified 01/30/24 06:32 oxycodone AdvReac Mild Drowsy Verified 01/30/24 06:32 Home Medications Medication Instructions Recorded Confirmed Type cholecalciferol (vitamin D3) 25 1,000 unit PO QAM 10/26/18 01/30/24 History mcg (1,000 unit) capsule (Vitamin D3) magnesium 250 mg tablet 250 mg PO HS 10/26/18 01/30/24 History acetaminophen 500 mg tablet 1,000 mg PO Q6H PRN Pain 12/24/18 01/14/24 History (Tylenol Extra Strength) L.acidop,casei,lactis,rham-B.lact,reyes 1 cap PO HS 12/12/22 01/30/24 History 625 mg (10 billion cell) capsule (Advanced Probiotic) omeprazole 40 mg capsule,delayed 40 mg PO QAM 12/12/22 01/30/24 History release furosemide 20 mg tablet (Lasix) 20 mg PO DAILY PRN edema of legs 12/13/22 01/14/24 Rx #30 tabs metoprolol succinate 100 mg 100 mg PO BID #180 tabs 01/13/23 01/30/24 Rx tablet,extended release 24 hr amlodipine 5 mg tablet 5 mg PO QAM 02/27/23 01/30/24 History cyclobenzaprine 10 mg tablet 10 mg PO HS PRN muscle spasm #30 03/02/23 01/30/24 Rx tabs prednisone 10 mg tablet 10 mg PO QAM 03/02/23 01/30/24 History OneTouch Delica Plus Lancet 33 #100 ea 05/21/23 11/24/23 Rx gauge (lancets) OneTouch Verio Reflect Meter #1 ea 05/21/23 11/24/23 Rx (blood-glucose meter) OneTouch Verio test strips (blood #100 ea 05/21/23 11/24/23 Rx sugar diagnostic) pen needle, diabetic 31 gauge x #100 ea 09/18/23 11/24/23 Rx 10/16" amiodarone 200 mg tablet 200 mg PO HS #90 tabs 09/21/23 01/30/24 Rx apixaban 5 mg tablet (Eliquis) 5 mg PO BID #180 tabs 09/21/23 01/30/24 Rx levothyroxine 100 mcg tablet 125 mcg PO QAM 11/03/23 01/30/24 History evolocumab 420 mg/3.5 mL 420 mg (3.5 mL) subcut .once 11/04/23 01/30/24 Rx subcutaneous wearable injector monthly #10.5 mL (Repatha Pushtronex) insulin glargine 100 unit/mL (3 5 unit (0.05 mL) subcut HS #15 mL 11/05/23 01/30/24 Rx mL) subcutaneous pen (Lantus Solostar U-100 Insulin) gabapentin 300 mg capsule 600 mg PO HS 01/14/24 01/30/24 History semaglutide 0.25 mg or 0.5 mg (2 0.25 mg subcut Q7D 01/14/24 01/14/24 History mg/3 mL) subcutaneous pen injector (Ozempic) sulfamethoxazole 800 1 tab PO QAM preventative 01/14/24 01/30/24 History mg-trimethoprim 160 mg tablet (Bactrim DS) Past Med/Surg History Medical History Chronic steroid use On anticoagulant therapy History of cardioversion 12/13/22 and 12/31/22 ([facility]) History of stroke Vertebrobasilar artery brainstem stroke 2020, slight residual right sided weakness Given TPA on 04/21/2021 with resolution of symptoms Paroxysmal atrial fibrillation x2 cardioversion 12/2022 History of recent blood transfusion 09/18/[address] [facility] History of COVID-19 2020- hospitalized at [facility] for 9 days, no issues now Chronic kidney disease, stage 3b Anemia of chronic disease Hx iron infusions (most recent 01/31/23, [facility]) (HFpEF) heart failure with preserved ejection fraction EF 60-65%, type 2 diastolic dysfunction on 12/2022 echo GERD (gastroesophageal reflux disease) Anxiety Stenosis of left internal carotid artery 50-69% stenosis of left ICA per 04/2021 neck CTA Stenosis of left vertebral artery Approximately 90% stenosis within V4 segment of left vertebral artery per 04/21/2021 neck CTA Immunosuppression due to drug therapy *Prednisone daily* History of MRSA infection lumbar surgical incision s/p vanco/ceftriaxone/bactrim per 04/2019 [facility] discharge summary 2022 - positive nasal swab Lumbar radiculopathy Recurrent UTI Spinal stenosis Neuropathy Diabetes mellitus type II, controlled Hyperlipidemia Hypothyroidism Hypertension Rheumatoid arthritis Surgical History History of lithotripsy 03/[address] [facility] --> right kidney stone History of esophagogastroduodenoscopy (EGD) Hx of colonoscopy Hx laparoscopic cholecystectomy (02/12/23) Robotic Assisted Laparoscopic Cholecystectomy (Not Applicable) - Otto Fish DO History of ERCP w/stent placement; s/p stent removal also History of lumbar surgery Lumbar Spine Wound Revision 2019 Status post laminectomy with spinal fusion L2-L5 laminectomy/fusion (12/24/18): Grade view 1, MAC#3, ETT 7.0 Hx of tonsillectomy History of x2 History of total left knee replacement History of hysterectomy total Family History Father Diabetes Lung cancer Cancer Hypertension Mother Malignant neoplasm of brain Diabetes Brain tumor Cancer Hypertension Aunt Breast cancer Sister Hypertension Other No family history of adverse response to anesthesia Denies family history of Ovarian cancer Prostate cancer Myocardial infarction Colorectal cancer Social History Smoking Status: Never smoker Second Hand Exposure: Yes (hx); Do You Dip or Chew Tobacco: No; Tobacco Cessation Education Requested by Patient: No Hx Alcohol Use: Yes Alcohol type: wine Alcohol Intake Frequency: 2-4 x/Month Hx Substance Use: No Preferred Language: Angolan Communication Ability: Effective Visual Impairment: No Limitations Hearing Ability: Normal Decision Analyst Required: No Beliefs That Will Affect Care: None marital status: Current Living Situation: Spouse Current Living Situation Comment: 1 level home current occupational status: retired How many Children do You have: 2 Other Information That Helps Us Care for You: No 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 Feels Safe at Home: Yes Safety Concerns: Feels Safe At This Time Childhood Exposure to Second-Hand Smoke: Yes Diet: gluten free caffeine: Yes Dental Care, Regularly: Yes Physical Activity Frequency: 5-6 Times per Week Physical Activity Frequency Comment: gym Seatbelt Use: always Sunscreen Use: Yes Do you think of yourself as: straight/heterosexual Assistive Devices: Glasses Physical Exam Physical Exam: Patient is alert and oriented Heart regular rhythm Lungs clear Results & Data Results & Data Vital Signs (Past 12 Hours) Vital Signs Temp Pulse Resp BP Pulse Ox O2 Del Method 01/30/24 06:40 36.8 C 67 18 164/76 H 97 Room Air
[2024-01-30] MEDS: ceFAZolin 2000MG 2,000 MG/15 ML SYR IV SCH ×2 (08:17→16:08)
[2024-01-30] MEDS ORDERED: ePHEDrine sulfate 50 MG/ML AMP ONE (08:30)
[2024-01-30] MEDS ORDERED: PHENYLEPHRINE 100MCG/ML 10ML SYR IV ONE (08:34)
[2024-01-30] MEDS: BUPIVACAINE/EPINEPHRINE 0.25% 1:200,000 30 ML VIAL ONE ×2 (08:44→09:16)
[2024-01-30] MEDS ORDERED: PHENYLEPHRINE HCL 10 MG/ML VIAL ONE (09:05)
[2024-01-30] MEDS: ceFAZolin 330 MG/ML 1 GM VIAL ONE (09:20)
[2024-01-30] MEDS ORDERED: GLYCOPYRROLATE 0.2 MG/ML VIAL ONE (10:34)
[2024-01-30] MEDS ORDERED: NEOSTIGMINE METHYLSULFATE 1 MG/ML 10ML VIAL ONE (10:34)
--- NOTE | 2024-01-30 10:40 | Operative Report ---
Post Operative Report Pre & Post Diagnosis Operation Date: 01/30/24 07:45 <No data on this case meets the specified criteria> Pre-Op diagnosis #1 lumbar spinal stenosis with radiculopathy. #2 spondylolisthesis L5-S1. Postop diagnosis Same I identified the patient and participated in the time-out.: Yes Procedure Operation Date: 01/30/24 07:45 #1 removal of posterior instrumentation L3-L5. #2 exploration of fusion L3-L5. #3 revision decompression with bilateral medial facetectomies and foraminotomies L5-S1. #4 posterior spinal fusion L5-S1. #5 placement posterior instrumentation L3-S1. #6 interbody fusion L5-S1. #7 patient was Spira 9 x 22 mm cage x 2 at L5-S1. #8 placement locally harvested morselized autograft in the posterior gutters. 9. Placement of infuse collagen sponge, with Koros in the posterior lateral gutters and Morpheus bone graft in the interbody space. Surgeon Raymond Clark, DO Section Maintainer Reji Wing Estimated Blood Loss 100 Findings Consistent with Post-Op Diagnosis Specimens None Indications This is a 69-year-old female presents above-mentioned diagnosis after failing course of nonoperative care she is here for surgical invention. Description of Procedure Patient was met with identified informed consent obtained. Patient was then taken to the operative suite underwent a patient placed in a prone position on the Amarjit table on top of the Kenny frame. All bony prominences well-padded eyes inspected to ensure no external pressure placed upon them. This point the lumbar spine was prepped and draped in normal sterile fashion. Sharp dissection with the assistance of Bovie cautery performed down to and exposing the instrumentation at L3-4 and 5 bilaterally including the remaining lamina facets and sacral ala bilaterally. Then proceeded move the hardware bilaterally explored the fusion mass noting it to be mature and intact. Then performed a revision decompression L5-S1 which included complete bilateral facetectomies and foraminotomies to address severe bilateral foraminal stenosis. Pedicle screws then placed at L3 L5 and S1 levels bilaterally with assistance of fluoroscopy in the pelvis as bianca contoured and placed. By way of transforaminal approach on the right a discectomy of L5-S1 was performed endplates guided to subcortical mean bone and a 9 x 22 mm Spira cage filled with Morpheus bone graft tapped in position. Then proceeded to the left transforaminal region performed discectomy of L5-S1. The endplates to subcortical bleeding bone and placed a second 9 x 22 mm Spira cage filled with Morpheus bone graft into position. The rods were then locked in final position bilaterally. The transverse processes of L5 and the sacral ala burred to subcortical bleeding bone. Infuse collagen sponge combined with Koros bone graft and locally harvested morselized graft placed in the posterior gutters. 15 round BENOIT drain inserted. The incision was then closed with 1 Vicryl the fascia 2-0 Vicryl subcutaneously and 4 Monocryl for final skin closure. Steri-Strips sterile dressing placed. Patient waken taken PACU stable condition. Please note spinal cord monitoring was utilized at the procedure no changes noted. Lastly Reji Wing was present at the entire surgery and while the patient positioning complex portions of the surgery and final skin closure. I attest to the content of the Intraoperative Record and any orders documented therein. Any exceptions are noted below.
--- NOTE | 2024-01-30 11:00 | Fluoroscopy Report ---
FL lumbar spine 2-3V CLINICAL HISTORY: L5-S1 DECOMPRESSION/FUSION COMPARISON STUDY: None FLUOROSCOPY TIME: 20 seconds FLUOROSCOPY IMAGES: T2 EXPOSURE DOSE: 18.86 mGy FINDINGS: Posterior interbody bianca and screw fusion at L3-S1 with L5-S1 discectomy. The hardware appea rs intact. No acute fracture or unexpected opaque foreign body identified by fluoroscopy. Note that t he images were submitted following completion of the surgery. IMPRESSION: Fluoroscopic assistance as above. ACT 112: Negative or not required by law. Electronically signed by: Darwin Cohen M.D. 01/30/2024 10:58 AM
[2024-01-30] MEDS: fentaNYL citrate PF 100 MCG/2 ML VIAL IV PRN (11:27)
--- NOTE | 2024-01-30 11:46 | Anesthesiology Progress Note ---
Date of Service January 30, 2024 Anesthesia Post Procedure Vital Signs Vital Signs: Temp Pulse Resp BP Pulse Ox O2 Del Method O2 Flow Rate 01/30/24 11:40 36.5 C 67 13 115/64 93 Nasal Cannula 2 01/30/24 11:30 68 15 110/57 L 95 Nasal Cannula 2 01/30/24 11:20 67 20 116/59 L 96 Oxymask 5 01/30/24 11:10 77 13 110/54 L 96 Oxymask 11 01/30/24 11:03 36.6 C 68 16 110/55 L 98 Oxymask 11 01/30/24 06:40 36.8 C 67 18 164/76 H 97 Room Air Pain Intensity Lower Back: Pain Intensity: 7 Back: Pain Intensity: 2 Transfer of Care Handoff Completed per policy Notes Mental Status: alert / awake / arousable Patient Amnestic to Procedure: Yes Nausea / Vomiting: adequately controlled Pain: adequately controlled Airway Patency, RR, SpO2: stable & adequate BP & HR: stable & adequate Hydration State: stable & adequate Anesthetic Complications: no major complications apparent
[2024-01-30] MEDS: FLOSEAL HEMOSTATIC MATRIX 10ML TOP ONE (11:51)
[2024-01-30] MEDS ORDERED: DO NOT ADMINISTER FLU VACCINE PRN (12:02)
[2024-01-30] MEDS ORDERED: FAMOTIDINE 20 MG TAB PO PRN (12:02)
[2024-01-30] MEDS ORDERED: MAGNESIUM HYDROXIDE SUSP 30 ML UDC PO PRN (12:02)
[2024-01-30] MEDS ORDERED: ALUMINUM/MAGNESIUM SUSP 30 ML UDC PO PRN (12:02)
[2024-01-30] MEDS ORDERED: ACETAMINOPHEN 500 MG TAB PO PRN (12:02)
[2024-01-30] MEDS ORDERED: PROMETHAZINE HCL 12.5 MG in SODIUM CHLORIDE 0.9% 50 ML IV PRN (12:02)
[2024-01-30] MEDS ORDERED: hydrOXYzine HCl 25 MG TAB PO PRN (12:02)
[2024-01-30] MEDS ORDERED: HYDROmorphone INJ 0.5 MG/0.5 ML SYR IV PRN (12:02)
[2024-01-30] MEDS ORDERED: DO NOT ADMINISTER PNEUMOCOCCAL VACCINE PRN (12:02)
[2024-01-30] MEDS ORDERED: ACETAMINOPHEN 1,000 MG/100 ML VIAL IV PRN (12:02)
[2024-01-30] MEDS ORDERED: traMADol HCL 50 MG TABLET PO PRN (12:02)
[2024-01-30] MEDS ORDERED: LORazepam 0.5 MG TAB PO PRN (12:02)
[2024-01-30] MEDS ORDERED: PHARMACY GLYCEMIC MGMT CONSULT PRN (12:02)
[2024-01-30] MEDS ORDERED: LORazepam 0.5 MG in SYRINGE 0.25 ML IV PRN (12:02)
[2024-01-30] MEDS ORDERED: METOCLOPRAMIDE HCL INJ 5 MG/ML 2 ML VIAL IV PRN (12:02)
[2024-01-30] MEDS ORDERED: SOD PHOSPHATE/SOD BIPHOSPHATE ENEMA 132 ML BTL PR PRN (12:02)
[2024-01-30] MEDS ORDERED: ONDANSETRON 4 MG OD TAB PO PRN (12:02)
[2024-01-30] MEDS ORDERED: diphenhydrAMINE Capsule 25 MG CAP PO PRN (12:02)
[2024-01-30] MEDS ORDERED: bisacodyL 10 MG SUPP PR PRN (12:02)
--- NOTE | 2024-01-30 12:36 | Consultation ---
Date of Consultation January 30, 2024 Assessment & Plan (1) S/P spinal surgery: (2) Spinal stenosis of lumbar region with radiculopathy: Post op day# 0 S/P Removal posterior instrumentation L3-L4, revision decompression and fusion L5-S1, placement instrumentation L3-S1 by Dr Amber SAINZ#100ml Pain management per ortho Wound management per ortho PT/OT as appropriate DVT prophylaxis per ortho Incentive spirometry Monitor H&H for acute blood loss anemia, pre-op Hgb: 10 (3) Type 2 diabetes mellitus with insulin therapy: Insulin dependent A1c: 5.6 on 11/21/23 Hold home Ozempic Plan to continue basal insulin Glycemic pharmacy on board and is managing. Appreciate glycemic management (4) Paroxysmal atrial fibrillation: S/P cardioversion x 2 Anticoagulated on Eliquis Last dose Eliquis on 01/25/2023 Appears to be current sinus rhythm per auscultation Resume Eliquis when able per ortho spine Continue amiodarone, metoprolol succinate Follows with cardiology, Dr. Pedraza (5) Chronic kidney disease, stage 3b: Baseline creatinine: 1.6-1.7 Monitor renal functions, recommend to avoid NSAIDs and other nephrotoxic agent when possible (6) (HFpEF) heart failure with preserved ejection fraction: Appears euvolemic Uses Lasix on as needed basis. Has not used for months Monitor volume status (7) Hypertension: Stable Continue metoprolol succinate, amiodarone (8) Hyperlipidemia: On Repatha (9) Rheumatoid arthritis: On chronic prednisone Last dose prednisone/ Received dexamethasone 12 mg today Is scheduled to receive dexamethasone 6 mg daily for the next 3 days Plan to resume home prednisone 5 mg daily on 02/03/24 Follows with rheumatology, Dr. Padron (10) Hypothyroidism: Continue levothyroxine (11) Anemia of chronic disease: Anemia of chronic disease and iron deficiency anemia Preop hemoglobin 10. Baseline 10-11 Follows with hematology Last received IV iron on 01/26/2024 Monitor H&H (12) Recurrent UTI: History recurrent UTI On chronic Bactrim Plan to continue Bactrim Follows with urology, Dr. Ramos DVT Prophylaxis SCDs Disposition per primary service Follows with Dr Brice for routine care Pt was seen and care coordinated with Dr Roberts. See addendum Thank you for this consultation. We will follow the patient with you during their hospital stay. You can reach a [facility]/05 via [facility] Supervising Physician Co-Signing Physician Notes I have seen and examined the patient and have discussed the case with the provider above. I have reviewed the advanced practitioner's documentation, and I agree with, and take responsibility for that plan of care. Pt is 69 yo diabetic female resting comfortably post op in her warm room. Zamorano in place, BENOIT drain in place with serosanguaneous fluid present as expected. Patient reports her pain is well controlled. Has some chronic neuropathy in her feet but nothing worse than her chronic numbness. SCDs are in place on the lower extremities. She ate post op without difficulty. Meds reviewed and agree with plan noted above. Labs reviewed and glucose remains well controlled at this point. DO Armando History of Present Illness Requesting Physician: Dr Clark Reason for Consultation: Post op medical management Attending Physician: Raymond Clark DO History of Present Illness Patient is 69 year old female with PMH DM II, atrial fibrillation s/p cardioversion, chronically anticoagulated on Eliquis, HFpEF, HTN, HLD, RA on chronic prednisone, CKD III, chronic anemia, hypothyroidism, recurrent UTI seen in medical consultation s/p Removal posterior instrumentation L3-L4, revision decompression and fusion L5-S1, placement instrumentation L3-S1 today by Dr Clark. Post op patient reports doing well and states pain is controlled. Denies any nausea or vomiting. Was able to eat lunch without difficulty. Reports last BM yesterday. Denies fever/chills, diaphoresis, N/V/D/C, RAMÍREZ, dizziness, syncope, vision changes, CP, SOB, orthopnea, palpitations, cough, rhinorrhea, abdominal pain, paresthesias, extremity weakness, extremity edema, rashes, urinary symptoms. Allergies Allergy/AdvReac Type Severity Reaction Status Date / Time tetracycline Allergy Severe Facial rash Verified 01/30/24 06:32 methenamine Allergy Intermediate Swelling Verified 01/30/24 06:32 of Lip/Tongue/Throat Bxfdpph-LVQ-VaM Reductase AdvReac Intermediate LE edema Verified 01/30/24 06:32 Inhibitor [Iznfgfa-Uww-Owk Reductase Inhibitor] morphine AdvReac Mild Nausea Verified 01/30/24 06:32 oxycodone AdvReac Mild Drowsy Verified 01/30/24 06:32 Home Medications Medication Instructions Recorded Confirmed Type cholecalciferol (vitamin D3) 25 1,000 unit PO QAM 10/26/18 01/30/24 History mcg (1,000 unit) capsule (Vitamin D3) magnesium 250 mg tablet 250 mg PO HS 10/26/18 01/30/24 History acetaminophen 500 mg tablet 1,000 mg PO Q6H PRN Pain 12/24/18 01/30/24 History (Tylenol Extra Strength) L.acidop,casei,lactis,rham-B.lact,reyes 1 cap PO HS 12/12/22 01/30/24 History 625 mg (10 billion cell) capsule (Advanced Probiotic) furosemide 20 mg tablet (Lasix) 20 mg PO DAILY PRN edema of legs 12/13/22 01/30/24 Rx #30 tabs metoprolol succinate 100 mg 100 mg PO BID #180 tabs 01/13/23 01/30/24 Rx tablet,extended release 24 hr cyclobenzaprine 10 mg tablet 10 mg PO HS PRN muscle spasm #30 03/02/23 01/30/24 Rx tabs OneTouch Delica Plus Lancet 33 #100 ea 05/21/23 01/30/24 Rx gauge (lancets) OneTouch Verio Reflect Meter #1 ea 05/21/23 01/30/24 Rx (blood-glucose meter) OneTouch Verio test strips (blood #100 ea 05/21/23 01/30/24 Rx sugar diagnostic) pen needle, diabetic 31 gauge x #100 ea 09/18/23 01/30/24 Rx 1/4" amiodarone 200 mg tablet 200 mg PO HS #90 tabs 09/21/23 01/30/24 Rx apixaban 5 mg tablet (Eliquis) 5 mg PO BID #180 tabs 09/21/23 01/30/24 Rx evolocumab 420 mg/3.5 mL 420 mg (3.5 mL) subcut .once 11/04/23 01/30/24 Rx subcutaneous wearable injector monthly #10.5 mL (Repatha Pushtronex) insulin glargine 100 unit/mL (3 5 unit (0.05 mL) subcut HS #15 mL 11/05/23 01/30/24 Rx mL) subcutaneous pen (Lantus Solostar U-100 Insulin) gabapentin 300 mg capsule 600 mg PO HS 01/14/24 01/30/24 History semaglutide 0.25 mg or 0.5 mg (2 0.25 mg subcut Q7D 01/14/24 01/30/24 History mg/3 mL) subcutaneous pen injector (Ozempic) sulfamethoxazole 800 1 tab PO QAM preventative 01/14/24 01/30/24 History mg-trimethoprim 160 mg tablet (Bactrim DS) hydrocodone 5 mg-acetaminophen 325 1 tab PO Q6H PRN pain #30 tabs 01/30/24 Rx mg tablet levothyroxine 112 mcg tablet 112 mcg PO DAILY 01/30/24 01/30/24 History omeprazole 20 mg capsule,delayed 20 mg PO DAILY 01/30/24 01/30/24 History release prednisone 5 mg tablet 5 mg PO DAILY 01/30/24 01/30/24 History tramadol 50 mg tablet 50 mg PO Q6H PRN pain, moderate 01/30/24 Rx #30 tabs Patient History Medical History Chronic steroid use On anticoagulant therapy History of cardioversion 12/13/22 and 12/31/22 ([facility]) History of stroke Vertebrobasilar artery brainstem stroke 2020, slight residual right sided weakness Given TPA on 04/21/2021 with resolution of symptoms Paroxysmal atrial fibrillation x2 cardioversion 12/2022 History of recent blood transfusion 09/18/22 @ [facility] History of COVID-19 2020- hospitalized at [facility] for 9 days, no issues now Chronic kidney disease, stage 3b Anemia of chronic disease Hx iron infusions (most recent 01/31/23, [facility]) (HFpEF) heart failure with preserved ejection fraction EF 60-65%, type 2 diastolic dysfunction on 12/2022 echo GERD (gastroesophageal reflux disease) Anxiety Stenosis of left internal carotid artery 50-69% stenosis of left ICA per 04/2021 neck CTA Stenosis of left vertebral artery Approximately 90% stenosis within V4 segment of left vertebral artery per 04/21/2021 neck CTA Immunosuppression due to drug therapy *Prednisone daily* History of MRSA infection lumbar surgical incision s/p vanco/ceftriaxone/bactrim per 04/2019 [facility] discharge summary 2022 - positive nasal swab Lumbar radiculopathy Recurrent UTI Spinal stenosis Neuropathy Diabetes mellitus type II, controlled Hyperlipidemia Hypothyroidism Hypertension Rheumatoid arthritis Surgical History History of lithotripsy 03/2023 at [facility] --> right kidney stone History of esophagogastroduodenoscopy (EGD) Hx of colonoscopy Hx laparoscopic cholecystectomy (02/12/23) Robotic Assisted Laparoscopic Cholecystectomy (Not Applicable) - Otto Fish, DO History of ERCP w/stent placement; s/p stent removal also History of lumbar surgery Lumbar Spine Wound Revision 2019 Status post laminectomy with spinal fusion L2-L5 laminectomy/fusion (12/24/18): Grade view 1, MAC#3, ETT 7.0 Hx of tonsillectomy History of x2 History of total left knee replacement History of hysterectomy total Family History Father Diabetes Lung cancer Cancer Hypertension Mother Malignant neoplasm of brain Diabetes Brain tumor Cancer Hypertension Aunt Breast cancer Sister Hypertension Other No family history of adverse response to anesthesia Denies family history of Ovarian cancer Prostate cancer Myocardial infarction Colorectal cancer Social History Smoking Status: Never smoker Second Hand Exposure: Yes (hx); Do You Dip or Chew Tobacco: No; Tobacco Cessation Education Requested by Patient: No Hx Alcohol Use: Yes Alcohol type: wine Alcohol Intake Frequency: 2-4 x/Month Hx Substance Use: No Preferred Language: Slovenian Communication Ability: Effective Visual Impairment: No Limitations Hearing Ability: Normal Patent Law Specialist Required: No Beliefs That Will Affect Care: None marital status: Current Living Situation: Spouse Current Living Situation Comment: 1 level home current occupational status: retired How many Children do You have: 2 Other Information That Helps Us Care for You: 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 Feels Safe at Home: Yes Safety Concerns: Feels Safe At This Time Childhood Exposure to Second-Hand Smoke: Yes Diet: gluten free caffeine: Yes Dental Care, Regularly: Yes Physical Activity Frequency: 5-6 Times per Week Physical Activity Frequency Comment: gym Seatbelt Use: always Sunscreen Use: Yes Do you think of yourself as: straight/heterosexual Assistive Devices: Glasses Review of Systems Review of Systems: All systems reviewed & are unremarkable except as noted in HPI & below Physical Exam Physical Exam: General: no distress, WDWN Head: normocephalic, atraumatic Eyes: conjunctiva non-injected, anicteric ENT: normal inspection external ears, nose, mucous membranes moist Neck: supple, trachea midline Lungs: clear, no respiratory distress, no wheezing/rhonchi/rales CV: RRR, no murmur, no pretibial edema Abd: normal BS, soft, non-tender Back: surgical dressing in place, +BENOIT drain with serosanguineous drainage Ext: no cyanosis, no calf tenderness; bilateral pedal pushes and pulls intact, sensation to light touch intact Neuro: A&O x 3, no focal deficits noted, normal affect Skin: warm, dry Results & Data Vital Signs (Past 12 Hours) Vital Signs Temp Pulse Pulse Resp BP Pulse Ox O2 Del Method 01/30/24 12:02 36.3 C L 66 18 115/67 96 Nasal Cannula 01/30/24 11:40 36.5 C 67 13 115/64 93 Nasal Cannula 01/30/24 11:30 68 15 110/57 L 95 Nasal Cannula 01/30/24 11:20 67 20 116/59 L 96 Oxymask 01/30/24 11:10 77 13 110/54 L 96 Oxymask 01/30/24 11:03 36.6 C 68 16 110/55 L 98 Oxymask 01/30/24 06:40 36.8 C 67 18 164/76 H 97 Room Air O2 Flow Rate 01/30/24 12:02 2 01/30/24 11:40 2 01/30/24 11:30 2 01/30/24 11:20 5 01/30/24 11:10 11 01/30/24 11:03 11 01/30/24 06:40 (7) Hypertension Hypertension type: essential hypertension Qualified Code(s): I10 - Essential (primary) hypertension (8) Hyperlipidemia Hyperlipidemia type: pure hypercholesterolemia Qualified Code(s): E78.00 - Pure hypercholesterolemia, unspecified (9) Rheumatoid arthritis Rheumatoid arthritis location: multiple sites Rheumatoid factor presence: unspecified presence Qualified Code(s): M06.9 - Rheumatoid arthritis, unspecified (10) Hypothyroidism Hypothyroidism type: unspecified Qualified Code(s): E03.9 - Hypothyroidism, unspecified
[2024-01-30] MEDS: INSULIN ASPART PER UNIT CHARGE SC SCH (13:44)
[2024-01-30] MEDS: LANTUS PER UNIT CHARGE SC SCH ×2 (13:44→20:36)
[2024-01-30] MEDS ORDERED: GLUCOSE 10 TAB/TUBE PO PRN (14:00)
[2024-01-30] MEDS ORDERED: DEXTROSE 50% 50 ML SYRINGE IV PRN (14:00)
[2024-01-30] MEDS ORDERED: GLUCAGON FOR INJ 1 MG VIAL SQ PRN (14:00)
[2024-01-30] MEDS ORDERED: CARBOHYDRATES FOR HYPOGLYCEMIA PO PRN (14:00)
[2024-01-30] MEDS ORDERED: GLUCOSE 40% GEL 15 GM TUBE PO PRN (14:00)
--- NOTE | 2024-01-30 14:10 | Pharmacy Report ---
Pharmacy Glycemic Short Note 2 - Date of Service January 30, 2024 - Glycemic Short BSG Results (Last 24 hours): 01/30/24 01/30/24 01/30/24 06:37 11:06 12:20 POC Glucose 91 154 H 175 H OUTPATIENT ANTIDIABETIC REGIMEN: * Lantus 5 units SC HS * Ozempic 0.25 mg SC weekly- last dose on 01/19/24 ASSESSMENT: * 69 y/o F admitted for spinal surgery today. She has history of Type 2 diabetes and chronic kidney disease. * Patient took her home dose of Lantus 5 units last night which should be working for her today. * She received IV Dexamethasone 12 mg in OR today. This will cause BSG to trend up. So additional basal insulin 14 units (stress of 2) given with lunch today. Continue home basal dose of 5 units at HS. * Novolog stress of 3 parameters ordered with lunch. * IV Dex 6 mg to continue tomorrow for 3 days. Will re-assess basal dose tomorrow. PLAN FOR INPATIENT GLYCEMIC CONTROL: * Hold outpatient diabetes medications * Basal insulin * Lantus 14 units SC x 1 with lunch * Lantus 5 units SC HS * Bolus insulin * NovoLog per scale ACHS or Q6hrs while NPO * Goal Range: Low 110 mg/dL - High 140 mg/dL * Correction Factor: 20 mg/dL/unit * Nutritional / Prandial insulin per carb ratio of 1 unit per 8 grams CHO consumed
[2024-01-30] MEDS: HYDROCODONE/ACETAMOPHEN 5/325MG TAB PO PRN (17:48)
[2024-01-30] MEDS: ADVANCED PROBIOTIC 625 MG CAPSULE PO SCH (20:29)
[2024-01-30] MEDS: METOPROLOL SUCC 50MG EXT REL TAB PO SCH (20:29)
[2024-01-30] MEDS: MAGNESIUM OXIDE 400 MG TAB PO SCH (20:30)
[2024-01-30] MEDS: AMIODARONE 200 MG TAB PO SCH (20:30)
[2024-01-30] MEDS: DOCUSATE SODIUM/SENNA 50/8.6MG TAB PO SCH (20:30)
[2024-01-30] MEDS: GABAPENTIN 300 MG CAP PO SCH (20:30)
[2024-01-31] MEDS: LEVOTHYROXINE SODIUM 112 MCG TABLET PO SCH (05:34)
[2024-01-31] MEDS: POLYETHYLENE (MIRALAX) 17 GM PACK PO SCH (06:05)
[2024-01-31] MEDS ORDERED: LEVOTHYROXINE SODIUM 125 MCG TABLET PO SCH (06:30)
[2024-01-31 07:33] LABS: Basophils # (auto) 0.03 K/uL (0.00-0.20); Basophils % (auto) 0.2 %; Hematocrit (blood only) 28.8 % (37.0-47.0); Hemoglobin 8.8 g/dl (12.0-16.0); Immature Granulocytes # (auto) 0.19 K/uL (0.01-0.20); Lymphocytes # (auto) 0.68 K/uL (1.20-3.40); Lymphocytes % (auto) 3.5 %; Mean Corpuscular Hemoglobin 29.8 pg (25.0-34.0); Mean Corpuscular Hgb Conc 30.6 g/dL (32.0-36.0); Mean Corpuscular Volume 97.6 fL (80.0-100.0); Mean Platelet Volume 10.6 fL (9.4-12.4); Monocytes # (auto) 1.07 K/uL (0.11-0.59); Monocytes % (auto) 5.5 %; Neutrophils % (auto) 89.8 %; Platelet Count 206 K/uL (130-400); RDW Coefficient of Variation 15.7 % (11.5-14.5); RDW Standard Deviation 54.8 fL (36.4-46.3); Red Blood Count 2.95 M/uL (4.20-5.40); White Blood Count 19.57 K/ul (4.8-10.8)
[2024-01-31 07:52] LABS: BUN Creatinine Ratio 15.3 (10-20); Calcium 8.4 mg/dl (8.6-10.3); Creatinine Clr Calc Pharmacy 34.6 ml/min; Est GFR (African American) 36.9 ml/min; Est GFR (Non-African American) 31.8 ml/min; Potassium 4.4 mmol/L (3.5-5.1)
--- NOTE | 2024-01-31 08:06 | Orthopedic Progress Note ---
Date of Service January 31, 2024 Assessment & Plan (1) Spinal stenosis of lumbar region with radiculopathy: Plan: Constance is postoperative day 1 status post hard removal L3-5, decompression and fusion L5-S1. Will start physical therapy today. DVT prophylaxis is in the form of teds and SCDs. Continue with pain control. Continue with aggressive bowel regimen. Maintain BENOIT drain. Anticipate discharge home within the next 24 to 48 hours. Admission and Anticipated Discharge Date Admission Date: January 30, 2024 Subjective Constance is postoperative day 1 status post hard removal L3-5, TLIF L5-S1. Her only complaint is some lumbar soreness and difficulty sleeping overnight. BENOIT drain output last shift was 35 cc. H&H this morning are 8.8 and 28.8 respectively. No radicular leg pain. Review of Systems Review of Systems: All systems reviewed & are unremarkable except as noted in HPI & below Physical Exam Physical Exam: She is laying in bed in no acute distress alert and oriented x 3 Lumbar dressing is clean dry and intact with functioning BENOIT drain Strength is intact bilateral lower extremities calf soft and nontender bilaterally Results & Data Vital Signs (Past 12 Hours) Vital Signs Temp Pulse Resp BP Pulse Ox O2 Del Method 01/31/24 07:28 36.6 C 73 18 112/70 96 Room Air 01/31/24 03:59 36.6 C 75 16 116/64 95 Room Air 01/30/24 23:00 36.9 C 69 16 116/74 97 Room Air 01/30/24 20:28 72 143/84 H
[2024-01-31] MEDS: PANTOprazole 40 MG TAB PO SCH (08:16)
[2024-01-31] MEDS: CHOLECALCIFEROL 25 MCG (1000 UNITS) TAB PO SCH (08:16)
[2024-01-31] MEDS: SULFAMETHOXAZOLE/TRIMETHOPRIM DS 800/160MG TAB PO SCH (08:17)
[2024-01-31] MEDS: dexAMETHasone 6 MG in SYRINGE 0 ML IV SCH (08:20)
[2024-01-31] MEDS ORDERED: amLODIPine BESYLATE 5 MG TAB PO SCH (09:00)
[2024-01-31] MEDS: LANTUS PER UNIT CHARGE SC SCH (09:17)
--- NOTE | 2024-01-31 12:43 | Hospitalist Progress Note ---
Date of Service January 31, 2024 Assessment & Plan (1) S/P spinal surgery: (2) Spinal stenosis of lumbar region with radiculopathy: Plan: S/P Removal posterior instrumentation L3-L4, revision decompression and fusion L5-S1, placement instrumentation L3-S1 by Dr Clark on 01/30/24 DVT ppx, pain management, drain management and dispo per primary team (3) Type 2 diabetes mellitus with insulin therapy: Plan: A1c: 5.6 on 11/21/23. Hold home Ozempic Glycemic pharmacist managing insulin (4) Paroxysmal atrial fibrillation: Plan: S/P cardioversion x 2. Anticoagulated on Eliquis. Currently NSR. Continue amiodarone, metoprolol succinate Resume Eliquis when able per ortho spine (5) Chronic kidney disease, stage 3b: Plan: Baseline creatinine: 1.6-1.7 . Renal function at baseline (6) (HFpEF) heart failure with preserved ejection fraction: Plan: Appears euvolemic. Uses Lasix on as needed basis. Has not used for months. Monitor volume status (7) Hypertension: Plan: Stable. Continue metoprolol succinate (8) Hyperlipidemia: Plan: On Repatha (9) Rheumatoid arthritis: Plan: On chronic prednisone Last dose prednisone On iv dexamethasone per ortho Plan to resume home prednisone 5 mg daily on 02/03/24 after dexa course is completed Follows with rheumatology, Dr. Padron (10) Hypothyroidism: Plan: Continue levothyroxine (11) Anemia of chronic disease: Plan: Anemia of chronic disease and iron deficiency anemia Preop hemoglobin 10. Currently at 8.8 Follows with hematology Last received IV iron on 01/26/2024 Monitor H&H (12) Recurrent UTI: Plan: History recurrent UTI On chronic Bactrim Plan to continue Bactrim Follows with urology, Dr. Ramos Leucocytosis- likely reactive. No infectious source identified. On chronic bactrim. Recheck in am DVT Prophylaxis- per primary team Dispo- per primary service Time spent- 35 mins Admission and Anticipated Discharge Date Admission Date: January 30, 2024 Subjective Patient was seen and examined at bedside. She feels fine. Pain is controlled. Tolerating diet well. Discussed leucocytosis. No fever, chills, N/V, dysuria. Passed gas, no BM yet. Still with norton. Awaiting PT. Review of Systems Review of Systems: All systems reviewed & are unremarkable except as noted in Subjective Physical Exam Physical Exam: General: Sitting comfortably in bed, not in distress, on room air HEENT: EOMI, CECILIA, MMM Chest: Clear breath sounds bilaterally, no wheezes or crackles CVS: Regular rate and rhythm, normal heart sounds, no murmur Abdomen: Soft, non tender, not distended, normal bowel sounds Neuro: Awake, alert, oriented, conversing well, non focal Extremities: No cyanosis, clubbing or edema Back incision with surgical dressing intact, BENOIT drain with serosanguineous output [place] with clear urine Results & Data Results & Data Vital Signs (Past 12 Hours) Vital Signs Temp Pulse Resp BP BP Pulse Ox O2 Del Method 01/31/24 11:36 36.6 C 71 16 143/80 H 95 Room Air 01/31/24 07:28 36.6 C 73 18 112/70 96 Room Air 01/31/24 03:59 36.6 C 75 16 116/64 95 Room Air Laboratory Results Short CBC 01/31/24 Range/Units 06:53 WBC 19.57 H (4.8-10.8) K/ul Hgb 8.8 L (12.0-16.0) g/dl Hct 28.8 L (37.0-47.0) % Plt Count 206 (130-400) K/uL BMP 01/31/24 06:53 Sodium 139 Potassium 4.4 Chloride 108 H Carbon Dioxide 23 BUN 25 H Creatinine 1.63 H Glucose 129 H Calcium 8.4 L (7) Hypertension Hypertension type: essential hypertension Qualified Code(s): I10 - Essential (primary) hypertension (8) Hyperlipidemia Hyperlipidemia type: pure hypercholesterolemia Qualified Code(s): E78.00 - Pure hypercholesterolemia, unspecified (9) Rheumatoid arthritis Rheumatoid arthritis location: multiple sites Rheumatoid factor presence: unspecified presence Qualified Code(s): M06.9 - Rheumatoid arthritis, unspecified (10) Hypothyroidism Hypothyroidism type: unspecified Qualified Code(s): E03.9 - Hypothyroidism, unspecified
[2024-02-01 07:55] LABS: Hematocrit (blood only) 30.7 % (37.0-47.0); Hemoglobin 9.1 g/dl (12.0-16.0); Mean Corpuscular Hemoglobin 29.5 pg (25.0-34.0); Mean Corpuscular Hgb Conc 29.6 g/dL (32.0-36.0); Mean Corpuscular Volume 99.7 fL (80.0-100.0); Mean Platelet Volume 10.2 fL (9.4-12.4); Platelet Count 217 K/uL (130-400); RDW Coefficient of Variation 16.2 % (11.5-14.5); RDW Standard Deviation 58.7 fL (36.4-46.3); Red Blood Count 3.08 M/uL (4.20-5.40); White Blood Count 15.46 K/ul (4.8-10.8)
[2024-02-01 08:12] LABS: BUN Creatinine Ratio 25.2 (10-20); Calcium 8.9 mg/dl (8.6-10.3); Creatinine Clr Calc Pharmacy 35.5 ml/min; Est GFR (Non-African American) 32.8 ml/min; Potassium 4.2 mmol/L (3.5-5.1)
--- NOTE | 2024-02-01 08:21 | Orthopedic Progress Note ---
Date of Service February 01, 2024 Assessment & Plan (1) Spinal stenosis of lumbar region with radiculopathy: Plan: Constance is postoperative day 2 status post hard removal L3-5, decompression L5-S1 and instrumented fusion L3-S1. Will continue with DVT prophylaxis in the form of teds and SCDs. Continue with pain control. Maintain BENOIT drain. Continue with ambulation and physical therapy. Anticipate discharge home tomorrow Admission and Anticipated Discharge Date Admission Date: January 30, 2024 Subjective Constance is postoperative day 2 status post hard removal L3-5, decompression L5-S1 instrumented fusion L3-S1. She is doing well. Has some intermittent left leg/thigh pain this morning. It is tolerable. She had a bowel movement. BENOIT drain output last shift was 20 cc. Yesterday in physical therapy ambulating 275 feet plus the hallways. No other complaints. Review of Systems Review of Systems: All systems reviewed & are unremarkable except as noted in HPI & below Physical Exam Physical Exam: She is laying in bed in no acute distress Alert and oriented x 3 lumbar dressing is clean dry intact with functioning BENOIT drain calf soft and nontender bilaterally strength intact bilateral lower extremities Results & Data Vital Signs (Past 12 Hours) Vital Signs Temp Pulse Resp BP Pulse Ox O2 Del Method 02/01/24 07:19 36.5 C 69 16 161/91 H 95 Room Air 01/31/24 20:44 36.8 C 73 16 127/74 96 Room Air
[2024-02-01] MEDS: predniSONE 10 MG TABLET PO STA (10:17)
[2024-02-01] MEDS: LANTUS PER UNIT CHARGE SC ONE (10:18)
--- NOTE | 2024-02-01 14:24 | Hospitalist Progress Note ---
Date of Service February 01, 2024 Assessment & Plan (1) S/P spinal surgery: (2) Spinal stenosis of lumbar region with radiculopathy: Plan: S/P Removal posterior instrumentation L3-L4, revision decompression and fusion L5-S1, placement instrumentation L3-S1 by Dr Clark on 01/30/24 DVT ppx, pain management, drain management and dispo per primary team (3) Type 2 diabetes mellitus with insulin therapy: Plan: A1c: 5.6 on 11/21/23. Hold home Ozempic Glycemic pharmacist managing insulin (4) Paroxysmal atrial fibrillation: Plan: S/P cardioversion x 2. Anticoagulated on Eliquis. Currently NSR. Continue amiodarone, metoprolol succinate Resume Eliquis when able per ortho spine (5) Chronic kidney disease, stage 3b: Plan: Baseline creatinine: 1.6-1.7 . Renal function at baseline (6) (HFpEF) heart failure with preserved ejection fraction: Plan: Appears euvolemic. Uses Lasix on as needed basis. Has not used for months. Monitor volume status (7) Hypertension: Plan: Stable. Continue metoprolol succinate (8) Hyperlipidemia: Plan: On Repatha (9) Rheumatoid arthritis: Plan: On chronic prednisone Last dose prednisone/ Follows with rheumatology, Dr. Padron (10) Hypothyroidism: Plan: Continue levothyroxine (11) Anemia of chronic disease: Plan: Anemia of chronic disease and iron deficiency anemia Preop hemoglobin 10. Currently at 9 Follows with hematology Last received IV iron on 01/26/2024 Monitor H&H (12) Recurrent UTI: Plan: History recurrent UTI On chronic Bactrim Plan to continue Bactrim Follows with urology, Dr. Ramos Leucocytosis- likely reactive. Already improving to 15. Patient is well- looking. No infectious source identified. On chronic bactrim. Recheck in am DVT Prophylaxis- per primary team Dispo- per primary service Time spent- 35 mins Admission and Anticipated Discharge Date Admission Date: January 30, 2024 Subjective Patient was seen and examined at bedside. She feels good. Pain is controlled, just some burning sensation. Tolerating diet well. Voiding without issues. Had BM. Did well with therapy. Looking forward to going home tomorrow. was at bedside Review of Systems Review of Systems: All systems reviewed & are unremarkable except as noted in Subjective Physical Exam Physical Exam: General: Sitting comfortably in chair, not in distress, on room air HEENT: EOMI, CECILIA, MMM Chest: Clear breath sounds bilaterally, no wheezes or crackles CVS: Regular rate and rhythm, normal heart sounds, no murmur Abdomen: Soft, non tender, not distended, normal bowel sounds Neuro: Awake, alert, oriented, conversing well, non focal Extremities: No cyanosis, clubbing or edema Back incision with surgical dressing intact, BENOIT drain with serosanguineous output Results & Data Results & Data Vital Signs (Past 12 Hours) Vital Signs Temp Pulse Resp BP Pulse Ox O2 Del Method 02/01/24 07:19 36.5 C 69 16 161/91 H 95 Room Air Laboratory Results Short CBC 02/01/24 Range/Units 07:33 WBC 15.46 H (4.8-10.8) K/ul Hgb 9.1 L (12.0-16.0) g/dl Hct 30.7 L (37.0-47.0) % Plt Count 217 (130-400) K/uL BMP 02/01/24 07:33 Sodium 138 Potassium 4.2 Chloride 105 Carbon Dioxide 26 BUN 40 H Creatinine 1.59 H Glucose 119 H Calcium 8.9 (7) Hypertension Hypertension type: essential hypertension Qualified Code(s): I10 - Essential (primary) hypertension (8) Hyperlipidemia Hyperlipidemia type: pure hypercholesterolemia Qualified Code(s): E78.00 - Pure hypercholesterolemia, unspecified (9) Rheumatoid arthritis Rheumatoid arthritis location: multiple sites Rheumatoid factor presence: unspecified presence Qualified Code(s): M06.9 - Rheumatoid arthritis, unspecified (10) Hypothyroidism Hypothyroidism type: unspecified Qualified Code(s): E03.9 - Hypothyroidism, unspecified
[2024-02-02 07:13] LABS: Hematocrit (blood only) 28.3 % (37.0-47.0); Hemoglobin 8.5 g/dl (12.0-16.0); Mean Corpuscular Hemoglobin 29.8 pg (25.0-34.0); Mean Corpuscular Volume 99.3 fL (80.0-100.0); Mean Platelet Volume 10.3 fL (9.4-12.4); Nucleated RBC # (auto) 0.04 K/uL (0.00-0.12); Nucleated RBC % (auto) 0.3 %; Platelet Count 196 K/uL (130-400); RDW Coefficient of Variation 16.2 % (11.5-14.5); RDW Standard Deviation 58.4 fL (36.4-46.3); Red Blood Count 2.85 M/uL (4.20-5.40); White Blood Count 12.09 K/ul (4.8-10.8)
[2024-02-02 07:40] LABS: BUN Creatinine Ratio 24.3 (10-20); Calcium 8.6 mg/dl (8.6-10.3); Creatinine Clr Calc Pharmacy 32.6 ml/min; Est GFR (African American) 34.3 ml/min; Est GFR (Non-African American) 29.6 ml/min; Potassium 4.2 mmol/L (3.5-5.1)
[2024-02-02] MEDS: predniSONE 5 MG TAB PO SCH (08:26)
[2024-02-02] MEDS: LANTUS PER UNIT CHARGE SC SCH (08:28)
--- NOTE | 2024-02-02 11:50 | Hospitalist Progress Note ---
Date of Service February 02, 2024 Assessment & Plan (1) S/P spinal surgery: (2) Spinal stenosis of lumbar region with radiculopathy: Plan: S/P Removal posterior instrumentation L3-L4, revision decompression and fusion L5-S1, placement instrumentation L3-S1 by Dr Clark on 01/30/24 DVT ppx, pain management, drain management and dispo per primary team (3) Type 2 diabetes mellitus with insulin therapy: Plan: A1c: 5.6 on 11/21/23. Hold home Ozempic Glycemic pharmacist managing insulin (4) Paroxysmal atrial fibrillation: Plan: S/P cardioversion x 2. Anticoagulated on Eliquis. Currently NSR. Continue amiodarone, metoprolol succinate Resume Eliquis when able per ortho spine (5) Chronic kidney disease, stage 3b: Plan: Baseline creatinine: 1.6-1.7 . Renal function at baseline (6) (HFpEF) heart failure with preserved ejection fraction: Plan: Appears euvolemic. Uses Lasix on as needed basis. Has not used for months. Monitor volume status (7) Hypertension: Plan: Stable. Continue metoprolol succinate (8) Hyperlipidemia: Plan: On Repatha (9) Rheumatoid arthritis: Plan: On chronic prednisone Last dose prednisone/ Follows with rheumatology, Dr. Padron (10) Hypothyroidism: Plan: Continue levothyroxine (11) Anemia of chronic disease: Plan: Anemia of chronic disease and iron deficiency anemia Preop hemoglobin 10. Currently at 8.5. Follows with hematology Last received IV iron on 01/26/2024 Monitor H&H (12) Recurrent UTI: Plan: History recurrent UTI On chronic Bactrim Plan to continue Bactrim Follows with urology, Dr. Ramos Leucocytosis- likely reactive. Continues to trend down to 12. Patient is well- looking. No infectious source identified. On chronic bactrim. DVT Prophylaxis- per primary team Dispo- per primary service. Patient is stable to discharge from hospitalist perspective Time spent- 35 mins Admission and Anticipated Discharge Date Admission Date: January 30, 2024 Subjective Patient was seen and examined at bedside. Pain is much improved. Tolerating diet well. Voiding without issues. Regular bowel movements. No fever, chills, chest pain or shortness of breath. Feels ready to go home Review of Systems Review of Systems: All systems reviewed & are unremarkable except as noted in Subjective Physical Exam Physical Exam: General: Sitting comfortably in bed, not in distress, on room air HEENT: EOMI, CECILIA, MMM Chest: Clear breath sounds bilaterally, no wheezes or crackles CVS: Regular rate and rhythm, normal heart sounds, no murmur Abdomen: Soft, non tender, not distended, normal bowel sounds Neuro: Awake, alert, oriented, conversing well, non focal Extremities: No cyanosis, clubbing or edema Back incision with surgical dressing intact, BENOIT drain with serosanguineous output Results & Data Results & Data Vital Signs (Past 12 Hours) Vital Signs Temp Pulse Resp BP Pulse Ox O2 Del Method 02/02/24 07:14 36.6 C 71 16 152/80 H 94 Room Air Laboratory Results Short CBC 02/02/24 Range/Units 06:17 WBC 12.09 H (4.8-10.8) K/ul Hgb 8.5 L (12.0-16.0) g/dl Hct 28.3 L (37.0-47.0) % Plt Count 196 (130-400) K/uL BMP 02/02/24 06:17 Sodium 140 Potassium 4.2 Chloride 106 Carbon Dioxide 27 BUN 42 H Creatinine 1.73 H Glucose 100 H Calcium 8.6 (7) Hypertension Hypertension type: essential hypertension Qualified Code(s): I10 - Essential (primary) hypertension (8) Hyperlipidemia Hyperlipidemia type: pure hypercholesterolemia Qualified Code(s): E78.00 - Pure hypercholesterolemia, unspecified (9) Rheumatoid arthritis Rheumatoid arthritis location: multiple sites Rheumatoid factor presence: unspecified presence Qualified Code(s): M06.9 - Rheumatoid arthritis, unspecified (10) Hypothyroidism Hypothyroidism type: unspecified Qualified Code(s): E03.9 - Hypothyroidism, unspecified
--- NOTE | 2024-02-02 14:03 | Discharge Summary ---
Date of Service February 02, 2024 Admission HPI Per Admitting Provider This is a 69-year-old female who presents with chronic persistent back and leg pain after failing course of nonoperative care is here for surgical invention Principal Diagnosis Lumbar spinal stenosis with neurogenic claudication Discharge Data Allergies Allergy/AdvReac Type Severity Reaction Status Date / Time tetracycline Allergy Severe Facial rash Verified 01/30/24 06:32 methenamine Allergy Intermediate Swelling Verified 01/30/24 06:32 of Lip/Tongue/Throat Jxbtwxl-QDM-BfD Reductase AdvReac Intermediate LE edema Verified 01/30/24 06:32 Inhibitor [Kpuyjao-Xuf-Swb Reductase Inhibitor] morphine AdvReac Mild Nausea Verified 01/30/24 06:32 oxycodone AdvReac Mild Drowsy Verified 01/30/24 06:32 Consultations 01/30/24 12:02 Consult Hospitalist Routine Procedures Performed Operation Date: 01/30/24 07:45 Actual Procedures p L5-S1 Decompression and Fusion, Spinal Cord Monitoring(Not Applicable) - Raymond Clark DO s L3-L5 Hardware Removal,(Not Applicable) - Raymond Clark DO Ordered Studies 01/30/24 07:00 FL lumbar spine 2-3V Routine Hospital Course (1) Spinal stenosis of lumbar region with radiculopathy: Patient underwent revision decompression fusion tolerated as well as taken to orthopedic for postoperative. Postoperatively she progressed appropriately. Leg pain improved. Back pain controlled. Excellent strength testing. BENOIT drain decreasing appropriately. Subsequent discharge home. Discharge orders instructions from the chart for further review. Total Time Total Time Spent Total Time Spent (In Minutes): 20 minutes Discharge Plan Discharge Items Patient Disposition: Home - Self-Care Reason For Visit: Spongylolisthesis, Lumbar Region, Lumbar Radiculop Discharge Diagnosis: Lumbar spinal stenosis with neurogenic claudication Activity: As commented below Non-emergency contact: Primary Care Provider Call non-emergency contact if: you have any medication questions Follow-up/Referrals: Vladislav Brice MD [Primary Care Provider] - Diet: Regular Addtl Attending Provider Instructions: ACTIVITY RECOMMENDATIONS: SELF CARE INSTRUCTIONS AFTER THORACIC/LUMBAR FUSIONS 1. You may walk to your tolerance. It is good exercise for your legs and back. Expect some back and intermittent leg aches and pains. 2. You may perform "counter-top" level activities (make a sandwich, gerald with a project, etc.). 3. No bending or lifting of more than 10 pounds or back twisting of any nature (roll like a log when turning in bed). 4. You may ride in a car for 20-30 minutes at a time. No driving until after your first visit with your doctor. 5. Frequent changes of position and restricting sitting to 30 minutes at a time will help limit the amount of back spasms and stiffness you may experience. 6. You may discontinue the use of ambulatory aids (cane, crutches, etc.) once your strength and confidence allow. 7. You may answering service agent the shower and let water strike your incision when you arrive home at least once daily. Do not take a tub bath, sit in a hot tub or go into a swimming pool until after your first recheck in the office. SPECIAL CARE INSTRUCTIONS: VERY IMPORTANT TO READ AND REVIEW A. Your surgical incision has been closed with a cosmetic suture under the skin that will dissolve in about 6 weeks. In 14 days, you can use a pair of clean scissors and cut the suture that is left outside of the skin at the ends of your incision. 1. The small skin tapes can be removed 7 days after surgery if they have not fallen off by that point. 2. You may keep the wound open to air as much as possible to promote healing after post-op day number 5 unless told otherwise by your doctor. 3. If you think the wound looks like it is becoming infected (redness or worsening drainage) and/or you are experiencing fever, chill or worsening back pain and muscle spasms, contact the office so that we may evaluate you as soon as possible. B. Complications are uncommon, but please contact us if you have any signs or symptoms of: 1. wound infection (fever higher than 102.5 degrees F, redness, separation of wound, drainage, or increasing pain from the incision) 2. blood clots in legs (pain, swelling, redness and warmth in legs) 3. urinary tract infection (fever higher than 102.5 degrees F, burning upon urination or increased frequency of urination) 4. nerve problems (inability to walk on your toes or heels, numbness, loss of bowel or bladder control) 5. any other symptoms that concern you C. Please call the office at if you have any concerns or questions about your operation or recovery. D. No smoking! Smoking drastically decreases the chance of a solid fusion. E. Do not take any anti-inflammatory medications (Indocin, Advil, Motrin, Aspirin, Naprosyn, etc.) as these may inhibit the chance of a solid fusion. Tylenol is okay to take for pain. MANAGING PAIN AFTER SPINAL SURGERY 1. Narcotic medication is intended for short-term use and will be provided for surgical pain. Surgical pain usually lasts for a period of 4-6 weeks. Narcotic medication includes Percocet, Vicodin, Darvocet, Tylenol #3 or Lortab. 2. Longer-term pain is more appropriately treated with non-narcotic medication such as Tylenol ES. 3. Muscle spasm is not appropriately treated with narcotics. Muscle relaxers such as Soma, Flexeril or Skelaxin can be used along with Tylenol ES. 4. Remember that we all live with some "aches and pains". This is not unusual or uncommon after an injury or as we get older. a. Back pain is expected and may include muscle spasms for 4 to 6 weeks after surgery. The pain should gradually improve. If the pain worsens for no apparent reason, please contact the office. b. Intermittent leg pain may also be experienced and should not be concerned about unless it worsens for no apparent reason. If so, please contact the office. 5. We will provide appropriate medication within the normal guidelines of their prescribed use. We will also be very cautious and aware of potential abuse and extended duration of patients' medication needs. a. Pain medications are for your comfort and to assist with sleep and rest so that the tissue can heal. They are not provided in order to return to normal activity and should not be used through the day. To do so or worsening pain at night can result from ongoing tissue damage and development of tolerance to the prescribed medicine. 6. Please allow 2-3 days to process refills. Prescriptions will not be mailed but must be picked up at the office. FOLLOW UP VISIT: Keep your scheduled follow-up appointment. Any questions, please call the office at . Pending Studies at Discharge: No Stand-Alone Forms: My ByRead, Smoking Cessation Medications and TX Order Prescriptions: New hydrocodone-acetaminophen 5-325 mg tablet 1 tab PO Q6H PRN (Reason: pain) Qty: 30 0RF tramadol 50 mg tablet 50 mg PO Q6H PRN (Reason: pain, moderate) Qty: 30 0RF Continued metoprolol succinate 100 mg tablet extended release 24 hr 100 mg PO BID Qty: 180 3RF (DME) lancets [OneTouch Delica Plus Lancet] 33 gauge misc See Rx Instructions .ROUTE .MEDSUPPLY Qty: 100 3RF Rx Instructions: test 1 time daily (DME) blood-glucose meter [OneTouch Verio Reflect Meter] Misc See Rx Instructions .Route Qty: 1 0RF Rx Instructions: As directed (DME) OneTouch Verio test strips Strip See Rx Instructions .ROUTE .MEDSUPPLY Qty: 100 3RF Rx Instructions: test 1 time daily (DME) pen needle, diabetic 31 gauge x 1/4" needle See Rx Instructions .Route Qty: 100 10RF Rx Instructions: As directed Eliquis 5 mg tablet 5 mg PO BID Qty: 180 3RF amiodarone 200 mg tablet 200 mg PO HS Qty: 90 3RF Repatha Pushtronex 420 mg/3.5 mL wearable injector 420 mg subcut .once monthly Qty: 10.5 3RF insulin glargine [Lantus Solostar U-100 Insulin] 100 unit/mL (3 mL) insulin pen 5 unit subcut HS Qty: 15 3RF Rx Instructions: Inject 5 units into the abdomen once daily. magnesium 250 mg Tablet 250 mg PO HS cholecalciferol (vitamin D3) [Vitamin D3] 1,000 unit Capsule 1,000 unit PO QAM acetaminophen [Tylenol Extra Strength] 500 mg Tablet 1,000 mg PO Q6H PRN (Reason: Pain) Advanced Probiotic 625 mg (10 billion cell) capsule 1 cap PO HS furosemide [Lasix] 20 mg tablet 20 mg PO DAILY PRN (Reason: edema of legs) Qty: 30 5RF cyclobenzaprine 10 mg tablet 10 mg PO HS PRN (Reason: muscle spasm) Qty: 30 0RF sulfamethoxazole-trimethoprim [Bactrim DS] 800-160 mg tablet 1 tab PO QAM gabapentin 300 mg capsule 600 mg PO HS Rx Instructions: Take two tablets (600 mg) by mouth once before bed. Ozempic 0.25 mg or 0.5 mg (2 mg/3 mL) pen injector 0.25 mg subcut Q7D levothyroxine 112 mcg tablet 112 mcg PO DAILY prednisone 5 mg tablet 5 mg PO DAILY omeprazole 20 mg capsule,delayed release(DR/EC) 20 mg PO DAILY Discharge Orders: Discharge Order (Routine); Ordered 02/02/24 Ordered By: Raymond Clark Admission Data Admit Date/Time: 01/30/24 10:44 Attending Provider: Raymond Clark Admit Provider: Raymond Clark Primary Care Provider: Vladislav Brice Other Providers: Catherine Roberts; Peter Hernandez Other Interventions: Discharge Summary Assessment (RN) Last Done: 02/02/24 12:10
[2024-02-03] MEDS ORDERED: predniSONE 5 MG TAB PO SCH (09:00)
== END 2024-02-02 13:17 | disposition home or self-care (01) | DRG 454 ==
LOC: ASU 06:05 → 3E 10:44

== ENCOUNTER 2024-04-25 10:32 | Inpatient (IN) ==
--- NOTE | 2024-04-25 10:44 | Emergency Department Note ---
Impression & Plan Perforated diverticulum, Diverticulitis of sigmoid colon, Severe sepsis, Pelvic abscess in female ED Provider Note Name: MAGY LILLY Age: 69 Sex: Female Arrives Via: Ambulance Informant:, , EMS ED Provider: Jessee Malik MD Chief Complaint: Weakness Impression: As per impressions above Medical Decision Makin-year-old female with a quite complex past medical history including paroxysmal A-fib on Eliquis, CKD stage III, CHF, chronic immunosuppression, rheumatoid arthritis, CVA, type 2 diabetes amongst others arrives for evaluation of worsening weakness and confusion. Patient arrives febrile somewhat encephalopathic and ill-appearing. Septic workup initiated with blood cultures and lactate obtained. She was initially given 1 L normal saline and in addition to the Tylenol she had received prior to arrival her mental status improved significantly. Patient awake alert oriented there was a bit somnolent. Mildly low O2 sats requiring [address] of the head is unremarkable. Chest x-ray looks okay. Her CT of the ab pelvis without contrast does show a perforated sigmoid diverticulitis with multiple abscesses. During her stay patient was relatively stable until around shortly after 1:30 PM and blood pressures were noted to start trending down. A second liter normal saline was ordered in the setting of worsening blood pressures. Given her chronic disease and steroid use daily she was given a dose of hydrocortisone. Blood pressures still a bit soft as second liter infusing thus Levophed ordered to be at bedside. Patient with good IVs bilateral arms thus short-term peripheral Levophed reasonable plan. Patient did receive IV antibiotics for severe sepsis. Given her history of MRSA as well as her other resistance she was given cefepime IV, vancomycin IV and then following finding perforated bowel she was given IV Flagyl. Sepsis fluid resuscitation. Patient initially given 1 L normal saline bolus rather than 30 mL/kg IV fluids as she has a known history of CHF as well as CKD. Triage/Nursing Notes reviewed by Me Differential:Viral syndrome, otitis, pharyngitis, pneumonia, influenza, meningitis, urinary tract infection, sepsis, bacteremia, as well as other pathologies. Vital Signs: reviewed and remarkable for mild hypertension on arrival however after being in ER developed worsening hypotension Interventions: normal saline bolus 1 L IV x 2, cefepime IV, Flagyl IV, vancomycin IV, hydrocortisone 100 mcg IV, Levophed IV Labs:ED labs Reviewed by me and remarkable for elevated white blood cell count. Lactate 2.0. Imaging:CT of the head without contrast as per my informal interpretation no intracranial hemorrhage or mass effect similar to previous CT of the head. Confirmed by radiologist. 1 view chest x-ray no infiltrate or effusion appreciated. Confirmed by radiologist. CT of the abdomen pelvis without contrast as per my informal interpretation reveals sigmoid diverticulitis with multiple areas of perforation. Radiologist notes significant abscesses as well. EKG:As per my interpretation. Indication weakness. Normal sinus rhythm at 80 bpm QTc of 413. There is no ectopy nor ischemia. When compared to EKG of January 13, 2024 there is no significant change. Cardiac/Tele Monitoring: Cardiac Monitoring: An Order was placed for continuous cardiac monitoring. The monitor shows a rate of 80 with a normal sinus rhythm. Sepsis repeat volume status exam 2:10 PM on 04/25/2024. Performed by me. Patient is much more alert and oriented however blood pressure started trending down. She is received initial bolus of fluid and will receive a second bolus along with pressors are being ordered and steroids. Consults:Discussed with Helena Plasencia PA-C Gen Surg -will come evaluate the patient. Kathleen Nice PA-C [facility] hospitalist service. Discussed with them and will plan hospitalization once general surgery evaluation. I did discuss case also with Dr. Fontaine of critical care medicine who is now aware of the case and will follow as needed. Plan: Disposition:Hospitalization. Condition: Critically Ill History of Present Illness: 69-year-old female arrives for evaluation of abdominal pain and confusion. Patient with reportedly 1 week of worsening constipation issues. Does pass some gas. Associated with increasing abdominal discomfort, nausea, distention. Denies any chest pain, shortness of breath. Apparently per EMS patient was a bit confused last evening and confusion had worsened this morning. She is coming from home. Patient without any recent falls or trauma according to history. She states she has been taking her medications including her Eliquis. No recent antibiotics. Patient states blood sugars have been under control. She has a history of laparoscopic hysterectomy. Patient was given 650 mg Tylenol by EMS. Past Medical History:See Below Home Medications:See Below Allergies: See below Vitals:Blood Pressure: 159/71, Pulse 88, RR 21, T 39.4C, O2 93% on RA Physical Exam: GENERAL: Patient is mildly encephalopathic, ill appearing and in mild distress. RESPIRATORY: No dyspnea. Clear to auscultation and equal bilaterally. CARDIOVASCULAR: Regular rate and rhythm.No murmur appreciated. GASTROINTESTINAL: Distended with hypoactive bowel sounds mild diffuse lower abdominal tenderness palpation no overt peritonitis appreciated. EXTREMITIES: Normal motion all extremities, no cyanosis, no edema. NEUROLOGIC: Mildly encephalopathy requiring recurrent redirection. No focal neurologic deficits appreciated SKIN: No rash, no jaundice, no diaphoresis. PSYCH: Appropriate GCS: 15 ED Course: Times/Reassessments: Patient initially improving with fluids and Tylenol and mental status much improved. Unfortunately blood pressure started trending down. Is significantly lower than her baseline. Critical Care: I have personally spent 90 minutes of critical care time in the direct management of this patient. Acute perforated sigmoid diverticulitis causing severe sepsis/septic shock requiring resuscitation and significant coordination of care. This was a life/limb threatening event. This 90 minutes is in excess of all separately billable procedures. Jessee Malik MD Past Med/Surg History Problem List Pelvic abscess in female (Acute) Severe sepsis (Acute) Diverticulitis of sigmoid colon (Acute) Perforated diverticulum (Acute) Olecranon bursitis Loose body in right elbow Spinal stenosis of lumbar region with radiculopathy S/P spinal surgery Neurogenic claudication due to lumbar spinal stenosis Elbow effusion Dyslipidemia Dyspnea on exertion Medial epicondylitis, right elbow Osteoarthritis of right elbow Nephrolithiasis Status post laparoscopic cholecystectomy Encounter for pre-operative examination Bacteria in urine Sepsis (Acute) Lactate blood increase Abdominal pain Type 2 diabetes mellitus with insulin therapy Type 2 GA (myocardial infarction) pt denies History of biliary stent insertion Radiating chest pain Preop cardiovascular exam Chronic heart failure with preserved ejection fraction Acute pyelonephritis due to bacteria Urinary tract infection (Acute) Choledocholithiasis Type 2 diabetes mellitus Diabetes mellitus with neuropathy Diabetes mellitus with nephropathy Statin myopathy Mitral stenosis Persistent atrial fibrillation follows with Dr. Pedraza Atrial fibrillation with rapid ventricular response (Acute) Thoracic compression fracture Sepsis UTI (09/2022) Ischemic stroke Microscopic hematuria (Chronic) Polymorphic light eruption (Chronic) Vitamin D deficiency (Chronic) Neuropathy (Chronic) Rheumatoid arthritis Hypertension Hyperlipidemia Recurrent UTI Immunosuppression due to drug therapy (Acute) *Prednisone daily* (HFpEF) heart failure with preserved ejection fraction EF 60-65%, type 2 diastolic dysfunction on 12/2022 echo Anemia of chronic disease Hx iron infusions (most recent 01/31/23, [facility]) Chronic kidney disease, stage 3b Paroxysmal atrial fibrillation x2 cardioversion 12/2022 Hypothyroidism Medical History Chronic steroid use On anticoagulant therapy History of cardioversion 12/13/22 and 12/31/22 ([facility]) History of stroke Vertebrobasilar artery brainstem stroke 2020, slight residual right sided weakness Given TPA on 04/21/2021 with resolution of symptoms History of recent blood transfusion 09/18/22 @ [facility] History of COVID-19 2020- hospitalized at [facility] for 9 days, no issues now GERD (gastroesophageal reflux disease) Anxiety Stenosis of left internal carotid artery 50-69% stenosis of left ICA per 04/2021 neck CTA Stenosis of left vertebral artery Approximately 90% stenosis within V4 segment of left vertebral artery per 04/21/2021 neck CTA History of MRSA infection lumbar surgical incision s/p vanco/ceftriaxone/bactrim per 04/2019 [facility] discharge summary 2022 - positive nasal swab Lumbar radiculopathy Spinal stenosis Diabetes mellitus type II, controlled Surgical History History of lithotripsy 03/2023 at [facility] --> right kidney stone History of esophagogastroduodenoscopy (EGD) Hx of colonoscopy Hx laparoscopic cholecystectomy (02/12/23) Robotic Assisted Laparoscopic Cholecystectomy (Not Applicable) - Otto Fish DO History of ERCP w/stent placement; s/p stent removal also History of lumbar surgery Lumbar Spine Wound Revision 2019 Status post laminectomy with spinal fusion L2-L5 laminectomy/fusion (12/24/18): Grade view 1, MAC#3, ETT 7.0 Hx of tonsillectomy History of x2 History of total left knee replacement History of hysterectomy total Family History Father Diabetes Lung cancer Cancer Hypertension Mother Malignant neoplasm of brain Diabetes Brain tumor Cancer Hypertension Aunt Breast cancer Sister Hypertension Other No family history of adverse response to anesthesia Denies family history of Ovarian cancer Prostate cancer Myocardial infarction Colorectal cancer Social History Smoking Status: Never smoker Second Hand Exposure: Yes (hx); Hx Alcohol Use: No Hx Substance Use: No Preferred Language: Guinean Communication Ability: Effective Visual Impairment: No Limitations Hearing Ability: Normal Drug Clerk Required: No Beliefs That Will Affect Care: None marital status: Current Living Situation: Spouse Current Living Situation Comment: 1 level home current occupational status: retired How many Children do You have: 2 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 Feels Safe at Home: Yes Safety Concerns: Feels Safe At This Time Childhood Exposure to Second-Hand Smoke: Yes Diet: gluten free caffeine: Yes Dental Care, Regularly: Yes Physical Activity Frequency: 5-6 Times per Week Physical Activity Frequency Comment: gym Seatbelt Use: always Sunscreen Use: Yes Do you think of yourself as: straight/heterosexual Assistive Devices: Cane and Walker Allergies Allergies Allergy/AdvReac Type Severity Reaction Status Date / Time tetracycline Allergy Severe Facial rash Verified 04/25/24 13:13 methenamine Allergy Intermediate Swelling Verified 04/25/24 13:13 of Lip/Tongue/Throat [id number] Reductase AdvReac Intermediate LE edema Verified 04/25/24 13:13 Inhibitor [Ogbygny-Pvi-Mdn Reductase Inhibitor] morphine AdvReac Mild Nausea Verified 04/25/24 13:13 oxycodone AdvReac Mild Drowsy Verified 04/25/24 13:13 Home Meds Home Medications Medication Instructions Recorded Confirmed cholecalciferol (vitamin D3) 25 1,000 unit PO QAM 10/26/18 04/25/24 mcg (1,000 unit) capsule (Vitamin D3) magnesium 250 mg tablet 250 mg PO HS 10/26/18 04/25/24 acetaminophen 500 mg tablet 1,000 mg PO Q6H PRN Pain 12/24/18 04/25/24 (Tylenol Extra Strength) L.acidop,casei,lactis,rham-B.lact,reyes 1 cap PO HS 12/12/22 04/25/24 625 mg (10 billion cell) capsule (Advanced Probiotic) gabapentin 300 mg capsule 600 mg PO HS 01/14/24 04/25/24 semaglutide 0.25 mg or 0.5 mg (2 0.5 mg subcut Q7D 01/14/24 04/25/24 mg/3 mL) subcutaneous pen injector (Ozempic) sulfamethoxazole 800 1 tab PO QAM preventative 01/14/24 04/25/24 mg-trimethoprim 160 mg tablet (Bactrim DS) levothyroxine 112 mcg tablet 112 mcg PO DAILY 01/30/24 04/25/24 omeprazole 20 mg capsule,delayed 20 mg PO DAILY 01/30/24 04/25/24 release prednisone 5 mg tablet 5 mg PO DAILY 01/30/24 04/25/24 cyclobenzaprine 10 mg tablet 10 mg PO DAILY PRN muscle spasm 04/25/24 04/25/24 Previous Rx's Medication Instructions Recorded furosemide 20 mg tablet (Lasix) 20 mg PO DAILY PRN edema of legs 12/13/22 #30 tabs metoprolol succinate 100 mg 100 mg PO BID #180 tabs 01/13/23 tablet,extended release 24 hr OneTouch Delica Plus Lancet 33 #100 ea 05/21/23 gauge (lancets) OneTouch Verio Reflect Meter #1 ea 05/21/23 (blood-glucose meter) OneTouch Verio test strips (blood #100 ea 05/21/23 sugar diagnostic) pen needle, diabetic 31 gauge x #100 ea 09/18/23 1/" amiodarone 200 mg tablet 200 mg PO HS #90 tabs 09/21/23 apixaban 5 mg tablet (Eliquis) 5 mg PO BID #180 tabs 09/21/23 insulin glargine 100 unit/mL (3 5 unit (0.05 mL) subcut HS #15 mL 11/05/23 mL) subcutaneous pen (Lantus Solostar U-100 Insulin) tramadol 50 mg tablet 50 mg PO Q6H PRN pain, moderate 01/30/24 #30 tabs Results & Data (ED) Vital Signs Vital Signs - 24 hr 04/25/24 13:09 04/25/24 13:14 04/25/24 13:33 Pulse Rate 80 Pulse Rate [Left Radial] 77 Pulse Rate from SpO2 Sensor 80 Respiratory Rate 18 18 Blood Pressure 89/51 L Blood Pressure [Left Arm] 89/51 L Blood Pressure Mean 61 Blood Pressure Mean [Left Arm] 63 Pulse Oximetry 85 L 94 Oxygen Delivery Method Nasal Cannula Nasal Cannula Oxygen Flow Rate 1 1 04/25/24 13:42 04/25/24 13:48 04/25/24 13:48 Pulse Rate 76 76 Pulse Rate [Left Radial] Pulse Rate from SpO2 Sensor 76 76 Respiratory Rate 14 15 Blood Pressure 98/54 L Blood Pressure [Left Arm] Blood Pressure Mean 69 Blood Pressure Mean [Left Arm] Pulse Oximetry 94 95 Oxygen Delivery Method Oxygen Flow Rate 04/25/24 13:48 04/25/24 13:51 04/25/24 14:00 Pulse Rate 78 Pulse Rate [Left Radial] Pulse Rate from SpO2 Sensor 78 Respiratory Rate 16 Blood Pressure 98/54 L 87/48 L Blood Pressure [Left Arm] Blood Pressure Mean 69 69 Blood Pressure Mean [Left Arm] Pulse Oximetry 95 Oxygen Delivery Method Nasal Cannula Oxygen Flow Rate 1 04/25/24 14:12 04/25/24 14:54 04/25/24 15:00 Pulse Rate 77 77 77 Pulse Rate [Left Radial] Pulse Rate from SpO2 Sensor 77 78 Respiratory Rate 19 16 15 Blood Pressure 95/57 L Blood Pressure [Left Arm] Blood Pressure Mean 67 Blood Pressure Mean [Left Arm] Pulse Oximetry 96 95 95 Oxygen Delivery Method Nasal Cannula Oxygen Flow Rate 1 04/25/24 15:26 Pulse Rate 79 Pulse Rate [Left Radial] Pulse Rate from SpO2 Sensor Respiratory Rate 16 Blood Pressure 95/49 L Blood Pressure [Left Arm] Blood Pressure Mean 64 Blood Pressure Mean [Left Arm] Pulse Oximetry 96 Oxygen Delivery Method Room Air Oxygen Flow Rate Laboratory Data 04/26/24 04:39 04/26/24 04:39 Lab Results 04/25/24 04/25/24 04/25/24 Range/Units 10:55 11:18 15:00 WBC 16.40 H (4.8-10.8) K/ul RBC 3.86 L (4.20-5.40) M/uL Hgb 11.3 L (12.0-16.0) g/dl Hct 37.3 (37.0-47.0) % MCV 96.6 (80.0-100.0) fL MCH 29.3 (25.0-34.0) pg MCHC 30.3 L (32.0-36.0) g/dL RDW Std Deviation 51.8 H (36.4-46.3) fL RDW Coeff of Sumaya 14.6 H (11.5-14.5) % Plt Count 233 (130-400) K/uL MPV 10.4 (9.4-12.4) fL Immature Gran % (Auto) 0.9 % Neut % (Auto) 89.1 % Lymph % (Auto) 3.8 % [place] % (Auto) 6.0 % Eos % (Auto) 0.1 % Baso % (Auto) 0.1 % Neut # (Auto) 14.63 H (1.40-6.50) K/uL Lymph # (Auto) 0.62 L (1.20-3.40) K/uL [place] # (Auto) 0.98 H (0.11-0.59) K/uL Eos # (Auto) 0.01 (0.00-0.50) K/uL Baso # (Auto) 0.02 (0.00-0.20) K/uL Immature Gran # (Auto) 0.14 (0.01-0.20) K/uL PT 11.3 (9.0-12.0) Seconds INR 1.0 (0.9-1.1) APTT 31 (21-31) Seconds PTT Ratio 1.2 Sodium 136 (136-145) mmol/L Potassium 4.3 (3.5-5.1) mmol/L Chloride 102 (98-107) mmol/L Carbon Dioxide 25 (21-32) mmol/L Anion Gap 9 (3-11) BUN 37 H (6-23) mg/dl Creatinine 1.73 H (0.6-1.2) mg/dl Est Cr Clr Drug Dosing 32.8 ml/min Est GFR ( Amer) 34.3 ml/min Est GFR (Non-Af Amer) 29.6 ml/min BUN/Creatinine Ratio 21.4 H (10-20) Glucose 143 H (70-99(Fasting)) mg/dl Lactate 2.0 (0.4-2.0) mmol/L Calcium 8.4 L (8.6-10.3) mg/dl Magnesium 2.2 (1.7-2.4) mg/dl Total Bilirubin 0.3 (0.2-1.0) mg/dl Direct Bilirubin 0.1 (0-0.2) mg/dl AST 14 (13-39) U/L ALT 13 (7-52) U/L Alkaline Phosphatase 93 (34-104) U/L Troponin I High Sens 10.6 (0-14) pg/ml Total Protein 6.8 (6.0-8.3) gm/dl Albumin 3.8 (3.4-5.0) gm/dl Procalcitonin 0.35 (0-0.5) ng/ml Urine Color Yellow Urine Appearance Clear (Clear) Urine pH 6.0 (4.5-7.5) Ur Specific [place] 1.024 (1.000-1.030) Urine Protein 2+ H (Negative) Urine Glucose (UA) Negative (Negative) Urine Ketones Negative (Negative) Urine Blood Negative (Negative) Urine Nitrite Negative (Negative) Urine Bilirubin Negative (Negative) Urine Urobilinogen Negative (Negative) Ur Leukocyte Esterase Trace H (Negative) Urine WBC (Auto) 6-10 H (0-5) /hpf Urine RBC (Auto) >20 H (0-2) /hpf U Hyaline Cast (Auto) 0-2 (0-2) /lpf U Epithel Cells (Auto) 0-2 (0-2) /hpf Urine Bacteria (Auto) 1+ H (None Seen) Nasal Screen MRSA (PCR) Negative (Negative) SARS-CoV-2 (PCR) NEGATIVE (Negative) Influenza Type A (PCR) Negative (Neg) Influenza Type B (PCR) Negative (Neg) RSV (RT-PCR) Negative (Neg) Blood Type Antibody Screen Crossmatch 04/25/24 Range/Units 15:01 WBC (4.8-10.8) K/ul RBC (4.20-5.40) M/uL Hgb (12.0-16.0) g/dl Hct (37.0-47.0) % MCV (80.0-100.0) fL MCH (25.0-34.0) pg MCHC (32.0-36.0) g/dL RDW Std Deviation (36.4-46.3) fL RDW Coeff of Sumaya (11.5-14.5) % Plt Count (130-400) K/uL MPV (9.4-12.4) fL Immature Gran % (Auto) % Neut % (Auto) % Lymph % (Auto) % [place] % (Auto) % Eos % (Auto) % Baso % (Auto) % Neut # (Auto) (1.40-6.50) K/uL Lymph # (Auto) (1.20-3.40) K/uL [place] # (Auto) (0.11-0.59) K/uL Eos # (Auto) (0.00-0.50) K/uL Baso # (Auto) (0.00-0.20) K/uL Immature Gran # (Auto) (0.01-0.20) K/uL PT (9.0-12.0) Seconds INR (0.9-1.1) APTT (21-31) Seconds PTT Ratio Sodium (136-145) mmol/L Potassium (3.5-5.1) mmol/L Chloride (98-107) mmol/L Carbon Dioxide (21-32) mmol/L Anion Gap (3-11) BUN (6-23) mg/dl Creatinine (0.6-1.2) mg/dl Est Cr Clr Drug Dosing ml/min Est GFR ( Amer) ml/min Est GFR (Non-Af Amer) ml/min BUN/Creatinine Ratio (10-20) Glucose (70-99(Fasting)) mg/dl Lactate (0.4-2.0) mmol/L Calcium (8.6-10.3) mg/dl Magnesium (1.7-2.4) mg/dl Total Bilirubin (0.2-1.0) mg/dl Direct Bilirubin (0-0.2) mg/dl AST (13-39) U/L ALT (7-52) U/L Alkaline Phosphatase (34-104) U/L Troponin I High Sens (0-14) pg/ml Total Protein (6.0-8.3) gm/dl Albumin (3.4-5.0) gm/dl Procalcitonin (0-0.5) ng/ml Urine Color Urine Appearance (Clear) Urine pH (4.5-7.5) Ur Specific [place] (1.000-1.030) Urine Protein (Negative) Urine Glucose (UA) (Negative) Urine Ketones (Negative) Urine Blood (Negative) Urine Nitrite (Negative) Urine Bilirubin (Negative) Urine Urobilinogen (Negative) Ur Leukocyte Esterase (Negative) Urine WBC (Auto) (0-5) /hpf Urine RBC (Auto) (0-2) /hpf U Hyaline Cast (Auto) (0-2) /lpf U Epithel Cells (Auto) (0-2) /hpf Urine Bacteria (Auto) (None Seen) Nasal Screen MRSA (PCR) (Negative) SARS-CoV-2 (PCR) (Negative) Influenza Type A (PCR) (Neg) Influenza Type B (PCR) (Neg) RSV (RT-PCR) (Neg) Blood Type A Positive Antibody Screen NEGATIVE Crossmatch See Detail Administered Medications Piperacillin Sod/Tazobactam (Sod 4.5 gm/ Dextrose) 100 mls @ 25 mls/hr IV Q8H NASRA; Protocol Stop: 05/05/24 20:59 Last Infusion: 04/26/24 08:51 Dose: Infused Documented By: Admin: 04/26/24 04:56 Dose: 25 mls/hr Documented By: Infusion: 04/26/24 00:24 Dose: Infused Documented By: Admin: 04/25/24 20:45 Dose: 25 mls/hr Documented By: JENARO Vancomycin HCl 1,250 mg/ (Sodium Chloride) 275 mls @ 200 mls/hr IV Q24H NASRA Stop: 05/06/24 08:59 Last Infusion: 04/26/24 09:24 Dose: Infused Documented By: Admin: 04/26/24 08:07 Dose: 200 mls/hr Documented By: KATHY Parenteral Electrolytes (Plasma-Lyte A Ph 7.4) 1,000 mls @ 80 mls/hr IV .[id number] NASRA Stop: 05/25/24 17:44 Last Infusion: 04/26/24 09:56 Dose: 0 mls/hr Documented By: Admin: 04/26/24 05:01 Dose: 80 mls/hr Documented By: Infusion: 04/26/24 05:01 Dose: Infused Documented By: Admin: 04/25/24 17:48 Dose: 80 mls/hr Documented By: KATHY Lactated Ringer's (Lr) 1,000 mls @ 15 mls/hr IV .Q24H NASRA Stop: 05/26/24 09:59 Last Admin: 04/26/24 09:53 Dose: 15 mls/hr Documented By: TANNER Insulin Aspart (Insulin Aspart Per Unit Charge) 0 units SC Q6 NASRA Stop: 05/25/24 17:59 Last Admin: 04/26/24 04:57 Dose: Not Given Documented By: Admin: 04/26/24 00:24 Dose: 1 units Documented By: JENARO Co-signed By: RALPH Admin: 04/25/24 20:46 Dose: 5 units Documented By: JENARO Co-signed By: CELE Discontinued Medications Hydrocortisone Sodium Succinate (Hydrocortisone Sod Succinate 100 Mg/2 Ml Vial) 100 mg IV NOW STA Stop: 04/25/24 14:06 Last Admin: 04/25/24 14:27 Dose: 100 mg Documented By: MADDIE Sodium Chloride (Nss) 1,000 mls @ 999 mls/hr IV .Q1H1M NASRA Stop: 04/25/24 11:45 Last Infusion: 04/25/24 14:50 Dose: Infused Documented By: Admin: 04/25/24 12:11 Dose: 999 mls/hr Documented By: MADDIE Vancomycin HCl 1,500 mg/ (Sodium Chloride) 530 mls @ 200 mls/hr IV NOW ONE Stop: 04/25/24 14:32 Last Infusion: 04/25/24 16:15 Dose: Infused Documented By: Admin: 04/25/24 13:15 Dose: 200 mls/hr Documented By: MADDIE Cefepime HCl (Maxipime) 2,000 mg in 20 mls @ 5 mls/min IV NOW STA Stop: 04/25/24 11:58 Last Admin: 04/25/24 12:11 Dose: 5 mls/min Documented By: MADDIE Metronidazole (Flagyl) 500 mg in 100 mls @ 100 mls/hr IV NOW STA; Protocol Stop: 04/25/24 14:14 Last Infusion: 04/25/24 16:15 Dose: Infused Documented By: Admin: 04/25/24 14:27 Dose: 100 mls/hr Documented By: MADDIE Sodium Chloride (Nss) 1,000 mls @ 999 mls/hr IV .Q1H1M ONE Stop: 04/25/24 14:49 Last Infusion: 04/25/24 14:50 Dose: Infused Documented By: Admin: 04/25/24 14:10 Dose: 999 mls/hr Documented By: MADDIE Norepinephrine Bitartrate (Levophed/D5w) 4 mg in 250 mls @ 15.075 mls/hr IV .[id number] NSARA; Protocol Stop: 05/25/24 14:14 Last Admin: 04/26/24 05:03 Dose: Not Given Documented By: Admin: 04/25/24 17:04 Dose: Not Given Documented By: KATHY Hydrocortisone Sodium (Succinate 50 mg/ Syringe) 1 mls @ 4 mls/min IV Q8H NASRA Stop: 05/25/24 19:59 Last Admin: 04/26/24 04:56 Dose: 4 mls/min Documented By: Admin: 04/25/24 20:47 Dose: 4 mls/min Documented By: JENARO Piperacillin Sod/Tazobactam (Sod 4.5 gm/ Dextrose) 100 mls @ 200 mls/hr IV NOW ONE; Protocol Stop: 04/25/24 17:14 Last Infusion: 04/25/24 17:32 Dose: Infused Documented By: Admin: 04/25/24 16:59 Dose: 200 mls/hr Documented By: KATHY Cabrera (Stat Iv Infusion Titration Per Protocol) 1 each N/A NOW STA Stop: 04/25/24 14:06 Last Admin: 04/25/24 17:04 Dose: Not Given Documented By: KATHY Cabrera (Icu Protocol For Hyperglycemia) 1 each N/A ACHS NASRA Stop: 04/27/24 16:29 Last Admin: 04/25/24 17:03 Dose: Not Given Documented By: KATHY Ondansetron HCl (Ondansetron Inj 2 Mg/Ml 2 Ml Vial) 4 mg IV NOW STA Stop: 04/25/24 10:44 Last Admin: 04/25/24 11:14 Dose: 4 mg Documented By: [facility] [place] Imaging Data Radiologist's Impression: Chest X-Ray 04/25/24 10:41 XR chest 1V portable HISTORY: Sepsis COMPARISON: Chest 01/13/2024. FINDINGS: No pneumothorax. No pleural effusions. The cardiac silhouette remains mildly enlarged. There are calcifications within the mitral annulus. No focal lung consolidations to suggest a pneumonia. No evidence for pulmonary edema. No acute fractures. IMPRESSION: No significant change compared to the prior study. No acute process. ACT 112: Negative or not required by law. Electronically signed by: Sonny Moody M.D. 04/25/2024 11:[address] 04/25/24 10:[address] DOSE: HISTORY: Altered mental status, on eliquis TECHNIQUE: Multiaxial CT images of the head were performed without the use of intravenous contrast. Automated exposure control was utilized for this study. A dose lowering technique was utilized adhering to the principles of ALARA. Comparison: Head CT 11/07/2022. Findings: Mild mucosal thickening within the right maxillary sinus. The mastoid air cells are clear. The calvarium and skull base are intact. There is no mass, hematoma, midline shift, acute infarct. White matter hypodensity is nonspecific but suggestive of microvascular ischemic change. The ventricles and sulci demonstrate mild age-related involutional changes. There is an old lacunar infarct within the left basal ganglia, unchanged. There is a punctate calcification within the left parietal lobe. Impression: No significant change compared to the prior study. No acute intracranial abnormality. ACT 112: Negative or not required by law. Electronically signed by: Sonny Moody M.D. 04/25/2024 12:49 PM Abdomen/Pelvis CT 04/25/24 12:[address] WITHOUT CONTRAST CT DOSE: 1999.46 mGy.cm HISTORY: abdominal distension TECHNIQUE: Multiaxial CT images of the abdomen and pelvis were performed without contrast. A dose lowering technique was utilized adhering to the principles of ALARA. COMPARISON STUDY: Abdomen and pelvis CT 02/27/2023. FINDINGS: Mild dependent changes seen within the lung bases. There is a small amount of scattered pneumoperitoneum identified. This is secondary to the suspected perforated acute sigmoid diverticulitis at the mid sigmoid colon. The pericolonic inflammatory change surrounds the mid sigmoid colon. There are a few loculated gas and fluid collections within the pelvis consistent with abscesses. The pericolonic abscess inferior to the mid sigmoid colon measures 5.5 x 4.0 cm. There is also 4.8 x 4.4 cm abscess within the pelvic cul-de-sac. There is a 6.8 x 1.3 cm abscess along the right deep pelvis on image 283. These abscesses may connect. No dilated loops of bowel to suggest an obstruction. Normal appendix. Hysterectomy. Mild bladder wall thickening. This may be reactive. No evidence for a bladder fistula at this time. L3-S1 posterior decompression and fusion again noted. There are healing bilateral anterior rib fractures. No acute fractures identified. There is an old moderate inferior endplate compression fracture at T12, unchanged. There is mild cardiomegaly. Mild hepatic steatosis. Prior cholecystectomy. The unenhanced pancreas, spleen, and adrenal glands unremarkable. There is a punctate cortical calcification within the right kidney. No renal or ureteral calculi. No hydronephrosis. No retroperitoneal lymphadenopathy. Calcified plaque within the normal caliber abdominal aorta. IMPRESSION: 1. Perforated acute sigmoid diverticulitis as described above with a small amount of pneumoperitoneum and pericolonic abscesses. 2. Mild bladder wall thickening. This is likely reactive to the acute diverticulitis. No evidence for a fistula. 3. No evidence for bowel obstruction. 4. Normal appendix. 5. Additional findings as described above. ACT 112: Negative or not required by law. Electronically signed by: Sonny Moody M.D. 04/25/2024 1:00 PM Discharge Plan Visit Data Chief Complaint: Illness Stated Complaint: AB PAIN ED Provider: Jessee Malik Discharge Problem: Perforated diverticulum, Diverticulitis of sigmoid colon, Severe sepsis, Pelvic abscess in female Patient Disposition: Admitted As Inpatient Discharge Instructions Interventions: ED Discharge Assessment Last Done: 04/25/24 16:43
--- OUTSIDE RECORDS SUMMARY | 2024-04-25 10:44 | External Medical Summary | Summary of Care ---
Author Name Unknown Organization [facility] Address [address] [place] [address] Phone [phone] Care Team Providers Care Loading Unit Operator Name Role Phone Vladislav Brice MD Primary Care Provider + Encounter Details Date Type Department Care Team (Late st Contact Info) Description 04/23/2024 Orders Only General Internal Medicine [facility] [address] [facility] [place] [id number] Vladislav Brice MD [address] [place] [address] Allergies Active Allergy Reactions Criticality Noted Date Comments Methenamine High 01/08/2023 Other Reaction(s): Swelling of Lip/Tongue/Throat Morphine Low 03/24/2023 Other Reaction(s): Nausea Nitrofurantoin High 10/31/2017 Severe headache Other Reaction(s): HEADACHE Oxycodone Other (Please comment) Low 04/02/2022 Other Reaction(s): Drowsy Statins 08/07/2017 Myalgia Tetracycline High 04/02/2022 Other Reaction(s): Facial rash, RASH ON FACE documented as of this encounter (statuses as of 04/23/2024) Medications Medication Sig Dispensed Refills Start Date End Date Status ONETOUCH DELICA LANCETS 33G MISC As needed 11/10/2015 Active Glucose Blood In Vitro Strip As directed 11/10/2015 Active Furosemide 20 MG Oral Tablet (Lasix) Take 1 Tablet by mouth 2 times a day as needed. Active Magnesium Oxide 500 MG Oral Capsule Take 1 Tablet by mouth at bedtime as needed. Active Omeprazole 20 MG Oral Capsule Delayed Release (PriLOSEC) Take 1 Capsule by mouth in the morning. 90 Capsule 3 09/18/2023 Active Exel Comfort Point Pen Needle 31G X 6 MM (Insulin Pen Needle) As directed 100 Each 10 09/18/2023 Active Amiodarone HCl 200 MG Oral Tablet (Cordarone) take 1 tablet by mouth at bedtime 90 Tablet 3 09/21/2023 Active Eliquis 5 MG Oral Tablet (Apixaban) take 1 tablet by mouth twice a day 180 Tablet 3 09/21/2023 Active Metoprolol Succinate ER 100 MG Oral Tablet Extended Release 24 Hour (toPROL XL) Take 1 Tablet by mouth in the morning and 1 Tablet before bedtime. 180 Tablet 3 09/25/2023 Active Sulfamethoxazole-Tr imethoprim 800-160 MG Oral Tablet (Bactrim DS) Take one tablet by mouth daily 90 Tablet 3 09/28/2023 Active Ozempic (0.25 or 0.5 MG/DOSE) 2 MG/3ML Solution Pen-injector (Semaglutide(0.25 or 0.5MG/DOS)) inject 0.5 mg under the skin once every 7 days 9 mL 3 10/07/2023 Active Additional Information Patient taking differently:SubcutaneousQWEEK, Mondays, Reported on 10/21/2023 Metamucil Fiber Oral Tablet Chewable Take 2 Tablets by mouth every afternoon. Active Insulin Glargine Solostar 100 UNIT/ML Subcutaneous Solution Pen-injector (Lantus SoloStar) Inject 5 unit (0.05 mL) subcutaneously into the abdomen at bedtime 15 mL 3 11/05/2023 Active Gabapentin 300 MG Oral Capsule (Neurontin) Take two capsules by mouth once daily before bed. 180 Capsule 3 11/24/2023 Active Vitamin D3 1000 UNIT Oral Capsule (Cholecalciferol) Take 1 Capsule by mouth daily. Active Acidophilus Oral Capsule Take 1 Capsule by mouth daily. Active Ibuprofen 200 MG Oral Tablet (Advil) Take 3 Tablets by mouth in the morning. Active traMADol HCl 50 MG Oral Tablet (Ultram) Take 1 Tablet by mouth every 4 hours as needed for Pain, Severe. Active Levothyroxine Sodium 112 MCG Oral Tablet (Levoxyl)Indication s:Acquired hypothyroidism Take 1 Tablet by mouth daily first thing in the morning. (at least 30 min prior to breakfast or other meds) 90 Tablet 03/19/2024 Active predniSONE 5 MG Oral Tablet (Deltasone)Indicati ons:Rheumatoid arthritis of multiple sites without rheumatoid factor (HCC) Take 1 Tablet by mouth daily. 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 90 Tablet 1 03/24/2024 Active documented as of this encounter (statuses as of 04/23/2024) Active Problems Problem Noted Date Diagnosed Date Chronic kidney disease, stage 3b 06/23/2023 Overview: Per CKD protocol Type 2 diabetes mellitus wit h hemoglobin A1c goal of less than 7.5% 05/21/2023 PAF (paroxysmal atrial fibrillation) 05/21/2023 Acquired hypothyroidism 05/21/2023 Essential hypertension with goal blood pressure less than 130/80 05/21/2023 Recurrent UTI 05/21/2023 Iron deficiency anemia 05/21/2023 Spinal stenosis of lumbar re gion with neurogenic claudication 11/10/2018 Encounter for long-term (current) use of medicat ions 08/20/2016 Rheumatoid arthritis of [facility] without rheumatoid factor 08/07/2016 Restless legs 04/18/2016 documented as of this encounter (statuses as of 04/23/2024) Resolved Problems Problem Noted Date Diagnosed Date Resolved Date Arthritis, rheumatoid 03/14/20102009 ARTHRITIS,RHEUMATOID (seronegative) 03/14/2010 08/07/2016 Diabetes mellitus 05/21/2023 documented as of this encounter (statuses as of 04/23/2024) Immunizations Name Administration Dates Next Due COVID-19 mRNA, LNP-s, No Pre serve, 2-Dose Series (Abril) 09/26/2021,01/05/2021,12/15/2020,11/23 COVID-19, MRNA-LNP, 23-24, P F, 30 MCG/0.3 mL, 12 YRS AND ABOVE, IM ([facility]) 07/10/2023 Covid-19, Mrna, Lnp-s, Pf, B ivalent, 30 Mcg, IM, 12 yrs and above (Pfizer) 10/08/2022 Pneumococcal Polysaccharide PPV23 (Pneumovax) 11/03/2018,05/28/2010 Seasonal Influenza, Quadriva lent Hd, 65+ Yrs 07/16/2021,08/31/2020 Seasonal Influenza, Quadriva lent, No Preserve, IM 08/02/2019 Seasonal Influenza, Split, I IV3, No Preserve, Inj 10/14/2012 Seasonal Influenza, Split, I IV3, With Preserve, Inj 06/30/2018,08/13/2017,06/27/2014,09/03(Deferred: Patient Refused),10/14/2012,07/13/2010 TDAP (age 10 and older)(Boostrix) 10/18/2021 documented as of this encounter Social History Tobacco Use Types Packs/Day Years Used Date Smoking Tobacco: Never Smokeless Tobacco: Never Alcohol Use Standard Drinks/Week Comments No 0 (1 standard drink = 0.6 oz pur e alcohol) Utilities Answer Date Recorded Do you have trouble paying y our heating, water, or electric bill? (Adult - for ages 18 years and over) Not on file 03/30/2024 Is your family able to pay t he heat, water, or electric bill? (Household - for ages 0-17 years) Not on file 03/30/2024 Does your family have access to good internet? (Household - for ages 0-17 years) Not on file 03/30/2024 Social Connections Answer Date Recorded How often do you feel lonely or isolated from those around you? (Adult - for ages 18 years and over) Not on file 03/30/2024 Sex and Gender Information Value Date Recorded Sex Assigned at Female 09/02/2023 7:50 PM EST Gender Identity Female 09/02/2023 7:50 PM EST Sexual Orientation Straight 09/02/2023 7: 50 PM EST Job Start Date Occupation Industry Not on file Not on file Not on file documented as of this encounter Plan of Treatment Upcoming Encounters Date Type Department Care Team (Late st Contact Info) Description 05/10/2024 11:00 AM EDT Imaging Radiology, [address] [place], [place] [id number] 08/03/2024 3:00 PM EDT Office Visit Rheumatology [facility] [address] [place] [address] Chevy Gallegos CRNP [address] [place] [address] Scheduled Procedures Name Priority Associated Diagnoses Date/Ti me COLONOSCOPY FLEXIBLE PROXIMA L DIAGNOSTIC Recall History of colonic polyps Health Maintenance Due Date Last Done Comments Depression Screening 1967 Albumin/Creatinine Ratio 1973 CKD PHOS USE SMARTSET 59740 1973 Diabetic Foot Exam 1973 Cologuard 01/05/2000 Fecal Occult Blood Test 01/05/2000 Sigmoidoscopy 01/05/2000 Zoster Vaccines (1 of 2) 2005 TSH 04/22/2012 04/22/2011 Pneumococcal Vaccine: 65+ Years (2 of 2 - PCV) 11/03/2019 11/03/2018, 05/28/2010 HbA1c 05/15/2023 11/15/2022 COVID-19 Vaccine (2022- season) 2023 07/10/2023, 10/08/2022, 09/26/2021, Additional history exists Influenza Vaccine (FLU shot) (#1) 2024 07/16/2021, 08/31/2020, 08/02/2019, Additional history exists Mammogram 07/21/2024 07/21/2023, 07/21/2023 GFR 10/22/2024 04/21/2024, 0601/2024, 09/12/2023, Additional history exists Diabetic Eye Exam 11/20/2024 11/20/2023, , 09/02/2022 CKD HGB USE SMARTSET 75120 04/21/202504/21, 04/21/2024, 03/26/2024, Additional history exists Colonoscopy 10/29/2026 10/29/2023, 10/29/2023 Colorectal Cancer Screening 10/29/2026 DXA Scan 07/05/2027 07/05/2020, 09/16/2016 Lipid Panel 11/15/2027 11/15/2022 DTaP,Tdap,and Td Vaccines (2 - Td or Tdap) 10/18/2031 10/18/2021 HPV (Gardasil) Vaccine Aged Out No lo nger eligible based on patient's age to complete this topic Hepatitis B Vaccine Aged Out No longe r eligible based on patient's age to complete this topic MENINGOCOCCAL (MENACTRA/MENVEO) Aged Out No longer eligible based on patient's age to complete this topic documented as of this encounter Medical Devices Implanted Type Area Neurology Physician Device Identifier Shelf Expiration Date Model / Serial / Lot Clip Hemostatic [id number] 2.8mm St Latexfree Radiopaque - [id number] Implanted:Qty: 3 on 10/29/2023 by Diya Miranda DO at ENDOSCOPY [facility] : ENDOSCOPY 04/24/2026 [id number] / / documented as of this encounter Procedures Procedure Name Priority Date/Time Associated Diagnosis Comments CHEMISTRY-OUTSIDE Routine 03/26/2024 documented in this encounter Results * (ABNORMAL) CHEMISTRY-OUTSIDE (03/26/2024) Not all results display below - see scan for full detail OUTSIDE LAB (SEE SCANNED REPORT) Comment:SEE SCAN - CBCD, CMP , FE, FERRITIN CREATININE-OUTSID E LAB 1.52(A) 0.6 - 1.2 MG/DL OUTSIDE LAB (SEE SCANNED REPORT) EGFR-OUTSIDE LAB 34.6 ML/MIN OUT SIDE LAB (SEE SCANNED REPORT) POTASSIUM-OUTSIDE LAB 4.0 3.5 - 5.1 MMOL/L OUTSIDE LAB (SEE SCANNED REPORT) GLUCOSE-OUTSIDE LAB 114(A) 70 - 99 MG/DL OUTSIDE LAB (SEE SCANNED REPORT) HOURS FASTING OUTSID E LAB (SEE SCANNED REPORT) TRIGLYCERIDES-OUT SIDE LAB OUTSIDE LAB (SEE SCANNED REPORT) CHOLESTEROL-OUTSI DE LAB OUTSIDE LAB (SEE SCANNED REPORT) HDL-OUTSIDE LAB OUTS [facility] (SEE SCANNED REPORT) CHOL/HDL RATIO-OUTSIDE LAB OUTSIDE LA B (SEE SCANNED REPORT) LDL (CALCULATED)-OUTS [facility] LAB OUTSIDE LAB (SEE SCANNED REPORT) LDL (DIRECT MEASURE)-OUTSIDE LAB OUTSIDE LAB (SEE SCANNED REPORT) HEMOGLOBIN, R0X-MFROOPM LAB OUTSIDE LAB (SEE SCANNED REPORT) PHOSPHORUS-OUTSID E LAB OUTSIDE LAB (SEE SCANNED REPORT) PTH-OUTSIDE LAB OUTS [facility] (SEE SCANNED REPORT) MICROALBUMIN RATIO-OUTSIDE LAB OUTSIDE LA B (SEE SCANNED REPORT) PROTEIN, UA-OUTSIDE LAB OUTSIDE LAB (SEE SCANNED REPORT) HGB 10.2(A) 12.0 - 16.0 G/DL OUTSIDE LAB (SEE SCANNED REPORT) 03/26/2024 Mirta Dumont PA-C LABORATORY OUTSIDE LAB (SEE SCANNED REPORT) documented in this encounter Care Teams Loading Unit Operator Relationship Specialty Start Date End Date Vladislav Brice MD [address] [facility] [place], [place] [address] PCP - General Internal Medicine 05/21/23 documented as of this encounter
--- OUTSIDE RECORDS SUMMARY | 2024-04-25 10:44 | External Medical Summary | Summary of Care ---
Author Name Unknown Organization [facility] Address [address] [place] [address] Phone [phone] Care Team Providers Care Pre Sales Technical Engineer Name Role Phone Vladislav Brice MD Primary Care Provider + Encounter Details Date Type Department Care Team ([facility] st Contact Info) Description 01/30/2024 Result Scan Unspecified Department <No scans attached> Allergies Active Allergy Reactions Criticality Noted Date [...] before bedtime. 180 Tablet 3 09/25/2023 Active Sulfamethoxazole-T rimethoprim 800-160 MG Oral Tablet (Bactrim DS) Take [...] hours as needed for Pain, Severe. Active documented as of this encounter (statuses [...] of medicat ions 08/20/2016 Rheumatoid arthritis of mult iple sites without rheumatoid factor 08/07/2016 Restless legs 04/18/2016 documented as of this encounter (statuses as of 04/23/2024) Resolved Problems Problem Noted Date Diagnosed Date Resolved Date Arthritis, rheumatoid 03/14/20102009 ARTHRITIS,RHEUMATOID (seronegative) 03/14/2010 08/07/2016 Diabetes mellitus 05/21/2023 documented as of this encounter (statuses as of 04/23/2024) Immunizations Name Administration Dates Next Due COVID-19 mRNA, LNP-s, No Pre serve, 2-Dose Series ([facility]) 09/26/2021,01/05/2021,12/15/2020,11/23 COVID-19, MRNA-LNP, 23-24, P F, 30 MCG/0.3 mL, 12 YRS AND ABOVE, IM ([facility]) 07/10/2023 Covid-19, Mrna, Lnp-s, Pf, B ivalent, 30 Mcg, IM, 12 yrs and above ([facility]) 10/08/2022 Pneumococcal Polysaccharide PPV23 (Pneumovax) 11/03/2018,05/28/2010 Seasonal [...] Description 05/10/2024 11:00 AM EDT Imaging Radiology, [place] [address] [facility] [place] [address] 08/03/2024 3:00 PM EDT Office Visit Rheumatology [place] [address] [facility] [place] [address] Chevy Gallegos CRNP [address] [place] [address] [place] [address] Scheduled Procedures Name Priority Associated Diagnoses Date/Ti me COLONOSCOPY FLEXIBLE PROXIMA L DIAGNOSTIC Recall History of colonic polyps Health Maintenance Due Date Last Done Comments Depression Screening 1967 Albumin/Creatinine Ratio 1973 CKD PHOS USE SMARTSET 81751 1973 Diabetic Foot Exam 1973 Cologuard 01/05/2000 [...] Mammogram 07/21/2024 07/21/2023, 07/21/2023 GFR 10/22/2024 04/21/2024, 03/13, 09/12/2023, Additional history exists Diabetic Eye Exam 11/20/2024 11/20/2023, , 09/02/2022 CKD HGB USE SMARTSET 16905 04/21/202504/21, 04/21/2024, 03/26/2024, Additional history exists Colonoscopy [...] this encounter Medical Devices Implanted Type Area [employer] Hand Device Identifier Shelf Expiration Date Model / Serial / Lot Clip Hemostatic [id number] 2.8mm St Latexfree Radiopaque - [id number] Implanted:Qty: 3 on 10/29/2023 by Diya Miranda DO at ENDOSCOPY [facility] : ENDOSCOPY 04/24/2026 [id number] / / documented as of this encounter Procedures Procedure Name Priority Date/Time Associated Diagnosis Comments RADIOLOGY SCANNED RESULT 01/30/2024 documented in this encounter Results * RADIOLOGY SCANNED RESULT (01/30/2024) 01/30/2024 No Physician Data Unknown DIAGNOSTIC RAD IOLOGY SERVICES documented in this encounter Care Teams Pre Sales Technical Engineer Relationship Specialty Start Date End Date Vladislav Brice MD [address] [place] [address] PCP - General Internal Medicine 05/21/23 documented as of this encounter
--- OUTSIDE RECORDS SUMMARY | 2024-04-25 10:44 | External Medical Summary | Summary of Care ---
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 08/07/2016 Restless legs 04/18/2016 documented as of this encounter (statuses as of 04/23/2024) Resolved Problems Problem Noted Date Diagnosed Date Resolved Date Arthritis, rheumatoid 03/14/20102009 ARTHRITIS,RHEUMATOID (seronegative) 03/14/2010 08/07/2016 Diabetes mellitus 05/21/2023 documented as of this encounter (statuses as of 04/23/2024) Immunizations Name Administration Dates Next Due COVID-19 mRNA, LNP-s, No Pre serve, 2-Dose Series ([facility]) 09/26/2021,01/05/2021,12/15/2020,11/23 COVID-19, MRNA-LNP, 23-24, P F, 30 MCG/0.3 mL, 12 YRS AND ABOVE, IM ([facility]) 07/10/2023 Covid-19, Mrna, Lnp-s, Pf, B ivalent, [...] on file documented as of this encounter Progress Notes * Dorys Mcknight, [facility] - 04/23/2024 10:05 AM EDT Daniela Champagne is a 69 year old female. TMR Interventions TMR Drug Therapy - Statin (Diabetes): No statin claims Incomplete Encounter MTPs No medication therapy recommendations to display Complete Encounter MTPs Referred for management of medication therapy Rationale: Untreated condition - Needs additional medication therapy - Indication Recommendation: Continue to Monitor Status: No Longer Relevant Note: statin allergy Assessment & Plan Indication, effectiveness, safety and convenience of her medications were reviewed today. The patient's medical conditions were assessed, evaluated, and deemed meeting goals of drug therapy, with thefollowing exceptions. Additional Notes: N/a Dorys Mcknight RPh 04/23/2024, 10:05 AM documented in this encounter Plan of Treatment Upcoming Encounters Date Type Department Care Team (Late st Contact Info) Description 05/10/2024 11:00 AM EDT [place] [address] [place] [address] 08/03/2024 3:00 PM EDT [facility] [place] [address] Chevy Gallegos CRNP Formerly named [facility] [employer] [place] [address] Scheduled Procedures Name Priority Associated Diagnoses Date/Ti me COLONOSCOPY FLEXIBLE PROXIMA L DIAGNOSTIC Recall History of colonic polyps Health Maintenance Due Date Last Done Comments Depression Screening 1967 Albumin/Creatinine Ratio 1973 CKD PHOS USE SMARTSET 65064 1973 Diabetic Foot Exam 1973 Cologuard 01/05/2000 Fecal Occult Blood Test 01/05/2000 Sigmoidoscopy 01/05/2000 Zoster Vaccines (1 of 2) 2005 TSH 04/22/2012 04/22/2011 Pneumococcal Vaccine: 65+ Years (2 of 2 - PCV) 11/03/2019 11/03/2018, 05/28/2010 HbA1c 05/15/2023 11/15/2022 COVID-19 Vaccine ( season) 2023 07/10/2023, 10/08/2022, 09/26/2021, Additional history exists Influenza Vaccine (FLU shot) (#1) 2024 07/16/2021, 08/31/2020, 08/02/2019, Additional history exists Mammogram 07/21/2024 07/21/2023, 07/21/2023 GFR 10/22/2024 04/21/2024, 12/0 10/2022, 05/05/2023, Additional history exists Diabetic Eye Exam 11/20/2024 11/20/2023, , 09/02/2022 CKD HGB USE SMARTSET 14489 04/21/202504/21, 04/21/2024, 09/12/2023, Additional history exists Colonoscopy 10/29/2026 10/29/2023, 10/29/2023 [...] this encounter Medical Devices Implanted Type Area [employer]cher All Round Device Identifier Shelf Expiration Date Model / Serial / Lot Clip Hemostatic [id number] 2.8mm St Latexfree Radiopaque - [id number] Implanted:Qty: 3 on 10/29/2023 by Diya Miranda DO at ENDOSCOPY [facility] : ENDOSCOPY 04/24/2026 [id number] / / documented as of this encounter Visit Diagnoses Diagnosis Referred for management of medication therapy- Primary Encounter for long-term (current) use of other medications documented in this encounter Care Teams Manager Fire Relationship Specialty Start Date End Date Vladislav Brice MD [address] [place] [address] PCP - General Internal Medicine 05/21/23 documented as of this encounter
--- OUTSIDE RECORDS SUMMARY | 2024-04-25 10:45 | External Medical Summary | Summary of Care ---
Author Name Unknown Organization [facility] Address [address] [address] Phone [phone] Care Team Providers Care Banquet Houseperson Name Role Phone Vladislav Brice MD Primary Care Provider + Reason for Visit * Reason Onset Date Comments Medication Pre-auth 04/01/2024 Avsola Encounter Details Date Type Department Care Team (Late st Contact Info) Description 04/01/2024 Telephone Rheumatology [facility] [address] [place] [address] Chevy Gallegos CRNP [address] [place] [address] Medication Pre-auth (Avsola) Allergies Active Allergy Reactions Criticality Noted Date Comments Methenamine High 01/08/2023 Other Reaction(s): Swelling of Lip/Tongue/Throat Morphine Low 03/24/2023 Other Reaction(s): Nausea Nitrofurantoin High 10/31/2017 Severe headache Other Reaction(s): HEADACHE Oxycodone Other (Please comment) Low 04/02/2022 Other Reaction(s): Drowsy Statins 08/07/2017 Myalgia Tetracycline High 04/02/2022 Other Reaction(s): Facial rash, RASH ON FACE documented as of this encounter (statuses as of 04/22/2024) Medications Medication Sig Dispensed Refills Start Date [...] as of this encounter (statuses as of 04/22/2024) Active Problems Problem Noted Date Diagnosed Date [...] of medicat ions 08/20/2016 Rheumatoid arthritis of [place] sites without rheumatoid factor 08/07/2016 Restless legs 04/18/2016 documented as of this encounter (statuses as of 04/22/2024) Resolved Problems Problem Noted Date Diagnosed Date Resolved Date Arthritis, rheumatoid 03/14/20102009 ARTHRITIS,RHEUMATOID (seronegative) 03/14/2010 08/07/2016 Diabetes mellitus 05/21/2023 documented as of this encounter (statuses as of 04/22/2024) Immunizations Name Administration Dates Next Due COVID-19 mRNA, LNP-s, No Pre serve, 2-Dose Series (EntrenaYa) 09/26/2021,01/05/2021,12/15/2020,11/23 COVID-19, MRNA-LNP, 23-24, P F, 30 MCG/0.3 mL, 12 YRS AND ABOVE, IM (PFIZER-Comirnaty) 07/10/2023 Covid-19, Mrna, Lnp-s, Pf, B ivalent, [...] on file documented as of this encounter Miscellaneous Notes * Telephone Encounter - Cee Mccormack LPN - 04/14/2024 1:23 PM EDT Faxed to [facility] along with auth info. They will call pt to schedule. * Telephone Encounter - Chevy Gallegos CRNP - 04/14/2024 1:04 PM EDT Infliximab order written and signed. Please faxed to [facility]. * Telephone Encounter - Domenica López [facility] - 04/14/2024 11:11 AM EDT Rheum Nurses: It has been changed to the correct facility now. You may want to print out the New Supportive Care Plan order AND the referral for Avsola and fax it to them so that they are aware * Telephone Encounter - Domenica López RP - 04/13/2024 2:01 PM EDT [facility]: Can infusion location be changed? [facility], NPI #[id number], tax [place] [id number] address [address] [facility],[address] ph [phone] * Telephone Encounter - Cee Mccormack LPN - 04/13/2024 10:30 AM EDT Can auth be changed to [facility], NPI #[id number], tax [place] [id number] address [address] [facility],[address] ph [phone] * Telephone Encounter - Tiny Tavarez RN - 04/13/2024 9:18 AM EDT Rheum: please follow up with patient. If she decides to schedule infusion here, please route to p [phone]. * Telephone Encounter - Diya Richardson OSA - 04/13/2024 8:08 AM EDT Pt stated that she did NOT want it here at [facility] and that she goes to [facility] for her INF stuff FYI * Telephone Encounter - Sonny Meza RN - 04/12/2024 3:48 PM EDT Noted. Scheduling- please call patient to schedule 4 hour treatment "Avsola" (WILLIAN Sotomayor). * Telephone Encounter - Cee Mccormack LPN - 04/08/2024 1:32 PM EDT Placement Interviewer - Patient Related Communication Reason for Call: Medication Approval Avsola: Katie calling from [facility] Ins to let Chevy Gallegos know that the patient's medication Avsola was approved. Auth # [id number] and effective date ranges are 04/02/2024 to 10/07/2024. LORI Rossi * Telephone Encounter - Cee Mccormack LPN - 04/06/2024 1:47 PM EDT Letter faxed to [facility] at both #'s provided * Telephone Encounter - Sonny Meza RN - 04/05/2024 2:13 PM EDT Will await appeal result prior to scheduling. * Telephone Encounter - Merissa Chung CPhT - 04/05/2024 1:43 PM EDT Images from the original note were not included. Rheumatology Referral: Infusions or Clinic Administered Medications (CAM) Infusion Denied due to see below, sent to pharmacist to address ype Date User Summary Attachment Precert 04/05/2024 1:20 PM Melania Hyde, LORI Denial- Option to appeal if disagree with outcome - Note: Denial- Option to appeal if disagree with outcome . Type Date User Summary Attachment Precert 04/02/2024 11:03 AM Melania Hyde OSA [facility] Authorization Submission Submission Information: Medication: Avsola Portal used: PromptPA Insurance: [employer] Gold Authorization #/Peguero: EOC [id number] - Note: [facility] Authorization Submission Submission Information: Medication: Avsola Portal used: PromptPA Insurance: [employer] Gold Authorization #/Peguero: EOC [id number] Thank you, Merissa Yen [facility] [employer] [facility] ([facility]) 04/05/2024,1:43 PM * Telephone Encounter - Domenica López RPh - 04/05/2024 1:42 PM EDT Appeal Submitted Rheum Nurse: Please fax an appeal has been submitted in "Letter's Tab" for Daniela Champagne's medication Avsola today to F: [phone], (both Fax #s). Will follow-up accordingly at the team's earliest convenience. Domenica López RPh [facility] Clinical Pharmacist Rheumatology/Dermatology Department 04/05/2024,1:42 PM * Telephone Encounter - Domenica López RPh - 04/05/2024 1:39 PM EDT Images from the original note were not included. Denial sent as CC in Chart and was as follows * Telephone Encounter - Sonny Meza RN - 04/02/2024 8:20 AM EDT Orders received, beacon plan built and routed. Awaiting auth. TB completed 09/12/2023 * Telephone Encounter - Chevy Gallegos CRNP - 04/01/2024 3:16 PM EDT New supportive care plan ordered at this time. Thank you, WILLIAN Sotomayor Rheumatology Department * Telephone Encounter - Mirta Mccormack LPN - 04/01/2024 1:00 PM EDT Images from the original note were not included. Melania Hyde, LORI You15 minutes ago (12:44 PM) CT Please have [facility] treatment plan entered along with supportive care plan so referral will generateand prior authorization process can be initiated. Thanks * Telephone Encounter - Chevy Gallegos CRNP - 04/01/2024 11:03 AM EDT Rheumatology Education, Pre-Certification, and/or Pharmacist Co-Management Request Medication Education: yes Pre-Certification: [facility]: Pre-cert for Prednisone, DMARDs & IV/IM/SC Osteoporosis Meds ([facility] rheumatology pharmacist pool p [phone]) Pharmacist Co-Management ([facility] ONLY; [place] select "no"): No Pharmacist Co-Management Medication/Disease State Information: Diagnosis: Rheumatoid arthritis of multiple sites without rheumatoid factor [M06.09] Medication:Infliximab: 3 mg/kg every 0, 2, 6. Then every 8 weeks Failed or Intolerant to or Contraindicated: Humira, Leflunomide, and Methotrexate PO Comments TB and Hepatitis labs up to date Rheumatology Pharmacist Disease Modifying Antirheumatic Drug (DMARD) Co- Management (If Applicable) Minimum frequency patient should be seen in person for medication management: As appropriate per clinical condition and patient status By my signature, I understand that my patient will have medication therapy managed by the [facility]) per established policies, procedures, and protocols. I also certify that this referral may serve as an initiation of service for the management of drug therapy in the above noted patient. [facility] providers will be responsible for scheduling patient visits, obtaining appropriate laboratory studies, and adjusting medication management therapy per patient's need, in addition to those roles spelled out in the clinic policy, procedures, and drug management protocols. I understand that the service provided by the [facility] is voluntary and have informed patient that they can refuse the service at their discretion. I am aware that the [facility] will provide me with a copy of the patient encounter via my [employer] In-Basket. I authorize the [facility] to carryout these activities on my behalf. I consider this program to be a necessary part of the patient's medical care. WILLIAN Lorenzo documented in this encounter Plan of Treatment Upcoming Encounters Date Type Department Care Team (Late st Contact Info) Description 05/10/2024 11:00 AM EDT Imaging Radiology, [address] [place] [address] 08/03/2024 3:00 PM EDT Office Visit Rheumatology [facility] [address] [place] [address] Chevy Gallegos CRNP [address] [place] [address] Scheduled Procedures Name Priority Associated Diagnoses Date/Ti me COLONOSCOPY FLEXIBLE PROXIMA L DIAGNOSTIC Recall History of colonic polyps Health Maintenance Due Date Last Done Comments Depression Screening 1967 Albumin/Creatinine Ratio 1973 CKD PHOS USE SMARTSET 57591 1973 Diabetic Foot Exam 1973 Cologuard 01/05/2000 [...] 11/20/2023, , 09/02/2022 CKD HGB USE SMARTSET 96187 04/21/202504/21, 04/21/2024, 09/12/2023, Additional history exists Colonoscopy [...] this encounter Medical Devices Implanted Type Area Public Health Policy Analyst Device Identifier Shelf Expiration Date Model / Serial / Lot Clip Hemostatic [id number] 2.8mm St Latexfree Radiopaque - [id number] Implanted:Qty: 3 on 10/29/2023 by Diya Miranda DO at ENDOSCOPY [facility] : ENDOSCOPY 04/24/2026 [id number] / / documented as of this encounter Visit Diagnoses Diagnosis Rheumatoid arthritis of multiple sites without rheumatoid factor (HCC)- Primary Rheumatoid arthritis documented in this encounter Care Teams Banquet Houseperson Relationship Specialty Start Date End Date Vladislav Brice MD [address] [place] [address] PCP - General Internal Medicine 05/21/23 documented as of this encounter
--- OUTSIDE RECORDS SUMMARY | 2024-04-25 10:45 | External Medical Summary ---
Author Name Unknown Address Unknown Organization K01:[facility] [address] [facility] [place] [id number] Laboratory Report Ordering Provider Test Date Status MEÑO MOSS 04/21/2024 15:40:34 Final Observation Date Value Abnormality Reference (Units ) Status BUN 04/21/2024 15:40:34 28 Above high normal 6-20 (mg/dL) Final Creatinine 04/21/2024 15:40:34 1.8 Above high normal 0.5-1.0 (mg/dL) Final Glomerular filtration rate/1.73 sq M.predicted [Volume Rate/Area] in Serum, Plasma or Blood by Creatinine-based formula (CKD-EPI) 04/21/2024 15:40:34 30 Below low normal >=60 (mL/min) Final eGFR is calculated based on the CKD-EPI 2020 equation Sodium 04/21/2024 15:40:34 138 135-146 (m mol/L) Final Potassium 04/21/2024 15:40:34 4.8 3.5-5.1 (m mol/L) Final Cl 04/21/2024 15:40:34 98 98-107 (mm ol/L) Final CO2 04/21/2024 15:40:34 23 22-32 (mmo l/L) Final Anion gap 04/21/2024 15:40:34 17 Above high normal 7- 15 (mmol/L) Final Glucose 04/21/2024 15:40:34 144 Above high normal 70 -120 (mg/dL) Final Albumin 04/21/2024 15:40:34 4.3 3.8-5.0 (g /dL) Final AST (Aspartate aminotransferase) 04/21/2024 15:40:34 25 10-35 (U/L) Fin al Alk Phos 04/21/2024 15:40:34 133 Above high normal 35 -130 (U/L) Final Bilirubin, Total 04/21/2024 15:40:34 <0.2 <=1 .2 (mg/dL) Final Calcium 04/21/2024 15:40:34 9.0 8.4-10.2 ( mg/dL) Final Protein 04/21/2024 15:40:34 6.3 6.0-8.3 (g /dL) Final ALT (Alanine aminotransferase) 04/21/2024 15:40:34 25 10-35 (U/L) Sancho pal Performing Location [facility] [address] [facility] [address]
--- OUTSIDE RECORDS SUMMARY | 2024-04-25 10:45 | External Medical Summary | Summary of Care ---
Author Name Unknown Organization [facility] Address [address] [facility] [place] [address] Phone [phone] Care Team Providers Care Child Monitor Name Role Phone Vladislav Brice MD Primary Care Provider + Reason for Visit * Reason Comments Outpatient Testing Encounter Details Date Type Department Care Team (Late st Contact Info) Description 04/21/2024 3:40 PM EDT Laboratory Laboratory, [facility] [address] [facility] [address] [facility] [address] [place] [address] Encounter for long-term (current) use of medications Allergies Active Allergy Reactions Criticality Noted Date Comments Methenamine High 01/08/2023 Other Reaction(s): Swelling of Lip/Tongue/Throat Morphine Low 03/24/2023 Other Reaction(s): Nausea Nitrofurantoin High 10/31/2017 Severe headache Other Reaction(s): HEADACHE Oxycodone Other (Please comment) Low 04/02/2022 Other Reaction(s): Drowsy Statins 08/07/2017 Myalgia Tetracycline High 04/02/2022 Other Reaction(s): Facial rash, RASH ON FACE documented as of this encounter (statuses as of 04/21/2024) Medications Medication Sig Dispensed Refills Start Date [...] as of this encounter (statuses as of 04/21/2024) Active Problems Problem Noted Date Diagnosed Date [...] of medicat ions 08/20/2016 Rheumatoid arthritis of [facility] without rheumatoid factor 08/07/2016 Restless legs 04/18/2016 documented as of this encounter (statuses as of 04/21/2024) Resolved Problems Problem Noted Date Diagnosed Date Resolved Date Arthritis, rheumatoid 03/14/20102009 ARTHRITIS,RHEUMATOID (seronegative) 03/14/2010 08/07/2016 Diabetes mellitus 05/21/2023 documented as of this encounter (statuses as of 04/21/2024) Immunizations Name Administration Dates Next Due COVID-19 mRNA, LNP-s, No Pre serve, 2-Dose Series (Bee Resilient) 09/26/2021,01/05/2021,12/15/2020,11/23 COVID-19, MRNA-LNP, 23-24, P F, 30 [...] Description 05/10/2024 11:00 AM EDT Imaging Radiology, [place] [address] [place] [address] 08/03/2024 3:00 PM EDT Office Visit Rheumatology [address] [place] [address] Chevy Gallegos CRNP [address] [place] [address] [place] [address] Pending Results Name Type Priority Associated Diagnoses Date /Time COMPREHENSIVE METABOLIC PANEL Lab Routine Encounter for long-term (current) use of medications 04/21/2024 3:40 PM EDT Scheduled Procedures Name Priority Associated Diagnoses Date/Ti me COLONOSCOPY FLEXIBLE PROXIMA L DIAGNOSTIC Recall History of colonic polyps Health Maintenance Due Date Last Done Comments Depression Screening 1967 Albumin/Creatinine Ratio 1973 CKD PHOS USE SMARTSET 14319 1973 Diabetic Foot Exam 1973 Cologuard 01/05/2000 Fecal Occult Blood Test 01/05/2000 Sigmoidoscopy 01/05/2000 Zoster Vaccines (1 of 2) 2005 TSH 04/22/2012 04/22/2011 Pneumococcal Vaccine: 65+ Years (2 of 2 - PCV) 11/03/2019 11/03/2018, 05/28/2010 HbA1c 05/15/2023 11/15/2022 COVID-19 Vaccine ( season) 2023 07/10/2023, 10/08/2022, 09/26/2021, Additional history exists GFR 03/13/2024 09/12/2023, 04/13, 11/15/2022, Additional history exists Influenza Vaccine (FLU shot) (#1) 2024 07/16/2021, 08/31/2020, 08/02/2019, Additional history exists Mammogram 07/21/2024 07/21/2023, 07/21/2023 CKD HGB USE SMARTSET 02143 09/12/202404/21, 04/21/2024, 09/12/2023, Additional history exists Diabetic Eye Exam 11/20/2024 11/20/2023, , 09/02/2022 Colonoscopy 10/29/2026 10/29/2023, 10/29/2023 Colorectal Cancer Screening [...] this encounter Medical Devices Implanted Type Area Document Preparer Microfilming Device Identifier Shelf Expiration Date Model / Serial / Lot Clip Hemostatic [id number] 2.8mm St Latexfree Radiopaque - [id number] Implanted:Qty: 3 on 10/29/2023 by Diya Miranda DO at ENDOSCOPY [facility] : ENDOSCOPY 04/24/2026 [id number] / / documented as of this encounter Procedures Procedure Name Priority Date/Time Associated Diagnosis Comments DIFFERENTIAL, AUTOMATED Routine 04/21/2024 3:40 PM EDT Encounter for long-term (current) use of medications CBC Routine 04/21/2024 3:40 PM EDT Encounter for long-term (current) use of medications CBC Routine 04/21/2024 3:40 PM EDT Encounter for long-term (current) use of medications documented in this encounter Results * (ABNORMAL) DIFFERENTIAL, AUTOMATED (04/21/2024 3:40 PM EDT) WBC 10.01 4.00 - 10.80 K/uL 04/21/2024 3:50 PM EDT [facility] [place] [facility] Neutrophils % 78.2(H) 40.0 - 75.0 % 04/21/2024 3:50 PM EDT [facility] [place] [facility] Lymphocytes % 10.4(L) 18.0 - 42.0 % 04/21/2024 3:50 PM EDT [facility] [place] [facility] Monocytes % 8.2 1.0 - 11.0 % 04/21/2024 3:50 PM EDT [facility] [place] [facility] Eosinophils % 2.6 0.0 - 6.0 % 04/21/2024 3:50 PM EDT [facility] [place] [facility] Basophils % 0.6 0.0 - 2.0 % 04/21/2024 3:50 PM EDT [facility] [place] [facility] Absolute Neutrophils 7.83(H) 1.80 - 7.70 K/uL 04/21/2024 3:50 PM EDT [facility] [place] [facility] Absolute Lymphocytes 1.04 1.00 - 4.80 K/ul 04/21/2024 3:50 PM EDT [facility] [place] [facility] Absolute Monocytes 0.82 0.00 - 1.10 K/uL 04/21/2024 3:50 PM EDT [facility] [place] [facility] Absolute Eosinophils 0.26 0.00 - 0.70 K/uL 04/21/2024 3:50 PM EDT [facility] [place] [facility] Absolute Basophils 0.06 0.00 - 0.20 K/uL 04/21/2024 3:50 PM EDT [facility] [place] [facility] [facility] Blood Venous blood specimen / Unknown Venipuncture / Unknown 04/21/2024 3:40 PM EDT 04/21/2024 3:40 PM EDT Chevy DORSEY LAB BLOOD ORDERAB LES [facility] [place] [facility] [place] [address] * (ABNORMAL) CBC (04/21/2024 3:40 PM EDT) [facility] WBC 10.01 4.00 - 10.80 K/uL 04/21/2024 3:50 PM EDT [facility] [place] [facility] RBC 3.58 3.85 - 5.15 M/uL 04/21/2024 3:50 PM EDT [facility] [place] [facility] HGB 10.7(L) 12.0 - 15.3 g/dL 04/21/2024 3:50 PM EDT [facility] [place] [facility] HCT 35.8(L) 36.0 - 45.2 % 04/21/2024 3:50 PM EDT [facility] [place] [facility] [facility] MCV 100.0 81.5 - 97.5 fL 04/21/2024 3:50 PM EDT [facility] [place] [facility] MCH 29.9 27.0 - 34.0 pg 04/21/2024 3:50 PM EDT [facility] [place] [facility] MCHC 29.9 32.0 - 36.0 g/dL 04/21/2024 3:50 PM EDT [facility] [place] [facility] RDW 14.6 11.5 - 15.5 % 04/21/2024 3:50 PM EDT [facility] [place] [facility] PLT 277 140 - 400 K/uL 04/21/2024 3:50 PM EDT [facility] [place] [facility] [facility] MPV 10.1 6.6 - 11.1 fL 04/21/2024 3:50 PM EDT [facility] [place] [facility] Blood Venous blood specimen / Unknown Venipuncture / Unknown 04/21/2024 3:40 PM EDT 04/21/2024 3:40 PM EDT Chevy DORSEY LAB BLOOD ORDERAB LES [facility] [place] [facility] [facility] [facility] [place] [address] documented in this encounter Visit Diagnoses Diagnosis Encounter for long-term (current) use of medications Encounter for long-term (current) use of other medications documented in this encounter Care Teams Child Monitor Relationship Specialty Start Date End Date Vladislav Brice MD [address] [place] [address] PCP - General Internal Medicine 05/21/23 documented as of this encounter
--- OUTSIDE RECORDS SUMMARY | 2024-04-25 10:45 | External Medical Summary | Summary of Care ---
Author Name Unknown Organization [facility] Address [address] [place] [address] Phone [phone] Care Team Providers Care Pail Bailer Name Role Phone Vladislav Brice MD Primary Care Provider + Reason for Visit * Reason Onset Date Comments [facility]: Enrollment 04/22/2024 Encounter Details Date Type Department Care Team (Late st Contact Info) Description 04/22/2024 Telephone [facility], [place] [address] [place] [address] [phone] [place], Howard, LORI [address] [place] [address] [facility]: Enrollment Allergies Active Allergy Reactions Criticality Noted Date [...] of medicat ions 08/20/2016 [facility]oid [facility] without rheumatoid factor 08/07/2016 Restless legs 04/18/2016 documented as of this encounter (statuses as of 04/22/2024) Resolved Problems Problem Noted Date Diagnosed Date Resolved Date Arthritis, rheumatoid 03/14/20102009 ARTHRITIS,RHEUMATOID (seronegative) 03/14/2010 08/07/2016 Diabetes mellitus 05/21/2023 documented as of this encounter (statuses as of 04/22/2024) Immunizations Name Administration Dates Next Due COVID-19 mRNA, LNP-s, No Pre serve, 2-Dose Series (Zecter) 09/26/2021,01/05/2021,12/15/2020,11/23 COVID-19, MRNA-LNP, 23-24, P F, 30 [...] encounter Miscellaneous Notes * Telephone Encounter - Howard Philip OSA - 04/22/2024 11:37 AM EDT [facility] Engagement Attempt Engagement: Engagement Attempt 1: No data was found Home Information: No data was found Advance Care Planning (ACP): No data was found Has Living Will or Advance Directive: No data was found Anticipated Sub-Program: No data was found Confirmation of Sub-Program Type (by care steam shovel runner): No data was found Handoff Information: Current care team notified via: No data was found Current telemonitoring equipment: No data was found Declined - doing fine and able to go to doctors on time, don't need GAH right now documented in this encounter Plan of Treatment Upcoming Encounters Date Type Department Care Team (Late st Contact Info) Description 05/10/2024 11:00 AM EDT Imaging Radiology, [place] [address] [address] [place] [address] 08/03/2024 3:00 PM EDT Office Visit Rheumatology [place] [address] [place] [place] [address] Chevy Gallegos CRNP [facility] [place] [address] Scheduled Procedures Name Priority Associated Diagnoses Date/Ti me COLONOSCOPY FLEXIBLE PROXIMA L DIAGNOSTIC Recall History of colonic polyps Health Maintenance Due Date Last Done Comments Depression Screening 1967 Albumin/Creatinine Ratio 1973 CKD PHOS USE SMARTSET 95077 1973 Diabetic Foot Exam 1973 Cologuard 01/05/2000 [...] 11/20/2023, , 09/02/2022 CKD HGB USE SMARTSET 09307 04/21/202504/21, 04/21/2024, 09/12/2023, Additional history exists Colonoscopy [...] this encounter Medical Devices Implanted Type Area Director Financial Planning Device Identifier Shelf Expiration Date Model / Serial / Lot Clip Hemostatic [id number] 2.8mm St Latexfree Radiopaque - [id number] Implanted:Qty: 3 on 10/29/2023 by Diya Miranda DO at ENDOSCOPY [facility] : ENDOSCOPY 04/24/2026 [id number] / / documented as of this encounter Care Teams Pail Bailer Relationship Specialty Start Date End Date Vladislav Brice MD [address] [place], [place] [address] PCP - General Internal Medicine 05/21/23 documented as of this encounter
--- OUTSIDE RECORDS SUMMARY | 2024-04-25 10:45 | External Medical Summary ---
Author Name Unknown Address Unknown Organization [facility] [address] [place] [id number] Laboratory Report Ordering Provider Test Date Status MEÑO MOSS 04/21/2024 15:40:34 Final Observation Date Value Abnormality Reference (Units ) Status WBC, Total 04/21/2024 15:40:34 10.01 4.00-10.8 0 (K/uL) Final RBC 04/21/2024 15:40:34 3.58 3.85-5.15 (M/uL) Final Hemoglobin 04/21/2024 15:40:34 10.7 Below low normal 12 .0-15.3 (g/dL) Final HCT 04/21/2024 15:40:34 35.8 Below low normal 36. 0-45.2 (%) Final MCV 04/21/2024 15:40:34 100.0 81.5-97.5 (fL) Final MCH 04/21/2024 15:40:34 29.9 27.0-34.0 (pg) Final MCHC 04/21/2024 15:40:34 29.9 32.0-36.0 (g/dL) Final RDW 04/21/2024 15:40:34 14.6 11.5-15.5 (%) Final Platelets 04/21/2024 15:40:34 277 140-400 (K /uL) Final MPV 04/21/2024 15:40:34 10.1 6.6-11.1 ( fL) Final Performing Location [facility] [address] [place] [id number]
--- OUTSIDE RECORDS SUMMARY | 2024-04-25 10:45 | External Medical Summary | Summary of Care ---
Author Name Unknown Organization [facility] Address [address] [place] [address] Phone [phone] Care Team Providers Care Handbag Framer Name Role Phone Vladislav Brice MD Primary Care Provider + Encounter Details Date Type Department Care Team (Late st Contact Info) Description 04/21/2024 Orders Only Rheumatology [place] [id number] [employer] [place] [address] Chevy Gallegos CRNP [facility] [employer] [place] [address] Allergies Active Allergy Reactions Criticality Noted Date [...] of medicat ions 08/20/2016 Rheumatoid arthritis of [facility] without rheumatoid factor 08/07/2016 Restless legs 04/18/2016 documented as of this encounter (statuses as of 04/21/2024) Resolved Problems Problem Noted Date Diagnosed Date Resolved Date Arthritis, rheumatoid 03/14/20102009 ARTHRITIS,RHEUMATOID (seronegative) 03/14/2010 08/07/2016 Diabetes mellitus 05/21/2023 documented as of this encounter (statuses as of 04/21/2024) Immunizations Name Administration Dates Next Due COVID-19 mRNA, LNP-s, No Pre serve, 2-Dose Series (MVious Xotics) 09/26/2021,01/05/2021,12/15/2020,11/23 COVID-19, MRNA-LNP, 23-24, P F, 30 MCG/0.3 mL, 12 YRS AND ABOVE, IM ([facility]) 07/10/2023 Covid-19, Mrna, Lnp-s, Pf, B [...] Description 05/10/2024 11:00 AM EDT Imaging Radiology, [address] [place] [address] 08/03/2024 3:00 PM EDT Office Visit Rheumatology [facility] [address] [place], [place] [address] Chevy Gallegos CRNP [address] [employer] [place] [address] Scheduled Procedures Name Priority Associated Diagnoses Date/Ti me COLONOSCOPY FLEXIBLE PROXIMA L DIAGNOSTIC Recall History of colonic polyps Health Maintenance Due Date Last Done Comments Depression Screening 1967 Albumin/Creatinine Ratio 1973 CKD PHOS USE SMARTSET 00240 1973 Diabetic Foot Exam 1973 Cologuard 01/05/2000 [...] 07/21/2024 07/21/2023, 07/21/2023 CKD HGB USE SMARTSET 22184 09/12/202409/12, 09/12/2023, 05/05/2023, Additional history exists Diabetic Eye Exam [...] this encounter Medical Devices Implanted Type Area City Plant Supervisor Device Identifier Shelf Expiration Date Model / Serial / Lot Clip Hemostatic [id number] 2.8mm St Latexfree Radiopaque - [id number] Implanted:Qty: 3 on 10/29/2023 by Diya Miranda DO at ENDOSCOPY [facility] : ENDOSCOPY 04/24/2026 [id number] / / documented as of this encounter Care Teams Handbag Framer Relationship Specialty Start Date End Date Vladislav Brice MD [address] [place] [address] PCP - General Internal Medicine 05/21/23 documented as of this encounter
--- OUTSIDE RECORDS SUMMARY | 2024-04-25 10:45 | External Medical Summary ---
Author Name Unknown Address Unknown Organization K0G:[facility] [address] [place] [id number] Laboratory Report Ordering Provider Test Date Status MEÑO MOSS 04/21/2024 15:40:34 Final Observation Date Value Abnormality Reference (Units ) Status SYNC LEUKOCYTES IN BLOOD BY AUTOMATED COUNT 04/21/2024 15:40:34 10.01 4.00-10.80 (K/uL) Final Segs 04/21/2024 15:40:34 78.2 Above high normal 40.0-75.0 (%) Final Lymphs % 04/21/2024 15:40:34 10.4 Below low normal 18.0-42.0 (%) Final Monos 04/21/2024 15:40:34 8.2 1.0-11.0 (%) Final Eosinophils 04/21/2024 15:40:34 2.6 0.0-6.0 (%) Final Basos 04/21/2024 15:40:34 0.6 0.0-2.0 (%) Final Absolute Segs 04/21/2024 15:40:34 7.83 Above high normal 1.80-7.70 (K/uL) Final Lymphs, absolute 04/21/2024 15:40:34 1.04 1.00-4.80 (K/ul) Final Monos, Abs 04/21/2024 15:40:34 0.82 0.00-1.10 (K/uL) Final Eos, Abs 04/21/2024 15:40:34 0.26 0.00-0.70 (K/uL) Final Basos, Abs 04/21/2024 15:40:34 0.06 0.00-0.20 (K/uL) Final Performing Location [facility] [place] [address] [place] [id number]
[2024-04-25] MEDS: ONDANSETRON INJ 2 MG/ML 2 ML VIAL IV STA (11:14)
[2024-04-25 11:30] LABS: Appearance Urine Clear (Clear); Bacteria Urine Automated 1+ (None Seen); Bilirubin Urine Negative (Negative); Blood Urine Negative (Negative); Cast Urine Automated 0-2 /lpf (0-2); Color Urine Yellow; Epithelial Cell Urine Auto 0-2 /hpf (0-2); Glucose Urine UA Negative (Negative); Ketones Urine Negative (Negative); Leukocyte Esterase Urine Trace (Negative); Nitrite Urine Negative (Negative); Protein Urine 2+ (Negative); RBC Urine Automated >20 /hpf (0-2); Specific Gravity Urine 1.024 (1.000-1.030); Urobilinogen Urine Negative (Negative)
--- NOTE | 2024-04-25 11:36 | XRay Report ---
XR chest 1V portable HISTORY: Sepsis COMPARISON: Chest 01/13/2024. FINDINGS: No pneumothorax. No pleural effusions. The cardiac silhouette remains mildly enlarged. Ther e are calcifications within the mitral annulus. No focal lung consolidations to suggest a pneumonia. No evidence for pulmonary edema. No acute fractures. IMPRESSION: No significant change compared to the prior study. No acute process. ACT 112: Negative or not required by law. Electronically signed by: Sonny Moody M.D. 04/25/2024 11:35 AM
[2024-04-25 11:50] LABS: Basophils # (auto) 0.02 K/uL (0.00-0.20); Basophils % (auto) 0.1 %; Eosinophils # (auto) 0.01 K/uL (0.00-0.50); Eosinophils % (auto) 0.1 %; Hematocrit (blood only) 37.3 % (37.0-47.0); Hemoglobin 11.3 g/dl (12.0-16.0); Immature Granulocytes # (auto) 0.14 K/uL (0.01-0.20); Immature Granulocytes % (auto) 0.9 %; Lymphocytes # (auto) 0.62 K/uL (1.20-3.40); Lymphocytes % (auto) 3.8 %; Mean Corpuscular Hemoglobin 29.3 pg (25.0-34.0); Mean Corpuscular Hgb Conc 30.3 g/dL (32.0-36.0); Mean Corpuscular Volume 96.6 fL (80.0-100.0); Mean Platelet Volume 10.4 fL (9.4-12.4); Monocytes # (auto) 0.98 K/uL (0.11-0.59); Neutrophils # (auto) 14.63 K/uL (1.40-6.50); Neutrophils % (auto) 89.1 %; Platelet Count 233 K/uL (130-400); RDW Coefficient of Variation 14.6 % (11.5-14.5); RDW Standard Deviation 51.8 fL (36.4-46.3); Red Blood Count 3.86 M/uL (4.20-5.40)
[2024-04-25] MEDS ORDERED: VANCOMYCIN CONSULT ACTIVE PRN ×2 (11:54→16:20)
[2024-04-25 11:59] LABS: Influenza A virus by PCR Negative (Neg); Influenza B virus by PCR Negative (Neg); RSV by PCR Negative (Neg); SARS CoV2 RNA(COVID-19) Ceph NEGATIVE (Negative)
[2024-04-25 12:08] LABS: Albumin Level 3.8 gm/dl (3.4-5.0); BUN Creatinine Ratio 21.4 (10-20); Bilirubin Direct 0.1 mg/dl (0-0.2); Bilirubin,Total 0.3 mg/dl (0.2-1.0); Calcium 8.4 mg/dl (8.6-10.3); Creatinine Clr Calc Pharmacy 32.8 ml/min; Est GFR (African American) 34.3 ml/min; Est GFR (Non-African American) 29.6 ml/min; Magnesium 2.2 mg/dl (1.7-2.4); Potassium 4.3 mmol/L (3.5-5.1); Total Protein 6.8 gm/dl (6.0-8.3)
[2024-04-25] MEDS: SODIUM CHLORIDE 0.9% 1,000 ML IV SCH (12:11)
[2024-04-25] MEDS: CEFEPIME 2,000 MG/20 ML VIAL IV STA (12:11)
[2024-04-25 12:15] LABS: Troponin I High Sensitivity 10.6 pg/ml (0-14)
--- NOTE | 2024-04-25 12:51 | CT Scan Report ---
HEAD CT NONCONTRAST CT DOSE: HISTORY: Altered mental status, on eliquis TECHNIQUE: Multiaxial CT images of the head were performed without the use of intravenous contrast. A utomated exposure control was utilized for this study. A dose lowering technique was utilized adheri ng to the principles of ALARA. Comparison: Head CT 11/07/2022. Findings: Mild mucosal thickening within the right maxillary sinus. The mastoid air cells are clear. The calvarium and skull base are intact. There is no mass, hematoma, midline shift, acute infarct. Wh ite matter hypodensity is nonspecific but suggestive of microvascular ischemic change. The ventricles and sulci demonstrate mild age-related involutional changes. There is an old lacunar infarct within the left basal ganglia, unchanged. There is a punctate calcification within the left parietal lobe. Impression: No significant change compared to the prior study. No acute intracranial abnormality. ACT 112: Negative or not required by law. Electronically signed by: Sonny Moody M.D. 04/25/2024 12:49 PM
--- NOTE | 2024-04-25 13:03 | CT Scan Report ---
ABDOMEN AND PELVIS CT WITHOUT CONTRAST CT DOSE: 1998.46 mGy.cm HISTORY: abdominal distension TECHNIQUE: Multiaxial CT images of the abdomen and pelvis were performed without contrast. A dose lo wering technique was utilized adhering to the principles of ALARA. COMPARISON STUDY: Abdomen and pelvis CT 02/27/2023. FINDINGS: Mild dependent changes seen within the lung bases. There is a small amount of scattered pne umoperitoneum identified. This is secondary to the suspected perforated acute sigmoid diverticulitis at the mid sigmoid colon. The pericolonic inflammatory change surrounds the mid sigmoid colon. There are a few loculated gas and fluid collections within the pelvis consistent with abscesses. The sarahi lonic abscess inferior to the mid sigmoid colon measures 5.5 x 4.0 cm. There is also 4.8 x 4.4 cm abs cess within the pelvic cul-de-sac. There is a 6.8 x 1.3 cm abscess along the right deep pelvis on [address]. These abscesses may connect. No dilated loops of bowel to suggest an obstruction. Normal appe ndix. Hysterectomy. Mild bladder wall thickening. This may be reactive. No evidence for a bladder fis hans at this time. L3-S1 posterior decompression and fusion again noted. There are healing bilateral anterior rib fractures. No acute fractures identified. There is an old moderate inferior endplate com pression fracture at T12, unchanged. There is mild cardiomegaly. Mild hepatic steatosis. Prior cholec ystectomy. The unenhanced pancreas, spleen, and adrenal glands unremarkable. There is a punctate serena ical calcification within the right kidney. No renal or ureteral calculi. No hydronephrosis. No retro peritoneal lymphadenopathy. Calcified plaque within the normal caliber abdominal aorta. IMPRESSION: 1. Perforated acute sigmoid diverticulitis as described above with a small amount of pneumoperitoneum and pericolonic abscesses. 2. Mild bladder wall thickening. This is likely reactive to the acute diverticulitis. No evidence for a fistula. 3. No evidence for bowel obstruction. 4. Normal appendix. 5. Additional findings as described above. ACT 112: Negative or not required by law. Electronically signed by: Sonny Moody M.D. 04/25/2024 1:00 PM
[2024-04-25] MEDS: VANCOMYCIN HCL 1,500 MG in SODIUM CHLORIDE 0.9% 500 ML IV ONE (13:15)
[2024-04-25] MEDS: SODIUM CHLORIDE 0.9% 1,000 ML IV ONE (14:10)
--- NOTE | 2024-04-25 14:23 | Anesthesiology Consultation ---
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 History Height/Weight Height: 5 ft 6 in Weight: 80.4 kg Allergies Allergy/AdvReac Type Severity Reaction Status Date / Time tetracycline Allergy Severe Facial rash Verified 04/25/24 13:13 methenamine Allergy Intermediate Swelling Verified 04/25/24 13:13 of Lip/Tongue/Throat Rpblnnm-NOM-FmK Reductase AdvReac Intermediate LE edema Verified 04/25/24 13:13 Inhibitor [Stmxale-Ybb-Ndz Reductase Inhibitor] morphine AdvReac Mild Nausea Verified 04/25/24 13:13 oxycodone AdvReac Mild Drowsy Verified 04/25/24 13:13 Medications Home Medications Medication Instructions Recorded Confirmed Last Taken cholecalciferol (vitamin D3) 25 1,000 unit PO QAM 10/26/18 04/25/24 04/25/24 mcg (1,000 unit) capsule (Vitamin D3) magnesium 250 mg tablet 250 mg PO HS 10/26/18 04/25/24 04/24/24 acetaminophen 500 mg tablet 1,000 mg PO Q6H PRN Pain 12/24/18 04/25/24 03/25/23 (Tylenol Extra Strength) L.acidop,casei,lactis,rham-B.lact,reyes 1 cap PO HS 12/12/22 04/25/24 04/24/24 625 mg (10 billion cell) capsule (Advanced Probiotic) furosemide 20 mg tablet (Lasix) 20 mg PO DAILY PRN edema of legs 12/13/22 04/25/24 Unknown #30 tabs metoprolol succinate 100 mg 100 mg PO BID #180 tabs 01/13/23 04/25/24 04/25/24 tablet,extended release 24 hr cyclobenzaprine 10 mg tablet 10 mg PO HS PRN muscle spasm #30 03/02/23 04/25/24 01/29/24 08:00 tabs OneTouch Delica Plus Lancet 33 #100 ea 05/21/23 01/30/24 Unknown gauge (lancets) OneTouch Verio Reflect Meter #1 ea 05/21/23 01/30/24 Unknown (blood-glucose meter) OneTouch Verio test strips (blood #100 ea 05/21/23 01/30/24 Unknown sugar diagnostic) pen needle, diabetic 31 gauge x #100 ea 09/18/23 01/30/24 Unknown 10/16" amiodarone 200 mg tablet 200 mg PO HS #90 tabs 09/21/23 04/25/24 04/24/24 apixaban 5 mg tablet (Eliquis) 5 mg PO BID #180 tabs 09/21/23 04/25/24 04/25/24 insulin glargine 100 unit/mL (3 5 unit (0.05 mL) subcut HS #15 mL 11/05/23 04/25/24 04/24/24 mL) subcutaneous pen (Lantus Solostar U-100 Insulin) gabapentin 300 mg capsule 600 mg PO HS 01/14/24 04/25/24 04/24/24 semaglutide 0.25 mg or 0.5 mg (2 0.5 mg subcut Q7D 01/14/24 04/25/24 04/19/24 mg/3 mL) subcutaneous pen injector (Ozempic) sulfamethoxazole 800 1 tab PO QAM preventative 01/14/24 04/25/24 04/25/24 mg-trimethoprim 160 mg tablet (Bactrim DS) hydrocodone 5 mg-acetaminophen 325 1 tab PO Q6H PRN pain #30 tabs 01/30/24 04/25/24 Unknown mg tablet levothyroxine 112 mcg tablet 112 mcg PO DAILY 01/30/24 04/25/24 04/25/24 omeprazole 20 mg capsule,delayed 20 mg PO DAILY 01/30/24 04/25/24 04/25/24 release prednisone 5 mg tablet 5 mg PO DAILY 01/30/24 04/25/24 04/25/24 tramadol 50 mg tablet 50 mg PO Q6H PRN pain, moderate 01/30/24 04/25/24 Unknown #30 tabs Active Medications Generic Name Dose Route Start Last Admin Trade Name Freq PRN Reason Stop Dose Admin Vancomycin HCl 1,500 mg/ 530 mls @ 200 mls/hr 04/25/24 11:54 04/25/24 13:15 Sodium Chloride IV 04/25/24 14:32 200 mls/hr NOW ONE Administration Sodium Chloride 1,000 mls @ 999 mls/hr 04/25/24 13:49 04/25/24 14:10 Nss IV 04/25/24 14:49 999 mls/hr .Q1H1M ONE Administration Past Medical History Medical History Chronic steroid use On anticoagulant therapy History of cardioversion 12/13/22 and 12/31/22 ([facility]) History of stroke Vertebrobasilar artery brainstem stroke 2020, slight residual right sided weakness Given TPA on 04/21/2021 with resolution of symptoms History of recent blood transfusion 09/18/22 @ [facility] History of COVID-19 2020- hospitalized at [facility] for 9 days, no issues now GERD (gastroesophageal reflux disease) Anxiety Stenosis of left internal carotid artery 50-69% stenosis of left ICA per 04/2021 neck CTA Stenosis of left vertebral artery Approximately 90% stenosis within V4 segment of left vertebral artery per 04/21/2021 neck CTA History of MRSA infection lumbar surgical incision s/p vanco/ceftriaxone/bactrim per 04/2019 [facility] discharge summary 2022 - positive nasal swab Lumbar radiculopathy Spinal stenosis Diabetes mellitus type II, controlled Past Family History Family History Father Diabetes Lung cancer Cancer Hypertension Mother Malignant neoplasm of brain Diabetes Brain tumor Cancer Hypertension Aunt Breast cancer Sister Hypertension Other No family history of adverse response to anesthesia Denies family history of Ovarian cancer Prostate cancer Myocardial infarction Colorectal cancer Past Surgical History Surgical History History of lithotripsy 03/2023 at [facility] --> right kidney stone History of esophagogastroduodenoscopy (EGD) Hx of colonoscopy Hx laparoscopic cholecystectomy (02/12/23) Robotic Assisted Laparoscopic Cholecystectomy (Not Applicable) - Otto Fish DO History of ERCP w/stent placement; s/p stent removal also History of lumbar surgery Lumbar Spine Wound Revision 2019 Status post laminectomy with spinal fusion L2-L5 laminectomy/fusion (12/24/18): Grade view 1, MAC#3, ETT 7.0 Hx of tonsillectomy History of x2 History of total left knee replacement History of hysterectomy total Social History Smoking Status: Never smoker Do You Dip or Chew Tobacco: No Hx Alcohol Use: Yes Alcohol type: wine alcohol intake frequency: holidays/special occasions only Hx Substance Use: No substance use type: does not use Physical Exam Vital Signs Last Vital Signs Temp 103.3 F H 04/25/24 10:42 Pulse 77 04/25/24 13:33 Resp 18 04/25/24 13:33 BP 89/51 L 04/25/24 13:33 Pulse Ox 94 04/25/24 13:33 O2 Del Method Nasal Cannula 04/25/24 13:33 O2 Flow Rate 1 04/25/24 13:33 Testing Laboratory Results 04/25/24 11:18 04/25/24 11:18 Urine Color Yellow 04/25/24 10:55 Urine Appearance Clear (Clear) 04/25/24 10:55 Urine pH 6.0 (4.5-7.5) 04/25/24 10:55 Ur Specific Dahinda 1.024 (1.000-1.030) 04/25/24 10:55 Urine Protein 2+ (Negative) H 04/25/24 10:55 Urine Glucose (UA) Negative (Negative) 04/25/24 10:55 Urine Ketones Negative (Negative) 04/25/24 10:55 Urine Nitrite Negative (Negative) 04/25/24 10:55 Ur Leukocyte Esterase Trace (Negative) H 04/25/24 10:55 Urine WBC (Auto) 6-10 /hpf (0-5) H 04/25/24 10:55 Urine RBC (Auto) >20 /hpf (0-2) H 04/25/24 10:55 U Hyaline Cast (Auto) 0-2 /lpf (0-2) 04/25/24 10:55 U Epithel Cells (Auto) 0-2 /hpf (0-2) 04/25/24 10:55 Urine Bacteria (Auto) 1+ (None Seen) H 04/25/24 10:55 Electrocardiogram Date: 04/25/24 Normal sinus rhythm Normal ECG When compared with ECG of 13-JAN-2024 12:16, QRS axis Shifted left Criteria for Inferior infarct are no longer Present T wave inversion no longer evident in Lateral leads Chest X-Ray Date: 04/25/24 FINDINGS: No pneumothorax. No pleural effusions. The cardiac silhouette remains mildly enlarged. There are calcifications within the mitral annulus. No focal lung consolidations to suggest a pneumonia. No evidence for pulmonary edema. No acute fractures. IMPRESSION: No significant change compared to the prior study. No acute process. Echocardiogram Date: 12/26/22 Normal LV size and systolic function. EF 60-65%. No regional wall motion abnormalities. Mod concentric LVH. Mild left atrial dilation Moderate mitral annular calcification Normal estimated RVSP
[2024-04-25] MEDS ORDERED: DEXAMETHASONE SOD INJ 4 MG/ML VIAL ONE (14:27)
[2024-04-25] MEDS ORDERED: ONDANSETRON INJ 2 MG/ML 2 ML VIAL ONE (14:27)
[2024-04-25] MEDS ORDERED: ROCURONIUM BROMIDE 10 MG/ML 5 ML VIAL IV ONE (14:27)
[2024-04-25] MEDS: HYDROCORTISONE SOD SUCCINATE 100 MG/2 ML VIAL IV STA (14:27)
[2024-04-25] MEDS ORDERED: MIDAZOLAM HCL 1 MG/ML 2ML VIAL ONE (14:27)
[2024-04-25] MEDS ORDERED: fentaNYL citrate PF 100 MCG/2 ML VIAL ONE (14:27)
[2024-04-25] MEDS: metroNIDAZOLE 500 MG/100 ML BAG IV STA (14:27)
[2024-04-25] MEDS ORDERED: GLYCOPYRROLATE 0.2 MG/ML VIAL ONE (14:27)
[2024-04-25] MEDS ORDERED: LIDOCAINE 2% 2 ML VIAL/AMP(20MG/ML) INFIL ONE (14:27)
[2024-04-25] MEDS ORDERED: NEOSTIGMINE METHYLSULFATE 1 MG/ML 10ML VIAL ONE (14:27)
[2024-04-25] MEDS ORDERED: PROPOFOL IV EMULSION 10 MG/ML 20 ML VIAL IV ONE (14:27)
[2024-04-25] MEDS ORDERED: SODIUM CHLORIDE 0.9% 250 ML IV PRN (14:38)
--- NOTE | 2024-04-25 14:51 | History & Physical Report ---
Date of Service April 25, 2024 Assessment & Plan (1) Severe sepsis: (2) Perforated diverticulum: (3) Pelvic abscess in female: (4) Type 2 diabetes mellitus with insulin therapy: (5) Paroxysmal atrial fibrillation: (6) (HFpEF) heart failure with preserved ejection fraction: (7) Hypertension: (8) Hyperlipidemia: (9) Chronic kidney disease, stage 3b: (10) Rheumatoid arthritis: (11) Anemia of chronic disease: (12) Hypothyroidism: (13) Recurrent UTI: Plan: Severe sepsis Perforated diverticulum Pelvic abscess: Patient is 69-year-old female with PMH HTN, HLD, atrial fibrillation s/p cardioversion, chronically anticoagulated on Eliquis, DM II, rheumatoid arthritis on chronic prednisone, CKD III, chronic anemia, history of recurrent UTIs, hypothyroidism presented to ER with complaint of noted altered mental status and weakness today. Some constipation and cramping sensation to lower abdomen past couple of days. Last took Eliquis Evening of 04/24/24. None today In ER patient reported to be somewhat somnolent on arrival and was found to be febrile with Temp 39.6C, Pulse: 89, R: 27, BP: 159/71, 93% on RA. WBC: 16, Lactate: 2.0, procalcitonin: 0.35 CT abd/pelvis: 1. Perforated acute sigmoid diverticulitis as described above with a small amount of pneumoperitoneum and pericolonic abscesses. 2. Mild bladder wall thickening. This is likely reactive to the acute diverticulitis. No evidence for a fistula. 3. No evidence for bowel obstruction. 4. Normal appendix. In ER Was given 1L NSS, cefepime, Flagyl, vancomycin. During ER course patient became hypotensive with BP down to 87/48. Additional 1L NSS started and patient given hydrocortisone 100mg IV. Patient re-evaluated. Is A&O, Current BP:95/57, MAP:67, Pulse 78, O2 sat 95% on 1L O2 via NC, palpable pulses, lungs clear to auscultation, heart rate regular Norepinephrine was ordered but not started in ER. MRSA swab pending Type and cross and hold PRBCs NPO Zosyn, vancomycin Admit ICU Evaluated in ER by General Surgeon, Dr Shultz. Discussed case with surgeon at bedside who made decision to not take patient to OR tonight and to monitor patient closely and if decompensation plan to take patient to OR more urgently, otherwise plan likely OR tomorrow. AM labs DM II: Insulin dependent A1c: 5.6 on 11/21/23 Glycemic management per ICU protocol Paroxysmal atrial fibrillation: S/P cardioversion x 2 Anticoagulated on Eliquis Last dose Eliquis on 04/24/24 Current sinus rhythm Hold Eliquis Will hold metoprolol succinate and amiodarone for now, patient hypotensive and npo Follows with cardiology, Dr. Pedraza Chronic kidney disease, stage 3: Cr: 1.7. Baseline creatinine: ~1.7 Monitor renal functions HFpEF: Uses Lasix on as needed basis. Has not used for months Echo: 12/26/22: EF: 60-65% Monitor volume status Hyperlipidemia: On Repatha Rheumatoid arthritis: On chronic prednisone 5mg daily Did not have prednisone today Received IV hydrocortisone 100mg in ER Plan for hydrocortisone 50mg Q8H Follows with rheumatology, Dr. Padron Hypothyroidism: On home levothyroxine Anemia of chronic disease and iron deficiency anemia: Hgb: 11.3. Baseline 9-10 Follows with hematology and receives IV iron Monitor H&H Recurrent UTI: History recurrent UTI On home chronic Bactrim Follows with urology, Dr. Ramos DVT Prophylaxis SCDs Admit ICU Full Code as per discussion with patient Follows with Dr Brice for routine care Pt was seen and care coordinated with Dr Strickland. See addendum I spent a total of 82 minutes reviewing notes, outpatient records, labs, medication, coordinating, documenting and providing care for this patient excluding time spent in the performance of separately billed services. History of Present Illness Chief Complaint: [facility] Primary Care Provider: Vladislav Brice MD Patient is 69-year-old female with PMH HTN, HLD, atrial fibrillation s/p cardioversion, chronically anticoagulated on Eliquis, DM II, rheumatoid arthritis on chronic prednisone, CKD III, chronic anemia, history of recurrent UTIs, hypothyroidism presented to ER with complaint of noted altered mental status and weakness today. History obtained from patient, and inpatient and outpatient chart review. and patient reports patient hasn't had BM for a couple of days. States patient has seemed a little more weak since her lumbar surgery in January 2024 but has been ambulating and completing daily tasks. Inpatient and outpatient chart reviewed and patient with lumbar decompression and fusion L3-S1 by Dr. Clark on 01/30/2024. states yesterday patient went to a constitution party and she ate and drank and seemed to otherwise be in normal health. He reports woke up this morning and found patient confused, saying that she went to jain (which she did not) and noted patient seemed weak. Patient states that she has been having some lower abdominal cramping intermittently past couple of days but thought that was related to constipation. Reports last took medications last night and denies medications or eating today. Was unaware of fever or chills at home. Patient reports history of sepsis with gallbladder requiring surgery in past. Denies N/V, RAMÍREZ, syncope, vision changes, neck pain, CP, SOB, cough, sore throat, rhinorrhea, extremity edema, rashes, urinary symptoms. In ER patient reported to be somewhat somnolent on arrival and was found to be febrile with Temp 39.6C, Pulse: 89, R: 27, BP: 159/71, 93% on RA. Was given 1L NSS, cefepime, Flagyl, vancomycin. During ER course patient became hypotensive with BP down to 87/48. Additional 1L NSS started and patient given hydrocortisone 100mg IV. Current BP:95/57 MAP:67 Evaluated in ER by General Surgeon Allergies Allergy/AdvReac Type Severity Reaction Status Date / Time tetracycline Allergy Severe Facial rash Verified 04/25/24 13:13 methenamine Allergy Intermediate Swelling Verified 04/25/24 13:13 of Lip/Tongue/Throat Gluorqn-XOH-KaH Reductase AdvReac Intermediate LE edema Verified 04/25/24 13:13 Inhibitor [Qzvbvsv-Jag-Sio Reductase Inhibitor] morphine AdvReac Mild Nausea Verified 04/25/24 13:13 oxycodone AdvReac Mild Drowsy Verified 04/25/24 13:13 Home Medications Medication Instructions Recorded Confirmed Type cholecalciferol (vitamin D3) 25 1,000 unit PO QAM 10/26/18 04/25/24 History mcg (1,000 unit) capsule (Vitamin D3) magnesium 250 mg tablet 250 mg PO HS 10/26/18 04/25/24 History acetaminophen 500 mg tablet 1,000 mg PO Q6H PRN Pain 12/24/18 04/25/24 History (Tylenol Extra Strength) L.acidop,casei,lactis,rham-B.lact,reyes 1 cap PO HS 12/12/22 04/25/24 History 625 mg (10 billion cell) capsule (Advanced Probiotic) furosemide 20 mg tablet (Lasix) 20 mg PO DAILY PRN edema of legs 12/13/22 04/25/24 Rx #30 tabs metoprolol succinate 100 mg 100 mg PO BID #180 tabs 01/13/23 04/25/24 Rx tablet,extended release 24 hr OneTouch Delica Plus Lancet 33 #100 ea 05/21/23 04/25/24 Rx gauge (lancets) OneTouch Verio Reflect Meter #1 ea 05/21/23 04/25/24 Rx (blood-glucose meter) OneTouch Verio test strips (blood #100 ea 05/21/23 04/25/24 Rx sugar diagnostic) pen needle, diabetic 31 gauge x #100 ea 09/18/23 04/25/24 Rx 1/4" amiodarone 200 mg tablet 200 mg PO HS #90 tabs 09/21/23 04/25/24 Rx apixaban 5 mg tablet (Eliquis) 5 mg PO BID #180 tabs 09/21/23 04/25/24 Rx insulin glargine 100 unit/mL (3 5 unit (0.05 mL) subcut HS #15 mL 11/05/23 04/25/24 Rx mL) subcutaneous pen (Lantus Solostar U-100 Insulin) gabapentin 300 mg capsule 600 mg PO HS 01/14/24 04/25/24 History semaglutide 0.25 mg or 0.5 mg (2 0.5 mg subcut Q7D 01/14/24 04/25/24 History mg/3 mL) subcutaneous pen injector (Ozempic) sulfamethoxazole 800 1 tab PO QAM preventative 01/14/24 04/25/24 History mg-trimethoprim 160 mg tablet (Bactrim DS) levothyroxine 112 mcg tablet 112 mcg PO DAILY 01/30/24 04/25/24 History omeprazole 20 mg capsule,delayed 20 mg PO DAILY 01/30/24 04/25/24 History release prednisone 5 mg tablet 5 mg PO DAILY 01/30/24 04/25/24 History tramadol 50 mg tablet 50 mg PO Q6H PRN pain, moderate 01/30/24 04/25/24 Rx #30 tabs cyclobenzaprine 10 mg tablet 10 mg PO DAILY PRN muscle spasm 04/25/24 04/25/24 History Past Med/Surg History Problem List Pelvic abscess in female (Acute) Severe sepsis (Acute) Diverticulitis of sigmoid colon (Acute) Perforated diverticulum (Acute) Olecranon bursitis Loose body in right elbow Spinal stenosis of lumbar region with radiculopathy S/P spinal surgery Neurogenic claudication due to lumbar spinal stenosis Elbow effusion Dyslipidemia Dyspnea on exertion Medial epicondylitis, right elbow Osteoarthritis of right elbow Nephrolithiasis Status post laparoscopic cholecystectomy Encounter for pre-operative examination Bacteria in urine Sepsis (Acute) Lactate blood increase Abdominal pain Type 2 diabetes mellitus with insulin therapy Type 2 [place] (myocardial infarction) pt denies History of biliary stent insertion Radiating chest pain Preop cardiovascular exam Chronic heart failure with preserved ejection fraction Acute pyelonephritis due to bacteria Urinary tract infection (Acute) Choledocholithiasis Type 2 diabetes mellitus Diabetes mellitus with neuropathy Diabetes mellitus with nephropathy Statin myopathy Mitral stenosis Persistent atrial fibrillation follows with Dr. Pedraza Atrial fibrillation with rapid ventricular response (Acute) Thoracic compression fracture Sepsis UTI (09/2022) Ischemic stroke Microscopic hematuria (Chronic) Polymorphic light eruption (Chronic) Vitamin D deficiency (Chronic) Neuropathy (Chronic) Rheumatoid arthritis Hypertension Hyperlipidemia Recurrent UTI Immunosuppression due to drug therapy (Acute) *Prednisone daily* (HFpEF) heart failure with preserved ejection fraction EF 60-65%, type 2 diastolic dysfunction on 12/2022 echo Anemia of chronic disease Hx iron infusions (most recent 01/31/23, [facility]) Chronic kidney disease, stage 3b Paroxysmal atrial fibrillation x2 cardioversion 12/2022 Hypothyroidism Medical History Chronic steroid use On anticoagulant therapy History of cardioversion 12/13/22 and 12/31/22 ([facility]) History of stroke Vertebrobasilar artery brainstem stroke 2020, slight residual right sided weakness Given TPA on 04/21/2021 with resolution of symptoms History of recent blood transfusion 09/18/22 @ [facility] History of COVID-19 2020- hospitalized at [facility] for 9 days, no issues now GERD (gastroesophageal reflux disease) Anxiety Stenosis of left internal carotid artery 50-69% stenosis of left ICA per 04/2021 neck CTA Stenosis of left vertebral artery Approximately 90% stenosis within V4 segment of left vertebral artery per 04/21/2021 neck CTA History of MRSA infection lumbar surgical incision s/p vanco/ceftriaxone/bactrim per 04/2019 [facility] discharge summary 2022 - positive nasal swab Lumbar radiculopathy Spinal stenosis Diabetes mellitus type II, controlled Surgical History History of lithotripsy 03/2023 at [facility] --> right kidney stone History of esophagogastroduodenoscopy (EGD) Hx of colonoscopy Hx laparoscopic cholecystectomy (02/12/23) Robotic Assisted Laparoscopic Cholecystectomy (Not Applicable) - Otto Fish DO History of ERCP w/stent placement; s/p stent removal also History of lumbar surgery Lumbar Spine Wound Revision 2018 Status post laminectomy with spinal fusion L2-L5 laminectomy/fusion (12/24/18): Grade view 1, MAC#3, ETT 7.0 Hx of tonsillectomy History of x2 History of total left knee replacement History of hysterectomy total Family History Father Diabetes Lung cancer Cancer Hypertension Mother Malignant neoplasm of brain Diabetes Brain tumor Cancer Hypertension Aunt Breast cancer Sister Hypertension Other No family history of adverse response to anesthesia Denies family history of Ovarian cancer Prostate cancer Myocardial infarction Colorectal cancer Social History Smoking Status: Never smoker Second Hand Exposure: Yes (hx); Hx Alcohol Use: No Hx Substance Use: No Preferred Language: Italian Communication Ability: Effective Visual Impairment: No Limitations Hearing Ability: Normal 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 Feels Safe at Home: Yes Safety Concerns: Feels Safe At This Time Childhood Exposure to Second-Hand Smoke: Yes Diet: gluten free caffeine: Yes Dental Care, Regularly: Yes Physical Activity Frequency: 5-6 Times per Week Physical Activity Frequency Comment: gym Seatbelt Use: always Sunscreen Use: Yes Do you think of yourself as: straight/heterosexual Assistive Devices: Cane and Walker Review of Systems Review of Systems: All systems reviewed & are unremarkable except as noted in HPI & below Physical Exam Physical Exam: General: no apparent distress, overweight, ill appearing Head: normocephalic, atraumatic Eyes: conjunctiva non-injected, anicteric ENT: normal inspection external ears, nose, mucous membranes moist Neck: supple, trachea midline Lungs: clear, no respiratory distress, no wheezing/rhonchi/rales CV: RRR, no murmur, no pretibial edema Abd: protuberant, normal BS, soft, +tender to palpation LLQ without noted rebound tenderness Ext: no cyanosis, no calf tenderness Neuro: Currently alert and oriented to person, place, month and year, no focal deficits noted, normal affect Skin: warm, dry Results & Data Results & Data Vital Signs (Past 12 Hours) Vital Signs Temp Pulse Pulse Resp BP BP Pulse Ox 04/25/24 13:33 77 18 89/51 L 94 04/25/24 12:19 79 04/25/24 10:42 39.6 C H 89 27 H 159/71 H 93 O2 Del Method O2 Flow Rate 04/25/24 13:33 Nasal Cannula 1 04/25/24 12:19 04/25/24 10:42 Room Air Laboratory Results Chest X-Ray 04/25/24 10:41 XR chest 1V portable HISTORY: Sepsis COMPARISON: Chest 01/13/2024. FINDINGS: No pneumothorax. No pleural effusions. The cardiac silhouette remains mildly enlarged. There are calcifications within the mitral annulus. No focal lung consolidations to suggest a pneumonia. No evidence for pulmonary edema. No acute fractures. IMPRESSION: No significant change compared to the prior study. No acute process. ACT 112: Negative or not required by law. Electronically signed by: Sonny Moody M.D. 04/25/2024 11:[address] 04/25/24 10:[address] DOSE: HISTORY: Altered mental status, on eliquis TECHNIQUE: Multiaxial CT images of the head were performed without the use of intravenous contrast. Automated exposure control was utilized for this study. A dose lowering technique was utilized adhering to the principles of ALARA. Comparison: Head CT 11/07/2022. Findings: Mild mucosal thickening within the right maxillary sinus. The mastoid air cells are clear. The calvarium and skull base are intact. There is no mass, hematoma, midline shift, acute infarct. White matter hypodensity is nonspecific but suggestive of microvascular ischemic change. The ventricles and sulci demonstrate mild age-related involutional changes. There is an old lacunar infarct within the left basal ganglia, unchanged. There is a punctate calcification within the left parietal lobe. Impression: No significant change compared to the prior study. No acute intracranial abnormality. ACT 112: Negative or not required by law. Electronically signed by: Sonny Moody M.D. 04/25/2024 12:49 PM Abdomen/Pelvis CT 04/25/24 12:[address] WITHOUT CONTRAST CT DOSE: 1999.46 mGy.cm HISTORY: abdominal distension TECHNIQUE: Multiaxial CT images of the abdomen and pelvis were performed without contrast. A dose lowering technique was utilized adhering to the principles of ALARA. COMPARISON STUDY: Abdomen and pelvis CT 02/27/2023. FINDINGS: Mild dependent changes seen within the lung bases. There is a small amount of scattered pneumoperitoneum identified. This is secondary to the suspected perforated acute sigmoid diverticulitis at the mid sigmoid colon. The pericolonic inflammatory change surrounds the mid sigmoid colon. There are a few loculated gas and fluid collections within the pelvis consistent with abscesses. The pericolonic abscess inferior to the mid sigmoid colon measures 5.5 x 4.0 cm. There is also 4.8 x 4.4 cm abscess within the pelvic cul-de-sac. There is a 6.8 x 1.3 cm abscess along the right deep pelvis on image 283. These abscesses may connect. No dilated loops of bowel to suggest an obstruction. Normal appendix. Hysterectomy. Mild bladder wall thickening. This may be reactive. No evidence for a bladder fistula at this time. L3-S1 posterior decompression and fusion again noted. There are healing bilateral anterior rib fractures. No acute fractures identified. There is an old moderate inferior endplate compression fracture at T12, unchanged. There is mild cardiomegaly. Mild hepatic steatosis. Prior cholecystectomy. The unenhanced pancreas, spleen, and adrenal glands unremarkable. There is a punctate cortical calcification within the right kidney. No renal or ureteral calculi. No hydronephrosis. No retroperitoneal lymphadenopathy. Calcified plaque within the normal caliber abdominal aorta. IMPRESSION: 1. Perforated acute sigmoid diverticulitis as described above with a small amount of pneumoperitoneum and pericolonic abscesses. 2. Mild bladder wall thickening. This is likely reactive to the acute diverticulitis. No evidence for a fistula. 3. No evidence for bowel obstruction. 4. Normal appendix. 5. Additional findings as described above. ACT 112: Negative or not required by law. Electronically signed by: Sonny Moody M.D. 04/25/2024 1:00 PM Diagnostic Findings Chest X-Ray 04/25/24 10:41 XR chest 1V portable HISTORY: Sepsis COMPARISON: Chest 01/13/2024. FINDINGS: No pneumothorax. No pleural effusions. The cardiac silhouette remains mildly enlarged. There are calcifications within the mitral annulus. No focal lung consolidations to suggest a pneumonia. No evidence for pulmonary edema. No acute fractures. IMPRESSION: No significant change compared to the prior study. No acute process. ACT 112: Negative or not required by law. Electronically signed by: Sonny Moody M.D. 04/25/2024 11:[address] 04/25/24 10:[address] DOSE: HISTORY: Altered mental status, on eliquis TECHNIQUE: Multiaxial CT images of the head were performed without the use of intravenous contrast. Automated exposure control was utilized for this study. A dose lowering technique was utilized adhering to the principles of ALARA. Comparison: Head CT 11/07/2022. Findings: Mild mucosal thickening within the right maxillary sinus. The mastoid air cells are clear. The calvarium and skull base are intact. There is no mass, hematoma, midline shift, acute infarct. White matter hypodensity is nonspecific but suggestive of microvascular ischemic change. The ventricles and sulci demonstrate mild age-related involutional changes. There is an old lacunar infarct within the left basal ganglia, unchanged. There is a punctate calcification within the left parietal lobe. Impression: No significant change compared to the prior study. No acute intracranial abnormality. ACT 112: Negative or not required by law. Electronically signed by: Sonny Moody M.D. 04/25/2024 12:49 PM Abdomen/Pelvis CT 04/25/24 12:[address] WITHOUT CONTRAST CT DOSE: 1999.46 mGy.cm HISTORY: abdominal distension TECHNIQUE: Multiaxial CT images of the abdomen and pelvis were performed without contrast. A dose lowering technique was utilized adhering to the principles of ALARA. COMPARISON STUDY: Abdomen and pelvis CT 02/27/2023. FINDINGS: Mild dependent changes seen within the lung bases. There is a small amount of scattered pneumoperitoneum identified. This is secondary to the suspected perforated acute sigmoid diverticulitis at the mid sigmoid colon. The pericolonic inflammatory change surrounds the mid sigmoid colon. There are a few loculated gas and fluid collections within the pelvis consistent with abscesses. The pericolonic abscess inferior to the mid sigmoid colon measures 5.5 x 4.0 cm. There is also 4.8 x 4.4 cm abscess within the pelvic cul-de-sac. There is a 6.8 x 1.3 cm abscess along the right deep pelvis on image 283. These abscesses may connect. No dilated loops of bowel to suggest an obstruction. Normal appendix. Hysterectomy. Mild bladder wall thickening. This may be reactive. No evidence for a bladder fistula at this time. L3-S1 posterior decompression and fusion again noted. There are healing bilateral anterior rib fractures. No acute fractures identified. There is an old moderate inferior endplate compression fracture at T12, unchanged. There is mild cardiomegaly. Mild hepatic steatosis. Prior cholecystectomy. The unenhanced pancreas, spleen, and adrenal glands unremarkable. There is a punctate cortical calcification within the right kidney. No renal or ureteral calculi. No hydronephrosis. No retroperitoneal lymphadenopathy. Calcified plaque within the normal caliber abdominal aorta. IMPRESSION: 1. Perforated acute sigmoid diverticulitis as described above with a small amount of pneumoperitoneum and pericolonic abscesses. 2. Mild bladder wall thickening. This is likely reactive to the acute diverticulitis. No evidence for a fistula. 3. No evidence for bowel obstruction. 4. Normal appendix. 5. Additional findings as described above. ACT 112: Negative or not required by law. Electronically signed by: Sonny Moody M.D. 04/25/2024 1:00 PM ECG Additional Comments: normal sinus rhythm, rate 88 Supervising Physician Co-Signing Physician Notes Attending Addendum: Case reviewed with the advanced practitioner. I have personally performed a history and physical examination on the patient. I have reviewed the advanced practitioner's documentation on the date of service referenced in note, and I agree with, and take responsibility for the plan of care. please refer to her notes for full details patient seen and examined, records reviewed by myself as well VS noted and reviewed oriented x 3, not in distress, speaks in sentences with no effort nor accessory muscle use normal rate, regular rhythm, no murmurs clear breath sounds bilaterally non distended, soft,mild LLQ tenderness no bipedal edema, erythema, warmth no neuro deficits all labs, imaging noted and reviewed ASSESSMENT AND PLAN ACUTE DIVERTICULITIS WITH PERFORATION SEPSIS SECONDARY TO ABOVE Gen Surg consulted- would like to hold off on emergent surgery as patient took Eliquis last evening monitor closely in the ICU IV Vanco + Zosyn stress dose Hydrocortisone as patient on chronic Prednisone other diagnoses and plan of care as per advanced practitioner's notes Carl Strickland MD (7) Hypertension Hypertension type: essential hypertension Qualified Code(s): I10 - Essential (primary) hypertension (8) Hyperlipidemia Hyperlipidemia type: pure hypercholesterolemia Qualified Code(s): E78.00 - Pure hypercholesterolemia, unspecified (10) Rheumatoid arthritis Rheumatoid arthritis location: multiple sites Rheumatoid factor presence: unspecified presence Qualified Code(s): M06.9 - Rheumatoid arthritis, unspecified (12) Hypothyroidism Hypothyroidism type: unspecified Qualified Code(s): E03.9 - Hypothyroidism, unspecified
--- NOTE | 2024-04-25 15:00 | Surgery Consultation ---
<Statement entered by German Shultz, - 04/25/24 16:16> I have seen and examined this patient with the surgical PA. The patient does not appear toxic, her BP is responding to fluid resuscitation and she is mentating well for my exam. I have discussed this case extensively with the patient's (Michael) who is at bedside as well as their daughter, Jordyn who is on her way here from [place]. Date of Consultation April 25, 2024 Assessment & Plan (1) Diverticulitis of sigmoid colon: This is a 69yF with a PMH significant for heart failure, HLD, DM2, h/o RI, afib on eliquis, CKD, h/o stroke, hypothyroidism, rheumatoid arthritis on steroids, who presents to the [facility] ED on 04/25/24 by her with concern for changes in mental status along with patient complaints of lower abdominal cramping and pressure in the rectal region. She underwent a CT a/p that revealed perforated acute sigmoid diverticulitis as described above with a small amount of pneumoperitoneum and pericolonic abscesses. Head CT was negative. In the ER WBC 16, Hbg11, Cr 1.7, Lactate 2. Vitals show she is febrile to 103F. She has soft BP's that are improving last was 107/57, but were 80's systolic. HRs 100s. On examination patient is resting, appears fatigued but not uncomfortable. Abdomen is soft with mild distention and tenderness to palpation in the L mid and L lower abdomen. She has no rebound tenderness and is not peritonitic on exam. Discussions and options presented with patient and her . Given that she is not peritonitic and not having a significant amount of abdominal discomfort/complaints coupled with the fact that she took her eliquis last night we will have her be admitted to the hospital and plan on supportive care overnight. She also has a significant medical history including heart failure and we will see if we can get an echo in the interim. She will need IVF hydration and has been started on IV abx for concern of sepsis. She will definitely need these fluid collections drained, we will see how she is doing tomorrow and decide on IR vs. surgical intervention based on her clinical picture. If she shows any signs of deteriorating overnight we will consider her for more urgent surgical intervention. She will likely spend night in the ICU for close monitoring and possible pressor requirement. We will follow closely. Keep NPO. (2) Severe sepsis: History of Present Illness History of Present Illness This is a 69yF with a PMH significant for heart failure, HLD, DM2, h/o RI, afib on eliquis, CKD, h/o stroke, hypothyroidism, rheumatoid arthritis on steroids, who presents to the [facility] ED on 04/25/24 by her with concern for changes in mental status along with patient complaints of lower abdominal cramping and pressure in the rectal region. She reports she has been running constipated and unable to have a BM since friday. There was also concern for UTI as she has mental status changes with these on occasion. Because of the above symptoms she presented to the ER for further evaluation. She underwent a CT a/p that revealed perforated acute sigmoid diverticulitis as described above with a small amount of pneumoperitoneum and pericolonic abscesses. Head CT was negative. Patient has + fevers. She denies nausea/vomiting, chills, CP/SOB, headaches, or change in urinary status at this time. Patient states she never had diverticulitis before. Last colonoscopy was in October and she had 3 polyps removed. Past surgical history on the abdomen includes cholecystectomy, c section, hysterectomy. She has not had anything to eat/drink since yesterday. She last took her eliquis last night. She reports feeling okay at the moment. She appears alert/oriented and in no distress. Denies abdominal pain or nausea at rest. Allergies Allergy/AdvReac Type Severity Reaction Status Date / Time tetracycline Allergy Severe Facial rash Verified 04/25/24 13:13 methenamine Allergy Intermediate Swelling Verified 04/25/24 13:13 of Lip/Tongue/Throat Onkqmzx-SLB-VbJ Reductase AdvReac Intermediate LE edema Verified 04/25/24 13:13 Inhibitor [Kfpmuyh-Fuq-Wsc Reductase Inhibitor] morphine AdvReac Mild Nausea Verified 04/25/24 13:13 oxycodone AdvReac Mild Drowsy Verified 04/25/24 13:13 Home Medications Medication Instructions Recorded Confirmed Type cholecalciferol (vitamin D3) 25 1,000 unit PO QAM 10/26/18 04/25/24 History mcg (1,000 unit) capsule (Vitamin D3) magnesium 250 mg tablet 250 mg PO HS 10/26/18 04/25/24 History acetaminophen 500 mg tablet 1,000 mg PO Q6H PRN Pain 12/24/18 04/25/24 History (Tylenol Extra Strength) L.acidop,casei,lactis,rham-B.lact,reyes 1 cap PO HS 12/12/22 04/25/24 History 625 mg (10 billion cell) capsule (Advanced Probiotic) furosemide 20 mg tablet (Lasix) 20 mg PO DAILY PRN edema of legs 12/13/22 04/25/24 Rx #30 tabs metoprolol succinate 100 mg 100 mg PO BID #180 tabs 01/13/23 04/25/24 Rx tablet,extended release 24 hr OneTouch Delica Plus Lancet 33 #100 ea 05/21/23 04/25/24 Rx gauge (lancets) OneTouch Verio Reflect Meter #1 ea 05/21/23 04/25/24 Rx (blood-glucose meter) OneTouch Verio test strips (blood #100 ea 05/21/23 04/25/24 Rx sugar diagnostic) pen needle, diabetic 31 gauge x #100 ea 09/18/23 04/25/24 Rx 1/4" amiodarone 200 mg tablet 200 mg PO HS #90 tabs 09/21/23 04/25/24 Rx apixaban 5 mg tablet (Eliquis) 5 mg PO BID #180 tabs 09/21/23 04/25/24 Rx insulin glargine 100 unit/mL (3 5 unit (0.05 mL) subcut HS #15 mL 11/05/23 04/25/24 Rx mL) subcutaneous pen (Lantus Solostar U-100 Insulin) gabapentin 300 mg capsule 600 mg PO HS 01/14/24 04/25/24 History semaglutide 0.25 mg or 0.5 mg (2 0.5 mg subcut Q7D 01/14/24 04/25/24 History mg/3 mL) subcutaneous pen injector (Ozempic) sulfamethoxazole 800 1 tab PO QAM preventative 01/14/24 04/25/24 History mg-trimethoprim 160 mg tablet (Bactrim DS) levothyroxine 112 mcg tablet 112 mcg PO DAILY 01/30/24 04/25/24 History omeprazole 20 mg capsule,delayed 20 mg PO DAILY 01/30/24 04/25/24 History release prednisone 5 mg tablet 5 mg PO DAILY 01/30/24 04/25/24 History tramadol 50 mg tablet 50 mg PO Q6H PRN pain, moderate 01/30/24 04/25/24 Rx #30 tabs cyclobenzaprine 10 mg tablet 10 mg PO DAILY PRN muscle spasm 04/25/24 04/25/24 History Patient History Medical History Chronic steroid use On anticoagulant therapy History of cardioversion 12/13/22 and 12/31/22 ([facility]) History of stroke Vertebrobasilar artery brainstem stroke 2020, slight residual right sided weakness Given TPA on 04/21/2021 with resolution of symptoms History of recent blood transfusion 09/18/22 @ [facility] History of COVID-19 2020- hospitalized at [facility] for 9 days, no issues now GERD (gastroesophageal reflux disease) Anxiety Stenosis of left internal carotid artery 50-69% stenosis of left ICA per 04/2021 neck CTA Stenosis of left vertebral artery Approximately 90% stenosis within V4 segment of left vertebral artery per 04/21/2021 neck CTA History of MRSA infection lumbar surgical incision s/p vanco/ceftriaxone/bactrim per 04/2019 [facility] discharge summary 2022 - positive nasal swab Lumbar radiculopathy Spinal stenosis Diabetes mellitus type II, controlled Surgical History History of lithotripsy 03/2023 at [facility] --> right kidney stone History of esophagogastroduodenoscopy (EGD) Hx of colonoscopy Hx laparoscopic cholecystectomy (02/12/23) Robotic Assisted Laparoscopic Cholecystectomy (Not Applicable) - Otto Fish DO History of ERCP w/stent placement; s/p stent removal also History of lumbar surgery Lumbar Spine Wound Revision 2019 Status post laminectomy with spinal fusion L2-L5 laminectomy/fusion (12/24/18): Grade view 1, MAC#3, ETT 7.0 Hx of tonsillectomy History of x2 History of total left knee replacement History of hysterectomy total Family History Father Diabetes Lung cancer Cancer Hypertension Mother Malignant neoplasm of brain Diabetes Brain tumor Cancer Hypertension Aunt Breast cancer Sister Hypertension Other No family history of adverse response to anesthesia Denies family history of Ovarian cancer Prostate cancer Myocardial infarction Colorectal cancer Social History Smoking Status: Never smoker Second Hand Exposure: Yes (hx); Do You Dip or Chew Tobacco: No; Hx Alcohol Use: Yes Alcohol type: wine Alcohol Intake Frequency: 2-4 x/Month Hx Substance Use: No Preferred Language: Greenlandic Communication Ability: Effective Visual Impairment: No Limitations Hearing Ability: Normal Customer Care Team Coach Required: No Beliefs That Will Affect Care: None marital status: Current Living Situation: Spouse Current Living Situation Comment: 1 level home current occupational status: retired How many Children do You have: 2 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 Feels Safe at Home: Yes Childhood Exposure to Second-Hand Smoke: Yes Diet: gluten free caffeine: Yes Dental Care, Regularly: Yes Physical Activity Frequency: 5-6 Times per Week Physical Activity Frequency Comment: gym Seatbelt Use: always Sunscreen Use: Yes Do you think of yourself as: straight/heterosexual Assistive Devices: Cane and Walker Review of Systems Constitutional: + fever; no chills Respiratory: no dyspnea Cardiovascular: no chest pain Gastrointestinal: + abdominal pain (lower abdominal crampi ng and pressure feeling in the rectum) and + constipation; no bloating, no nausea and no vomiting Genitourinary: no problem reported Physical Exam Physical Exam: awake, somewhat fatigue appearing. no acute distress Constitutional: well developed and well nourished; no acute distress Respiratory: normal respiratory effort on supplemental O2 Cardiovascular: Rate/Rhythm: regular rate Gastrointestinal (Abdomen): Inspection/Auscultation: + abdomen distended (mild) Percussion/Palpation: + abdomen tender (ttp in L mid and L lower abdomen) and abdomen soft; abdomen not rigid and abdomen not firm no peritonitis Results & Data Vital Signs (Past 12 Hours) Vital Signs Temp Pulse Pulse Resp BP BP Pulse Ox 04/25/24 13:33 77 18 89/51 L 94 04/25/24 12:19 79 04/25/24 10:42 103.3 F H 89 27 H 159/71 H 93 O2 Del Method O2 Flow Rate 04/25/24 13:33 Nasal Cannula 1 04/25/24 12:19 04/25/24 10:42 Room Air Diagnostic Findings ABDOMEN AND PELVIS CT WITHOUT CONTRAST CT DOSE: 1999.46 mGy.cm HISTORY: abdominal distension TECHNIQUE: Multiaxial CT images of the abdomen and pelvis were performed without contrast. A dose lowering technique was utilized adhering to the principles of ALARA. COMPARISON STUDY: Abdomen and pelvis CT 02/27/2023. FINDINGS: Mild dependent changes seen within the lung bases. There is a small amount of scattered pneumoperitoneum identified. This is secondary to the suspected perforated acute sigmoid diverticulitis at the mid sigmoid colon. The pericolonic inflammatory change surrounds the mid sigmoid colon. There are a few loculated gas and fluid collections within the pelvis consistent with abscesses. The pericolonic abscess inferior to the mid sigmoid colon measures 5.5 x 4.0 cm. There is also 4.8 x 4.4 cm abscess within the pelvic cul-de-sac. There is a 6.8 x 1.3 cm abscess along the right deep pelvis on image 283. These abscesses may connect. No dilated loops of bowel to suggest an obstruction. Normal appendix. Hysterectomy. Mild bladder wall thickening. This may be reactive. No evidence for a bladder fistula at this time. L3-S1 posterior decompression and fusion again noted. There are healing bilateral anterior rib fractures. No acute fractures identified. There is an old moderate inferior endplate compression fracture at T12, unchanged. There is mild cardiomegaly. Mild hepatic steatosis. Prior cholecystectomy. The unenhanced pancreas, spleen, and adrenal glands unremarkable. There is a punctate cortical calcification within the right kidney. No renal or ureteral calculi. No hydronephrosis. No retroperitoneal lymphadenopathy. Calcified plaque within the normal caliber abdominal aorta. IMPRESSION: 1. Perforated acute sigmoid diverticulitis as described above with a small amount of pneumoperitoneum and pericolonic abscesses. 2. Mild bladder wall thickening. This is likely reactive to the acute diverticulitis. No evidence for a fistula. 3. No evidence for bowel obstruction. 4. Normal appendix. 5. Additional findings as described above. ACT 112: Negative or not required by law. Electronically signed by: Sonny Moody M.D. 04/25/2024 1:00 PM PG Care Time/CCT Total # of Minutes Spent Total Time Spent with Patient: Total time spent is greater than 50% in coordination of care (as documented) at patient's floor/unit and/or counseling patient: Coding Level of Care Code 93462 OP VST NEW MOD 45 MIN Diagnoses Diverticulitis of sigmoid colon K57.32 Severe sepsis A41.9; R65.20
[2024-04-25 15:07] LABS: Partial Thromboplastin Ratio 1.2; Partial Thromboplastin Time 31 Seconds (21-31); Prothrombin Time 11.3 Seconds (9.0-12.0)
--- NOTE | 2024-04-25 16:52 | Pharmacy Report ---
Pharmacy PK ABX Note - Date of Service April 25, 2024 - Assessment and Plan Laboratory Tests 04/25/24 11:18 WBC 16.40 H Creatinine 1.73 H Est Cr Clr Drug Dosing 32.8 Lactate 2.0 Procalcitonin 0.35 04/25/24 10:42 04/25/24 16:43 Temperature 39.6 C H 37.0 C Assessment 69 year old F receiving IV Vancomycin + Zosyn for treatment of perforated acute sigmoid diverticulitis with a small amount of pneumoperitoneum and pericolonic abscesses. Pertinent microbiologic data includes: Hx MRSA URINE 05/2023, Blood and urine cultures pending. WBC 16.4, febrile on arrival, no longer febrile. Day # 1 of antimicrobial therapy. Plan Vancomycin * Loading dose: 1500 mg IV x 1 * Maintenance dose: 1250 mg IV every 24 hours * Estimated T1/2 = 23hr Neal= 0.03hr-1 * Regimen is predicted to achieve target AUC/RAFFI of 400-600 mg/L.hr * Trough level ordered for: 04/27/24 Zosyn 4.5g IV x1 over 30 min, then q8H extended interval infusion for CrCl > 20ml/min Pharmacy will continue to follow and will adjust dose/frequency as necessary. Thank you.
[2024-04-25] MEDS: PIPER/TAZO 4.5g in D5W MINI-B 100 ML IV ONE (16:59)
[2024-04-25] MEDS: ICU Protocol for HYPERglycemia SCH (17:03)
[2024-04-25] MEDS: NOREPINEPHRINE/D5W 4 MG/250 ML PLCT IV SCH (17:04)
[2024-04-25] MEDS: STAT IV Infusion **Titration per Protocol STA (17:04)
--- NOTE | 2024-04-25 17:17 | Critical Care Progress Note ---
Date of Service April 25, 2024 Assessment & Plan (1) Sepsis: Plan: Reason Critically Ill: 69-year-old female with perforated viscus and sepsis of intra-abdominal origin PLAN: Neuro: Acute encephalopathy: Resolved -Reports she was stating abnormal things to her this resolved after medication and fluids in the emergency department Resp: [] - [] CV: History of paroxysmal atrial fibrillation -On Eliquis for systemic anticoagulation Fluids/Renal: Chronic kidney disease: Baseline creatinine appears to range from 1.5-1.7 -Maintenance fluid at 80 mL/h ID: Sepsis -Continue Zosyn and vancomycin GI/Nutrition: Perforated viscus N.p.o. -Reviewed general surgery consult Heme: Baseline anemia: Hemoglobin appears to hover around 11 -Type and screen ordered DVT prophylaxis: Last dose of Eliquis yesterday evening, SCDs Endocrine: ICU hyperglycemia protocol History of rheumatoid arthritis on chronic prednisone therapy -Stress dose steroids administered Vascular access: Peripheral IVs, patient verbally consented to blood transfusion, central venous access, arterial line, intubation should they be needed Code Status: Full code Disposition: ICU Admission and Anticipated Discharge Date Admission Date: April 25, 2024 Subjective Patient reports that she generally feels well and is very surprised she has the findings she does in her abdomen. She reports that she had a similar presentation for acute cholecystitis which necessitated urgent surgery. She reports she was prompted to come to the emergency department today because of fever and acting funny towards her . I have reviewed the ED notes, history and physical, and surgical consultation. Patient reports she has not had a bowel movement in 7 days Physical Exam Physical Exam: General: Alert. nontoxic. Skin: Warm, dry, Head: Atraumatic Ears, nose, mouth and throat: airway patent Cardiovascular: Normal peripheral perfusion Respiratory: no respiratory distress Gastrointestinal: Non distended, not tympanic, no guarding no rebound, Musculoskeletal: No deformity Results & Data Results & Data Vital Signs (Past 12 Hours) Vital Signs Temp Pulse Pulse Resp BP BP Pulse Ox 04/25/24 16:43 37.0 C 98 H 16 114/60 97 04/25/24 15:46 107/57 L 04/25/24 15:26 79 16 95/49 L 96 04/25/24 15:00 77 15 95/57 L 95 04/25/24 14:54 77 16 95 04/25/24 14:12 77 19 96 04/25/24 14:00 87/48 L 04/25/24 13:51 78 16 95 04/25/24 13:48 98/54 L 04/25/24 13:48 98/54 L 04/25/24 13:48 76 15 95 04/25/24 13:42 76 14 94 04/25/24 13:33 77 18 89/51 L 94 04/25/24 13:14 89/51 L 04/25/24 13:09 80 18 85 L 04/25/24 13:03 79 17 86 L 04/25/24 12:30 80 16 90 04/25/24 12:19 79 04/25/24 12:00 81 19 90 04/25/24 11:30 84 14 90 04/25/24 11:00 87 15 92 04/25/24 10:48 87 20 92 04/25/24 10:42 39.6 C H 89 27 H 159/71 H 93 O2 Del Method O2 Flow Rate 04/25/24 16:43 Nasal Cannula 2 04/25/24 15:46 04/25/24 15:26 Room Air 04/25/24 15:00 04/25/24 14:54 04/25/24 14:12 Nasal Cannula 1 04/25/24 14:00 04/25/24 13:51 Nasal Cannula 1 04/25/24 13:48 04/25/24 13:48 04/25/24 13:48 04/25/24 13:42 04/25/24 13:33 Nasal Cannula 1 04/25/24 13:14 Nasal Cannula 1 04/25/24 13:09 04/25/24 13:03 04/25/24 12:30 04/25/24 12:19 04/25/24 12:00 04/25/24 11:30 04/25/24 11:00 04/25/24 10:48 04/25/24 10:42 Room Air Critical Care Results & Data Vital Signs (Past 12 Hours) Vital Signs Temp Pulse Pulse Resp BP BP Pulse Ox 04/25/24 17:15 37.7 C H 79 18 110/51 L 90 04/25/24 17:11 37.6 C H 79 102/60 92 04/25/24 17:10 80 04/25/24 17:06 37.4 C 80 24 102/60 90 04/25/24 16:48 79 22 111/58 L 91 04/25/24 16:43 114/62 04/25/24 16:43 37.0 C 98 H 16 114/60 97 04/25/24 15:46 107/57 L 04/25/24 15:26 79 16 95/49 L 96 04/25/24 15:00 77 15 95/57 L 95 04/25/24 14:54 77 16 95 04/25/24 14:12 77 19 96 04/25/24 14:00 87/48 L 04/25/24 13:51 78 16 95 04/25/24 13:48 98/54 L 04/25/24 13:48 98/54 L 04/25/24 13:48 76 15 95 04/25/24 13:42 76 14 94 04/25/24 13:33 77 18 89/51 L 94 04/25/24 13:14 89/51 L 04/25/24 13:09 80 18 85 L 04/25/24 13:03 79 17 86 L 04/25/24 12:30 80 16 90 04/25/24 12:19 79 04/25/24 12:00 81 19 90 04/25/24 11:30 84 14 90 04/25/24 11:00 87 15 92 04/25/24 10:48 87 20 92 04/25/24 10:42 39.6 C H 89 27 H 159/71 H 93 O2 Del Method O2 Flow Rate 04/25/24 17:15 Room Air 04/25/24 17:11 Room Air 04/25/24 17:10 04/25/24 17:06 Room Air 04/25/24 16:48 Room Air 04/25/24 16:43 04/25/24 16:43 Nasal Cannula 2 04/25/24 15:46 04/25/24 15:26 Room Air 04/25/24 15:00 04/25/24 14:54 04/25/24 14:12 Nasal Cannula 1 04/25/24 14:00 04/25/24 13:51 Nasal Cannula 1 04/25/24 13:48 04/25/24 13:48 04/25/24 13:48 04/25/24 13:42 04/25/24 13:33 Nasal Cannula 1 04/25/24 13:14 Nasal Cannula 1 04/25/24 13:09 04/25/24 13:03 04/25/24 12:30 04/25/24 12:19 04/25/24 12:00 04/25/24 11:30 04/25/24 11:00 04/25/24 10:48 04/25/24 10:42 Room Air Lab & Micro Results (Past 24 Hours) RBC 3.86 M/uL (4.20-5.40) L 04/25/24 WBC 16.40 K/ul (4.8-10.8) H 04/25/24 Hgb 11.3 g/dl (12.0-16.0) L 04/25/24 Hct 37.3 % (37.0-47.0) 04/25/24 MCV 96.6 fL (80.0-100.0) 04/25/24 MCH 29.3 pg (25.0-34.0) 04/25/24 MCHC 30.3 g/dL (32.0-36.0) L 04/25/24 RDW Standard Deviation 51.8 fL (36.4-46.3) H 04/25/24 RDW Coefficient of Variation 14.6 % (11.5-14.5) H 04/25/24 Plt Count 233 K/uL (130-400) 04/25/24 MPV 10.4 fL (9.4-12.4) 04/25/24 Neutrophils (%) (Auto) 89.1 % 04/25/24 Lymphocytes (%) (Auto) 3.8 % 04/25/24 Monocytes # (Auto) 0.98 K/uL (0.11-0.59) H 04/25/24 Eosinophils # (Auto) 0.01 K/uL (0.00-0.50) 04/25/24 Immature Granulocyte % (Auto) 0.9 % 04/25/24 Neutrophils # (Auto) 14.63 K/uL (1.40-6.50) H 04/25/24 Lymphocytes # (Auto) 0.62 K/uL (1.20-3.40) L 04/25/24 Monocytes # (Auto) 0.98 K/uL (0.11-0.59) H 04/25/24 Eosinophils # (Auto) 0.01 K/uL (0.00-0.50) 04/25/24 Basophils # (Auto) 0.02 K/uL (0.00-0.20) 04/25/24 Immature Granulocyte # (Auto) 0.14 K/uL (0.01-0.20) 4 Na 136 mmol/L (136-145) 04/25/24 K 4.3 mmol/L (3.5-5.1) 04/25/24 Cl 102 mmol/L (98-107) 04/25/24 CO2 25 mmol/L (21-32) 04/25/24 Anion Gap 9 (3-11) 04/25/24 BUN 37 mg/dl (6-23) H 04/25/24 Creatinine 1.73 mg/dl (0.6-1.2) H 04/25/24 Estimated GFR ( Amer) 34.3 ml/min 04/25/24 Estimated GFR (Non-Af Amer) 29.6 ml/min 04/25/24 BUN/Creatinine Ratio 21.4 (10-20) H 04/25/24 Glu 143 mg/dl (70-99(Fasting)) H 04/25/24 Ca 8.4 mg/dl (8.6-10.3) L 04/25/24 Total Bilirubin 0.3 mg/dl (0.2-1.0) 04/25/24 Direct Bilirubin 0.1 mg/dl (0-0.2) 04/25/24 AST 14 U/L (13-39) 04/25/24 ALT 13 U/L (7-52) 04/25/24 Alkaline Phosphatase 93 U/L (34-104) 04/25/24 TP 6.8 gm/dl (6.0-8.3) 04/25/24 Albumin 3.8 gm/dl (3.4-5.0) 04/25/24 Mg 2.2 mg/dl (1.7-2.4) 04/25/24 11:18 Calcium Level 8.4 mg/dl (8.6-10.3) L 04/25/24 11:18 Prothromb Time International Ratio 1.0 (0.9-1.1) 04/25/24 11:1 8 Diagnostic Findings (Past 24 Hours) Chest X-Ray 04/25/24 10:41 XR chest 1V portable HISTORY: Sepsis COMPARISON: Chest 01/13/2024. FINDINGS: No pneumothorax. No pleural effusions. The cardiac silhouette remains mildly enlarged. There are calcifications within the mitral annulus. No focal lung consolidations to suggest a pneumonia. No evidence for pulmonary edema. No acute fractures. IMPRESSION: No significant change compared to the prior study. No acute process. ACT 112: Negative or not required by law. Electronically signed by: Sonny Moody M.D. 04/25/2024 11:[address] 04/25/24 10:[address] DOSE: HISTORY: Altered mental status, on eliquis TECHNIQUE: Multiaxial CT images of the head were performed without the use of intravenous contrast. Automated exposure control was utilized for this study. A dose lowering technique was utilized adhering to the principles of ALARA. Comparison: Head CT 11/07/2022. Findings: Mild mucosal thickening within the right maxillary sinus. The mastoid air cells are clear. The calvarium and skull base are intact. There is no mass, hematoma, midline shift, acute infarct. White matter hypodensity is nonspecific but suggestive of microvascular ischemic change. The ventricles and sulci demonstrate mild age-related involutional changes. There is an old lacunar infarct within the left basal ganglia, unchanged. There is a punctate calcification within the left parietal lobe. Impression: No significant change compared to the prior study. No acute intracranial abnormality. ACT 112: Negative or not required by law. Electronically signed by: Sonny Moody M.D. 04/25/2024 12:49 PM Abdomen/Pelvis CT 04/25/24 12:[address] WITHOUT CONTRAST CT DOSE: 1998.46 mGy.cm HISTORY: abdominal distension TECHNIQUE: Multiaxial CT images of the abdomen and pelvis were performed without contrast. A dose lowering technique was utilized adhering to the principles of ALARA. COMPARISON STUDY: Abdomen and pelvis CT 02/27/2023. FINDINGS: Mild dependent changes seen within the lung bases. There is a small amount of scattered pneumoperitoneum identified. This is secondary to the suspected perforated acute sigmoid diverticulitis at the mid sigmoid colon. The pericolonic inflammatory change surrounds the mid sigmoid colon. There are a few loculated gas and fluid collections within the pelvis consistent with abscesses. The pericolonic abscess inferior to the mid sigmoid colon measures 5.5 x 4.0 cm. There is also 4.8 x 4.4 cm abscess within the pelvic cul-de-sac. There is a 6.8 x 1.3 cm abscess along the right deep pelvis on image 283. These abscesses may connect. No dilated loops of bowel to suggest an obstruction. Normal appendix. Hysterectomy. Mild bladder wall thickening. This may be reactive. No evidence for a bladder fistula at this time. L3-S1 posterior decompression and fusion again noted. There are healing bilateral anterior rib fractures. No acute fractures identified. There is an old moderate inferior endplate compression fracture at T12, unchanged. There is mild cardiomegaly. Mild hepatic steatosis. Prior cholecystectomy. The unenhanced pancreas, spleen, and adrenal glands unremarkable. There is a punctate cortical calcification within the right kidney. No renal or ureteral calculi. No hydronephrosis. No retroperitoneal lymphadenopathy. Calcified plaque within the normal caliber abdominal aorta. IMPRESSION: 1. Perforated acute sigmoid diverticulitis as described above with a small amount of pneumoperitoneum and pericolonic abscesses. 2. Mild bladder wall thickening. This is likely reactive to the acute diverticulitis. No evidence for a fistula. 3. No evidence for bowel obstruction. 4. Normal appendix. 5. Additional findings as described above. ACT 112: Negative or not required by law. Electronically signed by: Sonny Moody M.D. 04/25/2024 1:00 PM I & O Totals 24 Hours 04/24/24 04/25/24 04/26/24 06:59 06:59 06:59 Intake Total 2630 / 2630 Output Total 350 / 350 Balance 2280 / 2280 Cumulative 04/25/24 10:21 thru 04/25/24 17:11 Intake Total 2630 Output Total 350 Balance 2280 RT Ventilator Mngmt (Last Documented) Ventilator Ordered Settings Respiratory Rate 18 04/25/24 17:15 Ventilator - PT Measurements Respiratory Rate 18 Coding Diagnoses Sepsis A41.9 Sepsis acute organ dysfunction status: unspecified Sepsis type: sepsis due to unspecified organism (1) Sepsis Sepsis acute organ dysfunction status: unspecified Sepsis type: sepsis due to unspecified organism Qualified Code(s): A41.9 - Sepsis, unspecified organism
[2024-04-25] MEDS ORDERED: DEXTROSE 50% 50 ML SYRINGE IV PRN (17:33)
[2024-04-25] MEDS ORDERED: GLUCOSE 40% GEL 15 GM TUBE PO PRN (17:33)
[2024-04-25] MEDS ORDERED: GLUCOSE 10 TAB/TUBE PO PRN (17:33)
[2024-04-25] MEDS ORDERED: CARBOHYDRATES FOR HYPOGLYCEMIA PO PRN (17:33)
[2024-04-25] MEDS ORDERED: GLUCAGON FOR INJ 1 MG VIAL SQ PRN (17:33)
--- NOTE | 2024-04-25 17:47 | Critical Care Consultation ---
Date of Consultation April 25, 2024 Assessment & Plan (1) Sepsis: Reason Critically Ill: 69-year-old female with sepsis from intra-abdominal source PLAN: Neuro: Encephalopathy: Resolved -Improved after resuscitation in ED CV: Atrial fibrillation -On Eliquis for systemic anticoagulation Fluids/Renal: Chronic kidney disease: Creatinine ranging from 1.3-1.7 -maintenance fluids at 80 mL/h ID: Sepsis -Continue vancomycin and Zosyn GI/Nutrition: N.p.o. Perforated viscus -Reviewed general surgery consultation Heme: Baseline anemia: Hemoglobin appears to average around 11 -2 units type and screen DVT prophylaxis: SCDs, last dose Eliquis yesterday evening Endocrine: ICU hyperglycemia protocol Chronic prednisone therapy: 5 mg daily -On stress dose steroids Vascular access: Peripheral IVs Code Status: Full code Disposition: ICU -Patient verbally consented for blood transfusion, central venous access, arterial line, intubation (2) Persistent atrial fibrillation: History of Present Illness Reason for Consultation: Sepsis from perforated viscus Attending Physician: Carl Strickland MD History of Present Illness Patient is a 69-year-old female who presented to the emergency department for fever and acting abnormal per her 's report. She was found to have a perforated viscus. She was started on antibiotics and fluids in the emergency department and clinically improved. Patient reports she has had episodes of sepsis in the past, she was most recently in the emergency department last year and was found to have gallstones and acute cholecystitis much to her surprise as she was feeling a largely asymptomatic and not exhibiting.no pain. Today during my exam evaluation the patient reports that she feels remarkably well, not experiencing abdominal pain. She is oriented to person time and place. Allergies Allergy/AdvReac Type Severity Reaction Status Date / Time tetracycline Allergy Severe Facial rash Verified 04/25/24 13:13 methenamine Allergy Intermediate Swelling Verified 04/25/24 13:13 of Lip/Tongue/Throat Gsopbqh-IVT-RjF Reductase AdvReac Intermediate LE edema Verified 04/25/24 13:13 Inhibitor [Hfgbtkh-Rlc-Kvb Reductase Inhibitor] morphine AdvReac Mild Nausea Verified 04/25/24 13:13 oxycodone AdvReac Mild Drowsy Verified 04/25/24 13:13 Home Medications Medication Instructions Recorded Confirmed Type cholecalciferol (vitamin D3) 25 1,000 unit PO QAM 10/26/18 04/25/24 History mcg (1,000 unit) capsule (Vitamin D3) magnesium 250 mg tablet 250 mg PO HS 10/26/18 04/25/24 History acetaminophen 500 mg tablet 1,000 mg PO Q6H PRN Pain 12/24/18 04/25/24 History (Tylenol Extra Strength) L.acidop,casei,lactis,rham-B.lact,reyes 1 cap PO HS 12/12/22 04/25/24 History 625 mg (10 billion cell) capsule (Advanced Probiotic) furosemide 20 mg tablet (Lasix) 20 mg PO DAILY PRN edema of legs 12/13/22 04/25/24 Rx #30 tabs metoprolol succinate 100 mg 100 mg PO BID #180 tabs 01/13/23 04/25/24 Rx tablet,extended release 24 hr OneTouch Delica Plus Lancet 33 #100 ea 05/21/23 04/25/24 Rx gauge (lancets) OneTouch Verio Reflect Meter #1 ea 05/21/23 04/25/24 Rx (blood-glucose meter) OneTouch Verio test strips (blood #100 ea 05/21/23 04/25/24 Rx sugar diagnostic) pen needle, diabetic 31 gauge x #100 ea 09/18/23 04/25/24 Rx 1/4" amiodarone 200 mg tablet 200 mg PO HS #90 tabs 09/21/23 04/25/24 Rx apixaban 5 mg tablet (Eliquis) 5 mg PO BID #180 tabs 09/21/23 04/25/24 Rx insulin glargine 100 unit/mL (3 5 unit (0.05 mL) subcut HS #15 mL 11/05/23 04/25/24 Rx mL) subcutaneous pen (Lantus Solostar U-100 Insulin) gabapentin 300 mg capsule 600 mg PO HS 01/14/24 04/25/24 History semaglutide 0.25 mg or 0.5 mg (2 0.5 mg subcut Q7D 01/14/24 04/25/24 History mg/3 mL) subcutaneous pen injector (Ozempic) sulfamethoxazole 800 1 tab PO QAM preventative 01/14/24 04/25/24 History mg-trimethoprim 160 mg tablet (Bactrim DS) levothyroxine 112 mcg tablet 112 mcg PO DAILY 01/30/24 04/25/24 History omeprazole 20 mg capsule,delayed 20 mg PO DAILY 01/30/24 04/25/24 History release prednisone 5 mg tablet 5 mg PO DAILY 01/30/24 04/25/24 History tramadol 50 mg tablet 50 mg PO Q6H PRN pain, moderate 01/30/24 04/25/24 Rx #30 tabs cyclobenzaprine 10 mg tablet 10 mg PO DAILY PRN muscle spasm 04/25/24 04/25/24 History Patient History Medical History Chronic steroid use On anticoagulant therapy History of cardioversion 12/13/22 and 12/31/22 ([facility]) History of stroke Vertebrobasilar artery brainstem stroke 2020, slight residual right sided weakness Given TPA on 04/21/2021 with resolution of symptoms History of recent blood transfusion 09/18/22 @ [facility] History of COVID-19 2020- hospitalized at [facility] for 9 days, no issues now GERD (gastroesophageal reflux disease) Anxiety Stenosis of left internal carotid artery 50-69% stenosis of left ICA per 04/2021 neck CTA Stenosis of left vertebral artery Approximately 90% stenosis within V4 segment of left vertebral artery per 04/21/2021 neck CTA History of MRSA infection lumbar surgical incision s/p vanco/ceftriaxone/bactrim per 04/2019 [facility] discharge summary 2022 - positive nasal swab Lumbar radiculopathy Spinal stenosis Diabetes mellitus type II, controlled Surgical History History of lithotripsy 03/2023 at [facility] --> right kidney stone History of esophagogastroduodenoscopy (EGD) Hx of colonoscopy Hx laparoscopic cholecystectomy (02/12/23) Robotic Assisted Laparoscopic Cholecystectomy (Not Applicable) - Otto Fish DO History of ERCP w/stent placement; s/p stent removal also History of lumbar surgery Lumbar Spine Wound Revision 2019 Status post laminectomy with spinal fusion L2-L5 laminectomy/fusion (12/24/18): Grade view 1, MAC#3, ETT 7.0 Hx of tonsillectomy History of x2 History of total left knee replacement History of hysterectomy total Family History Father Diabetes Lung cancer Cancer Hypertension Mother Malignant neoplasm of brain Diabetes Brain tumor Cancer Hypertension Aunt Breast cancer Sister Hypertension Other No family history of adverse response to anesthesia Denies family history of Ovarian cancer Prostate cancer Myocardial infarction Colorectal cancer Social History Smoking Status: Never smoker Second Hand Exposure: Yes (hx); Hx Alcohol Use: No Hx Substance Use: No Preferred Language: Montserratian Communication Ability: Effective Visual Impairment: No Limitations Hearing Ability: Normal Cash Reconciliation Specialist Required: No Beliefs That Will Affect Care: None marital status: Current Living Situation: Spouse Current Living Situation Comment: 1 level home current occupational status: retired How many Children do You have: 2 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 Feels Safe at Home: Yes Safety Concerns: Feels Safe At This Time Childhood Exposure to Second-Hand Smoke: Yes Diet: gluten free caffeine: Yes Dental Care, Regularly: Yes Physical Activity Frequency: 5-6 Times per Week Physical Activity Frequency Comment: gym Seatbelt Use: always Sunscreen Use: Yes Do you think of yourself as: straight/heterosexual Assistive Devices: Cane and Walker Physical Exam Physical Exam: General: Alert. nontoxic. Skin: Warm, dry, Head: Atraumatic Ears, nose, mouth and throat: airway patent Cardiovascular: Normal peripheral perfusion Respiratory: no respiratory distress Gastrointestinal: Non distended, soft no guarding no rebound, no peritoneal signs Musculoskeletal: No deformity Results & Data Results & Data Vital Signs (Past 12 Hours) Vital Signs Temp Pulse Pulse Resp BP BP Pulse Ox 04/25/24 17:15 37.7 C H 79 18 110/51 L 90 04/25/24 17:11 37.6 C H 79 102/60 92 04/25/24 17:10 80 04/25/24 17:06 37.4 C 80 24 102/60 90 04/25/24 16:48 79 22 111/58 L 91 04/25/24 16:43 114/62 04/25/24 16:43 37.0 C 98 H 16 114/60 97 04/25/24 15:46 107/57 L 04/25/24 15:26 79 16 95/49 L 96 04/25/24 15:00 77 15 95/57 L 95 04/25/24 14:54 77 16 95 04/25/24 14:12 77 19 96 04/25/24 14:00 87/48 L 04/25/24 13:51 78 16 95 04/25/24 13:48 98/54 L 04/25/24 13:48 98/54 L 04/25/24 13:48 76 15 95 04/25/24 13:42 76 14 94 04/25/24 13:33 77 18 89/51 L 94 04/25/24 13:14 89/51 L 04/25/24 13:09 80 18 85 L 04/25/24 13:03 79 17 86 L 04/25/24 12:30 80 16 90 04/25/24 12:19 79 04/25/24 12:00 81 19 90 04/25/24 11:30 84 14 90 04/25/24 11:00 87 15 92 04/25/24 10:48 87 20 92 04/25/24 10:42 39.6 C H 89 27 H 159/71 H 93 O2 Del Method O2 Flow Rate 04/25/24 17:15 Room Air 04/25/24 17:11 Room Air 04/25/24 17:10 04/25/24 17:06 Room Air 04/25/24 16:48 Room Air 04/25/24 16:43 04/25/24 16:43 Nasal Cannula 2 04/25/24 15:46 04/25/24 15:26 Room Air 04/25/24 15:00 04/25/24 14:54 04/25/24 14:12 Nasal Cannula 1 04/25/24 14:00 04/25/24 13:51 Nasal Cannula 1 04/25/24 13:48 04/25/24 13:48 04/25/24 13:48 04/25/24 13:42 04/25/24 13:33 Nasal Cannula 1 04/25/24 13:14 Nasal Cannula 1 04/25/24 13:09 04/25/24 13:03 04/25/24 12:30 04/25/24 12:19 04/25/24 12:00 04/25/24 11:30 04/25/24 11:00 04/25/24 10:48 04/25/24 10:42 Room Air Critical Care Results & Data Vital Signs (Past 12 Hours) Vital Signs Temp Pulse Pulse Resp BP BP Pulse Ox 04/25/24 17:46 37.7 C H 77 15 107/60 96 04/25/24 17:36 37.7 C H 77 19 116/65 95 04/25/24 17:15 37.7 C H 79 18 110/51 L 90 04/25/24 17:11 37.6 C H 79 102/60 92 04/25/24 17:10 80 04/25/24 17:06 37.4 C 80 24 102/60 90 04/25/24 16:48 79 22 111/58 L 91 04/25/24 16:43 114/62 04/25/24 16:43 37.0 C 98 H 16 114/60 97 04/25/24 15:46 107/57 L 04/25/24 15:26 79 16 95/49 L 96 04/25/24 15:00 77 15 95/57 L 95 04/25/24 14:54 77 16 95 04/25/24 14:12 77 19 96 04/25/24 14:00 87/48 L 04/25/24 13:51 78 16 95 04/25/24 13:48 98/54 L 04/25/24 13:48 98/54 L 04/25/24 13:48 76 15 95 04/25/24 13:42 76 14 94 04/25/24 13:33 77 18 89/51 L 94 04/25/24 13:14 89/51 L 04/25/24 13:09 80 18 85 L 04/25/24 13:03 79 17 86 L 04/25/24 12:30 80 16 90 04/25/24 12:19 79 04/25/24 12:00 81 19 90 04/25/24 11:30 84 14 90 04/25/24 11:00 87 15 92 04/25/24 10:48 87 20 92 04/25/24 10:42 39.6 C H 89 27 H 159/71 H 93 O2 Del Method O2 Flow Rate 04/25/24 17:46 Nasal Cannula 2 04/25/24 17:36 Nasal Cannula 2 04/25/24 17:15 Room Air 04/25/24 17:11 Room Air 04/25/24 17:10 04/25/24 17:06 Room Air 04/25/24 16:48 Room Air 04/25/24 16:43 04/25/24 16:43 Nasal Cannula 2 04/25/24 15:46 04/25/24 15:26 Room Air 04/25/24 15:00 04/25/24 14:54 04/25/24 14:12 Nasal Cannula 1 04/25/24 14:00 04/25/24 13:51 Nasal Cannula 1 04/25/24 13:48 04/25/24 13:48 04/25/24 13:48 04/25/24 13:42 04/25/24 13:33 Nasal Cannula 1 04/25/24 13:14 Nasal Cannula 1 04/25/24 13:09 04/25/24 13:03 04/25/24 12:30 04/25/24 12:19 04/25/24 12:00 04/25/24 11:30 04/25/24 11:00 04/25/24 10:48 04/25/24 10:42 Room Air Lab & Micro Results (Past 24 Hours) RBC 3.86 M/uL (4.20-5.40) L 04/25/24 WBC 16.40 K/ul (4.8-10.8) H 04/25/24 Hgb 11.3 g/dl (12.0-16.0) L 04/25/24 Hct 37.3 % (37.0-47.0) 04/25/24 MCV 96.6 fL (80.0-100.0) 04/25/24 MCH 29.3 pg (25.0-34.0) 04/25/24 MCHC 30.3 g/dL (32.0-36.0) L 04/25/24 RDW Standard Deviation 51.8 fL (36.4-46.3) H 04/25/24 RDW Coefficient of Variation 14.6 % (11.5-14.5) H 04/25/24 Plt Count 233 K/uL (130-400) 04/25/24 MPV 10.4 fL (9.4-12.4) 04/25/24 Neutrophils (%) (Auto) 89.1 % 04/25/24 Lymphocytes (%) (Auto) 3.8 % 04/25/24 Monocytes # (Auto) 0.98 K/uL (0.11-0.59) H 04/25/24 Eosinophils # (Auto) 0.01 K/uL (0.00-0.50) 04/25/24 Immature Granulocyte % (Auto) 0.9 % 04/25/24 Neutrophils # (Auto) 14.63 K/uL (1.40-6.50) H 04/25/24 Lymphocytes # (Auto) 0.62 K/uL (1.20-3.40) L 04/25/24 Monocytes # (Auto) 0.98 K/uL (0.11-0.59) H 04/25/24 Eosinophils # (Auto) 0.01 K/uL (0.00-0.50) 04/25/24 Basophils # (Auto) 0.02 K/uL (0.00-0.20) 04/25/24 Immature Granulocyte # (Auto) 0.14 K/uL (0.01-0.20) 4 Na 136 mmol/L (136-145) 04/25/24 K 4.3 mmol/L (3.5-5.1) 04/25/24 Cl 102 mmol/L (98-107) 04/25/24 CO2 25 mmol/L (21-32) 04/25/24 Anion Gap 9 (3-11) 04/25/24 BUN 37 mg/dl (6-23) H 04/25/24 Creatinine 1.73 mg/dl (0.6-1.2) H 04/25/24 Estimated GFR ( Amer) 34.3 ml/min 04/25/24 Estimated GFR (Non-Af Amer) 29.6 ml/min 04/25/24 BUN/Creatinine Ratio 21.4 (10-20) H 04/25/24 Glu 143 mg/dl (70-99(Fasting)) H 04/25/24 Ca 8.4 mg/dl (8.6-10.3) L 04/25/24 Total Bilirubin 0.3 mg/dl (0.2-1.0) 04/25/24 Direct Bilirubin 0.1 mg/dl (0-0.2) 04/25/24 AST 14 U/L (13-39) 04/25/24 ALT 13 U/L (7-52) 04/25/24 Alkaline Phosphatase 93 U/L (34-104) 04/25/24 TP 6.8 gm/dl (6.0-8.3) 04/25/24 Albumin 3.8 gm/dl (3.4-5.0) 04/25/24 Mg 2.2 mg/dl (1.7-2.4) 04/25/24 11:18 Calcium Level 8.4 mg/dl (8.6-10.3) L 04/25/24 11:18 Prothromb Time International Ratio 1.0 (0.9-1.1) 04/25/24 11:1 8 Diagnostic Findings (Past 24 Hours) Chest X-Ray 04/25/24 10:41 XR chest 1V portable HISTORY: Sepsis COMPARISON: Chest 01/13/2024. FINDINGS: No pneumothorax. No pleural effusions. The cardiac silhouette remains mildly enlarged. There are calcifications within the mitral annulus. No focal lung consolidations to suggest a pneumonia. No evidence for pulmonary edema. No acute fractures. IMPRESSION: No significant change compared to the prior study. No acute process. ACT 112: Negative or not required by law. Electronically signed by: Sonny Moody M.D. 04/25/2024 11:[address] 04/25/24 10:[address] DOSE: HISTORY: Altered mental status, on eliquis TECHNIQUE: Multiaxial CT images of the head were performed without the use of intravenous contrast. Automated exposure control was utilized for this study. A dose lowering technique was utilized adhering to the principles of ALARA. Comparison: Head CT 11/07/2022. Findings: Mild mucosal thickening within the right maxillary sinus. The mastoid air cells are clear. The calvarium and skull base are intact. There is no mass, hematoma, midline shift, acute infarct. White matter hypodensity is nonspecific but suggestive of microvascular ischemic change. The ventricles and sulci demonstrate mild age-related involutional changes. There is an old lacunar infarct within the left basal ganglia, unchanged. There is a punctate calcification within the left parietal lobe. Impression: No significant change compared to the prior study. No acute intracranial abnormality. ACT 112: Negative or not required by law. Electronically signed by: Sonny Moody M.D. 04/25/2024 12:49 PM Abdomen/Pelvis CT 07/14/24 12:[address] WITHOUT CONTRAST CT DOSE: 1999.46 mGy.cm HISTORY: abdominal distension TECHNIQUE: Multiaxial CT images of the abdomen and pelvis were performed without contrast. A dose lowering technique was utilized adhering to the principles of ALARA. COMPARISON STUDY: Abdomen and pelvis CT 02/27/2023. FINDINGS: Mild dependent changes seen within the lung bases. There is a small amount of scattered pneumoperitoneum identified. This is secondary to the suspected perforated acute sigmoid diverticulitis at the mid sigmoid colon. The pericolonic inflammatory change surrounds the mid sigmoid colon. There are a few loculated gas and fluid collections within the pelvis consistent with abscesses. The pericolonic abscess inferior to the mid sigmoid colon measures 5.5 x 4.0 cm. There is also 4.8 x 4.4 cm abscess within the pelvic cul-de-sac. There is a 6.8 x 1.3 cm abscess along the right deep pelvis on image 283. These abscesses may connect. No dilated loops of bowel to suggest an obstruction. Normal appendix. Hysterectomy. Mild bladder wall thickening. This may be reactive. No evidence for a bladder fistula at this time. L3-S1 posterior decompression and fusion again noted. There are healing bilateral anterior rib fractures. No acute fractures identified. There is an old moderate inferior endplate compression fracture at T12, unchanged. There is mild cardiomegaly. Mild hepatic steatosis. Prior cholecystectomy. The unenhanced pancreas, spleen, and adrenal glands unremarkable. There is a punctate cortical calcification within the right kidney. No renal or ureteral calculi. No hydronephrosis. No retroperitoneal lymphadenopathy. Calcified plaque within the normal caliber abdominal aorta. IMPRESSION: 1. Perforated acute sigmoid diverticulitis as described above with a small amount of pneumoperitoneum and pericolonic abscesses. 2. Mild bladder wall thickening. This is likely reactive to the acute diverticulitis. No evidence for a fistula. 3. No evidence for bowel obstruction. 4. Normal appendix. 5. Additional findings as described above. ACT 112: Negative or not required by law. Electronically signed by: Sonny Moody M.D. 04/25/2024 1:00 PM I & O Totals 24 Hours 04/24/24 04/25/24 04/26/24 06:59 06:59 06:59 Intake Total 2730 / 2730 Output Total 350 / 350 Balance 2380 / 2380 Cumulative 04/25/24 10:21 thru 04/25/24 17:32 Intake Total 2730 Output Total 350 Balance 2380 RT Ventilator Mngmt (Last Documented) Ventilator Ordered Settings Respiratory Rate 15 04/25/24 17:46 Ventilator - PT Measurements Respiratory Rate 15 Coding Level of Care Code 76375 IN/OBS CONSULT LVL 5,80M Diagnoses Sepsis A41.9 Sepsis acute organ dysfunction status: unspecified Sepsis type: sepsis due to unspecified organism Persistent atrial fibrillation I48.19 Time Spent (min) 60 (1) Sepsis Sepsis acute organ dysfunction status: unspecified Sepsis type: sepsis due to unspecified organism Qualified Code(s): A41.9 - Sepsis, unspecified organism
[2024-04-25] MEDS: PLASMA-LYTE A 1,000 ML IV SCH (17:48)
[2024-04-25] MEDS: INSULIN ASPART PER UNIT CHARGE SC SCH (18:52)
[2024-04-25] MEDS ORDERED: HYDROCORTISONE SOD SUCCINATE 100 MG/2 ML VIAL IV SCH (20:15)
[2024-04-25] MEDS: PIPERACILLIN/TAZOBACTAM 4.5 GM in DEXTROSE 5% MINI-B 100 ML IV SCH (20:45)
[2024-04-25] MEDS: HYDROCORTISONE SOD 50 MG in SYRINGE 0 ML IV SCH (20:47)
[2024-04-25] MEDS ORDERED: INSULIN ASPART PER UNIT CHARGE SC SCH (21:00)
[2024-04-26 05:07] LABS: Hematocrit (blood only) 30.1 % (37.0-47.0); Mean Corpuscular Hgb Conc 29.9 g/dL (32.0-36.0); Mean Corpuscular Volume 97.1 fL (80.0-100.0); Mean Platelet Volume 10.1 fL (9.4-12.4); Platelet Count 192 K/uL (130-400); RDW Coefficient of Variation 14.5 % (11.5-14.5); RDW Standard Deviation 51.1 fL (36.4-46.3); White Blood Count 17.09 K/ul (4.8-10.8)
[2024-04-26 05:23] LABS: BUN Creatinine Ratio 20.7 (10-20); Calcium 7.8 mg/dl (8.6-10.3); Creatinine Clr Calc Pharmacy 40.6 ml/min; Est GFR (African American) 44.3 ml/min; Est GFR (Non-African American) 38.2 ml/min; Magnesium 2.2 mg/dl (1.7-2.4); Potassium 4.1 mmol/L (3.5-5.1)
[2024-04-26 05:42] LABS: Basophils # (auto) 0.01 K/uL (0.00-0.20); Basophils % (auto) 0.1 %; Eosinophils # (auto) 0.01 K/uL (0.00-0.50); Eosinophils % (auto) 0.1 %; Immature Granulocytes # (auto) 0.08 K/uL (0.01-0.20); Immature Granulocytes % (auto) 0.5 %; Lymphocytes # (auto) 0.48 K/uL (1.20-3.40); Lymphocytes % (auto) 2.8 %; Monocytes # (auto) 0.86 K/uL (0.11-0.59); Neutrophils # (auto) 15.65 K/uL (1.40-6.50); Neutrophils % (auto) 91.5 %
[2024-04-26 07:22] LABS: Estimated Average Glucose 123 mg/dl; Hemoglobin A1C 5.9 % (4.5-5.6)
[2024-04-26] MEDS: VANCOMYCIN HCL 1,250 MG in SODIUM CHLORIDE 0.9% 250 ML IV SCH (08:07)
--- NOTE | 2024-04-26 08:10 | Critical Care Progress Note ---
Date of Service April 26, 2024 Assessment & Plan (1) Sepsis: Plan: Reason Critically Ill: 69-year-old female with sepsis from acute sigmoid diverticulitis with perforated viscus and possible pericolonic abscess PLAN: Neuro: Encephalopathy: Resolved -Improved after resuscitation in ED. Likely related to fever. CV: Atrial fibrillation -Eliquis currently on hold due to possible intervention such as surgery versus intra-abdominal drain. -Patient chronically on 5 mg prednisone for rheumatoid arthritis. Currently receiving stress dose steroids. Will decrease to 50 mg hydrocortisone daily. Fluids/Renal: Chronic kidney disease: Creatinine ranging from 1.3-1.7 -maintenance fluids at 80 mL/h ID: Sepsis -Continue vancomycin and Zosyn GI/Nutrition: N.p.o. Perforated viscus -Surgery to discuss with radiology today with regards to placing intra-abdominal drain. -Start Protonix 40 mg IV daily. Heme: Baseline anemia: Hemoglobin has trended down to 9. Will continue to monitor. Possible hemodilution. Holding anticoagulation. Start SCDs. -2 units type and screen DVT prophylaxis: SCDs, last dose Eliquis 04/24 Endocrine: ICU hyperglycemia protocol Chronic prednisone therapy: Hold at this time. -Decrease to 50 mg daily hydrocortisone. Vascular access: Peripheral IVs Code Status: Full code Disposition: Can likely downgrade to PCU status later today (2) Persistent atrial fibrillation: (3) Perforated diverticulum: (4) Pelvic abscess in female: Admission and Anticipated Discharge Date Admission Date: April 25, 2024 Subjective Patient seen and examined. She is hemodynamically stable. She continues with low-grade fever. Has mild left lower quadrant pain on palpation. Otherwise denies any major complaints. No vasopressor requirements or oxygen requirements at this time. 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 Review of Systems Review of Systems: All systems reviewed & are unremarkable except as noted in HPI & below Physical Exam Physical Exam: Constitutional: Patient appears to be of their stated age. Patient is in no apparent distress. Patient is well-developed. Eyes: Pupils are equal round and reactive to light. Conjunctivae are normal. Anicteric sclera. Ears nose, mouth and throat: No perioral cyanosis. Neck: Trachea is midline. Visual inspection is normal. Respiratory: Clear to auscultation bilaterally. No use of accessory muscles. No significant clubbing noted. Cardiovascular: Regular rate and rhythm. No murmurs. No edema. Gastrointestinal: Normal bowel sounds. Mildly tender to palpation on the left lower quadrant. No overt peritoneal signs. Musculoskeletal: No cyanosis. Patient is able to move all extremities. St rength is 5 out of 5 in the upper and lower extremities. Skin: No rashes, warm dry and intact. Neurologic: No obvious focal neurological deficits seen. Psychiatric: Alert and oriented x3 with a euthymic affect. Results & Data Results & Data Vital Signs (Past 12 Hours) Vital Signs Temp Pulse Resp BP Pulse Ox O2 Del Method O2 Flow Rate 04/26/24 08:00 37.8 C H 82 19 137/68 96 Nasal Cannula 2 04/26/24 07:21 38.0 C H 84 20 129/66 95 Nasal Cannula 2 04/26/24 06:06 38.2 C H 82 20 95 04/26/24 06:00 117/67 04/26/24 05:36 38.3 C H 82 17 95 04/26/24 05:33 38.3 C H 82 14 95 04/26/24 05:00 145/63 H 04/26/24 05:00 38.2 C H 80 16 97 04/26/24 04:33 38.1 C H 80 14 96 04/26/24 04:00 125/69 04/26/24 04:00 38.1 C H 78 15 96 04/26/24 03:33 38.0 C H 81 19 96 04/26/24 03:00 38.0 C H 78 14 95 04/26/24 03:00 118/65 04/26/24 02:30 38.0 C H 78 15 95 04/26/24 02:02 126/69 04/26/24 02:00 38.0 C H 79 14 95 04/26/24 01:30 37.9 C H 80 20 97 04/26/24 01:18 37.9 C H 78 14 96 04/26/24 01:00 110/62 04/26/24 00:45 37.9 C H 78 15 94 04/26/24 00:03 37.8 C H 78 15 92 04/26/24 00:00 126/65 04/26/24 00:00 126/65 04/26/24 00:00 126/65 04/26/24 00:00 126/65 04/25/24 23:54 37.8 C H 77 14 94 04/25/24 23:33 37.8 C H 77 14 95 04/25/24 23:09 37.7 C H 75 13 97 04/25/24 22:48 37.6 C H 79 15 92 04/25/24 22:00 37.7 C H 74 14 97 04/25/24 22:00 112/62 04/25/24 22:00 112/62 04/25/24 21:43 Nasal Cannula 2 04/25/24 21:30 37.8 C H 76 14 96 04/25/24 21:12 37.9 C H 75 20 97 04/25/24 21:00 123/66 04/25/24 21:00 123/66 04/25/24 21:00 123/66 04/25/24 20:39 37.8 C H 77 15 97 Coding Level of Care Code 72926 SUB INP/OBS CARE 3/50MIN Diagnoses Sepsis A41.9 Sepsis acute organ dysfunction status: unspecified Sepsis type: sepsis due to unspecified organism Persistent atrial fibrillation I48.19 Perforated diverticulum K57.80 Pelvic abscess in female N73.9 (1) Sepsis Sepsis acute organ dysfunction status: unspecified Sepsis type: sepsis due to unspecified organism Qualified Code(s): A41.9 - Sepsis, unspecified organism
[2024-04-26] MEDS ORDERED: ALBUMIN HUMAN 5% 12.5 GM/250 ML VIAL IV ONE (09:25)
[2024-04-26] MEDS ORDERED: MIDAZOLAM HCL 1 MG/ML 2ML VIAL ONE (09:26)
[2024-04-26] MEDS ORDERED: PROPOFOL IV EMULSION 10 MG/ML 20 ML VIAL IV ONE (09:26)
[2024-04-26] MEDS ORDERED: LIDOCAINE 2% 2 ML VIAL/AMP(20MG/ML) INFIL ONE (09:26)
[2024-04-26] MEDS ORDERED: fentaNYL citrate PF 100 MCG/2 ML VIAL ONE ×2 (09:26→13:16)
[2024-04-26] MEDS ORDERED: SUCCINYLCHOLINE CHLORIDE 20 MG/ML 10 ML VIAL IV ONE (09:26)
[2024-04-26] MEDS ORDERED: ROCURONIUM BROMIDE 10 MG/ML 5 ML VIAL IV ONE (09:26)
--- NOTE | 2024-04-26 09:32 | Surgery Progress Note ---
Date of Service April 26, 2024 Assessment & Plan (1) Perforated diverticulum: Plan: Daniela has been observed and resuscitated in the ICU o/n, treated with IV antibiotics. Her hemodynamics responded very well to resuscitation early on and she has remained HD stable overnight, normotensive and without tachycardia. She feels improved and remains without abdominal pain or abdominal complaints. Unfortunately her WBC did increase slightly this am and she has remained with persistent low grade fevers overnight, so intervention appears to be beneficial. After speaking with radiology and the harness worker, it has been determined by them that the the areas of perforation/collections are mostly air and that a percutaneous drainage would have little to contribute to the case in terms of draining purulent fluid. For this reason, the patient will be taken to the operating room this am for exploratory laparoscopy, possible open, formal abdominal washout and drainage, possible bowel resection, possible colostomy creation and all other indicated procedures. This possibility was explained to the patient, her and daughter in the ED last night at which time the consent was obtained. This has also been re- discussed with the patient at bedside and her via phone this am. Admission and Anticipated Discharge Date Admission Date: April 25, 2024 Subjective I have seen and examined Mrs. Champagne this am. She feels well, without pain, N/V. States she just has some mild pressure at the LLQ occasionally and feels as though her memory is better than it was when she arrived. This morning she mentions again that she has not had a bowel movement since last Friday. Physical Exam Constitutional: + obese; not ill appearing, not in distr ess and not diaphoretic Respiratory: normal respiratory effort; no respiratory distress, no labored breathing and does not use accessory muscles Cardiovascular: Rate/Rhythm: regular rate; not tachycardic Gastrointestinal (Abdomen): Inspection/Auscultation: abdomen normal to inspection Percussion/Palpation: + abdomen tender (minimal LLQ) and abdomen soft; no guarding and abdomen not rigid unimpressive abdominal examination Musculoskeletal: No edema, no pain Results & Data Vital Signs (Past 12 Hours) Vital Signs Temp Pulse Resp BP Pulse Ox O2 Del Method O2 Flow Rate 04/26/24 08:00 37.8 C H 82 19 137/68 96 Nasal Cannula 2 04/26/24 07:21 38.0 C H 84 20 129/66 95 Nasal Cannula 2 04/26/24 06:06 38.2 C H 82 20 95 04/26/24 06:00 117/67 04/26/24 05:36 38.3 C H 82 17 95 04/26/24 05:33 38.3 C H 82 14 95 04/26/24 05:00 145/63 H 04/26/24 05:00 38.2 C H 80 16 97 04/26/24 04:33 38.1 C H 80 14 96 04/26/24 04:00 125/69 04/26/24 04:00 38.1 C H 78 15 96 04/26/24 03:33 38.0 C H 81 19 96 04/26/24 03:00 38.0 C H 78 14 95 04/26/24 03:00 118/65 04/26/24 02:30 38.0 C H 78 15 95 04/26/24 02:02 126/69 04/26/24 02:00 38.0 C H 79 14 95 04/26/24 01:30 37.9 C H 80 20 97 04/26/24 01:18 37.9 C H 78 14 96 04/26/24 01:00 110/62 04/26/24 00:45 37.9 C H 78 15 94 04/26/24 00:03 37.8 C H 78 15 92 04/26/24 00:00 126/65 04/26/24 00:00 126/65 04/26/24 00:00 126/65 04/26/24 00:00 126/65 04/25/24 23:54 37.8 C H 77 14 94 04/25/24 23:33 37.8 C H 77 14 95 04/25/24 23:09 37.7 C H 75 13 97 04/25/24 22:48 37.6 C H 79 15 92 04/25/24 22:00 37.7 C H 74 14 97 04/25/24 22:00 112/62 04/25/24 22:00 112/62 04/25/24 21:43 Nasal Cannula 2 04/25/24 21:30 37.8 C H 76 14 96 PG Care Time/CCT Total # of Minutes Spent Total Time Spent with Patient: Total time spent is greater than 50% in coordination of care (as documented) at patient's floor/unit and/or counseling patient: Coding Level of Care Code 90187 SUB INP/OBS CARE MIN Diagnoses Perforated diverticulum K57.80
[2024-04-26] MEDS: LACTATED RINGER'S 1,000 ML IV SCH (09:53)
[2024-04-26] MEDS ORDERED: HYDROCORTISONE SOD SUCCINATE 100 MG/2 ML VIAL ONE (11:21)
[2024-04-26] MEDS ORDERED: ACETAMINOPHEN 1000 MG/100 ML IV IV ONE (12:01)
--- NOTE | 2024-04-26 12:29 | Electrocardiogram Report ---
Test Reason : Blood Pressure : / mmHG Vent. Rate : 088 BPM Atrial Rate : 088 BPM P-R Int : 164 ms QRS Dur : 072 ms QT Int : 342 ms P-R-T Axes : -10 017 033 degrees QTc Int : 413 ms Normal sinus rhythm Normal ECG When compared with ECG of 13-JAN-2024 12:16, QRS axis Shifted left Criteria for Inferior infarct are no longer Present T wave inversion no longer evident in Lateral leads Confirmed by Lance Walters ([id number]) on 04/26/2024 12:28:41 PM Referred By: REFERRED SELF Confirmed By:Lance Walters
[2024-04-26] MEDS ORDERED: SUGAMMADEX SODIUM 200 MG/2 ML VIAL IV ONE ×2 (13:00→13:15)
[2024-04-26] MEDS: BUPIVACAINE/EPINEPHRINE 0.5% MPF 1:200,000 30 ML VIAL ONE (13:20)
--- NOTE | 2024-04-26 13:28 | Operative Report ---
PG Post Operative Report Pre & Post Diagnosis Operation Date: 04/26/24 07:05 Pre-Op Diagnosis: Perforated Diverticulum Post-Op Diagnosis: Perforated Diverticulum Intra-abdominal abcesses I identified the patient and participated in the time-out.: Yes Procedure Operation Date: 04/26/24 07:05 Actual Procedures p Diagnostic Laparoscopy, drainage of intra-abdominal abcesses and lysis of adhesions (Not Applicable) - German Shultz DO Surgeon German Shultz DO Service Architect STEPHANIA Flower Estimated Blood Loss 3 Findings See Below Multiple abscess pockets containing copious amounts of purulent fluid Specimens None Drains 14Fr Otto drain Anesthesia Type General Complications None Indications 69y/o F sepsis without abdominal peritonitis or abdominal pain secondary perforated diverticulitis which caused the development of multiple abscesses within the abdomen and pelvis which were evaluated by IR and deemed undrainable by percutaneous measures. Description of Procedure The patient was brought back to the operating room and placed on the OR table in supine position, she was connected to cardiac and oxygen monitoring, supplemental O2 was provided and SCDs were applied to bilateral lower extremities. The patient was administered general anesthesia and a secure airway was established. The abdomen was prepped and draped in typical sterile fashion and a timeout was conducted. Intraperitoneal access was gained just to the left of the umbilicus using a Veress needle for insufflation. Pneumoperitoneum was established to a goal pressure of 15 mmHg. Once this pressure was achieved, a 5 mm trocar was inserted using direct visualization with a 5 mm laparoscope in a Visipor.t obturator. 2 additional 5 mm trocars were inserted at the right upper and lower quadrant using direct visualization. There were no injuries to surrounding structures caused by the insertion of the trocars. Initially in the abdomen there were soft adhesions, there was no free fluid that appeared suspicious for perforation. There was a small amount of lightly brown-tinged serous fluid within the pelvis. There was edema within the peritoneum adjacent to the sigmoid colon. As the sigmoid colon was mobilized, there was an area of fibrinous exudate noted at the proximal sigmoid colon where the colon was attached to the pelvic sidewall. This area was lightly peeled back to inspect for any bowel perforation or abscess cavity. There is no abscess cavity immediately encountered just additional adhesive tissue this was not further disturbed. The patient was positioned in Trendelenburg and right side down. Inspection was then turned to the pelvic area where the small bowel was mobilized away to identify the colon. An adhesion existed from the peritoneum of the bladder to the small bowel. Once this adhesion was gently lysed using alternating blunt and endoscopic letha sharp dissection, an abscess cavity was encountered and copious amounts of purulent fluid were drained. Fluid was obtained for culture. Purulent fluid was suctioned away, irrigated and further suctioned. The lower aspect of the rectum contain adhesion to the lower portion of the bladder. Units this was a another very large abscess cavity was encountered evacuating and excess amount of purulent fluid. This was again suctioned away, irrigated copiously and further suctioned. There was a tremendous amount of purulent rind lying over the peritoneum of the pelvic wall and the anterior surface of the sigmoid colon without ever identifying a perforation or extravasation from the colon. The inta-abdominal and pelvic space were copiously irrigated with 4L of saline which was suctioned away from all 4 quadrants. A 15Fr Otto drain was left in the pelvis extended from the patient's LLQ. This was sutured in place with a 3-0 Nylon suture and a BENOIT bulb was attached. The OR table was retuned to the neutral position. Excess fluid was checked for at all 4 quadrants and any fluid remaining was suctioned away. After injecting additional local anesthetic at the three laparoscopic incision sites, they were each closed with 4-0 Vicryl suture. The abdomen was wiped clean with a saline soaked lap pad and dried. The incisions were then dressed with Dermabond. The patient tolerated the procedure well. She was awakened from anesthesia, the secure airway was removed and she was transferred to recovery in stable condition. I attest to the content of the Intraoperative Record and any orders documented therein. Any exceptions are noted below.
--- NOTE | 2024-04-26 14:35 | Anesthesiology Progress Note ---
Date of Service April 26, 2024 Anesthesia Post Procedure Vital Signs Vital Signs: Temp Pulse Pulse Pulse Resp BP BP 04/26/24 14:15 73 15 123/64 04/26/24 14:05 36.3 C L 75 12 119/73 04/26/24 13:55 76 13 119/73 04/26/24 13:45 76 12 126/63 04/26/24 13:35 79 11 L 126/63 04/26/24 13:25 36.4 C L 80 16 111/57 L 04/26/24 09:00 37.7 C H 80 16 132/69 04/26/24 08:00 37.8 C H 82 19 137/68 04/26/24 07:21 38.0 C H 84 20 129/66 04/26/24 07:00 04/26/24 06:06 38.2 C H 82 20 04/26/24 06:00 117/67 04/26/24 05:36 38.3 C H 82 17 04/26/24 05:33 38.3 C H 82 14 04/26/24 05:00 145/63 H 04/26/24 05:00 38.2 C H 80 16 04/26/24 04:33 38.1 C H 80 14 04/26/24 04:00 125/69 04/26/24 04:00 38.1 C H 78 04/26/24 03:33 38.0 C H 81 19 04/26/24 03:00 38.0 C H 78 14 04/26/24 03:00 118/65 04/26/24 02:30 38.0 C H 78 04/26/24 02:02 126/69 04/26/24 02:00 38.0 C H 79 04/26/24 01:30 37.9 C H 80 20 04/26/24 01:18 37.9 C H 78 14 04/26/24 01:00 110/62 04/26/24 00:45 37.9 C H 78 04/26/24 00:03 37.8 C H 78 15 04/26/24 00:00 126/65 04/26/24 00:00 126/65 04/26/24 00:00 126/65 04/26/24 00:00 126/65 04/25/24 23:54 37.8 C H 77 04/25/24 23:33 37.8 C H 77 04/25/24 23:09 37.7 C H 75 04/25/24 22:48 37.6 C H 79 04/25/24 22:00 37.7 C H 74 04/25/24 22:00 112/62 04/25/24 22:00 112/62 04/25/24 21:43 04/25/24 21:30 37.8 C H 76 04/25/24 21:12 37.9 C H 75 04/25/24 21:00 123/66 04/25/24 21:00 123/66 04/25/24 21:00 123/66 04/25/24 20:39 37.8 C H 77 04/25/24 20:03 37.7 C H 78 04/25/24 20:00 139/68 04/25/24 19:48 37.7 C H 79 04/25/24 19:45 133/67 04/25/24 19:45 133/67 04/25/24 19:45 133/67 04/25/24 19:45 133/67 04/25/24 19:39 37.7 C H 77 04/25/24 19:30 133/73 04/25/24 19:27 37.7 C H 78 04/25/24 19:15 37.7 C H 79 04/25/24 19:15 114/68 04/25/24 19:15 114/68 04/25/24 19:03 37.7 C H 78 04/25/24 19:00 111/61 04/25/24 19:00 111/04/25/24 19:00 111/61 04/25/24 18:48 37.7 C H 76 04/25/24 18:45 37.7 C H 76 04/25/24 18:45 125/04/25/24 18:45 125/62 04/25/24 18:45 125/62 04/25/24 18:45 125/62 04/25/24 18:36 37.7 C H 74 04/25/24 18:30 120/62 04/25/24 18:30 120/62 04/25/24 18:15 132/69 04/25/24 18:15 132/69 04/25/24 18:12 37.7 C H 78 21 04/25/24 18:00 100/80 04/25/24 17:57 37.7 C H 77 25 H 04/25/24 17:46 37.7 C H 77 15 107/60 04/25/24 17:45 107/60 04/25/24 17:45 107/60 04/25/24 17:42 37.7 C H 77 12 04/25/24 17:36 37.7 C H 77 19 116/65 04/25/24 17:15 37.7 C H 79 18 110/51 L 04/25/24 17:11 37.6 C H 79 102/60 04/25/24 17:10 80 04/25/24 17:06 37.4 C 80 24 102/60 04/25/24 16:48 79 22 111/58 L 04/25/24 16:43 114/62 04/25/24 16:43 37.0 C 98 H 16 114/60 04/25/24 15:46 107/57 L 04/25/24 15:26 79 16 95/49 L 04/25/24 15:00 77 15 95/57 L 04/25/24 14:54 77 16 Pulse Ox O2 Del Method O2 Flow Rate 04/26/24 14:15 93 Nasal Cannula 3 04/26/24 14:05 95 Oxymask 4 04/26/24 13:55 95 Oxymask 4 04/26/24 13:45 95 Oxymask 8 04/26/24 13:35 93 Oxymask 10 04/26/24 13:25 93 Oxymask 16 04/26/24 09:00 96 Nasal Cannula 2 04/26/24 08:00 96 Nasal Cannula 2 04/26/24 07:21 95 Nasal Cannula 2 04/26/24 07:00 Nasal Cannula 2 04/26/24 06:06 95 04/26/24 06:00 04/26/24 05:36 95 04/26/24 05:33 95 04/26/24 05:00 04/26/24 05:00 97 04/26/24 04:33 96 04/26/24 04:00 04/26/24 04:00 96 04/26/24 03:33 96 04/26/24 03:00 95 04/26/24 03:00 04/26/24 02:30 95 04/26/24 02:02 04/26/24 02:00 95 04/26/24 01:30 97 04/26/24 01:18 96 04/26/24 01:00 04/26/24 00:45 94 04/26/24 00:03 92 04/26/24 00:00 04/26/24 00:00 04/26/24 00:00 04/26/24 00:00 04/25/24 23:54 94 04/25/24 23:33 95 04/25/24 23:09 97 04/25/24 22:48 92 04/25/24 22:00 97 04/25/24 22:00 04/25/24 22:00 04/25/24 21:43 Nasal Cannula 2 04/25/24 21:30 96 04/25/24 21:12 97 04/25/24 21:00 04/25/24 21:00 04/25/24 21:00 04/25/24 20:39 97 04/25/24 20:03 99 04/25/24 20:00 04/25/24 19:48 97 04/25/24 19:45 04/25/24 19:45 04/25/24 19:45 04/25/24 19:45 04/25/24 19:39 97 04/25/24 19:30 04/25/24 19:27 98 04/25/24 19:15 95 04/25/24 19:15 04/25/24 19:15 04/25/24 19:03 94 04/25/24 19:00 04/25/24 19:00 04/25/24 19:00 04/25/24 18:48 96 04/25/24 18:45 96 04/25/24 18:45 04/25/24 18:45 04/25/24 18:45 04/25/24 18:45 04/25/24 18:36 96 04/25/24 18:30 04/25/24 18:30 04/25/24 18:15 04/25/24 18:15 04/25/24 18:12 96 04/25/24 18:00 04/25/24 17:57 96 04/25/24 17:46 96 Nasal Cannula 2 04/25/24 17:45 04/25/24 17:45 04/25/24 17:42 96 04/25/24 17:36 95 Nasal Cannula 2 04/25/24 17:15 90 Room Air 04/25/24 17:11 92 Room Air 04/25/24 17:10 04/25/24 17:06 90 Room Air 04/25/24 16:48 91 Room Air 04/25/24 16:43 04/25/24 16:43 97 Nasal Cannula 2 04/25/24 15:46 04/25/24 15:26 96 Room Air 04/25/24 15:00 95 04/25/24 14:54 95 Transfer of Care Handoff Completed per policy Notes Mental Status: alert / awake / arousable Patient Amnestic to Procedure: Yes Nausea / Vomiting: adequately controlled Pain: adequately controlled Airway Patency, RR, SpO2: stable & adequate BP & HR: stable & adequate Hydration State: stable & adequate Anesthetic Complications: no major complications apparent
[2024-04-26] MEDS: PANTOprazole 40 MG in SYRINGE 0 ML IV SCH (14:57)
--- NOTE | 2024-04-26 16:01 | Hospitalist Progress Note ---
Date of Service April 26, 2024 Assessment & Plan (1) Severe sepsis: (2) Perforated diverticulum: (3) Pelvic abscess in female: (4) Type 2 diabetes mellitus with insulin therapy: (5) Paroxysmal atrial fibrillation: (6) (HFpEF) heart failure with preserved ejection fraction: (7) Hypertension: (8) Hyperlipidemia: (9) Chronic kidney disease, stage 3b: (10) Rheumatoid arthritis: (11) Anemia of chronic disease: (12) Hypothyroidism: (13) Recurrent UTI: Plan: 69-year-old female with PMH of HTN, HLD, atrial fibrillation s/p cardioversion, chronically anticoagulated on Eliquis, DM II, rheumatoid arthritis on chronic prednisone, CKD III, chronic anemia, history of recurrent UTIs, hypothyroidism presented to ER with complaint of noted altered mental status and weakness. Some constipation and cramping sensation to lower abdomen past couple of days. Also had fever. Last took Eliquis Evening of 04/24/24. She is being managed for the following: Perforated diverticulum Severe sepsis: 2/2 above Septic Shock: needed pressors in ICU at presentation Pelvic abscess: Pt reported to be somewhat somnolent on arrival and was found to be febrile with Temp 39.6C, Pulse: 89, R: 27, BP: 159/71, 93% on RA. WBC: 16, Lactate: 2.0, procalcitonin: 0.[address] abd/pelvis: Perforated acute sigmoid diverticulitis with a small amount of pneumoperitoneum and pericolonic abscesses. s/p Diagnostic Laparoscopy, drainage of intra-abdominal abcesses and lysis of adhesions (Not Applicable) - German Shultz DO 04/26/2024. c/w zosyn 04/25 and vanco 04/25. Sx on board. Being Managed in ICU. DM II: Insulin dependent A1c: 5.6 on 11/21/23 Glycemic management per ICU protocol Paroxysmal atrial fibrillation: : S/P cardioversion x 2. Anticoagulated on Eliquis. Last dose Eliquis on 04/24/24. Current sinus rhythm . Hold Eliquis - resume when bleeding risk deemed minimal per Gen Sx. Resume home metoprolol and amiodarone when able. Follows with cardiology, Dr. Pedraza Chronic kidney disease, stage 3:: Cr: 1.7. Baseline creatinine: ~1.7 . Monitor renal functions HFpEF: Uses Lasix on as needed basis. Has not used for months. Echo: 12/26/22: EF: 60-65%. Monitor volume status Hyperlipidemia: On Repatha Rheumatoid arthritis: . On chronic prednisone 5mg daily. On stress dose steroid in icu. resume home dose when able. Follows with rheumatology, Dr. Padron Hypothyroidism: On home levothyroxine Anemia of chronic disease and iron deficiency anemia: Hgb: 11.3. Baseline 9-10 Follows with hematology and receives IV iron Monitor H&H Recurrent UTI: History recurrent UTI. On home chronic Bactrim. Follows with urology, Dr. Ramos DVT Prophylaxis: SCDs until home eliquis could be resumed. Admit ICU Full Code Follows with Dr Brice for routine care Admission and Anticipated Discharge Date Admission Date: April 25, 2024 Subjective Patient was seen and examined at bedside. Patient was evaluated after OT. Patient underwent diagnostic lap, drainage of intra-abdominal abscess and lysis of adhesions. Patient reports feeling better, denies abdominal pain. Patient denies flulike illness or cough in the recent past. Physical Exam Physical Exam: General: no apparent distress, overweight, on 2L NC O2. Head: normocephalic, atraumatic Eyes: conjunctiva non-injected, anicteric ENT: normal inspection external ears, nose, mucous membranes moist Neck: supple, trachea midline Lungs: clear, no respiratory distress, no wheezing/rhonchi/rales CV: RRR, no murmur, no pretibial edema Abd: lap incision site clean/no drainage/apposed together. LLQ dressing c/d/i. BENOIT drain w/ scant SS collection. Ext: no cyanosis, no calf tenderness Neuro: Currently alert and oriented to person, place, month and year, no focal deficits noted, normal affect Skin: warm, dry Results & Data Results & Data Vital Signs (Past 12 Hours) Vital Signs Temp Pulse Pulse Resp BP BP Pulse Ox 04/26/24 15:03 36.6 C 75 27 H 133/63 98 04/26/24 14:48 36.7 C 76 20 124/76 98 04/26/24 14:30 74 17 124/63 94 04/26/24 14:15 73 15 123/64 93 04/26/24 14:05 36.3 C L 75 12 119/73 95 04/26/24 13:55 76 13 119/73 95 04/26/24 13:45 76 12 126/63 95 04/26/24 13:35 79 11 L 126/63 93 04/26/24 13:25 36.4 C L 80 16 111/57 L 93 04/26/24 09:00 37.7 C H 80 16 132/69 96 04/26/24 08:00 37.8 C H 82 19 137/68 96 04/26/24 07:21 38.0 C H 84 20 129/66 95 04/26/24 07:00 04/26/24 06:06 38.2 C H 82 20 95 04/26/24 06:00 117/67 04/26/24 05:36 38.3 C H 82 17 95 04/26/24 05:33 38.3 C H 82 14 95 04/26/24 05:00 145/63 H 04/26/24 05:00 38.2 C H 80 16 97 04/26/24 04:33 38.1 C H 80 14 96 04/26/24 04:00 125/69 04/26/24 04:00 38.1 C H 78 15 96 O2 Del Method O2 Flow Rate 04/26/24 15:03 Nasal Cannula 2 04/26/24 14:48 Nasal Cannula 2 04/26/24 14:30 Nasal Cannula 3 04/26/24 14:15 Nasal Cannula 3 04/26/24 14:05 Oxymask 4 04/26/24 13:55 Oxymask 4 04/26/24 13:45 Oxymask 8 04/26/24 13:35 Oxymask 10 04/26/24 13:25 Oxymask 16 04/26/24 09:00 Nasal Cannula 2 04/26/24 08:00 Nasal Cannula 2 04/26/24 07:21 Nasal Cannula 2 04/26/24 07:00 Nasal Cannula 2 04/26/24 06:06 04/26/24 06:00 04/26/24 05:36 04/26/24 05:33 04/26/24 05:00 04/26/24 05:00 04/26/24 04:33 04/26/24 04:00 04/26/24 04:00 (7) Hypertension Hypertension type: essential hypertension Qualified Code(s): I10 - Essential (primary) hypertension (8) Hyperlipidemia Hyperlipidemia type: pure hypercholesterolemia Qualified Code(s): E78.00 - Pure hypercholesterolemia, unspecified (10) Rheumatoid arthritis Rheumatoid arthritis location: multiple sites Rheumatoid factor presence: unspecified presence Qualified Code(s): M06.9 - Rheumatoid arthritis, unspecified (12) Hypothyroidism Hypothyroidism type: unspecified Qualified Code(s): E03.9 - Hypothyroidism, unspecified
[2024-04-26] MEDS ORDERED: INSULIN ASPART PER UNIT CHARGE SC SCH (18:00)
[2024-04-26] MEDS: HYDROmorphone INJ 0.5 MG/0.5 ML SYR IV PRN (23:20)
[2024-04-27 04:57] LABS: Basophils # (auto) 0.02 K/uL (0.00-0.20); Basophils % (auto) 0.2 %; Eosinophils # (auto) 0.13 K/uL (0.00-0.50); Eosinophils % (auto) 1.3 %; Hematocrit (blood only) 31.6 % (37.0-47.0); Hemoglobin 9.3 g/dl (12.0-16.0); Immature Granulocytes # (auto) 0.13 K/uL (0.01-0.20); Immature Granulocytes % (auto) 1.3 %; Lymphocytes # (auto) 0.71 K/uL (1.20-3.40); Lymphocytes % (auto) 6.9 %; Mean Corpuscular Hemoglobin 28.7 pg (25.0-34.0); Mean Corpuscular Hgb Conc 29.4 g/dL (32.0-36.0); Mean Corpuscular Volume 97.5 fL (80.0-100.0); Mean Platelet Volume 10.1 fL (9.4-12.4); Monocytes # (auto) 0.41 K/uL (0.11-0.59); Neutrophils # (auto) 8.82 K/uL (1.40-6.50); Neutrophils % (auto) 86.3 %; Platelet Count 215 K/uL (130-400); RDW Coefficient of Variation 14.6 % (11.5-14.5); RDW Standard Deviation 52.5 fL (36.4-46.3); Red Blood Count 3.24 M/uL (4.20-5.40); White Blood Count 10.22 K/ul (4.8-10.8)
[2024-04-27 05:21] LABS: BUN Creatinine Ratio 18.8 (10-20); Calcium 7.7 mg/dl (8.6-10.3); Creatinine Clr Calc Pharmacy 43.1 ml/min; Est GFR (African American) 47.2 ml/min; Est GFR (Non-African American) 40.7 ml/min; Magnesium 2.2 mg/dl (1.7-2.4); Phosphorus 2.8 mg/dl (2.5-4.9); Potassium 3.8 mmol/L (3.5-5.1)
[2024-04-27] MEDS: POTASSIUM CHLORIDE / WTR 10 MEQ/100 ML PLCT IV SCH (05:59)
[2024-04-27] MEDS: HYDROmorphone INJ 0.5 MG/0.5 ML SYR IV PRN (07:39)
--- NOTE | 2024-04-27 07:48 | Surgery Progress Note ---
<Statement entered by German Shultz, - 04/27/24 12:14> I have seen and examined this patient. I agree with this plan. Date of Service April 27, 2024 Assessment & Plan (1) Perforated diverticulum: Plan: POD 1 Diagnostic Laparoscopy, drainage of intra-abdominal abscesses and lysis of adhesions with Dr. Shultz started with low grade temp yesterday evening , this Am its 100.2 WBC stablized at 10.2 (17) continue iv anitbx on zosyn and Vanco May remove norton cath from surgical standpoint , incentive spirometer Q1H while awake OK to downgrade to PCU expected post surgical pain polo. lower quadrants BENOIT 30/80cc in 12/24hr serous fluid Continue npo for now with ice chips OOB to chair Admission and Anticipated Discharge Date Admission Date: April 25, 2024 Subjective pt reports bilateral lower abd pain requesting ice chips no n/v over night Review of Systems Gastrointestinal: + abdominal pain; no nausea and no vomit ing Genitourinary: norton cath Physical Exam Physical Exam: alert oriented Constitutional: cooperative and comfortable; no acute distress Respiratory: normal respiratory effort (on 2L 02 via NC) and able to speak in complete sentences; no respiratory distress Cardiovascular: Rate/Rhythm: regular rate Gastrointestinal (Abdomen): Inspection/Auscultation: + abdominal surgical incision (dermabond CDI, erythema surround port sites, no drainage) and + abdominal surgical drain present (BENOIT serous fluid) Percussion/Palpation: + abdomen tender and abdomen soft Genitourinary: norton cath Results & Data Vital Signs (Past 12 Hours) Vital Signs Temp Pulse Resp BP Pulse Ox O2 Del Method O2 Flow Rate 04/27/24 06:03 100.2 F H 92 H 14 95 04/27/24 06:01 140/71 04/27/24 06:01 140/71 04/27/24 05:48 100.2 F H 91 H 15 96 04/27/24 05:03 100.2 F H 90 13 96 04/27/24 05:00 108/74 04/27/24 05:00 108/74 04/27/24 04:42 100.2 F H 92 H 17 96 04/27/24 04:09 100.2 F H 93 H 16 87 L 04/27/24 04:00 119/69 04/27/24 03:57 100.2 F H 92 H 12 94 04/27/24 03:03 100.2 F H 86 13 97 04/27/24 03:00 122/68 04/27/24 03:00 122/68 04/27/24 03:00 122/68 04/27/24 02:57 100.0 F H 86 15 96 04/27/24 02:06 100.0 F H 84 15 97 04/27/24 02:00 135/68 04/27/24 01:57 100.0 F H 85 14 97 04/27/24 01:18 99.9 F H 86 16 98 04/27/24 01:00 118/69 04/27/24 01:00 118/69 04/27/24 00:51 99.9 F H 86 15 96 04/27/24 00:03 99.9 F H 87 15 99 04/27/24 00:00 112/68 04/27/24 00:00 112/68 04/26/24 23:42 100.0 F H 87 14 99 04/26/24 23:00 100.0 F H 82 15 99 04/26/24 23:00 134/61 04/26/24 23:00 134/61 04/26/24 23:00 134/61 04/26/24 22:12 99.9 F H 81 14 95 04/26/24 22:00 140/66 04/26/24 21:27 99.5 F 83 15 98 04/26/24 21:00 128/55 L 04/26/24 20:54 99.5 F 80 12 100 04/26/24 20:03 99.5 F 79 20 98 04/26/24 20:00 129/62 04/26/24 20:00 129/62 04/26/24 20:00 Nasal Cannula 2 04/26/24 19:51 99.5 F 78 20 98 Results CBC w Diff Results: RBC 3.24 M/uL (4.20-5.40) L 04/27/24 WBC 10.22 K/ul (4.8-10.8) 04/27/24 Hgb 9.3 g/dl (12.0-16.0) L 04/27/24 Hct 31.6 % (37.0-47.0) L 04/27/24 MCV 97.5 fL (80.0-100.0) 04/27/24 MCH 28.7 pg (25.0-34.0) 04/27/24 MCHC 29.4 g/dL (32.0-36.0) L 04/27/24 RDW Standard Deviation 52.5 fL (36.4-46.3) H 04/27/24 RDW Coefficient of Variation 14.6 % (11.5-14.5) H 04/27/24 Plt Count 215 K/uL (130-400) 04/27/24 MPV 10.1 fL (9.4-12.4) 04/27/24 Nucleated Red Blood Cells % (auto) 0.3 % 02/01 Nucleated RBC Absolute Count (auto) 0.04 K/uL (0.00-0.12) 0 02/02/24 Neutrophils (%) (Auto) 86.3 % 04/27/24 Lymphocytes (%) (Auto) 6.9 % 04/27/24 Monocytes # (Auto) 0.41 K/uL (0.11-0.59) 04/27/24 Eosinophils # (Auto) 0.13 K/uL (0.00-0.50) 04/27/24 Immature Granulocyte % (Auto) 1.3 % 04/27/24 Neutrophils # (Auto) 8.82 K/uL (1.40-6.50) H 04/27/24 Lymphocytes # (Auto) 0.71 K/uL (1.20-3.40) L 04/27/24 Monocytes # (Auto) 0.41 K/uL (0.11-0.59) 04/27/24 Eosinophils # (Auto) 0.13 K/uL (0.00-0.50) 04/27/24 Basophils # (Auto) 0.02 K/uL (0.00-0.20) 04/27/24 Immature Granulocyte # (Auto) 0.13 K/uL (0.01-0.20) 4 ANC 7.22 K/uL (1.4-6.5) H 10/26/18 ALC 1.55 K/uL (1.2-3.4) 10/26/18 Neutrophils % (Manual) 69.2 % 10/26/18 Lymphocytes % (Manual) 14.9 % 10/26/18 Monocytes % (Manual) 4.4 % 10/26/18 Eosinophils % (Manual) 4.4 % 10/26/18 Basophils % (Manual) 0.9 % 10/26/18 Metamyelocytes % (manual) 4.4 % 10/26/18 Myelocytes % (Manual) 1.8 % 10/26/18 Nucleated Red Blood Cells % 0.3 % 10/24/17 Neutrophils # (Manual) 7.22 K/uL (1.4-6.5) H 10/26/18 Lymphocytes # (Manual) 1.55 K/uL (1.2-3.4) 10/26/18 Monocytes # (Manual) 0.46 K/uL (0.11-0.59) 10/26/18 Eosinophils # (Manual) 0.46 K/uL (0-0.5) 10/26/18 Basophils # (Manual) 0.09 K/uL (0-0.2) 10/26/18 Metamyelocytes # (Manual) 0.46 K/uL (0-0) H 10/26/18 Myelocytes # (Manual) 0.19 K/uL (0-0) H 10/26/18 Hypersegmented Neutrophils 1+ 03/07/23 Red Blood Cell Morphology Unremarkable 09/17/22 Polychromasia 1+ 01/13/24 Hypochromasia Present 01/21/23 Stomatocytes 2+ 12/27/18 Toxic Granulation 1+ 07/17/17 Toxic Vacuolation 1+ 02/27/23 Dohle Bodies 1+ 12/27/22 PG Care Time/CCT Total # of Minutes Spent Total Time Spent with Patient: Total time spent is greater than 50% in coordination of care (as documented) at patient's floor/unit and/or counseling patient: Coding Level of Care Code 16278 Post Operative Follow-Up Diagnoses Perforated diverticulum K57.80
[2024-04-27] MEDS: VANCOMYCIN LEVEL ONE (07:50)
--- NOTE | 2024-04-27 08:00 | Critical Care Progress Note ---
Date of Service April 27, 2024 Assessment & Plan (1) Sepsis: Plan: Reason Critically Ill: 69-year-old female with sepsis from acute sigmoid diverticulitis with perforated viscus and possible pericolonic abscess. Patient is postop day #1 status post laparoscopic drainage of intra-abdominal abscesses. PLAN: Neuro: Encephalopathy: Resolved -Improved after resuscitation in ED. Likely related to fever. CV: Atrial fibrillation -Anticoagulation to be restarted by the medicine service and discussion with surgery. -Patient chronically on 5 mg prednisone for rheumatoid arthritis. Currently receiving stress dose steroids. Will decrease hydrocortisone to 25 mg daily. Fluids/Renal: Chronic kidney disease: Creatinine ranging from 1.3-1.7 -maintenance fluids at 80 mL/h ID: Sepsis -Continue vancomycin and Zosyn. Follow cultures from abscess fluid in the abdomen. GI/Nutrition: N.p.o. Perforated viscus -Postop day 1 status post laparoscopic intra-abdominal abscess drainage. -Start Protonix 40 mg IV daily. Heme: Baseline anemia: Hemoglobin stable. DVT prophylaxis: SCDs, last dose Eliquis 04/24 Endocrine: ICU hyperglycemia protocol Chronic prednisone therapy: Hold at this time. -Decrease to 25 mg daily hydrocortisone. Vascular access: Peripheral IVs Code Status: Full code Disposition: Can likely downgrade to PCU status later today (2) Persistent atrial fibrillation: (3) Perforated diverticulum: (4) Pelvic abscess in female: Admission and Anticipated Discharge Date Admission Date: April 25, 2024 Subjective Patient's status post diagnostic laparoscopic and drainage of intra-abdominal abscesses 04/26/2024. Having some mild abdominal pain. Denies any nausea, chest pain or shortness of breath. Still occasionally with low-grade fever. Eager to eat. Review of Systems Review of Systems: All systems reviewed & are unremarkable except as noted in HPI & below Physical Exam Physical Exam: Constitutional: Patient appears to be of their stated age. Patient is in no apparent distress. Patient is well-developed. Eyes: Pupils are equal round and reactive to light. Conjunctivae are normal. Anicteric sclera. Ears nose, mouth and throat: No perioral cyanosis. Neck: Trachea is midline. Visual inspection is normal. Respiratory: Clear to auscultation bilaterally. No use of accessory muscles. No significant clubbing noted. Cardiovascular: Regular rate and rhythm. No murmurs. No edema. Gastrointestinal: Normal bowel sounds. Bandaging noted from laparoscopic procedure. Mildly tender to palpation on the left lower quadrant. No overt peritoneal signs. Musculoskeletal: No cyanosis. Patient is able to move all extremities. Strength is 5 out of 5 in the upper and lower extremities. Skin: No rashes, warm dry and intact. Neurologic: No obvious focal neurological deficits seen. Psychiatric: Alert and oriented x3 with a euthymic affect. Results & Data Results & Data Vital Signs (Past 12 Hours) Vital Signs Temp Pulse Resp BP Pulse Ox O2 Del Method O2 Flow Rate 04/27/24 06:03 37.9 C H 92 H 14 95 04/27/24 06:01 140/71 04/27/24 06:01 140/71 04/27/24 05:48 37.9 C H 91 H 15 96 04/27/24 05:03 37.9 C H 90 13 96 04/27/24 05:00 108/74 04/27/24 05:00 108/74 04/27/24 04:42 37.9 C H 92 H 17 96 04/27/24 04:09 37.9 C H 93 H 16 87 L 04/27/24 04:00 119/69 04/27/24 03:57 37.9 C H 92 H 12 94 04/27/24 03:03 37.9 C H 86 13 97 04/27/24 03:00 122/68 04/27/24 03:00 122/68 04/27/24 03:00 122/68 04/27/24 02:57 37.8 C H 86 15 96 04/27/24 02:06 37.8 C H 84 15 97 04/27/24 02:00 135/68 04/27/24 01:57 37.8 C H 85 14 97 04/27/24 01:18 37.7 C H 86 16 98 04/27/24 01:00 118/69 04/27/24 01:00 118/69 04/27/24 00:51 37.7 C H 86 15 96 04/27/24 00:03 37.7 C H 87 15 99 04/27/24 00:00 112/68 04/27/24 00:00 112/68 04/26/24 23:42 37.8 C H 87 14 99 04/26/24 23:00 37.8 C H 82 15 99 04/26/24 23:00 134/61 04/26/24 23:00 134/61 04/26/24 23:00 134/61 04/26/24 22:12 37.7 C H 81 14 95 04/26/24 22:00 140/66 04/26/24 21:27 37.5 C 83 15 98 04/26/24 21:00 128/55 L 04/26/24 20:54 37.5 C 80 12 100 04/26/24 20:03 37.5 C 79 20 98 04/26/24 20:00 129/62 04/26/24 20:00 129/62 04/26/24 20:00 Nasal Cannula 2 Coding Level of Care Code 60880 SUB INP/OBS CARE 2/35MIN Diagnoses Sepsis A41.9 Sepsis acute organ dysfunction status: unspecified Sepsis type: sepsis due to unspecified organism Persistent atrial fibrillation I48.19 Perforated diverticulum K57.80 Pelvic abscess in female N73.9 (1) Sepsis Sepsis acute organ dysfunction status: unspecified Sepsis type: sepsis due to unspecified organism Qualified Code(s): A41.9 - Sepsis, unspecified organism
[2024-04-27] MEDS: HYDROCORTISONE SOD 25 MG in SYRINGE 0 ML IV SCH (08:33)
[2024-04-27] MEDS ORDERED: HYDROCORTISONE SOD 50 MG in SYRINGE 0 ML IV SCH (09:00)
--- NOTE | 2024-04-27 10:12 | Pharmacy Report ---
Pharmacy PK ABX Note - Date of Service April 27, 2024 - Assessment and Plan Assessment 04/27: Day # 3 vancomycin/zosyn. Renal function improving. POD #1 s/p laparoscopic drainage of intra-abdominal abscesses. Prelim intra-ab culture (+) GNB. 04/25: 69 year old F receiving IV Vancomycin + Zosyn for treatment of perforated acute sigmoid diverticulitis with a small amount of pneumoperitoneum and pericolonic abscesses. Pertinent microbiologic data includes: Hx MRSA URINE 05/2023, Blood and urine cultures pending. WBC 16.4, febrile on arrival, no longer febrile. Plan Vancomycin * Non-steady state trough level this AM, 10.5mcg/mL (~23.5hr level)- predicted to achieve ssAUC 589mg/L.hr- therapeutic. * Continue vancomycin 1250 mg IV every 24 hours * Repeat level in ~48h if vancomycin continued. Pharmacy will continue to follow and will adjust dose/frequency as necessary. Thank you.
[2024-04-27] MEDS: ACETAMINOPHEN 1,000 MG/100 ML VIAL IV PRN (10:18)
--- NOTE | 2024-04-27 15:10 | Hospitalist Progress Note ---
Date of Service April 27, 2024 Assessment & Plan (1) Severe sepsis: (2) Perforated diverticulum: (3) Pelvic abscess in female: (4) Type 2 diabetes mellitus with insulin therapy: (5) Paroxysmal atrial fibrillation: (6) (HFpEF) heart failure with preserved ejection fraction: (7) Hypertension: (8) Hyperlipidemia: (9) Chronic kidney disease, stage 3b: (10) Rheumatoid arthritis: (11) Anemia of chronic disease: (12) Hypothyroidism: (13) Recurrent UTI: Plan: 69-year-old female with PMH of HTN, HLD, atrial fibrillation s/p cardioversion, chronically anticoagulated on Eliquis, DM II, rheumatoid arthritis on chronic prednisone, CKD III, chronic anemia, history of recurrent UTIs, hypothyroidism presented to ER with complaint of noted altered mental status and weakness. Some constipation and cramping sensation to lower abdomen past couple of days. Also had fever. Last took Eliquis Evening of 04/24/24. She is being managed for the following: Perforated diverticulum Severe sepsis: 2/2 above Septic Shock: needed pressors in ICU at presentation Pelvic abscess: Pt reported to be somewhat somnolent on arrival and was found to be febrile with Temp 39.6C, Pulse: 89, R: 27, BP: 159/71, 93% on RA. WBC: 16, Lactate: 2.0, procalcitonin: 0.[address] abd/pelvis: Perforated acute sigmoid diverticulitis with a small amount of pneumoperitoneum and pericolonic abscesses. s/p Diagnostic Laparoscopy, drainage of intra-abdominal abcesses and lysis of adhesions (Not Applicable) - German Shultz DO 04/26/2024. c/w zosyn 04/25 and vanco 04/25. F/u on blood and operative culture. Paroxysmal atrial fibrillation: : S/P cardioversion x 2. Anticoagulated on Eliquis. Last dose Eliquis on 04/24/24. Current sinus rhythm . Hold Eliquis - resume when bleeding risk deemed minimal per Gen Sx. Meds and sip okayed per Sx, will gradually resume her home meds. Follows with cardiology, Dr. Pedraza DM II: Insulin dependent. A1c: 5.6 on 11/21/23. Glycemic management per ICU protocol Chronic kidney disease, stage 3:: Cr: 1.7. Baseline creatinine: ~1.7 . Monitor renal functions HFpEF: Uses Lasix on as needed basis. Has not used for months. Echo: 12/26/22: EF: 60-65%. Monitor volume status Hyperlipidemia: On Repatha Rheumatoid arthritis: . On chronic prednisone 5mg daily. On hydrocortisone for now, resume home dose when able. Follows with rheumatology, Dr. Padron Hypothyroidism: On home levothyroxine Anemia of chronic disease and iron deficiency anemia: Hgb: 11.3. Baseline 9-10 Follows with hematology and receives IV iron Monitor H&H Recurrent UTI: History recurrent UTI. On home chronic Bactrim. On hold while getting iv antibiotic. Follows with urology, Dr. Ramos DVT Prophylaxis: SCDs until home eliquis could be resumed. Admit ICU Full Code Follows with Dr Brice for routine care Admission and Anticipated Discharge Date Admission Date: April 25, 2024 Subjective Patient was seen and examined at bedside. Patient's status post diagnostic laparoscopic and drainage of intra-abdominal abscesses 04/26/2024. Having some mild abdominal pain, Fairly under control. Denies any nausea, chest pain or shortness of breath. Still occasionally with low-grade fever. Eager to eat. moving gas, has not moved bowel. Physical Exam Physical Exam: General: no apparent distress, overweight, on 2L NC O2. Head: normocephalic, atraumatic Eyes: conjunctiva non-injected, anicteric ENT: normal inspection external ears, nose, mucous membranes moist Neck: supple, trachea midline Lungs: clear, no respiratory distress, no wheezing/rhonchi/rales CV: RRR, no murmur, no pretibial edema Abd: lap incision site clean/no drainage/apposed together. LLQ dressing c/d/i. BENOIT drain w/ scant SS collection. Ext: no cyanosis, no calf tenderness Neuro: Currently alert and oriented to person, place, month and year, no focal deficits noted, normal affect Skin: warm, dry Results & Data Results & Data Vital Signs (Past 12 Hours) Vital Signs Temp Pulse Resp BP Pulse Ox O2 Del Method O2 Flow Rate 04/27/24 12:06 37.3 C 88 15 127/72 95 Nasal Cannula 2 04/27/24 11:09 37.7 C H 89 15 146/73 H 95 Nasal Cannula 2 04/27/24 09:00 37.9 C H 92 H 18 134/65 95 Nasal Cannula 2 04/27/24 08:51 37.9 C H 96 H 16 134/65 95 Nasal Cannula 2 04/27/24 08:00 37.8 C H 94 H 21 125/70 96 Nasal Cannula 2 04/27/24 07:00 37.9 C H 94 H 26 H 132/74 04/27/24 06:03 37.9 C H 92 H 14 95 04/27/24 06:01 140/71 04/27/24 06:01 140/71 04/27/24 05:48 37.9 C H 91 H 15 96 04/27/24 05:03 37.9 C H 90 13 96 04/27/24 05:00 108/74 04/27/24 05:00 108/74 04/27/24 04:42 37.9 C H 92 H 17 96 04/27/24 04:09 37.9 C H 93 H 16 87 L 04/27/24 04:00 119/69 04/27/24 03:57 37.9 C H 92 H 12 94 (7) Hypertension Hypertension type: essential hypertension Qualified Code(s): I10 - Essential (primary) hypertension (8) Hyperlipidemia Hyperlipidemia type: pure hypercholesterolemia Qualified Code(s): E78.00 - Pure hypercholesterolemia, unspecified (10) Rheumatoid arthritis Rheumatoid arthritis location: multiple sites Rheumatoid factor presence: unspecified presence Qualified Code(s): M06.9 - Rheumatoid arthritis, unspecified (12) Hypothyroidism Hypothyroidism type: unspecified Qualified Code(s): E03.9 - Hypothyroidism, unspecified
[2024-04-27] MEDS: AMIODARONE 200 MG TAB PO SCH (20:36)
[2024-04-27] MEDS: METOPROLOL SUCC 50MG EXT REL TAB PO SCH (20:37)
[2024-04-28] MEDS: LEVOTHYROXINE SODIUM 112 MCG TABLET PO SCH (04:31)
[2024-04-28 04:52] LABS: Hematocrit (blood only) 30.5 % (37.0-47.0); Mean Corpuscular Hgb Conc 29.5 g/dL (32.0-36.0); Mean Corpuscular Volume 98.4 fL (80.0-100.0); Mean Platelet Volume 9.9 fL (9.4-12.4); Platelet Count 203 K/uL (130-400); RDW Coefficient of Variation 14.7 % (11.5-14.5); RDW Standard Deviation 53.4 fL (36.4-46.3); White Blood Count 10.78 K/ul (4.8-10.8)
[2024-04-28 05:08] LABS: Calcium 7.7 mg/dl (8.6-10.3); Creatinine Clr Calc Pharmacy 48.2 ml/min; Est GFR (African American) 53.4 ml/min; Est GFR (Non-African American) 46.1 ml/min; Magnesium 2.2 mg/dl (1.7-2.4); Potassium 3.8 mmol/L (3.5-5.1)
--- NOTE | 2024-04-28 07:56 | Surgery Progress Note ---
<Statement entered by German Shultz, DO - 04/28/24 17:37> I have seen and examined the patient this am. Afebrile since yesterday am, feeling more improved. I agree with this plan. Date of Service April 28, 2024 Assessment & Plan (1) Perforated diverticulum: Plan: POD 2 Diagnostic Laparoscopy, drainage of intra-abdominal abscesses and lysis of adhesions with Dr. Shultz WBC 10(10), temps ranging from 99-100F. other vitals stable she is feeling well overall, some intermittent abdominal cramping but nothing severe. + flatus. no n/v BENOIT serous 10cc over last 12 hrs okay to d/c norton continue iv abx continue npo w/ sips/chips yet today work on pulmonary toilet with IS and needs to get OOB ambulating can downgrade from ICU. appreciate medical team Admission and Anticipated Discharge Date Admission Date: April 25, 2024 Subjective Patient says she is feeling better each day, feels improved since admission. Has some intermittent lower abdominal gas-like pains, but nothing sharp or severe. She denies nausea/vomiting. Passing flatus. No BM yet. Feels more mentally clear. Has not been out of bed yet. Physical Exam Physical Exam: awake/alert, no distress Respiratory: normal respiratory effort on 2L supplemental O2 Gastrointestinal (Abdomen): Inspection/Auscultation: + abdominal surgical incision (c/d/i with skin glue, some slight redness lower abdomen, will monitor) and + abdominal surgical drain present (serous, 10cc over last 12 hrs) Percussion/Palpation: + abdomen tender (mild lower abdominal discomfort) and abdomen soft Results & Data Vital Signs (Past 12 Hours) Vital Signs Temp Pulse Resp BP Pulse Ox O2 Del Method O2 Flow Rate 04/28/24 05:00 99.1 F 74 13 97 04/28/24 04:03 99.1 F 74 15 97 04/28/24 04:00 174/106 H 04/28/24 04:00 174/106 H 04/28/24 03:57 99.1 F 74 14 96 04/28/24 03:12 99.3 F 73 12 98 04/28/24 02:09 99.5 F 82 13 98 04/28/24 01:36 99.5 F 84 23 97 04/28/24 01:36 164/103 H 04/28/24 01:00 99.3 F 85 21 98 04/28/24 00:06 99.1 F 87 22 98 04/27/24 23:06 99.1 F 84 15 98 04/27/24 22:06 99.0 F 87 14 97 04/27/24 21:00 99.3 F 89 13 97 04/27/24 20:03 99.3 F 86 19 99 04/27/24 20:00 158/77 H 04/27/24 20:00 Nasal Cannula 2 04/27/24 19:54 99.3 F 88 14 99 PG Care Time/CCT Total # of Minutes Spent Total Time Spent with Patient: Total time spent is greater than 50% in coordination of care (as documented) at patient's floor/unit and/or counseling patient: Coding Level of Care Code 76275 Post Operative Follow-Up Diagnoses Perforated diverticulum K57.80
[2024-04-28] MEDS ORDERED: predniSONE 5 MG TAB PO SCH (09:00)
--- NOTE | 2024-04-28 14:07 | Hospitalist Progress Note ---
Date of Service April 28, 2024 Assessment & Plan (1) Severe sepsis: (2) Perforated diverticulum: (3) Pelvic abscess in female: (4) Type 2 diabetes mellitus with insulin therapy: (5) Paroxysmal atrial fibrillation: (6) (HFpEF) heart failure with preserved ejection fraction: (7) Hypertension: (8) Hyperlipidemia: (9) Chronic kidney disease, stage 3b: (10) Rheumatoid arthritis: (11) Anemia of chronic disease: (12) Hypothyroidism: (13) Recurrent UTI: Plan: 69-year-old female with PMH of HTN, HLD, atrial fibrillation s/p cardioversion, chronically anticoagulated on Eliquis, DM II, rheumatoid arthritis on chronic prednisone, CKD III, chronic anemia, history of recurrent UTIs, hypothyroidism presented to ER with complaint of noted altered mental status and weakness. Some constipation and cramping sensation to lower abdomen past couple of days. Also had fever. Last took Eliquis Evening of 04/24/24. She is being managed for the following: Perforated diverticulum Severe sepsis: 2/2 above Septic Shock: needed pressors in ICU at presentation Pelvic abscess: Pt reported to be somewhat somnolent on arrival and was found to be febrile with Temp 39.6C, Pulse: 89, R: 27, BP: 159/71, 93% on RA. WBC: 16, Lactate: 2.0, procalcitonin: 0.[address] abd/pelvis: Perforated acute sigmoid diverticulitis with a small amount of pneumoperitoneum and pericolonic abscesses. s/p Diagnostic Laparoscopy, drainage of intra-abdominal abcesses and lysis of adhesions (Not Applicable) - German Shultz DO 04/26/2024. zosyn 04/25 and vanco 04/25 --> Operative Cx +ve for pseudomonas, Vanc dc'd 04/28, ID consulted - repeating CTAP --> c/w zosyn for now. F/u on final blood and operative culture results. NPO per sx, c/w ivf for now. Paroxysmal atrial fibrillation: : S/P cardioversion x 2. Anticoagulated on Eliquis. Last dose Eliquis on 04/24/24. Current sinus rhythm . Hold Eliquis - resume when bleeding risk deemed minimal per Gen Sx. Meds and sip okayed per Sx, will gradually resume her home meds. Follows with cardiology, Dr. Pedraza DM II: Insulin dependent. A1c: 5.6 on 11/21/23. Glycemic management per ICU protocol Chronic kidney disease, stage 3:: Cr: 1.7. Baseline creatinine: ~1.7 . Monitor renal functions HFpEF: Uses Lasix on as needed basis. Has not used for months. Echo: 12/26/22: EF: 60-65%. Monitor volume status Hyperlipidemia: On Repatha Rheumatoid arthritis: . On chronic prednisone 5mg daily. On hydrocortisone for now, resume home dose when able. Follows with rheumatology, Dr. Padron Hypothyroidism: On home levothyroxine Anemia of chronic disease and iron deficiency anemia: Hgb: 11.3. Baseline 9-10 Follows with hematology and receives IV iron Monitor H&H Recurrent UTI: History recurrent UTI. On home chronic Bactrim. On hold while getting iv antibiotic. Follows with urology, Dr. Ramos DVT Prophylaxis: SCDs until home eliquis could be resumed. PCU status, PT/OT consulted, pt needs be OOB as much as able. Full Code Follows with Dr Brice for routine care Admission and Anticipated Discharge Date Admission Date: April 25, 2024 Subjective Patient was seen and examined at bedside. Patient's status post diagnostic laparoscopic and drainage of intra-abdominal abscesses 04/26/2024. Having some mild abdominal pain intermittently, Fairly under control. Denies any nausea, chest pain or shortness of breath or vomiting. Still occasionally with low-grade fever. Moving gas, has not moved bowel. d/w ID, plan for repeat CTAP. Physical Exam Physical Exam: General: no apparent distress, overweight, on 2L NC O2. Head: normocephalic, atraumatic Eyes: conjunctiva non-injected, anicteric ENT: normal inspection external ears, nose, mucous membranes moist Neck: supple, trachea midline Lungs: clear, no respiratory distress, no wheezing/rhonchi/rales CV: RRR, no murmur, no pretibial edema Abd: lap incision site clean/no drainage/apposed together. LLQ dressing c/d/i. BENOIT drain w/ scant serous collection. Ext: no cyanosis, no calf tenderness Neuro: Currently alert and oriented to person, place, month and year, no focal deficits noted, normal affect Skin: warm, dry Results & Data Results & Data Vital Signs (Past 12 Hours) Vital Signs Temp Pulse Resp BP Pulse Ox O2 Del Method O2 Flow Rate 04/28/24 09:02 75 04/28/24 08:30 Nasal Cannula 2 04/28/24 08:01 37.2 C 76 21 170/93 H 97 Nasal Cannula 2 04/28/24 05:00 37.3 C 74 13 97 04/28/24 04:03 37.3 C 74 15 97 04/28/24 04:00 174/106 H 04/28/24 04:00 174/106 H 04/28/24 03:57 37.3 C 74 14 96 04/28/24 03:12 37.4 C 73 12 98 04/28/24 02:09 37.5 C 82 13 98 (7) Hypertension Hypertension type: essential hypertension Qualified Code(s): I10 - Essential (primary) hypertension (8) Hyperlipidemia Hyperlipidemia type: pure hypercholesterolemia Qualified Code(s): E78.00 - Pure hypercholesterolemia, unspecified (10) Rheumatoid arthritis Rheumatoid arthritis location: multiple sites Rheumatoid factor presence: unspecified presence Qualified Code(s): M06.9 - Rheumatoid arthritis, unspecified (12) Hypothyroidism Hypothyroidism type: unspecified Qualified Code(s): E03.9 - Hypothyroidism, unspecified
--- NOTE | 2024-04-28 14:17 | CT Scan Report ---
CT OF THE ABDOMEN AND PELVIS WITHOUT CONTRAST CLINICAL HISTORY: ?fluid collection, s/p sx status. COMPARISON STUDY: CT of the abdomen pelvis April 25, 2024. TECHNIQUE: Axial images of the abdomen and pelvis were obtained without IV contrast. Images were revi ewed in the axial, sagittal, and coronal planes. Automated exposure control was utilized for the chuck dy. A dose lowering technique was utilized adhering to the principles of ALARA. FINDINGS: Small bilateral pleural effusions with subpleural lower lobe opacities have developed since CT of April 25, 2024. Free air has resolved since prior CT. There is no biliary ductal dilatation sta tus post cholecystectomy. Unenhanced images of the spleen, adrenal glands and kidneys are unremarkabl e with exception of moderate right renal cortical thinning. There is no hydronephrosis. There is no e vidence for a bowel obstruction. Interval laparoscopy with placement of a pelvic drain is noted. The drain is well-positioned. The previously described fluid collection along the inferior aspect of the sigmoid colon has significantly decreased in size. Residual 2.8 x 2.6 cm pocket of gas is now noted. The drain extends through this collection. The additional pelvic fluid collection has essentially res olved. No new fluid collections are present. There is a small amount of ascites. Extensive colonic di verticulosis is present. Body wall edema is noted. There is an old T12 compression fracture. Postoper ative findings within the lumbosacral spine are incidentally noted IMPRESSION: 1. Status post laparoscopy with drainage of intra-abdominal abscesses and placement of a pelvic surgi donnell drain for perforated sigmoid diverticulitis. Near complete resolution of the pericolonic and pelv ic abscesses with trace residual fluid and a small pocket of extraluminal pericolonic gas. The surgic al drain extends through both collections. No new collections. 2. No evidence for a bowel obstruction. 3. Anasarca. Interval development of small bilateral pleural effusions with lower lobe opacity sugges tive of atelectasis. ACT 112: Negative or not required by law. Electronically signed by: Gus Ojeda M.D. 04/28/2024 2:16 PM
--- NOTE | 2024-04-28 16:03 | Infectious Disease Consult ---
Date of Consultation April 28, 2024 Assessment & Plan (1) Pelvic abscess in female: (2) Diverticulitis of sigmoid colon: (3) Perforated diverticulum: Plan ID Problem List: 1. Perforated sigmoid diverticulitis c/b intraabdominal abscesses. S/p laparoscopic drainage and POOJA on 04/26, OR Cx + Pseudomonas aeruginosa 2. Septic shock, improved 3. RA on prednisone 5 mg daily 4. Recurrent UTIs on chronic Bactrim suppression 5. Allergies to antibiotics: tetracycline (facial rash) Impression: Daniela Champagne is a 69-year-old woman with history of afib s/p cardioversion on Eliquis, HTN, DM II, RA on chronic prednisone 5 mg daily, CKD III, chronic anemia, history of recurrent UTIs on chronic Bactrim, h/o laparoscopic hysterectomy, hypothyroidism, who presented to [facility] on 04/25/24 with a few days of constipation and cramping in her lower abdomen as well as AMS and w eakness. Found to have perforated acute sigmoid diverticulitis c/b pneumoperitoneum and pericolonic abscesses. S/p laparoscopic drainage of intraabdominal abscesses and POOJA on 04/26/24 with BENOIT drain placement. ID is consulted for perforated diverticulitis c/b intraabdominal abscesses. She presented to the ED with weakness and confusion. This was in the setting of 1 week of worsening constipation, and recently with increased abdominal discomfort, nausea, and distension. She was initially febrile with Temp 39.6C, Pulse: 89, R: 27, BP: 159/71, 93% on RA. WBC [address] A/P showed perforated acute sigmoid diverticulitis with a small amount of pneumoperitoneum and loculated gas-fluid collections c/w abscesses (pericolonic abscess inferior to mid-sigmoid 5.5x4.0 cm, pelvic cul-de-sac 4.8x4.4 cm, R deep pelvis 6.8x1.3 cm). She became more hypotensive down to 80s/40s and responded to fluid resuscitation. She was started on vancomycin and pip-tazo. S/p laparoscopic drainage of intraabdominal abscesses and POOJA on 04/26/24; intraoperative notes describe copious purulent fluid in multiple abscess cavities as well as purulent rind overlying the pelvic wall peritoneum and ante rior surface of the sigmoid colon. BENOIT drains placed and have been draining serous fluids. 04/26 intraabdominal OR Cx + Pseudomonas aeruginosa. Post-operatively, she continues to have intermittent low-grade fevers, Tmax 37.5 on 04/28. WBC has improved to 10.22. At the time of evaluation, the patient feels very well. Minimal abdominal soreness and some pain at the laparoscopy sites. BENOIT drain in place, reports that the drainage has slowed today. She reports that she had lumbar spine surgery ~2 months prior (removal of prior hardware and hardware replacement) and that she also has some ongoing back pain. Repeat CT A/P on 04/28 showing with near-complete resolution of pericolonic and pelvic abscesses, trace residual fluid and small pocket extraluminal pericolonic gas; no new collections; anasarca and small bilateral pleural effusions. Discussion Presenting with intraabd abscess from sigmoid diverticulitis, now s/p laparoscopic drainage and POOJA on 04/26, OR Cx + Pseudomonas aeruginosa. Repeat CT A/P on 04/28 showing with near-complete resolution of pericolonic and pelvic abscesses, trace residual fluid and small pocket extraluminal pericolonic gas; no new collections. Pt overall improved after abx and OR, with improved sepsis, normalized WBC count, and improved fever curve, though still with a few intermittent low-grade fevers. Note that g/s with mixed organisms including GPCs, GNRs, GPRs, though only Pseudomonas aeruginosa was isolated on Cx. Per Pseudomonas susceptibilities, can continue pip-tazo (note R-cefepime/meropenem/cipro/levo; S-ceftaz). No MRSA or resistant gram-positives isolated on Cx and thus can stop vancomycin. Unfortunately given resistance to cipro/levo, no PO options available. The patient overall appears to have had good surgical source control after her surgery on 04/26. Given that patient still with some trace residual fluid, relative immunocompromise (chronic low-dose prednisone), and that BENOIT drain still in place draining fluid, and Cx + Pseudomonas, would consider continuing pip- tazo for a tentative 2-week course, with reevaluation and consideration of extending abx course per follow-up. Would ensure close follow-up with surgery, and could consider repeat CT scan in [address] imaging showing persistent/increasing fluid collections in the future, then would engage IR to drain repositioning/upsizing or potentially new drain placement if needed. If new drains are placed, please send for culture (bacterial aerobic/anaerobic and fungal Cx) Recommendations: - Continue pip-tazo 4.5g IV q8h (extended infusion) while inpatient. Recommend to complete a tentative 2-week course of pip-tazo after OR (04/2605/09/24), with reevaluation and consideration of extending abx course per follow-up. If will be discharging and completing the course with OPAT, change to either pip- tazo 4.5 g IV q6h (bolus dosing) or pip-tazo 18 g IV daily continuous infusion, depending on patient preference and insurance/home infusion options. - Stop vancomycin - Consider repeat CT scan in 2 weeks (approx. 05/0805/09/24, or sooner if clinical worsening). If repeat CT imaging showing persistent/increasing fluid collections, then would engage IR to drain repositioning/upsizing or potentially new drain placement if needed. If new drains are placed, please send for culture (bacterial aerobic/anaerobic and fungal Cx) - Weekly lab monitoring while on IV antibiotics: CBC w/ diff, CMP, ESR, CRP. Please ensure these are collected as an outpatient and results are followed in clinic - Ensure close follow-up with surgery - Ensure close follow-up with primary care Plan discussed with Dr. Dinero. Thank you for letting ID participate in the care of this patient. ID will sign off at this time. If questions, please contact the [facility] at [phone]. Elisabeth Oneal MD, MHS Infectious Diseases [facility] direct line: [phone] Consultation Information Consultation was provided via telemedicine using two-way real-time interactive telecommunication between the patient and the telemedicine provider. For the duration of the visit, the provider was performing the assessment from a different facility than the patient. This includesuse of bluetooth stethoscope forauscultationperformed by the telepresenter that the telemedicine provider can hear if described in the physical exam. Aviation Technician contact information: Please call [facility] Call Center . (Phone Number For Physician Use Only) After establishing a telemedicine visit, patient was: Patient was verified with two unique identifiers, Patient/authorized rep acknowledged consent and understanding and Gave permission to continue telehealth session Time Spent with Patient: Initial => 75 min History of Present Illness Reason for Consultation: Intraabdominal abscess, Cx + Pseudomonas Attending Physician: Anamaria Dinero MD History of Present Illness Daniela Champagne is a 69-year-old woman with history of afib s/p cardioversion on Eliquis, HTN, DM II, RA on chronic prednisone 5 mg daily, CKD III, chronic anemia, history of recurrent UTIs on chronic Bactrim, h/o laparoscopic hysterectomy, hypothyroidism, who presented to [facility] on 04/25/24 with a few days of constipation and cramping in her lower abdomen as well as AMS and weakness. Found to have perforated acute sigmoid diverticulitis c/b pneumoperitoneum and pericolonic abscesses. S/p laparoscopic drainage of intraabdominal abscesses and POOJA on 04/26/24 with BENOIT drain placement. ID is consulted for perforated diverticulitis c/b intraabdominal abscesses. She presented to the ED with weakness and confusion. This was in the setting of 1 week of worsening constipation, and recently with increased abdominal discomfort, nausea, and distension. She was initially febrile with Temp 39.6C, Pulse: 89, R: 27, BP: 159/71, 93% on RA. WBC [address] A/P showed perforated acute sigmoid diverticulitis with a small amount of pneumoperitoneum and loculated gas-fluid collections c/w abscesses (pericolonic abscess inferior to mid-sigmoid 5.5x4.0 cm, pelvic cul-de-sac 4.8x4.4 cm, R deep pelvis 6.8x1.3 cm). She became more hypotensive down to 80s/40s and responded to fluid resuscitation. She was started on vancomycin and pip-tazo. S/p laparoscopic drainage of intraabdominal abscesses and POOJA on 04/26/24; intraoperative notes describe copious purulent fluid in multiple abscess cavities as well as purulent rind overlying the pelvic wall peritoneum and anterior surface of the sigmoid colon. BENOIT drains placed and have been draining serous fluids. 04/26 intraabdominal OR Cx + Pseudomonas aeruginosa. Post-operatively, she continues to have intermittent low-grade fevers, Tmax 37.5 on 04/28. WBC has improved to 10.22. At the time of evaluation, the patient feels very well. Minimal abdominal soreness and some pain at the laparoscopy sites. BENOIT drain in place, reports that the drainage has slowed today. She reports that she had lumbar spine surgery ~2 months prior (removal of prior hardware and hardware replacement) and that she also has some ongoing back pain. Repeat CT A/P on 04/28 showing with near-complete resolution of pericolonic and pelvic abscesses, trace residual fluid and small pocket extraluminal pericolonic gas; no new collections; anasarca and small bilateral pleural effusions. Allergies Allergy/AdvReac Type Severity Reaction Status Date / Time tetracycline Allergy Severe Facial rash Verified 04/25/24 13:13 methenamine Allergy Intermediate Swelling Verified 04/25/24 13:13 of Lip/Tongue/Throat Qfqrxea-KRU-AzV Reductase AdvReac Intermediate LE edema Verified 04/25/24 13:13 Inhibitor [Fidoljw-Jmj-Bqx Reductase Inhibitor] morphine AdvReac Mild Nausea Verified 04/25/24 13:13 oxycodone AdvReac Mild Drowsy Verified 04/25/24 13:13 Home Medications Medication Instructions Recorded Confirmed Type cholecalciferol (vitamin D3) 25 1,000 unit PO QAM 10/26/18 04/25/24 History mcg (1,000 unit) capsule (Vitamin D3) magnesium 250 mg tablet 250 mg PO HS 10/26/18 04/25/24 History acetaminophen 500 mg tablet 1,000 mg PO Q6H PRN Pain 12/24/18 04/25/24 History (Tylenol Extra Strength) L.acidop,casei,lactis,rham-B.lact,reyes 1 cap PO HS 12/12/22 04/25/24 History 625 mg (10 billion cell) capsule (Advanced Probiotic) furosemide 20 mg tablet (Lasix) 20 mg PO DAILY PRN edema of legs 12/13/22 04/25/24 Rx #30 tabs metoprolol succinate 100 mg 100 mg PO BID #180 tabs 01/13/23 04/25/24 Rx tablet,extended release 24 hr OneTouch Delica Plus Lancet 33 #100 ea 05/21/23 04/25/24 Rx gauge (lancets) OneTouch Verio Reflect Meter #1 ea 05/21/23 04/25/24 Rx (blood-glucose meter) OneTouch Verio test strips (blood #100 ea 05/21/23 04/25/24 Rx sugar diagnostic) pen needle, diabetic 31 gauge x #100 ea 09/18/23 04/25/24 Rx 1/4" amiodarone 200 mg tablet 200 mg PO HS #90 tabs 09/21/23 04/25/24 Rx apixaban 5 mg tablet (Eliquis) 5 mg PO BID #180 tabs 09/21/23 04/25/24 Rx insulin glargine 100 unit/mL (3 5 unit (0.05 mL) subcut HS #15 mL 11/05/23 04/25/24 Rx mL) subcutaneous pen (Lantus Solostar U-100 Insulin) gabapentin 300 mg capsule 600 mg PO HS 01/14/24 04/25/24 History semaglutide 0.25 mg or 0.5 mg (2 0.5 mg subcut Q7D 01/14/24 04/25/24 History mg/3 mL) subcutaneous pen injector (Ozempic) sulfamethoxazole 800 1 tab PO QAM preventative 01/14/24 04/25/24 History mg-trimethoprim 160 mg tablet (Bactrim DS) levothyroxine 112 mcg tablet 112 mcg PO DAILY 01/30/24 04/25/24 History omeprazole 20 mg capsule,delayed 20 mg PO DAILY 01/30/24 04/25/24 History release prednisone 5 mg tablet 5 mg PO DAILY 01/30/24 04/25/24 History tramadol 50 mg tablet 50 mg PO Q6H PRN pain, moderate 01/30/24 04/25/24 Rx #30 tabs cyclobenzaprine 10 mg tablet 10 mg PO DAILY PRN muscle spasm 04/25/24 04/25/24 History Patient History Medical History Chronic steroid use On anticoagulant therapy History of cardioversion 12/13/22 and 12/31/22 ([facility]) History of stroke Vertebrobasilar artery brainstem stroke 2020, slight residual right sided weakness Given TPA on 04/21/2021 with resolution of symptoms History of recent blood transfusion 09/18/22 @ [facility] History of COVID-19 2020- hospitalized at [facility] for 9 days, no issues now GERD (gastroesophageal reflux disease) Anxiety Stenosis of left internal carotid artery 50-69% stenosis of left ICA per 04/2021 neck CTA Stenosis of left vertebral artery Approximately 90% stenosis within V4 segment of left vertebral artery per 04/21/2021 neck CTA History of MRSA infection lumbar surgical incision s/p vanco/ceftriaxone/bactrim per 04/2019 [facility] discharge summary 2022 - positive nasal swab Lumbar radiculopathy Spinal stenosis Diabetes mellitus type II, controlled Surgical History History of lithotripsy 03/2023 at [facility] --> right kidney stone History of esophagogastroduodenoscopy (EGD) Hx of colonoscopy Hx laparoscopic cholecystectomy (02/12/23) Robotic Assisted Laparoscopic Cholecystectomy (Not Applicable) - Otto Fish DO History of ERCP w/stent placement; s/p stent removal also History of lumbar surgery Lumbar Spine Wound Revision 2018 Status post laminectomy with spinal fusion L2-L5 laminectomy/fusion (12/24/18): Grade view 1, MAC#3, ETT 7.0 Hx of tonsillectomy History of x2 History of total left knee replacement History of hysterectomy total Family History Father Diabetes Lung cancer Cancer Hypertension Mother Malignant neoplasm of brain Diabetes Brain tumor Cancer Hypertension Aunt Breast cancer Sister Hypertension Other No family history of adverse response to anesthesia Denies family history of Ovarian cancer Prostate cancer Myocardial infarction Colorectal cancer Social History Smoking Status: Never smoker Second Hand Exposure: Yes (hx); Hx Alcohol Use: No Hx Substance Use: No Preferred Language: Sammarinese Communication Ability: Effective Visual Impairment: No Limitations Hearing Ability: Normal Rubbish Collection Supervisor Required: No Beliefs That Will Affect Care: None marital status: Current Living Situation: Spouse Current Living Situation Comment: 1 level home current occupational status: retired How many Children do You have: 2 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 Feels Safe at Home: Yes Safety Concerns: Feels Safe At This Time Childhood Exposure to Second-Hand Smoke: Yes Diet: gluten free caffeine: Yes Dental Care, Regularly: Yes Physical Activity Frequency: 5-6 Times per Week Physical Activity Frequency Comment: gym Seatbelt Use: always Sunscreen Use: Yes Do you think of yourself as: straight/heterosexual Assistive Devices: Cane and Walker Physical Exam Physical Exam: Exam obtained with aid of in-person telepresenter. General: Well-appearing, no acute distress HEENT: Conjunctivae non-injected, sclerae anicteric, MMM, OP clear. Resp: Respirations nonlabored. Abd: Soft, nontender. Moderately distended. LLQ BENOIT drain insertion site with mild erythema. BENOIT drain with clear yellowish drainage. Laparoscopy scars healing c/d/i. Ext:. No joint warmth or effusions noted. Skin: No rashes or lesions. Neuro: Alert & interactive. Grossly non-focal. Psych: Pleasant, appropriate. Results & Data Vital Signs (Past 12 Hours) Vital Signs Temp Pulse Resp BP Pulse Ox O2 Del Method O2 Flow Rate 04/28/24 09:02 75 04/28/24 08:30 Nasal Cannula 2 04/28/24 08:01 37.2 C 76 21 170/93 H 97 Nasal Cannula 2 04/28/24 05:00 37.3 C 74 13 97 04/28/24 04:03 37.3 C 74 15 97 04/28/24 04:00 174/106 H 04/28/24 04:00 174/106 H 04/28/24 03:57 37.3 C 74 14 96 Diagnostic Findings Diagnostics: 04/28 CT A/P 1. Status post laparoscopy with drainage of intra-abdominal abscesses and placement of a pelvic surgical drain for perforated sigmoid diverticulitis. Near complete resolution of the pericolonic and pelvic abscesses with trace residual fluid and a small pocket of extraluminal pericolonic gas. The surgical drain extends through both collections. No new collections. 2. No evidence for a bowel obstruction. 3. Anasarca. Interval development of small bilateral pleural effusions with lower lobe opacity suggestive of atelectasis. 04/26 Op note Diagnostic Laparoscopy, drainage of intra-abdominal abscesses and lysis of adhesions Pneumoperitoneum was established to a goal pressure of 15 mmHg. Once this pressure was achieved, a 5 mm trocar was inserted using direct visualization with a 5 mm laparoscope in a Visipor.t obturator. 2 additional 5 mm trocars were inserted at the right upper and lower quadrant using direct visualization. There were no injuries to surrounding structures caused by the insertion of the trocars. Initially in the abdomen there were soft adhesions, there was no free fluid that appeared suspicious for perforation. There was a small amount of lightly brown-tinged serous fluid within the pelvis. There was edema within the peritoneum adjacent to the sigmoid colon. As the sigmoid colon was mobilized, there was an area of fibrinous exudate noted at the proximal sigmoid colon where the colon was attached to the pelvic sidewall. This area was lightly peeled back to inspect for any bowel perforation or abscess cavity. There is no abscess cavity immediately encountered just additional adhesive tissue this was not further disturbed. The patient was positioned in Trendelenburg and right side down. Inspection was then turned to the pelvic area where the small bowel was mobilized away to identify the colon. An adhesion existed from the peritoneum of the bladder to the small bowel. Once this adhesion was gently lysed using alternating blunt and endoscopic letha sharp dissection, an abscess cavity was encountered and copious amounts of purulent fluid were drained. Fluid was obtained for culture. Purulent fluid was suctioned away, irrigated and further suctioned. The lower aspect of the rectum contain adhesion to the lower portion of the bladder. Units this was a another very large abscess cavity was encountered evacuating and excess amount of purulent fluid. This was again suctioned away, irrigated copiously and further suctioned. There was a tremendous amount of purulent rind lying over the peritoneum of the pelvic wall and the anterior surface of the sigmoid colon without ever identifying a perforation or extravasation from the colon. The inta-abdominal and pelvic space were copiously irrigated with 4L of saline which was suctioned away from all 4 quadrants. A 15Fr Otto drain was left in the pelvis extended from the patient's LLQ. This was sutured in place with a 3-0 Nylon suture and a BENOIT bulb was attached. 04/25 CT A/P without contrast FINDINGS: Mild dependent changes seen within the lung bases. There is a small amount of scattered pneumoperitoneum identified. This is secondary to the suspected perforated acute sigmoid diverticulitis at the mid sigmoid colon. The pericolonic inflammatory change surrounds the mid sigmoid colon. There are a few loculated gas and fluid collections within the pelvis consistent with abscesses. The pericolonic abscess inferior to the mid sigmoid colon measures 5.5 x 4.0 cm. There is also 4.8 x 4.4 cm abscess within the pelvic cul-de-sac. There is a 6.8 x 1.3 cm abscess along the right deep pelvis on image [id number]. These abscesses may connect. No dilated loops of bowel to suggest an obstruction. Normal appendix. Hysterectomy. Mild bladder wall thickening. This may be reactive. No evidence for a bladder fistula at this time. L3-S1 posterior decompression and fusion again noted. There are healing bilateral anterior rib fractures. No acute fractures identified. There is an old moderate inferior endplate compression fracture at T12, unchanged. There is mild cardiomegaly. Mild hepatic steatosis. Prior cholecystectomy. The unenhanced pancreas, spleen, and adrenal glands unrem arkable. There is a punctate cortical calcification within the right kidney. No renal or ureteral calculi. No hydronephrosis. No retroperitoneal lymphadenopathy. Calcified plaque within the normal caliber abdominal aorta. with multiple intraabdominal abscesses IMPRESSION: 1. Perforated acute sigmoid diverticulitis as described above with a small amount of pneumoperitoneum and pericolonic abscesses. 2. Mild bladder wall thickening. This is likely reactive to the acute diverticulitis. No evidence for a fistula. 3. No evidence for bowel obstruction. 4. Normal appendix. 5. Additional findings as described above. Micro Data: 04/26 intraabdominal abscess Cx: rare Pseudomonas aeruginosa (S-pip-tazo/ceftaz/ceftaz-pepe/gent/tobra; I-cefepime; R-meropenem/cipro/levo), low counts skin emil; stain with many WBCs, moderate GPCs, rare GNRs, rare GPRs 04/25 BCx x2: NGTD 04/25 UCx: >100k alpha-Strep (not Enterococcus) Antibiotic Summary: pip-tazo (04/25 present) prior vancomycin (04/25 present) cefepime (04/25) metronidazole (04/25)
[2024-04-28] MEDS ORDERED: ACETAMINOPHEN 1,000 MG/100 ML VIAL IV PRN (18:04)
[2024-04-28] MEDS: oxyCODONE/ACETAMINOPHEN 5mg/325mg TAB PO PRN (18:22)
[2024-04-29 05:20] LABS: BUN Creatinine Ratio 20.6 (10-20); Calcium 7.9 mg/dl (8.6-10.3); Creatinine Clr Calc Pharmacy 54.7 ml/min; Est GFR (African American) 61.3 ml/min; Est GFR (Non-African American) 52.9 ml/min; Magnesium 2.1 mg/dl (1.7-2.4); Potassium 3.6 mmol/L (3.5-5.1)
[2024-04-29 05:24] LABS: Hematocrit (blood only) 30.6 % (37.0-47.0); Hemoglobin 9.1 g/dl (12.0-16.0); Mean Corpuscular Hemoglobin 28.8 pg (25.0-34.0); Mean Corpuscular Hgb Conc 29.7 g/dL (32.0-36.0); Mean Corpuscular Volume 96.8 fL (80.0-100.0); Mean Platelet Volume 9.6 fL (9.4-12.4); Platelet Count 236 K/uL (130-400); RDW Coefficient of Variation 14.6 % (11.5-14.5); RDW Standard Deviation 52.2 fL (36.4-46.3); Red Blood Count 3.16 M/uL (4.20-5.40); White Blood Count 11.05 K/ul (4.8-10.8)
--- NOTE | 2024-04-29 07:22 | Surgery Progress Note ---
<Statement entered by German Shultz, DO - 04/29/24 08:37> I agree with this plan. Home antibiotic planning per ID recs, will patient need PICC? If so, initiate for discharge planning. Date of Service April 29, 2024 Assessment & Plan (1) Diverticulitis of sigmoid colon: Plan: POD 3 Diagnostic Laparoscopy, drainage of intra-abdominal abscesses and lysis of adhesions with Dr. Shultz WBC 11(10), temps ranging from 98-99F. no true fevers in over 48 hrs. other vitals stable. pt reports feeling well overall. no pain at rest, some mild discomfort in L lower abdomen to palpation BENOIT serous 10cc over last 12 hrs Zamorano has been removed and she is voiding continue iv abx, ID is on board. they did recommend a CT scan yesterday unbeknownst to us which showed no un-drained fluid collections Will advance to clears today, she is passing gas and BMs work on pulmonary toilet with IS and needs to get OOB ambulating. PT/OT on board can downgrade from ICU. appreciate medical team Admission and Anticipated Discharge Date Admission Date: April 25, 2024 Subjective Patient reports feeling well. Pain well controlled. No nausea/vomiting. + flatus/BM yesterday. Zamorano removed and she is voiding. She has been out of bed. Hungry. Physical Exam Physical Exam: awake/alert, no distress Respiratory: normal respiratory effort on 1L nasal cannula Gastrointestinal (Abdomen): Inspection/Auscultation: + abdominal surgical incision (c/d/i with dermabond) Percussion/Palpation: + abdomen tender (some discomfort to the LLQ) and abdomen soft BENOIT drain with scant drainage, all serous Results & Data Vital Signs (Past 12 Hours) Vital Signs Temp Pulse Resp BP Pulse Ox O2 Del Method O2 Flow Rate 04/29/24 04:10 98.6 F 70 14 137/72 96 Nasal Cannula 1 04/29/24 00:05 75 04/29/24 00:00 99.0 F 75 14 147/78 H 96 Nasal Cannula 1 04/28/24 19:53 Nasal Cannula 1 04/28/24 19:30 99.0 F 75 18 149/70 H 96 Nasal Cannula 1 PG Care Time/CCT Total # of Minutes Spent Total Time Spent with Patient: Total time spent is greater than 50% in coordination of care (as documented) at patient's floor/unit and/or counseling patient: Coding Level of Care Code 40705 Post Operative Follow-Up Diagnoses Diverticulitis of sigmoid colon K57.32
[2024-04-29] MEDS: INSULIN ASPART PER UNIT CHARGE SC SCH (12:05)
--- NOTE | 2024-04-29 16:06 | Hospitalist Progress Note ---
Date of Service April 29, 2024 Assessment & Plan (1) Severe sepsis: (2) Perforated diverticulum: (3) Pelvic abscess in female: (4) Type 2 diabetes mellitus with insulin therapy: (5) Paroxysmal atrial fibrillation: (6) (HFpEF) heart failure with preserved ejection fraction: (7) Hypertension: (8) Hyperlipidemia: (9) Chronic kidney disease, stage 3b: (10) Rheumatoid arthritis: (11) Anemia of chronic disease: (12) Hypothyroidism: (13) Recurrent UTI: Plan: 69-year-old female with PMH of HTN, HLD, atrial fibrillation s/p cardioversion, chronically anticoagulated on Eliquis, DM II, rheumatoid arthritis on chronic prednisone, CKD III, chronic anemia, history of recurrent UTIs, hypothyroidism presented to ER with complaint of noted altered mental status and weakness. Some constipation and cramping sensation to lower abdomen past couple of days. Pat ient was reported to be somewhat somnolent on arrival and was found to be febrile with Temp 39.6C, Pulse: 89, R: 27, BP: 159/71, 93% on RA. WBC: 16, Lactate: 2.0, procalcitonin: 0.35 CT abd/pelvis on admission showed perforated acute sigmoid diverticulitis with a small amount of pneumoperitoneum and pericolonic abscesses. Complicated sigmoid diverticulitis with perforation and intraabdominal abscess with septic shock - Septic shock resolved. s/p pressors in ICU, now off of pressors and transferred out of ICU 04/28 - s/p diagnostic Laparoscopy, drainage of intra-abdominal abcesses and lysis of adhesions by Dr Shultz 04/26/2024. - Abscess clx showing pseudomonas sensitive to Zosyn but resistant to FQ and cefepime. Seen by ID- recommended 2 weeks of IV zosyn- Home antibiotic arrangement in progress - Repeat CT A/P 04/28 shows near complete resolution of the pericolonic and pelvic abscesses with trace residual fluid and a small pocket of extraluminal pericolonic gas. The surgical drain extends through both collections. No new collections. - Diet advancement, drain and pain management per surgical team - Per ID- Continue pip-tazo 4.5g IV q8h (extended infusion) while inpatient. Recommend to complete a tentative 2-week course of pip-tazo after OR (04/2605/09/24), with reevaluation and consideration of extending abx course per follow-up. If will be discharging and completing the course with OPAT, change to either pip-tazo 4.5 g IV q6h (bolus dosing) or pip-tazo 18 g IV daily continuous infusion, depending on patient preference and insurance/home infusion options. - Consider repeat CT scan in 2 weeks (approx. 05/0805/09/24, or sooner if clinical worsening). If repeat CT imaging showing persistent/increasing fluid collections, then would engage IR to drain repositioning/upsizing or potentially new drain placement if needed. If new drains are placed, please send for culture (bacterial aerobic/anaerobic and fungal Cx) - Weekly lab monitoring while on IV antibiotics: CBC w/ diff, CMP, ESR, CRP. Please ensure these are collected as an outpatient and results are followed in clinic Paroxysmal atrial fibrillation: : S/P cardioversion x 2. On amiodarone and toprol. Home eliquis on hold since admission. Currently on sinus rhythm. Will discuss with surgical team regarding when eliquis can be resumed. DM II: Insulin dependent. A1c: 5.6 on 11/21/23. BG well controlled on insulin Chronic kidney disease, stage 3:: Cr: 1.7. Baseline creatinine: ~1.7 . Monitor renal functions HFpEF: Uses Lasix on as needed basis. Will start on home lasix given the anasarca and effusion on imaging. Echo: 12/26/22: EF: 60-65%. Hyperlipidemia: On Repatha Rheumatoid arthritis: . On chronic prednisone 5mg daily- resumed. S/p stress dose of steroid. Follows with rheumatology, Dr. Padron Hypothyroidism: On home levothyroxine Anemia of chronic disease and iron deficiency anemia: Baseline 9-10. Hb stable. Follows with hematology and receives IV iron. Monitor H&H Recurrent UTI: History recurrent UTI. On home chronic Bactrim. On hold while getting iv antibiotic. Follows with urology, Dr. Ramos DVT ppx- sc heparin. Will resume home eliquis when cleared by surgical team Dispo- Advancing diet per surgical team. Discharge home once home iv antibiotics set up and cleared by surgical team Updated at bedside Time spent- approx 35 mins Admission and Anticipated Discharge Date Admission Date: April 25, 2024 Subjective Patient was seen and examined at bedside in presence of her . She feels good. Tolerating full liquid diet without issues. No nausea or vomiting. Denies any pain. Having regular bowel movements. Doing well with physical therapy. She is looking forward to going home with home antibiotics. Review of Systems Review of Systems: All systems reviewed & are unremarkable except as noted in Subjective Physical Exam Physical Exam: General: Lying comfortably in bed, not in distress, on NC HEENT: EOMI, CECILIA, MMM Chest: Clear breath sounds bilaterally, no wheezes or crackles CVS: Regular rate and rhythm, normal heart sounds, no murmur Abdomen: Soft, non tender, not distended, normal bowel sounds. BENOIT drain left lower quadrant with minimal serosanguineous output during my encounter. Neuro: Awake, alert, oriented, conversing well, non focal Extremities: No cyanosis, clubbing or edema Results & Data Results & Data Vital Signs (Past 12 Hours) Vital Signs Temp Pulse Resp BP Pulse Ox O2 Del Method O2 Flow Rate 04/29/24 14:15 36.6 C 04/29/24 14:06 66 20 93 Room Air 04/29/24 13:42 146/76 H 04/29/24 12:00 67 24 97 Nasal Cannula 1 04/29/24 08:41 36.6 C 04/29/24 08:24 69 18 127/83 96 Nasal Cannula 1 04/29/24 08:15 Nasal Cannula 1 04/29/24 04:10 37.0 C 70 14 137/72 96 Nasal Cannula 1 Laboratory Results Short CBC 04/29/24 Range/Units 04:23 WBC 11.05 H (4.8-10.8) K/ul Hgb 9.1 L (12.0-16.0) g/dl Hct 30.6 L (37.0-47.0) % Plt Count 236 (130-400) K/uL BMP 04/29/24 04:23 Sodium 136 Potassium 3.6 Chloride 102 Carbon Dioxide 25 BUN 22 Creatinine 1.07 Glucose 82 Calcium 7.9 L Medications Administered Current Inpatient Medications Amiodarone HCl (Amiodarone 200 Mg Tab) 200 mg PO HS NASRA Stop: 05/27/24 20:59 Last Admin: 04/28/24 20:06 Dose: 200 mg Dextrose (Dextrose 50% 50 Ml Syringe) 25 - 50 ml IV UD PRN; Protocol PRN Reason: Hypoglycemia Protocol Stop: 05/25/24 17:32 Glucagon (Glucagon For Inj 1 Mg Vial) 1 mg SQ UD PRN; Protocol PRN Reason: Hypoglycemia Protocol Stop: 05/25/24 17:32 Glucose (Glucose 40% Gel 15 Gm Tube) 15 - 30 gm PO UD PRN; Protocol PRN Reason: Hypoglycemia Protocol Stop: 05/25/24 17:32 Glucose (Glucose 10 Tab/Tube) 4 - 8 tab PO UD PRN; Protocol PRN Reason: Hypoglycemia Treatment Stop: 05/25/24 17:32 Hydromorphone HCl (Hydromorphone Inj 0.5 Mg/0.5 Ml Syr) 0.25 mg IV Q3H PRN PRN Reason: Moderate Pain (Scale 4, 5, 6) Stop: 05/10/24 14:36 Last Admin: 04/27/24 07:39 Dose: 0.25 mg Hydromorphone HCl (Hydromorphone Inj 0.5 Mg/0.5 Ml Syr) 0.5 mg IV Q3H PRN PRN Reason: severePain Stop: 05/10/24 14:36 Last Admin: 04/27/24 20:38 Dose: 0.5 mg Piperacillin Sod/Tazobactam (Sod 4.5 gm/ Dextrose) 100 mls @ 25 mls/hr IV Q8H NASRA; Protocol Stop: 05/05/24 20:59 Last Admin: 04/29/24 12:13 Dose: 25 mls/hr Parenteral Electrolytes (Plasma-Lyte A Ph 7.4) 1,000 mls @ 50 mls/hr IV .Q20H ON LICENSE OF [facility] Stop: 05/25/24 17:44 Last Admin: 04/29/24 15:56 Dose: 50 mls/hr Pantoprazole Sodium 40 mg/ (Syringe) 10 mls @ 5 mls/min IV DAILY@1100 ON LICENSE OF [facility] Stop: 05/26/24 10:59 Last Admin: 04/29/24 11:00 Dose: 5 mls/min Hydrocortisone Sodium (Succinate 25 mg/ Syringe) 0.5 mls @ 4 mls/min IV DAILY NASRA Stop: 05/27/24 08:59 Last Admin: 04/29/24 09:27 Dose: 4 mls/min Insulin Aspart (Insulin Aspart Per Unit Charge) 0 units SC ACHS ON LICENSE OF [facility] Stop: 05/29/24 11:29 Last Admin: 04/29/24 12:05 Dose: Not Given Levothyroxine Sodium (Levothyroxine Sodium 112 Mcg Tablet) 112 mcg PO DAILYBB ON LICENSE OF [facility] Stop: 05/28/24 06:29 Last Admin: 04/29/24 06:14 Dose: 112 mcg Metoprolol Succinate (Metoprolol Succ 50mg Ext Rel Tab) 100 mg PO BID ON LICENSE OF [facility] Stop: 05/27/24 20:59 Last Admin: 04/29/24 09:27 Dose: 100 mg Miscellaneous (Carbohydrates For Hypoglycemia ) 15 - 30 gm PO UD PRN PRN Reason: Hypoglycemia Protocol Stop: 05/25/24 17:32 Oxycodone/Acetaminophen (Oxycodone/Acetaminophen 5mg/325mg Tab) 1 tab PO Q6H PRN PRN Reason: Moderate Pain (Scale 4, 5, 6) Stop: 05/12/24 18:02 Last Admin: 04/29/24 06:14 Dose: 1 tab (7) Hypertension Hypertension type: essential hypertension Qualified Code(s): I10 - Essential (primary) hypertension (8) Hyperlipidemia Hyperlipidemia type: pure hypercholesterolemia Qualified Code(s): E78.00 - Pure hypercholesterolemia, unspecified (10) Rheumatoid arthritis Rheumatoid arthritis location: multiple sites Rheumatoid factor presence: unspecified presence Qualified Code(s): M06.9 - Rheumatoid arthritis, unspecified (12) Hypothyroidism Hypothyroidism type: unspecified Qualified Code(s): E03.9 - Hypothyroidism, unspecified
[2024-04-29] MEDS: HEPARIN SOD 5,000 UNIT/0.5 ML VIAL SQ SCH (20:04)
[2024-04-30] MEDS ORDERED: PANTOprazole 40 MG TAB PO SCH (09:00)
[2024-04-30] MEDS ORDERED: FUROSEMIDE 20 MG TAB PO SCH (09:00)
[2024-04-30] MEDS ORDERED: predniSONE 5 MG TAB PO SCH (09:00)
--- NOTE | 2024-04-30 15:35 | Communication Note ---
Date of Service: April 30, [address] Oneal regarding the abscess culture showing Tissierella on top on pseudomonas and she did not recommend any change in the current antibiotic plan.
[2024-04-30 17:57] LABS: BUN Creatinine Ratio 14.7 (10-20); Calcium 7.9 mg/dl (8.6-10.3); Creatinine Clr Calc Pharmacy 54.3 ml/min; Est GFR (Non-African American) 51.8; Potassium 3.2 mmol/L (3.5-5.1)
[2024-04-30 21:53] LABS: Hematocrit (blood only) 30.8 % (37.0-47.0); Hemoglobin 9.4 g/dl (12.0-16.0); Mean Corpuscular Hemoglobin 29.3 pg (25.0-34.0); Mean Corpuscular Hgb Conc 30.5 g/dL (32.0-36.0); Mean Platelet Volume 9.4 fL (9.4-12.4); Platelet Count 260 K/uL (130-400); RDW Coefficient of Variation 14.6 % (11.5-14.5); RDW Standard Deviation 51.4 fL (36.4-46.3); Red Blood Count 3.21 M/uL (4.20-5.40)
== END 2024-04-30 16:00 | disposition home health service (06) | DRG 853 ==
LOC: ED 10:32 → 1E 15:27 → SUATTDRO 15:27 → 1E 16:43

== ENCOUNTER 2025-10-03 12:26 | Inpatient (IN) ==
[2025-10-03] MEDS: SODIUM CHLORIDE 0.9% 1,000 ML IV SCH ×2 (13:29→19:33)
--- NOTE | 2025-10-03 13:33 | Emergency Department Note ---
Impression & Plan Sepsis, UTI (urinary tract infection), Acute metabolic encephalopathy ED Provider Note CHIEF COMPLAINT: Altered mental status HISTORY OF PRESENT ILLNESS: This 70-year-old female with past medical history of metabolic encephalopathy, type 2 diabetes, paroxysmal atrial fibrillation, diabetic neuropathy, stroke, rheumatoid arthritis, chronic steroid dependency presents emergency department with sudden onset of altered mentation this morning. states he woke up and found the patient sitting in a chair at approximately 630 this morning shivering, stating she was not able to get warm. She was then not able to eat toast that she had requested and became nauseated. She did dry heave. She has not had a fever. REVIEW OF SYSTEMS: A review of systems was performed with positives and pertinent negatives listed in the history of present illness. 10 systems were reviewed and are otherwise negative. ALLERGIES: see below MEDICATIONS: see below PMH: see below SOCIAL HISTORY: see below DDx: UTI, pyelonephritis, sepsis, kidney stone, dehydration, medication effect, intracranial hemorrhage, stroke among others. PHYSICAL EXAM: Vital signs reviewed. General: Chronically ill-appearing 70-year-old female HEENT: No scleral icterus, PERRLA, neck supple. Atraumatic. Cardiovascular: Regular rate and rhythm, no extra sounds. Pulmonary: Clear to auscultation bilaterally, normal work of breathing. Abdomen: Soft, nontender, nondistended, positive bowel sounds. Musculoskeletal: Atraumatic, no peripheral edema. Neurologic: Patient confused states the year is [id number]. Skin: Warm, dry, no rash EMERGENCY DEPARTMENT COURSE/MDM: This patient was evaluated and appeared to be in no significant distress. Physical examination is consistent with metabolic encephalopathy. CT imaging of the head was performed and reveals no evidence of acute intracranial process. Laboratory work reveals an elevated WBC and hemoglobin of 6.8. Patient's lactate is elevated at 2.6, procalcitonin of 2.05. Blood cultures have been obtained and the patient was initiated on IV Zosyn. A total of 2 L of IV normal saline solution have been administered which is consistent with her ideal body weight 30 mL/kg requirements. Previous urine culture reveals an ESBL 1 week ago. Patient has been consented for PRBCs. Type and cross is pending. Findings were discussed with the patient's at the bedside who has agreed to admission and further management. MONITORING: An order for cardiac monitoring was placed and the patient is noted to be in a NSR 95 bpm. RADIOLOGY: Chest x-ray to my interpretation reveals no focal lung consolidation or failure. EKG: To my interpretation reveals a sinus arrhythmia at [address] abnormality, QTc of 444 DISPOSITION: Admission I have personally spent greater than 45 minutes of critical care time in the direct management of this patient. This includes bedside care, interpretation of diagnostic studies, and testing, discussion with consultants, patient, and family members, and other required patient management activities. This 45 minutes is in excess of all separately billable procedures. Past Med/Surg History Problem List (Updated 10/03/25 @ 15:23 by Ivonne Harrison MD) Acute metabolic encephalopathy (Acute) UTI (urinary tract infection) (Acute) Sepsis (Acute) Frequent urinary tract infections Acute dehydration (Acute) AISHWARYA (acute kidney injury) (Acute) Metabolic encephalopathy Nausea & vomiting (Acute) Sleep apnea Exertional shortness of breath Steroid dependent Hypersomnia Abnormal chest CT History of arthroscopic surgery of elbow Operation Date: 09/02/24 08:20 Actual Procedures p Right Elbow Arthroscopy, Loose Body Removal(Right) - Naresh Cox MD Elbow injury Olecranon bursitis Loose body in right elbow Spinal stenosis of lumbar region with radiculopathy Neurogenic claudication due to lumbar spinal stenosis Elbow effusion Dyslipidemia Medial epicondylitis, right elbow Osteoarthritis of right elbow Encounter for pre-operative examination Type 2 diabetes mellitus with insulin therapy Radiating chest pain 12/28/22 Paroxysmal atrial fibrillation x2 cardioversion 12/2022 Chronic heart failure with preserved ejection fraction Diabetes mellitus with neuropathy Diabetes mellitus with nephropathy Statin myopathy Mitral stenosis Thoracic compression fracture Ischemic stroke Immunosuppression due to drug therapy (Acute) *Prednisone daily* Vitamin D deficiency (Chronic) Hypothyroidism Rheumatoid arthritis Medical History Severe sepsis Failure of outpatient treatment History of recurrent urinary tract infection Hx of myocardial infarction per medical history - pt denies Hx of renal calculi Hypothyroidism Dyslipidemia History of diverticulitis CHF (congestive heart failure) History of atrial fibrillation x2 cardioversion 12/2022 Chronic steroid use On anticoagulant therapy History of cardioversion 12/13/22 and 12/31/22 ([facility]) History of stroke Vertebrobasilar artery brainstem stroke 2020, slight residual right sided weakness Given TPA on 04/21/2021 with resolution of symptoms History of recent blood transfusion 09/18/22 @ [facility] History of COVID-19 2020- hospitalized at [facility] for 9 days, no issues now GERD (gastroesophageal reflux disease) Anxiety Stenosis of left internal carotid artery 50-69% stenosis of left ICA per 04/2021 neck CTA Stenosis of left vertebral artery Approximately 90% stenosis within V4 segment of left vertebral artery per 04/21/2021 neck CTA History of MRSA infection lumbar surgical incision s/p vanco/ceftriaxone/bactrim per 04/2019 [facility] discharge summary 2022 - positive nasal swab Lumbar radiculopathy Spinal stenosis Diabetes mellitus type II, controlled IDDM Surgical History S/P lumbar fusion L5-S1 decompression and fusion with revision and hardware removal H/O exploratory laparotomy (04/26/24) Diagnostic Laparoscopy, drainage of intra-abdominal abcesses and lysis of adhesions (Not Applicable) - German Shultz DO History of lithotripsy 03/2023 at [facility] --> right kidney stone History of esophagogastroduodenoscopy (EGD) Hx of colonoscopy Hx laparoscopic cholecystectomy (02/12/23) Robotic Assisted Laparoscopic Cholecystectomy (Not Applicable) - Otto Fish DO History of ERCP w/stent placement; s/p stent removal also History of lumbar surgery Lumbar Spine Wound Revision 2018 Status post laminectomy with spinal fusion L2-L5 laminectomy/fusion (12/24/18): Grade view 1, MAC#3, ETT 7.0 Hx of tonsillectomy History of x2 History of total left knee replacement History of hysterectomy total Family History Father Diabetes Lung cancer Cancer Hypertension Mother Malignant neoplasm of brain Diabetes Brain tumor Cancer Hypertension Aunt Breast cancer Sister Hypertension Other No family history of adverse response to anesthesia Denies family history of Ovarian cancer Prostate cancer Myocardial infarction Colorectal cancer Social History Smoking Status: Never smoker Second Hand Exposure: Yes (hx); Do You Dip or Chew Tobacco: No; Hx Alcohol Use: Yes Alcohol type: wine Alcohol Intake Frequency: 2-4 x/Month Hx Substance Use: No Preferred Language: French Communication Ability: Effective Visual Impairment: No Limitations Hearing Ability: Normal Hydraulic Specialist Required: No Beliefs That Will Affect Care: None marital status: Current Living Situation: Spouse Current Living Situation Comment: 1 level home current occupational status: retired How many Children do You have: 2 other: 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 Feels Safe at Home: Yes Childhood Exposure to Second-Hand Smoke: Yes Diet: gluten free caffeine: Yes Dental Care, Regularly: Yes Physical Activity Frequency: 5-6 Times per Week Physical Activity Frequency Comment: gym Seatbelt Use: always Sunscreen Use: Yes Do you think of yourself as: straight/heterosexual Assistive Devices: Cane Allergies Allergies Allergy/AdvReac Type Severity Reaction Status Date / Time tetracycline Allergy Severe Facial rash Verified 08/08/25 09:03 methenamine Allergy Intermediate Swelling Verified 08/08/25 09:03 of Lip/Tongue/Throat [id number]-[id number]-CpY Reductase AdvReac Intermediate LE edema Verified 08/08/25 09:03 Inhibitor [Bdkqzrd-Trv-Bbd Reductase Inhibitor] morphine AdvReac Mild Nausea Verified 08/08/25 09:03 oxycodone AdvReac Mild Drowsy Verified 08/08/25 09:03 nitrofurantoin AdvReac Vomiting Verified 08/08/25 09:03 [From Macrobid] Home Meds Home Medications Medication Instructions Recorded Confirmed cholecalciferol (vitamin D3) 25 1,000 unit PO QAM 10/26/18 08/08/25 mcg (1,000 unit) capsule (Vitamin D3) magnesium 250 mg tablet 500 mg PO HS 10/26/18 08/08/25 acetaminophen 500 mg tablet 1,000 mg PO Q6H PRN Pain 12/24/18 08/08/25 (Tylenol Extra Strength) L.acidop,casei,lactis,rham-B.lact,reyes 1 cap PO HS 12/12/22 08/08/25 625 mg (10 billion cell) capsule (Advanced Probiotic) prednisone 5 mg tablet 5 mg PO QAM 01/30/24 08/08/25 losartan 25 mg tablet 25 mg PO UD 03/08/25 08/08/25 blood-glucose sensor [FreeStyle 03/14/25 08/08/25 Winter 3 Plus Sensor] Previous Rx's Medication Instructions Recorded OneTouch Delica Plus Lancet 33 #100 ea 05/21/23 gauge (lancets) OneTouch Verio Reflect Meter #1 ea 05/21/23 (blood-glucose meter) OneTouch Verio test strips (blood #100 ea 05/21/23 sugar diagnostic) cyclobenzaprine 10 mg tablet 10 mg PO DAILY PRN muscle spasm 08/23/24 #14 tabs semaglutide 1 mg/dose (4 mg/3 mL) 1 mg (0.75 mL) subcut ONCE #9 mL 08/30/24 subcutaneous pen injector ([employer]) pen needle, diabetic 31 gauge x #100 ea 10/11/24 1/" levothyroxine 125 mcg tablet 125 mcg PO QAM #90 tabs 12/09/24 evolocumab 140 mg/mL subcutaneous 140 mg subcut .q2week #2 mL 02/04/25 pen injector ([employer]) metoprolol succinate 100 mg 100 mg PO QAM #90 tabs 02/15/25 tablet,extended release 24 hr estradiol 0.01% (0.1 mg/gram) See Rx Instructions .Route 04/08/25 vaginal cream .COMPLEX #42.5 grams fosfomycin tromethamine 3 gram 1 packet PO Q OTHER DAY 3 doses #1 05/10/25 oral packet ea sulfamethoxazole 400 1 tab PO DAILY #90 tabs 05/10/25 mg-trimethoprim 80 mg tablet (Bactrim) amiodarone 200 mg tablet See Rx Instructions .Route 07/29/25 .COMPLEX #90 tabs apixaban 5 mg tablet (Eliquis) See Rx Instructions .Route 08/08/25 .COMPLEX #180 tabs gabapentin 300 mg capsule 600 mg (2 x 300 mg) PO HS #180 caps 08/09/25 levofloxacin 750 mg tablet 750 mg PO Q48H #3 tabs 08/31/25 omeprazole 20 mg capsule,delayed 20 mg PO QAM #90 caps 09/14/25 release levofloxacin 500 mg tablet 500 mg PO DAILY #3 tabs 09/28/25 Results & Data (ED) Vital Signs Vital Signs - 24 hr 10/03/25 12:43 10/03/25 12:49 10/03/25 13:20 Temperature 37.0 C Temperature Source Oral Pulse Rate 110 H 95 H Pulse Rate [Apical] Respiratory Rate 13 Blood Pressure 117/67 Blood Pressure [Right Arm] Blood Pressure Mean 83 Blood Pressure Mean [Right Arm] Blood Pressure Position [Right Arm] Pulse Oximetry 93 95 Oxygen Delivery Method Room Air Room Air Sepsis Recent Fever Within 48 Hours No Sepsis New/Unexplained Change in Mental Status N/A Sepsis Action Taken by Nursing No Action Required 10/03/25 14:00 Temperature Temperature Source Pulse Rate Pulse Rate [Apical] 87 Respiratory Rate 23 Blood Pressure Blood Pressure [Right Arm] 107/55 L Blood Pressure Mean Blood Pressure Mean [Right Arm] 72 Blood Pressure Position [Right Arm] Semi-fowlers Pulse Oximetry 95 Oxygen Delivery Method Room Air Sepsis Recent Fever Within 48 Hours Sepsis New/Unexplained Change in Mental Status Sepsis Action Taken by Correction Medications Current Medication List: was personally reviewed by me Laboratory Data Attestation: I reviewed the patient's lab results. 10/03/25 12:39 10/03/25 12:39 Lab Results 10/03/25 10/03/25 10/03/25 Range/Units 12:39 14:13 14:29 WBC 16.80 H (4.8-10.8) K/ul RBC 2.88 L (4.20-5.40) M/uL Hgb 6.8 L* (12.0-16.0) g/dL Hct 23.8 L (37.0-47.0) % MCV 82.6 (80.0-100.0) fL MCH 23.6 L (25.0-34.0) pg MCHC 28.6 L (32.0-36.0) g/dL RDW Std Deviation 49.5 H (36.4-46.3) fL RDW Coeff of Sumaya 16.4 H (11.5-14.5) % Plt Count 232 (130-400) K/uL MPV 10.0 (9.4-12.4) fL Immature Gran % (Auto) 0.9 % Neut % (Auto) 86.7 % Lymph % (Auto) 4.8 % Drew % (Auto) 5.8 % Eos % (Auto) 1.4 % Baso % (Auto) 0.4 % Neut # (Auto) 14.58 H (1.40-6.50) K/uL Lymph # (Auto) 0.80 L (1.20-3.40) K/uL Drew # (Auto) 0.97 H (0.11-0.59) K/uL Eos # (Auto) 0.23 (0.00-0.50) K/uL Baso # (Auto) 0.07 (0.00-0.20) K/uL Immature Gran # (Auto) 0.15 (0.01-0.20) K/uL Polychromasia 1+ Sodium 137 (136-145) mmol/L Potassium 3.6 (3.5-5.1) mmol/L Chloride 107 (98-107) mmol/L Carbon Dioxide 21 (21-32) mmol/L Anion Gap 9 (3-11) BUN 28 H (6-23) mg/dl Creatinine 1.61 H (0.6-1.2) mg/dl Est Cr Clr Drug Dosing 35.1 ml/min eGFR 34.22 BUN/Creatinine Ratio 17.4 (10-20) Glucose 130 H (70-99(Fasting)) mg/dl Lactate 2.6 H* (0.4-2.0) mmol/L Calcium 8.4 L (8.6-10.3) mg/dl Magnesium 1.7 (1.7-2.4) mg/dl Total Bilirubin 0.2 (0.2-1.0) mg/dl AST 11 L (13-39) U/L ALT 9 (7-52) U/L Alkaline Phosphatase 51 (34-104) U/L Ammonia 21.0 (18-72) umol/L Troponin I High Sens 11.7 (0-14) pg/ml Total Protein 5.7 L (6.0-8.3) gm/dl Albumin 3.2 L (3.4-5.0) gm/dl Globulin 2.5 (2.5-4.0) gm/dl Albumin/Globulin Ratio 1.3 (0.9-2) Procalcitonin 2.05 H (0-0.5) ng/ml TSH 6.006 H (0.300-4.500) uIu/ml Free T4 0.87 (0.61-1.60) ng/dl Urine Color Urine Appearance (Clear) Urine pH (4.5-7.5) Ur Specific [place] (1.000-1.030) Urine Protein (Negative) Urine Glucose (UA) (Negative) Urine Ketones (Negative) Urine Blood (Negative) Urine Nitrite (Negative) Urine Bilirubin (Negative) Urine Urobilinogen (Negative) Ur Leukocyte Esterase (Negative) Urine WBC (Auto) (0-5) /hpf Urine RBC (Auto) (0-2) /hpf U Hyaline Cast (Auto) (0-2) /lpf U Epithel Cells (Auto) (0-2) /hpf Urine Bacteria (Auto) (None Seen) Urine Comment Crossmatch See Detail 10/03/25 Range/Units 15:00 WBC (4.8-10.8) K/ul RBC (4.20-5.40) M/uL Hgb (12.0-16.0) g/dL Hct (37.0-47.0) % MCV (80.0-100.0) fL MCH (25.0-34.0) pg MCHC (32.0-36.0) g/dL RDW Std Deviation (36.4-46.3) fL RDW Coeff of [employer] (11.5-14.5) % Plt Count (130-400) K/uL MPV (9.4-12.4) fL Immature Gran % (Auto) % Neut % (Auto) % Lymph % (Auto) % Drew % (Auto) % Eos % (Auto) % Baso % (Auto) % Neut # (Auto) (1.40-6.50) K/uL Lymph # (Auto) (1.20-3.40) K/uL Drew # (Auto) (0.11-0.59) K/uL Eos # (Auto) (0.00-0.50) K/uL Baso # (Auto) (0.00-0.20) K/uL Immature Gran # (Auto) (0.01-0.20) K/uL Polychromasia Sodium (136-145) mmol/L Potassium (3.5-5.1) mmol/L Chloride (98-107) mmol/L Carbon Dioxide (21-32) mmol/L Anion Gap (3-11) BUN (6-23) mg/dl Creatinine (0.6-1.2) mg/dl Est Cr Clr Drug Dosing ml/min eGFR BUN/Creatinine Ratio (10-20) Glucose (70-99(Fasting)) mg/dl Lactate (0.4-2.0) mmol/L Calcium (8.6-10.3) mg/dl Magnesium (1.7-2.4) mg/dl Total Bilirubin (0.2-1.0) mg/dl AST (13-39) U/L ALT (7-52) U/L Alkaline Phosphatase (34-104) U/L Ammonia (18-72) umol/L Troponin I High Sens (0-14) pg/ml Total Protein (6.0-8.3) gm/dl Albumin (3.4-5.0) gm/dl Globulin (2.5-4.0) gm/dl Albumin/Globulin Ratio (0.9-2) Procalcitonin (0-0.5) ng/ml TSH (0.300-4.500) uIu/ml Free T4 (0.61-1.60) ng/dl Urine Color Yellow Urine Appearance Clear (Clear) Urine pH 5.5 (4.5-7.5) Ur Specific [place] 1.014 (1.000-1.030) Urine Protein Trace H (Negative) Urine Glucose (UA) Negative (Negative) Urine Ketones Negative (Negative) Urine Blood Negative (Negative) Urine Nitrite Negative (Negative) Urine Bilirubin Negative (Negative) Urine Urobilinogen Negative (Negative) Ur Leukocyte Esterase Negative (Negative) Urine WBC (Auto) 0-5 (0-5) /hpf Urine RBC (Auto) 0-2 (0-2) /hpf U Hyaline Cast (Auto) 0-2 (0-2) /lpf U Epithel Cells (Auto) 0-2 (0-2) /hpf Urine Bacteria (Auto) None Seen (None Seen) Urine Comment Crossmatch Administered Medications Discontinued Medications Hydrocortisone Sodium Succinate (Hydrocortisone Sod Succinate 100 Mg/2 Ml Vial) 50 mg IV NOW STA Stop: 10/03/25 14:41 Last Admin: 10/03/25 15:01 Dose: 50 mg Documented By: MARLENA Sodium Chloride (Nss) 1,000 mls @ 999 mls/hr IV .Q1H1M NASRA Stop: 10/03/25 14:15 Last Admin: 10/03/25 13:29 Dose: 999 mls/hr Documented By: KELBY Imaging Data Radiologist's Impression: Chest X-Ray 10/03/25 13:08 XR chest 1V portable HISTORY: 70 years-old Female weakness acute weakness COMPARISON: 04/05/2025 TECHNIQUE: AP view of the chest FINDINGS: Cardiac silhouette is upper limits of normal in size. No pneumothorax, pleural effusion or overt pulmonary edema. Subsegmental left basilar opacities favor atelectasis/scarring. Degenerative changes of the shoulders and spine. IMPRESSION: No acute process. ACT 112: Negative or not required by law. The above report was generated using voice recognition software. It may contain grammatical, syntax or spelling errors. Electronically signed by: Darwin Cohen M.D. 10/03/2025 1:[address] 10/03/25 13:10 CT SCAN OF THE BRAIN WITHOUT IV CONTRAST CLINICAL HISTORY: Change in mental status. COMPARISON STUDY: CT of the brain dated 04/25/2024. MRI of the brain dated 11/07/2022. TECHNIQUE: Unenhanced CT scan of the brain is performed from the vertex to the skull base. Images are reviewed in the axial, sagittal, coronal planes. A dose lowering technique was utilized adhering to the principles of ALARA. CT DOSE: 663.26 mGy.cm FINDINGS: Brain parenchyma: There is age-related involutional change noting moderate subcortical and periventricular microangiopathic disease. There is no hemorrhage, mass effect, or evidence of acute territorial ischemia by CT criteria. Camacho-white matter differentiation is preserved. A left parietal calcification is incidentally noted and unchanged. Mineralization is noted in the basal ganglia. No extra-axial fluid collection is seen. Ventricles, sulci, cisterns: Prominent secondary to involutional change. Intracranial vasculature: There is atherosclerotic calcification of the cavernous carotid and vertebral arteries. Calvarium: Unremarkable. Sinuses and mastoids: There is subtotal opacification of the right maxillary antrum. Thickening and sclerosis of the sinus wall indicates chronicity. The visualized paranasal sinuses are otherwise clear. The mastoid air cells are well pneumatized. Orbits: The bony orbits are grossly intact. IMPRESSION: There is no hemorrhage, mass effect, or evidence of acute territorial ischemia by CT criteria. ACT 112: Negative or not required by law. Electronically signed by: Yrn Gomez M.D. 10/03/2025 2:08 PM Discharge Plan Visit Data Chief Complaint: Urinary Symptoms Stated Complaint: UTI, CONFUSION ED Provider: Ivonne Harrison Discharge Problem: Sepsis, UTI (urinary tract infection), Acute metabolic encephalopathy Patient Disposition: Home - Self-Care Condition: Serious Forms Stand Alone Forms: [facility], Important Visit Information Prescriptions Prescriptions: No Action (DME) lancets [OneTouch Delica Plus Lancet] 33 gauge misc See Rx Instructions .ROUTE .MEDSUPPLY Qty: 100 3RF Rx Instructions: test 1 time daily (DME) blood-glucose meter [OneTouch Verio Reflect Meter] Misc See Rx Instructions .Route Qty: 1 0RF Rx Instructions: As directed (DME) OneTouch Verio test strips Strip See Rx Instructions .ROUTE .MEDSUPPLY Qty: 100 3RF Rx Instructions: test 1 time daily (DME) pen needle, diabetic 31 gauge x 1/4" needle See Rx Instructions .Route Qty: 100 10RF Rx Instructions: once per week levothyroxine 125 mcg tablet 125 mcg PO QAM Qty: 90 3RF metoprolol succinate 100 mg tablet extended release 24 hr 100 mg PO QAM Qty: 90 3RF amiodarone 200 mg tablet See Rx Instructions .ROUTE .COMPLEX Qty: 90 3RF Dose Instruction: take 1 tablet by mouth at bedtime Rx Instructions: take 1 tablet by mouth at bedtime Eliquis 5 mg tablet See Rx Instructions .ROUTE .COMPLEX Qty: 180 3RF Dose Instruction: take 1 tablet by mouth twice daily Rx Instructions: take 1 tablet by mouth twice daily gabapentin 300 mg capsule 600 mg PO HS Qty: 180 3RF Rx Instructions: Take two tablets (600 mg) by mouth once before bed. levofloxacin 750 mg tablet 750 mg PO Q48H Qty: 3 0RF omeprazole 20 mg capsule,delayed release(DR/EC) 20 mg PO QAM Qty: 90 3RF levofloxacin 500 mg tablet 500 mg PO DAILY Qty: 3 0RF cyclobenzaprine 10 mg tablet 10 mg PO DAILY PRN (Reason: muscle spasm) Qty: 14 0RF Repatha SureClick 140 mg/mL pen injector 140 mg subcut .q2week Qty: 2 5RF (DME) blood-glucose sensor [FreeStyle Winter 3 Plus Sensor] See Rx Instructions .Route Rx Instructions: Change Sensor every 15 days fosfomycin tromethamine 3 gram packet 1 packet PO Q OTHER DAY Qty: 1 0RF sulfamethoxazole-trimethoprim [Bactrim] 400-80 mg tablet 1 tab PO DAILY Qty: 90 3RF Ozempic 1 mg/dose (4 mg/3 mL) pen injector 1 mg subcut ONCE Qty: 9 5RF Rx Instructions: Inject once a week. magnesium 250 mg Tablet 500 mg PO HS cholecalciferol (vitamin D3) [Vitamin D3] 1,000 unit Capsule 1,000 unit PO QAM acetaminophen [Tylenol Extra Strength] 500 mg Tablet 1,000 mg PO Q6H PRN (Reason: Pain) Advanced Probiotic 625 mg (10 billion cell) capsule 1 cap PO HS prednisone 5 mg tablet 5 mg PO QAM losartan 25 mg tablet 25 mg PO UD Hold Instructions: hold until friday or friday pending blood pressures Rx Instructions: 25mg po daily. Patient hasnt received medication yet estradiol 0.01 % (0.1 mg/gram) cream See Rx Instructions .ROUTE .COMPLEX Qty: 42.5 3RF Rx Instructions: 0.5 appful vaginally daily for two weeks; then decrease to 0.5 appful twice a week Referrals Referrals: Ghada Ramey CRNP [Primary Care Provider] - Discharge Problem: Sepsis Qualifiers: Sepsis type: sepsis due to unspecified organism Sepsis acute organ dysfunction status: with acute organ dysfunction Severe sepsis acute organ dysfunction type: encephalopathy Severe sepsis shock status: without septic shock Qualified Code(s): A41.9 - Sepsis, unspecified organism UTI (urinary tract infection) Qualifiers: Urinary tract infection type: acute cystitis Hematuria presence: without hematuria Qualified Code(s): N30.00 - Acute cystitis without hematuria
--- NOTE | 2025-10-03 13:35 | XRay Report ---
XR chest 1V portable HISTORY: 70 years-old Female weakness acute weakness COMPARISON: 04/05/2025 TECHNIQUE: AP view of the chest FINDINGS: Cardiac silhouette is upper limits of normal in size. No pneumothorax, pleural effusion or overt pulm onary edema. Subsegmental left basilar opacities favor atelectasis/scarring. Degenerative changes of the shoulders and spine. IMPRESSION: No acute process. ACT 112: Negative or not required by law. The above report was generated using voice recognition software. It may contain grammatical, syntax o r spelling errors. Electronically signed by: Darwin Cohen M.D. 10/03/2025 1:34 PM
[2025-10-03 14:02] LABS: Hematocrit (blood only) 23.8 % (37.0-47.0); Hemoglobin 6.8 g/dL (12.0-16.0); Mean Corpuscular Hemoglobin 23.6 pg (25.0-34.0); Mean Corpuscular Volume 82.6 fL (80.0-100.0); Platelet Count 232 K/uL (130-400); RDW Standard Deviation 49.5 fL (36.4-46.3); Red Blood Count 2.88 M/uL (4.20-5.40); White Blood Count 16.80 K/ul (4.8-10.8)
[2025-10-03 14:05] LABS: Alanine Aminotransferase 9 U/L (7-52); Albumin Globulin Ratio 1.3 (0.9-2); Albumin Level 3.2 gm/dl (3.4-5.0); Alkaline Phosphatase 51 U/L (34-104); Anion Gap 9 (3-11); Bilirubin,Total 0.2 mg/dl (0.2-1.0); Blood Urea Nitrogen 28 mg/dl (6-23); Calcium 8.4 mg/dl (8.6-10.3); Carbon Dioxide 21 mmol/L (21-32); Chloride 107 mmol/L (98-107); Creatinine Clr Calc Pharmacy 35.1 ml/min; Globulin 2.5 gm/dl (2.5-4.0); Glucose 130 mg/dl (70-99(Fasting)); Magnesium 1.7 mg/dl (1.7-2.4); Potassium 3.6 mmol/L (3.5-5.1); Sodium 137 mmol/L (136-145); Total Protein 5.7 gm/dl (6.0-8.3)
[2025-10-03 14:08] LABS: Immature Granulocytes # (auto) 0.15 K/uL (0.01-0.20); Immature Granulocytes % (auto) 0.9 %; Polychromasia 1+
--- NOTE | 2025-10-03 14:10 | CT Scan Report ---
CT SCAN OF THE BRAIN WITHOUT IV CONTRAST CLINICAL HISTORY: Change in mental status. COMPARISON STUDY: CT of the brain dated 04/25/2024. MRI of the brain dated 11/07/2022. TECHNIQUE: Unenhanced CT scan of the brain is performed from the vertex to the skull base. Images are reviewed in the axial, sagittal, coronal planes. A dose lowering technique was utilized adhering to the principles of ALARA. CT DOSE: 663.26 mGy.cm FINDINGS: Brain parenchyma: There is age-related involutional change noting moderate subcortical and periventri cular microangiopathic disease. There is no hemorrhage, mass effect, or evidence of acute territorial ischemia by CT criteria. Camacho-white matter differentiation is preserved. A left parietal calcificati on is incidentally noted and unchanged. Mineralization is noted in the basal ganglia. No extra-axial fluid collection is seen. Ventricles, sulci, cisterns: Prominent secondary to involutional change. Intracranial vasculature: There is atherosclerotic calcification of the cavernous carotid and vertebr al arteries. Calvarium: Unremarkable. Sinuses and mastoids: There is subtotal opacification of the right maxillary antrum. Thickening and s clerosis of the sinus wall indicates chronicity. The visualized paranasal sinuses are otherwise clear . The mastoid air cells are well pneumatized. Orbits: The bony orbits are grossly intact. IMPRESSION: There is no hemorrhage, mass effect, or evidence of acute territorial ischemia by CT cri teria. ACT 112: Negative or not required by law. Electronically signed by: Yrn Gomez M.D. 10/03/2025 2:08 PM
[2025-10-03 14:20] LABS: Thyroid Stimulating Hormone 6.006 uIu/ml (0.300-4.500)
[2025-10-03] MEDS ORDERED: SODIUM CHLORIDE 0.9% 100 ML IV PRN (14:32)
--- NOTE | 2025-10-03 14:39 | Electrocardiogram Report ---
Test Reason : Blood Pressure : */* mmHG Vent. Rate : 97 BPM Atrial Rate : 97 BPM P-R Int : 176 ms QRS Dur : 74 ms QT Int : 350 ms P-R-T Axes : 4 18 32 degrees QTcB Int : 444 ms Normal sinus rhythm with sinus arrhythmia Nonspecific ST abnormality Abnormal ECG When compared with ECG of 05-Apr-2025 08:55, No significant change was found Confirmed by Gold Davis ([id number]) on 10/03/2025 2:38:53 PM Referred By: Confirmed By: Gold Davis
[2025-10-03 14:54] LABS: T4 Free Thyroxine 0.87 ng/dl (0.61-1.60)
[2025-10-03] MEDS: HYDROCORTISONE SOD SUCCINATE 100 MG/2 ML VIAL IV STA (15:01)
[2025-10-03 15:19] LABS: Appearance Urine Clear (Clear); Bacteria Urine Automated None Seen (None Seen); Cast Urine Automated 0-2 /lpf (0-2); Epithelial Cell Urine Auto 0-2 /hpf (0-2); Glucose Urine UA Negative (Negative); RBC Urine Automated 0-2 /hpf (0-2); WBC Urine Automated 0-5 /hpf (0-5)
--- NOTE | 2025-10-03 15:46 | History & Physical Report ---
Date of Service October 03, 2025 Assessment & Plan (1) UTI (urinary tract infection): Plan: ESBL E. coli isolated in urine culture obtained September 26. Continue Zosyn started in the ED, day 1. Await blood culture results (2) Acute metabolic encephalopathy: Plan: Supportive care. Treat underlying UTI (3) Iron deficiency anemia: Plan: Iron level ordered and pending. Check fecal occult blood. Transfusion ordered in the ED for hemoglobin 6.8. Serial labs (4) AISHWARYA (acute kidney injury): Plan: Mild on admission. Creatinine 1.6 with baseline around 1.2-1.3. IV fluids. Zamorano catheter for accurate urine output measurements (5) Chronic steroid use: Plan: She is prednisone dependent. IV hydrocortisone for now (6) Paroxysmal atrial fibrillation: Plan: Currently in normal sinus rhythm. Telemetry (7) Type 2 diabetes mellitus: Plan: He currently NPO. Sliding scale coverage ordered. Plan Hopeful discharge back to home within the next 3 to 4 days. OT and PT evaluations will be ordered when appropriate History of Present Illness Chief Complaint: Altered mental status Primary Care Provider: WILLIAN Rice 70-year-old white female who presents with altered mental status and lethargy. Her states that she gets like this when she has a urinary tract infection. Most recent urinary culture reveals ESBL E. coli which was obtained on September 26, 2 days ago. She was administered Zosyn in the ED. She is steroid-dependent with rheumatoid arthritis. She also has chronic anemia probably from iron deficiency associated with the Eliquis therapy. No overt melena or hematochezia. She also has acute kidney injury which is mild with creatinine currently 1.6 and baseline around 1.2-1.3. Admission head CT scan is negative. EKG reveals normal sinus rhythm and white blood cell count is elevated at 16,000. She is admitted for further evaluation and treatment Allergies Allergy/AdvReac Type Severity Reaction Status Date / Time tetracycline Allergy Severe Facial rash Verified 08/08/25 09:03 methenamine Allergy Intermediate Swelling Verified 08/08/25 09:03 of Lip/Tongue/Throat Ceqtkat-ZKZ-OfO Reductase AdvReac Intermediate LE edema Verified 08/08/25 09:03 Inhibitor [Lmyzaay-Ixp-Kqw Reductase Inhibitor] morphine AdvReac Mild Nausea Verified 08/08/25 09:03 oxycodone AdvReac Mild Drowsy Verified 08/08/25 09:03 nitrofurantoin AdvReac Vomiting Verified 08/08/25 09:03 [From Macrobid] Home Medications Medication Instructions Recorded Confirmed Type cholecalciferol (vitamin D3) 25 1,000 unit PO QAM 10/26/18 08/08/25 History mcg (1,000 unit) capsule (Vitamin D3) magnesium 250 mg tablet 500 mg PO HS 10/26/18 08/08/25 History acetaminophen 500 mg tablet 1,000 mg PO Q6H PRN Pain 12/24/18 08/08/25 History (Tylenol Extra Strength) L.acidop,casei,lactis,rham-B.lact,reyes 1 cap PO HS 12/12/22 08/08/25 History 625 mg (10 billion cell) capsule (Advanced Probiotic) OneTouch Delica Plus Lancet 33 #100 ea 05/21/23 08/08/25 Rx gauge (lancets) OneTouch Verio Reflect Meter #1 ea 05/21/23 08/08/25 Rx (blood-glucose meter) OneTouch Verio test strips (blood #100 ea 05/21/23 08/08/25 Rx sugar diagnostic) prednisone 5 mg tablet 5 mg PO QAM 01/30/24 08/08/25 History cyclobenzaprine 10 mg tablet 10 mg PO DAILY PRN muscle spasm 08/23/24 08/08/25 Rx #14 tabs semaglutide 1 mg/dose (4 mg/3 mL) 1 mg (0.75 mL) subcut ONCE #9 mL 08/30/24 08/08/25 Rx subcutaneous pen injector (Ozempluis m) pen needle, diabetic 31 gauge x #100 ea 10/11/24 08/08/25 Rx 1/4" levothyroxine 125 mcg tablet 125 mcg PO QAM #90 tabs 12/09/24 08/08/25 Rx evolocumab 140 mg/mL subcutaneous 140 mg subcut .q2week #2 mL 02/04/25 08/08/25 Rx pen injector (Stephanie Chou) metoprolol succinate 100 mg 100 mg PO QAM #90 tabs 02/15/25 08/08/25 Rx tablet,extended release 24 hr losartan 25 mg tablet 25 mg PO UD 03/08/25 08/08/25 History blood-glucose sensor [FreeStyle 03/14/25 08/08/25 History Winter 3 Plus Sensor] estradiol 0.01% (0.1 mg/gram) See Rx Instructions .Route 04/08/25 08/08/25 Rx vaginal cream .COMPLEX #42.5 grams fosfomycin tromethamine 3 gram 1 packet PO Q OTHER DAY 3 doses #1 05/10/25 08/08/25 Rx oral packet ea sulfamethoxazole 400 1 tab PO DAILY #90 tabs 05/10/25 08/08/25 Rx mg-trimethoprim 80 mg tablet (Bactrim) amiodarone 200 mg tablet See Rx Instructions .Route 07/29/25 08/08/25 Rx .COMPLEX #90 tabs apixaban 5 mg tablet (Eliquis) See Rx Instructions .Route 08/08/25 Rx .COMPLEX #180 tabs gabapentin 300 mg capsule 600 mg (2 x 300 mg) PO HS #180 caps 08/09/25 Rx levofloxacin 750 mg tablet 750 mg PO Q48H #3 tabs 08/31/25 Rx omeprazole 20 mg capsule,delayed 20 mg PO QAM #90 caps 09/14/25 Rx release levofloxacin 500 mg tablet 500 mg PO DAILY #3 tabs 09/28/25 Rx Past Med/Surg History Problem List (Updated 10/03/25 @ 15:44 by Robin Núñez MD) Type 2 diabetes mellitus Paroxysmal atrial fibrillation Iron deficiency anemia Acute metabolic encephalopathy (Acute) UTI (urinary tract infection) (Acute) Sepsis (Acute) Frequent urinary tract infections Acute dehydration (Acute) AISHWARYA (acute kidney injury) (Acute) Metabolic encephalopathy Nausea & vomiting (Acute) Sleep apnea Exertional shortness of breath Steroid dependent Hypersomnia Abnormal chest CT History of arthroscopic surgery of elbow Operation Date: 09/02/24 08:20 Actual Procedures p Right Elbow Arthroscopy, Loose Body Removal(Right) - Naresh Cox MD Elbow injury Olecranon bursitis Loose body in right elbow Spinal stenosis of lumbar region with radiculopathy Neurogenic claudication due to lumbar spinal stenosis Elbow effusion Dyslipidemia Medial epicondylitis, right elbow Osteoarthritis of right elbow Encounter for pre-operative examination Type 2 diabetes mellitus with insulin therapy Radiating chest pain 12/28/22 Paroxysmal atrial fibrillation x2 cardioversion 12/2022 Chronic heart failure with preserved ejection fraction Diabetes mellitus with neuropathy Diabetes mellitus with nephropathy Statin myopathy Mitral stenosis Thoracic compression fracture Ischemic stroke Immunosuppression due to drug therapy (Acute) *Prednisone daily* Vitamin D deficiency (Chronic) Hypothyroidism Rheumatoid arthritis Medical History Severe sepsis Failure of outpatient treatment History of recurrent urinary tract infection Hx of myocardial infarction per medical history - pt denies Hx of renal calculi Hypothyroidism Dyslipidemia History of diverticulitis CHF (congestive heart failure) History of atrial fibrillation x2 cardioversion 12/2022 Chronic steroid use On anticoagulant therapy History of cardioversion 12/13/22 and 12/31/22 ([facility]) History of stroke Vertebrobasilar artery brainstem stroke 2020, slight residual right sided weakness Given TPA on 04/21/2021 with resolution of symptoms History of recent blood transfusion 09/18/22 @ [facility] History of COVID-19 2020- hospitalized at [facility] for 9 days, no issues now GERD (gastroesophageal reflux disease) Anxiety Stenosis of left internal carotid artery 50-69% stenosis of left ICA per 04/2021 neck CTA Stenosis of left vertebral artery Approximately 90% stenosis within V4 segment of left vertebral artery per 04/21/2021 neck CTA History of MRSA infection lumbar surgical incision s/p vanco/ceftriaxone/bactrim per 04/2019 [facility] discharge summary 2022 - positive nasal swab Lumbar radiculopathy Spinal stenosis Diabetes mellitus type II, controlled IDDM Surgical History S/P lumbar fusion L5-S1 decompression and fusion with revision and hardware removal H/O exploratory laparotomy (04/26/24) Diagnostic Laparoscopy, drainage of intra-abdominal abcesses and lysis of adhesions (Not Applicable) - German Shultz DO History of lithotripsy 03/2023 at [facility] --> right kidney stone History of esophagogastroduodenoscopy (EGD) Hx of colonoscopy Hx laparoscopic cholecystectomy (02/12/23) Robotic Assisted Laparoscopic Cholecystectomy (Not Applicable) - Otto Fish DO History of ERCP w/stent placement; s/p stent removal also History of lumbar surgery Lumbar Spine Wound Revision 2019 Status post laminectomy with spinal fusion L2-L5 laminectomy/fusion (12/24/18): Grade view 1, MAC#3, ETT 7.0 Hx of tonsillectomy History of x2 History of total left knee replacement History of hysterectomy total Family History Father Diabetes Lung cancer Cancer Hypertension Mother Malignant neoplasm of brain Diabetes Brain tumor Cancer Hypertension Aunt Breast cancer Sister Hypertension Other No family history of adverse response to anesthesia Denies family history of Ovarian cancer Prostate cancer Myocardial infarction Colorectal cancer Social History Smoking Status: Never smoker Second Hand Exposure: Yes (hx); Do You Dip or Chew Tobacco: No; Hx Alcohol Use: Yes Alcohol type: wine Alcohol Intake Frequency: 2-4 x/Month Hx Substance Use: No Preferred Language: Belarusian Communication Ability: Effective Visual Impairment: No Limitations Hearing Ability: Normal Child Development Assistant Required: No Beliefs That Will Affect Care: None marital status: Current Living Situation: Spouse Current Living Situation Comment: 1 level home current occupational status: retired How many Children do You have: 2 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 Feels Safe at Home: Yes Childhood Exposure to Second-Hand Smoke: Yes Diet: gluten free caffeine: Yes Dental Care, Regularly: Yes Physical Activity Frequency: 5-6 Times per Week Physical Activity Frequency Comment: gym Seatbelt Use: always Sunscreen Use: Yes Do you think of yourself as: straight/heterosexual Assistive Devices: Cane Review of Systems 2 Review of Systems: The patient is lethargic and encephalopathic and unable to answer any questions regarding review of systems at this time Physical Exam 2 Physical Exam: General-lethargic and encephalopathic. No current fever HEENT-head atraumatic and normocephalic, pupils equal and reactive to light, extraocular muscles intact Neck-no lymphadenopathy or thyromegaly, trachea midline Chest-clear to auscultation. No rales, wheezing or rhonchi Cardiac-regular rate and rhythm, normal S1 and S2 Abdomen-normal bowel sounds, no hepatosplenomegaly Extremities-no cyanosis, clubbing, or edema Neuro-cranial nerves II through XII intact, able to move all 4 extremities. No apparent focal motor deficits Psych-encephalopathic. Unable to assess Results & Data Results & Data Vital Signs (Past 12 Hours) Vital Signs Temp Pulse Pulse Resp BP BP Pulse Ox 10/03/25 15:12 88 13 120/83 94 10/03/25 15:00 86 15 94 10/03/25 14:30 88 17 95 10/03/25 14:00 87 25 H 107/55 L 96 10/03/25 14:00 87 23 107/55 L 95 10/03/25 13:30 90 21 124/59 L 95 10/03/25 13:20 95 10/03/25 13:00 94 H 19 93/51 L 96 10/03/25 12:49 95 H 10/03/25 12:43 37.0 C 110 H 13 117/67 93 O2 Del Method 10/03/25 15:12 10/03/25 15:00 10/03/25 14:30 10/03/25 14:00 10/03/25 14:00 Room Air 10/03/25 13:30 10/03/25 13:20 Room Air 10/03/25 13:00 10/03/25 12:49 10/03/25 12:43 Room Air Laboratory Results 10/03/25 12:39 10/03/25 12:39 Code Status & VTE Plan Code Status Full code PG Care Time/CCT Total # of Minutes Spent Total Time Spent with Patient: Total time spent is greater than 50% in coordination of care (as documented) at patient's floor/unit and/or counseling patient: Coding Level of Care Code 45770 INT INP/OBS CARE 375MIN Diagnoses UTI (urinary tract infection) N30.00 Hematuria presence: without hematuria Urinary tract infection type: acute cystitis Acute metabolic encephalopathy G93.41 Iron deficiency anemia D50.9 AISHWARYA (acute kidney injury) N17.9 Chronic steroid use Paroxysmal atrial fibrillation I48.0 Type 2 diabetes mellitus E11.9 (1) UTI (urinary tract infection) Hematuria presence: without hematuria Urinary tract infection type: acute cystitis Qualified Code(s): N30.00 - Acute cystitis without hematuria
[2025-10-03 15:51] LABS: Chlamydia pneumoniae PCR Not Detected (NotDetected); Coronavirus 229E PCR Not Detected (NotDetected); Coronavirus CoV-2 (COVID19)PCR Not Detected (NotDetected); Coronavirus HKU1 PCR Not Detected (NotDetected); Coronavirus NL63 PCR Not Detected (NotDetected); Coronavirus OC43PCR Not Detected (NotDetected); Human Metapneumovirus PCR Not Detected (NotDetected); Parainfluenza Virus 1 PCR Not Detected (NotDetected); Parainfluenza Virus 2 PCR Not Detected (NotDetected); Parainfluenza Virus 3 PCR Not Detected (NotDetected); Parainfluenza Virus 4 PCR Not Detected (NotDetected); Respiratory Syncytial VirusPCR Not Detected (NotDetected); Rhinovirus/Enterovirus PCR Not Detected (NotDetected)
[2025-10-03] MEDS: PIPERACILLIN/TAZOBACTAM 4.5 GM/100 ML BAG IV ONE (16:26)
[2025-10-03] MEDS: SODIUM CHLORIDE 0.9% 1,000 ML IV ONE (16:27)
[2025-10-03] MEDS ORDERED: GLUCAGON FOR INJ 1 MG VIAL SQ PRN (18:39)
[2025-10-03] MEDS ORDERED: HYDROCORTISONE SOD SUCCINATE 100 MG/2 ML VIAL IV SCH (18:39)
[2025-10-03] MEDS ORDERED: DEXTROSE 50% 50 ML SYRINGE IV PRN (18:39)
[2025-10-03] MEDS ORDERED: GLUCOSE 10 TAB/TUBE PO PRN (18:39)
[2025-10-03] MEDS ORDERED: ONDANSETRON INJ 2 MG/ML 2 ML VIAL IV PRN (18:39)
[2025-10-03] MEDS ORDERED: CARBOHYDRATES FOR HYPOGLYCEMIA PO PRN (18:39)
[2025-10-03] MEDS ORDERED: GLUCOSE 40% GEL 15 GM TUBE PO PRN (18:39)
[2025-10-03] MEDS: INSULIN ASPART PER UNIT CHARGE SC SCH (20:51)
[2025-10-03] MEDS: PIPERACILLIN/TAZOBACTAM 4.5 GM/100 ML BAG IV SCH (23:05)
[2025-10-04] MEDS: HYDROCORTISONE SOD 25 MG in SYRINGE 0 ML IV SCH (00:06)
[2025-10-04] MEDS: LEVOTHYROXINE SODIUM 125 MCG TABLET PO SCH (05:33)
[2025-10-04 05:48] LABS: Hematocrit (blood only) 24.6 % (37.0-47.0); Hemoglobin 7.5 g/dL (12.0-16.0); Immature Granulocytes # (auto) 0.07 K/uL (0.01-0.20); Immature Granulocytes % (auto) 0.5 %; Mean Corpuscular Hemoglobin 24.8 pg (25.0-34.0); Mean Corpuscular Volume 81.2 fL (80.0-100.0); Platelet Count 212 K/uL (130-400); RDW Standard Deviation 47.1 fL (36.4-46.3); Red Blood Count 3.03 M/uL (4.20-5.40); White Blood Count 14.63 K/ul (4.8-10.8)
[2025-10-04 06:09] LABS: Anion Gap 7.0 (3-11); Blood Urea Nitrogen 20.0 mg/dl (6-23); Calcium 6.6 mg/dl (8.6-10.3); Carbon Dioxide 18.0 mmol/L (21-32); Chloride 117.0 mmol/L (98-107); Creatinine Clr Calc Pharmacy 47.1 ml/min; Glucose 106.0 mg/dl (70-99(Fasting)); Potassium 3.3 mmol/L (3.5-5.1); Sodium 142.0 mmol/L (136-145)
[2025-10-04 06:14] LABS: Polychromasia 1+
[2025-10-04 07:59] LABS: Iron < 10 mcg/dl (35-150)
[2025-10-04] MEDS: AMIODARONE 200 MG TAB PO SCH (08:11)
[2025-10-04] MEDS: APIXABAN 5 MG TABLET PO SCH (08:12)
[2025-10-04] MEDS: METOPROLOL SUCC 50MG EXT REL TAB PO SCH (08:12)
[2025-10-04] MEDS: CHOLECALCIFEROL 25 MCG (1000 UNITS) TAB PO SCH (08:12)
[2025-10-04] MEDS: POTASSIUM CHLORIDE 40 MEQ in SODIUM CHLORIDE 0.9% 1,000 ML IV SCH (08:17)
[2025-10-04] MEDS: CALCIUM GLUCONATE 1,000 MG/60 ML BAG IV SCH (09:36)
[2025-10-04] MEDS: POTASSIUM CHLORIDE CRTAB 20 MEQ TABCR PO SCH (09:37)
[2025-10-04] MEDS: IRON SUCROSE 200 MG in SODIUM CHLORIDE 0.9% 100 ML IV ONE (10:19)
--- NOTE | 2025-10-04 10:33 | Hospitalist Progress Note ---
Date of Service October 04, 2025 Assessment & Plan (1) UTI (urinary tract infection): Plan: ESBL E. coli isolated in urine culture obtained September 26. Continue Zosyn, day 2. Blood cultures remain negative to date (2) Acute metabolic encephalopathy: Plan: Now resolved. Continue supportive care. Treat underlying UTI (3) Iron deficiency anemia: Plan: Iron level is low as expected. Fecal occult blood test is pending. No overt melena or hematochezia. Hemoglobin improved to 9.0 after transfusion and is 7.5 today, October 04. This may simply be dilutional. Will repeat H&H again this afternoon and follow daily. Serial labs (4) AISHWARYA (acute kidney injury): Plan: Mild on admission. Now resolved. Creatinine has improved to 1.2 today, October 04. IV fluids have been discontinued. (5) Chronic steroid use: Plan: She is prednisone dependent. IV hydrocortisone switch back to oral prednisone therapy at a higher than her usual dose today, October 04. This will eventually be decreased further to her usual oral dose before she goes home (6) Paroxysmal atrial fibrillation: Plan: Currently in normal sinus rhythm. Telemetry (7) Type 2 diabetes mellitus: Plan: ADA diet started today, October 04. Continue sliding scale insulin coverage (8) Hypokalemia: Plan: Mild. Oral potassium replacement ordered. Serial labs Plan Anticipate eventual discharge back to her home if blood cultures remain negative sometime within the next day or 2. Admission and Anticipated Discharge Date Admission Date: October 03, 2025 Subjective Much improved. She is now alert and oriented. IV fluids have been discontinued and a diet has been ordered. Unfortunately she is iron deficient and parenteral iron replacement has been started. Creatinine improved to 1.2. She has been switched back from parenteral hydrocortisone to oral prednisone. Hemoglobin improved to 9.0 after 1 unit packed red blood cells and is down to 7.5 today, October 04. No overt GI hemorrhage. This may simply be delusional. Fecal occult blood ordered. She remains on intravenous Zosyn, day 2. Oral potassium replacement and parenteral calcium replacement ordered. Review of Systems 2 Review of Systems: Constitutionalno fever or chills ENTno blurred vision, no double vision, no epistaxis, no sore throat Respiratoryno cough, no wheezing, no shortness of breath Cardiacno palpitations, no chest pain, no syncope Ajit nausea, vomiting, diarrhea, melena, hematochezia GUno urinary retention, no urinary incontinence, no dysuria, no hematuria Musculoskeletalno joint pain, no muscle tenderness Skinno bruising, no rashes, no pruritus Neurono isolated weakness, no paresthesia, no weakness Psychno depression, no anxiety Physical Exam 2 Physical Exam: General-alert and oriented x3, no fever, no chills HEENT-head atraumatic and normocephalic, pupils equal and reactive to light, extraocular muscles intact Neck-no lymphadenopathy or thyromegaly, trachea midline Chest-clear to auscultation. No rales, wheezing or rhonchi Cardiac-regular rate and rhythm, normal S1 and S2 Abdomen-normal bowel sounds, no hepatosplenomegaly Extremities-no cyanosis, clubbing, or edema Neuro-cranial nerves II through XII intact, motor and sensory function within normal limits, strength symmetrical, no focal deficits Psych-normal affect, normal mood Results & Data Results & Data Vital Signs (Past 12 Hours) Vital Signs Pulse Pulse Resp BP Pulse Ox O2 Del Method 10/04/25 07:51 85 10/04/25 05:44 89 157/72 H 93 Room Air 10/04/25 03:48 Room Air 10/04/25 03:38 115/75 10/03/25 23:00 79 20 124/67 94 Room Air 10/03/25 22:46 82 Laboratory Results 10/04/25 03:50 10/04/25 03:50 PG Care Time/CCT Total # of Minutes Spent Total Time Spent with Patient: Total time spent is greater than 50% in coordination of care (as documented) at patient's floor/unit and/or counseling patient: Coding Level of Care Code 82457 SUB INP/OBS CARE 3/50MIN Diagnoses UTI (urinary tract infection) N30.00 Hematuria presence: without hematuria Urinary tract infection type: acute cystitis Acute metabolic encephalopathy G93.41 Iron deficiency anemia D50.9 AISHWARYA (acute kidney injury) N17.9 Chronic steroid use Paroxysmal atrial fibrillation I48.0 Type 2 diabetes mellitus E11.9 Hypokalemia E87.6 (1) UTI (urinary tract infection) Hematuria presence: without hematuria Urinary tract infection type: acute cystitis Qualified Code(s): N30.00 - Acute cystitis without hematuria
[2025-10-04 16:57] LABS: Hematocrit (blood only) 25.4 % (37.0-47.0); Hemoglobin 7.6 g/dL (12.0-16.0)
[2025-10-05 06:24] LABS: Hematocrit (blood only) 27.8 % (37.0-47.0); Hemoglobin 8.3 g/dL (12.0-16.0); Immature Granulocytes # (auto) 0.20 K/uL (0.01-0.20); Immature Granulocytes % (auto) 1.5 %; Mean Corpuscular Hemoglobin 24.3 pg (25.0-34.0); Mean Corpuscular Volume 81.3 fL (80.0-100.0); Platelet Count 232 K/uL (130-400); RDW Standard Deviation 48.8 fL (36.4-46.3); Red Blood Count 3.42 M/uL (4.20-5.40); White Blood Count 12.94 K/ul (4.8-10.8)
[2025-10-05 06:56] LABS: Anion Gap 8.0 (3-11); Blood Urea Nitrogen 15.0 mg/dl (6-23); Calcium 8.6 mg/dl (8.6-10.3); Carbon Dioxide 24.0 mmol/L (21-32); Chloride 106.0 mmol/L (98-107); Creatinine Clr Calc Pharmacy 42.2 ml/min; Glucose 131.0 mg/dl (70-99(Fasting)); Potassium 3.8 mmol/L (3.5-5.1); Sodium 138.0 mmol/L (136-145)
[2025-10-05] MEDS: IRON SUCROSE 200 MG in SODIUM CHLORIDE 0.9% 100 ML IV ONE (10:51)
[2025-10-05] MEDS: LOSARTAN POTASSIUM 25 MG TAB PO SCH (10:51)
--- NOTE | 2025-10-05 11:52 | Hospitalist Progress Note ---
Date of Service October 05, 2025 Assessment & Plan (1) UTI (urinary tract infection): Plan: ESBL E. coli isolated in urine culture obtained September 26. Continue Zosyn, day 3. Blood cultures remain negative to date (2) Acute metabolic encephalopathy: Plan: Now resolved. Continue supportive care. Treat underlying UTI (3) Iron deficiency anemia: Plan: Iron level is low as expected. Fecal occult blood test still has not been done. No overt melena or hematochezia. Hemoglobin improved to 9.0 after transfusion and is now 8.3 with iron replacement. Serial labs (4) AISHWARYA (acute kidney injury): Plan: Mild on admission. Now resolved. IV fluids have been discontinued. (5) Chronic steroid use: Plan: She is prednisone dependent. IV hydrocortisone switch back to oral prednisone therapy at a higher than her usual dose. This will eventually be decreased to her usual once daily dosing at the time of discharge. (6) Paroxysmal atrial fibrillation: Plan: Currently in normal sinus rhythm. Telemetry (7) Type 2 diabetes mellitus: Plan: ADA diet. Sliding scale insulin coverage (8) Hypokalemia: Plan: Corrected with oral replacement. Serial labs Plan Anticipate discharge to home tomorrow, October 06 Admission and Anticipated Discharge Date Admission Date: October 03, 2025 Subjective Alert and oriented. No distress. Losartan has been restarted for elevated blood pressure. Continue parenteral iron replacement with Venofer, day 2 of 3. Calcium corrected to 8.6 and hemoglobin is stable now at 8.3. Blood cultures are negative. She remains on intravenous Zosyn, day 3 for the ESBL E. coli UTI. She will be switched to an oral antibiotic at discharge. She currently is on prednisone 5 mg twice a day which will be decreased to her usual once daily dosing at discharge Review of Systems 2 Review of Systems: Constitutionalno fever or chills ENTno blurred vision, no double vision, no epistaxis, no sore throat Respiratoryno cough, no wheezing, no shortness of breath Cardiacno palpitations, no chest pain, no syncope Ajit nausea, vomiting, diarrhea, melena, hematochezia GUno urinary retention, no urinary incontinence, no dysuria, no hematuria Musculoskeletalno joint pain, no muscle tenderness Skinno bruising, no rashes, no pruritus Neurono isolated weakness, no paresthesia, no weakness Psychno depression, no anxiety Physical Exam 2 Physical Exam: General-alert and oriented x3, no fever, no chills HEENT-head atraumatic and normocephalic, pupils equal and reactive to light, extraocular muscles intact Neck-no lymphadenopathy or thyromegaly, trachea midline Chest-clear to auscultation. No rales, wheezing or rhonchi Cardiac-regular rate and rhythm, normal S1 and S2 Abdomen-normal bowel sounds, no hepatosplenomegaly Extremities-no cyanosis, clubbing, or edema Neuro-cranial nerves II through XII intact, motor and sensory function within normal limits, strength symmetrical, no focal deficits Psych-normal affect, normal mood Results & Data Results & Data Vital Signs (Past 12 Hours) Vital Signs Temp Pulse Resp BP Pulse Ox O2 Del Method O2 Flow Rate 10/05/25 10:54 36.9 C 85 18 183/98 H 98 Room Air 10/05/25 07:59 36.9 C 99 H 18 189/75 H 92 Room Air 10/05/25 03:00 91 Nasal Cannula 3 10/05/25 02:54 37.1 C 93 H 16 170/78 H 91 Nasal Cannula 3 Laboratory Results 10/05/25 05:27 10/05/25 05:27 PG Care Time/CCT Total # of Minutes Spent Total Time Spent with Patient: Total time spent is greater than 50% in coordination of care (as documented) at patient's floor/unit and/or counseling patient: Coding Level of Care Code 39748 SUB INP/OBS CARE 3/50MIN Diagnoses UTI (urinary tract infection) N30.00 Hematuria presence: without hematuria Urinary tract infection type: acute cystitis Acute metabolic encephalopathy G93.41 Iron deficiency anemia D50.9 AISHWARYA (acute kidney injury) N17.9 Chronic steroid use Paroxysmal atrial fibrillation I48.0 Type 2 diabetes mellitus E11.9 Hypokalemia E87.6 (1) UTI (urinary tract infection) Hematuria presence: without hematuria Urinary tract infection type: acute cystitis Qualified Code(s): N30.00 - Acute cystitis without hematuria
[2025-10-05] MEDS: ACETAMINOPHEN 1,000 MG/100 ML VIAL IV PRN (19:12)
[2025-10-05] MEDS ORDERED: Nursing to Pharmacy Communication SCH (22:45)
[2025-10-06 06:37] LABS: Hematocrit (blood only) 28.7 % (37.0-47.0); Hemoglobin 8.7 g/dL (12.0-16.0); Immature Granulocytes # (auto) 0.14 K/uL (0.01-0.20); Immature Granulocytes % (auto) 1.5 %; Mean Corpuscular Hemoglobin 24.6 pg (25.0-34.0); Mean Corpuscular Volume 81.3 fL (80.0-100.0); Platelet Count 244 K/uL (130-400); RDW Standard Deviation 48.4 fL (36.4-46.3); Red Blood Count 3.53 M/uL (4.20-5.40); White Blood Count 9.41 K/ul (4.8-10.8)
[2025-10-06 07:14] LABS: Anion Gap 9.0 (3-11); Blood Urea Nitrogen 10.0 mg/dl (6-23); Calcium 9.0 mg/dl (8.6-10.3); Carbon Dioxide 26.0 mmol/L (21-32); Chloride 104.0 mmol/L (98-107); Creatinine Clr Calc Pharmacy 52.5 ml/min; Glucose 140.0 mg/dl (70-99(Fasting)); Potassium 3.6 mmol/L (3.5-5.1); Sodium 139.0 mmol/L (136-145)
[2025-10-06 07:27] VITALS: TEMP 98.4
[2025-10-06] MEDS: LOSARTAN POTASSIUM 50 MG TAB PO SCH (08:55)
[2025-10-06] MEDS: IRON SUCROSE 200 MG in SODIUM CHLORIDE 0.9% 100 ML IV ONE (08:56)
--- NOTE | 2025-10-06 09:33 | Discharge Summary ---
Discharge Summary Date of Service October 06, 2025 Principal Dx & Hospital Course #1 = Principal Diagnosis (1) UTI (urinary tract infection): ESBL E. coli isolated in urine culture obtained September 26. Treated while hospitalized with intravenous Zosyn, day 4. Blood cultures are negative. She will be discharged on oral levofloxacin for 5 more days. (2) Acute metabolic encephalopathy: POA. Now resolved. (3) Iron deficiency anemia: Iron level is low as expected. Fecal occult blood test is negative. No overt melena or hematochezia. She has received 3 days of parenteral iron replacement. Hemoglobin has improved. She will continue with oral iron at discharge (4) AISHWARYA (acute kidney injury): Mild on admission. Now resolved. IV fluids have been discontinued. 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 IV hydrocortisone was switched to prednisone 5 mg twice a day and is decreased back to her usual 5 mg daily dose at discharge. (6) Paroxysmal atrial fibrillation: Currently in normal sinus rhythm. Telemetry (7) Type 2 diabetes mellitus: ADA diet. Sliding scale insulin coverage . Resume usual diabetic management at discharge (8) Hypokalemia: Corrected with oral replacement. Serial labs Plan Home today, October 06 Admission HPI Per Admitting Provider 70-year-old white female who presents with altered mental status and lethargy. Her states that she gets like this when she has a urinary tract infection. Most recent urinary culture reveals ESBL E. coli which was obtained on September 26, 2 days ago. She was administered Zosyn in the ED. She is steroid-dependent with rheumatoid arthritis. She also has chronic anemia probably from iron deficiency associated with the Eliquis therapy. No overt me jocelyn or hematochezia. She also has acute kidney injury which is mild with creatinine currently 1.6 and baseline around 1.2-1.3. Admission head CT scan is negative. EKG reveals normal sinus rhythm and white blood cell count is elevated at 16,000. She is admitted for further evaluation and treatment Discharge Exam General-alert and oriented x3, no fever, no chills HEENT-head atraumatic and normocephalic, pupils equal and reactive to light, extraocular muscles intact Neck-no lymphadenopathy or thyromegaly, trachea midline Chest-clear to auscultation. No rales, wheezing or rhonchi Cardiac-regular rate and rhythm, normal S1 and S2 Abdomen-normal bowel sounds, no hepatosplenomegaly Extremities-no cyanosis, clubbing, or edema Neuro-cranial nerves II through XII intact, motor and sensory function within normal limits, strength symmetrical, no focal deficits Psych-normal affect, normal mood Discharge Plan Discharge Items Patient Disposition: Home - Self-Care Reason For Visit: UTI, ENCEPHALOPATHY Discharge Diagnosis: ESBL E. coli UTI, metabolic encephalopathy, iron deficiency anemia, uncontrolled hypertension, hypocalcemia, hypokalemia Condition on Discharge: Good Activity: Resume your previous activity Non-emergency contact: Primary Care Provider Call non-emergency contact if: your symptoms worsen Follow-up/Referrals: Ghada Ramey CRNP [Primary Care Provider] - Diet: Regular and Heart Healthy Addtl Attending Provider Instructions: Take Levaquin (levofloxacin) antibiotic daily for the next 5 days. Losartan has been increased to 50 mg daily. Amlodipine has been added for better blood pressure control. New prescriptions have been sent to your pharmacy at [facility] in [place]. See your primary care physician as soon as possible for follow-up Pending Studies at Discharge: No Stand-Alone Forms: My [facility] [employer], Smoking Cessation Medications and DC Order Prescriptions: New losartan 50 mg Tablet 50 mg PO QAM Qty: 30 0RF amlodipine 5 mg tablet 5 mg PO DAILY Qty: 30 0RF ferrous gluconate 324 mg (38 mg iron) tablet 324 mg PO BID Qty: 60 0RF prednisone 5 mg Tablet 5 mg PO DAILY Qty: 0 0RF Continued (DME) lancets [OneTouch Delica Plus Lancet] 33 gauge misc See Rx Instructions .ROUTE .MEDSUPPLY Qty: 100 3RF Rx Instructions: test 1 time daily (DME) blood-glucose meter [OneTouch Verio Reflect Meter] Mis See Rx Instructions .Route Qty: 1 0RF Rx Instructions: As directed (DME) OneTouch Verio test strips Strip See Rx Instructions .ROUTE .MEDSUPPLY Qty: 100 3RF Rx Instructions: test 1 time daily (DME) pen needle, diabetic 31 gauge x 1/4" needle See Rx Instructions .Route Qty: 100 10RF Rx Instructions: once per week levothyroxine 125 mcg tablet 125 mcg PO QAM Qty: 90 3RF metoprolol succinate 100 mg tablet extended release 24 hr 100 mg PO QAM Qty: 90 3RF amiodarone 200 mg tablet See Rx Instructions .ROUTE .COMPLEX Qty: 90 3RF Dose Instruction: take 1 tablet by mouth at bedtime Rx Instructions: take 1 tablet by mouth at bedtime Eliquis 5 mg tablet See Rx Instructions .ROUTE .COMPLEX Qty: 180 3RF Dose Instruction: take 1 tablet by mouth twice daily Rx Instructions: take 1 tablet by mouth twice daily gabapentin 300 mg capsule 600 mg PO HS Qty: 180 3RF Rx Instructions: Take two tablets (600 mg) by mouth once before bed. omeprazole 20 mg capsule,delayed release(DR/EC) 20 mg PO QAM Qty: 90 3RF levofloxacin 500 mg tablet 500 mg PO DAILY Qty: 3 0RF cyclobenzaprine 10 mg tablet 10 mg PO DAILY PRN (Reason: muscle spasm) Qty: 14 0RF Repatha SureClick 140 mg/mL pen injector 140 mg subcut .q2week Qty: 2 5RF (DME) blood-glucose sensor [Fiksuyle Winter 3 Plus Sensor] See Rx Instructions .Route Rx Instructions: Change Sensor every 15 days sulfamethoxazole-trimethoprim [Bactrim] 400-80 mg tablet 1 tab PO DAILY Qty: 90 3RF Ozempic 1 mg/dose (4 mg/3 mL) pen injector 1 mg subcut ONCE Qty: 9 5RF Rx Instructions: Inject once a week. magnesium 250 mg Tablet 500 mg PO HS cholecalciferol (vitamin D3) [Vitamin D3] 1,000 unit Capsule 1,000 unit PO QAM acetaminophen [Tylenol Extra Strength] 500 mg Tablet 1,000 mg PO Q6H PRN (Reason: Pain) Advanced Probiotic 625 mg (10 billion cell) capsule 1 cap PO HS estradiol 0.01 % (0.1 mg/gram) cream See Rx Instructions .ROUTE .COMPLEX Qty: 42.5 3RF Rx Instructions: 0.5 appful vaginally daily for two weeks; then decrease to 0.5 appful twice a week Discontinued levofloxacin 750 mg tablet 750 mg PO Q48H Qty: 3 0RF losartan 25 mg tablet 25 mg PO UD Hold Instructions: hold until friday or friday pending blood pressures Rx Instructions: 25mg po daily. Patient hasnt received medication yet Discharge Orders: Discharge Order (Routine); Ordered 10/06/25 Ordered By: Robin Núñez Admission Data Admit Date/Time: 10/03/25 15:30 Attending Provider: Robin Núñez Admit Provider: Robin Núñez Primary Care Provider: Ghada Ramey Other Providers: Robin Núñez Hospital Stay Data Consultations 10/03/25 14:46 ED Decision to Admit Stat Diagnostic Imagining Performed 10/03/25 13:10 CT head/brain wo con Stat Pending Results Patient Have Any Pending Studies at Discharge: No Discharge Instructions Given to Patient (Per Discharging Provider) Take Levaquin (levofloxacin) antibiotic daily for the next 5 days. Losartan has been increased to 50 mg daily. Amlodipine has been added for better blood pressure control. New prescriptions have been sent to your pharmacy at [facility] in [place]. See your primary care physician as soon as possible for follow-up Total Time Total Time Spent Total Time Spent (In Minutes): 45 minutes. Total time included patient exam, discharge planning, medication reconciliation Coding Level of Care Code 18884 INP/OBS DISCH >30 MIN Diagnoses UTI (urinary tract infection) N30.00 Hematuria presence: without hematuria Urinary tract infection type: acute cystitis Acute metabolic encephalopathy G93.41 Iron deficiency anemia D50.9 AISHWARYA (acute kidney injury) N17.9 Chronic steroid use Paroxysmal atrial fibrillation I48.0 Type 2 diabetes mellitus E11.9 Hypokalemia E87.6
[2025-10-06 10:51] VITALS: BP 157/80; PULSE 80; RESP 16; O2SAT 93
== END 2025-10-06 12:06 | disposition home or self-care (01) | DRG 689 ==
LOC: SUATTDRO → ED 12:26 → EDINP 15:30 → 2W 18:39